=== PATIENT | male | born 1940 | race African-American/Black ===

== ENCOUNTER 2017-06-26 11:45 | Inpatient (IN) | payer OTHER, MEDICARE ==
[2017-06-26] MEDS ORDERED: METHYLPREDNISOLONE 125 MG INJ ONE (12:25)
[2017-06-26 12:26] LABS: Absolute Lymphocytes (CBC) 0.6 K/uL (0.7-4.9); Absolute Monocytes 0.9 K/uL (0.1-1.3); Absolute Neutrophil 4.7 K/uL (1.8-8.0); Basophils % 0.8 % (0-1.3); Eosinophils % 3.1 % (0-4.4); Hematocrit 28.7 % (39.6-49.0); Lymphocytes % 9.2 % (15.3-44.8); MCH 30.6 pg (27.0-35.0); MCV 98.7 fL (80-100); MPV 10.7 fL (7.6-11.3); Monocytes % 13.7 % (3.3-12.3); RBC Red Blood Cell Count 2.91 M/uL (4.33-5.43)
[2017-06-26] MEDS ORDERED: LEVALBUTEROL 1.25 MG/3 ML NEB ONE ×2 (12:26→16:28)
[2017-06-26 12:31] LABS: Protime INR 1.18
[2017-06-26 12:37] LABS: Potassium 3.7 mEq/L (3.6-5.0)
--- NOTE | 2017-06-26 12:39 | EKG ---
Test Date: 2017-06-26 Test Time: 11:48:37 Coal Miner: BARBARA MEASUREMENT RESULTS: Intervals: Rate: 111 OR: QRSD: 144 QT: 412 QTc: 560 Kersey: P: 2 OR: QRS: -89 T: 64 INTERPRETIVE STATEMENTS: Atrial-sensed ventricular-paced rhythm tracking sinus tachycardia Biventricular pacemaker detected Abnormal ECG Compared to ECG 06/17/2017 06:36:18 Sinus tachycardia has replaced sinus rhythm Electronically Signed On 06-26-17 12:39:20 CDT by Thomas Middleton
[2017-06-26 12:45] LABS: Albumin 3.5 g/dL (3.2-5.5); Bilirubin Direct 0.1 mg/dL (0-0.2); Bilirubin Total 0.7 mg/dL (0.3-1.2); Magnesium 1.9 mg/dL (1.8-2.5); Protein, Total 7.1 g/dL (6.0-8.3)
--- NOTE | 2017-06-26 12:47 | RAD REPORT ---
EXAM DESCRIPTION: RAD - Chest Single View - 06/26/2017 12:38 pm CLINICAL HISTORY: Difficulty breathing COMPARISON: 06/17/2017 FINDINGS: Portable technique limits examination quality. Mild interstitial pulmonary edema suspected. Linear opacity in the right mid lung noted. The heart is moderately enlarged in size. Multilead pacer/defibrillator device is present. Tracheostomy tube is i dentified. No displaced fractures. IMPRESSION: Mild CHF/ volume overload pattern. Linear opacity in the right mid lung may represent at electasis or early developing pneumonia.
--- NOTE | 2017-06-26 14:49 | ER ---
Nurse's Notes [facility] Name: Sergio Perez Age: 77 yrs Sex: Male : 1940 Arrival Date: 06/26/2017 Time: 11:48 Bed 19 Private MD: Diagnosis: Acute combined systolic (congestive) and diastolic (congestive) heart failure;Chronic kidney disease (CKD);Pneumonia due to other specified bacteria-suspected Presentation: 06/26 11:48 Presenting complaint: EMS states: c/o SOB since last night 11PM, went to dialysis this em morning and completed 4 hour treatment, pulled 3.3 L, EMS vitals: BP 110/63, BGL 179 gave A\T\A treatment. Transition of care: patient was received from another setting of care (ambulatory specialty care practice), [facility]. Onset of symptoms was June 25, 2017. Care prior to arrival: Medication(s) given: Albuterol Neb x 1, Atrovent Neb x 1. 11:48 Method Of Arrival: EMS: [facility] em 11:48 Acuity: KARLENE 3 hj Triage Assessment: 11:54 General: Appears uncomfortable, ill, Behavior is calm, cooperative, Reports SOB. Pain: em Denies pain. Historical: - Allergies: 11:54 Iodine; em 11:54 SHELLFISH; em - Home Meds: 11:54 allopurinol 300 mg Oral tab 1 tab once daily [Active]; amiodarone 100 mg Oral tab once em daily [Active]; Claritin 10 mg Oral tab 1 tab once daily [Active]; DuoNeb Inhl as needed [Active]; ferrous sulfate 325 mg (65 mg iron) Oral tab twice a day [Active]; nitroglycerin 0.4 mg SL subl 1 tab as needed [Active]; omeprazole 20 mg Oral TbEC daily [Active]; Plavix 75 mg Oral tab 1 tab once daily [Active]; Renvela Oral [Active]; Flonase Nasal daily [Active]; Vitamin D3 2,000 unit Oral cap daily [Active]; - PMHx: 11:54 CHF; COPD; Diabetes - NIDDM; Dialysis; ESRD; GERD; Gout; Hypertension; Pacemaker; with em defib; - Immunization history:: Adult Immunizations up to date. - Social history:: Smoking status: Patient/guardian denies using tobacco. Screenin:59 Abuse screen: Denies threats or abuse. Nutritional screening: No deficits noted. em Tuberculosis screening: No symptoms or risk factors identified. Fall Risk None identified. Assessment: 11:59 General: Appears uncomfortable, ill, Behavior is calm, cooperative. Pain: Denies pain. em Neuro: Level of Consciousness is awake, alert, obeys commands, Oriented to person, place, time, situation. Cardiovascular: Denies chest pain, nausea, vomiting, Heart tones S1 S2 present Capillary refill < 3 seconds Patient's skin is warm and dry. Respiratory: Airway is patent via trache Respiratory effort is even, unlabored, Breath sounds with wheezes bilaterally. Onset: The symptoms/episode began/occurred 11pm, the patient has moderate shortness of breath. GI: Abdomen is round Abd is soft and non tender X 4 quads. : No signs and/or symptoms were reported regarding the genitourinary system. EENT: No signs and/or symptoms were reported regarding the EENT system. Derm: Skin is intact, Skin is normal. Musculoskeletal: Range of motion: intact in all extremities. 12:00 Reassessment: i agree with the assessment of ALEXIS Marie;. hj 13:22 Reassessment: Patient appears in no apparent distress at this time. Patient and/or em family updated on plan of care and expected duration. Pain level reassessed. Patient is alert, oriented x 3, equal unlabored respirations, skin warm/dry/pink. Patient states symptoms have not improved. 14:20 Reassessment: Patient appears in no apparent distress at this time. Patient and/or em family updated on plan of care and expected duration. Pain level reassessed. Patient is alert, oriented x 3, equal unlabored respirations, skin warm/dry/pink. Patient states feeling better. Vital Signs: 11:57 BP 119 / 98; Pulse 107; Resp 26; Temp 98.9(O); Pulse Ox 99% on 2 lpm NC; Weight 139.25 em kg; Height 5 ft. 11 in. (180.34 cm); Pain 0/10; 12:45 BP 115 / 85; Pulse 108; Resp 26; Pulse Ox 99% on 2 lpm NC; em 13:32 BP 122 / 91; Pulse 114; Resp 24; Pulse Ox 97% on 2 lpm NC; em 14:01 BP 135 / 77; Pulse 105; Resp 26; Pulse Ox 100% on 2 lpm NC; em 15:00 BP 145 / 84; Pulse 104; Resp 24; Pulse Ox 99% on 2 lpm NC; Pain 0/10; em 16:15 BP 131 / 67; Pulse 103; Resp 18; Pulse Ox 100% on 2 lpm NC; Pain 0/10; em 11:57 Body Mass Index 42.82 (139.25 kg, 180.34 cm) em ED Course: 11:48 Patient arrived in ED. em 11:48 Frank Cole LVN is Primary Nurse. em 11:54 Colleen Salvador MD is Attending Physician. ma2 11:57 Arm band placed on. em 11:59 Patient has correct armband on for positive identification. Placed in gown. Bed in low em position. Side rails up X2. automotive brake adjuster on. Pulse ox on. NIBP on. 12:01 Tom Dyson PA is PHCP. jr8 12:02 Maintain EMS IV. Dressing intact. Good blood return noted. Site clean \T\ dry. Gauge \T\ em site: 20 G right hand. 12:04 EKG done, by client technologies specialist. reviewed by Tom ABREU. at1 14:08 Garcia Salazar MD is Hospitalizing Provider. jr8 14:31 Triage completed. hj 15:36 No provider procedures requiring assistance completed. em 17:23 Patient admitted, IV remains in place. em Administered Medications: 12:05 Drug: SOLU-Medrol 125 mg Route: IVP; Site: right forearm; hj 12:32 Follow up: Response: No adverse reaction hj 12:44 Follow up: Response: No adverse reaction em 12:10 Drug: Xopenex (3) 1.25 mg Route: Inhalation; em 12:44 Follow up: Response: No adverse reaction em 15:05 Drug: LevaQUIN 500 mg Volume: 100 ml; Route: IVPB; Infused Over: 60 mins; Site: right hj wrist; 16:15 Follow up: IV Status: Completed infusion; IV Intake: 100ml em 16:20 Drug: Xopenex (3) 1.25 mg Route: Inhalation; em 17:12 Follow up: Response: No adverse reaction; Wheezing diminished em Intake: 16:15 IV: 100ml; Total: 100ml. em Outcome: 14:08 Decision to Hospitalize by Provider. jr8 17:22 Admitted to Tele accompanied by tech, via stretcher, room 223, with oxygen, Report em called to Karen Marrero RN 17:22 Condition: good 17:22 Instructed on the need for admit, Demonstrated understanding of instructions. 18:05 Patient left the ED. em Signatures: Frank Cole, SPRAY RIG OPERATOR SPRAY RIG OPERATOR em Tom Dyson, BRADY PA jr8 Tamara salguero, windows security analyst EKG Tat1 Tristin Perdomo, RN RN Colleen Salvador MD MD ma2 Corrections: (The following items were deleted from the chart) 13:34 12:45 BP 115 / 85; Pulse 108bpm; Resp 26bpm; Pulse Ox 99% RA; em em
--- NOTE | 2017-06-26 14:49 | EDPHYS ---
Physician Documentation [facility] Name: Sergio Perez Age: 77 yrs Sex: Male : 1940 Arrival Date: 06/26/2017 Time: 11:48 Bed 19 Private MD: ED Physician Colleen Salvador HPI: 06/26 12:44 This 77 yrs old Black Male presents to ER via EMS with complaints of shortness of jr8 breath . 12:44 The patient has shortness of breath at rest. Onset: The symptoms/episode began/occurred jr8 acutely, yesterday. Duration: The symptoms are continuous, and are unchanged since they started. The patient's shortness of breath is aggravated by coughing, is alleviated by nothing. Associated signs and symptoms: The patient has no apparent associated signs or symptoms. Severity of symptoms: At their worst the symptoms were moderate in the emergency department the symptoms are unchanged. It is unknown whether or not the patient has had similar symptoms in the past. The patient has not recently seen a physician. Patient stated that he has a degree of shortness of breath in the past but that since last night has been much worse. Trach present . Historical: - Allergies: 11:54 Iodine; em 11:54 SHELLFISH; em - Home Meds: 11:54 allopurinol 300 mg Oral tab 1 tab once daily [Active]; amiodarone 100 mg Oral tab once em daily [Active]; Claritin 10 mg Oral tab 1 tab once daily [Active]; DuoNeb Inhl as needed [Active]; ferrous sulfate 325 mg (65 mg iron) Oral tab twice a day [Active]; nitroglycerin 0.4 mg SL subl 1 tab as needed [Active]; omeprazole 20 mg Oral TbEC daily [Active]; Plavix 75 mg Oral tab 1 tab once daily [Active]; Renvela Oral [Active]; Flonase Nasal daily [Active]; Vitamin D3 2,000 unit Oral cap daily [Active]; - PMHx: 11:54 CHF; COPD; Diabetes - NIDDM; Dialysis; ESRD; GERD; Gout; Hypertension; Pacemaker; with em defib; - Immunization history:: Adult Immunizations up to date. - Social history:: Smoking status: Patient/guardian denies using tobacco. ROS: 12:44 Eyes: Negative for injury, pain, redness, and discharge, ENT: Negative for injury, jr8 pain, and discharge, Neck: Negative for injury, pain, and swelling, Cardiovascular: Negative for chest pain, palpitations, and edema, Abdomen/GI: Negative for abdominal pain, nausea, vomiting, diarrhea, and constipation, Back: Negative for injury and pain, MS/Extremity: Negative for injury and deformity, Skin: Negative for injury, rash, and discoloration, Neuro: Negative for headache, weakness, numbness, tingling, and seizure. 12:44 Respiratory: Positive for cough, shortness of breath, wheezing. Exam: 12:44 Head/Face: Normocephalic, atraumatic. Eyes: Pupils equal round and reactive to light, jr8 extra-ocular motions intact. Lids and lashes normal. Conjunctiva and sclera are non-icteric and not injected. Cornea within normal limits. Periorbital areas with no swelling, redness, or edema. ENT: Nares patent. No nasal discharge, no septal abnormalities noted. Tympanic membranes are normal and external auditory canals are clear. Oropharynx with no redness, swelling, or masses, exudates, or evidence of obstruction, uvula midline. Mucous membranes moist. Neck: Trachea midline, no thyromegaly or masses palpated, and no cervical lymphadenopathy. Supple, full range of motion without nuchal rigidity, or vertebral point tenderness. No Meningismus. Abdomen/GI: Soft, non-tender, with normal bowel sounds. No distension or tympany. No guarding or rebound. No evidence of tenderness throughout. Back: No spinal tenderness. No costovertebral tenderness. Full range of motion. Skin: Warm, dry with normal turgor. Normal color with no rashes, no lesions, and no evidence of cellulitis. MS/ Extremity: Pulses equal, no cyanosis. Neurovascular intact. Full, normal range of motion. Neuro: Awake and alert, GCS 15, oriented to person, place, time, and situation. Cranial nerves II-XII grossly intact. Motor strength 5/5 in all extremities. Sensory grossly intact. Cerebellar exam normal. Normal gait. 12:44 Cardiovascular: Rate: tachycardic, Rhythm: regular, Pulses: Pulses are 2+ in right radial artery and left radial artery. Heart sounds: normal, normal S1and S2, no S3 or S4, no murmur, no rub, no gallop, Edema: 2+ edema to level of left midcalf, left ankle, left foot, right midcalf, right ankle and right foot, JVD: is not appreciated. 12:44 Respiratory: mild respiratory distress is noted, Respirations: tachypnea, Breath sounds: wheezing: expiratory that is mild, is heard diffusely. Vital Signs: 11:57 BP 119 / 98; Pulse 107; Resp 26; Temp 98.9(O); Pulse Ox 99% on 2 lpm NC; Weight 139.25 em kg; Height 5 ft. 11 in. (180.34 cm); Pain 0/10; 12:45 BP 115 / 85; Pulse 108; Resp 26; Pulse Ox 99% on 2 lpm NC; em 13:32 BP 122 / 91; Pulse 114; Resp 24; Pulse Ox 97% on 2 lpm NC; em 14:01 BP 135 / 77; Pulse 105; Resp 26; Pulse Ox 100% on 2 lpm NC; em 15:00 BP 145 / 84; Pulse 104; Resp 24; Pulse Ox 99% on 2 lpm NC; Pain 0/10; em 16:15 BP 131 / 67; Pulse 103; Resp 18; Pulse Ox 100% on 2 lpm NC; Pain 0/10; em 11:57 Body Mass Index 42.82 (139.25 kg, 180.34 cm) em MDM: 11:54 Medical screening is not applicable. ma2 14:07 Data reviewed: vital signs, nurses notes, lab test result(s), EKG, radiologic studies, [facility] plain films, and as a result, I will admit patient. Data interpreted: Pulse oximetry: on 3L(s) per nasal canula, is 97 %. Interpretation: normal. Counseling: I had a detailed discussion with the patient and/or guardian regarding: the historical points, exam findings, and any diagnostic results supporting the discharge/admit diagnosis, lab results, radiology results, the need for further work-up and treatment in the hospital. Physician consultation: A Martin CHOWDHURY was called at 14:07, was contacted at 14:08, regarding admission, to the telemetry unit. consult, patient's condition. 06/26 12:02 Order name: Basic Metabolic Panel [facility] 06/26 12:02 Order name: BNP [facility] 06/26 12:02 Order name: CBC with Diff 06/26 12:02 Order name: LFT's 06/26 12:02 Order name: Magnesium [facility] 06/26 12:02 Order name: PT-INR [facility] 06/26 12:02 Order name: Troponin (emerg Dept Use Only) [facility] 06/26 12:28 Order name: CBC with Automated Diff; Complete Time: 12:39 EDMS 06/26 12:32 Order name: Protime (+INR); Complete Time: 12:39 EDMS 06/26 12:38 Order name: Basic Metabolic Panel; Complete Time: 12:46 EDMS 06/26 12:44 Order name: Troponin (Emerg Dept Use Only); Complete Time: 12:46 EDMS 06/26 12:46 Order name: Liver (Hepatic) Function; Complete Time: 12:46 EDMS 06/26 12:46 Order name: Magnesium; Complete Time: 12:46 EDMS 06/26 12:48 Order name: BNP B-Type Natriuretic Peptide; Complete Time: 13:40 EDMS 06/26 12:02 Order name: XRAY Chest (1 view) [facility] 06/26 12:02 Order name: EKG; Complete Time: 12:03 06/26 12:02 Order name: Cardiac monitoring; Complete Time: 12:05 [facility] 06/26 12:02 Order name: EKG - Nurse/Tech; Complete Time: 12:05 [facility] 06/26 12:02 Order name: IV Saline Lock; Complete Time: 12:05 [facility] 06/26 12:02 Order name: Labs collected and sent; Complete Time: 15:48 [facility] 06/26 12:02 Order name: O2 Per Protocol; Complete Time: 12:05 [facility] 06/26 12:02 Order name: O2 Sat Monitoring; Complete Time: 12:05 [facility] 06/26 12:47 Order name: RAD; Complete Time: 13:40 EDMS 06/26 14:04 Order name: Blood Culture Adult (2) [facility] Administered Medications: 12:05 Drug: SOLU-Medrol 125 mg Route: IVP; Site: right forearm; hj 12:32 Follow up: Response: No adverse reaction hj 12:44 Follow up: Response: No adverse reaction em 12:10 Drug: Xopenex (3) 1.25 mg Route: Inhalation; em 12:44 Follow up: Response: No adverse reaction em 15:05 Drug: LevaQUIN 500 mg Volume: 100 ml; Route: IVPB; Infused Over: 60 mins; Site: right hj wrist; 16:15 Follow up: IV Status: Completed infusion; IV Intake: 100ml em 16:20 Drug: Xopenex (3) 1.25 mg Route: Inhalation; em 17:12 Follow up: Response: No adverse reaction; Wheezing diminished em Disposition: 06/27 07:10 Co-signature as Attending Physician, Colleen Salvador MD. ma2 Disposition: 06/26/17 14:08 Hospitalization ordered by Garcia Salazar for Inpatient Admission. Preliminary diagnosis are Acute combined systolic (congestive) and diastolic (congestive) heart failure, Chronic kidney disease (CKD), Pneumonia due to other specified bacteria - suspected. - Bed requested for Telemetry/MedSurg (Inpatient). - Status is Inpatient Admission. em - Condition is Stable. - Problem is new. - Symptoms have improved. UTI on Admission? No Signatures: Dispatcher [employer] EDMarie Moncada Edgar, SUPERINTENDENT DRILLING SUPERINTENDENT DRILLING em Tom Dyson, PA PA jr8 Tristin Perdomo RN RN hj Alzahri, Mohammad, MD MD ma2 Corrections: (The following items were deleted from the chart) 06/26 15:36 12:02 Urine Dipstick-Ancillary ordered. jr8 em
[2017-06-26] MEDS ORDERED: Levofloxacin500mg IV 500 MG/100 ML BAG IV ONE (15:19)
[2017-06-26] MEDS ORDERED: D50W 25 GM/50 ML SYRINGE IV PRN (17:28)
[2017-06-26] MEDS ORDERED: GLUCAGON 1 MG/VIAL IM PRN (17:28)
[2017-06-26] MEDS ORDERED: ONDANSETRON 4 MG/2 ML VIAL IV PRN (17:28)
[2017-06-26] MEDS ORDERED: ACETAMINOPHEN 500 MG TAB PO PRN (17:28)
[2017-06-26] MEDS: INSULIN -REGULAR HUMAN 50 UNIT/0.5 ML ML SQ SCH ×2 (18:19→20:24)
[2017-06-26] MEDS: FLUTICASONE 50MCG NASAL SPRAY NAS SCH (21:00)
[2017-06-26] MEDS ORDERED: NITROGLYCERIN 0.4 MG/TAB SL SCH (21:00)
[2017-06-26] MEDS: ALBUTEROL 2.5 MG/3 ML NEB SOL NEB PRN (21:30)
[2017-06-26] MEDS: IPRATROPIUM BROM 0.5MG/2.5ML NEB PRN (21:30)
[2017-06-26] MEDS: ASPIRIN EC 81 MG TAB PO SCH (21:55)
[2017-06-26] MEDS: SEVELAMER CARBONATE 800 MG TABLET PO SCH (21:55)
[2017-06-26] MEDS: HEPARIN 5000 UNIT/ML 1 ML VIAL SQ SCH (21:56)
[2017-06-26] MEDS: PANTOPRAZOLE 40MG TABLET PO SCH (21:56)
--- NOTE | 2017-06-27 02:43 | HP ---
Date of Admission: 06/26/2017 Chief Complaint: Shortness of breath. History Of Present Illness: This is a 77-year-old male patient with COPD, hypertension, type 2 diabe donell mellitus, end-stage renal disease, on hemodialysis, who came into emergency room with shortness o f breath. The patient goes for dialysis on Thursday, Thursday, Thursday and says that this week when he went for dialysis on Thursday and Thursday, he did not get a full dialysis and it was cut short becau se of his blood pressure was dropping low. Last night, he had shortness of breath. He thought about coming to the emergency room, but he did not and this morning, he went for his dialysis and soon aft er dialysis was started within short time, he was sent to the emergency room because he kept on compl aining of shortness of breath. Denies any fever, chills. No nausea. No vomiting. He has some palmira r to yellowish colored drainage from his tracheostomy tube. After he was evaluated in the emergency room, he was admitted to the hospital under my service. I saw him in the emergency room. Allergies: TO IODINE. Medications: List reviewed. Review of Systems: Respiratory: As mentioned above. All other systems reviewed and negative. Social History: Negative for smoking or alcohol use. Family History: Significant for asthma, hypertension, and breast cancer. Past Surgical History: Significant for AICD placement in June 2014, tracheostomy many years ago. Past Medical History: Significant for end-stage renal disease, on hemodialysis; COPD; chronic systol ic congestive heart failure with ejection fraction around 20%-25%; anemia of chronic kidney disease; sleep apnea; coronary artery disease; diabetes mellitus, allergic rhinitis; diverticulosis; osteoarth ritis at multiple sites; gastroesophageal reflux disease; prostate cancer; cervical spondylosis with radiculopathy. Physical Examination: Vital Signs: When he came into the emergency room, temperature 98.9, pulse 107, respiratory rate 26, blood pressure 119/98, oxygen saturation 99%. Height 5 feet 11 inches. Weight 307 pounds. General: Awake, alert, oriented, not in distress. HEENT: Head atraumatic, normocephalic. Conjunctivae nonerythematous. Sclerae white. Mouth, no thr ush or edema noted. Ears/Nose, no mass, lesion, discharge noted. Neck: Supple. No JVD, lymph nodes, bruit, thyromegaly noted. Lungs: The patient is in mild respiratory distress when I saw him in emergency room when he was talk ing. Bilateral good equal air entry. Presence of some rales noted in lung [place]. Heart: Normal heart sounds, no murmur or gallop. Abdomen: Soft, bowel sounds normal. No guarding, rigidity, tenderness, mass, hepatosplenomegaly, dis tention, or bruit noted. Extremities: Bilateral grade 1 edema. No calf tenderness. Skin: No rash, ulcer, cellulitis. Lymphatics: No lymph node enlargement in neck, supraclavicular, infraclavicular region. Neuro: No focal neurological deficit. Chest: Unremarkable. External Genitalia: Deferred. Rectal: Deferred. Laboratory Data: White count 6.4, hemoglobin 8.9, platelets 127. INR 1.18. Sodium 138, potassium 3 .7, chloride 102, bicarb 25, BUN 14, creatinine 4.53, glucose 158. Liver function tests unremarkable . Troponin 0.05. Chest x-ray, mild CHF/volume overload pattern. Linear opacity, right mid lung, may represent atelect asis or early developing pneumonia. Electrocardiogram; atrial sensed ventricular paced rhythm tracki ng, sinus tachycardia, biventricular pacemaker detected. Impression: 1.Volume overload. 2.End-stage renal disease, on hemodialysis. 3.Rule out pneumonia. 4.Anemia due to chronic kidney disease. 5.Chronic obstructive pulmonary disease. 6.Chronic systolic congestive heart failure. 7.Coronary artery disease. 8.Diabetes mellitus, type 2. 9.Osteoarthritis, multiple sites. 10.Diverticulosis. 11.Sleep apnea. 12.Gastroesophageal reflux disease. 13.Hypertension. 14.Prostate cancer. 15.Cervical spondylosis. Plan: We will go ahead and admit the patient to hospital for further evaluation and management of th is problem. The patient is appropriate for inpatient and is expected to spend 2 midnights in the [facility] pital. Continue home medications per order. Consult spraying machine operator for dialysis needs and we will giv e DVT prophylaxis per order. Empiric antibiotic will be given for possible pneumonia. We are not elias re whether it is atelectasis or pneumonia, but we will follow up with another chest x-ray and start e mpiric antibiotics. DVT prophylaxis will be given per order. I will see him tomorrow for followup. ODESSA/PATRICK Voice ID: [id number]
--- NOTE | 2017-06-27 03:04 | CON ---
Date of Consultation: 06/26/2017 Chief Complaint: End-stage renal disease on dialysis. History Of Present Illness: The patient has multiple medical problems including history of end-stage renal disease, he has been dialyzed 3 times per week. He has congestive heart failure with diastolic dysfunction. He presented to the hospital because of shortness of breath. He came to Dialysis Unit and received dialysis with ultrafiltration to treat fluid overload although after dialysis, shortness of breath has not resolved completely. He has history of trach and previous multiple admissions for congestive heart failure and pneumonia. The patient is admitted to the hospital for suspected bacterial pneumonia. He is complaining of nonproductive cough and some subjective fever. On arrival to the hospital, blood pressure was 110/63. Review of Systems: Constitutional: Complains of generalized weakness. Eyes: Denies vision changes. Ears, Nose, Mouth, and Throat: Denies sore throat or earache. Respiratory: Has shortness of breath and complaining of PND, orthopnea. Cardiovascular: Denies chest pain or palpitations. Denies syncope. Gastrointestinal: Denies nausea or vomiting. Genitourinary: Denies dysuria, hematuria. Musculoskeletal: Denies gout, has history of arthritis, degenerative disk disease. All other system reviewed and all are negative. Past Medical History: Obesity, hypertension, peptic ulcer disease, renal osteodystrophy, anemia in CKD, end-stage renal disease, diabetes mellitus with renal manifestation resulted in end-stage renal disease, congestive heart failure, diastolic dysfunction, chronic with acute exacerbation requiring multiple admissions to the hospital, hypoxemic respiratory failure. The patient has a trach, pacemaker, and defibrillator. Social History: Denies tobacco or alcohol, illicit drugs. Family History: Hypertension and diabetes. Physical Examination: Vital Signs: Blood pressure 119/98, temperature is 98.9, SpO2 is 97% on 2 L nasal cannula. Heart rate is up to 114. Eyes: Anicteric sclerae, EOMI. Ears, Nose, Mouth, and Throat: Oral mucosa moist. No pallor. Neck: Supple. No JVD. No bruits. Lungs: Crackles bilaterally present. Rhonchi present. Heart: S1 and S2. A 3/6 systolic murmur in left lower sternal border. Abdomen: Obese and obtunded. No rebound no guarding. No flank tenderness. Extremities: Edema in both legs. Chronic dermatitis in both legs, no oozing Skin: Chronic dermatitis in both legs. No oozing. No drainage. Neurologic: Moving extremities. Cranial nerves intact. Psychiatric: Alert and oriented x3. Normal affect. Chest x-ray showed mild interstitial pulmonary edema, volume overload and mild CHF, and early pneumonia with linear opacity in the right mid-lung, which may also represent partial atelectasis. Laboratory Work: Hemoglobin 8.9, WBC 6.4, platelet count 127,000. Chemistries show glucose is 348, troponin 0.05, sodium 138, potassium 3.7, chloride 102, CO2 of 25, BUN 14, creatinine 4.53, calcium 8.9, total bilirubin 0.7, albumin 3.5, total protein 7.1. Impression And Plan: 1. End stage renal disease, fluid overload, congestive heart failure, acute-on -chronic with diastolic dysfunction. The patient will continue low-sodium diet p.o. fluid restriction, dialysis with ultrafiltration will be done daily. Today , the patient had dialysis with ultrafiltration. Continue oxygenation with nasal cannula. Monitor oxygenation, adjust oxygen supply according to level of saturation. 2. Diabetes mellitus. Continue insulin. Adjust Insulin per sliding scale 3. Renal osteodystrophy. Continue renal diet and binders. Monitor phosphorus level and adjust medications according to lab results 4. Pneumonia. Continue antibiotics with renally adjusted dose. Check blood culture to rule out bacteremia. 5. Fluid overload with generalized edema, congestive heart failure with acute exacerbation and associated with hypoxemia, continue po fluid restriction and dialysis with ultrafiltration as needed to control volemia, monitor blood pressure during hemodialysis and adjust ultrafiltration goal, advance Midodrine to prevent intradialytic hypotension. 6. Congestive heart failure with exacerbation, check cardiac work-up to rule out acute myocardial infarction, monitor troponin level, check blood culture to screen for endocarditis. ALEXI/PATRICK Voice ID: [id number] Report ID: [id number] ABEL
[2017-06-27] MEDS: ALBUTEROL 2.5 MG/3 ML NEB SOL NEB PRN ×4 (03:25→20:02)
[2017-06-27] MEDS: IPRATROPIUM BROM 0.5MG/2.5ML NEB PRN ×4 (03:25→20:02)
[2017-06-27 04:43] LABS: Absolute Lymphocytes (CBC) 0.5 K/uL (0.7-4.9); Absolute Monocytes 0.4 K/uL (0.1-1.3); Absolute Neutrophil 6.5 K/uL (1.8-8.0); Basophils % 0.3 % (0-1.3); Hematocrit 30.2 % (39.6-49.0); Lymphocytes % 6.8 % (15.3-44.8); MCH 30.5 pg (27.0-35.0); MCV 97.7 fL (80-100); MPV 10.6 fL (7.6-11.3); Monocytes % 5.5 % (3.3-12.3); RBC Red Blood Cell Count 3.09 M/uL (4.33-5.43)
[2017-06-27 05:06] LABS: Blood Morphology Comment NOT SEEN (NOT SEEN); Platelet Estimate ADEQ; Urine White Blood Cell Casts OK
[2017-06-27 05:10] LABS: Potassium 4.9 mEq/L (3.6-5.0)
[2017-06-27] MEDS: FLUTICASONE 50MCG NASAL SPRAY NAS SCH ×3 (08:15→21:53)
[2017-06-27] MEDS: VITAMIN D 1000 UNIT TAB PO SCH (08:28)
[2017-06-27] MEDS: ALLOPURINOL 100 MG TAB PO SCH (08:28)
[2017-06-27] MEDS: PANTOPRAZOLE 40MG TABLET PO SCH ×2 (08:28→21:54)
[2017-06-27] MEDS: LORATADINE 10 MG TAB PO SCH (08:28)
[2017-06-27] MEDS: ASPIRIN EC 81 MG TAB PO SCH ×2 (08:28→21:54)
[2017-06-27] MEDS: AMIODARONE HCL 200 MG TAB PO SCH (08:28)
[2017-06-27] MEDS: HEPARIN 5000 UNIT/ML 1 ML VIAL SQ SCH ×2 (08:28→21:54)
[2017-06-27] MEDS: CLOPIDOGREL 75 MG TABLET PO SCH (08:28)
[2017-06-27] MEDS: SEVELAMER CARBONATE 800 MG TABLET PO SCH ×3 (08:28→21:53)
[2017-06-27] MEDS: CEFTRIAXONE/SWI 1gm 1 GM/10 ML SYR IV SCH (08:29)
[2017-06-27] MEDS: INSULIN -REGULAR HUMAN 50 UNIT/0.5 ML ML SQ SCH ×4 (08:30→21:00)
[2017-06-27] MEDS ORDERED: CEFTRIAXONE 1 GM/NS 50 ML 1 GM/50 ML BAG IV SCH (09:00)
--- NOTE | 2017-06-27 12:43 | PN ---
Date of Progress Note: 06/27/2017 Subjective: The patient was seen this morning for followup. No new complaints or problems reported by him except cough and shortness of breath. Objective: Vital Signs: Reviewed. HEENT: Examination unremarkable. Lungs: Bilateral scattered rales noted. Not in any respiratory distress. Heart: Sounds normal. Abdomen: Soft, bowel sounds normal. No guarding, rigidity, tenderness, or distention. Extremities: Bilateral leg edema, unchanged from yesterday. Laboratory Data: White count 7.4, hemoglobin 9.4 platelets 155. Sodium 135, potassium 4.9, chloride 96, bicarb 24. BUN 32, creatinine 6.67, glucose 243 BNP 490. Impression: 1.Volume overload. 2.End stage renal disease, on hemodialysis. 3.Anemia due to chronic kidney disease. 4.Chronic obstructive pulmonary disease. 5.Chronic systolic congestive heart failure. Plan: The patient was admitted yesterday, and I was hoping that he would get dialysis yesterday but hospital receptionist did not dialyze him yesterday and this morning, hospital receptionist will send him for dialysis. i did explain hospital receptionist about Thursday and Thursday of this week, the patient did not have a comp lete dialysis because of drop in his blood pressure and that is probably the reason why he resulted i n this fluid overload problem. So, hospital receptionist will look into that and they will start him on midod rine. She will dialyze him on a daily basis until he is ready for discharge, which probably will hap pen sometime next week on Thursday or Thursday, depending on patient's condition. We will continue home medications per order. I will see him tomorrow for followup. ODESSA/MODL Voice ID: [id number] Report ID: [id number]
[2017-06-27] MEDS ORDERED: MIDODRINE HCL 5 MG TABLET PO PRN (18:22)
[2017-06-27] MEDS: GUAIFENESIN/CODEINE 5ML UCUP PO PRN (23:15)
--- NOTE | 2017-06-27 23:47 | PN ---
Date of Progress Note: 06/27/2017 Chief Complaint: Severe dyspnea, hypoxemia, acute on chronic respiratory failure with history of diastolic dysfunction. Subjective: The patient presented to the hospital after dialysis. He was short of breath. The patient has history of intradialytic hypotension. The patient is to have dialysis today with ultrafiltration to control volemia and provide management for decompensated congestive diastolic heart failure. The patient is on p.o. fluid restriction. The patient will have midodrine for blood pressure support during dialysis. Review of Systems: The patient is complaining of nonproductive cough. Denies fever, chills. He is complaining of legs edema. Objective: Lungs: Few rhonchi. Crackles bilaterally present. Heart: S1, S2. Abdomen: Soft, obese, nontender. No rebound. No guarding. Extremities: Edema present in both legs. Laboratory Data: Hemoglobin 9.4, WBC 7.4, platelet count 105,000. Sodium 135, potassium 4.9, chloride 96, CO2 24, BUN 32, creatinine 6.67, glucose 243. BNP 490. Chest x-ray showed CHF, volume overload pattern, linear opacity in the right mid lung, may represent atelectasis or early developing pneumonia. Impression And Plan: 1. Congestive heart failure, shortness of breath, possible pneumonia. Continue antibiotics. Continue p.o. fluid restriction and low-sodium diet. The patient has intradialytic hypotension. The patient may require midodrine for blood pressure support. 2. Hyperuricemia, gout. Continue allopurinol. Currently, the patient is asymptomatic. 3. Diastolic congestive heart failure and history of arrhythmia. Continue amiodarone. Recommend to check TSH level. 4. Diabetes mellitus with renal manifestation. Continue insulin. 5. Hypotension. Midodrine will be used with dialysis to facilitate ultrafiltration and to control volemia. 6. Renal osteodystrophy. Continue renal diet and adjust Renvela as needed. Monitor phosphorus level. I spent total 36 min including 26 min to coordinate care plan. ALEXI/PATRICK Voice ID: [id number] Report ID: [id number] ABEL
[2017-06-28] MEDS: IPRATROPIUM BROM 0.5MG/2.5ML NEB PRN ×2 (04:14→14:00)
[2017-06-28] MEDS: ALBUTEROL 2.5 MG/3 ML NEB SOL NEB PRN ×2 (04:14→14:00)
[2017-06-28] MEDS: GUAIFENESIN/CODEINE 5ML UCUP PO PRN ×4 (04:21→23:22)
[2017-06-28] MEDS: INSULIN -REGULAR HUMAN 50 UNIT/0.5 ML ML SQ SCH ×4 (07:30→21:00)
[2017-06-28] MEDS: ASPIRIN EC 81 MG TAB PO SCH ×2 (08:32→21:22)
[2017-06-28] MEDS: AMIODARONE HCL 200 MG TAB PO SCH (08:32)
[2017-06-28] MEDS: VITAMIN D 1000 UNIT TAB PO SCH (08:32)
[2017-06-28] MEDS: SEVELAMER CARBONATE 800 MG TABLET PO SCH ×3 (08:32→21:21)
[2017-06-28] MEDS: CEFTRIAXONE/SWI 1gm 1 GM/10 ML SYR IV SCH (08:33)
[2017-06-28] MEDS: PANTOPRAZOLE 40MG TABLET PO SCH ×2 (08:33→21:22)
[2017-06-28] MEDS: HEPARIN 5000 UNIT/ML 1 ML VIAL SQ SCH ×2 (08:33→21:22)
[2017-06-28] MEDS: ALLOPURINOL 100 MG TAB PO SCH (08:33)
[2017-06-28] MEDS: LORATADINE 10 MG TAB PO SCH (08:33)
[2017-06-28] MEDS: CLOPIDOGREL 75 MG TABLET PO SCH (08:33)
[2017-06-28] MEDS: FLUTICASONE 50MCG NASAL SPRAY NAS SCH ×2 (08:40→21:24)
[2017-06-28 09:18] LABS: Potassium 4.7 mEq/L (3.6-5.0)
[2017-06-28 09:20] LABS: Magnesium 2.1 mg/dL (1.8-2.5); Phosphorus 3.9 mg/dL (2.5-4.3)
--- NOTE | 2017-06-28 11:19 | RAD REPORT ---
EXAM DESCRIPTION: RAD - Chest Single View - 06/28/2017 10:17 am CLINICAL HISTORY: Chest pain, CHF COMPARISON: 06/26/2017, 06/17/2017 FINDINGS: Portable technique limits examination quality. Mild linear atelectasis is suspected in the right mid lung. The lungs otherwise grossly clear. The he art is mildly to moderately large in size with multilead pacer/defibrillator device. No displaced fra ctures.Tracheostomy tube is in place.
--- NOTE | 2017-06-28 11:56 | PN ---
Date of Progress Note: 06/28/2017 Subjective: Patient was seen this morning for followup. He was sleeping, arousable, not in any dist ress, had a dialysis yesterday and says that his shortness of breath is somewhat better since his dwight lysis. Last night, he requested some cough medication which was started. Objective: Vital Signs: Reviewed. HEENT: Unremarkable. Lungs: Bilateral improved air entry with some scattered wheezing and rales is diminished compared to before, not using accessory muscles of respiration. Heart: Sounds normal. Abdomen: Soft, bowel sounds normal. No guarding, rigidity, tenderness, or distention. Extremities: Bilateral leg edema unchanged. Assessment: 1.Volume overload. 2.End-stage renal disease, on hemodialysis. 3.Chronic systolic congestive heart failure. 4.Hypertension. 5.Anemia due to chronic kidney disease. 6.Rule out pneumonia. Plan: We will go ahead and continue current antibiotic, continue dialysis support per machine maintenance repairer yas jensen. We will see him tomorrow for followup. Fingerstick blood sugar readings reviewed. We will repe at chest x-ray probably tomorrow. ODESSA/MODL Voice ID: [id number] Report ID: [id number]
[2017-06-28] MEDS: MIDODRINE HCL 5 MG TABLET PO PRN (17:20)
--- NOTE | 2017-06-28 17:36 | EKG ---
Test Date: 2017-06-28 Test Time: 11:49:38 Bilingual Office Assistant: DANTE MEASUREMENT RESULTS: Intervals: Rate: 98 TN: 136 QRSD: 156 QT: 448 QTc: 571 [place]: P: 31 TN: 136 QRS: -90 T: 68 INTERPRETIVE STATEMENTS: Atrial-sensed ventricular-paced rhythm Compared to ECG 06/26/2017 11:48:37 Sinus tachycardia no longer present Electronically Signed On 06-28-17 17:36:10 CDT by Thomas Middleton
[2017-06-28 19:38] LABS: CKMB Creatine Kinase MB 5.7 ng/ml (0.3-4.0)
--- NOTE | 2017-06-28 23:51 | PN ---
Date of Progress Note: 06/28/2017 Chief Complaint: End-stage renal disease on dialysis, COPD exacerbation, congestive heart failure chronic and acute with diastolic dysfunction. History Of Present Illness: The patient was scheduled to have dialysis today with ultrafiltration. The patient received dialysis yesterday and fluid removal was somewhat limited because of intradialytic hypotension. Today, patient is scheduled to have midodrine trial dialysis. During dialysis patient developed sudden chest pain and received nitroglycerin. Cardiology consultation will be consulted for further workup. The patient has multiple medical problems including history of obesity, trach, chronic lymphedema. When presented to the hospital he was found to have pneumonia and is started on antibiotics. Review of Systems: The patient currently denies PND, orthopnea, has dyspnea with activity. Denies chest pain. Denies nausea, vomiting. Physical Examination: Lungs: Clear to auscultation bilaterally. Heart: S1 and S2. Abdomen: Soft, benign. Extremities: Edema present in both legs. Lab Work: Hemoglobin 9.4, WBC 7.4, platelets count is 155,000. Chemistry showed sodium 133, potassium 4.7, chloride 99, CO2 29, BUN is 37, creatinine 6.64, glucose 130, phosphorus 3.9, calcium 9.3, magnesium 2.1. CK level 150, troponin level 0.07. Impression And Plan: 1. End-stage renal disease. Dialysis will be scheduled for tomorrow with ultrafiltration. 2. Chest pain. The patient will follow up with cardiology. Troponin is 0.07 and monitor cardiac workup. 3. Intradialytic hypotension. Continue midodrine prior to dialysis to facilitate ultrafiltration. 4. Diastolic congestive heart failure, hypertensive heart disease. Continue p.o. fluid restriction, low sodium diet and ultrafiltration as needed. 5. Dialysis tomorrow with ultrafiltration , monitor blood pressure during dialysis, adjust ultrafiltration goal to prevent intradialytic hypotension. 6. Anemia and chronic kidney disease. Hemoglobin level is satisfactory. Monitor hemoglobin level. 7. Renal osteodystrophy. Continue renal diet and binders. I spent total 36 min including 26 min to coordinate care plan. ALEXI/PATRICK Voice ID: [id number] Report ID: [id number] ABEL
[2017-06-29] MEDS: ALBUTEROL 2.5 MG/3 ML NEB SOL NEB PRN ×2 (00:38→15:12)
[2017-06-29] MEDS: IPRATROPIUM BROM 0.5MG/2.5ML NEB PRN ×2 (00:38→15:12)
[2017-06-29] MEDS: GUAIFENESIN/CODEINE 5ML UCUP PO PRN ×3 (05:47→19:42)
[2017-06-29] MEDS: INSULIN -REGULAR HUMAN 50 UNIT/0.5 ML ML SQ SCH ×4 (07:30→21:00)
[2017-06-29] MEDS: LORATADINE 10 MG TAB PO SCH (08:12)
[2017-06-29] MEDS: AMIODARONE HCL 200 MG TAB PO SCH (08:12)
[2017-06-29] MEDS: ALLOPURINOL 100 MG TAB PO SCH (08:12)
[2017-06-29] MEDS: PANTOPRAZOLE 40MG TABLET PO SCH ×2 (08:12→21:32)
[2017-06-29] MEDS: CLOPIDOGREL 75 MG TABLET PO SCH (08:13)
[2017-06-29] MEDS: FLUTICASONE 50MCG NASAL SPRAY NAS SCH ×2 (08:13→21:32)
[2017-06-29] MEDS: ASPIRIN EC 81 MG TAB PO SCH ×2 (08:13→21:32)
[2017-06-29] MEDS: SEVELAMER CARBONATE 800 MG TABLET PO SCH ×3 (08:13→21:32)
[2017-06-29] MEDS: VITAMIN D 1000 UNIT TAB PO SCH (08:13)
[2017-06-29] MEDS: CEFTRIAXONE/SWI 1gm 1 GM/10 ML SYR IV SCH (08:14)
[2017-06-29] MEDS: HEPARIN 5000 UNIT/ML 1 ML VIAL SQ SCH ×2 (08:14→21:32)
[2017-06-29] MEDS: MIDODRINE HCL 5 MG TABLET PO PRN (08:15)
[2017-06-29 08:32] LABS: Potassium 4.6 mEq/L (3.6-5.0)
[2017-06-29] MEDS: MANNITOL 25% 12.5 GM/50 ML VIAL IV PRN (09:41)
--- NOTE | 2017-06-29 11:28 | CON ---
Chief Complaint: Chest pain. History Of Present Illness: Mr. Perez is 77. He is a chronically ill patient. He has end-stage h eart disease. Ejection fraction is very low. A 4-chamber dilation. He has a defibrillator. As we were evaluating him the first time, we discovered this several years ago. We knew he had normal [place] nary arteries. We did a cardiac cath. Since then, he has had nuclear stress test that also indicate s no CAD but severe heart disease with a nonischemic cardiomyopathy. Lately, he denies to me having chest pain. He came to the hospital, volume overloaded. He has had extra dialysis and seems to be f eeling well. He tends to get hypotensive sometimes. He has had troponin levels drawn that are 0.07, 0.05, and 0.04. His creatinine is 6.64. When he first came in, his creatinine was 4.53. Now the c reatinine is 7.72. Physical Examination: General: He is alert, oriented, pleasant, 5 feet 1 inches, 304 pounds. Lungs: Clear. Heart: Exam does not reveal a significant murmur. No friction rub. Abdomen: Soft. Extremities: Significant for 2 to 3+ edema. Diagnostic Data: An electrocardiogram reveals atrial sensed ventricular paced rhythm, uninterpretabl e for infarction injury or ischemia. Chest x-ray reveals mild linear atelectasis. He has a tracheos juancho tube in place. Impression: The patient's chest pain is probably noncoronary. I do not think we should engage in a stress test or a cardiac cath. I think treating him symptomatically nitroglycerin if it works would be wonderful, but I do not think we want to launch into an investigation for worsening ischemic heart disease. It has been done recently. Mr. Perez has not had this in the past. He is unlikely to h ave developed it now with his present situation. I think he got volume overloaded and has nonspecific mo st likely chest wall pain. SH/MODL Voice ID: [id number] Report ID: [id number]
--- NOTE | 2017-06-29 17:28 | PN ---
Date of Progress Note: 06/29/2017 Subjective: The patient was seen this morning for followup. He was lying in bed. Denied any compla ints. Yesterday, he had chest pain 2 different times, and each time he received nitroglycerin sublin gual x2 doses, so total 4 doses of nitroglycerin were use yesterday. He has not had any recurrence o f chest pain after that. Second time when he had chest pain when he was in dialysis and had dialysis for approximately 1 hour, after that his dialysis was discontinued per cleaning specialist as he says. Ovwalter knight, his breathing is better since he has received 2 sessions of dialysis during this hospitalizatio n. Objective: Vital Signs: Reviewed. HEENT: Unremarkable. Lungs: Clear to auscultation. Heart: Sounds normal. Abdomen: Soft, bowel sounds normal. No guarding, rigidity, tenderness, or distention. Extremities: Bilateral leg edema present. Laboratory Data: Troponin yesterday was 0.07, total CPK 150, MB 5.7. Today's chemistry was pending when I saw him this morning. Impression: 1.End-stage renal disease. 2.Congestive heart failure, chronic, systolic. 3.Chronic obstructive pulmonary disease. 4.Chest pain. 5.Diabetes mellitus. 6.Hypertension. 7.We will go ahead and consult Cardiology and follow up with machine lacer for further recommendation . Meanwhile, continue current medical management. Continue to follow up with cleaning specialist for dialy sis needs, and I will see him tomorrow for followup. 8.The patient's chest x-ray from yesterday showed evidence of atelectasis. No definite evidence of pneumonia, and he is on ceftriaxone, and we will continue that right now. ODESSA/MODL Voice ID: [id number] Report ID: [id number]
--- NOTE | 2017-06-29 22:42 | PN ---
Date of Progress Note: 06/29/2017 Chief Complaint: End-stage renal disease, on dialysis; congestive heart failure with diastolic dysfunction, acute on chronic. Subjective: The patient has been undergoing daily dialysis yesterday. He developed chest pain and discomfort, received nitroglycerin. Dialysis was terminated early. The patient today underwent dialysis with ultrafiltration and tolerated procedure very well. Cardiac workup is pending. Review of Systems: Denies fever, chills. Objective: Lungs: Few crackles at bases. Heart: S1, S2. Abdomen: Soft, benign, nontender. Extremities: Slight edema in both ankles. Laboratory Data: Blood work; hemoglobin 9.4, WBC 7.4, platelet count 155,000. Chemistries showed sodium 133, potassium 4.7, chloride 99, CO2 29, BUN 37, creatinine 6.64, glucose 130, phosphorus 3.9. Impression And Plan: 1. End-stage renal disease. Continue dialysis as needed. The patient although had dialysis 3 times per week. He may need extra dialysis session with ultrafiltration to control volemia and provide management for congestive heart failure. 2. Chest pain. The patient is undergoing workup to rule out acute coronary syndrome. 3. Intradialytic hypotension. The patient will continue midodrine for blood pressure support during dialysis and to facilitate ultrafiltration. 4. Diastolic congestive heart failure, hypertensive heart disease. Continue p.o. fluid restriction and low-sodium diet. Continue dialysis with ultrafiltration to control volemia. 5. Anemia of chronic kidney disease. Hemoglobin level satisfactory. Monitor hemoglobin level. I spent total 36 min to coordinate care plan. PETER Voice ID: [id number] Report ID: [id number] ABEL
[2017-06-30] MEDS: IPRATROPIUM BROM 0.5MG/2.5ML NEB PRN ×3 (03:35→20:30)
[2017-06-30] MEDS: ALBUTEROL 2.5 MG/3 ML NEB SOL NEB PRN ×3 (03:35→20:30)
[2017-06-30] MEDS: GUAIFENESIN/CODEINE 5ML UCUP PO PRN ×3 (03:46→21:07)
[2017-06-30] MEDS: INSULIN -REGULAR HUMAN 50 UNIT/0.5 ML ML SQ SCH ×4 (08:48→21:00)
[2017-06-30] MEDS: CEFTRIAXONE/SWI 1gm 1 GM/10 ML SYR IV SCH (08:48)
[2017-06-30] MEDS: VITAMIN D 1000 UNIT TAB PO SCH (08:48)
[2017-06-30] MEDS: PANTOPRAZOLE 40MG TABLET PO SCH ×2 (08:48→21:07)
[2017-06-30] MEDS: LORATADINE 10 MG TAB PO SCH (08:48)
[2017-06-30] MEDS: CLOPIDOGREL 75 MG TABLET PO SCH (08:48)
[2017-06-30] MEDS: ASPIRIN EC 81 MG TAB PO SCH ×2 (08:48→21:07)
[2017-06-30] MEDS: SEVELAMER CARBONATE 800 MG TABLET PO SCH ×3 (08:48→21:07)
[2017-06-30] MEDS: ALLOPURINOL 100 MG TAB PO SCH (08:48)
[2017-06-30] MEDS: FLUTICASONE 50MCG NASAL SPRAY NAS SCH ×2 (08:49→21:07)
[2017-06-30] MEDS: HEPARIN 5000 UNIT/ML 1 ML VIAL SQ SCH ×2 (08:49→21:08)
[2017-06-30] MEDS: AMIODARONE HCL 200 MG TAB PO SCH (09:02)
--- NOTE | 2017-06-30 18:41 | PN ---
Date of Progress Note: 06/30/2017 Mr. Perez was seen, has been followed by Dr. Middleton for end-stage renal disease, end-stage cardiomy opathy, AICD, history of normal coronaries. He came in with chest wall pain and congestive heart fina lure treatment, getting hemodialysis, is improving, but still short of breath. He is getting his hem odialysis later on today. No further cardiac recommendation. Continue present regimen. We will sig n off his case and be available for treatment. He can go home whenever it is okay with Dr. Salazar. HARPAL/PATRICK Voice ID: [id number] Report ID: [id number]
[2017-06-30 19:55] VITALS: O2SAT 100
--- NOTE | 2017-06-30 21:23 | PN ---
Date of Progress Note: 06/30/2017 Subjective: The patient was seen this morning for followup. No new complaints or problems reported by the patient. His breathing is much better, had dialysis yesterday. Brayan any new complaints. Objective: Vital Signs: Reviewed. HEENT: Unremarkable. Lungs: Clear to auscultation. No rhonchi. No rales. Heart: Heart sounds are normal. Abdomen: Soft, bowel sounds normal. No guarding, rigidity, tenderness or distention. Extremities: No leg edema. Impression: 1.End-stage renal disease. 2.Congestive heart failure, chronic, systolic. 3.Chronic obstructive pulmonary disease. 4.Hypertension. Plan: Continue current medications. Continue to follow with dials supervisor for dialysis and the patie nt probably will have dialysis session today and may be tomorrow. After tomorrow's dialysis, if okay with dials supervisor, we will plan to discharge him to go home. The patient was able to tolerate that session of dialysis yesterday without any problem. Cardiology consultation is appreciated and no fur ther intervention or recommendation requested by the asphalt heater operator. ODESSA/MODL Voice ID: [id number] Report ID: [id number]
[2017-06-30] MEDS ORDERED: EPOETIN ALFA 10,000 UNIT/ML VIAL IV SCH (22:30)
--- NOTE | 2017-07-01 00:37 | PN ---
Date of Progress Note: 06/30/2017 Subjective: The patient's shortness of breath has been subsided. No nausea. No vomiting. The bloo d pressure has been stable. Physical Examination: Vital Signs: Blood pressure of 112/62, pulse of 79, afebrile. Chest: Basal crackles. Has tracheostomy. Heart: S1, S2. Systolic murmur. Abdomen: Soft and nontender. EXTREMITIES: Plus edema. Laboratory Data: WBC 7.4, H and H 9.4/30.2, platelet 165. Sodium 133, potassium 4.6, bicarb 28, BUN 46, creatinine 7.7 calcium 8.8. Chest x-ray, congestion with effusion in the major fissure. Medications: Current medications the patient is on include: 1.Aspirin. 2.Ceftriaxone. 3.Loratadine. 4.Midodrine 10 mg before dialysis. 5.Plavix. 6.Amiodarone. 7.Nitroglycerin. 8.Renvela. 9.Zofran. Assessment And Plan: 1.End-stage renal disease. Still the patient is on the wet side. I am going to continue to challen ge the patient on the dialysis hopefully tomorrow. We will dialyze the patient on sodium module and I again challenge the patient and we will follow up. Hopefully after the dialysis, the patient will be able to be discharged. 2.Hypertension, currently hypotension. We will continue p.r.n. midodrine, hold all blood pressure m edications. 3.Congestive heart failure. As above, we will challenge the patient. 4.Anemia. Resume the Epogen. 5.Chronic obstructive pulmonary disease exacerbation. Will follow up with Primary and Pulmonary. ROLANDO/MODL Voice ID: [id number] Report ID: [id number]
[2017-07-01 04:49] LABS: HBsAG Nonreactive (Nonreactive)
[2017-07-01 05:15] VITALS: BMI 42.4
[2017-07-01] MEDS: GUAIFENESIN/CODEINE 5ML UCUP PO PRN ×2 (06:19→15:22)
[2017-07-01] MEDS: ALBUTEROL 2.5 MG/3 ML NEB SOL NEB PRN (06:32)
[2017-07-01] MEDS: IPRATROPIUM BROM 0.5MG/2.5ML NEB PRN (06:32)
[2017-07-01] MEDS: ALLOPURINOL 100 MG TAB PO SCH (06:45)
[2017-07-01] MEDS: INSULIN -REGULAR HUMAN 50 UNIT/0.5 ML ML SQ SCH ×2 (07:30→11:30)
[2017-07-01] MEDS: SEVELAMER CARBONATE 800 MG TABLET PO SCH ×2 (08:28→13:16)
[2017-07-01] MEDS: CLOPIDOGREL 75 MG TABLET PO SCH (08:28)
[2017-07-01] MEDS: ASPIRIN EC 81 MG TAB PO SCH (08:29)
[2017-07-01] MEDS: VITAMIN D 1000 UNIT TAB PO SCH (08:29)
[2017-07-01] MEDS: LORATADINE 10 MG TAB PO SCH (08:29)
[2017-07-01] MEDS: AMIODARONE HCL 200 MG TAB PO SCH (08:29)
[2017-07-01] MEDS: HEPARIN 5000 UNIT/ML 1 ML VIAL SQ SCH (08:29)
[2017-07-01] MEDS: PANTOPRAZOLE 40MG TABLET PO SCH (08:29)
[2017-07-01] MEDS: CEFTRIAXONE/SWI 1gm 1 GM/10 ML SYR IV SCH (08:31)
[2017-07-01] MEDS: FLUTICASONE 50MCG NASAL SPRAY NAS SCH (08:31)
[2017-07-01] MEDS: MIDODRINE HCL 5 MG TABLET PO PRN (10:49)
[2017-07-01] MEDS: MANNITOL 25% 12.5 GM/50 ML VIAL IV PRN (12:17)
[2017-07-01 14:02] VITALS: BP 131/66; TEMP 97.5
--- NOTE | 2017-07-01 20:15 | PN ---
Date of Progress Note: 07/01/2017 Subjective: The patient doing better, still some shortness of breath. The patient seen on dialysis. Physical Examination: Vital Signs: Blood pressure 105/70, pulse of 88. Chest: Crackles bilateral base. Heart: S1, S2. Regular. Abdomen: Soft. Nontender. Extremities: Plus edema. Laboratory Data: H and H 9.4/30.2, sodium 133, potassium 4.6, bicarb 28, BUN 46, creatinine of 7, ca lcium 8.8. Medications: Current medications the patient on include: 1.Allopurinol. 2.Amiodarone. 3.Plavix. 4.Epogen. 5.Heparin. 6.Ipratropium. 7.Loratadine. 8.Zofran. 9.Renvela. Assessment And Plan: 1.End-stage renal disease, over volume. We will challenge. We will utilize the blood pressure for ultrafiltration and use sodium module and low temperature, and we will follow up. We will target for 3 L. 2.Hypertension. Currently hypotension. We will use p.r.n. midodrine. 3.Chronic obstructive pulmonary disease exacerbation. We will follow up with the primary. 4.Congestive heart failure. We will establish better volume control with ultrafiltration today. ROLANDO/PATRICK Voice ID: [id number] Report ID: [id number]
--- NOTE | 2017-07-01 21:18 | DS ---
Date of Discharge: 07/01/2017 Disposition: Discharged to go home. Physical Examination: HEENT: Unremarkable. Lungs: Clear to auscultation. Heart: Sounds normal. Abdomen: Soft. Bowel sounds normal. No guarding, rigidity, tenderness, or distention. Extremities: No leg edema. Laboratory Data: Last white count, from 06/27/2017, 7.4, hemoglobin 9.4, platelets 155. Last chemis try from 06/29/2017, sodium 133, potassium 4.6, chloride 94, bicarb 28, BUN 46, creatinine 7.72. Tro ponin 0.05 and 0.04 on 2 different cardiac enzyme set. Liver function tests normal. Discharge Medications And Instructions: 1.Continue all prior home medications. 2.Follow up at my office per scheduled appointment and follow up with Dr. Carrasquillo this month or next mo [facility] regarding chest pain problem. 3.The patient to take midodrine as suggested by reading aide. Hospital Course: A 77-year-old male patient, who was admitted to the hospital with shortness of xiomara th complaints. Please see dictated H and P for more information. The patient came into emergency ro om on 06/26/2017 with the shortness of breath complaint and after he was evaluated, he was admitted t o the hospital. He normally goes for dialysis on Thursday, Thursday, Thursday and when he came in on with these complaints, we found out now that he was actually at dialysis center getting dialysis and he already had shortness of breath when he went there and he could not tolerate dialysis and wit hin short time after dialysis was started, he was sent to the emergency room. His previous 2 dialysi s sessions, which was Thursday and Thursday dialysis session, the patient reports that his dialysis wa s not a complete dialysis, because each time his blood pressure had dropped down, so they had to stop dialysis before they could complete it and so he got shorter sessions of dialysis twice and third ti me he ended up in the emergency room. He came into ER, was evaluated, admitted to the hospital with fluid overload situation. His reading aide was consulted and dialysis arrangements made by nephrolog ist and the patient received dialysis during this hospitalization and his shortness of breath problem improved significantly to the extent that now he feels like he is back to his normal baseline. He d id have chest pain over the weekend when he had this dialysis one time, it was in the morning, second time same day while he was getting dialysis he had chest pain and he was given nitroglycerin tablet. Cardiology consultation was obtained from Dr. Middleton and he did not suggest any further interventio n and advised to continue to use p.r.n. use of nitroglycerin for him. [employer] Technician has started him o n ProAmatine and I have advised him that he should continue to use it as prescribed by his nephrologi st on dialysis days. The patient was discharged to go home today in stable condition with above-ment ioned medication and instructions. When the patient first came into emergency room, chest x-ray show ed evidence of some atelectasis, but also raised possibility of pneumonia. He does not have any typi ever signs and symptoms of pneumonia but empiric antibiotic, ceftriaxone was given to him and repeat c hest x-ray did not show any pneumonia but did show some changes of atelectasis. Final Diagnoses: 1.Volume overload. 2.End-stage renal disease, on hemodialysis. 3.Chronic obstructive pulmonary disease. 4.Chronic systolic congestive heart failure. 5.Anemia due to chronic kidney disease. 6.Coronary artery disease. 7.Diabetes mellitus type 2. 8.Osteoarthritis, multiple sites. 9.Diverticulosis. 10.Sleep apnea. 11.Gastroesophageal reflux disease. 12.Hypertension. 13.Prostate cancer. 14.Cervical spondylosis. ODESSA/MODL Voice ID: [id number] Report ID: [id number]
== END 2017-07-01 15:45 | disposition home or self-care (01) | DRG 291 ==
LOC: ER 11:45 → SUPCPDRO 11:45 → ERHOLD 15:58 → 2ND 17:22
PROVIDERS: ADMIT Internal Medicine; ATTEND Internal Medicine
PROC: 5A1D70Z Performance of Urinary Filtration, Intermittent, Less than 6 Hours Per Day (ICD-10-PCS; principal; 2017-06-27)
PROC: 5A1D70Z Performance of Urinary Filtration, Intermittent, Less than 6 Hours Per Day (ICD-10-PCS; 2017-06-28)
PROC: 5A1D70Z Performance of Urinary Filtration, Intermittent, Less than 6 Hours Per Day (ICD-10-PCS; 2017-06-29)
PROC: 5A1D70Z Performance of Urinary Filtration, Intermittent, Less than 6 Hours Per Day (ICD-10-PCS; 2017-07-01)
DX: I13.2 Hypertensive heart and chronic kidney disease with heart failure and with stage 5 chronic kidney disease, or end stage renal disease (principal); N18.6 End stage renal disease; I50.22 Chronic systolic (congestive) heart failure; J44.1 Chronic obstructive pulmonary disease with (acute) exacerbation; E11.22 Type 2 diabetes mellitus with diabetic chronic kidney disease; D63.1 Anemia in chronic kidney disease; M47.892 Other spondylosis, cervical region; N25.0 Renal osteodystrophy; E66.9 Obesity, unspecified; I25.10 Atherosclerotic heart disease of native coronary artery without angina pectoris; K57.90 Diverticulosis of intestine, part unspecified, without perforation or abscess without bleeding; K21.0 Gastro-esophageal reflux disease with esophagitis; M15.9 Polyosteoarthritis, unspecified; G47.30 Sleep apnea, unspecified
CPT/HCPCS: 36415; 71045; 80048; 80076; 82550; 82553; 82962; 83735; 83880; 84100; 84484; 85025; 85610; 86704; 86706; 86803; 87040; 87340; 90935; 93005; 94640; 96365; 96375; 99285; J0696; J1644; J2150; J2930; Q4081

== ENCOUNTER 2017-12-06 13:59 | Inpatient (IN) | payer OTHER, MEDICARE ==
[2017-12-06] MEDS ORDERED: ONDANSETRON 4 MG/2 ML VIAL ONE (15:30)
--- NOTE | 2017-12-06 16:07 | RAD REPORT ---
EXAM DESCRIPTION: CT - Abdomen Pelvis Wo Contrast - 12/06/2017 3:51 pm CLINICAL HISTORY: Abdominal pain. ABD PAIN COMPARISON: 12/26/2016 TECHNIQUE: CT imaging of the abdomen and pelvis was performed without contrast. Solid organ, bowel a nd vascular assessment is limited due to lack of IV and oral contrast. All CT scans are performed using dose optimization technique as appropriate and may include automated exposure control or mA/KV adjustment according to patient size. FINDINGS: The lower lung ellsworth are clear.Pacer wires are noted. Small to moderate hiatal hernia is seen. No evidence of aggressive liver mass or biliary dilatation. The spleen, pancreas, adrenal glands and kidneys are within normal limits.Several bilateral renal cysts are noted without stone or hydronephro sis. No bowel obstruction, free air, free fluid or abscess. Short segment of the sigmoid colon in the left lower quadrant demonstrates wall thickening and pericolonic fat stranding. Multiple diverticular pre sent in the region. The findings suggest mild acute diverticulitis. No peridiverticular abscess seen. The appendix is not identified as a discrete structure, however, no secondary findings of appendicit is are identified. Moderate lumbar degenerative changes. IMPRESSION: Mild acute short-segment diverticulitis involving the sigmoid colon. No peridiverticular abscess. A limited non-contrast examination was performed as detailed.
[2017-12-06] MEDS ORDERED: METRONIDAZOLE 500mg IVPB 500 MG/100 ML BAG IV ONE (16:18)
[2017-12-06] MEDS ORDERED: CIPROFLOXACIN 400mg IV 400 MG/200 ML BAG IV ONE (16:18)
[2017-12-06 16:32] LABS: Absolute Lymphocytes (CBC) 1.2 K/uL (0.7-4.9); Absolute Monocytes 0.9 K/uL (0.1-1.3); Absolute Neutrophil 4.9 K/uL (1.8-8.0); Basophils % 0.8 % (0-1.3); Hematocrit 34.5 % (39.6-49.0); Lymphocytes % 16.4 % (15.3-44.8); MCH 31.4 pg (27.0-35.0); MCV 98.3 fL (80-100); MPV 10.1 fL (7.6-11.3); RBC Red Blood Cell Count 3.51 M/uL (4.33-5.43)
[2017-12-06 17:02] LABS: Albumin 3.6 g/dL (3.4-5.0); Bilirubin Direct 0.2 mg/dL (0-0.2); Bilirubin Total 0.5 mg/dL (0.2-1.0); Protein, Total 8.2 g/dL (6.4-8.2)
[2017-12-06 17:14] LABS: Potassium 5.9 mmol/L (3.5-5.1)
--- NOTE | 2017-12-06 17:41 | ER ---
Nurse's Notes [facility] Name: Sergio Perez Age: 77 yrs Sex: Male : 1940 Arrival Date: 12/06/2017 Time: 14:00 Bed 13 Private MD: Anmol Salazar Diagnosis: Diverticulitis of intestine, part unspecified, without perforation or abscess without bleeding;Hyperkalemia Presentation: 12/06 14:47 Presenting complaint: Patient states: abdominal pain started yesterday. Vomiting dm5 started this morning x 3. dry heaving. diarrhea x 4 since last night. Transition of care: patient was not received from another setting of care. Onset of symptoms was December 05, 2017. Risk Assessment: Do you want to hurt yourself or someone else? Patient reports no desire to harm self or others. Initial Sepsis Screen: Does the patient meet any 2 criteria? No. Patient's initial sepsis screen is negative. Does the patient have a suspected source of infection? Yes: Acute abdominal pain. Care prior to arrival: None. 14:47 Method Of Arrival: Ambulatory dm5 14:47 Acuity: KARLENE 3 dm5 Triage Assessment: 14:49 General: Appears in no apparent distress. Behavior is calm, cooperative. Pain: dm5 Complains of pain in suprapubic area, right lower quadrant and left lower quadrant Pain currently is 9 out of 10 on a pain scale. GI: Reports diarrhea, nausea, vomiting. Derm: Skin is pink, warm \T\ dry. Historical: - Allergies: 14:49 Iodine; dm5 14:49 SHELLFISH; dm5 18:13 Cipro; hb - Home Meds: 18:13 allopurinol 300 mg Oral tab 1 tab once daily [Active]; amiodarone 100 mg Oral tab once hb daily [Active]; Claritin 10 mg Oral tab 1 tab once daily [Active]; DuoNeb Inhl as needed [Active]; ferrous sulfate 325 mg (65 mg iron) Oral tab twice a day [Active]; Flonase Nasal daily [Active]; nitroglycerin 0.4 mg SL subl 1 tab as needed [Active]; omeprazole 20 mg Oral TbEC daily [Active]; Plavix 75 mg Oral tab 1 tab once daily [Active]; Renvela Oral [Active]; Vitamin D3 2,000 unit Oral cap daily [Active]; - PMHx: 18:13 COPD; Diabetes - NIDDM; Dialysis; M-W-F; ESRD; GERD; Gout; Hypertension; Pacemaker; hb with defib; CHF; - Immunization history:: Adult Immunizations up to date. - Social history:: Smoking status: Patient/guardian denies using tobacco. - Ebola Screening: : No symptoms or risks identified at this time. Screenin:00 Abuse screen: Denies threats or abuse. Denies injuries from another. Nutritional hb screening: No deficits noted. Tuberculosis screening: No symptoms or risk factors identified. Fall Risk None identified. Assessment: 15:30 General: Appears in no apparent distress. Behavior is calm, cooperative. Pain: Denies hb pain. Neuro: Level of Consciousness is awake, alert, obeys commands, Oriented to person, place, time, situation. Cardiovascular: Heart tones S1 S2 present Capillary refill < 3 seconds Patient's skin is warm and dry. Respiratory: Airway is patent via trache Trachea midline Respiratory effort is even, unlabored, Respiratory pattern is regular, symmetrical, Breath sounds are clear bilaterally. GI: Abdomen is non-distended, Bowel sounds present X 4 quads. Abd is soft and non tender X 4 quads. Reports lower abdominal pain, upper abdominal pain, nausea. : No signs and/or symptoms were reported regarding the genitourinary system. EENT: No signs and/or symptoms were reported regarding the EENT system. Derm: No signs and/or symptoms reported regarding the dermatologic system. Musculoskeletal: No signs and/or symptoms reported regarding the musculoskeletal system. 15:35 Reassessment: Pt reports M-W-F HD, last HD was Thursday. hb 16:30 Reassessment: Patient appears in no apparent distress at this time. No changes from hb previously documented assessment. Patient and/or family updated on plan of care and expected duration. Pain level reassessed. Patient is alert, oriented x 3, equal unlabored respirations, skin warm/dry/pink. Admission ordered, awaiting room assignment at this time. 16:45 Reassessment: Pt c/o profound right hand and right forearm itching during Cipro hb infusion. Cipro discontinued, PIV flushed with 10ml NS, itching subsided after approx 1 minute. Pt denies SOB/difficulty breathing or other s/s allergy. CLINICAL EDUCATOR Catherine notified. 17:07 Reassessment: Received a lab alert for potassium 5.9 and Creatinine 9.80. 100 % verbal rb1 read back. SHAI Nieves was notified of the lab alert. 17:58 Reassessment: Patient appears in no apparent distress at this time. No changes from hb previously documented assessment. Patient and/or family updated on plan of care and expected duration. Pain level reassessed. Patient is alert, oriented x 3, equal unlabored respirations, skin warm/dry/pink. 18:36 Reassessment: Patient appears in no apparent distress at this time. No changes from hb previously documented assessment. Patient and/or family updated on plan of care and expected duration. Pain level reassessed. Patient is alert, oriented x 3, equal unlabored respirations, skin warm/dry/pink. Admission ordered, awaiting room assignment at this time. 19:05 Reassessment: Report received from SHAI Nieves. bs1 19:05 General: Appears in no apparent distress. comfortable, Behavior is calm, cooperative, bs1 appropriate for age. Pain: Denies pain. Neuro: Level of Consciousness is awake, alert, obeys commands, Oriented to person, place, time, situation, Appropriate for age. Cardiovascular: Heart tones S1 S2 present Capillary refill < 3 seconds Patient's skin is warm and dry. Respiratory: Airway is patent Trachea midline Respiratory effort is even, unlabored, Respiratory pattern is regular, symmetrical, Breath sounds are clear bilaterally. GI: Abdomen is non-distended, Bowel sounds present X 4 quads. Abd is soft and non tender X 4 quads. Reports lower abdominal pain, upper abdominal pain, nausea. : No signs and/or symptoms were reported regarding the genitourinary system. EENT: No signs and/or symptoms were reported regarding the EENT system. Derm: No signs and/or symptoms reported regarding the dermatologic system. Musculoskeletal: Circulation, motion, and sensation intact. Capillary refill < 3 seconds, Range of motion: intact in all extremities. 20:27 Reassessment: Patient appears in no apparent distress at this time. Patient and/or bs1 family updated on plan of care and expected duration. Pain level reassessed. Patient is alert, oriented x 3, equal unlabored respirations, skin warm/dry/pink. Patient being admitted to 4th floor, rm 405, report called to SHAI Escalante. Vital Signs: 14:49 BP 116 / 63; Pulse 87; Resp 18; Temp 98.7; Pulse Ox 97% on R/A; Weight 138.35 kg; dm5 Height 5 ft. 11 in. (180.34 cm); Pain 9/10; 15:30 BP 106 / 62; Pulse 80; Resp 17; Pulse Ox 100% on R/A; hb 16:30 BP 99 / 53; Pulse 79; Resp 15; Pulse Ox 98% on R/A; hb 18:00 BP 119 / 67; Pulse 88; Resp 18; Pulse Ox 100% on Nebulizer Mask; hb 19:00 BP 96 / 52; Pulse 76; Resp 17; Pulse Ox 99% on R/A; bs1 20:00 BP 111 / 61; Pulse 76; Resp 17; Temp 97.9(O); Pulse Ox 99% on R/A; Pain 0/10; bs1 14:49 Body Mass Index 42.54 (138.35 kg, 180.34 cm) dm5 ED Course: 14:00 Patient arrived in ED. sb2 14:00 Anmol Salazar MD is Private Physician. sb2 14:49 Triage completed. dm5 14:49 Arm band placed on right wrist. Patient placed in waiting room. dm5 15:00 Patient has correct armband on for positive identification. Placed in gown. Bed in low hb position. Call light in reach. Side rails up X 1. 15:12 [facility] kb 15:12 Mickey Bro MD is Attending Physician. kb 15:51 CT Abd/Pelvis - Without Cont In Process Unspecified. EDMS 16:18 Missed attempt(s): 22 gauge in right hand. Bleeding controlled, band aid applied, dh3 catheter tip intact. 16:22 Initial lab(s) drawn, by hi, sent to lab. Inserted saline lock: 20 gauge in right hand, dh3 using aseptic technique. Blood collected. 16:59 Marika Lo, SHAI is Primary Nurse. dm5 17:41 Anmol Salazar MD is Hospitalizing Provider. kb 19:38 Selene Beltran, SHAI is Primary Nurse. bs1 20:23 No provider procedures requiring assistance completed. Patient admitted, IV remains in bs1 place. intact. Administered Medications: Discontinued: Cipro 400 mg 200 ml IVPB once over 60 mins 15:55 Drug: Zofran 4 mg Route: IVP; Site: right hand; hb 16:40 Follow up: Response: No adverse reaction hb 16:20 Drug: Cipro 400 mg Volume: 200 ml; Route: IVPB; Infused Over: 60 mins; Site: right hand;hb 16:40 Follow up: Response: Adverse reaction, Physician notified; Pt reported profound itching hb in right hand and right forearm, infusion diiscontinued, PIV flushed with 10ml NS, itching subsided after approx 1 minute. Denies SOB/difficulty breathing or other s/s allergy. CLINICAL EDUCATOR Catherine notified. Cipro added to pt allergy list in [employer] 16:22 Drug: Flagyl 500 mg Volume: 100 ml; Route: IVPB; Rate: 200 ml/hr; Infused Over: 30 hb mins; Site: right hand; 17:30 Follow up: Response: No adverse reaction; IV Status: Completed infusion hb 17:45 Drug: Kayexalate 45 grams Route: PO; hb 18:14 Follow up: Response: No adverse reaction hb 17:56 Drug: Albuterol 2.5 mg Route: Inhalation; hb 17:56 Drug: D50W 50 ml Route: IVP; Site: right hand; hb 18:36 Follow up: Response: No adverse reaction hb 17:58 Drug: Insulin Regular Human 10 units {Co-Signature: rb1 (Priti Guevara RN).} Route: hb IVP; Site: right hand; 18:37 Follow up: Response: No adverse reaction hb 18:09 Drug: Albuterol 2.5 mg Route: Inhalation; hb 18:20 Drug: Albuterol 2.5 mg Route: Inhalation; hb 18:33 Drug: Rocephin - (cefTRIAXone) 2 grams Route: IVPB; Infused Over: 30 mins; Site: right hb hand; 19:39 Follow up: IV Status: Completed infusion bs1 Intake: Outcome: 17:41 Decision to Hospitalize by Provider. kb 20:23 Admitted to Tele accompanied by tech, via wheelchair, room 405, with chart, Report bs1 called to SHAI Escalante 20:23 Condition: stable 20:58 Patient left the ED. bs1 Signatures: Dispatcher [employer] EDMS Catherine Bradley, [employer] SECURITY SHIFT MANAGER-Marika Oglesby RN RN dm5 Priti Guevara RN RN rb1 Lizbeth Morgan RN RN Nia Byers 3 Selene Beltran RN RN bs1 Destiny Matson 2 Priti Guevara RN rb1 Corrections: (The following items were deleted from the chart) 18:00 17:40 Reassessment: Pt c/o profound right hand and right forearm itching during Cipro hb infusion. Cipro discontinued and CLINICAL EDUCATOR Catherine notified. hb 18:16 16:45 Reassessment: Pt c/o profound right hand and right forearm itching during Cipro hb infusion. Cipro discontinued and CLINICAL EDUCATOR Catherine notified. hb
--- NOTE | 2017-12-06 17:42 | EDPHYS ---
Physician Documentation [facility] Name: Sergio Perez Age: 77 yrs Sex: Male : 1940 Arrival Date: 12/06/2017 Time: 14:00 Bed 13 Private MD: Anmol Salazar ED Physician Mickey Bro HPI: 12/06 15:41 This 77 yrs old Black Male presents to ER via Ambulatory with complaints of Abdominal kb Pain, Nausea/Vomiting/Diarrhea. 15:41 The patient presents with abdominal pain in the lower abdomen. Onset: The kb symptoms/episode began/occurred yesterday. The symptoms do not radiate. Associated signs and symptoms: Pertinent positives: nausea, vomiting, and diarrhea, Pertinent negatives: anorexia, blood in stools, chest pain, constipation, dysuria, fever, headache, hematuria, palpitations, shortness of breath, testicular pain, vomiting blood. The symptoms are described as constant. Modifying factors: The symptoms are alleviated by nothing, the symptoms are aggravated by pressure. Severity of pain: At its worst the pain was moderate in the emergency department the pain is unchanged. The patient has not experienced similar symptoms in the past. The patient has not recently seen a physician. Historical: - Allergies: 14:49 Iodine; dm5 14:49 SHELLFISH; dm5 18:13 Cipro; hb - Home Meds: 18:13 allopurinol 300 mg Oral tab 1 tab once daily [Active]; amiodarone 100 mg Oral tab once hb daily [Active]; Claritin 10 mg Oral tab 1 tab once daily [Active]; DuoNeb Inhl as needed [Active]; ferrous sulfate 325 mg (65 mg iron) Oral tab twice a day [Active]; Flonase Nasal daily [Active]; nitroglycerin 0.4 mg SL subl 1 tab as needed [Active]; omeprazole 20 mg Oral TbEC daily [Active]; Plavix 75 mg Oral tab 1 tab once daily [Active]; Renvela Oral [Active]; Vitamin D3 2,000 unit Oral cap daily [Active]; - PMHx: 18:13 COPD; Diabetes - NIDDM; Dialysis; M-W-F; ESRD; GERD; Gout; Hypertension; Pacemaker; hb with defib; CHF; - Immunization history:: Adult Immunizations up to date. - Social history:: Smoking status: Patient/guardian denies using tobacco. - Ebola Screening: : No symptoms or risks identified at this time. ROS: 15:41 Constitutional: Negative for fever, chills, and weight loss, Cardiovascular: Negative kb for chest pain, palpitations, and edema, Respiratory: Negative for shortness of breath, cough, wheezing, and pleuritic chest pain, Back: Negative for injury and pain, : Negative for injury, bleeding, discharge, and swelling, MS/Extremity: Negative for injury and deformity, Skin: Negative for injury, rash, and discoloration, Neuro: Negative for headache, weakness, numbness, tingling, and seizure. 15:41 Abdomen/GI: Positive for abdominal pain, nausea, vomiting, and diarrhea, Negative for constipation, abdominal cramps, abdominal distension, anorexia. Exam: 15:40 Constitutional: This is a well developed, well nourished patient who is awake, alert, kb and in no acute distress. Head/Face: Normocephalic, atraumatic. Chest/axilla: Normal chest wall appearance and motion. Nontender with no deformity. No lesions are appreciated. Cardiovascular: Regular rate and rhythm with a normal S1 and S2. No gallops, murmurs, or rubs. Normal PMI, no JVD. No pulse deficits. Respiratory: Lungs have equal breath sounds bilaterally, clear to auscultation and percussion. No rales, rhonchi or wheezes noted. No increased work of breathing, no retractions or nasal flaring. Skin: Warm, dry with normal turgor. Normal color with no rashes, no lesions, and no evidence of cellulitis. MS/ Extremity: Pulses equal, no cyanosis. Neurovascular intact. Full, normal range of motion. Neuro: Awake and alert, GCS 15, oriented to person, place, time, and situation. Cranial nerves II-XII grossly intact. Motor strength 5/5 in all extremities. Sensory grossly intact. Cerebellar exam normal. Normal gait. 15:40 Neck: tracheostomy present. 15:40 Abdomen/GI: Inspection: abdomen appears normal, Bowel sounds: normal, in all quadrants, Palpation: soft, in all quadrants, mild abdominal tenderness, in all quadrants, moderate abdominal tenderness. Vital Signs: 14:49 BP 116 / 63; Pulse 87; Resp 18; Temp 98.7; Pulse Ox 97% on R/A; Weight 138.35 kg; dm5 Height 5 ft. 11 in. (180.34 cm); Pain 9/10; 15:30 BP 106 / 62; Pulse 80; Resp 17; Pulse Ox 100% on R/A; hb 16:30 BP 99 / 53; Pulse 79; Resp 15; Pulse Ox 98% on R/A; hb 18:00 BP 119 / 67; Pulse 88; Resp 18; Pulse Ox 100% on Nebulizer Mask; hb 19:00 BP 96 / 52; Pulse 76; Resp 17; Pulse Ox 99% on R/A; bs1 20:00 BP 111 / 61; Pulse 76; Resp 17; Temp 97.9(O); Pulse Ox 99% on R/A; Pain 0/10; bs1 14:49 Body Mass Index 42.54 (138.35 kg, 180.34 cm) dm5 MDM: 15:12 Patient medically screened. kb 15:40 Data reviewed: vital signs, nurses notes. Data interpreted: Pulse oximetry: on room air kb is 97 %. Interpretation: normal. 17:35 Counseling: I had a detailed discussion with the patient and/or guardian regarding: the kb historical points, exam findings, and any diagnostic results supporting the discharge/admit diagnosis, lab results, radiology results, the need for further work-up and treatment in the hospital. Physician consultation: Soy Thomson MD was called at 17:35, left voice message. Awaiting callback. 18:37 Physician consultation: Soy Thomson MD was contacted at 18:25, regarding admission, kb to the telemetry unit. patient's condition. 19:02 ED course: Cipro stopped due to itching. Order changed to Rocephin.. kb 12/06 15:17 Order name: Amylase, Serum; Complete Time: 17:15 kb 12/06 15:17 Order name: Basic Metabolic Panel; Complete Time: 17:15 kb 12/06 15:17 Order name: CBC with Diff; Complete Time: 16:33 kb 12/06 15:17 Order name: Hepatic Function; Complete Time: 17:15 kb 12/06 15:17 Order name: Lipase; Complete Time: 17:15 kb 12/06 15:17 Order name: CT Abd/Pelvis - Without Cont; Complete Time: 16:08 kb 12/06 15:17 Order name: IV Saline Lock; Complete Time: 16:28 kb 12/06 15:17 Order name: Labs collected and sent; Complete Time: 16:28 kb 12/06 19:15 Order name: EKG; Complete Time: 19:16 kb 12/06 19:15 Order name: EKG - Nurse/Tech; Complete Time: 20:10 kb Administered Medications: Discontinued: Cipro 400 mg 200 ml IVPB once over 60 mins 15:55 Drug: Zofran 4 mg Route: IVP; Site: right hand; hb 16:40 Follow up: Response: No adverse reaction hb 16:20 Drug: Cipro 400 mg Volume: 200 ml; Route: IVPB; Infused Over: 60 mins; Site: right hand;hb 16:40 Follow up: Response: Adverse reaction, Physician notified; Pt reported profound itching hb in right hand and right forearm, infusion diiscontinued, PIV flushed with 10ml NS, itching subsided after approx 1 minute. Denies SOB/difficulty breathing or other s/s allergy. SEAT TRIMMER Catherine notified. Cipro added to pt allergy list in [employer] 16:22 Drug: Flagyl 500 mg Volume: 100 ml; Route: IVPB; Rate: 200 ml/hr; Infused Over: 30 hb mins; Site: right hand; 17:30 Follow up: Response: No adverse reaction; IV Status: Completed infusion hb 17:45 Drug: Kayexalate 45 grams Route: PO; hb 18:14 Follow up: Response: No adverse reaction hb 17:56 Drug: Albuterol 2.5 mg Route: Inhalation; hb 17:56 Drug: D50W 50 ml Route: IVP; Site: right hand; hb 18:36 Follow up: Response: No adverse reaction hb 17:58 Drug: Insulin Regular Human 10 units {Co-Signature: rb1 (Priti Guevara RN).} Route: hb IVP; Site: right hand; 18:37 Follow up: Response: No adverse reaction hb 18:09 Drug: Albuterol 2.5 mg Route: Inhalation; hb 18:20 Drug: Albuterol 2.5 mg Route: Inhalation; hb 18:33 Drug: Rocephin - (cefTRIAXone) 2 grams Route: IVPB; Infused Over: 30 mins; Site: right hb hand; 19:39 Follow up: IV Status: Completed infusion bs1 Disposition: 12/07 06:53 Co-signature as Attending Physician, Mickey Bro MD I agree with the assessment and tono plan of care. Disposition: 12/06/17 17:41 Hospitalization ordered by Anmol Salazar for Inpatient Admission. Preliminary diagnosis are Diverticulitis of intestine, part unspecified, without perforation or abscess without bleeding, Hyperkalemia. - Bed requested for Telemetry/MedSurg (Inpatient). - Status is Inpatient Admission. bs1 - Condition is Stable. - Problem is new. - Symptoms are unchanged. UTI on Admission? No Signatures: Dispatcher [employer] EDMS Catherine Bradley, GRAIN LOADER-C GRAIN LOADER-Yesenia Ordoñez, RN RN Marika Stewart, RN RN dm5 Mickey Bro MD MD cha Baxter, Heather, RN RN Selene Plasencia, RN RN bs1 Priit Guevara RN rb1 Corrections: (The following items were deleted from the chart) 12/06 19:02 19:02 ED course: Cipro stopped due to itching. Rocephin given instead. kb kb 19:42 17:41 Hospitalization Ordered by Anmol Salazar MD for Inpatient Admission. Preliminary kl diagnosis is Diverticulitis of intestine, part unspecified, without perforation or abscess without bleeding; Hyperkalemia. Bed requested for Telemetry/MedSurg (Inpatient). Status is Inpatient Admission. Condition is Stable. Problem is new. Symptoms are unchanged. UTI on Admission? No. kb 20:58 19:42 12/06/2017 17:41 Hospitalization Ordered by Anmol Salazar MD for Inpatient bs1 Admission. Preliminary diagnosis is Diverticulitis of intestine, part unspecified, without perforation or abscess without bleeding; Hyperkalemia. Bed requested for Telemetry/MedSurg (Inpatient). Status is Inpatient Admission. Condition is Stable. Problem is new. Symptoms are unchanged. UTI on Admission? No. bunny
[2017-12-06] MEDS ORDERED: D50W 25 GM/50 ML SYRINGE IV ONE (17:45)
[2017-12-06] MEDS ORDERED: INSULIN -REGULAR HUMAN 50 UNIT/0.5 ML ML ONE (17:45)
[2017-12-06] MEDS ORDERED: SOD POLYSTYREN SUL 15 GM/60 ML UCUP ONE (17:45)
[2017-12-06] MEDS ORDERED: ALBUTEROL 2.5 MG/3 ML NEB SOL ONE (17:45)
[2017-12-06] MEDS ORDERED: CEFTRIAXONE/SWI 1gm 2 GM/20 ML SYR ONE (18:32)
[2017-12-06] MEDS ORDERED: ONDANSETRON 4 MG/2 ML VIAL IV PRN (21:13)
[2017-12-06] MEDS ORDERED: ACETAMINOPHEN 500 MG TAB PO PRN (21:13)
[2017-12-06] MEDS ORDERED: SOD POLYSTYREN SUL 15 GM/60 ML UCUP PO ONE (22:52)
[2017-12-07] MEDS: METRONIDAZOLE 500mg IVPB 500 MG/100 ML BAG IV SCH ×3 (00:45→17:18)
[2017-12-07] MEDS ORDERED: MANNITOL 25% 12.5 GM/50 ML VIAL IV PRN (02:20)
[2017-12-07] MEDS ORDERED: NA CHLORIDE 0.9% 1,000 ML IV PRN (02:20)
[2017-12-07] MEDS ORDERED: ALBUMIN HUMAN 25% 50 ML IV SCH (03:00)
[2017-12-07 07:58] LABS: Absolute Lymphocytes (CBC) 0.9 K/uL (0.7-4.9); Absolute Monocytes 0.7 K/uL (0.1-1.3); Absolute Neutrophil 2.9 K/uL (1.8-8.0); Basophils % 0.9 % (0-1.3); Eosinophils % 4.7 % (0-4.4); Hematocrit 32.1 % (39.6-49.0); Lymphocytes % 19.8 % (15.3-44.8); MCH 31.9 pg (27.0-35.0); MCV 99.4 fL (80-100); MPV 10.4 fL (7.6-11.3); Monocytes % 14.1 % (3.3-12.3); RBC Red Blood Cell Count 3.22 M/uL (4.33-5.43)
[2017-12-07] MEDS: MAG HYDROX PO SCH ×3 (08:00→17:00)
[2017-12-07] MEDS ORDERED: NITROGLYCERIN 0.4 MG/TAB SL SCH (08:00)
[2017-12-07] MEDS: FAMOTIDINE PO SCH ×3 (08:00→17:00)
[2017-12-07] MEDS: CA CARB PO SCH ×3 (08:00→17:00)
[2017-12-07] MEDS: ALBUTEROL 2.5 MG/3 ML NEB SOL IH SCH (08:29)
[2017-12-07] MEDS ORDERED: NITROGLYCERIN 0.4 MG/TAB SL PRN (08:55)
[2017-12-07] MEDS: IPRATROPIUM IH SCH ×4 (09:00→21:00)
[2017-12-07] MEDS ORDERED: CEFTRIAXONE 1 GM/NS 50 ML 1 GM/50 ML BAG IV SCH (09:00)
[2017-12-07] MEDS: VITAMIN A PO SCH (09:00)
--- NOTE | 2017-12-07 09:41 | EKG ---
Test Date: 2017-12-06 Test Time: 20:02:53 Public Aid Eligibility Assistant: JAKUB MEASUREMENT RESULTS: Intervals: Rate: 75 TX: 174 QRSD: 154 QT: 522 QTc: 582 [place]: P: 15 TX: 174 QRS: -79 T: 14 INTERPRETIVE STATEMENTS: Atrial-sensed ventricular-paced rhythm Abnormal ECG Compared to ECG 06/28/2017 11:49:38 No significant changes Electronically Signed On 12-07-17 09:41:09 CDT by Thomas Middleton
[2017-12-07] MEDS: SEVELAMER CARBONATE 800 MG TABLET PO SCH ×3 (10:03→17:14)
[2017-12-07] MEDS: ALLOPURINOL 100 MG TAB PO SCH (10:04)
[2017-12-07] MEDS: VITAMIN D 1000 UNIT TAB PO SCH (10:04)
[2017-12-07] MEDS: ASCORBIC ACID 500 MG TABLET PO SCH (10:04)
[2017-12-07] MEDS: CLOPIDOGREL 75 MG TABLET PO SCH (10:04)
[2017-12-07] MEDS: AMIODARONE HCL 200 MG TAB PO SCH (10:05)
[2017-12-07] MEDS: ZINC SULFATE 220 MG CAP PO SCH (10:05)
[2017-12-07] MEDS: GABAPENTIN 100 MG CAP PO SCH ×3 (10:05→21:00)
[2017-12-07] MEDS: ASPIRIN EC 81 MG TAB PO SCH (10:05)
[2017-12-07] MEDS: HEPARIN 5000 UNIT/ML 1 ML VIAL SQ SCH ×2 (10:06→21:00)
[2017-12-07] MEDS: LORATADINE 10 MG TAB PO SCH (10:06)
[2017-12-07] MEDS: CEFTRIAXONE/SWI 1gm 1 GM/10 ML SYR IV SCH (10:07)
[2017-12-07] MEDS: PANTOPRAZOLE 40MG TABLET PO SCH (17:14)
[2017-12-08] MEDS: METRONIDAZOLE 500mg IVPB 500 MG/100 ML BAG IV SCH ×3 (00:45→16:21)
--- NOTE | 2017-12-08 02:44 | CON ---
Date of Consultation: 12/07/2017 Chief Complaint: End-stage renal disease, on dialysis. History Of Present Illness: The patient presented to the hospital, was found to have severe hyperkalemia and stat dialysis was done to control hyperkalemia. Potassium was 6.2. The patient received 1 dose of Kayexalate, although Kayexalate was not reordered because the patient has colitis and was found to have diverticulitis. The patient is undergoing workup to rule out C diff colitis. The patient presented to the hospital because of generalized weakness , low-grade fever, abdominal pain, nausea, vomiting, and decreased p.o. intake. CT scan of the abdomen and pelvis without contrast showed mild acute short segment diverticulitis involving sigmoid colon, and the patient is started on broad-spectrum antibiotics for diverticulitis. Review of Systems: Denies syncope. Has low-grade fever. Eyes: Denies new vision changes. Ears, Nose, Mouth, and Throat: Denies sore throat, earache. Respiratory: Denies PND, orthopnea. Has shortness of breath, chronic dyspnea on exertion. GI: He is complaining of abdominal pain, left lower quadrant. Denies melena, hematemesis. : Denies dysuria, hematuria. Musculoskeletal: Has generalized weakness, legs edema, progressively worse over last 24 hours. All other systems reviewed and all are negative. Past Medical History: Obesity, hypertension, COPD, obstructive sleep apnea, anemia in CKD, renal osteodystrophy, congestive heart failure with diastolic dysfunction and systolic dysfunction, history of chronic respiratory failure. The patient has trach, AICD placement, tracheostomy. Diabetes mellitus, allergic rhinitis, coronary artery disease, diverticulosis, osteoarthritis of multiple sites, GERD, cervical spondylosis and radiculopathy, cardiomyopathy, congestive heart failure, ejection fraction 20% to 25%. Family History: No kidney disease in the family. Social History: Denies tobacco, alcohol, or illicit drugs. Family History: Significant for hypertension. Significant for asthma and breast cancer. Physical Examination: General: The patient is awake, alert, in mild respiratory distress. Eyes: Anicteric sclerae. EOMI. Ears, Nose, Mouth, and Throat: Oral mucosa moist. No pallor. Neck: Supple. No JVD. No bruits. Lungs: Few crackles at bases. Heart: S1, S2. Abdomen: Soft, benign. Extremities: Edema present in both legs. Neurological: Moving extremities. Cranial nerves intact. Psychiatric: Alert, oriented x3. Normal affect. Lab Work: Hemoglobin is 10.3, WBC 4.7, platelet count is 149,000. Chemistry: On arrival to the hospital, the patient was found to have hyperkalemia, potassium was 6.2. Sodium 135, potassium 5.9, chloride 97, CO2 30, BUN 47, creatinine 9.8, glucose 98, calcium 9.2. Impression And Plan: 1. Hyperkalemia. The patient received stat dialysis with 1 potassium dialysate to control hyperkalemia. 2. Fluid overload, congestive heart failure. The patient received mild ultrafiltration and ultrafiltration goal was not increased due to the fact that the patient presented with diverticulitis and has history of hypotension. The patient will have daily dialysis to obtain negative fluid balance and control fluid overload. He had dialysis last night with mild ultrafiltration to control hyperkalemia and fluid overload. 3. Anemia in chronic kidney disease. Monitor hemoglobin level closely. Adjust JAIRO. 4. Renal osteodystrophy. Continue renal diet and binders. 5. Diverticulitis. Continue antibiotics. Pending cultures for Clostridium difficile. ALEXI/MODSheridan Voice ID: [id number] Report ID: [id number] ABEL
--- NOTE | 2017-12-08 05:24 | HP ---
Date of Admission: 12/07/2017 Chief Complaint: Abdominal pain. History Of Present Illness: This is a 77-year-old male patient admitted to the hospital with complai nts of abdominal pain. Please see dictated H and P for more information. The patient came into [facility] room with this intermittent left lower quadrant abdominal pain that started 2 days ago. Denies any nausea, vomiting, fever, chills. No constipation. No diarrhea. No bleeding per rectum. After he was evaluated in the ER, he was diagnosed as having acute diverticulitis. His potassium was very high and he was given insulin, Kayexalate and D50 and nebulizer treatment to try to correct the pota ssium and had emergent dialysis last night. This morning, repeat potassium level was normal. He is feeling somewhat better with abdominal pain this morning. Allergies: TO IODINE. Medications: List reviewed. Review of Systems: GI: As mentioned above. All other systems reviewed and negative. Social History: Negative for smoking, alcohol use. Family History: Significant for asthma, hypertension, breast cancer. Past Surgical History: AICD placement in June 2014, tracheostomy many years ago. Past Medical History: Significant for end-stage renal disease, on hemodialysis, COPD, chronic systol ic congestive heart failure with ejection fraction around 20%-25%, anemia due to chronic kidney disea se, sleep apnea, coronary artery disease, diabetes mellitus, allergic rhinitis, diverticulosis, osteo arthritis at multiple sites, gastroesophageal reflux disease, prostate cancer, cervical spondylosis w ith radiculopathy. Physical Examination: Vital Signs: Last temperature this morning before I saw him was 96.6, pulse 88, respiratory rate 18, blood pressure 143/70, oxygen saturation 99%. Height 5 feet 11 inches, weight 305 pounds. General: Awake, alert, oriented, not in distress. HEENT: Head atraumatic, normocephalic. Conjunctivae nonerythematous. Sclerae white. Mouth, no thr ush or edema noted. Ears/Nose, no mass, lesion, discharge noted. Neck: Presence of tracheostomy tube. Otherwise, neck examination is unremarkable. Lungs: Bilateral good equal air entry. Clear to auscultation. No rhonchi. No rales. Heart: Normal heart sounds, no murmur or gallop. Abdomen: Presence of left lower quadrant tenderness. No guarding, no rigidity. No rebound tenderne ss. No hepatosplenomegaly. No bruit. No distention. Bowel sounds normoactive. Extremities: Leg edema. Lymphatics: No lymph node enlargement in neck, supraclavicular, infraclavicular region. Neuro: No focal neurological deficit. Chest: Unremarkable. External Genitalia: Deferred. Rectal: Deferred. Laboratory Data: White count 7.4, hemoglobin 11, platelets 157. Initial sodium 135, potassium 5.9, chloride 97, bicarb 30, BUN 47, creatinine 9.80, glucose 98. Liver function tests unremarkable. Arina lase 80, lipase 253. Repeat creatinine this morning after dialysis was 6.90. Repeat potassium after dialysis was 4.0. CAT scan of abdomen and pelvis without contrast shows mild acute short segment di verticulitis involving sigmoid colon. No abscess. Impression: 1.Acute diverticulitis without abscess, without perforation. 2.Hyperkalemia. 3.End-stage renal disease, on hemodialysis. 4.Anemia due to chronic kidney disease. 5.Coronary artery disease. 6.Congestive heart failure, chronic, systolic. 7.Gastroesophageal reflux disease. 8.Cervical spondylosis with radiculopathy. 9.Prostate cancer. 10.Osteoarthritis, multiple sites. 11.Sleep apnea. Plan: Admit the patient to hospital for further evaluation and management of this problem. The lui ent is appropriate for inpatient and is expected to spend 2 midnights in hospital. We will go ahead and continue his home medications per order. Empiric antibiotics per order. We will leave him on cl ear liquid diet today. Ambulation was encouraged. We will follow with sheet metal pattern cutter for dialysis dilia madden. I will see him tomorrow morning for followup. Depending on his condition, we will decide if we can advance his diet tomorrow or not. Details on plan of treatment discussed with the patient. ODESSA/MODL Voice ID: [id number]
[2017-12-08] MEDS: MAG HYDROX PO SCH ×3 (08:00→17:00)
[2017-12-08] MEDS: FAMOTIDINE PO SCH ×3 (08:00→17:00)
[2017-12-08] MEDS: CA CARB PO SCH ×3 (08:00→17:00)
[2017-12-08] MEDS: ALBUTEROL 2.5 MG/3 ML NEB SOL IH SCH (08:17)
[2017-12-08] MEDS: LORATADINE 10 MG TAB PO SCH (08:43)
[2017-12-08] MEDS: ASCORBIC ACID 500 MG TABLET PO SCH (08:43)
[2017-12-08] MEDS: CLOPIDOGREL 75 MG TABLET PO SCH (08:43)
[2017-12-08] MEDS: ZINC SULFATE 220 MG CAP PO SCH (08:43)
[2017-12-08] MEDS: AMIODARONE HCL 200 MG TAB PO SCH (08:43)
[2017-12-08] MEDS: ASPIRIN EC 81 MG TAB PO SCH (08:44)
[2017-12-08] MEDS: VITAMIN D 1000 UNIT TAB PO SCH (08:44)
[2017-12-08] MEDS: SEVELAMER CARBONATE 800 MG TABLET PO SCH ×3 (08:44→16:48)
[2017-12-08] MEDS: PANTOPRAZOLE 40MG TABLET PO SCH ×2 (08:44→16:21)
[2017-12-08] MEDS: ALLOPURINOL 100 MG TAB PO SCH (08:45)
[2017-12-08] MEDS: HEPARIN 5000 UNIT/ML 1 ML VIAL SQ SCH ×2 (08:45→20:35)
[2017-12-08] MEDS: GABAPENTIN 100 MG CAP PO SCH ×3 (08:45→20:35)
[2017-12-08] MEDS: CEFTRIAXONE/SWI 1gm 1 GM/10 ML SYR IV SCH (08:53)
[2017-12-08] MEDS: IPRATROPIUM IH SCH ×4 (09:00→20:38)
[2017-12-08] MEDS: VITAMIN A PO SCH (09:00)
[2017-12-08 12:01] VITALS: O2SAT 98
--- NOTE | 2017-12-08 14:08 | RAD REPORT ---
EXAM DESCRIPTION: RAD - Chest Single View - 12/08/2017 1:56 pm CLINICAL HISTORY: COPD Chest pain. COMPARISON: Chest Single View dated 06/28/2017; Chest Single View dated 06/26/2017; Chest Single View dated 06/17/2017; Chest Single View dated 06/16/2017 FINDINGS: Portable technique limits examination quality. The lungs are grossly clear. The heart is moderately enlarged in size. Tracheostomy tube is in place with tip above the jamia. Right-sided pacer/defibrillator device is noted. No displaced fractures. IMPRESSION: No acute intrathoracic process suspected.
[2017-12-08] MEDS: ALBUTEROL 2.5 MG/3 ML NEB SOL NEB PRN (22:01)
[2017-12-08 23:55] VITALS: TEMP 97.5
--- NOTE | 2017-12-09 00:42 | PN ---
Date of Progress Note: 12/08/2017 Subjective: The patient was seen this morning for followup, lying in bed, not in any distress. Abdo mahogany pain is better today compared to yesterday. No nausea, no vomiting. Tolerating clear liquid d iet very well. Objective: Vital Signs: Reviewed. HEENT: Unremarkable. Lungs: Clear to auscultation. No rhonchi or rales. Heart: Sounds normal. Abdomen: Soft. Bowel sounds normal. No guarding, rigidity, distention. Presence of mild tendernes s in left lower quadrant, better today than yesterday. No rebound tenderness. Extremity: No leg edema. Impression: 1.Acute diverticulitis. 2.End-stage renal disease, on hemodialysis. 3.Anemia due to chronic kidney disease. 4.Hypertension. 5.Chronic systolic congestive heart failure. Plan: Continue to follow up with news video editor for dialysis needs. Continue current IV antibiotics. We will advance diet today to renal diet, and I will see him tomorrow for followup. Possible discha rge to go home tomorrow depending on his condition. ODESSA/MODL Voice ID: [id number] Report ID: [id number]
[2017-12-09] MEDS: METRONIDAZOLE 500mg IVPB 500 MG/100 ML BAG IV SCH ×2 (01:00→09:00)
[2017-12-09 02:33] LABS: HBsAG Nonreactive (Nonreactive)
--- NOTE | 2017-12-09 03:52 | PN ---
Date of Progress Note: 12/08/2017 Subjective: The patient was admitted with diverticulitis. Physical Examination: Vital Signs: Blood pressure 92/53, pulse of 73. Chest: Fine crackles bilateral. Heart: S1, S2. Regular. Abdomen: Soft, nontender. Extremities: Plus edema. Laboratory Data: WBC 4.7, H and H 10.3/32.1, platelets 149. Sodium 136, potassium of 4, bicarb 33, BUN 25, creatinine 6.9, calcium 8.6. Medications: Current medications the patient on its include: 1.Ceftriaxone. 2.Metronidazole. 3.Loratadine. 4.Plavix. 5.Amiodarone. 6.Nitroglycerin. 7.Renvela. 8.Pantoprazole. 9.Zofran. Assessment And Plan: 1.End-stage renal disease. We will continue dialysis. We will arrange for dialysis tomorrow. The patient had dialysis yesterday and day before. We will continue to monitor. We will try to challeng e the patient. 2.Hypertension. Currently off blood pressure medication. We will utilize the blood pressure for mo re ultrafiltration. 3.Secondary hyperparathyroidism. Continue Renvela. 4.Diverticulitis. Continue current antibiotic. GERI Voice ID: [id number] Report ID: [id number]
[2017-12-09 06:08] VITALS: BMI 41.4
[2017-12-09] MEDS: ALBUTEROL 2.5 MG/3 ML NEB SOL NEB PRN (06:15)
[2017-12-09] MEDS: MAG HYDROX PO SCH (08:00)
[2017-12-09] MEDS: FAMOTIDINE PO SCH (08:00)
[2017-12-09] MEDS: ALBUTEROL 2.5 MG/3 ML NEB SOL IH SCH (08:00)
[2017-12-09] MEDS: CA CARB PO SCH (08:00)
[2017-12-09] MEDS: VITAMIN A PO SCH (09:00)
[2017-12-09] MEDS: IPRATROPIUM IH SCH (09:00)
[2017-12-09] MEDS: HEPARIN 5000 UNIT/ML 1 ML VIAL SQ SCH (09:00)
[2017-12-09 09:18] VITALS: BP 109/70
[2017-12-09] MEDS: SEVELAMER CARBONATE 800 MG TABLET PO SCH (09:23)
[2017-12-09] MEDS: AMIODARONE HCL 200 MG TAB PO SCH (09:23)
[2017-12-09] MEDS: ALLOPURINOL 100 MG TAB PO SCH (09:23)
[2017-12-09] MEDS: VITAMIN D 1000 UNIT TAB PO SCH (09:24)
[2017-12-09] MEDS: ASPIRIN EC 81 MG TAB PO SCH (09:24)
[2017-12-09] MEDS: ZINC SULFATE 220 MG CAP PO SCH (09:24)
[2017-12-09] MEDS: ASCORBIC ACID 500 MG TABLET PO SCH (09:24)
[2017-12-09] MEDS: GABAPENTIN 100 MG CAP PO SCH (09:24)
[2017-12-09] MEDS: PANTOPRAZOLE 40MG TABLET PO SCH (09:24)
[2017-12-09] MEDS: LORATADINE 10 MG TAB PO SCH (09:24)
[2017-12-09] MEDS: CLOPIDOGREL 75 MG TABLET PO SCH (09:24)
[2017-12-09] MEDS: CEFTRIAXONE/SWI 1gm 1 GM/10 ML SYR IV SCH (09:25)
--- NOTE | 2017-12-10 04:14 | DS ---
Date of Discharge: 12/09/2017 Disposition: Discharged to go home. Physical Examination: HEENT: Unremarkable. Lungs: Clear to auscultation. Heart: Sounds normal. Abdomen: Soft. Bowel sounds normal. No guarding, rigidity, tenderness, distention. Extremities: No leg edema. Laboratory Data: White count on 12/06/2017 was 7.4, hemoglobin 11, platelets 157. On 12/07/2017, wh ite count 4.7, hemoglobin 10.3, platelets 149. On 12/07/2017, sodium 136, potassium 4, chloride 96, bicarb 33, BUN 25, creatinine 6.90, glucose 113, TSH 2.31, and hemoglobin A1c 5.1. Upon admission, h is potassium was 5.9, creatinine 9.80, BUN 47. Final Diagnoses: 1.Acute diverticulitis without abscess, without perforation. 2.Hyperkalemia. 3.End-stage renal disease, on hemodialysis. 4.Anemia due to chronic kidney disease. 5.Coronary artery disease. 6.Congestive heart failure, chronic, systolic. 7.Gastroesophageal reflux disease. 8.Cervical spondylosis with radiculopathy. 9.Prostate cancer. 10.Osteoarthritis, multiple sites. 11.Sleep apnea. Discharge Medications And Instructions: 1.Continue all prior home medications. 2.Take Augmentin 500 mg 1 tablet by mouth daily with food for 10 days, and follow up at my office in 2 weeks. 3.The patient was instructed to take his Augmentin with food and on dialysis days. He was advised t o take it after dialysis and not before dialysis. Hospital Course: A 77-year-old male patient admitted to the hospital with abdominal pain. Please se e dictated H and P for more information. After the patient was evaluated in the ER, he was admitted to the hospital with acute diverticulitis. No complication due to this diverticulitis noted on the C AT scan. The patient was started on empiric IV antibiotic which is ceftriaxone and metronidazole. N ephrology consultation was obtained from his space operations officer for dialysis needs. His last dialysis sess ion was early this morning. His potassium came down to normal. He had urgent dialysis on the day of admission with hyperkalemia problem. His home medications were continued. His other medical proble ms remained stable and abdominal pain actually got resolved. Initially, he was on clear liquid diet. Subsequently, we advanced it to renal diet. He is tolerating diet very well. ODESSA/MODL Voice ID: [id number] Report ID: [id number]
== END 2017-12-09 10:08 | disposition home or self-care (01) | DRG 391 ==
LOC: ER 13:59 → ERHOLD 18:58 → 4TH 20:21
PROVIDERS: ADMIT Internal Medicine; ATTEND Internal Medicine
PROC: 5A1D70Z Performance of Urinary Filtration, Intermittent, Less than 6 Hours Per Day (ICD-10-PCS; principal; 2017-12-06)
DX: K57.92 Diverticulitis of intestine, part unspecified, without perforation or abscess without bleeding (principal); N18.6 End stage renal disease; I13.2 Hypertensive heart and chronic kidney disease with heart failure and with stage 5 chronic kidney disease, or end stage renal disease; I50.22 Chronic systolic (congestive) heart failure; N25.81 Secondary hyperparathyroidism of renal origin; Z68.41 Body mass index [BMI] 40.0-44.9, adult; E87.5 Hyperkalemia; Z99.2 Dependence on renal dialysis; D63.1 Anemia in chronic kidney disease; I25.10 Atherosclerotic heart disease of native coronary artery without angina pectoris; K21.9 Gastro-esophageal reflux disease without esophagitis; M47.22 Other spondylosis with radiculopathy, cervical region; Z85.46 Personal history of malignant neoplasm of prostate; M15.9 Polyosteoarthritis, unspecified; G47.30 Sleep apnea, unspecified; Z79.02 Long term (current) use of antithrombotics/antiplatelets; Z95.810 Presence of automatic (implantable) cardiac defibrillator; N25.0 Renal osteodystrophy; Z88.1 Allergy status to other antibiotic agents; Z91.041 Radiographic dye allergy status; Z91.013 Allergy to seafood; E66.9 Obesity, unspecified; Z93.0 Tracheostomy status; Z99.81 Dependence on supplemental oxygen
CPT/HCPCS: 36415; 71045; 74176; 80048; 80076; 82150; 82962; 83036; 83690; 84443; 85025; 86317; 86704; 86706; 87340; 87493; 90935; 93005; 94640; 96365; 96367; 96375; 99285; J0696; J0744; J1644; J2405

== ENCOUNTER 2018-01-23 22:08 | Emergency (ER) | payer OTHER, MEDICARE ==
--- NOTE | 2018-01-24 00:39 | ER ---
Nurse's Notes [facility] Name: Sergio Perez Age: 78 yrs Sex: Male : 1940 Arrival Date: 01/23/2018 Time: 22:09 Bed 15 Private MD: Anmol Salazar Diagnosis: Pain in left ankle and joints of left foot;Edema, unspecified-Left pedal edema Presentation: 01/23 22:10 Presenting complaint: Patient states: left leg and ankle pain and swelling since last cc3 night. Transition of care: patient was not received from another setting of care. Onset of symptoms was January 22, 2018. Risk Assessment: Do you want to hurt yourself or someone else? Patient reports no desire to harm self or others. Initial Sepsis Screen: Does the patient meet any 2 criteria? No. Patient's initial sepsis screen is negative. Does the patient have a suspected source of infection? No. Patient's initial sepsis screen is negative. Care prior to arrival: None. 22:10 Method Of Arrival: Wheelchair cc3 22:10 Acuity: KARLENE 3 cc3 Triage Assessment: 22:10 General: Appears in no apparent distress. comfortable, Behavior is calm, cooperative, cc3 appropriate for age. Pain: Complains of pain in left leg and ankle Pain currently is 8 out of 10 on a pain scale. Quality of pain is described as aching, Pain began 1 day ago. EENT: No signs and/or symptoms were reported regarding the EENT system. Neuro: Level of Consciousness is awake, alert, obeys commands, Oriented to person, place, time, situation, Appropriate for age. Cardiovascular: Denies chest pain. Cardiovascular: Patient's skin is warm and dry. Respiratory: Airway is patent via trache with tracheostomy tube Respiratory effort is even, unlabored, Respiratory pattern is regular, symmetrical. GI: Abdomen is round obese. : No signs and/or symptoms were reported regarding the genitourinary system. Derm: swelling on bilateral lower limbs but more on the left leg and ankle. Musculoskeletal: Range of motion: intact in all extremities, Swelling present in left leg and ankle. Historical: - Allergies: 22:10 Cipro; cc3 22:10 Iodine; cc3 22:10 SHELLFISH; cc3 - Home Meds: 22:10 Nitroglycerin 0.4 mg Oral as needed [Active]; aspirin 81 mg oral TbEC 1 tab twice daily cc3 [Active]; Ferrous Sulfate 65 mg Oral 1x daily [Active]; Tums Oral 2 tabs per meal [Active]; fluticasone 50 mcg/actuation nasal spsn 1 spray 2 times per day [Active]; vitamin d1 tablet 2000 IU daily [Active]; zinc sulfate 220 (50) mg Oral cap daily [Active]; vitamin A 8,000 unit Oral cap 1 cap once daily [Active]; allopurinol 200 mg Oral 2 tabs daily [Active]; omeprazole 20 mg Oral TbEC twice a day [Active]; clopidogrel 75 mg oral tab 1 tab once daily [Active]; amiodarone 200 mg oral tab 0.5 tab daily [Active]; ipratropium bromide 0.02 % inhalation soln 2.5 mL 4 times per day [Active]; albuterol sulfate 2.5 mg /3 mL (0.083 %) Inhl nebu 1 vial daily [Active]; indura 800 mg 2 tabs before each meal TID [Active]; gabapentin oral oral 1 tab 3 times per day [Active]; - PMHx: 22:10 CHF; COPD; Diabetes - NIDDM; Dialysis; M-W-F; ESRD; Gout; GERD; Hypertension; cc3 Pacemaker; with defib; - Immunization history:: Adult Immunizations up to date. - Social history:: Smoking status: Patient/guardian denies using tobacco, never smoked. - Ebola Screening: : No symptoms or risks identified at this time. Screenin:10 Abuse screen: Denies threats or abuse. Denies injuries from another. Nutritional cc3 screening: No deficits noted. Tuberculosis screening: No symptoms or risk factors identified. Fall Risk Ambulatory Aid- None/Bed Rest/Nurse Assist (0 pts). Gait- Normal/Bed Rest/Wheelchair (0 pts) Mental Status- Oriented to own ability (0 pts). Assessment: 22:15 General: see triage assessment. cc3 23:20 Reassessment: Patient appears in no apparent distress at this time. Patient and/or cc3 family updated on plan of care and expected duration. Pain level reassessed. Patient is alert, oriented x 3, equal unlabored respirations, skin warm/dry/pink. 01/24 00:20 Reassessment: Patient appears in no apparent distress at this time. Patient and/or cc3 family updated on plan of care and expected duration. Pain level reassessed. Patient is alert, oriented x 3, equal unlabored respirations, skin warm/dry/pink. 01:00 Reassessment: Patient appears in no apparent distress at this time. Patient and/or cc3 family updated on plan of care and expected duration. Pain level reassessed. Patient is alert, oriented x 3, equal unlabored respirations, skin warm/dry/pink. Patient was ordered for discharge home already by RARE/ENDANGERED SPECIES SPECIALIST Moisés but to keep in the ER room 15 while waiting for his ride home at 0600H in the morning as per charge nurse Maria Luz. 02:30 Reassessment: Patient appears in no apparent distress at this time. Patient and/or cc3 family updated on plan of care and expected duration. Pain level reassessed. Patient is alert, oriented x 3, equal unlabored respirations, skin warm/dry/pink. 03:36 Reassessment: Patient appears in no apparent distress at this time. patient comfortably cc3 sleeping, kept undisturbed. 04:45 Reassessment: Patient appears in no apparent distress at this time. Patient and/or cc3 family updated on plan of care and expected duration. Pain level reassessed. Patient is alert, oriented x 3, equal unlabored respirations, skin warm/dry/pink. 05:30 Reassessment: Patient appears in no apparent distress at this time. Patient and/or cc3 family updated on plan of care and expected duration. Pain level reassessed. Patient is alert, oriented x 3, equal unlabored respirations, skin warm/dry/pink. 06:16 Reassessment: Patient appears in no apparent distress at this time. Patient and/or cc3 family updated on plan of care and expected duration. Pain level reassessed. Patient is alert, oriented x 3, equal unlabored respirations, skin warm/dry/pink. Called the patient's granddaughter named Alicja on her mobile number [phone] and she said she's on her way to the hospital to fetch his grandfather. 06:20 Reassessment: Patient's granddaughter came and the patient left ER vitally stable by cc3 wheelchair with her granddaughter; discharge instructions provided. Vital Signs: 01/23 22:10 BP 121 / 79; Pulse 87; Resp 20; Temp 99(O); Pulse Ox 96% on R/A; Weight 137.44 kg; cc3 Height 5 ft. 11 in. (180.34 cm); Pain 8/10; 23:30 BP 118 / 65; Pulse 83; Resp 18 S; Pulse Ox 100% on R/A; cc3 01/24 00:00 BP 142 / 79; Pulse 84; Resp 18 S; Pulse Ox 100% on R/A; cc3 01:00 BP 142 / 76; Pulse 84; Resp 20 S; Pulse Ox 100% on R/A; cc3 02:15 BP 112 / 70; Pulse 74; Resp 18 S; Pulse Ox 97% on R/A; cc3 03:30 BP 108 / 88; Pulse 74; Resp 18 S; Pulse Ox 97% on R/A; cc3 04:41 BP 131 / 76; Pulse 98; Resp 20 S; Pulse Ox 98% on R/A; cc3 05:30 BP 134 / 77; Pulse 97; Resp 19 S; Pulse Ox 100% on R/A; cc3 06:10 BP 129 / 87; Pulse 99; Resp 20 S; Pulse Ox 97% on R/A; cc3 01/23 22:10 Body Mass Index 42.26 (137.44 kg, 180.34 cm) cc3 ED Course: 01/23 22:09 Patient arrived in ED. am2 22:09 Anmol Salazar MD is Private Physician. am2 22:10 Arm band placed on left wrist. cc3 22:10 Patient has correct armband on for positive identification. Bed in low position. Call cc3 light in reach. Side rails up X 1. surveillance system monitor on. Pulse ox on. NIBP on. 22:15 Shauna Ramirez is Primary Nurse. cc3 22:18 Moisés Le NP is PHCP. pm1 22:18 Mark Almaguer MD is Attending Physician. pm1 22:26 Triage completed. cc3 23:13 Ultrasound completed. Patient tolerated well. sg3 23:14 Extremity Venous Uni Ltd US In Process Unspecified. EDMS 23:16 Notified RARE/ENDANGERED SPECIES SPECIALIST/[place] shore. sg3 23:35 X-ray completed. Portable x-ray completed in exam room. Patient tolerated procedure mh1 well. 23:46 Ankle Left 3 View XRAY In Process Unspecified. EDMS 01/24 06:20 No provider procedures requiring assistance completed. Patient did not have IV access cc3 during this emergency room visit. Administered Medications: 00:50 Drug: Tylenol #3 (300 mg-30 mg) 1 tablet Route: PO; cc3 01:30 Follow up: Response: No adverse reaction cc3 Outcome: 00:38 Discharge ordered by MD. pm1 06:20 Discharged to home via wheelchair, with family. cc3 06:20 Condition: stable 06:20 Discharge instructions given to patient, family, Instructed on discharge instructions, follow up and referral plans. medication usage, Demonstrated understanding of instructions, follow-up care, medications, Prescriptions given X 1. 06:27 Patient left the ED. cc3 Signatures: Dispatcher [employer] EDMS Almaz Clark 1 Moisés Le, RARE/ENDANGERED SPECIES SPECIALIST RARE/ENDANGERED SPECIES SPECIALIST pm1 Tamara Arcos am2 Karen Moise sg3 Shauna Ramirez cc3 Corrections: (The following items were deleted from the chart) 03:42 03:30 BP 108 / 88; Pulse 74bpm; Resp 18bpm; Pulse Ox 97% RA; cc3 cc3 03:44 01:00 Reassessment: Patient appears in no apparent distress at this time. Patient cc3 and/or family updated on plan of care and expected duration. Pain level reassessed. Patient is alert, oriented x 3, equal unlabored respirations, skin warm/dry/pink. Patient discharged home already but to keep in the ER while waiting for his ride home at 0600H in the morning as per charge nurse Maria Luz. cc3
--- NOTE | 2018-01-24 00:39 | EDPHYS ---
Physician Documentation [facility] Name: Sergio Perez Age: 78 yrs Sex: Male : 1940 Arrival Date: 01/23/2018 Time: 22:09 Bed 15 Private MD: Anmol Salazar ED Physician Mark Almaguer HPI: 01/23 23:00 This 78 yrs old Black Male presents to ER via Wheelchair with complaints of Ankle pm1 Swelling. 23:00 The patient presents with pain, swelling. The complaints affect the left ankle. Onset: pm1 The symptoms/episode began/occurred last night. Context: The problem was sustained at home, resulted from an unknown cause, The patient can fully bear weight on the affected extremity. the patient is able to ambulate. Associated signs and symptoms: Pertinent positives: swelling, Pertinent negatives: calf tenderness, numbness, tingling. Modifying factors: The symptoms are alleviated by nothing, the symptoms are aggravated by movement. Severity of symptoms: in the emergency department the symptoms are unchanged. The patient has not experienced similar symptoms in the past. The patient has not recently seen a physician. No chest pain or shortness of breath. Pain to left ankle comes and goes. Swelling present to left ankle area. No swelling present to right leg. Historical: - Allergies: 22:10 Cipro; cc3 22:10 Iodine; cc3 22:10 SHELLFISH; cc3 - Home Meds: 22:10 Nitroglycerin 0.4 mg Oral as needed [Active]; aspirin 81 mg oral TbEC 1 tab twice daily cc3 [Active]; Ferrous Sulfate 65 mg Oral 1x daily [Active]; Tums Oral 2 tabs per meal [Active]; fluticasone 50 mcg/actuation nasal spsn 1 spray 2 times per day [Active]; vitamin d1 tablet 2000 IU daily [Active]; zinc sulfate 220 (50) mg Oral cap daily [Active]; vitamin A 8,000 unit Oral cap 1 cap once daily [Active]; allopurinol 200 mg Oral 2 tabs daily [Active]; omeprazole 20 mg Oral TbEC twice a day [Active]; clopidogrel 75 mg oral tab 1 tab once daily [Active]; amiodarone 200 mg oral tab 0.5 tab daily [Active]; ipratropium bromide 0.02 % inhalation soln 2.5 mL 4 times per day [Active]; albuterol sulfate 2.5 mg /3 mL (0.083 %) Inhl nebu 1 vial daily [Active]; indura 800 mg 2 tabs before each meal TID [Active]; gabapentin oral oral 1 tab 3 times per day [Active]; - PMHx: 22:10 CHF; COPD; Diabetes - NIDDM; Dialysis; M-W-F; ESRD; Gout; GERD; Hypertension; cc3 Pacemaker; with defib; - Immunization history:: Adult Immunizations up to date. - Social history:: Smoking status: Patient/guardian denies using tobacco, never smoked. - Ebola Screening: : No symptoms or risks identified at this time. ROS: 23:00 Constitutional: Negative for fever, chills, and weight loss, Eyes: Negative for injury, pm1 pain, redness, and discharge, ENT: Negative for injury, pain, and discharge, Neck: Negative for injury, pain, and swelling, Cardiovascular: Negative for chest pain, palpitations, and edema, Respiratory: Negative for shortness of breath, cough, wheezing, and pleuritic chest pain, Abdomen/GI: Negative for abdominal pain, nausea, vomiting, diarrhea, and constipation, Back: Negative for injury and pain, : Negative for injury, bleeding, discharge, and swelling. 23:00 Skin: Negative for injury, rash, and discoloration, Neuro: Negative for headache, weakness, numbness, tingling, and seizure. 23:00 MS/extremity: Positive for pain, swelling, of the left ankle, Negative for decreased range of motion, deformity. Exam: 23:00 Constitutional: This is a well developed, well nourished patient who is awake, alert, pm1 and in no acute distress. Head/Face: Normocephalic, atraumatic. Eyes: Pupils equal round and reactive to light, extra-ocular motions intact. Lids and lashes normal. Conjunctiva and sclera are non-icteric and not injected. Cornea within normal limits. Periorbital areas with no swelling, redness, or edema. ENT: Nares patent. No nasal discharge, no septal abnormalities noted. Tympanic membranes are normal and external auditory canals are clear. Oropharynx with no redness, swelling, or masses, exudates, or evidence of obstruction, uvula midline. Mucous membranes moist. Neck: Trachea midline, no thyromegaly or masses palpated, and no cervical lymphadenopathy. Supple, full range of motion without nuchal rigidity, or vertebral point tenderness. No Meningismus. Chest/axilla: Normal chest wall appearance and motion. Nontender with no deformity. No lesions are appreciated. Cardiovascular: Regular rate and rhythm with a normal S1 and S2. No gallops, murmurs, or rubs. Normal PMI, no JVD. No pulse deficits. Respiratory: Lungs have equal breath sounds bilaterally, clear to auscultation and percussion. No rales, rhonchi or wheezes noted. No increased work of breathing, no retractions or nasal flaring. Abdomen/GI: Soft, non-tender, with normal bowel sounds. No distension or tympany. No guarding or rebound. No evidence of tenderness throughout. Back: No spinal tenderness. No costovertebral tenderness. Full range of motion. Skin: Warm, dry with normal turgor. Normal color with no rashes, no lesions, and no evidence of cellulitis. 23:00 Musculoskeletal/extremity: Extremities: grossly normal except: noted in the left ankle: swelling, tenderness, ROM: full active range of motion, in the left leg, Sensation intact. Vital Signs: 22:10 BP 121 / 79; Pulse 87; Resp 20; Temp 99(O); Pulse Ox 96% on R/A; Weight 137.44 kg; cc3 Height 5 ft. 11 in. (180.34 cm); Pain 8/10; 23:30 BP 118 / 65; Pulse 83; Resp 18 S; Pulse Ox 100% on R/A; cc3 01/24 00:00 BP 142 / 79; Pulse 84; Resp 18 S; Pulse Ox 100% on R/A; cc3 01:00 BP 142 / 76; Pulse 84; Resp 20 S; Pulse Ox 100% on R/A; cc3 02:15 BP 112 / 70; Pulse 74; Resp 18 S; Pulse Ox 97% on R/A; cc3 03:30 BP 108 / 88; Pulse 74; Resp 18 S; Pulse Ox 97% on R/A; cc3 04:41 BP 131 / 76; Pulse 98; Resp 20 S; Pulse Ox 98% on R/A; cc3 05:30 BP 134 / 77; Pulse 97; Resp 19 S; Pulse Ox 100% on R/A; cc3 06:10 BP 129 / 87; Pulse 99; Resp 20 S; Pulse Ox 97% on R/A; cc3 01/23 22:10 Body Mass Index 42.26 (137.44 kg, 180.34 cm) cc3 MDM: 01/23 22:18 Patient medically screened. pm1 01/24 00:00 Differential diagnosis: fracture, sprain, edema, diabetic neuropathy. pm1 00:37 Data reviewed: vital signs. Data interpreted: Pulse oximetry: on room air is 96 %. pm1 Interpretation: normal. Counseling: I had a detailed discussion with the patient and/or guardian regarding: the historical points, exam findings, and any diagnostic results supporting the discharge/admit diagnosis, radiology results, the need for outpatient follow up, to return to the emergency department if symptoms worsen or persist or if there are any questions or concerns that arise at home. 01/23 22:47 Order name: Extremity Venous Uni Ltd pm1 01/23 22:47 Order name: Ankle Left 3 View XRAY pm1 Administered Medications: 00:50 Drug: Tylenol #3 (300 mg-30 mg) 1 tablet Route: PO; cc3 01:30 Follow up: Response: No adverse reaction cc3 Disposition: 01/24/18 00:38 Discharged to Home. Impression: Pain in left ankle and joints of left foot, Edema, unspecified - Left pedal edema. - Condition is Stable. - Discharge Instructions: Edema, Ankle Pain. - Prescriptions for Tylenol- Codeine #3 300-30 mg Oral Tablet - take 1 tablet by ORAL route every 12 hours As needed; 12 tablet. - Medication Reconciliation Form, Thank You Letter, Antibiotic Education, Prescription Opioid Use form. - Follow up: Emergency Department; When: As needed; Reason: Worsening of condition. Follow up: Private Physician; When: 2 - 3 days; Reason: Recheck today's complaints, Continuance of care, Re-evaluation by your physician. - Problem is new. - Symptoms have improved. Addendum: 01/25/2018 18:54 Co-signature as Attending Physician, Mark Almaguer MD. g s Signatures: Dispatcher [employer] EDMS Moisés Le, CARDROOM HAND CARDROOM HAND pm1 Mark Almaguer MD MD gs Cordel, Charlene cc3 Corrections: (The following items were deleted from the chart) 01/24 06:27 00:38 01/24/2018 00:38 Discharged to Home. Impression: Pain in left ankle and joints of cc3 left foot; Edema, unspecified - Left pedal edema. Condition is Stable. Forms are Medication Reconciliation Form, Thank You Letter, Antibiotic Education, Prescription Opioid Use. Follow up: Emergency Department; When: As needed; Reason: Worsening of condition. Follow up: Private Physician; When: 2 - 3 days; Reason: Recheck today's complaints, Continuance of care, Re-evaluation by your physician. Problem is new. Symptoms have improved. pm1
[2018-01-24] MEDS ORDERED: CODEINE 30MG/APAP 300MG TAB ONE (00:54)
[2018-01-24 06:46] VITALS: TEMP 99
[2018-01-24 06:54] VITALS: BP 129/87; O2SAT 97
--- NOTE | 2018-01-24 10:56 | RAD REPORT ---
EXAM DESCRIPTION: RAD - Ankle Left 3 View - 01/23/2018 11:46 pm CLINICAL HISTORY: PAIN COMPARISON: No comparisons FINDINGS: Diffuse osteopenia with soft tissue swelling present. No acute fracture or dislocation. Sm all calcaneal spurs. Prominent vascular calcifications.
--- NOTE | 2018-01-24 10:57 | RAD REPORT ---
EXAM DESCRIPTION: US - Extremity Venous Uni Ltd - 01/23/2018 11:14 pm CLINICAL HISTORY: PAIN Leg swelling and edema. COMPARISON: Upper Lower Extrem Art Multi dated 07/29/2016 FINDINGS: Left lower extremity venous system was interrogated with Doppler technique. Normal flow, c ompressibility and augmentation was noted. There is no DVT present. IMPRESSION: No evidence of left lower extremity deep venous thrombosis.
== END 2018-01-24 06:27 | disposition home or self-care (01) ==
LOC: ER 22:08
DX: R60.9 Edema, unspecified (principal); E11.22 Type 2 diabetes mellitus with diabetic chronic kidney disease; I12.0 Hypertensive chronic kidney disease with stage 5 chronic kidney disease or end stage renal disease; N18.6 End stage renal disease; I50.9 Heart failure, unspecified; J44.9 Chronic obstructive pulmonary disease, unspecified; Z79.82 Long term (current) use of aspirin; Z95.0 Presence of cardiac pacemaker; Z99.2 Dependence on renal dialysis; Z88.1 Allergy status to other antibiotic agents; Z91.013 Allergy to seafood; Z91.048 Other nonmedicinal substance allergy status
CPT/HCPCS: 93971; 99284

== ENCOUNTER 2018-04-12 20:39 | Inpatient (IN) | payer OTHER, MEDICARE ==
--- NOTE | 2018-04-12 21:36 | RAD REPORT ---
EXAM DESCRIPTION: RAD - Chest Single View - 04/12/2018 9:09 pm CLINICAL HISTORY: Shortness of breath COMPARISON: December 08 TECHNIQUE: AP portable chest image was obtained 6 hours . FINDINGS: Lung volumes are low. No pulmonary edema or focal lung parenchymal process seen. Lung cecilia ings are not clearly different from comparison. Right-side pacemaker/defibrillator remains in place. Trach tube is in place. Trachea is midline. Hear t and vasculature are normal. No measurable pleural effusion and no pneumothorax. No acute bony abnor mality seen. No acute aortic findings suspected. IMPRESSION: No acute cardiopulmonary process. Chest is not significantly different from December 08 imaging.
[2018-04-12 21:43] LABS: Absolute Monocytes 0.9 K/uL (0.1-1.3); Absolute Neutrophil 8.1 K/uL (1.8-8.0); Basophils % 0.7 % (0-1.3); Eosinophils % 2.4 % (0-4.4); MPV 9.6 fL (7.6-11.3); Monocytes % 8.8 % (3.3-12.3); RBC Red Blood Cell Count 3.69 M/uL (4.33-5.43)
[2018-04-12 21:46] LABS: Protime INR 1.17
[2018-04-12 22:51] LABS: Albumin 3.8 g/dL (3.4-5.0); Bilirubin Direct 0.2 mg/dL (0-0.2); Bilirubin Total 0.5 mg/dL (0.2-1.0); Magnesium 2.2 mg/dL (1.8-2.4); Potassium 4.7 mmol/L (3.5-5.1); Protein, Total 8.7 g/dL (6.4-8.2); Troponin (Emerg Dept Use Only) 0.04 ng/mL (0.0-0.045)
--- NOTE | 2018-04-13 00:03 | ER ---
Nurse's Notes [facility] Name: Sergio Perez Age: 78 yrs Sex: Male : 1940 Arrival Date: 04/12/2018 Time: 20:43 Bed 6 Private MD: Diagnosis: Dyspnea;Acute bronchitis Presentation: 04/12 20:50 Presenting complaint: Patient states: Reports runny nose and excess phlegm coming out ea of trache. Pt reports he has been feeling sick since Thursday. Transition of care: patient was not received from another setting of care. Onset of symptoms was April 12, 2018. Risk Assessment: Do you want to hurt yourself or someone else? Patient reports no desire to harm self or others. Initial Sepsis Screen: Does the patient meet any 2 criteria? RR > 20 per min. HR > 90 bpm. Yes Does the patient have a suspected source of infection? Yes: Productive cough/pneumonia. Care prior to arrival: None. 20:50 Method Of Arrival: Wheelchair ea 20:50 Acuity: KARLENE 2 ea Triage Assessment: 20:54 General: Appears uncomfortable, Behavior is appropriate for age, restless. Pain: Denies ea pain. Neuro: Level of Consciousness is awake, alert, obeys commands, Oriented to person, place, time, situation. Respiratory: Reports shortness of breath at rest cough that is productive, Airway is patent Respiratory effort is even, labored, Respiratory pattern is tachypnea Pt has a tracheostomy Onset: The symptoms/episode began/occurred Reports he has been feeling ill since Thursday but became really short of breath today, the patient has moderate shortness of breath. Derm: Skin is pink, warm \T\ dry. Historical: - Allergies: 21:13 Cipro; ak1 21:13 Iodine; ak1 21:13 SHELLFISH; ak1 - Home Meds: 21:13 albuterol sulfate 2.5 mg /3 mL (0.083 %) Inhl nebu 1 vial daily [Active]; allopurinol ak1 200 mg Oral 2 tabs daily [Active]; amiodarone 200 mg Oral tab 0.5 tab daily [Active]; aspirin 81 mg Oral TbEC 1 tab twice daily [Active]; clopidogrel 75 mg Oral tab 1 tab once daily [Active]; Ferrous Sulfate 65 mg Oral 1x daily [Active]; fluticasone 50 mcg/actuation nasal spsn 1 spray 2 times per day [Active]; gabapentin Oral 1 tab 3 times per day [Active]; indura 800 mg 2 tabs before each meal TID [Active]; ipratropium bromide 0.02 % inhalation soln 2.5 mL 4 times per day [Active]; nitroglycerin 0.4 mg Oral as needed [Active]; omeprazole 20 mg Oral TbEC twice a day [Active]; Tums Oral 2 tabs per meal [Active]; vitamin A 8,000 unit Oral cap 1 cap once daily [Active]; vitamin d1 tablet 2000 IU daily [Active]; zinc sulfate 220 (50) mg Oral cap daily [Active]; - PMHx: 21:13 CHF; COPD; Diabetes - NIDDM; Dialysis; M-W-F; ESRD; Pacemaker; with defib; ak1 Hypertension; Gout; GERD; - Immunization history:: Adult Immunizations up to date. - Social history:: Smoking status: Patient/guardian denies using tobacco. - Ebola Screening: : No symptoms or risks identified at this time. Screenin:53 Abuse screen: Denies threats or abuse. Nutritional screening: No deficits noted. ea Tuberculosis screening: No symptoms or risk factors identified. Fall Risk None identified. Assessment: 20:54 Reassessment: see triage assessment. ea 21:14 Cardiovascular: Rhythm is ak1 21:15 Reassessment: Patient appears in no apparent distress at this time. No changes from ak1 previously documented assessment. see triage assessment. 22:04 Reassessment: Patient and/or family updated on plan of care and expected duration. Pain ea level reassessed. Patient is alert, oriented x 3, equal unlabored respirations, skin warm/dry/pink. Patient states symptoms have improved. 23:08 Reassessment: Patient appears in no apparent distress at this time. No changes from ak1 previously documented assessment. Patient and/or family updated on plan of care and expected duration. Pain level reassessed. Patient is alert, oriented x 3, equal unlabored respirations, skin warm/dry/pink. Patient states feeling better. Patient states symptoms have improved. 04/13 00:02 Reassessment: Patient appears in no apparent distress at this time. No changes from ak1 previously documented assessment. Patient and/or family updated on plan of care and expected duration. Pain level reassessed. Patient is alert, oriented x 3, equal unlabored respirations, skin warm/dry/pink. Patient states feeling better. Patient states symptoms have improved. 00:35 Respiratory: Airway is patent Breath sounds are clear. ak1 Vital Signs: 04/12 20:53 BP 97 / 59; Pulse 101; Resp 22; Temp 98; Pulse Ox 99% on R/A; Weight 136.98 kg; Height ea 5 ft. 11 in. (180.34 cm); 21:45 BP 95 / 63; Pulse 97; Resp 20; Pulse Ox 97% ; ea 22:25 BP 107 / 55; Pulse 90; Resp 20; Pulse Ox 97% on R/A; Pain 0/10; ak1 23:08 BP 106 / 59; Pulse 91; Resp 20; Temp 98.3; Pulse Ox 97% on R/A; Pain 0/10; ak1 04/13 00:02 BP 105 / 65; Pulse 95; Resp 20; Pulse Ox 98% on R/A; ak1 01:32 BP 101 / 71; Pulse 91; Resp 22; Temp 98.2; Pulse Ox 97% on R/A; fc 04/12 20:53 Body Mass Index 42.12 (136.98 kg, 180.34 cm) ea ED Course: 04/12 20:43 Patient arrived in ED. bb 20:43 Bri Keane, SHAI is Primary Nurse. bb 20:46 Mark Almaguer MD is Attending Physician. gs 20:52 Triage completed. ea 20:52 Patient has correct armband on for positive identification. Bed in low position. Call ea light in reach. Side rails up X2. 20:52 Arm band placed on right wrist. Patient placed in an exam room, on a stretcher, on ea pulse oximetry. 21:10 XRAY Chest (1 view) In Process Unspecified. EDMS 21:15 Missed attempt(s): 22 gauge in right hand. Bleeding controlled, band aid applied, ak1 catheter tip intact. 21:20 Initial lab(s) drawn, by me, sent to lab. First set of blood cultures drawn by me. fc Inserted saline lock: 22 gauge in right forearm, using aseptic technique. Blood collected. 04/13 00:02 Colleen Capellan MD is Hospitalizing Provider. gs 00:34 No provider procedures requiring assistance completed. Patient admitted, IV remains in ak1 place. Administered Medications: No medications were administered Outcome: 00:02 Decision to Hospitalize by Provider. 00:34 Condition: good ak1 00:34 Instructed on the need for admit. 01:33 Admitted to Tele accompanied by tech, room 216, with chart, Report called to Jessica rutherford 01:58 Patient left the ED. ea Signatures: Dispatcher [employer] EDMS Maria Luz Benjamin RN RN Bri Keane RN RN bb Krenek, Amber, RN RN [facility] Josselin Rosa RN RN ea Starr, Gregory, MD MD
--- NOTE | 2018-04-13 00:04 | EDPHYS ---
Physician Documentation [facility] Name: Sergio Perez Age: 78 yrs Sex: Male : 1940 Arrival Date: 04/12/2018 Time: 20:43 Bed 6 Private MD: ED Physician Mark Almaguer HPI: 04/12 22:51 This 78 yrs old Black Male presents to ER via Wheelchair with complaints of Shortness gs Of Breath. 22:51 The patient has shortness of breath at rest, during heavy activity. Onset: The gs symptoms/episode began/occurred today. Duration: The symptoms are continuous. The patient's shortness of breath is aggravated by coughing. Associated signs and symptoms: Pertinent negatives: fever. Severity of symptoms: At their worst the symptoms were moderate in the emergency department the symptoms are unchanged. The patient has experienced similar episodes in the past, multiple times, chronically. The patient has not recently seen a physician. Historical: - Allergies: 21:13 Cipro; ak1 21:13 Iodine; ak1 21:13 SHELLFISH; ak1 - Home Meds: 21:13 albuterol sulfate 2.5 mg /3 mL (0.083 %) Inhl nebu 1 vial daily [Active]; allopurinol ak1 200 mg Oral 2 tabs daily [Active]; amiodarone 200 mg Oral tab 0.5 tab daily [Active]; aspirin 81 mg Oral TbEC 1 tab twice daily [Active]; clopidogrel 75 mg Oral tab 1 tab once daily [Active]; Ferrous Sulfate 65 mg Oral 1x daily [Active]; fluticasone 50 mcg/actuation nasal spsn 1 spray 2 times per day [Active]; gabapentin Oral 1 tab 3 times per day [Active]; indura 800 mg 2 tabs before each meal TID [Active]; ipratropium bromide 0.02 % inhalation soln 2.5 mL 4 times per day [Active]; nitroglycerin 0.4 mg Oral as needed [Active]; omeprazole 20 mg Oral TbEC twice a day [Active]; Tums Oral 2 tabs per meal [Active]; vitamin A 8,000 unit Oral cap 1 cap once daily [Active]; vitamin d1 tablet 2000 IU daily [Active]; zinc sulfate 220 (50) mg Oral cap daily [Active]; - PMHx: 21:13 CHF; COPD; Diabetes - NIDDM; Dialysis; M-W-F; ESRD; Pacemaker; with defib; ak1 Hypertension; Gout; GERD; - Immunization history:: Adult Immunizations up to date. - Social history:: Smoking status: Patient/guardian denies using tobacco. - Ebola Screening: : No symptoms or risks identified at this time. ROS: 22:51 Constitutional: Positive for malaise, Negative for fever. gs 22:51 All other systems are negative. Exam: 23:56 Head/Face: Normocephalic, atraumatic. Eyes: Pupils equal round and reactive to light, gs extra-ocular motions intact. Lids and lashes normal. Conjunctiva and sclera are non-icteric and not injected. Cornea within normal limits. Periorbital areas with no swelling, redness, or edema. ENT: Nares patent. No nasal discharge, no septal abnormalities noted. Tympanic membranes are normal and external auditory canals are clear. Oropharynx with no redness, swelling, or masses, exudates, or evidence of obstruction, uvula midline. Mucous membranes moist. Neck: Trachea midline, no thyromegaly or masses palpated, and no cervical lymphadenopathy. Supple, full range of motion without nuchal rigidity, or vertebral point tenderness. No Meningismus. Chest/axilla: Normal chest wall appearance and motion. Nontender with no deformity. No lesions are appreciated. Cardiovascular: Regular rate and rhythm with a normal S1 and S2. No gallops, murmurs, or rubs. Normal PMI, no JVD. No pulse deficits. Abdomen/GI: Soft, non-tender, with normal bowel sounds. No distension or tympany. No guarding or rebound. No evidence of tenderness throughout. Back: No spinal tenderness. No costovertebral tenderness. Full range of motion. Skin: Warm, dry with normal turgor. Normal color with no rashes, no lesions, and no evidence of cellulitis. MS/ Extremity: Pulses equal, no cyanosis. Neurovascular intact. Full, normal range of motion. Neuro: Awake and alert, GCS 15, oriented to person, place, time, and situation. Cranial nerves II-XII grossly intact. Motor strength 5/5 in all extremities. Sensory grossly intact. Cerebellar exam normal. Normal gait. 23:56 Constitutional: The patient appears alert, awake. 23:56 Respiratory: the patient does not display signs of respiratory distress, Respirations: tachypnea, that is mild, Breath sounds: rhonchi, that are moderate, are heard diffusely. 04/13 01:39 ECG was reviewed by the Attending Physician. Vital Signs: 04/12 20:53 BP 97 / 59; Pulse 101; Resp 22; Temp 98; Pulse Ox 99% on R/A; Weight 136.98 kg; Height ea 5 ft. 11 in. (180.34 cm); 21:45 BP 95 / 63; Pulse 97; Resp 20; Pulse Ox 97% ; ea 22:25 BP 107 / 55; Pulse 90; Resp 20; Pulse Ox 97% on R/A; Pain 0/10; ak1 23:08 BP 106 / 59; Pulse 91; Resp 20; Temp 98.3; Pulse Ox 97% on R/A; Pain 0/10; ak1 04/13 00:02 BP 105 / 65; Pulse 95; Resp 20; Pulse Ox 98% on R/A; ak1 01:32 BP 101 / 71; Pulse 91; Resp 22; Temp 98.2; Pulse Ox 97% on R/A; fc 04/12 20:53 Body Mass Index 42.12 (136.98 kg, 180.34 cm) ea MDM: 04/12 21:15 Patient medically screened. 23:56 Differential diagnosis: CHF exacerbation, Chronic Obstructive Pulmonary Disease gs Myocardial Infarction pneumonia. Data reviewed: vital signs, nurses notes. Counseling: I had a detailed discussion with the patient and/or guardian regarding: the historical points, exam findings, and any diagnostic results supporting the discharge/admit diagnosis. Response to treatment: the patient's symptoms have markedly improved after treatment, and as a result, I will admit patient. 04/13 00:02 ED course: pt in minimal distress, requesting observation . 04/12 20:46 Order name: Basic Metabolic Panel; Complete Time: 23:29 04/12 20:46 Order name: CBC with Diff; Complete Time: 22:03 04/12 20:46 Order name: LFT's; Complete Time: 23:29 04/12 20:46 Order name: Magnesium; Complete Time: 23:29 04/12 20:46 Order name: NT PRO-BNP; Complete Time: 23:29 04/12 20:46 Order name: PT-INR; Complete Time: 22:03 04/12 20:46 Order name: Troponin (emerg Dept Use Only); Complete Time: 23:29 04/12 21:18 Order name: Lactate; Complete Time: 23:29 04/12 21:18 Order name: Blood Culture* 04/12 21:18 Order name: Procalcitonin; Complete Time: 23:29 04/13 00:02 Order name: CBC with Automated Diff EDMS 04/13 00:02 Order name: CBC with Automated Diff EDMS 04/13 00:02 Order name: Comprehensive Metabolic Panel EDMS 04/13 00:02 Order name: Comprehensive Metabolic Panel EDMS 04/12 20:46 Order name: XRAY Chest (1 view); Complete Time: 21:41 04/12 20:46 Order name: EKG; Complete Time: 20:47 04/12 20:46 Order name: Cardiac monitoring; Complete Time: 20:58 04/12 20:46 Order name: EKG - Nurse/Tech; Complete Time: 20:58 04/12 20:46 Order name: IV Saline Lock; Complete Time: 21:36 04/12 20:46 Order name: Labs collected and sent; Complete Time: 21:36 04/12 20:46 Order name: O2 Per Protocol; Complete Time: 20:58 04/12 20:46 Order name: O2 Sat Monitoring; Complete Time: 20:58 04/13 00:02 Order name: Renal EDMS 04/13 00:02 Order name: Magnesium EDMS 04/13 00:02 Order name: Magnesium EDMS 04/13 00:02 Order name: Phosphorus EDMS 04/13 00:02 Order name: Phosphorus EDMS EC:39 Rate is 97 beats/min. Rhythm is regular. IA interval is normal. QRS interval is gs prolonged. T waves are Inverted. T waves are Flattened. Clinical impression: paced. Interpreted by me. Administered Medications: No medications were administered Disposition: 04/13/18 00:02 Hospitalization ordered by Colleen Capellan for Observation. Preliminary diagnosis are Dyspnea, Acute bronchitis. - Bed requested for Telemetry/MedSurg (observation). - Status is Observation. ea - Condition is Stable. - Problem is an acute exacerbation. - Symptoms have improved. UTI on Admission? No Signatures: Dispatcher [employer] EDMS Almaz Mcclendon RN Joy Baird RN RN Josselin Rivera RN Mark Coto ea, MD MD gs Corrections: (The following items were deleted from the chart) 01:25 00:02 Hospitalization Ordered by Colleen Capellan MD for Observation. Preliminary mw diagnosis is Dyspnea; Acute bronchitis. Bed requested for Telemetry/MedSurg (observation). Status is Observation. Condition is Stable. Problem is an acute exacerbation. Symptoms have improved. UTI on Admission? No. gs 01:58 01:25 04/13/2018 00:02 Hospitalization Ordered by Colleen Capellan MD for Observation. pam Preliminary diagnosis is Dyspnea; Acute bronchitis. Bed requested for Telemetry/MedSurg (observation). Status is Observation. Condition is Stable. Problem is an acute exacerbation. Symptoms have improved. UTI on Admission? No. mw
[2018-04-13] MEDS: IPRATROPIUM BROM 0.5MG/2.5ML NEB SCH ×5 (01:35→19:38)
[2018-04-13] MEDS: ALBUTEROL 2.5 MG/3 ML NEB SOL NEB SCH ×4 (01:35→19:38)
[2018-04-13] MEDS ORDERED: ALBUTEROL 2.5 MG/3 ML NEB SOL ONE (01:41)
[2018-04-13] MEDS ORDERED: IPRATROPIUM BROM 0.5MG/2.5ML ONE (01:42)
[2018-04-13 05:57] LABS: Absolute Lymphocytes (CBC) 1.2 K/uL (0.7-4.9); Absolute Monocytes 0.8 K/uL (0.1-1.3); Absolute Neutrophil 6.9 K/uL (1.8-8.0); Basophils % 0.9 % (0-1.3); Eosinophils % 2.7 % (0-4.4); Hematocrit 34.2 % (39.6-49.0); Lymphocytes % 13.3 % (15.3-44.8); MPV 10.1 fL (7.6-11.3); Monocytes % 8.8 % (3.3-12.3); RBC Red Blood Cell Count 3.53 M/uL (4.33-5.43)
[2018-04-13 06:00] LABS: Albumin 3.5 g/dL (3.4-5.0); Bilirubin Total 0.5 mg/dL (0.2-1.0); Magnesium 2.2 mg/dL (1.8-2.4); Phosphorus 3.9 mg/dL (2.5-4.9); Potassium 4.5 mmol/L (3.5-5.1); Protein, Total 7.9 g/dL (6.4-8.2)
--- NOTE | 2018-04-13 08:46 | EKG ---
Test Date: 2018-04-12 Test Time: 20:54:29 Nursing Surgical Services Director: TAMICA MEASUREMENT RESULTS: Intervals: Rate: 97 DE: 166 QRSD: 148 QT: 430 QTc: 546 Camargo: P: 17 DE: 166 QRS: -67 T: 85 INTERPRETIVE STATEMENTS: Atrial-sensed ventricular-paced rhythm Abnormal ECG Compared to ECG 12/06/2017 20:02:53 No significant changes Electronically Signed On 04-13-18 08:46:03 SEISMOMETER OPERATOR by Thomas Middleton
[2018-04-13] MEDS: HEPARIN 5000 UNIT/ML 1 ML VIAL SQ SCH ×2 (08:48→20:48)
[2018-04-13] MEDS: ONDANSETRON 4 MG/2 ML VIAL IV PRN ×2 (10:14→23:26)
--- NOTE | 2018-04-13 16:04 | P.HP ---
Certification for Inpatient Patient admitted to: Observation With expected LOS: <2 Midnights Patient will require the following post-hospital care: None Practitioner: I am a practitioner with admitting privileges, knowledge of patient current condition, hospital course, and medical plan of care. Services: Services provided to patient in accordance with Admission requirements found in Title 42 Section 412.3 of the Code of Federal Regulations Patient History Date of Service: 04/13/18 Reason for admission: Upper respiratory infection/pneumonia History of Present Illness: Patient is a 78-year-old gentleman who came into the hospital with increased congestion and persistent coughing through his trach site. The patient had a trach placed in 2002. Since that time, patient has had talks with his physicians about the trach being removed; however, they thought it may be too dangerous. Patient has kept the trach and has had recurrent infections. Patient did have Pseudomonas in 2015. He says he keeps his trach claimed at least once a day. Over the last couple of days, he has had increased congestion and yellowish discolored sputum. He denies a greenish tinge. He decided to come into the hospital for further evaluation. Allergies iodine [Iodine] Allergy (Intermediate, Verified 04/13/18 02:39) Itching SHELLFISH Allergy (Uncoded 06/02/15 15:35) Unknown Home Medications: Albuterol Neb [Proventil 0.083% Neb Soln] 1 amp NEB DAILY 04/13/18 Allopurinol [Zyloprim*] 2 tab PO DAILY 04/13/18 Amiodarone HCl [Cordarone*] 0.5 tab PO DAILY 04/13/18 Aspirin Chewable [Aspirin Chewable*] 2 tab PO DAILY 04/13/18 Cholecalciferol (Vitamin D3) [Vitamin D3] 1 cap PO DAILY 04/13/18 Clopidogrel Bisulfate [Plavix*] 75 mg PO DAILY 04/13/18 Famotidine/Ca Carb/Mag Hydrox [Tums Dual Action Tablet Chew] 2 tab PO TIDWM 05/01 Ferrous Sulfate [Ferrous Sulfate*] 1 tab PO DAILY 04/13/18 Fluticasone Propionate [Flonase Allergy Relief] 1 spray NS BID 04/13/18 Gabapentin [Neurontin*] 100 mg PO TID 04/13/18 Ipratropium Neb [Atrovent*] 1 amp NEB Q6HR 04/13/18 Nitroglycerin [Nitrostat] 0.4 mg SL PRN 04/13/18 Omeprazole 1 tab PO BID 04/13/18 Sevelamer Carbonate [Renvela*] 2 tab PO TID 04/13/18 Vitamin A 8,000 unit PO DAILY 04/13/18 Zinc 1 tab PO DAILY 04/13/18 - Past Medical/Surgical History Has patient received pneumonia vaccine in the past: Yes Diabetic: Yes -: NIDDM - not on any meds -: HTN -: ESRD -: gout -: GERD -: arthritis -: Diverticulitis -: dialysis: MWF -: anemia -: sleep apnea -: gout -: oa -: trach 06/2002 -: HD graft - L upper arm -: pacemaker - Family History Brother Medical History: Hypertension Mother Medical History: Heart disease, Hypertension Sister Medical History: Cancer Notes: breast cancer - Social History Smoking Status: Former smoker Alcohol use: No CD- Drugs: No Caffeine use: Yes Place of Residence: Home Review of Systems 10-point ROS is otherwise unremarkable Physical Examination - Vital Signs Temperature: 97.3 F Blood Pressure: 100/60 Pulse: 77 Respirations: 20 Pulse Ox (%): 91 - Physical Exam General: Alert, In no apparent distress, Oriented x3 HEENT: Atraumatic, PERRLA, Mucous membr. moist/pink, EOMI, Sclerae nonicteric Neck: Supple, 2+ carotid pulse no bruit, No LAD, Other (trach), Without JVD or thyroid abnormality Respiratory: Clear to auscultation bilaterally, Normal air movement Cardiovascular: Regular rate/rhythm, Normal S1 S2, No murmurs Gastrointestinal: Normal bowel sounds, Soft and benign, Non-distended, No tenderness Musculoskeletal: No clubbing, No swelling, No tenderness Integumentary: No rashes Neurological: Normal gait, Normal speech, Normal strength at 5/5 x4 extr, Normal tone, Sensation intact, Cranial nerves 3-12 intact, Normal affect Lymphatics: No axilla or inguinal lymphadenopathy - Studies Laboratory Data (last 24 hrs) 04/12/18 21:20: PT 13.8 H, INR 1.17 04/12/18 21:20: WBC 10.4, Hgb 11.5 L, Hct 36.0 L, Plt Count 157 12/31/18 21:20: Sodium 134 L, Potassium 4.7, BUN 22 H, Creatinine 6.82 H*, Glucose 111 H, Magnesium 2.2, Total Bilirubin 0.5, AST 12 L, ALT 12, Alkaline Phosphatase 125 H Microbiology Data (last 24 hrs): 04/12/18 21:20 Blood - Blood Anaerobic Blood Culture - Final Assessment & Plan - Problems (Diagnosis) (1) Acute exacerbation of chronic obstructive airways disease Onset Date: 07/02/15 Current Visit: No Status: Acute (2) CAD (coronary artery disease) Onset Date: 02/13/15 Current Visit: No Status: Acute (3) Diabetes mellitus Onset Date: 02/13/15 Current Visit: No Status: Acute (4) ESRD (end stage renal disease) Onset Date: 08/14/14 Current Visit: No Status: Acute (5) Prostate cancer Onset Date: 06/29/17 Current Visit: No Status: Acute (6) Congestive heart failure Onset Date: 07/02/15 Current Visit: No Status: Suspected - Plan Plan: 1. Continue with IV antibiotics 2. Awaiting sputum and blood culture; 3. Repeat chest x-ray in AM 4. Will order CT scan of the chest if pneumonia is not improving 5. Continue with nebs as needed 6. O2 per protocol 7. Continue with gentle hydration 8. Repeat labs including CBC and renal function in a.m. 9. GI and DVT prophylaxis Discharge Plan: Home Plan to discharge in: Greater than 2 days - Advance Directives Does patient have a Living Will: No Does patient have a Durable POA for Healthcare: No - Code Status/Comfort Care Code Status Assessed: Yes Code Status: Full Code Critical Care: No Time Spent Managing PTS Care (In Minutes): 50
[2018-04-13] MEDS: CA CARB PO SCH (17:00)
[2018-04-13] MEDS: MAG HYDROX PO SCH (17:00)
[2018-04-13] MEDS: FAMOTIDINE PO SCH (17:00)
[2018-04-13] MEDS: HOME MED 1 EA UNK (Fluticasone Propionate [Flonase Allergy Relief] 1 SPRAY) NS SCH (20:49)
[2018-04-13] MEDS ORDERED: GABAPENTIN 100 MG CAP PO SCH (21:00)
[2018-04-13] MEDS ORDERED: HOME MED 1 EA UNK (Omeprazole [Omeprazole] 1 TAB) PO SCH (21:00)
[2018-04-13] MEDS ORDERED: SEVELAMER CARBONATE 800 MG TABLET PO SCH (21:00)
[2018-04-13] MEDS: guaiFENesin 100 MG/5 ML UCUP PO PRN (21:50)
[2018-04-13] MEDS: GABAPENTIN 100 MG CAP PO SCH (22:26)
[2018-04-14] MEDS: IPRATROPIUM BROM 0.5MG/2.5ML NEB SCH ×7 (01:35→19:36)
[2018-04-14] MEDS: ALBUTEROL 2.5 MG/3 ML NEB SOL NEB SCH ×5 (02:00→19:36)
[2018-04-14] MEDS: guaiFENesin 100 MG/5 ML UCUP PO PRN ×4 (04:41→23:30)
[2018-04-14] MEDS: PANTOPRAZOLE 40MG TABLET PO SCH (06:21)
[2018-04-14] MEDS: FAMOTIDINE PO SCH ×3 (08:00→17:00)
[2018-04-14] MEDS: MAG HYDROX PO SCH ×3 (08:00→17:00)
[2018-04-14] MEDS: CA CARB PO SCH ×3 (08:00→17:00)
[2018-04-14] MEDS: SEVELAMER CARBONATE 800 MG TABLET PO SCH ×3 (08:52→17:44)
[2018-04-14] MEDS: ASPIRIN 81 MG CHEWABLE TABLET PO SCH (08:53)
[2018-04-14] MEDS: AMIODARONE HCL 200 MG TAB PO SCH (08:53)
[2018-04-14] MEDS: VITAMIN D 1000 UNIT TAB PO SCH (08:53)
[2018-04-14] MEDS: FERROUS SULFATE 325 MG TAB PO SCH (08:53)
[2018-04-14] MEDS: GABAPENTIN 100 MG CAP PO SCH ×3 (08:53→20:50)
[2018-04-14] MEDS: ALLOPURINOL 100 MG TAB PO SCH (08:54)
[2018-04-14] MEDS: HEPARIN 5000 UNIT/ML 1 ML VIAL SQ SCH ×2 (08:54→20:50)
[2018-04-14] MEDS: CLOPIDOGREL 75 MG TABLET PO SCH (09:00)
[2018-04-14] MEDS ORDERED: ALBUTEROL 2.5 MG/3 ML NEB SOL NEB SCH (09:00)
[2018-04-14] MEDS: CEFTRIAXONE/SWI 1gm 1 GM/10 ML SYR IV SCH ×2 (09:00→20:50)
[2018-04-14] MEDS: HOME MED 1 EA UNK (Fluticasone Propionate [Flonase Allergy Relief] 1 SPRAY) NS SCH ×2 (09:00→20:57)
[2018-04-14] MEDS: VITAMIN A 8000 UNIT PO SCH (09:00)
[2018-04-14] MEDS: ZINC SULFATE 220 MG CAP PO SCH (09:00)
[2018-04-14] MEDS: METHYLPREDNISOLONE 125 MG INJ IV SCH ×3 (12:28→23:30)
[2018-04-14] MEDS ORDERED: MIDODRINE HCL 5 MG TABLET PO PRN (13:35)
[2018-04-14] MEDS ORDERED: NA CHLORIDE 0.9% 1,000 ML IV PRN (14:22)
[2018-04-14] MEDS: ALBUMIN HUMAN 25% 50 ML IV SCH ×2 (14:44→15:37)
--- NOTE | 2018-04-14 20:01 | P.CNS ---
Date of Consult: 04/14/18 Reason for Consult: ESRD to resume HD Chief Complaint: Upper respiratory infection/pneumonia History of Present Illness: A 78-year-old man with PMHx of ESRD on HD MWF from [facility], DM, HTN, Afib, CHF S/P rt AICD and CODP pt also on trachesosotmy but doesnt require Oxygen Pt presented perssitent cough of 4-7 days duration cough is productive with yellowish secretions no fever, chills, diarrhe or vomiting Bp is boderline at base Allergies iodine [Iodine] Allergy (Intermediate, Verified 04/13/18 02:39) Itching SHELLFISH Allergy (Uncoded 06/02/15 15:35) Unknown Home Medications: Albuterol Neb [Proventil 0.083% Neb Soln] 1 amp NEB DAILY 04/13/18 Allopurinol [Zyloprim*] 2 tab PO DAILY 04/13/18 Amiodarone HCl [Cordarone*] 0.5 tab PO DAILY 04/13/18 Aspirin Chewable [Aspirin Chewable*] 2 tab PO DAILY 04/13/18 Cholecalciferol (Vitamin D3) [Vitamin D3] 1 cap PO DAILY 04/13/18 Clopidogrel Bisulfate [Plavix*] 75 mg PO DAILY 04/13/18 Famotidine/Ca Carb/Mag Hydrox [Tums Dual Action Tablet Chew] 2 tab PO TIDWM 05/01 Ferrous Sulfate [Ferrous Sulfate*] 1 tab PO DAILY 04/13/18 Fluticasone Propionate [Flonase Allergy Relief] 1 spray NS BID 04/13/18 Gabapentin [Neurontin*] 100 mg PO TID 04/13/18 Ipratropium Neb [Atrovent*] 1 amp NEB Q6HR 04/13/18 Nitroglycerin [Nitrostat] 0.4 mg SL PRN 04/13/18 Omeprazole 1 tab PO BID 04/13/18 Sevelamer Carbonate [Renvela*] 2 tab PO TID 04/13/18 Vitamin A 8,000 unit PO DAILY 04/13/18 Zinc 1 tab PO DAILY 04/13/18 - Past Medical/Surgical History Diabetic: Yes -: NIDDM - not on any meds -: HTN -: ESRD -: gout -: GERD -: arthritis -: Diverticulitis -: dialysis: MWF -: anemia -: sleep apnea -: gout -: oa -: trach 06/2002 -: HD graft - L upper arm -: pacemaker - Family History Brother Medical History: Hypertension Mother Medical History: Heart disease, Hypertension Sister Medical History: Cancer Notes: breast cancer - Social History Smoking Status: Never smoker Alcohol use: No CD- Drugs: No Caffeine use: Yes Place of Residence: Home Physical Examination Temp Pulse Resp BP Pulse Ox 97.3 F 84 17 103/55 L 100 04/14/18 16:00 04/14/18 16:00 04/14/18 16:00 04/14/18 16:00 04/14/18 16:00 General: Oriented x3 HEENT: Atraumatic Neck: Supple, Without JVD or thyroid abnormality Respiratory: Crackles/rales, Other Cardiovascular: No edema, Regular rate/rhythm, Normal S1 S2 Gastrointestinal: Normal bowel sounds - Problems (1) Acute exacerbation of chronic obstructive airways disease Onset Date: 07/02/15 Current Visit: No Status: Acute (2) Anemia Onset Date: 05/29/14 Current Visit: No Status: Chronic (3) Cardiomegaly Onset Date: 06/04/15 Current Visit: No Status: Chronic (4) Diabetes mellitus Onset Date: 11/20/16 Current Visit: No Status: Chronic (5) ESRD (end stage renal disease) Onset Date: 08/14/14 Current Visit: No Status: Chronic Conclusions/Impression: A 78-year-old man with PMHx of ESRD on HD MWF from [facility], DM, HTN, Afib, CHF S/P rt AICD and CODP pt also on trachesosotmy but doesnt require Oxygen Pt presented perssitent cough of 4-7 days duration cough is productive with yellowish secretions no fever, chills, diarrhe or vomiting Bp is boderline at base ESRD on HD MWF will cont MWF renal diet renal dose meds midodrine on HD days Anemia will hold JAIRO as HB >11 MBD will check Phos Cont renvela Acute bronchitis/COPD exacerbation Abx and steroids
--- NOTE | 2018-04-15 00:46 | PN ---
Date of Progress Note: 04/14/2018 Subjective: Patient was seen this morning for followup. He was sitting in the bed. Denied any new complaints. I have reviewed current hospital record and the patient came into emergency room on 04/2018 with cough, chest congestion, shortness of breath, wheezing, and after he was evaluated in ER he was admitted to the hospital. He was started on nebulizer treatment. This morning when I saw him , he was not feeling any better and he was coughing up some colored mucus. Denies any vomiting or di arrhea. Objective: Vital signs: Reviewed. HEENT: Unremarkable. Lungs: Bilateral scattered wheezing noted. Not in any respiratory distress at rest. Heart: Sounds normal. Abdomen: Soft. Bowel sounds normal. No guarding, rigidity, tenderness, distention. Extremity: No leg edema. Laboratory Data: Chest x-ray done in the emergency room does not show any acute infiltrate. White c ount yesterday 9.3, hemoglobin 11, platelets 154. Yesterday; sodium 136, potassium 4.5, chloride 99, bicarb 28, BUN 27, creatinine 7.53, glucose 157. Impression: 1.Acute exacerbation of chronic obstructive pulmonary disease. 2.Acute bronchitis. 3.End-stage renal disease, on hemodialysis. 4.Hypertension. 5.Anemia due to chronic kidney disease. Plan: We will go ahead and continue current medications including his home medications. The patient is on heparin for DVT prophylaxis; we will continue that. I have added IV Solu-Medrol and IV antibi otics per order which will be ceftriaxone. We will continue nebulizer treatment. Consult nephrologi st for dialysis. The patient's dialysis is due to be done today. We will see him tomorrow for zeferino dangelo. The patient is appropriate for inpatient and is expected to spend 2 midnights in hospital. I will see mehul ahn tomorrow for followup. ODESSA/MODL Voice ID: [id number] Report ID: [id number]
[2018-04-15] MEDS: ALBUTEROL 2.5 MG/3 ML NEB SOL NEB SCH ×4 (02:05→20:00)
[2018-04-15] MEDS: IPRATROPIUM BROM 0.5MG/2.5ML NEB SCH ×4 (02:05→20:00)
[2018-04-15] MEDS: ACETAMINOPHEN 500 MG TAB PO PRN ×3 (03:55→22:11)
[2018-04-15] MEDS: PANTOPRAZOLE 40MG TABLET PO SCH (06:00)
[2018-04-15] MEDS: METHYLPREDNISOLONE 125 MG INJ IV SCH ×4 (06:00→23:53)
[2018-04-15] MEDS: guaiFENesin 100 MG/5 ML UCUP PO PRN ×3 (06:20→23:50)
[2018-04-15] MEDS: FAMOTIDINE PO SCH ×3 (08:00→17:00)
[2018-04-15] MEDS: MAG HYDROX PO SCH ×3 (08:00→17:00)
[2018-04-15] MEDS: CA CARB PO SCH ×3 (08:00→17:00)
[2018-04-15] MEDS: VITAMIN A 8000 UNIT PO SCH (09:00)
[2018-04-15] MEDS: HOME MED 1 EA UNK (Fluticasone Propionate [Flonase Allergy Relief] 1 SPRAY) NS SCH ×2 (09:00→21:00)
[2018-04-15] MEDS: GABAPENTIN 100 MG CAP PO SCH ×3 (09:05→22:12)
[2018-04-15] MEDS: AMIODARONE HCL 200 MG TAB PO SCH (09:05)
[2018-04-15] MEDS: FERROUS SULFATE 325 MG TAB PO SCH (09:05)
[2018-04-15] MEDS: VITAMIN D 1000 UNIT TAB PO SCH (09:06)
[2018-04-15] MEDS: ZINC SULFATE 220 MG CAP PO SCH (09:06)
[2018-04-15] MEDS: SEVELAMER CARBONATE 800 MG TABLET PO SCH ×3 (09:06→17:56)
[2018-04-15] MEDS: ALLOPURINOL 100 MG TAB PO SCH (09:06)
[2018-04-15] MEDS: HEPARIN 5000 UNIT/ML 1 ML VIAL SQ SCH ×2 (09:07→22:12)
[2018-04-15] MEDS: ASPIRIN 81 MG CHEWABLE TABLET PO SCH (09:07)
[2018-04-15] MEDS: CLOPIDOGREL 75 MG TABLET PO SCH (09:07)
[2018-04-15] MEDS: CEFTRIAXONE/SWI 1gm 1 GM/10 ML SYR IV SCH ×2 (09:07→22:14)
--- NOTE | 2018-04-15 11:42 | P.PN ---
Subjective Date of Service: 04/15/18 Chief Complaint: Upper respiratory infection/pneumonia Subjective: Improving pt with esrd on HD MWF , admitted for productive cough Acute bronchitis/COPD exacerbation hand cramps today will do HD tomorrow with less UF Physical Examination - Vital Signs Temperature: 97.4 F Blood Pressure: 112/59 Pulse: 78 Respirations: 15 Pulse Ox (%): 100 - Physical Exam General: Oriented x3, Mild distress HEENT: Atraumatic Neck: Without JVD or thyroid abnormality Respiratory: Clear to auscultation bilaterally Cardiovascular: No edema, Regular rate/rhythm, Normal S1 S2 Gastrointestinal: Soft and benign - Studies Microbiology Data (last 24 hrs): 04/13/18 10:31 Sputum Gram Stain - Final 04/13/18 10:31 Sputum Culture & Sensitivity - Final Assessment And Plan - Current Problems (Diagnosis) (1) Acute exacerbation of chronic obstructive airways disease Onset Date: 07/02/15 Current Visit: No Status: Acute (2) Anemia Onset Date: 05/29/14 Current Visit: No Status: Chronic (3) Cardiomegaly Onset Date: 06/04/15 Current Visit: No Status: Chronic (4) Diabetes mellitus Onset Date: 11/20/16 Current Visit: No Status: Chronic (5) ESRD (end stage renal disease) Onset Date: 08/14/14 Current Visit: No Status: Chronic - Plan A 78-year-old man with PMHx of ESRD on HD MWF from [facility], DM, HTN, Afib, CHF S/P rt AICD and CODP pt also on trachesosotmy but doesnt require Oxygen Pt presented perssitent cough of 4-7 days duration cough is productive with yellowish secretions no fever, chills, diarrhe or vomiting Bp is boderline at base ESRD on HD MWF will cont MWF renal diet renal dose meds midodrine on HD days Anemia will hold JAIRO as HB >11 MBD Phs ok Cont renvela Acute bronchitis/COPD exacerbation Abx and steroids
[2018-04-16] MEDS: NITROGLYCERIN 0.4 MG/TAB SL SCH ×3 (02:07→11:22)
--- NOTE | 2018-04-16 02:09 | PN ---
Date of Progress Note: 04/15/2018 Subjective: The patient was seen this morning for followup. He was sitting at bedside. Overall, fe els better compared to yesterday. Had dialysis yesterday. Objective: Vital Signs: Reviewed. HEENT: Examination unremarkable. Lungs: Bilateral good equal air entry. Some scattered wheezing noted, much better than yesterday. Not in any respiratory distress. Heart: Sounds normal. Abdomen: Soft. Bowel sounds normal. No guarding, rigidity, tenderness, or distention. Extremities: No leg edema. Impression: 1.Acute exacerbation of chronic obstructive pulmonary disease. 2.Acute bronchitis. 3.End-stage renal disease, on hemodialysis. 4.Hypertension. 5.Anemia due to chronic kidney disease. Plan: We will go ahead and continue current IV steroid, IV antibiotics, and other current medical ma nagement. Continue to follow with food processor. The patient probably will be stable for discharge b y tomorrow and I will see him tomorrow for followup. Plan of treatment discussed with him. ODESSA/MODL Voice ID: [id number] Report ID: [id number]
[2018-04-16] MEDS: ALBUTEROL 2.5 MG/3 ML NEB SOL NEB SCH ×4 (02:21→20:00)
[2018-04-16] MEDS: IPRATROPIUM BROM 0.5MG/2.5ML NEB SCH ×4 (02:21→20:00)
[2018-04-16] MEDS: PANTOPRAZOLE 40MG TABLET PO SCH (05:24)
[2018-04-16] MEDS: METHYLPREDNISOLONE 125 MG INJ IV SCH ×3 (05:24→17:23)
--- NOTE | 2018-04-16 07:46 | EKG ---
Test Date: 2018-04-16 Test Time: 02:52:37 Land Le[employer] Information Clerk: EVA MEASUREMENT RESULTS: Intervals: Rate: 79 ND: 168 QRSD: 164 QT: 478 QTc: 548 [place]: P: 33 ND: 168 QRS: -64 T: 47 INTERPRETIVE STATEMENTS: Electronic ventricular pacemaker Compared to ECG 04/12/2018 20:54:29 Atrial-sensed ventricular-paced complex(es) or rhythm no longer present Electronically Signed On 04-16-18 07:45:41 PIG HANDLER by Bhupendra Samson
[2018-04-16] MEDS: SEVELAMER CARBONATE 800 MG TABLET PO SCH ×3 (08:00→17:23)
[2018-04-16] MEDS: MAG HYDROX PO SCH ×3 (08:00→16:48)
[2018-04-16] MEDS: FAMOTIDINE PO SCH ×3 (08:00→16:48)
[2018-04-16] MEDS: CA CARB PO SCH ×3 (08:00→16:48)
[2018-04-16] MEDS: VITAMIN A 8000 UNIT PO SCH (09:00)
[2018-04-16] MEDS: HEPARIN 5000 UNIT/ML 1 ML VIAL SQ SCH ×2 (09:00→20:33)
[2018-04-16] MEDS: HOME MED 1 EA UNK (Fluticasone Propionate [Flonase Allergy Relief] 1 SPRAY) NS SCH ×2 (09:00→21:00)
[2018-04-16] MEDS: ALBUMIN HUMAN 25% 50 ML IV SCH (10:06)
[2018-04-16] MEDS: VITAMIN D 1000 UNIT TAB PO SCH (13:07)
[2018-04-16] MEDS: ASPIRIN 81 MG CHEWABLE TABLET PO SCH (13:07)
[2018-04-16] MEDS: FERROUS SULFATE 325 MG TAB PO SCH (13:08)
[2018-04-16] MEDS: ALLOPURINOL 100 MG TAB PO SCH (13:08)
[2018-04-16] MEDS: CLOPIDOGREL 75 MG TABLET PO SCH (13:08)
[2018-04-16] MEDS: AMIODARONE HCL 200 MG TAB PO SCH (13:09)
[2018-04-16] MEDS: GABAPENTIN 100 MG CAP PO SCH ×3 (13:09→20:33)
[2018-04-16] MEDS: ZINC SULFATE 220 MG CAP PO SCH (13:09)
[2018-04-16] MEDS: CEFTRIAXONE/SWI 1gm 1 GM/10 ML SYR IV SCH ×2 (13:09→20:34)
--- NOTE | 2018-04-16 14:04 | P.PN ---
Subjective Date of Service: 04/16/18 Chief Complaint: Upper respiratory infection/pneumonia Subjective: Improving pt with esrd on HD MWF , admitted for productive cough Acute bronchitis/COPD exacerbation hand cramps today will do HD today with no complications cleared for discharge from nephrology point of view Physical Examination - Vital Signs Temperature: 97.6 F Blood Pressure: 115/78 Pulse: 80 Respirations: 18 Pulse Ox (%): 97 - Physical Exam General: In no apparent distress, Oriented x3 Neck: Supple, Without JVD or thyroid abnormality Respiratory: Clear to auscultation bilaterally Cardiovascular: No edema, Regular rate/rhythm, Normal S1 S2, No rubs, No murmurs Gastrointestinal: Normal bowel sounds, Soft and benign - Studies Microbiology Data (last 24 hrs): 04/13/18 10:31 Sputum Gram Stain - Final 04/13/18 10:31 Sputum Culture & Sensitivity - Final Assessment And Plan - Current Problems (Diagnosis) (1) Acute exacerbation of chronic obstructive airways disease Onset Date: 07/02/15 Current Visit: No Status: Acute (2) Anemia Onset Date: 05/29/14 Current Visit: No Status: Chronic (3) Cardiomegaly Onset Date: 06/04/15 Current Visit: No Status: Chronic (4) Diabetes mellitus Onset Date: 11/20/16 Current Visit: No Status: Chronic (5) ESRD (end stage renal disease) Onset Date: 08/14/14 Current Visit: No Status: Chronic - Plan A 78-year-old man with PMHx of ESRD on HD MWF from [facility] [place], DM, HTN, Afib, CHF S/P rt AICD and CODP pt also on trachesosotmy but doesnt require Oxygen Pt presented perssitent cough of 4-7 days duration cough is productive with yellowish secretions no fever, chills, diarrhe or vomiting Bp is boderline at base ESRD on HD MWF will cont MWF renal diet renal dose meds midodrine on HD days Anemia will hold JAIRO as HB >11 MBD Phs ok Cont renvela Acute bronchitis/COPD exacerbation Abx and steroids
[2018-04-16] MEDS: guaiFENesin 100 MG/5 ML UCUP PO PRN ×2 (14:40→20:34)
--- NOTE | 2018-04-16 15:38 | PN ---
Date of Progress Note: 04/16/2018 Subjective: The patient was seen this morning for followup. No new complaints or problems reported by him. When I saw him this morning, he was getting his dialysis. During nighttime, the patient had chest pain and it was in the center of the chest, got relieved with use of nitroglycerin tablet x1 d ose. The patient says that at home he has some chest pain from time to time and he uses nitroglyceri n spray on a p.r.n. basis. This pain that happened last night was not as bad as what he had at home in the past. Few months ago when he was in the hospital, we did talk about followup with the cardiol ogist and he sees mixing machine feeder Dr. Carrasquillo in [place] on a regular basis, and he informed me that he has appointment actually to see him sometime within next 1-2 weeks. When I saw him this morning, he was asymptomatic. Objective: HEENT: Unremarkable. Lungs: Clear to auscultation. Heart: Sounds normal. Abdomen: Soft. Bowel sounds normal. No guarding, rigidity, tenderness, or distention. Extremity: No leg edema. Impression: 1.Acute exacerbation of chronic obstructive pulmonary disease. 2.Acute bronchitis. 3.End-stage renal disease, on hemodialysis. 4.Anemia due to chronic kidney disease. 5.Chest pain. 6.Hypertension. Plan: We will continue current medications including steroid, oxygen nebulizer treatment, antibiotic s. Continue p.r.n. use of nitroglycerin, and the patient was encouraged to keep his appointment to see his mixing machine feeder Dr. Carrasquillo for this month. Possible discharge to go home tomorrow depending on his condition. ODESSA/MODL Voice ID: [id number] Report ID: [id number]
[2018-04-17] MEDS: METHYLPREDNISOLONE 125 MG INJ IV SCH ×4 (00:25→17:25)
[2018-04-17] MEDS: ALBUTEROL 2.5 MG/3 ML NEB SOL NEB SCH ×4 (02:25→20:00)
[2018-04-17] MEDS: IPRATROPIUM BROM 0.5MG/2.5ML NEB SCH ×4 (02:25→20:00)
[2018-04-17] MEDS: guaiFENesin 100 MG/5 ML UCUP PO PRN ×3 (04:07→21:00)
[2018-04-17] MEDS: PANTOPRAZOLE 40MG TABLET PO SCH (06:34)
[2018-04-17 06:53] VITALS: BMI 35.4
[2018-04-17] MEDS: MAG HYDROX PO SCH ×3 (08:00→17:00)
[2018-04-17] MEDS: FAMOTIDINE PO SCH ×3 (08:00→17:00)
[2018-04-17] MEDS: CA CARB PO SCH ×3 (08:00→17:00)
[2018-04-17] MEDS: VITAMIN A 8000 UNIT PO SCH (09:00)
[2018-04-17] MEDS: HOME MED 1 EA UNK (Fluticasone Propionate [Flonase Allergy Relief] 1 SPRAY) NS SCH ×2 (09:00→21:00)
[2018-04-17] MEDS: SEVELAMER CARBONATE 800 MG TABLET PO SCH ×3 (09:27→17:24)
[2018-04-17] MEDS: AMIODARONE HCL 200 MG TAB PO SCH (09:27)
[2018-04-17] MEDS: VITAMIN D 1000 UNIT TAB PO SCH (09:28)
[2018-04-17] MEDS: ZINC SULFATE 220 MG CAP PO SCH (09:28)
[2018-04-17] MEDS: ALLOPURINOL 100 MG TAB PO SCH (09:28)
[2018-04-17] MEDS: CLOPIDOGREL 75 MG TABLET PO SCH (09:28)
[2018-04-17] MEDS: GABAPENTIN 100 MG CAP PO SCH ×3 (09:28→20:59)
[2018-04-17] MEDS: FERROUS SULFATE 325 MG TAB PO SCH (09:28)
[2018-04-17] MEDS: ASPIRIN 81 MG CHEWABLE TABLET PO SCH (09:29)
[2018-04-17] MEDS: HEPARIN 5000 UNIT/ML 1 ML VIAL SQ SCH ×2 (09:30→21:00)
[2018-04-17] MEDS: CEFTRIAXONE/SWI 1gm 1 GM/10 ML SYR IV SCH ×2 (09:31→21:08)
--- NOTE | 2018-04-17 14:03 | P.PN ---
Subjective Date of Service: 04/17/18 Chief Complaint: Upper respiratory infection/pneumonia Subjective: Improving pt with esrd on HD MWF , admitted for productive cough Acute bronchitis/COPD exacerbation Bp was borderline earlier morning, now normal Cont HD mwf cleared for discharge from nephrology point of view Physical Examination - Vital Signs Temperature: 97.2 F Blood Pressure: 113/56 Pulse: 72 Respirations: 18 Pulse Ox (%): 97 - Physical Exam General: In no apparent distress, Oriented x3 HEENT: Atraumatic Neck: Supple, Without JVD or thyroid abnormality Respiratory: Clear to auscultation bilaterally Cardiovascular: Normal pulses, Regular rate/rhythm, No rubs, No murmurs Gastrointestinal: Soft and benign Assessment And Plan - Current Problems (Diagnosis) (1) Acute exacerbation of chronic obstructive airways disease Onset Date: 07/02/15 Current Visit: No Status: Acute (2) Anemia Onset Date: 05/29/14 Current Visit: No Status: Chronic (3) Cardiomegaly Onset Date: 06/04/15 Current Visit: No Status: Chronic (4) Diabetes mellitus Onset Date: 11/20/16 Current Visit: No Status: Chronic (5) ESRD (end stage renal disease) Onset Date: 08/14/14 Current Visit: No Status: Chronic - Plan A 78-year-old man with PMHx of ESRD on HD MWF from [facility], DM, HTN, Afib, CHF S/P rt AICD and CODP pt also on trachesosotmy but doesnt require Oxygen Pt presented persistent cough of 4-7 days duration cough is productive with yellowish secretions no fever, chills, diarrhea or vomiting Bp is borderline at base ESRD on HD MWF will cont MWF renal diet renal dose meds midodrine on HD days Anemia will hold JAIRO as HB >11 MBD Phs ok Cont renvela Acute bronchitis/COPD exacerbation Abx and steroids
--- NOTE | 2018-04-17 15:10 | PN ---
Date of Progress Note: 04/17/2018 Subjective: The patient was seen this morning for followup. He was lying in bed, sleeping, arousabl e, not in any distress. No new complaints or problems reported. No more chest pain reported, but he has some wheezing. Objective: Vital Signs: Reviewed. HEENT: Unremarkable. Lungs: Bilateral good equal air entry. Presence of scattered wheezing in all the lung [place]. Not using accessory muscles of respiration. Heart: Sounds normal. Abdomen: Soft. Bowel sounds normal. No guarding, rigidity, tenderness, or distention. Extremities: No leg edema. Impression: 1.Acute exacerbation of chronic obstructive pulmonary disease. 2.Acute bronchitis. 3.End-stage renal disease, on hemodialysis. 4.Hypertension. 5.Anemia due to chronic kidney disease. Plan: We will go ahead and continue current IV steroid and current IV antibiotics. We will get a est x-ray done today and add inhaler Dulera and I will see him tomorrow for followup. The patient's lung sounds worse today compared to yesterday, so it will not be safe for him to go home today and th is was discussed with him. We will see him again tomorrow for followup visit. ODESSA/MODL Voice ID: [id number] Report ID: [id number]
--- NOTE | 2018-04-17 15:21 | RAD REPORT ---
EXAM DESCRIPTION: Zhanna Lino And Marilee (2 Views)04/17/2018 3:06 pm CLINICAL HISTORY: Shortness of breath COMPARISON: April 12, 2018 FINDINGS: The lungs appear clear of acute infiltrate. The heart is mildly to moderately enlarged. P acemaker leads are in place. Tracheostomy tube noted IMPRESSION: No acute abnormalities displayed
[2018-04-17] MEDS: DULERA 200/5 (MOMETASONE/FORMOTEROL) INHALER IH SCH ×2 (15:29→20:58)
[2018-04-17 21:25] LABS: HBsAG Nonreactive (Nonreactive)
[2018-04-18] MEDS: IPRATROPIUM BROM 0.5MG/2.5ML NEB SCH ×3 (02:00→13:10)
[2018-04-18] MEDS: ALBUTEROL 2.5 MG/3 ML NEB SOL NEB SCH ×3 (02:00→13:10)
[2018-04-18] MEDS: METHYLPREDNISOLONE 125 MG INJ IV SCH ×3 (05:58→13:55)
[2018-04-18] MEDS: PANTOPRAZOLE 40MG TABLET PO SCH (05:59)
[2018-04-18] MEDS: CA CARB PO SCH ×2 (08:00→12:00)
[2018-04-18] MEDS: MAG HYDROX PO SCH ×2 (08:00→12:00)
[2018-04-18] MEDS: FAMOTIDINE PO SCH ×2 (08:00→12:00)
[2018-04-18] MEDS: HOME MED 1 EA UNK (Fluticasone Propionate [Flonase Allergy Relief] 1 SPRAY) NS SCH (08:07)
[2018-04-18] MEDS: VITAMIN A 8000 UNIT PO SCH (08:08)
[2018-04-18 10:15] VITALS: BP 139/78; TEMP 97.5
[2018-04-18] MEDS: SEVELAMER CARBONATE 800 MG TABLET PO SCH ×2 (10:22→13:55)
[2018-04-18] MEDS: guaiFENesin 100 MG/5 ML UCUP PO PRN (10:22)
[2018-04-18] MEDS: DULERA 200/5 (MOMETASONE/FORMOTEROL) INHALER IH SCH (10:22)
[2018-04-18] MEDS: ALLOPURINOL 100 MG TAB PO SCH (10:23)
[2018-04-18] MEDS: GABAPENTIN 100 MG CAP PO SCH ×2 (10:23→13:55)
[2018-04-18] MEDS: FERROUS SULFATE 325 MG TAB PO SCH (10:23)
[2018-04-18] MEDS: ASPIRIN 81 MG CHEWABLE TABLET PO SCH (10:23)
[2018-04-18] MEDS: ZINC SULFATE 220 MG CAP PO SCH (10:24)
[2018-04-18] MEDS: VITAMIN D 1000 UNIT TAB PO SCH (10:24)
[2018-04-18] MEDS: AMIODARONE HCL 200 MG TAB PO SCH (10:24)
[2018-04-18] MEDS: HEPARIN 5000 UNIT/ML 1 ML VIAL SQ SCH (10:24)
[2018-04-18] MEDS: CLOPIDOGREL 75 MG TABLET PO SCH (10:24)
[2018-04-18] MEDS: CEFTRIAXONE/SWI 1gm 1 GM/10 ML SYR IV SCH (10:24)
--- NOTE | 2018-04-18 13:01 | P.PN ---
Subjective Date of Service: 04/18/18 Chief Complaint: Upper respiratory infection/pneumonia Subjective: Improving pt with esrd on HD MWF , admitted for productive cough Acute bronchitis/COPD exacerbation No new complaints, improving cleared for discharge from nephrology point of view Physical Examination - Vital Signs Temperature: 97.5 F Blood Pressure: 139/78 Pulse: 78 Respirations: 19 Pulse Ox (%): 97 - Physical Exam General: In no apparent distress, Oriented x3, Obese HEENT: Atraumatic Neck: Supple, Without JVD or thyroid abnormality Respiratory: Clear to auscultation bilaterally, Normal air movement Cardiovascular: No edema, Regular rate/rhythm, Normal S1 S2, No rubs, No murmurs Gastrointestinal: Normal bowel sounds - Studies Microbiology Data (last 24 hrs): 04/13/18 05:00 Blood - Blood Aerobic Blood Culture - Final No growth in 5 days. 04/13/18 05:00 Blood - Blood Anaerobic Blood Culture - Final 04/12/18 21:20 Blood - Blood Aerobic Blood Culture - Final No growth in 5 days. 04/12/18 21:20 Blood - Blood Anaerobic Blood Culture - Final Assessment And Plan - Current Problems (Diagnosis) (1) Acute exacerbation of chronic obstructive airways disease Onset Date: 07/02/15 Current Visit: No Status: Acute (2) Anemia Onset Date: 05/29/14 Current Visit: No Status: Chronic (3) Cardiomegaly Onset Date: 06/04/15 Current Visit: No Status: Chronic (4) Diabetes mellitus Onset Date: 11/20/16 Current Visit: No Status: Chronic (5) ESRD (end stage renal disease) Onset Date: 08/14/14 Current Visit: No Status: Chronic - Plan A 78-year-old man with PMHx of ESRD on HD MWF from [facility], DM, HTN, Afib, CHF S/P rt AICD and CODP pt also on trachesosotmy but doesnt require Oxygen Pt presented persistent cough of 4-7 days duration cough is productive with yellowish secretions no fever, chills, diarrhea or vomiting Bp is borderline at base ESRD on HD MWF will cont MWF renal diet renal dose meds midodrine on HD days Anemia will hold JAIRO as HB >11 MBD Phs ok Cont renvela Acute bronchitis/COPD exacerbation Abx and steroids
[2018-04-18 13:41] VITALS: O2SAT 97
--- NOTE | 2018-04-19 03:50 | DS ---
Date of Discharge: 04/18/2018 Disposition: Discharged to go home. Physical Examination: HEENT: Unremarkable. Lungs: Clear to auscultation. Heart: Sounds normal. Abdomen: Soft. Bowel sounds normal. No guarding, rigidity, tenderness, distention. Extremities: No leg edema. Discharge Medications And Instructions: 1.Continue prior home medications. 2.Take Dulera inhaler 2 puffs by mouth 2 times a day and to rinse mouth with water after each use. 3.Take cefuroxime 250 mg p.o. daily for 5 days. 4.Prednisone, the patient to take 10 mg; take 2 tablets by mouth daily for 4 days, then 1 tablet by mouth daily for 4 days, then half tablet by mouth daily for 4 days then stop. 5.Follow up with casing sewer, Dr. Carrasquillo as per your scheduled appointment this month. 6.Follow up at my office in 2 weeks. Laboratory Data: Upon admission, white count was 10.4, hemoglobin 11.5, platelets 157. Sodium 134, potassium 4.7, chloride 99, bicarb 25, BUN 22, creatinine 6.82, glucose 111. Liver function tests un remarkable. Procalcitonin less than 0.05 when he came in. Hospital Course: A 78-year-old pleasant male patient, came into emergency room with complaints of co ugh, congestion, shortness of breath. Please see dictated H and P for more information. After the p atient came to emergency room, was admitted to the hospital. He was admitted and treated for acute e xacerbation of COPD and acute bronchitis problem. IV ceftriaxone was given, IV steroid was given. T he patient's auto servicer was consulted for dialysis support. He had 1 episode of chest pain while i n the hospital, relieved with nitroglycerin sublingual tablet. The patient has chest pain from time to time at home, uses nitroglycerin sublingual spray at home. He actually has appointment to see his casing sewer this month, which is Dr. Carrasquillo and he was encouraged to keep that appointment. The lui ent's overall condition improved. Yesterday we added Dulera inhaler and overall he feels much better today. He is back to his normal self. No cough, congestion, wheezing. No shortness of breath. Th e patient was discharged to go home today in stable condition with above-mentioned medications and in structions. Final Diagnoses: 1.Acute exacerbation of chronic obstructive pulmonary disease. 2.Acute bronchitis. 3.End-stage renal disease, on hemodialysis. 4.Anemia due to chronic kidney disease. 5.Coronary artery disease. 6.Congestive heart failure, chronic, systolic. 7.Gastroesophageal reflux disease. 8.Prostate cancer. 9.Osteoarthritis, multiple sites. 10.Sleep apnea. ODESSA/MODL Voice ID: [id number] Report ID: [id number]
== END 2018-04-18 14:25 | disposition home or self-care (01) | DRG 190 ==
LOC: ER 20:39 → INTOOBSV 04-13 00:16 → OBSVTOIN 04-13 00:16 → ERHOLD 04-13 00:16 → 2ND 04-13 01:40 → OBSVTOIN 04-14 10:35
PROVIDERS: ADMIT Hospitalist; ATTEND Internal Medicine
PROC: 5A1D70Z Performance of Urinary Filtration, Intermittent, Less than 6 Hours Per Day (ICD-10-PCS; principal; 2018-04-14)
PROC: 5A1D70Z Performance of Urinary Filtration, Intermittent, Less than 6 Hours Per Day (ICD-10-PCS; 2018-04-16)
DX: J44.1 Chronic obstructive pulmonary disease with (acute) exacerbation (principal); N18.6 End stage renal disease; I13.2 Hypertensive heart and chronic kidney disease with heart failure and with stage 5 chronic kidney disease, or end stage renal disease; I50.22 Chronic systolic (congestive) heart failure; J20.9 Acute bronchitis, unspecified; J44.0 Chronic obstructive pulmonary disease with (acute) lower respiratory infection; Z99.2 Dependence on renal dialysis; D63.1 Anemia in chronic kidney disease; I25.10 Atherosclerotic heart disease of native coronary artery without angina pectoris; K21.9 Gastro-esophageal reflux disease without esophagitis; M19.90 Unspecified osteoarthritis, unspecified site; G47.30 Sleep apnea, unspecified; Z88.1 Allergy status to other antibiotic agents; Z88.5 Allergy status to narcotic agent; Z91.013 Allergy to seafood; Z95.810 Presence of automatic (implantable) cardiac defibrillator; E11.22 Type 2 diabetes mellitus with diabetic chronic kidney disease; Z93.0 Tracheostomy status; Z87.891 Personal history of nicotine dependence; C61 Malignant neoplasm of prostate; I48.91 Unspecified atrial fibrillation; N25.0 Renal osteodystrophy; I51.7 Cardiomegaly
CPT/HCPCS: 36415; 71045; 71046; 80048; 80053; 80076; 83605; 83735; 83880; 84100; 84145; 84484; 85025; 85610; 86317; 86706; 87040; 87070; 87205; 87340; 90935; 93005; 94640; 99285; J0696; J1644; J2405; J2930; J7606; P9047

== ENCOUNTER 2018-05-28 22:47 | Inpatient (IN) | payer OTHER, MEDICARE ==
[2018-05-28 23:05] LABS: Arterial Blood Carboxyhemoglob 1.5 % (0-1.5); Blood Gas Oxyhemoglobin 96.1 % (94-97); Blood O2 Saturation 98.7 % (92-98.5)
[2018-05-28] MEDS ORDERED: VANCOMYCIN 0 GM/0 ML BAG ONE (23:10)
[2018-05-28] MEDS ORDERED: CEFEPIME 0 GM/0 ML BAG IV ONE (23:10)
[2018-05-28 23:44] LABS: Absolute Lymphocytes (CBC) 1.1 K/uL (0.7-4.9); Absolute Monocytes 0.8 K/uL (0.1-1.3); Absolute Neutrophil 4.2 K/uL (1.8-8.0); Basophils % 1.1 % (0-1.3); Eosinophils % 2.4 % (0-4.4); Hematocrit 29.2 % (39.6-49.0); Lymphocytes % 17.4 % (15.3-44.8); MPV 10.1 fL (7.6-11.3); Monocytes % 12.3 % (3.3-12.3); RBC Red Blood Cell Count 2.97 M/uL (4.33-5.43)
[2018-05-28 23:51] LABS: Protime INR 1.14
[2018-05-29 00:14] LABS: Albumin 3.5 g/dL (3.4-5.0); Bilirubin Direct 0.1 mg/dL (0-0.2); Bilirubin Total 0.4 mg/dL (0.2-1.0); CKMB Creatine Kinase MB 1.3 ng/mL (0.3-3.6); Magnesium 2.2 mg/dL (1.8-2.4); Potassium 4.3 mmol/L (3.5-5.1); Protein, Total 7.7 g/dL (6.4-8.2); Troponin (Emerg Dept Use Only) 0.04 ng/mL (0.0-0.045)
--- NOTE | 2018-05-29 00:35 | EDPHYS ---
Physician Documentation [facility] Name: Sergio Perez Age: 78 yrs Sex: Male : 1940 Arrival Date: 05/28/2018 Time: 22:49 Bed 17 Private MD: ED Physician Colleen Salvador HPI: 05/28 22:56 This 78 yrs old Black Male presents to ER via EMS with complaints of cough and sob. ma2 22:56 Onset: The symptoms/episode began/occurred gradually, 1 day(s) ago. Severity of ma2 symptoms: At their worst the symptoms were moderate, in the emergency department the symptoms are unchanged. Associated signs and symptoms: Pertinent positives: Pertinent negatives: chest pain. It is unknown whether or not the patient has had similar symptoms in the past. Historical: - Allergies: 22:55 SHELLFISH; ak1 22:55 Iodine; ak1 22:55 Cipro; ak1 22:55 Demerol; ak1 - Home Meds: 22:55 albuterol sulfate 2.5 mg /3 mL (0.083 %) Inhl nebu 1 vial daily [Active]; allopurinol ak1 200 mg Oral 2 tabs daily [Active]; amiodarone 200 mg Oral tab 0.5 tab daily [Active]; aspirin 81 mg Oral TbEC 1 tab twice daily [Active]; clopidogrel 75 mg Oral tab 1 tab once daily [Active]; Ferrous Sulfate 65 mg Oral 1x daily [Active]; fluticasone 50 mcg/actuation nasal spsn 1 spray 2 times per day [Active]; gabapentin Oral 1 tab 3 times per day [Active]; indura 800 mg 2 tabs before each meal TID [Active]; ipratropium bromide 0.02 % inhalation soln 2.5 mL 4 times per day [Active]; nitroglycerin 0.4 mg Oral as needed [Active]; omeprazole 20 mg Oral TbEC twice a day [Active]; Tums Oral 2 tabs per meal [Active]; vitamin A 8,000 unit Oral cap 1 cap once daily [Active]; vitamin d1 tablet 2000 IU daily [Active]; zinc sulfate 220 (50) mg Oral cap daily [Active]; - PMHx: 22:55 CHF; COPD; Diabetes - NIDDM; Dialysis; M-W-F; ESRD; GERD; Gout; Pacemaker; with defib; ak1 Hypertension; - Immunization history:: Adult Immunizations unknown. - Social history:: Smoking status: Patient/guardian denies using tobacco, Patient/guardian denies using alcohol, street drugs, The patient lives with family. - Ebola Screening: : No symptoms or risks identified at this time. - Family history:: not pertinent. ROS: 22:56 Constitutional: Negative for fever, chills, and weight loss. ma2 22:56 Respiratory: Positive for shortness of breath, Negative for orthopnea. 22:56 Abdomen/GI: Positive for abdominal pain, Negative for nausea, vomiting, and diarrhea, diarrhea, rectal pain, flatulence. 22:56 Abdomen/GI: Negative for 22:56 All other systems are negative. Exam: 22:56 Constitutional: This is a well developed, well nourished patient who is awake, alert, ma2 and in no acute distress. 22:56 ENT: Nares patent. No nasal discharge, no septal abnormalities noted. Tympanic membranes are normal and external auditory canals are clear. Oropharynx with no redness, swelling, or masses, exudates, or evidence of obstruction, uvula midline. Mucous membranes moist. Chest/axilla: Normal chest wall appearance and motion. Nontender with no deformity. No lesions are appreciated. Cardiovascular: Regular rate and rhythm with a normal S1 and S2. No gallops, murmurs, or rubs. Normal PMI, no JVD. No pulse deficits. Abdomen/GI: Soft, non-tender, with normal bowel sounds. No distension or tympany. No guarding or rebound. No evidence of tenderness throughout. Back: No spinal tenderness. No costovertebral tenderness. Full range of motion. Skin: Warm, dry with normal turgor. Normal color with no rashes, no lesions, and no evidence of cellulitis. MS/ Extremity: Pulses equal, no cyanosis. Neurovascular intact. Full, normal range of motion. Neuro: Awake and alert, GCS 15, oriented to person, place, time, and situation. Cranial nerves II-XII grossly intact. Motor strength 5/5 in all extremities. Sensory grossly intact. Cerebellar exam normal. Normal gait. 22:56 Respiratory: moderate respiratory distress is noted, Respirations: labored breathing, Breath sounds: rales, that are moderate, are heard in the right middle lobe and left lower lobe. Vital Signs: 22:50 BP 110 / 61; Pulse 97; Resp 18; Temp 99.1(O); Pulse Ox 100% on R/A; Weight 138.35 kg ak1 (R); Height 5 ft. 11 in. (180.34 cm) (R); Pain 0/10; 05/29 00:39 BP 99 / 66; Pulse 91; Resp 18; Temp 99.1; Pulse Ox 100% on 4 lpm NC; ak1 01:08 BP 113 / 60; Pulse 90; Resp 20; Pulse Ox 100% on 4 lpm NC; ak1 05/28 22:50 Body Mass Index 42.54 (138.35 kg, 180.34 cm) ak MDM: 05/28 22:54 Patient medically screened. [facility] 22:56 Differential Diagnosis: Bronchitis Upper Respiratory Infection Pharyngitis Pneumonia. [facility] 05/29 00:27 Data reviewed: vital signs, nurses notes. Counseling: I had a detailed discussion with [facility] the patient and/or guardian regarding: the need for further work-up and treatment in the hospital. Response to treatment: the patient's symptoms have markedly improved after treatment. 00:27 ED course: patient has pneumonia on CXR on my read with infiltrate on right lower lung [facility] field, pulse is still in 90, on 2L O2 via nasal cannula which is his usual home O2 requirement.. his is still tachypniec, not wheezy that improved with trach suctioning.. he is higher risk given age and pulse and recent hx of pneumonia 6 weeks ago, he does not have an IV nurse attempted with ultrasound, and he declined when i requested to try as well.. given his pulse improvement and stable condition will give po antibiotics now and order an inpatient picc/medline to be placed tomorrow, i paged dr. jean and left a voice message with patient information, no call back yet . 05/28 22:56 Order name: ABG; Complete Time: 23:36 [facility] 05/28 22:56 Order name: Blood Culture Adult (2) [facility] 05/28 22:56 Order name: BMP; Complete Time: 00:21 [facility] 05/28 22:56 Order name: CBC with Diff; Complete Time: 23:54 [facility] 05/28 22:56 Order name: Ckmb; Complete Time: 00:21 05/28 22:56 Order name: CPK; Complete Time: 00:21 05/28 22:56 Order name: Hepatic Function; Complete Time: 00:21 05/28 22:56 Order name: Lipase; Complete Time: 00:21 05/28 22:56 Order name: Magnesium; Complete Time: 00:21 05/28 22:56 Order name: NT PRO-BNP; Complete Time: 00:21 05/28 22:56 Order name: PT-INR; Complete Time: 00:21 05/28 22:56 Order name: Ptt, Activated; Complete Time: 00:21 05/28 22:56 Order name: Troponin (emerg Dept Use Only); Complete Time: 00:21 05/28 22:56 Order name: XRAY CXR (1 view) [facility] 05/28 22:56 Order name: EKG; Complete Time: 22:57 [facility] 05/29 00:43 Order name: Consistent Carb (ADA) [address] EDMS 05/29 00:43 Order name: Basic Metabolic Panel EDMS 05/29 00:43 Order name: Basic Metabolic Panel EDMS 05/29 00:43 Order name: CBC with Automated Diff EDMS 05/29 00:43 Order name: CBC with Automated Diff EDMS 05/29 00:43 Order name: NT PRO-BNP EDMS 05/29 00:43 Order name: NT PRO-BNP EDMS 05/29 00:43 Order name: Troponin I EDMS 05/29 00:43 Order name: Troponin I EDMS 05/29 00:43 Order name: Troponin I EDMS 05/28 22:56 Order name: Cardiac monitoring; Complete Time: 23:15 05/28 22:56 Order name: EKG - Nurse/Tech; Complete Time: 23:15 [facility] 05/28 22:56 Order name: Labs collected and sent; Complete Time: 00:43 tx2 05/28 22:56 Order name: O2 Per Protocol; Complete Time: 23:15 05/28 22:56 Order name: O2 Sat Monitoring; Complete Time: 23:15 ma Administered Medications: 00:35 Drug: Doxycycline 100 mg Route: PO; ea 01:11 Follow up: Response: No adverse reaction ak1 00:36 Not Given (Physician Discretion): vancoMYCIN 1 grams IVPB once over 2 hrs ea 00:36 Not Given (Physician Discretion): Cefepime 1 grams IVPB at 200 ml/hr once over 30 mins; ea (mix in NS 100 mL) 00:36 Drug: AZITHromycin 500 mg Route: PO; ea 01:11 Follow up: Response: No adverse reaction ak1 Disposition: 05/29/18 00:33 Hospitalization ordered by Anmol Salazar for Inpatient Admission. Preliminary diagnosis is Pneumonia due to other specified infectious organisms. - Bed requested for Telemetry/MedSurg (Inpatient). - Status is Inpatient Admission. ak1 - Condition is Stable. - Problem is new. - Symptoms are unchanged. UTI on Admission? No Signatures: Dispatcher [employer] [facility] Almaz Mcclendon RN RN Joy Beltran RN RN [facility] Josselin Rosa RN RN Colleen Isaac MD MD ma2 Corrections: (The following items were deleted from the chart) 00:43 05/28 22:56 IV Saline Lock ordered. [place] [id number] 05/29 00:49 05/28 22:57 BLOOD CULTURE*+BA.LAB.BRZ ordered. [facility] 05/29 01:28 00:33 Hospitalization Ordered by Anmol Salazar MD for Inpatient Admission. Preliminary diagnosis is Pneumonia due to other specified infectious organisms. Bed requested for Telemetry/MedSurg (Inpatient). Status is Inpatient Admission. Condition is Stable. Problem is new. Symptoms are unchanged. UTI on Admission? No. ma2 01:59 01:28 05/29/2018 00:33 Hospitalization Ordered by Anmol Salazar MD for Inpatient ak1 Admission. Preliminary diagnosis is Pneumonia due to other specified infectious organisms. Bed requested for Telemetry/MedSurg (Inpatient). Status is Inpatient Admission. Condition is Stable. Problem is new. Symptoms are unchanged. UTI on Admission? No. mw
--- NOTE | 2018-05-29 00:35 | ER ---
Nurse's Notes [facility] Name: Sergio Perez Age: 78 yrs Sex: Male : 1940 Arrival Date: 05/28/2018 Time: 22:49 Bed 17 Private MD: Diagnosis: Pneumonia due to other specified infectious organisms Presentation: 05/28 22:51 Presenting complaint: Patient states: SOB since 1900. pt denies pain. pt stated he felt ak1 fine today at dialysis. Transition of care: patient was not received from another setting of care. Onset of symptoms was May 28, 2018. Risk Assessment: Do you want to hurt yourself or someone else? Patient reports no desire to harm self or others. Initial Sepsis Screen: Does the patient meet any 2 criteria? No. Patient's initial sepsis screen is negative. Does the patient have a suspected source of infection? No. Patient's initial sepsis screen is negative. Care prior to arrival: pt had an albuterol treatment at home [facility] [facility]. 22:51 Method Of Arrival: EMS: [facility] ak 22:51 Acuity: KARLENE 3 ak1 Triage Assessment: 22:55 General: Appears in no apparent distress. Behavior is calm, cooperative. Pain: Denies ak1 pain. EENT: No signs and/or symptoms were reported regarding the EENT system. Neuro: No deficits noted. Cardiovascular: No deficits noted. Respiratory: Reports shortness of breath since 0 cough that is dry. GI: No signs and/or symptoms were reported involving the gastrointestinal system. : No signs and/or symptoms were reported regarding the genitourinary system. Derm: No signs and/or symptoms reported regarding the dermatologic system. Musculoskeletal: No signs and/or symptoms reported regarding the musculoskeletal system. Historical: - Allergies: 22:55 SHELLFISH; ak1 22:55 Iodine; ak1 22:55 Cipro; ak1 22:55 Demerol; ak1 - Home Meds: 22:55 albuterol sulfate 2.5 mg /3 mL (0.083 %) Inhl nebu 1 vial daily [Active]; allopurinol ak1 200 mg Oral 2 tabs daily [Active]; amiodarone 200 mg Oral tab 0.5 tab daily [Active]; aspirin 81 mg Oral TbEC 1 tab twice daily [Active]; clopidogrel 75 mg Oral tab 1 tab once daily [Active]; Ferrous Sulfate 65 mg Oral 1x daily [Active]; fluticasone 50 mcg/actuation nasal spsn 1 spray 2 times per day [Active]; gabapentin Oral 1 tab 3 times per day [Active]; indura 800 mg 2 tabs before each meal TID [Active]; ipratropium bromide 0.02 % inhalation soln 2.5 mL 4 times per day [Active]; nitroglycerin 0.4 mg Oral as needed [Active]; omeprazole 20 mg Oral TbEC twice a day [Active]; Tums Oral 2 tabs per meal [Active]; vitamin A 8,000 unit Oral cap 1 cap once daily [Active]; vitamin d1 tablet 2000 IU daily [Active]; zinc sulfate 220 (50) mg Oral cap daily [Active]; - PMHx: 22:55 CHF; COPD; Diabetes - NIDDM; Dialysis; M-W-F; ESRD; GERD; Gout; Pacemaker; with defib; ak1 Hypertension; - Immunization history:: Adult Immunizations unknown. - Social history:: Smoking status: Patient/guardian denies using tobacco, Patient/guardian denies using alcohol, street drugs, The patient lives with family. - Ebola Screening: : No symptoms or risks identified at this time. - Family history:: not pertinent. Screenin:59 Abuse screen: Denies threats or abuse. Denies injuries from another. Nutritional ak1 screening: No deficits noted. Tuberculosis screening: No symptoms or risk factors identified. Fall Risk None identified. Assessment: 23:00 Reassessment: RT at bedside to suction pt trach, nothing is coming up in suctioning. ak1 05/29 00:14 Reassessment: Patient appears in no apparent distress at this time. no IV access at ak this time, blood obtained and sent to lab. ERP notified and at bedside with US to attempt IV access. 01:10 Reassessment: Patient appears in no apparent distress at this time. Patient and/or ak1 family updated on plan of care and expected duration. Pain level reassessed. Patient is alert, oriented x 3, equal unlabored respirations, skin warm/dry/pink. no IV access obtained, ERP ordered PICC line placement in the morning. pt with PO medications ordered. Patient states symptoms have improved. 01:40 Reassessment: Report called to receiving nurse on fourth floor. ea Vital Signs: 05/28 22:50 BP 110 / 61; Pulse 97; Resp 18; Temp 99.1(O); Pulse Ox 100% on R/A; Weight 138.35 kg ak1 (R); Height 5 ft. 11 in. (180.34 cm) (R); Pain 0/10; 05/29 00:39 BP 99 / 66; Pulse 91; Resp 18; Temp 99.1; Pulse Ox 100% on 4 lpm NC; ak1 01:08 BP 113 / 60; Pulse 90; Resp 20; Pulse Ox 100% on 4 lpm NC; ak1 05/28 22:50 Body Mass Index 42.54 (138.35 kg, 180.34 cm) ak1 ED Course: 05/28 22:49 Patient arrived in ED. ds1 22:[address], RN is Primary Nurse. ak1 22:53 Triage completed. ak1 22:54 Colleen Salvador MD is Attending Physician. ma2 22:55 Arm band placed on Patient placed in an exam room, on a stretcher, on target developer, ak1 on pulse oximetry, Patient notified of wait time. 22:59 Patient has correct armband on for positive identification. Placed in gown. Bed in low ak1 position. Call light in reach. Side rails up X2. 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 Pulse ox on. NIBP on. 23:13 XRAY CXR (1 view) In Process Unspecified. EDMS 23:40 Missed attempt(s): 22 gauge in right hand. Bleeding controlled, band aid applied, ea catheter tip intact. 23:56 Missed attempt(s): 20 gauge in right hand. Bleeding controlled, band aid applied, bb catheter tip intact. Missed attempt(s): 22 gauge in right wrist. Bleeding controlled, band aid applied, catheter tip intact. 05/29 00:16 Notified ED physician of a critical lab result(s). Creatinine of 5.71 Dr Luis arnold notified. 00:16 No provider procedures requiring assistance completed. ak1 00:33 Anmol Salazar MD is Hospitalizing Provider. ma2 00:36 Missed attempt(s): 24 gauge in right hand. Bleeding controlled, band aid applied, ea catheter tip intact. 01:11 Patient did not have IV access during this emergency room visit. ak1 Administered Medications: 00:35 Drug: Doxycycline 100 mg Route: PO; ea 01:11 Follow up: Response: No adverse reaction ak1 00:36 Not Given (Physician Discretion): vancoMYCIN 1 grams IVPB once over 2 hrs ea 00:36 Not Given (Physician Discretion): Cefepime 1 grams IVPB at 200 ml/hr once over 30 mins; ea (mix in NS 100 mL) 00:36 Drug: AZITHromycin 500 mg Route: PO; ea 01:11 Follow up: Response: No adverse reaction ak1 Outcome: 00:33 Decision to Hospitalize by Provider. ma2 01:10 Condition: stable ak1 01:10 Instructed on the need for admit. 01:39 Admitted to Med/surg accompanied by nurse, via wheelchair, room 412, with oxygen, with ak1 chart. 01:59 Patient left the ED. ak1 Signatures: Dispatcher [employer] [facility] Zaida Pulliam Brenda, RN RN bb Krenek, Amber, RN RN ak1 Josselin Rosa RN RN ea Alzahri, Mohammad, MD MD ma2
[2018-05-29] MEDS ORDERED: ACETAMINOPHEN 500 MG TAB PO PRN (00:38)
[2018-05-29] MEDS ORDERED: ONDANSETRON 4 MG/2 ML VIAL IV PRN (00:38)
[2018-05-29] MEDS ORDERED: DOXYCYCLINE 100 MG CAP PO ONE (00:41)
[2018-05-29] MEDS ORDERED: AZITHROMYCIN 250 MG TAB ONE (00:41)
[2018-05-29] MEDS: ALBUTEROL 2.5 MG/3 ML NEB SOL NEB PRN ×3 (03:48→19:58)
[2018-05-29] MEDS: IPRATROPIUM BROM 0.5MG/2.5ML NEB PRN ×3 (03:48→19:58)
[2018-05-29] MEDS ORDERED: CEFTRIAXONE 1 GM/NS 50 ML 1 GM/50 ML BAG IV SCH (09:00)
[2018-05-29] MEDS ORDERED: CEFTRIAXONE/SWI 1gm 1 GM/10 ML SYR IV SCH (09:00)
[2018-05-29] MEDS ORDERED: AZITHROMYCIN 250 MG TAB PO SCH (09:00)
[2018-05-29] MEDS ORDERED: NITROGLYCERIN 0.4 MG/TAB SL SCH (11:00)
--- NOTE | 2018-05-29 11:31 | EKG ---
Test Date: 2018-05-28 Test Time: 23:07:05 Auto Mechanic: LILLI MEASUREMENT RESULTS: Intervals: Rate: 88 MA: 176 QRSD: 152 QT: 454 QTc: 549 [place]: P: 18 MA: 176 QRS: -48 T: 99 INTERPRETIVE STATEMENTS: Electronic ventricular pacemaker Compared to ECG 04/16/2018 02:52:37 No significant changes Electronically Signed On 05-29-18 10:23:29 [employer] by Bhupendra Samson
--- NOTE | 2018-05-29 11:55 | RAD REPORT ---
EXAM DESCRIPTION: RAD - Chest Single View - 05/28/2018 11:11 pm CLINICAL HISTORY: COUGH Chest pain. COMPARISON: Chest Pa And Lat (2 Views) dated 04/17/2018; Chest Single View dated 04/12/2018; Chest Sin gle View dated 12/08/2017; Chest Single View dated 06/28/2017 FINDINGS: Portable technique limits examination quality. The lungs are grossly clear. The heart is mildly enlarged in size with a multi lead pacer/defibrillat or device. No displaced fractures.Tracheostomy tube is in place. IMPRESSION: No acute intrathoracic process suspected.
[2018-05-29] MEDS: DULERA 200/5 (MOMETASONE/FORMOTEROL) INHALER IH SCH ×2 (12:12→21:15)
[2018-05-29] MEDS: TIOTROPIUM 5 SPRAYS/INHALER IH SCH (12:12)
[2018-05-29] MEDS: SEVELAMER CARBONATE 800 MG TABLET PO SCH ×2 (12:13→17:36)
[2018-05-29] MEDS ORDERED: GLUCAGON 1 MG/VIAL IM PRN (13:33)
[2018-05-29] MEDS ORDERED: D50W 25 GM/50 ML SYRINGE IV PRN (13:33)
[2018-05-29] MEDS: GABAPENTIN 100 MG CAP PO SCH ×2 (13:39→21:15)
--- NOTE | 2018-05-29 14:46 | RAD REPORT ---
EXAM DESCRIPTION: US - Extrem Venous W Compress Alvarez - 05/29/2018 2:36 pm CLINICAL HISTORY: leg edema, rule out DVT Bilateral leg edema and swelling. COMPARISON: Extremity Venous Uni Ltd dated 01/23/2018 TECHNIQUE: Real-time sonographic interrogation of the left and right lower extremity deep venous sys tems was performed. FINDINGS: Normal compressibility, flow augmentation, phasic flow and spontaneous flow is identified in both the left and right lower extremity deep venous systems. IMPRESSION: No sonographic evidence of left or right lower extremity deep venous thrombosis.
--- NOTE | 2018-05-29 15:53 | P.CNS ---
Date of Consult: 05/29/18 Reason for Consult: ESRD to resume HD Chief Complaint: cough and SOB History of Present Illness: A 78-year-old man with PMHx of ESRD on HD MWF from [facility], DM, HTN, Afib, CHF S/P rt AICD and CODP pt also on trachesosotmy but doesnt require Oxygen Pt presented perssitent cough and SOB no fever, chills, diarrhea or vomiting [facility]p is [place]oderline [place] base Allergies iodine [Iodine] Allergy (Intermediate, Verified 04/13/18 02:39) Itching SHELLFISH Allergy (Uncoded 06/02/15 15:35) Unknown Home Medications: Albuterol Neb [Proventil 0.083% Neb Soln] 1 amp NEB DAILY 04/13/18 Allopurinol [Zyloprim*] 2 tab PO DAILY 04/13/18 Amiodarone HCl [Cordarone*] 0.5 tab PO DAILY 04/13/18 Aspirin Chewable [Aspirin Chewable*] 2 tab PO DAILY 04/13/18 Cholecalciferol (Vitamin D3) [Vitamin D3] 1 cap PO DAILY 04/13/18 Clopidogrel Bisulfate [Plavix*] 75 mg PO DAILY 04/13/18 Famotidine/Ca Carb/Mag Hydrox [Tums Dual Action Tablet Chew] 2 tab PO TIDWM 05/01 Fluticasone Propionate [Flonase Allergy Relief] 1 spray NS BID 04/13/18 Gabapentin [Neurontin*] 100 mg PO TID 04/13/18 Ipratropium Neb [Atrovent*] 1 amp NEB QID 04/13/18 Nitroglycerin [Nitrostat] 0.4 mg SL PRN 04/13/18 Omeprazole 1 tab PO BID 04/13/18 Sevelamer Carbonate [Renvela*] 2 tab PO AC 04/13/18 Vitamin A 8,000 unit PO DAILY 04/13/18 Zinc 1 tab PO DAILY 04/13/18 Ferrous Sulfate 325 mg PO DAILY 05/29/18 - Past Medical/Surgical History Diabetic: Yes -: NIDDM - not on any meds -: HTN -: ESRD -: gout -: GERD -: arthritis -: Diverticulitis -: dialysis: MWF -: anemia -: sleep apnea -: gout -: oa -: trach 06/2002 -: HD graft - L upper arm -: pacemaker - Family History Brother Medical History: Hypertension Mother Medical History: Heart disease, Hypertension Sister Medical History: Cancer Notes: breast cancer - Social History Smoking Status: Never smoker Alcohol use: No CD- Drugs: No Caffeine use: Yes Place of Residence: Home Physical Examination Temp Pulse Resp BP Pulse Ox 97.1 F 87 20 103/58 L 100 05/29/18 12:00 05/29/18 12:00 05/29/18 12:00 05/29/18 12:00 05/29/18 12:00 General: Oriented x3 HEENT: Atraumatic Neck: Supple, Without JVD or thyroid abnormality Respiratory: Clear to auscultation bilaterally, Normal air movement Cardiovascular: No edema, Regular rate/rhythm, Normal S1 S2 Laboratory Data (last 24 hrs) 05/28/18 23:30: PT 13.4 H, INR 1.14, APTT 25.1 05/28/18 23:30: WBC 6.3, Hgb 9.2 L, Hct 29.2 L, Plt Count 176 05/28/18 23:30: Sodium 140, Potassium 4.3, BUN 13, Creatinine 5.71 H*, Glucose 127 H, Magnesium 2.2, Total Bilirubin 0.4, AST 13 L, ALT 13, Alkaline Phosphatase 75, Lipase 205 - Problems (1) Acute exacerbation of chronic obstructive airways disease Onset Date: 07/02/15 Current Visit: No Status: Acute (2) Anemia in chronic kidney disease (CKD) Onset Date: 01/22/15 Current Visit: No Status: Chronic (3) End stage renal failure on dialysis Current Visit: No Status: Chronic Conclusions/Impression: A 78-year-old man with PMHx of ESRD on HD MWF from [facility], DM, HTN, Afib, CHF S/P rt AICD and CODP pt also on trachesosotmy but doesnt require Oxygen Pt presented persistent cough and SOB no fever, chills, diarrhea or vomiting [facility] was admitted last month for similar symptoms ESRD on HD MWF will cont MWF renal diet renal dose meds midodrine on HD days Anemia will start on JAIRO anemia W/u MBD Cont renvela Acute bronchitis/COPD exacerbation Abx and steroids CXR no infiltrate
--- NOTE | 2018-05-29 15:55 | HP ---
Date of Admission: 05/29/2018 Chief Complaint: Cough, congestion, shortness of breath. History Of Present Illness: This is a 78-year-old male patient, who has multiple chronic medical pro blems, came into emergency room with complaints of cough, congestion, shortness of breath that starte d yesterday. The patient went for his dialysis, had his dialysis session and then later on he came i [facility] emergency room with this complaints. Denies coughing up any mucus. No fever. No chills. The p atient says that he uses nebulizer treatment at home, albuterol and Atrovent. His Atrovent treatment he uses 4 times a day, but albuterol treatment he says he uses only once a day as his insurance will not approve but only once a day albuterol treatment and he gets this prescription through Dr. Florencia gutierrez and I have advised him to communicate with his office to see how they can help him. He gets this prescription through [facility]. Allergies: TO IODINE. Medications: List reviewed. Review of Systems: Respiratory: As mentioned above. Cardiovascular: Complaining of leg edema, more so on left leg than the right leg. All other systems reviewed and negative. Social History: Negative for smoking, alcohol use. Family History: Significant for asthma, hypertension, breast cancer. Past Surgical History: AICD placement June 2014, tracheostomy many years ago. Past Medical History: Significant for end-stage renal disease on hemodialysis, COPD, chronic systoli c congestive heart failure with ejection fraction around 20%-25%, anemia due to chronic kidney diseas e, sleep apnea, coronary artery disease, diabetes mellitus, allergic rhinitis, diverticulosis, osteoa rthritis at multiple sites, gastroesophageal reflux disease, prostate cancer, cervical spondylosis wi th radiculopathy. Past medical history also significant for diverticulitis. Physical Examination: Vital Signs: Last temperature 97, pulse 79, respiratory rate 20, blood pressure 105/62, oxygen satur ation 99%, height 5 feet 11 inches, weight 297 pounds. General: Awake, alert, oriented, not in distress. HEENT: Head atraumatic, normocephalic. Conjunctivae nonerythematous. Sclerae white. Mouth, no thr ush or edema noted. Ears/Nose, no mass, lesion, discharge noted. Neck: Presence of tracheostomy tube. Lungs: Bilateral scattered wheezing noted in all the lung [place]. Not using accessory muscles of re spiration at rest, but when he communicates he gets into mild respiratory distress. Heart: Normal heart sounds, no murmur or gallop. Abdomen: Soft, bowel sounds normal. No guarding, rigidity, tenderness, mass, hepatosplenomegaly, dis tention, or bruit noted. Extremities: Bilateral leg edema. Right leg has grade 1 edema. Left leg has grade 2 edema. Skin: No rash, ulcer, cellulitis. Lymphatics: No lymph node enlargement in neck, supraclavicular, infraclavicular region. Neuro: No focal neurological deficit. Chest: Unremarkable. External Genitalia: Deferred. Rectal: Deferred. Laboratory Data: White count 6.3, hemoglobin 9.2, platelets 176. Blood gas; pH 7.46, pCO2 39.8, pO2 113, oxygen saturation 98% on 28 FiO2. Sodium 140, potassium 4.3, chloride 104, bicarb 29, BUN 13, creatinine 5.71, glucose 127. Liver function tests unremarkable. Troponin 0.04 on the first set and second set 0.06. ProBNP 38,301. Lipase 205. Chest x-ray, increased lung marking raising possibili ty of pneumonia, but radiologist has not reported that as a pneumonia. Impression: 1.Acute exacerbation of chronic obstructive pulmonary disease. 2.Rule out pneumonia. 3.Leg edema, rule out deep venous thrombosis. 4.End-stage renal disease, on hemodialysis. 5.Anemia due to chronic kidney disease. 6.Coronary artery disease. 7.Diabetes mellitus. 8.Hypertension. 9.Chronic systolic congestive heart failure. 10.Allergic rhinitis. 11.Diverticulosis. 12.Gastroesophageal reflux disease. 13.Prostate cancer. Plan: Admit the patient to hospital for further evaluation and management of this problem. The lui ent is appropriate for inpatient and is expected to spend 2 midnights in hospital. We will go ahead and continue home medications per order. Give nebulizer treatment oxygen, steroid, antibiotics per o rder. DVT prophylaxis will be given using heparin per order. Consult java spring developer. Give IV steroid s and I will see him tomorrow for followup. Let start him on Dulera and Spiriva inhaler per order. ODESSA/MODL Voice ID: [id number]
[2018-05-29] MEDS: INSULIN -REGULAR HUMAN 50 UNIT/0.5 ML ML SQ SCH ×2 (16:30→21:00)
[2018-05-29] MEDS: CEFTRIAXONE/SWI 1gm 1 GM/10 ML SYR IV SCH (17:37)
[2018-05-29] MEDS: METHYLPREDNISOLONE 40 MG INJ IV SCH ×2 (17:37→23:20)
[2018-05-29] MEDS ORDERED: HOME MED 1 EA UNK (Omeprazole [Omeprazole] 1 TAB) PO SCH (21:00)
[2018-05-29] MEDS: FLUTICASONE 50MCG NASAL SPRAY NAS SCH ×2 (21:00→21:20)
[2018-05-29] MEDS: HEPARIN 5000 UNIT/ML 1 ML VIAL SQ SCH (21:16)
[2018-05-29] MEDS: PANTOPRAZOLE 40MG TABLET PO SCH (21:16)
[2018-05-29] MEDS: AZITHROMYCIN 250 MG TAB PO SCH (23:20)
[2018-05-30] MEDS: ALBUTEROL 2.5 MG/3 ML NEB SOL NEB PRN ×2 (04:20→20:50)
[2018-05-30] MEDS: IPRATROPIUM BROM 0.5MG/2.5ML NEB PRN ×2 (04:20→20:50)
[2018-05-30] MEDS: METHYLPREDNISOLONE 40 MG INJ IV SCH ×4 (05:25→23:10)
[2018-05-30] MEDS: CEFTRIAXONE/SWI 1gm 1 GM/10 ML SYR IV SCH ×2 (05:25→16:57)
[2018-05-30 06:07] LABS: Absolute Lymphocytes (CBC) 0.5 K/uL (0.7-4.9); Absolute Monocytes 0.1 K/uL (0.1-1.3); Absolute Neutrophil 4.9 K/uL (1.8-8.0); Basophils % 0.2 % (0-1.3); Hematocrit 28.5 % (39.6-49.0); Lymphocytes % 9.4 % (15.3-44.8); MPV 10.6 fL (7.6-11.3); Monocytes % 1.3 % (3.3-12.3); RBC Red Blood Cell Count 2.91 M/uL (4.33-5.43)
[2018-05-30 06:39] LABS: Ferritin 819.4 ng/mL (26-388); Folic Acid, (Folate) 4.8 ng/mL (3.1-17.5)
[2018-05-30 06:59] LABS: Potassium 5.1 mmol/L (3.5-5.1)
[2018-05-30] MEDS: DULERA 200/5 (MOMETASONE/FORMOTEROL) INHALER IH SCH ×2 (08:34→20:32)
[2018-05-30] MEDS: TIOTROPIUM 5 SPRAYS/INHALER IH SCH (08:34)
[2018-05-30] MEDS: ALLOPURINOL 100 MG TAB PO SCH (08:35)
[2018-05-30] MEDS: SEVELAMER CARBONATE 800 MG TABLET PO SCH ×3 (08:35→16:58)
[2018-05-30] MEDS: FLUTICASONE 50MCG NASAL SPRAY NAS SCH ×2 (08:35→20:32)
[2018-05-30] MEDS: FERROUS SULFATE 325 MG TAB PO SCH (08:36)
[2018-05-30] MEDS: CLOPIDOGREL 75 MG TABLET PO SCH (08:36)
[2018-05-30] MEDS: GABAPENTIN 100 MG CAP PO SCH ×3 (08:36→20:32)
[2018-05-30] MEDS: ASPIRIN 81 MG CHEWABLE TABLET PO SCH (08:37)
[2018-05-30] MEDS: VITAMIN D 1000 UNIT TAB PO SCH (08:37)
[2018-05-30] MEDS: PANTOPRAZOLE 40MG TABLET PO SCH ×2 (08:37→20:32)
[2018-05-30] MEDS: AMIODARONE HCL 200 MG TAB PO SCH (08:38)
[2018-05-30] MEDS: HEPARIN 5000 UNIT/ML 1 ML VIAL SQ SCH ×2 (08:39→20:33)
[2018-05-30] MEDS: INSULIN -REGULAR HUMAN 50 UNIT/0.5 ML ML SQ SCH ×4 (08:39→20:32)
[2018-05-30 09:10] LABS: Blood Morphology Comment NOT SEEN (NOT SEEN); Platelet Estimate ADEQ
--- NOTE | 2018-05-30 12:56 | PN ---
Date of Progress Note: 05/30/2018 Subjective: The patient was seen this morning for followup. No new complaints or problems reported by patient. He is feeling a little better today compared to yesterday, but looks lot better compared to yesterday. Objective: Vital Signs: Reviewed. HEENT: Unremarkable. Lungs: Bilateral good and equal air entry with scattered wheezing, but overall better today than yes terday. Not using accessory muscles of respiration. Heart: Heart sounds normal. Abdomen: Soft. Bowel sounds normal. No guarding, rigidity, tenderness, or distention. Extremities: Leg edema remains unchanged from yesterday. Laboratory Data: White count 5.5, hemoglobin 9, platelets 117. Sodium 137, potassium 5.1, chloride 102, bicarb 27, BUN 27, creatinine 8.17, glucose 195. Venous Doppler of both lower extremities negat go for DVT. Impression: 1.Acute exacerbation of chronic obstructive pulmonary disease. 2.End-stage renal disease, on hemodialysis. 3.Anemia due to chronic kidney disease. 4.Chronic systolic congestive heart failure. 5.Hypertension. Plan: We will continue current medications, oxygen nebulizer treatment, steroid, antibiotic. Nephro logy consult for hemodialysis, which will be done tomorrow, and depending on the patient's condition, we will decide if he is stable for discharge tomorrow or not. ODESSA/MODL Voice ID: [id number] Report ID: [id number]
--- NOTE | 2018-05-30 14:58 | P.PN ---
Subjective Date of Service: 05/30/18 Chief Complaint: cough and SOB Subjective: Improving ESRD admitted for cough and SOB improving on inhalers , steroids and Abx HD tomorrow , mididinr before HD can be discharged from nephrology point of view Physical Examination - Vital Signs Temperature: 97.2 F Blood Pressure: 159/70 Pulse: 79 Respirations: 18 Pulse Ox (%): 100 - Physical Exam General: In no apparent distress, Oriented x3 Neck: Supple, Without JVD or thyroid abnormality Respiratory: Clear to auscultation bilaterally, Normal air movement Cardiovascular: No edema, Regular rate/rhythm, Normal S1 S2, No gallops, No rubs , No murmurs Gastrointestinal: Normal bowel sounds Integumentary: No rashes Assessment And Plan - Current Problems (Diagnosis) (1) Acute exacerbation of chronic obstructive airways disease Onset Date: 07/02/15 Current Visit: No Status: Acute (2) Anemia in chronic kidney disease (CKD) Onset Date: 01/22/15 Current Visit: No Status: Chronic (3) End stage renal failure on dialysis Current Visit: No Status: Chronic - Plan ESRD on HD MWF will cont MWF renal diet renal dose meds midodrine on HD days Anemia will start on JAIRO anemia W/u MBD Cont renvela Acute bronchitis/COPD exacerbation Abx and steroids CXR no infiltrate
[2018-05-30] MEDS: SOD FERRIC GLUC COMPLX/SUCROSE 125 MG in NA CHLORIDE 0.9% 100 ML IV SCH (16:58)
[2018-05-30] MEDS: AZITHROMYCIN 250 MG TAB PO SCH (23:10)
[2018-05-31] MEDS: CEFTRIAXONE/SWI 1gm 1 GM/10 ML SYR IV SCH ×2 (05:16→17:12)
[2018-05-31] MEDS: METHYLPREDNISOLONE 40 MG INJ IV SCH ×4 (05:16→23:13)
[2018-05-31 05:43] VITALS: BMI 42.0
[2018-05-31] MEDS: INSULIN -REGULAR HUMAN 50 UNIT/0.5 ML ML SQ SCH ×4 (07:30→20:48)
[2018-05-31] MEDS: ALLOPURINOL 100 MG TAB PO SCH (08:21)
[2018-05-31] MEDS: AMIODARONE HCL 200 MG TAB PO SCH (08:21)
[2018-05-31] MEDS: PANTOPRAZOLE 40MG TABLET PO SCH ×2 (08:22→20:55)
[2018-05-31] MEDS: VITAMIN D 1000 UNIT TAB PO SCH (08:22)
[2018-05-31] MEDS: SEVELAMER CARBONATE 800 MG TABLET PO SCH ×3 (08:22→16:33)
[2018-05-31] MEDS: GABAPENTIN 100 MG CAP PO SCH ×4 (08:22→20:55)
[2018-05-31] MEDS: ASPIRIN 81 MG CHEWABLE TABLET PO SCH (08:22)
[2018-05-31] MEDS: FERROUS SULFATE 325 MG TAB PO SCH (08:22)
[2018-05-31] MEDS: CLOPIDOGREL 75 MG TABLET PO SCH (08:22)
[2018-05-31] MEDS: FLUTICASONE 50MCG NASAL SPRAY NAS SCH ×2 (08:38→20:56)
[2018-05-31] MEDS: TIOTROPIUM 5 SPRAYS/INHALER IH SCH (08:38)
[2018-05-31] MEDS: DULERA 200/5 (MOMETASONE/FORMOTEROL) INHALER IH SCH ×2 (08:39→20:56)
[2018-05-31] MEDS: HEPARIN 5000 UNIT/ML 1 ML VIAL SQ SCH ×2 (08:40→20:59)
[2018-05-31] MEDS: ALBUMIN HUMAN 25% 50 ML IV SCH (10:37)
[2018-05-31] MEDS: EPOETIN ALFA 4000 UNIT/1 ML VIAL SQ SCH (12:46)
[2018-05-31] MEDS ORDERED: MIDODRINE HCL 5 MG TABLET PO PRN (15:46)
[2018-05-31] MEDS: SOD FERRIC GLUC COMPLX/SUCROSE 125 MG in NA CHLORIDE 0.9% 100 ML IV SCH (17:07)
[2018-05-31] MEDS: ALBUTEROL 2.5 MG/3 ML NEB SOL NEB PRN (18:16)
[2018-05-31] MEDS: IPRATROPIUM BROM 0.5MG/2.5ML NEB PRN (18:16)
[2018-05-31] MEDS: AZITHROMYCIN 250 MG TAB PO SCH (23:13)
--- NOTE | 2018-06-01 00:50 | PN ---
Date of Progress Note: 05/31/2018 Subjective: The patient was seen this morning for followup. He was sleeping, easily arousable, not in distress. Overall, his breathing is better than yesterday. No new complaints or problems reporte d. Objective: Vital Signs: Reviewed. HEENT: Unremarkable. Lungs: Bilateral good and equal air entry. Presence of some scattered wheezing noted, not in any re spiratory distress. Overall much better than before. Heart: Sounds normal. Abdomen: Soft. Bowel sounds normal. No guarding, rigidity, tenderness, or distention. Extremities: Bilateral leg edema unchanged. Laboratory Data: Reviewed. Impression: 1.Acute exacerbation of chronic obstructive pulmonary disease. 2.End-stage renal disease, on hemodialysis. 3.Anemia due to chronic kidney disease. 4.Coronary artery disease. 5.Chronic systolic congestive heart failure. Plan: We will continue current medications, steroid, oxygen nebulizer treatment. The patient will h ave dialysis today and possible discharge to go home tomorrow. Details were discussed with the patiwalter espinosa. ODESSA/MODL Voice ID: [id number] Report ID: [id number]
--- NOTE | 2018-06-01 04:18 | PN ---
Date of Progress Note: 05/31/2018 Chief Complaint: Respiratory failure, hypoxemia, congestive heart failure with systolic and diastoli c dysfunction and chronic heart disease with hypertensive heart disease. The patient has history of COPD, status post tracheostomy. The patient has multiple medical problems. He has previous multiple admissions for shortness of xiomara th and pneumonia and COPD exacerbation. Review of Systems: Denies PND. Denies wheezing. Denies chest pain, syncope. Physical Examination: Lungs: Crackles bilaterally present. Heart: S1, S2. Abdomen: Soft, benign. Extremities: Edema present in both legs. Impression/plan: 1.End-stage renal disease and fluid overload. The patient is undergoing dialysis today with ultrafi ltration. Monitor blood pressure closely during dialysis and adjust ultrafiltration goal accordingly . 2.The patient has history of intradialytic hypotension. Continue midodrine for blood pressure suppo rt. 3.Renal osteodystrophy. Continue Renvela. Monitor phosphorus level. 4.Anemia and chronic kidney disease. The patient will continue JAIRO. Monitor hemoglobin level. EB/MODL Voice ID: [id number] Report ID: [id number]
[2018-06-01] MEDS: METHYLPREDNISOLONE 40 MG INJ IV SCH ×3 (06:33→17:57)
[2018-06-01] MEDS: CEFTRIAXONE/SWI 1gm 1 GM/10 ML SYR IV SCH ×2 (06:33→17:57)
[2018-06-01] MEDS: INSULIN -REGULAR HUMAN 50 UNIT/0.5 ML ML SQ SCH ×4 (08:53→22:36)
[2018-06-01] MEDS: AMIODARONE HCL 200 MG TAB PO SCH (08:54)
[2018-06-01] MEDS: GABAPENTIN 100 MG CAP PO SCH ×3 (08:54→22:34)
[2018-06-01] MEDS: HEPARIN 5000 UNIT/ML 1 ML VIAL SQ SCH ×2 (08:54→22:35)
[2018-06-01] MEDS: VITAMIN D 1000 UNIT TAB PO SCH (08:55)
[2018-06-01] MEDS: ASPIRIN 81 MG CHEWABLE TABLET PO SCH (08:55)
[2018-06-01] MEDS: PANTOPRAZOLE 40MG TABLET PO SCH ×2 (08:55→22:34)
[2018-06-01] MEDS: FERROUS SULFATE 325 MG TAB PO SCH (08:56)
[2018-06-01] MEDS: ALLOPURINOL 100 MG TAB PO SCH (08:56)
[2018-06-01] MEDS: SEVELAMER CARBONATE 800 MG TABLET PO SCH ×3 (08:56→16:04)
[2018-06-01] MEDS: CLOPIDOGREL 75 MG TABLET PO SCH (08:56)
[2018-06-01] MEDS: DULERA 200/5 (MOMETASONE/FORMOTEROL) INHALER IH SCH ×2 (08:57→22:35)
[2018-06-01] MEDS: TIOTROPIUM 5 SPRAYS/INHALER IH SCH (08:58)
[2018-06-01] MEDS: FLUTICASONE 50MCG NASAL SPRAY NAS SCH ×2 (09:00→22:36)
[2018-06-01 12:12] LABS: Potassium 4.9 mmol/L (3.5-5.1)
[2018-06-01] MEDS: SOD FERRIC GLUC COMPLX/SUCROSE 125 MG in NA CHLORIDE 0.9% 100 ML IV SCH (16:04)
[2018-06-01] MEDS: ALBUTEROL 2.5 MG/3 ML NEB SOL NEB PRN (16:17)
[2018-06-01] MEDS: IPRATROPIUM BROM 0.5MG/2.5ML NEB PRN (16:17)
[2018-06-01] MEDS: AZITHROMYCIN 250 MG TAB PO SCH (22:34)
--- NOTE | 2018-06-01 22:43 | PN ---
Date of Progress Note: 06/01/2018 Chief Complaint: End-stage renal disease, on dialysis. History Of Present Illness: The patient has congestive heart failure with diastolic dysfunction and intradialytic hypotension. Today, he was scheduled to have dialysis with ultrafiltration. The patie nt will have midodrine to prevent intradialytic hypotension. Review of Systems: Denies fever, chills, or syncope. Has dyspnea on exertion, dyspnea at rest. Denies hemoptysis. Physical Examination: Lungs: Crackles bilaterally at bases. Heart: S1, S2. Abdomen: Soft, benign. Extremities: Edema present in both legs. Impression And Plan: 1.End-stage renal disease, fluid overload. Dialysis will be done today with ultrafiltration. Monit or blood pressure closely during dialysis and adjust ultrafiltration goal accordingly. 2.The patient has history of intradialytic hypotension. Monitor blood pressure and continue midodri ne. 3.Renal osteodystrophy. Continue Renvela. Monitor phosphorus level. 4.Anemia and chronic kidney disease. Continue JAIRO. Monitor hemoglobin level. ALEXI/PATRICK Voice ID: [id number] Report ID: [id number]
--- NOTE | 2018-06-01 23:33 | PN ---
Date of Progress Note: 06/01/2018 Subjective: The patient was seen this morning for followup. No new complaints, problems reported by him. Lying in bed. Not in distress. Feeling much better. Objective: Vital Signs: Reviewed. HEENT: Examination unremarkable. Lungs: Clear to auscultation. No rhonchi or rales. Heart: Sounds normal. Abdomen: Soft. Bowel sounds normal. No guarding, rigidity, tenderness, or distention. Extremities: Bilateral leg edema. In fact his leg edema looks worse today than yesterday. Impression: 1.Acute exacerbation of chronic obstructive pulmonary disease. 2.End-stage renal disease, on hemodialysis. 3.Chronic systolic congestive heart failure. Plan: The patient reported that yesterday his dialysis session was not complete because of a drop in the blood pressure during dialysis, so today cutting room supervisor is planning to do another session of dialy sis. My plan was originally to discharge him to go home after his dialysis session but the nurse inf ormed me that the patient will not go for dialysis until very late today so he will not be able to go home as it will be nighttime by the time he gets done with his dialysis. So, we will see him tomorr ow and probably plan for discharge tomorrow depending on his condition. ODESSA/MODL Voice ID: [id number] Report ID: [id number]
[2018-06-02] MEDS: METHYLPREDNISOLONE 40 MG INJ IV SCH ×2 (00:38→05:44)
[2018-06-02] MEDS: CEFTRIAXONE/SWI 1gm 1 GM/10 ML SYR IV SCH (05:44)
[2018-06-02] MEDS: INSULIN -REGULAR HUMAN 50 UNIT/0.5 ML ML SQ SCH ×2 (07:30→11:25)
[2018-06-02] MEDS: SEVELAMER CARBONATE 800 MG TABLET PO SCH ×2 (08:00→12:00)
[2018-06-02] MEDS: CLOPIDOGREL 75 MG TABLET PO SCH (09:00)
[2018-06-02] MEDS: ASPIRIN 81 MG CHEWABLE TABLET PO SCH (09:00)
[2018-06-02] MEDS: GABAPENTIN 100 MG CAP PO SCH ×2 (09:00→13:56)
[2018-06-02] MEDS ORDERED: predniSONE 20 MG TAB PO SCH (09:00)
[2018-06-02] MEDS: ALLOPURINOL 100 MG TAB PO SCH (09:00)
[2018-06-02] MEDS: VITAMIN D 1000 UNIT TAB PO SCH (09:00)
[2018-06-02] MEDS: DULERA 200/5 (MOMETASONE/FORMOTEROL) INHALER IH SCH (09:00)
[2018-06-02] MEDS: PANTOPRAZOLE 40MG TABLET PO SCH (09:00)
[2018-06-02] MEDS: TIOTROPIUM 5 SPRAYS/INHALER IH SCH (09:00)
[2018-06-02] MEDS: AMIODARONE HCL 200 MG TAB PO SCH (09:00)
[2018-06-02] MEDS: FERROUS SULFATE 325 MG TAB PO SCH (09:00)
[2018-06-02] MEDS: FLUTICASONE 50MCG NASAL SPRAY NAS SCH (09:00)
[2018-06-02] MEDS: HEPARIN 5000 UNIT/ML 1 ML VIAL SQ SCH (09:00)
[2018-06-02] MEDS: EPOETIN ALFA 4000 UNIT/1 ML VIAL SQ SCH (09:10)
[2018-06-02 09:48] VITALS: BP 122/56; TEMP 97
[2018-06-02] MEDS: ALBUMIN HUMAN 25% 50 ML IV SCH (10:28)
[2018-06-02] MEDS: IPRATROPIUM BROM 0.5MG/2.5ML NEB PRN (10:53)
[2018-06-02] MEDS: ALBUTEROL 2.5 MG/3 ML NEB SOL NEB PRN (10:53)
[2018-06-02 11:25] VITALS: O2SAT 100
--- NOTE | 2018-06-02 15:25 | P.PN ---
Subjective Date of Service: 06/02/18 Chief Complaint: cough and SOB Subjective: Improving ESRD admitted for cough and SOB improving on inhalers , steroids and Abx HD TODAY , midiOdRINE before HD can be discharged from nephrology point of view Physical Examination - Vital Signs Temperature: 97.0 F Blood Pressure: 122/56 Pulse: 67 Respirations: 18 Pulse Ox (%): 100 - Physical Exam General: Oriented x3 HEENT: Atraumatic Neck: Supple, JVD not distended, Without JVD or thyroid abnormality Respiratory: Clear to auscultation bilaterally, Normal air movement Cardiovascular: No edema, Normal pulses, Regular rate/rhythm, Normal S1 S2, No rubs, No murmurs Gastrointestinal: Normal bowel sounds, Soft and benign Assessment And Plan - Current Problems (Diagnosis) (1) Acute exacerbation of chronic obstructive airways disease Onset Date: 07/02/15 Current Visit: No Status: Acute (2) Anemia in chronic kidney disease (CKD) Onset Date: 01/22/15 Current Visit: No Status: Chronic (3) End stage renal failure on dialysis Current Visit: No Status: Chronic - Plan ESRD on HD MWF HD today renal diet renal dose meds midodrine on HD days cleared for discharge from nephrology point of view Anemia will start on JAIRO anemia W/u MBD Cont renvela Acute bronchitis/COPD exacerbation Abx and steroids CXR no infiltrate
--- NOTE | 2018-06-04 06:29 | DS ---
Date of Discharge: 06/02/2018 Disposition: Patient was discharged to go home. Physical Examination: HEENT: Unremarkable. Lungs: Clear to auscultation. Heart: Sounds normal. Abdomen: Soft, bowel sounds normal. No guarding, rigidity, tenderness, or distention. Extremities: Bilateral leg edema unchanged. Discharge Medications And Instructions: 1. Continue all prior home medications. 2. Trelegy 1 puff daily. Patient came to office to pick up and delivery driver samples upon discharge. 3. Prednisone 10 mg, patient to take 2 tablets daily for 4 days, then 1 tablet daily for 4 days, then 1/2 tablet daily for 4 days, then stop. 4. Cefuroxime 250 mg twice a day for 5 days. Hospital Course: A 78-year-old male patient admitted to the hospital with cough , congestion, shortness of breath. Please see dictated H and P for more information. After patient was evaluated in the emergency room, he was admitted to the hospital with a concern about possibility of pneumonia, but radiologist did not think the patient had pneumonia. He was given oxygen nebulizer treatment, IV antibiotic, IV steroid. Nephrology consultation was obtained for dialysis needs and patient received dialysis per metal base blocker's help. Overall, his condition improved. His cough, congestion, shortness of breath have improved significantly. The patient was discharged to go home in stable condition with above-mentioned medication and instruction. I have sent his prescription for inhaler to his mail order pharmacy and I will see him at office as per instruction. Final Diagnoses: 1. Acute exacerbation of chronic obstructive pulmonary disease. 2. Acute bronchitis. 3. End-stage renal disease, on hemodialysis. 4. Leg edema. 5. Anemia due to chronic kidney disease. 6. Coronary artery disease. 7. Diabetes mellitus. 8. Hypertension. 9. Chronic systolic congestive heart failure. 10. Diverticulosis. 11. Gastroesophageal reflux disease. 12. Allergic rhinitis. ODESSA/MODL Voice ID: [id number] Report ID: [id number]
[2018-06-06 04:40] LABS: HBsAG Nonreactive (Nonreactive)
== END 2018-06-02 15:36 | disposition home or self-care (01) | DRG 190 ==
LOC: ER 22:47 → ERHOLD 05-29 00:51 → 4TH 05-29 01:50
PROVIDERS: ADMIT Internal Medicine; ATTEND Internal Medicine
PROC: 5A1D70Z Performance of Urinary Filtration, Intermittent, Less than 6 Hours Per Day (ICD-10-PCS; principal; 2018-05-31)
PROC: 5A1D70Z Performance of Urinary Filtration, Intermittent, Less than 6 Hours Per Day (ICD-10-PCS; 2018-06-01)
PROC: 5A1D70Z Performance of Urinary Filtration, Intermittent, Less than 6 Hours Per Day (ICD-10-PCS; 2018-06-02)
DX: J44.1 Chronic obstructive pulmonary disease with (acute) exacerbation (principal); N18.6 End stage renal disease; I13.2 Hypertensive heart and chronic kidney disease with heart failure and with stage 5 chronic kidney disease, or end stage renal disease; I50.22 Chronic systolic (congestive) heart failure; J20.9 Acute bronchitis, unspecified; J44.0 Chronic obstructive pulmonary disease with (acute) lower respiratory infection; R60.0 Localized edema; D63.1 Anemia in chronic kidney disease; I25.10 Atherosclerotic heart disease of native coronary artery without angina pectoris; K57.90 Diverticulosis of intestine, part unspecified, without perforation or abscess without bleeding; E11.22 Type 2 diabetes mellitus with diabetic chronic kidney disease; Z99.2 Dependence on renal dialysis; K21.9 Gastro-esophageal reflux disease without esophagitis; J30.9 Allergic rhinitis, unspecified; Z95.810 Presence of automatic (implantable) cardiac defibrillator; Z88.8 Allergy status to other drugs, medicaments and biological substances; Z88.5 Allergy status to narcotic agent; Z91.013 Allergy to seafood; N25.0 Renal osteodystrophy; Z85.46 Personal history of malignant neoplasm of prostate; I95.3 Hypotension of hemodialysis
CPT/HCPCS: 36415; 71045; 80048; 80076; 82550; 82553; 82607; 82728; 82746; 82805; 82962; 83540; 83690; 83735; 83880; 84466; 84484; 85025; 85610; 85730; 86317; 86706; 87040; 87340; 90935; 93005; 93970; 94760; 99285; G0257; J0692; J0696; J1644; J2405; J2916; J2920; J3370; J7512; J7606; P9047; Q4081

== ENCOUNTER 2018-06-18 20:33 | Emergency (ER) | payer OTHER, MEDICARE ==
--- OUTSIDE RECORDS SUMMARY | 2018-06-18 20:36 | XMS REPORT | Clinical Summary ---
:1940 Author Organization [facility] Address [address] [place] [address] Care Team Providers Name Role Phone Anmol Salazar MD Primary Care Provider Allergies Active Allergy Reactions Severity Noted Date Comments Iodine Itching 07/30/2017 Shrimp Itching 07/30/2017 Medications Medication Sig Dispensed Refills Start Date End Date Status ALLOPURINOL ORAL Take 200 mg 0 Active by mouth daily. ASCORBIC ACID, Take 1 tablet 0 Active VITAMIN C, ORAL by mouth daily. cholecalciferol, Take 2,000 0 Active vitamin D3, (VITAMIN Units by D3) 2,000 unit mouth daily. capsule capsule fluticasone 1 spray by 0 Active (FLONASE) 50 Each Nare mcg/actuation nasal route daily. spray clopidogrel (PLAVIX) Take 1 tablet 90 tablet 3 03/25/2017 Active 75 mg tablet (75 mg total) by mouth daily. ipratropium 2 sprays into 0 Active (ATROVENT) 0.03 % each nostril nasal spray every 12 (twelve) hours. loratadine Take 10 mg by 0 Active (CLARITIN) 10 mg mouth daily. tablet nitroglycerin Place 0.4 mg 0 Active (NITROSTAT) 0.4 MG under the SL tablet tongue every 5 (five) minutes as needed for chest pain. gabapentin Take 100 mg 0 Active (NEURONTIN) 100 mg by mouth 3 capsule (three) times a day. midodrine Take 2.5 mg 0 Active (PROAMATINE) 2.5 MG by mouth 3 tablet (three) times a week. amIODarone Take 100 mg 0 Active (PACERONE) 200 MG by mouth tablet daily. omeprazole Take 20 mg by 0 Active (PriLOSEC) 20 MG mouth 2 (two) capsule times a day. sevelamer (RENVELA) Take 1,600 mg 0 Active 800 mg tablet by mouth 3 (three) times a day with meals. aspirin (ECOTRIN) 81 Take 162 mg 0 Active MG enteric coated by mouth tablet daily. predniSONE 0 04/18/2018 Active (DELTASONE) 10 mg tablet OMEPRAZOLE ORAL Take 1 0 07/30/2017 Discontinued capsule by mouth 2 (two) times a day. aspirin (ECOTRIN) 81 Take 81 mg by 0 07/30/2017 Discontinued MG enteric coated mouth daily. tablet ferrous sulfate, as Take 65 mg by 0 07/21/2017 Discontinued mg of FE, mouth daily. (DERRELL-IN-SUSAN) 15 mg iron (75 mg)/mL drops CALCIUM CARBONATE Take 2 0 07/21/2017 Discontinued (TUMS ORAL) tablets by mouth 3 (three) times a day. albuterol sulfate, daily. 0 07/30/2017 Discontinued bulk, powder ibuprofen Take 200 mg 0 07/21/2017 Discontinued (ADVIL,MOTRIN) 200 by mouth 4 MG tablet (four) times a day. gabapentin TK 1 C PO TID 6 06/05/2017 07/30/2017 Discontinued (NEURONTIN) 100 mg capsule amIODarone Take 200 mg 0 07/30/2017 Discontinued (PACERONE) 200 MG by mouth tablet daily. FAMOTIDINE ORAL Take by mouth 0 07/30/2017 Discontinued daily. SEVELAMER HCL ORAL Take by 0 07/30/2017 Discontinued mouth. zinc acetate 50 mg Take by 0 07/30/2017 Discontinued (zinc) capsule mouth. Active Problems Problem Noted Date Unstable angina 07/22/2017 Overview: Added automatically from request for surgery [id number] Coronary artery disease involving otoe-missouria coronary artery of oto[place]ou[place] heart 07/22 without angina pectoris Overview: Added automatically from request for surgery [id number] Chest pain 07/22/2017 Overview: Added automatically from request for surgery [id number] Angina pectoris 07/21/2017 Coronary artery disease of [place] artery of o[place] heart with stable 2017 angina pectoris Automatic implantable cardioverter-defibrillator in situ 03/10/2017 PAD (peripheral artery disease) 08/05/2016 Cardiomyopathy 08/05/2016 Systolic congestive heart failure 08/05/2016 Encounters Date Type Specialty Care Team Description 04/27/2018 Office Visit Cardiology Ascencion Quintero Chest pain, unspecified type (Primary Dx); MD Susan Cardiomyopathy, unspecified type (HCC) 09/08/2017 Office Visit Cardiology Ascencion Quintero Cardiomyopathy, unspecified type (Primary Dx); MD Susan Coronary artery disease involving otoe-missouria coronary artery of otoe-[place]ou[place] heart without angina pectoris 07/30/2017 Surgery Procedural Ascencion Quintero Cv selective Cardiology MD Susan coronary angiography [96873 (CPT)] 07/30/2017 Hospital Encounter Procedural Ascencion Quintero PAD (peripheral artery disease); Cardiology MD Susan Coronary artery disease involving otoe-missou[place] coronary artery of o[place]ou[place] heart without angina pectoris; Chest pain, unspecified type; Unstable angina 07/22/2017 Orders Only Cardiology Justin Ojeda MA PAD (peripheral artery disease) (Primary Dx); Coronary artery disease involving otoe-missou[place] coronary artery of o[place]ou[place] heart without angina pectoris; Chest pain, unspecified type; Unstable angina 07/21/2017 Office Visit Cardiology Ascencion Quintero Angina pectoris (Primary Dx ); MD Susan Systolic congestive heart failure, unspecified congestive heart failure chronicity; PAD (peripheral artery disease); Coronary artery disease of otoe-missou[place] artery of o[place]ou[place] heart with stable angina pectoris after 06/17/2017 Family History Relation Name Status Comments Father Mother Social History Tobacco Use Types Packs/Day Years Used Date Former Smoker Smokeless Tobacco: Never Used Tobacco Cessation: Counseling Given: No Alcohol Use Drinks/Week oz/Week Comments No Sex Assigned at Date Recorded Not on file Job Start Date Occupation Industry Not on file Not on file Not on file Travel History Travel Start Travel End No recent travel history available. Last Filed Vital Signs Vital Sign Reading Time Taken Blood Pressure 108/53 04/27/2018 11:28 AM STILL PUMP OPERATOR Pulse 94 04/27/2018 11:28 AM STILL PUMP OPERATOR Temperature 36.4 C (97.6 F) 07/30/2017 11:00 AM CDT Respiratory Rate 20 07/30/2017 4:15 PM CDT Oxygen Saturation 98% 07/30/2017 3:45 PM CDT Inhaled Oxygen Concentration - - Weight 138 kg (305 lb) 04/27/2018 11:28 AM STILL PUMP OPERATOR Height 180.3 cm (5' 11") 04/27/2018 11:28 AM STILL PUMP OPERATOR Body Mass Index 42.54 04/27/2018 11:28 AM STILL PUMP OPERATOR Plan of Treatment Date Type Specialty Care Team Description 10/26/2018 Office Visit Cardiology Ascencion Quintero MD [address] [address] Health Maintenance Due Date Last Done Comments SHINGLES VACCINES (#1) 1989 65+ PNEUMOCOCCAL VACCINE (1 of 2 - PCV13) 01/17/2004 PNEUMOCOCCAL POLYSACCHARIDE VACCINE AGE 65 AND OVER 01/17/2004 INFLUENZA VACCINE 11/11/2017 Implants Implanted Type Area [employer] Device Shelf Model / Identifier Expiration Serial / Date Lot Device Vasclr Clsr Vasoactive Intstnl Peptd 8fr Angio-Seal - [id number] Cardiovascular N/A: 06/10/2017 [id number] / Implanted: 08/07/2016 (Quantity not on file) Implants N/A / [id number] Stent Bili Protege Everflex Slf-Xpndbl 120cm [id number] - [id number] Coronary Stents N/A: [employer] 05/03/2017 [id number] 100 120 / Implanted: 08/07/2016 (Quantity not on file) N/A / [id number] Procedures Procedure Name Priority Date/Time Associated Comments Diagnosis ECHOCARDIOGRAM 2D Routine 05/03/2018 5:01 Cardiomyopathy, Results for this COMPLETE W MMODE PM STILL PUMP OPERATOR unspecified type procedure are in SPECTRAL COLOR DOPPLER (HCC) the results (25129) Chest pain, section. unspecified type ECG 12-LEAD Routine 04/27/2018 11:33 Cardiomyopathy, Results for this AM STILL PUMP OPERATOR unspecified type procedure are in (HCC) the results section. CV SELECTIVE CORONARY Routine 07/30/2017 2:17 Unstable angina Results for this ANGIOGRAPHY PM CDT PAD (peripheral procedure are in artery disease) the results Coronary artery section. disease involving otoe-missouria coronary artery of otoe-missou[place] heart without angina pectoris Chest pain, unspecified type PROTHROMBIN TIME WITH STAT 07/30/2017 11:50 Results for this INR AM CDT procedure are in the results section. CK-MB STAT 07/30/2017 11:39 Results for this AM CDT procedure are in the results section. ZZESTIMATED GFR STAT 07/30/2017 11:39 Results for this AM CDT procedure are in the results section. BASIC METABOLIC PANEL STAT 07/30/2017 11:39 Results for this AM CDT procedure are in the results section. COPY RECEIVED FROM: Routine 07/27/2017 11:55 Results for this AM CDT procedure are in the results section. PARTIAL THROMBOPLASTIN Routine 07/27/2017 11:55 Results for this TIME (PTT) AM CDT procedure are in the results section. COPY(IES) SENT TO: Routine 07/27/2017 11:55 Results for this AM CDT procedure are in the results section. CBC WITH PLATELET AND Routine 07/27/2017 11:55 PAD (peripheral Results for this DIFFERENTIAL AM CDT artery disease) procedure are in the results section. PROTHROMBIN TIME WITH Routine 07/27/2017 11:55 PAD (peripheral Results for this INR AM CDT artery disease) procedure are in the results section. COMPREHENSIVE METABOLIC Routine 07/27/2017 11:55 PAD (peripheral Results for this PANEL AM CDT artery disease) procedure are in the results section. ECHOCARDIOGRAM 2D Routine 07/21/2017 11:22 Results for this COMPLETE W MMODE AM CDT procedure are in SPECTRAL COLOR DOPPLER the results (93966) section. ECG 12-LEAD Routine 07/21/2017 9:06 Systolic congestive Results for this AM CDT heart failure, procedure are in unspecified the results congestive heart section. failure chronicity after 06/17/2017 Results Echocardiogram complete w contrast and 3D if needed (05/03/2018 5:01 PM STILL PUMP OPERATOR) Narrative Performed At [facility] Echocardiography Report Pat.Name:DILLON AGRIBAY Pat.ID:[id number] .Date: 05/03/2018 Refer.MD:ASCENCION QUINTERO MD Exam Time: 3:40:00 PMStudy Type:Routine Echo Height:71inWeight: 305lb BSA: 2.53 m2 DOBAge:1940,78Y Sex: MALEBP:108/53 HR:70 bpm Sonogrphr: EZRA Costello FASE Pat. Stat.:OutpatientRoom:[place] Study Status:Final Echo Event ID:[id number] Order ID:[id number] Reason for Study:Cardiomyopathy with no status change -routine (<1yr) History / Clinical:Congestive Heart Failure, Coronary Artery Disease Procedures:2D Echo, Colorflow Doppler Race:B SUMMARY: LV size is moderately enlarged. Global hypokinesis. Estimated EF is 30-34%. RV systolic function is normal. LV filling pressure is elevated, mean PCWP is 15-20mmHg. Estimated PA systolic pressure is 45 mmHg, assuming a mean RAP of 5 mmHg. FINDINGS: LV: LV size is moderately enlarged. LV EF is moderately to severelydepressed. Global hypokinesis. Estimated EF is 30-34%. RV: RV size is normal. RV systolic function is normal. LA: LA volume is mildly enlarged. RA: RA size is normal. AO: Aortic root diameter is normal. NIDIA: No pericardial effusion. AV: Moderate thickening and calcification of AV leaflets. A traceof aortic regurgitation. MV: Focal thickening of mitral leaflets. Mild mitral annular calcification. PV: No structural PV abnormalities noted. TV: No structural TV abnormalities noted. A trace of tricuspid regurgitation Moise: LV relaxation is impaired. LV filling pressure is elevated, meanPCWP is 15-20mmHg. Other:Estimated PA systolic pressure is 45 mmHg, assuming a mean RAPof 5 mmHg. MEASUREMENTS: 2D Parasternal Long [place] LVOT 2.2 cmLA Ds4.9 cm LVIDd6 cmIndex2.4 cm/m Ao An1.9 cm LVIDs5.1 cmAo Rtd 3.4 cm Index1.4 cm/m LV%fs 13.9 % LV Gsri235.8 g(122-174) IVSd 1.3 cmLVM Dbkfl841.4 g/m2 LVPWd1.3 cmRWT0.5 LA Sng Plane LA Area 26.3 cm2(8.8-23.4) LA Vol93.3 ml Index36.9 ml/m LA LngAx 6.4 cm DOPPLER LVOT For Flow LVOT Area3.8 cm2 LVOT SV 80.5 ml LVOTpkVel 97.1 cm/sHR74.2 bpm LVOTpkPG 3.8 mmHgLVOT CO6 l/min LVOTmnPG 2.2 mmHgLVOT CI2.4 l/m/m2 LVOT TVI21.2 cm Signed 05/04/2018 02:44 PM Ayo Polk M.D. Procedure Note Interface, Radiology Results In - 05/04/2018 2:44 PM STILL PUMP OPERATOR [facility] Echocardiography Report Pat.Name: DILLON GARIBAY Pat.ID: [id number] .Date: 05/03/2018 Refer.MD: ASCENCION QUINTERO MD Exam Time: 3:40:00 PM Study Type:Routine Echo Height: 71in Weight: 305lb BSA: 2.53 m2 Age: 1001/16/1940,78Y Sex: MALE BP: 108/53 HR: 70 bpm Sonogrphr: EZRA Costello FASE Pat. Stat.:Outpatient Room: [place] Study Status:Final Echo Event ID:[id number] Order ID: [id number] Reason for Study:Cardiomyopathy with no status change -routine (<1yr) History / Clinical:Congestive Heart Failure, Coronary Artery Disease Procedures:2D Echo, Colorflow Doppler Race: B SUMMARY: LV size is moderately enlarged. Global hypokinesis. Estimated EF is 30-34%. RV systolic function is normal. LV filling pressure is elevated, mean PCWP is 15-20mmHg. Estimated PA systolic pressure is 45 mmHg, assuming a mean RAP of 5 mmHg. FINDINGS: LV: LV size is moderately enlarged. LV EF is moderately to severely depressed. Global hypokinesis. Estimated EF is 30-34%. RV: RV size is normal. RV systolic function is normal. LA: LA volume is mildly enlarged. RA: RA size is normal. AO: Aortic root diameter is normal. NIDIA: No pericardial effusion. AV: Moderate thickening and calcification of AV leaflets. A trace of aortic regurgitation. MV: Focal thickening of mitral leaflets. Mild mitral annular calcification. PV: No structural PV abnormalities noted. TV: No structural TV abnormalities noted. A trace of tricuspid regurgitation Moise: LV relaxation is impaired. LV filling pressure is elevated, mean PCWP is 15-20mmHg. Other: Estimated PA systolic pressure is 45 mmHg, assuming a mean RAP of 5 mmHg. MEASUREMENTS: 2D Parasternal Long [place] LVOT 2.2 cm LA Ds 4.9 cm LVIDd 6 cm Index 2.4 cm/m Ao An 1.9 cm LVIDs 5.1 cm Ao Rtd 3.4 cm Index 1.4 cm/m LV%fs 13.9 % LV Mass 357.8 g (122-174) IVSd 1.3 cm LVM Index 141.4 g/m2 LVPWd 1.3 cm RWT 0.5 LA Sng Plane LA Area 26.3 cm2 (8.8-23.4) LA Vol 93.3 ml Index 36.9 ml/m LA LngAx 6.4 cm DOPPLER LVOT For Flow LVOT Area 3.8 cm2 LVOT SV 80.5 ml LVOTpkVel 97.1 cm/s HR 74.2 bpm LVOTpkPG 3.8 mmHg LVOT CO 6 l/min LVOTmnPG 2.2 mmHg LVOT CI 2.4 l/m/m2 LVOT TVI 21.2 cm Signed 05/04/2018 02:44 PM Ayo Polk M.D. Performing Organization Address [facility] Phone Number [facility] [address] [place] [address] ECG 12 lead (04/27/2018 11:33 AM STILL PUMP OPERATOR)Only the most recent of2 resultswithin the time period is included. Ventricular rate 87 [facility] MUSE Atrial rate 87 [facility] MUSE OR interval 164 [facility] MUSE QRSD interval 154 [facility] MUSE QT interval 444 [facility] MUSE QTC interval 534 [facility] MUSE P axis 1 60 [facility] MUSE QRS axis 1 -16 [facility] MUSE T wave axis -73 [facility] MUSE EKG impression Atrial-sensed ventricular-paced [facility] MUSE rhythm-Abnormal ECG-In automated comparison with ECG of 21-JUL-2017 09:06,-Electronic ventricular pacemaker has replaced Sinus rhythm- Narrative Performed At Performing Organization Address [facility] Phone Number [facility] MUSE [address] [place] [address] Cv mobile home laborer procedure (07/30/2017 2:17 PM CDT) Narrative Performed At 1. Non obstructive CAD [facility] 2. 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 Prothrombin time 14.5 12.0 - 15.0 sec [facility] DEPARTMENT OF PATHOLOGY AND GENOMIC MEDICINE INR 1.1 [facility] DEPARTMENT OF Comment: PATHOLOGY AND GENOMIC The International Normalized Ratio (INR) is a therapeutic MEDICINE monitoring tool for patients who are stable on oral anticoagulant therapy. An INR of 2.0-3.0 is suggested for deep vein thrombosis/pulmonary embolism. Specimen Blood Performing Organization Address [facility] Phone Number [facility] DEPARTMENT OF PATHOLOGY AND [address] [place] [phone] [employer] MEDICINE Estimated GFR (07/30/2017 11:39 AM CDT) GFR Non Af Amer 8 (A) mL/min/1.73 m2 [facility] DEPARTMENT OF PATHOLOGY AND GENOMIC MEDICINE GFR Af Amer 10 (A) mL/min/1.73 m2 [facility] DEPARTMENT OF Comment: PATHOLOGY AND GENOMIC Chronic kidney disease: <60 mL/min/1.73m2 MEDICINE Kidney failure: <15 mL/min/1.73m2 The estimated GFR is calculated from the IDMS-traceable Modification of Diet in Renal Disease Equation. The accuracy of the calculation is poor when the creatinine is normal. Calculated values >90 mL/min/1.73m2 are not reported. This equation has not been validated in children (<18 years), women, the elderly (>70 years), or ethnic groups other than Caucasians and Americans. Specimen Plasma specimen Performing Organization Address [facility] Phone Number [facility] DEPARTMENT OF PATHOLOGY AND [address] [place] [address] [employer] CK-MB (07/30/2017 11:39 AM CDT) CK-MB 1.3 1.0 - 10.4 ng/mL [facility] DEPARTMENT OF PATHOLOGY Comment: AND Adstrix As of Aug 11 2017, this test will no longer be available in [facility]. Specimen Plasma specimen Narrative Performed At [facility] to perform testing, specimen is [facility] DEPARTMENT OF PATHOLOGY AND GENOMIC HEMOLYZED.Rec[employer]lect MEDICINE requested for K (tests).KENDALL MIRELES/MIKA (name/location) notified by PR1 (tech ID) at07/30/201712:35(date/time). Credit issued. Performing Organization Address City/State/Zipcode Phone Number [facility] DEPARTMENT OF PATHOLOGY AND [address] [place], [place] [phone] Adstrix Basic metabolic panel (07/30/2017 11:39 AM CDT) Sodium 136 135 - 148 mEq/L [facility] DEPARTMENT OF PATHOLOGY AND GENOMIC MEDICINE Potassium SEE COMMENT 3.5 - 5.0 mEq/L [facility] DEPARTMENT OF PATHOLOGY Comment: AND Adstrix Footnote--------- HEMOLYZED Chloride 94 (L) 98 - 112 mEq/L [facility] DEPARTMENT OF PATHOLOGY AND GENOMIC MEDICINE CO2 28 24 - 31 mEq/L [facility] DEPARTMENT OF PATHOLOGY AND GENOMIC MEDICINE Anion gap 14 7 - 15 mEq/L [facility] DEPARTMENT OF PATHOLOGY Comment: AND [facility] Starting from July , anion gap calculation no longer incorporates potassium. Please note the change. BUN 20 8 - 23 mg/dL [facility] DEPARTMENT OF PATHOLOGY AND GENOMIC MEDICINE Creatinine 6.4 (H) 0.7 - 1.2 mg/dL [facility] DEPARTMENT OF PATHOLOGY AND GENOMIC MEDICINE Glucose 108 (H) 65 - 99 mg/dL [facility] DEPARTMENT OF PATHOLOGY AND GENOMIC MEDICINE Calcium 9.4 8.8 - 10.2 mg/dL [facility] DEPARTMENT OF PATHOLOGY AND GENOMIC MEDICINE Specimen Plasma specimen Performing Organization Address City/[facility] Phone Number [facility] DEPARTMENT OF PATHOLOGY AND [address] [place] [address] [facility] COPY RECEIVED FROM: (07/27/2017 11:55 AM CDT) Copy received from: [facility] Comment: [address] [facility] [address] [place] [address] Narrative Performed At FASTING:NO [facility] FASTING: NO Performing Organization Address City/[facility] Phone Number [facility] COPY(IES) SENT TO: (07/27/2017 11:55 AM CDT) Copies/mL [facility] Comment: [address]NA [address] [facility] [address] [place] [address] Narrative Performed At FASTING:NO [facility] FASTING: NO Performing Organization Address [facility] Phone Number [facility] Partial thromboplastin time, activated (07/27/2017 11:55 AM CDT) PTT 33 22 - 34 sec [facility] [place] [facility] Comment: This test has not been validated for monitoring unfractionated heparin therapy. For testing that is validated for this type of therapy, please refer to the Heparin Anti-Xa assay (test code 68020). For additional information, please refer to http://education.Startup Threads/faq/MOA369 (This link is being provided for informational/educational purposes only.) Narrative Performed At FASTING:NO [facility] FASTING: NO Resulting Agency Comment Performing Organization Information: Site ID: [id number] Name: [facility] Address: [address] [place] [phone] Director: Lea Hanna Performing Organization Address City/[facility]/Zipcode Phone Number [employer] [address] [address] CBC with platelet and differential (07/27/2017 11:55 AM CDT) WBC 5.4 3.8 - 10.8 Thousand/uL [facility] [place] RBC 3.07 (L) 4.20 - 5.80 Million/uL [facility] [facility] HGB 9.6 (L) 13.2 - 17.1 g/dL [facility] [place] [facility] HCT 29.6 (L) 38.5 - 50.0 % [facility] [place] [facility] MCV 96.4 80.0 - 100.0 fL [facility] [place] [facility] MCH 31.3 27.0 - 33.0 pg [facility] [place] MCHC 32.4 32.0 - 36.0 g/dL [facility] [place] [facility] RDW 15.9 (H) 11.0 - 15.0 % [facility] [place] Platelet count 161 140 - 400 Thousand/uL [facility] [place] [facility] MPV 11.8 7.5 - 12.5 fL [facility] [place] Neutrophils, absolute 3,218 1,500 - 7,800 cells/uL [facility] [place] Lymphocytes, absolute 1,161 850 - 3,900 cells/uL [facility] [place] Monocytes, absolute 562 200 - 950 cells/uL [facility] [place] Eosinophils, absolute 400 15 - 500 cells/uL [facility] [place] Basophils, absolute 59 0 - 200 cells/uL [facility] [place] Neutrophils 59.6 % [facility] [place] Lymphocytes 21.5 % [facility] [place] Monocytes 10.4 % [facility] [place] Eosinophils 7.4 % [facility] [place] Basophils + RC 1.1 % [facility] [place] Specimen Blood Narrative Performed At FASTING:NO [facility] FASTING: NO Resulting Agency Comment Performing Organization Information: Site ID: [id number] Name: [facility] Address: [address] [place] [address] Director: Lea Hanna Performing Organization Address City/State/Zipcode Phone Number [employer] [address] [address] Comprehensive metabolic panel (07/27/2017 11:55 AM CDT) Glucose 168 (H) 65 - 139 mg/dL [facility] Comment: [place] Non-fasting reference interval BUN, whole blood 11 7 - 25 mg/dL [facility] Creatinine 4.59 (H) 0.70 - 1.18 [facility] Comment: mg/dL [place] For patients >49 years of age, the reference limit for Creatinine is approximately 13% higher for people identified as -Luxembourger. EGFR Non-Afr. Luxembourger 11 (L) > OR=60 [facility] mL/min/1.73m2 [place] EGFR 13 (L) > OR=60 [facility] mL/min/1.73m2 [place] BUN/creatinine ratio 2 (L) 6 - 22 (calc) [facility] [place] Sodium 138 135 - 146 mmol/L [facility] [place] Potassium 3.9 3.5 - 5.3 mmol/L [facility] [place] Chloride 99 98 - 110 mmol/L [facility] [place] [facility] CO2 29 20 - 31 mmol/L [facility] [place] Calcium 9.2 8.6 - 10.3 mg/dL [facility] [place] Protein 7.3 6.1 - 8.1 g/dL [facility] [place] Albumin, S 4.1 3.6 - 5.1 g/dL [facility] Globulin, total 3.2 1.9 - 3.7 g/dL [facility] (calc) [place] Albumin/globulin ratio 1.3 1.0 - 2.5 (calc) [facility] Total bilirubin 0.4 0.2 - 1.2 mg/dL [facility] Alkaline phosphatase 135 (H) 40 - 115 U/L [facility] [place] AST 11 10 - 35 U/L [facility] ALT 7 (L) 9 - 46 U/L [facility] [place] Specimen Blood Narrative Performed At FASTING:NO [facility] FASTING: NO Resulting Agency Comment Performing Organization Information: Site ID: [id number] Name: [facility] Address: [address] [place] [phone] Director: Lea Hanna Performing Organization Address City/State/Zipcode Phone Number [place] [phone] Echocardiogram complete w contrast and 3D if needed (07/21/2017 11:22 AM CDT) Narrative Performed At [facility] Echocardiography Report Pat.Name:DILLON GARIBAY Pat.ID:[id number] St.Date: 07/21/2017 Refer.MD:ASCENCION QUINTERO MD Exam Time: 11:56:00 AM Study Type:Routine Echo Height:71inWeight: 307lb BSA: 2.53 m2 DOBAge:1940,77Y Sex: MALEBP:117/58 HR:84 bpmSonogrphr: La Kumar RDCS, RVT Pat. Stat.:OutpatientRoom:[place] Study Status:Final Echo Event ID:[id number] Order ID:[id number] Reason for Study:Systolic congestive heart failure, coronary artery disease History / Clinical:Congestive Heart Failure, Coronary Artery Disease Procedures:2D Echo, Colorflow Doppler Race:B FINDINGS: LV: LV size is mildly enlarged. There is moderate eccentric LV hypertrophy.LV EF is moderately to severely depressed. Overallwall motion is hypokinetic. Estimated EF is 30-34%. RV: RV size is normal. A pacemaker wire is seen in the RV. RV systolicfunction is moderately depressed. LA: LA volume is mildly enlarged. RA: RA volume is normal. AO: Aortic root diameter is normal. NIDIA: No pericardial effusion. AV: Moderate thickening and calcification of AV leaflets. Moderateto severe aortic valve stenosis. MV: Dilated annulus with poor coaptation. Mild to moderate mitralregurgitation. Etiology of MR is secondary to LV dysfunctionand remodeling. PV: No structural PV abnormalities noted. TV: No structural TV abnormalities noted. A trace of tricuspid regurgitation Moise: LV relaxation is impaired. LV filling pressure is elevated. Other:Suboptimal/insufficient TR jet. Estimated PA systolic pressureis at least 35-40 mmHg, assuming a mean RAP of 10 mmHg. MEASUREMENTS: 2D Parasternal Long [place] LVOT 2.1 cmLA Ds5 cm LVIDd6 cmIndex2.4 cm/m Ao An2.2 cm LVIDs5.1 cmAo Rtd 2.6 cm Index1 cm/m LV%fs 16 % LV Utzm209.6 g(122-174) IVSd 1.4 cmRWT0.5 LVPWd1.5 cm LA Sng Plane LA Area 22.5 cm2(8.8-23.4) LA Vol74 ml Index29.3 ml/m LA LngAx 5.7 cm DOPPLER AV For Flow/Valve Assess AV pkVel 280 cm/s (100-170) AV ET330 msec AV mnVel 194.9 cm/Mariah AC/ET 0.4 AV pkPG 31.4 mmHgAV TVI64.3 cm AV Mean G 18.3 mmHgAVpkAcRt 65099.2 cm/s2 AV AC140 msec (83-118) AV Area-Cont. Eq. LVOT Area3.5 cm2 AV TVI64.3 cm LVOT TVI17.3 cmAV Area0.9 cm2(3-5) AV SV 59.8 ml Signed 07/21/2017 3:58:00 PM Gloria Lira M.D. Procedure Note Interface, Radiology Results In - 08/11/2017 11:05 AM CDT [facility] Echocardiography Report Pat.Name: DILLON GARIBAY Pat.ID: [id number] .Date: 07/21/2017 Refer.MD: ASCENCION QUINTERO MD Exam Time: 11:56:00 AM Study Type:Routine Echo Height: 71in Weight: 307lb BSA: 2.53 m2 Age: 1001/16/1940,77Y Sex: MALE BP: 117/58 HR: 84 bpm Sonogrphr: La Kumar RDCS, RVT Pat. Stat.:Outpatient Room: [place] Study Status:Final Echo Event ID:[id number] Order ID: [id number] Reason for Study:Systolic congestive heart failure, coronary artery disease History / Clinical:Congestive Heart Failure, Coronary Artery Disease Procedures:2D Echo, Colorflow Doppler Race: B FINDINGS: LV: LV size is mildly enlarged. There is moderate eccentric LV hypertrophy. LV EF is moderately to severely depressed. Overall wall motion is hypokinetic. Estimated EF is 30-34%. RV: RV size is normal. A pacemaker wire is seen in the RV. RV systolic function is moderately depressed. LA: LA volume is mildly enlarged. RA: RA volume is normal. AO: Aortic root diameter is normal. NIDIA: No pericardial effusion. AV: Moderate thickening and calcification of AV leaflets. Moderate to severe aortic valve stenosis. MV: Dilated annulus with poor coaptation. Mild to moderate mitral regurgitation. Etiology of MR is secondary to LV dysfunction and remodeling. PV: No structural PV abnormalities noted. TV: No structural TV abnormalities noted. A trace of tricuspid regurgitation Moise: LV relaxation is impaired. LV filling pressure is elevated. Other: Suboptimal/insufficient TR jet. Estimated PA systolic pressure is at least 35-40 mmHg, assuming a mean RAP of 10 mmHg. MEASUREMENTS: 2D Parasternal Long [place] LVOT 2.1 cm LA Ds 5 cm LVIDd 6 cm Index 2.4 cm/m Ao An 2.2 cm LVIDs 5.1 cm Ao Rtd 2.6 cm Index 1 cm/m LV%fs 16 % LV Mass 409.6 g (122-174) IVSd 1.4 cm RWT 0.5 LVPWd 1.5 cm LA Sng Plane LA Area 22.5 cm2 (8.8-23.4) LA Vol 74 ml Index 29.3 ml/m LA LngAx 5.7 cm DOPPLER AV For Flow/Valve Assess AV pkVel 280 cm/s (100-170) AV ET 330 msec AV mnVel 194.9 cm/s AV AC/ET 0.4 AV pkPG 31.4 mmHg AV TVI 64.3 cm AV Mean G 18.3 mmHg AVpkAcRt 23349.2 cm/s2 AV AC 140 msec (83-118) AV Area-Cont. Eq. LVOT Area 3.5 cm2 AV TVI 64.3 cm LVOT TVI 17.3 cm AV Area 0.9 cm2 (3-5) AV SV 59.8 ml Signed 07/21/2017 3:58:00 PM Gloria Lira M.D. Performing Organization Address City/State/Zipcode Phone Number [facility] [id number] [place] [address] after 06/17/2017 Insurance Payer Benefit Plan / Group Subscriber ID Type Phone Address MEDICARE MEDICARE PART A AND B xxxxxxxxxx Medicare [place], [place] AARP AARP SUPPLEMENT xxxxxxxxxxx Commercial (Home) [phone] [place], [place] (Work) [id number] Advance Directives Patient has advance care planning documents on file. For more information, please contact:[id number] [place] [address]
--- OUTSIDE RECORDS SUMMARY | 2018-06-18 20:37 | XMS REPORT ---
:1940 [facility] Address [address] [place] [address] Dr. Vargas [address] [place] [id number] Care Team Providers Name Role Phone Unavailable Unavailable Unavailable Problems This patient has no known problems. Allergies, Adverse Reactions, Alerts This patient has no known allergies or adverse reactions. Medications This patient has no known medications.
[2018-06-18] MEDS ORDERED: ALBUTEROL 2.5 MG/3 ML NEB SOL ONE (22:13)
[2018-06-18] MEDS ORDERED: IPRATROPIUM BROM 0.5MG/2.5ML ONE (22:13)
[2018-06-18 23:12] LABS: Absolute Lymphocytes (CBC) 1.3 K/uL (0.7-4.9); Absolute Monocytes 0.6 K/uL (0.1-1.3); Absolute Neutrophil 4.8 K/uL (1.8-8.0); Basophils % 1.2 % (0-1.3); Eosinophils % 2.2 % (0-4.4); Hematocrit 27.9 % (39.6-49.0); Lymphocytes % 18.8 % (15.3-44.8); MPV 10.5 fL (7.6-11.3); Monocytes % 9.1 % (3.3-12.3); RBC Red Blood Cell Count 2.81 M/uL (4.33-5.43)
[2018-06-18 23:13] LABS: Protime INR 1.19
[2018-06-18 23:38] LABS: Albumin 3.5 g/dL (3.4-5.0); Bilirubin Direct 0.2 mg/dL (0-0.2); Bilirubin Total 0.5 mg/dL (0.2-1.0); Magnesium 2.1 mg/dL (1.8-2.4); Potassium 3.8 mmol/L (3.5-5.1); Protein, Total 7.7 g/dL (6.4-8.2); Troponin (Emerg Dept Use Only) 0.05 ng/mL (0.0-0.045)
[2018-06-19 00:08] LABS: Arterial Blood Carboxyhemoglob 1.6 % (0-1.5); Blood Gas Oxyhemoglobin 94.6 % (94-97); Blood O2 Saturation 96.9 % (92-98.5)
--- NOTE | 2018-06-19 01:20 | ER ---
Nurse's Notes [facility] Name: Sergio Perez Age: 78 yrs Sex: Male : 1940 Arrival Date: 06/18/2018 Time: 20:37 Bed 2 Private MD: Diagnosis: Chronic obstructive pulmonary disease with (acute) exacerbation;Tracheostomy status Presentation: 06/18 20:30 Presenting complaint: EMS states: Shortness of breath since 1600 today. Patient was 86% aj1 on room air upon EMS arrival. Patient was placed on non-rebreather to tracheostomy stoma, O2 sat 100% on nonrebreather. Patient reports that he was discharged from this facility for the same complaint on Thursday. Breath sounds with wheezes. 20:30 Transition of care: patient was not received from another setting of care. Onset of aj1 symptoms was June 18, 2018 at 16:00. Risk Assessment: Do you want to hurt yourself or someone else? Patient reports no desire to harm self or others. Initial Sepsis Screen: Does the patient meet any 2 criteria? RR > 20 per min. HR > 90 bpm. Yes Does the patient have a suspected source of infection? No. Patient's initial sepsis screen is negative. Care prior to arrival: None. 20:30 Method Of Arrival: EMS: [facility] aj1 20:30 Acuity: KARLENE 3 aj1 Triage Assessment: 20:30 General: Appears in no apparent distress. uncomfortable, Behavior is calm, cooperative, aj1 appropriate for age. Pain: Denies pain. Respiratory: Reports shortness of breath Onset: The symptoms/episode began/occurred 5 hours ago, the patient has moderate shortness of breath. Historical: - Allergies: 21:01 Cipro; aj1 21:01 Demerol; aj1 21:01 Iodine; aj1 21:01 SHELLFISH; aj1 - Home Meds: 21:01 albuterol sulfate 2.5 mg /3 mL (0.083 %) Inhl nebu 1 vial daily [Active]; allopurinol aj1 200 mg Oral 2 tabs daily [Active]; amiodarone 200 mg Oral tab 0.5 tab daily [Active]; aspirin 81 mg Oral TbEC 1 tab twice daily [Active]; clopidogrel 75 mg Oral tab 1 tab once daily [Active]; Ferrous Sulfate 65 mg Oral 1x daily [Active]; fluticasone 50 mcg/actuation nasal spsn 1 spray 2 times per day [Active]; gabapentin Oral 1 tab 3 times per day [Active]; indura 800 mg 2 tabs before each meal TID [Active]; ipratropium bromide 0.02 % inhalation soln 2.5 mL 4 times per day [Active]; nitroglycerin 0.4 mg Oral as needed [Active]; omeprazole 20 mg Oral TbEC twice a day [Active]; Tums Oral 2 tabs per meal [Active]; vitamin A 8,000 unit Oral cap 1 cap once daily [Active]; vitamin d1 tablet 2000 IU daily [Active]; zinc sulfate 220 (50) mg Oral cap daily [Active]; - PMHx: 21:01 CHF; COPD; Diabetes - NIDDM; Dialysis; M-W-F; ESRD; GERD; Hypertension; Gout; aj1 Pacemaker; with defib; - Immunization history:: Flu vaccine is up to date. - Ebola Screening: : Patient denies travel to an Ebola-affected area in the 21 days before illness onset. - Social history:: Smoking status: unknown. Screenin:30 Abuse screen: Denies threats or abuse. Denies injuries from another. Nutritional aj1 screening: No deficits noted. Tuberculosis screening: No symptoms or risk factors identified. 22:59 Fall Risk IV access (20 points). Ambulatory Aid- None/Bed Rest/Nurse Assist (0 pts). jd3 Gait- Normal/Bed Rest/Wheelchair (0 pts) Mental Status- Oriented to own ability (0 pts). Total Dodson Fall Scale indicates No Risk (0-24 pts). Assessment: 20:30 General: Appears in no apparent distress. comfortable, Behavior is calm, cooperative, aj1 appropriate for age. Pain: Denies pain. Neuro: Level of Consciousness is awake, alert, obeys commands, Oriented to. 20:30 Neuro: Oriented to person, place, time, situation, Moves all extremities. Full aj1 function. Cardiovascular: Patient's skin is warm and dry. Rhythm is paced. Respiratory: Reports shortness of breath Airway is patent Respiratory effort is even, Respiratory pattern is regular, symmetrical, Breath sounds with wheezes bilaterally. GI: No signs and/or symptoms were reported involving the gastrointestinal system. : No signs and/or symptoms were reported regarding the genitourinary system. EENT: No signs and/or symptoms were reported regarding the EENT system. Derm: No signs and/or symptoms reported regarding the dermatologic system. Skin is pink, warm \T\ dry. normal. Musculoskeletal: No signs and/or symptoms reported regarding the musculoskeletal system. Circulation, motion, and sensation intact. 20:53 Reassessment: Patient is refusing Bi-PAP. Patient removed from Bi-PAP, states that he aj1 is feeling fine without the Bi-PAP on. Respiratory paged to get a trach mask for O2 administration. Patient is 97% on room air at this time. Respiratory rate is 17 breaths per minutes, heart rate 82. 21:38 Reassessment: Patient appears in no apparent distress at this time. No changes from aj1 previously documented assessment. Patient and/or family updated on plan of care and expected duration. Pain level reassessed. Patient is alert, oriented x 3, equal unlabored respirations, skin warm/dry/pink. 22:57 Reassessment: Patient appears in no apparent distress at this time. No changes from jd3 previously documented assessment. Patient and/or family updated on plan of care and expected duration. Pain level reassessed. Patient is alert, oriented x 3, equal unlabored respirations, skin warm/dry/pink. Patient states feeling better. 06/19 00:09 Reassessment: Patient appears in no apparent distress at this time. Patient and/or jd3 family updated on plan of care and expected duration. Pain level reassessed. Patient is alert, oriented x 3, equal unlabored respirations, skin warm/dry/pink. 01:34 Reassessment: Patient appears in no apparent distress at this time. No changes from jd3 previously documented assessment. Patient and/or family updated on plan of care and expected duration. Pain level reassessed. Patient is alert, oriented x 3, equal unlabored respirations, skin warm/dry/pink. Vital Signs: 06/18 20:30 BP 123 / 84; Pulse 82; Resp 22; Temp 98.9(TE); Pulse Ox 96% on BiPAP; Weight 138.35 kg aj1 (R); Height 5 ft. 11 in. (180.34 cm) (R); Pain 0/10; 21:07 BP 114 / 72; Pulse 86; Resp 15; Pulse Ox 97% on R/A; aj1 21:38 BP 114 / 72; Pulse 83; Resp 17; Pulse Ox 96% on R/A; aj1 22:12 BP 116 / 82; Pulse 85; Resp 16; Pulse Ox 100% on Nebulizer Mask; jd3 22:57 BP 116 / 82; Pulse 83; Resp 15 S; Pulse Ox 100% on R/A; jd3 06/19 00:09 BP 103 / 60; Pulse 82; Resp 15 S; Pulse Ox 97% on R/A; jd3 01:34 BP 102 / 65; Pulse 80; Resp 18 S; Pulse Ox 95% on R/A; jd3 06/18 20:30 Body Mass Index 42.54 (138.35 kg, 180.34 cm) aj1 ED Course: 06/18 20:30 No provider procedures requiring assistance completed. aj1 20:30 Arm band placed on. aj1 20:30 Patient has correct armband on for positive identification. compliance monitor on. Pulse aj1 ox on. NIBP on. 20:37 Patient arrived in ED. dm5 20:40 EKG done, by weatherization field technician. reviewed by Mark Almaguer MD. oe 20:52 Sabine Norman, SHAI is Primary Nurse. aj1 20:56 Triage completed. aj1 21:38 Mark Almaguer MD is Attending Physician. gs 22:18 XRAY Chest (1 view) In Process Unspecified. EDMS 22:35 Inserted saline lock: 20 gauge in right antecubital area, using aseptic technique. jd3 Blood collected. placed by Fazal GIBBONS. 22:50 Suctioned via trachea - moderate amount thick white sputum. jd3 06/19 02:21 IV discontinued, intact, bleeding controlled, No redness/swelling at site. Pressure jd3 dressing applied. Administered Medications: 06/18 22:08 Drug: Albuterol 2.5 mg Route: Inhalation; jd3 06/19 02:22 Follow up: Response: No adverse reaction jd3 06/18 22:08 Drug: AtroVENT Aerosol 0.5 mg Route: Inhalation; jd3 06/19 02:22 Follow up: Response: No adverse reaction jd3 Outcome: 01:18 Discharge ordered by . gs 02:20 Discharged to home via wheelchair. jd3 02:20 Condition: stable 02:20 Discharge instructions given to patient, Instructed on discharge instructions, follow up and referral plans. Demonstrated understanding of instructions, follow-up care. 02:23 Patient left the ED. jd3 Signatures: Dispatcher [employer] EDSabine Rollins RN RN aj1 Marika Lo, RN RN dm5 Bong Johnston Gregory, MD MD gs Davies, Jonathon, RN RN jd3 Corrections: (The following items were deleted from the chart) 06/18 20:03 21:01 General: Appears in no apparent distress. uncomfortable, Behavior is calm, aj1 cooperative, appropriate for age, aj1 : 21:01 Pain: Denies pain. aj1 aj 21:01 Respiratory: Reports shortness of breath Onset: The symptoms/episode aj1 began/occurred 5 hours ago, the patient has moderate shortness of breath aj : 21:04 General: Appears in no apparent distress. comfortable, Behavior is calm, aj1 cooperative, appropriate for age, aj1 : 21:04 Pain: Denies pain. aj aj1 : 21:04 Neuro: Level of Consciousness is awake, alert, obeys commands, Oriented to aj aj
--- NOTE | 2018-06-19 01:20 | EDPHYS ---
Physician Documentation [facility] Name: Sergio Perez Age: 78 yrs Sex: Male : 1940 Arrival Date: 06/18/2018 Time: 20:37 Bed 2 Private MD: ED Physician Mark Almaguer HPI: 06/19 04:19 This 78 yrs old Black Male presents to ER via EMS with complaints of SOB. gs 04:19 Onset: The symptoms/episode began/occurred gradually. Duration: The symptoms are gs intermittent, with no pattern. The patient's shortness of breath is aggravated by coughing. Associated signs and symptoms: Pertinent negatives: chest pain, fever. Severity of symptoms: At their worst the symptoms were moderate in the emergency department the symptoms are unchanged. The patient has experienced similar episodes in the past, chronically. The patient has been recently seen at the [facility] Emergency Department, last week. Historical: - Allergies: 06/18 21:01 Cipro; aj1 21:01 Demerol; aj1 21:01 Iodine; aj1 21:01 SHELLFISH; aj1 - Home Meds: 21:01 albuterol sulfate 2.5 mg /3 mL (0.083 %) Inhl nebu 1 vial daily [Active]; allopurinol aj1 200 mg Oral 2 tabs daily [Active]; amiodarone 200 mg Oral tab 0.5 tab daily [Active]; aspirin 81 mg Oral TbEC 1 tab twice daily [Active]; clopidogrel 75 mg Oral tab 1 tab once daily [Active]; Ferrous Sulfate 65 mg Oral 1x daily [Active]; fluticasone 50 mcg/actuation nasal spsn 1 spray 2 times per day [Active]; gabapentin Oral 1 tab 3 times per day [Active]; indura 800 mg 2 tabs before each meal TID [Active]; ipratropium bromide 0.02 % inhalation soln 2.5 mL 4 times per day [Active]; nitroglycerin 0.4 mg Oral as needed [Active]; omeprazole 20 mg Oral TbEC twice a day [Active]; Tums Oral 2 tabs per meal [Active]; vitamin A 8,000 unit Oral cap 1 cap once daily [Active]; vitamin d1 tablet 2000 IU daily [Active]; zinc sulfate 220 (50) mg Oral cap daily [Active]; - PMHx: 21:01 CHF; COPD; Diabetes - NIDDM; Dialysis; M-W-F; ESRD; GERD; Hypertension; Gout; aj1 Pacemaker; with defib; - Immunization history:: Flu vaccine is up to date. - Ebola Screening: : Patient denies travel to an Ebola-affected area in the 21 days before illness onset. - Social history:: Smoking status: unknown. ROS: 06/19 04:19 All other systems are negative. gs Exam: 04:19 Head/Face: Normocephalic, atraumatic. Eyes: Pupils equal round and reactive to light, gs extra-ocular motions intact. Lids and lashes normal. Conjunctiva and sclera are non-icteric and not injected. Cornea within normal limits. Periorbital areas with no swelling, redness, or edema. ENT: Nares patent. No nasal discharge, no septal abnormalities noted. Tympanic membranes are normal and external auditory canals are clear. Oropharynx with no redness, swelling, or masses, exudates, or evidence of obstruction, uvula midline. Mucous membranes moist. Neck: Trachea midline, no thyromegaly or masses palpated, and no cervical lymphadenopathy. Supple, full range of motion without nuchal rigidity, or vertebral point tenderness. No Meningismus. Chest/axilla: Normal chest wall appearance and motion. Nontender with no deformity. No lesions are appreciated. Cardiovascular: Regular rate and rhythm with a normal S1 and S2. No gallops, murmurs, or rubs. Normal PMI, no JVD. No pulse deficits. Respiratory: Lungs have equal breath sounds bilaterally, clear to auscultation and percussion. No rales, rhonchi or wheezes noted. No increased work of breathing, no retractions or nasal flaring. Abdomen/GI: Soft, non-tender, with normal bowel sounds. No distension or tympany. No guarding or rebound. No evidence of tenderness throughout. Back: No spinal tenderness. No costovertebral tenderness. Full range of motion. Skin: Warm, dry with normal turgor. Normal color with no rashes, no lesions, and no evidence of cellulitis. MS/ Extremity: Pulses equal, no cyanosis. Neurovascular intact. Full, normal range of motion. Neuro: Awake and alert, GCS 15, oriented to person, place, time, and situation. Cranial nerves II-XII grossly intact. Motor strength 5/5 in all extremities. Sensory grossly intact. Cerebellar exam normal. Normal gait. 04:19 Constitutional: The patient appears alert, awake. 04:19 Cardiovascular: Edema: 2+ edema to level of left ankle and right ankle. 04:19 Respiratory: trach needs suctioning. 04:19 ECG was reviewed by the Attending Physician. Vital Signs: 06/18 20:30 BP 123 / 84; Pulse 82; Resp 22; Temp 98.9(TE); Pulse Ox 96% on BiPAP; Weight 138.35 kg aj1 (R); Height 5 ft. 11 in. (180.34 cm) (R); Pain 0/10; 21:07 BP 114 / 72; Pulse 86; Resp 15; Pulse Ox 97% on R/A; aj1 21:38 BP 114 / 72; Pulse 83; Resp 17; Pulse Ox 96% on R/A; aj1 22:12 BP 116 / 82; Pulse 85; Resp 16; Pulse Ox 100% on Nebulizer Mask; jd3 22:57 BP 116 / 82; Pulse 83; Resp 15 S; Pulse Ox 100% on R/A; jd3 06/19 00:09 BP 103 / 60; Pulse 82; Resp 15 S; Pulse Ox 97% on R/A; jd3 01:34 BP 102 / 65; Pulse 80; Resp 18 S; Pulse Ox 95% on R/A; jd3 06/18 20:30 Body Mass Index 42.54 (138.35 kg, 180.34 cm) [facility] MDM: 06/18 21:50 Patient medically screened. 06/19 04:19 Differential diagnosis: CHF exacerbation, Chronic Obstructive Pulmonary Disease gs pneumonia, tracheostomy obstruction. Data reviewed: vital signs, nurses notes, old medical records, lab test result(s), EKG, radiologic studies. Counseling: I had a detailed discussion with the patient and/or guardian regarding: the historical points, exam findings, and any diagnostic results supporting the discharge/admit diagnosis, the need for outpatient follow up. Response to treatment: the patient's symptoms have markedly improved after treatment, the patient's condition has returned to base line, and as a result, I will discharge patient. 06/18 21:51 Order name: Basic Metabolic Panel; Complete Time: 00:51 06/18 21:51 Order name: CBC with Diff; Complete Time: 23:35 gs 06/18 21:51 Order name: LFT's; Complete Time: 00:51 gs 06/18 21:51 Order name: Magnesium; Complete Time: 00:51 gs 06/18 21:51 Order name: NT PRO-BNP; Complete Time: 00:51 gs 06/18 21:51 Order name: PT-INR; Complete Time: 23:35 gs 06/18 21:51 Order name: Troponin (emerg Dept Use Only); Complete Time: 00:51 gs 06/18 21:51 Order name: XRAY Chest (1 view) gs 06/18 21:51 Order name: EKG; Complete Time: 21:52 gs 06/18 21:51 Order name: Cardiac monitoring; Complete Time: 22:00 gs 06/18 21:51 Order name: EKG - Nurse/Tech; Complete Time: 22:00 gs 06/18 23:36 Order name: ABG; Complete Time: 00:51 gs 06/18 21:51 Order name: IV Saline Lock; Complete Time: 22:55 gs 06/18 21:51 Order name: Labs collected and sent; Complete Time: 22:55 gs 06/18 21:51 Order name: O2 Per Protocol; Complete Time: 22:14 gs 06/18 21:51 Order name: O2 Sat Monitoring; Complete Time: 22:14 gs 06/18 21:51 Order name: Suction; Complete Time: 22:55 gs EC:19 Rate is 93 beats/min. Rhythm is regular. MS interval is normal. QRS interval is gs prolonged. QT interval is prolonged. T waves are Normal. No ST changes noted. Clinical impression: Abnormal EKG without significant change. Interpreted by me. Administered Medications: 06/18 22:08 Drug: Albuterol 2.5 mg Route: Inhalation; jd3 06/19 02:22 Follow up: Response: No adverse reaction jd3 06/18 22:08 Drug: AtroVENT Aerosol 0.5 mg Route: Inhalation; jd3 06/19 02:22 Follow up: Response: No adverse reaction jd3 Disposition: 06/19/18 01:18 Discharged to Home. Impression: Chronic obstructive pulmonary disease with (acute) exacerbation, Tracheostomy status. - Condition is Stable. - Discharge Instructions: Chronic Obstructive Pulmonary Disease, How to Suction a Tracheostomy. - Medication Reconciliation Form, Thank You Letter, Antibiotic Education, Prescription Opioid Use form. - SBAR form (06/19/18 07:27). em - Follow up: Private Physician; When: 2 - 3 days; Reason: Re-evaluation by your physician. - Problem is an acute exacerbation. - Symptoms have improved. Signatures: Dispatcher [employer] Sabine Galicia RN RN aj1 Mark Almaguer MD MD gs Davies, Jonathon, RN RN Frank Mattson LVN em Corrections: (The following items were deleted from the chart) :19 01:18 06/19/2018 01:18 Discharged to Home. Impression: Chronic obstructive pulmonary gs disease with (acute) exacerbation. Condition is Stable. Forms are Medication Reconciliation Form, Thank You Letter, Antibiotic Education, Prescription Opioid Use. Follow up: Private Physician; When: 2 - 3 days; Reason: Re-evaluation by your physician. Problem is an acute exacerbation. Symptoms have improved. 02:23 01:19 06/19/2018 01:18 Discharged to Home. Impression: Chronic obstructive pulmonary jd3 disease with (acute) exacerbation; Tracheostomy status. Condition is Stable. Discharge Instructions: Chronic Obstructive Pulmonary Disease, How to Suction a Tracheostomy. Forms are Medication Reconciliation Form, Thank You Letter, Antibiotic Education, Prescription Opioid Use. Follow up: Private Physician; When: 2 - 3 days; Reason: Re-evaluation by your physician. Problem is an acute exacerbation. Symptoms have improved. gs
[2018-06-19 02:52] VITALS: BP 102/65; O2SAT 95
--- NOTE | 2018-06-19 07:15 | EKG ---
Test Date: 2018-06-18 Test Time: 20:34:38 Dental Hygiene Administrative Assistant: DARI MEASUREMENT RESULTS: Intervals: Rate: 93 GA: 170 QRSD: 150 QT: 420 QTc: 522 [place]: P: 39 GA: 170 QRS: -47 T: 113 INTERPRETIVE STATEMENTS: Atrial-sensed ventricular-paced rhythm tracking sinus rhythm Compared to ECG 05/28/2018 23:07:05 No significant changes Electronically Signed On 06-19-18 07:14:19 STRETCHING MACHINE OPERATOR by Thomas Middleton
--- NOTE | 2018-06-19 09:27 | RAD REPORT ---
EXAM DESCRIPTION: RAD - Chest Single View - 06/18/2018 10:20 pm CLINICAL HISTORY: Cough, shortness of breath COMPARISON: May 28 TECHNIQUE: AP portable chest image was obtained 2218 hours . FINDINGS: No peripheral mass or consolidation. Heart size is prominent with mild vascular engorgemen t. Right-sided defibrillator is in place. Trach tube in place as well. No measurable pleural effusion and no pneumothorax. No acute bony abnormality seen. No acute aortic findings suspected. IMPRESSION: Heart, vasculature and lung markings are all mildly prominent. Pattern is not substantially different from prior imaging. A mild failure or volume overload could be masked.
== END 2018-06-19 02:23 | disposition home or self-care (01) ==
LOC: ER 20:33
DX: J44.1 Chronic obstructive pulmonary disease with (acute) exacerbation (principal); Z93.0 Tracheostomy status; I12.0 Hypertensive chronic kidney disease with stage 5 chronic kidney disease or end stage renal disease; E11.22 Type 2 diabetes mellitus with diabetic chronic kidney disease; N18.6 End stage renal disease; Z79.82 Long term (current) use of aspirin; I50.9 Heart failure, unspecified; Z88.5 Allergy status to narcotic agent; Z88.8 Allergy status to other drugs, medicaments and biological substances; Z95.0 Presence of cardiac pacemaker; Z99.2 Dependence on renal dialysis; Z91.013 Allergy to seafood; Z91.048 Other nonmedicinal substance allergy status
CPT/HCPCS: 36415; 71045; 80048; 80076; 82805; 83735; 83880; 84484; 85025; 85610; 93005; 94660; 99285

== ENCOUNTER 2018-06-19 04:33 | Inpatient (IN) | payer OTHER, MEDICARE ==
--- OUTSIDE RECORDS SUMMARY | 2018-06-19 04:36 | XMS REPORT ---
:1940 [facility] Address [address] [place] [address] Dr. Vargas [address] [place] [id number] Care Team Providers Name Role Phone Unavailable Unavailable Unavailable Problems This patient has no known problems. Allergies, Adverse Reactions, Alerts This patient has no known allergies or adverse reactions. Medications This patient has no known medications.
--- OUTSIDE RECORDS SUMMARY | 2018-06-19 04:36 | XMS REPORT | Clinical Summary ---
:1940 Author Organization [facility] Address [address] [place] [address] Care Team Providers Name Role Phone Anmol [...] Overview: Added automatically from request for surgery [id number] Coronary artery disease involving [place] coronary artery of [place] heart 07/22 without angina pectoris Overview: Added automatically from request for surgery [id number] Chest pain 07/22/2017 Overview: Added automatically from request for surgery [id number] Angina pectoris 07/21/2017 Coronary artery disease of [place] artery of [place] heart with stable 2017 angina pectoris Automatic [...] Dx); MD Susan Coronary artery disease involving [place] coronary artery of [place] heart without angina pectoris 07/30/2017 Surgery Procedural Ascencion Quintero Cv selective Cardiology MD Susan coronary angiography [14584 (CPT)] 07/30/2017 Hospital Encounter Procedural Ascencion Quintero PAD (peripheral artery disease); Cardiology MD Susan Coronary artery disease involving [place] coronary artery of [place] heart without angina pectoris; Chest pain, unspecified type; Unstable angina 07/22/2017 Orders Only Cardiology Justin Ojeda MA PAD (peripheral artery disease) (Primary Dx); Coronary artery disease involving [place] coronary artery of [place] heart without angina pectoris; Chest pain, unspecified type; Unstable angina 07/21/2017 Office Visit Cardiology Ascencion Quintero Angina pectoris (Primary Dx ); MD Susan Systolic congestive heart failure, unspecified congestive heart failure chronicity; PAD (peripheral artery disease); Coronary artery disease of [place] artery of [place] heart with stable angina pectoris after 06/18/2017 Family History Relation Name Status Comments Father [...] Taken Blood Pressure 108/53 04/27/2018 11:28 AM MOLECULAR PATHOLOGIST Pulse 94 04/27/2018 11:28 AM MOLECULAR PATHOLOGIST Temperature 36.4 C (97.6 F) 07/30/2017 11:00 AM CDT Respiratory Rate 20 07/30/2017 4:15 PM CDT Oxygen Saturation 98% 07/30/2017 3:45 PM CDT Inhaled Oxygen Concentration - - Weight 138 kg (305 lb) 04/27/2018 11:28 AM MOLECULAR PATHOLOGIST Height 180.3 cm (5' 11") 04/27/2018 11:28 AM MOLECULAR PATHOLOGIST Body Mass Index 42.54 04/27/2018 11:28 AM MOLECULAR PATHOLOGIST Plan of Treatment Date Type Specialty Care Team Description 10/26/2018 Office Visit Cardiology Ascencion Quintero MD [id number] [address] Health Maintenance Due Date Last Done Comments SHINGLES VACCINES (#1) 1989 65+ PNEUMOCOCCAL VACCINE (1 of 2 - PCV13) 01/17/2004 PNEUMOCOCCAL POLYSACCHARIDE VACCINE AGE 65 AND OVER 01/17/2004 INFLUENZA VACCINE 11/11/2017 Implants Implanted Type Area [employer] Device Shelf Model / Identifier Expiration Serial / Date Lot Device Vasclr Clsr Vasoactive Intstnl Peptd 8fr Angio-Seal - [id number] Cardiovascular N/A: 06/10/2017 [id number] / Implanted: 08/07/2016 (Quantity not on file) Implants N/A / [id number] Stent Bili Protege Everflex Slf-Xpndbl 120cm [id number] - [id number] Coronary Stents N/A: [employer] 05/03/2017 [id number] 120 / Implanted: 08/07/2016 (Quantity not on file) N/A / [id number] Procedures Procedure Name Priority Date/Time Associated Comments Diagnosis ECHOCARDIOGRAM 2D Routine 05/03/2018 5:01 Cardiomyopathy, Results for this COMPLETE W MMODE PM MOLECULAR PATHOLOGIST unspecified type procedure are in SPECTRAL COLOR DOPPLER (HCC) the results (34563) Chest pain, section. unspecified type ECG 12-LEAD Routine 04/27/2018 11:33 Cardiomyopathy, Results for this AM MOLECULAR PATHOLOGIST unspecified type procedure are in (HCC) the results section. CV SELECTIVE CORONARY Routine 07/30/2017 2:17 Unstable angina Results for this ANGIOGRAPHY PM CDT PAD (peripheral procedure are in artery disease) the results Coronary artery section. disease involving [place] coronary artery of [place] heart without angina pectoris Chest pain, unspecified [...] are in SPECTRAL COLOR DOPPLER the results (90960) section. ECG 12-LEAD Routine 07/21/2017 9:06 Systolic congestive Results for this AM CDT heart failure, procedure are in unspecified the results congestive heart section. failure chronicity after 06/18/2017 Results Echocardiogram complete w contrast and 3D if needed (05/03/2018 5:01 PM MOLECULAR PATHOLOGIST) Narrative Performed At [facility] Echocardiography Report Pat.Name:DILLON GARIBAY Pat.ID:[id number] .Date: 05/03/2018 Refer.MD:ASCENCION QUINTERO MD Exam Time: 3:40:00 PMStudy Type:Routine Echo Height:71inWeight: 305lb BSA: 2.53 m2 DOBAge:1940,78Y Sex: MALEBP:108/53 HR:70 bpm Sonogrphr: EZRA Costello FASE Pat. Stat.:OutpatientRoom:[place] Study Status:Final Echo Event ID:[id number] Order ID:[id number] Reason for Study:Cardiomyopathy with no status change [...] RAPof 5 mmHg. MEASUREMENTS: 2D Parasternal Long Browder LVOT 2.2 cmLA Ds4.9 cm LVIDd6 cmIndex2.4 cm/m Ao An1.9 cm LVIDs5.1 cmAo Rtd 3.4 cm Index1.4 cm/m LV%fs 13.9 % LV Grub761.8 g(122-174) IVSd 1.3 cmLVM Vrkso198.4 g/m2 LVPWd1.3 cmRWT0.5 LA Sng Plane LA [...] Radiology Results In - 05/04/2018 2:44 PM MOLECULAR PATHOLOGIST [facility] Echocardiography Report Pat.Name: DILLON GARIBAY Pat.ID: [id number] .Date: 05/03/2018 Refer.MD: ASCENCION QUINTERO MD Exam Time: 3:40:00 PM Study Type:Routine Echo Height: 71in Weight: 305lb BSA: 2.53 m2 Age: 1001/16/1940,78Y Sex: MALE BP: 108/53 HR: 70 bpm Sonogrphr: EZRA Costello FASE Pat. Stat.:Outpatient Room: [place] Study Status:Final Echo Event ID:[id number] Order ID: [id number] Reason for Study:Cardiomyopathy with no status change [...] of 5 mmHg. MEASUREMENTS: 2D Parasternal Long Browder LVOT 2.2 cm LA Ds 4.9 cm [...] PM Ayo Polk M.D. Performing Organization Address [facility] [place] Phone Number [facility] [address] [place] [address] ECG 12 lead (04/27/2018 11:33 AM MOLECULAR PATHOLOGIST)Only the most recent of2 resultswithin the time period is included. Ventricular rate 87 [facility] MUSE Atrial rate 87 [facility] MUSE IA interval 164 [facility] MUSE QRSD interval 154 [facility] MUSE QT interval 444 [facility] QTC interval 534 [facility] MUSE P axis 1 60 [facility] MUSE QRS axis 1 -16 [facility] MUSE T wave axis -73 [facility] MUSE EKG impression Atrial-sensed ventricular-paced [facility] MUSE rhythm-Abnormal ECG-In automated comparison with ECG of 21-JUL-2017 09:06,-Electronic ventricular pacemaker has replaced Sinus rhythm-Electronically Signed By Cristy CHOWDHURY, [facility] ([id number]) on 04/27/2018 11:31:11 PM Narrative Performed At Performing Organization Address 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 Non obstructive CAD [facility] 2. 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 [place] Phone Number [facility] [address] [place] [address] Prothrombin time with INR (07/30/2017 11:50 AM CDT)Only the most recent of2 resultswithin the time period is included. Prothrombin time 14.5 12.0 - 15.0 sec [facility] DEPARTMENT OF PATHOLOGY AND GENOMIC MEDICINE INR 1.1 [facility] DEPARTMENT OF Comment: PATHOLOGY AND GENOMIC The International Normalized Ratio (INR) is a therapeutic MEDICINE monitoring tool for patients who are stable on oral anticoagulant therapy. An INR of 2.0-3.0 is suggested for deep vein thrombosis/pulmonary embolism. Specimen Blood Performing Organization Address [facility] Phone Number [facility] DEPARTMENT OF PATHOLOGY AND [address] [place] [address] [employer] MEDICINE Estimated GFR (07/30/2017 11:39 AM CDT) GFR Non Af Amer 8 (A) mL/min/1.73 m2 [facility] DEPARTMENT OF PATHOLOGY AND GENOMIC MEDICINE GFR Af Amer 10 (A) mL/min/1.73 m2 [facility] DEPARTMENT OF Comment: PATHOLOGY AND GENOMIC Chronic [...] Americans. Specimen Plasma specimen Performing Organization Address [facility] Phone Number [facility] DEPARTMENT OF PATHOLOGY AND [address] [place] [address] [employer] CK-MB (07/30/2017 11:39 AM CDT) CK-MB 1.3 1.0 - 10.4 ng/mL [facility] DEPARTMENT OF PATHOLOGY Comment: AND [employer] As of Aug 11 2017, this test will no longer be available in [facility]. Specimen Plasma specimen Narrative Performed At [facility] to perform testing, specimen is [facility] DEPARTMENT OF PATHOLOGY AND GENOMIC HEMOLYZED.[employer] MEDICINE requested for K (tests).KENDALL MIRELES/MIKA (name/location) notified by PR1 (tech ID) at07/30/201712:35(date/time). Credit issued. Performing Organization Address City/State/Zipcode Phone Number [facility] DEPARTMENT OF PATHOLOGY AND [address] [place], [place] [phone] [employer] Basic metabolic panel (07/30/2017 11:39 AM CDT) Sodium 136 135 - 148 mEq/L [facility] DEPARTMENT OF PATHOLOGY AND GENOMIC MEDICINE Potassium SEE COMMENT 3.5 - 5.0 mEq/L [facility] DEPARTMENT OF PATHOLOGY Comment: AND [employer] Footnote--------- HEMOLYZED Chloride 94 (L) 98 - 112 mEq/L [facility] DEPARTMENT OF PATHOLOGY AND GENOMIC MEDICINE CO2 28 24 - 31 mEq/L [facility] DEPARTMENT OF PATHOLOGY AND GENOMIC MEDICINE Anion gap 14 7 - 15 mEq/L [facility] DEPARTMENT OF PATHOLOGY Comment: AND [facility] Starting from July , anion gap calculation no longer incorporates potassium. Please note the change. BUN 20 8 - 23 mg/dL [facility] DEPARTMENT OF PATHOLOGY AND GENOMIC MEDICINE Creatinine 6.4 (H) 0.7 - 1.2 mg/dL [facility] DEPARTMENT OF PATHOLOGY AND GENOMIC MEDICINE Glucose 108 (H) 65 - 99 mg/dL [facility] DEPARTMENT OF PATHOLOGY AND GENOMIC MEDICINE Calcium 9.4 8.8 - 10.2 mg/dL [facility] DEPARTMENT OF PATHOLOGY AND GENOMIC MEDICINE Specimen Plasma specimen Performing Organization Address City/[facility] Phone Number [facility] DEPARTMENT OF PATHOLOGY AND [address] [place] [address] [facility] COPY RECEIVED FROM: (07/27/2017 11:55 AM CDT) Copy received from: [facility] Comment: [address] [facility] [address] [place] [address] Narrative Performed At FASTING:NO [facility] FASTING: NO Performing Organization Address City/[facility] Phone Number [facility] COPY(IES) SENT TO: (07/27/2017 11:55 AM CDT) Copies/mL [facility] Comment: DONNA [address] [facility] [address] [place] [address] Narrative Performed At FASTING:NO [facility] FASTING: NO Performing Organization Address [facility] Phone Number [facility] Partial thromboplastin time, activated (07/27/2017 11:55 AM CDT) PTT 33 22 - 34 sec [employer] [place] Comment: This test has not been validated for monitoring unfractionated heparin therapy. For testing that is validated for this type of therapy, please refer to the Heparin Anti-Xa assay (test code 41304). For additional information, please refer to http://education.Unique Property/faq/SZV568 (This link is being provided for informational/educational purposes only.) Narrative Performed At FASTING:NO [facility] FASTING: NO Resulting Agency Comment Performing Organization Information: Site ID: [id number] Name: [facility] Address: [address] [place] [phone] Director: Lea Hanna Performing Organization Address City/[facility]/Zipcode Phone Number [facility] [address] [address] CBC with platelet and differential (07/27/2017 11:55 AM CDT) WBC 5.4 3.8 - 10.8 Thousand/uL [employer] [place] RBC 3.07 (L) 4.20 - 5.80 Million/uL [employer] [place] HGB 9.6 (L) 13.2 - 17.1 g/dL [employer] [place] HCT 29.6 (L) 38.5 - 50.0 % [employer] [place] MCV 96.4 80.0 - 100.0 fL [employer] [place] MCH 31.3 27.0 - 33.0 pg [employer] [place] MCHC 32.4 32.0 - 36.0 g/dL [employer] [place] RDW 15.9 (H) 11.0 - 15.0 % [employer] [place] Platelet count 161 140 - 400 Thousand/uL [facility] [employer] [place] MPV 11.8 7.5 - 12.5 fL [employer] [place] Neutrophils, absolute 3,218 1,500 - 7,800 cells/uL [employer] [place] Lymphocytes, absolute 1,161 850 - 3,900 cells/uL [employer] [place] Monocytes, absolute 562 200 - 950 cells/uL [employer] [place] Eosinophils, absolute 400 15 - 500 cells/uL [employer] [place] Basophils, absolute 59 0 - 200 cells/uL [employer] [place] Neutrophils 59.6 % [employer] [place] Lymphocytes 21.5 % [employer] [place] Monocytes 10.4 % [employer] [place] Eosinophils 7.4 % [employer] [place] Basophils + RC 1.1 % [employer] [place] Specimen Blood Narrative Performed At FASTING:NO [facility] FASTING: NO Resulting Agency Comment Performing Organization Information: Site ID: [id number] Name: [facility] Address: [address] [place] [address] Director: Lea Hanna Performing Organization Address City/State/Zipcode Phone Number [facility] [address] [address] Comprehensive metabolic panel (07/27/2017 11:55 AM CDT) Glucose 168 (H) 65 - 139 mg/dL [employer] [facility] Comment: [place] Non-fasting reference interval BUN, whole blood 11 7 - 25 mg/dL [employer] [facility] Creatinine 4.59 (H) 0.70 - 1.18 [employer] Comment: mg/dL [place] For patients >49 years of age, the reference limit for Creatinine is approximately 13% higher for people identified as -Hungarian. EGFR Non-Afr. Hungarian 11 (L) > OR=60 [employer] [facility] mL/min/1.73m2 [place] EGFR 13 (L) > OR=60 [facility] mL/min/1.73m2 [place] BUN/creatinine ratio 2 (L) 6 - 22 (calc) [employer] [place] Sodium 138 135 - 146 mmol/L [employer] [place] Potassium 3.9 3.5 - 5.3 mmol/L [employer] [place] Chloride 99 98 - 110 mmol/L [employer] [place] CO2 29 20 - 31 mmol/L [employer] [place] Calcium 9.2 8.6 - 10.3 mg/dL [facility] [employer] [place] Protein 7.3 6.1 - 8.1 g/dL [employer] [place] Albumin, S 4.1 3.6 - 5.1 g/dL [facility] Globulin, total 3.2 1.9 - 3.7 g/dL [employer] [facility] (calc) [place] Albumin/globulin ratio 1.3 1.0 - 2.5 (calc) [employer] [facility] Total bilirubin 0.4 0.2 - 1.2 mg/dL [facility] Alkaline phosphatase 135 (H) 40 - 115 U/L [facility] [employer] [place] AST 11 10 - 35 U/L [facility] ALT 7 (L) 9 - 46 U/L [employer] [place] Specimen Blood Narrative Performed At FASTING:NO [facility] FASTING: NO Resulting Agency Comment Performing Organization Information: Site ID: [id number] Name: [facility] Address: [address] [place] [phone] Director: Lea Hanna Performing Organization Address City/State/Zipcode Phone Number [place] [phone] Echocardiogram complete w contrast and 3D if needed (07/21/2017 11:22 AM CDT) Narrative Performed At [facility] Echocardiography Report Pat.Name:DILLON GARIBAY Pat.ID:[id number] St.Date: 07/21/2017 Refer.MD:ASCENCION QUINTERO MD Exam Time: 11:56:00 AM Study Type:Routine Echo Height:71inWeight: 307lb BSA: 2.53 m2 DOBAge:1940,77Y Sex: MALEBP:117/58 HR:84 bpmSonogrphr: La Kumar RDCS, RVT Pat. Stat.:OutpatientRoom:[place] Study Status:Final Echo Event ID:[id number] Order ID:[id number] Reason for Study:Systolic congestive heart failure, coronary [...] of 10 mmHg. MEASUREMENTS: 2D Parasternal Long Browder LVOT 2.1 cmLA Ds5 cm LVIDd6 cmIndex2.4 cm/m Ao An2.2 cm LVIDs5.1 cmAo Rtd 2.6 cm Index1 cm/m LV%fs 16 % LV Enfm404.6 g(122-174) IVSd 1.4 cmRWT0.5 LVPWd1.5 cm LA Sng Plane LA Area 22.5 cm2(8.8-23.4) LA Vol74 ml Index29.3 ml/m LA LngAx 5.7 cm DOPPLER AV For Flow/Valve Assess AV pkVel 280 cm/s (100-170) AV ET330 msec AV mnVel 194.9 cm/Mariah AC/ET 0.4 AV pkPG 31.4 mmHgAV TVI64.3 cm AV Mean G 18.3 mmHgAVpkAcRt 37777.2 cm/s2 AV AC140 msec (83-118) AV Area-Cont. Eq. LVOT Area3.5 cm2 AV TVI64.3 cm LVOT TVI17.3 cmAV Area0.9 cm2(3-5) AV SV 59.8 ml Signed 07/21/2017 3:58:00 PM Gloria Lira M.D. Procedure Note Interface, Radiology Results In - 08/11/2017 11:05 AM CDT [facility] Echocardiography Report Pat.Name: DILLON GARIBAY Pat.ID: [id number] .Date: 07/21/2017 Refer.MD: ASCENCION QUINTERO MD Exam Time: 11:56:00 AM Study Type:Routine Echo Height: 71in Weight: 307lb BSA: 2.53 m2 Age: 1001/16/1940,77Y Sex: MALE BP: 117/58 HR: 84 bpm Sonogrphr: La Kumar RDCS, RVT Pat. Stat.:Outpatient Room: [place] Study Status:Final Echo Event ID:[id number] Order ID: [id number] Reason for Study:Systolic congestive heart failure, coronary [...] of 10 mmHg. MEASUREMENTS: 2D Parasternal Long Browder LVOT 2.1 cm LA Ds 5 cm [...] cm AV Mean G 18.3 mmHg AVpkAcRt 12492.2 cm/s2 AV AC 140 msec (83-118) AV Area-Cont. Eq. LVOT Area 3.5 cm2 AV TVI 64.3 cm LVOT TVI 17.3 cm AV Area 0.9 cm2 (3-5) AV SV 59.8 ml Signed 07/21/2017 3:58:00 PM Gloria Lira M.D. Performing Organization Address City/State/Zipcode Phone Number [facility] [address] [place] [address] after 06/18/2017 Insurance Payer Benefit Plan / Group Subscriber ID Type Phone Address MEDICARE MEDICARE PART A AND B xxxxxxxxxx Medicare [place], [place] AARP AARP SUPPLEMENT xxxxxxxxxxx Commercial (Home) [phone] [place], [place] (Work) [address] Advance Directives Patient has advance care planning documents on file. For more information, please contact:[id number] [place] [address]
[2018-06-19] MEDS ORDERED: ALBUTEROL 2.5 MG/3 ML NEB SOL ONE (04:56)
[2018-06-19] MEDS ORDERED: IPRATROPIUM BROM 0.5MG/2.5ML ONE (04:56)
[2018-06-19] MEDS ORDERED: predniSONE 20 MG TAB ONE (05:16)
--- NOTE | 2018-06-19 05:59 | ER ---
Nurse's Notes [facility] Name: Sergio Perez Age: 78 yrs Sex: Male : 1940 Arrival Date: 06/19/2018 Time: 04:34 Bed 20 Private MD: Garcia Salazar C Diagnosis: Heart failure;Other chronic obstructive pulmonary disease Presentation: 06/19 04:46 Presenting complaint: Patient states: seen in ER earlier tonight and discharged. pt ak1 sitting in lobby c/o SOB. Transition of care: patient was not received from another setting of care. Onset of symptoms is unknown. Risk Assessment: Do you want to hurt yourself or someone else? Patient reports no desire to harm self or others. Initial Sepsis Screen: Does the patient meet any 2 criteria? No. Patient's initial sepsis screen is negative. Does the patient have a suspected source of infection? No. Patient's initial sepsis screen is negative. Care prior to arrival: None. 04:46 Method Of Arrival: Wheelchair ak1 04:46 Acuity: KARLENE 4 ak1 Triage Assessment: 04:51 General: Appears in no apparent distress. Behavior is calm, cooperative. Pain: Denies ak1 pain. EENT: No signs and/or symptoms were reported regarding the EENT system. Neuro: No deficits noted. Cardiovascular: No deficits noted. Respiratory: Reports shortness of breath at rest since discharge from ER Airway is patent Onset: The symptoms/episode began/occurred today, the patient has mild shortness of breath. GI: No signs and/or symptoms were reported involving the gastrointestinal system. : No signs and/or symptoms were reported regarding the genitourinary system. Derm: No signs and/or symptoms reported regarding the dermatologic system. Musculoskeletal: No signs and/or symptoms reported regarding the musculoskeletal system. Historical: - Allergies: 04:51 Cipro; ak1 04:51 Iodine; ak1 04:51 Demerol; ak1 04:51 SHELLFISH; ak1 - Home Meds: 04:51 albuterol sulfate 2.5 mg /3 mL (0.083 %) Inhl nebu 1 vial daily [Active]; allopurinol ak1 200 mg Oral 2 tabs daily [Active]; amiodarone 200 mg Oral tab 0.5 tab daily [Active]; aspirin 81 mg Oral TbEC 1 tab twice daily [Active]; clopidogrel 75 mg Oral tab 1 tab once daily [Active]; Ferrous Sulfate 65 mg Oral 1x daily [Active]; fluticasone 50 mcg/actuation nasal spsn 1 spray 2 times per day [Active]; gabapentin Oral 1 tab 3 times per day [Active]; indura 800 mg 2 tabs before each meal TID [Active]; ipratropium bromide 0.02 % inhalation soln 2.5 mL 4 times per day [Active]; nitroglycerin 0.4 mg Oral as needed [Active]; omeprazole 20 mg Oral TbEC twice a day [Active]; Tums Oral 2 tabs per meal [Active]; vitamin A 8,000 unit Oral cap 1 cap once daily [Active]; vitamin d1 tablet 2000 IU daily [Active]; zinc sulfate 220 (50) mg Oral cap daily [Active]; - PMHx: 04:51 CHF; COPD; Diabetes - NIDDM; Dialysis; M-W-F; ESRD; GERD; Gout; Pacemaker; with defib; ak1 Hypertension; - PSHx: 07:41 Cholecystectomy; Appendectomy; tracheostomy; em - Immunization history:: Adult Immunizations unknown. - Social history:: Smoking status: Patient/guardian denies using tobacco. - Ebola Screening: : No symptoms or risks identified at this time. Screenin:58 Abuse screen: Denies threats or abuse. Denies injuries from another. Nutritional ak1 screening: No deficits noted. Tuberculosis screening: No symptoms or risk factors identified. Fall Risk None identified. Assessment: 04:58 General: Appears in no apparent distress. Behavior is pt eating chips during triage. ak1 05:00 Respiratory: Respiratory effort is unlabored. ak1 05:15 Reassessment: Patient appears in no apparent distress at this time. No changes from ak1 previously documented assessment. Patient and/or family updated on plan of care and expected duration. Pain level reassessed. Patient is alert, oriented x 3, equal unlabored respirations, skin warm/dry/pink. 06:00 Cardiovascular: Rhythm is sinus rhythm. ak1 06:00 Respiratory: Airway is patent Breath sounds are clear. ak1 06:25 Reassessment: Patient appears in no apparent distress at this time. No changes from ak1 previously documented assessment. Patient and/or family updated on plan of care and expected duration. Pain level reassessed. Patient is alert, oriented x 3, equal unlabored respirations, skin warm/dry/pink. pt requested to be admitted. 07:18 Reassessment: Patient appears in no apparent distress at this time. Patient and/or em family updated on plan of care and expected duration. Pain level reassessed. Patient is alert, oriented x 3, equal unlabored respirations, skin warm/dry/pink. Patient denies pain at this time. Vital Signs: 04:51 BP 120 / 69; Pulse 81; Resp 22; Temp 98.4; Pulse Ox 100% on R/A; Weight 138.35 kg (R); ak1 Height 5 ft. 11 in. (180.34 cm) (R); Pain 0/10; 05:38 BP 110 / 53; Pulse 80; Resp 20; Pulse Ox 100% on R/A; ak1 06:23 BP 109 / 67; Pulse 80; Resp 20; Temp 98.4(O); Pulse Ox 97% on R/A; ak1 07:15 BP 108 / 55; Pulse 85; Resp 18 S; Temp 98.4(O); Pulse Ox 99% on R/A; Pain 0/10; em 04:51 Body Mass Index 42.54 (138.35 kg, 180.34 cm) ak1 ED Course: 04:34 Patient arrived in ED. es 04:34 Garcia Salazar MD is Private Physician. es 04:[address], RN is Primary Nurse. ak1 04:47 Triage completed. ak1 04:51 Arm band placed on Patient placed in an exam room, on a stretcher, on pulse oximetry, ak1 Patient notified of wait time. 04:52 Mark Almaguer MD is Attending Physician. gs 04:59 Patient has correct armband on for positive identification. Bed in low position. Call ak1 light in reach. Side rails up X 1. Pulse ox on. NIBP on. 05:57 Garcia Salazar MD is Hospitalizing Provider. gs 06:24 Patient did not have IV access during this emergency room visit. ak1 06:24 No provider procedures requiring assistance completed. ak1 Administered Medications: 04:59 Drug: AtroVENT Aerosol 0.5 mg Route: Inhalation; ak1 04:59 Drug: Albuterol 2.5 mg Route: Inhalation; ak1 05:10 Drug: predniSONE 40 mg Route: PO; ak1 05:25 Follow up: Response: No adverse reaction ak1 Outcome: 05:15 Condition: stable ak1 05:58 Decision to Hospitalize by Provider. 06:25 Instructed on the need for admit. ak1 07:49 Admitted to Tele accompanied by tech, via wheelchair, room 414, with chart, Report em called to SHAI Santa 07:59 Patient left the ED. em Signatures: Hortensia Templeton Edgar, OPTIC FIBRE DRAWER OPTIC FIBRE DRAWER Joy Dominguez RN RN ak1 Mark Almaguer MD MD
--- NOTE | 2018-06-19 05:59 | EDPHYS ---
Physician Documentation [facility] Name: Sergio Perez Age: 78 yrs Sex: Male : 1940 Arrival Date: 06/19/2018 Time: 04:34 Bed 20 Private MD: Garcia Salzaar C ED Physician Mark Almaguer HPI: 06/19 05:53 This 78 yrs old Black Male presents to ER via Wheelchair with complaints of Breathing gs Difficulty. 05:53 Onset: The symptoms/episode began/occurred yesterday. Duration: The symptoms are gs intermittent. The patient's shortness of breath is aggravated by exertion. Associated signs and symptoms: Pertinent negatives: chest pain. Severity of symptoms: At their worst the symptoms were moderate in the emergency department the symptoms are unchanged. The patient has experienced similar episodes in the past, chronically. Historical: - Allergies: 04:51 Cipro; ak1 04:51 Iodine; ak1 04:51 Demerol; ak1 04:51 SHELLFISH; ak1 - Home Meds: 04:51 albuterol sulfate 2.5 mg /3 mL (0.083 %) Inhl nebu 1 vial daily [Active]; allopurinol ak1 200 mg Oral 2 tabs daily [Active]; amiodarone 200 mg Oral tab 0.5 tab daily [Active]; aspirin 81 mg Oral TbEC 1 tab twice daily [Active]; clopidogrel 75 mg Oral tab 1 tab once daily [Active]; Ferrous Sulfate 65 mg Oral 1x daily [Active]; fluticasone 50 mcg/actuation nasal spsn 1 spray 2 times per day [Active]; gabapentin Oral 1 tab 3 times per day [Active]; indura 800 mg 2 tabs before each meal TID [Active]; ipratropium bromide 0.02 % inhalation soln 2.5 mL 4 times per day [Active]; nitroglycerin 0.4 mg Oral as needed [Active]; omeprazole 20 mg Oral TbEC twice a day [Active]; Tums Oral 2 tabs per meal [Active]; vitamin A 8,000 unit Oral cap 1 cap once daily [Active]; vitamin d1 tablet 2000 IU daily [Active]; zinc sulfate 220 (50) mg Oral cap daily [Active]; - PMHx: 04:51 CHF; COPD; Diabetes - NIDDM; Dialysis; M-W-F; ESRD; GERD; Gout; Pacemaker; with defib; ak1 Hypertension; - PSHx: 07:41 Cholecystectomy; Appendectomy; tracheostomy; em - Immunization history:: Adult Immunizations unknown. - Social history:: Smoking status: Patient/guardian denies using tobacco. - Ebola Screening: : No symptoms or risks identified at this time. ROS: 05:53 All other systems are negative. gs Exam: 05:53 Abdomen/GI: Soft, non-tender, with normal bowel sounds. No distension or tympany. No gs guarding or rebound. No evidence of tenderness throughout. Back: No spinal tenderness. No costovertebral tenderness. Full range of motion. Skin: Warm, dry with normal turgor. Normal color with no rashes, no lesions, and no evidence of cellulitis. MS/ Extremity: Pulses equal, no cyanosis. Neurovascular intact. Full, normal range of motion. Neuro: Awake and alert, GCS 15, oriented to person, place, time, and situation. Cranial nerves II-XII grossly intact. Motor strength 5/5 in all extremities. Sensory grossly intact. Cerebellar exam normal. Normal gait. 05:53 Constitutional: The patient appears alert, awake. 05:53 Neck: Trachea: trach present. 05:53 Cardiovascular: Rate: normal. 05:53 Respiratory: Breath sounds: rhonchi, that are mild, are scattered. Vital Signs: 04:51 BP 120 / 69; Pulse 81; Resp 22; Temp 98.4; Pulse Ox 100% on R/A; Weight 138.35 kg (R); ak1 Height 5 ft. 11 in. (180.34 cm) (R); Pain 0/10; 05:38 BP 110 / 53; Pulse 80; Resp 20; Pulse Ox 100% on R/A; ak1 06:23 BP 109 / 67; Pulse 80; Resp 20; Temp 98.4(O); Pulse Ox 97% on R/A; ak1 07:15 BP 108 / 55; Pulse 85; Resp 18 S; Temp 98.4(O); Pulse Ox 99% on R/A; Pain 0/10; em 04:51 Body Mass Index 42.54 (138.35 kg, 180.34 cm) ak1 MDM: 04:52 Patient medically screened. gs 05:53 Differential diagnosis: Bronchitis CHF exacerbation, Chronic Obstructive Pulmonary gs Disease pulmonary edema. Data reviewed: vital signs, nurses notes. Response to treatment: the patient's symptoms have markedly improved after treatment, and as a result, I will admit patient. 06/19 06:10 Order name: Troponin I EDNM 06/19 06:10 Order name: Troponin I EDMS 06/19 06:10 Order name: Troponin I EDNM 06/19 06:10 Order name: Heart Healthy EDNM Administered Medications: 04:59 Drug: AtroVENT Aerosol 0.5 mg Route: Inhalation; ak1 04:59 Drug: Albuterol 2.5 mg Route: Inhalation; ak1 05:10 Drug: predniSONE 40 mg Route: PO; ak1 05:25 Follow up: Response: No adverse reaction ak1 Disposition: 06/19/18 05:58 Hospitalization ordered by Garcia Salazar for Observation. Preliminary diagnosis are Heart failure, Other chronic obstructive pulmonary disease. - Bed requested for Telemetry/MedSurg (observation). - Status is Observation. em - Condition is Stable. - Problem is new. - Symptoms have improved. UTI on Admission? No Signatures: Dispatcher [employer] Yesenia Torres RN RN Frank David, DOUGHNUT MACHINE OPERATOR HELPER DOUGHNUT MACHINE OPERATOR HELPER Joy Dominguez RN RN ak1 Mark Almaguer MD MD gs Corrections: (The following items were deleted from the chart) 06:33 05:58 Hospitalization Ordered by A Martin CHOWDHURY for Observation. Preliminary diagnosis is kl Heart failure; Other chronic obstructive pulmonary disease. Bed requested for Telemetry/MedSurg (observation). Status is Observation. Condition is Stable. Problem is new. Symptoms have improved. UTI on Admission? No. gs 07:59 06:33 06/19/2018 05:58 Hospitalization Ordered by A Martin CHOWDHURY for Observation. em Preliminary diagnosis is Heart failure; Other chronic obstructive pulmonary disease. Bed requested for Telemetry/MedSurg (observation). Status is Observation. Condition is Stable. Problem is new. Symptoms have improved. UTI on Admission? No. kl
[2018-06-19] MEDS ORDERED: ACETAMINOPHEN 500 MG TAB PO PRN (06:06)
[2018-06-19] MEDS ORDERED: METHYLPREDNISOLONE 40 MG INJ IV SCH (09:00)
[2018-06-19] MEDS: ASPIRIN EC 81 MG TAB PO SCH (10:05)
[2018-06-19] MEDS: IPRATROPIUM BROM 0.5MG/2.5ML NEB PRN ×2 (10:56→17:02)
[2018-06-19] MEDS: ALBUTEROL 2.5 MG/3 ML NEB SOL NEB PRN ×2 (10:56→17:02)
[2018-06-19] MEDS ORDERED: D50W 25 GM/50 ML SYRINGE IV PRN (11:37)
[2018-06-19] MEDS ORDERED: GLUCAGON 1 MG/VIAL IM PRN (11:37)
[2018-06-19] MEDS: METHYLPREDNISOLONE 40 MG INJ IV SCH ×3 (12:00→23:08)
[2018-06-19] MEDS: INSULIN -REGULAR HUMAN 50 UNIT/0.5 ML ML SQ SCH ×3 (12:07→21:00)
[2018-06-19] MEDS ORDERED: NA CHLORIDE 0.9% 1,000 ML IV PRN (15:02)
[2018-06-19] MEDS ORDERED: MIDODRINE HCL 5 MG TABLET PO PRN (15:38)
[2018-06-19] MEDS ORDERED: ALBUMIN HUMAN 25% 50 ML IV SCH (16:00)
[2018-06-19] MEDS: EPOETIN ALFA 10,000 UNIT/ML VIAL IV SCH (16:17)
[2018-06-19] MEDS: HEPARIN 5000 UNIT/ML 1 ML VIAL SQ SCH (21:00)
--- NOTE | 2018-06-20 01:09 | HP ---
Date of Admission: 06/19/2018 Chief Complaint: Shortness of breath and dizziness. History Of Present Illness: This is a 78-year-old male patient who has multiple comorbidities, has h ad multiple prior hospital admissions with COPD exacerbation, was doing fine in his normal usual stat e of health, taking all his medications regularly as he reports, and came into emergency room with sh ortness of breath that started as of Thursday, which is yesterday. The patient is having cough, conges tion, and denies any expectoration. Has wheezing with this. Has some nausea, but no vomiting. No d iarrhea, and he is having dizziness feeling along with the shortness of breath. No headaches. He ca me into emergency room yesterday with these complaints after he was evaluated in the ER. ER barbaar sorenson decided to discharge him to go home. The patient did not feel good at all and he did not feel comf ortable going home, so even after he got discharge from emergency room, he was in the emergency room waiting area in the [facility] and as his condition got worse, he was seen again in the emergency room sec ond time and was admitted to the hospital. When I saw him this morning, he was not feeling good at a ll, sitting at bedside. Allergies: TO IODINE. Medications: List reviewed. Review of Systems: Respiratory: As mentioned above. All other systems reviewed and negative. Social History: Negative for smoking, alcohol use. Family History: Significant for asthma, hypertension, breast cancer. Past Surgical History: AICD placement in June 2014, tracheostomy many years ago. Past Medical History: Significant for end-stage renal disease on hemodialysis, COPD, chronic systoli c congestive heart failure with ejection fraction around 20% to 25%, anemia due to chronic kidney dis ease, sleep apnea, coronary artery disease, diabetes mellitus, allergic rhinitis, diverticulosis, ost eoarthritis at multiple sites, gastroesophageal reflux disease, prostate cancer, cervical spondylosis with radiculopathy, and diverticulosis. Physical Examination: Vital Signs: Temperature 98, pulse 81, respiratory rate 18, blood pressure 104/69, height 5 feet 11 inches, weight 298 pounds. General: The patient appears weaker than normal, although sleepy and tired. HEENT: Head atraumatic, normocephalic. Conjunctivae nonerythematous. Sclerae white. Mouth, no thr ush or edema noted. Ears/Nose, no mass, lesion, discharge noted. Neck: Supple. No JVD, lymph nodes, bruit, thyromegaly noted. Lungs: Bilateral shallow air entry with wheezing in both lung [place]. Not using accessory muscles o f respiration. Heart: Normal heart sounds, no murmur or gallop. Abdomen: Soft, bowel sounds normal. No guarding, rigidity, tenderness, mass, hepatosplenomegaly, di stention, or bruit noted. Extremities: Bilateral leg edema unchanged from before. Skin: No rash, ulcer, cellulitis. Lymphatics: No lymph node enlargement in neck, supraclavicular, infraclavicular region. Neuro: No focal neurological deficit. Chest: Unremarkable. External Genitalia: Deferred. Rectal: Deferred. Laboratory Data: White count 7, hemoglobin 8.8, platelets 121. Blood gas; pH 7.49, pCO2 37, pO2 83. 8, saturation 96% on 21% FiO2. Sodium 140, potassium 3.8, chloride 101, bicarb 30, BUN 18, creatinin e 5.13, glucose 121. Liver function tests unremarkable. ProBNP 52,996. Chest x-ray, increased lung markings compared to normal but unchanged from before. Impression: 1.Acute exacerbation of chronic obstructive pulmonary disease. 2.End-stage renal disease, on hemodialysis. 3.Anemia due to chronic kidney disease. 4.Chronic systolic congestive heart failure. 5.Coronary artery disease. 6.Diabetes mellitus. 7.Allergic rhinitis. 8.Diverticulosis. 9.Osteoarthritis, multiple sites. 10.Gastroesophageal reflux disease. 11.Prostate cancer. Plan: We will admit the patient to hospital for further evaluation and management of this problem. The patient is appropriate for inpatient and is expected to spend 2 midnights in hospital. Home medi cations will be continued. DVT prophylaxis will be given using heparin. We will go ahead and give I V steroid oxygen nebulizer treatment. Consult driver service technician for dialysis, and I will see him tomorrow for followup. Details and plan of treatment discussed with the patient. ODESSA/PATRICK Voice ID: [id number]
[2018-06-20] MEDS: METHYLPREDNISOLONE 40 MG INJ IV SCH ×4 (05:26→23:41)
[2018-06-20] MEDS: AMIODARONE HCL 200 MG TAB PO SCH (08:50)
[2018-06-20] MEDS: ASPIRIN EC 81 MG TAB PO SCH (08:50)
[2018-06-20] MEDS: ALLOPURINOL 100 MG TAB PO SCH (08:50)
[2018-06-20] MEDS: INSULIN -REGULAR HUMAN 50 UNIT/0.5 ML ML SQ SCH ×4 (08:51→20:44)
[2018-06-20] MEDS: HEPARIN 5000 UNIT/ML 1 ML VIAL SQ SCH ×2 (08:51→20:44)
[2018-06-20] MEDS ORDERED: HOME MED 1 EA UNK (Omeprazole [Omeprazole] 20 MG) PO SCH (11:00)
[2018-06-20] MEDS: GABAPENTIN 100 MG CAP PO SCH ×3 (11:01→20:43)
[2018-06-20] MEDS: PANTOPRAZOLE 40MG TABLET PO SCH ×2 (11:01→18:53)
[2018-06-20] MEDS: CLOPIDOGREL 75 MG TABLET PO SCH (11:01)
[2018-06-20] MEDS: SEVELAMER CARBONATE 800 MG TABLET PO SCH ×2 (11:02→18:52)
[2018-06-20] MEDS: ALBUTEROL 2.5 MG/3 ML NEB SOL NEB PRN (11:13)
[2018-06-20] MEDS: IPRATROPIUM BROM 0.5MG/2.5ML NEB PRN (11:13)
--- NOTE | 2018-06-20 14:06 | RAD REPORT ---
EXAM DESCRIPTION: RAD - Chest Single View - 06/20/2018 1:53 pm CLINICAL HISTORY: COPD Chest pain. COMPARISON: Chest Single View dated 06/18/2018; Chest Single View dated 05/28/2018; Chest Pa And Lat (2 Views) dated 04/17/2018; Chest Single View dated 04/12/2018 FINDINGS: Portable technique limits examination quality. The lungs are grossly clear. Heart is moderately enlarged in size. Multilead pacer/defibrillator monica ce present. Tracheostomy tube is in place. IMPRESSION: No acute intrathoracic process suspected.
--- NOTE | 2018-06-20 16:03 | PN ---
Date of Progress Note: 06/20/2018 Subjective: The patient was seen this morning for followup. No new complaints or problems reported by him. He is sitting at bedside, feeling better today than yesterday. Not back to his normal basel ine yet, but definitely feels better than yesterday. He did have dialysis yesterday and he will have another dialysis tomorrow as he reports. No new complaints or problems reported. Objective: Vital Signs: Reviewed. HEENT: Unremarkable. Lungs: Bilateral good equal air entry. No rales. Minimum scattered wheezing present, but better to day than yesterday. Not in respiratory distress. Heart: Sounds normal. Abdomen: Soft. Bowel sounds normal. No guarding, rigidity, tenderness, distention. Extremities: Leg edema unchanged. Impression: 1.Acute exacerbation of chronic obstructive pulmonary disease. 2.Gastroesophageal reflux disease. 3.End-stage renal disease, on hemodialysis. 4.Anemia due to chronic kidney disease. 5.Chronic systolic congestive heart failure. Plan: The patient was complaining of some heartburn, indigestion this morning and his omeprazole was ordered along with other usual home medications will be continued. We will continue IV steroid, neb ulizer treatment, and I have asked him to see if he can talk to his recreation program specialist to get dialysis done early tomorrow morning and hopefully if his condition is stable, we might be able to discharge him tomorrow after dialysis. ODESSA/MODL Voice ID: [id number] Report ID: [id number]
[2018-06-20] MEDS: EPOETIN ALFA 10,000 UNIT/ML VIAL IV SCH (16:09)
[2018-06-20] MEDS ORDERED: PANTOPRAZOLE 40MG TABLET PO SCH (16:30)
--- NOTE | 2018-06-20 17:14 | CON ---
Date of Consultation: 06/20/2018 Additional Consulting Physician: Anmol Salazar MD Reason For Consultation: Elevated BUN and creatinine, over volume, respiratory distress. History Of Present Illness: This is a pleasant 78-year-old gentleman, well known to me from the dial ysis with significant past medical history of COPD, status post trach, oxygen dependent; end-stage re nal disease, on hemodialysis Thursday, Thursday, Thursday at [facility]; coronary artery disease, complicated with congestive heart failure; diabetes, complicated with neuropathy and nephro jed, the patient recently admitted to [facility] with over volume. At that time, we were di alyzing him daily, tolerated, then the patient went to the unit, again being dialyzed aggressively in the unit, last dialysis was Thursday, we managed to remove 2.7 L. The patient came complaining of matilde rtness of breath, chest tightness, for that reason, admitted, suspect COPD exacerbation/CHF exacerbat ion, for that reason, we have been consulted. We took the patient for urgent dialysis. We did seque ntial yesterday and we managed to remove 3 L. According to the patient, the patient did not feel any difference before or after dialysis. The patient's blood pressure was marginal on the 100, for that reason, we used sodium module. Past Medical History: Include: 1.End-stage renal disease, on hemodialysis Thursday, Thursday, Thursday. 2.COPD, status post trach. 3.Hypertension, currently low blood pressure. 4.Coronary artery disease, complicated with congestive heart failure. 5.Diabetes, complicated with neuropathy and nephropathy. Allergies: NO KNOWN DRUG ALLERGIES. Past Surgical History: Includes tracheostomy and AV fistula. Review of Systems: Head and Neck: No red eye. No ear pain. GI: No nausea. No vomiting. : No polyuria. No dysuria. No hematuria. Genetics Teacher: Not applicable. Respiratory: Has shortness of breath. Has a trach. Has cough. Cardiovascular: Has chest tightness. Endocrine: No polydipsia. Skin: No rash. Neuro: Has neuropathy. Home Medications: Include: 1.Zinc sulfate. 2.Vitamin E. 3.Renvela 2 tablets with each meal. 4.Nitroglycerin as needed. 5.Omeprazole. 6.Gabapentin. 7.Plavix. 8.Cholecalciferol. 9.Tums. 10.Aspirin. 11.Amiodarone. 12.Allopurinol. Current Medications: In the hospital include amiodarone, aspirin, Epogen, gabapentin, midodrine, archer toprazole, and Renvela. Physical Examination: Vital Signs: When I saw the patient, the patient lying in bed comfortable, on the trach. Chest: Wheezing bilateral. Heart: S1, S2. Systolic murmur. Abdomen: Soft, nontender. Extremities: +3 edema. Laboratory Data: Lab data for the patient; WBC 2.5, H and H 9/28.5, platelet 172. Latest lab data d one in the ER. I do not have lab of today. H and H 8.8/27.9. Sodium 140, potassium 3.8, bicarb 30, BUN 18, creatinine 5.1, calcium 9.1, magnesium 2.1. Assessment And Plan: 1.End-stage renal disease, over volume with significant peripheral edema, status post dialysis yeste rday. I am going to go ahead and do another session of sequential dialysis today, then we will do an other 1 tomorrow, try to establish better volume status for the patient and we will follow up. 2.Hypertension, currently low blood pressure. We will keep utilizing midodrine to support the blood pressure for ultrafiltration. 3.Anemia of chronic kidney disease. Continue Epogen. 4.Secondary hyperparathyroidism. Continue binder. 5.Chronic obstructive pulmonary disease exacerbation as by primary. 6.Diabetes, as by primary. ROLANDO/PATRICK Voice ID: [id number] Report ID: [id number]
[2018-06-21] MEDS: ALBUTEROL 2.5 MG/3 ML NEB SOL NEB PRN ×2 (01:00→14:01)
[2018-06-21] MEDS: IPRATROPIUM BROM 0.5MG/2.5ML NEB PRN ×2 (01:00→14:01)
[2018-06-21 04:39] VITALS: BMI 40.2
[2018-06-21] MEDS: METHYLPREDNISOLONE 40 MG INJ IV SCH ×2 (06:06→12:07)
[2018-06-21] MEDS: GABAPENTIN 100 MG CAP PO SCH ×2 (08:06→14:00)
[2018-06-21] MEDS: SEVELAMER CARBONATE 800 MG TABLET PO SCH ×2 (08:06→12:06)
[2018-06-21] MEDS: ALLOPURINOL 100 MG TAB PO SCH (08:06)
[2018-06-21] MEDS: PANTOPRAZOLE 40MG TABLET PO SCH (08:06)
[2018-06-21] MEDS: AMIODARONE HCL 200 MG TAB PO SCH (08:06)
[2018-06-21] MEDS: ASPIRIN EC 81 MG TAB PO SCH (08:07)
[2018-06-21] MEDS: CLOPIDOGREL 75 MG TABLET PO SCH (08:07)
[2018-06-21] MEDS: INSULIN -REGULAR HUMAN 50 UNIT/0.5 ML ML SQ SCH ×2 (08:07→11:30)
[2018-06-21] MEDS: HEPARIN 5000 UNIT/ML 1 ML VIAL SQ SCH (08:08)
[2018-06-21 08:58] VITALS: BP 103/59; TEMP 97.4
[2018-06-21 15:05] VITALS: O2SAT 100
--- NOTE | 2018-06-22 02:20 | PN ---
Date of Progress Note: 06/21/2018 Chief Complaint: Congestive heart failure with systolic and diastolic dysfunction, COPD exacerbation , and fluid overload. History Of Present Illness: The patient presented to the hospital because of shortness of breath and generalized weakness. He has history of intradialytic hypotension. Midodrine was used for blood pr essure support to facilitate ultrafiltration. Review of Systems: The patient is feeling better. Physical Examination: Lungs: Crackles bilaterally at bases. Heart: S1, S2. Abdomen: Soft, benign. Extremities: Edema 1+ in both legs. Laboratory Data: Blood work; magnesium 2.1, sodium 142, potassium 3.8, bicarbonate 30, BUN 18, and c reatinine 5.1. Impression And Plan: 1.End-stage renal disease. The patient has fluid overload. 2.Anasarca. The patient is undergoing dialysis to control volemia. Monitor electrolytes. Adjust d ialysis parameters to control azotemia and to prevent hyperkalemia. The patient will continue renal diet and p.o. fluid restriction. 3.Intradialytic hypotension. Continue midodrine. 4.Anemia of chronic kidney disease. Continue JAIRO. Hemoglobin level is acceptable. 5.Secondary hyperparathyroidism. Continue binders and low-phosphorus diet. 6.COPD exacerbation, per primary team. EB/MODL Voice ID: [id number] Report ID: [id number]
--- NOTE | 2018-06-23 06:42 | DS ---
Date of Discharge: 06/21/2018 Disposition: Discharged to go home. Physical Examination: HEENT: Unremarkable. Lungs: Clear to auscultation. Heart: Sounds normal. Abdomen: Soft. Bowel sounds normal. No guarding, rigidity, tenderness, or distention. Extremities: Leg edema present, unchanged. Hospital Course: This is a 78-year-old pleasant male patient admitted to the hospital with complaint s of shortness of breath and feeling dizzy. Please see dictated H and P for more information. After the patient was evaluated in the ER, he was admitted to the hospital and was treated for acute exace rbation of COPD problem. His chest x-ray showed increased lung markings, unchanged from before. Whi te count was normal at 7, hemoglobin 8.8, platelets 121. Blood gas had shown pH 7.49, pCO2 37, PO2 8 3.8, saturation 96% on 21% FiO2. Electrolytes were sodium 140, potassium 3.8 chloride 101, bicarb 30 , BUN 18, creatinine 5.13, glucose 121. Liver function tests unremarkable. After he was admitted to the hospital, he was treated for COPD exacerbation with oxygen nebulizer treatment, IV steroids, and Nephrology consultation was requested for dialysis support and the patient received dialysis per nep hrologist. His shortness of breath problem improved and he was back to his baseline by the time he w as discharged. During his recent hospital admission, we started him on Trelegy. This was just start ed about 2 weeks ago or so when he got it from the mail order pharmacy. So, at this point, it is too early for us to go ahead and make any other changes in his medication. I did inform him that if he continues to have this kind of recurrent problem with COPD exacerbation, we will have to consider put ting him on chronic steroid therapy. The patient was discharged to go home in stable condition. Final Diagnoses: 1.Acute exacerbation of chronic obstructive pulmonary disease. 2.End-stage renal disease, on hemodialysis. 3.Anemia due to chronic kidney disease. 4.Chronic systolic congestive heart failure. 5.Coronary artery disease. 6.Diabetes mellitus. 7.Allergic rhinitis. 8.Diverticulosis. 9.Osteoarthritis, multiple sites. 10.Gastroesophageal reflux disease. 11.Prostate cancer. Discharge Medications And Instructions: 1.Continue all prior home medications. 2.Take prednisone 10 mg, the patient to take 2 tablets daily for 4 days, then 1 tablet daily for 4 d ays, then half tablet daily for 4 days, then stop. 3.Follow up at my office per scheduled appointment. ODESSA/PATRICK Voice ID: [id number] Report ID: [id number]
== END 2018-06-21 15:00 | disposition home or self-care (01) | DRG 190 ==
LOC: ER 04:33 → ERHOLD 06:04 → INTOOBSV 06:04 → OBSVTOIN 06:04 → 4TH 07:49 → OBSVTOIN 11:30
PROVIDERS: ADMIT Internal Medicine; ATTEND Internal Medicine
PROC: 5A1D70Z Performance of Urinary Filtration, Intermittent, Less than 6 Hours Per Day (ICD-10-PCS; principal; 2018-06-19)
PROC: 5A1D70Z Performance of Urinary Filtration, Intermittent, Less than 6 Hours Per Day (ICD-10-PCS; 2018-06-20)
PROC: 5A1D70Z Performance of Urinary Filtration, Intermittent, Less than 6 Hours Per Day (ICD-10-PCS; 2018-06-21)
DX: J44.1 Chronic obstructive pulmonary disease with (acute) exacerbation (principal); N18.6 End stage renal disease; I13.2 Hypertensive heart and chronic kidney disease with heart failure and with stage 5 chronic kidney disease, or end stage renal disease; I50.22 Chronic systolic (congestive) heart failure; N25.81 Secondary hyperparathyroidism of renal origin; Z88.1 Allergy status to other antibiotic agents; Z88.5 Allergy status to narcotic agent; Z91.013 Allergy to seafood; Z95.810 Presence of automatic (implantable) cardiac defibrillator; D63.1 Anemia in chronic kidney disease; I25.10 Atherosclerotic heart disease of native coronary artery without angina pectoris; J30.9 Allergic rhinitis, unspecified; K57.90 Diverticulosis of intestine, part unspecified, without perforation or abscess without bleeding; M19.90 Unspecified osteoarthritis, unspecified site; K21.9 Gastro-esophageal reflux disease without esophagitis; Z85.46 Personal history of malignant neoplasm of prostate; E11.22 Type 2 diabetes mellitus with diabetic chronic kidney disease; Z99.2 Dependence on renal dialysis; Z79.84 Long term (current) use of oral hypoglycemic drugs; Z99.81 Dependence on supplemental oxygen; E11.21 Type 2 diabetes mellitus with diabetic nephropathy; Z79.02 Long term (current) use of antithrombotics/antiplatelets; Z79.82 Long term (current) use of aspirin; I95.3 Hypotension of hemodialysis
CPT/HCPCS: 36415; 71045; 80048; 80076; 82805; 82962; 83735; 83880; 84484; 85025; 85610; 90935; 93005; 94640; 94660; 94760; 99285; G0378; J1644; J2920; J7512; Q4081

== ENCOUNTER 2018-07-06 21:30 | Inpatient (IN) | payer OTHER, MEDICARE ==
--- OUTSIDE RECORDS SUMMARY | 2018-07-06 21:33 | XMS REPORT ---
:1940 [facility] Address [address] [place] [address] Dr. Vargas [address] [place] [address] Care Team Providers Name Role Phone Unavailable Unavailable Unavailable Problems This patient has no known problems. Allergies, Adverse Reactions, Alerts This patient has no known allergies or adverse reactions. Medications This patient has no known medications.
--- OUTSIDE RECORDS SUMMARY | 2018-07-06 21:33 | XMS REPORT | Clinical Summary ---
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 stable 2017 angina pectoris Automatic [...] Dx); MD Susan Coronary artery disease involving hoonah coronary artery of hoonah heart without angina pectoris 07/30/2017 Surgery Procedural Ascencion Quintero Cv selective Cardiology MD Susan coronary angiography [82612 (CPT)] 07/30/2017 Hospital Encounter Procedural Ascencion Quintero PAD (peripheral artery disease); Cardiology MD Susan Coronary artery disease involving hoonah coronary artery of hoonah heart without angina pectoris; Chest pain, unspecified type; Unstable angina 07/22/2017 Orders Only Cardiology Justin Ojeda MA PAD (peripheral artery disease) (Primary Dx); Coronary artery disease involving hoonah coronary artery of hoonah heart without angina pectoris; Chest pain, unspecified type; Unstable angina 07/21/2017 Office Visit Cardiology Ascencion Quintero Angina pectoris (Primary Dx ); MD Susan Systolic congestive heart failure, unspecified congestive heart failure chronicity; PAD (peripheral artery disease); Coronary artery disease of hoonah artery of hoonah heart with stable angina pectoris after 07/05/2017 Family History Relation Name Status Comments Father [...] Taken Blood Pressure 108/53 04/27/2018 11:28 AM FUEL STORAGE TECHNICIAN Pulse 94 04/27/2018 11:28 AM FUEL STORAGE TECHNICIAN Temperature 36.4 C (97.6 F) 07/30/2017 11:00 AM CDT Respiratory Rate 20 07/30/2017 4:15 PM CDT Oxygen Saturation 98% 07/30/2017 3:45 PM CDT Inhaled Oxygen Concentration - - Weight 138 kg (305 lb) 04/27/2018 11:28 AM FUEL STORAGE TECHNICIAN Height 180.3 cm (5' 11") 04/27/2018 11:28 AM FUEL STORAGE TECHNICIAN Body Mass Index 42.54 04/27/2018 11:28 AM FUEL STORAGE TECHNICIAN Plan of Treatment Date Type Specialty Care Team Description 10/26/2018 Office Visit Cardiology Ascencion Quintero MD [address] [address] Health Maintenance Due Date Last Done Comments SHINGLES VACCINES (#1) 1989 65+ PNEUMOCOCCAL VACCINE (1 of 2 - PCV13) 01/17/2004 PNEUMOCOCCAL POLYSACCHARIDE VACCINE AGE 65 AND OVER 01/17/2004 INFLUENZA VACCINE 11/11/2017 Implants Implanted Type Area Associate Professor Of Communication Device Shelf Model / Identifier Expiration Serial / Date Lot Device Vasclr Clsr Vasoactive Intstnl Peptd 8fr Angio-Seal - [id number] Cardiovascular N/A: 06/10/2017 [id number] / Implanted: 08/07/2016 (Quantity not on file) Implants N/A / [id number] Stent Bili Protege Everflex Slf-Xpndbl 120cm [id number] - [id number] Coronary Stents N/A: [employer] 05/03/2017 [id number] 120 / Implanted: 08/07/2016 (Quantity not on file) N/A / [id number] Procedures Procedure Name Priority Date/Time Associated Comments Diagnosis ECHOCARDIOGRAM 2D Routine 05/03/2018 5:01 Cardiomyopathy, Results for this COMPLETE W MMODE PM FUEL STORAGE TECHNICIAN unspecified type procedure are in SPECTRAL COLOR DOPPLER (HCC) the results (10946) Chest pain, section. unspecified type ECG 12-LEAD Routine 04/27/2018 11:33 Cardiomyopathy, Results for this AM FUEL STORAGE TECHNICIAN unspecified type procedure are in (HCC) the results section. CV SELECTIVE CORONARY Routine 07/30/2017 2:17 Unstable angina Results for this ANGIOGRAPHY PM CDT PAD (peripheral procedure are in artery disease) the results Coronary artery section. disease involving hoonah coronary artery of hoonah heart without angina pectoris Chest pain, unspecified [...] are in SPECTRAL COLOR DOPPLER the results (58930) section. ECG 12-LEAD Routine 07/21/2017 9:06 Systolic congestive Results for this AM CDT heart failure, procedure are in unspecified the results congestive heart section. failure chronicity after 07/05/2017 Results Echocardiogram complete w contrast and 3D if needed (05/03/2018 5:01 PM FUEL STORAGE TECHNICIAN) Narrative Performed At [facility] Echocardiography Report Pat.Name:DILLON GARIBAY Pat.ID:[id number] .Date: 05/03/2018 Refer.MD:ASCENCION QUINTERO MD Exam Time: 3:40:00 PMStudy Type:Routine Echo Height:71inWeight: 305lb BSA: 2.53 m2 DOBAge:1940,78Y Sex: MALEBP:108/53 HR:70 bpm Sonogrphr: EZRA Costello FASE Pat. Stat.:OutpatientRoom:[facility] Study Status:Final Echo Event ID:[id number] Order ID:[id number] Reason for Study:Cardiomyopathy with no status change [...] RAPof 5 mmHg. MEASUREMENTS: 2D Parasternal Long Fieldon LVOT 2.2 cmLA Ds4.9 cm LVIDd6 cmIndex2.4 cm/m Ao An1.9 cm LVIDs5.1 cmAo Rtd 3.4 cm Index1.4 cm/m LV%fs 13.9 % LV Ucul869.8 g(122-174) IVSd 1.3 cmLVM Jgvje591.4 g/m2 LVPWd1.3 cmRWT0.5 LA Sng Plane LA [...] Radiology Results In - 05/04/2018 2:44 PM FUEL STORAGE TECHNICIAN [facility] Echocardiography Report Pat.Name: DILLON GARIBAY Pat.ID: [id number] .Date: 05/03/2018 Refer.MD: ASCENCION QUINTERO MD Exam Time: 3:40:00 PM Study Type:Routine Echo Height: 71in Weight: 305lb BSA: 2.53 m2 Age: 1001/16/1940,78Y Sex: MALE BP: 108/53 HR: 70 bpm Sonogrphr: EZRA Costello FASE Pat. Stat.:Outpatient Room: [facility] Study Status:Final Echo Event ID:[id number] Order ID: [id number] Reason for Study:Cardiomyopathy with no status change [...] of 5 mmHg. MEASUREMENTS: 2D Parasternal Long Fieldon LVOT 2.2 cm LA Ds 4.9 cm [...] PM Ayo Polk M.D. Performing Organization Address [facility] Phone Number [facility] [address] [place] [address] ECG 12 lead (04/27/2018 11:33 AM FUEL STORAGE TECHNICIAN)Only the most recent of2 resultswithin the time period is included. Ventricular rate 87 [facility] MUSE Atrial rate 87 [facility] MUSE GA interval 164 [facility] MUSE QRSD interval 154 [facility] MUSE QT interval 444 [facility]USE QTC interval 534 [facility] MUSE P axis 1 60 [facility] MUSE QRS axis 1 -16 [facility] MUSE T wave axis -73 [facility] MUSE EKG impression Atrial-sensed ventricular-paced [facility] MUSE rhythm-Abnormal ECG-In automated comparison with ECG of 21-JUL-2017 09:06,-Electronic ventricular pacemaker has replaced Sinus rhythm- Narrative Performed At Performing Organization Address [facility] Phone Number [facility] MUSE [address] [place] [address] Cv crime lab technician procedure (07/30/2017 2:17 PM CDT) Narrative Performed At 1. Non obstructive CAD [facility] 2. 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 Prothrombin time 14.5 12.0 - 15.0 sec [facility] DEPARTMENT OF PATHOLOGY AND GENOMIC MEDICINE INR 1.1 [facility] DEPARTMENT OF Comment: PATHOLOGY AND GENOMIC The International Normalized Ratio (INR) is a therapeutic MEDICINE monitoring tool for patients who are stable on oral anticoagulant therapy. An INR of 2.0-3.0 is suggested for deep vein thrombosis/pulmonary embolism. Specimen Blood Performing Organization Address [facility] Phone Number [facility] DEPARTMENT OF PATHOLOGY AND [address] [place] [address] [employer] MEDICINE Estimated GFR (07/30/2017 11:39 AM CDT) GFR Non Af Amer 8 (A) mL/min/1.73 m2 [facility] DEPARTMENT OF PATHOLOGY AND GENOMIC MEDICINE GFR Af Amer 10 (A) mL/min/1.73 m2 [facility] DEPARTMENT OF Comment: PATHOLOGY AND GENOMIC Chronic [...] Americans. Specimen Plasma specimen Performing Organization Address [facility] Phone Number [facility] DEPARTMENT OF PATHOLOGY AND [address] [place] [address] [employer] CK-MB (07/30/2017 11:39 AM CDT) CK-MB 1.3 1.0 - 10.4 ng/mL [facility] DEPARTMENT OF PATHOLOGY Comment: AND [employer] As of Aug 11 2017, this test will no longer be available in [facility]. Specimen Plasma specimen Narrative Performed At [facility] to perform testing, specimen is [facility] DEPARTMENT OF PATHOLOGY AND GENOMIC HEMOLYZED.Recollect MEDICINE requested for K (tests).KENDALL MIRELES/MIKA (name/location) notified by PR1 (tech ID) at07/30/201712:35(date/time). Credit issued. Performing Organization Address City/State/Zipcode Phone Number [facility] DEPARTMENT OF PATHOLOGY AND [address] [place], [place] [id number] [employer] Basic metabolic panel (07/30/2017 11:39 AM CDT) Sodium 136 135 - 148 mEq/L [facility] DEPARTMENT OF PATHOLOGY AND GENOMIC MEDICINE Potassium SEE COMMENT 3.5 - 5.0 mEq/L [facility] DEPARTMENT OF PATHOLOGY Comment: AND [employer] Footnote--------- HEMOLYZED Chloride 94 (L) 98 - 112 mEq/L [facility] DEPARTMENT OF PATHOLOGY AND GENOMIC MEDICINE CO2 28 24 - 31 mEq/L [facility] DEPARTMENT OF PATHOLOGY AND GENOMIC MEDICINE Anion gap 14 7 - 15 mEq/L [facility] DEPARTMENT OF PATHOLOGY Comment: AND [facility] Starting from July , anion gap calculation no longer incorporates potassium. Please note the change. BUN 20 8 - 23 mg/dL [facility] DEPARTMENT OF PATHOLOGY AND GENOMIC MEDICINE Creatinine 6.4 (H) 0.7 - 1.2 mg/dL [facility] DEPARTMENT OF PATHOLOGY AND GENOMIC MEDICINE Glucose 108 (H) 65 - 99 mg/dL [facility] DEPARTMENT OF PATHOLOGY AND GENOMIC MEDICINE Calcium 9.4 8.8 - 10.2 mg/dL [facility] DEPARTMENT OF PATHOLOGY AND GENOMIC MEDICINE Specimen Plasma specimen Performing Organization Address City/[facility] Phone Number [facility] DEPARTMENT OF PATHOLOGY AND [address] [place] [address] [facility] COPY RECEIVED FROM: (07/27/2017 11:55 AM CDT) Copy received from: [facility] Comment: [address]NA [address] [facility] [address] [place] [address] Narrative Performed At FASTING:NO [facility] FASTING: NO Performing Organization Address City/[facility] Phone Number [facility] COPY(IES) SENT TO: (07/27/2017 11:55 AM CDT) Copies/mL [facility] Comment: DONNA KRUGER [address] [facility] [address] [place] [address] Narrative Performed At FASTING:NO [facility] FASTING: NO Performing Organization Address [facility] Phone Number [facility] Partial thromboplastin time, activated (07/27/2017 11:55 AM CDT) PTT 33 22 - 34 sec [employer] [place] Comment: This test has not been validated for monitoring unfractionated heparin therapy. For testing that is validated for this type of therapy, please refer to the Heparin Anti-Xa assay (test code 31326). For additional information, please refer to http://education.My eShoe/faq/OCR588 (This link is being provided for informational/educational purposes only.) Narrative Performed At FASTING:NO [facility] FASTING: NO Resulting Agency Comment Performing Organization Information: Site ID: [id number] Name: [facility] Address: [address] [place] [phone] Director: Lea Hanna Performing Organization Address City/[facility]/Zipcode Phone Number [employer] [address] [address] CBC with platelet and differential (07/27/2017 11:55 AM CDT) WBC 5.4 3.8 - 10.8 Thousand/uL [employer] [place] RBC 3.07 (L) 4.20 - 5.80 Million/uL [employer] [place] HGB 9.6 (L) 13.2 - 17.1 g/dL [employer] [place] HCT 29.6 (L) 38.5 - 50.0 % [employer] [place] MCV 96.4 80.0 - 100.0 fL [employer] [place] MCH 31.3 27.0 - 33.0 pg [employer] [place] MCHC 32.4 32.0 - 36.0 g/dL [employer] [place] RDW 15.9 (H) 11.0 - 15.0 % [employer] [place] Platelet count 161 140 - 400 Thousand/uL [facility] [employer] [place] MPV 11.8 7.5 - 12.5 fL [employer] [place] Neutrophils, absolute 3,218 1,500 - 7,800 cells/uL [employer] [place] Lymphocytes, absolute 1,161 850 - 3,900 cells/uL [employer] [place] Monocytes, absolute 562 200 - 950 cells/uL [employer] [place] Eosinophils, absolute 400 15 - 500 cells/uL [employer] [place] Basophils, absolute 59 0 - 200 cells/uL [employer] [place] Neutrophils 59.6 % [employer] [place] Lymphocytes 21.5 % [employer] [place] Monocytes 10.4 % [employer] [place] Eosinophils 7.4 % [employer] [place] Basophils + RC 1.1 % [employer] [place] Specimen Blood Narrative Performed At FASTING:NO [facility] FASTING: NO Resulting Agency Comment Performing Organization Information: Site ID: [id number] Name: [facility] Address: [address] [place] [address] Director: Lea Hanna Performing Organization Address City/State/Zipcode Phone Number [employer] [address] [address] Comprehensive metabolic panel (07/27/2017 11:55 AM CDT) Glucose 168 (H) 65 - 139 mg/dL [facility] Comment: [place] Non-fasting reference interval BUN, whole blood 11 7 - 25 mg/dL [employer] [facility] Creatinine 4.59 (H) 0.70 - 1.18 [employer] Comment: mg/dL [place] For patients >49 years of age, the reference limit for Creatinine is approximately 13% higher for people identified as -Cuban. EGFR Non-Afr. Cuban 11 (L) > OR=60 [facility] mL/min/1.73m2 [place] EGFR 13 (L) > OR=60 [facility] mL/min/1.73m2 [place] BUN/creatinine ratio 2 (L) 6 - 22 (calc) [employer] [place] Sodium 138 135 - 146 mmol/L [employer] [place] Potassium 3.9 3.5 - 5.3 mmol/L [employer] [place] Chloride 99 98 - 110 mmol/L [employer] [place] CO2 29 20 - 31 mmol/L [employer] [place] Calcium 9.2 8.6 - 10.3 mg/dL [facility] [employer] [place] Protein 7.3 6.1 - 8.1 g/dL [employer] [place] Albumin, S 4.1 3.6 - 5.1 g/dL [facility] Globulin, total 3.2 1.9 - 3.7 g/dL [employer] [facility] (calc) [place] Albumin/globulin ratio 1.3 1.0 - 2.5 (calc) [employer] [facility] Total bilirubin 0.4 0.2 - 1.2 mg/dL [facility] Alkaline phosphatase 135 (H) 40 - 115 U/L [facility] [employer] [place] AST 11 10 - 35 U/L [facility] ALT 7 (L) 9 - 46 U/L [employer] [place] Specimen Blood Narrative Performed At FASTING:NO [facility] FASTING: NO Resulting Agency Comment Performing Organization Information: Site ID: [id number] Name: [facility] Address: [address] [place] [phone] Director: Lea Hanna Performing Organization Address City/State/Zipcode Phone Number [place] [phone] Echocardiogram complete w contrast and 3D if needed (07/21/2017 11:22 AM CDT) Narrative Performed At [facility] Echocardiography Report Pat.Name:DILLON GARIBAY Pat.ID:[id number] St.Date: 07/21/2017 Refer.MD:ASCENCION QUINTERO MD Exam Time: 11:56:00 AM Study Type:Routine Echo Height:71inWeight: 307lb BSA: 2.53 m2 DOBAge:1940,77Y Sex: MALEBP:117/58 HR:84 bpmSonogrphr: La Kumar RDCS, RVT Pat. Stat.:OutpatientRoom:[facility] Study Status:Final Echo Event ID:[id number] Order ID:[id number] Reason for Study:Systolic congestive heart failure, coronary [...] of 10 mmHg. MEASUREMENTS: 2D Parasternal Long Fieldon LVOT 2.1 cmLA Ds5 cm LVIDd6 cmIndex2.4 cm/m Ao An2.2 cm LVIDs5.1 cmAo Rtd 2.6 cm Index1 cm/m LV%fs 16 % LV Yqsn537.6 g(122-174) IVSd 1.4 cmRWT0.5 LVPWd1.5 cm LA Sng Plane LA Area 22.5 cm2(8.8-23.4) LA Vol74 ml Index29.3 ml/m LA LngAx 5.7 cm DOPPLER AV For Flow/Valve Assess AV pkVel 280 cm/s (100-170) AV ET330 msec AV mnVel 194.9 cm/Mariah AC/ET 0.4 AV pkPG 31.4 mmHgAV TVI64.3 cm AV Mean G 18.3 mmHgAVpkAcRt 48487.2 cm/s2 AV AC140 msec (83-118) AV Area-Cont. Eq. LVOT Area3.5 cm2 AV TVI64.3 cm LVOT TVI17.3 cmAV Area0.9 cm2(3-5) AV SV 59.8 ml Signed 07/21/2017 3:58:00 PM Gloria Lira M.D. Procedure Note Interface, Radiology Results In - 08/11/2017 11:05 AM CDT [facility] Echocardiography Report Pat.Name: DILLON GARIBAY Pat.ID: [id number] .Date: 07/21/2017 Refer.MD: ASCENCION QUINTERO MD Exam Time: 11:56:00 AM Study Type:Routine Echo Height: 71in Weight: 307lb BSA: 2.53 m2 Age: 1001/16/1940,77Y Sex: MALE BP: 117/58 HR: 84 bpm Sonogrphr: La Kumar RDCS, RVT Pat. Stat.:Outpatient Room: [facility] Study Status:Final Echo Event ID:[id number] Order ID: [id number] Reason for Study:Systolic congestive heart failure, coronary [...] of 10 mmHg. MEASUREMENTS: 2D Parasternal Long Fieldon LVOT 2.1 cm LA Ds 5 cm [...] cm AV Mean G 18.3 mmHg AVpkAcRt 91400.2 cm/s2 AV AC 140 msec (83-118) AV Area-Cont. Eq. LVOT Area 3.5 cm2 AV TVI 64.3 cm LVOT TVI 17.3 cm AV Area 0.9 cm2 (3-5) AV SV 59.8 ml Signed 07/21/2017 3:58:00 PM Gloria Lira M.D. Performing Organization Address City/State/Zipcode Phone Number [facility] [address] [place] [address] after 07/05/2017 Insurance Payer Benefit Plan / Group Subscriber ID Type Phone Address MEDICARE MEDICARE PART A AND B xxxxxxxxxx Medicare [place], [place] AARP AARP SUPPLEMENT xxxxxxxxxxx Commercial (Home) [phone] [place], [place] (Work) [address] Advance Directives Patient has advance care planning documents on file. For more information, please contact:[address] [place] [address]
[2018-07-06] MEDS ORDERED: ALBUTEROL 2.5 MG/3 ML NEB SOL ONE (22:35)
[2018-07-06] MEDS ORDERED: IPRATROPIUM BROM 0.5MG/2.5ML ONE (22:35)
[2018-07-06 23:08] LABS: Arterial Blood Carboxyhemoglob 1.7 % (0-1.5); Blood Gas Oxyhemoglobin 94.5 % (94-97); Blood O2 Saturation 96.9 % (92-98.5)
[2018-07-06 23:09] LABS: Absolute Lymphocytes (CBC) 1.4 K/uL (0.7-4.9); Absolute Monocytes 0.9 K/uL (0.1-1.3); Absolute Neutrophil 5.4 K/uL (1.8-8.0); Basophils % 1.2 % (0-1.3); Eosinophils % 1.2 % (0-4.4); Hematocrit 28.9 % (39.6-49.0); Lymphocytes % 17.6 % (15.3-44.8); MPV 10.4 fL (7.6-11.3); Monocytes % 11.1 % (3.3-12.3); RBC Red Blood Cell Count 2.94 M/uL (4.33-5.43)
[2018-07-06 23:10] LABS: Protime INR 1.11
[2018-07-07 00:22] LABS: Albumin 3.6 g/dL (3.4-5.0); Bilirubin Direct 0.1 mg/dL (0-0.2); Bilirubin Total 0.4 mg/dL (0.2-1.0); Magnesium 2.2 mg/dL (1.8-2.4); Potassium 5.4 mmol/L (3.5-5.1); Protein, Total 7.4 g/dL (6.4-8.2); Troponin (Emerg Dept Use Only) 0.07 ng/mL (0.0-0.045)
--- NOTE | 2018-07-07 01:33 | EDPHYS ---
Physician Documentation [facility] Name: Sergio Perez Age: 78 yrs Sex: Male : 1940 Arrival Date: 07/06/2018 Time: 21:31 Bed 19 Private MD: ED Physician Awais Lanza HPI: 07/06 22:10 This 78 yrs old Black Male presents to ER via EMS with complaints of Breathing pkl Difficulty. 22:10 The patient has shortness of breath at rest. Onset: The symptoms/episode began/occurred pkl yesterday. The patient has experienced similar episodes in the past, several times. Historical: - Allergies: 21:50 Cipro; ed1 21:50 Demerol; ed1 21:50 Iodine; ed1 21:50 SHELLFISH; ed1 - Home Meds: 21:50 albuterol sulfate 2.5 mg /3 mL (0.083 %) Inhl nebu 1 vial daily [Active]; allopurinol ed1 200 mg Oral 2 tabs daily [Active]; amiodarone 200 mg Oral tab 0.5 tab daily [Active]; aspirin 81 mg Oral TbEC 1 tab twice daily [Active]; clopidogrel 75 mg Oral tab 1 tab once daily [Active]; Ferrous Sulfate 65 mg Oral 1x daily [Active]; fluticasone 50 mcg/actuation nasal spsn 1 spray 2 times per day [Active]; gabapentin Oral 1 tab 3 times per day [Active]; indura 800 mg 2 tabs before each meal TID [Active]; ipratropium bromide 0.02 % inhalation soln 2.5 mL 4 times per day [Active]; nitroglycerin 0.4 mg Oral as needed [Active]; omeprazole 20 mg Oral TbEC twice a day [Active]; Tums Oral 2 tabs per meal [Active]; vitamin A 8,000 unit Oral cap 1 cap once daily [Active]; vitamin d1 tablet 2000 IU daily [Active]; zinc sulfate 220 (50) mg Oral cap daily [Active]; - PMHx: 21:50 CHF; COPD; Diabetes - NIDDM; Dialysis; M-W-F; ESRD; GERD; Gout; Hypertension; ed1 Pacemaker; with defib; - PSHx: 21:50 Cholecystectomy; tracheostomy; Appendectomy; ed1 - Immunization history:: Adult Immunizations up to date. - Social history:: Smoking status: Patient/guardian denies using tobacco. - Ebola Screening: : Patient negative for fever greater than or equal to 101.5 degrees Fahrenheit, and additional compatible Ebola Virus Disease symptoms Patient denies exposure to infectious person Patient denies travel to an Ebola-affected area in the 21 days before illness onset No symptoms or risks identified at this time. ROS: 22:19 Eyes: Negative for injury, pain, redness, and discharge, ENT: Negative for injury, pkl pain, and discharge, Neck: Negative for injury, pain, and swelling, Cardiovascular: Negative for chest pain, palpitations, and edema. 22:19 Respiratory: Positive for shortness of breath, at rest. wheezing. 22:19 Abdomen/GI: Negative for abdominal pain, nausea, vomiting, and diarrhea. 22:19 Back: Negative for acute changes. 22:19 : Negative for urinary symptoms. 22:19 MS/extremity: Negative for acute changes. 22:19 Skin: Negative for rash. 22:19 Neuro: Negative for altered mental status. Exam: 22:19 Head/Face: Normocephalic, atraumatic. Eyes: Pupils equal round and reactive to light, pkl extra-ocular motions intact. Lids and lashes normal. Conjunctiva and sclera are non-icteric and not injected. Cornea within normal limits. Periorbital areas with no swelling, redness, or edema. ENT: Nares patent. No nasal discharge, no septal abnormalities noted. Tympanic membranes are normal and external auditory canals are clear. Oropharynx with no redness, swelling, or masses, exudates, or evidence of obstruction, uvula midline. Mucous membranes moist. Neck: Trachea midline, no thyromegaly or masses palpated, and no cervical lymphadenopathy. Supple, full range of motion without nuchal rigidity, or vertebral point tenderness. No Meningismus. Chest/axilla: Normal chest wall appearance and motion. Nontender with no deformity. No lesions are appreciated. Cardiovascular: Regular rate and rhythm with a normal S1 and S2. No gallops, murmurs, or rubs. Normal PMI, no JVD. No pulse deficits. 22:19 Respiratory: the patient does not display signs of respiratory distress, Respirations: labored breathing, that is mild, Breath sounds: bronchial sounds, that are mild, are scattered. 22:19 Abdomen/GI: Bowel sounds: normal, Palpation: abdomen is soft and non-tender, in all quadrants. 22:19 Back: Exam negative for acute changes. 22:19 : Exam negative for acute changes. 22:19 Musculoskeletal/extremity: Exam is negative for acute changes. 22:19 Skin: Exam negative for rash. 22:19 Neuro: Orientation: is normal, Mentation: is normal, Cranial nerves: grossly normal, Motor: is normal. Vital Signs: 21:50 BP 103 / 63; Pulse 96; Resp 19; Temp 98.6(O); Pulse Ox 99% on 15% Non-rebreather mask; ed1 Pain 0/10; 22:37 BP 103 / 53; Pulse 105; Resp 20; Pulse Ox 100% on Nebulizer Mask; Pain 0/10; ed1 23:35 BP 108 / 65; Pulse 89; Resp 18; Pulse Ox 100% on 60% Venturi mask; Pain 0/10; ed1 23:50 Pulse Ox 100% on 40% Venturi mask; ed1 07/07 00:38 BP 99 / 55; Pulse 88; Resp 18; Pulse Ox 99% on 40% Venturi mask; Pain 0/10; ed1 02:22 BP 101 / 67; Pulse 82; Resp 20; Temp 98.3; Pulse Ox 99% on 40% Venturi mask; Pain 0/10; ed1 MDM: 07/06 21:36 Patient medically screened. pkl 07/07 01:30 Data reviewed: vital signs, nurses notes, lab test result(s), EKG, radiologic studies, pkl plain films. 07/06 22:09 Order name: Basic Metabolic Panel; Complete Time: : pkl 07/06 22:09 Order name: CBC with Diff; Complete Time: 00:07 pkl 07/06 22:09 Order name: LFT's; Complete Time: : pkl 07/06 22:09 Order name: Magnesium; Complete Time: : pkl 07/06 22:09 Order name: NT PRO-BNP; Complete Time: : pkl 07/06 22:09 Order name: PT-INR; Complete Time: 00:07 pkl 07/06 22:09 Order name: Troponin (emerg Dept Use Only); Complete Time: 01:34 pkl 07/06 22:09 Order name: XRAY Chest (1 view) pkl 07/06 22:09 Order name: Blood Culture Adult (2) pkl 07/06 22:09 Order name: ABG; Complete Time: 00:07 pkl 07/06 22:09 Order name: Procalcitonin; Complete Time: 01:34 pkl 07/06 22:09 Order name: Lactate; Complete Time: 00:07 pkl 07/06 22:10 Order name: Hemoglobin A1c pkl 07/06 22:09 Order name: EKG; Complete Time: 22:10 pkl 07/06 22:09 Order name: Cardiac monitoring; Complete Time: 22:20 pkl 07/06 22:09 Order name: EKG - Nurse/Tech; Complete Time: 23:22 pkl 07/06 22:09 Order name: IV Saline Lock; Complete Time: 23:22 pkl 07/06 22:09 Order name: Labs collected and sent; Complete Time: 23:21 pkl 07/06 22:09 Order name: O2 Per Protocol; Complete Time: 22:20 pkl 07/06 22:09 Order name: O2 Sat Monitoring; Complete Time: 22:19 pkl Administered Medications: 07/06 22:33 Drug: Albuterol - atroVENT (3:1) (2.5 mg - 0.5 mg) 3 ml Route: Nebulizer; ed1 23:00 Follow up: Response: No adverse reaction; Marked relief of symptoms ed1 Disposition: 07/07/18 01:32 Hospitalization ordered by Anmol Salazar for Inpatient Admission. Preliminary diagnosis is Acute exacerbation COPD. Respiratory distress. Chronic renal disease Dialysis. - Bed requested for Telemetry/MedSurg (Inpatient). - Status is Inpatient Admission. ed1 - Condition is Fair. - Problem is new. - Symptoms are unchanged. UTI on Admission? No Signatures: Dispatcher [employer] EDMS Awais Lanza MD MD pkMiryam Zhang RN RN ed1 Nicole Way RN RN cg Corrections: (The following items were deleted from the chart) 07/07 01:58 01:32 Hospitalization Ordered by Anmol Salazar MD for Inpatient Admission. Preliminary cg diagnosis is Acute exacerbation COPD. Respiratory distress. Chronic renal disease Dialysis. Bed requested for Telemetry/MedSurg (Inpatient). Status is Inpatient Admission. Condition is Fair. Problem is new. Symptoms are unchanged. UTI on Admission? No. pkl 02:28 01:58 07/07/2018 01:32 Hospitalization Ordered by Anmol Salazar MD for Inpatient ed1 Admission. Preliminary diagnosis is Acute exacerbation COPD. Respiratory distress. Chronic renal disease Dialysis. Bed requested for Telemetry/MedSurg (Inpatient). Status is Inpatient Admission. Condition is Fair. Problem is new. Symptoms are unchanged. UTI on Admission? No. cg
--- NOTE | 2018-07-07 01:33 | ER ---
Nurse's Notes [facility] Name: Sergio Preez Age: 78 yrs Sex: Male : 1940 Arrival Date: 07/06/2018 Time: 21:31 Bed 19 Private MD: Diagnosis: Acute exacerbation COPD. Respiratory distress. Chronic renal disease Dialysis Presentation: 07/06 21:32 Presenting complaint: EMS states: Shortness of breath and difficulty breathing since ed1 yesterday. When we arrived we had him cap his trach and then put him on a non rebreather and his wheezing and difficulty breathing subsided. Transition of care: patient was not received from another setting of care. Onset of symptoms was July 05, 2018. Risk Assessment: Do you want to hurt yourself or someone else? Patient reports no desire to harm self or others. Initial Sepsis Screen: Does the patient meet any 2 criteria? No. Patient's initial sepsis screen is negative. Does the patient have a suspected source of infection? No. Patient's initial sepsis screen is negative. Care prior to arrival: Glucose check: 121. 21:32 Method Of Arrival: EMS: [facility] ed1 21:32 Acuity: KARLENE 2 ed1 Triage Assessment: 21:50 General: Appears distressed, Behavior is calm, cooperative. Pain: Denies pain. ed1 Respiratory: Reports shortness of breath at rest Onset: The symptoms/episode began/occurred yesterday, the patient has moderate shortness of breath. Historical: - Allergies: 21:50 Cipro; ed1 21:50 Demerol; ed1 21:50 Iodine; ed1 21:50 SHELLFISH; ed1 - Home Meds: 21:50 albuterol sulfate 2.5 mg /3 mL (0.083 %) Inhl nebu 1 vial daily [Active]; allopurinol ed1 200 mg Oral 2 tabs daily [Active]; amiodarone 200 mg Oral tab 0.5 tab daily [Active]; aspirin 81 mg Oral TbEC 1 tab twice daily [Active]; clopidogrel 75 mg Oral tab 1 tab once daily [Active]; Ferrous Sulfate 65 mg Oral 1x daily [Active]; fluticasone 50 mcg/actuation nasal spsn 1 spray 2 times per day [Active]; gabapentin Oral 1 tab 3 times per day [Active]; indura 800 mg 2 tabs before each meal TID [Active]; ipratropium bromide 0.02 % inhalation soln 2.5 mL 4 times per day [Active]; nitroglycerin 0.4 mg Oral as needed [Active]; omeprazole 20 mg Oral TbEC twice a day [Active]; Tums Oral 2 tabs per meal [Active]; vitamin A 8,000 unit Oral cap 1 cap once daily [Active]; vitamin d1 tablet 2000 IU daily [Active]; zinc sulfate 220 (50) mg Oral cap daily [Active]; - PMHx: 21:50 CHF; COPD; Diabetes - NIDDM; Dialysis; M-W-F; ESRD; GERD; Gout; Hypertension; ed1 Pacemaker; with defib; - PSHx: 21:50 Cholecystectomy; tracheostomy; Appendectomy; ed1 - Immunization history:: Adult Immunizations up to date. - Social history:: Smoking status: Patient/guardian denies using tobacco. - Ebola Screening: : Patient negative for fever greater than or equal to 101.5 degrees Fahrenheit, and additional compatible Ebola Virus Disease symptoms Patient denies exposure to infectious person Patient denies travel to an Ebola-affected area in the 21 days before illness onset No symptoms or risks identified at this time. Screenin:52 Abuse screen: Denies threats or abuse. Denies injuries from another. Nutritional ed1 screening: No deficits noted. Tuberculosis screening: No symptoms or risk factors identified. Fall Risk None identified. Assessment: 21:52 General: Appears distressed, Behavior is calm, cooperative. Pain: Denies pain. Neuro: ed1 Level of Consciousness is awake, alert, obeys commands, Oriented to person, place, time, situation. Cardiovascular: Rhythm is with capture Dialysis shunt: in the left arm, with palpable thrill, with auscultated bruit, with no erythema, with no edema, no bleeding noted. Respiratory: Reports shortness of breath at rest Airway via trache Respiratory effort is even, labored, Respiratory pattern is regular, symmetrical, Breath sounds are coarse bilaterally. Onset: The symptoms/episode began/occurred yesterday, the patient has moderate shortness of breath. GI: No signs and/or symptoms were reported involving the gastrointestinal system. : No signs and/or symptoms were reported regarding the genitourinary system. EENT: No signs and/or symptoms were reported regarding the EENT system. Derm: Skin is intact, is healthy with good turgor, Skin is dry, Skin is normal, Skin temperature is warm. Musculoskeletal: Circulation, motion, and sensation intact. Range of motion: intact in all extremities. 23:35 Reassessment: Patient appears in no apparent distress at this time. Patient and/or ed1 family updated on plan of care and expected duration. Pain level reassessed. Patient is alert, oriented x 3, equal unlabored respirations, skin warm/dry/pink. Patient states feeling better. Patient states symptoms have improved. 23:50 Reassessment: Respiratory at bedside. ed1 07/07 00:38 Reassessment: Patient appears in no apparent distress at this time. Patient and/or ed1 family updated on plan of care and expected duration. Pain level reassessed. Patient is alert, oriented x 3, equal unlabored respirations, skin warm/dry/pink. Patient denies pain at this time. Patient states feeling better. Patient states symptoms have improved. 02:22 Reassessment: Patient appears in no apparent distress at this time. Patient and/or ed1 family updated on plan of care and expected duration. Pain level reassessed. Patient is alert, oriented x 3, equal unlabored respirations, skin warm/dry/pink. Patient denies pain at this time. Patient states feeling better. Patient states symptoms have improved. Vital Signs: 07/06 21:50 BP 103 / 63; Pulse 96; Resp 19; Temp 98.6(O); Pulse Ox 99% on 15% Non-rebreather mask; ed1 Pain 0/10; 22:37 BP 103 / 53; Pulse 105; Resp 20; Pulse Ox 100% on Nebulizer Mask; Pain 0/10; ed1 23:35 BP 108 / 65; Pulse 89; Resp 18; Pulse Ox 100% on 60% Venturi mask; Pain 0/10; ed1 23:50 Pulse Ox 100% on 40% Venturi mask; ed1 07/07 00:38 BP 99 / 55; Pulse 88; Resp 18; Pulse Ox 99% on 40% Venturi mask; Pain 0/10; ed1 02:22 BP 101 / 67; Pulse 82; Resp 20; Temp 98.3; Pulse Ox 99% on 40% Venturi mask; Pain 0/10; ed1 ED Course: 07/06 21:31 Patient arrived in ED. ed1 21:33 Triage completed. ed1 21:36 Awais Lanza MD is Attending Physician. pkl 21:50 Arm band placed on left wrist. ed1 21:52 Patient has correct armband on for positive identification. Placed in gown. Bed in low ed1 position. Call light in reach. property assessment monitor on. Pulse ox on. NIBP on. 22:19 Miryam Rodriguez, RN is Primary Nurse. ed1 22:36 Missed attempt(s): 22 gauge in right antecubital area. Bleeding controlled, band aid ed1 applied, catheter tip intact. 22:40 XRAY Chest (1 view) In Process Unspecified. EDMS 22:45 Inserted saline lock: 20 gauge in right forearm, using aseptic technique. Blood aa1 collected. 07/07 00:24 Notified ED physician of a critical lab result(s). Creatine 8.45. jd3 01:31 Anmol Salazar MD is Hospitalizing Provider. pkl 02:22 No provider procedures requiring assistance completed. Patient admitted, IV remains in ed1 place. intact, No redness/swelling at site. Administered Medications: 07/06 22:33 Drug: Albuterol - atroVENT (3:1) (2.5 mg - 0.5 mg) 3 ml Route: Nebulizer; ed1 23:00 Follow up: Response: No adverse reaction; Marked relief of symptoms ed1 Outcome: 07/07 01:32 Decision to Hospitalize by Provider. pkl 02:22 Admitted to Tele accompanied by nurse, room 410, with oxygen, with chart, Report called ed1 to SHAI Tovar 02:22 Condition: stable 02:22 Discharge instructions given to patient, Instructed on the need for admit, Demonstrated understanding of instructions. 02:28 Patient left the ED. ed1 Signatures: Dispatcher [employer] EDMS Jaclyn Grant RN RN aa1 Awais Lanza MD MD pkMiryam Zhang RN RN ed1 Alfred Torres RN RN jd3
[2018-07-07] MEDS ORDERED: ALBUTEROL 2.5 MG/3 ML NEB SOL NEB PRN (02:12)
[2018-07-07] MEDS ORDERED: IPRATROPIUM BROM 0.5MG/2.5ML NEB PRN (02:12)
[2018-07-07] MEDS ORDERED: HYDROCODONE/APAP 7.5/325 MG TAB PO ONE (05:26)
[2018-07-07] MEDS ORDERED: HYDROCODONE/APAP 7.5/325 MG TAB ONE (06:00)
[2018-07-07] MEDS ORDERED: NITROGLYCERIN 0.4 MG/TAB SL PRN (06:55)
--- NOTE | 2018-07-07 06:58 | EKG ---
Test Date: 2018-07-06 Test Time: 23:25:27 Engravings Polisher: LEONRAD MEASUREMENT RESULTS: Intervals: Rate: 86 CT: 168 QRSD: 148 QT: 456 QTc: 545 [place]: P: 19 CT: 168 QRS: -71 T: 36 INTERPRETIVE STATEMENTS: Atrial-sensed ventricular-paced rhythm Abnormal ECG Compared to ECG 06/18/2018 20:34:38 no significant change from previous ECG Electronically Signed On 07-07-18 06:57:55 CDT by Thomas Middleton
[2018-07-07] MEDS: IPRATROPIUM BROM 0.5MG/2.5ML NEB SCH ×3 (08:00→20:01)
[2018-07-07] MEDS: ALBUTEROL 2.5 MG/3 ML NEB SOL NEB SCH ×3 (08:00→20:01)
--- NOTE | 2018-07-07 08:08 | RAD REPORT ---
EXAM DESCRIPTION: RAD - Chest Single View - 07/06/2018 10:41 pm CLINICAL HISTORY: Shortness of breath, difficulty breathing, CHF COPD history COMPARISON: June 20, 2018 portable TECHNIQUE: AP portable chest image was obtained 2238 hours . FINDINGS: Mild diffuse prominence of the interstitial markings noted not substantially different fro m the comparison. No peripheral mass or consolidation. Cardiomegaly is present. Vasculature is mildly prominent. No measurable pleural effusion and no pneumothorax. No acute bony abnormality seen. No ac [place] aortic finding. Trach tube remains in place. Right-sided defibrillator remains in place. No new t ube or line. IMPRESSION: Cardiomegaly and mild vascular engorgement similar to comparison. No peripheral mass or consolidation. Chest is not significantly different from comparison. Patient could have a mild chronic failure.
[2018-07-07] MEDS: CLOPIDOGREL 75 MG TABLET PO SCH (08:29)
[2018-07-07] MEDS: CEFTRIAXONE/SWI 1gm 1 GM/10 ML SYR IV SCH (08:29)
[2018-07-07] MEDS: FERROUS SULFATE 325 MG TAB PO SCH (08:30)
[2018-07-07] MEDS: ALLOPURINOL 100 MG TAB PO SCH (08:30)
[2018-07-07] MEDS: SEVELAMER CARBONATE 800 MG TABLET PO SCH ×3 (08:31→17:24)
[2018-07-07] MEDS: ASPIRIN EC 81 MG TAB PO SCH (08:31)
[2018-07-07] MEDS: HEPARIN 5000 UNIT/ML 1 ML VIAL SQ SCH ×2 (08:31→20:48)
[2018-07-07] MEDS: GABAPENTIN 100 MG CAP PO SCH ×3 (08:31→20:48)
[2018-07-07] MEDS: AMIODARONE HCL 200 MG TAB PO SCH (08:35)
--- NOTE | 2018-07-07 08:56 | P.CNS ---
Date of Consult: 07/07/18 Chief Complaint: Shortness of breath History of Present Illness: Patient is 78 years of age well known to me with a history of sleep apnea he has a trach presumed obstructive airways disease and started having more shortness of breath on Thursday he was just recently discharged from the hospital patient was prescribed Breo on the fall last month is not sure if is helping a means patient has had some problems obtaining is nebulize long-acting bronchodilators the slight cough no fever chills or chest pain lower extremity edema is on dialysis Allergies iodine [Iodine] Allergy (Intermediate, Verified 04/13/18 02:39) Itching ciprofloxacin [From Cipro] Allergy (Verified 07/07/18 03:03) unknown meperidine [From Demerol] Allergy (Verified 07/07/18 03:03) unknown SHELLFISH Allergy (Uncoded 06/02/15 15:35) Unknown Home Medications: Albuterol Sulfate 1 inh IH DAILY 07/07/18 Allopurinol [Zyloprim*] 200 mg PO DAILY 07/07/18 Amiodarone HCl 100 mg PO DAILY 07/07/18 Aspirin [Aspirin EC 81 MG] 162 mg PO DAILY 07/07/18 Calcium Carbonate [Tums Regular*] 2 tab PO DAILY 07/07/18 Cholecalciferol (Vitamin D3) [Vitamin D 5,000 IU Cap*] 2,000 units PO DAILY Clopidogrel Bisulfate [Clopidogrel] 75 mg PO DAILY 07/07/18 Ferrous Sulfate [Ferrous Sulfate*] 65 mg PO DAILY 07/07/18 Fluticasone Propionate [24 Hour Allergy Relief] 1 spray IH BID 07/07/18 Gabapentin [Neurontin*] 100 mg PO TID 07/07/18 Ipratropium [Atrovent 0.03% (21MCG)/Blair Nasal*] 1 inh IH QID 07/07/18 Nitroglycerin [Nitrostat*] 0.4 mg PO DAILY PRN 07/07/18 Omeprazole 20 mg PO BID 07/07/18 Sevelamer Carbonate [Renvela*] 1,600 mg PO TIDWM 07/07/18 Vitamin A 8,000 unit PO DAILY 07/07/18 Zinc Sulfate [Zinc Sulfate*] 50 mg PO DAILY 07/07/18 - Past Medical/Surgical History Diabetic: Yes -: NIDDM - not on any meds -: HTN -: ESRD -: gout -: GERD -: arthritis -: Diverticulitis -: dialysis: MWF -: anemia -: sleep apnea -: gout -: oa -: trach 06/2002 -: HD graft - L upper arm -: pacemaker - Family History Brother Medical History: Hypertension Mother Medical History: Heart disease, Hypertension Sister Medical History: Cancer Notes: breast cancer - Social History Smoking Status: Unknown if ever smoked Alcohol use: No CD- Drugs: No Caffeine use: Yes Place of Residence: Home Review of Systems General: Weakness Respiratory: Cough, Shortness of Breath Cardiovascular: Edema Physical Examination Temp Pulse Resp BP Pulse Ox 97.6 F 83 16 108/55 L 100 07/07/18 04:00 07/07/18 04:00 07/07/18 04:00 07/07/18 04:00 07/07/18 04:00 General: Alert, Oriented x3 HEENT: Atraumatic Neck: Supple Respiratory: Expiratory wheezes Cardiovascular: Regular rate/rhythm, Normal S1 S2, Edema (3+ edema) Gastrointestinal: Normal bowel sounds, Soft and benign Laboratory Data (last 24 hrs) 07/06/18 22:55: PT 13.1 H, INR 1.11 07/06/18 22:55: WBC 7.8, Hgb 9.1 L, Hct 28.9 L, Plt Count 139 L 07/06/18 22:55: Sodium 139, Potassium 5.4 H, BUN 35 H, Creatinine 8.43 H*, Glucose 107 H, Magnesium 2.2, Total Bilirubin 0.4, AST 12 L, ALT 15, Alkaline Phosphatase 85 - Problems (1) Shortness of breath Current Visit: Yes Status: Acute Plan: Patient is 78 years of age with a history of presumed obstructive airways disease admitted with worsening dyspnea chest x-rays clear pro calcitonin level is mildly elevated white count normal patient is on dialysis he did much better on nebulized long-acting bronchodilators at home instead of the inhaler reduce prednisone to 20 mg twice a day add nebulize Brovana. Blood gases are satisfactory he is not hypercapnic and a mild respiratory alkalosis will order the nebulized bronchodilator long-acting through his pharmacy
[2018-07-07] MEDS ORDERED: [UNRECOGNIZED DRUG - REMARK] IH SCH (09:00)
[2018-07-07] MEDS ORDERED: CEFTRIAXONE 1 GM/NS 50 ML 1 GM/50 ML BAG IV SCH (09:00)
[2018-07-07] MEDS ORDERED: METHYLPREDNISOLONE 125 MG INJ IV SCH (09:00)
[2018-07-07] MEDS: predniSONE 20 MG TAB PO SCH ×2 (11:17→20:49)
[2018-07-07] MEDS: MIDODRINE HCL 5 MG TABLET PO PRN (13:03)
[2018-07-07] MEDS ORDERED: NA CHLORIDE 0.9% 1,000 ML IV PRN (13:23)
[2018-07-07] MEDS: ARFORMOTEROL TARTRATE 15 MCG/2 ML VIAL.NEB NEB SCH ×2 (13:25→20:01)
[2018-07-07] MEDS: FLUTICASONE 50MCG NASAL SPRAY NAS SCH (21:00)
--- NOTE | 2018-07-08 00:03 | PN ---
Date of Progress Note: 07/07/2018 Chief Complaint: End-stage renal disease, congestive heart failure with diastolic and systolic dysfu nction, COPD exacerbation. Subjective: The patient presented to the hospital because of generalized weakness. He has history o f borderline hypotension and Intradialytic hypotension. He is taking midodrine for blood pressure elias pport. The patient was found to have hyperkalemia. Potassium was 5.4 and dialysis with urgent. Pro cedure was ordered for today with 2 potassium dialysate. The patient is admitted to the hospital for elevated troponin, which was 0.07 and elevated BNP was 58,451. Review of Systems: Constitutional: Complains of generalized weakness. Denies syncope. Eyes: Denies vision changes. Ear, Nose, Mouth, and Throat: Denies sore throat, earache. Respiratory: Denies hemoptysis. Has shortness of breath with light activities and at rest. Cardiovascular: Denies palpitation, syncope. GI: Denies nausea, vomiting. : Denies dysuria, hematuria. Musculoskeletal: Denies muscle aches or joint swelling, has although leg edema which is chronic. Past Medical History: Gout; hypertension; anemia; CKD; renal osteodystrophy; end-stage renal disease , on dialysis via the AV graft 3 times per week; arthritis; diverticulitis; sleep apnea, status post trach, June 2002. Family History: Hypertension, heart disease, cancer in his sister. Social History: Denies tobacco, alcohol, or illicit drugs. Physical Examination: General: Not in acute distress. Eyes: Anicteric sclerae. EOMI. Ears, Nose, Mouth, and Throat: Oral mucosa moist. No pallor. The patient has tracheostomy trachios juancho at the neck base. Lungs: Clear to auscultation bilaterally. Heart: S1, S2. Abdomen: Obese, soft. There is no rebound, no guarding, no CVA tenderness. Extremities: Edema present in both legs. Skin: Warm and dry. No skin rashes. Neurological: Cranial nerves intact. No tremor. Vital Signs: Blood pressure is 108/55. Heart rate is 83. Temperature 97.6, respiratory rate 16, an d pulse oximeter 100%. Laboratory Data: WBC 7.8, hemoglobin 9.1, hematocrit 28, platelets 139,000. Sodium 139, potassium 5 .4, BUN 35, creatinine 8.43, glucose 107, magnesium 2.2. Impression And Plan: 1.End-stage renal disease, on dialysis. The patient will have dialysis today to obtain metabolic cl earance and ultrafiltration. The patient will continue midodrine and 10 mg dose was ordered. 2.Congestive heart failure, diastolic-systolic dysfunction. Continue low-sodium diet and p.o. fluid restriction. Dialysis will be done with ultrafiltration to treat fluid overload. 3.Hypertension, controlled. 4.Intradialytic hypotension. The patient will have midodrine to prevent intradialytic hypotension. EB/MODL Voice ID: [id number] Report ID: [id number]
[2018-07-08] MEDS: ALBUTEROL 2.5 MG/3 ML NEB SOL NEB SCH ×4 (01:30→20:00)
[2018-07-08] MEDS: IPRATROPIUM BROM 0.5MG/2.5ML NEB SCH ×4 (01:31→20:00)
--- NOTE | 2018-07-08 04:04 | HP ---
Date of Admission: 07/07/2018 Chief Complaint: Shortness of breath. History Of Present Illness: A 78-year-old male patient, who was doing fine in his normal usual state of health until last 2 days. He started to have shortness of breath and wheezing. He denies any fever or chills. Denies any expectoration. His symptoms continued to get worse over last 2 days, so he came into the ER. After he was evaluated, he was admitted to the hospital with acute exacerbation of COPD problem. The patient has had multiple hospital admissions recently for similar problems. Medications: List reviewed. Review of Systems: Respiratory: As mentioned above. All other systems reviewed and negative. Allergies: TO IODINE, CIPRO, AND DEMEROL. Social History: Negative for smoking and alcohol use. Family History: Significant for asthma, hypertension, and breast cancer. Past Surgical History: AICD placement in June 2014. Tracheostomy many years ago. Past Medical History: Significant for end-stage renal disease, on hemodialysis ; COPD; chronic systolic congestive heart failure with low ejection fraction around 20% to 25%; anemia due to chronic kidney disease; sleep apnea; coronary artery disease; diabetes mellitus; allergic rhinitis; osteoarthritis at multiple sites; diverticulosis; cervical spondylosis with radiculopathy; prostate cancer; and gastroesophageal reflux disease. Physical Examination: Vital Signs: Last temperature 98.6, pulse 88, respiratory rate 18, blood pressure 99/55, oxygen saturation 99%. Height 5 feet 11 inches, weight 298 pounds. General: Awake, alert, oriented, not in distress. HEENT: Head atraumatic, normocephalic. Conjunctivae nonerythematous. Sclerae white. Mouth, no thrush or edema noted. Ears/Nose, no mass, lesion, discharge noted. Neck: Presence of tracheostomy tube. Lungs: Bilateral scattered wheezing. Not using accessory muscles of respiration. Heart: Normal heart sounds, no murmur or gallop. Abdomen: Soft, bowel sounds normal. No guarding, rigidity, tenderness, mass, hepatosplenomegaly, distention, or bruit noted. Extremities: Bilateral grade 2 pedal edema. Skin: No rash, ulcer, cellulitis. Lymphatics: No lymph node enlargement in neck, supraclavicular, infraclavicular region. Neuro: No focal neurological deficit. Chest: Unremarkable. External Genitalia: Deferred. Rectal: Deferred. Laboratory Data: White count 7.8, hemoglobin 9.1, platelets 139. Blood gas; pH 7.51, pCO2 of 30.5, PO2 of 80, saturation 96.9% on room air. Sodium 139, potassium 5.4, chloride 102, bicarb 26, BUN 35, creatinine 8.43, glucose 107. Liver function tests unremarkable. Procalcitonin 0.72, pro BNP 58,451. Chest x -ray: No acute cardiopulmonary changes. There are no infiltrate. Impression: 1. Acute exacerbation of chronic obstructive pulmonary disease. 2. End-stage renal disease, on dialysis. 3. Chronic systolic congestive heart failure. 4. Anemia due to chronic kidney disease. 5. Coronary artery disease. 6. Hypertension. 7. Diabetes mellitus. 8. Diverticulosis. 9. Osteoarthritis, multiple sites. 10. Allergic rhinitis. 11. Prostate cancer. 12. Gastroesophageal reflux disease. Plan: Admit the patient to hospital for further evaluation and management of this problem. The patient is appropriate for inpatient and is expected to spend 2 midnights in the hospital. We will go ahead and consult Dr. Easley for the patient's recurrent COPD exacerbation problem. He was started on Trelegy within last 1 month and he is taking that regularly as prescribed. Home medications will be continued per order. Consult Nephrology for dialysis needs. DVT prophylaxis will be given using heparin. We will go ahead and give nebulizer treatment with oxygen and IV steroid per order. ODESSA/PATRICK Voice ID: [id number] ABEL
[2018-07-08] MEDS: PANTOPRAZOLE 40MG TABLET PO SCH (06:51)
[2018-07-08] MEDS: ARFORMOTEROL TARTRATE 15 MCG/2 ML VIAL.NEB NEB SCH ×2 (07:35→20:00)
[2018-07-08] MEDS: FLUTICASONE 50MCG NASAL SPRAY NAS SCH ×2 (09:00→20:56)
[2018-07-08] MEDS: CEFTRIAXONE/SWI 1gm 1 GM/10 ML SYR IV SCH (09:13)
[2018-07-08] MEDS: FERROUS SULFATE 325 MG TAB PO SCH (09:14)
[2018-07-08] MEDS: GABAPENTIN 100 MG CAP PO SCH ×3 (09:14→20:41)
[2018-07-08] MEDS: AMIODARONE HCL 200 MG TAB PO SCH (09:14)
[2018-07-08] MEDS: CLOPIDOGREL 75 MG TABLET PO SCH (09:14)
[2018-07-08] MEDS: SEVELAMER CARBONATE 800 MG TABLET PO SCH ×3 (09:15→16:09)
[2018-07-08] MEDS: predniSONE 20 MG TAB PO SCH ×2 (09:15→20:41)
[2018-07-08] MEDS: ASPIRIN EC 81 MG TAB PO SCH (09:15)
[2018-07-08] MEDS: ALLOPURINOL 100 MG TAB PO SCH (09:18)
[2018-07-08] MEDS: HEPARIN 5000 UNIT/ML 1 ML VIAL SQ SCH ×2 (09:18→20:41)
--- NOTE | 2018-07-09 01:10 | PN ---
Date of Progress Note: 07/08/2018 History Of Present Illness: The patient was admitted for shortness of breath, found to have hyperkalemia, was dialyzed. The patient has slightly elevated BNP of 58,000. The patient was admitted 2 to 3 times recently for similar symptoms, was treated for acute bronchitis. Physical Examination: Vital Signs: Temperature 97.1, pulse rate 71, and blood pressure 97/54. General: Awake, alert, oriented x3, in no acute distress. Neck: Tracheostomy. Heart: Regular rate and rhythm. Normal S1, S2. Chest: Mild bilateral rales. Abdomen: Soft and nontender. Extremities: Trace edema. Laboratory Data: White count 7.8, hemoglobin 9.1, platelets 140. Medications: Reviewed. Assessment And Plan: 1. End-stage renal disease. Continue hemodialysis Thursday, Thursday and Thursday medications. 2. Anemia. Continue on Epogen. 3. Hyperkalemia. Continue on dialysis. 4. Metabolic bone disease. Continue Renvela. 5. Acute bronchitis. Antibiotics and inhalers 7. Intradialytic hypotension , continue on midodrine. SONIA/PATRICK Voice ID: [id number] Report ID: [id number] ABEL
--- NOTE | 2018-07-09 01:19 | PN ---
Date of Progress Note: 07/08/2018 Subjective: The patient was seen this morning for followup. No new complaints or problems reported by the patient. He feels better today than yesterday, not back to his baseline yet. Objective: Vital signs: Reviewed. HEENT: Unremarkable. Lungs: Bilateral good equal air entry. Not in respiratory distress. Some scattered wheezing presen t, but better than yesterday. Heart sounds: Normal. Abdomen: Soft. Bowel sounds normal. No guarding, rigidity, tenderness, or distention. Extremities: Bilateral leg edema, better today than yesterday. Impression: 1.Acute exacerbation of chronic obstructive pulmonary disease. 2.End-stage renal disease, on hemodialysis. 3.Chronic systolic congestive heart failure. 4.Coronary artery disease. Plan: We will continue current medications, steroids, oxygen, and nebulizer treatment. Followup russell Easley and shelver. ODESSA/MODL Voice ID: [id number] Report ID: [id number]
[2018-07-09] MEDS: ALBUTEROL 2.5 MG/3 ML NEB SOL NEB SCH ×5 (02:00→20:00)
[2018-07-09] MEDS: IPRATROPIUM BROM 0.5MG/2.5ML NEB SCH ×5 (02:00→20:00)
[2018-07-09] MEDS: PANTOPRAZOLE 40MG TABLET PO SCH (05:42)
[2018-07-09] MEDS: ARFORMOTEROL TARTRATE 15 MCG/2 ML VIAL.NEB NEB SCH ×3 (06:29→20:00)
[2018-07-09] MEDS: MIDODRINE HCL 5 MG TABLET PO PRN (07:43)
[2018-07-09] MEDS: EPOETIN ALFA 10,000 UNIT/ML VIAL IV SCH (07:43)
[2018-07-09] MEDS: ALBUMIN HUMAN 25% 50 ML IV SCH (07:44)
[2018-07-09] MEDS: SEVELAMER CARBONATE 800 MG TABLET PO SCH ×3 (08:56→16:25)
[2018-07-09] MEDS: HEPARIN 5000 UNIT/ML 1 ML VIAL SQ SCH ×2 (09:00→20:28)
[2018-07-09] MEDS: CLOPIDOGREL 75 MG TABLET PO SCH (11:22)
[2018-07-09] MEDS: FERROUS SULFATE 325 MG TAB PO SCH (11:24)
[2018-07-09] MEDS: GABAPENTIN 100 MG CAP PO SCH ×3 (11:24→20:28)
[2018-07-09] MEDS: predniSONE 20 MG TAB PO SCH ×2 (11:25→20:28)
[2018-07-09] MEDS: AMIODARONE HCL 200 MG TAB PO SCH (11:25)
[2018-07-09] MEDS: ALLOPURINOL 100 MG TAB PO SCH (11:25)
[2018-07-09] MEDS: ASPIRIN EC 81 MG TAB PO SCH (11:26)
[2018-07-09] MEDS: CEFTRIAXONE/SWI 1gm 1 GM/10 ML SYR IV SCH (11:34)
--- NOTE | 2018-07-09 12:25 | P.PN ---
Subjective Date of Service: 07/09/18 Chief Complaint: Shortness of breath Subjective: Improving (Patient is doing better on nebulizers status post dialysis) Review of Systems General: Weakness Respiratory: Shortness of Breath Cardiovascular: Edema Physical Examination - Vital Signs Temperature: 97.8 F Blood Pressure: 113/57 Pulse: 87 Respirations: 18 Pulse Ox (%): 100 - Physical Exam General: Alert, Oriented x3, Mild distress Respiratory: Expiratory wheezes Cardiovascular: Edema Gastrointestinal: Normal bowel sounds, Soft and benign Assessment & Plan - Problems (Diagnosis) (1) Shortness of breath Current Visit: Yes Status: Acute Plan: Patient admitted with worsening dyspnea and fax the prescription for performance to his pharmacy patient has normal oxygenation with a mild respiratory alkalosis on room air cultures are all negative he can be discharged home nurse to verify the status of his nebulized bronchodilator from the pharmacy and to contact me follow with me in 2 weeks Dc Breo continue with low-dose prednisone 10 mg twice a day for about 7-10 days
[2018-07-09] MEDS: FLUTICASONE 50MCG NASAL SPRAY NAS SCH ×2 (12:50→20:28)
--- NOTE | 2018-07-09 18:14 | PN ---
Date of Progress Note: 07/09/2018 Subjective: The patient was seen this morning for followup. No new complaints or problems reported by the patient. 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 Objective: Vital Signs: Reviewed. HEENT: Unremarkable. Lungs: Bilateral good equal entry. Some scattered wheezing present. Heart: Sounds normal. Abdomen: Soft. Bowel sounds normal. No guarding, rigidity, tenderness, distention. Extremities: Leg edema present, unchanged. Impression: 1.Acute exacerbation of chronic obstructive pulmonary disease. 2.Congestive heart failure, chronic, systolic. 3.End-stage renal disease, on hemodialysis. 4.Anemia due to chronic kidney disease. Plan: We will go ahead and continue current medications. Continue current nebulizer treatment, ster oid and depending on his condition, we will decide whether we can discharge him today or tomorrow. Marta Easley is making arrangements for him to get long-acting nebulizer treatment at home. ODESSA/MODL Voice ID: [id number] Report ID: [id number]
--- NOTE | 2018-07-09 18:38 | PN ---
Date of Progress Note: 07/09/2018 Subjective: The patient with end-stage renal disease, on dialysis, Thursday, Thursday, and Thursday fro jimy Zee, was sent for shortness of breath. The patient was admitted due to trach and in the last few months for acute bronchitis and COPD exacerbation. The patient feels much better right now. Cordell n for hemodialysis today. The patient is cleared for discharge from Nephrology point of view after d ialysis. Objective: Vital Signs: Temperature 97.8, pulse rate 87, respiratory rate 18, blood pressure 113/57 . General: Awake, alert, oriented x3, in no acute distress. Obese. Neck: Tracheostomy. Heart: Regular rate and rhythm. Normal S1, S2. Chest: Clear to auscultation bilaterally. No rales or wheezes Abdomen: Soft and nontender. Extremities: Trace edema. Laboratory Data: Not available labs for today. Medications: Include albuterol, allopurinol, amiodarone, aspirin, Rocephin, Plavix, Epogen, gabapent in, midodrine, nitroglycerin, pantoprazole, prednisone, and Renvela. Assessment And Plan: 1.End-stage renal disease. Continue hemodialysis Thursday, Thursday, and Thursday. Renal diet and azul ally dosed medications. 2.Acute bronchitis. The patient responded significantly. Continue steroids, inhalers, antibiotic a s per Pulmonary. 3.Pulmonary. Anemia. Continue on Epogen. 4.Metabolic bone disease. Continue Renvela. 5.Intradialytic hypotension. On midodrine. SONIA/GRICELDAL Voice ID: [id number] Report ID: [id number]
[2018-07-10] MEDS: ALBUTEROL 2.5 MG/3 ML NEB SOL NEB SCH ×4 (02:00→20:00)
[2018-07-10] MEDS: IPRATROPIUM BROM 0.5MG/2.5ML NEB SCH ×4 (02:00→20:00)
[2018-07-10] MEDS: PANTOPRAZOLE 40MG TABLET PO SCH (06:21)
[2018-07-10] MEDS: ARFORMOTEROL TARTRATE 15 MCG/2 ML VIAL.NEB NEB SCH ×2 (07:32→20:00)
[2018-07-10] MEDS: SEVELAMER CARBONATE 800 MG TABLET PO SCH ×3 (10:03→16:52)
[2018-07-10] MEDS: HEPARIN 5000 UNIT/ML 1 ML VIAL SQ SCH ×2 (10:04→23:28)
[2018-07-10] MEDS: FERROUS SULFATE 325 MG TAB PO SCH (10:05)
[2018-07-10] MEDS: AMIODARONE HCL 200 MG TAB PO SCH (10:05)
[2018-07-10] MEDS: ASPIRIN EC 81 MG TAB PO SCH (10:05)
[2018-07-10] MEDS: predniSONE 20 MG TAB PO SCH ×2 (10:06→23:28)
[2018-07-10] MEDS: GABAPENTIN 100 MG CAP PO SCH ×3 (10:06→23:28)
[2018-07-10] MEDS: CLOPIDOGREL 75 MG TABLET PO SCH (10:06)
[2018-07-10] MEDS: CEFTRIAXONE/SWI 1gm 1 GM/10 ML SYR IV SCH (10:07)
[2018-07-10] MEDS: ALLOPURINOL 100 MG TAB PO SCH (10:07)
[2018-07-10] MEDS: FLUTICASONE 50MCG NASAL SPRAY NAS SCH ×2 (10:08→21:00)
--- NOTE | 2018-07-10 17:27 | DS ---
Date of Discharge: 07/10/2018 Disposition: Discharged to go home. Physical Examination: HEENT: Unremarkable. Lungs: Clear to auscultation. Heart: Sounds normal. Abdomen: Soft. Bowel sounds normal. No guarding, rigidity, tenderness, or distention. Extremities: Bilateral leg edema, better than before. Hospital Course: A 78-year-old male patient who came into emergency with complaints of shortness of breath. Please see dictated H and P for more information. After the patient was evaluated in the ER , he was admitted to the hospital with acute exacerbation of COPD problem. He was started on oxygen nebulizer treatment, steroids. There was no evidence of any infection. Dr. Easley was consulted f or pulmonary. Less than a month ago, the patient was started on new inhaler, Trelegy, but that reall y has not helped him to avoid this recurrent hospitalization lately that he is having with COPD exace rbation, so we did request consultation from Dr. Easley, who has suggested for the patient to use l mikey acting bronchodilator therapy using medication like Brovana, and he did try to get this arranged while he was in the hospital, but because of the cost, the patient will not be able to get that medic ation, so I did talk to Dr. Easley today, and he has informed me that the patient should follow up with him at his office next week and he will do necessary paperwork to get such medication for the pa tient where it will not probably cost him that much. The patient was made aware of that. The patien t has felt much better. Shortness of breath has resolved. Wheezing has resolved. Discharge Diagnoses: 1.Acute exacerbation of chronic obstructive pulmonary disease. 2.End-stage renal disease, on hemodialysis. 3.Chronic systolic congestive heart failure. 4.Anemia due to chronic kidney disease. 5.Coronary artery disease. 6.Hypertension. 7.Diabetes mellitus. 8.Diverticulosis. 9.Osteoarthritis, multiple sites. 10.Allergic rhinitis. 11.Prostate cancer. 12.Gastroesophageal reflux disease. Laboratory Data: Labs done during this hospital admission. Upon admission, sodium 139, potassium 5. 4, chloride 102, bicarb 26, BUN 35, creatinine 8.43. White count 7.8, hemoglobin 9.1, platelets 130. Discharge Medications And Instructions: 1.Continue all prior home medications. 2.Take prednisone 10 mg 1 tab 2 times a day, take it with food. 3.Follow up at my office in [address] Easley next week. He will assist you with se t up of long acting bronchodilator therapy, probably Brovana. 4.When I see him at office, we will start giving him appropriate instruction how to reduce dose of p rednisone and prednisone prescription will be sent to his pharmacy from my office. ODESSA/MODL Voice ID: [id number] Report ID: [id number]
[2018-07-10] MEDS: EPOETIN ALFA 10,000 UNIT/ML VIAL IV SCH (20:44)
[2018-07-10] MEDS: ALBUMIN HUMAN 25% 50 ML IV SCH (20:44)
[2018-07-11] MEDS: IPRATROPIUM BROM 0.5MG/2.5ML NEB SCH ×2 (02:00→07:40)
[2018-07-11] MEDS: ALBUTEROL 2.5 MG/3 ML NEB SOL NEB SCH ×2 (02:00→07:40)
--- NOTE | 2018-07-11 04:22 | PN ---
Date of Progress Note: 07/10/2018 Chief Complaint: Acute on chronic congestive heart failure with systolic and diastolic dysfunction, hypoxemic respiratory failure, and fluid overload. History Of Present Illness: The patient underwent dialysis yesterday. Procedure was well tolerated. Ultrafiltration was done, although the patient has persistent shortness of breath and is to have ur gent dialysis to control volemia today. Review of Systems: Complaining of nonproductive cough, shortness of breath. Denies chest pain, palpitation, syncope. Physical Examination: Lungs: Crackles bilaterally at bases. Heart: S1, S2. Abdomen: Soft, benign. Extremities: Edema present. Laboratory Data: Hemoglobin 9.1, WBC 7.8, platelet count is 139,000. Sodium 139, potassium 5.4, chl oride 102, CO2 26, BUN 35, creatinine 8.43, magnesium 2.2, calcium 8.6. BNP is 58,451. Impression And Plan: Congestive heart failure, fluid overload, chronic obstructive pulmonary disease exacerbation. The patient is on antibiotics and nebulizer. Continue p.o. fluid restriction. Dialy sis will be done today to obtain metabolic clearance. Control potassium level and treat volume overl oad. The patient has intradialytic hypotension. Midodrine will be provided for treatment of intradi alytic hypotension. Advance ultrafiltration to adequately control volume overload and provide management for congestive heart failure. EB/MODL Voice ID: [id number] Report ID: [id number]
[2018-07-11] MEDS: PANTOPRAZOLE 40MG TABLET PO SCH (05:18)
[2018-07-11 05:48] VITALS: BMI 41.6
[2018-07-11] MEDS: ARFORMOTEROL TARTRATE 15 MCG/2 ML VIAL.NEB NEB SCH (07:40)
[2018-07-11] MEDS: CLOPIDOGREL 75 MG TABLET PO SCH (08:18)
[2018-07-11] MEDS: SEVELAMER CARBONATE 800 MG TABLET PO SCH ×2 (08:18→12:02)
[2018-07-11] MEDS: GABAPENTIN 100 MG CAP PO SCH ×2 (08:18→12:03)
[2018-07-11] MEDS: AMIODARONE HCL 200 MG TAB PO SCH (08:18)
[2018-07-11] MEDS: FERROUS SULFATE 325 MG TAB PO SCH (08:18)
[2018-07-11] MEDS: HEPARIN 5000 UNIT/ML 1 ML VIAL SQ SCH (08:19)
[2018-07-11] MEDS: ASPIRIN EC 81 MG TAB PO SCH (08:19)
[2018-07-11] MEDS: predniSONE 20 MG TAB PO SCH (08:19)
[2018-07-11] MEDS: CEFTRIAXONE/SWI 1gm 1 GM/10 ML SYR IV SCH (08:20)
[2018-07-11] MEDS: ALLOPURINOL 100 MG TAB PO SCH (08:24)
[2018-07-11] MEDS: FLUTICASONE 50MCG NASAL SPRAY NAS SCH (08:25)
[2018-07-11 08:34] VITALS: O2SAT 100
[2018-07-11 13:12] VITALS: BP 106/56; TEMP 97.7
--- NOTE | 2018-07-11 16:04 | PN ---
Date of Progress Note: 07/10/2018 Subjective: The patient was seen this morning for followup. He was feeling much better. No new com plaints or problems reported. Shortness of breath is much better. Objective: Vital Signs: Reviewed. HEENT: Unremarkable. Lungs: Clear to auscultation. Heart: Sounds normal. Abdomen: Soft. Bowel sounds normal. No guarding, rigidity, tenderness, or distention. Extremities: Leg edema unchanged. Impression: 1.Acute exacerbation of chronic obstructive pulmonary disease. 2.End-stage renal disease, on hemodialysis. 3.Chronic systolic congestive heart failure. 4.Coronary artery disease. 5.Anemia due to chronic kidney disease. Plan: My plan today was to discharge him to go home. Discharge order was written, but nurse contact ed and informed me that line technician wanted the patient to have dialysis done today and the patient w as agreeable with that. So, the patient will not be able to go home until after the dialysis gets do ne and he will go for dialysis very late today as there are some other patients, who are going to req uire more emergent dialysis, so Mr. Perez will not have dialysis until very late in the day today, so unfortunately his discharge will be canceled from today and I will see him tomorrow and we will po ssibly discharge him to go home tomorrow. ODESSA/MODL Voice ID: [id number] Report ID: [id number]
--- NOTE | 2018-07-12 04:20 | DS ---
Date of Discharge: 07/11/2018 The patient was seen this morning for followup. He was lying in bed, feeling much better. Denies an y shortness of breath. ODESSA/MODSheridan Voice ID: [id number] Report ID: [id number]
[2018-07-13 20:27] LABS: HBsAG Nonreactive (Nonreactive)
== END 2018-07-11 13:18 | disposition home or self-care (01) | DRG 190 ==
LOC: ER 21:30 → 4TH 07-07 01:40
PROVIDERS: ADMIT Internal Medicine; ATTEND Internal Medicine
PROC: 5A1D70Z Performance of Urinary Filtration, Intermittent, Less than 6 Hours Per Day (ICD-10-PCS; principal; 2018-07-07)
PROC: 5A1D70Z Performance of Urinary Filtration, Intermittent, Less than 6 Hours Per Day (ICD-10-PCS; 2018-07-09)
PROC: 5A1D70Z Performance of Urinary Filtration, Intermittent, Less than 6 Hours Per Day (ICD-10-PCS; 2018-07-10)
DX: J44.1 Chronic obstructive pulmonary disease with (acute) exacerbation (principal); N18.6 End stage renal disease; I50.43 Acute on chronic combined systolic (congestive) and diastolic (congestive) heart failure; J96.01 Acute respiratory failure with hypoxia; I13.2 Hypertensive heart and chronic kidney disease with heart failure and with stage 5 chronic kidney disease, or end stage renal disease; E87.3 Alkalosis; E11.22 Type 2 diabetes mellitus with diabetic chronic kidney disease; Z99.2 Dependence on renal dialysis; D63.1 Anemia in chronic kidney disease; I25.10 Atherosclerotic heart disease of native coronary artery without angina pectoris; K57.90 Diverticulosis of intestine, part unspecified, without perforation or abscess without bleeding; M19.90 Unspecified osteoarthritis, unspecified site; J30.9 Allergic rhinitis, unspecified; Z85.46 Personal history of malignant neoplasm of prostate; K21.9 Gastro-esophageal reflux disease without esophagitis; Z88.1 Allergy status to other antibiotic agents; Z88.5 Allergy status to narcotic agent; Z91.013 Allergy to seafood; G47.30 Sleep apnea, unspecified; E87.5 Hyperkalemia; N25.0 Renal osteodystrophy; I95.3 Hypotension of hemodialysis; Z95.810 Presence of automatic (implantable) cardiac defibrillator; J20.9 Acute bronchitis, unspecified; J44.0 Chronic obstructive pulmonary disease with (acute) lower respiratory infection; E87.70 Fluid overload, unspecified
CPT/HCPCS: 36415; 71045; 80048; 80076; 82805; 82962; 83605; 83735; 83880; 84145; 84484; 85025; 85610; 86704; 86706; 86803; 87040; 87340; 90935; 93005; 94640; 99285; J0696; J1644; J2930; J7512; J7605; P9047; Q4081

== ENCOUNTER 2018-07-12 11:33 | Emergency (ER) | payer OTHER, MEDICARE ==
--- OUTSIDE RECORDS SUMMARY | 2018-07-12 11:36 | XMS REPORT ---
:1940 [facility] Address [address] [place] [address] Dr. Vargas [address] [place] [id number] Care Team Providers Name Role Phone Unavailable Unavailable Unavailable Problems This patient has no known problems. Allergies, Adverse Reactions, Alerts This patient has no known allergies or adverse reactions. Medications This patient has no known medications.
--- OUTSIDE RECORDS SUMMARY | 2018-07-12 11:36 | XMS REPORT | Clinical Summary ---
:1940 Author Organization [facility] Address [address] [place] [address] Care Team Providers Name Role Phone Anmol [...] Overview: Added automatically from request for surgery [id number] Coronary artery disease involving [place] coronary artery of [place] heart 07/22 without angina pectoris Overview: Added automatically from request for surgery [id number] Chest pain 07/22/2017 Overview: Added automatically from request for surgery [id number] Angina pectoris 07/21/2017 Coronary artery disease of [place] artery of [place] heart with stable 2017 angina pectoris Automatic [...] Dx); MD Susan Coronary artery disease involving [place] coronary artery of [place] heart without angina pectoris 07/30/2017 Surgery Procedural Ascencion Quintero Cv selective Cardiology MD Susan coronary angiography [[id number] (CPT)] 07/30/2017 Hospital Encounter Procedural Ascencion Quintero PAD (peripheral artery disease); Cardiology MD Susan Coronary artery disease involving [place] coronary artery of [place] heart without angina pectoris; Chest pain, unspecified type; Unstable angina 07/22/2017 Orders Only Cardiology Justin Ojeda MA PAD (peripheral artery disease) (Primary Dx); Coronary artery disease involving [place] coronary artery of [place] heart without angina pectoris; Chest pain, unspecified type; Unstable angina 07/21/2017 Office Visit Cardiology Ascencion Quintero Angina pectoris (Primary Dx ); MD Susan Systolic congestive heart failure, unspecified congestive heart failure chronicity; PAD (peripheral artery disease); Coronary artery disease of [place] artery of [place] heart with stable angina pectoris after 07/11/2017 Family History Relation Name Status Comments Father [...] Taken Blood Pressure 108/53 04/27/2018 11:28 AM GENERAL MAINTENANCE ENGINEER Pulse 94 04/27/2018 11:28 AM GENERAL MAINTENANCE ENGINEER Temperature 36.4 C (97.6 F) 07/30/2017 11:00 AM CDT Respiratory Rate 20 07/30/2017 4:15 PM CDT Oxygen Saturation 98% 07/30/2017 3:45 PM CDT Inhaled Oxygen Concentration - - Weight 138 kg (305 lb) 04/27/2018 11:28 AM GENERAL MAINTENANCE ENGINEER Height 180.3 cm (5' 11") 04/27/2018 11:28 AM GENERAL MAINTENANCE ENGINEER Body Mass Index 42.54 04/27/2018 11:28 AM GENERAL MAINTENANCE ENGINEER Plan of Treatment Date Type Specialty Care Team Description 10/26/2018 Office Visit Cardiology Ascencion Quintero MD [address] [address] Health Maintenance Due Date Last Done Comments SHINGLES VACCINES (#1) 1989 65+ PNEUMOCOCCAL VACCINE (1 of 2 - PCV13) 01/17/2004 PNEUMOCOCCAL POLYSACCHARIDE VACCINE AGE 65 AND OVER 01/17/2004 INFLUENZA VACCINE 11/11/2017 Implants Implanted Type Area Bottle Dealer Device Shelf Model / Identifier Expiration Serial / Date Lot Device Vasclr Clsr Vasoactive Intstnl Peptd 8fr Angio-Seal - [id number] Cardiovascular N/A: 06/10/2017 [id number] / Implanted: 08/07/2016 (Quantity not on file) Implants N/A / [id number] Stent Bili Protege Everflex Slf-Xpndbl 120cm [id number] - [id number] Coronary Stents N/A: [employer] 05/03/2017 [id number] 100 120 / Implanted: 08/07/2016 (Quantity not on file) N/A / [id number] Procedures Procedure Name Priority Date/Time Associated Comments Diagnosis ECHOCARDIOGRAM 2D Routine 05/03/2018 5:01 Cardiomyopathy, Results for this COMPLETE W MMODE PM GENERAL MAINTENANCE ENGINEER unspecified type procedure are in SPECTRAL COLOR DOPPLER (HCC) the results (44969) Chest pain, section. unspecified type ECG 12-LEAD Routine 04/27/2018 11:33 Cardiomyopathy, Results for this AM GENERAL MAINTENANCE ENGINEER unspecified type procedure are in (HCC) the results section. CV SELECTIVE CORONARY Routine 07/30/2017 2:17 Unstable angina Results for this ANGIOGRAPHY PM CDT PAD (peripheral procedure are in artery disease) the results Coronary artery section. disease involving [place] coronary artery of [place] heart without angina pectoris Chest pain, unspecified [...] are in SPECTRAL COLOR DOPPLER the results (66103) section. ECG 12-LEAD Routine 07/21/2017 9:06 Systolic congestive Results for this AM CDT heart failure, procedure are in unspecified the results congestive heart section. failure chronicity after 07/11/2017 Results Echocardiogram complete w contrast and 3D if needed (05/03/2018 5:01 PM GENERAL MAINTENANCE ENGINEER) Narrative Performed At [facility] Echocardiography Report Pat.Name:DILLON GARIBAY Pat.ID:[id number] .Date: 05/03/2018 Refer.MD:ASCENCION QUINTERO MD Exam Time: 3:40:00 PMStudy Type:Routine Echo Height:71inWeight: 305lb BSA: 2.53 m2 DOBAge:1940,78Y Sex: MALEBP:108/53 HR:70 bpm Sonogrphr: EZRA Costello FASE Pat. Stat.:OutpatientRoom:[facility] Study Status:Final Echo Event ID:[id number] Order ID:[id number] Reason for Study:Cardiomyopathy with no status change [...] RAPof 5 mmHg. MEASUREMENTS: 2D Parasternal [place] LVOT 2.2 cmLA Ds4.9 cm LVIDd6 cmIndex2.4 cm/m Ao An1.9 cm LVIDs5.1 cmAo Rtd 3.4 cm Index1.4 cm/m LV%fs 13.9 % LV Igqt664.8 g(122-174) IVSd 1.3 cmLVM Zppoi333.4 g/m2 LVPWd1.3 cmRWT0.5 LA Sng Plane LA [...] Radiology Results In - 05/04/2018 2:44 PM GENERAL MAINTENANCE ENGINEER [facility] Echocardiography Report Pat.Name: DILLON GARIBAY Pat.ID: [id number] .Date: 05/03/2018 Refer.MD: ASCENCION QUINTERO MD Exam Time: 3:40:00 PM Study Type:Routine Echo Height: 71in Weight: 305lb BSA: 2.53 m2 Age: 1001/16/1940,78Y Sex: MALE BP: 108/53 HR: 70 bpm Sonogrphr: EZRA Costello FASE Pat. Stat.:Outpatient Room: [facility] Study Status:Final Echo Event ID:[id number] Order ID: [id number] Reason for Study:Cardiomyopathy with no status change [...] of 5 mmHg. MEASUREMENTS: 2D Parasternal [place] LVOT 2.2 cm LA Ds 4.9 cm [...] PM Ayo Polk M.D. Performing Organization Address [facility] Phone Number [facility] [address] [place] [address] ECG 12 lead (04/27/2018 11:33 AM GENERAL MAINTENANCE ENGINEER)Only the most recent of2 resultswithin the time period is included. Ventricular rate 87 [facility] MUSE Atrial rate 87 [facility] MUSE VA interval 164 [facility] MUSE QRSD interval 154 [facility] MUSE QT interval 444 [facility] MUSE QTC interval 534 [facility] MUSE P axis 1 60 [facility] MUSE QRS axis 1 -16 [facility] MUSE T wave axis -73 [facility] MUSE EKG impression Atrial-sensed ventricular-paced [facility] MUSE rhythm-Abnormal ECG-In automated comparison with ECG of 21-JUL-2017 09:06,-Electronic ventricular pacemaker has replaced Sinus rhythm- Narrative Performed At Performing Organization Address [facility] Phone Number [facility] MUSE [address] [place] [address] Cv clinical lab technologist procedure (07/30/2017 2:17 PM CDT) Narrative Performed At 1. Non obstructive CAD [facility] 2. 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 Prothrombin time 14.5 12.0 - 15.0 sec [facility] DEPARTMENT OF PATHOLOGY AND GENOMIC MEDICINE INR 1.1 [facility] DEPARTMENT OF Comment: PATHOLOGY AND GENOMIC The International Normalized Ratio (INR) is a therapeutic MEDICINE monitoring tool for patients who are stable on oral anticoagulant therapy. An INR of 2.0-3.0 is suggested for deep vein thrombosis/pulmonary embolism. Specimen Blood Performing Organization Address [facility] Phone Number [facility] DEPARTMENT OF PATHOLOGY AND [address] [place] [id number] [employer] MEDICINE Estimated GFR (07/30/2017 11:39 AM CDT) GFR Non Af Amer 8 (A) mL/min/1.73 m2 [facility] DEPARTMENT OF PATHOLOGY AND GENOMIC MEDICINE GFR Af Amer 10 (A) mL/min/1.73 m2 [facility] DEPARTMENT OF Comment: PATHOLOGY AND GENOMIC Chronic [...] Americans. Specimen Plasma specimen Performing Organization Address [facility] Phone Number [facility] DEPARTMENT OF PATHOLOGY AND [address] [place] [address] [employer] CK-MB (07/30/2017 11:39 AM CDT) CK-MB 1.3 1.0 - 10.4 ng/mL [facility] DEPARTMENT OF PATHOLOGY Comment: AND [employer] As of Aug 11 2017, this test will no longer be available in [facility]. Specimen Plasma specimen Narrative Performed At [facility] to perform testing, specimen is [facility] DEPARTMENT OF PATHOLOGY AND GENOMIC HEMOLYZED.Recollect MEDICINE requested for K (tests).KENDALL MIRELES/MIKA (name/location) notified by PR1 (tech ID) at07/30/201712:35(date/time). Credit issued. Performing Organization Address City/State/Zipcode Phone Number [facility] DEPARTMENT OF PATHOLOGY AND [address] [place], [place] [id number] [employer] Basic metabolic panel (07/30/2017 11:39 AM CDT) Sodium 136 135 - 148 mEq/L [facility] DEPARTMENT OF PATHOLOGY AND GENOMIC MEDICINE Potassium SEE COMMENT 3.5 - 5.0 mEq/L [facility] DEPARTMENT OF PATHOLOGY Comment: AND [employer] Footnote--------- HEMOLYZED Chloride 94 (L) 98 - 112 mEq/L [facility] DEPARTMENT OF PATHOLOGY AND GENOMIC MEDICINE CO2 28 24 - 31 mEq/L [facility] DEPARTMENT OF PATHOLOGY AND GENOMIC MEDICINE Anion gap 14 7 - 15 mEq/L [facility] DEPARTMENT OF PATHOLOGY Comment: AND [facility] Starting from July , anion gap calculation no longer incorporates potassium. Please note the change. BUN 20 8 - 23 mg/dL [facility] DEPARTMENT OF PATHOLOGY AND GENOMIC MEDICINE Creatinine 6.4 (H) 0.7 - 1.2 mg/dL [facility] DEPARTMENT OF PATHOLOGY AND GENOMIC MEDICINE Glucose 108 (H) 65 - 99 mg/dL [facility] DEPARTMENT OF PATHOLOGY AND GENOMIC MEDICINE Calcium 9.4 8.8 - 10.2 mg/dL [facility] DEPARTMENT OF PATHOLOGY AND GENOMIC MEDICINE Specimen Plasma specimen Performing Organization Address City/[facility] Phone Number [facility] DEPARTMENT OF PATHOLOGY AND [address] [place] [address] [facility] COPY RECEIVED FROM: (07/27/2017 11:55 AM CDT) Copy received from: [facility] Comment: [address] [facility] [address] [place] [address] Narrative Performed At FASTING:NO [facility] FASTING: NO Performing Organization Address City/[facility] Phone Number [facility] COPY(IES) SENT TO: (07/27/2017 11:55 AM CDT) Copies/mL [facility] Comment: DONNA [address] [facility] [address] [place] [address] Narrative Performed At FASTING:NO [facility] FASTING: NO Performing Organization Address [facility] Phone Number [facility] Partial thromboplastin time, activated (07/27/2017 11:55 AM CDT) PTT 33 22 - 34 sec [facility] [place] Comment: This test has not been validated for monitoring unfractionated heparin therapy. For testing that is validated for this type of therapy, please refer to the Heparin Anti-Xa assay (test code 50897). For additional information, please refer to http://education.Mercury Puzzle/faq/TGI902 (This link is being provided for informational/educational purposes only.) Narrative Performed At FASTING:NO [facility] FASTING: NO Resulting Agency Comment Performing Organization Information: Site ID: [id number] Name: [facility] Address: [address] [place] [id number] Director: Lea Hanna Performing Organization Address City/[facility]/Zipcode Phone Number [employer] [address] [address] CBC with platelet and differential (07/27/2017 11:55 AM CDT) WBC 5.4 3.8 - 10.8 Thousand/uL [facility] [place] RBC 3.07 (L) 4.20 - 5.80 Million/uL [facility] [place] HGB 9.6 (L) 13.2 - 17.1 g/dL [facility] [place] HCT 29.6 (L) 38.5 - 50.0 % [facility] [place] MCV 96.4 80.0 - 100.0 fL [facility] [place] MCH 31.3 27.0 - 33.0 pg [facility] [place] MCHC 32.4 32.0 - 36.0 g/dL [facility] [place] RDW 15.9 (H) 11.0 - 15.0 % [facility] [place] Platelet count 161 140 - 400 Thousand/uL [facility] [place] MPV 11.8 7.5 - 12.5 fL [facility] [place] Neutrophils, absolute 3,218 1,500 - 7,800 cells/uL [facility] [place] Lymphocytes, absolute 1,161 850 - 3,900 cells/uL [facility] [place] Monocytes, absolute 562 200 - 950 cells/uL [facility] [place] Eosinophils, absolute 400 15 - 500 cells/uL [facility] [place] Basophils, absolute 59 0 - 200 cells/uL [facility] [place] Neutrophils 59.6 % [facility] [place] Lymphocytes 21.5 % [facility] [place] Monocytes 10.4 % [facility] [place] Eosinophils 7.4 % [facility] [place] Basophils + RC 1.1 % [facility] [place] Specimen Blood Narrative Performed At FASTING:NO [facility] FASTING: NO Resulting Agency Comment Performing Organization Information: Site ID: [id number] Name: [facility] Address: [address] [place] [address] Director: Lea Hanna Performing Organization Address City/State/Zipcode Phone Number [employer] [address] [address] Comprehensive metabolic panel (07/27/2017 11:55 AM CDT) Glucose 168 (H) 65 - 139 mg/dL [facility] Comment: [place] Non-fasting reference interval BUN, whole blood 11 7 - 25 mg/dL [facility] Creatinine 4.59 (H) 0.70 - 1.18 [facility] Comment: mg/dL [place] For patients >49 years of age, the reference limit for Creatinine is approximately 13% higher for people identified as -Guamanian. EGFR Non-Afr. [place]ian 11 (L) > OR=60 [facility] mL/min/1.73m2 [place] EGFR 13 (L) > OR=60 [facility] mL/min/1.73m2 [place] BUN/creatinine ratio 2 (L) 6 - 22 (calc) [facility] [place] Sodium 138 135 - 146 mmol/L [facility] [place] Potassium 3.9 3.5 - 5.3 mmol/L [facility] [place] Chloride 99 98 - 110 mmol/L [facility] [place] CO2 29 20 - 31 mmol/L [facility] [place] Calcium 9.2 8.6 - 10.3 mg/dL [facility] [place] Protein 7.3 6.1 - 8.1 g/dL [facility] [place] Albumin, S 4.1 3.6 - 5.1 g/dL [facility] Globulin, total 3.2 1.9 - 3.7 g/dL [facility] (calc) [place] Albumin/globulin ratio 1.3 1.0 - 2.5 (calc) [facility] Total bilirubin 0.4 0.2 - 1.2 mg/dL [facility] Alkaline phosphatase 135 (H) 40 - 115 U/L [facility] [place] AST 11 10 - 35 U/L [facility] ALT 7 (L) 9 - 46 U/L [facility] [place] Specimen Blood Narrative Performed At FASTING:NO [facility] FASTING: NO Resulting Agency Comment Performing Organization Information: Site ID: [id number] Name: [facility] Address: [address] [place] [address] Director: Lea Hanna Performing Organization Address City/State/Zipcode Phone Number [place] [phone] Echocardiogram complete w contrast and 3D if needed (07/21/2017 11:22 AM CDT) Narrative Performed At [facility] Echocardiography Report Pat.Name:DILLON GARIBAY Pat.ID:[id number] St.Date: 07/21/2017 Refer.MD:ASCENCION QUINTERO MD Exam Time: 11:56:00 AM Study Type:Routine Echo Height:71inWeight: 307lb BSA: 2.53 m2 DOBAge:1940,77Y Sex: MALEBP:117/58 HR:84 bpmSonogrphr: La Kumar RDCS, RVT Pat. Stat.:OutpatientRoom:[facility] Study Status:Final Echo Event ID:[id number] Order ID:[id number] Reason for Study:Systolic congestive heart failure, coronary [...] of 10 mmHg. MEASUREMENTS: 2D Parasternal [place] LVOT 2.1 cmLA Ds5 cm LVIDd6 cmIndex2.4 cm/m Ao An2.2 cm LVIDs5.1 cmAo Rtd 2.6 cm Index1 cm/m LV%fs 16 % LV Evvz238.6 g(122-174) IVSd 1.4 cmRWT0.5 LVPWd1.5 cm LA Sng Plane LA Area 22.5 cm2(8.8-23.4) LA Vol74 ml Index29.3 ml/m LA LngAx 5.7 cm DOPPLER AV For Flow/Valve Assess AV pkVel 280 cm/s (100-170) AV ET330 msec AV mnVel 194.9 cm/Mariah AC/ET 0.4 AV pkPG 31.4 mmHgAV TVI64.3 cm AV Mean G 18.3 mmHgAVpkAcRt 06054.2 cm/s2 AV AC140 msec (83-118) AV Area-Cont. Eq. LVOT Area3.5 cm2 AV TVI64.3 cm LVOT TVI17.3 cmAV Area0.9 cm2(3-5) AV SV 59.8 ml Signed 07/21/2017 3:58:00 PM Gloria Lira M.D. Procedure Note Interface, Radiology Results In - 08/11/2017 11:05 AM CDT [facility] Echocardiography Report Pat.Name: DILLON GARIBAY Pat.ID: [id number] .Date: 07/21/2017 Refer.MD: ASCENCION QUINTERO MD Exam Time: 11:56:00 AM Study Type:Routine Echo Height: 71in Weight: 307lb BSA: 2.53 m2 Age: 1001/16/1940,77Y Sex: MALE BP: 117/58 HR: 84 bpm Sonogrphr: La Kumar RDCS, RVT Pat. Stat.:Outpatient Room: [facility] Study Status:Final Echo Event ID:[id number] Order ID: [id number] Reason for Study:Systolic congestive heart failure, coronary [...] of 10 mmHg. MEASUREMENTS: 2D Parasternal [place] LVOT 2.1 cm LA Ds 5 cm [...] cm AV Mean G 18.3 mmHg AVpkAcRt 04924.2 cm/s2 AV AC 140 msec (83-118) AV Area-Cont. Eq. LVOT Area 3.5 cm2 AV TVI 64.3 cm LVOT TVI 17.3 cm AV Area 0.9 cm2 (3-5) AV SV 59.8 ml Signed 07/21/2017 3:58:00 PM Gloria Lira M.D. Performing Organization Address City/State/Zipcode Phone Number [facility] [address] [place] [address] after 07/11/2017 Insurance Payer Benefit Plan / Group Subscriber ID Type Phone Address MEDICARE MEDICARE PART A AND B xxxxxxxxxx Medicare [place], [place] AARP AARP SUPPLEMENT xxxxxxxxxxx Commercial (Home) [phone] [place], [place] (Work) [address] Advance Directives Patient has advance care planning documents on file. For more information, please contact:Greer Wittbfecs[address] [place] [address]
--- NOTE | 2018-07-12 12:51 | ER ---
Nurse's Notes [facility] Name: Sergio Perez Age: 78 yrs Sex: Male : 1940 Arrival Date: 07/12/2018 Time: 11:34 Bed 18 Private MD: Anmol Salazar Diagnosis: Complications following infusion, transfusion and therapeutic injection Presentation: 07/12 11:51 Presenting complaint: Patient states: right arm/shoulder pain started yesterday. Pt was sv discharged from here yesterday and was given a Heparin injection on the right arm. Hematoma is palpable on the right arm. Transition of care: patient was not received from another setting of care. Onset of symptoms was July 11, 2018. Care prior to arrival: None. 11:51 Method Of Arrival: Wheelchair sv 11:51 Acuity: KARLENE 4 sv 12:45 Risk Assessment: Do you want to hurt yourself or someone else? Patient reports no ph desire to harm self or others. Initial Sepsis Screen: Does the patient meet any 2 criteria? No. Patient's initial sepsis screen is negative. Does the patient have a suspected source of infection? No. Patient's initial sepsis screen is negative. Triage Assessment: 11:51 General: Appears in no apparent distress. uncomfortable, well developed, Behavior is sv calm, cooperative, appropriate for age. Pain: Complains of pain in right tricep Pain currently is 9 out of 10 on a pain scale. Neuro: Level of Consciousness is awake, alert, obeys commands, Oriented to person, place, time, situation, Moves all extremities. Full function. Respiratory: Respiratory effort is even, unlabored, Respiratory pattern is regular, symmetrical. Musculoskeletal:. Musculoskeletal: Range of motion: intact in all extremities, Swelling present in right bicep and right tricep. Historical: - Allergies: 11:53 Cipro; sv 11:53 Demerol; sv 11:53 Iodine; sv 11:53 SHELLFISH; sv - PMHx: 11:53 CHF; COPD; Diabetes - NIDDM; Dialysis; M-W-F; ESRD; GERD; Gout; Hypertension; sv Pacemaker; with defib; - PSHx: 11:53 Cholecystectomy; Appendectomy; tracheostomy; sv - Immunization history:: Adult Immunizations unknown. - Social history:: The patient lives at home, Smoking status: Patient/guardian denies using tobacco. - Ebola Screening: : No symptoms or risks identified at this time. Screenin:45 Abuse screen: Denies threats or abuse. Denies injuries from another. Nutritional ph screening: No deficits noted. Tuberculosis screening: No symptoms or risk factors identified. Fall Risk None identified. Assessment: 12:45 General: Appears in no apparent distress. comfortable, well groomed, Behavior is calm, ph cooperative, appropriate for age. Pain: Complains of pain in right arm. Neuro: Level of Consciousness is awake, alert, obeys commands, Oriented to person, place, time, situation. Cardiovascular: Capillary refill < 3 seconds in bilateral fingers Patient's skin is warm and dry. Respiratory: Airway is patent Respiratory effort is even, unlabored, Denies shortness of breath. Derm: Skin is healthy with good turgor, Skin is pink, warm \T\ dry. Musculoskeletal: Circulation, motion, and sensation intact. Swelling absent. Vital Signs: 11:51 BP 119 / 53; Pulse 77; Resp 20; Temp 98; Pulse Ox 97% ; Weight 135.17 kg; Height 5 ft. sv 11 in. (180.34 cm); Pain 9/10; 11:51 Body Mass Index 41.56 (135.17 kg, 180.34 cm) sv ED Course: 11:34 Patient arrived in ED. mr 11:35 Anmol Salazar MD is Private Physician. mr 11:52 Triage completed. sv 11:53 Arm band placed on. sv 12:38 Alba Espinosa RN is Primary Nurse. ph 12:38 Mark Almaguer MD is Attending Physician. gs 12:45 Patient has correct armband on for positive identification. Bed in low position. Call ph light in reach. 13:25 No provider procedures requiring assistance completed. Patient did not have IV access ph during this emergency room visit. Administered Medications: No medications were administered Outcome: 12:50 Discharge ordered by . gs 13:26 Patient left the ED. ph 13:26 Discharged to home ambulatory. ph 13:26 Condition: good 13:26 Discharge instructions given to patient, Instructed on discharge instructions, follow up and referral plans. Demonstrated understanding of instructions, follow-up care. Signatures: Margo Greene RN RN Ame Veloz mr Alba Espinosa RN RN Mark Almaguer MD MD gs Corrections: (The following items were deleted from the chart) 11:53 11:51 Pulse 77bpm; Resp 20bpm; Pulse Ox 97%; sv sv
--- NOTE | 2018-07-12 12:51 | EDPHYS ---
Physician Documentation [facility] Name: Sergio Perez Age: 78 yrs Sex: Male : 1940 Arrival Date: 07/12/2018 Time: 11:34 Bed 18 Private MD: Anmol Salazar ED Physician Mark Almaguer HPI: 07/12 12:44 This 78 yrs old Black Male presents to ER via Wheelchair with complaints of Shoulder gs Pain. 12:44 The patient or guardian complains of pain, swelling. right tricep. Onset: The gs symptoms/episode began/occurred INJECTION SITE FOR LOVENOX WAS JUST IN HOSPITAL. Modifying factors: The symptoms are aggravated by movement, rotation of arm. Associated signs and symptoms: Pertinent negatives: tingling, FEVER, REDNESS. Severity of symptoms: At their worst the symptoms were moderate, in the emergency department the symptoms are unchanged. Historical: - Allergies: 11:53 Cipro; sv 11:53 Demerol; sv 11:53 Iodine; sv 11:53 SHELLFISH; sv - PMHx: 11:53 CHF; COPD; Diabetes - NIDDM; Dialysis; M-W-F; ESRD; GERD; Gout; Hypertension; sv Pacemaker; with defib; - PSHx: 11:53 Cholecystectomy; Appendectomy; tracheostomy; sv - Immunization history:: Adult Immunizations unknown. - Social history:: The patient lives at home, Smoking status: Patient/guardian denies using tobacco. - Ebola Screening: : No symptoms or risks identified at this time. ROS: 12:44 All other systems are negative. gs Exam: 12:44 Constitutional: The patient appears alert, awake. gs 12:44 Musculoskeletal/extremity: Extremities: noted in the right tricep: tenderness, MILD TENDERNESS OVER INJECTION SITE, MINIMAL INDURATION, NO CELLULITIS, Pulses: are normal with no appreciated deficits, Sensation intact. Vital Signs: 11:51 BP 119 / 53; Pulse 77; Resp 20; Temp 98; Pulse Ox 97% ; Weight 135.17 kg; Height 5 ft. sv 11 in. (180.34 cm); Pain 9/10; 11:51 Body Mass Index 41.56 (135.17 kg, 180.34 cm) sv MDM: 12:44 Patient medically screened. gs 12:44 Data reviewed: vital signs, nurses notes. gs Administered Medications: No medications were administered Disposition: 07/12/18 12:50 Discharged to Home. Impression: Complications following infusion, transfusion and therapeutic injection. - Condition is Stable. - Discharge Instructions: Post-Injection Inflammatory Reaction. - Medication Reconciliation Form, Thank You Letter, Antibiotic Education, Prescription Opioid Use form. - Follow up: Private Physician; When: 2 - 3 days; Reason: Re-evaluation by your physician. Signatures: Margo Greene RN RN Alba Espinosa RN RN Mark Almaguer MD MD Corrections: (The following items were deleted from the chart) 13:26 12:50 07/12/2018 12:50 Discharged to Home. Impression: Complications following ph infusion, transfusion and therapeutic injection. Condition is Stable. Forms are Medication Reconciliation Form, Thank You Letter, Antibiotic Education, Prescription Opioid Use. Follow up: Private Physician; When: 2 - 3 days; Reason: Re-evaluation by your physician.
[2018-07-12 15:12] VITALS: BP 119/53; TEMP 98; O2SAT 97
== END 2018-07-12 13:26 | disposition home or self-care (01) ==
LOC: ER 11:33
DX: T80.89XA Other complications following infusion, transfusion and therapeutic injection, initial encounter (principal); M79.621 Pain in right upper arm; E11.22 Type 2 diabetes mellitus with diabetic chronic kidney disease; I13.2 Hypertensive heart and chronic kidney disease with heart failure and with stage 5 chronic kidney disease, or end stage renal disease; N18.6 End stage renal disease; I50.9 Heart failure, unspecified; Z99.2 Dependence on renal dialysis; Z88.8 Allergy status to other drugs, medicaments and biological substances; Z88.1 Allergy status to other antibiotic agents; Z88.5 Allergy status to narcotic agent; Z91.013 Allergy to seafood
CPT/HCPCS: 99281

== ENCOUNTER 2018-09-12 09:43 | Inpatient (IN) | payer OTHER, MEDICARE ==
--- OUTSIDE RECORDS SUMMARY | 2018-09-12 09:45 | XMS REPORT | Clinical Summary ---
:1940 Author Organization [facility] Address [address] [place] [address] Care Team Providers Name Role Phone Anmol [...] Each Nare mcg/actuation nasal route daily. spray ipratropium 2 sprays into 0 Active (ATROVENT) [...] 0 04/18/2018 Active (DELTASONE) 10 mg tablet clopidogrel (PLAVIX) Take 1 tablet 90 tablet 3 09/09/2018 Active 75 mg tablet (75 mg total) by mouth daily. clopidogrel (PLAVIX) Take 1 tablet 90 tablet 3 03/25/2017 09/09/2018 Discontinued 75 mg tablet (75 mg total) by mouth daily. Active Problems Problem Noted Date Unstable angina 07/22/2017 Overview: Added automatically from request for surgery [id number] Coronary artery disease involving [place] coronary artery of [place] heart 07/22 without angina pectoris Overview: Added automatically from request for surgery [id number] Chest pain 07/22/2017 Overview: Added automatically from request for surgery [id number] Angina pectoris 07/21/2017 Coronary artery disease of [place] artery of [place] heart with stable 2017 angina pectoris Automatic implantable cardioverter-defibrillator in situ 03/10/2017 PAD (peripheral artery disease) 08/05/2016 Cardiomyopathy 08/05/2016 Systolic congestive heart failure 08/05/2016 Encounters Date Type Specialty Care Team Description 09/09/2018 Orders Only Cardiology Justin Ojeda MA 04/27/2018 Office Visit Cardiology Ad Quintero MD Chest pain, unspecified type (Primary Dx); Cardiomyopathy, unspecified type (HCC) after 09/11/2017 Family History Relation Name Status Comments Father [...] Taken Blood Pressure 108/53 04/27/2018 11:28 AM OPTOM[facility]ST Pulse 94 04/27/2018 11:28 AM [facility]OM[facility] Temperature - - Respiratory Rate - - Oxygen Saturation - - Inhaled Oxygen Concentration - - Weight 138 kg (305 lb) 04/27/2018 11:28 AM [facility] Height 180.3 cm (5' 11") 04/27/2018 11:28 AM OPTOMETRI[facility] Body Mass Index 42.54 04/27/2018 11:28 AM [facility]OMET[facility]ST Plan of Treatment Date Type Specialty Care Team Description 10/26/2018 Office Visit Cardiology Ad Quintero MD [address] [address] Health Maintenance Due Date Last Done Comments SHINGLES VACCINES (#1) 1989 65+ PNEUMOCOCCAL VACCINE (1 of 2 - PCV13) 01/17/2004 PNEUMOCOCCAL POLYSACCHARIDE VACCINE AGE 65 AND OVER 01/17/2004 INFLUENZA VACCINE 11/11/2018 Implants Implanted Type Area Typesetting Supervisor Device Shelf Model / Identifier Expiration Serial / Date Lot Device Vasclr Clsr Vasoactive Intstnl Peptd 8fr Angio-Seal - [id number] Cardiovascular N/A: 06/10/2017 [id number] / Implanted: 08/07/2016 (Quantity not on file) Implants N/A / [id number] Stent Bili Protege Everflex Slf-Xpndbl 120cm 1m683ct - [id number] Coronary Stents N/A: [employer] 05/03/2017 [id number] 100 120 / Implanted: 08/07/2016 (Quantity not on file) N/A / [id number] Procedures Procedure Name Priority Date/Time Associated Comments Diagnosis ECHOCARDIOGRAM 2D Routine 05/03/2018 5:01 Cardiomyopathy, Results for this COMPLETE W MMODE PM OPTOMETRIST unspecified type procedure are in SPECTRAL COLOR DOPPLER (HCC) the results ([id number]) Chest pain, section. unspecified type ECG 12-LEAD Routine 04/27/2018 11:33 Cardiomyopathy, Results for this AM OPTOMETRIST unspecified type procedure are in (HCC) the results section. after 09/11/2017 Results Echocardiogram complete w contrast and 3D if needed (05/03/2018 5:01 PM OPTOMETRIST) Specimen Narrative Performed At [facility] Echocardiography Report Pat.Name:DILLON GARIBAY Pat.ID:[id number] St.Date: 05/03/2018 Refer.MD:AD QUINTERO MD Exam Time: 3:40:00 PMStudy Type:Routine Echo Height:71inWeight: 305lb BSA: 2.53 m2 DOBAge:1940,78Y Sex: MALEBP:108/53 HR:70 bpm Sonogrphr: EZRA Costello FASE Pat. Stat.:OutpatientRoom:[facility] Study Status:Final Echo Event ID:[id number] Order ID:[id number] Reason for Study:Cardiomyopathy with no status change [...] RAPof 5 mmHg. MEASUREMENTS: 2D Parasternal Long Vance LVOT 2.2 cmLA Ds4.9 cm LVIDd6 cmIndex2.4 cm/m Ao An1.9 cm LVIDs5.1 cmAo Rtd 3.4 cm Index1.4 cm/m LV%fs 13.9 % LV Ifrb359.8 g(122-174) IVSd 1.3 cmLVM Kokwf152.4 g/m2 LVPWd1.3 cmRWT0.5 LA Sng Plane LA [...] Radiology Results In - 05/04/2018 2:44 PM [facility] Echocardiography Report Pat.Name: DILLON GARIBAY Pat.ID: [id number] St.Date: 05/03/2018 Refer.MD: AD QUINTERO MD Exam Time: 3:40:00 PM Study Type:Routine Echo Height: 71in Weight: 305lb BSA: 2.53 m2 Age: 1001/16/1940,78Y Sex: MALE BP: 108/53 HR: 70 bpm Sonogrphr: EZRA Costello FASE Pat. Stat.:Outpatient Room: [facility] Study Status:Final Echo Event ID:[id number] Order ID: [id number] Reason for Study:Cardiomyopathy with no status change [...] of 5 mmHg. MEASUREMENTS: 2D Parasternal Long Vance LVOT 2.2 cm LA Ds 4.9 cm [...] PM Ayo Polk M.D. Performing Organization Address City[facility] [address] [place] [address] ECG 12 lead (04/27/2018 11:33 AM OPTOMET[facility]ST) Ventricular rate 87 [facility] Atrial rate 87 [facility] RI interval 164 [facility] QRSD interval 154 [facility] QT interval 444 [facility] QTC interval 534 HM [facility]USE P axis 1 60 [facility] QRS axis 1 -16 [facility] T wave axis -73 [facility] EKG impression Atrial-sensed HM MUSE ventricular-paced rhythm-Abnormal ECG-In automated comparison with ECG of 21-JUL-2017 09:06,-Electronic ventricular pacemaker has replaced Sinus rhythm- Specimen Narrative Performed At Performing Organization Address [facility] Phone Number [facility] MUSE [address] [place] [address] after 09/11/2017 Insurance Payer Benefit Plan / Subscriber ID Effective Dates Phone Address Type Group MEDICARE MEDICARE PART A xxxxxxxxxx 2004-[place], [place] Medicare AND B t AARP AARP SUPPLEMENT xxxxxxxxxxx 2008-Present Commercial (Work) [id number] Advance Directives Patient has advance care planning documents on file. For more information, please contact:Percy Chance[address] [place] [address]
--- OUTSIDE RECORDS SUMMARY | 2018-09-12 09:45 | XMS REPORT ---
:1940 [facility] Address [address] [place] [address] Dr. Vargas [address] [place] [id number] Care Team Providers Name Role Phone Unavailable Unavailable Unavailable Problems This patient has no known problems. Allergies, Adverse Reactions, Alerts This patient has no known allergies or adverse reactions. Medications This patient has no known medications.
[2018-09-12 10:52] LABS: Absolute Lymphocytes (CBC) 1.2 K/uL (0.7-4.9); Absolute Monocytes 0.7 K/uL (0.1-1.3); Absolute Neutrophil 6.3 K/uL (1.8-8.0); Eosinophils % 1.4 % (0-4.4); Hematocrit 29.9 % (39.6-49.0); MPV 9.6 fL (7.6-11.3); Monocytes % 8.6 % (3.3-12.3); RBC Red Blood Cell Count 3.04 M/uL (4.33-5.43)
[2018-09-12 10:54] LABS: Protime INR 1.11
[2018-09-12 11:22] LABS: Albumin 3.4 g/dL (3.4-5.0); Bilirubin Direct 0.1 mg/dL (0-0.2); Bilirubin Total 0.5 mg/dL (0.2-1.0); Magnesium 2.4 mg/dL (1.8-2.4); Potassium 4.1 mmol/L (3.5-5.1); Protein, Total 6.7 g/dL (6.4-8.2); Troponin (Emerg Dept Use Only) 0.08 ng/mL (0.0-0.045)
[2018-09-12] MEDS ORDERED: METHYLPREDNISOLONE 125 MG INJ ONE (12:09)
[2018-09-12] MEDS ORDERED: LEVALBUTEROL 1.25 MG/3 ML NEB ONE ×2 (12:10→12:17)
[2018-09-12] MEDS ORDERED: IPRATROPIUM BROM 0.5MG/2.5ML ONE ×2 (12:10→12:17)
--- NOTE | 2018-09-12 12:20 | RAD REPORT ---
EXAM DESCRIPTION: Zhanna Single View09/12/2018 10:14 am CLINICAL HISTORY: Shortness of breath COMPARISON: June 2018 FINDINGS: Minimal interstitial pulmonary edema is suspected. The heart is moderately enlarged. Pacemaker leads are in place. Tracheostomy tube noted
--- NOTE | 2018-09-12 12:32 | ER ---
Nurse's Notes [facility] Name: Sergio Perez Age: 78 yrs Sex: Male : 1940 Arrival Date: 09/12/2018 Time: 09:45 Bed 7 Private MD: Diagnosis: Dyspnea;Chronic obstructive pulmonary disease, unspecified;Obesity, unspecified;Unspecified kidney failure-chronic;Type 2 diabetes mellitus;End stage renal disease;Anemia, unspecified;Cardiomegaly;Unspecified combined systolic (congestive) and diastolic (congestive) heart failure Presentation: 09/12 09:45 Presenting complaint: EMS states: Worsening SOB since this morning, hx of COPD and CHF. la1 Transition of care: patient was not received from another setting of care. Onset of symptoms was September 12, 2018. Risk Assessment: Do you want to hurt yourself or someone else? Patient reports no desire to harm self or others. Initial Sepsis Screen: Does the patient meet any 2 criteria? No. Patient's initial sepsis screen is negative. Does the patient have a suspected source of infection? No. Patient's initial sepsis screen is negative. Care prior to arrival: Medication(s) given: Albuterol Neb Atrovent Neb. 09:45 Method Of Arrival: EMS: [facility] la1 09:45 Acuity: KARLENE 3 la1 Historical: - Allergies: 09:48 Cipro; la1 09:48 Demerol; la1 09:48 Iodine; la1 09:48 SHELLFISH; la1 - PMHx: 09:48 CHF; COPD; Diabetes - NIDDM; Dialysis; M-W-F; ESRD; GERD; Gout; Hypertension; la1 Pacemaker; with defib; - Immunization history:: Adult Immunizations up to date. - Social history:: Smoking status: Patient/guardian denies using tobacco. - Ebola Screening: : No symptoms or risks identified at this time. - Family history:: not pertinent. Screenin:25 Abuse screen: Denies threats or abuse. Denies injuries from another. Nutritional sv screening: No deficits noted. Tuberculosis screening: No symptoms or risk factors identified. Fall Risk None identified. Assessment: 10:15 General: Appears in no apparent distress. uncomfortable, well developed, Behavior is sv calm, cooperative, appropriate for age. Pain: Denies pain. Neuro: Level of Consciousness is awake, alert, obeys commands, Oriented to person, place, time, situation, Moves all extremities. Full function. Cardiovascular: Heart tones S1 S2 present Patient's skin is warm and dry. Pulses are 3+ in right radial artery and left radial artery Rhythm is paced. Respiratory: Airway is patent Respiratory effort is even, unlabored, Respiratory pattern is symmetrical, tachypnea Breath sounds are clear bilaterally. Derm: Skin is pink, warm \T\ dry. 11:00 Reassessment: Patient appears in no apparent distress at this time. No changes from sv previously documented assessment. Patient and/or family updated on plan of care and expected duration. Pain level reassessed. Patient is alert, oriented x 3, equal unlabored respirations, skin warm/dry/pink. 12:10 Reassessment: Patient appears in no apparent distress at this time. No changes from sv previously documented assessment. Patient and/or family updated on plan of care and expected duration. Pain level reassessed. Patient is alert, oriented x 3, equal unlabored respirations, skin warm/dry/pink. 13:15 Reassessment: Attempted to call report, nurse to call back. sv Vital Signs: 09:46 BP 103 / 66; Pulse 92; Resp 24; Temp 98.4; Pulse Ox 93% ; Weight 134.72 kg; Height 5 la1 ft. 11 in. (180.34 cm); 11:14 BP 105 / 66; Pulse 79; Resp 22; Pulse Ox 99% on 2 lpm NC; sv 12:10 BP 106 / 62; Pulse 81; Resp 24; Pulse Ox 95% on R/A; sv 13:06 BP 109 / 66; Pulse 75; Resp 19; Temp 98.5; Pulse Ox 97% ; sv 09:46 Body Mass Index 41.42 (134.72 kg, 180.34 cm) la1 ED Course: 09:45 Patient arrived in ED. la1 09:46 Triage completed. la1 09:47 Arm band placed on right wrist. la1 09:50 Patient has correct armband on for positive identification. Placed in gown. Bed in low sv position. Call light in reach. Side rails up X 1. traffic monitor specialist on. Pulse ox on. NIBP on. Door closed. Head of bed elevated. 10:06 Ramona, Margo, RN is Primary Nurse. sv 10:07 Mickey Bro MD is Attending Physician. tono 10:14 XRAY Chest (1 view) In Process Unspecified. EDMS 10:20 Initial lab(s) drawn, by me, sent to lab. Inserted saline lock: 20 gauge in right sv forearm, using aseptic technique. Blood collected. Flushed right forearm with 5 ml normal saline. 12:28 Anmol Salazar MD is Hospitalizing Provider. tono 13:55 No provider procedures requiring assistance completed. Patient admitted, IV remains in sv place. intact. Administered Medications: 12:11 Drug: SOLU-Medrol 125 mg Route: IVP; Site: right forearm; la1 13:05 Follow up: Response: No adverse reaction sv 12:11 Drug: Xopenex 3.75 mg Route: Inhalation; la1 12:11 Drug: AtroVENT Aerosol 0.5 mg Route: Inhalation; la1 Outcome: 12:32 Decision to Hospitalize by Provider. tono 13:45 Admitted to Tele accompanied by tech, via wheelchair, room 404, with oxygen, with sv chart, Report called to Kecia GIBBONS 13:45 Condition: stable 13:45 Instructed on the need for admit. 13:55 Patient left the ED. sv Signatures: Dispatcher [employer] EDMS Margo Greene, RN Mickey Almanzar MD MD cha Attema, Lee RN RN la1
--- NOTE | 2018-09-12 12:32 | EDPHYS ---
Physician Documentation [facility] Name: Sergio Perez Age: 78 yrs Sex: Male : 1940 Arrival Date: 09/12/2018 Time: 09:45 Bed 7 Private MD: ED Physician Mickey Bro HPI: 09/12 10:24 This 78 yrs old Black Male presents to ER via EMS with complaints of Shortness Of tono Breath. 10:24 The patient has shortness of breath at rest. Onset: The symptoms/episode began/occurred tono just prior to arrival. Duration: The symptoms. The patient's shortness of breath has no apparent modifying factors. Associated signs and symptoms: The patient has no apparent associated signs or symptoms. Severity of symptoms: At their worst the symptoms were. The patient has not experienced similar symptoms in the past. Historical: - Allergies: 09:48 Cipro; la1 09:48 Demerol; la1 09:48 Iodine; la1 09:48 SHELLFISH; la1 - PMHx: 09:48 CHF; COPD; Diabetes - NIDDM; Dialysis; M-W-F; ESRD; GERD; Gout; Hypertension; la1 Pacemaker; with defib; - Immunization history:: Adult Immunizations up to date. - Social history:: Smoking status: Patient/guardian denies using tobacco. - Ebola Screening: : No symptoms or risks identified at this time. - Family history:: not pertinent. ROS: 10:24 Constitutional: Negative for fever, chills, and weight loss, Eyes: Negative for injury, tono pain, redness, and discharge, ENT: Negative for injury, pain, and discharge, Neck: Negative for injury, pain, and swelling, Cardiovascular: Negative for chest pain, palpitations, and edema, Abdomen/GI: Negative for abdominal pain, nausea, vomiting, diarrhea, and constipation, Back: Negative for injury and pain, : Negative for injury, bleeding, discharge, and swelling, MS/Extremity: Negative for injury and deformity, Skin: Negative for injury, rash, and discoloration, Neuro: Negative for headache, weakness, numbness, tingling, and seizure, Psych: Negative for depression, anxiety, suicide ideation, homicidal ideation, and hallucinations, Allergy/Immunology: Negative for hives, rash, and allergies, Endocrine: Negative for neck swelling, polydipsia, polyuria, polyphagia, and marked weight changes, Hematologic/Lymphatic: Negative for swollen nodes, abnormal bleeding, and unusual bruising. 10:24 Respiratory: Positive for cough, shortness of breath, at rest. Exam: 10:24 Constitutional: This is a well developed, well nourished patient who is awake, alert, tono and in no acute distress. Head/Face: Normocephalic, atraumatic. Eyes: Pupils equal round and reactive to light, extra-ocular motions intact. Lids and lashes normal. Conjunctiva and sclera are non-icteric and not injected. Cornea within normal limits. Periorbital areas with no swelling, redness, or edema. ENT: Nares patent. No nasal discharge, no septal abnormalities noted. Tympanic membranes are normal and external auditory canals are clear. Oropharynx with no redness, swelling, or masses, exudates, or evidence of obstruction, uvula midline. Mucous membranes moist. Neck: Trachea midline, no thyromegaly or masses palpated, and no cervical lymphadenopathy. Supple, full range of motion without nuchal rigidity, or vertebral point tenderness. No Meningismus. Chest/axilla: Normal chest wall appearance and motion. Nontender with no deformity. No lesions are appreciated. Cardiovascular: Regular rate and rhythm with a normal S1 and S2. No gallops, murmurs, or rubs. Normal PMI, no JVD. No pulse deficits. Abdomen/GI: Soft, non-tender, with normal bowel sounds. No distension or tympany. No guarding or rebound. No evidence of tenderness throughout. Back: No spinal tenderness. No costovertebral tenderness. Full range of motion. Skin: Warm, dry with normal turgor. Normal color with no rashes, no lesions, and no evidence of cellulitis. Neuro: Awake and alert, GCS 15, oriented to person, place, time, and situation. Cranial nerves II-XII grossly intact. Motor strength 5/5 in all extremities. Sensory grossly intact. Cerebellar exam normal. Normal gait. Psych: Awake, alert, with orientation to person, place and time. Behavior, mood, and affect are within normal limits. 10:24 Respiratory: the patient does not display signs of respiratory distress, Respirations: normal, Breath sounds: are clear throughout, Respiratory rate: 24 10:24 Musculoskeletal/extremity: ROM: full active range of motion, full passive range of motion, Circulation is intact in all extremities. Sensation intact. Compartment Syndrome exam of affected extremity: is normal. DVT Exam: no pain, no tenderness, negative Homans' sign noted on exam, no appreciated bluish discoloration, no erythema, no increased warmth, swelling. 10:26 Neck: status trach. [facility] Vital Signs: 09:46 BP 103 / 66; Pulse 92; Resp 24; Temp 98.4; Pulse Ox 93% ; Weight 134.72 kg; Height 5 la1 ft. 11 in. (180.34 cm); 11:14 BP 105 / 66; Pulse 79; Resp 22; Pulse Ox 99% on 2 lpm NC; sv 12:10 BP 106 / 62; Pulse 81; Resp 24; Pulse Ox 95% on R/A; sv 13:06 BP 109 / 66; Pulse 75; Resp 19; Temp 98.5; Pulse Ox 97% ; sv 09:46 Body Mass Index 41.42 (134.72 kg, 180.34 cm) la1 MDM: 10:07 Patient medically screened. [facility] 10:26 Data reviewed: vital signs, nurses notes, lab test result(s), EKG, radiologic studies, [facility] plain films. 09/12 09:52 Order name: Basic Metabolic Panel; Complete Time: 11:49 sv 09/12 09:52 Order name: CBC with Diff; Complete Time: 11:49 sv 09/12 09:52 Order name: LFT's; Complete Time: 11:49 sv 09/12 09:52 Order name: Magnesium; Complete Time: 11:49 sv 09/12 09:52 Order name: NT PRO-BNP; Complete Time: 11:49 sv / 09:52 Order name: PT-INR; Complete Time: 11:49 sv / 09:52 Order name: Troponin (emerg Dept Use Only); Complete Time: 11:49 sv 09/12 12:54 Order name: Basic Metabolic Panel EDMS 09/12 12:54 Order name: Basic Metabolic Panel EDMS 09/12 12:54 Order name: CBC with Automated Diff EDMS 09/12 12:54 Order name: CBC with Automated Diff EDMS 09/12 12:54 Order name: NT PRO-BNP EDMS 09/12 12:54 Order name: NT PRO-BNP EDMS 09/12 12:54 Order name: Troponin I EDMS 09/12 09:52 Order name: XRAY Chest (1 view); Complete Time: 12:27 sv 09/12 09:52 Order name: EKG; Complete Time: 09:53 sv 09/12 09:52 Order name: Cardiac monitoring; Complete Time: 09:54 sv 09/12 09:52 Order name: EKG - Nurse/Tech; Complete Time: 10:23 sv 09/12 12:40 Order name: CONS Physician Consult EDMS 09/12 12:40 Order name: CONS Physician Consult EDMS 09/12 12:54 Order name: Consistent Carb (ADA) [address] EDMS 09/12 12:54 Order name: EKG Electrocardiogram EDMS 09/12 12:54 Order name: EKG Electrocardiogram EDMS 09/12 12:54 Order name: Troponin I EDMS 09/12 12:54 Order name: Troponin I EDMS 09/12 12:55 Order name: Chest Single View EDMS 09/12 12:55 Order name: Chest Single View EDMS 09/12 09:52 Order name: IV Saline Lock; Complete Time: 09:54 sv 09/12 09:52 Order name: Labs collected and sent; Complete Time: 10:25 sv 09/12 09:52 Order name: O2 Per Protocol; Complete Time: 09:55 sv 09/12 09:52 Order name: O2 Sat Monitoring; Complete Time: 09:55 sv 09/12 10:35 Order name: Labs - recollect needed; Complete Time: 11:15 bd Administered Medications: 12:11 Drug: SOLU-Medrol 125 mg Route: IVP; Site: right forearm; la1 13:05 Follow up: Response: No adverse reaction sv 12:11 Drug: Xopenex 3.75 mg Route: Inhalation; la1 12:11 Drug: AtroVENT Aerosol 0.5 mg Route: Inhalation; la1 Disposition: 09/12/18 12:32 Hospitalization ordered by Anmol Salazar for Inpatient Admission. Preliminary diagnosis are Dyspnea, Chronic obstructive pulmonary disease, unspecified, Obesity, unspecified, Unspecified kidney failure - chronic, Type 2 diabetes mellitus, End stage renal disease, Anemia, unspecified, Cardiomegaly, Unspecified combined systolic (congestive) and diastolic (congestive) heart failure. - Bed requested for Telemetry/MedSurg (Inpatient). - Status is Inpatient Admission. sv - Condition is Fair. - Problem is new. - Symptoms have improved. UTI on Admission? No Signatures: Dispatcher [employer] EDMS Marie Hammonds Stephanie, RN RN sv Anderson, Corey, MD MD cha Attema, Lee RN RN la1 Corrections: (The following items were deleted from the chart) 13:02 12:32 Hospitalization Ordered by Anmol Salazar MD for Inpatient Admission. Preliminary bd diagnosis is Dyspnea; Chronic obstructive pulmonary disease, unspecified; Obesity, unspecified; Unspecified kidney failure - chronic; Type 2 diabetes mellitus; End stage renal disease; Anemia, unspecified; Cardiomegaly; Unspecified combined systolic (congestive) and diastolic (congestive) heart failure. Bed requested for Telemetry/MedSurg (Inpatient). Status is Inpatient Admission. Condition is Fair. Problem is new. Symptoms have improved. UTI on Admission? No. tono 13:55 13:02 09/12/2018 12:32 Hospitalization Ordered by Anmol Salazar MD for Inpatient sv Admission. Preliminary diagnosis is Dyspnea; Chronic obstructive pulmonary disease, unspecified; Obesity, unspecified; Unspecified kidney failure - chronic; Type 2 diabetes mellitus; End stage renal disease; Anemia, unspecified; Cardiomegaly; Unspecified combined systolic (congestive) and diastolic (congestive) heart failure. Bed requested for Telemetry/MedSurg (Inpatient). Status is Inpatient Admission. Condition is Fair. Problem is new. Symptoms have improved. UTI on Admission? No. bd
[2018-09-12] MEDS ORDERED: ONDANSETRON 4 MG/2 ML VIAL IV PRN (12:51)
[2018-09-12] MEDS ORDERED: ACETAMINOPHEN 325 MG TABLET PO PRN (12:51)
[2018-09-12] MEDS ORDERED: NA CHLORIDE 0.9% 1,000 ML IV PRN (15:14)
[2018-09-12] MEDS ORDERED: MANNITOL 25% 12.5 GM/50 ML VIAL IV PRN (15:14)
[2018-09-12] MEDS ORDERED: ALBUMIN HUMAN 25% 50 ML IV SCH (16:00)
[2018-09-12] MEDS: EPOETIN ALFA 10,000 UNIT/ML VIAL IV SCH (16:50)
[2018-09-12] MEDS: FUROSEMIDE 20 MG/ 2ML VIAL IV SCH (17:00)
--- NOTE | 2018-09-12 18:53 | CON ---
Date of Consultation: 09/12/2018 History Of Present Illness: The patient is a 78-year-old gentleman, well known to me from the dialys is with significant past medical history of end-stage renal disease on hemodialysis Thursday, Thursday , Thursday at [facility]; hypertension; hyperlipidemia; COPD; status post trach; mejia ry artery disease complicated with congestive heart failure. The patient was in his regular state of health until this Thursday and then according to him today, he started having all of sudden shortness of breath. For that reason, he reported to the hospital, found to be over volume, and hypoxemic. Fo r that reason, we have been consulted. We call dialysis nurse and plan for dialyze him today. Past Medical History: Include, 1.End-stage renal disease on hemodialysis Thursday, Thursday, Thursday. 2.Secondary hyperparathyroid. 3.Chronic obstructive pulmonary disease. 4.Hypertension. 5.Coronary artery disease complicated with congestive heart failure. 6.Diabetes complicated with neuropathy and nephropathy. Allergies: NO KNOWN DRUG ALLERGIES. Past Surgical History: Include trach and AV fistula. Review of Systems: Head and neck: No red eye. No ear pain. GI: No nausea, no vomiting. : No polyuria, no dysuria, no hematuria. Quality Tester: Not applicable. Respiratory: Has shortness of breath. Cardiovascular: Has chest tightness. Endocrine: No polydipsia. Skin: No rash. Neuro: Has neuropathy Musculoskeletal: Has low back pain. Physical Examination: Vital Signs: When I saw the patient, blood pressure 110/56, pulse of 88. Chest: Crackles bilateral. Heart: S1, S2. Systolic murmur. Abdomen: Soft, nontender. Extremities: Plus edema. Compression dressing on the left leg. Neurologic: Alert, oriented x3. No focal. The patient had a trach with a trach collar. Medications: Home medications include zinc sulfate, vitamin A, Renvela, nitroglycerin, breathing albert atment, amiodarone, allopurinol. Current medication in the hospital: The patient received breathing treatment. Laboratory Data: WBC 8.4, H and H 9.3/29.1, platelet 136. Sodium 139, potassium 4.1, bicarb 25, BUN 53, creatinine 9.7, calcium 8.6. Assessment And Plan: 1.End-stage renal disease, over volume. I am going to go ahead and arrange for dialysis today. 2.Anemia of chronic kidney disease. We will resume JAIRO. 3.Congestive heart failure with CHF exacerbation. We will dialyze the patient and we will challenge . 4.Gout. Continue allopurinol. 5.Secondary hyperparathyroid. Resume Renvela. Thank you, Dr. Bro, for allowing us to participate in the care of your patient. GERI Voice ID: [id number] Report ID: [id number]
[2018-09-12] MEDS: ALBUTEROL 2.5 MG/3 ML NEB SOL NEB PRN (20:00)
[2018-09-12] MEDS: IPRATROPIUM BROM 0.5MG/2.5ML NEB PRN (20:00)
[2018-09-12] MEDS: SEVELAMER CARBONATE 800 MG TABLET PO SCH (20:14)
[2018-09-12] MEDS: GABAPENTIN 100 MG CAP PO SCH (20:15)
[2018-09-12] MEDS: FAMOTIDINE 20 MG/2 ML VIAL IV SCH (20:15)
[2018-09-12] MEDS: HEPARIN 5000 UNIT/ML 1 ML VIAL SQ SCH (20:15)
[2018-09-12] MEDS: METHYLPREDNISOLONE 40 MG INJ IV SCH (20:15)
[2018-09-12] MEDS ORDERED: [UNRECOGNIZED DRUG - REMARK] IH SCH (21:00)
[2018-09-12] MEDS ORDERED: HOME MED 1 EA UNK (Omeprazole [Omeprazole] 20 MG) PO SCH (21:00)
[2018-09-12] MEDS ORDERED: AMIODARONE HCL 200 MG TAB PO SCH (21:00)
[2018-09-13] MEDS: METHYLPREDNISOLONE 40 MG INJ IV SCH ×3 (01:18→16:16)
[2018-09-13] MEDS: ALBUTEROL 2.5 MG/3 ML NEB SOL NEB PRN ×3 (01:35→16:05)
[2018-09-13] MEDS: IPRATROPIUM BROM 0.5MG/2.5ML NEB PRN ×3 (01:35→16:05)
--- NOTE | 2018-09-13 02:24 | HP ---
Date of Admission: 09/12/2018 Chief Complaint: Shortness of breath. History Of Present Illness: This is a 78-year-old pleasant male patient with multiple comorbidities including end-stage renal disease and COPD, has required some frequent hospital admissions with COPD exacerbation, came into emergency room with complaints of shortness of breath that started this morni ng when he woke up. He is coughing up some mucus, but not sure of color. Denies any fever, chills, nausea, vomiting. No hemoptysis. He came into emergency room with this complaints. After he was ev aluated, he was admitted to the hospital. I saw him in the emergency room. Allergies: SHELLFISH, CIPRO, IODIDE, AND MEPERIDINE. Medications: List reviewed. Review of Systems: Respiratory: As mentioned above. All other systems reviewed and negative. Social History: Negative for smoking and alcohol use. Family History: Significant for asthma, hypertension, breast cancer. Past Surgical History: AICD placement in June 2014, tracheostomy many years ago. Past Medical History: Significant for end-stage renal disease, on hemodialysis; COPD; chronic systol ic congestive heart failure with ejection fraction around 20% to 25%; anemia due to chronic kidney di sease; sleep apnea; coronary artery disease; diabetes mellitus; allergic rhinitis; osteoarthritis at multiple sites; diverticulosis; cervical spondylosis with radiculopathy; prostate cancer; gastroesoph ageal reflux disease. Physical Examination: Vital Signs: Height 5 feet 10 inches, weight 100.20 kg. Temperature 97 degrees Fahrenheit, pulse 70 , respiratory rate 18, blood pressure 120/70. General: The patient appears weaker than normal. Awake, alert, oriented, answering questions approp riately. HEENT: Head atraumatic, normocephalic. Conjunctivae nonerythematous. Sclerae white. Mouth, no thr ush or edema noted. Ears/Nose, no mass, lesion, discharge noted. Neck: Supple. No JVD, lymph nodes, bruit, thyromegaly noted. Lungs: Bilateral good equal air entry. Presence of scattered wheezing noted. Not using accessory m uscles of respiration. Heart: Normal heart sounds, no murmur or gallop. Abdomen: Soft, bowel sounds normal. No guarding, rigidity, tenderness, mass, hepatosplenomegaly, dis tention, or bruit noted. Extremities: Bilateral trace leg edema. No calf tenderness. Skin: No rash, ulcer, cellulitis. Lymphatics: No lymph node enlargement in neck, supraclavicular, infraclavicular region. Neuro: No focal neurological deficit. Chest: Unremarkable. External Genitalia: Deferred. Rectal: Deferred. Laboratory Data: Chest x-ray, increased lung markings, no consolidation. White count 8.4, hemoglobi n 9.3, platelets 136. Sodium 139, potassium 4.1, chloride 101, bicarb 25, BUN 54, creatinine 9.17, g lucose 110. Liver function tests unremarkable. ProBNP 69,014. Impression: 1.Acute exacerbation of chronic obstructive pulmonary disease. 2.Chronic systolic congestive heart failure. 3.End-stage renal disease, on hemodialysis. 4.Anemia due to chronic kidney disease. 5.Coronary artery disease. 6.Sleep apnea. 7.Diabetes mellitus, type 2. 8.Allergic rhinitis. 9.Osteoarthritis, multiple sites. 10.Gastroesophageal reflux disease. 11.Diverticulosis. 12.Cervical spondylosis with radiculopathy. 13.Prostate cancer. Plan: Admit the patient to hospital for further evaluation and management of this problem. The lui ent is appropriate for inpatient and is expected to spend 2 midnights in hospital. We will go ahead and give him an oxygen nebulizer treatment and IV steroids. Home medications will be continued. We will consult job development specialist for dialysis support and his dialysis is due tomorrow. DVT prophylaxis isis l be given using heparin and details and plan of treatment discussed with the patient. ODESSA/MODL Voice ID: [id number]
[2018-09-13 05:37] LABS: Absolute Lymphocytes (CBC) 0.2 K/uL (0.7-4.9); Absolute Monocytes 0.1 K/uL (0.1-1.3); Basophils % 0.2 % (0-1.3); Eosinophils % 0.1 % (0-4.4); Hematocrit 33.3 % (39.6-49.0); Lymphocytes % 2.5 % (15.3-44.8); MPV 10.8 fL (7.6-11.3); Monocytes % 1.3 % (3.3-12.3); RBC Red Blood Cell Count 3.41 M/uL (4.33-5.43)
[2018-09-13 05:52] VITALS: BMI 39.7
[2018-09-13 05:56] LABS: Potassium 5.3 mmol/L (3.5-5.1)
[2018-09-13] MEDS: NITROGLYCERIN 0.4 MG/TAB SL PRN ×2 (06:02→06:10)
--- NOTE | 2018-09-13 06:30 | EKG ---
Test Date: 2018-09-12 Test Time: 10:21:49 Torch Operator: SAMSON MEASUREMENT RESULTS: Intervals: Rate: 82 MA: 168 QRSD: 154 QT: 456 QTc: 532 [place]: P: 29 MA: 168 QRS: -51 T: 244 INTERPRETIVE STATEMENTS: Atrial-sensed ventricular-paced rhythm tracking sinus rhythm Compared to ECG 07/06/2018 23:25:27 no significant change from previous ECG Electronically Signed On 09-13-18 06:30:30 CDT by Thomas Middleton
[2018-09-13] MEDS ORDERED: D50W 25 GM/50 ML SYRINGE IV PRN (07:08)
[2018-09-13] MEDS ORDERED: GLUCAGON 1 MG/VIAL IM PRN (07:08)
--- NOTE | 2018-09-13 07:57 | EKG ---
Test Date: 2018-09-13 Test Time: 06:18:55 Quality Assurance Analyst: T MEASUREMENT RESULTS: Intervals: Rate: 72 AR: 170 QRSD: 152 QT: 462 QTc: 505 [place]: P: 33 AR: 170 QRS: -68 T: 224 INTERPRETIVE STATEMENTS: Atrial-sensed ventricular-paced rhythm occasional PVC s Compared to ECG 09/12/2018 10:21:49 PVC s are now present Electronically Signed On 09-13-18 07:56:39 CDT by Thomas Middleton
[2018-09-13] MEDS: INSULIN -REGULAR HUMAN 50 UNIT/0.5 ML ML SQ SCH ×4 (08:33→21:00)
[2018-09-13] MEDS: AMIODARONE HCL 200 MG TAB PO SCH (08:34)
[2018-09-13] MEDS: CLOPIDOGREL 75 MG TABLET PO SCH (08:34)
[2018-09-13] MEDS: ALLOPURINOL 100 MG TAB PO SCH (08:34)
[2018-09-13] MEDS: ASPIRIN 81 MG CHEWABLE TABLET PO SCH (08:34)
[2018-09-13] MEDS: GABAPENTIN 100 MG CAP PO SCH ×3 (08:34→21:33)
[2018-09-13] MEDS: FUROSEMIDE 20 MG/ 2ML VIAL IV SCH ×2 (08:35→16:16)
[2018-09-13] MEDS: SEVELAMER CARBONATE 800 MG TABLET PO SCH ×3 (08:35→16:16)
[2018-09-13] MEDS: HEPARIN 5000 UNIT/ML 1 ML VIAL SQ SCH ×2 (08:35→21:33)
[2018-09-13] MEDS: PANTOPRAZOLE 40MG TABLET PO SCH ×2 (08:35→16:16)
[2018-09-13] MEDS: FAMOTIDINE 20 MG/2 ML VIAL IV SCH ×2 (08:40→21:33)
--- NOTE | 2018-09-13 08:57 | RAD REPORT ---
EXAM DESCRIPTION: RAD - Chest Single View - 09/13/2018 6:31 am CLINICAL HISTORY: Chest Pain Chest pain. COMPARISON: Chest Single View dated 09/12/2018; Chest Single View dated 07/06/2018; Chest Single View d ated 06/20/2018; Chest Single View dated 06/18/2018 FINDINGS: Portable technique limits examination quality. The lungs are grossly clear. The heart is moderately enlarged. Right-sided multi lead pacer/defibrill ator device present.Tracheostomy tube tip is above jamia.
[2018-09-13] MEDS ORDERED: HOME MED 1 EA UNK (Amiodarone Hcl [Amiodarone Hcl] 100 MG) PO SCH (09:00)
[2018-09-13] MEDS: AMOX/K CLAV 500 MG TAB PO SCH (09:12)
[2018-09-13] MEDS: EPOETIN ALFA 10,000 UNIT/ML VIAL IV SCH (09:56)
[2018-09-14] MEDS: METHYLPREDNISOLONE 40 MG INJ IV SCH ×2 (00:25→08:32)
--- NOTE | 2018-09-14 01:10 | PN ---
Date of Progress Note: 09/13/2018 Subjective: The patient was seen this morning for followup. No new complaints or problems reported by him. He was sleeping, arousable, not in distress. Shortness of breath is better overnight as he reported this morning. Objective: Vital Signs: Reviewed. HEENT: Unremarkable. Lungs: Bilateral good equal air entry. Presence of scattered wheezing. Overall better today than y esterday. Not using accessory muscles of respiration. Heart sounds: Normal. Abdomen: Soft. Bowel sounds normal. No guarding, rigidity, tenderness, or distention. Extremities: Trace leg edema. Laboratory Data: White count 9.3, hemoglobin 10.4, platelets 140. Sodium 134, potassium 5.3, chlori de 98, bicarb 20, BUN 72, creatinine 10.4, glucose 218. ProBNP 81585. Impression: 1.Acute exacerbation of chronic obstructive pulmonary disease. 2.Chronic systolic congestive heart failure. 3.Hyperkalemia. 4.End-stage renal disease, on hemodialysis. 5.Type 2 diabetes mellitus. Plan: We will continue current IV steroid. Will start the patient on fingerstick blood sugar with s liding scale insulin for diabetes control. At home, he does not take any medications for diabetes, b ut because of the IV steroid, his sugar has gone up and so we will try to control it with insulin janes braswell in hospital. The patient will have dialysis today with Nephrology. I will see him tomorrow for keeley islas, depending on his condition tomorrow we will decide if we can discharge him tomorrow or not. ODESSA/MODL Voice ID: [id number] Report ID: [id number]
--- NOTE | 2018-09-14 03:58 | PN ---
Date of Progress Note: 09/13/2018 Chief Complaint: Congestive heart failure with diastolic and systolic dysfunction, and COPD exacerba tion, fluid overload. History Of Present Illness: The patient is undergoing dialysis today to obtain metabolic clearance. The patient has multiple medical problems including history of obstructive pulmonary disease and he was started on inhalers. Ultrafiltration was done to control CHF exacerbation. Review of Systems: Denies fever, chills. Denies nausea, vomiting. Shortness of breath is improving gradually. Physical Examination: Lungs: Few crackles at bases. Heart: S1 and S2. Abdomen: Soft. Benign. Extremities: Edema present in both legs. Laboratory Data: Blood work: Sodium 139, potassium 4.1, bicarbonate 25, BUN 53, creatinine 9.7, ever cium 8.6. Impression And Plan: 1.End-stage renal disease, volume overload. Continue low-sodium diet, p.o. fluid restriction. Ultr afiltration was done with dialysis. 2.Anemia of chronic kidney disease. Hemoglobin level is 9.3. Continue JAIRO. 3.Congestive heart failure with exacerbation, dialysis may be done daily for volume control. 4.Gout. Continue allopurinol. 5.Secondary hyperparathyroidism. Continue Renvela for phosphatemia control. EB/MODL Voice ID: [id number] Report ID: [id number]
[2018-09-14] MEDS: INSULIN -REGULAR HUMAN 50 UNIT/0.5 ML ML SQ SCH (08:29)
[2018-09-14] MEDS: AMOX/K CLAV 500 MG TAB PO SCH (08:30)
[2018-09-14] MEDS: PANTOPRAZOLE 40MG TABLET PO SCH (08:30)
[2018-09-14] MEDS: ALLOPURINOL 100 MG TAB PO SCH (08:30)
[2018-09-14] MEDS: GABAPENTIN 100 MG CAP PO SCH (08:30)
[2018-09-14] MEDS: AMIODARONE HCL 200 MG TAB PO SCH (08:30)
[2018-09-14] MEDS: SEVELAMER CARBONATE 800 MG TABLET PO SCH (08:31)
[2018-09-14] MEDS: CLOPIDOGREL 75 MG TABLET PO SCH (08:31)
[2018-09-14] MEDS: ASPIRIN 81 MG CHEWABLE TABLET PO SCH (08:31)
[2018-09-14] MEDS: FUROSEMIDE 20 MG/ 2ML VIAL IV SCH (08:31)
[2018-09-14] MEDS: HEPARIN 5000 UNIT/ML 1 ML VIAL SQ SCH (08:33)
[2018-09-14] MEDS: FAMOTIDINE 20 MG/2 ML VIAL IV SCH (08:33)
[2018-09-14 08:39] VITALS: BP 103/69; TEMP 96.7
[2018-09-14] MEDS: ALBUTEROL 2.5 MG/3 ML NEB SOL NEB PRN (10:11)
[2018-09-14] MEDS: IPRATROPIUM BROM 0.5MG/2.5ML NEB PRN (10:11)
[2018-09-14 10:34] VITALS: O2SAT 100
--- NOTE | 2018-09-15 03:13 | DS ---
Date of Discharge: 09/14/2018 Disposition: Discharged to go home. Physical Examination: HEENT: Unremarkable. Lungs: Clear to auscultation. Heart: Sounds normal. Abdomen: Soft, bowel sounds normal. No guarding, rigidity, tenderness, distention. Extremities: Trace leg edema. Laboratory Data: Labs done during this hospitalization upon admission, white count 8.4, hemoglobin 9 .3, platelets 136. Yesterday, white count 9.3, hemoglobin 10.4, platelets 148. Yesterday, sodium 13 4, potassium 5.3, chloride 98, bicarb 20, BUN 72, creatinine 10.40, glucose 218. Discharge Medications And Instructions: 1.Continue prior home medication. 2.Prednisone 10 mg, the patient to take 2 tablets daily for 4 days, then 1 tablet daily for 4 days, then 1/2 tablet daily for 4 days, then stop. 3.Follow up at my office in 2 weeks. Hospital Course: A 78-year-old male patient admitted to the hospital with shortness of breath. Deandra hernandez see dictated H and P for more information. After the patient was evaluated in the ER, he was admi tted to the hospital with acute exacerbation of COPD problem. Nephrology consultation was obtained f rom his oracle adf consultant for dialysis support, which was provided during this hospitalization. Home medi cations were continued. He was started on IV steroid and his condition overall improved over this ho spitalization. He feels like his breathing is back to his usual self and today he was discharged to go home in stable condition with above-mentioned medication and instruction. Chest x-ray did not matilde w any evidence of pneumonia. Final Diagnoses: 1.Acute exacerbation of COPD. 2.Congestive heart failure, chronic, systolic. 3.End-stage renal disease, on hemodialysis. 4.Anemia due to chronic kidney disease. 5.Coronary artery disease. 6.Diabetes mellitus, type 2, uncontrolled, secondary to steroid. 7.Sleep apnea. 8.Allergic rhinitis. 9.Osteoarthritis, multiple sites. 10.Gastroesophageal reflux disease. 11.Diverticulosis. 12.Cervical spondylosis with radiculopathy. 13.Prostate cancer. ODESSA/MODL Voice ID: [id number] Report ID: [id number]
[2018-09-15 18:19] LABS: HBsAG Nonreactive (Nonreactive)
== END 2018-09-14 10:33 | disposition home or self-care (01) | DRG 190 ==
LOC: ER 09:43 → ERHOLD 12:36 → 4TH 13:41
PROVIDERS: ADMIT Internal Medicine; ATTEND Internal Medicine
PROC: 5A1D70Z Performance of Urinary Filtration, Intermittent, Less than 6 Hours Per Day (ICD-10-PCS; principal; 2018-09-12)
DX: J44.1 Chronic obstructive pulmonary disease with (acute) exacerbation (principal); N18.6 End stage renal disease; I50.23 Acute on chronic systolic (congestive) heart failure; I13.2 Hypertensive heart and chronic kidney disease with heart failure and with stage 5 chronic kidney disease, or end stage renal disease; E11.22 Type 2 diabetes mellitus with diabetic chronic kidney disease; Z99.2 Dependence on renal dialysis; D63.1 Anemia in chronic kidney disease; I25.10 Atherosclerotic heart disease of native coronary artery without angina pectoris; G47.30 Sleep apnea, unspecified; K57.90 Diverticulosis of intestine, part unspecified, without perforation or abscess without bleeding; C61 Malignant neoplasm of prostate; E11.21 Type 2 diabetes mellitus with diabetic nephropathy; E11.40 Type 2 diabetes mellitus with diabetic neuropathy, unspecified; E87.5 Hyperkalemia; K21.9 Gastro-esophageal reflux disease without esophagitis; M47.22 Other spondylosis with radiculopathy, cervical region; M10.9 Gout, unspecified; M15.9 Polyosteoarthritis, unspecified; J30.9 Allergic rhinitis, unspecified; Z95.810 Presence of automatic (implantable) cardiac defibrillator; Z88.1 Allergy status to other antibiotic agents; Z91.013 Allergy to seafood
CPT/HCPCS: 15271; 29581; 36415; 71045; 80048; 80076; 82962; 83735; 83880; 84484; 85025; 85610; 86317; 86704; 86706; 87340; 90935; 93005; 94640; 96374; 99285; J1644; J1940; J2150; J2920; J2930; Q4081; Q4121

== ENCOUNTER 2018-10-21 03:29 | Observation (INO) | payer OTHER, MEDICARE ==
--- OUTSIDE RECORDS SUMMARY | 2018-10-21 03:31 | XMS REPORT ---
:1940 [facility] Address [address] [place] [address] Dr. Vargas [address] [place] [id number] Care Team Providers Name Role Phone Unavailable Unavailable Unavailable Problems This patient has no known problems. Allergies, Adverse Reactions, Alerts This patient has no known allergies or adverse reactions. Medications This patient has no known medications.
--- OUTSIDE RECORDS SUMMARY | 2018-10-21 03:31 | XMS REPORT | Clinical Summary ---
:1940 Author Organization [facility] Address [address] [place] [address] Care Team Providers Name Role Phone Anmol [...] Overview: Added automatically from request for surgery [id number] Coronary artery disease involving choctaw coronary artery of choctaw heart 07/22 without angina pectoris Overview: Added automatically from request for surgery [id number] Chest pain 07/22/2017 Overview: Added automatically from request for surgery [id number] Angina pectoris 07/21/2017 Coronary artery disease of choctaw artery of choctaw heart with stable 2017 angina pectoris Automatic implantable cardioverter-defibrillator in situ 03/10/2017 PAD (peripheral artery disease) 08/05/2016 Cardiomyopathy 08/05/2016 Systolic congestive heart failure 08/05/2016 Encounters Date Type Specialty Care Team Description 09/09/2018 Orders Only Cardiology Justin Ojeda MA 04/27/2018 Office Visit Cardiology Ad Quintero MD Chest pain, unspecified type (Primary Dx); Cardiomyopathy, unspecified type (HCC) after 10/20/2017 Family History Relation Name Status Comments Father [...] Taken Blood Pressure 108/53 04/27/2018 11:28 AM NUTRITION TECHNICIAN Pulse 94 04/27/2018 11:28 AM NUTRITION TECHNICIAN Temperature - - Respiratory Rate - - Oxygen Saturation - - Inhaled Oxygen Concentration - - Weight 138 kg (305 lb) 04/27/2018 11:28 AM NUTRITION TECHNICIAN Height 180.3 cm (5' 11") 04/27/2018 11:28 AM NUTRITION TECHNICIAN Body Mass Index 42.54 04/27/2018 11:28 AM NUTRITION TECHNICIAN Plan of Treatment Date Type Specialty Care Team Description 10/26/2018 Office Visit Cardiology Ad Quintero MD [address] [address] Health Maintenance Due Date Last Done Comments SHINGLES VACCINES (#1) 1989 65+ PNEUMOCOCCAL VACCINE (1 of 2 - PCV13) 01/17/2004 INFLUENZA VACCINE 11/11/2018 Implants Implanted Type Area Recruitment Specialist Device Shelf Model / Identifier Expiration Serial / Date Lot Device Vasclr Clsr Vasoactive Intstnl Peptd 8fr Angio-Seal - [id number] Cardiovascular N/A: 06/10/2017 [id number] / Implanted: 08/07/2016 (Quantity not on file) Implants N/A / [id number] Stent Bili Protege Everflex Slf-Xpndbl 120cm [id number] - [id number] Coronary Stents N/A: [employer] 05/03/2017 [id number] 100 120 / Implanted: 08/07/2016 (Quantity not on file) N/A / [id number] Procedures Procedure Name Priority Date/Time Associated Comments Diagnosis ECHOCARDIOGRAM 2D Routine 05/03/2018 5:01 Cardiomyopathy, Results for this COMPLETE W MMODE PM NUTRITION TECHNICIAN unspecified type procedure are in SPECTRAL COLOR DOPPLER (HCC) the results (22902) Chest pain, section. unspecified type ECG 12-LEAD Routine 04/27/2018 11:33 Cardiomyopathy, Results for this AM NUTRITION TECHNICIAN unspecified type procedure are in (HCC) the results section. after 10/20/2017 Results Echocardiogram complete w contrast and 3D if needed (05/03/2018 5:01 PM NUTRITION TECHNICIAN) Specimen Narrative Performed At [facility] Echocardiography Report Pat.Name:LANI DILLON [place] Pat.ID:[id number] St.Date: 05/03/2018 Refer.MD:AD QUINTERO MD Exam Time: 3:40:00 PMStudy Type:Routine Echo Height:71inWeight: 305lb BSA: 2.53 m2 DOBAge:1940,78Y Sex: MALEBP:108/53 HR:70 bpm Sonogrphr: EZRA Costello FASE Pat. Stat.:OutpatientRoom:[place] Study Status:Final Echo Event ID:[id number] Order ID:[id number] Reason for Study:Cardiomyopathy with no status change [...] RAPof 5 mmHg. MEASUREMENTS: 2D Parasternal Long Adair LVOT 2.2 cmLA Ds4.9 cm LVIDd6 cmIndex2.4 cm/m Ao An1.9 cm LVIDs5.1 cmAo Rtd 3.4 cm Index1.4 cm/m LV%fs 13.9 % LV Uicz136.8 g(122-174) IVSd 1.3 cmLVM Fharv776.4 g/m2 LVPWd1.3 cmRWT0.5 LA Sng Plane LA [...] Radiology Results In - 05/04/2018 2:44 PM NUTRITION TECHNICIAN [facility] Echocardiography Report Pat.Name: DILLON GARIBAY Pat.ID: [id number] St.Date: 05/03/2018 Refer.MD: AD QUINTERO MD Exam Time: 3:40:00 PM Study Type:Routine Echo Height: 71in Weight: 305lb BSA: 2.53 m2 Age: 1001/16/1940,78Y Sex: MALE BP: 108/53 HR: 70 bpm Sonogrphr: EZRA Costello FASE Pat. Stat.:Outpatient Room: [place] Study Status:Final Echo Event ID:[id number] Order ID: [id number] Reason for Study:Cardiomyopathy with no status change [...] of 5 mmHg. MEASUREMENTS: 2D Parasternal Long Adair LVOT 2.2 cm LA Ds 4.9 cm [...] PM Ayo Polk M.D. Performing Organization Address [facility] Phone Number [facility] [address] [place] [address] ECG 12 lead (04/27/2018 11:33 AM NUTRITION TECHNICIAN) Ventricular rate 87 [facility] Atrial rate 87 [facility] TN interval 164 [facility] QRSD interval 154 [facility] QT interval 444 [facility] QTC interval 534 [facility] P axis 1 60 [facility] QRS axis 1 -16 [facility] T wave axis -73 [facility] EKG impression Atrial-sensed [facility] MUSE ventricular-paced rhythm-Abnormal ECG-In automated comparison with ECG of 21-JUL-2017 09:06,-Electronic ventricular pacemaker has replaced Sinus rhythm- Specimen Narrative Performed At Performing Organization Address [facility] Phone Number [facility] [address] [place] [address] after 10/20/2017 Insurance Payer Benefit Plan / Subscriber ID Effective Dates Phone Address Type Group MEDICARE MEDICARE PART A xxxxxxxxxx 2004-[place], [place] Medicare AND B t AARP AARP SUPPLEMENT xxxxxxxxxxx 2008-Present Commercial (Work) [id number] Advance Directives Patient has advance care planning documents on file. For more information, please contact:Percy Chance[address] [place] [address]
[2018-10-21] MEDS ORDERED: METHYLPREDNISOLONE 125 MG INJ ONE (04:07)
[2018-10-21] MEDS ORDERED: LEVALBUTEROL 1.25 MG/3 ML NEB ONE (04:07)
[2018-10-21] MEDS ORDERED: ALBUTEROL 2.5 MG/3 ML NEB SOL ONE (04:07)
[2018-10-21] MEDS ORDERED: IPRATROPIUM BROM 0.5MG/2.5ML ONE (04:07)
[2018-10-21 04:34] LABS: Absolute Lymphocytes (CBC) 1.1 K/uL (0.7-4.9); Basophils % 1.5 % (0-1.3); Eosinophils % 2.6 % (0-4.4); Hematocrit 34.9 % (39.6-49.0); Lymphocytes % 12.4 % (15.3-44.8); MPV 10.6 fL (7.6-11.3); Monocytes % 10.4 % (3.3-12.3); RBC Red Blood Cell Count 3.57 M/uL (4.33-5.43)
[2018-10-21 04:36] LABS: Protime INR 1.07
[2018-10-21 05:05] LABS: Albumin 3.7 g/dL (3.4-5.0); Bilirubin Direct 0.1 mg/dL (0-0.2); Bilirubin Total 0.4 mg/dL (0.2-1.0); CKMB Creatine Kinase MB 1.9 ng/mL (0.3-3.6); Magnesium 2.3 mg/dL (1.8-2.4); Potassium 3.7 mmol/L (3.5-5.1); Protein, Total 7.6 g/dL (6.4-8.2); Troponin (Emerg Dept Use Only) 0.08 ng/mL (0.0-0.045)
--- NOTE | 2018-10-21 05:26 | ER ---
Nurse's Notes [facility] Name: Sergio Perez Age: 78 yrs Sex: Male : 1940 Arrival Date: 10/21/2018 Time: 03:35 Bed 5 Private MD: Diagnosis: Chronic obstructive pulmonary disease with (acute) exacerbation Presentation: 10/21 03:32 Presenting complaint: EMS states: Pt complaining of increase SOB that started yesterday ea and worsened throughout the night. EMS gave Albuterol and Atrovent treatment. Transition of care: patient was not received from another setting of care. Onset of symptoms was October 21, 2018. Risk Assessment: Do you want to hurt yourself or someone else? Patient reports no desire to harm self or others. Initial Sepsis Screen: Does the patient meet any 2 criteria? RR > 20 per min. HR > 90 bpm. Yes Does the patient have a suspected source of infection? No. Patient's initial sepsis screen is negative. Care prior to arrival: Medication(s) given: Albuterol Neb x 1, Atrovent Neb x 1. 03:32 Method Of Arrival: EMS: [facility] ea 03:32 Acuity: KARLENE 2 ea Triage Assessment: 03:32 General: Appears uncomfortable. General: Behavior is cooperative, appropriate for age. ea Pain: Denies pain. Neuro: Level of Consciousness is awake, alert, obeys commands, Oriented to person, place, time, situation. Respiratory: Reports shortness of breath at rest Onset: The symptoms/episode began/occurred yesterday. Historical: - Allergies: 03:52 Cipro; ea 03:52 Iodine; ea 03:52 SHELLFISH; ea 03:52 Demerol; ea - Home Meds: 03:52 albuterol sulfate 2.5 mg /3 mL (0.083 %) Inhl nebu 1 vial daily [Active]; allopurinol ea 200 mg Oral 2 tabs daily [Active]; amiodarone 200 mg Oral tab 0.5 tab daily [Active]; aspirin 81 mg Oral TbEC 1 tab twice daily [Active]; clopidogrel 75 mg Oral tab 1 tab once daily [Active]; Ferrous Sulfate 65 mg Oral 1x daily [Active]; fluticasone 50 mcg/actuation nasal spsn 1 spray 2 times per day [Active]; zinc sulfate 220 (50) mg Oral cap daily [Active]; vitamin d1 tablet 2000 IU daily [Active]; Tums Oral 2 tabs per meal [Active]; vitamin A 8,000 unit Oral cap 1 cap once daily [Active]; omeprazole 20 mg Oral TbEC twice a day [Active]; nitroglycerin 0.4 mg Oral as needed [Active]; ipratropium bromide 0.02 % inhalation soln 2.5 mL 4 times per day [Active]; indura 800 mg 2 tabs before each meal TID [Active]; gabapentin Oral 1 tab 3 times per day [Active]; - PMHx: 03:52 Pacemaker; with defib; Hypertension; Gout; GERD; ESRD; Dialysis; M-W-F; Diabetes - ea NIDDM; CHF; COPD; - Immunization history:: Adult Immunizations unknown. - Social history:: Smoking status: Patient/guardian denies using tobacco, Patient/guardian denies using alcohol, street drugs, The patient lives with family. - Ebola Screening: : No symptoms or risks identified at this time. - Family history:: not pertinent. - Hospitalizations: : No recent hospitalization is reported. Screenin:35 Abuse screen: Denies threats or abuse. Nutritional screening: No deficits noted. bb Tuberculosis screening: No symptoms or risk factors identified. Fall Risk Secondary diagnosis (15 points) impaired mobility, IV access (20 points). Ambulatory Aid- None/Bed Rest/Nurse Assist (0 pts). Mental Status- Overestimates/Forgets Limitations (15 pts.). Total Dodson Fall Scale indicates High Risk Score (45 or more points). Fall prevention measures have been instituted. As available patient and family educated on Fall Prevention Program and Strategies. Assessment: 03:35 General: Appears distressed, uncomfortable, obese, Behavior is calm, cooperative, bb Reports difficulty breathing since yesterday but it got worse tonight. Pain: Denies pain. Neuro: Level of Consciousness is awake, alert, obeys commands, Oriented to person, place, time, situation. Cardiovascular: Heart tones S1 S2 present Capillary refill < 3 seconds Patient's skin is warm and dry. Pulses are palpable in right radial artery and left radial artery Edema is 1+ to right ankle is 3+ to left ankle Rhythm is sinus tachycardia. Respiratory: Airway via trache Respiratory effort is labored, Respiratory pattern is tachypnea Breath sounds with rhonchi bilaterally. the patient has mild shortness of breath. GI: No signs and/or symptoms were reported involving the gastrointestinal system. Abdomen is obese. Derm: Skin is dry, Skin is normal, Skin temperature is warm. Musculoskeletal: Circulation, motion, and sensation intact. 04:23 Reassessment: Patient and/or family updated on plan of care and expected duration. Pain bb level reassessed. pt receiving neb tx appears more comfortable resp less labored, awaiting diagnostic results. 05:36 Reassessment: Patient and/or family updated on plan of care and expected duration. Pain bb level reassessed. pt is A\T\O x 4, resp less labored, bilateral breath sounds with rhonchi, pt states he needs suctioning, RT notified and at bedside. 06:40 Reassessment: Pt is A\T\O x 4, resp unlabored, IV site intact, no erythema or edema bb noted, pt transported with belongings via wheelchair to room 428 bedside report given to Garret GIBBONS. Vital Signs: 03:32 BP 112 / 65; Pulse 101; Resp 38; Temp 99.4; Pulse Ox 96% on R/A; Weight 129.9 kg; ea Height 5 ft. 11 in. (180.34 cm); Pain 0/10; 04:24 BP 96 / 54; Pulse 84; Resp 20 S; Pulse Ox 99% on 7% Nebulizer Mask; bb 05:38 BP 92 / 48; Pulse 81; Resp 18; Pulse Ox 100% on trache mask; bb 05:57 BP 100 / 56; Pulse 81; Resp 17; Pulse Ox 100% on Nebulizer Mask; bb 03:32 Body Mass Index 39.94 (129.90 kg, 180.34 cm) ea ED Course: 03:35 Patient arrived in ED. bb 03:35 Patient has correct armband on for positive identification. Placed in gown. Call light bb in reach. steel loader on. Pulse ox on. NIBP on. 03:35 Arm band placed on right wrist. Patient placed in an exam room, on a stretcher, on ea oxygen, on unified communications engineer, on pulse oximetry. 03:36 Colleen Salvador MD is Attending Physician. ma2 03:45 Triage completed. ea 03:52 XRAY CXR (1 view) In Process Unspecified. EDMS 03:53 X-ray completed. Portable x-ray completed in exam room. Patient tolerated procedure mh1 well. 03:55 Missed attempt(s): 20 gauge in right forearm. Bleeding controlled, band aid applied, bb catheter tip intact. 04:00 Initial lab(s) drawn, by ED staff, sent to lab. First set of blood cultures drawn by ED bb staff. Inserted saline lock: 22 gauge in right hand, using aseptic technique. ,using aseptic technique. by Maria Luz Benjamin RN Blood collected. 04:15 Second set of blood cultures drawn by ED staff. bb 04:46 Josselin Rosa, SHAI is Primary Nurse. ea 05:05 Notified ED physician of a critical lab result(s). Creatinine of 6.42 Dr Smith bb notified. 05:26 Anmol Salazar MD is Hospitalizing Provider. ma2 05:39 No provider procedures requiring assistance completed. Patient admitted, IV remains in bb place. Administered Medications: 04:00 Drug: Xopenex 1.25 mg Route: Inhalation; bb 04:00 Drug: AtroVENT Aerosol 0.5 mg Route: Inhalation; bb 04:20 Drug: SOLU-Medrol 125 mg Route: IVP; Site: right hand; bb 05:49 Follow up: Response: No adverse reaction bb 05:41 Drug: Rocephin 1 grams Route: IV; Rate: calculated rate; Site: right hand; ea 05:46 Follow up: IV Status: Completed infusion; IV Intake: 10ml bb 05:42 Drug: Doxycycline 100 mg Route: PO; ea 05:50 Follow up: Response: No adverse reaction bb 05:50 Drug: Albuterol 1.25 mg Route: Inhalation; bb 05:50 Drug: AtroVENT Aerosol 0.5 mg Route: Inhalation; bb Intake: 05:46 IV: 10ml; Total: 10ml. bb Outcome: 05:26 Decision to Hospitalize by Provider. ma2 05:39 Instructed on the need for admit. bb 05:58 Condition: stable bb 06:42 Admitted to Tele accompanied by nurse, via wheelchair, room 428, with oxygen, with bb chart, Other bedside report given to Garret GIBBONS 06:43 Patient left the ED. bb Signatures: Dispatcher [employer] EDFL Almaz Clark 1 Bri Keane, RN RN bb Josselin Rosa RN RN ea Madeleine, MD TRENTON Macias ma2
--- NOTE | 2018-10-21 05:26 | EDPHYS ---
Physician Documentation [facility] Name: Sergio Perez Age: 78 yrs Sex: Male : 1940 Arrival Date: 10/21/2018 Time: 03:35 Bed 5 Private MD: ED Physician Colleen Salvador HPI: 10/21 05:24 This 78 yrs old Black Male presents to ER via EMS with complaints of Breathing ma2 Difficulty. 05:24 The patient has shortness of breath at rest. Onset: The symptoms/episode began/occurred ma2 gradually, 1 day(s) ago. Duration: The symptoms are chronic. Associated signs and symptoms: Pertinent positives: non-productive cough, Pertinent negatives: productive cough, dizziness, fever. Severity of symptoms: At their worst the symptoms were moderate in the emergency department the symptoms are unchanged. The patient has experienced similar episodes in the past. Historical: - Allergies: 03:52 Cipro; ea 03:52 Iodine; ea 03:52 SHELLFISH; ea 03:52 Demerol; ea - Home Meds: 03:52 albuterol sulfate 2.5 mg /3 mL (0.083 %) Inhl nebu 1 vial daily [Active]; allopurinol ea 200 mg Oral 2 tabs daily [Active]; amiodarone 200 mg Oral tab 0.5 tab daily [Active]; aspirin 81 mg Oral TbEC 1 tab twice daily [Active]; clopidogrel 75 mg Oral tab 1 tab once daily [Active]; Ferrous Sulfate 65 mg Oral 1x daily [Active]; fluticasone 50 mcg/actuation nasal spsn 1 spray 2 times per day [Active]; zinc sulfate 220 (50) mg Oral cap daily [Active]; vitamin d1 tablet 2000 IU daily [Active]; Tums Oral 2 tabs per meal [Active]; vitamin A 8,000 unit Oral cap 1 cap once daily [Active]; omeprazole 20 mg Oral TbEC twice a day [Active]; nitroglycerin 0.4 mg Oral as needed [Active]; ipratropium bromide 0.02 % inhalation soln 2.5 mL 4 times per day [Active]; indura 800 mg 2 tabs before each meal TID [Active]; gabapentin Oral 1 tab 3 times per day [Active]; - PMHx: 03:52 Pacemaker; with defib; Hypertension; Gout; GERD; ESRD; Dialysis; M-W-F; Diabetes - ea NIDDM; CHF; COPD; - Immunization history:: Adult Immunizations unknown. - Social history:: Smoking status: Patient/guardian denies using tobacco, Patient/guardian denies using alcohol, street drugs, The patient lives with family. - Ebola Screening: : No symptoms or risks identified at this time. - Family history:: not pertinent. - Hospitalizations: : No recent hospitalization is reported. ROS: 05:24 Constitutional: Negative for fever, chills, and weight loss. ma2 05:24 All other systems are negative. Exam: 05:24 Constitutional: This is a well developed, well nourished patient who is awake, alert, ma2 and in no acute distress. Chest/axilla: Normal chest wall appearance and motion. Nontender with no deformity. No lesions are appreciated. Cardiovascular: Regular rate and rhythm with a normal S1 and S2. No gallops, murmurs, or rubs. Normal PMI, no JVD. No pulse deficits. 05:24 MS/ Extremity: Pulses equal, no cyanosis. Neurovascular intact. Full, normal range of motion. Neuro: Awake and alert, GCS 15, oriented to person, place, time, and situation. Cranial nerves II-XII grossly intact. Motor strength 5/5 in all extremities. Sensory grossly intact. Cerebellar exam normal. Normal gait. 05:24 Respiratory: moderate respiratory distress is noted, Respirations: labored breathing, Breath sounds: rales, bronchial sounds, Respiratory rate: 2 Vital Signs: 03:32 BP 112 / 65; Pulse 101; Resp 38; Temp 99.4; Pulse Ox 96% on R/A; Weight 129.9 kg; ea Height 5 ft. 11 in. (180.34 cm); Pain 0/10; 04:24 BP 96 / 54; Pulse 84; Resp 20 S; Pulse Ox 99% on 7% Nebulizer Mask; bb 05:38 BP 92 / 48; Pulse 81; Resp 18; Pulse Ox 100% on trache mask; bb 05:57 BP 100 / 56; Pulse 81; Resp 17; Pulse Ox 100% on Nebulizer Mask; bb 03:32 Body Mass Index 39.94 (129.90 kg, 180.34 cm) ea MDM: 04:05 Patient medically screened. ma2 05:24 Differential diagnosis: Anemia Anxiety Reaction asthma, reactive airway disease. Data ar2 reviewed: vital signs, nurses notes, lab test result(s), radiologic studies. Counseling: I had a detailed discussion with the patient and/or guardian regarding: the historical points, exam findings, and any diagnostic results supporting the discharge/admit diagnosis, the presence of at least one elevated blood pressure reading (>120/80) during this emergency department visit, the need for further work-up and treatment in the hospital. 10/21 03:37 Order name: Blood Culture Adult (2[facility] 10/21 03:37 Order name: BMP; Complete Time: 05:20 [facility] 10/21 03:37 Order name: CBC with Diff; Complete Time: 05:20 ar10/21 03:37 Order name: Ckmb; Complete Time: 05:20 10/21 03:37 Order name: CPK; Complete Time: 05:20 10/21 03:37 Order name: D-Dimer; Complete Time: 05:20 ar10/21 03:37 Order name: Hepatic Function; Complete Time: 05:20 10/21 03:37 Order name: Lipase; Complete Time: 05:20 10/21 03:37 Order name: Magnesium; Complete Time: 05:20 10/21 03:37 Order name: NT PRO-BNP; Complete Time: 05:20 10/21 03:37 Order name: PT-INR; Complete Time: 05:20 10/21 03:37 Order name: Ptt, Activated; Complete Time: 05:20 ar10/21 03:37 Order name: Troponin (emerg Dept Use Only); Complete Time: 05:20 ar10/21 05:33 Order name: Basic Metabolic Panel [facility] 10/21 03:37 Order name: XRAY CXR (1 view) 2 10/21 03:37 Order name: EKG; Complete Time: 03:38 ma2 10/21 05:33 Order name: Basic Metabolic Panel EDMS 10/21 05:33 Order name: CBC with Automated Diff EDMS 10/21 05:33 Order name: CBC with Automated Diff EDMS 10/21 05:33 Order name: NT PRO-BNP EDMS 10/21 05:33 Order name: NT PRO-BNP EDMS 10/21 05:33 Order name: Troponin I [facility] 10/21 05:33 Order name: Troponin I [facility] 10/21 05:34 Order name: Troponin I [facility] 10/21 03:37 Order name: Cardiac monitoring; Complete Time: 04:20 [facility] 10/21 03:37 Order name: EKG - Nurse/Tech; Complete Time: 04:20 [facility] 10/21 03:37 Order name: IV Saline Lock; Complete Time: 04:19 [facility] 10/21 03:37 Order name: Labs collected and sent; Complete Time: 04:19 ar10/21 03:37 Order name: O2 Per Protocol; Complete Time: 04:19 [facility] 10/21 03:37 Order name: O2 Sat Monitoring; Complete Time: 04: [facility] 10/21 05:33 Order name: Heart Healthy EDND Administered Medications: 04:00 Drug: Xopenex 1.25 mg Route: Inhalation; bb 04:00 Drug: AtroVENT Aerosol 0.5 mg Route: Inhalation; bb 04:20 Drug: SOLU-Medrol 125 mg Route: IVP; Site: right hand; bb 05:49 Follow up: Response: No adverse reaction bb 05:41 Drug: Rocephin 1 grams Route: IV; Rate: calculated rate; Site: right hand; ea 05:46 Follow up: IV Status: Completed infusion; IV Intake: 10ml bb 05:42 Drug: Doxycycline 100 mg Route: PO; ea 05:50 Follow up: Response: No adverse reaction bb 05:50 Drug: Albuterol 1.25 mg Route: Inhalation; bb 05:50 Drug: AtroVENT Aerosol 0.5 mg Route: Inhalation; bb Disposition: 10/21/18 05:26 Hospitalization ordered by Anmol Salazar for Observation. Preliminary diagnosis is Chronic obstructive pulmonary disease with (acute) exacerbation. - Bed requested for Telemetry/MedSurg (observation). - Status is Observation. bb - Condition is Stable. - Problem is new. - Symptoms are unchanged. UTI on Admission? No Signatures: Dispatcher [employer] EDMS Bri Keane RN RN bb Garcia, Cindy, RN RN cg Antunez, Elena, RN RN ea Alzahri, Mohammad, MD MD ma2 Corrections: (The following items were deleted from the chart) 05:39 05:26 Hospitalization Ordered by Anmol Salazar MD for Observation. Preliminary diagnosis cg is Chronic obstructive pulmonary disease with (acute) exacerbation. Bed requested for Telemetry/MedSurg (observation). Status is Observation. Condition is Stable. Problem is new. Symptoms are unchanged. UTI on Admission? No. ma2 06:43 05:39 10/21/2018 05:26 Hospitalization Ordered by Anmol Salazar MD for Observation. bb Preliminary diagnosis is Chronic obstructive pulmonary disease with (acute) exacerbation. Bed requested for Telemetry/MedSurg (observation). Status is Observation. Condition is Stable. Problem is new. Symptoms are unchanged. UTI on Admission? No. cg
[2018-10-21] MEDS ORDERED: IPRATROPIUM BROM 0.5MG/2.5ML NEB PRN (05:30)
[2018-10-21] MEDS ORDERED: MORPHINE 4 MG/ML SYR IV PRN (05:30)
[2018-10-21] MEDS ORDERED: ONDANSETRON 4 MG/2 ML VIAL IV PRN (05:30)
[2018-10-21] MEDS ORDERED: CEFTRIAXONE/SWI 1gm 1 GM/10 ML SYR ONE (05:48)
[2018-10-21] MEDS ORDERED: DOXYCYCLINE 100 MG CAP PO ONE (05:48)
[2018-10-21 06:51] VITALS: BMI 39.9
--- NOTE | 2018-10-21 08:22 | RAD REPORT ---
EXAM DESCRIPTION: RAD - Chest Single View - 10/21/2018 3:55 am CLINICAL HISTORY: COPD, difficulty breathing COMPARISON: September 13 TECHNIQUE: AP portable chest image was obtained 0352 hours . FINDINGS: Pacemaker/defibrillator is in place on the right. Trach tube is in place. No peripheral ma ss or consolidation. No significant failure or volume overload. Lung markings are mildly prominent bu t not clearly different from comparison. Cardiomegaly is present similar to comparison. No acute vascular engorgement. No measurable pleural effusion and no pneumothorax. No acute bony abnormality seen. No acute aortic findings suspected. IMPRESSION: No acute cardiopulmonary process. Chest findings are not significantly different from September 13 examination.
[2018-10-21] MEDS ORDERED: METHYLPREDNISOLONE 40 MG INJ IV SCH (09:00)
[2018-10-21] MEDS ORDERED: CEFTRIAXONE/SWI 1gm 1 GM/10 ML SYR IV SCH ×2 (09:00→21:00)
[2018-10-21] MEDS ORDERED: NITROGLYCERIN 0.4 MG/TAB SL PRN (10:50)
[2018-10-21] MEDS ORDERED: D50W 25 GM/50 ML SYRINGE IV PRN (11:53)
[2018-10-21] MEDS ORDERED: GLUCAGON 1 MG/VIAL IM PRN (11:53)
[2018-10-21] MEDS: SEVELAMER CARBONATE 800 MG TABLET PO SCH ×2 (12:06→17:46)
[2018-10-21] MEDS: INSULIN -REGULAR HUMAN 50 UNIT/0.5 ML ML SQ SCH ×3 (12:07→20:44)
[2018-10-21] MEDS: ARFORMOTEROL TARTRATE 15 MCG/2 ML VIAL.NEB NEB SCH ×2 (12:43→19:45)
--- NOTE | 2018-10-21 12:44 | P.CNS ---
Date of Consult: 10/21/18 Chief Complaint: Shortness of breath History of Present Illness: Patient is 78 years of age well known to me with a history of presume COPD recurrent hospitalizations admitted with worsening dyspnea since last complaining of a dry cough no fever chills or chest pain with chronic lower extremity edema as compliant with his nebulizers denies excessive consumption loss of salt of fluid intake does undergo dialysis on an as scheduled basis Allergies iodine [Iodine] Allergy (Intermediate, Verified 04/13/18 02:39) Itching ciprofloxacin [From Cipro] Allergy (Verified 07/07/18 03:03) unknown meperidine [From Demerol] Allergy (Verified 07/07/18 03:03) unknown SHELLFISH Allergy (Uncoded 06/02/15 15:35) Unknown Home Medications: Albuterol Sulfate [Albuterol Sulfate 0.083% Neb Soln] 2.5 mg NEB QID 10/21/18 Allopurinol [Zyloprim*] 200 mg PO DAILY 10/21/18 Amiodarone HCl 100 mg PO DAILY 10/21/18 Aspirin [Samantha Chewable Aspirin] 81 mg PO DAILY 10/21/18 Calcium Carbonate [Tums Regular*] 1,000 mg PO BM 10/21/18 Cholecalciferol (Vitamin D3) [Vitamin D3] 2,000 unit PO DAILY 10/21/18 Clopidogrel Bisulfate [Plavix*] 75 mg PO DAILY 10/21/18 Ferrous Sulfate [Ferrous Sulfate*] 65 mg PO DAILY 10/21/18 Fluticasone Propionate [24 Hour Allergy] 1 spr IH BID 10/21/18 Gabapentin [Neurontin*] 100 mg PO TID 10/21/18 Ipratropium [Atrovent 0.03% (21MCG)/Staley Nasal*] 1 inh IH QID 10/21/18 Nitroglycerin [Nitrostat*] 0.4 mg SL DAILYPRN PRN 10/21/18 Omeprazole 20 mg PO BID 10/21/18 Sevelamer Carbonate [Renvela*] 2 tab PO BM 10/21/18 Vitamin A 8,000 unit PO DAILY 10/21/18 Zinc 50 mg PO DAILY 10/21/18 predniSONE [Deltasone*] 10 mg PO DAILY 10/21/18 - Past Medical/Surgical History Diabetic: Yes -: Diabetes Mellitus -: COPD -: Hypertension -: PROSTATE CA -: ESRD -: DIALYSIS -: Diverticulitis -: dialysis: MWF -: anemia -: sleep apnea -: gout -: oa -: trach 06/2002 -: HD graft - L upper arm -: pacemaker - Family History Brother Medical History: Hypertension Mother Medical History: Heart disease, Hypertension Sister Medical History: Cancer Notes: breast cancer - Social History Smoking Status: Unknown if ever smoked Alcohol use: No CD- Drugs: No Caffeine use: No Place of Residence: Home Review of Systems General: Weakness Respiratory: Cough, Shortness of Breath Physical Examination Temp Pulse Resp BP Pulse Ox 98.1 F 84 16 106/56 L 97 10/21/18 08:00 10/21/18 08:00 10/21/18 08:00 10/21/18 08:00 10/21/18 08:00 General: Alert, Oriented x3, Mild distress Respiratory: Expiratory wheezes Cardiovascular: Regular rate/rhythm, Normal S1 S2, Edema Gastrointestinal: Normal bowel sounds, Soft and benign Laboratory Data (last 24 hrs) 10/21/18 04:00: PT 12.6 H, INR 1.07, APTT 32.0 10/21/18 04:00: WBC 8.5, Hgb 11.0 L, Hct 34.9 L, Plt Count 139 L 10/21/18 04:00: Sodium 139, Potassium 3.7, BUN 23 H, Creatinine 6.52 H*, Glucose 119 H, Magnesium 2.3, Total Bilirubin 0.4, AST 13 L, ALT 15, Alkaline Phosphatase 75, Lipase 246 - Problems (1) COPD exacerbation Current Visit: Yes Status: Acute Plan: Patient is 78 years of age recurrent hospitalizations for presume COPD unable to do pulmonary function due to a tracheostomy he became worse over the preceding 2 or 3 days worsening shortness of breath is compliant with his nebulizers at home no evidence of sepsis he does take prednisone 10 mg on a daily basis vital signs are stable labs reviewed no evidence of sepsis Dc antibiotics change to p.o. prednisone possible discharge tomorrow. I have advised him to take an extra dose of prednisone 10 mg whenever he has worsening shortness of breath takes 10 mg on a daily basis patient is compliant with his long-acting nebulizer which is Perforomist is chest x-rays clear labs consistent with chronic renal failure white count normal cultures pending
[2018-10-21] MEDS ORDERED: MIDODRINE HCL 5 MG TABLET PO PRN (13:11)
[2018-10-21] MEDS: ALBUTEROL 2.5 MG/3 ML NEB SOL NEB PRN ×2 (13:23→19:45)
[2018-10-21] MEDS: GABAPENTIN 100 MG CAP PO SCH ×2 (14:00→20:42)
--- NOTE | 2018-10-21 14:48 | EKG ---
Test Date: 2018-10-21 Test Time: 04:11:56 Stain Applicator: LILLI MEASUREMENT RESULTS: Intervals: Rate: 85 IA: 164 QRSD: 154 QT: 460 QTc: 547 [place]: P: 39 IA: 164 QRS: -48 T: 107 INTERPRETIVE STATEMENTS: Sinus rhythm with occasional premature ventricular complexes Left axis deviation Left bundle branch block Abnormal ECG Compared to ECG 09/13/2018 06:18:55 Left-axis deviation now present Left bundle-branch block now present Ventricular-paced complex(es) or rhythm no longer present Atrial-sensed ventricular-paced complex(es) or rhythm no longer present Electronically Signed On 10-21-18 14:47:24 CDT by Bhupendra Samson
[2018-10-21] MEDS: IPRATROPIUM BROM 0.5MG/2.5ML NEB PRN (19:45)
[2018-10-21] MEDS: PANTOPRAZOLE 40MG TABLET PO SCH (20:41)
[2018-10-21] MEDS: predniSONE 20 MG TAB PO SCH (20:42)
[2018-10-21] MEDS ORDERED: [UNRECOGNIZED DRUG - REMARK] IH SCH (21:00)
--- NOTE | 2018-10-22 00:13 | HP ---
Date of Admission: 10/21/2018 Primary Care Physician: Dr. Salazar. Consultants: Dr. Easley with Pulmonology. Chief Complaint: Shortness of breath. Code Status: Full. History Of Present Illness: The patient is a 78-year-old male with past medical history of end-stage renal disease, on hemodialysis, COPD, status post trach, on supplemental oxygen, who has had multipl e admissions to the hospital for similar issues. Last admitted on September 12, 2018, comes in with compla ints of shortness of breath. The patient states the symptoms started suddenly, not associated with a ny chest pain. Does report some cough, some mucus. No fever, chills, nausea, vomiting, diaphoresis. No ill contacts. The patient's symptoms are constant, moderate, progressively worsening. His work up in the ER showed elevated troponin level 0.08, 0.06. WBC count was normal. His chest x-ray showe d no acute cardiopulmonary process. No significant difference from comparison in September. He was then admitted to the hospital for further evaluation and treatment. Past Medical History: End-stage renal disease, on hemodialysis; COPD; chronic systolic congestive he art failure with EF around 20% to 25%; anemia of chronic disease; sleep apnea; coronary artery diseas e; diabetes mellitus type 2; allergic rhinitis; osteoarthritis; diverticulosis; cervical spondylosis with radiculopathy; prostate cancer; and GERD. Past Surgical History: AICD placement in June 2014, tracheostomy several years ago. Allergies: TO SHELLFISH, CIPRO, IODINE, AND MEPERIDINE. Medications: List reviewed. Social History: The patient denies any tobacco use or alcohol use. Family History: Significant for asthma, hypertension, and breast cancer. Review of Systems: An 11-point system reviewed. Negative except as per HPI. Physical Examination: Vital Signs: Temperature 99.4, heart rate 101, blood pressure 112/65, respirations 38, O2 96% on 7 L via trach collar. General: Awake, alert, oriented x3. Morbidly obese male, elderly, in some mild respiratory distress . HEENT: Normocephalic, atraumatic PERRLA. EOMI. Moist mucous membranes. Oropharynx is clear. Conj unctivae anicteric. Neck: Supple. Trach collar in place. CV: S1, S2. Sinus tachycardia. Peripheral pulses weak bilaterally. Respiratory: Diminished breath sounds, some wheezing heard. The patient is slightly tachypneic. No use of accessory muscles. Gastrointestinal: Abdomen is soft, nontender, nondistended. Positive bowel sounds. No guarding or rigidity. Extremities: No clubbing or cyanosis. Trace pedal edema. No calf tenderness. Neuro: Cranial nerves 2 through 12 intact grossly. No focal neurological deficit. Skin: No rashes. Normal skin turgor. Laboratory Data: WBC 8.5, H and H 11 and 34.9, platelets 139, neutrophils 73%. D-dimer 861. INR 1. 07. Sodium 139, potassium 3.7, chloride 102, CO2 28, BUN 23, creatinine 6.52, glucose 119, calcium 9 , magnesium 2.3. Troponin 0.08, repeat level is 0.06. BNP 58,114. Albumin is 3.7. Chest x-ray matilde ws no acute cardiopulmonary process, findings not significantly different from September 13 examination. Assessment And Plan: 1.Acute chronic obstructive pulmonary disease exacerbation. We will continue with breathing treatme nts and IV steroids. Consult Pulmonology. Continue supplemental oxygen. 2.Chronic systolic congestive heart failure. Continue with monitoring I's and O's, fluid restrictio n. Resume home medications. 3.End-stage renal disease, on hemodialysis. Consult Nephrology and continue dialysis. 4.Anemia of chronic disease. We will continue to monitor hemoglobin and hematocrit. 5.Elevated troponin level, likely due to hypoxia related to chronic obstructive pulmonary disease an d congestive heart failure. 6.Coronary artery disease, [place] artery and [place] heart, without angina, stable. 7.Diabetes mellitus type 2, not well controlled, with hyperglycemia and chronic kidney disease. We will continue with sliding scale insulin and monitor Accu-Cheks. 8.Obstructive sleep apnea. 9.Allergic rhinitis. 10.Generalized osteoarthritis, multiple sites, stable. 11.Gastroesophageal reflux disease without esophagitis, we will continue proton pump inhibitor. 12.Cervical spondylosis with radiculopathy, stable. 13.History of prostate cancer. 14.Deep venous thrombosis prophylaxis, addressed, Lovenox renally dosed. Plan: Admit to Med-Surg, place as observation. KARLIE Voice ID: [id number]
[2018-10-22 05:35] LABS: Absolute Lymphocytes (CBC) 0.5 K/uL (0.7-4.9); Basophils % 0.3 % (0-1.3); Hematocrit 32.7 % (39.6-49.0); Lymphocytes % 3.1 % (15.3-44.8); MPV 10.5 fL (7.6-11.3); Monocytes % 4.3 % (3.3-12.3); RBC Red Blood Cell Count 3.36 M/uL (4.33-5.43)
[2018-10-22 06:10] LABS: Potassium 4.6 mmol/L (3.5-5.1)
[2018-10-22 06:52] LABS: Anisocytosis 1+; Blood Morphology Comment NOTED (NOT SEEN); Platelet Estimate ADEQ
[2018-10-22] MEDS: INSULIN -REGULAR HUMAN 50 UNIT/0.5 ML ML SQ SCH ×3 (07:30→16:30)
[2018-10-22] MEDS: ARFORMOTEROL TARTRATE 15 MCG/2 ML VIAL.NEB NEB SCH (07:39)
[2018-10-22 08:10] VITALS: BP 106/61; TEMP 97.4
--- NOTE | 2018-10-22 08:20 | CON ---
Date of Consultation: 10/21/2018 Reason For Consultation: Elevated BUN and creatinine, over volume. History Of Present Illness: This is a pleasant 78-year-old gentleman, well-known to me from the dial ysis dialysis Thursday, Thursday, Thursday at [facility], hypertension, ___ complicated with congestive heart failure, diabetes complicated with neuropathy and nephropathy on dialysis. Patient came to the hospital. Had dialysis yesterday, did not improve in his shortness of breath after dialysis. For that reason came to the hospital today, found to have over volume for that reason, we have been consulted. We recommend for the patient for urgent dialysis. Past Medical History: 1.End-stage renal disease, on hemodialysis, Thursday, Thursday, Thursday. 2.Secondary hyperparathyroidism. 3.COPD. 4.Hypertension. 5.Coronary artery disease. 6.Diabetes. Allergies: NO KNOWN DRUG ALLERGY. Past Surgical History: Includes AV fistula creation. Family History: Positive for end-stage renal disease, hypertension, diabetes. Review of Systems: Head and Neck: No red eye. No ear pain. GI: No nausea. No vomiting. : No polyuria. No dysuria. No hematuria. Needlemaker: Not applicable. Respiratory: Has shortness of breath, has cough. Cardiovascular: Has shortness of breath, has chest pain. Endocrine: No polydipsia. Skin: No rash. Neuro: Has neuropathy. Musculoskeletal: No joint pain. Physical Examination: Vital Signs: When I saw the patient blood pressure was 104/62, pulse of 88. Chest: Wheezing bilateral. Crackles on the left side. Heart: S1, S2. Systolic murmur. Abdomen: Soft. Nontender. Extremities: Plus edema. Home Medications: Include prednisone, zinc sulfate, Renvela, omeprazole, nitroglycerin, breathing tr eatment, Plavix, calcium carbonate, amiodarone, and allopurinol. Current Medications In The Hospital: Include , amiodarone, gabapentin, Solu-Medrol, Zofran and Renvela. Laboratory Data: Lab data for the patient: WBC 8.5, H and H 11/34.9. Sodium of 139, potassium of 3 .7, bicarb 28, BUN of 23, creatinine 6.5, calcium of 9. Assessment And Plan: 1.End-stage renal disease with over volume. I will go ahead and order urgent dialysis for him. We w ill dialyze him today and tomorrow. 2.Hypertension, currently low blood pressure. We will utilize the for more ultrafiltrati on. 3.Chronic obstructive pulmonary disease exacerbation as by primary. 4.Congestive heart failure with congestive heart failure exacerbation. We will try to establish bet ter volume control. GERI Voice ID: [id number] Report ID: [id number]
[2018-10-22 08:43] VITALS: O2SAT 100
[2018-10-22] MEDS ORDERED: AMIODARONE HCL 200 MG TAB PO SCH (09:00)
[2018-10-22] MEDS ORDERED: ALLOPURINOL 100 MG TAB PO SCH (09:00)
[2018-10-22] MEDS ORDERED: FERROUS SULFATE 325 MG TAB PO SCH (09:00)
[2018-10-22] MEDS ORDERED: CLOPIDOGREL 75 MG TABLET PO SCH (09:00)
[2018-10-22] MEDS ORDERED: ASPIRIN 81 MG CHEWABLE TABLET PO SCH (09:00)
[2018-10-22] MEDS: PANTOPRAZOLE 40MG TABLET PO SCH (09:18)
[2018-10-22] MEDS: SEVELAMER CARBONATE 800 MG TABLET PO SCH ×3 (09:18→16:33)
[2018-10-22] MEDS: GABAPENTIN 100 MG CAP PO SCH ×2 (09:18→15:03)
[2018-10-22] MEDS: predniSONE 20 MG TAB PO SCH (09:18)
--- NOTE | 2018-10-22 12:18 | P.PN ---
Subjective Date of Service: 10/22/18 Chief Complaint: Shortness of breath Subjective: Improving Today seen and examined during HD Pt feels better can be discharged after HD today Physical Examination - Vital Signs Temperature: 97.4 F Blood Pressure: 106/61 Pulse: 74 Respirations: 15 Pulse Ox (%): 100 - Physical Exam General: In no apparent distress, Oriented x3 HEENT: Atraumatic Neck: Supple, Other (Tracheostomy ), Without JVD or thyroid abnormality Respiratory: Normal air movement, Diminished Cardiovascular: Regular rate/rhythm, Normal S1 S2, No gallops, No rubs, No murmurs, Edema Gastrointestinal: Soft and benign Assessment And Plan - Current Problems (Diagnosis) (1) COPD exacerbation Current Visit: Yes Status: Acute (2) ESRD (end stage renal disease) Onset Date: 08/14/14 Current Visit: No Status: Chronic - Plan End-stage renal disease HD today renal dose meds HTN Pt bp on low side required midodrine during HD COPD exacerbation OCnt inhalers and steroids CHF with fluid overload feels better Had extra HD treatment yesterday
[2018-10-22] MEDS: ALBUTEROL 2.5 MG/3 ML NEB SOL NEB PRN (17:45)
[2018-10-22] MEDS: IPRATROPIUM BROM 0.5MG/2.5ML NEB PRN (17:45)
--- NOTE | 2018-10-23 04:28 | DS ---
Date of Discharge: 10/22/2018 Consultants: Dr. Easley with Pulmonology, Dr. Dennison with Nephrology. Discharge Diagnoses: 1.Acute COPD exacerbation. 2.Chronic systolic congestive heart failure. 3.Acute respiratory failure with hypoxia. 4.Status post tracheostomy. 5.End-stage renal disease, on hemodialysis. 6.Anemia of chronic disease. 7.Elevated troponin level. 8.Coronary artery disease, [place] artery, [place] heart, without angina. 9.Diabetes mellitus type 2 with hyperglycemia and chronic kidney disease without long-term use of in sulin. 10.Obstructive sleep apnea. 11.Allergic rhinitis. 12.Generalized osteoarthritis. 13.Gastroesophageal reflux disease without esophagitis. 14.Cervical spondylosis with radiculopathy. 15.History of prostate cancer. 16.Morbid obesity. Hospital Course: The patient is a 78-year-old male, past medical history of end-stage renal disease, on hemodialysis, COPD, status post trach, who is a patient of Dr. Salazar, who is admitted to the [facility] service while Dr. Salazar is out of town. The patient has had multiple admissions for similar is sues and comes in again with shortness of breath, found to have COPD exacerbation. Chest x-ray did n ot show any acute cardiopulmonary process, showed chronic changes. He did have a mildly elevated tro ponin level, 0.08, 0.06. Did not complain of any chest pain. This was thought to be due to his hypo richard and COPD. The patient was started on breathing treatments and IV steroids. He responded well to treatment. His CHF remained stable. He was continued on dialysis by Nephrology. The patient improved. He was able to be weaned off supplemental O2. He does have a trach collar. The patient was then cleared fo r discharge from Pulmonology standpoint and Nephrology standpoint and was sent home after dialysis. Medications: As per medication reconciliation list. Followup: Follow up with primary care physician in 2-3 days. Follow up with Nephrology, Dr. Liz miramontes, in 2 weeks. Follow up with field sales associate, Dr. Easley in 2 weeks. Return to ER for worsening co ndition. Diet: Renal. Activity: No strenuous activity. Physical Examination: General: Awake, alert, oriented x3. Morbidly obese male, elderly. CV: S1, S2. Respiratory: Diminished breath sounds at the bases. No wheezing. Gastrointestinal: Abdomen is soft, nontender, nondistended. Positive bowel sounds. Extremities: No clubbing or cyanosis. The patient has peripheral edema. Neuro: Nonfocal. SA/MODL Voice ID: [id number] Report ID: [id number]
== END 2018-10-22 18:02 | disposition home or self-care (01) ==
LOC: ER 03:29 → ERHOLD 05:32 → 4TH 06:08
PROVIDERS: ADMIT Internal Medicine; ATTEND Internal Medicine
DX: J44.1 Chronic obstructive pulmonary disease with (acute) exacerbation (principal); J96.01 Acute respiratory failure with hypoxia; I13.2 Hypertensive heart and chronic kidney disease with heart failure and with stage 5 chronic kidney disease, or end stage renal disease; I50.22 Chronic systolic (congestive) heart failure; I50.84 End stage heart failure; N18.6 End stage renal disease; E11.22 Type 2 diabetes mellitus with diabetic chronic kidney disease; E11.65 Type 2 diabetes mellitus with hyperglycemia; D63.1 Anemia in chronic kidney disease; G47.33 Obstructive sleep apnea (adult) (pediatric); I25.10 Atherosclerotic heart disease of native coronary artery without angina pectoris; I95.9 Hypotension, unspecified; J30.9 Allergic rhinitis, unspecified; K21.9 Gastro-esophageal reflux disease without esophagitis; N25.81 Secondary hyperparathyroidism of renal origin; M15.0 Primary generalized (osteo)arthritis; M47.22 Other spondylosis with radiculopathy, cervical region; R77.8 Other specified abnormalities of plasma proteins; M10.9 Gout, unspecified; I44.7 Left bundle-branch block, unspecified; I49.3 Ventricular premature depolarization; R94.31 Abnormal electrocardiogram [ECG] [EKG]; E66.01 Morbid (severe) obesity due to excess calories; Z68.39 Body mass index [BMI] 39.0-39.9, adult; Z79.02 Long term (current) use of antithrombotics/antiplatelets; Z79.82 Long term (current) use of aspirin; Z79.52 Long term (current) use of systemic steroids; Z79.899 Other long term (current) drug therapy; Z99.2 Dependence on renal dialysis; Z99.81 Dependence on supplemental oxygen; Z93.0 Tracheostomy status; Z95.810 Presence of automatic (implantable) cardiac defibrillator; Z85.46 Personal history of malignant neoplasm of prostate
CPT/HCPCS: 93005; 87040 ×2; 85025 ×2; 80048 ×2; 36415 ×2; 83735; 82550; 85610; 82962 ×6; 85379; 80076; 85730; 84484 ×3; 82553; 83690; 83880 ×2; 71045; 94640; 94760; 96375; 96374; 99285; J1644; J7605 ×2; J0696; J2930; J2920; G0257 ×2; G0378 ×2; J7512

== ENCOUNTER 2018-11-28 22:53 | Inpatient (IN) | payer OTHER, MEDICARE ==
--- OUTSIDE RECORDS SUMMARY | 2018-11-28 22:56 | XMS REPORT | Clinical Summary ---
:1940 Author Organization [facility] Address [address] [place] [address] Care Team Providers Name Role Phone Anmol Salazar MD Primary Care Provider Allergies Active Allergy Reactions Severity Noted Date Comments Iodine Itching 07/30/2017 Shrimp Itching 07/30/2017 Medications Medication Sig Dispensed Refills Start Date End Date Status ALLOPURINOL ORAL Take 200 mg 0 Active by mouth daily. ASCORBIC ACID, Take 1 0 Active VITAMIN C, ORAL tablet by mouth daily. cholecalciferol, Take 2,000 0 Active vitamin D3, Units by (VITAMIN D3) 2,000 mouth daily. unit capsule capsule fluticasone 1 spray by 0 Active (FLONASE) 50 Each Nare mcg/actuation nasal route daily. spray ipratropium 2 sprays 0 Active (ATROVENT) 0.03 % into each nasal spray nostril every 12 (twelve) hours. loratadine Take 10 mg 0 Active (CLARITIN) 10 mg by mouth tablet daily. nitroglycerin Place 0.4 mg 0 Active (NITROSTAT) [...] mouth tablet daily. omeprazole Take 20 mg 0 Active (PriLOSEC) 20 MG by mouth 2 capsule (two) times a day. sevelamer (RENVELA) Take 1,600 0 Active 800 mg tablet mg by mouth 3 (three) times a day with meals. aspirin (ECOTRIN) Take 162 mg 0 Active 81 MG enteric by mouth coated tablet daily. predniSONE 0 04/18/2018 Active (DELTASONE) 10 mg tablet clopidogrel Take 1 90 tablet 3 09/09/2018 Active (PLAVIX) 75 mg tablet (75 tablet mg total) by mouth daily. clopidogrel Take 1 90 tablet 3 03/25/2017 Discontinued (PLAVIX) 75 mg tablet (75 9 (Reorder) tablet mg total) by mouth daily. Active Problems Problem Noted Date Unstable angina 07/22/2017 Overview: Added automatically from request for surgery [id number] Coronary artery disease involving [place] coronary artery of [place] heart 07/22 without angina pectoris Overview: Added automatically from request for surgery [id number] Chest pain 07/22/2017 Overview: Added automatically from request for surgery [id number] Angina pectoris 07/21/2017 Coronary artery disease of [place] artery [place] heart with stable 2017 angina pectoris Automatic implantable cardioverter-defibrillator in situ 03/10/2017 PAD (peripheral artery disease) 08/05/2016 Cardiomyopathy 08/05/2016 Systolic congestive heart failure 08/05/2016 Encounters Date Type Specialty Care Team Description 09/09/2018 Orders Only Cardiology Justin Ojeda MA 04/27/2018 Office Visit Cardiology Ad Quintero MD Chest pain, unspecified type (Primary Dx); Cardiomyopathy, unspecified type (HCC) after 11/27/2017 Family History Relation Name Status Comments Father [...] Vital Signs Vital Sign Reading Time Taken Comments Blood Pressure 108/53 04/27/2018 11:28 AM FREIGHT CLERK Pulse 94 04/27/2018 11:28 AM FREIGHT CLERK Temperature - - Respiratory Rate - - Oxygen Saturation - - Inhaled Oxygen Concentration - - Weight 138 kg (305 lb) 04/27/2018 11:28 AM FREIGHT CLERK Height 180.3 cm (5' 11") 04/27/2018 11:28 AM FREIGHT CLERK Body Mass Index 42.54 04/27/2018 11:28 AM FREIGHT CLERK Plan of Treatment Date Type Specialty Care Team Description 12/07/2018 Office Visit Cardiology Ad Quintero MD [address] [facility] [address] [place] [id number] Health Maintenance Due Date Last Done Comments SHINGLES VACCINES (#1) 1989 65+ PNEUMOCOCCAL VACCINE (1 of 2 - PCV13) 01/17/2004 INFLUENZA VACCINE 11/11/2018 Implants Implanted Type Area Electrophysiology Technologist Device Shelf Model / Identifier Expiration Serial / Date Lot Device Vasclr Clsr Vasoactive Intstnl Peptd 8fr Angio-Seal - [id number] Cardiovascular N/A: 06/10/2017 [id number] / Implanted: 08/07/2016 at [facility] (Quantity not on file) Implants N/A / [id number] Stent Bili Protege Everflex Slf-Xpndbl 120cm 1p350si - [id number] Coronary Stents N/A: [employer] 05/03/2017 [id number] 100 120 / Implanted: 08/07/2016 at [facility] (Quantity not on file) N/A / [id number] Procedures Procedure Name Priority Date/Time Associated Comments Diagnosis ECHOCARDIOGRAM 2D Routine 05/03/2018 5:01 Cardiomyopathy, Results for this COMPLETE W MMODE PM FREIGHT CLERK unspecified type procedure are in SPECTRAL COLOR DOPPLER (HCC) the results (33508) Chest pain, section. unspecified type ECG 12-LEAD Routine 04/27/2018 11:33 Cardiomyopathy, Results for this AM FREIGHT CLERK unspecified type procedure are in (HCC) the results section. after 11/27/2017 Results Echocardiogram complete w contrast and 3D if needed (05/03/2018 5:01 PM FREIGHT CLERK) Specimen Narrative Performed At [facility] Echocardiography Report Pat.Name:DILLON GARIBAY Pat.ID:[id number] St.Date: 05/03/2018 Refer.MD:AD QUINTERO MD Exam Time: 3:40:00 PMStudy Type:Routine Echo Height:71inWeight: 305lb BSA: 2.53 m2 DOBAge:1940,78Y Sex: MALEBP:108/53 HR:70 bpm Sonogrphr: EZRA Costello FASE Pat. Stat.:OutpatientRoom:[facility] Study Status:Final Echo Event ID:[id number] Order ID:[id number] Reason for Study:Cardiomyopathy with no status change [...] RAPof 5 mmHg. MEASUREMENTS: 2D Parasternal [place] LVOT 2.2 cmLA Ds4.9 cm LVIDd6 cmIndex2.4 cm/m Ao An1.9 cm LVIDs5.1 cmAo Rtd 3.4 cm Index1.4 cm/m LV%fs 13.9 % LV Yxvl329.8 g(122-174) IVSd 1.3 cmLVM Edgbz943.4 g/m2 LVPWd1.3 cmRWT0.5 LA Sng Plane LA [...] Radiology Results In - 05/04/2018 2:44 PM FREIGHT CLERK [facility] Echocardiography Report Pat.Name: DILLON GARIBAY Pat.ID: [id number] .Date: 05/03/2018 Refer.MD: AD QUINTERO MD Exam Time: 3:40:00 PM Study Type:Routine Echo Height: 71in Weight: 305lb BSA: 2.53 m2 Age: 1001/16/1940,78Y Sex: MALE BP: 108/53 HR: 70 bpm Sonogrphr: EZRA Costello FASE Pat. Stat.:Outpatient Room: [facility] Study Status:Final Echo Event ID:[id number] Order ID: [id number] Reason for Study:Cardiomyopathy with no status change [...] of 5 mmHg. MEASUREMENTS: 2D Parasternal [place] LVOT 2.2 cm LA Ds 4.9 cm [...] PM Ayo Polk M.D. Performing Organization Address City/[facility] Phone Number [facility] [address] [place] [address] ECG 12 lead (04/27/2018 11:33 AM FREIGHT CLERK) Ventricular rate 87 [facility] Atrial rate 87 [facility] VA interval 164 [facility] QRSD interval 154 [facility] QT interval 444 [facility] QTC interval 534 [facility] P axis 1 60 [facility] QRS axis 1 -16 [facility] T wave axis -73 [facility] EKG impression Atrial-sensed [facility] ventricular-paced rhythm-Abnormal ECG-In automated comparison with ECG of 21-JUL-2017 09:06,-Electronic ventricular pacemaker has replaced Sinus rhythm- Specimen Narrative Performed At Performing Organization Address City[facility] Phone Number [facility] [address] [place] [address] after 11/27/2017 Insurance Payer Benefit Plan / Subscriber ID Effective Dates Phone Address Type Group MEDICARE MEDICARE PART A xxxxxxxxxx 2004-[place], [place] Medicare AND B t AARP AARP SUPPLEMENT xxxxxxxxxxx 2008-Present Commercial (Work) [id number] Advance Directives Type Date Recorded Patient Size Worker Explanation Advance Directives, Living Will 08/07/2016 7:57 AM and Medical Power of Data Quality Consultant
--- OUTSIDE RECORDS SUMMARY | 2018-11-28 22:56 | XMS REPORT ---
:1940 [facility] Address [address] [place] [address] Dr. Vargas [address] [place] [address] Care Team Providers Name Role Phone Unavailable Unavailable Unavailable Problems This patient has no known problems. Allergies, Adverse Reactions, Alerts This patient has no known allergies or adverse reactions. Medications This patient has no known medications.
--- NOTE | 2018-11-29 00:10 | ER ---
Nurse's Notes [facility] Name: Sergio Perez Age: 78 yrs Sex: Male : 1940 Arrival Date: 11/28/2018 Time: 22:55 Bed 3 Private MD: Diagnosis: Dyspnea, unspecified Presentation: 11/28 22:56 Presenting complaint: EMS states: pt with dry cough and SOB. pt on home oxygen at 3L ak1 via trach collar. pt with dialysis M/W/F, shunt to left upper arm. pt resp distress noted at this time. Transition of care: patient was not received from another setting of care. Onset of symptoms is unknown. Risk Assessment: Do you want to hurt yourself or someone else? Patient reports no desire to harm self or others. Initial Sepsis Screen: Does the patient meet any 2 criteria? No. Patient's initial sepsis screen is negative. Does the patient have a suspected source of infection? No. Patient's initial sepsis screen is negative. Care prior to arrival: None. 22:56 Method Of Arrival: EMS: [facility] ak1 22:56 Acuity: KARLENE 3 ak1 Triage Assessment: 23:02 General: Appears in no apparent distress. comfortable, Behavior is calm, cooperative. ak1 Pain: Denies pain. EENT: trach with trach collar in place on 3L oxygen. . Neuro: Level of Consciousness is awake, alert, obeys commands, Oriented to person, place, time, situation, Regular Senior Care Provider are equal bilaterally Moves all extremities. Gait is pt uses cane . Cardiovascular: No deficits noted. Respiratory: Reports shortness of breath at rest cough that is dry, Airway is patent Trachea midline Respiratory effort is even, unlabored, Onset: The symptoms/episode began/occurred at an unknown time. the patient has mild shortness of breath. GI: No signs and/or symptoms were reported involving the gastrointestinal system. : No signs and/or symptoms were reported regarding the genitourinary system. Derm: No signs and/or symptoms reported regarding the dermatologic system. Musculoskeletal: No signs and/or symptoms reported regarding the musculoskeletal system. Historical: - Allergies: 23:01 SHELLFISH; ak1 23:01 Iodine; ak1 23:01 Demerol; ak1 23:01 Cipro; ak1 - Home Meds: 23:01 nitroglycerin 0.4 mg Oral as needed [Active]; aspirin 81 mg Oral chew 1 tab twice daily ak1 [Active]; Ferrous Sulfate 65 mg Oral 1x daily [Active]; Tums Oral 2 tabs per meal [Active]; vitamin d1 tablet 2000 IU daily [Active]; zinc sulfate 220 (50) mg Oral cap daily [Active]; vitamin A 8,000 unit Oral cap 1 cap once daily [Active]; allopurinol 200 mg Oral 2 tabs daily [Active]; omeprazole 20 mg Oral chew twice a day [Active]; clopidogrel 75 mg Oral tab 1 tab once daily [Active]; amiodarone 200 mg Oral tab 0.5 tab daily [Active]; ipratropium bromide 0.02 % inhalation soln 2.5 mL 4 times per day [Active]; albuterol sulfate 2.5 mg /3 mL (0.083 %) Inhl nebu 1 vial daily [Active]; gabapentin Oral 1 tab 3 times per day [Active]; fluticasone 50 mcg/actuation nasal spsn 1 spray 2 times per day [Active]; indura 800 mg 2 tabs before each meal TID [Active]; - PMHx: 23:01 CHF; COPD; Diabetes - NIDDM; Dialysis; M-W-F; ESRD; GERD; Gout; Hypertension; ak1 Pacemaker; with defib; - Immunization history:: Adult Immunizations unknown. - Social history:: Smoking status: Patient/guardian denies using tobacco. - Ebola Screening: : No symptoms or risks identified at this time. Screenin:01 Abuse screen: Denies threats or abuse. Denies injuries from another. Nutritional ak1 screening: No deficits noted. Tuberculosis screening: No symptoms or risk factors identified. Fall Risk None identified. Ambulatory Aid- Crutches/Cane/Walker (15 pts). Assessment: 23:04 Cardiovascular: Rhythm is sinus rhythm. ak1 23:05 Reassessment: RT at bedside for trach suctioning. after first suctioning attempt, pt ak1 able to speak. 11/29 00:08 Reassessment: Patient appears in no apparent distress at this time. Patient and/or ak1 family updated on plan of care and expected duration. Pain level reassessed. Patient is alert, oriented x 3, equal unlabored respirations, skin warm/dry/pink. Patient states feeling better. Patient states symptoms have improved. 00:09 Respiratory: Airway is patent via trache Trachea midline Respiratory effort is ak1 unlabored, congestion heard in throat and upper chest. 00:34 Reassessment: pt told he would be taken home via EMS with oxygen, pt refusing to go ak1 home stating Dr. Cantrell needs to call Dr. Salazar. pt stated if Dr. Cantrell calls Dr. Salazar, Dr. Salazar will admit the pt. pot room supervisor contacted to to come speak with the pt as per Dr. Cantrell's request, Dr. Cantrell stated pt does not meet admission requirements at this time. No resp distress has been noted or reported by the pt during this ER stay. . 01:02 Reassessment: pot room supervisor advised Dr. Cantrell to call Dr. Salazar. Dr Salazar stated to [facility] admit pt. Vital Signs: 11/28 22:55 BP 130 / 66; Pulse 86; Resp 15; Temp 98.9(TE); Pulse Ox 99% on 3% trach collar; Weight ak1 113.4 kg (R); Height 5 ft. 10 in. (177.80 cm) (R); Pain 0/10; 23:06 BP 118 / 69; Pulse 89; Resp 13; Pulse Ox 97% on 6% trach collar; ak1 11/29 00:08 BP 120 / 73; Pulse 88; Resp 16; Pulse Ox 97% on 3% trach collar; ak1 01:30 BP 137 / 77; Pulse 100; Resp 21; Temp 97.9; Pulse Ox 98% 3% ; rr5 11/28 22:55 Body Mass Index 35.87 (113.40 kg, 177.80 cm) ak1 01:30 trach collar rr5 ED Course: 11/28 22:55 Patient arrived in ED. ak1 22:55 Raghavendra Cantrell MD is Attending Physician. tw4 22:55 Arm band placed on Patient placed in an exam room, on a stretcher, on oxygen, on ak1 monitoring analyst, on pulse oximetry, Patient notified of wait time. 22:58 Triage completed. ak1 23:01 Patient has correct armband on for positive identification. Placed in gown. Bed in low ak1 position. Call light in reach. Side rails up X2. traffic monitor specialist on. Pulse ox on. NIBP on. 23:03 Rosalio Degroot, RN is Primary Nurse. rr5 23:[address], RN is Primary Nurse. ak1 23:35 X-ray completed. Portable x-ray completed in exam room. Patient tolerated procedure kw well. 23:37 Chest Single View XRAY In Process Unspecified. EDMS 11/29 00:09 No provider procedures requiring assistance completed. Patient did not have IV access ak1 during this emergency room visit. 00:38 Anmol Salazar MD is Hospitalizing Provider. tw4 Administered Medications: No medications were administered Outcome: 00:07 Discharge ordered by . tw4 00:40 Decision to Hospitalize by Provider. tw4 01:01 Admitted to Med/surg accompanied by tech, via wheelchair, room 424, with oxygen, with ak1 chart, Report called to Anna 01:01 Condition: stable 01:01 Instructed on the need for admit. 01:42 Patient left the ED. rr5 Signatures: Dispatcher [employer] EDPA Negrita Jin Joy Lane, RN RN ak1 Raghavendra Cantrell MD MD tw Rosalio Degroot, RN RN rr5 Corrections: (The following items were deleted from the chart) 01:38 01:30 BP 137 / 77; Pulse 100bpm; Resp 21bpm; Pulse Ox 98%; Temp 97.9F; rr5 rr5
--- NOTE | 2018-11-29 00:10 | EDPHYS ---
Physician Documentation [facility] Name: Sergio Perez Age: 78 yrs Sex: Male : 1940 Arrival Date: 11/28/2018 Time: 22:55 Bed 3 Private MD: ED Physician Raghavendra Cantrell HPI: 11/29 03:30 This 78 yrs old Black Male presents to ER via EMS with complaints of Non-Productive tw4 Cough, Shortness Of Breath. 03:30 The patient or guardian reports cough, that is intermittent. Onset: The tw4 symptoms/episode began/occurred today. Severity of symptoms: At their worst the symptoms were moderate, in the emergency department the symptoms are unchanged. The patient has not experienced similar symptoms in the past. Pt has a tac and feels as though he has "mucous plug" and is having difficulty breathing. Pt denies CP. Historical: - Allergies: 11/28 23:01 SHELLFISH; ak1 23:01 Iodine; ak1 23:01 Demerol; ak1 23:01 Cipro; ak1 - Home Meds: 23:01 nitroglycerin 0.4 mg Oral as needed [Active]; aspirin 81 mg Oral chew 1 tab twice daily ak1 [Active]; Ferrous Sulfate 65 mg Oral 1x daily [Active]; Tums Oral 2 tabs per meal [Active]; vitamin d1 tablet 2000 IU daily [Active]; zinc sulfate 220 (50) mg Oral cap daily [Active]; vitamin A 8,000 unit Oral cap 1 cap once daily [Active]; allopurinol 200 mg Oral 2 tabs daily [Active]; omeprazole 20 mg Oral chew twice a day [Active]; clopidogrel 75 mg Oral tab 1 tab once daily [Active]; amiodarone 200 mg Oral tab 0.5 tab daily [Active]; ipratropium bromide 0.02 % inhalation soln 2.5 mL 4 times per day [Active]; albuterol sulfate 2.5 mg /3 mL (0.083 %) Inhl nebu 1 vial daily [Active]; gabapentin Oral 1 tab 3 times per day [Active]; fluticasone 50 mcg/actuation nasal spsn 1 spray 2 times per day [Active]; indura 800 mg 2 tabs before each meal TID [Active]; - PMHx: 23:01 CHF; COPD; Diabetes - NIDDM; Dialysis; M-W-F; ESRD; GERD; Gout; Hypertension; ak1 Pacemaker; with defib; - Immunization history:: Adult Immunizations unknown. - Social history:: Smoking status: Patient/guardian denies using tobacco. - Ebola Screening: : No symptoms or risks identified at this time. ROS: 11/29 03:30 Constitutional: Negative for fever, chills, and weight loss, Eyes: Negative for injury, tw4 pain, redness, and discharge, Neck: Negative for injury, pain, and swelling, Cardiovascular: Negative for chest pain, palpitations, and edema, Abdomen/GI: Negative for abdominal pain, nausea, vomiting, diarrhea, and constipation, Back: Negative for injury and pain, Skin: Negative for injury, rash, and discoloration. Neck: Negative for Respiratory: Positive for cough, Negative for dyspnea on exertion, hemoptysis, orthopnea, pleurisy, shortness of breath. Exam: 03:30 Constitutional: This is a well developed, well nourished patient who is awake, alert, tw4 and in no acute distress. Head/Face: Normocephalic, atraumatic. 03:30 Chest/axilla: Normal chest wall appearance and motion. Nontender with no deformity. No lesions are appreciated. Cardiovascular: Regular rate and rhythm with a normal S1 and S2. No gallops, murmurs, or rubs. Normal PMI, no JVD. No pulse deficits. Respiratory: Lungs have equal breath sounds bilaterally, clear to auscultation and percussion. No rales, rhonchi or wheezes noted. No increased work of breathing, no retractions or nasal flaring. Abdomen/GI: Soft, non-tender, with normal bowel sounds. No distension or tympany. No guarding or rebound. No evidence of tenderness throughout. Back: No spinal tenderness. No costovertebral tenderness. Full range of motion. MS/ Extremity: Pulses equal, no cyanosis. Neurovascular intact. Full, normal range of motion. Neuro: Awake and alert, GCS 15, oriented to person, place, time, and situation. Cranial nerves II-XII grossly intact. Motor strength 5/5 in all extremities. Sensory grossly intact. Cerebellar exam normal. Normal gait. 03:30 Neck: Trachea: tracheostomy in place. Vital Signs: 11/28 22:55 BP 130 / 66; Pulse 86; Resp 15; Temp 98.9(TE); Pulse Ox 99% on 3% trach collar; Weight ak1 113.4 kg (R); Height 5 ft. 10 in. (177.80 cm) (R); Pain 0/10; 23:06 BP 118 / 69; Pulse 89; Resp 13; Pulse Ox 97% on 6% trach collar; ak1 11/29 00:08 BP 120 / 73; Pulse 88; Resp 16; Pulse Ox 97% on 3% trach collar; ak1 01:30 BP 137 / 77; Pulse 100; Resp 21; Temp 97.9; Pulse Ox 98% 3% ; rr5 11/28 22:55 Body Mass Index 35.87 (113.40 kg, 177.80 cm) ak1 01:30 trach collar rr5 MDM: 11/28 23:01 Patient medically screened. tw4 11/29 03:30 Differential Diagnosis: Obstructed Airway Bronchitis Influenza Otitis Media Allergic tw4 Rhinitis. Differential Diagnosis: Viral Syndrome Pneumonia Tracheal Injury. Data reviewed: vital signs, nurses notes. Data interpreted: Pulse oximetry: on 3.5L(s) per nasal canula, Interpretation: normal. Test interpretation: by ED physician or midlevel provider: plain radiologic studies. Test interpretation: by ED physician or midlevel provider: plain radiologic studies. Counseling: I had a detailed discussion with the patient and/or guardian regarding: the historical points, exam findings, and any diagnostic results supporting the discharge/admit diagnosis. Physician consultation: Anmol Salazar MD and will see patient in ED. Admission orders: after a detailed discussion of the patient's condition and case, the admit orders are written by me. Special discussion:. ED course: Pt was suctioned by respiratory therapy and stated that he continued to have shortness of breath. 11/29 00:46 Order name: CBC with Diff tw4 11/29 00:46 Order name: CMP tw4 11/29 00:46 Order name: Troponin (emerg Dept Use Only) tw4 11/29 01:17 Order name: Basic Metabolic Panel EDMS 11/29 01:18 Order name: Basic Metabolic Panel EDMS 11/29 01:18 Order name: CBC with Automated Diff EDMS 11/28 22:58 Order name: Chest Single View XRAY tw4 11/28 22:58 Order name: Suction; Complete Time: 23:05 tw4 11/29 01:18 Order name: CBC with Automated Diff EDMS 11/29 01:18 Order name: NT PRO-BNP EDMS 11/29 01:18 Order name: NT PRO-BNP EDMS 11/29 01:18 Order name: Troponin I EDMS 11/29 01:18 Order name: Troponin I EDMS 11/29 01:19 Order name: Troponin I EDMT Administered Medications: No medications were administered Disposition: 11/29/18 00:40 Hospitalization ordered by Anmol Salazar for Observation. Preliminary diagnosis is Dyspnea, unspecified. - Bed requested for Telemetry/MedSurg (observation). - Status is Observation. rr5 - Condition is Stable. - Problem is new. - Symptoms have improved. UTI on Admission? No Signatures: Dispatcher [employer] EDMS Joy aLne RN RN ak1 Raghavendra Cantrell MD MD tw4 Rosalio Degroot RN RN rr5 Corrections: (The following items were deleted from the chart) 00:38 00:07 11/29/2018 00:07 Discharged to Home. Impression: Acute tracheitis with tw4 obstruction; Mucous plug trachea. Condition is Stable. Forms are Medication Reconciliation Form, Thank You Letter, Antibiotic Education, Prescription Opioid Use. Follow up: Private Physician; When: Upon discharge from the Emergency Department; Reason: If symptoms return, Recheck today's complaints, Continuance of care. Problem is new. Symptoms have improved. tw4 00:51 00:40 Hospitalization Ordered by Anmol Salazar MD for Observation. Preliminary diagnosis tw4 is Dyspnea, unspecified. Bed requested for Telemetry/MedSurg (observation). Status is Observation. Condition is Stable. Problem is new. Symptoms have improved. UTI on Admission? No. tw4 01:42 00:51 11/29/2018 00:40 Hospitalization Ordered by Anmol Salazar MD for Observation. rr5 Preliminary diagnosis is Dyspnea, unspecified. Bed requested for Telemetry/MedSurg (observation). Status is Observation. Condition is Stable. Problem is new. Symptoms have improved. UTI on Admission? No. tw4
[2018-11-29] MEDS ORDERED: ACETAMINOPHEN 500 MG TAB PO PRN (00:55)
[2018-11-29] MEDS ORDERED: IPRATROPIUM BROM 0.5MG/2.5ML NEB PRN (00:55)
[2018-11-29] MEDS ORDERED: ALBUTEROL 2.5 MG/3 ML NEB SOL NEB PRN (00:55)
[2018-11-29] MEDS ORDERED: METHYLPREDNISOLONE 40 MG INJ IV SCH (01:00)
[2018-11-29 01:20] LABS: Absolute Lymphocytes (CBC) 1.5 K/uL (0.7-4.9); Basophils % 0.6 % (0-1.3); Hematocrit 32.6 % (39.6-49.0); Lymphocytes % 12.1 % (15.3-44.8); MPV 10.5 fL (7.6-11.3)
[2018-11-29 01:34] LABS: Albumin 3.7 g/dL (3.4-5.0); Bilirubin Total 0.3 mg/dL (0.2-1.0); Potassium 4.7 mmol/L (3.5-5.1); Protein, Total 7.1 g/dL (6.4-8.2); Troponin (Emerg Dept Use Only) 0.19 ng/mL (0.0-0.045)
[2018-11-29] MEDS: METHYLPREDNISOLONE 40 MG INJ IM SCH ×3 (02:16→16:59)
[2018-11-29] MEDS: ALBUTEROL 2.5 MG/3 ML NEB SOL NEB SCH ×4 (07:22→22:45)
[2018-11-29] MEDS: IPRATROPIUM BROM 0.5MG/2.5ML NEB SCH ×4 (07:22→22:45)
--- NOTE | 2018-11-29 08:31 | RAD REPORT ---
EXAM DESCRIPTION: RAD - Chest Single View - 11/28/2018 11:37 pm CLINICAL HISTORY: Shortness of breath, CHF and COPD history COMPARISON: October 21, 2018 TECHNIQUE: AP portable chest image was obtained 2320 hours . FINDINGS: Lung volumes are relatively low but match comparison. Trach tube and defibrillator remain in place. Interstitial pattern is mildly prominent but not clearly different. No peripheral mass or c onsolidation. Cardiomegaly is present matching comparison. No significant failure or volume overload findings. No measurable pleural effusion and no pneumothorax. No acute bony abnormality seen. No acut e aortic findings suspected. IMPRESSION: No focal lung parenchymal process seen. Cardiomegaly matching prior study.
--- NOTE | 2018-11-29 08:37 | HP ---
Date of Admission: 11/29/2018 Chief Complaint: Shortness of breath. History Of Present Illness: This is a 78-year-old very pleasant male patient with end-stage renal di sease, COPD, chronic systolic congestive heart failure, and multiple other comorbidities, came into e mergency room with complaints of cough, congestion, having some chills type of sensation and shortnes s of breath and wheezing. All this trouble started yesterday morning. He came into ER yesterday and after he was evaluated, he was discharged and as he was leaving emergency room, he started to have s hortness of breath again, so he decided to not leave, and he was admitted to the hospital, and I was contacted by ER physician. Patient denies any expectoration of any colored mucus but feels like he h as cough, congestion, and chills type of sensation. He is denying any vomiting, diarrhea. Medications: List reviewed. Review of Systems: Respiratory: As mentioned above. Constitutional: As mentioned above. All other systems reviewed and negative. Allergies: TO SHELLFISH, CIPRO, IODINE, AND MEPERIDINE. Social History: Negative for smoking, alcohol use. Family History: Significant for asthma, hypertension, breast cancer. Past Surgical History: AICD placement in June 2014, tracheostomy placement many years ago. Past Medical History: End-stage renal disease on hemodialysis, COPD, chronic systolic congestive hea rt failure with ejection fraction around 20% to 25%; anemia due to chronic kidney disease; sleep apne a; coronary artery disease, diabetes mellitus; allergic rhinitis; osteoarthritis at multiple sites; d iverticulosis; cervical spondylosis with radiculopathy, prostate cancer, gastroesophageal reflux dise ase. Physical Examination: Vital Signs: When I saw him this morning, temperature 97.6, pulse 74, respiratory rate 16, blood pre ssure 107/62, oxygen saturation 100%, height 5 feet 11 inches. Weight 285 pounds. General: Awake, alert, oriented, not in distress. HEENT: Head atraumatic, normocephalic. Conjunctivae nonerythematous. Sclerae white. Mouth, no thr ush or edema noted. Ears/Nose, no mass, lesion, discharge noted. Neck: Presence of tracheostomy tube. Lungs: Bilateral scattered wheezing noted. Not in respiratory distress. Bilateral shallow air entr y. Heart: Normal heart sounds, no murmur or gallop. Abdomen: Soft, bowel sounds normal. No guarding, rigidity, tenderness, mass, hepatosplenomegaly, dis tention, or bruit noted. Extremities: Bilateral grade 1 pedal edema. Skin: No rash, ulcer, cellulitis. Lymphatics: No lymph node enlargement in neck, supraclavicular, infraclavicular region. Neuro: No focal neurological deficit. Chest: Unremarkable. External Genitalia: Deferred. Rectal: Deferred. Laboratory Data: White count 12.3, hemoglobin 10.1, platelets 135. Sodium 138, potassium 4.7, chlor mckay 101, bicarb 24, BUN 83, creatinine 10.60, glucose 162. Liver function tests unremarkable. Tropo rigoberto 0.19 on the first set, second set 0.42. Chest x-ray was reported as no acute cardiopulmonary tono nges. Official Radiology report is pending. Impression: 1.Acute exacerbation of chronic obstructive pulmonary disease. 2.Chronic systolic congestive heart failure. 3.End-stage renal disease, on hemodialysis. 4.Anemia due to chronic kidney disease. 5.Coronary artery disease. 6.Sleep apnea. 7.Diabetes mellitus, type 2. 8.Allergic rhinitis. 9.Osteoarthritis, multiple sites. 10.Diverticulosis. 11.Gastroesophageal reflux disease. 12.Prostate cancer. 13.Cervical radiculopathy. Plan: We will go ahead and admit the patient to hospital for further evaluation and management of th is problem. The patient is appropriate for inpatient and is expected to spend 2 midnights in the [facility]. We will consult district loss prevention manager for dialysis support. Home medications will be continued per or david. We will give him nebulizer treatment, IV steroids, and DVT prophylaxis. Also, give him empiric antibiotics and details and plan of treatment discussed with him. I will see him tomorrow for zeferino dangelo. ODESSA/MODL Voice ID: [id number]
[2018-11-29] MEDS: GABAPENTIN 100 MG CAP PO SCH ×3 (09:00→22:15)
[2018-11-29] MEDS ORDERED: ASPIRIN EC 81 MG TAB PO SCH (09:00)
[2018-11-29] MEDS ORDERED: FERROUS SULFATE 325 MG TAB PO SCH (09:00)
[2018-11-29] MEDS: VITAMIN D 1000 UNIT TAB PO SCH (09:00)
[2018-11-29] MEDS: ALLOPURINOL 100 MG TAB PO SCH (09:00)
[2018-11-29] MEDS: VITAMIN A 8000 UNIT PO SCH (09:00)
[2018-11-29] MEDS ORDERED: CEFTRIAXONE 1 GM/NS 50 ML 1 GM/50 ML BAG IV SCH (09:00)
[2018-11-29] MEDS ORDERED: HOME MED 1 EA UNK (Zinc [Zinc] 50 MG) PO SCH (09:00)
[2018-11-29] MEDS: [UNRECOGNIZED DRUG - REMARK] IH SCH ×2 (09:00→21:00)
[2018-11-29] MEDS: AMIODARONE HCL 200 MG TAB PO SCH (09:01)
[2018-11-29] MEDS: ASPIRIN 81 MG CHEWABLE TABLET PO SCH (09:01)
[2018-11-29] MEDS: CLOPIDOGREL 75 MG TABLET PO SCH (09:09)
[2018-11-29] MEDS: CEFTRIAXONE/SWI 1gm 1 GM/10 ML SYR IV SCH ×2 (10:48→22:16)
[2018-11-29] MEDS: HEPARIN 5000 UNIT/ML 1 ML VIAL SQ SCH ×2 (10:51→22:16)
[2018-11-29] MEDS: CALCIUM CARBONATE CHEW 500MG TAB PO SCH ×2 (11:57→16:51)
[2018-11-29] MEDS: SEVELAMER CARBONATE 800 MG TABLET PO SCH ×2 (12:02→16:51)
[2018-11-29] MEDS: PANTOPRAZOLE 40MG TABLET PO SCH (16:51)
[2018-11-29] MEDS ORDERED: NA CHLORIDE 0.9% 1,000 ML IV PRN (17:01)
[2018-11-29] MEDS ORDERED: MANNITOL 25% 12.5 GM/50 ML VIAL IV PRN (17:01)
[2018-11-29] MEDS: METHYLPREDNISOLONE 40 MG INJ IV SCH (17:14)
[2018-11-29] MEDS ORDERED: ALBUMIN HUMAN 25% 50 ML IV SCH (18:00)
[2018-11-30] MEDS: METHYLPREDNISOLONE 40 MG INJ IV SCH ×3 (00:01→16:23)
--- NOTE | 2018-11-30 01:53 | CON ---
Date of Consultation: 11/29/2018 Chief Complaint: End-stage renal disease, congestive heart failure with diastolic dysfunction, fluid overload, severe dyspnea. History Of Present Illness: Patient presented to the hospital because of generalized pain in the sheree st area as well as shortness of breath, difficulty with ambulation, severe shortness of breath at res t associated with chest discomfort. He denies fever, chills. He has history of COPD exacerbation an d basically history of trach. Patient has a history of multiple admissions for decompensated congestive heart failure with diastoli c dysfunction due to fluid overload. He has end-stage renal disease. He has been dialyzed 3 times p er week on Thursday, Thursday, and Thursday. He is a 78-year-old man with history of congestive heart f ailure diastolic and systolic dysfunction, multiple comorbidities. He came to emergency room complai luis daniel of chest congestion, chest discomfort. He had episode of chills and developed wheezing and prog ressively worse shortness of breath. Symptoms were getting worse in the morning, then he came to [facility] room. Dialysis is scheduled today with ultrafiltration and procedure will be done as soon as possible to control volemia. Review of Systems: Constitutional: Denies headache, vision changes. Ears, Nose, Mouth, and Throat: Denies sore throat, earache. Respiratory: Complains of shortness of breath, wheezing. Cardiovascular: Complains of chest congestion and chest discomfort. GI: Denies nausea, vomiting. : Denies dysuria, hematuria. Musculoskeletal: Denies muscle aches or joint swelling. Has edema in both legs. All other systems reviewed and all are negative. Past Medical History: End-stage renal disease, anemia in CKD, renal osteodystrophy, coronary artery disease, hypertensive heart and kidney disease, obesity, obstructive sleep apnea, COPD, trach, chroni c respiratory failure, hypoxemic, renal osteodystrophy. Family History: Asthma, hypertension, breast cancer. Social History: Negative for tobacco, alcohol, or illicit drugs. Physical Examination: Vital Signs: Blood pressure is 107/62, heart rate is 74, temperature 97.6, SpO2 saturation 96%. Eyes: Anicteric sclerae. EOMI. Ears, Nose, Mouth, and Throat: Oral mucosa moist. No pallor. Neck: Supple. No bruits. Lungs: Crackles bilaterally, few wheezes. Heart: S1, S2. 2/6 systolic murmur in left lower sternal border. No pericardial friction rub. Abdomen: Obese, soft, nontender. No rebound. No guarding. Extremities: Edema in both legs. Skin: Chronic dermatitis. Neurological: Moving extremities. Cranial nerves intact. Psychiatric: Alert, oriented x3. Normal affect. Laboratory Data: Hemoglobin 10.1, WBC 12.3, platelet count 135,000. Sodium 138, potassium 4.7, chlo ride 101. Bicarbonate 24, BUN 83, creatinine 10.6, glucose 162. Troponin 0.19, 0.42. Chest x-ray s howed interstitial pulmonary edema. Impression And Plan: 1.Acute exacerbation of chronic obstructive pulmonary disease, congestive heart failure with systoli c and diastolic dysfunction, fluid overload, peripheral edema, anasarca. Patient will have stat dial ysis to control volemia. Ultrafiltration will be done to treat congestive heart failure. Continue l ow-sodium diet and p.o. fluid restriction. 2.Intra-dialysis hypotension. Continue to monitor blood pressure. Continue midodrine. 3.Sleep apnea. Continue BiPAP. Patient has chronic respiratory failure with previous tracheostomy. 4.Anemia in chronic kidney disease. Monitor hemoglobin level. Adjust JAIRO. 5.Renal osteodystrophy. Continue renal diet and binders. 6.Chronic obstructive pulmonary disease exacerbation. Patient will continue IV steroids and nebuliz er. 7.Deep venous thrombosis prophylaxis, antibiotic as needed. Monitor O2 saturation. Adjust treatment with oxygen supplementation as needed. ALEXI/PATRICK Voice ID: [id number] Report ID: [id number]
[2018-11-30] MEDS: IPRATROPIUM BROM 0.5MG/2.5ML NEB SCH ×4 (02:00→20:05)
[2018-11-30] MEDS: ALBUTEROL 2.5 MG/3 ML NEB SOL NEB SCH ×4 (02:00→20:05)
[2018-11-30 04:29] LABS: Absolute Lymphocytes (CBC) 0.3 K/uL (0.7-4.9); Basophils % 0.1 % (0-1.3); Hematocrit 35.1 % (39.6-49.0); Lymphocytes % 2.3 % (15.3-44.8); MPV 10.6 fL (7.6-11.3); RBC Red Blood Cell Count 3.55 M/uL (4.33-5.43)
[2018-11-30 05:31] LABS: Blood Morphology Comment NOT SEEN (NOT SEEN); Platelet Estimate DECR
[2018-11-30 08:18] LABS: Potassium 5.2 mmol/L (3.5-5.1)
[2018-11-30] MEDS: PANTOPRAZOLE 40MG TABLET PO SCH ×2 (08:21→16:22)
[2018-11-30] MEDS: CEFTRIAXONE/SWI 1gm 1 GM/10 ML SYR IV SCH ×2 (08:21→21:38)
[2018-11-30] MEDS: ASPIRIN 81 MG CHEWABLE TABLET PO SCH (08:21)
[2018-11-30] MEDS: ALLOPURINOL 100 MG TAB PO SCH (08:21)
[2018-11-30] MEDS: CALCIUM CARBONATE CHEW 500MG TAB PO SCH ×3 (08:21→16:22)
[2018-11-30] MEDS: CLOPIDOGREL 75 MG TABLET PO SCH (08:21)
[2018-11-30] MEDS: SEVELAMER CARBONATE 800 MG TABLET PO SCH ×3 (08:22→16:22)
[2018-11-30] MEDS: AMIODARONE HCL 200 MG TAB PO SCH (08:22)
[2018-11-30] MEDS: GABAPENTIN 100 MG CAP PO SCH ×3 (08:22→21:37)
[2018-11-30] MEDS: VITAMIN A 8000 UNIT PO SCH (08:23)
[2018-11-30] MEDS: FERROUS SULFATE 325 MG TAB PO SCH (08:23)
[2018-11-30] MEDS: [UNRECOGNIZED DRUG - REMARK] IH SCH ×2 (08:23→21:00)
[2018-11-30] MEDS: VITAMIN D 1000 UNIT TAB PO SCH (08:26)
[2018-11-30] MEDS: HEPARIN 5000 UNIT/ML 1 ML VIAL SQ SCH ×2 (08:26→21:38)
[2018-11-30] MEDS: ZINC SULFATE 220 MG CAP PO SCH (08:31)
[2018-11-30] MEDS ORDERED: MIDODRINE HCL 5 MG TABLET PO PRN (10:32)
--- NOTE | 2018-11-30 11:07 | P.PN ---
Subjective Date of Service: 11/30/18 Primary Care Provider: Dr Salazar Chief Complaint: SOB Subjective: Improving Subjective pt With ESRd , Hx of CHF S/p AICD, recurrent COPD pt presented with SOB today feels much better still have le edema will set for dialysis tomorrow on inhalers and IV steroids Physical Examination - Vital Signs Temperature: 97.0 F Blood Pressure: 119/57 Pulse: 71 Respirations: 16 Pulse Ox (%): 99 - Physical Exam General: In no apparent distress, Oriented x3 HEENT: Atraumatic Neck: Supple, Other (Tracheostomy ), Without JVD or thyroid abnormality Respiratory: Diminished Cardiovascular: Regular rate/rhythm, Normal S1 S2, No gallops, No rubs, No murmurs, Edema Gastrointestinal: Normal bowel sounds, Soft and benign Musculoskeletal: Swelling Assessment And Plan - Current Problems (Diagnosis) (1) COPD exacerbation Current Visit: No Status: Acute (2) ESRD on hemodialysis Onset Date: 06/04/15 Current Visit: No Status: Acute - Plan End-stage renal disease on CAROLE MWF from [facility] will Cont HD MWF renal dose meds HTN Pt bp on low side required midodrine during HD COPD exacerbation Cont inhalers and steroids and Abx CHF with fluid overload feels better will cont HD MWF
[2018-11-30] MEDS ORDERED: predniSONE 20 MG TAB PO ONE (21:00)
--- NOTE | 2018-11-30 23:50 | PN ---
Date of Progress Note: 11/30/2018 Subjective: Patient was seen this morning for followup. No new complaints or problems reported. St ill has some cough, congestion, wheezing, but feels better this morning than yesterday. Had dialysis yesterday. Objective: Vital Signs: Reviewed. HEENT: Unremarkable. Lungs: Bilateral good equal air entry. Scattered wheezing noted, better today than yesterday. Heart: Sounds normal. Abdomen: Soft. Bowel sounds normal. No guarding, rigidity, tenderness, or distention. Extremities: Bilateral trace leg edema. Laboratory Data: White count 11.5, hemoglobin 11.1, platelets 130. Impression: 1.Acute exacerbation of chronic obstructive pulmonary disease. 2.End-stage renal disease, on hemodialysis. 3.Chronic systolic congestive heart failure. 4.Hypertension. 5.Anemia due to chronic kidney disease. Plan: We will go ahead and continue current medication including steroid, antibiotic, nebulizer sravanthi tment. Continue to follow with nuclear chemistry technician for dialysis support. I will see him tomorrow for zeferino dangelo. ODESSA/MODL Voice ID: [id number] Report ID: [id number]
[2018-12-01] MEDS: IPRATROPIUM BROM 0.5MG/2.5ML NEB SCH ×4 (02:40→19:55)
[2018-12-01] MEDS: ALBUTEROL 2.5 MG/3 ML NEB SOL NEB SCH ×4 (02:40→20:00)
[2018-12-01] MEDS: CALCIUM CARBONATE CHEW 500MG TAB PO SCH ×3 (07:23→16:49)
[2018-12-01] MEDS: PANTOPRAZOLE 40MG TABLET PO SCH ×2 (07:23→16:49)
[2018-12-01] MEDS: AMIODARONE HCL 200 MG TAB PO SCH (07:24)
[2018-12-01] MEDS: ASPIRIN 81 MG CHEWABLE TABLET PO SCH (07:24)
[2018-12-01] MEDS: FERROUS SULFATE 325 MG TAB PO SCH (07:24)
[2018-12-01] MEDS: CLOPIDOGREL 75 MG TABLET PO SCH (07:24)
[2018-12-01] MEDS: SEVELAMER CARBONATE 800 MG TABLET PO SCH ×3 (07:25→16:49)
[2018-12-01] MEDS: ZINC SULFATE 220 MG CAP PO SCH (07:25)
[2018-12-01] MEDS: HEPARIN 5000 UNIT/ML 1 ML VIAL SQ SCH ×2 (07:25→20:10)
[2018-12-01] MEDS: ALLOPURINOL 100 MG TAB PO SCH (07:25)
[2018-12-01] MEDS: GABAPENTIN 100 MG CAP PO SCH ×3 (07:25→20:10)
[2018-12-01] MEDS: VITAMIN A 8000 UNIT PO SCH (07:26)
[2018-12-01] MEDS: [UNRECOGNIZED DRUG - REMARK] IH SCH ×2 (07:26→20:10)
[2018-12-01] MEDS: VITAMIN D 1000 UNIT TAB PO SCH (07:26)
[2018-12-01] MEDS: CEFTRIAXONE/SWI 1gm 1 GM/10 ML SYR IV SCH ×2 (07:27→20:15)
--- NOTE | 2018-12-01 07:45 | EKG ---
Test Date: 2018-11-30 Test Time: 23:54:15 Assistant Mechanic: RT-O MEASUREMENT RESULTS: Intervals: Rate: 84 ME: 162 QRSD: 152 QT: 452 QTc: 534 [place]: P: 18 ME: 162 QRS: -75 T: 262 INTERPRETIVE STATEMENTS: Atrial-sensed ventricular-paced rhythm Compared to ECG 10/21/2018 04:11:56 Sinus rhythm no longer present Ventricular premature complex(es) no longer present Electronically Signed On 12-01-18 07:44:39 CDT by Thomas Middleton
[2018-12-01] MEDS: NITROGLYCERIN 0.4 MG/TAB SL PRN ×3 (11:10→11:20)
--- NOTE | 2018-12-01 15:24 | PN ---
Subjective: Patient admitted with over volume and COPD exacerbation. Patient seen on dialysis. Objective: Vital Signs: Blood pressure of 125/60, puls 66 afibriale . Chest: Crackles on the base. Heart: S1, S2, regular. Abdomen: Soft, nontender. Extremities: +1 edema. Laboratory Data: H and H 11.1/35.1, platelets 130. Sodium 134, potassium 5.2 , bicarb 22, BUN 74, creatinine 9.6, calcium 8.7. BNP 67,000. Assessment And Plan: 1. End-stage renal disease, over volume. We will dialyze the patient today and challenge. 2. Chronic obstructive pulmonary disease exacerbation. Continue current treatment. 3. Hyperkalemia. Patient is going to be dialyzed on low-potassium bath. 4. Over volume, will be challenged. GERI Voice ID: [id number] Report ID: [id number]
[2018-12-01] MEDS: GUAIFENESIN/DM 5 ML UCUP PO PRN (22:17)
--- NOTE | 2018-12-02 00:23 | PN ---
Date of Progress Note: 12/01/2018 Subjective: Patient was seen this morning for followup. His breathing was better. He had chest katie n last night and relieved with 1 nitroglycerin sublingual tablet. So when I saw him this morning, he was pain free. Patient has history of chest pain from time to time, but has not had chest pain in a long time as he reported, but he always carries his nitroglycerin with him and on outpatient basis, he sees janitorial supervisor Dr. Carrasquillo on a regular basis. Our plan was today to discharge him to go home aft er hemodialysis, but during his hemodialysis, he had another episode of chest pain and had to use nit roglycerin 2-3 more times, so we have decided to cancel his discharge today. Objective: Vital Signs: Reviewed. HEENT: Unremarkable. Lungs: Clear to auscultation. No rhonchi. No rales. Heart: Sounds normal. Abdomen: Soft. Bowel sounds normal. No guarding, rigidity, tenderness, or distention. Extremities: No leg edema. Laboratory Data: Yesterday, white count 11.5, hemoglobin 11.1, platelets 130. Yesterday, sodium 134 , potassium 5.2, chloride 98, bicarb 22, BUN 74, creatinine 9.68. Impression: 1.Acute exacerbation of chronic obstructive pulmonary disease, improved. 2.Angina. 3.End-stage renal disease, on hemodialysis. 4.Anemia due to chronic kidney disease. 5.Hypertension. Plan: We will go ahead and cancel discharge. We will get an echocardiogram with Doppler and a stres s test done tomorrow morning and then we will decide about discharge depending on those results. I will see him in the morning fo r followup. ODESSA/MODL Voice ID: [id number] Report ID: [id number]
[2018-12-02] MEDS: IPRATROPIUM BROM 0.5MG/2.5ML NEB SCH ×4 (02:20→20:00)
[2018-12-02] MEDS: ALBUTEROL 2.5 MG/3 ML NEB SOL NEB SCH ×4 (02:20→20:00)
[2018-12-02] MEDS: GUAIFENESIN/DM 5 ML UCUP PO PRN ×3 (04:10→23:13)
[2018-12-02 06:43] VITALS: BMI 40.7
[2018-12-02] MEDS: SEVELAMER CARBONATE 800 MG TABLET PO SCH ×3 (08:00→17:24)
[2018-12-02] MEDS: VITAMIN D 1000 UNIT TAB PO SCH (09:00)
[2018-12-02] MEDS: CEFTRIAXONE/SWI 1gm 1 GM/10 ML SYR IV SCH ×2 (09:00→21:34)
[2018-12-02] MEDS: VITAMIN A 8000 UNIT PO SCH (09:00)
[2018-12-02] MEDS: [UNRECOGNIZED DRUG - REMARK] IH SCH ×2 (09:00→21:00)
[2018-12-02] MEDS ORDERED: REGADENOSON 0.4 MG/5 ML SYR IV ONE (09:10)
[2018-12-02] MEDS: CALCIUM CARBONATE CHEW 500MG TAB PO SCH ×3 (10:06→17:24)
[2018-12-02] MEDS: PANTOPRAZOLE 40MG TABLET PO SCH ×2 (10:07→17:26)
[2018-12-02] MEDS: ALLOPURINOL 100 MG TAB PO SCH (10:07)
[2018-12-02] MEDS: FERROUS SULFATE 325 MG TAB PO SCH (10:07)
[2018-12-02] MEDS: CLOPIDOGREL 75 MG TABLET PO SCH (10:07)
[2018-12-02] MEDS: GABAPENTIN 100 MG CAP PO SCH ×3 (10:07→21:34)
[2018-12-02] MEDS: ASPIRIN 81 MG CHEWABLE TABLET PO SCH (10:07)
[2018-12-02] MEDS: ZINC SULFATE 220 MG CAP PO SCH (10:08)
[2018-12-02] MEDS: AMIODARONE HCL 200 MG TAB PO SCH (10:08)
[2018-12-02] MEDS: HEPARIN 5000 UNIT/ML 1 ML VIAL SQ SCH ×2 (10:09→22:00)
--- NOTE | 2018-12-02 11:49 | RAD REPORT ---
EXAM DESCRIPTION: NM - Rest Stress Cardiac Imaging - 12/02/2018 11:32 am CLINICAL HISTORY: CP Chest pain. COMPARISON: REST STRESS CARDIAC dated 02/10/2014 TECHNIQUE: The patient was administered approximately 10mCi of Tc 99m Sestamibi prior to resting SPE CT imaging of the heart. The patient was then administered approximately 30 mCi of Tc 99m Sestamibi f ollowing exercise or pharmacologic stress. Multiplanar SPECT images were reviewed. FINDINGS: No stress induced ischemic defect is seen to suggest stress induced ischemia. Large thick perfusion defect involving the inferior left myocardium most compatible with scar tissues from prior infarct. The end diastolic volume is 387 ml, the end systolic volume is 303 ml, and the ejection fraction is 2 2 %. IMPRESSION: No stress induced ischemia. LV cavity enlargement with reduced ejection fraction of 22%. Large defect involving the inferior LV myocardium which is fixed on rest and stress, most compatible with scar tissue.
--- NOTE | 2018-12-02 15:02 | PN ---
Date of Progress Note: 12/02/2018 History Of Present Illness: Patient was admitted with COPD exacerbation, CHF exacerbation. Patient yesterday on dialysis, developed chest pain. For that reason, we stopped the dialysis 25-minute shor ter. Today, patient is chest pain free, undergo stress test. Nuclear medicine came negative. Physical Examination: Vital Signs: Blood pressure 125/62, pulse of 65. Chest: Clear to auscultation. Heart: S1, S2. Systolic murmur. Abdomen: Soft, nontender. Extremities: Plus edema. Laboratory Data: WBC 11.5, H and H 11.1/35.1. Sodium 134, potassium 5.2, bicarb 22, BUN 74, creatin ine 9.6, calcium 8.7. Medications: Current medications the patient on, its include: 1.Ceftriaxone. 2.Aspirin. 3.Breathing treatment. 4.Midodrine. 5.Plavix. 6.Calcium carbonate. 7.Nitroglycerin. Assessment And Plan: 1.End-stage renal disease, over volume. We dialyzed the patient yesterday. Patient is going to be scheduled for dialysis tomorrow. 2.Hypertension, controlled, optimal. We will keep utilizing midodrine for intradialysis hypotension . 3.Chronic obstructive pulmonary disease, as by primary. 4.Chest pain. Stress test was negative. We will follow up with the primary. 5.Hyperkalemia. Patient is going to be dialyzed on low-potassium bath tomorrow. I do not see the n eed for treatment right now. Patient cleared from the renal standpoint for discharge planning. GERI Voice ID: [id number] Report ID: [id number]
--- NOTE | 2018-12-02 15:32 | ECHO ---
HEIGHT: 5 ft 11 in WEIGHT: 292 lb 1.6 oz DATE OF STUDY: 12/02/[address]: Anmol Salazar MD 2-DIMENSIONAL: YES M.MODE: YES DOPPLER: YES COLOR FLOW: YES TDS: PORTABLE: DEFINITY: BUBBLE STUDY: DIAGNOSIS: ANGINA CARDIAC HISTORY: CATHERIZATION: NO SURGERY: NO PROSTHETIC VALVE: NO PACEMAKER: NO MEASUREMENTS (cm) DIASTOLIC (NORMALS) SYSTOLIC (NORMALS) IVSd 1.4 (0.6-1.2) LA Diam 4.7 (1.9-4.0) LVEF 44% LVIDd 5.9 (3.5-5.7) LVIDs 4.6 (2.0-3.5) %FS 22% LVPWd 1.5 (0.6-1.2) Ao Diam 3.1 (2.0-3.7) 2 DIMENSIONAL ASSESSMENT: RIGHT ATRIUM: NORMAL LEFT ATRIUM: DILATED RIGHT VENTRICLE: NORMAL LEFT VENTRICLE: LEFT VENTRICULAR HYPERTROPHY TRICUSPID VALVE: NORMAL MITRAL VALVE: MITRAL ANNULAR CALCIFICATION PULMONIC VALVE: NORMAL AORTIC VALVE: SCLEROSIS PERICARDIAL EFFUSION: NONE AORTIC ROOT: NORMAL LEFT VENTRICULAR WALL MOTION: NORMAL EF. DECREASED LEFT VENTRICULAR COMPLIANCE. DOPPLER/COLOR FLOW: MODERATE AORTIC STENOSIS. AORTIC VALVE AREA 1.2 CENTIMETERS SQUARED. MILD TRICUSPID REGURGITATION. NORMAL RIGHT VENTRICULAR SYSTOLIC PRESSURE. COMMENTS: MODERATE AORTIC STENOSIS. AORTIC VALVE AREA 1.2 CENTIMETERS SQUARED. MITRAL ANNULAR CALCIFICATION. MILD TRICUSPID REGURGITATION. LEFT VENTRICULAR HYPERTROPHY. DECREASED LEFT VENTRICULAR COMPLIANCE. TECHNOLOGIST: FRANCO JOVEL
--- NOTE | 2018-12-02 15:36 | TREADPHA ---
DX: CHEST PAIN Date of Study: 12/02/18 Ht: 5 11 Wt: 292 lb 1.6 oz Consulting Physician: SOPHIA MEDICATIONS: TYLENOL, ASPIRIN, CORDARONE, ALBUMIN, ROCEPHIN, PLAVIX, FEOSOL, NEURONTIN, HEPARIN, NITROSTAT, MANNITOL, RENVELA, PROTONIX, PRODMATINE HISTORY: 78 YEAR OLD WITH CHEST PAIN, HISTORY OF ATRIAL FIBRILLATION AND CORONARY ARTERY DISEASE. PHYSICIAL EXAMINATION: RESTING B.P.: 113/51 RESTING H.R.: 61 RESTING EKG: PACED RHYTHM PROTOCOL: LEXISCAN EXERCISE TIME: 3:30 B.P. AT PEAK STRESS: 119/54 IMPRESSION: LEXISCAN STRESS TEST PERFORMED. CARDIOLITE INJECTED PER PROTOCOL. OCCASIONAL TO FREQUENT PREMATURE VENTRICULAR COMPLEXES. NO SUPRA VENTRICULAR TACHYCARDIA, NO VENTRICULAR TACHYCARDIA, DENIES CHEST PAIN, PATIENT TOLERATED WELL. SEE NUCLEAR MEDICINE REPORT.
--- NOTE | 2018-12-03 00:46 | PN ---
Date of Progress Note: 12/02/2018 Subjective: Patient was seen this morning for followup. No new complaints or problems reported by h im. No chest pain overnight. Objective: Vital Signs: Reviewed. General: The patient was complaining of more shortness of breath this morning compared to yesterday morning. HEENT: Examination unremarkable. Lungs: Bilateral good equal air entry. Presence of scattered wheezing noted. Heart: Sounds normal. Abdomen: Soft, bowel sounds normal. No guarding, rigidity, tenderness, or distention. Extremities: No leg edema. Impression: 1.Angina. 2.Coronary artery disease. 3.End-stage renal disease, on hemodialysis. 4.Acute exacerbation of chronic obstructive pulmonary disease. 5.Anemia due to chronic kidney disease. Plan: We will go ahead and get an echocardiogram and a stress test done today. Continue oxygen nebu lizer treatment and steroid. I will see him tomorrow for followup. ODESSA/MODL Voice ID: [id number] Report ID: [id number]
[2018-12-03] MEDS: ALBUTEROL 2.5 MG/3 ML NEB SOL NEB SCH ×4 (01:35→19:31)
[2018-12-03] MEDS: IPRATROPIUM BROM 0.5MG/2.5ML NEB SCH ×4 (01:35→19:31)
[2018-12-03 03:36] LABS: HBsAG Nonreactive (Nonreactive)
[2018-12-03] MEDS: GUAIFENESIN/DM 5 ML UCUP PO PRN ×2 (07:05→14:03)
[2018-12-03] MEDS: CALCIUM CARBONATE CHEW 500MG TAB PO SCH ×3 (08:15→17:23)
[2018-12-03] MEDS: ASPIRIN 81 MG CHEWABLE TABLET PO SCH (08:16)
[2018-12-03] MEDS: FERROUS SULFATE 325 MG TAB PO SCH (08:16)
[2018-12-03] MEDS: VITAMIN D 1000 UNIT TAB PO SCH (08:16)
[2018-12-03] MEDS: PANTOPRAZOLE 40MG TABLET PO SCH ×2 (08:16→17:23)
[2018-12-03] MEDS: ZINC SULFATE 220 MG CAP PO SCH (08:16)
[2018-12-03] MEDS: CLOPIDOGREL 75 MG TABLET PO SCH (08:16)
[2018-12-03] MEDS: SEVELAMER CARBONATE 800 MG TABLET PO SCH ×3 (08:16→17:23)
[2018-12-03] MEDS: GABAPENTIN 100 MG CAP PO SCH ×3 (08:16→21:20)
[2018-12-03] MEDS: ALLOPURINOL 100 MG TAB PO SCH (08:16)
[2018-12-03] MEDS: HEPARIN 5000 UNIT/ML 1 ML VIAL SQ SCH ×2 (08:17→21:19)
[2018-12-03] MEDS: AMIODARONE HCL 200 MG TAB PO SCH (08:17)
[2018-12-03] MEDS: [UNRECOGNIZED DRUG - REMARK] IH SCH ×2 (08:32→21:00)
[2018-12-03] MEDS: METHYLPREDNISOLONE 40 MG INJ IV SCH ×2 (08:35→17:24)
[2018-12-03] MEDS: VITAMIN A 8000 UNIT PO SCH (09:00)
[2018-12-03] MEDS: CEFTRIAXONE/SWI 1gm 1 GM/10 ML SYR IV SCH ×2 (09:37→21:21)
--- NOTE | 2018-12-03 11:30 | P.PN ---
Subjective Date of Service: 12/03/18 Primary Care Provider: Dr Salazar Chief Complaint: SOB Subjective: No new changes Subjective pt With ESRd , Hx of CHF S/p AICD, recurrent COPD pt presented with SOB , devloped chest pain , stress test negative today no new complaints mild wheezes will set for dialysis today on inhalers and steroids Physical Examination - Vital Signs Temperature: 97.2 F Blood Pressure: 132/69 Pulse: 78 Respirations: 20 Pulse Ox (%): 100 - Physical Exam General: In no apparent distress, Oriented x3 HEENT: Atraumatic Neck: Supple, Without JVD or thyroid abnormality Respiratory: Normal air movement, Inspiratory wheezes Cardiovascular: Normal pulses, Regular rate/rhythm, No gallops, No rubs, No murmurs, Edema (edema +1, lower 3rd of leg ) Gastrointestinal: Normal bowel sounds, Soft and benign Assessment And Plan - Current Problems (Diagnosis) (1) COPD exacerbation Current Visit: No Status: Acute (2) ESRD on hemodialysis Onset Date: 06/04/15 Current Visit: No Status: Acute - Plan End-stage renal disease on CAROLE MWF from [facility] will Cont HD MWF renal dose meds HTN controlled required midodrine during HD COPD exacerbation Cont inhalers and steroids and Abx CHF with fluid overload edema improved will cont HD MWF
--- NOTE | 2018-12-03 22:05 | PN ---
Date of Progress Note: 12/03/2018 Subjective: Patient was seen this morning for followup. No new complaints, problems reported by the patient. He was sleeping, easily arousable, not in distress. Denies any chest pain overnight. Objective: Vital signs: Reviewed. HEENT: Unremarkable. Lungs: Bilateral scattered wheezing noted more today than yesterday. Heart: Sounds normal. Abdomen: Soft. Bowel sounds normal. No guarding, rigidity, tenderness, or distention. Extremities: No leg edema. Impression: 1.Acute exacerbation of chronic obstructive pulmonary disease. 2.End-stage renal disease, on hemodialysis. 3.Angina. 4.Coronary artery disease. 5.Anemia due to chronic kidney disease. Plan: Patient's echocardiogram done yesterday shows ejection fraction around 44%. Stress test was n egative for stress-induced ischemia. Patient will have dialysis today and we will plan to discharge him tomorrow once his pulmonary status improves. We will continue oxygen nebulizer treatment and IV antibiotics. Solu-Medrol will be given per order. ODESSA/MODL Voice ID: [id number] Report ID: [id number]
[2018-12-04] MEDS: METHYLPREDNISOLONE 40 MG INJ IV SCH ×2 (00:22→09:52)
[2018-12-04] MEDS: IPRATROPIUM BROM 0.5MG/2.5ML NEB SCH ×3 (01:50→15:13)
[2018-12-04] MEDS: ALBUTEROL 2.5 MG/3 ML NEB SOL NEB SCH ×3 (01:50→15:13)
[2018-12-04] MEDS: VITAMIN A 8000 UNIT PO SCH (09:00)
[2018-12-04] MEDS: [UNRECOGNIZED DRUG - REMARK] IH SCH (09:00)
[2018-12-04] MEDS: CEFTRIAXONE/SWI 1gm 1 GM/10 ML SYR IV SCH (09:49)
[2018-12-04] MEDS: GUAIFENESIN/DM 5 ML UCUP PO PRN (09:49)
[2018-12-04] MEDS: ALLOPURINOL 100 MG TAB PO SCH (09:50)
[2018-12-04] MEDS: AMIODARONE HCL 200 MG TAB PO SCH (09:50)
[2018-12-04] MEDS: CLOPIDOGREL 75 MG TABLET PO SCH (09:50)
[2018-12-04] MEDS: CALCIUM CARBONATE CHEW 500MG TAB PO SCH ×2 (09:50→11:57)
[2018-12-04] MEDS: VITAMIN D 1000 UNIT TAB PO SCH (09:50)
[2018-12-04] MEDS: ZINC SULFATE 220 MG CAP PO SCH (09:51)
[2018-12-04] MEDS: PANTOPRAZOLE 40MG TABLET PO SCH (09:51)
[2018-12-04] MEDS: FERROUS SULFATE 325 MG TAB PO SCH (09:51)
[2018-12-04] MEDS: SEVELAMER CARBONATE 800 MG TABLET PO SCH ×2 (09:51→11:57)
[2018-12-04] MEDS: ASPIRIN 81 MG CHEWABLE TABLET PO SCH (09:52)
[2018-12-04] MEDS: GABAPENTIN 100 MG CAP PO SCH ×2 (09:52→13:38)
[2018-12-04] MEDS: HEPARIN 5000 UNIT/ML 1 ML VIAL SQ SCH (09:52)
[2018-12-04 13:32] VITALS: BP 124/69; TEMP 97
--- NOTE | 2018-12-04 15:17 | P.PN ---
Subjective Date of Service: 12/04/18 Primary Care Provider: Dr Salazar Chief Complaint: SOB Subjective: Improving Subjective pt With ESRd , Hx of CHF S/p AICD, recurrent COPD pt presented with SOB , devloped chest pain , stress test negative today no new complaints Chest CTAB , pt is cleared for discharge from nephrology point of view Physical Examination - Vital Signs Temperature: 97 F Blood Pressure: 124/69 Pulse: 79 Respirations: 20 Pulse Ox (%): 99 - Physical Exam General: In no apparent distress, Oriented x3 HEENT: Atraumatic Neck: Supple, Other (tracheostomy ) Respiratory: Clear to auscultation bilaterally Cardiovascular: Regular rate/rhythm, Normal S1 S2 (b/l +1 edema in lower 1/3 of legs ), Edema Assessment And Plan - Current Problems (Diagnosis) (1) COPD exacerbation Current Visit: No Status: Acute (2) ESRD on hemodialysis Onset Date: 06/04/15 Current Visit: No Status: Acute - Plan End-stage renal disease on CAROLE MWF from [facility] will Cont HD MWF renal dose meds HTN controlled required midodrine during HD COPD exacerbation Cont inhalers and steroids and Abx CHF with fluid overload edema improved will cont HD MWF
--- NOTE | 2018-12-04 15:48 | DS ---
Date of Discharge: 12/04/2018 Disposition: Discharged to go home. Physical Examination: HEENT: Unremarkable. Lungs: Clear to auscultation. Heart: Sounds normal. Abdomen: Soft. Bowel sounds normal. No guarding, rigidity, tenderness, distention. Extremities: No leg edema. Discharge Medications And Instructions: 1.Continue all prior home medications except change prednisone, take 2 tablets daily for 1 week, the n 1 tablet daily to continue. 2.Cefuroxime . Hospital Course: A 78-year-old male patient who was admitted to the hospital with shortness of breat h problem. Please see dictated H and P for more information. After the patient was admitted to the hospital, he was treated for acute exacerbation of COPD with oxygen nebulizer treatment and IV steroi ds. His condition improved. Nephrology consultation was requested from primary care coordinator for dialysis elias pport, which was provided. We did end up losing IV access and he was given oral steroids and his whe ezing and shortness of breath had improved with IV steroids, got little worse and we had to put him b ack on IV steroid again once the IV access was re-established. He had episode of chest pain which wa s relieved with nitroglycerin and then subsequent day during dialysis he had another episode of chest pain, required 2-3 doses of nitroglycerin sublingual tablets. He has chest pain from time to time a t home but has not had it in last few months as reported. He has appointment to see his office professionals Dr. Carrasquillo, end of this month for his reports. Echocardiogram and stress test were ordered. Echocard iogram showed ejection fraction around 44% or so, moderate aortic stenosis. Stress test was negative for stress-induced ischemia. After the stress test was done, he has not had any further episode of chest pain. This morning when I saw him he was feeling fine, had no complaints today and his lungs a re clear to auscultation. He has some cough, but not coughing up any mucus. Overall, patient's cond ition has improved significantly. He is being discharged in stable condition. Laboratory Data: Labs done during this hospitalization: Initial sodium 138, potassium 4.7, chloride 101, bicarb 24, BUN 83, creatinine 10.60, glucose 162. Initial troponin 0.19, second troponin 0.42. Last troponin 0.41. His repeat chemistry on 11/30/2018, sodium 134, potassium 5.2, BUN 74, creatin ine 9.6, and initial white count was 12.3, hemoglobin 10.1 platelets 135. Repeat white count was 11. 5, hemoglobin 11.1, platelets 130. Final Diagnoses: 1.Acute exacerbation of chronic obstructive pulmonary disease. 2.Chronic systolic congestive heart failure. 3.End-stage renal disease, on hemodialysis. 4.Anemia, due to chronic kidney disease. 5.Coronary artery disease with angina. 6.Hyperkalemia. 7.Hyponatremia. 8.Sleep apnea. 9.Diabetes mellitus, type 2. 10.Allergic rhinitis. 11.Osteoarthritis, multiple sites. 12.Diverticulosis. 13.Gastroesophageal reflux disease. 14.Prostate cancer. 15.Cervical radiculopathy. ODESSA/MODL Voice ID: [id number] Report ID: [id number]
[2018-12-04 16:42] VITALS: O2SAT 99
== END 2018-12-04 16:02 | disposition home or self-care (01) | DRG 190 ==
LOC: ER 22:53 → ERHOLD 11-29 01:03 → 4TH 11-29 01:33 → OBSVTOIN 11-30 07:51 → INTOOBSV 11-30 07:51 → OBSVTOIN 11-30 11:29 → 2ND 12-03 17:48
PROVIDERS: ADMIT Internal Medicine; ATTEND Internal Medicine
PROC: 5A1D70Z Performance of Urinary Filtration, Intermittent, Less than 6 Hours Per Day (ICD-10-PCS; principal; 2018-11-30)
PROC: 5A1D70Z Performance of Urinary Filtration, Intermittent, Less than 6 Hours Per Day (ICD-10-PCS; 2018-11-30)
PROC: 5A1D70Z Performance of Urinary Filtration, Intermittent, Less than 6 Hours Per Day (ICD-10-PCS; 2018-11-30)
DX: J44.1 Chronic obstructive pulmonary disease with (acute) exacerbation (principal); N18.6 End stage renal disease; I13.2 Hypertensive heart and chronic kidney disease with heart failure and with stage 5 chronic kidney disease, or end stage renal disease; I50.22 Chronic systolic (congestive) heart failure; E87.1 Hypo-osmolality and hyponatremia; I35.0 Nonrheumatic aortic (valve) stenosis; E11.22 Type 2 diabetes mellitus with diabetic chronic kidney disease; Z99.2 Dependence on renal dialysis; I25.119 Atherosclerotic heart disease of native coronary artery with unspecified angina pectoris; D63.1 Anemia in chronic kidney disease; E87.5 Hyperkalemia; G47.30 Sleep apnea, unspecified; J30.9 Allergic rhinitis, unspecified; M19.90 Unspecified osteoarthritis, unspecified site; K57.90 Diverticulosis of intestine, part unspecified, without perforation or abscess without bleeding; K21.9 Gastro-esophageal reflux disease without esophagitis; Z85.46 Personal history of malignant neoplasm of prostate; M54.12 Radiculopathy, cervical region; Z95.810 Presence of automatic (implantable) cardiac defibrillator; Z93.0 Tracheostomy status; Z91.013 Allergy to seafood
CPT/HCPCS: 36415; 71045; 78452; 80048; 80053; 82962; 83880; 84484; 85025; 86317; 86704; 86706; 87340; 90935; 93005; 93017; 93306; 94640; 94760; 99285; A9500; G0378; J0696; J1644; J2785; J2920; J7512

== ENCOUNTER 2018-12-05 21:32 | Inpatient (IN) | payer OTHER, MEDICARE ==
--- OUTSIDE RECORDS SUMMARY | 2018-12-05 21:36 | XMS REPORT | Clinical Summary ---
:[address] [facility] Address [address] [place] [address] Care Team Providers Name Role Phone Anmol [...] Overview: Added automatically from request for surgery [id number] Coronary artery disease involving cahuilla coronary artery of cahuilla heart 07/22 without angina pectoris Overview: Added automatically from request for surgery [id number] Chest pain 07/22/2017 Overview: Added automatically from request for surgery [id number] Angina pectoris 07/21/2017 Coronary artery disease of cahuilla artery of cahuilla heart with stable 2017 angina pectoris Automatic implantable cardioverter-defibrillator in situ 03/10/2017 PAD (peripheral artery disease) 08/05/2016 Cardiomyopathy 08/05/2016 Systolic congestive heart failure 08/05/2016 Encounters Date Type Specialty Care Team Description 09/09/2018 Orders Only Cardiology Justin Ojeda MA 04/27/2018 Office Visit Cardiology Ad Quintero MD Chest pain, unspecified type (Primary Dx); Cardiomyopathy, unspecified type (HCC) after 12/04/2017 Family History Relation Name Status Comments Father [...] Comments Blood Pressure 108/53 04/27/2018 11:28 AM WATERWORKS SUPERVISOR Pulse 94 04/27/2018 11:28 AM WATERWORKS SUPERVISOR Temperature - - Respiratory Rate - - Oxygen Saturation - - Inhaled Oxygen Concentration - - Weight 138 kg (305 lb) 04/27/2018 11:28 AM WATERWORKS SUPERVISOR Height 180.3 cm (5' 11") 04/27/2018 11:28 AM WATERWORKS SUPERVISOR Body Mass Index 42.54 04/27/2018 11:28 AM WATERWORKS SUPERVISOR Plan of Treatment Date Type Specialty Care Team Description 12/07/2018 Office Visit Cardiology Ad Quintero MD [address] [facility] [address] [place] [id number] Health Maintenance Due Date Last Done Comments SHINGLES VACCINES (#1) 1989 65+ PNEUMOCOCCAL VACCINE (1 of 2 - PCV13) 01/17/2004 INFLUENZA VACCINE 11/11/2018 Implants Implanted Type Area Clinical Associate Device Shelf Model / Identifier Expiration Serial / Date Lot Device Vasclr Clsr Vasoactive Intstnl Peptd 8fr Angio-Seal - [id number] Cardiovascular N/A: 06/10/2017 [id number] / Implanted: 08/07/2016 at [facility] (Quantity not on file) Implants N/A / [id number] Stent Bili Protege Everflex Slf-Xpndbl 120cm [id number] - [id number] Coronary Stents N/A: [employer] 05/03/2017 [id number] 120 / Implanted: 08/07/2016 at [facility] (Quantity not on file) N/A / [id number] Procedures Procedure Name Priority Date/Time Associated Comments Diagnosis ECHOCARDIOGRAM 2D Routine 05/03/2018 5:01 Cardiomyopathy, Results for this COMPLETE W MMODE PM WATERWORKS SUPERVISOR unspecified type procedure are in SPECTRAL COLOR DOPPLER (HCC) the results (54536) Chest pain, section. unspecified type ECG 12-LEAD Routine 04/27/2018 11:33 Cardiomyopathy, Results for this AM WATERWORKS SUPERVISOR unspecified type procedure are in (HCC) the results section. after 12/04/2017 Results Echocardiogram complete w contrast and 3D if needed (05/03/2018 5:01 PM WATERWORKS SUPERVISOR) Specimen Narrative Performed At [facility] Echocardiography Report Pat.Name:DILLON GARIBAY Pat.ID:[id number] St.Date: 05/03/2018 Refer.MD:AD QUINTERO MD Exam Time: 3:40:00 PMStudy Type:Routine Echo Height:71inWeight: 305lb BSA: 2.53 m2 DOBAge:1940,78Y Sex: MALEBP:108/53 HR:70 bpm Sonogrphr: EZRA Costello FASE Pat. Stat.:OutpatientRoom:[place] Study Status:Final Echo Event ID:[id number] Order ID:[id number] Reason for Study:Cardiomyopathy with no status change [...] RAPof 5 mmHg. MEASUREMENTS: 2D Parasternal Long [place] LVOT 2.2 cmLA Ds4.9 cm LVIDd6 cmIndex2.4 cm/m Ao An1.9 cm LVIDs5.1 cmAo Rtd 3.4 cm Index1.4 cm/m LV%fs 13.9 % LV Cxxu622.8 g(122-174) IVSd 1.3 cmLVM Zatxc895.4 g/m2 LVPWd1.3 cmRWT0.5 LA Sng Plane LA [...] Radiology Results In - 05/04/2018 2:44 PM WATERWORKS SUPERVISOR [facility] Echocardiography Report Pat.Name: DILLON GARIBAY Pat.ID: [id number] .Date: 05/03/2018 Refer.MD: AD QUINTERO MD Exam Time: 3:40:00 PM Study Type:Routine Echo Height: 71in Weight: 305lb BSA: 2.53 m2 Age: 1001/16/1940,78Y Sex: MALE BP: 108/53 HR: 70 bpm Sonogrphr: EZRA Costello FASE Pat. Stat.:Outpatient Room: [place] Study Status:Final Echo Event ID:[id number] Order ID: [id number] Reason for Study:Cardiomyopathy with no status change [...] of 5 mmHg. MEASUREMENTS: 2D Parasternal Long [place] LVOT 2.2 cm LA Ds 4.9 cm [...] PM Ayo Polk M.D. Performing Organization Address [facility] Phone Number [facility] [address] [place] [address] ECG 12 lead (04/27/2018 11:33 AM WATERWORKS SUPERVISOR) Ventricular rate 87 [facility] MUSE Atrial rate 87 [facility] MUSE WI interval 164 HM MUSE QRSD interval 154 [facility] QT interval 444 [facility] M[facility] QTC interval 534 [facility] MUSE P axis 1 60 [facility] MUSE QRS axis 1 -16 HM MUSE T wave axis -73 [facility] MUSE EKG impression Atrial-sensed [facility] MUSE ventricular-paced rhythm-Abnormal ECG-In automated comparison with ECG of 21-JUL-2017 09:06,-Electronic ventricular pacemaker has replaced Sinus rhythm- Specimen Narrative Performed At Performing Organization Address City/[facility] Phone Number [facility] MUSE [address] [place] [address] after 12/04/2017 Insurance Payer Benefit Plan / Subscriber ID Effective Dates Phone Address Type Group MEDICARE MEDICARE PART A xxxxxxxxxx 2004-[place], [place] Medicare AND B t AARP AARP SUPPLEMENT xxxxxxxxxxx 2008-Present Commercial Advance Directives For more information, please contact: [phone] Type Date Recorded Patient Financial Reporting Director Explanation Advance Directives, Living Will 08/07/2016 7:57 AM and Medical Power of Physical Damage Appraiser
--- OUTSIDE RECORDS SUMMARY | 2018-12-05 21:36 | XMS REPORT ---
:1940 [facility] [address] [place] [address] Dr. Vargas [address] [place] [id number] Care Team Providers Name Role Phone Unavailable Unavailable Unavailable Problems This patient has no known problems. Allergies, Adverse Reactions, Alerts This patient has no known allergies or adverse reactions. Medications This patient has no known medications.
[2018-12-05 23:51] LABS: Blood Gas Oxyhemoglobin 97.3 % (94-97); Blood O2 Saturation 99.2 % (92-98.5)
[2018-12-05] MEDS ORDERED: IPRATROPIUM BROM 0.5MG/2.5ML ONE (23:52)
[2018-12-05] MEDS ORDERED: METHYLPREDNISOLONE 125 MG INJ ONE (23:52)
[2018-12-05] MEDS ORDERED: ALBUTEROL 2.5 MG/3 ML NEB SOL ONE (23:52)
[2018-12-06 00:12] LABS: Absolute Lymphocytes (CBC) 1.1 K/uL (0.7-4.9); Basophils % 0.4 % (0-1.3); Lymphocytes % 10.5 % (15.3-44.8); MPV 10.8 fL (7.6-11.3); RBC Red Blood Cell Count 3.21 M/uL (4.33-5.43)
[2018-12-06 00:13] LABS: Protime INR 0.93
[2018-12-06 00:51] LABS: Albumin 3.7 g/dL (3.4-5.0); Bilirubin Direct 0.1 mg/dL (0-0.2); Bilirubin Total 0.4 mg/dL (0.2-1.0); Magnesium 2.7 mg/dL (1.8-2.4); Protein, Total 6.7 g/dL (6.4-8.2); Troponin (Emerg Dept Use Only) 0.29 ng/mL (0.0-0.045)
[2018-12-06 00:54] LABS: Potassium 6.3 mmol/L (3.5-5.1)
[2018-12-06] MEDS ORDERED: SODIUM BICARB 50 MEQ/50ML VIAL ONE (01:19)
[2018-12-06] MEDS ORDERED: D50W 25 GM/50 ML SYRINGE IV ONE (01:20)
[2018-12-06] MEDS ORDERED: Caclcium Chloride 10% INJ SYR IV ONE (01:20)
[2018-12-06] MEDS ORDERED: INSULIN -REGULAR HUMAN 50 UNIT/0.5 ML ML ONE (01:22)
[2018-12-06 02:41] LABS: Troponin I 0.27 ng/mL (0.0-0.045)
[2018-12-06 02:42] LABS: Potassium 6.1 mmol/L (3.5-5.1)
[2018-12-06] MEDS ORDERED: ALBUTEROL 2.5 MG/3 ML NEB SOL ONE (06:03)
[2018-12-06] MEDS ORDERED: IPRATROPIUM BROM 0.5MG/2.5ML ONE (06:03)
--- NOTE | 2018-12-06 06:37 | ER ---
Nurse's Notes [facility] Name: Sergio Perez Age: 78 yrs Sex: Male : 1940 Arrival Date: 12/05/2018 Time: 21:35 Bed 18 Private MD: Diagnosis: Acute dyspnea. COPD exacerbation. Hyperkalemia. Chronic renal disease Presentation: 12/05 21:36 Presenting complaint: EMS states: Pt was discharged from the hospital yesterday for tr5 difficulty breathing. Pt is still experiencing difficulty breathing along with increased sputum production. Transition of care: patient was not received from another setting of care. Onset of symptoms was December 05, 2018. Risk Assessment: Do you want to hurt yourself or someone else? Patient reports no desire to harm self or others. Initial Sepsis Screen: Does the patient meet any 2 criteria? RR > 20 per min. No. Patient's initial sepsis screen is negative. Does the patient have a suspected source of infection? No. Patient's initial sepsis screen is negative. Care prior to arrival: Glucose check: 174. 21:36 Method Of Arrival: EMS: [facility] tr5 21:36 Acuity: KARLENE 3 tr5 Historical: - Allergies: 21:45 Cipro; tr5 21:45 Demerol; tr5 21:45 Iodine; tr5 21:45 SHELLFISH; tr5 - Home Meds: 21:45 albuterol sulfate 2.5 mg /3 mL (0.083 %) Inhl nebu 1 vial daily [Active]; allopurinol tr5 200 mg Oral 2 tabs daily [Active]; amiodarone 200 mg Oral tab 0.5 tab daily [Active]; aspirin 81 mg Oral chew 1 tab twice daily [Active]; clopidogrel 75 mg Oral tab 1 tab once daily [Active]; Ferrous Sulfate 65 mg Oral 1x daily [Active]; fluticasone 50 mcg/actuation nasal spsn 1 spray 2 times per day [Active]; gabapentin Oral 1 tab 3 times per day [Active]; indura 800 mg 2 tabs before each meal TID [Active]; ipratropium bromide 0.02 % inhalation soln 2.5 mL 4 times per day [Active]; nitroglycerin 0.4 mg Oral as needed [Active]; omeprazole 20 mg Oral chew twice a day [Active]; Tums Oral 2 tabs per meal [Active]; vitamin A 8,000 unit Oral cap 1 cap once daily [Active]; vitamin d1 tablet 2000 IU daily [Active]; zinc sulfate 220 (50) mg Oral cap daily [Active]; - PMHx: 21:45 CHF; COPD; Diabetes - NIDDM; Dialysis; M-W-F; ESRD; GERD; Gout; Hypertension; tr5 Pacemaker; with defib; - Immunization history:: Adult Immunizations up to date. - Social history:: Smoking status: unknown. - Ebola Screening: : No symptoms or risks identified at this time. Screenin:47 Abuse screen: Denies threats or abuse. Nutritional screening: No deficits noted. tr5 Tuberculosis screening: No symptoms or risk factors identified. Fall Risk None identified. Assessment: 21:47 General: Appears uncomfortable, obese, Behavior is cooperative. Pain: Denies pain. tr5 Neuro: Level of Consciousness is awake, alert, Oriented to person, place, Seat Maker are equal bilaterally Moves all extremities. Cardiovascular: Heart tones present Capillary refill < 3 seconds Pulses are all present. Edema is absent. Rhythm is regular. Respiratory: Airway via trache Respiratory effort is even, labored, Breath sounds with crackles bilaterally. GI: No signs and/or symptoms were reported involving the gastrointestinal system. : No signs and/or symptoms were reported regarding the genitourinary system. EENT: No signs and/or symptoms were reported regarding the EENT system. Derm: Skin is intact. Musculoskeletal: Capillary refill < 3 seconds. 23:00 Reassessment: Patient appears in no apparent distress at this time. Patient and/or tr5 family updated on plan of care and expected duration. Pain level reassessed. Patient is alert, oriented x 3, equal unlabored respirations, skin warm/dry/pink. Awaiting initial assessment from provider. MD aware. 12/06 00:09 Reassessment: Patient appears in no apparent distress at this time. Pt appears to be tr5 sleeping in bed. 00:57 Reassessment: Alert Value of Potassium 6.[address] Lanza notified. 01:49 Reassessment: Patient appears in no apparent distress at this time. No changes from previously documented assessment. Patient and/or family updated on plan of care and expected duration. Pain level reassessed. Patient is alert, oriented x 3, equal unlabored respirations, skin warm/dry/pink. Patient denies pain at this time. 02:40 Reassessment: Patient appears in no apparent distress at this time. No changes from previously documented assessment. Patient and/or family updated on plan of care and expected duration. Pain level reassessed. Patient is alert, oriented x 3, equal unlabored respirations, skin warm/dry/pink. Oxygen was lowered to 3LPM via trach mask, Pt O2 sats \T\ 98% Patient denies pain at this time. Patient states feeling better. 03:37 Reassessment: Patient appears in no apparent distress at this time. No changes from previously documented assessment. Patient and/or family updated on plan of care and expected duration. Pain level reassessed. Patient is alert, oriented x 3, equal unlabored respirations, skin warm/dry/pink. Patient denies pain at this time. Patient states feeling better. 04:48 Reassessment: Patient appears in no apparent distress at this time. No changes from previously documented assessment. Patient and/or family updated on plan of care and expected duration. Pain level reassessed. Patient is alert, oriented x 3, equal unlabored respirations, skin warm/dry/pink. Pt sleeping well no signs of distress noted Patient denies pain at this time. Patient states feeling better. 05:52 Reassessment: Patient appears in no apparent distress at this time. No changes from previously documented assessment. Patient and/or family updated on plan of care and expected duration. Pain level reassessed. Patient is alert, oriented x 3, equal unlabored respirations, skin warm/dry/pink. Tracheal suctioning done PRN Patient denies pain at this time. Patient states feeling better. 07:00 Reassessment: Dr. Salazar at bedside. jl7 07:04 Reassessment: Patient appears in no apparent distress at this time. No changes from previously documented assessment. Patient and/or family updated on plan of care and expected duration. Pain level reassessed. Patient is alert, oriented x 3, equal unlabored respirations, skin warm/dry/pink. Patient denies pain at this time. Patient states feeling better. Vital Signs: 12/05 21:46 BP 118 / 55; Pulse 88; Resp 16; Temp 98.2(TE); Pulse Ox 100% on 10% Nebulizer Mask; tr5 23:00 BP 119 / 73; Pulse 77; Resp 15; Pulse Ox 100% on 10% Nebulizer Mask; tr5 12/06 00:09 BP 131 / 68; Pulse 87; Resp 17; Pulse Ox 100% on Nebulizer Mask; tr5 01:49 BP 102 / 59; Pulse 77; Resp 18; Pulse Ox 100% on 10% Nebulizer Mask; 03:38 BP 104 / 51; Pulse 81; Resp 18; Pulse Ox 98% on 3% Nebulizer Mask; 04:49 BP 115 / 77; Pulse 78; Resp 18; Pulse Ox 98% 3 lpm ; 05:52 BP 143 / 94; Pulse 77; Resp 17; Pulse Ox 100% 3 lpm ; 07:05 BP 149 / 87; Pulse 78; Resp 18; Pulse Ox 98% 3 lpm ; 01:49 nebulizer mask ED Course: 12/05 11:30 Missed attempt(s): 22 gauge in right forearm. tr5 21:35 Patient arrived in ED. tr5 21:40 Triage completed. tr5 21:46 Arm band placed on. tr5 22:14 Norman Eugene is Primary Nurse. 22:53 Luis Tan, SHAI is Primary Nurse. tr5 23:13 Awais Lanza MD is Attending Physician. pkl 12/06 00:00 Inserted saline lock: 24 gauge in right forearm, using aseptic technique. Blood jp3 collected. 00:00 Initial lab(s) drawn, by me, sent to lab. jp3 00:05 Bed in low position. Call light in reach. Side rails up X 1. Side rails up X2. Verbal jp3 reassurance given. space and missile defense operations on. Pulse ox on. NIBP on. 00:43 XRAY Chest (1 view) In Process Unspecified. EDMS 06:34 Anmol Salazar MD is Hospitalizing Provider. pkl 07:35 Diet tray given. jl7 07:44 No provider procedures requiring assistance completed. Patient admitted, IV remains in jl7 place. intact, No redness/swelling at site. Administered Medications: 00:03 Drug: SOLU-Medrol 125 mg Route: IVP; Site: right antecubital; tr5 01:34 Follow up: Response: No adverse reaction tr5 00:03 Drug: Albuterol - atroVENT (3:1) (2.5 mg - 0.5 mg) 3 ml Route: Nebulizer; tr5 01:34 Follow up: Response: No adverse reaction tr5 01:31 Drug: D50W 50 ml Route: IVP; Site: right antecubital; tr5 05:08 Follow up: Response: No adverse reaction 01:32 Drug: Sodium Bicarbonate 1 amp Route: IVP; Site: right antecubital; tr5 05:08 Follow up: Response: No adverse reaction 01:32 Drug: Calcium Chloride 1 grams Route: IVP; Site: right antecubital; tr5 05:08 Follow up: Response: No adverse reaction 01:33 Drug: Insulin Regular Human 10 units {Co-Signature: (Norman Eugene).} Route: IVP; tr5 Site: right antecubital; 05:08 Follow up: Response: No adverse reaction 06:16 Drug: Albuterol - atroVENT (3:1) (2.5 mg - 0.5 mg) 3 ml Route: Nebulizer; Outcome: 06:36 Decision to Hospitalize by Provider. pkl 07:44 Admitted to Tele accompanied by tech, via wheelchair, room 216, with oxygen, with jlRhina chart, Report called to SHAI Bedolla 07:44 Condition: stable 07:44 Discharge instructions given to patient, Instructed on the need for admit, Demonstrated understanding of instructions. 07:54 Patient left the ED. jl7 Signatures: Dispatcher [employer] EDAwais Pugh MD MD pkl Leal, Jahala, RN RN jl7 [facility] Giuseppe Mehta jp3 Luis Tan RN RN tr5 Norman Eugene Corrections: (The following items were deleted from the chart) 12/05 23:18 21:46 BP 118 / 55; Pulse 88bpm; Resp 16bpm; Pulse Ox 100% RA; tr5 [facility] 12/06 01:37 12/05 21:46 BP 118 / 55; Pulse 88bpm; Resp 16bpm; Pulse Ox 100% RA; Temp 98.2F tr5 Temporal; [facility] 12/06 01:37 12/05 23:00 BP 119 / 73; Pulse 77bpm; Resp 15bpm; Pulse Ox 100% RA; tr5 [facility] 12/06 01:37 00:09 BP 131 / 68; Pulse 87bpm; Resp 17bpm; Pulse Ox 100%; [place] [id number] 01:56 01:49 BP 102 / 59; Pulse 77bpm; Resp 18bpm; Pulse Ox 100% 5 lpm; [facility] 02:02 01:49 BP 102 / 59; Pulse 77bpm; Resp 18bpm; Pulse Ox 100% 02 5%; [facility]
--- NOTE | 2018-12-06 06:38 | EDPHYS ---
Physician Documentation [facility] Name: Sergio Perez Age: 78 yrs Sex: Male : 1940 Arrival Date: 12/05/2018 Time: 21:35 Bed 18 Private MD: ED Physician Awais Lanza HPI: 12/05 23:33 This 78 yrs old Black Male presents to ER via EMS with complaints of Breathing pkl Difficulty. 23:33 The patient has shortness of breath at rest. Onset: The symptoms/episode began/occurred pkl today. The patient has experienced similar episodes in the past, multiple times. The patient has been recently been admitted at [facility], was discharged yesterday, for similar complaints. Historical: - Allergies: 21:45 Cipro; tr5 21:45 Demerol; tr5 21:45 Iodine; tr5 21:45 SHELLFISH; tr5 - Home Meds: 21:45 albuterol sulfate 2.5 mg /3 mL (0.083 %) Inhl nebu 1 vial daily [Active]; allopurinol tr5 200 mg Oral 2 tabs daily [Active]; amiodarone 200 mg Oral tab 0.5 tab daily [Active]; aspirin 81 mg Oral chew 1 tab twice daily [Active]; clopidogrel 75 mg Oral tab 1 tab once daily [Active]; Ferrous Sulfate 65 mg Oral 1x daily [Active]; fluticasone 50 mcg/actuation nasal spsn 1 spray 2 times per day [Active]; gabapentin Oral 1 tab 3 times per day [Active]; indura 800 mg 2 tabs before each meal TID [Active]; ipratropium bromide 0.02 % inhalation soln 2.5 mL 4 times per day [Active]; nitroglycerin 0.4 mg Oral as needed [Active]; omeprazole 20 mg Oral chew twice a day [Active]; Tums Oral 2 tabs per meal [Active]; vitamin A 8,000 unit Oral cap 1 cap once daily [Active]; vitamin d1 tablet 2000 IU daily [Active]; zinc sulfate 220 (50) mg Oral cap daily [Active]; - PMHx: 21:45 CHF; COPD; Diabetes - NIDDM; Dialysis; M-W-F; ESRD; GERD; Gout; Hypertension; tr5 Pacemaker; with defib; - Immunization history:: Adult Immunizations up to date. - Social history:: Smoking status: unknown. - Ebola Screening: : No symptoms or risks identified at this time. ROS: 23:33 Eyes: Negative for injury, pain, redness, and discharge, ENT: Negative for injury, pkl pain, and discharge, Neck: Negative for injury, pain, and swelling, Cardiovascular: Negative for chest pain, palpitations, and edema. 23:33 Respiratory: Positive for cough, shortness of breath, wheezing. 23:33 Abdomen/GI: Negative for abdominal pain, nausea, vomiting, and diarrhea. 23:33 Back: Negative for acute changes. 23:33 : Negative for urinary symptoms. 23:33 MS/extremity: Negative for acute changes. 23:33 Skin: Negative for rash. 23:33 Neuro: Negative for altered mental status, loss of consciousness. Exam: 23:33 Head/Face: Normocephalic, atraumatic. Eyes: Pupils equal round and reactive to light, pkl extra-ocular motions intact. Lids and lashes normal. Conjunctiva and sclera are non-icteric and not injected. Cornea within normal limits. Periorbital areas with no swelling, redness, or edema. ENT: Nares patent. No nasal discharge, no septal abnormalities noted. Tympanic membranes are normal and external auditory canals are clear. Oropharynx with no redness, swelling, or masses, exudates, or evidence of obstruction, uvula midline. Mucous membranes moist. Neck: Trachea midline, no thyromegaly or masses palpated, and no cervical lymphadenopathy. Supple, full range of motion without nuchal rigidity, or vertebral point tenderness. No Meningismus. Chest/axilla: Normal chest wall appearance and motion. Nontender with no deformity. No lesions are appreciated. Cardiovascular: Regular rate and rhythm with a normal S1 and S2. No gallops, murmurs, or rubs. Normal PMI, no JVD. No pulse deficits. 23:33 Respiratory: mild respiratory distress is noted, Respirations: labored breathing, that is mild, Breath sounds: bronchial sounds, that are moderate, rhonchi, that are moderate, are scattered. 23:33 Abdomen/GI: Bowel sounds: normal. 23:33 Back: Exam negative for acute changes. 23:33 : Exam negative for acute changes. 23:33 Musculoskeletal/extremity: Exam is negative for acute changes. 23:33 Skin: Exam negative for rash. 23:33 Neuro: Orientation: is normal, Mentation: is normal, Cranial nerves: grossly normal, Motor: is normal. Vital Signs: 21:46 BP 118 / 55; Pulse 88; Resp 16; Temp 98.2(TE); Pulse Ox 100% on 10% Nebulizer Mask; tr5 23:00 BP 119 / 73; Pulse 77; Resp 15; Pulse Ox 100% on 10% Nebulizer Mask; tr5 12/06 00:09 BP 131 / 68; Pulse 87; Resp 17; Pulse Ox 100% on Nebulizer Mask; tr5 01:49 BP 102 / 59; Pulse 77; Resp 18; Pulse Ox 100% on 10% Nebulizer Mask; wh 03:38 BP 104 / 51; Pulse 81; Resp 18; Pulse Ox 98% on 3% Nebulizer Mask; wh 04:49 BP 115 / 77; Pulse 78; Resp 18; Pulse Ox 98% 3 lpm ; wh 05:52 BP 143 / 94; Pulse 77; Resp 17; Pulse Ox 100% 3 lpm ; wh 07:05 BP 149 / 87; Pulse 78; Resp 18; Pulse Ox 98% 3 lpm ; wh 01:49 nebulizer mask wh MDM: 12/05 23:13 Patient medically screened. pkl 12/06 06:33 Data reviewed: vital signs, nurses notes, lab test result(s), EKG, radiologic studies, pkl plain films. 12/05 23:32 Order name: Basic Metabolic Panel; Complete Time: 01:08 pkl 12/05 23:32 Order name: CBC with Diff pkl 12/05 23:32 Order name: LFT's; Complete Time: 01:08 pkl 12/05 23:32 Order name: Magnesium; Complete Time: 01:08 pkl 12/05 23:32 Order name: NT PRO-BNP; Complete Time: 01:08 pkl 12/05 23:32 Order name: PT-INR pkl 12/05 23:32 Order name: Troponin (emerg Dept Use Only); Complete Time: 01:08 pkl 12/05 23:32 Order name: ABG; Complete Time: 00:21 pkl 12/06 01:30 Order name: Chem 7; Complete Time: 02:50 tr5 12/06 01:30 Order name: Troponin I; Complete Time: 02:50 tr5 12/06 06:48 Order name: Basic Metabolic Panel EDMS 12/06 06:48 Order name: Basic Metabolic Panel EDMS 12/06 06:48 Order name: CBC with Automated Diff EDMS 12/06 06:48 Order name: CBC with Automated Diff EDMS 12/05 23:32 Order name: XRAY Chest (1 view) pkl 12/05 23:32 Order name: EKG; Complete Time: 23:34 pkl 12/05 23:32 Order name: Cardiac monitoring; Complete Time: 23:43 pkl 12/06 06:48 Order name: Renal EDMS 12/06 06:48 Order name: NT PRO-BNP EDMS 12/06 06:49 Order name: NT PRO-BNP EDMS 12/06 06:49 Order name: Troponin I EDMS 12/06 06:49 Order name: Troponin I EDMS 12/06 06:49 Order name: Troponin I EDMS 12/05 23:32 Order name: EKG - Nurse/Tech; Complete Time: 00:22 pkl 12/05 23:32 Order name: IV Saline Lock; Complete Time: 00:04 pkl 12/05 23:32 Order name: Labs collected and sent; Complete Time: 00:04 pkl 12/05 23:32 Order name: O2 Per Protocol; Complete Time: 23:43 pkl 12/05 23:32 Order name: O2 Sat Monitoring; Complete Time: 23:43 pkl Administered Medications: 00:03 Drug: SOLU-Medrol 125 mg Route: IVP; Site: right antecubital; tr5 01:34 Follow up: Response: No adverse reaction tr5 00:03 Drug: Albuterol - atroVENT (3:1) (2.5 mg - 0.5 mg) 3 ml Route: Nebulizer; tr5 01:34 Follow up: Response: No adverse reaction tr5 01:31 Drug: D50W 50 ml Route: IVP; Site: right antecubital; tr5 05:08 Follow up: Response: No adverse reaction 01:32 Drug: Sodium Bicarbonate 1 amp Route: IVP; Site: right antecubital; tr5 05:08 Follow up: Response: No adverse reaction 01:32 Drug: Calcium Chloride 1 grams Route: IVP; Site: right antecubital; tr5 05:08 Follow up: Response: No adverse reaction 01:33 Drug: Insulin Regular Human 10 units {Co-Signature: ([facility]).} Route: IVP; tr5 Site: right antecubital; 05:08 Follow up: Response: No adverse reaction 06:16 Drug: Albuterol - atroVENT (3:1) (2.5 mg - 0.5 mg) 3 ml Route: Nebulizer; Disposition: 06:33 Critical Care:. pkl Disposition: 12/06/18 06:36 Hospitalization ordered by Anmol Salazar for Inpatient Admission. Preliminary diagnosis is Acute dyspnea. COPD exacerbation. Hyperkalemia. Chronic renal disease. - Bed requested for Telemetry/MedSurg (Inpatient). - Status is Inpatient Admission. jl7 - Condition is Stable. - Problem is new. - Symptoms are unchanged. UTI on Admission? No Signatures: Dispatcher [employer] EDMS Marie Hammonds Pin, MD MD [facility] Ewelina Waite RN RN [address] Luis Tan RN RN [address] Corrections: (The following items were deleted from the chart) 07:17 06:36 Hospitalization Ordered by Anmol Salazar MD for Inpatient Admission. Preliminary bd diagnosis is Acute dyspnea. COPD exacerbation. Hyperkalemia. Chronic renal disease. Bed requested for Telemetry/MedSurg (Inpatient). Status is Inpatient Admission. Condition is Stable. Problem is new. Symptoms are unchanged. UTI on Admission? No. pkl 07:54 07:17 12/06/2018 06:36 Hospitalization Ordered by Anmol Salazar MD for Inpatient jl7 Admission. Preliminary diagnosis is Acute dyspnea. COPD exacerbation. Hyperkalemia. Chronic renal disease. Bed requested for Telemetry/MedSurg (Inpatient). Status is Inpatient Admission. Condition is Stable. Problem is new. Symptoms are unchanged. UTI on Admission? No. bd
[2018-12-06] MEDS ORDERED: ALBUTEROL 2.5 MG/3 ML NEB SOL NEB PRN (06:41)
[2018-12-06] MEDS ORDERED: IPRATROPIUM BROM 0.5MG/2.5ML NEB PRN (06:41)
--- NOTE | 2018-12-06 07:46 | EKG ---
Test Date: 2018-12-06 Test Time: 00:16:43 Embroidery Designer: TR MEASUREMENT RESULTS: Intervals: Rate: 94 SC: 160 QRSD: 156 QT: 432 QTc: 540 [place]: P: 88 SC: 160 QRS: 245 T: 112 INTERPRETIVE STATEMENTS: Atrial-sensed ventricular-paced rhythm tracking sinus rhythm Abnormal ECG Compared to ECG 11/30/2018 23:54:15 no significant change from previous ECG Electronically Signed On 12-06-18 07:45:39 CDT by Thomas Middleton
--- NOTE | 2018-12-06 08:22 | RAD REPORT ---
EXAM DESCRIPTION: RAD - Chest Single View - 12/06/2018 12:09 am CLINICAL HISTORY: COPD;Dyspnea Chest pain. COMPARISON: Chest Single View dated 11/28/2018; Chest Single View dated 10/21/2018; Chest Single View dated 09/13/2018; Chest Single View dated 09/12/2018 FINDINGS: Portable technique limits examination quality. Mild interstitial pulmonary edema. The heart is prominent in size with multilead pacer/defibrillator device present. Tracheostomy tube is in place. IMPRESSION: Mild CHF.
[2018-12-06] MEDS: ASPIRIN EC 81 MG TAB PO SCH (09:00)
[2018-12-06] MEDS: IPRATROPIUM BROM 0.5MG/2.5ML NEB SCH ×3 (10:18→20:00)
[2018-12-06] MEDS: ALBUTEROL 2.5 MG/3 ML NEB SOL NEB SCH ×3 (10:18→20:00)
[2018-12-06] MEDS: METHYLPREDNISOLONE 40 MG INJ IV SCH ×3 (10:37→17:18)
[2018-12-06] MEDS: HEPARIN 5000 UNIT/ML 1 ML VIAL SQ SCH ×2 (10:43→21:47)
[2018-12-06] MEDS ORDERED: ALPRAZOLAM 0.5 MG TABLET PO ONE (10:50)
[2018-12-06] MEDS: CEFTRIAXONE/SWI 1gm 1 GM/10 ML SYR IV SCH (10:53)
[2018-12-06] MEDS ORDERED: FUROSEMIDE 40 MG/4 ML VIAL IV ONE (10:55)
[2018-12-06] MEDS ORDERED: RSI MEDICATION KIT IV ONE (10:58)
[2018-12-06] MEDS: NITROGLYCERIN 1 GM PKT TD SCH ×2 (11:27→17:18)
[2018-12-06] MEDS: LORazepam 2 MG/ML VIAL IV PRN (11:54)
[2018-12-06] MEDS: PROPOFOL 1,000 MG/100 ML VIAL IV PRN ×3 (12:00→21:30)
[2018-12-06] MEDS ORDERED: FENTANYL CITR 100 MCG/2 ML IV PRN (12:04)
--- NOTE | 2018-12-06 12:04 | P.CNS ---
Date of Consult: 12/06/18 Reason for Consult: Respiratory failure Chief Complaint: Respiratory failure History of Present Illness: Patient is 78 years of age well known to me with recurrent hospital admissions for presume COPD exacerbation volume overload he is on dialysis currently was discharged yesterday can back in again today with respiratory distress he is currently on a ventilator his trach had to be changed patient was hyperkalemia case currently on dialysis Allergies iodine [Iodine] Allergy (Intermediate, Verified 04/13/18 02:39) Itching ciprofloxacin [From Cipro] Allergy (Verified 07/07/18 03:03) unknown meperidine [From Demerol] Allergy (Verified 07/07/18 03:03) unknown SHELLFISH Allergy (Uncoded 06/02/15 15:35) Unknown Home Medications: Albuterol Sulfate [Albuterol Sulfate 0.083% Neb Soln] 2.5 mg NEB DAILY 10/21/18 Allopurinol [Zyloprim*] 200 mg PO DAILY 10/21/18 Amiodarone HCl 100 mg PO DAILY 10/21/18 Aspirin [Samantha Chewable Aspirin] 81 mg PO DAILY 10/21/18 Calcium Carbonate [Tums Regular*] 1,000 mg PO AC 10/21/18 Clopidogrel Bisulfate [Plavix*] 75 mg PO DAILY 10/21/18 Ferrous Sulfate [Ferrous Sulfate*] 65 mg PO DAILY 10/21/18 Fluticasone Propionate [24 Hour Allergy] 1 spr IH BID 10/21/18 Gabapentin [Neurontin*] 100 mg PO TID 10/21/18 Nitroglycerin [Nitrostat*] 0.4 mg SL DAILYPRN PRN 10/21/18 Omeprazole 20 mg PO BID 10/21/18 Sevelamer Carbonate [Renvela*] 2 tab PO TID 10/21/18 Vitamin A 8,000 unit PO DAILY 10/21/18 Zinc 50 mg PO DAILY 10/21/18 Cholecalciferol (Vitamin D3) [Vitamin D 1000 Iu Tab*] 2,000 unit PO DAILY Ipratropium Neb [Atrovent*] 0.5 mg IH QID 11/29/18 predniSONE [Prednisone*] 20 mg PO DAILY 11/29/18 Cefuroxime [Ceftin*] 250 mg PO DAILY #7 tab 12/04/18 - Past Medical/Surgical History Diabetic: Yes -: Diabetes Mellitus -: COPD -: Hypertension -: PROSTATE CA -: ESRD -: DIALYSIS -: Diverticulitis -: dialysis: MWF -: anemia -: sleep apnea -: gout -: oa -: trach 06/2002 -: HD graft - L upper arm -: pacemaker - Family History Brother Medical History: Hypertension Mother Medical History: Heart disease, Hypertension Sister Medical History: Cancer Notes: breast cancer - Social History Smoking Status: Unknown if ever smoked Alcohol use: No CD- Drugs: No Caffeine use: Yes Review of Systems is unable to be obtained Physical Examination Temp Pulse Resp BP Pulse Ox 97.4 F 98 H 24 H 141/83 H 99 12/06/18 08:00 12/06/18 11:27 12/06/18 08:00 12/06/18 11:27 12/06/18 08:00 General: Unresponsive Respiratory: Clear to auscultation bilaterally, Diminished Cardiovascular: Regular rate/rhythm, Normal S1 S2, Edema (3+ edema) Gastrointestinal: Normal bowel sounds, Soft and benign, Non-distended Laboratory Data (last 24 hrs) 12/06/18 02:09: Sodium 144, Potassium 6.1 H*, BUN 117 H, Creatinine 11.50 H*, Glucose 169 H, Troponin I 0.27 H 12/06/18 00:00: PT 11.0, INR 0.93 12/06/18 00:00: WBC 10.4, Hgb 9.9 L, Hct 32.0 L, Plt Count 100 L D 12/06/18 00:00: Sodium 137, Potassium 6.3 H*, BUN 119 H D, Creatinine 12.10 H* D , Glucose 183 H, Magnesium 2.7 H, Total Bilirubin 0.4, AST 19, ALT 20, Alkaline Phosphatase 111 - Problems (1) Respiratory failure Current Visit: Yes Status: Acute Plan: Patient is 78 years of age admitted with respiratory distress he was just discharged is chest x-rays clear shows cardiomegaly has presume COPD patient has a trach patient has moderate aortic stenosis left ventricular hypertrophy patient is in renal failure hyperkalemia patient is on bronchodilators steroids I suspect his aortic stenosis may be the problem Consul cardiology labs showed mild respiratory acidosis mild hypercapnia Qualifiers: Chronicity: acute on chronic
[2018-12-06] MEDS: ALBUMIN HUMAN 25% 50 ML IV SCH ×2 (12:15→12:50)
--- NOTE | 2018-12-06 17:20 | CON ---
Age: 78-year-old man. Chief Complaint: Dyspnea, volume overload. History Of Present Illness: Mr. Perez is a gentleman whom we have a really difficult time controll ing fluids on. He is an end-stage renal disease patient, on hemodialysis. He goes to dialysis treat ments, but often they were unable to remove as much fluid as we think he needs and usually come back a day or 2 later, having gained several pounds, dyspneic, pulmonary edema. He has left ventricular d ysfunction. His ejection fraction now is in the 44%. He has moderate aortic stenosis, not severe. He would not qualify for an aortic valve replacement and even if it were to be done, it would probabl y make very little difference in his overall condition. He has a defibrillator and he has end-stage renal disease. No significant hepatic disease, probably has some amount of coronary heart disease. All of his troponins are exactly the same 0.29 over the last several hours. I think the patient's vo lume overload is really a matter of uremia, renal failure, heart failure. It appears really no inter vention that could be done to make this better with his heart. I do not think putting a stent in or putting a heart valve in would help Mr. Perez at all. BERENICE/PATRICK Voice ID: [id number] Report ID: [id number]
[2018-12-07] MEDS: METHYLPREDNISOLONE 40 MG INJ IV SCH ×3 (00:17→17:19)
[2018-12-07] MEDS: PROPOFOL 1,000 MG/100 ML VIAL IV PRN ×3 (00:39→09:03)
[2018-12-07] MEDS: ALBUTEROL 2.5 MG/3 ML NEB SOL NEB SCH ×4 (02:00→20:00)
[2018-12-07] MEDS: IPRATROPIUM BROM 0.5MG/2.5ML NEB SCH ×4 (02:00→20:00)
--- NOTE | 2018-12-07 03:51 | CON ---
Date of Consultation: 12/06/2018 Chief Complaint: End-stage renal disease, hyperkalemia, fluid overload, and respiratory failure. History Of Present Illness: Patient is a 78-year-old man with history of end- stage renal disease, on dialysis; history of COPD; and trach placement before. He has multiple admissions to the hospital for fluid overload and congestive heart failure exacerbation. He has history of systolic and diastolic dysfunction. He developed respiratory failure and is on vent. Today remains in ICU. He was found to have hyperkalemia and dialysis was started with emergent procedure to control potassium level and to obtain negative fluid balance. Patient has history of antibiotic hypotension. He is undergoing dialysis with ultrafiltration. Ultrafiltration is titrated due to borderline hypotension. Review of Systems: Patient is somewhat lethargic. He is on vent with trach and he cannot provide review of systems. Past Medical History: Diabetes mellitus; obesity; COPD; obstructive sleep apnea ; hypertension; prostate cancer; end-stage renal disease, on dialysis; diverticulitis; anemia due to chronic kidney disease; sleep apnea; gout; osteoarthritis; trach placement in 2002; status post pacemaker placement; dialysis access procedures. Family History: Brother, hypertension. Mother, heart disease and hypertension. Sister, cancer. Social History: Denies tobacco, alcohol, or illicit drugs. Physical Examination: General: Patient is lethargic, arousable. Eyes: Anicteric sclerae. EOMI. Ears, Nose, Mouth, and Throat: Oral mucosa moist. No pallor. Neck: Trach in place. Neck supple Lungs: Diminished breath sounds at bases. Coarse breath sounds bilaterally. Heart: S1, S2. No pericardial friction rub. Abdomen: Soft, obese, benign, nontender. No rebound, no guarding. Extremities: Edema in both legs. No oozing, Chronic dermatitis. Neurological: Moving extremities. Cranial nerves intact. Psychiatric: Patient is lethargic, cannot be evaluated, although arousable and follows few commands. Laboratory Data: Sodium 137, potassium 6.3, BUN 119, creatinine 12.1, glucose 183, magnesium 2.7, total bilirubin 0.4, AP 111. Impression And Plan: End-stage renal disease, fluid overload, congestive heart failure with diastolic dysfunction. Dialysis will be done daily to obtain negative fluid balance and control electrolytes. Patient developed hyperkalemia. He was treated with dialysis accordingly and plan is to monitor potassium level. Continue low-potassium intake. Currently, patient is intubated. He has trach and remains in ICU for respiratory failure and borderline hypotension. Patient may need a pressor for blood pressure support. Monitor blood pressure after dialysis. Patient can have IV albumin for blood pressure support. Patient will have evaluation with Cardiology. Patient has been seen by Pulmonary Service for respiratory failure with mild acidosis with hypercapnia. EB/MODL Voice ID: [id number] Report ID: [id number]
--- NOTE | 2018-12-07 04:21 | HP ---
Date of Admission: 12/06/2018 Chief Complaint: Cough, congestion, shortness of breath. History Of Present Illness: This is a 78-year-old male patient who has multiple comorbidities includ ing COPD and has required multiple hospital admissions pertaining to COPD exacerbation. His last [facility] admission was last week and he was discharged in stable condition on Thursday with instruction to take his prednisone as prescribed and oral antibiotic for 1 week. The patient reported that on , he felt fine, had no complaints, and as of yesterday evening, he started to have cough, congest ion, shortness of breath again, and he came into the ER late last night. After he was evaluated in [facility] ER, he was treated for COPD exacerbation and high potassium. I was contacted this morning for adm ission, and patient was admitted to the hospital. I saw him in the emergency room this morning. He was sitting in the chair, not in any distress while at rest. After the admission orders were written and soon after patient came to the floor, a few hours later, his respiratory status was worse compar ed to earlier this morning. He was having respiratory distress and nebulizer treatment, IV steroid, Lasix, and 1 inch of nitroglycerin paste was ordered. Subsequently, patient was transferred to ICU a nd was placed on ventilator through tracheostomy tube. Dr. Kwame Easley from Pulmonary has evalua deshawn after his arrival to ICU. When he arrived to ICU, nurse noted and reported that he did not have adequate amount of air exchange, and once he was on ventilator, he was very anxious, fighting ventila tor, and Dr. Easley sedated him using propofol. I did go back to the hospital this evening to [facility] on him. He was lying in bed in ICU on ventilator. Medications: List reviewed. Review of Systems: Respiratory: As mentioned above. All other systems reviewed and negative. Allergies: TO SHELLFISH, CIPRO, IODINE, AND DEMEROL. Social History: Negative for smoking and alcohol use. Family History: Significant for asthma, hypertension, breast cancer. Past Surgical History: AICD placement in June 2014, tracheostomy placement many years ago. Past Medical History: End-stage renal disease, on hemodialysis; COPD; chronic systolic congestive he art failure with low ejection fraction; anemia due to chronic kidney disease; sleep apnea; coronary a rtery disease; diabetes mellitus; allergic rhinitis; osteoarthritis at multiple sites; diverticulosis ; cervical spondylosis with radiculopathy; prostate cancer; gastroesophageal reflux disease. The patient had a stress test and echocardiogram done during last hospital admission which was last . Echocardiogram had shown ejection fraction around 40% with moderate aortic stenosis, and the st ress test was negative for any stress-induced ischemia. Physical Examination: Vital Signs: When he came into the emergency room this morning, blood pressure 118/55, pulse 88, res piratory rate 16, temperature 98.2, oxygen saturation 100% on facemask oxygen. HEENT: Head atraumatic, normocephalic. Conjunctivae nonerythematous. Sclerae white. Mouth, no thr ush or edema noted. Ears/Nose, no mass, lesion, discharge noted. Neck: Patient has presence of tracheostomy tube; no discharge, no bleeding. Lungs: Bilateral scattered wheezing in all the lung [place]. Not using accessory muscles of respirat ion. Heart: Normal heart sounds, no murmur or gallop. Abdomen: Soft, bowel sounds normal. No guarding, rigidity, tenderness, mass, hepatosplenomegaly, di stention, or bruit noted. Extremities: Trace leg edema. Skin: No rash, ulcer, cellulitis. Lymphatics: No lymph node enlargement in neck, supraclavicular, infraclavicular region. Neuro: No focal neurological deficit. Chest: Unremarkable. External Genitalia: Deferred. Rectal: Deferred. Laboratory Data: White count 10.4, hemoglobin 9.9, platelets 100. Blood gas; pH 7.32, pCO2 45.8, pO 2 178, oxygen saturation 99.2 on 50% FiO2. Initial sodium 137, potassium 6.3, chloride 98, bicarb 24 , BUN 119, creatinine 12.10, glucose 183. Liver function tests unremarkable. Troponin 0.[address] set, 2nd set 0.27. ProBNP 74033. Repeat sodium 144, potassium 6.1, chloride 101, bicarb 32, BUN 117, creatinine 11.5, serum glucose 169. Chest x-ray results reviewed. Impression: 1.Acute respiratory failure, with hypoxia. 2.Acute exacerbation of chronic obstructive pulmonary disease. 3.Chronic systolic congestive heart failure. 4.Aortic valve stenosis. 5.Hyperkalemia. 6.End-stage renal disease. 7.Anemia due to chronic kidney disease. 8.Coronary artery disease. 9.Sleep apnea. 10.Diabetes mellitus. 11.Allergic rhinitis. 12.Osteoarthritis, multiple sites. 13.Diverticulosis. 14.Cervical spondylosis with radiculopathy. 15.Prostate cancer. 16.Gastroesophageal reflux disease. Plan: Admit patient to hospital for further evaluation and management of this problem. The patient is appropriate for inpatient and is expected to spend 2 midnights in hospital. We will go ahead and give nebulizer treatment, initially it was ordered every 6 hours, but after the patient went into res piratory distress and respiratory failure, it was changed to every 4 hours. Continue IV steroid. I did give him 1 extra dose of 40 mg IV Solu-Medrol after he arrived to ICU. We will continue to traceeo w with Dr. Easley. Ceftriaxone was ordered and to be given 1 g daily, and heparin for DVT prophyla xis was ordered. Nephrology consultation was obtained for dialysis support. I will see him tomorrow for followup. ODESSA/MODL Voice ID: [id number]
[2018-12-07 05:01] LABS: Absolute Lymphocytes (CBC) 0.4 K/uL (0.7-4.9); Basophils % 0.1 % (0-1.3); Lymphocytes % 4.6 % (15.3-44.8); MPV 11.5 fL (7.6-11.3); RBC Red Blood Cell Count 2.88 M/uL (4.33-5.43)
[2018-12-07 05:05] LABS: Arterial Blood Carboxyhemoglob 1.7 % (0-1.5)
[2018-12-07 05:42] LABS: Blood Morphology Comment NOT SEEN (NOT SEEN); Platelet Estimate DECR
[2018-12-07] MEDS: NITROGLYCERIN 1 GM PKT TD SCH ×2 (06:07)
[2018-12-07 06:10] LABS: Potassium 6.3 mmol/L (3.5-5.1)
--- NOTE | 2018-12-07 07:17 | RAD REPORT ---
EXAM DESCRIPTION: RAD - Chest Single View - 12/07/2018 6:18 am CLINICAL HISTORY: Respiratory failure COMPARISON: December 06 TECHNIQUE: AP portable chest image was obtained 0613 hours . FINDINGS: Lung volumes are low and there is motion degradation present. Trach tube remains in place. Defibrillator overlies the right-side of the chest. No mass or consolidations seen. Lung base atelec tasis is present. Overall heart, vasculature and lung markings are accentuated by the shallow inspira tion. No progressive lung parenchymal process suspected. Heart size remains enlarged. No measurable p leural effusion and no pneumothorax. No acute bony abnormality seen. No acute aortic findings suspect ed. IMPRESSION: Exam is limited by shallow inspiration and motion. Cardiac silhouette is improved from prior imaging. No progressive lung parenchymal process suspected. Left base remains limited in assessment.
[2018-12-07] MEDS: LORazepam 2 MG/ML VIAL IV PRN ×2 (08:46→08:48)
[2018-12-07] MEDS: ASPIRIN EC 81 MG TAB PO SCH (09:00)
[2018-12-07] MEDS: CEFTRIAXONE/SWI 1gm 1 GM/10 ML SYR IV SCH (09:00)
[2018-12-07] MEDS: HEPARIN 5000 UNIT/ML 1 ML VIAL SQ SCH ×2 (09:01→21:44)
[2018-12-07] MEDS ORDERED: NA CHLORIDE 0.9% 1,000 ML IV PRN (09:10)
--- NOTE | 2018-12-07 11:28 | RAD REPORT ---
EXAM DESCRIPTION: RAD - Abdomen 1 View (KUB) - 12/07/2018 11:19 am CLINICAL HISTORY: Dobhoff placement Pain COMPARISON: No comparisons FINDINGS: The tip of the top off tube is in the duodenum C-loop region.
--- NOTE | 2018-12-07 12:14 | P.PN ---
Subjective Date of Service: 12/07/18 Chief Complaint: Respiratory failure Patient's condition is stable he still agitated requiring sedation tachypneic Review of Systems is unable to be obtained Physical Examination - Vital Signs Temperature: 97 F Blood Pressure: 109/59 Pulse: 71 Respirations: 15 Pulse Ox (%): 99 - Physical Exam General: Unresponsive (On propofol drip) HEENT: Normocephalic Respiratory: Clear to auscultation bilaterally, Diminished Cardiovascular: Edema (4+ edema) Assessment & Plan - Problems (Diagnosis) (1) Respiratory failure Current Visit: Yes Status: Acute Plan: Patient admitted with respiratory failure is chest x-rays clear shows cardiomegaly in renal failure undergoing dialysis 3+ gram-negative rods in the sputum of change him over to cefepime patient is high risk for Pseudomonas infection vital signs are stable continue with bronchodilators steroids trial of weaning him off from the ventilator seen by Cardiology not a candidate for aortic wall replacement continue with dialysis Qualifiers: Chronicity: acute on chronic
[2018-12-07] MEDS ORDERED: CEFEPIME/SWI 1gm 10 ML IV SCH (13:00)
--- NOTE | 2018-12-07 13:17 | PN ---
Date of Progress Note: 12/07/2018 Mr. Perez is 78. He is a patient of Dr. Salazar, came in with pulmonary edema. He has an ejection fr action of 44%. End stage renal disease, moderate aortic stenosis, coronary artery disease, has a def ibrillator. Medical therapy is continuing. He is in sinus rhythm. Dialysis is to be performed toda y. No changes in medical therapy at this point. NB/MODL Voice ID: [id number] Report ID: [id number]
--- NOTE | 2018-12-07 17:36 | PN ---
Date of Progress Note: 12/07/2018 Subjective: Patient was admitted with respiratory distress, developed rapid response yesterday. We had to move to ICU. Patient is status post dialysis yesterday, managed to remove 2400. Today, we managed to remove another 2 L, tolerated well. Objective: Vital Signs: Blood pressure 109/60, pulse of 88. General: Patient is still on vent. Chest: Faint crackles on the base. Heart: S1, S2. Regular. Abdomen: Soft, nontender. Extremities: Plus edema. Laboratory Data: WBC 9.3, H and H 8.8/28, platelet 76. Sodium 136, potassium 6.3, bicarb 24, BUN 92, creatinine 9.8, calcium 8.9. BNP 64,000. ABG; pH 7.38 , CO2 39, O2 78. Chest x-ray for the patient showing cardiomegaly with mild over volume. Assessment And Plan: 1. End-stage renal disease, over volume with hyperkalemia, status post daily dialysis. In the last 2 days, we managed to remove 4 L. We will dialyze the patient tomorrow again and we will follow up. 2. Hypertension, currently hypotension. We will utilize the blood pressure for more ultrafiltration. Keep using midodrine. We will use sodium module for the dialysis. 3. Hyperkalemia in spite of recurrent daily dialysis. We need to rule out other causes. I am going to go ahead and repeat CK, TSH, and do fecal occult and we will follow up. The patient being dialyzed on low-potassium bath today. We will follow up potassium. Tomorrow, we will repeat fecal occult and CK. 4. Respiratory failure secondary to over volume, chronic obstructive pulmonary disease exacerbation. Follow up with Pulmonary. 5. Chronic obstructive pulmonary disease exacerbation, as by Pulmonary. ROLANDO/PATRICK Voice ID: [id number] Report ID: [id number] ABEL
[2018-12-07] MEDS ORDERED: CEFEPIME 1 GM/VIAL IV SCH (21:00)
--- NOTE | 2018-12-08 00:42 | PN ---
Date of Progress Note: 12/07/2018 Subjective: Patient was seen this morning for followup. No new complaints or problems reported by [facility] staff. He was on ventilator, on propofol drip. Soon after I saw him this morning, patient st arted to get hemodialysis. Objective: Vital Signs: Reviewed. HEENT: Unremarkable. Lungs: Bilateral good equal air entry. No wheezing. No rales. Heart: Sounds normal. Abdomen: Soft. Bowel sounds normal. No guarding, rigidity, tenderness, or distention. Extremities: No leg edema. Laboratory Data: White count 9.3, hemoglobin 8.8, platelets 76. Yesterday platelet was 100. Sodium 136, potassium 6.3, chloride 97, bicarb 24, BUN 92, creatinine 9.87, glucose 253. Impression: 1.Acute respiratory failure. 2.Acute exacerbation of chronic obstructive pulmonary disease. 3.Anemia due to chronic kidney disease. 4.Aortic stenosis. 5.Thrombocytopenia. Plan: We will continue oxygen nebulizer treatment, steroid, IV antibiotics. Continue to follow up w arianna Easley and shop service technician. Nurse was advised this morning to contact the shop service technician with emanuel welch result, so that the shop service technician can make appropriate dialysis decision. I will see him carina orr for followup. ODESSA/MODL Voice ID: [id number] Report ID: [id number]
[2018-12-08] MEDS: METHYLPREDNISOLONE 40 MG INJ IV SCH (00:59)
[2018-12-08] MEDS: ALBUTEROL 2.5 MG/3 ML NEB SOL NEB SCH ×4 (02:00→20:00)
[2018-12-08] MEDS: IPRATROPIUM BROM 0.5MG/2.5ML NEB SCH ×4 (02:00→20:00)
[2018-12-08 05:00] LABS: Absolute Lymphocytes (CBC) 0.2 K/uL (0.7-4.9); Basophils % 0.1 % (0-1.3); Hematocrit 28.3 % (39.6-49.0); Lymphocytes % 1.6 % (15.3-44.8); MPV 11.5 fL (7.6-11.3); RBC Red Blood Cell Count 2.94 M/uL (4.33-5.43)
[2018-12-08 05:16] LABS: Albumin 3.4 g/dL (3.4-5.0); Phosphorus 6.7 mg/dL (2.5-4.9); Potassium 5.4 mmol/L (3.5-5.1); Thyroid Stimulating Hormone 0.512 uIU/mL (0.360-3.740)
[2018-12-08] MEDS: MIDODRINE HCL 5 MG TABLET PO PRN (07:00)
[2018-12-08] MEDS ORDERED: NA CHLORIDE 0.9% 1,000 ML ONE (07:58)
--- NOTE | 2018-12-08 08:36 | P.PN ---
Subjective Date of Service: 12/08/18 Chief Complaint: Respiratory failure Patient is doing well he was extubated is alert responsive cooperative Review of Systems Respiratory: Cough, Shortness of Breath Physical Examination - Vital Signs Temperature: 98.8 F Blood Pressure: 107/50 Pulse: 87 Respirations: 23 Pulse Ox (%): 94 - Physical Exam General: Alert, Oriented x3, Mild distress Respiratory: Expiratory wheezes Cardiovascular: Edema Assessment & Plan - Problems (Diagnosis) (1) Respiratory failure Current Visit: Yes Status: Acute Plan: Patient has improved significantly change to p.o. prednisone Pseudomonas isolated Dc cefepime patient is resistant change to IV levofloxacin patient is in renal failure undergoing dialysis continue with bronchodilators advance diet transfer to the floor I have also added dial arrest patient's trach was changed Qualifiers: Chronicity: acute on chronic
[2018-12-08] MEDS ORDERED: Levofloxacin500mg IV 100 ML IV SCH (09:00)
[2018-12-08] MEDS: HEPARIN 5000 UNIT/ML 1 ML VIAL SQ SCH ×2 (12:19→22:01)
[2018-12-08] MEDS: ASPIRIN EC 81 MG TAB PO SCH (12:19)
[2018-12-08] MEDS: predniSONE 20 MG TAB PO SCH ×2 (12:20→22:01)
[2018-12-08] MEDS: SEVELAMER CARBONATE 800 MG TABLET PO SCH ×2 (12:20→16:06)
[2018-12-08] MEDS: ROFLUMILAST 500 MCG TABLET PO SCH (12:20)
[2018-12-08] MEDS: Meropenem 500 MG in NA CHLORIDE 0.9% 100 ML IV SCH (12:23)
--- NOTE | 2018-12-08 12:29 | RAD REPORT ---
EXAM DESCRIPTION: CT - Abdomen Pelvis Wo Contrast - 12/08/2018 12:11 pm CLINICAL HISTORY: Abdominal pain COMPARISON: November 2017 TECHNIQUE: Computed axial tomography of the abdomen and pelvis was obtained. IV and oral contrast we re not requested. All CT scans are performed using dose optimization technique as appropriate and may include automated exposure control or mA/KV adjustment according to patient size. FINDINGS: The evaluation of solid organs, vessels and bowel is limited secondary to the lack of con trast administration. Minimal pleural effusions The liver, spleen, pancreas, and adrenals appear grossly normal. Bilateral renal cysts unchanged There is no evidence of diverticulitis. Tiny umbilical hernia Small hiatal hernia IMPRESSION: Minimal pleural effusions No acute abdominal abnormality seen
--- NOTE | 2018-12-08 14:17 | PN ---
Subjective: Patient seen on dialysis. The patient was admitted with overload, COPD exacerbation. The patient is receiving dialysis on a daily basis, today is third session. The patient persistently has hyperkalemia, today we are goaling to 3.6. Yesterday, we managed to remove 2 L. Physical Examination: Vital Signs: Blood pressure 132/50, pulse of 87. The patient on trach collar, being off vent. Chest: Crackles bilateral. Heart: S1, S2. Systolic murmur. Abdomen: Soft, nontender. Extremities: No ulcer. Has venous stasis plus edema. Laboratory Data: WBC 11.8, H and H 9/28.3, platelets of 77. Sodium 137, potassium 5.4, bicarb 26, BUN 69, creatinine 7.7, calcium 8.8, phosphorus 6.7. Current Medications: The patient on include. 1. Midodrine. 2. Albuterol. 3. Breathing treatment. 4. Prednisone 20 b.i.d. 5. Fentanyl. Assessment And Plan: 1. End-stage renal disease, over-volume with hyperkalemia. The patient is going to receive dialysis today, then we are going to switch him back to 3 times a week Thursday, Thursday, and Thursday. We will follow up. 2. Hypertension, currently hypotension. Keep using midodrine for supportive blood pressure. 3. Hypotension during the dialysis, using midodrine, sodium module and low temperature. 4. Over-volume. We will challenge the patient again to establish normal volume. We will follow up chest x-ray tomorrow. 5. Hyperkalemia, persistent in spite of dialyzing him on low potassium bath in a daily basis. The patient had angiogram with angioplasty for his AV fistula 1 month back as an outpatient. Our differential diagnosis is either GI loss as GI bleed, even though I doubt it as his H and H have been stable. TSH came within normal limit. His CK within normal limit also, so we left with recirculation secondary to full function AV fistula/we need to rule out any GI. Plan: 1. I am going to go ahead with CT abdomen and pelvis and we will follow up. We will repeat chemistry tomorrow. 2. The patient is going to be dialyzed again on low-potassium bath. 3. Respiratory failure secondary to COPD exacerbation and CHF exacerbation. The patient receives daily dialysis. We will follow up with Pulmonary. Patient is okay from the renal standpoint to be transferred out of the unit. GERI Voice ID: [id number] Report ID: [id number] MTDD
--- NOTE | 2018-12-09 01:49 | PN ---
Date of Progress Note: 12/08/2018 Subjective: Patient was seen this morning for followup. No new complaints/ problems reported by the patient. Lying in bed in ICU. He is on oxygen per tracheostomy. No more ventilator use as of yesterday afternoon. He was getting dialysis this morning. Objective: HEENT: Unremarkable. Lungs: Bilateral good equal air entry. No wheezing. No rales. Heart: Sounds normal. Abdomen: Soft. Bowel sounds normal. No guarding, rigidity, tenderness, or distention. Extremities: No leg edema. Laboratory Data: Labs reviewed. Impression: 1. Acute respiratory failure. 2. Acute exacerbation of chronic obstructive pulmonary disease. 3. End-stage renal disease, on hemodialysis. Plan: We will continue current medications. The patient is stable for transfer out of ICU to regular room and see copy of transfer order for details. Continue oxygen nebulizer treatment, steroids, antibiotics. Continue to follow with personal injury legal assistant and estimator and drafter. I will see him tomorrow for followup. ODESSA/MODL Voice ID: [id number] Report ID: [id number] ABEL
[2018-12-09] MEDS: ALBUTEROL 2.5 MG/3 ML NEB SOL NEB SCH ×4 (02:00→20:00)
[2018-12-09] MEDS: IPRATROPIUM BROM 0.5MG/2.5ML NEB SCH ×4 (02:00→20:00)
[2018-12-09 06:06] LABS: Albumin 3.4 g/dL (3.4-5.0); Phosphorus 4.9 mg/dL (2.5-4.9); Potassium 5.3 mmol/L (3.5-5.1)
[2018-12-09] MEDS: ROFLUMILAST 500 MCG TABLET PO SCH (08:41)
[2018-12-09] MEDS: SEVELAMER CARBONATE 800 MG TABLET PO SCH ×3 (08:41→17:07)
[2018-12-09] MEDS: Meropenem 500 MG in NA CHLORIDE 0.9% 100 ML IV SCH (08:42)
[2018-12-09] MEDS: HEPARIN 5000 UNIT/ML 1 ML VIAL SQ SCH ×2 (08:42→21:17)
[2018-12-09] MEDS: ASPIRIN EC 81 MG TAB PO SCH (08:42)
[2018-12-09] MEDS: predniSONE 20 MG TAB PO SCH (08:42)
--- NOTE | 2018-12-09 10:16 | PN ---
Date of Progress Note: 12/08/2018 Subjective: Mr. Perez has been followed by us for multiple medical problems including acute systol ic congestive heart failure with an ejection fraction of 44%. He has moderate aortic stenosis, left ventricular hypertrophy, end-stage renal disease, COPD, and AICD. He is now on oxygen via his trache ostomy; ventilator is not being used. Hemodialysis is going on today. The patient is not really a c andidate for cardiac interventions or procedures. We will continue the present regimen. We will sig n off this case. We will be available for questions if the need arises. HARPAL/PATRICK Voice ID: [id number] Report ID: [id number]
--- NOTE | 2018-12-09 12:05 | P.PN ---
Subjective Date of Service: 12/09/18 Chief Complaint: Respiratory failure Patient is doing much better still has some cough congestion of the monocytes elated in the sputum Review of Systems General: Weakness Respiratory: Cough, Shortness of Breath Physical Examination - Vital Signs Temperature: 97.5 F Blood Pressure: 119/57 Pulse: 90 Respirations: 18 Pulse Ox (%): 98 - Physical Exam General: Alert, Oriented x3 HEENT: Atraumatic Neck: Supple Respiratory: Expiratory wheezes Cardiovascular: Normal pulses Assessment & Plan - Problems (Diagnosis) (1) Respiratory failure Current Visit: Yes Status: Acute Plan: Patient admitted with respiratory failure he is doing much better continue with IV meropenem Pseudomonas isolated probably causing his exacerbation he is at risk for resistant infections probably best treated with IV meropenem for at least 10 days vital signs all stable Qualifiers: Chronicity: acute on chronic
[2018-12-09] MEDS: CALCIUM CARBONATE CHEW 500MG TAB PO SCH ×2 (16:07→21:21)
--- NOTE | 2018-12-09 20:07 | PN ---
Date of Progress Note: 12/09/2018 Subjective: The patient was admitted with respiratory failure, over volume, hyperkalemia. Patient b eing dialyzed on daily basis. Last dialysis was Thursday yesterday. Patient's shortness of breath has been subsided, intubated, extubated, currently on trach collar. Physical Examination: Vital Signs: Blood pressure 119/57, pulse of 90, afebrile. Chest: Clear to auscultation. Heart: S1, S2. Regular. Systolic murmur. Abdomen: Soft, nontender. Extremities: Plus edema. Laboratory Data: H and H of 01/08.3. Sodium 137, potassium 5.3, bicarb 24, BUN 67, creatinine 6.8, c alcium 8.4, phosphorus 4.9. Current Medications: The patient on its include albumin, midodrine, breathing treatment, meropenem, Renvela, prednisone, and fentanyl. Assessment And Plan: 1.End-stage renal disease, hyperkalemia with over volume, being dialyzed on a daily basis, currently normal volume. We will arrange for dialysis tomorrow. Patient is going to be dialyzed on low-potas sium bath given the persistent hyperkalemia. 2.Hyperkalemia. All workup been negative. Fecal occult is still pending. CT has been done yesterd ay came negative. Other possibility of recirculation still valid supported with no significant heard e in the BUN from yesterday, I mean post dialysis. So patient is going to need angiogram and angiopl asty for his AV fistula as outpatient. 3.Anemia of chronic kidney disease. Continue Epogen. 4.Hypertension, currently hypotension. Continue midodrine. 5.Pneumonia, respiratory failure, chronic obstructive pulmonary disease exacerbation, as by Pulmonar y and Primary. ROLANDO/PATRICK Voice ID: [id number] Report ID: [id number]
[2018-12-09] MEDS: predniSONE 10 MG TAB PO SCH (21:17)
[2018-12-10] MEDS: ALBUTEROL 2.5 MG/3 ML NEB SOL NEB SCH ×4 (02:00→20:10)
[2018-12-10] MEDS: IPRATROPIUM BROM 0.5MG/2.5ML NEB SCH ×4 (02:00→20:10)
[2018-12-10 06:45] LABS: Albumin 3.8 g/dL (3.4-5.0); Phosphorus 4.7 mg/dL (2.5-4.9); Potassium 4.6 mmol/L (3.5-5.1)
[2018-12-10] MEDS: ROFLUMILAST 500 MCG TABLET PO SCH (08:00)
[2018-12-10] MEDS: SEVELAMER CARBONATE 800 MG TABLET PO SCH ×3 (08:00→16:32)
[2018-12-10] MEDS: CALCIUM CARBONATE CHEW 500MG TAB PO SCH ×3 (08:01→15:55)
[2018-12-10] MEDS: ASPIRIN EC 81 MG TAB PO SCH (08:01)
[2018-12-10] MEDS: HEPARIN 5000 UNIT/ML 1 ML VIAL SQ SCH ×2 (08:01→20:18)
[2018-12-10] MEDS: predniSONE 10 MG TAB PO SCH ×2 (08:01→20:19)
[2018-12-10] MEDS: MIDODRINE HCL 5 MG TABLET PO PRN (10:16)
--- NOTE | 2018-12-10 12:27 | P.PN ---
Subjective Date of Service: 12/10/18 Chief Complaint: Respiratory failure Pt with ESRD , copd , admitted for SOB , required Vent support Today seen and examined during HD still coughing on PO prednisone cont inhaelrs Physical Examination - Vital Signs Temperature: 97.0 F Blood Pressure: 104/59 Pulse: 83 Respirations: 20 Pulse Ox (%): 100 - Physical Exam General: Oriented x3, Mild distress HEENT: Atraumatic Neck: Supple, Without JVD or thyroid abnormality Respiratory: Diminished, Inspiratory wheezes Cardiovascular: Regular rate/rhythm, Normal S1 S2, No gallops, No rubs, No murmurs, Edema (edema improving ) Gastrointestinal: Normal bowel sounds Assessment And Plan - Current Problems (Diagnosis) (1) COPD exacerbation Current Visit: No Status: Acute (2) ESRD on hemodialysis Onset Date: 06/04/15 Current Visit: No Status: Acute (3) Hypervolemia Onset Date: 05/29/14 Current Visit: No Status: Acute - Plan End-stage renal disease, edema improved Cont HD MWF renal dose meds Cont midodrine Hyperkalmeia K today <5.0 low K diet will need AAVF evaluation as an OP Anemia of chronic kidney disease. Continue Epogen. MBD cont binders COPD exacerbation resp Cultures grew pseudomonas aeruginosa on merrem
[2018-12-10] MEDS ORDERED: ACETYLCYST 20% 800 MG/4 ML VIAL PO ONE (12:30)
[2018-12-10] MEDS: Meropenem 500 MG in NA CHLORIDE 0.9% 100 ML IV SCH (14:52)
[2018-12-10] MEDS: PANTOPRAZOLE 40MG TABLET PO SCH (15:55)
--- NOTE | 2018-12-10 16:43 | PN ---
Date of Progress Note: 12/09/2018 Subjective: Patient was seen this morning for followup. No new complaints or problems reported by p atient. Sitting at bedside, not in any distress. Objective: Vital Signs: Reviewed. HEENT: Unremarkable. Lungs: Bilateral good equal entry. Presence of some scattered wheezing. Not in any respiratory dis tress. Heart: Sounds normal. Abdomen: Soft. Bowel sounds normal. No guarding, rigidity, tenderness, or distention. Extremities: No leg edema. Laboratory Data: Sodium 137, potassium 5.3, chloride 101, bicarb 24, BUN 67, creatinine 6.80, glucos e 225. Impression: 1.Acute respiratory failure. 2.Acute exacerbation of chronic obstructive pulmonary disease. 3.Acute bronchitis, organism Pseudomonas. 4.End-stage renal disease, on hemodialysis. 5.Anemia due to chronic kidney disease. Plan: We will go ahead and continue current IV antibiotic, which is meropenem. Dialysis support to be provided by sheepskin pickler. We will continue to follow with gas turbine powerplant mechanic. Nebulizer treatment, ox ygen will be continued. I will see him tomorrow for followup. ODESSA/MODL Voice ID: [id number] Report ID: [id number]
--- NOTE | 2018-12-10 16:50 | PN ---
Date of Progress Note: 12/10/2018 Subjective: Patient was seen this morning for followup. He was sitting at bedside. Overall feels b juan. Yesterday, off and on, he had some trouble with shortness of breath, but overall he is improv ing in the last 2 to 3 days. Objective: Vital signs: Reviewed. HEENT: Unremarkable. Lungs: Clear to auscultation. Heart: Sounds normal. Abdomen: Soft. Bowel sounds normal. No guarding, rigidity, tenderness, or distention. Extremities: No leg edema. Impression: 1.Acute respiratory failure, improved. 2.Acute bronchitis, organism Pseudomonas. 3.Acute exacerbation of chronic obstructive pulmonary disease, improved. 4.End-stage renal disease, on hemodialysis. Plan: We will continue current medication and IV antibiotic, which is meropenem. Continue nebulizer treatment and oxygen. Dialysis support to be provided by towel distributor and we will continue his curr ent treatment over this holiday weekend. Patient is listed as allergic to Cipro, which when I asked him further question, he does not know actually any details about that and he does not know how that got listed. I will have to review office record to see what is going on with that also. ODESSA/MODL Voice ID: [id number] Report ID: [id number]
[2018-12-11] MEDS: ALBUTEROL 2.5 MG/3 ML NEB SOL NEB SCH ×4 (02:05→19:55)
[2018-12-11] MEDS: IPRATROPIUM BROM 0.5MG/2.5ML NEB SCH ×4 (02:05→19:55)
[2018-12-11 05:52] LABS: Albumin 3.2 g/dL (3.4-5.0); Potassium 4.3 mmol/L (3.5-5.1)
[2018-12-11] MEDS: PANTOPRAZOLE 40MG TABLET PO SCH (08:47)
[2018-12-11] MEDS: predniSONE 10 MG TAB PO SCH ×2 (08:47→21:15)
[2018-12-11] MEDS: ROFLUMILAST 500 MCG TABLET PO SCH (08:47)
[2018-12-11] MEDS: ASPIRIN EC 81 MG TAB PO SCH (08:47)
[2018-12-11] MEDS: SEVELAMER CARBONATE 800 MG TABLET PO SCH ×3 (08:47→15:42)
[2018-12-11] MEDS: CALCIUM CARBONATE CHEW 500MG TAB PO SCH ×3 (08:47→15:42)
[2018-12-11] MEDS: Meropenem 500 MG in NA CHLORIDE 0.9% 100 ML IV SCH (08:49)
[2018-12-11] MEDS: HEPARIN 5000 UNIT/ML 1 ML VIAL SQ SCH ×2 (08:49→21:15)
--- NOTE | 2018-12-11 09:47 | P.PN ---
Subjective Date of Service: 12/11/18 Chief Complaint: COPD exacerbation Pseudomonas infection Patient is doing better cooperating with physical therapy still has some cough congestion Review of Systems General: Weakness Respiratory: Cough, Shortness of Breath Physical Examination - Vital Signs Temperature: 97.1 F Blood Pressure: 101/54 Pulse: 78 Respirations: 12 Pulse Ox (%): 100 - Physical Exam General: Alert, In no apparent distress, Oriented x3 Respiratory: Expiratory wheezes Cardiovascular: No edema, Regular rate/rhythm Assessment & Plan - Problems (Diagnosis) (1) Respiratory failure Current Visit: Yes Status: Acute Plan: Patient admitted with COPD respiratory failure doing much better continue with meropenem least 7 days of IV therapy white count normal mildly anemic is undergoing dialysis Qualifiers: Chronicity: acute on chronic
--- NOTE | 2018-12-11 13:51 | PN ---
Date of Progress Note: 12/11/2018 Subjective: Patient was seen this morning for followup. He was sitting at bedside, feeling better t magen than yesterday. No new complaints or problems reported. Objective: Vital Signs: Reviewed. HEENT: Unremarkable. Lungs: Clear to auscultation. Heart: Sounds normal. Abdomen: Soft. Bowel sounds normal. No guarding, rigidity, tenderness, or distention. Extremities: No leg edema. Impression: 1.Acute exacerbation of chronic obstructive pulmonary disease. 2.Acute respiratory failure. 3.Acute bronchitis. 4.End-stage renal disease, on hemodialysis. Plan: We will go ahead and continue current medication. Continue current antibiotic, which is merop enem for Pseudomonas infection and continue dialysis support per yarn hauler. I will see him tomorr ow for followup. Plan is to do 10 days of IV meropenem and the patient will be in hospital for that duration. ODESSA/MODL Voice ID: [id number] Report ID: [id number]
--- NOTE | 2018-12-11 23:57 | PN ---
Date of Progress Note: 12/11/2018 Chief Complaint: End-stage renal disease, on dialysis. History Of Present Illness: Patient has multiple medical problems including history of end-stage azul al disease, diastolic dysfunction, congestive heart failure, and COPD. He required vent support for COPD exacerbation with hypoxemic respiratory failure. Currently, he is off vent. He received dialys is yesterday and ultrafiltration was obtained. Leg edema has improved. Patient has history of chron ic lymphedema. Review of Systems: Denies PND or orthopnea. Physical Examination: Lungs: No wheezing, no rhonchi. Heart: S1, S2. Abdomen: Soft, benign. Extremities: Edema in both ankles. Impression And Plan: 1.Chronic obstructive pulmonary disease exacerbation. Continue prednisone and inhalers. 2.End-stage renal disease. Continue p.o. fluid restriction, low-sodium diet. Monitor fluid balance . Dialysis was done yesterday. 3.Hypervolemia, improving with adequate ultrafiltration. 4.Anemia in chronic kidney disease. Hemoglobin level in acceptable ranges. Monitor hemoglobin leve l. Adjust JAIRO. 5.Renal osteodystrophy. Continue renal diet and binders. EB/MODL Voice ID: [id number] Report ID: [id number]
[2018-12-12] MEDS: ALBUTEROL 2.5 MG/3 ML NEB SOL NEB SCH ×5 (01:15→20:10)
[2018-12-12] MEDS: IPRATROPIUM BROM 0.5MG/2.5ML NEB SCH ×5 (01:15→20:10)
[2018-12-12 06:14] LABS: Albumin 3.3 g/dL (3.4-5.0); Phosphorus 4.3 mg/dL (2.5-4.9); Potassium 4.5 mmol/L (3.5-5.1)
--- NOTE | 2018-12-12 08:12 | EKG ---
Test Date: 2018-12-10 Test Time: 09:00:14 Law Enforcement Director: BARBARA MEASUREMENT RESULTS: Intervals: Rate: 90 ME: 170 QRSD: 150 QT: 422 QTc: 516 Bryce: P: 18 ME: 170 QRS: -63 T: 96 INTERPRETIVE STATEMENTS: Electronic ventricular pacemaker Compared to ECG 12/06/2018 00:16:43 Atrial-sensed ventricular-paced complex(es) or rhythm no longer present Sinus rhythm no longer present Electronically Signed On 12-12-18 08:07:42 CDT by Bhupendra Samson
[2018-12-12] MEDS: Meropenem 500 MG in NA CHLORIDE 0.9% 100 ML IV SCH (08:22)
[2018-12-12] MEDS: ASPIRIN EC 81 MG TAB PO SCH (08:23)
[2018-12-12] MEDS: PANTOPRAZOLE 40MG TABLET PO SCH (08:23)
[2018-12-12] MEDS: ROFLUMILAST 500 MCG TABLET PO SCH (08:23)
[2018-12-12] MEDS: CALCIUM CARBONATE CHEW 500MG TAB PO SCH ×3 (08:23→16:16)
[2018-12-12] MEDS: SEVELAMER CARBONATE 800 MG TABLET PO SCH ×3 (08:23→16:16)
[2018-12-12] MEDS: predniSONE 10 MG TAB PO SCH ×2 (08:23→21:41)
[2018-12-12] MEDS: HEPARIN 5000 UNIT/ML 1 ML VIAL SQ SCH ×2 (08:24→21:41)
--- NOTE | 2018-12-12 15:04 | PN ---
Date of Progress Note: 12/12/2018 Subjective: Patient was seen this morning for followup. No new complaints or problems reported by emanuel pantoja. He was sitting at bedside. Has some cough and chest congestion, not coughing up any mucus. Denies any vomiting or diarrhea. Had 2 normal bowel movements as he reported yesterday. No abdomin al pain, nausea, or vomiting. Physical Examination: HEENT: Unremarkable. Lungs: Bilateral good equal entry. Presence of some rhonchi in lower lung region. No rales. No wh eezing. Heart: Sounds normal. Abdomen: Soft. Bowel sounds normal. No guarding, rigidity, tenderness, distention. Extremities: No leg edema. Impression: 1.Acute respiratory failure. 2.Acute exacerbation of chronic obstructive pulmonary disease. 3.Acute bronchitis. 4.End-stage renal disease, on hemodialysis. 5.Anemia due to chronic kidney disease. Plan: We will continue current medication. Continue current antibiotics, which is meropenem. Dialy sis support per act tutor and we will see him tomorrow for followup. We will continue oxygen and nebulizer treatment as well as steroid medication per order. ODESSA/MODL Voice ID: [id number] Report ID: [id number]
[2018-12-13] MEDS: ALBUTEROL 2.5 MG/3 ML NEB SOL NEB SCH ×3 (01:15→19:30)
[2018-12-13] MEDS: IPRATROPIUM BROM 0.5MG/2.5ML NEB SCH ×3 (01:15→19:30)
[2018-12-13] MEDS: SEVELAMER CARBONATE 800 MG TABLET PO SCH ×4 (08:13→16:15)
[2018-12-13] MEDS: PANTOPRAZOLE 40MG TABLET PO SCH (08:13)
[2018-12-13] MEDS: ASPIRIN EC 81 MG TAB PO SCH (08:13)
[2018-12-13] MEDS: predniSONE 10 MG TAB PO SCH ×2 (08:13→21:40)
[2018-12-13] MEDS: ROFLUMILAST 500 MCG TABLET PO SCH (08:13)
[2018-12-13] MEDS: CALCIUM CARBONATE CHEW 500MG TAB PO SCH ×4 (08:13→16:16)
[2018-12-13] MEDS: HEPARIN 5000 UNIT/ML 1 ML VIAL SQ SCH ×2 (08:14→21:40)
[2018-12-13] MEDS: Meropenem 500 MG in NA CHLORIDE 0.9% 100 ML IV SCH (09:03)
[2018-12-13] MEDS: MIDODRINE HCL 5 MG TABLET PO PRN (11:55)
--- NOTE | 2018-12-13 15:32 | PN ---
Date of Progress Note: 12/13/2018 Subjective: Patient was seen this morning for followup. No new complaints or problems reported by p atient. He was sitting at bedside. No new complaints reported except yesterday evening he had littl e bit of wheezing and shortness of breath, but feels better this morning. . Objective: Vital Signs: Reviewed. HEENT: Examination unremarkable. Lungs: Bilateral good equal air entry. Some scattered wheezing noted in lower lung [place], not in r espiratory distress. Heart: Sounds normal. Abdomen: Soft. Bowel sounds normal. No guarding, rigidity, tenderness, or distention. Extremities: No leg edema. Impression: 1.Acute exacerbation of chronic obstructive pulmonary disease. 2.Acute respiratory failure, resolved. 3.Acute bronchitis. 4.End-stage renal disease, on hemodialysis. 5.Anemia due to chronic kidney disease. Plan: We will continue current medication. Continue current antibiotics, oxygen nebulizer treatment . Continue to follow with data security coordinator for dialysis support and I will see him tomorrow for followup . ODESSA/MODL Voice ID: [id number] Report ID: [id number]
[2018-12-13] MEDS: ACETAMINOPHEN 500 MG TAB PO PRN (16:15)
[2018-12-14 04:25] LABS: Absolute Lymphocytes (CBC) 0.6 K/uL (0.7-4.9); Basophils % 0.1 % (0-1.3); Hematocrit 26.2 % (39.6-49.0); Lymphocytes % 5.1 % (15.3-44.8); MPV 11.9 fL (7.6-11.3)
[2018-12-14 04:49] LABS: Potassium 4.1 mmol/L (3.5-5.1)
[2018-12-14] MEDS: IPRATROPIUM BROM 0.5MG/2.5ML NEB SCH ×4 (06:10→20:00)
[2018-12-14] MEDS: ALBUTEROL 2.5 MG/3 ML NEB SOL NEB SCH ×3 (06:10→13:07)
[2018-12-14] MEDS: SEVELAMER CARBONATE 800 MG TABLET PO SCH ×3 (09:40→17:26)
[2018-12-14] MEDS: PANTOPRAZOLE 40MG TABLET PO SCH (09:41)
[2018-12-14] MEDS: CALCIUM CARBONATE CHEW 500MG TAB PO SCH ×3 (09:41→17:26)
[2018-12-14] MEDS: predniSONE 10 MG TAB PO SCH ×2 (09:42→20:26)
[2018-12-14] MEDS: Meropenem 500 MG in NA CHLORIDE 0.9% 100 ML IV SCH (09:42)
[2018-12-14] MEDS: ROFLUMILAST 500 MCG TABLET PO SCH (09:42)
[2018-12-14] MEDS: ASPIRIN EC 81 MG TAB PO SCH (09:42)
[2018-12-14] MEDS: HEPARIN 5000 UNIT/ML 1 ML VIAL SQ SCH ×2 (09:43→20:27)
[2018-12-14] MEDS: ACETAMINOPHEN 500 MG TAB PO PRN (11:09)
--- NOTE | 2018-12-14 11:17 | PN ---
Date of Progress Note: 12/13/2018 Chief Complaint: End-stage renal disease, on dialysis, history of congestive heart failure, systolic/diastolic dysfunction, fluid overload, lymphedema, and COPD exacerbation. The patient is undergoing dialysis today. Procedure was well tolerated. Leg edema is in acceptable control. Review of Systems: Denies fever or chills. Physical Examination: Lungs: Few crackles at bases. Heart: S1, S2. Abdomen: Soft, benign. Extremities: Edema in both ankles. Impression And Plan: 1. End-stage renal disease. Continue p.o. fluid restriction, low-sodium diet. Monitor electrolytes. 2. Hyperkalemia is controlled. Continue on low-potassium diet. 3. There is no evidence of metabolic acidosis. 4. Hypervolemia improving with dialysis, ultrafiltration and p.o. fluid intake limitation. 5. Anemia in chronic kidney disease. Hemoglobin in acceptable ranges. Adjust JAIRO as needed. 6. Renal osteodystrophy. Continue binders as before. 7. COPD exacerbation. Continue prednisone and inhalers. ALEXI/PATRICK Voice ID: [id number] Report ID: [id number]
[2018-12-14] MEDS: ALPRAZOLAM 0.25 MG TABLET PO SCH ×2 (15:42→20:27)
--- NOTE | 2018-12-14 16:09 | PN ---
Date of Progress Note: 12/14/2018 Subjective: Patient was admitted with pneumonia. Patient had dialysis yesterday. Tolerated the dwight lysis very well, managed to remove the 3 L. Physical Examination: Vital Signs: When I saw the patient, blood pressure 121/59, pulse of 77, afebrile. Chest: Crackles bilateral. Heart: S1, S2. Regular. Abdomen: Soft, nontender. Extremities: Plus edema. Neurologic: Alert and oriented x3. No focal. Patient has a trach. Laboratory Data: H and H are 8.4/26.2. Sodium 137, potassium 4.1, bicarb 30, BUN 65, creatinine 8, calcium 8.9. Current Medications: The patient on include: 1.Renvela. 2.Calcium carbonate. 3.Breathing treatment. 4.Pantoprazole. 5.Prednisone. Assessment And Plan: 1.End-stage renal disease. I am going to do for the patient sequential today and we will do dialysi s tomorrow. We will monitor the patient closely. 2.Hypertension, currently hypotension. Continue use midodrine and sodium module to establish better ultrafiltration. 3.Pneumonia. Continue current antibiotic. Follow up with the primary. 4.Secondary hyperparathyroidism. Continue binder. 5.Anemia of chronic kidney disease. Continue JAIRO. ROLANDO/PATRICK Voice ID: [id number] Report ID: [id number]
--- NOTE | 2018-12-14 23:09 | PN ---
Date of Progress Note: 12/14/2018 Subjective: Patient was seen this morning for followup. He was feeling better this morning when I s aw him. Sitting in chair. Denied any new complaints. Breathing was much better since I saw him yes terday morning and had no trouble overnight. Objective: Vital Signs: Reviewed. HEENT: Unremarkable. Lungs: Clear to auscultation. No wheezing. No rales. Heart: Sounds normal. Abdomen: Soft. Bowel sounds normal. No guarding, rigidity, tenderness, or distention. Extremities: No leg edema. Laboratory Data: White count 11.3, hemoglobin 8.4, platelets 79. Sodium 137, potassium 4.1, chlorid e 99, bicarb 30, BUN 55, creatinine 8.03, glucose 155. Impression: 1.Acute respiratory failure. 2.Acute exacerbation of chronic obstructive pulmonary disease. 3.Acute bronchitis. 4.End-stage renal disease, on hemodialysis. 5.Anemia due to chronic kidney disease. 6.Thrombocytopenia. Plan: Patient was doing fine this morning when I saw him, and we talked about possible discharge to go home sometime this week, once 10 days of IV antibiotic therapy with meropenem gets completed and d uring the course of day today, he had 2-3 episodes of such shortness of breath. One time nurse walton d and informed me that his breathing problem could have been due to albuterol when it was given along with Atrovent, as he experienced some shortness of breath after the treatment. So, with that kind o f information, order was given to do nebulizer treatment using Atrovent by itself without albuterol a nd that did not make any difference. Subsequently, nurse reported that patient was very anxious and see if any anxiety medication could help, so we did try some alprazolam and then he had episode where he was having respiratory distress. At that time, order was given to transfer him to ICU and to put him on ventilator and notified Dr. Easley. After that order was given, nurse called me after a wh ile and informed me that they were still waiting on ICU bed, but meanwhile, patient's condition actua lly improved and he was doing better than before, but I still have advised patient to be transferred to ICU and have ICU nurse call me once patient goes to ICU. ODESSA/MODL Voice ID: [id number] Report ID: [id number]
[2018-12-15] MEDS: ALBUTEROL 2.5 MG/3 ML NEB SOL NEB SCH ×4 (01:15→20:00)
[2018-12-15] MEDS: IPRATROPIUM BROM 0.5MG/2.5ML NEB SCH ×5 (01:15→20:15)
[2018-12-15] MEDS: CALCIUM CARBONATE CHEW 500MG TAB PO SCH ×3 (07:30→17:45)
--- NOTE | 2018-12-15 07:48 | P.PN ---
Subjective Date of Service: 12/15/18 Chief Complaint: Respiratory distress Patient is 78 years of age was transferred from the floor due to respiratory distress he probably had some thick secretions obstructing his inner cannula that was cleaned out he is doing much better shortness of breath has improved Review of Systems General: Weakness Respiratory: Cough, Shortness of Breath Physical Examination - Vital Signs Temperature: 98.3 F Blood Pressure: 134/61 Pulse: 78 Respirations: 19 Pulse Ox (%): 100 - Physical Exam General: Alert, Oriented x3 HEENT: Atraumatic Neck: Supple Respiratory: Clear to auscultation bilaterally Cardiovascular: Edema Assessment & Plan - Problems (Diagnosis) (1) Respiratory failure Current Visit: Yes Status: Acute Plan: P patient is 78 years of age with a history of COPD treated for Pseudomonas infection transfer to the ICU due to respiratory distress Vargas secondary to obstruction of the inner cannula with thick secretions he is doing much better since the trach was cleaned out of order another x-ray patient is on maximum bronchodilator therapy including Mucomyst vital signs in oxygenation stable transfer to the floor no change in treatment Qualifiers: Chronicity: acute on chronic
[2018-12-15] MEDS: ACETYLCYST 20% 4 ML VIAL IH SCH ×2 (08:15→20:00)
[2018-12-15] MEDS: SEVELAMER CARBONATE 800 MG TABLET PO SCH ×3 (09:23→17:45)
[2018-12-15] MEDS: PANTOPRAZOLE 40MG TABLET PO SCH (09:23)
[2018-12-15] MEDS: HEPARIN 5000 UNIT/ML 1 ML VIAL SQ SCH ×2 (09:23→20:11)
[2018-12-15] MEDS: ASPIRIN EC 81 MG TAB PO SCH (09:23)
[2018-12-15] MEDS: ALPRAZOLAM 0.25 MG TABLET PO SCH ×2 (09:23→20:10)
[2018-12-15] MEDS: ROFLUMILAST 500 MCG TABLET PO SCH (09:23)
[2018-12-15] MEDS: predniSONE 10 MG TAB PO SCH ×2 (09:24→20:10)
[2018-12-15] MEDS: Meropenem 500 MG in NA CHLORIDE 0.9% 100 ML IV SCH (10:15)
[2018-12-15] MEDS: CODEINE 30MG/APAP 300MG TAB PO PRN (10:26)
--- NOTE | 2018-12-15 11:33 | RAD REPORT ---
EXAM DESCRIPTION: RAD - Chest Single View - 12/15/2018 11:19 am CLINICAL HISTORY: Fever of unknown origin COMPARISON: December 07 TECHNIQUE: AP portable chest image was obtained 1115 hours . FINDINGS: Lung volumes are relatively low similar to comparison. Interstitial pattern is also promin ent but not substantially different from the comparison. Cardiac silhouette is enlarged similar to co mparison with vascular engorgement. Right-sided defibrillator/ pacemaker in place. Trach tube also in place. No chest film findings suspicious for focal pneumonia. No significant failure or volume overload. Mil d forms could be masked by exam limitations in patient's baseline pattern. Trachea is midline. No measurable pleural effusion and no pneumothorax. No acute bony abnormality se en. No acute aortic findings suspected. IMPRESSION: Heart, vasculature and lung markings are all prominent but not clearly different from th e comparison. This baseline pattern could mask early failure or volume overload. No focal pneumonia identifiable.
[2018-12-15] MEDS: ALBUMIN HUMAN 25% 50 ML IV SCH (12:24)
--- NOTE | 2018-12-15 15:25 | PN ---
Date of Progress Note: 12/15/2018 History Of Present Illness: Patient had respiratory distress yesterday. For that reason, patient wa s transferred to the ICU. Patient currently comfortable. Yesterday, had to undergo suction through the trach. Was not placed on any vent. Patient is scheduled for dialysis today. Blood pressure has been stable. Physical Examination: Vital Signs: Blood pressure 105/78, pulse of 88. Chest: Crackles, more prominent on the right zone. Heart: S1, S2. Systolic murmur. Abdomen: Soft, nontender. Extremities: Trace edema. Neurologic: Alert and oriented x3. No focal. Current Medications: 1.Aspirin. 2.Meropenem 500 daily. 3.Midodrine. 4.Albuterol. 5.Calcium carbonate. 6.Renvela 1600. 7.Pantoprazole. 8.Prednisone. Laboratory Data: WBC 11.3, H and H 8.4/26.2. Sodium of 137, potassium 4.1, bicarb 30, BUN 55, creat inine 8, calcium 8.9. Assessment And Plan: 1.End-stage renal disease possible slightly on the wet side. I am going to go ahead and do dialysis today and we will schedule for extra session of sequential tomorrow and we will get chest x-ray for better evaluation of the fluid status of the patient. 2.Hypertension, currently hypotension. We will utilize blood pressure for more dialysis. We will u se midodrine in between. 3.Anemia of chronic kidney disease. Continue JAIRO. 4.Secondary hyperparathyroidism. Continue binder. 5.Chronic obstructive pulmonary disease exacerbation secondary to pneumonia. Continue meropenem, dose appropriate. We will follow up with Pulmonary and Primary. ROLANDO/PATRICK Voice ID: [id number] Report ID: [id number]
[2018-12-15] MEDS ORDERED: NITROGLYCERIN 0.4 MG/TAB SL ONE (16:16)
[2018-12-15] MEDS: NITROGLYCERIN 0.4 MG/TAB SL PRN (16:26)
--- NOTE | 2018-12-15 22:43 | PN ---
Date of Progress Note: 12/15/2018 Subjective: Patient was seen this morning for followup. He was in ICU. Denied any complaints overn ight, except nurse reported that the patient had some difficulty breathing and some respiratory distr ess during nighttime and after she removed his tracheostomy tube and cleaned it as it was collecting excessive amount of mucus secretion. Once she cleaned it, he got better. This morning when I saw mehul ahn, he had no other specific complaints. Objective: Vital Signs: Reviewed. HEENT: Unremarkable. Lungs: Bilateral good equal air entry. Presence of some wheezing noted, scattered in all the lung f ields. Not using accessory muscles of respiration. Heart: Sounds normal. Abdomen: Soft. Bowel sounds normal. No guarding, rigidity, tenderness, distention. Extremities: No leg edema. Impression: 1.Acute respiratory failure. 2.Acute exacerbation of chronic obstructive pulmonary disease. 3. physician, Dr. Easley. We will continue nebulizer treatment, albuterol and Atrovent, and I have advised to start Mucomyst neb treatment 2 times a day. We will continue steroid and anti biotic per order, and I will see him tomorrow for followup. ODESSA/MODL Voice ID: [id number] Report ID: [id number]
[2018-12-16 05:09] LABS: Absolute Lymphocytes (CBC) 0.5 K/uL (0.7-4.9); Basophils % 0.3 % (0-1.3); Hematocrit 24.3 % (39.6-49.0); Lymphocytes % 5.8 % (15.3-44.8); MPV 12.4 fL (7.6-11.3); RBC Red Blood Cell Count 2.49 M/uL (4.33-5.43)
[2018-12-16 05:35] LABS: Magnesium 2.4 mg/dL (1.8-2.4); Potassium 4.6 mmol/L (3.5-5.1)
[2018-12-16] MEDS: ALBUTEROL 2.5 MG/3 ML NEB SOL NEB SCH ×4 (07:47→20:15)
[2018-12-16] MEDS: ACETYLCYST 20% 4 ML VIAL IH SCH ×3 (07:47→20:15)
[2018-12-16] MEDS: IPRATROPIUM BROM 0.5MG/2.5ML NEB SCH ×2 (07:47→15:56)
[2018-12-16] MEDS: SEVELAMER CARBONATE 800 MG TABLET PO SCH ×3 (08:04→16:53)
[2018-12-16] MEDS: PANTOPRAZOLE 40MG TABLET PO SCH (08:04)
[2018-12-16] MEDS: CALCIUM CARBONATE CHEW 500MG TAB PO SCH ×3 (08:04→16:53)
[2018-12-16] MEDS: ROFLUMILAST 500 MCG TABLET PO SCH (08:04)
[2018-12-16] MEDS: ASPIRIN EC 81 MG TAB PO SCH (08:05)
[2018-12-16] MEDS: ALPRAZOLAM 0.25 MG TABLET PO SCH ×2 (08:05→21:34)
[2018-12-16] MEDS: HEPARIN 5000 UNIT/ML 1 ML VIAL SQ SCH ×2 (08:05→21:34)
[2018-12-16] MEDS: predniSONE 10 MG TAB PO SCH ×2 (08:05→21:34)
--- NOTE | 2018-12-16 08:27 | RAD REPORT ---
EXAM DESCRIPTION: Zhanna Single View12/16/2018 7:56 am CLINICAL HISTORY: Shortness of breath COMPARISON: December 15 FINDINGS: The lungs appear clear of acute infiltrate. The heart is moderately to markedly enlarged. Enlarged. Pacemaker leads are in place. Tracheostomy tube remains in place IMPRESSION: No acute abnormalities displayed
[2018-12-16] MEDS: Meropenem 500 MG in NA CHLORIDE 0.9% 100 ML IV SCH (08:28)
[2018-12-16] MEDS: MIDODRINE HCL 5 MG TABLET PO PRN (11:55)
[2018-12-16] MEDS: CODEINE 30MG/APAP 300MG TAB PO PRN (12:45)
--- NOTE | 2018-12-17 00:53 | PN ---
Date of Progress Note: 12/16/2018 Subjective: Patient was seen this morning for followup. No new complaints or problems reported by emanuel pantoja. Lying in bed in ICU. No new complaints or problems reported. Objective: Vital Signs: Reviewed. HEENT: Unremarkable. Lungs: Clear to auscultation. Heart: Sounds normal. Abdomen: Soft. Bowel sounds normal. No guarding, rigidity, tenderness, distention. Extremities: No leg edema. Laboratory Data: White count 8.3, hemoglobin 8.2, platelets 72. Sodium 141, potassium 4.6, chloride 101, bicarb 30, BUN 41, creatinine 7.29, glucose . Impression: 1.Respiratory failure. 2.Chronic obstructive pulmonary disease, with acute exacerbation, improved. 3.End-stage renal disease, on hemodialysis. 4.Coronary artery disease. 5.Anemia due to chronic kidney disease. 6.Thrombocytopenia. Plan: We will go ahead and continue current medications including oxygen nebulizer treatment with al buterol and Atrovent and Mucomyst as started yesterday. Continue IV antibiotic, meropenem. Patient is medically stable for transfer out of ICU to regular room. We will follow up with tub operator for dialysis support and continue to follow with Pulmonary physician, Dr. Easley. I have instructed n [facility] in ICU to make sure to communicate with the floor nurses that before each nebulizer sravanthi tment, patient's tracheostomy cannula needs to be removed, cleaned and then replaced as he is having some mucus plug and secretion buildup, which might be actually contributing to his respiratory distress problem, and hopefully with frequent cleaning and Mucomyst, we might be a ble to help control this problem. ODESSA/MODL Voice ID: [id number] Report ID: [id number]
[2018-12-17] MEDS: IPRATROPIUM BROM 0.5MG/2.5ML NEB SCH ×4 (01:45→20:40)
[2018-12-17] MEDS: ALBUTEROL 2.5 MG/3 ML NEB SOL NEB SCH ×4 (01:45→20:40)
--- NOTE | 2018-12-17 02:45 | PN ---
Date of Progress Note: 12/16/2018 Subjective: The patient was admitted with COPD exacerbation, pneumonia, CHF exacerbation. The patie nt is scheduled for dialysis today. Physical Examination: Vital Signs: Blood pressure 121/58, pulse of 77. Chest: Crackles on the left base. Heart: S1, S2. Systolic murmur. Abdomen: Soft, nontender. Extremities: +1 edema. Laboratory Data: WBC 8.3, H and H 8.2/24.3, platelets 72. Sodium 141, potassium 4.6, bicarb 30, BUN 41, creatinine 7.2, calcium 8.7, magnesium 2.4. Current Medications: The patient on include: 1.Meropenem. 2.Midodrine. 3.Albuterol. 4.Calcium carbonate. 5.Tylenol. 6.Renvela 1600 with each meal. 7.Pantoprazole. 8.Prednisone. Assessment And Plan: 1.End-stage renal disease, over volume. We will do dialysis today just sequential to establish bett er volume control. 2.Hypertension, controlled, optimal. Continue to utilize midodrine for blood pressure support. 3.Congestive heart failure, over volume. We will challenge the patient today. 4.Anemia of chronic kidney disease. Continue Epogen. 5.Chronic obstructive pulmonary disease exacerbation as by primary. 6.Atrial fibrillation, as by Cardiology. 7.Respiratory failure secondary to chronic obstructive pulmonary disease exacerbation, over volume, improved, intubated, extubated. We will follow up with Pulmonary. GERI Voice ID: [id number] Report ID: [id number]
[2018-12-17] MEDS: PANTOPRAZOLE 40MG TABLET PO SCH (08:21)
[2018-12-17] MEDS: SEVELAMER CARBONATE 800 MG TABLET PO SCH ×3 (08:22→17:42)
[2018-12-17] MEDS: CALCIUM CARBONATE CHEW 500MG TAB PO SCH ×3 (08:22→17:42)
[2018-12-17] MEDS: ACETYLCYST 20% 4 ML VIAL IH SCH ×2 (08:30→20:40)
[2018-12-17] MEDS: ALPRAZOLAM 0.25 MG TABLET PO SCH ×2 (09:50→21:24)
[2018-12-17] MEDS: ROFLUMILAST 500 MCG TABLET PO SCH (09:50)
[2018-12-17] MEDS: ASPIRIN EC 81 MG TAB PO SCH (09:50)
[2018-12-17] MEDS: predniSONE 10 MG TAB PO SCH ×2 (09:50→21:24)
[2018-12-17] MEDS: HEPARIN 5000 UNIT/ML 1 ML VIAL SQ SCH ×2 (09:51→21:24)
[2018-12-17] MEDS: Meropenem 500 MG in NA CHLORIDE 0.9% 100 ML IV SCH (09:53)
[2018-12-17] MEDS: MIDODRINE HCL 5 MG TABLET PO PRN (09:53)
--- NOTE | 2018-12-17 10:54 | P.PN ---
Subjective Date of Service: 12/17/18 Chief Complaint: Cough congestion No new complaints he is doing much better still has some cough Review of Systems General: Weakness Respiratory: Cough, Shortness of Breath Physical Examination - Vital Signs Temperature: 97.6 F Blood Pressure: 112/56 Pulse: 74 Respirations: 18 Pulse Ox (%): 99 - Physical Exam General: Alert, Oriented x3 Respiratory: Expiratory wheezes Cardiovascular: No edema Assessment & Plan - Problems (Diagnosis) (1) COPD exacerbation Current Visit: No Status: Acute Plan: Patient is 78 years of age admitted with COPD exacerbation Pseudomonas was isolated he had a temporary setback came to the ICU later transferred to the floor is back to his baseline vital signs all stable patient is on meropenem continue with bronchodilators possible discharge add Mucomyst at the time of discharge
--- NOTE | 2018-12-17 11:28 | P.PN ---
Subjective Date of Service: 12/17/18 Chief Complaint: Cough congestion Subjective: Improving Pt with ESRD , copd , admitted for SOB , required Vent support Today no new complaints , feels better Had sequintial fluid removal yesterday CXR from yesterday : no pulmonary edema or pleural effusion HD today will resume Epogen Abdominal bruises , consider to reduce/hold heparin Physical Examination - Vital Signs Temperature: 97.6 F Blood Pressure: 112/56 Pulse: 74 Respirations: 18 Pulse Ox (%): 99 - Physical Exam General: In no apparent distress, Oriented x3 Neck: Supple, Other (Tracheostomy ) Respiratory: Diminished Cardiovascular: Regular rate/rhythm, No gallops, No rubs, No murmurs, Edema Gastrointestinal: Soft and benign Assessment And Plan - Current Problems (Diagnosis) (1) COPD exacerbation Current Visit: No Status: Acute (2) ESRD on hemodialysis Onset Date: 06/04/15 Current Visit: No Status: Acute (3) Hypervolemia Onset Date: 05/29/14 Current Visit: No Status: Acute - Plan End-stage renal disease, edema improved Cont HD MWF renal dose meds Cont midodrine Hyperkalmeia on HD Anemia of chronic kidney disease. Continue Epogen. MBD cont binders COPD exacerbation resp Cultures grew pseudomonas aeruginosa on merrem , inhalers and steroids
[2018-12-17] MEDS: NITROGLYCERIN 0.4 MG/TAB SL PRN ×2 (16:19→16:24)
[2018-12-17] MEDS: CODEINE 30MG/APAP 300MG TAB PO PRN (16:53)
--- NOTE | 2018-12-17 21:57 | PN ---
Date of Progress Note: 12/17/2018 Subjective: Patient was seen this morning for followup. He was lying in bed, in distress. Objective: Vital Signs: Reviewed. Overall feels better. HEENT: Unremarkable. Lungs: Clear to auscultation. Cardiovascular: Heart sounds normal. Abdomen: Soft. Bowel sounds normal. No guarding, rigidity, tenderness, distention. Extremities: Trace leg edema. Impression: 1.Acute respiratory failure, improved. 2.Acute exacerbation of chronic obstructive pulmonary disease. 3.Status post tracheostomy. 4.End-stage renal disease, on hemodialysis. 5.Anemia due to chronic kidney disease. 6.Thrombocytopenia. Plan: I will continue current nebulizer treatment. Patient was advised that even at home, he should clean his tracheostomy frequently prior to each nebulizer treatment and he should take nebulizer albert atment 4 times a day. Currently, we are using Mucomyst 2 times a day, we will continue to use that. Continue current antibiotics, dialysis support per wet washer machine, and possible discharge to go home o jack the weekend, depending on the condition. ODESSA/MODL Voice ID: [id number] Report ID: [id number]
[2018-12-17] MEDS: ALLOPURINOL 100 MG TAB PO SCH (22:35)
[2018-12-18] MEDS: IPRATROPIUM BROM 0.5MG/2.5ML NEB SCH ×4 (02:30→20:00)
[2018-12-18] MEDS: ALBUTEROL 2.5 MG/3 ML NEB SOL NEB SCH ×4 (02:30→20:00)
[2018-12-18] MEDS: SEVELAMER CARBONATE 800 MG TABLET PO SCH ×3 (08:04→16:23)
[2018-12-18] MEDS: PANTOPRAZOLE 40MG TABLET PO SCH (08:04)
[2018-12-18] MEDS: CALCIUM CARBONATE CHEW 500MG TAB PO SCH ×3 (08:04→16:23)
[2018-12-18] MEDS: ACETYLCYST 20% 4 ML VIAL IH SCH ×2 (08:30→20:00)
[2018-12-18] MEDS: ALPRAZOLAM 0.25 MG TABLET PO SCH ×2 (09:06→21:38)
[2018-12-18] MEDS: ALLOPURINOL 100 MG TAB PO SCH (09:06)
[2018-12-18] MEDS: ROFLUMILAST 500 MCG TABLET PO SCH (09:06)
[2018-12-18] MEDS: Meropenem 500 MG in NA CHLORIDE 0.9% 100 ML IV SCH (09:07)
[2018-12-18] MEDS: predniSONE 10 MG TAB PO SCH ×2 (09:07→21:38)
--- NOTE | 2018-12-18 09:22 | PN ---
He is not having angina. His fluid balance is slowly getting better. He gets hypotensive whenever t oo much fluid is drawn out, so he remains edematous in the legs. His lungs sound clear. He has righ t shoulder pain. I did not in any way think this is coronary heart disease becoming symptomatic. We will not make any changes in his regimen at this point. BERENICE/PATRICK Voice ID: [id number] Report ID: [id number]
[2018-12-18] MEDS: ASPIRIN EC 81 MG TAB PO SCH (11:27)
[2018-12-18] MEDS: HEPARIN 5000 UNIT/ML 1 ML VIAL SQ SCH ×2 (11:27→21:37)
[2018-12-18] MEDS ORDERED: MAGNESIUM HYDROXIDE 8% 30 ML PO ONE (11:32)
--- NOTE | 2018-12-18 12:53 | P.PN ---
Subjective Date of Service: 12/18/18 Chief Complaint: Cough congestion Pt with ESRD , copd , admitted for SOB , required Vent support Today Pt was complaining of chest pain yesterday at end of HD VS stable no further w/u as per cardiology will do short dialysis treatment today Physical Examination - Vital Signs Temperature: 97.5 F Blood Pressure: 118/57 Pulse: 80 Respirations: 20 Pulse Ox (%): 98 - Physical Exam General: In no apparent distress, Oriented x3 HEENT: Atraumatic Neck: Supple, Without JVD or thyroid abnormality Respiratory: Clear to auscultation bilaterally Cardiovascular: Regular rate/rhythm, Normal S1 S2, No gallops, No rubs, No murmurs, Edema Assessment And Plan - Current Problems (Diagnosis) (1) COPD exacerbation Current Visit: No Status: Acute (2) ESRD on hemodialysis Onset Date: 06/04/15 Current Visit: No Status: Acute (3) Hypervolemia Onset Date: 05/29/14 Current Visit: No Status: Acute - Plan End-stage renal disease, edema improved will do short dialysis treatment today or tomorrow then resume MWF Hyperkalmeia on HD Anemia of chronic kidney disease. Continue Epogen. MBD cont binders COPD exacerbation resp Cultures grew pseudomonas aeruginosa on merrem , inhalers and steroids Chest pain no further W/U as per cardiology
[2018-12-18] MEDS: MIDODRINE HCL 5 MG TABLET PO PRN (16:28)
[2018-12-18] MEDS: EPOETIN ALFA 10,000 UNIT/ML VIAL IV SCH (16:56)
--- NOTE | 2018-12-18 18:15 | PN ---
Date of Progress Note: 12/18/2018 Subjective: Patient was seen this morning for followup. He was sitting at bedside. No new complain ts or problems reported by patient. Denies any shortness of breath overnight. Having some constipat ion problem. Last bowel movement was hard and is requesting some laxative for that. He did have dwight lysis yesterday. During dialysis, he had some chest pain, relieved with nitroglycerin sublingual tab let. Objective: Vital signs: Reviewed. HEENT: Unremarkable. Lungs: Clear to auscultation. No rhonchi. No rales. Heart: Sounds normal. Abdomen: Soft. Bowel sounds normal. No guarding, rigidity, tenderness, distention. Extremities: No leg edema. Impression: 1.Respiratory failure, resolved. 2.Acute exacerbation of chronic obstructive pulmonary disease. 3.End-stage renal disease, on hemodialysis. 4.Coronary artery disease. Plan: Continue current medications. Continue current antibiotic meropenem for Pseudomonas bronchiti s. The plan is to discharge him to go home tomorrow. Details were discussed with the patient. We w ill continue current neb treatment including Mucomyst. Milk of magnesia was ordered for constipation . ODESSA/MODL Voice ID: [id number] Report ID: [id number]
[2018-12-19] MEDS: IPRATROPIUM BROM 0.5MG/2.5ML NEB SCH ×4 (02:00→20:00)
[2018-12-19] MEDS: ALBUTEROL 2.5 MG/3 ML NEB SOL NEB SCH ×4 (02:00→20:00)
[2018-12-19] MEDS: SEVELAMER CARBONATE 800 MG TABLET PO SCH ×3 (07:47→16:28)
[2018-12-19] MEDS: CALCIUM CARBONATE CHEW 500MG TAB PO SCH ×3 (07:48→16:29)
[2018-12-19] MEDS: PANTOPRAZOLE 40MG TABLET PO SCH (07:48)
[2018-12-19] MEDS: HEPARIN 5000 UNIT/ML 1 ML VIAL SQ SCH ×2 (08:16→20:33)
[2018-12-19] MEDS: predniSONE 10 MG TAB PO SCH ×2 (08:16→20:33)
[2018-12-19] MEDS: ALLOPURINOL 100 MG TAB PO SCH (08:16)
[2018-12-19] MEDS: ROFLUMILAST 500 MCG TABLET PO SCH (08:16)
[2018-12-19] MEDS: ALPRAZOLAM 0.25 MG TABLET PO SCH ×2 (08:16→20:33)
[2018-12-19] MEDS: ASPIRIN EC 81 MG TAB PO SCH (08:16)
[2018-12-19] MEDS: Meropenem 500 MG in NA CHLORIDE 0.9% 100 ML IV SCH (08:17)
[2018-12-19] MEDS: ACETYLCYST 20% 4 ML VIAL IH SCH ×2 (08:25→20:00)
--- NOTE | 2018-12-19 12:11 | P.PN ---
Subjective Date of Service: 12/19/18 Chief Complaint: Cough congestion Subjective: Improving Pt with ESRD , copd , admitted for SOB , required Vent support Today tolerated HD yesterday with no complications VS stable plan for HD tomorrow pt is cleared for dicshrge from nephrology point of view after HD tomorrow Physical Examination - Vital Signs Temperature: 97.7 F Blood Pressure: 121/57 Pulse: 85 Respirations: 20 Pulse Ox (%): 95 - Physical Exam General: In no apparent distress, Oriented x3 HEENT: Atraumatic Neck: Supple, Without JVD or thyroid abnormality Respiratory: Clear to auscultation bilaterally Cardiovascular: Regular rate/rhythm, No gallops, No rubs, No murmurs, Edema ( edema improving ) Gastrointestinal: Soft and benign Assessment And Plan - Current Problems (Diagnosis) (1) COPD exacerbation Current Visit: No Status: Acute (2) ESRD on hemodialysis Onset Date: 06/04/15 Current Visit: No Status: Acute (3) Hypervolemia Onset Date: 05/29/14 Current Visit: No Status: Acute - Plan End-stage renal disease, HD tomorrow Hyperkalmeia on HD Anemia of chronic kidney disease. Continue Epogen. MBD cont binders COPD exacerbation resp Cultures grew pseudomonas aeruginosa on merrem , inhalers and steroids Chest pain no further W/U as per cardiology Edema Improving
--- NOTE | 2018-12-19 13:11 | PN ---
Mr. Perez is not having any symptoms of unstable angina. He still has edema. Presently, he is not taking any medicines that would lower his blood pressure. Removing fluid by dialysis is impaired or limited by the fact that he gets hypotensive easily. We could certainly consider giving him a medic ine to boost his blood pressure during dialysis treatments to help getting it lower. I think that is something that could easily be done. BERENICE/PATRICK Voice ID: [id number] Report ID: [id number]
--- NOTE | 2018-12-19 13:17 | PN ---
Date of Progress Note: 12/19/2018 Subjective: Patient was seen this morning for followup. No new complaints, problems reported by su rothman. Lying in bed, not in distress. Objective: Vital Signs: Reviewed. HEENT: Unremarkable. Lungs: Clear to auscultation. Heart: Sounds normal. Abdomen: Soft, bowel sounds normal. No guarding, rigidity, tenderness, or distention. Extremities: Trace leg edema. Impression: 1.Acute bronchitis. 2.Acute exacerbation of chronic obstructive pulmonary disease. 3.Acute respiratory failure. 4.End-stage renal disease, on hemodialysis. 5.Thrombocytopenia. 6.Anemia due to chronic kidney disease. Plan: Patient is stable for discharge and he needs to use acetyl cystine 20% nebulizer treatment twi ce a day and prescription was sent to his pharmacy and per my request the nurse did call and checked at the pharmacy to make sure that if the prescription will be available for patient to use it startin g today or not and we were told that the pharmacist will have to order this medication and it will be available by tomorrow afternoon for patient to sweet pickle maker, so I will not discharge the patient today as I want the patient to have this medication available for his home use upon discharge. The patient w as made aware of that. So plan is tomorrow we will go ahead and have solutions sales executive dialyze him in the morning and by afternoon we can discharge him to go home. ODESSA/PATRICK Voice ID: [id number] Report ID: [id number]
[2018-12-20] MEDS: IPRATROPIUM BROM 0.5MG/2.5ML NEB SCH ×4 (02:30→20:00)
[2018-12-20] MEDS: ALBUTEROL 2.5 MG/3 ML NEB SOL NEB SCH ×4 (02:30→20:00)
[2018-12-20 05:47] VITALS: BMI 37.6
[2018-12-20] MEDS: CALCIUM CARBONATE CHEW 500MG TAB PO SCH ×3 (07:52→16:55)
[2018-12-20] MEDS: SEVELAMER CARBONATE 800 MG TABLET PO SCH ×3 (07:53→16:56)
[2018-12-20] MEDS: PANTOPRAZOLE 40MG TABLET PO SCH (07:53)
--- NOTE | 2018-12-20 08:04 | EKG ---
Test Date: 2018-12-17 Test Time: 18:44:59 Relief Worker: DINORAH MEASUREMENT RESULTS: Intervals: Rate: 87 VT: 168 QRSD: 144 QT: 428 QTc: 515 [place]: P: -13 VT: 168 QRS: -36 T: 198 INTERPRETIVE STATEMENTS: Atrial-sensed ventricular-paced rhythm tracking sinus rhythm with PVC s Compared to ECG 12/10/2018 09:00:14 PVC s are now present Electronically Signed On 12-20-18 08:03:57 CDT by Thomas Middleton
[2018-12-20] MEDS: ACETYLCYST 20% 4 ML VIAL IH SCH ×2 (08:25→20:00)
[2018-12-20] MEDS: HEPARIN 5000 UNIT/ML 1 ML VIAL SQ SCH ×2 (08:41→21:03)
[2018-12-20] MEDS: Meropenem 500 MG in NA CHLORIDE 0.9% 100 ML IV SCH (08:41)
[2018-12-20] MEDS: ALPRAZOLAM 0.25 MG TABLET PO SCH ×2 (08:42→21:03)
[2018-12-20] MEDS: ASPIRIN EC 81 MG TAB PO SCH (08:42)
[2018-12-20] MEDS: ROFLUMILAST 500 MCG TABLET PO SCH (08:42)
[2018-12-20] MEDS: predniSONE 10 MG TAB PO SCH ×2 (08:42→21:03)
[2018-12-20] MEDS: ALLOPURINOL 100 MG TAB PO SCH (08:44)
[2018-12-20] MEDS: CODEINE 30MG/APAP 300MG TAB PO PRN (10:01)
[2018-12-20] MEDS: EPOETIN ALFA 10,000 UNIT/ML VIAL IV SCH (10:53)
[2018-12-20] MEDS ORDERED: MIDODRINE HCL 5 MG TABLET PO PRN (10:54)
[2018-12-20] MEDS: NITROGLYCERIN 0.4 MG/TAB SL PRN (14:45)
--- NOTE | 2018-12-20 16:59 | EKG ---
Test Date: 2018-12-17 Test Time: 18:45:29 Wood Tank Erector: DINORAH MEASUREMENT RESULTS: Intervals: Rate: 88 [place]: 172 QRSD: 140 QT: 428 QTc: 517 [place]: P: 35 OH: 172 QRS: -36 T: 188 INTERPRETIVE STATEMENTS: Electronic ventricular pacemaker Compared to ECG 12/17/2018 18:44:59 Atrial-sensed ventricular-paced complex(es) or rhythm no longer present Sinus rhythm no longer present Ventricular premature complex(es) no longer present Electronically Signed On 12-20-18 16:55:47 CDT by Bhupendra Samson
[2018-12-21] VITALS: O2SAT 98
[2018-12-21] MEDS: IPRATROPIUM BROM 0.5MG/2.5ML NEB SCH (02:00)
[2018-12-21] MEDS: ALBUTEROL 2.5 MG/3 ML NEB SOL NEB SCH (02:00)
--- NOTE | 2018-12-21 02:07 | PN ---
Date of Progress Note: 12/20/2018 Subjective: Patient was seen this morning for followup. He was sitting at bedside. Denied any comp laints. His shortness of breath problem is doing much better as he reported. Objective: Vital Signs: Reviewed. HEENT: Unremarkable. Lungs: Clear to auscultation. No rhonchi. No rales. No wheezing. Heart: Sounds normal. Abdomen: Soft. Bowel sounds normal. No guarding, rigidity, tenderness, distention. Extremities: Trace leg edema. Assessment: 1.Acute respiratory failure. 2.Acute bronchitis. 3.End-stage renal disease, on hemodialysis. 4.Anemia due to chronic kidney disease. 5.Thrombocytopenia. 6.Coronary artery disease. Plan: Patient had a chest pain during dialysis today, which was resolved with 1 nitroglycerin tablet . After the dialysis was completed, as the nurse was removing needle, patient had excessive amount o f bleeding, which stopped after applying local pressure and he was hemodynamically stable, but patien t's health science specialist wants him to stay in the hospital overnight for observation. So our plan is to keep him in the hospital overnight and discharge him tomorrow to go home. ODESSA/MODL Voice ID: [id number] Report ID: [id number]
--- NOTE | 2018-12-21 03:28 | PN ---
Date of Progress Note: 12/20/2018 Chief Complaint: End-stage renal disease, COPD exacerbation. Subjective: Patient has been treated with daily dialysis to control volemia. Patient is scheduled to have dialysis today and is feeling better. Legs edema has improved. Review of Systems: Denies fever, chills. Physical Examination: Lungs: Clear to auscultation bilaterally. Heart: S1, S2. Abdomen: Soft, benign, nontender. Extremities: Slight edema in both legs. Laboratory Work: Hemoglobin 8.2, WBC 8.3, platelet count is 72,000. Chemistries showed sodium 141, potassium 4.6, chloride 101, CO2 of 30. BUN 41, creatinine 7.29. Magnesium is 2.4, calcium 8.7. Impression And Plan: 1. End-stage renal disease. Patient was dialyzed today. Post dialysis, he developed prolonged bleeding from AV graft, and with pressure dressing bleeding stopped, patient is not being discharged, due to prolonged bleeding after dialysis. Monitor hemoglobin level. Recheck CBC in the morning. 2. Patient did not have a significant blood loss and he was hemodynamically stable. 3. Intradialytic hypotension. Adjust ultrafiltration goal accordingly to prevent intradialytic hypotension. 4. Renal osteodystrophy. Continue renal diet and binders. EB/MODL Voice ID: [id number] Report ID: [id number]
[2018-12-21 05:05] VITALS: TEMP 97.3
[2018-12-21] MEDS: CALCIUM CARBONATE CHEW 500MG TAB PO SCH (06:31)
[2018-12-21] MEDS: PANTOPRAZOLE 40MG TABLET PO SCH (06:31)
[2018-12-21 09:28] VITALS: BP 115/56
== END 2018-12-21 09:03 | disposition home or self-care (01) | DRG 208 ==
LOC: ER 21:32 → ERHOLD 12-06 06:48 → 2ND 12-06 07:44 → 3RD-ICU 12-06 10:58 → 4TH 12-08 15:54 → 3RD-ICU 12-14 20:07 → 2ND 12-16 11:30
PROVIDERS: ADMIT Internal Medicine; ATTEND Internal Medicine
PROC: 5A1935Z Respiratory Ventilation, Less than 24 Consecutive Hours (ICD-10-PCS; principal; 2018-12-06)
PROC: 5A1D70Z Performance of Urinary Filtration, Intermittent, Less than 6 Hours Per Day (ICD-10-PCS; 2018-12-06)
PROC: 5A1D70Z Performance of Urinary Filtration, Intermittent, Less than 6 Hours Per Day (ICD-10-PCS; 2018-12-07)
PROC: 5A1D70Z Performance of Urinary Filtration, Intermittent, Less than 6 Hours Per Day (ICD-10-PCS; 2018-12-08)
PROC: 5A1D70Z Performance of Urinary Filtration, Intermittent, Less than 6 Hours Per Day (ICD-10-PCS; 2018-12-10)
PROC: 5A1D70Z Performance of Urinary Filtration, Intermittent, Less than 6 Hours Per Day (ICD-10-PCS; 2018-12-13)
PROC: 5A1D70Z Performance of Urinary Filtration, Intermittent, Less than 6 Hours Per Day (ICD-10-PCS; 2018-12-15)
PROC: 5A1D70Z Performance of Urinary Filtration, Intermittent, Less than 6 Hours Per Day (ICD-10-PCS; 2018-12-16)
PROC: 5A1D70Z Performance of Urinary Filtration, Intermittent, Less than 6 Hours Per Day (ICD-10-PCS; 2018-12-17)
PROC: 5A1D70Z Performance of Urinary Filtration, Intermittent, Less than 6 Hours Per Day (ICD-10-PCS; 2018-12-18)
PROC: 5A1D70Z Performance of Urinary Filtration, Intermittent, Less than 6 Hours Per Day (ICD-10-PCS; 2018-12-21)
DX: J96.21 Acute and chronic respiratory failure with hypoxia (principal); N18.6 End stage renal disease; I50.23 Acute on chronic systolic (congestive) heart failure; J44.1 Chronic obstructive pulmonary disease with (acute) exacerbation; I13.2 Hypertensive heart and chronic kidney disease with heart failure and with stage 5 chronic kidney disease, or end stage renal disease; N25.81 Secondary hyperparathyroidism of renal origin; J44.0 Chronic obstructive pulmonary disease with (acute) lower respiratory infection; J20.8 Acute bronchitis due to other specified organisms; I95.3 Hypotension of hemodialysis; I35.0 Nonrheumatic aortic (valve) stenosis; E87.5 Hyperkalemia; E11.22 Type 2 diabetes mellitus with diabetic chronic kidney disease; D63.1 Anemia in chronic kidney disease; G47.30 Sleep apnea, unspecified; I25.10 Atherosclerotic heart disease of native coronary artery without angina pectoris; J30.9 Allergic rhinitis, unspecified; M15.9 Polyosteoarthritis, unspecified; D69.6 Thrombocytopenia, unspecified; K57.90 Diverticulosis of intestine, part unspecified, without perforation or abscess without bleeding; M47.892 Other spondylosis, cervical region; K21.9 Gastro-esophageal reflux disease without esophagitis; C61 Malignant neoplasm of prostate; E87.70 Fluid overload, unspecified; N25.0 Renal osteodystrophy; Z93.0 Tracheostomy status; Z99.2 Dependence on renal dialysis
CPT/HCPCS: 36415; 71045; 74018; 74176; 80048; 80069; 80076; 82274; 82550; 82805; 82962; 83735; 83880; 84443; 84484; 85025; 85610; 87070; 87077; 87186; 87205; 90935; 93005; 94002; 94640; 94760; 96374; 96375; 99285; J0692; J0696; J1644; J1940; J2250; J2704; J2920; J2930; J3010; J7030; J7512; P9047

== ENCOUNTER 2018-12-21 15:21 | Emergency (ER) | payer OTHER, MEDICARE ==
--- OUTSIDE RECORDS SUMMARY | 2018-12-21 15:23 | XMS REPORT ---
:1940 [facility] Address [address] [place] [address] Dr. Vargas [address] [place] [address] Care Team Providers Name Role Phone Unavailable Unavailable Unavailable Problems This patient has no known problems. Allergies, Adverse Reactions, Alerts This patient has no known allergies or adverse reactions. Medications This patient has no known medications.
--- OUTSIDE RECORDS SUMMARY | 2018-12-21 15:23 | XMS REPORT | Clinical Summary ---
:1940 Author Organization [facility] Address [address] [place] [address] Care Team Providers Name Role Phone Anmol [...] Overview: Added automatically from request for surgery [id number] Coronary artery disease involving [place] coronary artery of [place] heart 07/22 without angina pectoris Overview: Added automatically from request for surgery [id number] Chest pain 07/22/2017 Overview: Added automatically from request for surgery [id number] Angina pectoris 07/21/2017 Coronary artery disease of [place] artery of [place] heart with stable 2017 angina pectoris Automatic implantable cardioverter-defibrillator in situ 03/10/2017 PAD (peripheral artery disease) 08/05/2016 Cardiomyopathy 08/05/2016 Systolic congestive heart failure 08/05/2016 Encounters Date Type Specialty Care Team Description 09/09/2018 Orders Only Cardiology Justin Ojeda MA 04/27/2018 Office Visit Cardiology Ad Quintero MD Chest pain, unspecified type (Primary Dx); Cardiomyopathy, unspecified type (HCC) after 12/20/2017 Family History Relation Name Status Comments Father [...] Comments Blood Pressure 108/53 04/27/2018 11:28 AM GENERAL MANAGER Pulse 94 04/27/2018 11:28 AM GENERAL MANAGER Temperature - - Respiratory Rate - - Oxygen Saturation - - Inhaled Oxygen Concentration - - Weight 138 kg (305 lb) 04/27/2018 11:28 AM GENERAL MANAGER Height 180.3 cm (5' 11") 04/27/2018 11:28 AM GENERAL MANAGER Body Mass Index 42.54 04/27/2018 11:28 AM GENERAL MANAGER Plan of Treatment Health Maintenance Due Date Last Done Comments SHINGLES VACCINES (#1) 1989 65+ PNEUMOCOCCAL VACCINE (1 of 2 - PCV13) 01/17/2004 INFLUENZA VACCINE 11/11/2018 Implants Implanted Type Area Sales Producer Device Shelf Model / Identifier Expiration Serial / Date Lot Device Vasclr Clsr Vasoactive Intstnl Peptd 8fr Angio-Seal - [id number] Cardiovascular N/A: 06/10/2017 [id number] / Implanted: 08/07/2016 at [facility] (Quantity not on file) Implants N/A / [id number] Stent Bili Protege Everflex Slf-Xpndbl 120cm [id number] - [id number] Coronary Stents N/A: [employer] 05/03/2017 [id number] 100 120 / Implanted: 08/07/2016 at [facility] (Quantity not on file) N/A / [id number] Procedures Procedure Name Priority Date/Time Associated Comments Diagnosis ECHOCARDIOGRAM 2D Routine 05/03/2018 5:01 Cardiomyopathy, Results for this COMPLETE W MMODE PM GENERAL MANAGER unspecified type procedure are in SPECTRAL COLOR DOPPLER (HCC) the results ([id number]) Chest pain, section. unspecified type ECG 12-LEAD Routine 04/27/2018 11:33 Cardiomyopathy, Results for this AM GENERAL MANAGER unspecified type procedure are in (HCC) the results section. after 12/20/2017 Results Echocardiogram complete w contrast and 3D if needed (05/03/2018 5:01 PM GENERAL MANAGER) Specimen Narrative Performed At [facility] Echocardiography Report Pat.Name:DILLON GARIBAY Pat.ID:[id number] St.Date: 05/03/2018 Refer.MD:AD QUINTERO MD Exam Time: 3:40:00 PMStudy Type:Routine Echo Height:71inWeight: 305lb BSA: 2.53 m2 DOBAge:1940,78Y Sex: MALEBP:108/53 HR:70 bpm Sonogrphr: EZRA Costello FASE Pat. Stat.:OutpatientRoom:[place] Study Status:Final Echo Event ID:[id number] Order ID:[id number] Reason for Study:Cardiomyopathy with no status change [...] RAPof 5 mmHg. MEASUREMENTS: 2D Parasternal Long [place] LVOT 2.2 cmLA Ds4.9 cm LVIDd6 cmIndex2.4 cm/m Ao An1.9 cm LVIDs5.1 cmAo Rtd 3.4 cm Index1.4 cm/m LV%fs 13.9 % LV Zrmw810.8 g(122-174) IVSd 1.3 cmLVM Rsskr418.4 g/m2 LVPWd1.3 cmRWT0.5 LA Sng Plane LA [...] Results In - 05/04/2018 2:44 PM GENERAL MANAGER [facility] Echocardiography Report Pat.Name: DILLON GARIBAY Pat.ID: [id number] .Date: 05/03/2018 Refer.MD: AD QUINTERO MD Exam Time: 3:40:00 PM Study Type:Routine Echo Height: 71in Weight: 305lb BSA: 2.53 m2 Age: 1001/16/1940,78Y Sex: MALE BP: 108/53 HR: 70 bpm Sonogrphr: EZRA Costello FASE Pat. Stat.:Outpatient Room: [place] Study Status:Final Echo Event ID:[id number] Order ID: [id number] Reason for Study:Cardiomyopathy with no status change [...] of 5 mmHg. MEASUREMENTS: 2D Parasternal Long [place] LVOT 2.2 cm LA Ds 4.9 cm [...] PM Ayo Polk M.D. Performing Organization Address City/State/[facility] Phone Number [facility] [address] [place] [address] ECG 12 lead (04/27/2018 11:33 AM GENERAL MANAGER) Ventricular rate 87 [facility] Atrial rate 87 [facility] ID interval 164 [facility] MUSE QRSD interval 154 [facility] QT interval 444 [facility] QTC interval 534 [facility] MUSE P axis 1 60 [facility] MUSE QRS axis 1 -16 [facility] MUSE T wave axis -73 [facility]USE EKG impression Atrial-sensed [facility] MUSE ventricular-paced rhythm-Abnormal ECG-In automated comparison with ECG of 21-JUL-2017 09:06,-Electronic ventricular pacemaker has replaced Sinus rhythm- Specimen Narrative Performed At Performing Organization Address [facility] Phone Number [facility] MUSE [address] [place] [address] after 12/20/2017 Insurance Payer Benefit Plan / Subscriber ID Effective Dates Phone Address Type Group MEDICARE MEDICARE PART A xxxxxxxxxx 2004-[place], [place] Medicare AND B t AARP AARP SUPPLEMENT xxxxxxxxxxx 2008-Present [place] (Work) [id number] Advance Directives For more information, please contact: [phone] Type Date Recorded Patient Director Telemetry Explanation Advance Directives, Living Will 08/07/2016 7:57 AM and Medical Power of Cattle Brander
--- NOTE | 2018-12-21 16:39 | RAD REPORT ---
EXAM DESCRIPTION: Zhanna Single View12/21/2018 4:21 pm CLINICAL HISTORY: sob COMPARISON: December 16, 2018 FINDINGS: The lungs appear clear of acute infiltrate. The heart is moderately enlarged. Pacemaker leads in place. Tracheostomy tube noted
[2018-12-21] MEDS ORDERED: ALBUTEROL 2.5 MG/3 ML NEB SOL ONE (18:11)
[2018-12-21] MEDS ORDERED: NA CHLORIDE 0.9% 250 ML ONE ×2 (18:12→19:32)
--- NOTE | 2018-12-21 18:30 | EKG ---
Test Date: 2018-12-21 Test Time: 15:42:43 Preforms Laminator: DANNAT MEASUREMENT RESULTS: Intervals: Rate: 119 AR: 112 QRSD: 148 QT: 386 QTc: 542 [place]: P: -29 AR: 112 QRS: -85 T: 78 INTERPRETIVE STATEMENTS: Electronic ventricular pacemaker Compared to ECG 12/17/2018 18:45:29 No significant changes Electronically Signed On 12-21-18 18:29:16 CDT by Bhupendra Samson
--- NOTE | 2018-12-21 20:34 | ER ---
Nurse's Notes [facility] Name: Sergio Perez Age: 78 yrs Sex: Male : 1940 Arrival Date: 12/21/2018 Time: 15:23 Bed 27 Private MD: Diagnosis: Chronic obstructive pulmonary disease, unspecified Presentation: 12/21 15:31 Presenting complaint: EMS states: pt was 3 weeks in ICU and was discharged this ca1 morning. Pt c/o . When we arrive at the scene, pt was giving himself A\T\A breathing treatment. VS were stable. Pt has a tracheostomy tube for 16 years now. Transition of care: patient was not received from another setting of care. Onset of symptoms was December 21, 2018. Risk Assessment: Do you want to hurt yourself or someone else? Patient reports no desire to harm self or others. Initial Sepsis Screen: Does the patient meet any 2 criteria? No. Patient's initial sepsis screen is negative. Does the patient have a suspected source of infection? No. Patient's initial sepsis screen is negative. Care prior to arrival: Glucose check: 239. 15:31 Method Of Arrival: EMS: [facility] ca1 15:31 Acuity: KARLENE 2 iw Historical: - Allergies: 15:55 Cipro; iw 15:55 Demerol; iw 15:55 Iodine; iw 15:55 SHELLFISH; iw - Home Meds: 16:00 albuterol sulfate 2.5 mg /3 mL (0.083 %) Inhl nebu 1 vial daily [Active]; allopurinol iw 200 mg Oral 2 tabs daily [Active]; amiodarone 200 mg Oral tab 0.5 tab daily [Active]; aspirin 81 mg Oral chew 1 tab twice daily [Active]; clopidogrel 75 mg Oral tab 1 tab once daily [Active]; Ferrous Sulfate 65 mg Oral 1x daily [Active]; fluticasone 50 mcg/actuation nasal spsn 1 spray 2 times per day [Active]; gabapentin Oral 1 tab 3 times per day [Active]; indura 800 mg 2 tabs before each meal TID [Active]; ipratropium bromide 0.02 % inhalation soln 2.5 mL 4 times per day [Active]; nitroglycerin 0.4 mg Oral as needed [Active]; omeprazole 20 mg Oral chew twice a day [Active]; Tums Oral 2 tabs per meal [Active]; vitamin A 8,000 unit Oral cap 1 cap once daily [Active]; vitamin d1 tablet 2000 IU daily [Active]; zinc sulfate 220 (50) mg Oral cap daily [Active]; - PMHx: 15:55 CHF; COPD; Diabetes - NIDDM; Dialysis; M-W-F; ESRD; GERD; Gout; Hypertension; iw Pacemaker; with defib; - Immunization history:: Adult Immunizations up to date. - Ebola Screening: : Patient negative for fever greater than or equal to 101.5 degrees Fahrenheit, and additional compatible Ebola Virus Disease symptoms Patient denies exposure to infectious person Patient denies travel to an Ebola-affected area in the 21 days before illness onset No symptoms or risks identified at this time. - Social history:: Smoking status: Patient/guardian denies using tobacco. Screenin:30 Abuse screen: Denies threats or abuse. Denies injuries from another. Nutritional aj1 screening: No deficits noted. Tuberculosis screening: No symptoms or risk factors identified. Fall Risk None identified. Assessment: 15:30 General: Appears in no apparent distress. uncomfortable, Behavior is calm, cooperative, aj1 appropriate for age. Pain: Complains of pain in anterior aspect of right shoulder and posterior aspect of right shoulder Pain currently is 8 out of 10 on a pain scale. Neuro: Level of Consciousness is awake, alert, obeys commands, Oriented to person, place, time, situation. Cardiovascular: Denies chest pain, Patient's skin is warm and dry. Rhythm is ventricular pacer. Respiratory: Reports shortness of breath Airway is patent Respiratory effort is even, unlabored, Respiratory pattern is regular, symmetrical, Breath sounds are clear bilaterally. GI: No signs and/or symptoms were reported involving the gastrointestinal system. : No signs and/or symptoms were reported regarding the genitourinary system. EENT: No signs and/or symptoms were reported regarding the EENT system. Derm: No signs and/or symptoms reported regarding the dermatologic system. Skin is pink, warm \T\ dry. normal. Musculoskeletal: No signs and/or symptoms reported regarding the musculoskeletal system. Circulation, motion, and sensation intact. 16:30 Reassessment: Patient appears in no apparent distress at this time. No changes from aj1 previously documented assessment. Patient and/or family updated on plan of care and expected duration. Pain level reassessed. Patient is alert, oriented x 3, equal unlabored respirations, skin warm/dry/pink. 17:30 Reassessment: Patient and/or family updated on plan of care and expected duration. Pain aj1 level reassessed. General: Appears in no apparent distress. comfortable, Behavior is calm, cooperative, appropriate for age. Neuro: Level of Consciousness is awake, alert, obeys commands, Oriented to person, place, time, situation. Cardiovascular: Patient's skin is warm and dry. Rhythm is ventricular pacer. Respiratory: Airway is patent Respiratory effort is even, unlabored, Respiratory pattern is regular, symmetrical. GI: No signs and/or symptoms were reported involving the gastrointestinal system. Derm: Skin is pink, warm \T\ dry. normal. Musculoskeletal: Circulation, motion, and sensation intact. 18:33 Reassessment: Patient appears in no apparent distress at this time. No changes from aj1 previously documented assessment. Patient and/or family updated on plan of care and expected duration. Pain level reassessed. Patient is alert, oriented x 3, equal unlabored respirations, skin warm/dry/pink. 19:30 Reassessment: Patient appears in no apparent distress at this time. No changes from aj1 previously documented assessment. Patient and/or family updated on plan of care and expected duration. Pain level reassessed. Patient is alert, oriented x 3, equal unlabored respirations, skin warm/dry/pink. 20:30 Reassessment: Patient and/or family updated on plan of care and expected duration. Pain aj1 level reassessed. General: Appears in no apparent distress. comfortable, Behavior is calm, cooperative, appropriate for age. Neuro: Level of Consciousness is awake, alert, obeys commands, Oriented to person, place, time, situation. Cardiovascular: Patient's skin is warm and dry. Respiratory: Airway is patent Respiratory effort is even, unlabored, Respiratory pattern is regular, symmetrical. Derm: Skin is pink, warm \T\ dry. normal. Musculoskeletal: Circulation, motion, and sensation intact. 21:00 Reassessment: Patient states that he can not be sent home until he gets his nightly aj1 Mucomyst, states that he takes it every night. Patient was asked how he usually has it administered when he is at home, patient states that he self-administers it but continues to insist that he can not be discharged until we administer his Mucomyst. 21:20 Reassessment: Patient states that he does not want the nurse to administer the Mucomyst aj1 he wants it administered by RT. Notified Jayant Keane RN charge nurse. 21:22 Reassessment: Jayant Keane RN charge nurse at bedside to talk to patient. Patient agrees aj1 to allow Mucomyst to be adminstered. 21:26 Reassessment: Patient appears in no apparent distress at this time. No changes from aj1 previously documented assessment. Patient and/or family updated on plan of care and expected duration. Pain level reassessed. Patient is alert, oriented x 3, equal unlabored respirations, skin warm/dry/pink. 21:27 Reassessment: Spoke with Luisana Norman on the phone per patient request (phone number [facility] [phone]) who says that he will come pick pulling machine operator the patient. 21:50 Reassessment: Patient has finished Mucomyst breathing treatment. Patient insists that aj1 he needs his trach cannula cleaned. States that he cannot go home until his trach cannula is cleaned. Patient was asked who cleans his trach ath home patient states that he does, but he cannot go home until we clean his trach cannula for him. 22:18 Reassessment: RT at bedside to clean out patient's cannula. aj1 22:35 Reassessment: Patient states that he is ready to go home. aj1 Vital Signs: 15:31 BP 105 / 77; Pulse 120; Resp 20 S; Temp 99.7(O); Pulse Ox 100% 5% ; ca1 16:30 BP 93 / 59; Pulse 104; Resp 20; Pulse Ox 97% ; aj1 17:30 BP 97 / 56; Pulse 95; Resp 18; Pulse Ox 98% ; aj1 18:03 BP 93 / 50; Pulse 91; Resp 17; Pulse Ox 100% ; lt1 18:34 BP 100 / 60; Pulse 91; Resp 20; Pulse Ox 100% on Nebulizer Mask; aj1 19:30 BP 90 / 57; Pulse 85; Resp 18; Pulse Ox 100% ; aj1 21:26 BP 110 / 60; Pulse 90; Resp 16; Pulse Ox 100% on Nebulizer Mask; aj1 21:52 BP 114 / 64; Pulse 94; Resp 16; Pulse Ox 100% on R/A; aj1 22:20 BP 109 / 54; Pulse 91; Resp 18; Pulse Ox 100% ; aj1 ED Course: 15:23 Patient arrived in ED. bd 15:30 Patient has correct armband on for positive identification. aj1 15:30 No provider procedures requiring assistance completed. aj1 15:31 Arm band placed on. ca1 15:34 Triage completed. ca1 15:44 Moisés Le NP is PHCP. pm1 15:44 Erich Mcmillan MD is Attending Physician. pm1 15:45 Inserted saline lock: 20 gauge in right forearm, using aseptic technique. Blood iw collected. 16:10 EKG done, by ED staff, reviewed by Erich Mcmillan MD. 3 16:24 Chest Single View XRAY In Process Unspecified. EDMS 17:26 Sabine Norman, RN is Primary Nurse. aj1 22:34 IV discontinued, intact, bleeding controlled, No redness/swelling at site. Pressure aj1 dressing applied. Administered Medications: 18:16 Drug: Albuterol 2.5 mg Route: Inhalation; aj1 21:29 Follow up: Response: No adverse reaction aj1 19:57 Drug: NS 0.9% 250 ml Route: IV; Rate: bolus; Site: right forearm; ca1 21:29 Follow up: IV Status: Completed infusion; IV Intake: 250ml aj1 21:22 Drug: Mucomyst 20 % (200 mg/mL) 4 ml Route: Inhalation; aj1 22:37 Follow up: Response: No adverse reaction aj1 Intake: 21:29 IV: 250ml; Total: 250ml. aj1 Outcome: 20:33 Discharge ordered by MD. pm1 22:38 Discharged to home via wheelchair, with family. aj1 22:38 Condition: stable 22:38 Discharge instructions given to patient, family, Instructed on discharge instructions, follow up and referral plans. Demonstrated understanding of instructions, follow-up care. 22:38 Patient left the ED. aj1 Signatures: Dispatcher [employer] EDMS Marie Hammonds Sabine Root RN RN aj1 Chasidy Mason RN RN iw Moisés Le NP QUANTITY SURVEYOR pm1 Sneha Van sm3 Aparna Ibrahim RN RN ca1 Mindy Quintana lt1 Corrections: (The following items were deleted from the chart) 15:43 15:31 Acuity: KARLENE 3 ca1 iw 15:54 15:45 Inserted saline lock: 20 gauge in left forearm, using aseptic technique. Blood iw collected. iw 21:27 16:30 BP 93 / 59; Pulse 104bpm; Resp 20bpm; Pulse Ox 97% RA; aj1 aj 21: 17:30 BP 97 / 56; Pulse 95bpm; Resp 18bpm; Pulse Ox 98% RA; aj1 [facility] 21: 19:30 BP 90 / 57; Pulse 85bpm; Resp 18bpm; Pulse Ox 100% RA; 1 [facility] 22:34 22:19 Patient admitted, IV remains in place. aj1 [facility] 22:37 16:00 Inserted saline lock: 20 gauge in left forearm, using aseptic technique. aj1 aj
--- NOTE | 2018-12-21 20:34 | EDPHYS ---
Physician Documentation [facility] Name: Sergio Perez Age: 78 yrs Sex: Male : 1940 Arrival Date: 12/21/2018 Time: 15:23 Bed 27 Private MD: ED Physician Erich Mcmillan HPI: 12/21 16:55 This 78 yrs old Black Male presents to ER via EMS with complaints of Breathing pm1 Difficulty. 16:55 The patient has shortness of breath at rest. Onset: The symptoms/episode began/occurred pm1 just prior to arrival. Duration: The symptoms are chronic, are continuous. The patient's shortness of breath is aggravated by nothing, is alleviated by nebulizer treatment. Associated signs and symptoms: Pertinent negatives: chest pain, non-productive cough, productive cough, fever. Severity of symptoms: in the emergency department the symptoms have improved Pain is currently a 0 / 10. The patient has experienced similar episodes in the past. The patient has been recently been admitted at [facility], hospitalized for 3 weeks for the same complaint and was discharged today around 9-10AM. Historical: - Allergies: 15:55 Cipro; iw 15:55 Demerol; iw 15:55 Iodine; iw 15:55 SHELLFISH; iw - Home Meds: 16:00 albuterol sulfate 2.5 mg /3 mL (0.083 %) Inhl nebu 1 vial daily [Active]; allopurinol iw 200 mg Oral 2 tabs daily [Active]; amiodarone 200 mg Oral tab 0.5 tab daily [Active]; aspirin 81 mg Oral chew 1 tab twice daily [Active]; clopidogrel 75 mg Oral tab 1 tab once daily [Active]; Ferrous Sulfate 65 mg Oral 1x daily [Active]; fluticasone 50 mcg/actuation nasal spsn 1 spray 2 times per day [Active]; gabapentin Oral 1 tab 3 times per day [Active]; indura 800 mg 2 tabs before each meal TID [Active]; ipratropium bromide 0.02 % inhalation soln 2.5 mL 4 times per day [Active]; nitroglycerin 0.4 mg Oral as needed [Active]; omeprazole 20 mg Oral chew twice a day [Active]; Tums Oral 2 tabs per meal [Active]; vitamin A 8,000 unit Oral cap 1 cap once daily [Active]; vitamin d1 tablet 2000 IU daily [Active]; zinc sulfate 220 (50) mg Oral cap daily [Active]; - PMHx: 15:55 CHF; COPD; Diabetes - NIDDM; Dialysis; M-W-F; ESRD; GERD; Gout; Hypertension; iw Pacemaker; with defib; - Immunization history:: Adult Immunizations up to date. - Ebola Screening: : Patient negative for fever greater than or equal to 101.5 degrees Fahrenheit, and additional compatible Ebola Virus Disease symptoms Patient denies exposure to infectious person Patient denies travel to an Ebola-affected area in the 21 days before illness onset No symptoms or risks identified at this time. - Social history:: Smoking status: Patient/guardian denies using tobacco. ROS: 16:55 Constitutional: Negative for fever, chills, and weight loss, Eyes: Negative for injury, pm1 pain, redness, and discharge, ENT: Negative for injury, pain, and discharge, Neck: Negative for injury, pain, and swelling, Cardiovascular: Negative for chest pain, palpitations, and edema. 16:55 Abdomen/GI: Negative for abdominal pain, nausea, vomiting, diarrhea, and constipation, Back: Negative for injury and pain, : Negative for injury, bleeding, discharge, and swelling, MS/Extremity: Negative for injury and deformity, Skin: Negative for injury, rash, and discoloration, Neuro: Negative for headache, weakness, numbness, tingling, and seizure. 16:55 Respiratory: Positive for shortness of breath, Negative for cough, sputum production, wheezing. Exam: 16:55 Constitutional: This is a well developed, well nourished patient who is awake, alert, pm1 and in no acute distress. Head/Face: Normocephalic, atraumatic. Eyes: Pupils equal round and reactive to light, extra-ocular motions intact. Lids and lashes normal. Conjunctiva and sclera are non-icteric and not injected. Cornea within normal limits. Periorbital areas with no swelling, redness, or edema. ENT: Nares patent. No nasal discharge, no septal abnormalities noted. Tympanic membranes are normal and external auditory canals are clear. Oropharynx with no redness, swelling, or masses, exudates, or evidence of obstruction, uvula midline. Mucous membranes moist. Neck: Trachea midline, no thyromegaly or masses palpated, and no cervical lymphadenopathy. Supple, full range of motion without nuchal rigidity, or vertebral point tenderness. No Meningismus. Chest/axilla: Normal chest wall appearance and motion. Nontender with no deformity. No lesions are appreciated. 16:55 Respiratory: Lungs have equal breath sounds bilaterally, clear to auscultation and percussion. No rales, rhonchi or wheezes noted. No increased work of breathing, no retractions or nasal flaring. Abdomen/GI: Soft, non-tender, with normal bowel sounds. No distension or tympany. No guarding or rebound. No evidence of tenderness throughout. Back: No spinal tenderness. No costovertebral tenderness. Full range of motion. Skin: Warm, dry with normal turgor. Normal color with no rashes, no lesions, and no evidence of cellulitis. MS/ Extremity: Pulses equal, no cyanosis. Neurovascular intact. Full, normal range of motion. 16:55 Cardiovascular: Rate: normal, Rhythm: regular. 16:55 Neuro: Orientation: is normal, Motor: is normal, moves all fours. Vital Signs: 15:31 BP 105 / 77; Pulse 120; Resp 20 S; Temp 99.7(O); Pulse Ox 100% 5% ; ca1 16:30 BP 93 / 59; Pulse 104; Resp 20; Pulse Ox 97% ; aj1 17:30 BP 97 / 56; Pulse 95; Resp 18; Pulse Ox 98% ; aj1 18:03 BP 93 / 50; Pulse 91; Resp 17; Pulse Ox 100% ; lt1 18:34 BP 100 / 60; Pulse 91; Resp 20; Pulse Ox 100% on Nebulizer Mask; aj1 19:30 BP 90 / 57; Pulse 85; Resp 18; Pulse Ox 100% ; aj1 21:26 BP 110 / 60; Pulse 90; Resp 16; Pulse Ox 100% on Nebulizer Mask; aj1 21:52 BP 114 / 64; Pulse 94; Resp 16; Pulse Ox 100% on R/A; aj1 22:20 BP 109 / 54; Pulse 91; Resp 18; Pulse Ox 100% ; aj1 MDM: 15:45 Patient medically screened. pm1 20:32 Data reviewed: vital signs. Data interpreted: Pulse oximetry: on room air is 100 %. pm1 Interpretation: normal. Counseling: I had a detailed discussion with the patient and/or guardian regarding: the historical points, exam findings, and any diagnostic results supporting the discharge/admit diagnosis, radiology results, the need for outpatient follow up, to return to the emergency department if symptoms worsen or persist or if there are any questions or concerns that arise at home. 21:20 ED course: Patient requesting Mucomyst prior to discharge. pm1 12/21 15:52 Order name: Chest Single View XRAY; Complete Time: 16:55 pm1 12/21 16:02 Order name: EKG; Complete Time: 16:02 pm1 12/21 16:02 Order name: EKG - Nurse/Tech; Complete Time: 16:04 pm1 Administered Medications: 18:16 Drug: Albuterol 2.5 mg Route: Inhalation; aj1 21:29 Follow up: Response: No adverse reaction aj1 19:57 Drug: NS 0.9% 250 ml Route: IV; Rate: bolus; Site: right forearm; ca1 21:29 Follow up: IV Status: Completed infusion; IV Intake: 250ml aj1 21:22 Drug: Mucomyst 20 % (200 mg/mL) 4 ml Route: Inhalation; aj1 22:37 Follow up: Response: No adverse reaction aj1 Disposition: 12/21/18 20:33 Discharged to Home. Impression: Chronic obstructive pulmonary disease, unspecified. - Condition is Stable. - Discharge Instructions: Chronic Obstructive Pulmonary Disease. - Medication Reconciliation Form, Thank You Letter, Antibiotic Education, Prescription Opioid Use form. - Follow up: Emergency Department; When: As needed; Reason: Worsening of condition. Follow up: Private Physician; When: 2 - 3 days; Reason: Recheck today's complaints, Continuance of care, Re-evaluation by your physician. - Problem is new. - Symptoms have improved. Addendum: 12/24/2018 07:02 Co-signature as Attending Physician, Erich Mcmillan MD. r n Signatures: Dispatcher [employer] EDOK Sabine Norman RN RN aj1 Chasidy Mason RN RN iw Nieto, Roman, MD MD rn Marinas, Patrick, WARE TESTER WARE TESTER pm1 Aparna Ibrahim RN RN ca1 Corrections: (The following items were deleted from the chart) 12/21 18:16 16:02 Suction ordered. pm1 aj1 22:38 20:33 12/21/2018 20:33 Discharged to Home. Impression: Chronic obstructive pulmonary aj1 disease, unspecified. Condition is Stable. Forms are Medication Reconciliation Form, Thank You Letter, Antibiotic Education, Prescription Opioid Use. Follow up: Emergency Department; When: As needed; Reason: Worsening of condition. Follow up: Private Physician; When: 2 - 3 days; Reason: Recheck today's complaints, Continuance of care, Re-evaluation by your physician. Problem is new. Symptoms have improved. pm1
[2018-12-21] MEDS ORDERED: ACETYLCYST 6,000 MG/30 ML VIAL ONE (21:09)
[2018-12-21 23:11] VITALS: TEMP 99.7
[2018-12-21 23:14] VITALS: O2SAT 100
[2018-12-21 23:21] VITALS: BP 109/54
--- NOTE | 2018-12-22 17:56 | DS ---
Date of Discharge: 12/21/2018 Disposition: Discharged to go home. Physical Examination: HEENT: Unremarkable. Lungs: Clear to auscultation. No rhonchi. No rales. No wheezing. Heart: Sounds normal. Abdomen: Soft. Bowel sounds normal. No guarding, rigidity, tenderness, or distention. Extremities: Trace leg edema. Laboratories And Investigations Done During This Hospitalization: Initial white count on 12/06/2018 was 10.4, hemoglobin 9.9 platelets 100. Last white count on 12/16/2018 was 8.3, hemoglobin 8.2, plat elets 72. Last chemistry on 12/16/2018; sodium 141, potassium 4.6, chloride 101, bicarb 30, BUN 41, creatinine 7.29, glucose 138. Hospital Course: A 78-year-old male patient admitted to the hospital. He came into emergency room w ith complaints of cough, congestion, shortness of breath. Please see dictated H and P for more infor mation. After patient was evaluated in the ER, he was admitted to the hospital with acute respirator y failure with hypoxia and acute exacerbation of COPD. Blood gas had shown pH 7.32, pCO2 of 45.8, PO 2 of 178, oxygen saturation 99.2% on 50% FiO2. Patient was admitted to the hospital. He was given o xygen nebulizer treatment, IV steroids, and antibiotics were started. Dr. Easley was consulted fro Pulmonary Service. Patient went into acute respiratory failure with this exacerbation of COPD prob heike and he was transferred to ICU and this actually happened a couple of times during this hospitaliz ation where he required to go to ICU because of acute respiratory failure and stayed on ventilator. He has a tracheostomy tube in place, so it was easy for us to go ahead and put him on ventilator usin g his tracheostomy tube. His condition improved. We actually were able to put him back on his trach eostomy. He did have a lot of secretions through his tracheostomy tube and I was concerned about tho se excessive amount of secretions probably causing mucus plugs type of problem and leading to respira tory failure. So, while he was in ICU, I started him on Mucomyst and that was the last treatment tiffany t we added for him his condition has improved dramatically. The patient continued to rece go initially IV steroid. Subsequently, we changed it to oral prednisone and he was also started on IV antibiotics meropenem for Pseudomonas that was grown out of his culture. Total 10 to 12 days of I V meropenem was given and he will not need anymore further antibiotic. [facility] was considering for dialysis support. Patient's condition has remained stable on medical floor. He has intermittent chest pain from time to time, which is nothing new and it gets relieved with nitroglycerin and that is what happened yesterday as well during dialysis relieved with nitroglycerin. He also h ad some bleeding from the site where a needle was inserted for dialysis. Upon completion of dialysis when the needle was removed, there was some excessive amount of bleeding, which was controlled by roxanna redmond nurse with application of pressure, but the patient's sample puller did not feel comfortable hi m going home yesterday, so the patient was kept in the hospital overnight after dialysis yesterday pe r sample puller's recommendation and today he was fine. no hematoma or any other abnormal finding and he was discharged to go home in stable condition with following discharge medication and instructions. Final Diagnoses: 1.Acute respiratory failure with hypoxia. 2.Acute exacerbation of chronic obstructive pulmonary disease. 3.Acute bronchitis, organism Pseudomonas. 4.Chronic systolic congestive heart failure. 5.Coronary artery disease. 6.Aortic stenosis. 7.Hyperkalemia. 8.End-stage renal disease, on hemodialysis. 9.Thrombocytopenia. 10.Anemia due to chronic kidney disease. 11.Sleep apnea. 12.Diabetes mellitus. 13.Allergic rhinitis. 14.Osteoarthritis, multiple sites. 15.Diverticulosis. 16.Cervical spondylosis with radiculopathy. 17.Prostate cancer. 18.Gastroesophageal reflux disease. Discharge Medications And Instructions: 1.Continue all prior home medications. 2.Take acetylcysteine 20% 4 mL vial per nebulizer treatment 2 times a day. 3.Use albuterol and ipratropium bromide nebulizer treatment 4 times a day. 4.Clean and replace your tracheostomy cannula prior to each nebulizer treatment and patient was inst ructed about that and he feels comfortable following this instruction. 5.Follow up at my office in 2 weeks. ODESSA/MODL Voice ID: [id number] Report ID: [id number]
== END 2018-12-21 22:38 | disposition home or self-care (01) ==
LOC: ER 15:21
DX: J44.9 Chronic obstructive pulmonary disease, unspecified (principal); E11.22 Type 2 diabetes mellitus with diabetic chronic kidney disease; I13.2 Hypertensive heart and chronic kidney disease with heart failure and with stage 5 chronic kidney disease, or end stage renal disease; I50.9 Heart failure, unspecified; N18.6 End stage renal disease; Z99.2 Dependence on renal dialysis; Z79.82 Long term (current) use of aspirin; Z88.1 Allergy status to other antibiotic agents; Z88.5 Allergy status to narcotic agent; Z91.013 Allergy to seafood; Z91.048 Other nonmedicinal substance allergy status; Z95.810 Presence of automatic (implantable) cardiac defibrillator
CPT/HCPCS: 71045; 93005; 96360; 96361; 96365; 96366; 99285

== ENCOUNTER 2019-03-10 11:37 | Inpatient (IN) | payer OTHER, MEDICARE ==
--- OUTSIDE RECORDS SUMMARY | 2019-03-10 11:39 | XMS REPORT ---
:1940 [facility] Address [address] [place] [address] Dr. Vargas [address] [place] [id number] Care Team Providers Name Role Phone Unavailable Unavailable Unavailable Problems This patient has no known problems. Allergies, Adverse Reactions, Alerts This patient has no known allergies or adverse reactions. Medications This patient has no known medications.
[2019-03-10 12:29] LABS: Basophils % 1.3 % (0-1.3); Hematocrit 31.6 % (39.6-49.0); Lymphocytes % 16.1 % (15.3-44.8); MPV 10.2 fL (7.6-11.3)
[2019-03-10 12:33] LABS: Protime INR 1.08
--- NOTE | 2019-03-10 13:15 | RAD REPORT ---
EXAM DESCRIPTION: Zhanna Single View03/10/2019 1:02 pm CLINICAL HISTORY: Shortness of breath COMPARISON: December 2018 FINDINGS: The lungs appear clear of acute infiltrate. The heart is moderately enlarged. Pacemaker l rubio are in place. Tracheostomy tube in place IMPRESSION: No acute abnormalities displayed
[2019-03-10 13:19] LABS: Albumin 3.4 g/dL (3.4-5.0); Bilirubin Direct 0.1 mg/dL (0-0.2); Bilirubin Total 0.3 mg/dL (0.2-1.0); Magnesium 2.2 mg/dL (1.8-2.4); Protein, Total 7.2 g/dL (6.4-8.2); Troponin (Emerg Dept Use Only) 0.04 ng/mL (0.0-0.045)
[2019-03-10] MEDS ORDERED: IPRATROPIUM BROM 0.5MG/2.5ML ONE (13:44)
[2019-03-10] MEDS ORDERED: LEVALBUTEROL 1.25 MG/3 ML NEB ONE (13:44)
--- NOTE | 2019-03-10 13:56 | ER ---
Nurse's Notes [facility] Name: Sergio Perez Age: 79 yrs Sex: Male : 1940 Arrival Date: 03/10/2019 Time: 11:39 Bed 5 Private MD: Anmol Salazar Diagnosis: Dyspnea;End stage renal disease;Cardiomegaly;Unspecified combined systolic (congestive) and diastolic (congestive) heart failure;Tracheostomy status Presentation: 03/10 11:41 Presenting complaint: Patient states: i started feeling short of breath last night, tw2 yesterday i had dialysis, (MWF). Transition of care: patient was not received from another setting of care. Onset of symptoms was March 10, 2019. Risk Assessment: Do you want to hurt yourself or someone else? Patient reports no desire to harm self or others. Initial Sepsis Screen: Does the patient meet any 2 criteria? No. Patient's initial sepsis screen is negative. Does the patient have a suspected source of infection? No. Patient's initial sepsis screen is negative. Care prior to arrival: None. 11:41 Method Of Arrival: Wheelchair tw2 11:45 Acuity: KARLENE 2 tw2 Triage Assessment: 11:42 General: Appears in no apparent distress. Behavior is calm, cooperative, appropriate tw2 for age. Pain: Denies pain. Cardiovascular: Dialysis shunt: in the left arm. Respiratory: Reports shortness of breath at rest Onset: The symptoms/episode began/occurred yesterday, the patient has mild shortness of breath. Historical: - Allergies: 11:44 Cipro; tw2 11:44 Demerol; tw2 11:44 Iodine; tw2 11:44 SHELLFISH; tw2 11:44 meperidine; tw2 11:44 ciprofloxacin; tw2 - Home Meds: 11:44 gabapentin Oral 1 tab 3 times per day [Active]; albuterol sulfate 2.5 mg /3 mL (0.083 tw2 %) Inhl nebu 1 vial daily [Active]; allopurinol 200 mg Oral 2 tabs daily [Active]; amiodarone 200 mg Oral tab 0.5 tab daily [Active]; aspirin 81 mg Oral chew 1 tab twice daily [Active]; clopidogrel 75 mg Oral tab 1 tab once daily [Active]; Ferrous Sulfate 65 mg Oral 1x daily [Active]; indura 800 mg 2 tabs before each meal TID [Active]; omeprazole 20 mg Oral chew twice a day [Active]; Tums Oral 2 tabs per meal [Active]; nitroglycerin 0.4 mg Oral as needed [Active]; ipratropium bromide 0.02 % inhalation soln 2.5 mL 4 times per day [Active]; fluticasone 50 mcg/actuation nasal spsn 1 spray 2 times per day [Active]; zinc sulfate 220 (50) mg Oral cap daily [Active]; vitamin d1 tablet 2000 IU daily [Active]; vitamin A 8,000 unit Oral cap 1 cap once daily [Active]; - PMHx: 11:44 CHF; COPD; Diabetes - NIDDM; Dialysis; M-W-F; GERD; ESRD; Gout; Hypertension; tw2 Pacemaker; with defib; - Immunization history:: Adult Immunizations. - Social history:: Smoking status: . - Ebola Screening: : Patient denies travel to an Ebola-affected area in the 21 days before illness onset. - Family history:: not pertinent. Screenin:55 Abuse screen: Denies threats or abuse. Denies injuries from another. Nutritional ca1 screening: No deficits noted. Tuberculosis screening: No symptoms or risk factors identified. Fall Risk IV access (20 points). Ambulatory Aid- Crutches/Cane/Walker (15 pts). Total Dodson Fall Scale indicates High Risk Score (45 or more points). Fall prevention measures have been instituted. Side Rails Up X 2 Family Present and informed to notify staff if the need to leave the bedside As available patient and family educated on Fall Prevention Program and Strategies. Assessment: 11:55 General: Appears in no apparent distress. uncomfortable, Behavior is calm, cooperative, ca1 appropriate for age. Pain: Denies pain. Neuro: Level of Consciousness is awake, alert, obeys commands, Oriented to person, place, time, situation. Cardiovascular: Heart tones S1 S2 present Capillary refill < 3 seconds Patient's skin is warm and dry. Pulses are all present. Edema is 1+ to left ankle, left foot, left toes, right ankle, right foot and right toes Rhythm is. Cardiovascular: Dialysis shunt: in the left arm, with palpable thrill, with auscultated bruit, with no erythema, with no edema, no bleeding noted. Respiratory: Reports shortness of breath at rest Airway is patent via trache Respiratory effort is even, unlabored, Respiratory pattern is Breath sounds are clear bilaterally. GI: Abdomen is round non-distended, Bowel sounds present X 4 quads. Abd is soft and non tender X 4 quads. : No deficits noted. No signs and/or symptoms were reported regarding the genitourinary system. EENT: No deficits noted. No signs and/or symptoms were reported regarding the EENT system. Derm: Skin is intact, is healthy with good turgor, Skin is pink, warm \T\ dry. Musculoskeletal: Circulation, motion, and sensation intact. Capillary refill < 3 seconds. 12:03 Reassessment: Provider at bedside. ca1 12:45 Reassessment: Patient appears in no apparent distress at this time. Patient and/or ca1 family updated on plan of care and expected duration. Pain level reassessed. Patient is alert, oriented x 3, equal unlabored respirations, skin warm/dry/pink. 12:46 Reassessment: Patient appears in no apparent distress at this time. pt requesting he sg would like to sit in a wheelchair, a recliner has been provided for pt comfort and request, pt reports feeling better with recliner chair. 13:27 Reassessment: Patient appears in no apparent distress at this time. Patient is alert, ca1 oriented x 3, equal unlabored respirations, skin warm/dry/pink. 14:34 Reassessment: Patient appears in no apparent distress at this time. Patient and/or ca1 family updated on plan of care and expected duration. Pain level reassessed. Patient is alert, oriented x 3, equal unlabored respirations, skin warm/dry/pink. Pt eating with family. Patient states feeling better. 15:17 Reassessment: Patient appears in no apparent distress at this time. Patient and/or ca1 family updated on plan of care and expected duration. Pain level reassessed. Vital Signs: 11:45 BP 91 / 46; Pulse 83; Resp 17; Temp 99.7(O); Pulse Ox 97% on R/A; Weight 128.82 kg (R); tw2 Height 5 ft. 11 in. (180.34 cm); Pain 0/10; 12:45 BP 104 / 41; Pulse 78; Resp 15; Pulse Ox 98% on R/A; ca1 13:30 BP 109 / 65; Pulse 93; Resp 15 S; Pulse Ox 97% on R/A; ca1 14:34 BP 113 / 77; Pulse 80; Resp 14 S; Pulse Ox 99% on R/A; ca1 15:30 BP 110 / 67; Pulse 89; Resp 15 S; Pulse Ox 98% on R/A; ca1 11:45 Body Mass Index 39.61 (128.82 kg, 180.34 cm) tw2 ED Course: 11:39 Patient arrived in ED. mr 11:39 Anmol Salazar MD is Private Physician. mr 11:42 Triage completed. tw2 11:42 Arm band placed on. tw2 11:47 Mickey Bro MD is Attending Physician. [facility] 11:51 Aparna Ibrahim RN is Primary Nurse. ca1 11:55 Patient has correct armband on for positive identification. Placed in gown. Bed in low ca1 position. Call light in reach. Side rails up X 1. environmental web crawler on. Pulse ox on. NIBP on. Warm blanket given. 12:00 Missed attempt(s): 22 gauge in right forearm. Bleeding controlled, band aid applied, ca1 catheter tip intact. 12:24 X-ray completed. Portable x-ray completed in exam room. Patient tolerated procedure mh1 well. 12:29 Initial lab(s) drawn, by ct, sent to lab. Inserted saline lock: 22 gauge in right jb1 forearm, using aseptic technique. Blood collected. 12:43 EKG done, by ED staff, reviewed by Mickey Bro MD. sg 13:30 No provider procedures requiring assistance completed. Patient admitted, IV remains in ca1 place. 13:55 Anmol Salazar MD is Hospitalizing Provider. tono Administered Medications: 13:45 Drug: Xopenex 2.5 mg Route: Inhalation; ca1 14:35 Follow up: Response: No adverse reaction; Marked relief of symptoms ca1 13:45 Drug: AtroVENT Aerosol 0.5 mg Route: Inhalation; ca1 Outcome: 13:56 Decision to Hospitalize by Provider. [facility] 15:22 Admitted to Med/surg accompanied by abrahan, via wheelchair, room 213, with chart, Report ca1 called to PATRICIA Watson RN 15:22 Condition: stable 15:22 Instructed on the need for admit. 15:30 Patient left the ED. ca1 Signatures: Mohan Torres1 Cliff Leigh RN RN sg Mickey Bro MD MD cha Rivera, Ame mr Eduardo Almaz 1 Kala Velázquez RN RN tw2 Aparna Ibrahim RN RN ca1 Corrections: (The following items were deleted from the chart) 11:45 11:41 Acuity: KARLENE 3 tw2 tw
--- NOTE | 2019-03-10 13:57 | EDPHYS ---
Physician Documentation [facility] Name: Sergio Perez Age: 79 yrs Sex: Male : 1940 Arrival Date: 03/10/2019 Time: 11:39 Bed 5 Private MD: Anmol Salazar ED Physician Mickey Bro HPI: 03/10 12:09 This 79 yrs old Black Male presents to ER via Wheelchair with complaints of Shortness tono Of Breath. 12:09 The patient has shortness of breath with light activity. Onset: The symptoms/episode tono began/occurred 2 day(s) ago. Duration: The symptoms are continuous, and are steadily getting worse. The patient's shortness of breath is aggravated by exertion, light activity, supine position. Associated signs and symptoms: Pertinent positives: non-productive cough. Severity of symptoms: At their worst the symptoms were in the emergency department the symptoms are unchanged. The patient has experienced similar episodes in the past, a few times, several times. Historical: - Allergies: 11:44 Cipro; tw2 11:44 Demerol; tw2 11:44 Iodine; tw2 11:44 SHELLFISH; tw2 11:44 meperidine; tw2 11:44 ciprofloxacin; tw2 - Home Meds: 11:44 gabapentin Oral 1 tab 3 times per day [Active]; albuterol sulfate 2.5 mg /3 mL (0.083 tw2 %) Inhl nebu 1 vial daily [Active]; allopurinol 200 mg Oral 2 tabs daily [Active]; amiodarone 200 mg Oral tab 0.5 tab daily [Active]; aspirin 81 mg Oral chew 1 tab twice daily [Active]; clopidogrel 75 mg Oral tab 1 tab once daily [Active]; Ferrous Sulfate 65 mg Oral 1x daily [Active]; indura 800 mg 2 tabs before each meal TID [Active]; omeprazole 20 mg Oral chew twice a day [Active]; Tums Oral 2 tabs per meal [Active]; nitroglycerin 0.4 mg Oral as needed [Active]; ipratropium bromide 0.02 % inhalation soln 2.5 mL 4 times per day [Active]; fluticasone 50 mcg/actuation nasal spsn 1 spray 2 times per day [Active]; zinc sulfate 220 (50) mg Oral cap daily [Active]; vitamin d1 tablet 2000 IU daily [Active]; vitamin A 8,000 unit Oral cap 1 cap once daily [Active]; - PMHx: 11:44 CHF; COPD; Diabetes - NIDDM; Dialysis; M-W-F; GERD; ESRD; Gout; Hypertension; tw2 Pacemaker; with defib; - Immunization history:: Adult Immunizations. - Social history:: Smoking status: . - Ebola Screening: : Patient denies travel to an Ebola-affected area in the 21 days before illness onset. - Family history:: not pertinent. ROS: 12:09 Constitutional: Negative for fever, chills, and weight loss, Eyes: Negative for injury, tono pain, redness, and discharge, ENT: Negative for injury, pain, and discharge, Neck: Negative for injury, pain, and swelling, Cardiovascular: Negative for chest pain, palpitations, and edema, Abdomen/GI: Negative for abdominal pain, nausea, vomiting, diarrhea, and constipation, Back: Negative for injury and pain, : Negative for injury, bleeding, discharge, and swelling, MS/Extremity: Negative for injury and deformity, Skin: Negative for injury, rash, and discoloration, Neuro: Negative for headache, weakness, numbness, tingling, and seizure, Psych: Negative for depression, anxiety, suicide ideation, homicidal ideation, and hallucinations, Allergy/Immunology: Negative for hives, rash, and allergies, Endocrine: Negative for neck swelling, polydipsia, polyuria, polyphagia, and marked weight changes, Hematologic/Lymphatic: Negative for swollen nodes, abnormal bleeding, and unusual bruising. 12:09 Respiratory: Positive for cough, shortness of breath. Exam: 12:09 Constitutional: This is a well developed, well nourished patient who is awake, alert, tono and in no acute distress. Head/Face: Normocephalic, atraumatic. Eyes: Pupils equal round and reactive to light, extra-ocular motions intact. Lids and lashes normal. Conjunctiva and sclera are non-icteric and not injected. Cornea within normal limits. Periorbital areas with no swelling, redness, or edema. ENT: Nares patent. No nasal discharge, no septal abnormalities noted. Tympanic membranes are normal and external auditory canals are clear. Oropharynx with no redness, swelling, or masses, exudates, or evidence of obstruction, uvula midline. Mucous membranes moist. Neck: Trachea midline, no thyromegaly or masses palpated, and no cervical lymphadenopathy. Supple, full range of motion without nuchal rigidity, or vertebral point tenderness. No Meningismus. Chest/axilla: Normal chest wall appearance and motion. Nontender with no deformity. No lesions are appreciated. Cardiovascular: Regular rate and rhythm with a normal S1 and S2. No gallops, murmurs, or rubs. Normal PMI, no JVD. No pulse deficits. Respiratory: Lungs have equal breath sounds bilaterally, clear to auscultation and percussion. No rales, rhonchi or wheezes noted. No increased work of breathing, no retractions or nasal flaring. Abdomen/GI: Soft, non-tender, with normal bowel sounds. No distension or tympany. No guarding or rebound. No evidence of tenderness throughout. Back: No spinal tenderness. No costovertebral tenderness. Full range of motion. Male : Normal genitalia with no discharge or lesions. Skin: Warm, dry with normal turgor. Normal color with no rashes, no lesions, and no evidence of cellulitis. Neuro: Awake and alert, GCS 15, oriented to person, place, time, and situation. Cranial nerves II-XII grossly intact. Motor strength 5/5 in all extremities. Sensory grossly intact. Cerebellar exam normal. Normal gait. Psych: Awake, alert, with orientation to person, place and time. Behavior, mood, and affect are within normal limits. 12:09 Musculoskeletal/extremity: DVT Exam: no pain, no tenderness, negative Homans' sign noted on exam, no appreciated bluish discoloration, no erythema, no increased warmth, swelling. Vital Signs: 11:45 BP 91 / 46; Pulse 83; Resp 17; Temp 99.7(O); Pulse Ox 97% on R/A; Weight 128.82 kg (R); tw2 Height 5 ft. 11 in. (180.34 cm); Pain 0/10; 12:45 BP 104 / 41; Pulse 78; Resp 15; Pulse Ox 98% on R/A; ca1 13:30 BP 109 / 65; Pulse 93; Resp 15 S; Pulse Ox 97% on R/A; ca1 14:34 BP 113 / 77; Pulse 80; Resp 14 S; Pulse Ox 99% on R/A; ca1 15:30 BP 110 / 67; Pulse 89; Resp 15 S; Pulse Ox 98% on R/A; ca1 11:45 Body Mass Index 39.61 (128.82 kg, 180.34 cm) tw2 MDM: 11:47 Patient medically screened. [facility] 12:11 Data reviewed: vital signs, nurses notes, lab test result(s), EKG, radiologic studies, tono plain films. 03/10 12:08 Order name: Basic Metabolic Panel [facility] 03/10 12:08 Order name: CBC with Diff [facility] 03/10 12:08 Order name: LFT's [facility] 03/10 12:08 Order name: Magnesium [facility] 03/10 12:08 Order name: NT PRO-BNP [facility] 03/10 12:08 Order name: PT-INR [facility] 03/10 12:08 Order name: Troponin (emerg Dept Use Only) [facility] 03/10 12:08 Order name: Blood Culture Adult (2) [facility] 03/10 12:08 Order name: Lactate [facility] 03/10 12:08 Order name: Procalcitonin [facility] 03/10 12:31 Order name: CBC with Automated Diff; Complete Time: 12:48 EDMS 03/10 12:39 Order name: Protime (+INR); Complete Time: 12:48 EDMS 03/10 12:40 Order name: Lactate; Complete Time: 12:48 EDMS 03/10 12:59 Order name: Procalcitonin; Complete Time: 13:37 EDMS 03/10 12:08 Order name: XRAY Chest (1 view) [facility] 03/10 12:08 Order name: EKG; Complete Time: 12:09 [facility] 03/10 12:08 Order name: Cardiac monitoring; Complete Time: 12:29 [facility] 03/10 12:08 Order name: EKG - Nurse/Tech; Complete Time: 12:42 [facility] 03/10 12:08 Order name: IV Saline Lock; Complete Time: 12:29 [facility] 03/10 12:08 Order name: Labs collected and sent; Complete Time: 12:29 [facility] 03/10 12:08 Order name: O2 Per Protocol; Complete Time: 12:29 [facility] 03/10 12:08 Order name: O2 Sat Monitoring; Complete Time: 12:29 [facility] 03/10 13:18 Order name: RAD; Complete Time: 13:37 EDMS 03/10 13:21 Order name: Basic Metabolic Panel; Complete Time: 13:37 EDMS 03/10 13:21 Order name: Liver (Hepatic) Function; Complete Time: 13:37 EDMS 03/10 13:21 Order name: Troponin (Emerg Dept Use Only); Complete Time: 13:37 EDMS 03/10 13:21 Order name: NT PRO-BNP; Complete Time: 13:37 EDMS 03/10 13:21 Order name: Magnesium; Complete Time: 13:37 EDMS Administered Medications: 13:45 Drug: Xopenex 2.5 mg Route: Inhalation; ca1 14:35 Follow up: Response: No adverse reaction; Marked relief of symptoms ca1 13:45 Drug: AtroVENT Aerosol 0.5 mg Route: Inhalation; ca1 Disposition: 03/10/19 13:56 Hospitalization ordered by Anmol Salazar for Inpatient Admission. Preliminary diagnosis are Dyspnea, End stage renal disease, Cardiomegaly, Unspecified combined systolic (congestive) and diastolic (congestive) heart failure, Tracheostomy status. - Bed requested for Telemetry/MedSurg (Inpatient). - Status is Inpatient Admission. ca1 - Condition is Fair. - Problem is new. - Symptoms have improved. UTI on Admission? No Signatures: Dispatcher [employer] EDOK Mickey Bro MD MD cha Wise, Tara RN RN tw2 Ana Barba Cheryl, RN RN ca1 Corrections: (The following items were deleted from the chart) 14:06 13:56 Hospitalization Ordered by Anmol Salazar MD for Observation. Preliminary diagnosis tono is Dyspnea; End stage renal disease; Cardiomegaly; Unspecified combined systolic (congestive) and diastolic (congestive) heart failure. Bed requested for Telemetry/MedSurg (observation). Status is Observation. Condition is Fair. Problem is new. Symptoms have improved. UTI on Admission? No. tono 15:04 14:06 03/10/2019 13:56 Hospitalization Ordered by Anmol Salazar MD for Inpatient eb Admission. Preliminary diagnosis is Dyspnea; End stage renal disease; Cardiomegaly; Unspecified combined systolic (congestive) and diastolic (congestive) heart failure. Bed requested for Telemetry/MedSurg (Inpatient). Status is Inpatient Admission. Condition is Fair. Problem is new. Symptoms have improved. UTI on Admission? No. tono 15:06 15:04 03/10/2019 13:56 Hospitalization Ordered by Anmol Salazar MD for Inpatient tono Admission. Preliminary diagnosis is Dyspnea; End stage renal disease; Cardiomegaly; Unspecified combined systolic (congestive) and diastolic (congestive) heart failure. Bed requested for Telemetry/MedSurg (Inpatient). Status is Inpatient Admission. Condition is Fair. Problem is new. Symptoms have improved. UTI on Admission? No. eb 15:30 15:06 03/10/2019 13:56 Hospitalization Ordered by Anmol Salazar MD for Inpatient ca1 Admission. Preliminary diagnosis is Dyspnea; End stage renal disease; Cardiomegaly; Unspecified combined systolic (congestive) and diastolic (congestive) heart failure; Tracheostomy status. Bed requested for Telemetry/MedSurg (Inpatient). Status is Inpatient Admission. Condition is Fair. Problem is new. Symptoms have improved. UTI on Admission? No. tono
[2019-03-10] MEDS ORDERED: MORPHINE 4 MG/ML SYR IV PRN (15:26)
[2019-03-10] MEDS ORDERED: ACETAMINOPHEN 325 MG TABLET PO PRN (15:26)
[2019-03-10] MEDS ORDERED: ONDANSETRON 4 MG/2 ML VIAL IV PRN (15:26)
[2019-03-10] MEDS ORDERED: NA CHLORIDE 0.9% 1,000 ML IV PRN (16:10)
[2019-03-10] MEDS: FUROSEMIDE 20 MG/ 2ML VIAL IV SCH (16:21)
[2019-03-10] MEDS ORDERED: ALBUMIN HUMAN 25% 50 ML IV SCH (17:00)
--- NOTE | 2019-03-10 22:55 | EKG ---
Test Date: 2019-03-10 Test Time: 12:36:03 Etcher Apprentice Photoengraving: SWG MEASUREMENT RESULTS: Intervals: Rate: 78 MI: 160 QRSD: 152 QT: 486 QTc: 554 [place]: P: MI: 160 QRS: 245 T: 156 INTERPRETIVE STATEMENTS: Atrial-sensed ventricular-paced rhythm tracking sinus rhythm Abnormal ECG Compared to ECG 12/21/2018 15:42:43 Sinus tachycardia is no longer present Electronically Signed On 03-10-19 22:54:29 GROUNDS CREW SUPERVISOR by Thomas Middleton
[2019-03-11] MEDS: ALBUTEROL 2.5 MG/3 ML NEB SOL NEB PRN (00:50)
[2019-03-11] MEDS: IPRATROPIUM BROM 0.5MG/2.5ML NEB PRN ×2 (00:50→23:06)
[2019-03-11 05:27] LABS: Absolute Lymphocytes (CBC) 1.2 K/uL (0.7-4.9); Basophils % 1.2 % (0-1.3); Hematocrit 33.3 % (39.6-49.0); MPV 9.8 fL (7.6-11.3); RBC Red Blood Cell Count 3.45 M/uL (4.33-5.43)
[2019-03-11 06:06] LABS: Potassium 3.9 mmol/L (3.5-5.1)
--- NOTE | 2019-03-11 08:37 | RAD REPORT ---
EXAM DESCRIPTION: Zhanna Single View03/11/2019 6:32 am CLINICAL HISTORY: Chest pain COMPARISON: March 10 FINDINGS: The upper lobe vessels are prominent indicative of pulmonary venous hypertension The lungs appear clear of acute infiltrate. The heart is moderately enlarged. Pacemaker leads are i n place. Tracheostomy tube is present
[2019-03-11] MEDS ORDERED: NITROGLYCERIN 0.4 MG/TAB SL PRN (08:41)
[2019-03-11] MEDS ORDERED: HOME MED 1 EA UNK (Amiodarone Hcl [Amiodarone Hcl] 100 MG) PO SCH (09:00)
[2019-03-11] MEDS: FUROSEMIDE 20 MG/ 2ML VIAL IV SCH ×2 (09:00→17:00)
[2019-03-11] MEDS: FERROUS SULFATE 325 MG TAB PO SCH (09:00)
[2019-03-11] MEDS: SEVELAMER CARBONATE 800 MG TABLET PO SCH ×4 (09:00→22:07)
[2019-03-11] MEDS ORDERED: HOME MED 1 EA UNK (Omeprazole [Omeprazole] 20 MG) PO SCH (09:00)
--- NOTE | 2019-03-11 09:38 | EKG ---
Test Date: 2019-03-11 Test Time: 01:55:36 Program Production Specialist: RT MEASUREMENT RESULTS: Intervals: Rate: 81 MN: 178 QRSD: 156 QT: 482 QTc: 559 [place]: P: -29 MN: 178 QRS: -54 T: 144 INTERPRETIVE STATEMENTS: Atrial-sensed ventricular-paced rhythm tracking sinus rhythm Compared to ECG 03/10/2019 12:36:03 no significant change from previous ECG Electronically Signed On 03-11-19 09:38:18 SHAFT SINKER by Thomas Middleton
[2019-03-11] MEDS: ASPIRIN 81 MG CHEWABLE TABLET PO SCH (10:30)
[2019-03-11] MEDS: GABAPENTIN 100 MG CAP PO SCH ×3 (10:31→22:07)
[2019-03-11] MEDS: [UNRECOGNIZED DRUG - REMARK] IH SCH ×2 (10:32→21:00)
[2019-03-11] MEDS: CLOPIDOGREL 75 MG TABLET PO SCH (10:32)
[2019-03-11] MEDS: predniSONE 10 MG TAB PO SCH (10:32)
[2019-03-11] MEDS: HEPARIN 5000 UNIT/ML 1 ML VIAL SQ SCH ×2 (10:32→22:07)
[2019-03-11] MEDS: allopurinoL 100 MG TAB PO SCH (10:32)
[2019-03-11] MEDS: CALCIUM CARBONATE CHEW 500MG TAB PO SCH ×2 (10:45→16:30)
--- NOTE | 2019-03-11 15:06 | HP ---
Date of Admission: 03/11/2019 Chief Complaint: Shortness of breath and cough. History Of Present Illness: This is an 79-year-old male patient who has end- stage renal disease and multiple other comorbidities, goes for hemodialysis on Thursday, Thursday, Thursday and he went for dialysis past week on Thursday, which is day before yesterday. Patient says that his weight had not changed before and after dialysis and he is still about 4 pounds over his dry weight, but reason why he is not getting more fluid out during dialysis session is because he is having lot of muscle cramping, so that is why they had to make some adjustment on his dialysis. In any case, as of yesterday morning, he started to have a dry cough and shortness of breath and this problem continued to get worse as the day progressed and he came into the emergency room. After he was evaluated, he was admitted to the hospital. He has chest pain from time to time, which is chronic and stable and it has not changed any. In fact, he had chest pain last night after he was admitted to the hospital. Yesterday at home, he had some nausea and vomiting. Denies any constipation or diarrhea. After he was evaluated, he was admitted in the hospital and he had his dialysis last night and he feels somewhat better after the dialysis. He will have an another dialysis today. Medications List: Reviewed. Review of Systems: Respiratory: As mentioned above. Cardiovascular: As mentioned above. All other systems reviewed and negative. Allergies: TO SHELLFISH, CIPRO, IODINE, AND DEMEROL. Social History: Negative for smoking, alcohol use. Family History: Significant for asthma, hypertension, breast cancer. Past Surgical History: AICD placement in June 2014, tracheostomy placement many years ago. Past Medical History: End-stage renal disease, on hemodialysis; COPD; chronic systolic congestive heart failure with low ejection fraction; anemia due to chronic kidney disease; sleep apnea; coronary artery disease; diabetes mellitus ; allergic rhinitis; osteoarthritis at multiple sites; diverticulosis; cervical spondylosis with radiculopathy; prostate cancer; gastroesophageal reflux disease ; aortic stenosis. His last stress test and echocardiogram done. Echocardiogram showed ejection fraction around 40% with moderate aortic stenosis and stress test was negative for stress-induced ischemia. Physical Examination: Vital Signs: Temperature 97.6, pulse 82, respiratory rate 18, blood pressure 124/58, oxygen saturation 99%. Height 5 feet 11 inches, weight 275 pounds. General: Awake, alert, oriented, not in distress. HEENT: Head atraumatic, normocephalic. Conjunctivae nonerythematous. Sclerae white. Mouth, no thrush or edema noted. Ears/Nose, no mass, lesion, discharge noted. Neck: Presence of tracheostomy tube. Lungs: Presence of scattered rhonchi. No crackles. No wheezing. Patient not using any accessory muscles of respiration. Heart: Normal heart sounds, no murmur or gallop. Abdomen: Soft, bowel sounds normal. No guarding, rigidity, tenderness, mass, hepatosplenomegaly, distention, or bruit noted. Extremities: Bilateral leg edema. Skin: No rash, ulcer, cellulitis. Lymphatics: No lymph node enlargement in neck, supraclavicular, infraclavicular region. Neuro: No focal neurological deficit. Chest: Unremarkable. External Genitalia: Deferred. Rectal: Deferred. Laboratory Data: Yesterday white count 6.4, hemoglobin 10.1, platelets 129. Today white count 7.2, hemoglobin 10.7, platelets 140. Yesterday sodium 138, potassium 4, chloride 101, bicarb 28, BUN 22, creatinine 6.12, glucose 140. Liver function tests unremarkable. Troponin 0.04. Procalcitonin 1.04. ProBNP 48,052. This morning sodium 139, potassium 3.9, chloride 101, bicarb 31, BUN 18 , creatinine 5, glucose 118. Chest x-ray, no acute abnormality detected. Heart moderately enlarged. EKG, atrial signs, ventricular paced rhythm. Impression: 1. Volume overload. 2. End-stage renal disease, on hemodialysis. 3. Chronic obstructive pulmonary disease. 4. Chronic systolic congestive heart failure. 5. Coronary artery disease. 6. Hypertension. 7. Type 2 diabetes mellitus. 8. Anemia due to chronic kidney disease. 9. Osteoarthritis, multiple sites. 10. Obstructive sleep apnea. 11. Diverticulosis. 12. Gastroesophageal reflux disease. Plan: Admit patient to hospital for further evaluation and management of this problem. The patient is appropriate for inpatient and is expected to spend 2 midnights in hospital. Yeast Maker was consulted yesterday and patient had his first dialysis session last night for this admission and he will have a second session today. I will re-evaluate him tomorrow. Hopefully, we might be able to discharge him to go home tomorrow depending on his condition. His shortness of breath and cough has improved after dialysis yesterday, but his not back to his normal self yet. Home medications will be continued per order and I will see him tomorrow for followup. ODESSA/PATRICK Voice ID: [id number] MTDD
--- NOTE | 2019-03-11 18:48 | CON ---
Date of Consultation: 03/11/2019 Reason For Consultation: Elevated BUN and creatinine, over-volume. History Of Present Illness: This is a pleasant 79-year-old gentleman with significant past medical h istory of end-stage renal disease, on hemodialysis Thursday, Thursday, Thursday at [facility], hypertension, hyperlipidemia, coronary artery disease complicated with congestive heart failur e, COPD, status post trach, patient was in his regular state of health. Apparently had shortness of breath on the holiday for that reason, reported to the hospital. In the hospital, found to have in t he ER, over-volume. For that reason, we have been consulted. We took the patient for urgent dialysi s. We managed to remove 2.5 L yesterday. Patient's shortness of breath was slightly better, but sti ll short winded. Patient denied any fever, any chills. Has chronic cough. Allergies: ALLERGY TO IODINE, CIPROFLOXACIN, MEPERIDINE. Past Surgical History: Include: 1.AV fistula creation. 2.Tracheostomy. Family History: Positive for hypertension and diabetes. Past Medical History: Include: 1.COPD. 2.Hypertension. 3.Hyperlipidemia. 4.End-stage renal disease, on hemodialysis Thursday, Thursday, Thursday. Review of Systems: Head and Neck: No red eye. No ear pain. GI: No nausea. No vomiting. : No polyuria. No dysuria. No hematuria. BIAS BINDING CUTTER: Not applicable. Respiratory: Has shortness of breath. Has cough. Cardiovascular: Has leg swelling. Endocrine: No polydipsia. Skin: No rash. Neuro: Has neuropathy. Musculoskeletal: Low back pain. Physical Examination: GENERAL: When I saw the patient, the patient was sitting in the bed with slightly shortness of breat h. Chest: Faint crackles in bilateral base, more prominent on the left side. Heart: S1, S2. Systolic murmur. Has a tracheostomy. Abdomen: Morbidly obese. Extremities: +1 edema. Neurologic: Alert, oriented x3. No focal. Vital Signs: Blood pressure 105/58, pulse of 79, afebrile. Current Medications: The patient is on include: 1.Plavix. 2.Ferrous sulfate. 3.Heparin. 4.Calcium carbonate with each meal. 5.Lasix 60 b.i.d. 6.Renvela. 7.Zofran. 8.Pantoprazole. 9.Allopurinol. 10.Breathing treatment. 11.Amiodarone. Laboratory Data: Sodium 139, potassium 3.9, bicarb 31, BUN 18, creatinine 5, calcium 9.4. H and H 1 0.7/33.3, WBC 7.2. Assessment And Plan: 1.End-stage renal disease, over-volume. We dialyzed the patient yesterday. We will do another sess ion of dialysis today. We will plan to challenge the patient. The patient is going to be dialyzed o n low temperature sodium module and low blood flow to establish better ultrafiltration and we will fo llow up. 2.Hypertension, currently hypotension. Keep holding all blood pressure medication except Lasix. 3.Secondary hyperparathyroid. Continue Renvela and calcium carbonate. 4.Anemia of chronic kidney disease, stable. We will follow up protocol. 5.Chronic obstructive pulmonary disease as by primary. 6.Coronary artery disease with congestive heart failure, as above. We will challenge the patient to day. Patient is going to be cleared from the renal standpoint for discharge planning after dialysis if okay with the primary. ROLANDO/PATRICK Voice ID: [id number] Report ID: [id number]
[2019-03-11] MEDS: ACETYLCYST 20% 4 ML VIAL IH SCH (20:00)
[2019-03-12 04:58] VITALS: BMI 37.7
[2019-03-12] MEDS ORDERED: PANTOPRAZOLE 40MG TABLET PO SCH (06:30)
[2019-03-12] MEDS: ACETYLCYST 20% 4 ML VIAL IH SCH (08:05)
[2019-03-12] MEDS: IPRATROPIUM BROM 0.5MG/2.5ML NEB PRN (08:05)
[2019-03-12] MEDS: ALBUTEROL 2.5 MG/3 ML NEB SOL NEB PRN (08:05)
[2019-03-12] MEDS: CALCIUM CARBONATE CHEW 500MG TAB PO SCH ×2 (08:48→12:31)
[2019-03-12] MEDS: FUROSEMIDE 20 MG/ 2ML VIAL IV SCH (08:49)
[2019-03-12] MEDS: HEPARIN 5000 UNIT/ML 1 ML VIAL SQ SCH (08:49)
[2019-03-12] MEDS: ASPIRIN 81 MG CHEWABLE TABLET PO SCH (08:50)
[2019-03-12] MEDS: CLOPIDOGREL 75 MG TABLET PO SCH (08:50)
[2019-03-12] MEDS: GABAPENTIN 100 MG CAP PO SCH (08:50)
[2019-03-12] MEDS: allopurinoL 100 MG TAB PO SCH (08:51)
[2019-03-12] MEDS: predniSONE 10 MG TAB PO SCH (08:51)
[2019-03-12] MEDS: FERROUS SULFATE 325 MG TAB PO SCH (08:51)
[2019-03-12] MEDS: SEVELAMER CARBONATE 800 MG TABLET PO SCH ×2 (08:51→12:30)
[2019-03-12] MEDS: [UNRECOGNIZED DRUG - REMARK] IH SCH (08:52)
[2019-03-12] MEDS ORDERED: AMIODARONE HCL 200 MG TAB PO SCH (09:00)
[2019-03-12 09:14] VITALS: O2SAT 100
--- NOTE | 2019-03-12 13:40 | PN ---
Date of Progress Note: 03/12/2019 Subjective: Patient was admitted with overall volume shortness of breath. Patient was dialyzed back -to-back in 2 days. Patient feeling better. No nausea. No vomiting. Physical Examination: Vital Signs: The patient's blood pressure 91/52, pulse of 78, afebrile. We managed to remove yester day 3.6 L. Chest: Clear to auscultation. Heart: S1, S2. Systolic murmur. Neck: Tracheostomy. Abdomen: Soft, nontender. Extremities: Trace edema. Laboratory Data: H and H 10.7/33.3. Sodium 139, potassium 3.9, bicarb 31, BUN 18, creatinine 5, ever cium 9.4. BNP of 40,775. Current Medications: Include albuterol, Plavix, calcium carbonate, amiodarone, nitroglycerin, Renvel a, Lasix 60 b.i.d., Zofran, prednisone. Assessment And Plan: 1.End-stage renal disease, over volume, status post daily dialysis [id number], responds very well. We will continue current treatment for the patient for dialysis Thursday, Thursday, Thursday. 2.Hypertension, currently hypotension. Keep holding all blood pressure medications except Lasix. 3.Anemia of chronic kidney disease. Continue erythropoiesis-stimulating agent. 4.Secondary hyperparathyroid. Continue binder. 5.Chronic obstructive pulmonary disease exacerbation. Continue with the Primary. 6.Patient cleared from the renal standpoint for discharge planning to follow up at the dialysis [facility]. GERI Voice ID: [id number] Report ID: [id number]
[2019-03-12 16:03] VITALS: BP 88/52; TEMP 97.7
[2019-03-12] MEDS ORDERED: FLUTICASONE 50MCG NASAL SPRAY NAS SCH ×2 (21:00)
--- NOTE | 2019-03-12 23:45 | DS ---
Date of Discharge: 03/12/2019 Disposition: Discharged to go home. Physical Examination: HEENT: Unremarkable. Lungs: Clear to auscultation. Heart: Heart sounds normal. Abdomen: Soft, bowel sounds normal. No guarding, rigidity, tenderness, or distention. Extremities: No leg edema. Laboratory Data: Labs done during this hospitalization, initial white count 6.4, hemoglobin 10.1, pl atelets 129. Yesterday, white count 7.2, hemoglobin 10.7, platelets 140. Initial sodium 138, potass ium 4, chloride 101, bicarb 28, BUN 22, creatinine 6.12, glucose 140. Repeat sodium yesterday 139, p otassium 3.9, chloride 101, bicarb 31, BUN 18, creatinine 5.0, glucose 118, troponin 0.04. Hospital Course: An 79-year-old male patient with multiple comorbidities including end-stage renal d cinthia, on hemodialysis, came into the emergency room with complaints of shortness of breath and coug h. Please see dictated H and P for more information. Patient has been having some leg cramping, mus andreina cramping during dialysis, so lately he is not achieving his ideal dry weight and he is about 4 to 5 pounds heavier than his target dry weight as he reports. His last dialysis was on Thursday and . He had complaints of shortness of breath, cough, and he came into emergency room. No fever . No expectoration. After he came into the emergency room, he was noted to have fluid overload prob heike and was admitted to the hospital. Food Service Assistant was consulted. Patient had dialysis nig and yesterday and overall he has felt better. His shortness of breath and cough problem has impro nguyen very well and he feels like he is back to his baseline again. No complaints or problems reported today and we will plan to discharge him to go home today if okay with plant electrical engineer. Final Diagnoses: 1.Volume overload. 2.End-stage renal disease, on hemodialysis. 3.Chronic obstructive pulmonary disease. 4.Chronic systolic congestive heart failure. 5.Coronary artery disease. 6.Hypertension. 7.Type 2 diabetes mellitus. 8.Anemia due to chronic kidney disease. 9.Osteoarthritis, multiple sites. 10.Obstructive sleep apnea. 11.Diverticulosis. 12.Gastroesophageal reflux disease. Discharge Medications And Instructions: 1.Continue all prior home medications. 2.Follow up at my office per scheduled appointment. 3.Patient to go for dialysis per his schedule. ODESSA/PATRICK Voice ID: [id number] Report ID: [id number]
[2019-03-14 02:52] LABS: HBsAG Nonreactive (Nonreactive)
== END 2019-03-12 13:12 | disposition home or self-care (01) | DRG 640 ==
LOC: ER 11:37 → ERHOLD 14:00 → 2ND 15:23
PROVIDERS: ADMIT Internal Medicine; ATTEND Internal Medicine
PROC: 5A1D70Z Performance of Urinary Filtration, Intermittent, Less than 6 Hours Per Day (ICD-10-PCS; principal; 2019-03-11)
DX: E86.9 Volume depletion, unspecified (principal); N18.6 End stage renal disease; I13.2 Hypertensive heart and chronic kidney disease with heart failure and with stage 5 chronic kidney disease, or end stage renal disease; I50.22 Chronic systolic (congestive) heart failure; J44.1 Chronic obstructive pulmonary disease with (acute) exacerbation; N25.81 Secondary hyperparathyroidism of renal origin; E11.22 Type 2 diabetes mellitus with diabetic chronic kidney disease; I25.10 Atherosclerotic heart disease of native coronary artery without angina pectoris; D63.1 Anemia in chronic kidney disease; M47.22 Other spondylosis with radiculopathy, cervical region; I35.0 Nonrheumatic aortic (valve) stenosis; K21.9 Gastro-esophageal reflux disease without esophagitis; K57.90 Diverticulosis of intestine, part unspecified, without perforation or abscess without bleeding; G47.33 Obstructive sleep apnea (adult) (pediatric); Z85.46 Personal history of malignant neoplasm of prostate; Z99.2 Dependence on renal dialysis
CPT/HCPCS: 36415; 71045; 80048; 80076; 82947; 83605; 83735; 83880; 84145; 84484; 85025; 85610; 86317; 86704; 86706; 87040; 87340; 90935; 93005; 94640; 99285; J1644; J1940; J7512; P9047

== ENCOUNTER 2019-03-25 14:24 | Inpatient (IN) | payer OTHER, MEDICARE ==
--- OUTSIDE RECORDS SUMMARY | 2019-03-25 14:27 | XMS REPORT ---
:1940 [facility] Address [address] [place] [address] Dr. Vargas [address] [place] [id number] Care Team Providers Name Role Phone Unavailable Unavailable Unavailable Problems This patient has no known problems. Allergies, Adverse Reactions, Alerts This patient has no known allergies or adverse reactions. Medications This patient has no known medications.
[2019-03-25] MEDS ORDERED: MORPHINE 4 MG/ML SYR ONE (15:25)
[2019-03-25] MEDS ORDERED: NA CHLORIDE 0.9% 500 ML ONE (15:38)
[2019-03-25 16:02] LABS: Absolute Lymphocytes (CBC) 1.3 K/uL (0.7-4.9); Basophils % 0.5 % (0-1.3); Hematocrit 35.2 % (39.6-49.0); Lymphocytes % 7.2 % (15.3-44.8); MPV 10.2 fL (7.6-11.3); RBC Red Blood Cell Count 3.68 M/uL (4.33-5.43)
[2019-03-25 16:12] LABS: Protime INR 1.12
--- NOTE | 2019-03-25 16:12 | RAD REPORT ---
EXAM DESCRIPTION: RAD - Chest Single View - 03/25/2019 3:43 pm CLINICAL HISTORY: Wound infection, preoperative chest exam COMPARISON: March 11 TECHNIQUE: AP portable chest image was obtained 1524 hours . FINDINGS: No focal lung parenchymal process. Interstitial pattern matches comparison. No trach tube or defibrillator abnormality evident. Heart size is prominent but stable. No significant failure or v olume overload. No measurable pleural effusion and no pneumothorax. No acute bony abnormality seen. N o acute aortic findings suspected. IMPRESSION: No acute cardiopulmonary process. No suspicious change from comparison.
--- NOTE | 2019-03-25 16:17 | ER ---
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 Pt was told he has an infection on Thursday and was given PO Bactrim. Transition of care: patient was not received from another setting of care. Onset of symptoms was March 20, 2019. Risk Assessment: Do you want to hurt yourself or someone else? Patient reports no desire to harm self or others. Initial Sepsis Screen: Does the patient meet any 2 criteria? RR > 20 per min. HR > 90 bpm. Does the patient have a suspected source of infection? Yes: Skin breakdown/wound. Care prior to arrival: None. 14:37 Acuity: KARLENE 3 ss 14:37 Method Of Arrival: Ambulatory ss Historical: - Allergies: 14:39 Cipro; ss 14:39 Ciprofloxacin; ss 14:39 Demerol; ss 14:39 Iodine; ss 14:39 Meperidine; ss 14:39 SHELLFISH; ss - PMHx: 14:39 CHF; COPD; Diabetes - NIDDM; Dialysis; M-W-F; GERD; ESRD; Gout; Hypertension; ss Pacemaker; with defib; - Immunization history:: Adult Immunizations unknown. - Social history:: Smoking status: Patient/guardian denies using tobacco. - Ebola Screening: : Patient denies exposure to infectious person Patient denies travel to an Ebola-affected area in the 21 days before illness onset. Screenin:40 Abuse screen: Denies threats or abuse. Denies injuries from another. Nutritional ca1 screening: No deficits noted. Tuberculosis screening: No symptoms or risk factors identified. Fall Risk IV access (20 points). Assessment: 14:40 General: Appears in no apparent distress. comfortable, Behavior is calm, cooperative, ca1 appropriate for age. Pain: Complains of pain in plantar aspect of right fifth toe Pain radiates to right foot Pain currently is 8 out of 10 on a pain scale. Pain began a few days. Neuro: Level of Consciousness is awake, alert, obeys commands, Oriented to person, place, time, situation. Cardiovascular: Heart tones S1 S2 present Capillary refill < 3 seconds Patient's skin is warm and dry. Rhythm is Respiratory: Airway is patent Respiratory effort is even, unlabored, Respiratory pattern is regular, symmetrical, Breath sounds are clear bilaterally. Respiratory: Airway via trache. GI: Abdomen is round non-distended, Bowel sounds present X 4 quads. Abd is soft and non tender X 4 quads. : No deficits noted. No signs and/or symptoms were reported regarding the genitourinary system. EENT: No deficits noted. No signs and/or symptoms were reported regarding the EENT system. Derm: Skin is healthy with good turgor, Skin is dry, Skin is pink, warm \\T\\ dry. Wound noted right foot Wound is purulent discharge noted. Warm and tender to touch. Musculoskeletal: Circulation, motion, and sensation intact. Capillary refill. 15:57 Reassessment: Patient appears in no apparent distress at this time. No changes from ca1 previously documented assessment. Patient is alert, oriented x 3, equal unlabored respirations, skin warm/dry/pink. 16:31 Reassessment: Pt states, "Can you give me a breathing treatment? I missed my 1pm tx ca1 today. I do albuterol and Atrovent every 4 hours". Notified provider. Provider says okay. 17:36 Reassessment: Patient appears in no apparent distress at this time. Patient is alert, ca1 oriented x 3, equal unlabored respirations, skin warm/dry/pink. Vital Signs: 14:36 BP 102 / 84; Pulse 101; Resp 21; Pulse Ox 98% on R/A; Weight 113.4 kg; Pain 10/10; ss 15:00 BP 98 / 52; Pulse 91; Resp 20 S; Pulse Ox 99% on R/A; ca1 15:47 BP 106 / 60; Pulse 94; Resp 20 S; Pulse Ox 99% on R/A; ca1 15:59 BP 110 / 69; Pulse 93; Resp 14 S; Pulse Ox 100% on R/A; ca1 16:39 BP 100 / 57; Pulse 78; Resp 21 S; Temp 98.3(O); Pulse Ox 99% on Nebulizer Mask; ca1 17:36 BP 110 / 58; Pulse 78; Resp 18 S; Pulse Ox 98% on R/A; ca1 ED Course: 14:26 Patient arrived in ED. as 14:26 Garcia Salazar MD is Private Physician. as 14:28 Aparna Ibrahim, SHAI is Primary Nurse. ca1 14:36 Arm band placed on right wrist. ss 14:38 Triage completed. ss 14:40 Patient has correct armband on for positive identification. Bed in low position. Call ca1 light in reach. Side rails up X 1. library monitor on. Pulse ox on. NIBP on. Warm blanket given. 14:55 Gracie Stratton FNP-C is PHCP. snw 14:55 Mickey Bro MD is Attending Physician. snw 15:25 Inserted saline lock: 22 gauge in right forearm, using aseptic technique. ca1 15:44 Chest Single View XRAY In Process Unspecified. EDMS 15:44 Foot Right 3 View XRAY In Process Unspecified. EDMS 15:55 Initial lab(s) drawn, by laborer golf course, sent to lab. First set of blood cultures drawn by [facility] lab staff. 16:14 Garcia Salazar MD is Hospitalizing Provider. snw 18:03 No provider procedures requiring assistance completed. Patient admitted, IV remains in ca1 place. Administered Medications: 15:45 Drug: NS 0.9% 500 ml Route: IV; Rate: bolus; Site: right forearm; ca1 18:02 Follow up: Response: No adverse reaction; IV Status: Completed infusion; IV Intake: ca1 500ml 16:04 Drug: morphine 4 mg {Note: RASS - 0.} Route: IVP; Site: right forearm; ca1 16:24 Follow up: Response: No adverse reaction; Pain is decreased; RASS: Alert and Calm (0) ca1 16:24 Drug: Zosyn 3.375 grams Route: IVPB; Infused Over: 60 mins; Site: right forearm; ca1 18:03 Follow up: Response: No adverse reaction; IV Status: Completed infusion ca1 16:36 Drug: Albuterol 2.5 mg Route: Inhalation; ca1 16:36 Drug: AtroVENT Aerosol 0.5 mg Route: Inhalation; ca1 17:53 Drug: vancoMYCIN 1.5 grams Route: IVPB; Rate: calculated rate; Site: right antecubital; ss 18:02 Follow up: Response: No adverse reaction; IV Status: Infusion continued upon admission ca1 Intake: 18:02 IV: 500ml; Total: 500ml. ca1 Outcome: 16:15 Decision to Hospitalize by Provider. snw 18:04 Admitted to Tele accompanied by tech, via wheelchair, room 411, with chart, Report ca1 called to SHAI Jones 18:04 Condition: stable 18:04 Instructed on the need for admit. 18:05 Patient left the ED. ca1 Signatures: Dispatcher [employer] EDGracie Sellers, HOLA-C BLEACH BOILER PACKER-Heydi [facility], RN RN ss Aparna Ibrahim RN RN ca1 Corrections: (The following items were deleted from the chart) 15:51 14:40 Cardiovascular: Heart tones S1 S2 present Capillary refill < 3 seconds Patient's ca1 skin is warm and dry. Rhythm is regular ca1 15:55 14:40 Derm: Skin is healthy with good turgor, Skin is dry, Skin is pink, warm \\T\\ dry. ca1ca1 15:56 15:40 Inserted saline lock: 22 gauge in right forearm, using aseptic technique. ca1 ca1
--- NOTE | 2019-03-25 16:17 | EDPHYS ---
Physician Documentation [facility] Name: Sergio Perez Age: 79 yrs Sex: Male : 1940 Arrival Date: 03/25/2019 Time: 14:26 Bed 14 Private MD: Garcia Salazar C ED Physician Mickey Bro HPI: 03/25 15:14 This 79 yrs old Black Male presents to ER via Ambulatory with complaints of toe pain. snw 15:14 Onset: The symptoms/episode began/occurred suddenly, and became persistent. Associated snw signs and symptoms: Pertinent positives: tenederness, mild erythema. The patient has not experienced similar symptoms in the past. It is unknown whether or not the patient has recently seen a physician. Historical: - Allergies: 14:39 Cipro; ss 14:39 Ciprofloxacin; ss 14:39 Demerol; ss 14:39 Iodine; ss 14:39 Meperidine; ss 14:39 SHELLFISH; ss - PMHx: 14:39 CHF; COPD; Diabetes - NIDDM; Dialysis; M-W-F; GERD; ESRD; Gout; Hypertension; ss Pacemaker; with defib; - Immunization history:: Adult Immunizations unknown. - Social history:: Smoking status: Patient/guardian denies using tobacco. - Ebola Screening: : Patient denies exposure to infectious person Patient denies travel to an Ebola-affected area in the 21 days before illness onset. ROS: 15:13 Constitutional: Negative for fever, chills, and weight loss, Eyes: Negative for injury, snw pain, redness, and discharge, ENT: Negative for injury, pain, and discharge, Neck: Negative for injury, pain, and swelling, Cardiovascular: Negative for chest pain, palpitations, and edema, Respiratory: Negative for shortness of breath, cough, wheezing, and pleuritic chest pain, Abdomen/GI: Negative for abdominal pain, nausea, vomiting, diarrhea, and constipation, Back: Negative for injury and pain, : Negative for injury, bleeding, discharge, and swelling, Skin: Negative for injury, rash, and discoloration, Neuro: Negative for headache, weakness, numbness, tingling, and seizure. 15:13 MS/extremity: Positive for pain, of the lateral plantar right foot. Exam: 15:11 Constitutional: This is a well developed, well nourished patient who is awake, alert, snw and in no acute distress. Head/Face: Normocephalic, atraumatic. Eyes: Pupils equal round and reactive to light, extra-ocular motions intact. Lids and lashes normal. Conjunctiva and sclera are non-icteric and not injected. Cornea within normal limits. Periorbital areas with no swelling, redness, or edema. 15:11 Neck: Trachea midline, no thyromegaly or masses palpated, and no cervical lymphadenopathy. Supple, full range of motion without nuchal rigidity, or vertebral point tenderness. No Meningismus. Chest/axilla: Normal chest wall appearance and motion. Nontender with no deformity. No lesions are appreciated. 15:11 Respiratory: Lungs have equal breath sounds bilaterally, clear to auscultation and percussion. No rales, rhonchi or wheezes noted. No increased work of breathing, no retractions or nasal flaring. Abdomen/GI: Soft, non-tender, with normal bowel sounds. No distension or tympany. No guarding or rebound. No evidence of tenderness throughout. Back: No spinal tenderness. No costovertebral tenderness. Full range of motion. Skin: Warm, dry with normal turgor. Normal color with no rashes, no lesions, and no evidence of cellulitis. Neuro: Awake and alert, GCS 15, oriented to person, place, time, and situation. Cranial nerves II-XII grossly intact. Motor strength 5/5 in all extremities. Sensory grossly intact. Cerebellar exam normal. Normal gait. Psych: Awake, alert, with orientation to person, place and time. Behavior, mood, and affect are within normal limits. 15:11 ENT: trach 16 yrs. 15:11 Cardiovascular: Rate: normal, Rhythm: irregular, Heart sounds: normal, Edema: pedal edema, that is mild. 15:11 Musculoskeletal/extremity: Extremities: grossly normal except: noted in the arch of right foot: pain, swelling, tenderness, ROM: no acute changes, Circulation is intact in all extremities. Sensation intact. Vital Signs: 14:36 BP 102 / 84; Pulse 101; Resp 21; Pulse Ox 98% on R/A; Weight 113.4 kg; Pain 10/10; ss 15:00 BP 98 / 52; Pulse 91; Resp 20 S; Pulse Ox 99% on R/A; ca1 15:47 BP 106 / 60; Pulse 94; Resp 20 S; Pulse Ox 99% on R/A; ca1 15:59 BP 110 / 69; Pulse 93; Resp 14 S; Pulse Ox 100% on R/A; ca1 16:39 BP 100 / 57; Pulse 78; Resp 21 S; Temp 98.3(O); Pulse Ox 99% on Nebulizer Mask; ca1 17:36 BP 110 / 58; Pulse 78; Resp 18 S; Pulse Ox 98% on R/A; ca1 MDM: 14:55 Patient medically screened. snw 16:15 Data reviewed: vital signs, nurses notes. Data interpreted: Pulse oximetry: on room air snw is 100 %. Interpretation: normal. Counseling: I had a detailed discussion with the patient and/or guardian regarding: the historical points, exam findings, and any diagnostic results supporting the discharge/admit diagnosis, lab results, radiology results, the need for further work-up and treatment in the hospital. Physician consultation: Mickey Bro MD was called at 16:17. 16:50 Physician consultation: Garcia Salazar MD was called at 16:50, was contacted at 16:50, snw regarding admission, to the telemetry unit. inpatient, would like consultation with Dr. Dr. Guajardo and Nephrology, would like further tests performed, MRI, Right foot. 03/25 14:56 Order name: Blood Culture Adult (2) snw 03/25 14:56 Order name: C-Reactive Protein; Complete Time: 16:33 snw 03/25 14:56 Order name: T\T\S snw 03/25 14:56 Order name: Basic Metabolic Panel; Complete Time: 16:33 snw 03/25 14:56 Order name: CBC with Diff; Complete Time: 16:12 snw 03/25 14:56 Order name: Ckmb; Complete Time: 16:33 snw 03/25 14:56 Order name: CPK; Complete Time: 16:33 snw 03/25 14:56 Order name: Lactate; Complete Time: 16:33 snw 03/25 14:56 Order name: LFT's; Complete Time: 16:33 snw 03/25 14:56 Order name: Lipase; Complete Time: 16:33 snw 03/25 14:56 Order name: Procalcitonin; Complete Time: 16:45 snw 03/25 14:56 Order name: Protime (+inr) snw 03/25 14:56 Order name: Ptt, Activated snw 03/25 14:56 Order name: Troponin (emerg Dept Use Only); Complete Time: 16:33 snw 03/25 14:56 Order name: Chest Single View XRAY; Complete Time: 16:33 snw 03/25 14:56 Order name: Accucheck; Complete Time: 15:51 snw 03/25 14:56 Order name: Cardiac monitoring; Complete Time: 15:30 snw 03/25 14:56 Order name: EKG - Nurse/Tech; Complete Time: 16:06 snw 03/25 14:56 Order name: IV Saline Lock - Large Bore; Complete Time: 15:30 snw 03/25 14:56 Order name: Labs collected and sent; Complete Time: 15:30 snw 03/25 14:56 Order name: O2 Per Protocol; Complete Time: 15:30 snw 03/25 14:56 Order name: Foot Right 3 View XRAY; Complete Time: 16:49 snw 03/25 15:59 Order name: Glucose, Ancillary Testing; Complete Time: 16:04 EDMS 03/25 16:57 Order name: Foot Right Wo Cont EDMS 03/25 14:56 Order name: O2 Sat Monitoring; Complete Time: 15:30 snw 03/25 16:38 Order name: Recheck VS: with temp; Complete Time: 16:39 snw Administered Medications: 15:45 Drug: NS 0.9% 500 ml Route: IV; Rate: bolus; Site: right forearm; ca1 18:02 Follow up: Response: No adverse reaction; IV Status: Completed infusion; IV Intake: ca1 500ml 16:04 Drug: morphine 4 mg {Note: RASS - 0.} Route: IVP; Site: right forearm; ca1 16:24 Follow up: Response: No adverse reaction; Pain is decreased; RASS: Alert and Calm (0) ca1 16:24 Drug: Zosyn 3.375 grams Route: IVPB; Infused Over: 60 mins; Site: right forearm; ca1 18:03 Follow up: Response: No adverse reaction; IV Status: Completed infusion ca1 16:36 Drug: Albuterol 2.5 mg Route: Inhalation; ca1 16:36 Drug: AtroVENT Aerosol 0.5 mg Route: Inhalation; ca1 17:53 Drug: vancoMYCIN 1.5 grams Route: IVPB; Rate: calculated rate; Site: right antecubital; ss 18:02 Follow up: Response: No adverse reaction; IV Status: Infusion continued upon admission ca1 Disposition: 03/25/19 16:15 Hospitalization ordered by Garcia Salazar for Inpatient Admission. Preliminary diagnosis are Diabetes mellitus due to underlying condition with foot ulcer - infected, Hypotension of hemodialysis. - Bed requested for Telemetry/MedSurg (Inpatient). - Status is Inpatient Admission. ca1 - Condition is Stable. - Problem is an acute exacerbation. - Symptoms have worsened. UTI on Admission? No Addendum: 03/28/2019 10:12 Co-signature as Attending Physician, Mickey Bro MD I agree with the assessment and c corona plan of care. Signatures: Dispatcher [employer] EDMickey Downs MD MD cha Therrien, Shelly, COMMUNITY MIDWIFE-C COMMUNITY MIDWIFE-Csnw Medina Cuenca RN RN Abdiel Fong RN RN ja1 Aparna Ibrahim RN RN ca1 Corrections: (The following items were deleted from the chart) 03/25 17:07 16:15 Hospitalization Ordered by A Martin CHOWDHURY for Inpatient Admission. Preliminary ja1 diagnosis is Diabetes mellitus due to underlying condition with foot ulcer - infected; Hypotension of hemodialysis. Bed requested for Telemetry/MedSurg (Inpatient). Status is Inpatient Admission. Condition is Stable. Problem is an acute exacerbation. Symptoms have worsened. UTI on Admission? No. snw 18:05 17:07 03/25/2019 16:15 Hospitalization Ordered by A Martin CHOWDHURY for Inpatient Admission. ca1 Preliminary diagnosis is Diabetes mellitus due to underlying condition with foot ulcer - infected; Hypotension of hemodialysis. Bed requested for Telemetry/MedSurg (Inpatient). Status is Inpatient Admission. Condition is Stable. Problem is an acute exacerbation. Symptoms have worsened. UTI on Admission? No. ja1
[2019-03-25] MEDS ORDERED: PIPER/TAZO/NS 3.375gm 3.375 GM/100 ML BAG ONE (16:20)
[2019-03-25 16:25] LABS: Albumin 3.5 g/dL (3.4-5.0); Bilirubin Direct 0.2 mg/dL (0-0.2); Bilirubin Total 0.5 mg/dL (0.2-1.0); CKMB Creatine Kinase MB 2.1 ng/mL (0.3-3.6); Potassium 3.8 mmol/L (3.5-5.1); Protein, Total 7.9 g/dL (6.4-8.2); Troponin (Emerg Dept Use Only) 0.07 ng/mL (0.0-0.045)
[2019-03-25] MEDS ORDERED: ALBUTEROL 2.5 MG/3 ML NEB SOL ONE (16:28)
[2019-03-25] MEDS ORDERED: IPRATROPIUM BROM 0.5MG/2.5ML ONE (16:29)
--- NOTE | 2019-03-25 16:37 | RAD REPORT ---
EXAM DESCRIPTION: RAD - Foot Right 3 View - 03/25/2019 3:43 pm CLINICAL HISTORY: Soft tissue wound, right fifth toe pain and swelling COMPARISON: None. FINDINGS: The bones are osteopenic. No acute fractures seen. No dislocation or periosteal reaction. No bone destructive changes seen on plain film. Soft tissue swelling is present around the fifth toe and fifth MTP joint. Air densities are present in the soft tissues lateral to the fifth MTP joint. Th is is potentially air on the skin surface of the wound rather than subcutaneous air. No foreign body is present. No plantar spur or Achilles spur. Arterial tree calcifications are present. IMPRESSION: Osteopenic changes are present but no bone destructive process seen. Soft tissue wound and soft tissue swelling in the fifth toe and fifth MTP joint region. Osteomyelitis can exist prior to radiographic bone destruction.
[2019-03-25] MEDS ORDERED: VANCOMYCIN 1.5 GM in NA CHLORIDE 0.9% 500 ML IVPB ONE (17:00)
[2019-03-25 18:31] VITALS: BMI 35.9
[2019-03-25] MEDS ORDERED: GLUCAGON 1 MG/VIAL IM PRN (18:43)
[2019-03-25] MEDS ORDERED: D50W 25 GM/50 ML SYRINGE/VIAL IV PRN (18:43)
[2019-03-25] MEDS: INSULIN -REGULAR HUMAN 50 UNIT/0.5 ML ML SQ SCH ×2 (18:43→20:05)
[2019-03-25] MEDS ORDERED: ACETAMINOPHEN 500 MG TAB PO PRN (18:43)
[2019-03-25] MEDS: MORPHINE 4 MG/ML SYR IV PRN (20:06)
[2019-03-25] MEDS: ALBUTEROL 2.5 MG/3 ML NEB SOL NEB SCH ×2 (20:50→22:43)
[2019-03-25] MEDS: IPRATROPIUM BROM 0.5MG/2.5ML NEB SCH ×2 (20:50→22:43)
[2019-03-25] MEDS ORDERED: PIPER/TAZO/NS 3.375gm 3.375 GM/100 ML BAG IVPB SCH (21:00)
[2019-03-25] MEDS ORDERED: VANCOMYCIN 1 GM in NA CHLORIDE 0.9% 250 ML IVPB SCH (21:00)
[2019-03-25] MEDS ORDERED: VANCOMYCIN 2 GM in NA CHLORIDE 0.9% 500 ML IVPB ONE (22:00)
[2019-03-26] MEDS: MORPHINE 4 MG/ML SYR IV PRN ×3 (03:01→17:16)
[2019-03-26] MEDS: IPRATROPIUM BROM 0.5MG/2.5ML NEB SCH ×6 (03:30→22:43)
[2019-03-26] MEDS: ALBUTEROL 2.5 MG/3 ML NEB SOL NEB SCH ×6 (03:30→22:43)
[2019-03-26 06:41] LABS: Basophils % 0.4 % (0-1.3); Lymphocytes % 8.7 % (15.3-44.8); MPV 10.6 fL (7.6-11.3)
[2019-03-26 06:55] LABS: Potassium 4.4 mmol/L (3.5-5.1)
[2019-03-26] MEDS: INSULIN -REGULAR HUMAN 50 UNIT/0.5 ML ML SQ SCH ×5 (07:30→22:03)
[2019-03-26] MEDS ORDERED: NITROGLYCERIN 0.4 MG/TAB SL PRN (08:51)
[2019-03-26] MEDS: FERROUS SULFATE 325 MG TAB PO SCH (09:00)
[2019-03-26] MEDS: HOME MED 1 EA UNK (Amiodarone Hcl [Amiodarone Hcl] 100 MG) PO SCH (09:00)
[2019-03-26] MEDS ORDERED: PIPER/TAZO/NS 2.25gm 2.25 GM/100 ML BAG IV SCH (09:00)
[2019-03-26] MEDS ORDERED: GABAPENTIN 100 MG CAP PO SCH (09:00)
[2019-03-26] MEDS ORDERED: HOME MED 1 EA UNK (Omeprazole [Omeprazole] 20 MG) PO SCH (09:00)
[2019-03-26] MEDS: HOME MED 1 EA UNK (Zinc [Zinc] 50 MG) PO SCH (09:00)
[2019-03-26] MEDS: VITAMIN A 8000 UNIT PO SCH (09:00)
[2019-03-26] MEDS: [UNRECOGNIZED DRUG - REMARK] IH SCH ×2 (09:00→19:37)
[2019-03-26] MEDS: CALCIUM CARBONATE CHEW 500MG TAB PO SCH (10:00)
[2019-03-26] MEDS: VITAMIN D 1000 UNIT TAB PO SCH (10:00)
[2019-03-26] MEDS: SEVELAMER CARBONATE 800 MG TABLET PO SCH ×4 (10:00→21:51)
[2019-03-26] MEDS: CLOPIDOGREL 75 MG TABLET PO SCH (10:01)
[2019-03-26] MEDS: predniSONE 10 MG TAB PO SCH (10:01)
[2019-03-26] MEDS: allopurinoL 100 MG TAB PO SCH (10:01)
[2019-03-26] MEDS: ASPIRIN 81 MG CHEWABLE TABLET PO SCH (10:01)
[2019-03-26] MEDS: GABAPENTIN 100 MG CAP PO SCH ×2 (13:34→21:51)
[2019-03-26] MEDS: CODEINE 30MG/APAP 300MG TAB PO SCH ×2 (13:34→21:51)
[2019-03-26] MEDS: PIPER/TAZO/NS 2.25gm 2.25 GM/50 ML BAG IV SCH (16:59)
[2019-03-26] MEDS ORDERED: NA CHLORIDE 0.9% 1,000 ML IV PRN (17:36)
--- NOTE | 2019-03-26 18:49 | EKG ---
Test Date: 2019-03-25 Test Time: 16:02:15 Spring Intern: ALEXANDER MEASUREMENT RESULTS: Intervals: Rate: 86 SC: 174 QRSD: 148 QT: 458 QTc: 548 [place]: P: 6 SC: 174 QRS: -66 T: 81 INTERPRETIVE STATEMENTS: Sinus rhythm with premature atrial complexes and premature ventricular complexes or fusion complexes Left axis deviation Nonspecific intraventricular block Abnormal ECG Compared to ECG 03/11/2019 01:55:36 Atrial premature complex(es) now present Fusion complex(es) now present Ventricular premature complex(es) now present Left-axis deviation now present Ventricular-paced complex(es) or rhythm no longer present Atrial-sensed ventricular-paced complex(es) or rhythm no longer present Electronically Signed On 03-26-19 18:47:16 OPERATOR VACUUM by Bhupendra Samson
[2019-03-26] MEDS: ACETYLCYST 20% 4 ML VIAL IH SCH (20:00)
[2019-03-26] MEDS ORDERED: ACETYLCYST 6,000 MG/30 ML VIAL ONE (20:18)
[2019-03-26] MEDS: HEPARIN 5000 UNIT/ML 1 ML VIAL SQ SCH (21:51)
--- NOTE | 2019-03-27 00:25 | HP ---
Date of Admission: 03/26/2019 Chief Complaint: Right foot pain. History Of Present Illness: This is an 79-year-old male patient, who started to have a small area of open wound on the right foot on the plantar aspect proximal to fifth toe and this small open wound has not changed lately. It drains some times, some discharge, but he came into emergency room with increasing pain into his foot. He is taking antibiotics Bactrim as prescribed by his ux visual designer for this. Denies any fever, chills, but his pain is getting worse along with some swelling of the right dorsal foot, so he came into ER. After he was evaluated, he was admitted to the hospital. When I saw him this morning, he was complaining of pain, which is constant, but from time to time it gets worse. Review of Systems: Musculoskeletal: As mentioned above. Dermatology: As mentioned above. All other systems reviewed and negative. Medications: List reviewed. Allergies: TO SHELLFISH, CIPRO, IODINE, DEMEROL. Social History: Negative for smoking, alcohol use. Family History: Significant for asthma, hypertension, breast cancer. Past Surgical History: AICD placement in June 2014, tracheostomy placement many years ago. Past Medical History: End-stage renal disease, on hemodialysis; COPD; chronic systolic congestive heart failure with low ejection fraction; anemia due to chronic kidney disease; obstructive sleep apnea; coronary artery disease; diabetes mellitus; allergic rhinitis; osteoarthritis at multiple sites; diverticulosis; cervical spondylosis with radiculopathy; gastroesophageal reflux disease; aortic stenosis. Physical Examination: Vital Signs: Temperature 97.3, pulse 73, respiratory rate 20, blood pressure 103/54, oxygen saturation 100%, height 5 feet 10 inches, weight 277 pounds. General: Awake, alert, oriented, not in distress. HEENT: Head atraumatic, normocephalic. Conjunctivae nonerythematous. Sclerae white. Mouth, no thrush or edema noted. Ears/Nose, no mass, lesion, discharge noted. Neck: Supple. No JVD, lymph nodes, bruit, thyromegaly noted. Lungs: Bilateral good equal air entry. Clear to auscultation. No rhonchi. No rales. Heart: Normal heart sounds, no murmur or gallop. Abdomen: Soft, bowel sounds normal. No guarding, rigidity, tenderness, mass, hepatosplenomegaly, distention, or bruit noted. Extremities: Trace leg edema. Right foot examination shows redness of skin of the right dorsum foot with pink discoloration. Warm and tender to touch. Right foot on the plantar aspect has superficial open wound about 3-4 mm in size with some surrounding hard skin. Skin: No rash, ulcer, cellulitis. Lymphatics: No lymph node enlargement in neck, supraclavicular, infraclavicular region. Neuro: No focal neurological deficit. Chest: Unremarkable. External Genitalia: Deferred. Rectal: Deferred. Laboratory Data: Yesterday, white count 17.9, hemoglobin 11.2, platelets 133. Today, white count 11.1, hemoglobin 9.7, platelets 110. Sodium today 138, potassium 4.4, chloride 101, bicarb 30, BUN 36, creatinine 5.69, glucose 136. Procalcitonin yesterday 2.5. Chest x-ray no acute cardiopulmonary changes. Foot x-rays, some soft tissue edema, but no acute bony changes noted. Impression: 1. Right foot cellulitis. 2. Rule out osteomyelitis, right foot. 3. End-stage renal disease, on hemodialysis. 4. Anemia due to chronic kidney disease. 5. Chronic obstructive pulmonary disease. 6. Chronic systolic congestive heart failure. 7. Coronary artery disease. 8. Hypertension. 9. Type 2 diabetes mellitus. 10. Osteoarthritis, multiple sites. 11. Obstructive sleep apnea. 12. Diverticulosis. 13. Gastroesophageal reflux disease. Plan: Admit patient to hospital for further evaluation and management of this problem. The patient is appropriate for inpatient and is expected to spend 2 midnights in hospital. Home medications will be continued per order. Start the patient on IV antibiotics per order. Consult General Surgeon, Dr. Guajardo , for further evaluation. Because patient has AICD in place, we will not be able to get MRI done, so we will try to get a bone scan done on him for further evaluation to rule out any underlying osteomyelitis, which would be a major concern at this point. Meanwhile, current empiric antibiotics will be continued. I will start him on pain medication Tylenol with Codeine 3 times a day and this will be scheduled pain medication and then we will go ahead and use p.r.n. IV pain medication. He takes gabapentin 100 mg 3 times a day. We will increase dose to 200 mg 3 times a day. I will see him tomorrow for followup. Consult ux visual designer for dialysis support. ODESSA/PATRICK Voice ID: [id number] MTDD
[2019-03-27] MEDS: PIPER/TAZO/NS 2.25gm 2.25 GM/50 ML BAG IV SCH ×3 (01:37→17:02)
--- NOTE | 2019-03-27 02:14 | CON ---
Date of Consultation: 03/26/2019 Reason For Consultation: Elevated BUN and creatinine, fluid over volume, end-stage renal disease. History Of Present Illness: This is a pleasant 79-year-old gentleman, well known to me from dialysis with significant past medical history of 1.End-stage renal disease, on hemodialysis, Thursday, Thursday, Thursday at [facility]. 2.Hypertension. 3.Hyperlipidemia. 4.COPD status post tracheostomy and trach collar. 5.Congestive heart failure. 6.Coronary artery disease complicated with congestive heart failure. Patient came to the hospital because of foot infection. I saw him on the dialysis, placed him on Ariane trim. His foot pain got worse, could not ambulate. For that reason, reported to the hospital, on ar rival workup including x-ray was negative for osteomyelitis. Patient still on trach collar, slightly shortness of breath. Lab showed elevation in BUN and creatinine. For that reason, we have been consulted. Past Medical History: Include, 1.Coronary artery disease. 2.COPD, on trach collar. 3.End-stage renal disease, on hemodialysis, Thursday, Thursday, Thursday. 4.Hyperlipidemia. 5.Coronary artery disease complicated with congestive heart failure. Family History: Positive for diabetes and hypertension. Past Surgical History: AV fistula, tracheostomy. Allergies: TO CIPRO, MIDODRINE AND IODINE. Review of Systems: Head and Neck: No red eye. No ear pain. GI: No nausea, no vomiting. : No polyuria, no dysuria, no hematuria. Clinical Partner: Not applicable. Respiratory: Has chronic shortness breath. Cardiovascular: Has leg edema. Endocrine: No polydipsia. Skin: No rash. Neuro: Has neuropathy. Musculoskeletal: Has pain in the foot. Physical Examination: Vital Signs: When I saw the patient, blood pressure 98/60, pulse of 88. Chest: Crackles bilateral base. Heart: S1, S2. Systolic murmur. Abdomen: Morbidly, obese. Extremities: + edema. Neurological: Alert, oriented x3. Laboratory Data: Chest x-ray showing cardiomegaly with congestion. Foot x-ray did show swelling and no osteomyelitis. Medications: Home medications include prednisone, allopurinol, Renvela, gabapentin, Plavix, aspirin and amiodarone. Current medications in the hospital include Tylenol, allopurinol, cholecalciferol, f errous sulfate, gabapentin, nitroglycerin, ipratropium, Zosyn, Renvela, and vancomycin. Laboratory Data: WBC 11.1, H and H 9.7/31, platelets of 110. Sodium 138, potassium 4.4, bicarb 30, BUN 36, creatinine 5.6, calcium 8.6. Assessment And Plan: 1.End-stage renal disease with over volume. I am going to go ahead and arrange for dialysis today a nd we will monitor the patient. 2.Hypertension, controlled optimal utilize blood pressure for ultrafiltration. 3.Diabetes as by primary. 4.Chronic obstructive pulmonary disease, stable. We will continue current treatment. Follow up wit h the primary. 5.Diabetic foot, x-ray negative. We will follow up with Surgery. Continue current antibiotic. ROLANDO/PATRICK Voice ID: [id number] Report ID: [id number]
[2019-03-27] MEDS: IPRATROPIUM BROM 0.5MG/2.5ML NEB SCH ×6 (02:43→19:45)
[2019-03-27] MEDS: ALBUTEROL 2.5 MG/3 ML NEB SOL NEB SCH ×6 (02:43→19:45)
[2019-03-27] MEDS: PANTOPRAZOLE 40MG TABLET PO SCH (05:39)
[2019-03-27] MEDS: INSULIN -REGULAR HUMAN 50 UNIT/0.5 ML ML SQ SCH ×4 (07:30→21:00)
[2019-03-27] MEDS: ACETYLCYST 20% 4 ML VIAL IH SCH ×2 (08:30→19:45)
[2019-03-27] MEDS: VITAMIN D 1000 UNIT TAB PO SCH (08:46)
[2019-03-27] MEDS: SEVELAMER CARBONATE 800 MG TABLET PO SCH ×2 (08:47→17:03)
[2019-03-27] MEDS: CLOPIDOGREL 75 MG TABLET PO SCH (08:47)
[2019-03-27] MEDS: CALCIUM CARBONATE CHEW 500MG TAB PO SCH (08:47)
[2019-03-27] MEDS: GABAPENTIN 100 MG CAP PO SCH ×3 (08:48→21:38)
[2019-03-27] MEDS: allopurinoL 100 MG TAB PO SCH (08:51)
[2019-03-27] MEDS: CODEINE 30MG/APAP 300MG TAB PO SCH ×3 (08:51→21:38)
[2019-03-27] MEDS: predniSONE 10 MG TAB PO SCH (08:52)
[2019-03-27] MEDS: HEPARIN 5000 UNIT/ML 1 ML VIAL SQ SCH ×2 (08:52→21:38)
[2019-03-27] MEDS: [UNRECOGNIZED DRUG - REMARK] IH SCH ×2 (08:53→21:00)
[2019-03-27] MEDS: FERROUS SULFATE 325 MG TAB PO SCH (08:53)
[2019-03-27] MEDS: HOME MED 1 EA UNK (Amiodarone Hcl [Amiodarone Hcl] 100 MG) PO SCH (08:53)
[2019-03-27] MEDS: HOME MED 1 EA UNK (Zinc [Zinc] 50 MG) PO SCH (08:54)
[2019-03-27] MEDS: ASPIRIN 81 MG CHEWABLE TABLET PO SCH (08:55)
[2019-03-27] MEDS: VITAMIN A 8000 UNIT PO SCH (09:00)
--- NOTE | 2019-03-27 11:26 | PN ---
Date of Progress Note: 03/27/2019 Subjective: Patient was seen this morning for followup. No new complaints or problems reported by emanuel pantoja. He was sitting at bedside. His pain in the right foot is better today than yesterday. Objective: Vital Signs: Reviewed. HEENT: Unremarkable. Lungs: Bilateral good air entry. No rhonchi. No rales. Heart: Sounds normal. Abdomen: Soft. Bowel sounds normal. No guarding, rigidity, tenderness, distention. Extremities: No leg edema. Impression: 1.Cellulitis, right foot. 2.Rule out osteomyelitis, right foot. 3.End-stage renal disease, on hemodialysis. 4.Chronic obstructive pulmonary disease. Plan: We will continue current oxygen nebulizer treatment, IV antibiotics. Details were discussed w arianna Guajardo, and he was made aware of that patient is at high risk from any kind of anesthesia a nd procedure that requires anesthesia because of his multiple comorbidities. We will see what the claudia ne scan shows tomorrow and then Dr. Guajardo make a decision regarding debridement. ODESSA/MODL Voice ID: [id number] Report ID: [id number]
--- NOTE | 2019-03-27 16:05 | PN ---
Date of Progress Note: 03/27/2019 Subjective: Patient was admitted with diabetic foot. Patient seen by Surgery. Plan for bone scan t omorrow. Physical Examination: Vital Signs: When I saw the patient, blood pressure of 102/55. Patient had dialysis yesterday. We managed to remove 2300. Chest: Tracheostomy. Crackles bilateral base. Heart: S1, S2. Systolic murmur. Abdomen: Soft, nontender. Extremities: +1 edema. Neuro: Alert, oriented x3. Laboratory Data: WBC 11.9, H and H 9.7/31, platelets of 110. Sodium 138, potassium 4.4, bicarb 30, BUN 36, creatinine 5.6, calcium 8.6. Current Medications: The patient on include aspirin, Zosyn, vancomycin, Plavix, calcium carbonate, g abapentin, Renvela 1600 with each meal, pantoprazole, amiodarone, breathing treatment, zinc sulfate. Assessment And Plan: 1.End-stage renal disease, over volume. I am going to start the patient on dialysis. Patient is go ing to be dialyzed tomorrow and we will follow up. 2.Hypertension, controlled optimal. Continue current treatment. 3.Anemia of chronic kidney disease. We will resume Epogen. 4.Secondary hyperparathyroid. Continue Renvela. 5.Foot infection. Follow up with Surgery and Primary. Plan for bone scan tomorrow. GERI Voice ID: [id number] Report ID: [id number]
[2019-03-27] MEDS: MORPHINE 4 MG/ML SYR IV PRN (18:18)
[2019-03-27] MEDS ORDERED: VANCOMYCIN 1 GM in NA CHLORIDE 0.9% 250 ML IVPB SCH (22:00)
[2019-03-28] MEDS: IPRATROPIUM BROM 0.5MG/2.5ML NEB SCH ×6 (00:46→20:30)
[2019-03-28] MEDS: ALBUTEROL 2.5 MG/3 ML NEB SOL NEB SCH ×6 (00:46→20:30)
[2019-03-28] MEDS: PIPER/TAZO/NS 2.25gm 2.25 GM/50 ML BAG IV SCH ×3 (02:56→17:00)
[2019-03-28] MEDS: PANTOPRAZOLE 40MG TABLET PO SCH (06:07)
[2019-03-28] MEDS: VITAMIN A 8000 UNIT PO SCH (07:28)
[2019-03-28] MEDS: FERROUS SULFATE 325 MG TAB PO SCH (07:28)
[2019-03-28] MEDS: [UNRECOGNIZED DRUG - REMARK] IH SCH ×2 (07:28→21:00)
[2019-03-28] MEDS: HOME MED 1 EA UNK (Zinc [Zinc] 50 MG) PO SCH (07:29)
[2019-03-28] MEDS: INSULIN -REGULAR HUMAN 50 UNIT/0.5 ML ML SQ SCH ×4 (07:30→21:00)
[2019-03-28] MEDS: allopurinoL 100 MG TAB PO SCH (07:55)
[2019-03-28] MEDS: VITAMIN D 1000 UNIT TAB PO SCH (07:55)
[2019-03-28] MEDS: SEVELAMER CARBONATE 800 MG TABLET PO SCH ×3 (07:56→18:11)
[2019-03-28] MEDS: GABAPENTIN 100 MG CAP PO SCH ×3 (07:56→22:14)
[2019-03-28] MEDS: ASPIRIN 81 MG CHEWABLE TABLET PO SCH (07:56)
[2019-03-28] MEDS: CLOPIDOGREL 75 MG TABLET PO SCH (07:57)
[2019-03-28] MEDS: CALCIUM CARBONATE CHEW 500MG TAB PO SCH (07:57)
[2019-03-28] MEDS: HOME MED 1 EA UNK (Amiodarone Hcl [Amiodarone Hcl] 100 MG) PO SCH (07:57)
[2019-03-28] MEDS: CODEINE 30MG/APAP 300MG TAB PO SCH ×3 (07:57→22:14)
[2019-03-28] MEDS: predniSONE 10 MG TAB PO SCH (07:57)
[2019-03-28] MEDS: HEPARIN 5000 UNIT/ML 1 ML VIAL SQ SCH ×2 (07:58→22:16)
[2019-03-28] MEDS: ACETYLCYST 20% 4 ML VIAL IH SCH ×2 (08:25→20:30)
[2019-03-28 08:32] LABS: Absolute Lymphocytes (CBC) 0.7 K/uL (0.7-4.9); Hematocrit 30.6 % (39.6-49.0); Lymphocytes % 4.8 % (15.3-44.8); MPV 10.4 fL (7.6-11.3); RBC Red Blood Cell Count 3.19 M/uL (4.33-5.43)
[2019-03-28] MEDS ORDERED: VANCOMYCIN 1 GM in NA CHLORIDE 0.9% 250 ML IVPB ONE (09:00)
[2019-03-28 09:20] LABS: Blood Morphology Comment NOT SEEN (NOT SEEN); Urine White Blood Cell Casts OK
[2019-03-28 09:21] LABS: Platelet Estimate DECR
--- NOTE | 2019-03-28 11:51 | RAD REPORT ---
EXAM DESCRIPTION: NM - Bone Imaging Three Phase - 03/28/2019 11:45 am CLINICAL HISTORY: rule out Osteomyelitis of right foot Pain and swelling right COMPARISON: Foot Right 3 View dated 03/25/2019 TECHNIQUE: The patient was administered approximately 22 mCi Tc 99m MDP. Flow, pool and delayed imag ing of both feet and ankle were performed. FINDINGS: Increased flow and pool is seen to the right foot and ankle. Focally prominent and delayed activity is seen along the lateral aspect of the foot correlating to th e fifth toe. This combination of findings is most compatible with osteomyelitis IMPRESSION: Right fifth toe osteomyelitis.
[2019-03-28] MEDS ORDERED: MIDODRINE HCL 5 MG TABLET PO ONE (13:18)
[2019-03-28] MEDS: EPOETIN ALFA 10,000 UNIT/ML VIAL IV SCH (13:39)
[2019-03-28] MEDS: ALBUMIN HUMAN 25% 50 ML IV SCH (15:15)
--- NOTE | 2019-03-28 23:59 | PN ---
Date of Progress Note: 03/28/2019 Subjective: Sergio was seen this morning for followup. Overall, he is feeling better than yesterday. Pain in the right foot is better. Objective: Vital Signs: Reviewed. HEENT: Unremarkable. Lungs: Clear on auscultation. Cardiac: Heart sounds normal. Abdomen: Soft. Bowel sounds normal. No guarding, rigidity, tenderness, or distention. Extremities: No leg edema. Laboratory Data: Patient's bone scan today done reveals presence of osteomyelitis in the right foot fifth toe. Impression: 1.Osteomyelitis, right foot fifth toe. 2.End-stage renal disease, on hemodialysis. 3.Hypertension. 4.Hyperlipidemia. Plan: We will continue current medication. We will follow with Dr. Guajardo for further management of this wound, his osteomyelitis of the right foot. ODESSA/MODL Voice ID: [id number] Report ID: [id number]
[2019-03-29] MEDS: PIPER/TAZO/NS 2.25gm 2.25 GM/50 ML BAG IV SCH ×3 (00:30→16:00)
--- NOTE | 2019-03-29 01:06 | PN ---
Date of Progress Note: 03/28/2019 Chief Complaint: End-stage renal disease, on dialysis; history of congestive heart failure with diastolic dysfunction. History Of Present Illness: Patient was admitted because of diabetic foot infection. He underwent a bone scan. Review of Systems: Denies fever, chills. Physical Examination: Lungs: Crackles bilaterally at bases. Abdomen: Soft, benign. Heart: S1, S2. 2/6 systolic murmur. Extremities: 1 to 2+ edema. Neurologic: No tremor. Alert and oriented x3. Laboratory Data: Sodium 138, potassium 4.4, BUN 36, creatinine 5.6. Impression And Plan: 1. End-stage renal disease. Dialysis will be done today for metabolic clearance and ultrafiltration. Continue low-sodium diet and p.o. fluid restriction. Monitor fluid balance. 2. Hypertension: Blood pressure is optimal control. 3. Intradialytic hypotension. Continue midodrine for blood pressure support. 4. Anemia in chronic kidney disease. Continue JAIRO. 5. Secondary hyperparathyroidism. Continue Renvela. Monitor calcium and phosphorus level. 6. Diabetic foot infection. Continue wound care and antibiotics. I spent total 36 min including 25 min to coordinate care plan EB/MODL Voice ID: [id number] Report ID: [id number] ABEL
[2019-03-29] MEDS: ALBUTEROL 2.5 MG/3 ML NEB SOL NEB SCH ×7 (04:00→23:10)
[2019-03-29] MEDS: IPRATROPIUM BROM 0.5MG/2.5ML NEB SCH ×7 (04:00→23:10)
[2019-03-29] MEDS: PANTOPRAZOLE 40MG TABLET PO SCH (05:35)
[2019-03-29 06:35] LABS: Absolute Lymphocytes (CBC) 0.7 K/uL (0.7-4.9); Basophils % 0.6 % (0-1.3); Hematocrit 29.7 % (39.6-49.0); Lymphocytes % 6.5 % (15.3-44.8); MPV 10.2 fL (7.6-11.3); RBC Red Blood Cell Count 3.08 M/uL (4.33-5.43)
[2019-03-29 07:03] LABS: Potassium 4.9 mmol/L (3.5-5.1)
[2019-03-29] MEDS: INSULIN -REGULAR HUMAN 50 UNIT/0.5 ML ML SQ SCH ×4 (07:30→21:00)
[2019-03-29] MEDS: ACETYLCYST 20% 4 ML VIAL IH SCH ×2 (08:15→20:30)
[2019-03-29] MEDS: GABAPENTIN 100 MG CAP PO SCH ×3 (08:25→20:59)
[2019-03-29] MEDS: SEVELAMER CARBONATE 800 MG TABLET PO SCH ×3 (08:25→16:12)
[2019-03-29] MEDS: allopurinoL 100 MG TAB PO SCH (08:25)
[2019-03-29] MEDS: VITAMIN D 1000 UNIT TAB PO SCH (08:26)
[2019-03-29] MEDS: CLOPIDOGREL 75 MG TABLET PO SCH (08:26)
[2019-03-29] MEDS: predniSONE 10 MG TAB PO SCH (08:26)
[2019-03-29] MEDS: CODEINE 30MG/APAP 300MG TAB PO SCH ×3 (08:26→20:58)
[2019-03-29] MEDS: CALCIUM CARBONATE CHEW 500MG TAB PO SCH (08:27)
[2019-03-29] MEDS: HEPARIN 5000 UNIT/ML 1 ML VIAL SQ SCH ×2 (08:27→20:59)
[2019-03-29] MEDS: VITAMIN A 8000 UNIT PO SCH (08:28)
[2019-03-29] MEDS: [UNRECOGNIZED DRUG - REMARK] IH SCH ×2 (08:28→21:00)
[2019-03-29] MEDS: HOME MED 1 EA UNK (Amiodarone Hcl [Amiodarone Hcl] 100 MG) PO SCH (08:36)
[2019-03-29] MEDS: ZINC SULFATE 220 MG CAP PO SCH (08:36)
[2019-03-29] MEDS: ASPIRIN 81 MG CHEWABLE TABLET PO SCH (08:36)
[2019-03-29] MEDS: FERROUS SULFATE 325 MG TAB PO SCH (08:36)
[2019-03-29] MEDS: AMIODARONE HCL 200 MG TAB PO SCH (10:04)
[2019-03-29] MEDS: VANCOMYCIN 1 GM in NA CHLORIDE 0.9% 250 ML IVPB SCH (11:55)
--- NOTE | 2019-03-29 12:41 | P.PN ---
Subjective Date of Service: 03/29/19 Subjective: No new changes Today stable VS HD tomorrow pending surgery recommendations Bone scan possibly OM, plan fo 6wks of Abx Physical Examination - Vital Signs Temperature: 97.6 F Blood Pressure: 107/55 Pulse: 76 Respirations: 20 Pulse Ox (%): 100 Assessment And Plan - Plan End-stage renal disease, will cont HD MWF renal dose meds Anemia of chronic disease Cont Epogen MBD Cont binders HTN BP borderline Cont midodrine on HD days Foot OM surgery on board cont Abx monitor Vanco level COPD cont inhalers
--- NOTE | 2019-03-30 00:04 | PN ---
Date of Progress Note: 03/29/2019 Subjective: The patient was seen this morning for followup. No new complaints or problems reported by patient. Overall, his right foot pain is better. Objective: Vital Signs: Reviewed. HEENT: Unremarkable. Lungs: Clear to auscultation. Heart: Heart sounds normal. Abdomen: Soft, bowel sounds normal. No guarding, rigidity, tenderness, or distention. Extremities: No leg edema. Laboratory Data: White count 11, hemoglobin 9.4, platelets 144. Sodium 136, potassium 4.9, chloride 101, bicarb 25, BUN 43, creatinine 6.34, glucose 92. Impression: 1.Osteomyelitis, right foot. 2.End-stage renal disease, on hemodialysis. 3.Anemia due to chronic kidney disease. 4.Hypertension. 5.Coronary artery disease. 6.Chronic obstructive pulmonary disease. Plan: We will continue current antibiotics at present time. I have requested social service to find out from dialysis center adding choice of antibiotics that we might be able to give him at dialysis clinic because that would be the best way to provide his IV antibiotic therapy for 6 weeks after his dialysis. So, hopefully we will have information about it tomorrow depending on the choice that we h ave on IV antibiotics, we will make decision. Patient will need 6 weeks of IV antibiotic therapy. ODESSA/MODL Voice ID: [id number] Report ID: [id number]
[2019-03-30] MEDS: PIPER/TAZO/NS 2.25gm 2.25 GM/50 ML BAG IV SCH ×3 (00:13→16:02)
[2019-03-30] MEDS: ALBUTEROL 2.5 MG/3 ML NEB SOL NEB SCH ×5 (03:40→19:50)
[2019-03-30] MEDS: IPRATROPIUM BROM 0.5MG/2.5ML NEB SCH ×5 (03:40→19:50)
[2019-03-30] MEDS: PANTOPRAZOLE 40MG TABLET PO SCH (06:05)
[2019-03-30] MEDS: INSULIN -REGULAR HUMAN 50 UNIT/0.5 ML ML SQ SCH ×4 (07:30→20:30)
[2019-03-30] MEDS: ACETYLCYST 20% 4 ML VIAL IH SCH ×2 (07:35→19:50)
[2019-03-30] MEDS: SEVELAMER CARBONATE 800 MG TABLET PO SCH ×3 (08:00→16:00)
[2019-03-30] MEDS: VITAMIN D 1000 UNIT TAB PO SCH (08:32)
[2019-03-30] MEDS: HEPARIN 5000 UNIT/ML 1 ML VIAL SQ SCH ×2 (08:32→20:29)
[2019-03-30] MEDS: allopurinoL 100 MG TAB PO SCH (08:32)
[2019-03-30] MEDS: MIDODRINE HCL 5 MG TABLET PO PRN (08:32)
[2019-03-30] MEDS: GABAPENTIN 100 MG CAP PO SCH ×4 (08:33→20:28)
[2019-03-30] MEDS: CALCIUM CARBONATE CHEW 500MG TAB PO SCH (08:33)
[2019-03-30] MEDS: ZINC SULFATE 220 MG CAP PO SCH (08:33)
[2019-03-30] MEDS: ASPIRIN 81 MG CHEWABLE TABLET PO SCH (08:33)
[2019-03-30] MEDS: CLOPIDOGREL 75 MG TABLET PO SCH (08:33)
[2019-03-30] MEDS: FERROUS SULFATE 325 MG TAB PO SCH (08:33)
[2019-03-30] MEDS: CODEINE 30MG/APAP 300MG TAB PO SCH ×4 (08:33→20:28)
[2019-03-30] MEDS: predniSONE 10 MG TAB PO SCH (08:34)
[2019-03-30] MEDS: AMIODARONE HCL 200 MG TAB PO SCH (08:34)
[2019-03-30] MEDS: [UNRECOGNIZED DRUG - REMARK] IH SCH ×2 (08:34→20:29)
[2019-03-30] MEDS: VITAMIN A 8000 UNIT PO SCH (08:39)
[2019-03-30] MEDS: ALBUMIN HUMAN 25% 50 ML IV SCH (11:40)
[2019-03-30] MEDS: EPOETIN ALFA 10,000 UNIT/ML VIAL IV SCH (11:41)
--- NOTE | 2019-03-30 23:11 | PN ---
Date of Progress Note: 03/30/2019 Subjective: The patient was seen this morning for followup. No new complaints or problems reported. His pain in the right foot is better than before. No swelling of the dorsum foot. No tenderness o f dorsum foot. Lateral aspect of the right foot proximal to the base of the fifth toe has about 2-3 cm swelling with collection of fluid inside and this is new compared to how it was when I first saw h is foot. Objective: Vital Signs: Reviewed. HEENT: Unremarkable. Lungs: Clear to auscultation. Heart: Heart sounds normal. Abdomen: Soft, bowel sounds normal. No guarding, rigidity, tenderness, or distention. Extremities: No leg edema. Impression: 1.Osteomyelitis, right foot. 2.End-stage renal disease, on hemodialysis. 3.Anemia due to chronic kidney disease. 4.Coronary artery disease. Plan: We will continue current antibiotics at present time as per my discussion with social service today. Choice of antibiotics that is available through Dialysis Clinic is vancomycin, gentamicin, an d Ancef. I have requested social service to make arrangements for IV vancomycin to be given after ea ch hemodialysis at current dose which is 1 g after each dialysis for 6 weeks. I would like to use ot her antibiotic like Cipro or Levaquin if possible, but his current hospital record states that he is allergic to Cipro and the patient is not aware of how now this label came in place because as per his knowledge, he is only allergic to iodine and his office record also states that he is allergic to io dine, but the patient reported that at [facility] somehow somebody recorded that he was all ergic to Cipro, but he is not aware of having any reaction to it and I have requested nurse on the fl oor to talk to [facility] to see where this information is coming from and so far I have no t heard any more information or details from [facility], but once we know more, then I will decide if w e can use Cipro or not for him. ODESSA/MODL Voice ID: [id number] Report ID: [id number]
[2019-03-31] MEDS: PIPER/TAZO/NS 2.25gm 2.25 GM/50 ML BAG IV SCH ×3 (00:54→16:00)
--- NOTE | 2019-03-31 03:59 | PN ---
Date of Progress Note: 03/30/2019 Subjective: The patient was admitted with diabetic foot. The patient had undergone bone scan, which showed osteomyelitis. Patient is afebrile. Patient seen on dialysis. Physical Examination: Vital Signs: Blood pressure 102/50, pulse of 75, had occasional low blood pressure down to the 80 on dialysis. Chest: Clear to auscultation. Heart: S1, S2. Regular. Abdomen: Soft, morbidly obese. Extremities: Plus edema. Laboratory Data: WBC 11, H and H 9.4/29, platelets of 144. Sodium 136, potassium 4.9, bicarb 25, BU N 43, creatinine 6.3, calcium 8.9. Current Medications: The patient on include: 1.Vancomycin. 2.Zosyn. 3.Breathing treatment. 4.Midodrine. 5.Epogen. 6.Plavix. 7.Calcium carbonate. 8.Amiodarone. 9.Gabapentin. 10.Renvela. 11.Pantoprazole. Assessment And Plan: 1.End-stage renal disease, currently started to be on the normal volume side. We are going to [facility] Thursday, Thursday, Thursday. 2.Hypertension with hypotension during the dialysis. We will continue to use midodrine. 3.Congestive heart failure. We managed to establish better volume control. We will go back to dial ysis 3 times a week. 4.Anemia of chronic kidney disease. Continue JAIRO. 5.Osteomyelitis. Patient on vancomycin and Zosyn. On the dialysis, we will be able to give vancomyc in and cefepime or gentamicin. We will discuss with Dr. Salazar. We will follow up. ROLANDO/PATRICK Voice ID: [id number] Report ID: [id number]
[2019-03-31] MEDS: ALBUTEROL 2.5 MG/3 ML NEB SOL NEB SCH ×7 (04:00→23:40)
[2019-03-31] MEDS: IPRATROPIUM BROM 0.5MG/2.5ML NEB SCH ×7 (04:00→23:40)
[2019-03-31] MEDS: PANTOPRAZOLE 40MG TABLET PO SCH (06:03)
[2019-03-31] MEDS: INSULIN -REGULAR HUMAN 50 UNIT/0.5 ML ML SQ SCH ×5 (07:30→21:56)
[2019-03-31] MEDS: ACETYLCYST 20% 4 ML VIAL IH SCH ×2 (07:50→19:30)
[2019-03-31] MEDS: SEVELAMER CARBONATE 800 MG TABLET PO SCH ×3 (08:00→16:28)
[2019-03-31] MEDS: VITAMIN D 1000 UNIT TAB PO SCH (08:22)
[2019-03-31] MEDS: ZINC SULFATE 220 MG CAP PO SCH (08:22)
[2019-03-31] MEDS: FERROUS SULFATE 325 MG TAB PO SCH (08:23)
[2019-03-31] MEDS: allopurinoL 100 MG TAB PO SCH (08:23)
[2019-03-31] MEDS: CLOPIDOGREL 75 MG TABLET PO SCH (08:23)
[2019-03-31] MEDS: CALCIUM CARBONATE CHEW 500MG TAB PO SCH (08:23)
[2019-03-31] MEDS: ASPIRIN 81 MG CHEWABLE TABLET PO SCH (08:23)
[2019-03-31] MEDS: predniSONE 10 MG TAB PO SCH (08:24)
[2019-03-31] MEDS: GABAPENTIN 100 MG CAP PO SCH ×3 (08:24→21:59)
[2019-03-31] MEDS: CODEINE 30MG/APAP 300MG TAB PO SCH ×3 (08:24→21:55)
[2019-03-31] MEDS: HEPARIN 5000 UNIT/ML 1 ML VIAL SQ SCH ×2 (08:25→21:54)
[2019-03-31] MEDS: [UNRECOGNIZED DRUG - REMARK] IH SCH ×2 (08:25→21:00)
[2019-03-31] MEDS: VITAMIN A 8000 UNIT PO SCH (08:26)
[2019-03-31] MEDS: CIPROFLOXACIN HCL 250 MG TAB PO SCH (10:00)
--- NOTE | 2019-04-01 01:03 | PN ---
Date of Progress Note: 03/31/2019 Subjective: Patient was seen this morning for followup. No new complaints or problems reported by emanuel pantoja. Pain in his right foot is better. Objective: Vital Signs: Reviewed. HEENT: Unremarkable. Lungs: Clear to auscultation. Heart: Heart sounds normal. Abdomen: Soft, bowel sounds normal. No guarding, rigidity, tenderness, or distention. Extremities: No leg edema. Impression: 1.Osteomyelitis, right foot. 2.End-stage renal disease, on hemodialysis. 3.Coronary artery disease. 4.Paroxysmal atrial fibrillation. Plan: Patient is tolerating current IV antibiotic very well. Social Service is making arrangements for patient to get IV vancomycin after dialysis for 6 weeks. The patient's chart states that he is a llergic to Cipro. He is not aware of being allergic to Cipro and office record states that he is onl y allergic to iodine. So what I have done is, I have reviewed his multiple emergency room visits for this year and last year and determined that on December 06, 2017, when he was in the emergency room, kulwinder watson received IV Cipro. During infusion time, he actually developed some rash and itching around the in fusion site, but no other reaction and at that time allergy to Cipro was entered. I believe that thi s is reaction to IV Cipro and I would not consider that as a true allergic reaction and he should be able to tolerate oral Cipro without any side effect and obviously while in the hospital we would like to try it. Patient is on amiodarone for his prior history of paroxysmal atrial fibrillation and he has done well, has remained in sinus rhythm, and I did reach out to his folder hand, Dr. Carrasquillo, and d iscussed details with him and we talked about possibility of discontinuing amiodarone to avoid any in teraction between Cipro and amiodarone and Dr. Carrasquillo has given me his okay to discontinue that medicat ion and we have done that as of this morning. We will start him on Cipro 250 mg p.o. daily and upon discharge we will plan to discharge him on 250 mg twice a day for 6 weeks. Possible discharge to go home tomorrow after his dialysis. ODESSA/MODL Voice ID: [id number] Report ID: [id number]
[2019-04-01] MEDS: PIPER/TAZO/NS 2.25gm 2.25 GM/50 ML BAG IV SCH ×3 (01:28→17:00)
--- NOTE | 2019-04-01 03:27 | PN ---
Date of Progress Note: 03/31/2019 History: The patient was admitted with diabetic foot, found to have over volume. The patient is samir eduled for dialysis tomorrow. Patient yesterday on dialysis remove any fluid. Physical Examination: Vital Signs: When I saw the patient blood pressure of 106/54, pulse of 81. Chest: Decreased air entry bilateral base. Neck: Has a tracheostomy. Heart: S1, S2 systolic murmur. Abdomen: Soft, nontender. Extremities: Left AV fistula plus edema. Laboratory Data: WBC 11, H and H 9.4/29.7, platelet 144. Sodium 136, potassium 4.9, bicarb 25, BUN 43, creatinine 6.3, calcium 8.9. Current Medications: The patient is on include: 1.Breathing treatment. 2.Vancomycin. 3.Zosyn. 4.Ciprofloxacin. 5.Epogen. 6.Ferrous sulfate. 7.Calcium carbonate. 8.Renvela. 9.Pantoprazole. Assessment And Plan: 1.End-stage renal disease. We will continue to dialyze the patient Thursday, Thursday, Thursday. 2.Secondary hyperparathyroid, stable. Continue Renvela. 3.Anemia of chronic kidney disease. Continue Epogen. 4.Foot infection with osteomyelitis. Plan for debridement tomorrow. We will follow up with the [facility] and Surgery. 5.Chronic obstructive pulmonary disease, stable. Continue current treatment. 6.Congestive heart failure, we will keep challenging the patient. GERI Voice ID: [id number] Report ID: [id number]
[2019-04-01] MEDS: ALBUTEROL 2.5 MG/3 ML NEB SOL NEB SCH ×4 (03:50→16:10)
[2019-04-01] MEDS: IPRATROPIUM BROM 0.5MG/2.5ML NEB SCH ×4 (03:50→16:10)
[2019-04-01] MEDS: MIDODRINE HCL 5 MG TABLET PO PRN (06:46)
[2019-04-01] MEDS: PANTOPRAZOLE 40MG TABLET PO SCH (06:46)
[2019-04-01] MEDS: INSULIN -REGULAR HUMAN 50 UNIT/0.5 ML ML SQ SCH ×3 (07:30→16:30)
[2019-04-01] MEDS: SEVELAMER CARBONATE 800 MG TABLET PO SCH ×3 (08:00→17:00)
[2019-04-01] MEDS: ACETYLCYST 20% 4 ML VIAL IH SCH ×2 (08:00→12:25)
[2019-04-01] MEDS: GABAPENTIN 100 MG CAP PO SCH ×2 (08:09→13:55)
[2019-04-01] MEDS: FERROUS SULFATE 325 MG TAB PO SCH (08:09)
[2019-04-01] MEDS: [UNRECOGNIZED DRUG - REMARK] IH SCH (08:09)
[2019-04-01] MEDS: CIPROFLOXACIN HCL 250 MG TAB PO SCH (08:09)
[2019-04-01] MEDS: predniSONE 10 MG TAB PO SCH (08:09)
[2019-04-01] MEDS: ASPIRIN 81 MG CHEWABLE TABLET PO SCH (08:09)
[2019-04-01] MEDS: ZINC SULFATE 220 MG CAP PO SCH (08:10)
[2019-04-01] MEDS: CALCIUM CARBONATE CHEW 500MG TAB PO SCH (08:10)
[2019-04-01] MEDS: CLOPIDOGREL 75 MG TABLET PO SCH (08:10)
[2019-04-01] MEDS: CODEINE 30MG/APAP 300MG TAB PO SCH ×2 (08:10→14:00)
[2019-04-01] MEDS: VITAMIN D 1000 UNIT TAB PO SCH (08:10)
[2019-04-01] MEDS: VITAMIN A 8000 UNIT PO SCH (08:10)
[2019-04-01] MEDS: EPOETIN ALFA 10,000 UNIT/ML VIAL IV SCH (08:47)
[2019-04-01] MEDS: allopurinoL 100 MG TAB PO SCH (09:00)
[2019-04-01] MEDS: VANCOMYCIN 1 GM in NA CHLORIDE 0.9% 250 ML IVPB SCH (10:14)
[2019-04-01] MEDS ORDERED: propofoL 200 MG/20 ML VIAL IV ONE (12:03)
[2019-04-01] MEDS ORDERED: FENTANYL CITR 100 MCG/2 ML ONE (12:04)
[2019-04-01] MEDS ORDERED: LIDOCAINE 1% MPF 5 ML VIAL ONE (12:04)
[2019-04-01] MEDS ORDERED: NA CHLORIDE 0.9% 500 ML ONE (12:22)
[2019-04-01 12:59] VITALS: O2SAT 100
[2019-04-01 13:29] LABS: Potassium 4.1 mmol/L (3.5-5.1)
--- NOTE | 2019-04-01 14:17 | P.BOP ---
Preoperative diagnosis: right foot necrotic ulcer with celluitis Postoperative diagnosis: same Primary procedure: Debridement of right foot necrotic ulcer with abscess drainege 5 x 4 cm Estimated blood loss: <10cc Specimen: necrotic tissue Findings: necrotic tissue connection from plantar to dorsal foot Anesthesia: Local Drain(s): Other Transferred to: Recovery Room Condition: Good
[2019-04-01 16:19] VITALS: BP 110/62; TEMP 97.1
--- NOTE | 2019-04-02 01:49 | OP ---
Date of Procedure: 04/01/2019 Surgeon: Tristin Guajardo MD Preoperative Diagnosis: Right foot necrotic ulcer with cellulitis. Postoperative Diagnosis: Right foot necrotic ulcer with cellulitis. Procedure: Debridement of right foot necrotic ulcer with abscess drainage, 5 x 4 cm. Anesthesia: Local plus sedation. Specimens: Necrotic tissue and culture. Indications: This is a case of an 79-year-old patient with multiple medical problems, also come with a cellulitis and infected ulcer on the plantar surface of the foot. Initially, he was given antibio tics. It was improving. Suddenly developed the blister on the dorsal part. I was consulted for memo tobar. Patient had a necrotic tissue over the area and it just looked like it was connected to the previous ulcer. So, we booked him for examination under anesthesia and debridement of the necrotic tissue, root foot. Fully explained benefits, alternatives, and risks including, but not limited to i nfection, bleeding, damage to adjacent structures, anesthesia complication, nonhealing wound, RI, and even . He also understands this may not relieve any symptoms. He might need more than one saud gical intervention. He understood and the family signed a consent. Description Of Procedure: Patient was brought to the operating room, placed in supine position. Ane sthesia was done without complication. Time-out was called. Right foot was prepped and draped in st erile fashion. An incision was made on the dorsum, have a large blister in that area and all the tis john in the 5th metatarsal region and proximal phalanx shows devitalized tissue, nonviable and connect ed to the dorsal part of the foot. So, this ulcer closed in the plantar surface, but bacteria migrat ed all the way through to a tunnel to the dorsal aspect of it. All the area was debrided. It goes a ll the way down to muscle near the bone. Specimen was sent for evaluation. Cultures were done and a colin was packed with wet-to-dry dressing after hemostasis and irrigation and local anesthetic. Patien t tolerated the procedure well. Patient was sent to recovery in stable condition. DONNA/PATRICK Voice ID: [id number] Report ID: [id number]
--- NOTE | 2019-04-02 02:13 | DS ---
Date of Discharge: 04/01/2019 Disposition: The patient will be discharged to go home. Physical Examination: HEENT: Unremarkable. Lungs: Clear to auscultation. Heart: Heart sounds normal, Abdomen: Soft, bowel sounds normal. No guarding, rigidity, tenderness, or distention. Extremities: No leg edema. Laboratory Data: Labs done during this hospitalization, upon admission white count 17.9, hemoglobin 11.2, platelets 133. Last white count on 03/29/2019, was 11, hemoglobin 9.4, platelets 144. Ash Collector ry from 03/29, sodium 136, potassium 4.9, chloride 101, bicarb 25, BUN 43, creatinine 6.34, glucose 9 2. Hospital Course: An 79-year-old pleasant male patient, admitted to the hospital with right foot pain . Please see dictated H and P for more information. Patient came into the hospital 1 week ago with this right foot open wound on the plantar aspect, some discharge and pain on the plantar and dorsum a spect of this foot. The patient was evaluated in the emergency room, he was admitted to the hospital with cellulitis of right foot and concerns about possible osteomyelitis. The foot x-ray did not rev eal any osteomyelitis changes. Since the patient has AICD in place, we were not able to do MRI, but we did obtain bone scan on Thursday of this week and bone scan showed advancing osteomyelitis involving right foot fifth toe. IV antibiotics were started when the patient came into the hospital, which wa s vancomycin and Zosyn. Dr. Guajardo was consulted from General Surgery and Dr. Guajardo took the pa tient to surgery today for debridement procedure as he had developed area of fluid collection on the dorsum lateral aspect of the distal part of the right foot. After the debridement procedure, Dr. Vernell patel called me and from surgery point of view, he reported that the patient is stable for discharge. Medically, patient is stable for discharge, so charge nurse was contacted and was requested to make arrangements for home health care services for daily wound care dressing changes as per instruction from Dr. Guajardo and the patient to [facility]. Patient will n eed IV antibiotics for 6 weeks. We will continue vancomycin for 6 weeks and he will get 1 g after ea dialysis and social service has made that arrangements. As a second antibiotic, we have decided t o go with Cipro 250 mg twice a day and there is a potential interaction between Cipro and amiodarone that he was taking and I did contact his meal attendant, Dr. Carrasquillo and Dr. Carrasquillo has informed me that it is okay to stop amiodarone, which was discontinued yesterday and I did inform the patient about that. If the patient ends up having any atrial fibrillation for which he was taking amiodarone then we wi ll have to address that problem at that particular time and he was made aware of that problem. Discharge Diagnoses: 1.Right foot osteomyelitis. 2.End-stage renal disease, on hemodialysis. 3.Anemia due to chronic kidney disease. 4.Chronic obstructive pulmonary disease. 5.Congestive heart failure, chronic, systolic. 6.Coronary artery disease. 7.Hypertension. 8.Type 2 diabetes mellitus. 9.Osteoarthritis, multiple sites. 10.Obstructive sleep apnea. 11.Diverticulosis. 12.Gastroesophageal reflux disease. Discharge Medications And Instructions: 1.Continue all prior home medications except stop amiodarone. 2.Follow up with Dr. [facility] next week on Thursday or following week. 3.Follow up at my office during first or second week of April 2019. 4.Patient to take vancomycin 1 g after each dialysis for 6 weeks and take Cipro 250 mg 2 tablets a d ay for 6 weeks, done for 40 days. 5.Given prescription for Tylenol with Codeine by Dr. Guajardo. Home health nurse to change wound ca re dressing daily as per instruction from Dr. Guajardo. ODESSA/MODL Voice ID: [id number] Report ID: [id number]
--- NOTE | 2019-05-09 20:56 | CON ---
Date of Consultation: 03/26/2019 Diagnosis: Right foot cellulitis and abscess. History Of Present Illness: This is the case of an 79-year-old patient who comes to us with right fo ot cellulitis and with a small ulcer on the plantar area. The patient was admitted for multiple medi ever problems including cellulitis, to treat cellulitis with antibiotics. Surgical consult was obtain ed. He denies any trauma. Review of Systems: Ten points otherwise of unremarkable. Allergies: SULFA, CIPRO, IODINE AND DEMEROL. Social History: He does not smoke. He does not drink alcohol. Surgical History: Includes tracheostomy. Past Medical History: Renal disease on hemodialysis, COPD, congestive heart failure, sleep apnea, di abetes. Physical Examination: General: Patient is awake and alert. Eyes: Pupils equal and reactive, anicteric. Chest: Clear. Abdomen: Soft and depressible. Extremities: Over the right foot area on the lateral aspect of the foot at the plantar a diabetic ul cer present. We cannot express any pus in that area. No fluctuance. There are some areas of cellul itis around that region. Dorsalis pedis pulses bilaterally are diminished. No cyanosis. Laboratory Data: Right foot x-ray shows osteopenic changes, soft tissue swelling, cannot rule out os teomyelitis. Assessment And Plan: This is an 79-year-old patient with right diabetic ulcer, cellulitis around the area, also osteomyelitis. Workup has been done for this. I explained to the patient the options of debridement. Family feels he is getting better, and he is going to hold that in the next few hours or few days. If he does not get better, he will allow me, what we explained to him, debridement of t hat area. He understands also the benefits, alternatives and risks of debridement, which include, bu t not limited to infection, bleeding, damage to adjacent structures, nonhealing wound, NM, and even d eath. He also understands the importance of off loading of diabetes control and diet. HM/MODL Voice ID: [id number] Report ID: [id number]
== END 2019-04-01 17:45 | disposition home or self-care (01) | DRG 623 ==
LOC: ER 14:24 → ERHOLD 16:21 → 4TH 18:02
PROVIDERS: ADMIT Internal Medicine; ATTEND Internal Medicine
PROC: 5A1D70Z Performance of Urinary Filtration, Intermittent, Less than 6 Hours Per Day (ICD-10-PCS; 2019-03-26)
PROC: 5A1D70Z Performance of Urinary Filtration, Intermittent, Less than 6 Hours Per Day (ICD-10-PCS; 2019-03-28)
PROC: 5A1D70Z Performance of Urinary Filtration, Intermittent, Less than 6 Hours Per Day (ICD-10-PCS; 2019-03-30)
PROC: 0JBQ0ZZ Excision of Right Foot Subcutaneous Tissue and Fascia, Open Approach (ICD-10-PCS; principal; 2019-04-01 12:30)
DX: E11.69 Type 2 diabetes mellitus with other specified complication (principal); L03.115 Cellulitis of right lower limb; I13.2 Hypertensive heart and chronic kidney disease with heart failure and with stage 5 chronic kidney disease, or end stage renal disease; I50.22 Chronic systolic (congestive) heart failure; M86.8X7 Other osteomyelitis, ankle and foot; N18.6 End stage renal disease; N25.81 Secondary hyperparathyroidism of renal origin; E11.22 Type 2 diabetes mellitus with diabetic chronic kidney disease; D63.1 Anemia in chronic kidney disease; J44.9 Chronic obstructive pulmonary disease, unspecified; I25.10 Atherosclerotic heart disease of native coronary artery without angina pectoris; M15.9 Polyosteoarthritis, unspecified; G47.33 Obstructive sleep apnea (adult) (pediatric); K57.90 Diverticulosis of intestine, part unspecified, without perforation or abscess without bleeding; K21.9 Gastro-esophageal reflux disease without esophagitis; E78.5 Hyperlipidemia, unspecified; I95.3 Hypotension of hemodialysis; I48.0 Paroxysmal atrial fibrillation; Z99.2 Dependence on renal dialysis
CPT/HCPCS: 36415; 71045; 78315; 80048; 80076; 80202; 82550; 82553; 82947; 83605; 83690; 84145; 84484; 85025; 85610; 85730; 86140; 86850; 86900; 86901; 87040; 87070; 87075; 87077; 87186; 87205; 88304; 90935; 93005; 94640; 94760; 96361; 96365; 96366; 96375; 99285; A9503; J1644; J2250; J2543; J2704; J3010; J7030; J7040; J7512; P9047

== ENCOUNTER 2019-04-27 13:50 | Observation (INO) | payer OTHER, MEDICARE ==
--- OUTSIDE RECORDS SUMMARY | 2019-04-27 13:53 | XMS REPORT ---
:1940 Author [facility] Address [address] [place] [address] Dr. Vargas [address] [place] [id number] Care Team Providers Name Role Phone Unavailable Unavailable Unavailable Problems This patient has no known problems. Allergies, Adverse Reactions, Alerts This patient has no known allergies or adverse reactions. Medications This patient has no known medications.
--- OUTSIDE RECORDS SUMMARY | 2019-04-27 13:54 | XMS REPORT ---
:1940 Author Organization [employer] Care Team Providers Name Role Phone Chris Contreras Provider Role Unavailable Allergies, Adverse Reactions, Alerts Substance Reaction Event Type Iodine Info Not Available Drug Allergy Problems Problem Type Condition Code Onset Dates Condition Status Assessment Biceps tendinitis of right shoulder M75.21 Active Assessment Rotator cuff arthropathy of right M12.811 Active shoulder Assessment Pain, joint, shoulder, right M25.511 Active Medications Medication Code Code Instructions Start End Status Dosage System Date Date Aspirin [facility] [address]-72 Active not defined Nitroglycerin [facility] [address]-60 Active not defined Allopurinol [facility] 37039501072 Active not defined Vitamin A NDC 0 Active not defined Albuterol Sulfate [facility] [address]-31 Active not defined Renvela [facility] [address]-29 Active not defined Midodrine HCl [facility] 33421150060 10 MG Oral Active not defined Fluticasone [facility] [address]-28 Active not Propionate defined Ferrous Sulfate [facility] [address]178 Active not defined Omeprazole [facility] 47465312867 Active not defined Gabapentin [facility] [address]-77 Active not defined clopidogrel NDC 0 Active not defined Ipratropium [facility] [address]-77 Active not [place] defined Prednisone [place] 0 Active not defined Results No Known Results Summary Purpose [employer] Submission
--- NOTE | 2019-04-27 14:38 | RAD REPORT ---
EXAM DESCRIPTION: RAD - Chest Single View - 04/27/2019 2:28 pm CLINICAL HISTORY: COUGH Chest pain. COMPARISON: Chest Single View dated 03/25/2019; Chest Single View dated 03/11/2019; Chest Single Vie w dated 03/10/2019; Chest Single View dated 12/21/2018 FINDINGS: Portable technique limits examination quality. The lungs are grossly clear. The heart is enlarged with multilead pacer/defibrillator device present. Tracheostomy tube has tip above the jamia.
[2019-04-27 14:55] LABS: Absolute Lymphocytes (CBC) 0.9 K/uL (0.7-4.9); Basophils % 1.5 % (0-1.3); Hematocrit 34.2 % (39.6-49.0); Lymphocytes % 11.8 % (15.3-44.8); MPV 10.8 fL (7.6-11.3); RBC Red Blood Cell Count 3.68 M/uL (4.33-5.43)
[2019-04-27 15:04] LABS: Protime INR 1.19
[2019-04-27 17:23] LABS: Albumin 3.4 g/dL (3.4-5.0); Bilirubin Direct 0.1 mg/dL (0-0.2); Bilirubin Total 0.5 mg/dL (0.2-1.0); Magnesium 2.1 mg/dL (1.8-2.4); Potassium 3.4 mmol/L (3.5-5.1); Protein, Total 8.2 g/dL (6.4-8.2); Troponin (Emerg Dept Use Only) 0.06 ng/mL (0.0-0.045)
--- NOTE | 2019-04-27 17:58 | EDPHYS ---
Physician Documentation [facility] Name: Sergio Perez Age: 79 yrs Sex: Male : 1940 Arrival Date: 04/27/2019 Time: 13:52 Bed 26 Private MD: ROMA Physician Mickey Bro HPI: 04/27 14:15 This 79 yrs old Black Male presents to ER via Wheelchair with complaints of Dizziness, tono Nausea. 14:15 The patient presents with dizziness, feeling faint, generalized weakness, tono lightheadedness. Onset: The symptoms/episode began/occurred just prior to arrival, this morning. Context: occurred in car home after dialysis. Modifying factors: The symptoms are alleviated by nothing, the symptoms are aggravated by nothing. Associated signs and symptoms: The patient has no apparent associated signs or symptoms. Severity of symptoms: At their worst the symptoms were mild moderate in the emergency department the symptoms have improved moderately. Patient's baseline: Neuro: alert and fully oriented. The patient has experienced similar episodes in the past, a few times. Historical: - Allergies: 15:16 Cipro; ph 15:16 Ciprofloxacin; ph 15:16 Demerol; ph 15:16 Iodine; ph 15:16 Meperidine; ph 15:16 SHELLFISH; ph - Home Meds: 15:16 albuterol sulfate 2.5 mg /3 mL (0.083 %) Inhl nebu 1 vial daily [Active]; allopurinol ph 200 mg Oral 2 tabs daily [Active]; amiodarone 200 mg Oral tab 0.5 tab daily [Active]; aspirin 81 mg Oral chew 1 tab twice daily [Active]; clopidogrel 75 mg Oral tab 1 tab once daily [Active]; Ferrous Sulfate 65 mg Oral 1x daily [Active]; fluticasone 50 mcg/actuation nasal spsn 1 spray 2 times per day [Active]; gabapentin Oral 1 tab 3 times per day [Active]; indura 800 mg 2 tabs before each meal TID [Active]; ipratropium bromide 0.02 % inhalation soln 2.5 mL 4 times per day [Active]; nitroglycerin 0.4 mg Oral as needed [Active]; omeprazole 20 mg Oral chew twice a day [Active]; Tums Oral 2 tabs per meal [Active]; vitamin A 8,000 unit Oral cap 1 cap once daily [Active]; vitamin d1 tablet 2000 IU daily [Active]; zinc sulfate 220 (50) mg Oral cap daily [Active]; - PMHx: 15:16 CHF; COPD; Diabetes - NIDDM; Dialysis; M-W-F; ESRD; GERD; Gout; Hypertension; ph Pacemaker; with defib; - Immunization history:: Adult Immunizations unknown. - Family history:: not pertinent. - Social history:: Smoking status: Patient/guardian denies using tobacco. - Ebola Screening: : No symptoms or risks identified at this time. ROS: 14:15 Constitutional: Negative for fever, chills, and weight loss, Eyes: Negative for injury, tono pain, redness, and discharge, ENT: Negative for injury, pain, and discharge, Neck: Negative for injury, pain, and swelling, Cardiovascular: Negative for chest pain, palpitations, and edema, Respiratory: Negative for shortness of breath, cough, wheezing, and pleuritic chest pain, Abdomen/GI: Negative for abdominal pain, nausea, vomiting, diarrhea, and constipation, Back: Negative for injury and pain, : Negative for injury, bleeding, discharge, and swelling, MS/Extremity: Negative for injury and deformity, Skin: Negative for injury, rash, and discoloration, Neuro: Negative for headache, weakness, numbness, tingling, and seizure, Psych: Negative for depression, anxiety, suicide ideation, homicidal ideation, and hallucinations, Allergy/Immunology: Negative for hives, rash, and allergies, Hematologic/Lymphatic: Negative for swollen nodes, abnormal bleeding, and unusual bruising. 14:15 Endocrine: Positive for shaky. Exam: 14:15 Constitutional: This is a well developed, well nourished patient who is awake, alert, tono and in no acute distress. Head/Face: Normocephalic, atraumatic. Eyes: Pupils equal round and reactive to light, extra-ocular motions intact. Lids and lashes normal. Conjunctiva and sclera are non-icteric and not injected. Cornea within normal limits. Periorbital areas with no swelling, redness, or edema. ENT: Nares patent. No nasal discharge, no septal abnormalities noted. Tympanic membranes are normal and external auditory canals are clear. Oropharynx with no redness, swelling, or masses, exudates, or evidence of obstruction, uvula midline. Mucous membranes moist. Neck: Trachea midline, no thyromegaly or masses palpated, and no cervical lymphadenopathy. Supple, full range of motion without nuchal rigidity, or vertebral point tenderness. No Meningismus. Chest/axilla: Normal chest wall appearance and motion. Nontender with no deformity. No lesions are appreciated. Cardiovascular: Regular rate and rhythm with a normal S1 and S2. No gallops, murmurs, or rubs. Normal PMI, no JVD. No pulse deficits. Respiratory: Lungs have equal breath sounds bilaterally, clear to auscultation and percussion. No rales, rhonchi or wheezes noted. No increased work of breathing, no retractions or nasal flaring. Abdomen/GI: Soft, non-tender, with normal bowel sounds. No distension or tympany. No guarding or rebound. No evidence of tenderness throughout. Back: No spinal tenderness. No costovertebral tenderness. Full range of motion. Male : Normal genitalia with no discharge or lesions. Skin: Warm, dry with normal turgor. Normal color with no rashes, no lesions, and no evidence of cellulitis. MS/ Extremity: Pulses equal, no cyanosis. Neurovascular intact. Full, normal range of motion. Neuro: Awake and alert, GCS 15, oriented to person, place, time, and situation. Cranial nerves II-XII grossly intact. Motor strength 5/5 in all extremities. Sensory grossly intact. Cerebellar exam normal. Normal gait. Psych: Awake, alert, with orientation to person, place and time. Behavior, mood, and affect are within normal limits. Vital Signs: 13:55 BP 102 / 48; Pulse 89; Resp 28; Temp 97.8; Pulse Ox 100% ; sv 14:50 BP 91 / 66; Pulse 85; Resp 18; Pulse Ox 98% on R/A; ph 16:00 BP 93 / 60; Pulse 87; Resp 20; Pulse Ox 100% on R/A; ph 16:50 BP 87 / 68; Pulse 80; Resp 24; Pulse Ox 100% on R/A; ph 17:51 BP 99 / 66; Pulse 77; Resp 18; Pulse Ox 100% on 2 lpm NC; ph 18:36 BP 97 / 62; Pulse 81; Resp 16; Pulse Ox 99% on R/A; ph 20:30 BP 79 / 62; Pulse 82; Resp 16; Temp 98.2(TE); Pulse Ox 100% on 2% Simple Mask; Pain vc 0/10; 21:21 BP 90 / 56 (man/); vc 21:40 BP 102 / 55 RA Sitting (auto/reg); vc 20:30 Patient has a trach. vc MDM: 14:10 Patient medically screened. [facility] 14:17 Data reviewed: vital signs, nurses notes, lab test result(s), EKG, radiologic studies, tono plain films. 04/27 14:14 Order name: Basic Metabolic Panel; Complete Time: 17:38 [facility] 04/27 14:14 Order name: CBC with Diff; Complete Time: 15:59 [facility] 04/27 14:14 Order name: LFT's; Complete Time: 17:38 [facility] 04/27 14:14 Order name: Magnesium; Complete Time: 17:38 [facility] 04/27 14:14 Order name: NT PRO-BNP; Complete Time: 17:38 [facility] 04/27 14:14 Order name: PT-INR; Complete Time: 15:59 [facility] 04/27 14:14 Order name: Troponin (emerg Dept Use Only); Complete Time: 17:38 [facility] 04/27 14:14 Order name: Lipase; Complete Time: 17:38 [facility] 04/27 18:36 Order name: Glucose, Ancillary Testing; Complete Time: 18:47 EDMS 04/27 20:20 Order name: Glucose, Ancillary Testing; Complete Time: 08:10 EDMS 04/27 21:22 Order name: Glucose, Ancillary Testing; Complete Time: 08:10 EDMS 04/27 22:32 Order name: Glucose, Ancillary Testing; Complete Time: 08:10 EDMS 04/27 23:43 Order name: Glucose, Ancillary Testing; Complete Time: 08:10 EDMS 04/27 23:53 Order name: Troponin I; Complete Time: 08:10 EDMS 04/27 14:14 Order name: XRAY Chest (1 view); Complete Time: 15:59 [facility] 04/27 14:14 Order name: EKG; Complete Time: 14:15 [facility] 04/27 17:40 Order name: Diet Regular; Complete Time: 17:41 [facility] 04/28 01:47 Order name: Glucose, Ancillary Testing; Complete Time: 08:10 EDMS 04/28 04:28 Order name: Glucose, Ancillary Testing; Complete Time: 08:10 EDAR 04/28 05:16 Order name: CBC with Automated Diff; Complete Time: 08:10 EDAR 04/28 05:20 Order name: Troponin I; Complete Time: 08:10 EDMS 04/28 05:26 Order name: Basic Metabolic Panel; Complete Time: 08:10 [facility] 04/28 07:05 Order name: Glucose, Ancillary Testing; Complete Time: 08:10 EDMS 04/28 08:26 Order name: RAD EDAR 04/28 08:45 Order name: Glucose, Ancillary Testing [facility] 04/27 14:14 Order name: Cardiac monitoring; Complete Time: 16:03 [facility] 04/27 14:14 Order name: EKG - Nurse/Tech; Complete Time: 16:03 [facility] 04/27 14:14 Order name: IV Saline Lock; Complete Time: 16:03 [facility] 04/27 14:14 Order name: Labs collected and sent; Complete Time: 16:03 [facility] 04/27 14:14 Order name: O2 Per Protocol; Complete Time: 16:03 [facility] 04/27 14:14 Order name: O2 Sat Monitoring; Complete Time: 16:03 [facility] 04/27 14:14 Order name: Blood Pressure Recheck; Complete Time: 16:03 [facility] 04/27 15:03 Order name: Labs - recollect needed; Complete Time: 17:35 bd Administered Medications: 17:30 Drug: NS 0.9% 1000 ml Route: IV; Rate: 75 ml/hr; Site: right forearm; ph 18:35 Follow up: Response: No adverse reaction; IV Status: Infusion continued upon admission ph 18:20 Drug: Xopenex 1.25 mg Route: Inhalation; vc 18:20 Drug: AtroVENT Aerosol 0.5 mg Route: Inhalation; vc 18:33 Drug: D50W 25 ml Route: IVP; Site: right forearm; ph 19:54 Follow up: Response: No adverse reaction; Blood sugar is elevated vc 21:41 Not Given (Patient Refused): Zofran 4 mg IVP once; over 2 minutes vc Disposition: 04/27/19 17:57 Hospitalization ordered by Anmol Salazar for Observation. Preliminary diagnosis are Hypoglycemia, unspecified, Weakness, End stage renal disease, Type 2 diabetes mellitus, Tracheostomy status, Hypokalemia. - Bed requested for Telemetry/MedSurg (Inpatient). - Status is Observation. ss - Condition is Fair. - Problem is new. - Symptoms have improved. UTI on Admission? No Signatures: Dispatcher [employer] EDMS Marie Hammonds Corey, MD MD cha Smirch, Shelby, RN RN ss Tom Dyson PA PA [id number] Kelsey Zamudio RN RN tl1 Alba Espinosa RN RN Ana Maria Fritz RN RN vc Corrections: (The following items were deleted from the chart) 16:03 14:14 Urine Dipstick-Ancillary ordered. tono ph 18:48 17:57 Hospitalization Ordered by Anmol Salazar MD for Observation. Preliminary diagnosis tono is Hypoglycemia, unspecified; Weakness; End stage renal disease; Type 2 diabetes mellitus; Tracheostomy status. Bed requested for Telemetry/MedSurg (observation). Status is Observation. Condition is Fair. Problem is new. Symptoms have improved. UTI on Admission? No. tono 19:52 18:48 04/27/2019 17:57 Hospitalization Ordered by Anmol Salazar MD for Observation. tl1 Preliminary diagnosis is Hypoglycemia, unspecified; Weakness; End stage renal disease; Type 2 diabetes mellitus; Tracheostomy status; Hypokalemia. Bed requested for Telemetry/MedSurg (observation). Status is Observation. Condition is Fair. Problem is new. Symptoms have improved. UTI on Admission? No. tono 21:24 19:52 04/27/2019 17:57 Hospitalization Ordered by Anmol Salazar MD for Observation. tl1 Preliminary diagnosis is Hypoglycemia, unspecified; Weakness; End stage renal disease; Type 2 diabetes mellitus; Tracheostomy status; Hypokalemia. Bed requested for Telemetry/MedSurg (observation). Status is Observation. Condition is Fair. Problem is new. Symptoms have improved. UTI on Admission? No. tl1 21:43 21:24 04/27/2019 17:57 Hospitalization Ordered by Anmol Salazar MD for Observation. vc Preliminary diagnosis is Hypoglycemia, unspecified; Weakness; End stage renal disease; Type 2 diabetes mellitus; Tracheostomy status; Hypokalemia. Bed requested for [facility] ER HOLD. Status is Observation. Condition is Fair. Problem is new. Symptoms have improved. UTI on Admission? No. tl1 04/28 07:27 04/27 21:43 04/27/2019 17:57 Hospitalization Ordered by Anmol Salazar MD for Observation. tl1 Preliminary diagnosis is Hypoglycemia, unspecified; Weakness; End stage renal disease; Type 2 diabetes mellitus; Tracheostomy status; Hypokalemia. Bed requested for [facility] ER HOLD. Status is Observation. Condition is Fair. Problem is new. Symptoms have improved. UTI on Admission? No. vc 04/28 10:10 07:27 04/27/2019 17:57 Hospitalization Ordered by Anmol Salazar MD for Observation. ss Preliminary diagnosis is Hypoglycemia, unspecified; Weakness; End stage renal disease; Type 2 diabetes mellitus; Tracheostomy status; Hypokalemia. Bed requested for Telemetry/MedSurg (Inpatient). Status is Observation. Condition is Fair. Problem is new. Symptoms have improved. UTI on Admission? No. tl1
--- NOTE | 2019-04-27 17:58 | ER ---
Nurse's Notes [facility] Name: Sergio Perez Age: 79 yrs Sex: Male : 1940 Arrival Date: 04/27/2019 Time: 13:52 Bed 26 Private MD: Diagnosis: Hypoglycemia, unspecified;Weakness;End stage renal disease;Type 2 diabetes mellitus;Tracheostomy status;Hypokalemia Presentation: 04/27 13:54 Presenting complaint: Patient states: dizziness, nausea, right fingers intermittent sv numbness and starts having blurry vision and lightheaded x 1 day. States his BS has been fluctuating the last few days. Transition of care: patient was not received from another setting of care. Onset of symptoms was April 26, 2019. 13:54 Method Of Arrival: Wheelchair sv 13:54 Acuity: KARLENE 2 sv 15:18 Risk Assessment: Do you want to hurt yourself or someone else? Patient reports no ph desire to harm self or others. Initial Sepsis Screen: Does the patient meet any 2 criteria? RR > 20 per min. Does the patient have a suspected source of infection? No. Patient's initial sepsis screen is negative. Care prior to arrival: None. Historical: - Allergies: 15:16 Cipro; ph 15:16 Ciprofloxacin; ph 15:16 Demerol; ph 15:16 Iodine; ph 15:16 Meperidine; ph 15:16 SHELLFISH; ph - Home Meds: 15:16 albuterol sulfate 2.5 mg /3 mL (0.083 %) Inhl nebu 1 vial daily [Active]; allopurinol ph 200 mg Oral 2 tabs daily [Active]; amiodarone 200 mg Oral tab 0.5 tab daily [Active]; aspirin 81 mg Oral chew 1 tab twice daily [Active]; clopidogrel 75 mg Oral tab 1 tab once daily [Active]; Ferrous Sulfate 65 mg Oral 1x daily [Active]; fluticasone 50 mcg/actuation nasal spsn 1 spray 2 times per day [Active]; gabapentin Oral 1 tab 3 times per day [Active]; indura 800 mg 2 tabs before each meal TID [Active]; ipratropium bromide 0.02 % inhalation soln 2.5 mL 4 times per day [Active]; nitroglycerin 0.4 mg Oral as needed [Active]; omeprazole 20 mg Oral chew twice a day [Active]; Tums Oral 2 tabs per meal [Active]; vitamin A 8,000 unit Oral cap 1 cap once daily [Active]; vitamin d1 tablet 2000 IU daily [Active]; zinc sulfate 220 (50) mg Oral cap daily [Active]; - PMHx: 15:16 CHF; COPD; Diabetes - NIDDM; Dialysis; M-W-F; ESRD; GERD; Gout; Hypertension; ph Pacemaker; with defib; - Immunization history:: Adult Immunizations unknown. - Family history:: not pertinent. - Social history:: Smoking status: Patient/guardian denies using tobacco. - Ebola Screening: : No symptoms or risks identified at this time. Screenin:17 Abuse screen: Denies threats or abuse. Denies injuries from another. Nutritional ph screening: No deficits noted. Tuberculosis screening: No symptoms or risk factors identified. Fall Risk None identified. Assessment: 14:47 General: Appears in no apparent distress. comfortable, obese, well groomed, Behavior is ph calm, cooperative, agitated, Reports fatigue for Denies fever. Pain: Denies pain. Neuro: Level of Consciousness is awake, alert, obeys commands, Oriented to person, place, time, situation, Reports dizziness. Cardiovascular: Reports fatigue, lightheadedness, nausea, Denies chest pain, Capillary refill < 3 seconds in bilateral fingers Patient's skin is warm and dry. Respiratory: Airway via trache Respiratory effort is even, unlabored, Respiratory pattern is tachypnea. GI: Abdomen is obese. GI: Reports nausea, Patient currently denies abdominal pain, diarrhea, vomiting. Derm: Skin is intact, Skin is pink, warm \\T\\ dry. Musculoskeletal: Circulation, motion, and sensation intact. Range of motion: intact in all extremities. 16:50 Reassessment: Patient appears in no apparent distress at this time. Patient and/or ph family updated on plan of care and expected duration. Pain level reassessed. Pt found in wheelchair at bedside, states, " I was uncomfortable in the bed." Pt c/o SOB at this time, respirations tachypneic, SpO2 100% RA, requesting to be place on oxygen for comfort, paged RT to place pt on o2 via trach. 17:50 Reassessment: Patient appears in no apparent distress at this time. Patient and/or ph family updated on plan of care and expected duration. Pain level reassessed. Patient is alert, oriented x 3, equal unlabored respirations, skin warm/dry/pink. Pt remains sitting in wheelchair, reports that SOB has improved, apple juice x 2 given to pt for low BGL, pt tolerating well, family at bedside. 19:05 Reassessment: Patient and/or family updated on plan of care and expected duration. Pain vc level reassessed. Patient requests a tray for dinner. No other complaints at this time. 19:57 Reassessment: Provider at bedside. vc 20:14 Reassessment: Patients FSBS 52, patient is asymptomatic. 1/2 amp of D50 administered, vc see meditech for order, will continue to monitor. 21:20 Reassessment: Patient wheeled to bathroom. No complaints at this time. vc Vital Signs: 13:55 BP 102 / 48; Pulse 89; Resp 28; Temp 97.8; Pulse Ox 100% ; sv 14:50 BP 91 / 66; Pulse 85; Resp 18; Pulse Ox 98% on R/A; ph 16:00 BP 93 / 60; Pulse 87; Resp 20; Pulse Ox 100% on R/A; ph 16:50 BP 87 / 68; Pulse 80; Resp 24; Pulse Ox 100% on R/A; ph 17:51 BP 99 / 66; Pulse 77; Resp 18; Pulse Ox 100% on 2 lpm NC; ph 18:36 BP 97 / 62; Pulse 81; Resp 16; Pulse Ox 99% on R/A; ph 20:30 BP 79 / 62; Pulse 82; Resp 16; Temp 98.2(TE); Pulse Ox 100% on 2% Simple Mask; Pain vc 0/10; 21:21 BP 90 / 56 (man/); vc 21:40 BP 102 / 55 RA Sitting (auto/reg); vc 20:30 Patient has a trach. vc ED Course: 13:52 Patient arrived in ED. as 13:55 Triage completed. sv 13:56 Arm band placed on. sv 14:09 Mickey Bro MD is Attending Physician. tono 14:18 Alba Espinosa RN is Primary Nurse. ph 14:25 XRAY Chest (1 view) In Process Unspecified. EDMS 14:45 Inserted saline lock: 22 gauge in right forearm, using aseptic technique. Missed ph attempt(s): 22 gauge in right Bleeding controlled, band aid applied, catheter tip intact. 14:51 EKG done, by renal technician. reviewed by Mickey Bro MD. at1 15:18 Patient has correct armband on for positive identification. Placed in gown. Bed in low ph position. Call light in reach. Side rails up X2. elevator mechanic on. Pulse ox on. NIBP on. Door closed. Noise minimized. Warm blanket given. 17:53 Anmol Salazar MD is Hospitalizing Provider. tono 17:54 No provider procedures requiring assistance completed. ph 21:43 Patient admitted, IV remains in place. vc 21:46 Primary Nurse role handed off by Alba Espinosa RN vc 04/28 08:33 EKG done, by renal technician. at1 Administered Medications: 04/27 17:30 Drug: NS 0.9% 1000 ml Route: IV; Rate: 75 ml/hr; Site: right forearm; ph 18:35 Follow up: Response: No adverse reaction; IV Status: Infusion continued upon admission ph 18:20 Drug: Xopenex 1.25 mg Route: Inhalation; vc 18:20 Drug: AtroVENT Aerosol 0.5 mg Route: Inhalation; vc 18:33 Drug: D50W 25 ml Route: IVP; Site: right forearm; ph 19:54 Follow up: Response: No adverse reaction; Blood sugar is elevated vc 21:41 Not Given (Patient Refused): Zofran 4 mg IVP once; over 2 minutes vc Outcome: 17:57 Decision to Hospitalize by Provider. tono 21:42 Admitted to ER Hold. Please see [facility] for further documentation. vc 21:42 Condition: good 21:42 Instructed on the need for admit. 21:43 Patient left the ED. vc 04/28 10:10 Patient left the ED. Signatures: Dispatcher [employer] EDMS Margo Greene, Mickey Almanzar RN, MD MD cha Martinez, Amelia as Smirch, Shelby, RN RN Tamara Ortiz, bi data modeler EKG Tat1 Alba Espinosa RN RN ph CalcoteAna Maria RN RN vc Corrections: (The following items were deleted from the chart) 04/27 13:56 13:55 BP 102 / 48; Pulse 89bpm; Resp 20bpm; Pulse Ox 100%; Temp 97.8F; sv sv 14:29 14:28 General: Appears in no apparent distress. comfortable, ph ph 21:31 20:14 Reassessment: Patients FSBS 52, patient is asymptomatic. 1/2 amp of D50 vc administered, will continue to monitor. vc
[2019-04-27] MEDS ORDERED: NA CHLORIDE 0.9% 500 ML ONE (18:14)
[2019-04-27] MEDS ORDERED: IPRATROPIUM BROM 0.5MG/2.5ML ONE (18:24)
[2019-04-27] MEDS ORDERED: LEVALBUTEROL 1.25 MG/3 ML NEB ONE (18:24)
[2019-04-27] MEDS ORDERED: D50W 25 GM/50 ML SYRINGE/VIAL IV ONE ×2 (18:25→22:25)
[2019-04-27] MEDS ORDERED: ONDANSETRON 4 MG/2 ML VIAL IV PRN (20:14)
[2019-04-27] MEDS ORDERED: MORPHINE 4 MG/ML SYR IV PRN (20:14)
[2019-04-27] MEDS ORDERED: D50W 25 GM/50 ML SYRINGE/VIAL IV PRN (20:14)
[2019-04-27] MEDS ORDERED: ACETAMINOPHEN 500 MG TAB PO PRN (20:14)
[2019-04-27] MEDS ORDERED: GLUCAGON 1 MG/VIAL IM PRN (20:14)
[2019-04-27] MEDS ORDERED: INSULIN -REGULAR HUMAN 50 UNIT/0.5 ML ML SQ SCH (21:00)
[2019-04-27 23:49] VITALS: BMI 30.2
[2019-04-28] MEDS ORDERED: D50W 25 GM/50 ML SYRINGE/VIAL IV ONE (01:40)
--- NOTE | 2019-04-28 03:15 | HP ---
Date of Admission: 04/27/2019 Chief Complaint: Low blood sugar. History Of Present Illness: This is an 79-year-old male patient who has end-stage renal disease and multiple other comorbidities including type 2 diabetes mellitus for which he was taking oral hypoglyc emic medication, but his diabetes medication was discontinued at least 1 or 2 years ago as he did not need to continue that and his diabetes has been under excellent control without any need for medicat ion. For reason that is absolutely not clear to me today, patient came into emergency room with hypo glycemia problem and he reported that [facility] and he had symptoms of as if he is going to faint, feeling dizzy, very weak and his blood sugar was checked and it was low and he was given something to eat and drink and he felt better and went home. This mo rning, he had breakfast, went for dialysis, and as dialysis was getting finished, he started to have symptoms of low blood sugar, had some blurred vision. No chest pain. No shortness of breath. No vo miting, diarrhea. His blood sugar was low again and he was given something to eat, drink and he came into emergency room after he was evaluated, he was admitted to the hospital. When I saw him in [facility] room, he was feeling fine. No complaints reported at that time. Upon further questioning, I d etected in last few days patient started to take his diabetes medication without talking to any physi cians and he thought that it would help him and he is not even clear about his reasoning why did he s tart it as I was asking him more and more questions today. Allergies: TO IODINE, DEMEROL, AND SHELLFISH. Medications: List reviewed. Review of Systems: Constitutional: As mentioned above. STONE PRODUCT FABRICATOR: As mentioned above. All other systems reviewed and negative. Social History: Negative for smoking or alcohol use. Family History: Significant for asthma, hypertension, breast cancer. Past Surgical History: AICD placement in June 2014, tracheostomy placement many years ago. Past Medical History: End-stage renal disease, on hemodialysis; COPD; chronic systolic congestive he art failure with low ejection fraction; anemia due to chronic kidney disease; type 2 diabetes mellitu s; obstructive sleep apnea; coronary artery disease; allergic rhinitis; osteoarthritis at multiple si donell; diverticulosis; cervical spondylosis with radiculopathy; gastroesophageal reflux disease; aortic stenosis; and right foot osteomyelitis. Physical Examination: Vital Signs: When he first came into emergency room, blood pressure 102/48, pulse 89, respiratory ra te 28, temperature 97.8, oxygen saturation 100%. General: Awake, alert, oriented, not in distress. HEENT: Head atraumatic, normocephalic. Conjunctivae nonerythematous. Sclerae white. Mouth, no thr ush or edema noted. Ears/Nose, no mass, lesion, discharge noted. Neck: Supple. No JVD, lymph nodes, bruit, thyromegaly noted. Lungs: Bilateral good equal air entry. Clear to auscultation. No rhonchi. No rales. Heart: Normal heart sounds, no murmur or gallop. Abdomen: Soft, bowel sounds normal. No guarding, rigidity, tenderness, mass, hepatosplenomegaly, dis tention, or bruit noted. Extremities: Trace leg edema. Skin: No rash, ulcer, cellulitis. Lymphatics: No lymph node enlargement in neck, supraclavicular, infraclavicular region. Neuro: No focal neurological deficit. Chest: Unremarkable. External Genitalia: Deferred. Rectal: Deferred. Laboratory Data: White count 7.4, hemoglobin 10.6, platelets 153. Sodium 137, potassium 3.4, chlori de 101, bicarb 30, BUN 12, creatinine 3.56, glucose 57. Liver function tests unremarkable. Troponin 0.06. Lipase 81. Chest x-ray, lungs clear. Heart size, enlarged. Impression: 1.Hypoglycemia. 2.End-stage renal disease, on hemodialysis. 3.Chronic obstructive pulmonary disease. 4.Coronary artery disease. 5.Chronic systolic congestive heart failure. 6.Anemia due to chronic kidney disease. 7.Obstructive sleep apnea. 8.Osteomyelitis, right foot. 9.Allergic rhinitis. 10.Osteoarthritis, multiple sites. 11.Diverticulosis. 12.Cervical spondylosis with radiculopathy. 13.Gastroesophageal reflux disease. 14.Aortic stenosis. Plan: Admit patient to hospital for further evaluation and management of this problem. Patient is a ppropriate for inpatient and is expected to spend 2 midnight in hospital. Unfortunately, patient mad e a wrong decision in judgement regarding taking his oral hypoglycemic medication when he does not ne ed it and I suspect that is underlying reason for this hospital admission. Considering his end-stage renal disease, there is a good possibility that his oral hypoglycemic medication will have relativel y longer half-life than normal patients and we will have to monitor his fingerstick blood sugar very closely. I have ordered blood sugar monitoring every hour if glucose less than 80 then give half amp of D50 IV with glucose less than 70, then 1 amp of D50 IV to be given. His home medications will be continued. I will see him tomorrow morning for followup and the patient was advised that he should discontinue his diabetes medication and also was advised he should not make any changes as any of his medication without talking to physician. His sister was with him at bedside who will bring his home medications tonight for me to review tomorrow morning as I would like to verify all of his medicatio ns. ODESSA/MODL Voice ID: [id number]
[2019-04-28 05:09] LABS: Absolute Lymphocytes (CBC) 1.2 K/uL (0.7-4.9); Basophils % 1.5 % (0-1.3); Hematocrit 32.2 % (39.6-49.0); Lymphocytes % 17.5 % (15.3-44.8); MPV 10.4 fL (7.6-11.3); RBC Red Blood Cell Count 3.44 M/uL (4.33-5.43)
[2019-04-28 05:25] LABS: Potassium 3.6 mmol/L (3.5-5.1)
--- NOTE | 2019-04-28 08:25 | RAD REPORT ---
EXAM DESCRIPTION: RAD - Chest Single View - 04/28/2019 6:10 am CLINICAL HISTORY: Chest Pain Chest pain. COMPARISON: Chest Single View dated 04/27/2019; Chest Single View dated 03/25/2019; Chest Single View dated 03/11/2019; Chest Single View dated 03/10/2019 FINDINGS: Portable technique limits examination quality. Mild interstitial pulmonary edema. The heart is moderately enlarged in size with a multi lead pacer/d efibrillator device. Tip of the ET tube is above the jamia appear IMPRESSION: Mild CHF.
[2019-04-28] MEDS: ASPIRIN EC 81 MG TAB PO SCH (10:44)
[2019-04-28] MEDS: HEPARIN 5000 UNIT/ML 1 ML VIAL SQ SCH ×2 (10:44→20:34)
--- NOTE | 2019-04-28 10:59 | EKG ---
Test Date: 2019-04-28 Test Time: 08:27:27 Verifier Operator: BARBARA MEASUREMENT RESULTS: Intervals: Rate: 78 MN: 170 QRSD: 154 QT: 486 QTc: 554 [place]: P: 28 MN: 170 QRS: -78 T: 90 INTERPRETIVE STATEMENTS: Electronic ventricular pacemaker Compared to ECG 04/27/2019 14:46:56 No significant changes Electronically Signed On 04-28-19 10:58:11 ACUTE CARE REGISTERED NURSE by Bhupendra Samson
--- NOTE | 2019-04-28 11:01 | EKG ---
Test Date: 2019-04-27 Test Time: 14:46:56 Manager Digital: BARBARA MEASUREMENT RESULTS: Intervals: Rate: 82 FL: 192 QRSD: 156 QT: 472 QTc: 551 [place]: P: 5 FL: 192 QRS: -34 T: 135 INTERPRETIVE STATEMENTS: Electronic ventricular pacemaker Compared to ECG 03/25/2019 16:02:15 Sinus rhythm no longer present Atrial premature complex(es) no longer present Fusion complex(es) no longer present Ventricular premature complex(es) no longer present Left-axis deviation no longer present Electronically Signed On 04-28-19 10:58:29 GLASS SANDER BELT by Bhupendra Samson
--- NOTE | 2019-04-28 23:54 | CON ---
Date of Consultation: 04/28/2019 Reason For Consultation: Elevated BUN and creatinine, fluid management, end-stage renal disease. History Of Present Illness: This is a pleasant 79-year-old gentleman, well known to me from the dial ysis with significant past medical history of end-stage renal disease, on hemodialysis, Thursday, , Thursday at [facility], hypertension, hyperlipidemia, COPD status post tracheosto my, congestive heart failure secondary to coronary artery disease. The patient was in his regular [facility] visiting on the [facility] with altered mental, found to have that the patient has be en taking his oral diabetic medication. Patient was admitted for observation overnight. Lab showed elevated BUN and creatinine with electrolyte imbalance. For that reason, we have been consulted. Holland arciniega has a chronic shortness of breath. Past Medical History: Include, 1.Colon artery disease complicated with congestive heart failure. 2.COPD, status post tracheostomy. 3.End-stage renal disease, on hemodialysis on Thursday, Thursday, Thursday at [facility]. 4.Hyperlipidemia. Family History: Positive for hypertension and diabetes. Past Surgical History: Include, 1.Tracheostomy. 2.AV fistula creation. Allergies: TO CIPRO, MIDODRINE, AND IODINE. Review of Systems: Head and Neck: No red eye. No ear pain. GI: No nausea, no vomiting. : No polyuria, no dysuria, no hematuria. LACE PINNER: Not applicable. Respiratory: Has chronic shortness of breath. Cardiovascular: No chest pain. Endocrine: No polydipsia. Skin: No rash. Neuro: Generalized weakness, fatigue with altered. Musculoskeletal: Generalized fatigue. Home Medications: Include, 1.Zinc sulfate. 2.Allopurinol. 3.Nitroglycerin. 4.Gabapentin. 5.Breathing treatment. 6.Ergocalciferol. 7.Amiodarone. Current medications include Chacha, morphine, and Zofran. Physical Examination: General: When I saw the patient, the patient was sitting on bed. Vital Signs: Blood pressure of 95/51, pulse of 76, afebrile. Chest: Clear to auscultation. Heart: S1, S2. Systolic murmur. Abdomen: Soft. Nontender. Extremities: Trace edema. Neurologic: Alert and oriented x3. Nonfocal. Laboratory Data: H and H 10 and 32.2. Sodium 137, potassium 3.6, bicarb 28, BUN 15, creatinine 4.5, calcium 9.1. Assessment And Plan: 1.End-stage renal disease with electrolyte imbalance, normal volume. I am going to go ahead and arr randa for the dialysis tomorrow. 2.Hypotension. The patient will be dialyzed on sodium module and low temperature. 3.Congestive heart failure. We will try to establish better volume control tomorrow. 4.Anemia of chronic kidney disease. No need for JAIRO for the time being. 5.Chronic obstructive pulmonary disease exacerbation by primary. 6.Hypoglycemia by Dr. Salazar. ROLANDO/PATRICK Voice ID: [id number] Report ID: [id number]
[2019-04-29] MEDS: ALBUTEROL 2.5 MG/3 ML NEB SOL NEB PRN ×2 (01:08→12:15)
--- NOTE | 2019-04-29 01:28 | PN ---
Date of Progress Note: 04/28/2019 Subjective: Patient was seen this morning for followup. When I saw him this morning, he was still i n emergency room as he did not have any bed available for his admission. Denied any complaints overn ight. Objective: Vital Signs: Reviewed. HEENT: Unremarkable. Lungs: Clear to auscultation. Heart: Sounds normal. Abdomen: Soft. Bowel sounds normal. No guarding, rigidity, tenderness, distention. Extremities: Trace leg edema. Laboratory Data: White count 6.8, hemoglobin 10, platelets 128. Sodium 137, potassium 3.6, chloride 102, bicarb 28, BUN 15, creatinine 4.55, glucose 89. Fingerstick blood sugar done during nighttime revealed his glucose level was 64 at 1:34 a.m. Impression: 1.Hypoglycemia. 2.End-stage renal disease, on hemodialysis. 3.Chronic systolic congestive heart failure. 4.Chronic obstructive pulmonary disease. Plan: We will continue current medication. No need for any diabetes medication at this time. We wi ll consult supervisor [employer] for dialysis support and monitor fingerstick blood sugar hourly. Patient did require IV D50 insulin during nighttime because of his hypoglycemia problem. Fingerstick blood suga r every hour was ordered for nighttime with instruction to give 0.5 amp of D50 for glucose less than 80 and 1 amp of D50 for glucose less than 70. The patient has taken his oral hypoglycemic medication , which is sulfonylurea group of medications, and in view of his end-stage renal disease, I am afraid that half life of this medication will be longer than expected. Considering that close monitoring o f patient for hypoglycemia problem and intervention is critical and we will continue his frequent blood sugars checked and if necessary, give IV D50. We will see him tomorrow. ODESSA/MODL Voice ID: [id number] Report ID: [id number]
[2019-04-29 05:55] LABS: Albumin 2.9 g/dL (3.4-5.0); Phosphorus 3.4 mg/dL (2.5-4.9); Potassium 3.8 mmol/L (3.5-5.1)
[2019-04-29] MEDS: ASPIRIN EC 81 MG TAB PO SCH (08:54)
[2019-04-29] MEDS: HEPARIN 5000 UNIT/ML 1 ML VIAL SQ SCH (08:55)
[2019-04-29] MEDS: MIDODRINE HCL 5 MG TABLET PO ONE ×2 (11:34→15:19)
[2019-04-29 12:36] VITALS: O2SAT 100
--- NOTE | 2019-04-29 12:39 | P.PN ---
Subjective Date of Service: 04/29/19 Chief Complaint: AMS Subjective: Improving Pt with ESRD , admitted for AMS , found to have hypoglycemia today seen and examined during HD no new complaints Symptoms resolved can be discharged after dialysis from nephrology point of view Past Medical History: Include, 1. Colon artery disease complicated with congestive heart failure. 2. COPD, status post tracheostomy. 3. End-stage renal disease, on hemodialysis on Thursday, Thursday, Thursday at [place]. 4. Hyperlipidemia. Family History: Positive for hypertension and diabetes. Past Surgical History: Include, 1. Tracheostomy. 2. AV fistula creation. Physical Examination - Vital Signs Temperature: 97.3 F Blood Pressure: 97/54 Pulse: 82 Respirations: 16 Pulse Ox (%): 98 - Physical Exam General: In no apparent distress, Oriented x3, Obese HEENT: Atraumatic, Normocephalic Neck: Supple, JVD not distended, Without JVD or thyroid abnormality Respiratory: Diminished Cardiovascular: Regular rate/rhythm, Normal S1 S2, No rubs, No murmurs, Edema ( trace edema ) Gastrointestinal: Normal bowel sounds, Soft and benign Musculoskeletal: Swelling, Other (Rt foot dressing ) Integumentary: No rashes Assessment And Plan - Plan End-stage renal disease, will cont HD MWF renal dose meds AMS due to hypoglycemia resolved Anemia of chronic disease no need for Epogen at this time MBD Cont binders HTN BP borderline Cont midodrine on HD days COPD cont inhalers
[2019-04-29] MEDS ORDERED: NA CHLORIDE 0.9% 250 ML ONE (16:44)
[2019-04-29 17:12] VITALS: BP 81/52; TEMP 96.9
[2019-04-29] MEDS ORDERED: JUVEN PACKET PO SCH (21:00)
--- NOTE | 2019-04-29 23:17 | DS ---
Date of Discharge: 04/29/2019 History: Patient was seen this morning for followup. He was sitting in chair, denied any complaints . Physical Examination: Vital Signs: Reviewed. HEENT: Unremarkable. Lungs: Clear to auscultation. No rhonchi or rales. Heart: Heart sounds normal. Abdomen: Soft, bowel sounds normal. No guarding, rigidity, tenderness, or distention. Extremities: No leg edema. Laboratory Data: Labs done during this hospitalization. Upon admission, white count 7.4, hemoglobin 10.6, platelets 153. Glucose upon arrival was 57, BUN 12, creatinine 3.56. Potassium 3.4. Hospital Course: An 79-year-old male patient admitted to the hospital with low blood sugar problem. Please see dictated H and P for more information. Patient came into emergency room with low blood s ugar and was treated in the ER and he was admitted to the hospital. Upon further questioning, I foun d out that the patient actually started taking his diabetes medication, which is glipizide 5 mg daily days on his own without asking any physician. This is actually an old prescription and t his particular medication he was taking, but it was discontinued at least 1 or 2 years ago as he no l onger needed it. I am not quite clear on why all of a sudden the patient started taking this medicat ion on his own without asking anybody, but in any case this medication resulted in hypoglycemia probl em requiring him to be in the hospital this time. He required IV D50 administration. We initially c hecked his blood sugar every hour and then subsequently once his blood sugar stabilized, we changed i t to every 4 hours. He does not have any more hypoglycemia problem now. He was counseled in detail not to take his diabetes medication, in fact the prescription he has is old prescription and he showe d me this particular bottle and with his permission I took the medication bottle away from him and ga ve it to the charge nurse to discard this medication available at home. The patient will have dialysis today and after that we will discharge him to go home. He saw Dr. Guajardo couple of d ays ago for his followup . Final Diagnoses: 1.Hypoglycemia. 2.End-stage renal disease, on hemodialysis. 3.Chronic obstructive pulmonary disease. 4.Coronary artery disease. 5.Chronic systolic congestive heart failure. 6.Anemia due to chronic kidney disease. 7.Hypokalemia. 8.Obstructive sleep apnea. 9.Osteomyelitis, right foot. 10.Allergic rhinitis. 11.Osteoarthritis, multiple sites. 12.Diverticulosis. 13.Cervical spondylosis with radiculopathy. 14.Gastroesophageal reflux disease. 15.Aortic stenosis. ODESSA/MODL Voice ID: [id number] Report ID: [id number]
[2019-05-03 04:53] LABS: HBsAG Nonreactive (Nonreactive)
== END 2019-04-29 19:00 | disposition home health service (06) ==
LOC: ER 13:50 → INTOOBSV 17:59 → OBSVTOIN 17:59 → ERHOLD 17:59 → 2ND 04-28 09:40
PROVIDERS: ADMIT Internal Medicine; ATTEND Internal Medicine
DX: E11.649 Type 2 diabetes mellitus with hypoglycemia without coma (principal); I13.2 Hypertensive heart and chronic kidney disease with heart failure and with stage 5 chronic kidney disease, or end stage renal disease; E11.22 Type 2 diabetes mellitus with diabetic chronic kidney disease; N18.6 End stage renal disease; I50.22 Chronic systolic (congestive) heart failure; I25.10 Atherosclerotic heart disease of native coronary artery without angina pectoris; J44.9 Chronic obstructive pulmonary disease, unspecified; E78.5 Hyperlipidemia, unspecified; R01.1 Cardiac murmur, unspecified; E66.9 Obesity, unspecified; Z68.36 Body mass index [BMI] 36.0-36.9, adult; Z99.2 Dependence on renal dialysis; Z95.810 Presence of automatic (implantable) cardiac defibrillator; Z91.013 Allergy to seafood; D63.1 Anemia in chronic kidney disease; E87.6 Hypokalemia; G47.33 Obstructive sleep apnea (adult) (pediatric); E11.69 Type 2 diabetes mellitus with other specified complication; M86.8X7 Other osteomyelitis, ankle and foot; J30.9 Allergic rhinitis, unspecified; M19.90 Unspecified osteoarthritis, unspecified site; K57.90 Diverticulosis of intestine, part unspecified, without perforation or abscess without bleeding; K21.9 Gastro-esophageal reflux disease without esophagitis; I35.0 Nonrheumatic aortic (valve) stenosis
CPT/HCPCS: 96361; 93005 ×2; 85025 ×2; 80048 ×2; 36415 ×2; 83735; 85610; 82947 ×19; 80076; 80069; 84484 ×3; 83690; 86317; 83880; 87340; 71045 ×2; 90935 ×2; 94640; 96374; 99285; J1644 ×4; J7030; J7040; G0378 ×4

== ENCOUNTER 2019-05-17 23:28 | Inpatient (IN) | payer OTHER, MEDICARE ==
--- OUTSIDE RECORDS SUMMARY | 2019-05-17 23:31 | XMS REPORT ---
[...] End Status Dosage System Date Date Aspirin [facility] [address]-01 Active not defined Nitroglycerin [facility] [address]-54 Active not defined Allopurinol [facility] [id number] Active not defined Vitamin A NDC 0 Active not defined Albuterol Sulfate [facility] [address]-46 Active not defined Renvela [facility] [address]-05 Active not defined Midodrine HCl [facility] [id number] 10 MG Oral Active not defined Fluticasone [facility] [address]-60 Active not Propionate defined Ferrous Sulfate [facility] 96130-48527 Active not defined Omeprazole [facility] 06416323833 Active not defined Gabapentin [facility] [address]-40 Active not defined clopidogrel NDC 0 Active not defined Ipratropium [facility] [address]-15 Active not [place] defined Prednisone ND 0 Active not defined Results No Known Results Summary Purpose eClinicalWorks Submission
--- OUTSIDE RECORDS SUMMARY | 2019-05-17 23:31 | XMS REPORT ---
:1940 [facility] Address [address] [place] [address] Dr. Vargas [address] [place] [id number] Care Team Providers Name Role Phone Unavailable Unavailable Unavailable Problems This patient has no known problems. Allergies, Adverse Reactions, Alerts This patient has no known allergies or adverse reactions. Medications This patient has no known medications.
[2019-05-17] MEDS ORDERED: IPRATROPIUM BROM 0.5MG/2.5ML ONE (23:41)
[2019-05-17] MEDS ORDERED: METHYLPREDNISOLONE 125 MG INJ ONE (23:41)
[2019-05-17] MEDS ORDERED: LEVALBUTEROL 1.25 MG/3 ML NEB ONE (23:41)
--- NOTE | 2019-05-18 00:47 | ER ---
Nurse's Notes [facility] Name: Sergio Perez Age: 79 yrs Sex: Male : 1940 Arrival Date: 05/17/2019 Time: 23:30 Bed 5 Private MD: Diagnosis: Dyspnea;Cardiomegaly;Type 2 diabetes mellitus;End stage renal disease-on HD;Chronic obstructive pulmonary disease with (acute) exacerbation;Tracheostomy status Presentation: 05/17 23:30 Presenting complaint: EMS states: SOB since this morning, getting worse. wet productive ch cough. 94% RA but RR over 40, gasping with rales. Transition of care: patient was not received from another setting of care. Onset of symptoms was May 17, 2019 at 09:00. Risk Assessment: Do you want to hurt yourself or someone else? Patient reports no desire to harm self or others. Initial Sepsis Screen: Does the patient meet any 2 criteria? No. Patient's initial sepsis screen is negative. Does the patient have a suspected source of infection? No. Patient's initial sepsis screen is negative. Care prior to arrival: None. 23:30 Method Of Arrival: EMS: [facility] 23:30 Acuity: KARLENE 3 ch Triage Assessment: 23:32 General: Appears distressed, Behavior is cooperative. Pain: Complains of pain in chest. ch Respiratory: Reports shortness of breath at rest Onset: The symptoms/episode began/occurred this morning, the patient has moderate shortness of breath. Historical: - Allergies: 23:32 Demerol; ch 23:32 Iodine; ch 23:32 Meperidine; ch 23:32 SHELLFISH; ch - Home Meds: 05/18 01:23 albuterol sulfate 2.5 mg /3 mL (0.083 %) Inhl nebu 1 vial daily [Active]; allopurinol lp1 200 mg Oral 2 tabs daily [Active]; amiodarone 200 mg Oral tab 0.5 tab daily [Active]; aspirin 81 mg Oral chew 1 tab twice daily [Active]; clopidogrel 75 mg Oral tab 1 tab once daily [Active]; Ferrous Sulfate 65 mg Oral 1x daily [Active]; fluticasone 50 mcg/actuation nasal spsn 1 spray 2 times per day [Active]; gabapentin Oral 1 tab 3 times per day [Active]; indura 800 mg 2 tabs before each meal TID [Active]; ipratropium bromide 0.02 % inhalation soln 2.5 mL 4 times per day [Active]; nitroglycerin 0.4 mg Oral as needed [Active]; omeprazole 20 mg Oral chew twice a day [Active]; Tums Oral 2 tabs per meal [Active]; vitamin A 8,000 unit Oral cap 1 cap once daily [Active]; vitamin d1 tablet 2000 IU daily [Active]; zinc sulfate 220 (50) mg Oral cap daily [Active]; - PMHx: 05/17 23:32 CHF; COPD; Diabetes - NIDDM; Dialysis; M-W-F; ESRD; GERD; Gout; Hypertension; ch Pacemaker; with defib; - PSHx: 23:32 L arm fistula; defib and pacemaker; cardiac cath; ch - Immunization history:: Adult Immunizations up to date. - Coronavirus screen:: The patient has NOT traveled to [place], [place], or [place] in the past 14 days. The patient has NOT had contact with known/suspected case of Coronavirus?. - Social history:: Smoking status: Patient/guardian denies using tobacco. - Family history:: not pertinent. - Ebola Screening: : Patient negative for fever greater than or equal to 101.5 degrees Fahrenheit, and additional compatible Ebola Virus Disease symptoms Patient denies exposure to infectious person Patient denies travel to an Ebola-affected area in the 21 days before illness onset No symptoms or risks identified at this time. Screenin:43 Abuse screen: Denies threats or abuse. Denies injuries from another. Nutritional lp1 screening: No deficits noted. Tuberculosis screening: No symptoms or risk factors identified. Fall Risk Total Dodson Fall Scale indicates High Risk Score (45 or more points). Fall prevention measures have been instituted. Side Rails Up X 2 As available patient and family educated on Fall Prevention Program and Strategies. Assessment: 23:41 General: Appears uncomfortable, Behavior is appropriate for age. Pain: Denies pain. lp1 Neuro: Level of Consciousness is awake, alert, obeys commands, Oriented to person, place, situation. Cardiovascular: Patient's skin is warm and dry. Rhythm is atrial pacer Dialysis shunt: in the left bicep, with palpable thrill. Respiratory: Reports shortness of breath at rest Airway is patent Trachea midline Respiratory effort is labored, Respiratory pattern is regular, trach tube in place Breath sounds are diminished in left posterior lower lobe and right posterior lower lobe. GI: Abdomen is non-distended. : No signs and/or symptoms were reported regarding the genitourinary system. EENT: No signs and/or symptoms were reported regarding the EENT system. Derm: Skin is intact, Skin is dry, Skin is normal. Musculoskeletal: No deficits noted. 05/18 00:30 Reassessment: Patient appears in no apparent distress at this time. Patient states lp1 symptoms have improved. Respiratory: Respiratory effort is even, unlabored. 00:45 Reassessment: Unable to collect labs; Phlebotomy called. lp1 01:15 Reassessment: Patient appears in no apparent distress at this time. Neuro: Level of lp1 Consciousness is awake, alert, obeys commands. Respiratory: Respiratory effort is even, Respiratory pattern is regular, symmetrical. 02:15 Reassessment: Patient appears in no apparent distress at this time. Patient resting, lp1 eyes closed, respirations unlabored. Vital Signs: 05/17 23:40 BP 135 / 109; Pulse 96; Resp 28; Pulse Ox 96% on R/A; Weight 117.93 kg (R); Height 5 lp1 ft. 11 in. (180.34 cm); 05/18 00:45 BP 100 / 60; Pulse 89; Resp 20; Temp 97.5(TE); Pulse Ox 94% on R/A; lp1 01:15 BP 102 / 61; Pulse 95; Resp 21; Pulse Ox 93% on R/A; lp1 02:00 BP 123 / 70; Pulse 96; Resp 20; Pulse Ox 97% on R/A; lp1 02:30 BP 128 / 77; Pulse 90; Resp 20; Pulse Ox 95% on R/A; lp1 03:00 BP 119 / 67; Pulse 89; Resp 20; Pulse Ox 95% on R/A; lp1 05/17 23:40 Body Mass Index 36.26 (117.93 kg, 180.34 cm) lp1 ED Course: 05/17 23:30 Patient arrived in ED. ch 23:30 Mickey Bro MD is Attending Physician. tono 23:31 Triage completed. ch 23:32 Arm band placed on left wrist. Patient placed in an exam room, on a stretcher, on oxygen, on school lunch monitor, on pulse oximetry. 23:34 Asha Cuevas RN is Primary Nurse. lp1 23:40 Patient has correct armband on for positive identification. Placed in gown. Bed in low lp1 position. Side rails up X2. school lunch monitor on. Pulse ox on. NIBP on. 23:50 Missed attempt(s): 18 gauge in right forearm. 20 gauge in right forearm. Bleeding ds4 controlled, band aid applied, catheter tip intact. 05/18 00:30 Inserted saline lock: 22 gauge in right forearm, using aseptic technique. lp1 00:40 Anmol Salazar MD is Hospitalizing Provider. [facility] 01:00 Missed attempt(s): 22 gauge in right wrist. 01:08 Inserted 18 gauge 10 cm midline to right upper arm brachial vein on first attempt. Line fc with good blood return and flushes well. 01:21 No provider procedures requiring assistance completed. Patient admitted, IV remains in lp1 place. 22g IV to R FA DC'd. 02:36 Notified ED physician of a critical lab result(s). creat of 6.71. fc Administered Medications: 05/17 23:40 Drug: Xopenex 3.75 mg Route: Inhalation; lp1 23:40 Drug: AtroVENT Aerosol 0.5 mg Route: Inhalation; lp1 02 00:35 Drug: SOLU-Medrol 125 mg Route: IVP; Site: right forearm; lp1 01:18 Follow up: Response: No adverse reaction lp1 01:18 Drug: Zosyn 3.375 grams Route: IVPB; Infused Over: 60 mins; Site: right upper arm; lp1 02:29 Follow up: IV Status: Completed infusion; IV Intake: 100ml lp1 Intake: 02:29 IV: 100ml; Total: 100ml. lp1 Outcome: 00:44 Decision to Hospitalize by Provider. tono 01:23 Condition: stable lp1 01:23 Instructed on the need for admit. 01:52 Admitted to Med/surg via stretcher, room 230, with chart, Report called to SHAI Islas lp1 03:27 Patient left the ED. lp1 Signatures: Ngozi Allred RN RN ch Anderson, Corey, MD MD cha Chretien, Felicia, RN RN Asha Cuevas RN RN lp1 Luigi Hernandez ds4 Corrections: (The following items were deleted from the chart) 05/17 23:45 23:40 BP 135 / 109; Pulse 96bpm; Resp 28bpm; Pulse Ox 96% RA; lp1 lp1 05/18 01:23 00:45 BP 100 / 60; Pulse 89bpm; Resp 20bpm; Pulse Ox 94% RA; lp1 lp1
--- NOTE | 2019-05-18 00:47 | EDPHYS ---
Physician Documentation [facility] Name: Sergio Perez Age: 79 yrs Sex: Male : 1940 Arrival Date: 05/17/2019 Time: 23:30 Bed 5 Private MD: ED Physician Mickey Bro HPI: 05/17 23:32 This 79 yrs old Black Male presents to ER via EMS with complaints of Shortness Of tono Breath. 23:32 The patient has shortness of breath at rest, with light activity. Onset: The tono symptoms/episode began/occurred 2 day(s) ago. Duration: The symptoms are continuous, and are steadily getting worse. The patient's shortness of breath is aggravated by. Associated signs and symptoms: Pertinent positives: non-productive cough. Severity of symptoms: At their worst the symptoms were moderate in the emergency department the symptoms are unchanged. The patient has experienced similar episodes in the past, multiple times. Historical: - Allergies: 23:32 Demerol; ch 23:32 Iodine; ch 23:32 Meperidine; ch 23:32 SHELLFISH; ch - Home Meds: 05/18 01:23 albuterol sulfate 2.5 mg /3 mL (0.083 %) Inhl nebu 1 vial daily [Active]; allopurinol lp1 200 mg Oral 2 tabs daily [Active]; amiodarone 200 mg Oral tab 0.5 tab daily [Active]; aspirin 81 mg Oral chew 1 tab twice daily [Active]; clopidogrel 75 mg Oral tab 1 tab once daily [Active]; Ferrous Sulfate 65 mg Oral 1x daily [Active]; fluticasone 50 mcg/actuation nasal spsn 1 spray 2 times per day [Active]; gabapentin Oral 1 tab 3 times per day [Active]; indura 800 mg 2 tabs before each meal TID [Active]; ipratropium bromide 0.02 % inhalation soln 2.5 mL 4 times per day [Active]; nitroglycerin 0.4 mg Oral as needed [Active]; omeprazole 20 mg Oral chew twice a day [Active]; Tums Oral 2 tabs per meal [Active]; vitamin A 8,000 unit Oral cap 1 cap once daily [Active]; vitamin d1 tablet 2000 IU daily [Active]; zinc sulfate 220 (50) mg Oral cap daily [Active]; - PMHx: 05/17 23:32 CHF; COPD; Diabetes - NIDDM; Dialysis; M-W-F; ESRD; GERD; Gout; Hypertension; ch Pacemaker; with defib; - PSHx: 23:32 L arm fistula; defib and pacemaker; cardiac cath; ch - Immunization history:: Adult Immunizations up to date. - Coronavirus screen:: The patient has NOT traveled to [place], [place], or [place] in the past 14 days. The patient has NOT had contact with known/suspected case of Coronavirus?. - Social history:: Smoking status: Patient/guardian denies using tobacco. - Family history:: not pertinent. - Ebola Screening: : Patient negative for fever greater than or equal to 101.5 degrees Fahrenheit, and additional compatible Ebola Virus Disease symptoms Patient denies exposure to infectious person Patient denies travel to an Ebola-affected area in the 21 days before illness onset No symptoms or risks identified at this time. ROS: 23:32 Constitutional: Negative for fever, chills, and weight loss, Eyes: Negative for injury, tono pain, redness, and discharge, ENT: Negative for injury, pain, and discharge, Neck: Negative for injury, pain, and swelling, Cardiovascular: Negative for chest pain, palpitations, and edema, Abdomen/GI: Negative for abdominal pain, nausea, vomiting, diarrhea, and constipation, Back: Negative for injury and pain, : Negative for injury, bleeding, discharge, and swelling, MS/Extremity: Negative for injury and deformity, Skin: Negative for injury, rash, and discoloration, Neuro: Negative for headache, weakness, numbness, tingling, and seizure, Psych: Negative for depression, anxiety, suicide ideation, homicidal ideation, and hallucinations, Allergy/Immunology: Negative for hives, rash, and allergies, Endocrine: Negative for neck swelling, polydipsia, polyuria, polyphagia, and marked weight changes, Hematologic/Lymphatic: Negative for swollen nodes, abnormal bleeding, and unusual bruising. 23:32 Respiratory: Positive for cough, shortness of breath, at rest. Exam: 23:32 Constitutional: This is a well developed, well nourished patient who is awake, alert, tono and in no acute distress. Head/Face: Normocephalic, atraumatic. Eyes: Pupils equal round and reactive to light, extra-ocular motions intact. Lids and lashes normal. Conjunctiva and sclera are non-icteric and not injected. Cornea within normal limits. Periorbital areas with no swelling, redness, or edema. ENT: Nares patent. No nasal discharge, no septal abnormalities noted. Tympanic membranes are normal and external auditory canals are clear. Oropharynx with no redness, swelling, or masses, exudates, or evidence of obstruction, uvula midline. Mucous membranes moist. Neck: Trachea midline, no thyromegaly or masses palpated, and no cervical lymphadenopathy. Supple, full range of motion without nuchal rigidity, or vertebral point tenderness. No Meningismus. Chest/axilla: Normal chest wall appearance and motion. Nontender with no deformity. No lesions are appreciated. Cardiovascular: Regular rate and rhythm with a normal S1 and S2. No gallops, murmurs, or rubs. Normal PMI, no JVD. No pulse deficits. Abdomen/GI: Soft, non-tender, with normal bowel sounds. No distension or tympany. No guarding or rebound. No evidence of tenderness throughout. Back: No spinal tenderness. No costovertebral tenderness. Full range of motion. Male : Normal genitalia with no discharge or lesions. Skin: Warm, dry with normal turgor. Normal color with no rashes, no lesions, and no evidence of cellulitis. MS/ Extremity: Pulses equal, no cyanosis. Neurovascular intact. Full, normal range of motion. Neuro: Awake and alert, GCS 15, oriented to person, place, time, and situation. Cranial nerves II-XII grossly intact. Motor strength 5/5 in all extremities. Sensory grossly intact. Cerebellar exam normal. Normal gait. Psych: Awake, alert, with orientation to person, place and time. Behavior, mood, and affect are within normal limits. 23:32 Respiratory: mild respiratory distress is noted, Respirations: labored breathing, that is mild, Breath sounds: decreased breath sounds, rhonchi, wheezing: expiratory Vital Signs: 23:40 BP 135 / 109; Pulse 96; Resp 28; Pulse Ox 96% on R/A; Weight 117.93 kg (R); Height 5 lp1 ft. 11 in. (180.34 cm); 05/18 00:45 BP 100 / 60; Pulse 89; Resp 20; Temp 97.5(TE); Pulse Ox 94% on R/A; lp1 01:15 BP 102 / 61; Pulse 95; Resp 21; Pulse Ox 93% on R/A; lp1 02:00 BP 123 / 70; Pulse 96; Resp 20; Pulse Ox 97% on R/A; lp1 02:30 BP 128 / 77; Pulse 90; Resp 20; Pulse Ox 95% on R/A; lp1 03:00 BP 119 / 67; Pulse 89; Resp 20; Pulse Ox 95% on R/A; lp1 02/04 23:40 Body Mass Index 36.26 (117.93 kg, 180.34 cm) lp1 MDM: 02 23:30 Patient medically screened. [facility] 23:35 Data reviewed: vital signs, nurses notes, lab test result(s), EKG, radiologic studies, tono plain films. 05/17 23:32 Order name: Basic Metabolic Panel [facility] 05/17 23:32 Order name: CBC with Diff [facility] 05/17 23:32 Order name: LFT's [facility] 05/17 23:32 Order name: Magnesium [facility] 05/17 23:32 Order name: NT PRO-BNP [facility] 05/17 23:32 Order name: PT-INR [facility] 05/17 23:32 Order name: Troponin (emerg Dept Use Only) [facility] 05/17 23:32 Order name: Blood Culture Adult (2) [facility] 05/18 00:45 Order name: Flu [facility] 05/18 03:25 Order name: Basic Metabolic Panel [facility] 05/18 03:25 Order name: Liver (Hepatic) Function [facility] 05/18 03:25 Order name: Troponin (Emerg Dept Use Only) [facility] 05/18 03:25 Order name: NT PRO-BNP [facility] 05/18 03:25 Order name: Magnesium [facility] 05/17 23:32 Order name: XRAY Chest (1 view) [facility] 05/17 23:32 Order name: EKG; Complete Time: 23:33 [facility] 05/17 23:32 Order name: Cardiac monitoring; Complete Time: 00:05 [facility] 05/17 23:32 Order name: EKG - Nurse/Tech; Complete Time: 00:46 [facility] 05/17 23:32 Order name: IV Saline Lock; Complete Time: 00:46 [facility] 05/17 23:32 Order name: Labs collected and sent; Complete Time: 00:46 [facility] 05/17 23:32 Order name: O2 Per Protocol; Complete Time: 00:05 tono 05/17 23:32 Order name: O2 Sat Monitoring; Complete Time: 00:05 [facility] Administered Medications: 23:40 Drug: Xopenex 3.75 mg Route: Inhalation; lp1 23:40 Drug: AtroVENT Aerosol 0.5 mg Route: Inhalation; lp1 05/18 00:35 Drug: SOLU-Medrol 125 mg Route: IVP; Site: right forearm; lp1 01:18 Follow up: Response: No adverse reaction lp1 01:18 Drug: Zosyn 3.375 grams Route: IVPB; Infused Over: 60 mins; Site: right upper arm; lp1 02:29 Follow up: IV Status: Completed infusion; IV Intake: 100ml lp1 Disposition: 05/18/19 00:44 Hospitalization ordered by Anmol Salazar for Inpatient Admission. Preliminary diagnosis are Dyspnea, Cardiomegaly, Type 2 diabetes mellitus, End stage renal disease - on HD, Chronic obstructive pulmonary disease with (acute) exacerbation, Tracheostomy status. - Bed requested for Telemetry/MedSurg (Inpatient). - Status is Inpatient Admission. lp1 - Condition is Fair. - Problem is new. - Symptoms have improved. Signatures: Dispatcher [employer] EDMS Ngozi Allred RN RN Mickey Bro MD MD cha Chretien, Felicia, RN SHAI Asha Cuevas RN RN lp1 Corrections: (The following items were deleted from the chart) 00:48 00:44 Hospitalization Ordered by Anmol Salazar MD for Inpatient Admission. Preliminary fc diagnosis is Dyspnea; Cardiomegaly; Type 2 diabetes mellitus; End stage renal disease - on HD; Chronic obstructive pulmonary disease with (acute) exacerbation; Tracheostomy status. Bed requested for Telemetry/MedSurg (Inpatient). Status is Inpatient Admission. Condition is Fair. Problem is new. Symptoms have improved. [facility] 00:54 00:48 05/18/2019 00:44 Hospitalization Ordered by Anmol Salazar MD for Inpatient fc Admission. Preliminary diagnosis is Dyspnea; Cardiomegaly; Type 2 diabetes mellitus; End stage renal disease - on HD; Chronic obstructive pulmonary disease with (acute) exacerbation; Tracheostomy status. Bed requested for Telemetry/MedSurg (Inpatient). Status is Inpatient Admission. Condition is Fair. Problem is new. Symptoms have improved. fc 03:27 00:54 05/18/2019 00:44 Hospitalization Ordered by Anmol Salazar MD for Inpatient lp1 Admission. Preliminary diagnosis is Dyspnea; Cardiomegaly; Type 2 diabetes mellitus; End stage renal disease - on HD; Chronic obstructive pulmonary disease with (acute) exacerbation; Tracheostomy status. Bed requested for Telemetry/MedSurg (Inpatient). Status is Inpatient Admission. Condition is Fair. Problem is new. Symptoms have improved.
[2019-05-18] MEDS ORDERED: PIPER/TAZO/NS 3.375gm 3.375 GM/100 ML BAG ONE (01:01)
[2019-05-18 03:20] LABS: Albumin 3.3 g/dL (3.4-5.0); Bilirubin Direct 0.1 mg/dL (0-0.2); Bilirubin Total 0.4 mg/dL (0.2-1.0); Magnesium 2.1 mg/dL (1.8-2.4); Potassium 4.4 mmol/L (3.5-5.1); Protein, Total 7.1 g/dL (6.4-8.2); Troponin (Emerg Dept Use Only) 0.06 ng/mL (0.0-0.045)
[2019-05-18 03:22] LABS: Absolute Lymphocytes (CBC) 1.7 K/uL (0.7-4.9); Basophils % 0.9 % (0-1.3); Hematocrit 30.8 % (39.6-49.0); MPV 10.4 fL (7.6-11.3); Protime INR 1.08; RBC Red Blood Cell Count 3.29 M/uL (4.33-5.43)
[2019-05-18] MEDS: METHYLPREDNISOLONE 40 MG INJ IV SCH ×3 (03:45→17:13)
[2019-05-18] MEDS ORDERED: ONDANSETRON 4 MG/2 ML VIAL IV PRN (03:45)
[2019-05-18] MEDS ORDERED: ACETAMINOPHEN 325 MG TABLET PO PRN (03:45)
[2019-05-18] MEDS ORDERED: MORPHINE 4 MG/ML SYR IV PRN (03:45)
[2019-05-18 04:10] VITALS: BMI 37.4
--- NOTE | 2019-05-18 08:34 | RAD REPORT ---
EXAM DESCRIPTION: Zhanna Single View05/18/2019 12:13 am CLINICAL HISTORY: Cough COMPARISON: 2018 FINDINGS: Mild bilateral pulmonary opacities The heart is moderately enlarged Tracheostomy tube in place. Pacemaker leads are in place. IMPRESSION: Mild CHF
[2019-05-18] MEDS ORDERED: ASPIRIN EC 81 MG TAB PO SCH (09:00)
--- NOTE | 2019-05-18 09:10 | EKG ---
Test Date: 2019-05-18 Test Time: 00:44:40 Cement Worker: SANA MEASUREMENT RESULTS: Intervals: Rate: 94 MT: 160 QRSD: 150 QT: 444 QTc: 555 [place]: P: 30 MT: 160 QRS: -71 T: 76 INTERPRETIVE STATEMENTS: Electronic ventricular pacemaker Compared to ECG 04/28/2019 08:27:27 No significant changes Electronically Signed On 05-18-19 09:09:42 STORAGE RECEIPT POSTER by Thomas Middleton
[2019-05-18] MEDS: PIPER/TAZO/NS 2.25gm 2.25 GM/50 ML BAG IVPB SCH ×3 (09:12→21:49)
[2019-05-18] MEDS: IPRATROPIUM BROM 0.5MG/2.5ML NEB PRN (09:30)
[2019-05-18] MEDS: ALBUTEROL 2.5 MG/3 ML NEB SOL NEB PRN ×2 (09:30→13:00)
[2019-05-18] MEDS ORDERED: NITROGLYCERIN 0.4 MG/TAB SL PRN (09:56)
[2019-05-18] MEDS: ARFORMOTEROL TARTRATE 15 MCG/2 ML VIAL.NEB NEB SCH ×2 (11:43→21:00)
[2019-05-18] MEDS ORDERED: GLUCAGON 1 MG/VIAL IM PRN (11:56)
[2019-05-18] MEDS ORDERED: D50W 25 GM/50 ML SYRINGE/VIAL IV PRN (11:56)
[2019-05-18] MEDS: INSULIN -REGULAR HUMAN 50 UNIT/0.5 ML ML SQ SCH ×4 (12:08→21:00)
[2019-05-18] MEDS: IPRATROPIUM BROM 0.5MG/2.5ML IH SCH ×3 (13:00→21:00)
[2019-05-18] MEDS: GABAPENTIN 100 MG CAP PO SCH ×2 (15:31→21:51)
[2019-05-18] MEDS ORDERED: MIDODRINE HCL 5 MG TABLET PO PRN (16:17)
[2019-05-18] MEDS ORDERED: EPOETIN 4,000 UNIT/ML VIAL IV SCH (16:45)
[2019-05-18] MEDS: [UNRECOGNIZED DRUG - REMARK] IH SCH (21:00)
--- NOTE | 2019-05-18 21:41 | CON ---
Date of Consultation: 05/18/2019 Reason For Consultation: Elevated BUN and creatinine, over volume, hypertension. History Of Present Illness: This is a pleasant 79-year-old gentleman, well known to me from dialysis with significant past medical history of coronary artery disease complicated with congestive heart f ailure, COPD, end-stage renal disease, on hemodialysis, Thursday, Thursday, Thursday at [facility], hyperlipidemia, chronic shortness of breath, status post tracheostomy. Patient came to [facility] as yesterday in the midnight started having chest tightness with shortness of breath. Up on evaluation in the ER, found to be over volume. For that reason, patient was admitted. Patient to day is feeling still short of breath. No nausea, no vomiting. Patient had dialysis on Thursday and eventful. Past Medical History: 1.Coronary artery disease complicated with congestive heart failure. 2.COPD with chronic shortness of breath status post tracheostomy. 3.End-stage renal disease, on hemodialysis Thursday, Thursday, Thursday at [facility]. 4.Hyperlipidemia. Family History: Positive for hypertension and diabetes. Past Surgical History: Positive for tracheostomy, AV fistula placement. Allergies: CIPRO, MIDODRINE, IODINE. Review of Systems: Head and Neck: Has a tracheostomy. Has neck pain. GI: No nausea, no vomiting. : No polyuria, no dysuria, no hematuria. Steward/Stewardess Wine: Not applicable. Respiratory: Has chronic shortness of breath. Cardiovascular: Has orthopnea. Endocrine: No polydipsia. Skin: No rash. Neuro: Has neuropathy. Musculoskeletal: Generalized fatigue. Home Medications: Include zinc sulfate, allopurinol, nitroglycerin, gabapentin, breathing treatment, ergocalciferol, and amiodarone. Physical Examination: General: When I saw the patient, patient was lying in bed with his tracheostomy on trach collar. Vital Signs: Blood pressure 115/58, pulse of 84. Chest: Crackles bilateral base. Heart: S1-S2 regular. Abdomen: Soft, nontender. Extremities: Plus edema. Neurologic: Alert and oriented x3. No focal. Laboratory Data: H and H 9.6/30.8. Sodium 139, potassium 4.4, bicarb 29, BUN 30, creatinine 6.7, ca lcium of 9. BNP 3800. Imaging Studies: Chest x-ray: Cardiomegaly with congestion. Assessment And Plan: 1.End-stage renal disease, over volume. We will dialyze the patient today and we will do sequential tomorrow. 2.Hypertension, currently low blood pressure. We will use midodrine to support the blood pressure o n dialysis and we will use sodium module. 3.Over volume. We will use sodium module to establish better blood pressure to be able to ultrafilt rate. 4.Chronic obstructive pulmonary disease. Continue follow up with primary. Continue breathing treat ment. 5.Congestive heart failure with exacerbation as above. GERI Voice ID: [id number] Report ID: [id number]
[2019-05-18] MEDS: PANTOPRAZOLE 40MG TABLET PO SCH (21:51)
[2019-05-18] MEDS: NA CHLORIDE 0.9% 250 ML ONE (22:56)
[2019-05-19] MEDS: PIPER/TAZO/NS 2.25gm 2.25 GM/50 ML BAG IVPB SCH (01:00)
[2019-05-19] MEDS: CALCIUM CARBONATE CHEW 500MG TAB PO SCH ×2 (01:22→08:21)
[2019-05-19] MEDS: METHYLPREDNISOLONE 40 MG INJ IV SCH ×2 (01:23→08:19)
[2019-05-19] MEDS: IPRATROPIUM BROM 0.5MG/2.5ML NEB PRN (05:03)
[2019-05-19] MEDS: ALBUTEROL 2.5 MG/3 ML NEB SOL NEB PRN ×2 (05:03→15:40)
--- NOTE | 2019-05-19 05:16 | HP ---
Date of Admission: 05/18/2019 Chief Complaint: Shortness of breath. History Of Present Illness: This is an 79-year-old pleasant male patient who came into emergency malcom with complaints of shortness of breath that started yesterday. He denies any fever, chills, nausea , vomiting, not coughing up any mucus. After he was evaluated in the emergency room, he was admitted to the hospital with acute exacerbation of COPD problem. When I saw him this morning, he was feelin g a little bit better compared to last night. Allergies: TO IODINE, SHELLFISH, AND DEMEROL. Medications: List reviewed. Review of Systems: Respiratory: As mentioned above. All other systems reviewed and negative. Social History: Negative for smoking, alcohol use. Family History: Significant for asthma, hypertension, breast cancer. Past Surgical History: AICD placement in June 2014, tracheostomy placement many years ago. Past Medical History: End-stage renal disease, on hemodialysis; COPD; chronic systolic congestive he art failure with reduced ejection fraction; anemia due to chronic kidney disease; type 2 diabetes whi ch is diet control; obstructive sleep apnea; coronary artery disease; allergic rhinitis; osteoarthrit is at multiple sites; diverticulosis; cervical spondylosis with radiculopathy; gastroesophageal reflu x disease; aortic stenosis; and right foot osteomyelitis. Physical Examination: Vital Signs: Temperature 97.3, pulse 84, respiratory rate 19, blood pressure 134/70, oxygen saturati on 100%. Height 5 feet 11 inches, weight 268 pounds. General: Awake, alert, oriented, not in distress. HEENT: Head atraumatic, normocephalic. Conjunctivae nonerythematous. Sclerae white. Mouth, no thr ush or edema noted. Ears/Nose, no mass, lesion, discharge noted. Neck: Supple. No JVD, lymph nodes, bruit, thyromegaly noted. Presence of tracheostomy. Lungs: Bilateral scattered wheezing noted. Heart: Normal heart sounds, no murmur or gallop. Abdomen: Soft, bowel sounds normal. No guarding, rigidity, tenderness, mass, hepatosplenomegaly, dis tention, or bruit noted. Extremities: Trace leg edema, unchanged from before. Skin: No rash, ulcer, cellulitis. Lymphatics: No lymph node enlargement in neck, supraclavicular, infraclavicular region. Neuro: No focal neurological deficit. Chest: Unremarkable. External Genitalia: Deferred. Rectal: Deferred. Laboratory Data: White count 7.5, hemoglobin 9.6, platelets 122. Sodium 139, potassium 4.4, chlorid e 101, bicarb 29, BUN 30, creatinine 6.71, glucose 157. Liver function tests unremarkable. Troponin 0.79. Chest x-ray, changes of CHF pattern. Impression: 1.Acute exacerbation of chronic obstructive pulmonary disease. 2.End-stage renal disease, on hemodialysis. 3.Anemia due to chronic kidney disease. 4.Thrombocytopenia. 5.Chronic systolic congestive heart failure. 6.Coronary artery disease. 7.Osteoarthritis, multiple sites. 8.Type 2 diabetes mellitus. 9.Gastroesophageal reflux disease. 10.Diverticulosis. Plan: We will admit the patient to hospital for further evaluation and management of this problem. The patient is appropriate for inpatient and is expected to spend 2 midnights in hospital. Home medi cations will be continued per order. We will consult light bulb tester for dialysis support. Nebulizer t reatment, oxygen, IV steroid, and IV antibiotics will be given per order. Details were discussed wit h the patient regarding plan of treatment and I will see him tomorrow for followup. ODESSA/MODL Voice ID: [id number]
[2019-05-19 05:18] LABS: Absolute Lymphocytes (CBC) 0.2 K/uL (0.7-4.9); Basophils % 0.2 % (0-1.3); Hematocrit 30.2 % (39.6-49.0); Lymphocytes % 1.1 % (15.3-44.8); RBC Red Blood Cell Count 3.23 M/uL (4.33-5.43)
[2019-05-19] MEDS: NA CHLORIDE 0.9% 250 ML ONE (05:49)
[2019-05-19 05:54] LABS: Potassium 4.8 mmol/L (3.5-5.1)
[2019-05-19] MEDS ORDERED: PIPER/TAZO/NS 2.25gm 2.25 GM/50 ML BAG IVPB SCH (06:00)
[2019-05-19 06:12] LABS: Platelet Estimate DECR
[2019-05-19 06:13] LABS: Blood Morphology Comment NOT SEEN (NOT SEEN)
[2019-05-19] MEDS: INSULIN -REGULAR HUMAN 50 UNIT/0.5 ML ML SQ SCH ×4 (07:30→21:00)
--- NOTE | 2019-05-19 07:51 | RAD REPORT ---
EXAM DESCRIPTION: Zhanna Single View05/19/2019 5:41 am CLINICAL HISTORY: Chest pain COMPARISON: May 17, 2019 FINDINGS: The lungs appear clear of acute infiltrate. The heart is moderately enlarged. Pacemaker l rubio are in place. Tracheostomy tube noted IMPRESSION: Resolution of the pulmonary edema
[2019-05-19] MEDS: FERROUS SULFATE 325 MG TAB PO SCH (08:19)
[2019-05-19] MEDS: AMIODARONE HCL 200 MG TAB PO SCH (08:19)
[2019-05-19] MEDS: ZINC SULFATE 220 MG CAP PO SCH (08:19)
[2019-05-19] MEDS: VITAMIN D 1000 UNIT TAB PO SCH (08:20)
[2019-05-19] MEDS: allopurinoL 100 MG TAB PO SCH (08:21)
[2019-05-19] MEDS: CLOPIDOGREL 75 MG TABLET PO SCH (08:22)
[2019-05-19] MEDS: PANTOPRAZOLE 40MG TABLET PO SCH ×2 (08:22→21:16)
[2019-05-19] MEDS: GABAPENTIN 100 MG CAP PO SCH ×3 (08:22→21:16)
[2019-05-19] MEDS: ASPIRIN 81 MG CHEWABLE TABLET PO SCH (08:22)
[2019-05-19] MEDS: [UNRECOGNIZED DRUG - REMARK] IH SCH ×2 (08:23→21:00)
[2019-05-19] MEDS: COLLAGENASE 30 GM OINTMENT TOP SCH (08:24)
[2019-05-19] MEDS: VITAMIN A 8000 UNIT PO SCH (08:25)
[2019-05-19] MEDS: ARFORMOTEROL TARTRATE 15 MCG/2 ML VIAL.NEB NEB SCH ×2 (08:35→20:45)
[2019-05-19] MEDS: IPRATROPIUM BROM 0.5MG/2.5ML IH SCH ×4 (08:35→20:45)
--- NOTE | 2019-05-19 09:02 | P.CNS ---
Date of Consult: 05/19/19 Reason for Consult: Respiratory distress Chief Complaint: Shortness of breath History of Present Illness: Patient is 79 years of age recurrent hospital admissions for COPD diastolic dysfunction renal failure developed acute respiratory distress is compliant with his medication and dialysis and appeared in the hospital wheezing denies any fever chills cough sputum hemoptysis not coughing up any productive phlegm no evidence of active sepsis Allergies iodine [Iodine] Allergy (Intermediate, Verified 05/18/19 04:13) Itching ciprofloxacin Allergy (Verified 05/18/19 04:13) Hives/Rash meperidine [From Demerol] Allergy (Verified 05/18/19 04:13) unknown SHELLFISH Allergy (Uncoded 05/18/19 04:13) Itching Home Medications: Albuterol Sulfate [Albuterol Sulfate 0.083% Neb Soln] 2.5 mg NEB DAILY 10/21/18 Aspirin [Samantha Chewable Aspirin] 81 mg PO DAILY 10/21/18 Calcium Carbonate [Tums Regular*] 1,000 mg PO DAILY 10/21/18 Clopidogrel Bisulfate [Plavix*] 75 mg PO DAILY 10/21/18 Ferrous Sulfate [Ferrous Sulfate*] 65 mg PO DAILY 10/21/18 Fluticasone Propionate [24 Hour Allergy] 1 spr IH BID 10/21/18 Gabapentin [Neurontin*] 100 mg PO TID 10/21/18 Nitroglycerin [Nitrostat*] 0.4 mg SL DAILYPRN PRN 10/21/18 Omeprazole 20 mg PO BID 10/21/18 Vitamin A 8,000 unit PO DAILY 10/21/18 Zinc 50 mg PO DAILY 10/21/18 allopurinoL [Zyloprim*] 200 mg PO DAILY 10/21/18 Cholecalciferol (Vitamin D3) [Vitamin D 1000 Iu Tab*] 2,000 unit PO DAILY Ipratropium Neb [Atrovent*] 0.5 mg IH QID 11/29/18 Collagenase [Santyl Ointment*] 30 appl TOP DAILY #1 tube 04/01/19 Amiodarone HCl 100 mg PO DAILY 04/28/19 - Past Medical/Surgical History Diabetic: Yes -: Diabetes Mellitus -: COPD -: Hypertension -: PROSTATE CA -: ESRD -: DIALYSIS -: Diverticulitis -: dialysis: MWF -: anemia -: sleep apnea -: gout -: oa -: trach 06/2002 -: HD graft - L upper arm -: pacemaker - Family History Brother Medical History: Hypertension Mother Medical History: Heart disease, Hypertension Sister Medical History: Cancer Notes: breast cancer - Social History Smoking Status: Unknown if ever smoked Alcohol use: No CD- Drugs: No Caffeine use: Yes Place of Residence: Home Review of Systems General: Weakness Respiratory: Cough, Shortness of Breath Cardiovascular: Edema (Bilateral edema) Physical Examination Temp Pulse Resp BP Pulse Ox 97.8 F 87 21 H 122/73 98 05/19/19 08:00 05/19/19 08:00 05/19/19 08:00 05/19/19 08:00 05/19/19 08:00 General: Alert, Oriented x3, Mild distress Respiratory: Expiratory wheezes Cardiovascular: Regular rate/rhythm, Edema Gastrointestinal: Normal bowel sounds, Soft and benign - Problems (1) Respiratory distress Current Visit: Yes Status: Acute Plan: Patient is 79 years of age admitted with respiratory distress recurrent hospital admissions possible volume overload no evidence of sepsis Dc Zosyn change to p.o. prednisone awaiting dialysis continue with nebulizer vital signs in oxygenation satisfactory patient is on long-acting bronchodilators sputum cultures ordered
[2019-05-19] MEDS: predniSONE 20 MG TAB PO SCH ×2 (10:19→21:16)
--- NOTE | 2019-05-19 12:04 | EKG ---
Test Date: 2019-05-19 Test Time: 11:40:17 Non Food Receiving Clerk: BARBARA MEASUREMENT RESULTS: Intervals: Rate: 103 CO: 130 QRSD: 152 QT: 446 QTc: 584 [place]: P: 67 CO: 130 QRS: -85 T: 83 INTERPRETIVE STATEMENTS: Atrial-sensed ventricular-paced rhythm tracking sinus tachycardia Compared to ECG 05/18/2019 00:44:40 Sinus tachycardia is now present Electronically Signed On 05-19-19 12:04:03 TINWARE LITHOGRAPH PRESS OPERATOR by Thomas Middleton
--- NOTE | 2019-05-19 16:18 | PN ---
Date of Progress Note: 05/19/2019 Subjective: Patient was admitted with over volume, shortness of breath. Patient is still complainin g of some shortness of breath. Yesterday, we had dialysis. We managed to remove 3.1 L. Patient is scheduled for dialysis today. Objective: Vital Signs: Blood pressure 122/73, pulse of 87. CHEST: Crackles bilateral. Heart: S1, S2. Systolic murmur. Abdomen: Soft, nontender. Extremities: Trace edema. Dressing on the right foot. Laboratory Data: WBC 15.5, H and H 9.3/30.2. Sodium 134, potassium 4.8, bicarb 26, BUN 28, creatini ne 4.8, calcium 9.2. BNP 57,000. Current Medications: The patient is on include: 1.Midodrine. 2.Breathing treatment. 3.Plavix. 4.Epogen. 5.PhosLo. 6.Gabapentin. 7.Prednisone. 8.Allopurinol. Assessment And Plan: 1.End-stage renal disease, over volume. I am going to do sequential today. Patient will need anoth er session of dialysis tomorrow. We will arrange for it. We will continue to challenge the patient. Patient is going to be dialyzed on sodium module tomorrow. Today, we are doing just sequential. T ry to establish better volume control. 2.Respiratory failure secondary to combination of chronic obstructive pulmonary disease and congesti ve heart failure. Follow up with the primary. We will try to establish better volume control tomorr ow. 3.Anemia of chronic kidney disease. Continue JAIRO. 4.Secondary hyperparathyroid. Continue binder. I do not think, if patient still have shortness of breath after dialysis, patient may need another day in the hospital to establish better volume control. Case discussed with the patient . ROLANDO/PATRICK Voice ID: [id number] Report ID: [id number]
--- NOTE | 2019-05-19 23:18 | PN ---
Date of Progress Note: 05/19/2019 Subjective: Patient was seen this morning for followup. No new complaints or problems reported by emanuel pantoja. His shortness of breath was better this morning. Objective: Vital Signs: Reviewed. HEENT: Unremarkable. Lungs: Clear to auscultation. No wheezing. No crackles. Heart: Normal. Abdomen: Soft. Bowel sounds normal. No guarding, rigidity, tenderness, or distention. Extremities: No leg edema. Laboratory Data: White count 15.5, which is due to IV steroid use. Hemoglobin 9.3, platelets 123. Sodium 134, potassium 4.8, chloride 98, bicarb 26, BUN 28, creatinine 4.83, glucose 195. Impression: 1.Acute exacerbation of chronic obstructive pulmonary disease. 2.End-stage renal disease, on hemodialysis. 3.Angina. 4.Coronary artery disease. Plan: Our plan was to discharge him to go home today after dialysis. During dialysis patient develo ped chest pain. EKG was done. Cardiac enzymes done, which was negative and subsequently patient was pain-free, so we have decided to cancel his discharge order for today. We will keep him in the hosp ital on telemetry overnight. I will see him tomorrow for followup and depending on his condition we will decide about possible discharge tomorrow. ODESSA/MODL Voice ID: [id number] Report ID: [id number]
[2019-05-20] MEDS: INSULIN -REGULAR HUMAN 50 UNIT/0.5 ML ML SQ SCH ×4 (07:30→20:13)
[2019-05-20] MEDS: ARFORMOTEROL TARTRATE 15 MCG/2 ML VIAL.NEB NEB SCH ×2 (07:35→20:10)
[2019-05-20] MEDS: IPRATROPIUM BROM 0.5MG/2.5ML IH SCH ×4 (07:35→20:10)
[2019-05-20] MEDS: [UNRECOGNIZED DRUG - REMARK] IH SCH ×2 (09:00→19:59)
[2019-05-20] MEDS: VITAMIN A 8000 UNIT PO SCH (09:00)
[2019-05-20] MEDS: AMIODARONE HCL 200 MG TAB PO SCH (09:28)
[2019-05-20] MEDS: ZINC SULFATE 220 MG CAP PO SCH (09:28)
[2019-05-20] MEDS: PANTOPRAZOLE 40MG TABLET PO SCH ×2 (09:28→19:59)
[2019-05-20] MEDS: CALCIUM CARBONATE CHEW 500MG TAB PO SCH (09:28)
[2019-05-20] MEDS: allopurinoL 100 MG TAB PO SCH (09:28)
[2019-05-20] MEDS: VITAMIN D 1000 UNIT TAB PO SCH (09:28)
[2019-05-20] MEDS: FERROUS SULFATE 325 MG TAB PO SCH (09:28)
[2019-05-20] MEDS: predniSONE 20 MG TAB PO SCH ×2 (09:29→19:59)
[2019-05-20] MEDS: ASPIRIN 81 MG CHEWABLE TABLET PO SCH (09:29)
[2019-05-20] MEDS: GABAPENTIN 100 MG CAP PO SCH ×3 (09:29→19:59)
[2019-05-20] MEDS: CLOPIDOGREL 75 MG TABLET PO SCH (09:29)
[2019-05-20] MEDS: COLLAGENASE 30 GM OINTMENT TOP SCH (09:30)
--- NOTE | 2019-05-20 13:41 | P.PN ---
Subjective Date of Service: 05/20/19 Chief Complaint: Shortness of breath Subjective: Improving Subjective pt with ESRD , admitted for chest pain and SOB today pain resolved stable VS dialysis today can be discharged today after HD from nephrology point of view Physical exam general: AAOX3, NAD , obese Neck; Supple, No elevated JVD , Tacheostomy hear: RRR, normal S1,2 no murmur or rub Chest: decreased air entry B/l , no rales or wheezes Abdomen: Soft , Nt Extremities trace edema A/P End-stage renal disease, will cont HD MWF renal dose meds chest pain resolved Toponin negative Anemia of chronic disease Cont Epogen MBD Cont binders HTN BP borderline Cont midodrine on HD days COPD cont inhalers Physical Examination - Vital Signs Temperature: 97.3 F Blood Pressure: 131/63 Pulse: 84 Respirations: 18 Pulse Ox (%): 99
[2019-05-20 21:01] VITALS: BP 114/54; TEMP 97.6
[2019-05-20 21:06] VITALS: O2SAT 97
--- NOTE | 2019-05-21 08:32 | DS ---
Date of Discharge: 05/20/2019 Disposition: The patient will be discharged to go home after dialysis today. Physical Examination: Vital Signs: Reviewed. HEENT: Unremarkable. Lungs: Clear to auscultation. Heart: Sounds normal. Abdomen: Soft. Bowel sounds normal. No guarding, rigidity, tenderness, or distention. Extremities: No leg edema. Laboratory Data: Yesterday's sodium 134, potassium 4.8, chloride 98, bicarb 26, BUN 28, creatinine 4 .83, glucose 195. Yesterday's white count 15.5, hemoglobin 9.3, platelets 123, and this elevated whi te count was as a result of IV steroid treatment. Discharge Medications And Instructions: 1.Continue all prior home medication except change prednisone 10 mg; the patient will take 3 tablets by mouth daily for 4 days, then 2 tablets by mouth daily for 4 days, then 1 tablet by mouth daily to continue. 2.Follow up at my office per scheduled appointment. Discharge Diagnoses: 1.Acute exacerbation of chronic obstructive pulmonary disease. 2.End-stage renal disease, on hemodialysis. 3.Congestive heart failure, chronic, systolic. 4.Anemia due to chronic kidney disease. 5.Thrombocytopenia. 6.Coronary artery disease with angina. 7.Osteoarthritis, multiple sites. 8.Type 2 diabetes mellitus. 9.Diverticulosis. 10.Gastroesophageal reflux disease. Hospital Course: An 79-year-old male patient admitted to the hospital after he presented to emergenc y room with shortness of breath problem. Please see dictated H and P for more information. After he was admitted to the hospital, Nephrology and Pulmonary consultations were obtained. The patient imp roved with oxygen nebulizer treatment, IV steroid, and he received dialysis support yesterday and day before yesterday. Our plan was to discharge him to go home yesterday after dialysis and during his dialysis, he was noted to have an episode of chest pain. EKG did not show any acute changes. Cardia c enzymes were negative and chest pain resolved on its own without any use of nitroglycerin tablet. Patient has chest pain off and on at home. It has not changed in terms of any severity or character or duration, and pain has remained stable over a long period of time and he gets that on occasion and there is nothing different about his pain that happened yesterday compared to before. So, with that episode, we did not discharge him yesterday. Overall, his condition has remained stable. He normal ly goes for dialysis on Thursday, Thursday, and Thursday; and amalgamator has scheduled dialysis to be done today and after that, we will plan to discharge him to go home. ODESSA/MODL Voice ID: [id number] Report ID: [id number]
== END 2019-05-20 20:50 | disposition home or self-care (01) | DRG 190 ==
LOC: ER 23:28 → INTOOBSV 05-18 03:16 → 2ND 05-18 03:16 → OBSVTOIN 05-18 03:16
PROVIDERS: ADMIT Internal Medicine; ATTEND Internal Medicine
PROC: 5A1D70Z Performance of Urinary Filtration, Intermittent, Less than 6 Hours Per Day (ICD-10-PCS; principal; 2019-05-18)
PROC: 5A1D70Z Performance of Urinary Filtration, Intermittent, Less than 6 Hours Per Day (ICD-10-PCS; 2019-05-18)
PROC: 5A1D70Z Performance of Urinary Filtration, Intermittent, Less than 6 Hours Per Day (ICD-10-PCS; 2019-05-18)
DX: J44.1 Chronic obstructive pulmonary disease with (acute) exacerbation (principal); N18.6 End stage renal disease; I13.2 Hypertensive heart and chronic kidney disease with heart failure and with stage 5 chronic kidney disease, or end stage renal disease; I50.22 Chronic systolic (congestive) heart failure; D63.1 Anemia in chronic kidney disease; D69.6 Thrombocytopenia, unspecified; I25.119 Atherosclerotic heart disease of native coronary artery with unspecified angina pectoris; M19.90 Unspecified osteoarthritis, unspecified site; E11.22 Type 2 diabetes mellitus with diabetic chronic kidney disease; Z99.2 Dependence on renal dialysis; K57.90 Diverticulosis of intestine, part unspecified, without perforation or abscess without bleeding; K21.9 Gastro-esophageal reflux disease without esophagitis; R06.03 Acute respiratory distress; Z91.013 Allergy to seafood; Z95.810 Presence of automatic (implantable) cardiac defibrillator; Z93.0 Tracheostomy status
CPT/HCPCS: 36415; 71045; 72170; 80048; 80076; 82947; 83735; 83880; 84145; 84484; 85025; 85610; 87040; 87804; 90935; 93005; 94640; 94760; 96365; 96375; 99213; 99284; 99285; J1644; J2543; J2920; J2930; J3590; J7030; J7512; J7605

== ENCOUNTER 2019-05-23 05:04 | Inpatient (IN) | payer OTHER, MEDICARE ==
--- OUTSIDE RECORDS SUMMARY | 2019-05-23 05:05 | XMS REPORT ---
:1940 [facility] Address [address] [place] [address] Dr. Vargas [address] [place] [id number] Care Team Providers Name Role Phone Unavailable Unavailable Unavailable Problems This patient has no known problems. Allergies, Adverse Reactions, Alerts This patient has no known allergies or adverse reactions. Medications This patient has no known medications.
--- OUTSIDE RECORDS SUMMARY | 2019-05-23 05:06 | XMS REPORT ---
[...] End Status Dosage System Date Date Aspirin [facility] [address]-05 Active not defined Nitroglycerin [facility] [address]-90 Active not defined Allopurinol [facility] 48621870541 Active not defined Vitamin A NDC 0 Active not defined Albuterol Sulfate [facility] [address]-90 Active not defined Renvela [facility] [address]-73 Active not defined Midodrine HCl [facility] [id number] 10 MG Oral Active not defined Fluticasone [facility] [address]-04 Active not Propionate defined Ferrous Sulfate [facility] 88689-63683 Active not defined Omeprazole [facility] [id number] Active not defined Gabapentin [facility] [address]-20 Active not defined clopidogrel NDC 0 Active not defined Ipratropium [facility] [address]-27 Active not [place] defined Prednisone [place] 0 Active not defined Results No Known Results Summary Purpose eClinicalWorks Submission
[2019-05-23] MEDS ORDERED: ALBUTEROL 2.5 MG/3 ML NEB SOL ONE (05:15)
[2019-05-23] MEDS ORDERED: IPRATROPIUM BROM 0.5MG/2.5ML ONE ×2 (05:16→06:23)
[2019-05-23] MEDS ORDERED: METHYLPREDNISOLONE 125 MG INJ ONE ×2 (05:36→09:08)
--- NOTE | 2019-05-23 06:14 | EKG ---
Test Date: 2019-05-23 Test Time: 05:27:40 Emg Technician: SONIA MEASUREMENT RESULTS: Intervals: Rate: 100 UT: 148 QRSD: 150 QT: 436 QTc: 562 [place]: P: 50 UT: 148 QRS: -59 T: 99 INTERPRETIVE STATEMENTS: Atrial-sensed ventricular-paced rhythm Abnormal ECG Compared to ECG 05/19/2019 11:40:17 Sinus tachycardia no longer present Electronically Signed On 05-23-19 06:13:43 SISAL PICKER by Thomas Middleton
[2019-05-23 08:02] LABS: Protime INR 1.04
[2019-05-23 08:04] LABS: Absolute Lymphocytes (CBC) 0.4 K/uL (0.7-4.9); Basophils % 0.2 % (0-1.3); Hematocrit 30.5 % (39.6-49.0); Lymphocytes % 2.1 % (15.3-44.8); MPV 10.7 fL (7.6-11.3); RBC Red Blood Cell Count 3.28 M/uL (4.33-5.43)
[2019-05-23 08:21] LABS: Albumin 3.3 g/dL (3.4-5.0); Bilirubin Direct 0.1 mg/dL (0-0.2); Bilirubin Total 0.4 mg/dL (0.2-1.0); CKMB Creatine Kinase MB 2.5 ng/mL (0.3-3.6); Magnesium 2.2 mg/dL (1.8-2.4); Potassium 5.4 mmol/L (3.5-5.1); Protein, Total 6.8 g/dL (6.4-8.2); Troponin (Emerg Dept Use Only) 0.1 ng/mL (0.0-0.045)
--- NOTE | 2019-05-23 08:23 | RAD REPORT ---
EXAM DESCRIPTION: Zhanna Single View05/23/2019 6:20 am CLINICAL HISTORY: Chest pain COMPARISON: May 19, 2019 FINDINGS: The lungs appear clear of acute infiltrate. The heart is moderately enlarged. Pacemaker l rubio are in place. Upper lobe vessels are prominent indicative of pulmonary venous hypertension Tracheostomy tube in place
--- NOTE | 2019-05-23 09:07 | ER ---
Nurse's Notes [facility] Name: Sergio Perez Age: 79 yrs Sex: Male : 1940 Arrival Date: 05/23/2019 Time: 05:10 Bed 2 Private MD: Diagnosis: Dyspnea;End stage renal disease;Cardiomegaly;Unspecified combined systolic (congestive) and diastolic (congestive) heart failure;Chronic obstructive pulmonary disease with (acute) exacerbation;Hyperkalemia;Type 2 diabetes mellitus Presentation: 05/23 05:11 Presenting complaint: EMS states: they were toned out for report of pt having bb difficulty breathing all day pt reported that he had administered multiple breathing txs to himself but is still having trouble. Pt's last tx was at 0230 at home pt had dialysis last on Thursday. Transition of care: patient was not received from another setting of care. Onset of symptoms was May 22, 2019. Risk Assessment: Do you want to hurt yourself or someone else? Patient reports no desire to harm self or others. Initial Sepsis Screen: Does the patient meet any 2 criteria? No. Patient's initial sepsis screen is negative. Does the patient have a suspected source of infection? No. Patient's initial sepsis screen is negative. Care prior to arrival: None. 05:11 Method Of Arrival: EMS: [facility] bb 05:11 Acuity: KARLENE 3 bb Triage Assessment: 06:17 Respiratory: Onset: The symptoms/episode began/occurred today, the patient has mild jd3 shortness of breath. Historical: - Allergies: 05:15 Demerol; bb 05:15 Iodine; bb 05:15 Meperidine; bb 05:15 SHELLFISH; bb - Home Meds: 05:15 albuterol sulfate 2.5 mg /3 mL (0.083 %) Inhl nebu 1 vial daily [Active]; allopurinol bb 200 mg Oral 2 tabs daily [Active]; amiodarone 200 mg Oral tab 0.5 tab daily [Active]; aspirin 81 mg Oral chew 1 tab twice daily [Active]; clopidogrel 75 mg Oral tab 1 tab once daily [Active]; Ferrous Sulfate 65 mg Oral 1x daily [Active]; fluticasone 50 mcg/actuation nasal spsn 1 spray 2 times per day [Active]; gabapentin Oral 1 tab 3 times per day [Active]; indura 800 mg 2 tabs before each meal TID [Active]; ipratropium bromide 0.02 % inhalation soln 2.5 mL 4 times per day [Active]; nitroglycerin 0.4 mg Oral as needed [Active]; omeprazole 20 mg Oral chew twice a day [Active]; Tums Oral 2 tabs per meal [Active]; vitamin A 8,000 unit Oral cap 1 cap once daily [Active]; vitamin d1 tablet 2000 IU daily [Active]; zinc sulfate 220 (50) mg Oral cap daily [Active]; - PMHx: 05:15 CHF; COPD; Diabetes - NIDDM; Dialysis; M-W-F; ESRD; GERD; Gout; Hypertension; bb Pacemaker; with defib; - PSHx: 05:15 L arm fistula; defib and pacemaker; cardiac cath; bb - Immunization history:: Adult Immunizations up to date. - Coronavirus screen:: The patient has NOT traveled to [place], [place], or [place] in the past 14 days. Proceed with normal triage process as indicated. - Social history:: Smoking status: unknown. - Ebola Screening: : No symptoms or risks identified at this time. Screenin:17 Abuse screen: Denies injuries from another. Nutritional screening: No deficits noted. jd3 Tuberculosis screening: No symptoms or risk factors identified. Fall Risk Ambulatory Aid- None/Bed Rest/Nurse Assist (0 pts). Gait- Normal/Bed Rest/Wheelchair (0 pts) Mental Status- Oriented to own ability (0 pts). Total Dodson Fall Scale indicates No Risk (0-24 pts). Assessment: 05:21 General: Appears in no apparent distress. uncomfortable, Behavior is calm, cooperative, jd3 appropriate for age. Pain: Denies pain. Neuro: Level of Consciousness is awake, alert, obeys commands, Oriented to person, place, time, situation. Cardiovascular: Denies chest pain, Heart tones S1 S2 present Capillary refill Patient's skin is warm and dry. Rhythm is regular. Respiratory: Reports shortness of breath at rest Airway is patent via trache Respiratory effort is even, labored, Respiratory pattern is regular, symmetrical, Breath sounds with wheezes bilaterally. GI: No signs and/or symptoms were reported involving the gastrointestinal system. : No signs and/or symptoms were reported regarding the genitourinary system. EENT: No signs and/or symptoms were reported regarding the EENT system. Derm: Skin is intact, Skin is dry, Skin is normal, Skin temperature is warm. Musculoskeletal: Circulation, motion, and sensation intact. Range of motion: intact in all extremities. 06:35 Reassessment: Patient appears in no apparent distress at this time. No changes from jd3 previously documented assessment. Patient and/or family updated on plan of care and expected duration. Pain level reassessed. phlebotomy at bedside attempting to get a blood draw. phlebotomy unsuccessful after 2 attempts. charge nurse and provider notified. no new orders at this time. 07:10 Reassessment: Patient appears in no apparent distress at this time. Patient and/or em family updated on plan of care and expected duration. Pain level reassessed. Patient is alert, oriented x 3, equal unlabored respirations, skin warm/dry/pink. Patient denies pain at this time. 08:00 Reassessment: Patient appears in no apparent distress at this time. No changes from jl7 previously documented assessment. Patient and/or family updated on plan of care and expected duration. Pain level reassessed. Patient is alert, oriented x 3, equal unlabored respirations, skin warm/dry/pink. 09:00 Reassessment: Pt laying in bed with eyes closed, respirations even and unlabored, no jl7 signs of distress noted at this time. 10:00 Reassessment: Patient appears in no apparent distress at this time. No changes from jl7 previously documented assessment. Patient and/or family updated on plan of care and expected duration. Pain level reassessed. Patient is alert, oriented x 3, equal unlabored respirations, skin warm/dry/pink. 10:45 Reassessment: FSBS 244. jl7 Vital Signs: 05:15 BP 118 / 75; Pulse 113; Resp 20 S; Temp 98.6(O); Pulse Ox 99% on 2.5 lpm NC; Weight bb 120.2 kg (R); Height 5 ft. 11 in. (180.34 cm) (R); Pain 0/10; 06:07 BP 110 / 58; Pulse 102; Resp 18; Pulse Ox 95% ; aa1 08:05 BP 123 / 72; Pulse 102; Resp 19; Pulse Ox 99% on 2 lpm NC; Pain 0/10; em 09:00 BP 122 / 74; Pulse 94; Resp 20 S; Pulse Ox 99% on R/A; jl7 09:30 BP 118 / 65; Pulse 84; Resp 22 S; Pulse Ox 98% on R/A; jl7 10:00 BP 125 / 75; Pulse 89; Resp 19 S; Pulse Ox 98% on R/A; jl7 05:15 Body Mass Index 36.96 (120.20 kg, 180.34 cm) ED Course: 05:10 Patient arrived in ED. ds1 05:11 Raghavendra Cantrell MD is Attending Physician. tw4 05:13 Triage completed. bb 05:15 Arm band placed on Patient placed in an exam room, on a stretcher, on oxygen, on bb surveillance system monitor, on pulse oximetry. 05:21 Alfred Torres, SHAI is Primary Nurse. jd3 06:00 Missed attempt(s): 18 gauge in right upper arm. Bleeding controlled, band aid applied, bb catheter tip intact. 06:04 Missed attempt(s): 22 gauge in right hand. Bleeding controlled, band aid applied, aa1 catheter tip intact. 06:15 Missed attempt(s): 22 gauge in right forearm. Bleeding controlled, band aid applied, jd3 catheter tip intact. 06:17 Patient has correct armband on for positive identification. Placed in gown. Bed in low jd3 position. Call light in reach. Side rails up X 1. 06:20 Missed attempt(s): 22 gauge in right forearm. attempt by [employer]. Bleeding jd3 controlled, band aid applied, catheter tip intact. 07:00 monitoring coordinator on. Pulse ox on. NIBP on. jl7 07:00 Warm blanket given. jl7 07:10 Attending Physician role handed off by Raghavendra Cantrell MD tono 07:10 Mickey Bro MD is Attending Physician. tono 07:30 Initial lab(s) drawn, by nd, sent to lab. Inserted saline lock: 22 gauge in right upper em arm, using aseptic technique. Blood collected. 09:03 Anmol Salazar MD is Hospitalizing Provider. tono 10:54 No provider procedures requiring assistance completed. Patient admitted, IV remains in jl7 place. intact, No redness/swelling at site. Administered Medications: 05:23 Drug: AtroVENT Aerosol 0.5 mg Route: Inhalation; jd3 06:05 Not Given (Other Intervention Used): SOLU-Medrol 125 mg IVP once jd3 06:20 Drug: AtroVENT Aerosol 0.5 mg Route: Inhalation; jd3 06:41 Drug: SOLU-Medrol 125 mg Route: IM; Site: right gluteus; jd3 09:18 Drug: Xopenex 1.25 mg Route: Inhalation; em 09:20 Drug: SOLU-Medrol 62.5 mg Route: IVP; Site: right upper arm; em 10:47 Follow up: Response: No adverse reaction jl7 09:22 Drug: Insulin Regular Human 7 units {Co-Signature: sg (Cliff Leigh RN).} Route: IVP; em Site: right upper arm; 10:51 Follow up: Response: Blood sugar is lowered jl7 09:24 Drug: Zosyn 3.375 grams Route: IVPB; Infused Over: 60 mins; Site: right upper arm; em 10:30 Follow up: Response: No adverse reaction; IV Status: Completed infusion jl7 10:47 Drug: Kayexalate 30 grams Route: PO; jl7 10:48 Follow up: Response: No adverse reaction jl7 Outcome: 09:05 Decision to Hospitalize by Provider. tono 10:54 Admitted to Tele accompanied by tech, via wheelchair, room 431, with oxygen, with 7 chart, Report called to SHAI Fan 10:54 Condition: stable 10:54 Discharge instructions given to patient, Instructed on the need for admit, Demonstrated understanding of instructions. 10:54 Patient left the ED. jl7 Signatures: Jaclyn Grant RN RN aa1 Mickey Bro MD MD cha Munoz, Edgar RN SHAI Zaida Pulliam ds1 Bri Keane RN RN bb Leal, Jahala, RN RN jl7 Alfred Torres RN RN jd3 Wadley, Terrence, MD MD tw4 Cliff Leigh RN sg
[2019-05-23] MEDS ORDERED: PIPER/TAZO/NS 3.375gm 3.375 GM/100 ML BAG ONE (09:08)
[2019-05-23] MEDS ORDERED: LEVALBUTEROL 1.25 MG/3 ML NEB ONE (09:08)
[2019-05-23] MEDS ORDERED: SOD POLYSTYREN SUL 15 GM/60 ML UCUP ONE (09:08)
--- NOTE | 2019-05-23 09:08 | EDPHYS ---
Physician Documentation [facility] Name: Sergio Perez Age: 79 yrs Sex: Male : 1940 Arrival Date: 05/23/2019 Time: 05:10 Bed 2 Private MD: ROMA Physician Mickey Bro HPI: 05/23 06:27 This 79 yrs old Black Male presents to ER via EMS with complaints of Breathing tw4 Difficulty. 06:27 The patient has shortness of breath at rest. Onset: The symptoms/episode began/occurred tw4 today. Duration: The symptoms are continuous, and are steadily getting worse. The patient's shortness of breath is aggravated by exertion, is alleviated by nothing. Associated signs and symptoms: Pertinent positives: non-productive cough. Severity of symptoms: At their worst the symptoms were moderate in the emergency department the symptoms are unchanged. The patient has experienced similar episodes in the past, chronically. The patient has been recently seen by a physician: The patient has been recently been admitted at [facility], was discharged last week. Historical: - Allergies: 05:15 Demerol; bb 05:15 Iodine; bb 05:15 Meperidine; bb 05:15 SHELLFISH; bb - Home Meds: 05:15 albuterol sulfate 2.5 mg /3 mL (0.083 %) Inhl nebu 1 vial daily [Active]; allopurinol bb 200 mg Oral 2 tabs daily [Active]; amiodarone 200 mg Oral tab 0.5 tab daily [Active]; aspirin 81 mg Oral chew 1 tab twice daily [Active]; clopidogrel 75 mg Oral tab 1 tab once daily [Active]; Ferrous Sulfate 65 mg Oral 1x daily [Active]; fluticasone 50 mcg/actuation nasal spsn 1 spray 2 times per day [Active]; gabapentin Oral 1 tab 3 times per day [Active]; indura 800 mg 2 tabs before each meal TID [Active]; ipratropium bromide 0.02 % inhalation soln 2.5 mL 4 times per day [Active]; nitroglycerin 0.4 mg Oral as needed [Active]; omeprazole 20 mg Oral chew twice a day [Active]; Tums Oral 2 tabs per meal [Active]; vitamin A 8,000 unit Oral cap 1 cap once daily [Active]; vitamin d1 tablet 2000 IU daily [Active]; zinc sulfate 220 (50) mg Oral cap daily [Active]; - PMHx: 05:15 CHF; COPD; Diabetes - NIDDM; Dialysis; M-W-F; ESRD; GERD; Gout; Hypertension; bb Pacemaker; with defib; - PSHx: 05:15 L arm fistula; defib and pacemaker; cardiac cath; bb - Immunization history:: Adult Immunizations up to date. - Coronavirus screen:: The patient has NOT traveled to [place], [place], or [place] in the past 14 days. Proceed with normal triage process as indicated. - Social history:: Smoking status: unknown. - Ebola Screening: : No symptoms or risks identified at this time. ROS: 06:27 Constitutional: Negative for fever, chills, and weight loss, Eyes: Negative for injury, tw4 pain, redness, and discharge, ENT: Negative for injury, pain, and discharge, Cardiovascular: Negative for chest pain, palpitations, and edema, Abdomen/GI: Negative for abdominal pain, nausea, vomiting, diarrhea, and constipation, Back: Negative for injury and pain, MS/Extremity: Negative for injury and deformity, Skin: Negative for injury, rash, and discoloration. 06:27 Respiratory: Positive for cough, hemoptysis, shortness of breath, on exertion. Negative for hemoptysis, orthopnea, sputum production. Exam: 06:27 Constitutional: This is a well developed, well nourished patient who is awake, alert, tw4 and in no acute distress. Head/Face: Normocephalic, atraumatic. Chest/axilla: Normal chest wall appearance and motion. Nontender with no deformity. No lesions are appreciated. Cardiovascular: Regular rate and rhythm with a normal S1 and S2. No gallops, murmurs, or rubs. Normal PMI, no JVD. No pulse deficits. Abdomen/GI: Soft, non-tender, with normal bowel sounds. No distension or tympany. No guarding or rebound. No evidence of tenderness throughout. 06:27 Neck: Trachea: TRACHEOSTOMY IN PLACE. 06:27 Respiratory: moderate respiratory distress is noted, Respirations: labored breathing, Breath sounds: wheezing: expiratory that is moderate, is scattered. Vital Signs: 05:15 BP 118 / 75; Pulse 113; Resp 20 S; Temp 98.6(O); Pulse Ox 99% on 2.5 lpm NC; Weight bb 120.2 kg (R); Height 5 ft. 11 in. (180.34 cm) (R); Pain 0/10; 06:07 BP 110 / 58; Pulse 102; Resp 18; Pulse Ox 95% ; aa1 08:05 BP 123 / 72; Pulse 102; Resp 19; Pulse Ox 99% on 2 lpm NC; Pain 0/10; em 09:00 BP 122 / 74; Pulse 94; Resp 20 S; Pulse Ox 99% on R/A; jl7 09:30 BP 118 / 65; Pulse 84; Resp 22 S; Pulse Ox 98% on R/A; jl7 10:00 BP 125 / 75; Pulse 89; Resp 19 S; Pulse Ox 98% on R/A; jl7 05:15 Body Mass Index 36.96 (120.20 kg, 180.34 cm) bb MDM: 05:11 Patient medically screened. tw4 08:54 Data reviewed: vital signs, nurses notes, lab test result(s), EKG, radiologic studies, tono plain films. 05/23 05:17 Order name: Blood Culture Adult (2) 05/23 05:17 Order name: BMP 05/23 05:17 Order name: CBC with Diff 05/23 05:17 Order name: Ckmb 05/23 05:17 Order name: CPK 05/23 05:17 Order name: Hepatic Function 05/23 05:17 Order name: Lipase 05/23 05:17 Order name: Magnesium 05/23 05:17 Order name: NT PRO-BNP 05/23 05:17 Order name: PT-INR 05/23 05:17 Order name: Ptt, Activated 05/23 05:17 Order name: Troponin (emerg Dept Use Only) 05/23 08:04 Order name: Protime (+INR); Complete Time: 08:52 EDMS 05/23 08:04 Order name: PTT, Activated Partial Thromb; Complete Time: 08:52 EDMS 05/23 05:17 Order name: XRAY CXR (1 view) 05/23 08:05 Order name: CBC with Automated Diff EDMS 05/23 08:24 Order name: RAD; Complete Time: 08:52 EDMS 05/23 08:32 Order name: Basic Metabolic Panel; Complete Time: 08:52 EDMS 05/23 08:32 Order name: Liver (Hepatic) Function; Complete Time: 08:52 EDMS 05/23 08:32 Order name: Creatine Phosphokinase; Complete Time: 08:52 EDMS 05/23 08:32 Order name: CKMB Creatine Kinase MB; Complete Time: 08:52 EDMS 05/23 08:32 Order name: Troponin (Emerg Dept Use Only); Complete Time: 08:52 EDMS 05/23 08:32 Order name: NT PRO-BNP; Complete Time: 08:52 EDMS 05/23 08:32 Order name: Magnesium; Complete Time: 08:52 EDMS 05/23 08:32 Order name: Lipase; Complete Time: 08:52 EDMS 05/23 09:25 Order name: CBC Smear Scan EDMS 05/23 05:17 Order name: EKG; Complete Time: 05:29 tw4 05/23 05:17 Order name: Cardiac monitoring; Complete Time: 05:25 tw4 05/23 05:17 Order name: EKG - Nurse/Tech; Complete Time: 05:25 tw4 05/23 05:17 Order name: O2 Per Protocol; Complete Time: 05:22 tw4 05/23 05:17 Order name: O2 Sat Monitoring; Complete Time: 05:22 tw4 EC:41 Rate is 100 beats/min. Rhythm is regular. QRS [place] is Normal. PA interval is normal. tw4 QRS interval is normal. QT interval is normal. No Q waves. T waves are Peaked in leads aVF, V3, V4, V5, V6. Clinical impression: NSR w/ Non-specific ST/T Changes. Interpreted by me. Reviewed by me. Administered Medications: 05:23 Drug: AtroVENT Aerosol 0.5 mg Route: Inhalation; jd3 06:05 Not Given (Other Intervention Used): SOLU-Medrol 125 mg IVP once jd3 06:20 Drug: AtroVENT Aerosol 0.5 mg Route: Inhalation; jd3 06:41 Drug: SOLU-Medrol 125 mg Route: IM; Site: right gluteus; jd3 09:18 Drug: Xopenex 1.25 mg Route: Inhalation; em 09:20 Drug: SOLU-Medrol 62.5 mg Route: IVP; Site: right upper arm; em 10:47 Follow up: Response: No adverse reaction 7 09:22 Drug: Insulin Regular Human 7 units {Co-Signature: sg (Cliff Leigh RN).} Route: IVP; em Site: right upper arm; 10:51 Follow up: Response: Blood sugar is lowered 7 09:24 Drug: Zosyn 3.375 grams Route: IVPB; Infused Over: 60 mins; Site: right upper arm; em 10:30 Follow up: Response: No adverse reaction; IV Status: Completed infusion jl7 10:47 Drug: Kayexalate 30 grams Route: PO; jl7 10:48 Follow up: Response: No adverse reaction jl7 Disposition: 05/23/19 09:05 Hospitalization ordered by Anmol Salazar for Inpatient Admission. Preliminary diagnosis are Dyspnea, End stage renal disease, Cardiomegaly, Unspecified combined systolic (congestive) and diastolic (congestive) heart failure, Chronic obstructive pulmonary disease with (acute) exacerbation, Hyperkalemia, Type 2 diabetes mellitus. - Bed requested for Telemetry/MedSurg (Inpatient). - Status is Inpatient Admission. jl7 - Condition is Fair. - Problem is new. - Symptoms have improved. Signatures: Dispatcher [employer] EDMS Marie Hammonds Corey, MD MD cha Munoz, Edgar, RN SHAI em Bri Keane RN RN bb Leal, Jahala, RN RN jl7 Alfred Torres RN RN jd3 Wadley, Terrence, MD MD tw4 Cliff rome Corrections: (The following items were deleted from the chart) 10:15 09:05 Hospitalization Ordered by Anmol Salazar MD for Inpatient Admission. Preliminary bd diagnosis is Dyspnea; End stage renal disease; Cardiomegaly; Unspecified combined systolic (congestive) and diastolic (congestive) heart failure; Chronic obstructive pulmonary disease with (acute) exacerbation; Hyperkalemia; Type 2 diabetes mellitus. Bed requested for Telemetry/MedSurg (Inpatient). Status is Inpatient Admission. Condition is Fair. Problem is new. Symptoms have improved. [facility] 10:54 10:15 05/23/2019 09:05 Hospitalization Ordered by Anmol Salazar MD for Inpatient jl7 Admission. Preliminary diagnosis is Dyspnea; End stage renal disease; Cardiomegaly; Unspecified combined systolic (congestive) and diastolic (congestive) heart failure; Chronic obstructive pulmonary disease with (acute) exacerbation; Hyperkalemia; Type 2 diabetes mellitus. Bed requested for Telemetry/MedSurg (Inpatient). Status is Inpatient Admission. Condition is Fair. Problem is new. Symptoms have improved. bd
[2019-05-23] MEDS ORDERED: INSULIN -REGULAR HUMAN 50 UNIT/0.5 ML ML ONE (09:17)
[2019-05-23 09:23] LABS: Urine White Blood Cell Casts OK
[2019-05-23 09:24] LABS: Blood Morphology Comment NOTED (NOT SEEN); Platelet Estimate DECR
[2019-05-23 09:25] LABS: Anisocytosis 1+
[2019-05-23] MEDS ORDERED: ALBUTEROL 2.5 MG/3 ML NEB SOL NEB PRN (09:41)
[2019-05-23] MEDS ORDERED: ACETAMINOPHEN 325 MG TABLET PO PRN (09:41)
[2019-05-23] MEDS ORDERED: IPRATROPIUM BROM 0.5MG/2.5ML NEB PRN (09:41)
[2019-05-23] MEDS ORDERED: MIDODRINE HCL 5 MG TABLET PO ONE (12:00)
[2019-05-23] MEDS: METHYLPREDNISOLONE 40 MG INJ IV SCH (16:18)
[2019-05-23] MEDS: FUROSEMIDE 20 MG/ 2ML VIAL IV SCH (16:19)
[2019-05-23] MEDS ORDERED: D50W 25 GM/50 ML SYRINGE/VIAL IV PRN (16:55)
[2019-05-23] MEDS ORDERED: GLUCAGON 1 MG/VIAL IM PRN (16:55)
[2019-05-23] MEDS: PIPER/TAZO/NS 2.25gm 2.25 GM/50 ML BAG IVPB SCH (17:00)
[2019-05-23] MEDS: INSULIN -REGULAR HUMAN 50 UNIT/0.5 ML ML SQ SCH ×2 (17:10→21:56)
[2019-05-23] MEDS: ACETYLCYST 20% 4 ML VIAL IH SCH (21:40)
[2019-05-23] MEDS: IPRATROPIUM BROM 0.5MG/2.5ML NEB SCH (22:00)
[2019-05-23] MEDS: ALBUTEROL 2.5 MG/3 ML NEB SOL NEB SCH (22:00)
[2019-05-24] MEDS: METHYLPREDNISOLONE 40 MG INJ IV SCH (00:18)
[2019-05-24] MEDS: PIPER/TAZO/NS 2.25gm 2.25 GM/50 ML BAG IVPB SCH ×3 (00:18→18:02)
[2019-05-24] MEDS: IPRATROPIUM BROM 0.5MG/2.5ML NEB SCH ×7 (01:50→23:05)
[2019-05-24] MEDS: ALBUTEROL 2.5 MG/3 ML NEB SOL NEB SCH ×7 (01:50→23:05)
--- NOTE | 2019-05-24 02:53 | CON ---
Date of Consultation: 05/23/2019 Chief Complaint: End-stage renal disease, on dialysis. History Of Present Illness: Patient has history of multiple medical problems including congestive he art failure with diastolic dysfunction, diabetes mellitus. He came to the hospital because of progre ssively worse shortness of breath. Patient has a trach. He has systolic and diastolic congestive he art failure and obstructive pulmonary disease with acute exacerbation. Patient was found to have hyp erkalemia, dialysis with urgent procedure was scheduled to treat hyperkalemia, provide metabolic palmira pascual and advanced ultrafiltration to obtain negative fluid balance. Review of Systems: Constitutional: Denies fever, chills. Eyes: Denies vision changes. Ears, Nose, Mouth and Throat: Denies sore throat or earache. Respiratory: Has shortness of breath and wheezing. GI: Denies nausea, vomiting. : Denies dysuria, hematuria. Musculoskeletal: Denies muscle aches or joint swelling. All other systems reviewed and all are negative. Past Medical History: Hypertension, intradialytic hypotension, anemia, CKD, renal osteodystrophy, ob esity, obstructive sleep apnea, status post trach, congestive heart failure with systolic diastolic d ysfunction, COPD, diabetic kidney, peripheral neuropathy, gout, hypertension. Past Surgical History: Left arm and fistula, defibrillation, pacemaker, cardiac catheterization. Social History: Denies tobacco, alcohol, illicit drugs. Family History: No kidney disease in the family. Physical Examination: General: Patient is in [id number] respiratory distress. Eyes: Anicteric sclerae, EOMI. Ears, Nose, Mouth and Throat: Oral mucosa moist. No pallor. Neck: Supple. No bruits. Lungs: Coarse breath sounds bilateral. Heart: S1, S2. No pericardial friction rub. Abdomen: Soft, obese, nontender. No rebound. No guarding. Extremities: Edema present in both legs. Neurological: Moving extremities. Cranial nerves intact. Psychiatric: Alert, oriented x3. Normal affect. Laboratory Data: Hemoglobin 9.5, WBC 17,300, platelet count 109,000. Sodium 135, potassium 3.4, chl oride 99, CO2 23, BUN 90, creatinine was 9.09, glucose 316, magnesium 2.2, calcium 8.7. Troponin is 0.11. Impression/plan: End-stage renal disease, fluid overload, congestive heart failure with systolic dwight stolic dysfunction, acute on chronic exacerbation secondary to fluid overload. Patient is scheduled to have urgent dialysis to control fluid overload. Obtain negative fluid balance. Patient will cont inue p.o. fluid restriction. Patient may require dialysis tomorrow. Hyperkalemia. Dialysis was done with 2 potassium dialysate. Monitor lab work and recheck electrolyt es in the morning. Antibiotic hypotension. Patient will continue midodrine for blood pressure support. Anemia and chronic kidney disease. Monitor hemoglobin level. Adjust treatment with JAIRO as needed. Hyperleukocytosis. Patient will need to be screened for sepsis with blood cultures. Congestive heart failure. Patient was screened for acute coronary syndrome. Troponin level remains slightly elevated and plateauing. EB/MODL Voice ID: [id number] Report ID: [id number]
[2019-05-24 05:31] LABS: Absolute Lymphocytes (CBC) 0.2 K/uL (0.7-4.9); Basophils % 0.1 % (0-1.3); Hematocrit 30.9 % (39.6-49.0); Lymphocytes % 1.1 % (15.3-44.8); MPV 11.8 fL (7.6-11.3); RBC Red Blood Cell Count 3.37 M/uL (4.33-5.43)
[2019-05-24 06:02] LABS: Potassium 4.2 mmol/L (3.5-5.1)
--- NOTE | 2019-05-24 06:58 | RAD REPORT ---
EXAM DESCRIPTION: RAD - Chest Single View - 05/24/2019 6:50 am CLINICAL HISTORY: Chest Pain Chest pain. COMPARISON: Chest Single View dated 05/23/2019; Chest Single View dated 05/19/2019; Chest Single View d ated 05/17/2019; Chest Single View dated 04/28/2019 FINDINGS: Portable technique limits examination quality. Tracheostomy tube tip is above the jamia and unchanged in position. Mild interstitial pulmonary mateo a seen. The heart is significantly enlarged with multilead pacer/defibrillator device present. No dis placed fractures. IMPRESSION: Mild CHF versus volume overload pattern. No significant change since comparative study.
[2019-05-24] MEDS: ACETYLCYST 20% 4 ML VIAL IH SCH ×2 (08:05→19:30)
--- NOTE | 2019-05-24 08:29 | P.CNS ---
Date of Consult: 05/24/19 Reason for Consult: Respiratory distress Chief Complaint: Respiratory distress History of Present Illness: Patient is 79 years of age frequent and recurrent admissions due to respiratory distress came in he was dialyzed and is doing better his usual denies any cough sputum hemoptysis fever chills Allergies iodine [Iodine] Allergy (Intermediate, Verified 05/18/19 04:13) Itching SHELLFISH Allergy (Uncoded 05/18/19 04:13) Itching Home Medications: Albuterol Sulfate [Albuterol Sulfate 0.083% Neb Soln] 2.5 mg NEB DAILY 10/21/18 Aspirin [Samantha Chewable Aspirin] 81 mg PO DAILY 10/21/18 Calcium Carbonate [Tums Regular*] 1,000 mg PO DAILY 10/21/18 Clopidogrel Bisulfate [Plavix*] 75 mg PO DAILY 10/21/18 Ferrous Sulfate [Ferrous Sulfate*] 65 mg PO DAILY 10/21/18 Fluticasone Propionate [24 Hour Allergy] 1 spr IH BID 10/21/18 Gabapentin [Neurontin*] 100 mg PO TID 10/21/18 Nitroglycerin [Nitrostat*] 0.4 mg SL DAILYPRN PRN 10/21/18 Omeprazole 20 mg PO BID 10/21/18 Vitamin A 8,000 unit PO DAILY 10/21/18 Zinc 50 mg PO DAILY 10/21/18 allopurinoL [Zyloprim*] 200 mg PO DAILY 10/21/18 Cholecalciferol (Vitamin D3) [Vitamin D 1000 Iu Tab*] 2,000 unit PO DAILY Ipratropium Neb [Atrovent*] 0.5 mg IH QID 11/29/18 Collagenase [Santyl Ointment*] 30 appl TOP DAILY #1 tube 04/01/19 - Past Medical/Surgical History Diabetic: Yes -: Diabetes Mellitus -: COPD -: Hypertension -: PROSTATE CA -: ESRD -: DIALYSIS -: Diverticulitis -: dialysis: MWF -: anemia -: sleep apnea -: gout -: oa -: trach 06/2002 -: HD graft - L upper arm -: pacemaker - Family History Brother Medical History: Hypertension Mother Medical History: Heart disease, Hypertension Sister Medical History: Cancer Notes: breast cancer - Social History Smoking Status: Unknown if ever smoked Alcohol use: Yes CD- Drugs: Yes Caffeine use: Yes Place of Residence: Home Review of Systems General: Weakness Respiratory: Cough, Shortness of Breath Cardiovascular: Edema Physical Examination Temp Pulse Resp BP Pulse Ox 97.7 F 97 H 28 H 132/57 L 97 05/24/19 04:00 05/24/19 07:00 05/24/19 07:00 05/24/19 07:00 05/24/19 07:00 General: Alert, Moderate distress Respiratory: Expiratory wheezes Cardiovascular: Regular rate/rhythm, Normal S1 S2, Edema Laboratory Data (last 24 hrs) 05/23/19 07:30: WBC 17.3 H, Hgb 9.5 L, Hct 30.5 L, Plt Count 109 L 05/23/19 07:30: Sodium 135 L, Potassium 5.4 H, BUN 90 H D, Creatinine 9.09 H* D , Glucose 316 H, Magnesium 2.2, Total Bilirubin 0.4, AST 10 L, ALT 15, Alkaline Phosphatase 107, Lipase 819 H - Problems (1) Respiratory distress Current Visit: Yes Status: Acute Plan: Patient is 79 years of age admitted with recurrent respiratory distress recurrent hospitalizations possible volume overload white count elevated blood gases are normal as not retaining CO2 BNP is significantly elevated 76,000 patient's has moderate aortic stenosis with left ventricular dysfunction seen by Cardiology there is no evidence of an infection he is on bronchodilator therapy as quite possible that his aortic stenosis is was precipitating these recurrent admissions will discuss with cardiology chest x-ray shows cardiomegaly and is clear may have an element of anxiety of started him on low- dose abuse pr
[2019-05-24] MEDS ORDERED: METOPROLOL TARTRATE 5 MG/5 ML INJ IV ONE (08:38)
[2019-05-24] MEDS ORDERED: METOPROLOL TARTRATE 5 MG/5 ML INJ IV STA (08:45)
[2019-05-24] MEDS: INSULIN -REGULAR HUMAN 50 UNIT/0.5 ML ML SQ SCH ×4 (09:11→21:13)
[2019-05-24] MEDS: FUROSEMIDE 20 MG/ 2ML VIAL IV SCH (09:12)
[2019-05-24] MEDS: predniSONE 20 MG TAB PO SCH ×2 (09:12→21:12)
[2019-05-24] MEDS: BUSPIRONE HCL 5 MG TABLET PO SCH ×2 (09:32→21:12)
[2019-05-24] MEDS ORDERED: HEPARIN 5000 UNIT/ML 1 ML VIAL SQ ONE (09:43)
--- NOTE | 2019-05-24 11:29 | CON ---
History Of Present Illness: Mr. Perez is in our hospital with dyspnea. He comes to our hospital s everal times a year. He has never seen me in the office. He has a defibrillator. He has aortic fahad nosis. He has an ejection fraction in the 40% range. His aortic stenosis was mild to moderate when last checked. He is in our hospital every few months with volume overload. Sometimes dialysis is un able to remove as much fluid as they would like that seems to be the case again today. He has a lot of peripheral edema, dyspnea, and his chest x-ray now shows pulmonary edema. He has a tracheostomy. We do not have any data from heart catheterization available to us. He is allergic to iodine. The last time he had a stress test was in November 2018. There was no ischemia, then his ejection fraction on that test was 22%, but his ejection fraction on the echocardiogram the same time was 44%. The am ount of stenosis was moderate. Estimated valve area 1.2. On physical exam, 5 feet 11 inches, 267 po unds. Alert, in moderate respiratory distress. He has runs of tachycardia, where it looks like he h as atrial fibrillation with some triggered ventricular complexes. Most of the time, he is in sinus r hythm. There is atrial sensing and ventricular pacing. These may be runs of ventricular tachycardia , but the pacemaker has not done anything that looks like paced termination, but his defibrillator ne eds to be interrogated. Outpatient Medications: Vitamin A, omeprazole, nitroglycerin, gabapentin, fluticasone, iron sulfate, Plavix, calcium carbonate, aspirin, allopurinol, albuterol, zinc, cholecalciferol, Atrovent, and Catherine tyl ointment (collagenase). Physical Examination: General: He is in mild respiratory distress. Heart: He has a systolic murmur consistent with aortic stenosis. Vital Signs: His heart rate is rather rapid right now. His present blood pressure is 132/57, heart rate 97. Plan: I think the patient would benefit from some beta-blockers. He is on metoprolol 25 b.i.d., but we will give another dose of IV metoprolol and then increase the dose of metoprolol. After the defi brillator interrogation, we will decide if perhaps he should be switched to amiodarone. Thank you very much for your kind referral of Mr. Perez. I will follow him with you. KENYA Voice ID: [id number] Report ID: [id number]
[2019-05-24 11:57] LABS: Arterial Blood Carboxyhemoglob 1.6 % (0-1.5); Blood Gas Oxyhemoglobin 94.8 % (94-97); Blood O2 Saturation 97.2 % (92-98.5)
--- NOTE | 2019-05-24 11:59 | ECHO ---
HEIGHT: 5 ft 11 in WEIGHT: 267 lb 4.8 oz DATE OF STUDY: 05/24/[address]: Thomas Middleton MD 2-DIMENSIONAL: YES M.MODE: YES DOPPLER: YES COLOR FLOW: YES TDS: NO PORTABLE: NO DEFINITY: NO BUBBLE STUDY: NO DIAGNOSIS: CONGESTIVE HEART FAILURE CARDIAC HISTORY: CATHERIZATION: NO SURGERY: NO PROSTHETIC VALVE: NO PACEMAKER: YES MEASUREMENTS (cm) DIASTOLIC (NORMALS) SYSTOLIC (NORMALS) IVSd 1.2 (0.6-1.2) LA Diam 4.4 (1.9-4.0) LVEF 35-39% LVIDd 6.5 (3.5-5.7) LVIDs 5.7 (2.0-3.5) %FS 12% LVPWd 1.3 (0.6-1.2) Ao Diam 3.0 (2.0-3.7) 2 DIMENSIONAL ASSESSMENT: RIGHT ATRIUM: DILATED LEFT ATRIUM: DILATED RIGHT VENTRICLE: PACEMAKER LEFT VENTRICLE: LEFT VENTRICULAR HYPERTROPHY TRICUSPID VALVE: NORMAL MITRAL VALVE: MITRAL ANNULAR CALCIFICATION PULMONIC VALVE: NORMAL AORTIC VALVE: STENOSIS PERICARDIAL EFFUSION: NONE AORTIC ROOT: NORMAL LEFT VENTRICULAR WALL MOTION: GLOBAL HYPOKINESIS. DOPPLER/COLOR FLOW: MODERATE TO SEVERE AORTIC STENOSIS. PEAK/ MEAN GRADIENT 36/20. ESTIMATED AORTIC VALVE AREA 1.2 CENTIMETERS SQUARED. MILD AORTIC, MITRAL AND TRICUSPID REGURGITATION. NORMAL RIGHT VENTRICULAR SYSTOLIC PRESSURE. COMMENTS: DEPRESSED LEFT VENTRICULAR EJECTION FRACTION. LEFT VENTRICULAR HYPERTROPHY. DILATED LEFT AND RIGHT ATRIUM. MODERATE TO SEVERE AORTIC STENOSIS. MILD AORTIC, MITRAL AND TRICUSPID REGURGITATION. TECHNOLOGIST: Yaakov JOVEL
[2019-05-24] MEDS ORDERED: METOPROLOL TAR 25 MG TAB PO ONE (12:57)
[2019-05-24] MEDS ORDERED: EPOETIN ALFA 10,000 UNIT/ML VIAL IV SCH (13:15)
[2019-05-24] MEDS ORDERED: MIDODRINE HCL 5 MG TABLET PO SCH (14:00)
[2019-05-24] MEDS ORDERED: SODIUM CHLORIDE 0.9% 10ML INJ IV PRN (16:13)
[2019-05-24] MEDS ORDERED: PANTOPRAZOLE 40 MG INJ IVP ONE (17:00)
--- NOTE | 2019-05-24 17:29 | PN ---
Date of Progress Note: 05/24/2019 Subjective: Patient had shortness of breath episode with sinus tachycardia. Patient given metoprolo l. Physical Examination: Vital Signs: Blood pressure 131/67, pulse of 94. General: Patient had dialysis yesterday, managed to remove 1800. Chest: Clear to auscultation. Heart: S1 and S2. Tachycardic. Abdomen: Soft, nontender. Extremities: Dressing on the right foot trace edema. Neurologic: Alert. No focal. Laboratory Data: WBC 16.9, H and H 9.6/30.9, platelets 102. Sodium 137, potassium 4.2, bicarb 25, B UN 63, creatinine 6.7, calcium 8.7. Current Medications: The patient on include: 1.Metoprolol 25 b.i.d. 2.Buspirone. 3.Lasix 60 b.i.d. 4.Breathing treatment. 5.Prednisone. 6.Morphine. Assessment And Plan: 1.End-stage renal disease, looked to me normal volume with the present of aortic stenosis, active sh ortness of breath. We are going to try to place the patient on more dry side. I am going to do anot her session of dialysis. We will do sequential with low blood flow to avoid any cardiac stress and w e will follow up. 2.Hypertension. We will utilize the blood pressure for more ultrafiltration. 3.Anemia of chronic kidney disease. Resume JAIRO. 4.Chronic obstructive pulmonary disease as by Pulmonary. 5.Aortic stenosis as by Cardiology. 6.Over volume. We will try to establish better volume control. We will dialyze the patient today a nd tomorrow. ROLANDO/PATRICK Voice ID: [id number] Report ID: [id number]
[2019-05-24] MEDS ORDERED: METOPROLOL TAR 25 MG TAB PO SCH (18:00)
[2019-05-24] MEDS: MORPHINE 2 MG/ML SYR IV PRN (18:01)
--- NOTE | 2019-05-24 18:45 | EKG ---
Test Date: 2019-05-24 Test Time: 09:10:47 [employer] Supervisor: BARBARA MEASUREMENT RESULTS: Intervals: Rate: 99 AR: 154 QRSD: 152 QT: 432 QTc: 554 Slayden: P: 59 AR: 154 QRS: -57 T: 83 INTERPRETIVE STATEMENTS: Atrial-sensed ventricular-paced rhythm tracking sinus rhythm Compared to ECG 05/23/2019 05:27:40 no significant change from previous ECG Electronically Signed On 05-24-19 18:44:51 MICROARRAY SPECIALIST by Thomas Middleton
[2019-05-24] MEDS ORDERED: MAGNESIUM HYDROXIDE 8% 30 ML PO ONE (19:00)
[2019-05-24] MEDS: METOPROLOL TAR 50 MG TAB PO SCH (21:12)
[2019-05-24] MEDS: HEPARIN 5000 UNIT/ML 1 ML VIAL SQ SCH (21:12)
[2019-05-24] MEDS: ALPRAZOLAM 0.25 MG TABLET PO PRN (21:39)
[2019-05-25] MEDS: PIPER/TAZO/NS 2.25gm 2.25 GM/50 ML BAG IVPB SCH ×3 (00:25→17:16)
--- NOTE | 2019-05-25 02:50 | HP ---
Date of Admission: 05/24/2019 Chief Complaint: Shortness of breath. History Of Present Illness: Mr. Perez is a very pleasant 79-year-old male patient who has end-stage renal disease, chronic systolic congestive heart failure, coronary artery disease and COPD and multiple other comorbidities, requires frequent hospitalization and was in the hospital with similar problem of shortness of breath. Today, spray unit feeder to the hospital with complaints of shortness of breath. After he was evaluated in the ER, he was admitted to the hospital. He denies any chest pain. Denies any expectoration. After he was admitted to the hospital, he was continued on nebulizer treatment, steroid. Nephrology consultation was requested and yesterday late evening, he was having more shortness of breath feeling very anxious and he was transferred to ICU for close observation and treatment. When I saw him this morning, he was in some respiratory distress getting nebulizer treatment when I saw him. Allergies: TO IODINE, SHELLFISH, DEMEROL. Medications: List reviewed. Review of Systems: Respiratory: As mentioned above. All other systems reviewed and negative. Social History: Negative for smoking and alcohol use. Family History: Significant for asthma, hypertension, breast cancer. Past Surgical History: AICD placement in June 2014, tracheostomy placement many years ago. 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 Physical Examination: VITAL SIGNS: This morning, temperature 97.7, pulse 89, respiratory rate 22, blood pressure 128/57, oxygen saturation 98%. Height 5 feet 11 inches, weight 267 pounds. General: Awake, alert, oriented, not in distress. HEENT: Head atraumatic, normocephalic. Conjunctivae nonerythematous. Sclerae white. Mouth, no thrush or edema noted. Ears/Nose, no mass, lesion, discharge noted. Neck: Shows presence of tracheostomy. Lungs: Patient in mild respiratory distress and bilateral scattered wheezing in all the lung [place]. Heart: Normal heart sounds, no murmur or gallop. Abdomen: Soft, bowel sounds normal. No guarding, rigidity, tenderness, mass, hepatosplenomegaly, distention, or bruit noted. Extremities: No leg edema. No calf tenderness. Skin: No rash, ulcer, cellulitis. Lymphatics: No lymph node enlargement in neck, supraclavicular, infraclavicular region. Neuro: No focal neurological deficit. Chest: Unremarkable. External Genitalia: Deferred. Rectal: Deferred. Laboratory Data: Yesterday, white count 17.3, hemoglobin 9.5, platelets 109. This morning, white count 16.9, hemoglobin 9.6, platelets 102. Sodium 137, potassium 4.2, chloride 100, bicarb 25, BUN 63, creatinine 6.72, glucose 222. Chest x-ray shows CHF pattern volume overload pattern. Impression: 1. Acute respiratory failure. 2. Acute exacerbation of chronic obstructive pulmonary disease. 3. Congestive heart failure, chronic, systolic, with acute exacerbation. 4. End-stage renal disease, on hemodialysis. 5. Anemia due to chronic kidney disease. 6. Coronary artery disease. 7. Type 2 diabetes mellitus. 8. Hypertension. 9. Osteoarthritis, multiple sites. 10. Gastroesophageal reflux disease. 11. Obstructive sleep apnea. Plan: We will admit the patient to hospital for further evaluation and management of this problem. Patient is appropriate for inpatient and is expected to spend 2 midnights in hospital. Patient will be kept in ICU today. Consult Dr. Easley. Details were discussed with him this morning and we will also consult service operator. Echocardiogram done today showing ejection fraction 30%-35%. Patient had tachycardia problem and responded well to IV and oral metoprolol. This morning that happened after I saw him. DVT prophylaxis will be given using heparin 5000 units subcu every 12 hours. Hog Operator will assist with dialysis and we will see him tomorrow for followup. Continue nebulizer treatment, IV steroid, antibiotics and Mucomyst nebulizer treatment. ODESSA/MODL Voice ID: [id number] ABEL
[2019-05-25] MEDS: IPRATROPIUM BROM 0.5MG/2.5ML NEB SCH ×5 (03:20→20:10)
[2019-05-25] MEDS: ALBUTEROL 2.5 MG/3 ML NEB SOL NEB SCH ×6 (03:20→23:35)
[2019-05-25] MEDS: ONDANSETRON 4 MG/2 ML VIAL IV PRN ×2 (04:10→21:00)
[2019-05-25 05:04] LABS: Absolute Lymphocytes (CBC) 0.3 K/uL (0.7-4.9); Basophils % 0.4 % (0-1.3); Hematocrit 33.5 % (39.6-49.0); Lymphocytes % 1.7 % (15.3-44.8); MPV 11.5 fL (7.6-11.3); RBC Red Blood Cell Count 3.63 M/uL (4.33-5.43)
[2019-05-25 05:37] LABS: Potassium 4.7 mmol/L (3.5-5.1)
[2019-05-25] MEDS: INSULIN -REGULAR HUMAN 50 UNIT/0.5 ML ML SQ SCH ×4 (07:30→21:00)
[2019-05-25] MEDS: ACETYLCYST 20% 4 ML VIAL IH SCH ×2 (07:45→20:10)
[2019-05-25] MEDS: PANTOPRAZOLE 40MG TABLET PO SCH ×2 (08:08→17:15)
[2019-05-25] MEDS: HEPARIN 5000 UNIT/ML 1 ML VIAL SQ SCH (08:08)
[2019-05-25] MEDS: METOPROLOL TAR 50 MG TAB PO SCH ×2 (08:08→20:28)
[2019-05-25] MEDS: BUSPIRONE HCL 5 MG TABLET PO SCH ×2 (08:08→20:27)
[2019-05-25] MEDS: ALPRAZOLAM 0.25 MG TABLET PO PRN (08:09)
[2019-05-25] MEDS: predniSONE 20 MG TAB PO SCH ×2 (08:09→20:27)
[2019-05-25] MEDS: CALCIUM CARBONATE CHEW 500MG TAB PO SCH (08:09)
--- NOTE | 2019-05-25 10:36 | RAD REPORT ---
EXAM DESCRIPTION: RAD - Chest Single View - 05/25/2019 10:06 am CLINICAL HISTORY: COPD Chest pain. COMPARISON: Chest Single View dated 05/24/2019; Chest Single View dated 05/23/2019; Chest Single View dated 05/19/2019; Chest Single View dated 05/17/2019 FINDINGS: Portable technique limits examination quality. Mild interstitial pulmonary edema. The heart is moderately enlarged in size. Tracheostomy tube tip is unchanged in position.Multi lead pacer/defibrillator device is present. IMPRESSION: Stable chest since 05/24/2019.
[2019-05-25] MEDS: ARFORMOTEROL TARTRATE 15 MCG/2 ML VIAL.NEB NEB SCH ×2 (12:05→20:10)
--- NOTE | 2019-05-25 12:11 | P.PN ---
Subjective Date of Service: 05/25/19 Chief Complaint: Respiratory distress No changes still has episodes of significant respiratory distress this is a change from his baseline. Patient is requiring BiPAP also was given Xanax for sedation undergoing dialysis Review of Systems General: Weakness Respiratory: Shortness of Breath Physical Examination - Vital Signs Temperature: 97.1 F Blood Pressure: 135/70 Pulse: 86 Respirations: 21 Pulse Ox (%): 94 - Physical Exam General: Alert, Moderate distress Neck: Supple Respiratory: Clear to auscultation bilaterally Cardiovascular: Normal S1 S2, Edema Assessment & Plan - Problems (Diagnosis) (1) Respiratory distress Current Visit: Yes Status: Acute Plan: Patient admitted with respiratory distress undergoing dialysis would maximize bronchodilator therapy CT pulmonary angiogram he is at risk for thromboembolism Repeat echocardiogram DEPRESSED LEFT VENTRICULAR EJECTION FRACTION. LEFT VENTRICULAR HYPERTROPHY. DILATED LEFT AND RIGHT ATRIUM. MODERATE TO SEVERE AORTIC STENOSIS. MILD AORTIC, MITRAL AND TRICUSPID REGURGITATION. Empiric treatment with Eliquis may not be able to do a CT scan patient's vital signs are stable. White count still minimally elevated patient is on Zosyn oxygenation satisfactory he is not hypercapnic
--- NOTE | 2019-05-25 12:27 | PN ---
Date of Progress Note: 05/25/2019 Subjective: Patient was admitted with shortness of breath. Patient had been dialyzed daily. Yester day, we managed to remove another 2 L a day before 1800. Patient still have shortness of breath. Ta chycardia has been subsided. Physical Examination: Vital Signs: When I saw the patient, blood pressure 124/56, pulse of 93. Chest: Faint rales on the base. Heart: S1, S2. Regular systolic murmur. Abdomen: Soft, nontender. Extremities: Trace edema. Laboratory Data: WBC 14.8, H and H 10.4/33.5, platelets of 95. Sodium 139, potassium 4.7, bicarb 26 , BUN 66, creatinine 6.7, calcium 8.8. Current Medications: The patient on include: 1.Epogen. 2.Midodrine. 3.Zosyn. 4.Calcium carbonate daily 1000. 5.Metoprolol 50 b.i.d. 6.Xanax. 7.Pantoprazole. 8.Prednisone 20 b.i.d. Diagnostic Studies: Chest x-ray done today showing cardiomegaly, congestion better. Assessment And Plan: 1.End-stage renal disease with the presence of shortness of breath, aortic stenosis. We try to esta blish better volume control on the patient. We will try to make the patient on the dry side cautious ly given the aortic stenosis. I am going to do another session of dialysis today. We will try to do a sustained low-efficiency dialysis, so we going to do longer treatment with low blood flow to be ab le to achieve the dry weight that we need. We are going to use sodium module and midodrine to suppor t the blood pressure during the dialysis. Mostly patient will need another session of dialysis [place]. 2.Hypertension, controlled, optimal. We will utilize the blood pressure to establish better volume control. Continue beta-nicki and midodrine for the time being. 3.Anemia of chronic kidney disease. Continue Retacrit. 4.Aortic stenosis. Discussed the case with Dr. Middleton. Plan for cardiac cath when respiratory stat us better. 5.Obstructive sleep apnea as by Pulmonary. 6.Anxiety. 7.Continue Xanax. 8.Sinus tachycardia. Continue metoprolol. 9.Secondary hyperparathyroidism. Continue calcium carbonate. We will follow up phos 4 level. Case discussed with the patient who verbalized understanding. Discussed with the staff and Cardiolog y agreed on the plan. GERI Voice ID: [id number] Report ID: [id number]
[2019-05-25] MEDS: APIXABAN 5 MG TABLET PO SCH ×2 (12:32→20:28)
--- NOTE | 2019-05-25 13:11 | PN ---
Mr. Perez is doing somewhat better today. I think he still needs to lose some more fluid, most lik watson. Still very edematous. His heart rate is lower. He could probably tolerate a higher dose of be ta-nicki. Dr. Easley has already increased it. At some point, Mr. Perez is going to have to c ome to credit and collections analyst with how bad his aortic valve is. I think when his respiratory status is good, we shoul d do a left and right heart cath and see if he needs a transcutaneous AVR or stents in his heart or b ypass surgery. It is likely he needs something done. BERENICE/PATRICK Voice ID: [id number] Report ID: [id number]
[2019-05-25] MEDS: COLLAGENASE 30 GM OINTMENT TOP SCH (18:00)
[2019-05-26] MEDS: PIPER/TAZO/NS 2.25gm 2.25 GM/50 ML BAG IVPB SCH (00:39)
--- NOTE | 2019-05-26 01:03 | PN ---
Date of Progress Note: 05/25/2019 Subjective: Patient was seen this morning for followup and he was lying in bed, not in distress in I CU. He felt a little bit better compared to yesterday, but no significant change. Objective: Vital signs: Reviewed. HEENT: Unremarkable. Lungs: Bilateral clear. No wheezing. No rales. Heart: Sounds normal. Abdomen: No guarding, rigidity, tenderness, or distention. Extremities: No leg edema. Right foot lateral distal aspect has open wound with yellowish colored t issue at the base. No discharge. No bleeding. Surrounding skin is normal. Impression: 1.Acute exacerbation of chronic obstructive pulmonary disease. 2.Congestive heart failure, chronic, systolic, with acute exacerbation. 3.End-stage renal disease, on hemodialysis. 4.Anemia due to chronic kidney disease. 5.Coronary artery disease. 6.Aortic stenosis. Plan: Patient's condition has not improved significantly. His lung findings are better. He is gett ing dialysis. Adequate amount of volume is being removed at the time of dialysis as we understand. I did talk to Dr. Easley a couple of times today. Our concern is that patient is not getting ernesto r despite of treatment that we are providing and Dr. Easley has recommended for patient to go to [facility] at [facility] where his windows consultant, Dr. Carrasquillo, is to evaluate his aortic wall stenosis . As of this evening per my discussion with Dr. Easley, Dr. Carrasquillo has accepted the patient. We ill transfer patient to [facility] once he gets accepted by the hospital. Today's labs: White count 14.8, hemoglobin 10.4, platelets 95. Sodium 139, potassium 4.7, chloride 100, bicarb 26, BUN 66, creatinine 6.70, glucose 128. ODESSA/MODL Voice ID: [id number] Report ID: [id number]
[2019-05-26] MEDS: IPRATROPIUM BROM 0.5MG/2.5ML NEB SCH ×4 (01:39→19:30)
[2019-05-26] MEDS: ALPRAZOLAM 0.25 MG TABLET PO PRN (02:00)
[2019-05-26] MEDS: ALBUTEROL 2.5 MG/3 ML NEB SOL NEB SCH ×5 (04:10→19:30)
[2019-05-26] MEDS: INSULIN -REGULAR HUMAN 50 UNIT/0.5 ML ML SQ SCH ×4 (07:30→22:00)
[2019-05-26] MEDS: ARFORMOTEROL TARTRATE 15 MCG/2 ML VIAL.NEB NEB SCH ×2 (07:54→19:30)
[2019-05-26] MEDS: ACETYLCYST 20% 4 ML VIAL IH SCH ×2 (07:54→19:30)
[2019-05-26] MEDS ORDERED: MIDODRINE HCL 5 MG TABLET PO ONE (08:14)
[2019-05-26] MEDS ORDERED: NOREPINEPHRINE 4 MG in D5W 250 ML IV PRN (08:19)
--- NOTE | 2019-05-26 08:23 | P.PN ---
Subjective Date of Service: 05/26/19 Chief Complaint: Respiratory distress No change patient is still experiencing significant respiratory distress off the BiPAP Review of Systems General: Weakness Respiratory: Cough, Shortness of Breath Cardiovascular: Edema Physical Examination - Vital Signs Temperature: 97.4 F Blood Pressure: 91/55 Pulse: 63 Respirations: 19 Pulse Ox (%): 99 - Physical Exam General: Alert Respiratory: Expiratory wheezes Cardiovascular: Regular rate/rhythm, Edema Assessment & Plan - Problems (Diagnosis) (1) Respiratory distress Current Visit: Yes Status: Acute Plan: Patient admitted with respiratory distress sputum cultures now positive for Serratia Bactrim would be contraindicated change to cefepime discuss with Dr. Salazar and Dr. Carrasquillo . Will consider transfer to [facility] once beds are available not sure what else to do for him discuss with program manager slp is not volume overload although he has recurrent frequent hospital admissions white count is still elevated patient's oxygenation is satisfactory blood pressure is little low hold metoprolol reason resume midodrine Levophed p.r.n. stable for transport prognosis is very poor patient not stable for a CT angio continue with empiric anticoagulation with Eliquis
[2019-05-26] MEDS: PANTOPRAZOLE 40MG TABLET PO SCH ×2 (08:36→17:05)
[2019-05-26] MEDS: CEFEPIME/SWI 1gm 10 ML IV SCH (08:38)
[2019-05-26] MEDS: CALCIUM CARBONATE CHEW 500MG TAB PO SCH (08:42)
[2019-05-26] MEDS: predniSONE 20 MG TAB PO SCH ×2 (08:42→21:56)
[2019-05-26] MEDS ORDERED: APIXABAN 5 MG TABLET PO SCH (09:00)
[2019-05-26] MEDS ORDERED: METOPROLOL TAR 25 MG TAB PO SCH (09:00)
[2019-05-26] MEDS: COLLAGENASE 30 GM OINTMENT TOP SCH (09:00)
[2019-05-26] MEDS: BUSPIRONE HCL 5 MG TABLET PO SCH ×2 (09:00→21:56)
[2019-05-26] MEDS: NEPRO SHAKE 237 ML CAN PO SCH ×3 (09:00→21:00)
[2019-05-26] MEDS ORDERED: CEFEPIME 1 GM/VIAL IV SCH (09:00)
[2019-05-26] MEDS ORDERED: NS 0.9% VIAL 20 ML ONE (09:51)
--- NOTE | 2019-05-26 13:01 | PN ---
Mr. Perez is hypotensive. As soon as we give him enough beta blockers to keep his heart rate under control, he gets hypotensive. I think he has more critical aortic stenosis that our echocardiogram suggested. I would recommend right and left heart catheterization and possible AVR. He probably nee ds some fluid hydration and withholding any further beta blockers. He may need some pressors as well . BERENICE/PATRICK Voice ID: [id number] Report ID: [id number]
--- NOTE | 2019-05-26 14:25 | CON ---
Date of Consultation: 05/25/2019 Reason For Service: Open ulcer on the foot. History Of Present Illness: This is a case of an 79-year-old patient, well known by our service at [facility] since patient has a necrotic diabetic ulcer that was debrided several months ago in the OR. After that, treatment has been challenging and the reason for that is because we had a word from the home health agencies that placement of the wound VAC or even dressing changes have be en a challenge since the patient is very active and is not at home, missing many visits. Patient was advised many times to be compliant with it and importance of taking care of this, off-loading, but i t has been a mess. Now, I see the patient is in ICU with some medical problems and a surgical consul t was obtained for evaluation of the right foot. Past Medical History: See my previous consult. Past Surgical History: See my previous consult. Allergies: SEE MY PREVIOUS CONSULT. Family History: See my previous consult. Review of Systems: Ten-points otherwise unremarkable except obviously for respiratory findings that he has at this [facility]. Physical Examination: General: The patient is awake and alert. No distress. HEENT: Pupils anicteric. Abdomen: Soft and depressible. No guarding or rebound. Extremities: Over the right foot, patient has a lateral ulcer present include the fifth toe and the metatarsal region. very weak, but once again he has not been compliant with the treatment . Dorsalis pedis pulses chronically are very diminished. No cyanosis. Laboratory Data: Blood work review with also WBC count of 14.8 and hemoglobin of 10. Creatinine is 6.7. Assessment: This is an 79-year-old patient, we consulted for wound care. We try to see him every we ek since he show up every now and then. Also home health agency has been trying to get the treatment done properly but it has not been that smooth. Now that he is here, we will once again crisis intervention counselor him about the importance of compliance with wound care. We have been trying to use the wound VAC on him. So we are going to continue with that treatment. We also encouraged him to do a complete periphera l vascular disease evaluation by his vascular surgeon in [place], but he has not made it there yet. In the meantime, until the wound VAC comes we can do the wet to dry. HM/MODL Voice ID: [id number] Report ID: [id number]
--- NOTE | 2019-05-26 14:31 | PN ---
Date of Progress Note: 05/26/2019 Subjective: Patient was admitted with over volume shortness of breath, questionable of aortic stenos is, CHF exacerbation. Yesterday, we try to dialyze him because of the infiltration. We could not continue dialysis. Patie nt today had a drop and his blood pressure down to the 90. Patient was placed on Lopressor, increase to 50. Physical Examination: Vital Signs: Blood pressure 91/55, pulse of 63, afebrile. Patient on BiPAP. Chest: Crackles on the base. Heart: S1, S2. Systolic murmur. Abdomen: Soft, nontender. Extremities: Trace edema. Laboratory Data: Chemistry is still pending. WBC 14.8, hemoglobin and hematocrit 10.4/33.5. Current Medications: The patient on include midodrine, Levophed, Eliquis, Epogen, calcium carbonate, metoprolol, prednisone. Assessment And Plan: 1.End-stage renal disease, slightly on the over volume side. I can attempt another dialysis today. We will try to dialyze the patient on SLED form and we will monitor the patient. Unfortunately, su rothman may need a giving being on pressor. Patient will need to be on CVVH and there is initiation of transfer process for [facility] for his cardiology. 2.Hypertension, currently hypotension. We will hold blood pressure medication. Continue Levophed a nd midodrine. 3.Respiratory failure, questionable of pulmonary embolism. Patient was started on Eliquis after octavio cing a central line. We will consider switch him to heparin drip given the possibility of needing elias rgery. 4.Aortic stenosis, congestive heart failure as by Cardiology. We will try to optimize fluid status. 5.Anemia of chronic kidney disease. Continue JAIRO. 6.Secondary hyperparathyroidism. Continue calcium carbonate. ROLANDO/PATRICK Voice ID: [id number] Report ID: [id number]
[2019-05-26] MEDS: NOREPINEPHRINE 4 MG in D5W 250 ML IV PRN ×2 (14:45→23:45)
[2019-05-26 15:33] LABS: Albumin 2.4 g/dL (3.4-5.0); BUN Blood Urea Nitrogen 96 mg/dL (7-18); Bicarbonate 21 mmol/L (21-32); Glucose Level 220 mg/dL (74-106); Potassium 5.6 mmol/L (3.5-5.1); Sodium Level 135 mmol/L (136-145)
[2019-05-26 15:39] LABS: Phosphorus > 9.0 mg/dL (2.5-4.9)
[2019-05-26] MEDS ORDERED: ALBUTEROL 2.5 MG/3 ML NEB SOL NEB ONE (16:08)
[2019-05-26] MEDS ORDERED: D50W 25 GM/50 ML SYRINGE/VIAL IV PRN (16:09)
[2019-05-26] MEDS ORDERED: GLUCAGON 1 MG/VIAL IM PRN (16:09)
[2019-05-26] MEDS ORDERED: INSULIN -REGULAR HUMAN 50 UNIT/0.5 ML ML IV ONE (16:30)
[2019-05-26] MEDS ORDERED: D50W 25 GM/50 ML SYRINGE/VIAL IV ONE (17:00)
[2019-05-26] MEDS ORDERED: NOREPINEPHRINE 8 MG in Dextrose 5%-Water 500 ML IV PRN (17:38)
[2019-05-26] MEDS: ONDANSETRON 4 MG/2 ML VIAL IV PRN (18:45)
[2019-05-26] MEDS ORDERED: LIDOCAINE 1% 20 ML MDV ONE (19:39)
[2019-05-26] MEDS: METOPROLOL TAR 25 MG TAB PO SCH (21:00)
[2019-05-26] MEDS: Enoxaparin 120 MG/0.8 ML SYR SQ SCH (21:58)
--- NOTE | 2019-05-26 22:46 | PN ---
Date of Progress Note: 05/26/2019 Subjective: Patient was seen this morning for followup. He was lying in bed, on BiPAP, appears weak er than normal. His systolic blood pressure was around 95 to 96 when I saw him. Objective: Vital Signs: Reviewed. HEENT: Unremarkable. Lungs: Bilateral clear to auscultation. No wheezing, no rales. Heart: Sounds normal. Abdomen: Soft. Bowel sounds normal. No guarding, rigidity, tenderness, or distention. Extremities: No leg edema. Impression: 1.Congestive heart failure, chronic, systolic, with acute exacerbation. 2.Acute exacerbation of chronic obstructive pulmonary disease. 3.End-stage renal disease, on hemodialysis. 4.Aortic stenosis. 5.Anemia due to chronic kidney disease. 6.Diabetes mellitus. 7.Hypertension. Plan: We will continue current medications. Continue current oxygen nebulizer treatment, steroids, antibiotics. Continue to follow with Dr. Easley from Pulmonary Service and patient was started on Levophed for low blood pressure problem and Dr. Guajardo was requested to place a central line. We a re awaiting for acceptance at [facility]. Once he gets accepted, plan is to transfer him via ground ambulance. I did call patient's sister this morning at [phone] and details were discussed with her. ODESSA/MODL Voice ID: [id number] Report ID: [id number]
--- NOTE | 2019-05-27 00:07 | PN ---
Date of Progress Note: 05/26/2019 Reason For Consult: Central line placement. History Of Present Illness: This is the case of an 79-year-old patient, known by us due to a foot ul cer. In ICU, multiple medical problems. One of them is to rule out PE. He is not stable enough to even go for CAT scan. He has a pacemaker in the right chest area. He has a tracheostomy with a shor t neck. Physical Examination: Chest: Bilateral breath sounds. Abdomen: Soft and depressible. Extremities: Once again, good capillary refill. Wound on the right foot. Blood work reviewed. Plan: He has a peripheral line right now. He is currently on hemodialysis. They just gave him aidan ral thousand units of heparin as a bolus just a few minutes ago. high risk for the neck, high risk for the chest, so even though we can try a femoral emergency, if that is what th ey need. I just discussed the case with the primary doctor. He just ordered also Lovenox 120 and ey are waiting for him to be taken to the CT scan whenever he is more stable to rule out PE too. If we will have to do this line, right now he is on heparin, so I have to wait, but if we stopped the he neno, then I will be able to do that. I would like to do an ultrasound of the right groin area, whi ch is the safest point at this moment to make sure there is no clot in that area being pushed into th e chest. Complicated case, we understand that, at the same time we do not want him to exsanguinate, so we are going to try and time this when he is not on heparin. In the meantime, he has a peripheral line. The benefits, alternatives, and risks of central line were discussed with the patient, which include, but are not limited to infection, bleeding, damage to adjacent structures, hemothorax, pneum othorax, hematomas, myocardial infarction, pulmonary embolism, and even . It will be ideal to g o into the right chest area, he has a pacemaker in that area. On the left side, he has AV fistula, A V graft for hemodialysis. On the neck, he is covered with a tracheostomy. So location for it is jack y challenging. We only have the right femoral left to be safer and even with heparin, we still have to rule out to make sure there was no clots there, since there are some comments that patient did try to rule out PE on him. DONNA/MODL Voice ID: [id number] Report ID: [id number]
[2019-05-27] MEDS: ALBUTEROL 2.5 MG/3 ML NEB SOL NEB SCH ×3 (00:10→08:30)
[2019-05-27] MEDS: ALPRAZOLAM 0.25 MG TABLET PO PRN ×2 (01:09→14:18)
[2019-05-27] MEDS: IPRATROPIUM BROM 0.5MG/2.5ML NEB SCH ×4 (03:05→20:20)
[2019-05-27] MEDS: COLLAGENASE 30 GM OINTMENT TOP SCH (05:00)
[2019-05-27 05:50] LABS: Albumin 2.3 g/dL (3.4-5.0); Phosphorus 7.7 mg/dL (2.5-4.9); Potassium 4.6 mmol/L (3.5-5.1)
[2019-05-27 06:21] VITALS: BMI 35.9
--- NOTE | 2019-05-27 07:01 | RAD REPORT ---
EXAM DESCRIPTION: US - Extrem Venous W Compress Alvarez - 05/26/2019 11:18 pm CLINICAL HISTORY: Bilateral leg pain and swelling COMPARISON: None. TECHNIQUE: Real-time sonographic evaluation of the bilateral lower extremity common femoral, superfi cial femoral, popliteal and posterior tibial veins was performed. FINDINGS: Normal compressibility, flow augmentation, phasic flow and spontaneous flow are identified in the left and right lower extremity common femoral, superficial femoral, popliteal and posterior t ibial veins. No intraluminal filling defects seen. Preliminary findings provided at the time of the study. IMPRESSION: No DVT in either lower extremity.
[2019-05-27] MEDS: INSULIN -REGULAR HUMAN 50 UNIT/0.5 ML ML SQ SCH ×4 (07:30→22:08)
[2019-05-27] MEDS: ACETYLCYST 20% 4 ML VIAL IH SCH (08:30)
[2019-05-27] MEDS: ARFORMOTEROL TARTRATE 15 MCG/2 ML VIAL.NEB NEB SCH ×2 (08:30→20:20)
[2019-05-27] MEDS: METOPROLOL TAR 25 MG TAB PO SCH ×2 (09:00→21:00)
[2019-05-27 09:23] LABS: Absolute Lymphocytes (CBC) 0.2 K/uL (0.7-4.9); Basophils % 0.4 % (0-1.3); Hematocrit 32.8 % (39.6-49.0); Lymphocytes % 2.8 % (15.3-44.8); MPV 12.1 fL (7.6-11.3); RBC Red Blood Cell Count 3.59 M/uL (4.33-5.43)
--- NOTE | 2019-05-27 09:38 | P.PN ---
Subjective Date of Service: 05/27/19 Chief Complaint: Respiratory distress Patient is now on trach collars tolerating it is off vasopressors is still tachypneic waiting transfer unable to obtain an IV central line access patient' s white count is now normal Review of Systems General: Weakness Respiratory: Shortness of Breath Physical Examination - Vital Signs Temperature: 98.0 F Blood Pressure: 119/53 Pulse: 78 Respirations: 25 Pulse Ox (%): 95 - Physical Exam General: Alert, Moderate distress Respiratory: Expiratory wheezes Cardiovascular: Edema Gastrointestinal: Normal bowel sounds Assessment & Plan - Problems (Diagnosis) (1) Respiratory distress Current Visit: Yes Status: Acute Plan: Patient admitted with respiratory failure his white count is now normal Serratia senescence isolated sensitive to cefepime is also anti coagulated unable to do CT angio allergic to iodine unable to obtain any peripheral access in the right groin patient has a pacemaker on the right side he also undergoes dialysis blood pressure is satisfactory awaiting transfer to [facility] evaluation for his severe aortic stenosis contributing to recurrent admissions to the hospital continue with bronchodilators patient is empirically anti coagulated venous Dopplers negative for DVT will hold off on the Mucomyst for now could be precipitating bronchospasm
[2019-05-27] MEDS ORDERED: ALBUTEROL 2.5 MG/3 ML NEB SOL NEB PRN ×2 (09:40→17:00)
--- NOTE | 2019-05-27 10:06 | RAD REPORT ---
EXAM DESCRIPTION: RAD - Chest Single View - 05/27/2019 9:55 am CLINICAL HISTORY: Respiratory distress COMPARISON: Chest Single View dated 05/25/2019; Chest Single View dated 05/24/2019 TECHNIQUE: AP portable chest image was obtained 05/27/2019 9:55 am . FINDINGS: Underinflated. No peripheral mass or consolidation. Cardiomegaly has significantly improve d from the prior studies. Vasculature has decreased in prominence. Interstitial markings are prominen t but improved. No measurable pleural effusion and no pneumothorax. No acute bony abnormality seen. N o acute aortic finding. Trach tube is in place. Right-sided pacemaker/defibrillator remains in place. No new tube or line seen. IMPRESSION: Minimal remnant failure/ volume overload findings. Examination is improved from prior imaging with no progressive process seen.
[2019-05-27] MEDS: predniSONE 20 MG TAB PO SCH ×2 (10:34→22:05)
[2019-05-27] MEDS: PANTOPRAZOLE 40MG TABLET PO SCH ×2 (10:34→18:23)
[2019-05-27] MEDS: CALCIUM CARBONATE CHEW 500MG TAB PO SCH (10:34)
[2019-05-27] MEDS: CEFEPIME/SWI 1gm 10 ML IV SCH (10:35)
[2019-05-27] MEDS: BUSPIRONE HCL 5 MG TABLET PO SCH ×2 (10:38→22:05)
[2019-05-27] MEDS: NEPRO SHAKE 237 ML CAN PO SCH ×3 (10:39→21:00)
--- NOTE | 2019-05-27 12:08 | P.PN ---
Subjective Date of Service: 05/27/19 Chief Complaint: Respiratory distress Subjective: No new changes Subjective pt with ESRD , admitted for chest pain and SOB today tolerated HD last night with 2liter UF CXR with improvement pending transfer to medical center , HD tomorrow will change midodrine to bid complaining of Rt thigh pain after trial of central line placement , no visible hematoma , cont to monitor and consider pelvic and LE CT if developing hematoma Physical exam general: AAOX3, in pain , obese Neck; Supple, No elevated JVD , Tacheostomy hear: RRR, normal S1,2 no murmur or rub Chest: decreased air entry B/l , no rales or wheezes Abdomen: Soft , Nt Extremities trace edema A/P End-stage renal disease via lt AVF next HD tomorrow renal dose meds CHF with pulmonary edema improving UF as tolerated Anemia of chronic disease Cont Epogen MBD Phos >9.0 Cont binders HTN BP borderline will oncrease midodrine Aortic stenosis plan to transfer for AVR COPD cont inhalers Physical Examination - Vital Signs Temperature: 98.0 F Blood Pressure: 120/72 Pulse: 82 Respirations: 19 Pulse Ox (%): 95
[2019-05-27] MEDS: MORPHINE 2 MG/ML SYR IV PRN ×2 (12:25→16:20)
[2019-05-27 16:59] VITALS: TEMP 98.2
--- NOTE | 2019-05-27 19:08 | PN ---
Date of Progress Note: 05/27/2019 Diagnosis: Right foot nonhealing wound and also need for central line. The right foot wound is unchanged. We recommended wound VAC. For the central line, we explained to him the benefits and alternative of central line placement, which include, but not limited to infecti on, bleeding, damage to adjacent structures as complication, pneumothorax, hemothorax, hematomas, PE, DVT, OK, or even . He also understands this may not relieve the symptoms. He might need more than one surgical intervention. The neck, he has very short neck with straps from his tracheostomy w ith making the central line the high risk for a contamination. On the left side, subclavian should n ot be used since he have AV fistula and AV graft before in the left arm and the renal doctors once ag ain want to preserve that area, so we will go to the right subclavian region, patient has a pacemaker , once again making it difficult with the rest of the sludge in that pacemaker. So, we go to the [facility] groin we did a venous ultrasound. Patient is very obese. Still the area was prepped and draped i n a sterile fashion. Marcaine 1% placed in that area. An 18-gauge needle placed in the right femora l vein, but after 2 to 3 attempts, we cannot treat the guidewire through. I am not sure the understa nding of that one, but we aborted that procedure to avoid any other problems. Pressure applied over the area and covered with sterile dressings. Plan: Patient is off Levophed right now. He still have a peripheral line. They are going to try to find another peripheral line and see if they can deal with that one. There was a chance to go to th e left femoral, obviously the patient does not want a procedure at this moment with any other puncture, but if I get into trouble that I guess the next place we can go. HM/MODL Voice ID: [id number] Report ID: [id number]
[2019-05-27] MEDS ORDERED: LIDOCAINE 1% MPF 5 ML VIAL ONE (19:50)
[2019-05-27] MEDS ORDERED: MIDODRINE HCL 5 MG TABLET PO SCH (21:00)
[2019-05-27] MEDS: Enoxaparin 120 MG/0.8 ML SYR SQ SCH (22:06)
[2019-05-27 22:52] VITALS: O2SAT 95
[2019-05-28] MEDS: IPRATROPIUM BROM 0.5MG/2.5ML NEB SCH (02:15)
[2019-05-28 07:09] VITALS: BP 108/32
[2019-05-28] MEDS: INSULIN -REGULAR HUMAN 50 UNIT/0.5 ML ML SQ SCH (07:30)
[2019-05-28] MEDS: ALPRAZOLAM 0.25 MG TABLET PO PRN (07:47)
[2019-05-28] MEDS: PANTOPRAZOLE 40MG TABLET PO SCH (07:48)
--- NOTE | 2019-05-29 23:22 | DS ---
Date of Discharge: 05/28/2019 Disposition: Discharged to go to [facility] via ground transportation. Hospital Course: This is an 79-year-old male patient, who was admitted to the hospital when he came into emergency room with shortness of breath. Patient has multiple chronic comorbidities including e nd-stage renal disease on hemodialysis, COPD, chronic systolic congestive heart failure, coronary art katie disease, and aortic stenosis. He has had multiple hospital admissions mostly due to COPD exacerb ation and volume overload type of problem with congestive heart failure and end-stage renal disease. At this time, he was admitted to the hospital after he came into emergency room with shortness of br eath. Guest Room Attendant was consulted for his dialysis support and Dr. Easley was consulted from [facility]. Patient was initially admitted to the floor, but transferred to ICU because of his shortness of breath problem. In ICU, he was kept throughout this hospitalization, has a tracheostomy tube, and B iPAP was hooked up for his respiratory failure problem. His shortness of breath was different than h is usual as his lungs were clear during this hospitalization and there was no audible wheezing on exa m. Empiric antibiotics, steroids were given to him. Nebulizer treatment was given to him. Pulmonar y consultation from Dr. Easley and cardiology consultation from Dr. Middleton was obtained. Echocardi ogram showed ejection fraction around 30% to 35%. Dr. Easley wanted to consider possibility of memo luation for aortic stenosis, could be causing all this problem for this particular admission, and I a greed and he did communicate with the patient's sanitation superintendent, Dr. Carrasquillo, at [facility] and the patient was accepted once bed was available. We transferred him via ground ambulance. At some poin t, he did require vasopressor medication because his blood pressure was on lower side. Venous Dopple r of leg was negative for DVT. On May 27 and May 28, Dr. Easley per my request provi ded coverage for this patient in my absence. Final Diagnoses: 1.Acute respiratory failure with hypoxia. 2.Acute exacerbation of chronic obstructive pulmonary disease. 3.Congestive heart failure, chronic, systolic, with acute exacerbation. 4.End-stage renal disease, on hemodialysis. 5.Anemia due to chronic kidney disease. 6.Coronary artery disease. 7.Type 2 diabetes mellitus. 8.Hypertension. 9.Osteoarthritis, multiple sites. 10.Gastroesophageal reflux disease. 11.Obstructive sleep apnea. Laboratory Data: Labs done during this hospitalization: Upon admission, white count 17.3, hemoglobi n 9.5, platelets 109; and on 05/27/2019, white count 7.7, hemoglobin 10.4, platelets 81. Last chemis try, sodium 137, potassium 4.6, chloride 100, bicarb 25, BUN 62, creatinine 5.66, glucose 188 and thi s is from 05/27/2019. ODESSA/MODL Voice ID: [id number] Report ID: [id number]
== END 2019-05-28 07:57 | disposition short-term general hospital (02) | DRG 189 ==
LOC: ER 05:04 → ERHOLD 09:36 → 4TH 10:46 → 3RD-ICU 22:00
PROVIDERS: ADMIT Internal Medicine; ATTEND Internal Medicine
PROC: 5A1D70Z Performance of Urinary Filtration, Intermittent, Less than 6 Hours Per Day (ICD-10-PCS; 2019-05-23)
PROC: 5A09357 Assistance with Respiratory Ventilation, Less than 24 Consecutive Hours, Continuous Positive Airway Pressure (ICD-10-PCS; principal; 2019-05-24)
PROC: 5A1D70Z Performance of Urinary Filtration, Intermittent, Less than 6 Hours Per Day (ICD-10-PCS; 2019-05-24)
PROC: 5A1D70Z Performance of Urinary Filtration, Intermittent, Less than 6 Hours Per Day (ICD-10-PCS; 2019-05-25)
PROC: 5A1D70Z Performance of Urinary Filtration, Intermittent, Less than 6 Hours Per Day (ICD-10-PCS; 2019-05-26)
DX: J96.01 Acute respiratory failure with hypoxia (principal); I50.23 Acute on chronic systolic (congestive) heart failure; N18.6 End stage renal disease; J44.1 Chronic obstructive pulmonary disease with (acute) exacerbation; I13.2 Hypertensive heart and chronic kidney disease with heart failure and with stage 5 chronic kidney disease, or end stage renal disease; E11.22 Type 2 diabetes mellitus with diabetic chronic kidney disease; D63.1 Anemia in chronic kidney disease; G47.33 Obstructive sleep apnea (adult) (pediatric); J30.9 Allergic rhinitis, unspecified; I25.10 Atherosclerotic heart disease of native coronary artery without angina pectoris; M15.9 Polyosteoarthritis, unspecified; K57.90 Diverticulosis of intestine, part unspecified, without perforation or abscess without bleeding; K21.9 Gastro-esophageal reflux disease without esophagitis; I35.0 Nonrheumatic aortic (valve) stenosis; F41.9 Anxiety disorder, unspecified; R00.0 Tachycardia, unspecified; E11.621 Type 2 diabetes mellitus with foot ulcer; Z93.0 Tracheostomy status; Z95.0 Presence of cardiac pacemaker
CPT/HCPCS: 36415; 71045; 80048; 80069; 80076; 82550; 82553; 82805; 82947; 83690; 83735; 83880; 84484; 85025; 85610; 85730; 87040; 87070; 87077; 87186; 87205; 90935; 93005; 93306; 93970; 94640; 94660; 96365; 96372; 96375; 99285; C9113; J0692; J1644; J1650; J1940; J2270; J2405; J2543; J2920; J2930; J3590; J7060; J7512; J7605; Q5105

== ENCOUNTER 2019-10-09 01:02 | Emergency (ER) | payer OTHER, MEDICARE ==
--- OUTSIDE RECORDS SUMMARY | 2019-10-09 01:09 | XMS REPORT | Clinical Summary ---
:1940 Author Organization [facility] Address [address] [place] [address] Care Team Providers Name Role Phone Aaron Salazar MD Primary Care Provider Allergies Active Allergy Reactions Severity Noted Date Comments Ciprofloxacin Itching 07/07/2018 Iodine Itching 07/30/2017 Meperidine Other (See Comments) 07/07/2018 Shrimp Itching 07/30/2017 Medications Medication Sig Dispensed Refills Start End Date Status Date fluticasone 1 spray by Each 0 Ac tive (FLONASE) 50 Nare route mcg/actuation daily. nasal spray gabapentin Take 100 mg by 0 Acti ve (NEURONTIN) 100 mg mouth 3 (three) capsule times a day. amIODarone Take 100 mg by 0 Acti ve (PACERONE) 200 MG mouth daily. tablet sevelamer Take 1,600 mg by 0 Act go (RENVELA) 800 mg mouth 3 (three) tablet times a day with meals. aspirin (ECOTRIN) Take 162 mg by 0 Active 81 MG enteric mouth daily. coated tablet ALLOPURINOL ORAL Take 200 mg by 0 06/09/19 Discontinued mouth daily. 20 (Stop T aking at Discharge) ASCORBIC ACID, Take 1 tablet by 0 06/09/19 Discontinued VITAMIN C, ORAL mouth daily. 20 ( Stop Taking at Discharge) cholecalciferol, Take 2,000 Units 0 Discontinued vitamin D3, by mouth daily. 20 (S top Taking at (VITAMIN D3) 2,000 D ischarge) unit capsule capsule ipratropium 2 sprays into 0 06/09/19 Disc ontinued (ATROVENT) 0.03 % each nostril 20 (Stop Taking at nasal spray every 12 Discharg e) (twelve) hours. loratadine Take 10 mg by 0 06/09/19 Disco ntinued (CLARITIN) 10 mg mouth daily. 20 (Stop Taking at tablet Discharge) nitroglycerin Place 0.4 mg 0 06/09/19 Dis continued (NITROSTAT) 0.4 MG under the tongue 20 (Stop Taking at SL tablet every 5 (five) Disch arge) minutes as needed for chest pain. midodrine Take 20 mg by 0 06/09/19 Discon tinued (PROAMATINE) 10 MG mouth 3 (three) 20 (Stop Taking at tablet times a week. Discha rge) omeprazole Take 20 mg by 0 06/09/19 Disco ntinued (PriLOSEC) 20 MG mouth 2 (two) 20 (Stop Taking at capsule times a day. Dischar ge) predniSONE daily. 0 06/09/19 Discontin ued (DELTASONE) 10 mg 9 20 (S top Taking at tablet Discharge) clopidogrel Take 1 tablet 90 tablet 3 06/09/19 Disc ontinued (PLAVIX) 75 mg (75 mg total) by 9 20 (Stop Taking at tablet mouth daily. Dischar ge) fluticasone Inhale. 0 06/09/19 Disconti nued furoate 100 20 (Stop Ta nicole at mcg/actuation Discha rge) blister with device traMADol (ULTRAM) Take 50 mg by 0 06/09/19 Discontinued 50 mg tablet mouth. 9 20 (Stop T aking at Discharge) polyethylene Take 17 g by 30 packet 0 07/10/19 Expi red glycol (MIRALAX) mouth daily for 0 20 17 gram packet 30 days. oseltamivir Take 1 capsule 12 capsule 0 06/16/19 Ex pired (TAMIFLU) 30 MG (30 mg total) by 0 20 capsule mouth 3 (three) times a week for 3 days. ondansetron ODT Take 1 tablet (4 0 07/08/ 0 (ZOFRAN-ODT) 4 MG mg total) by 0 20 disintegrating mouth every 8 tablet (eight) hours as needed for nausea or vomiting for up to 30 days. lisinopriL Take 1 tablet (5 30 tablet 0 07/10/19 Ex pired (PRINIVIL) 5 mg mg total) by 0 20 tablet mouth daily for 30 days. levalbuterol Take 3 mL (1.25 540 mL 0 07/09/19 E xpired (XOPENEX) 1.25 mg total) by 0 20 mg/3 mL nebulizer nebulization solutionIndication every 4 (four) s: Influenza A hours for 30 (H1N1) days. ipratropium Take 2.5 mL (0.5 0 07/09/19 E xpired (ATROVENT) 0.02 % mg total) by 0 20 nebulizer nebulization solutionIndication every 4 (four) s: Influenza A hours for 30 (H1N1) days. insulin NPH Inject 6 Units 10 mL 12 07/10/19 Exp ired (HumuLIN-N) 100 under the skin 0 20 unit/mL injection daily for 30 days. insulin lispro Inject 0-12 10 mL 12 07/09/19 Exp ired (HumaLOG) 100 Units under the 0 20 unit/mL injection skin every 4 (four) hours for 30 days. heparin sod,pork Infuse 1,100 0 07/09/19 in 0.45% NaCl Units/hr into a 0 20 (HEParin, porcine, venous catheter in 0.45% NaCl) Titrated for 30 25,000 unit/500 mL days. infusion epoetin zaid-epbx Infuse 13,000 0 07/10/19 10,000 unit/mL Units into a 0 20 solution 10,000 venous catheter Units, epoetin 3 (three) times zaid-epbx 3,000 a week for 30 unit/mL solution days. 3,000 Units injection docusate sodium Take 1 capsule 60 capsule 0 07/09/19 (COLACE) 100 MG (100 mg total) 0 20 capsule by mouth 2 (two) times a day for 30 days. dextrose 50% Infuse 50 mL (25 0 07/09/19 syringe g total) into a 0 20 venous catheter every 20 (twenty) minutes as needed (If blood glucose is 40 mg/dL or LESS) for up to 30 days. dextrose 50% Infuse 25 mL 0 07/09/19 Expi red syringe (12.5 g total) 0 20 into a venous catheter every 20 (twenty) minutes as needed (If blood glucose is between 41-69 mg/dL) for up to 30 days. budesonide Take 2 mL (0.5 120 mL 0 07/09/19 Expi red (PULMICORT) 0.5 mg total) by 0 20 mg/2 mL nebulizer nebulization solutionIndication every 12 s: Influenza A (twelve) hours (H1N1) for 30 days. acetaminophen Insert 1 0 07/09/19 d (TYLENOL) 650 MG suppository (650 0 20 suppository mg total) into the rectum every 6 (six) hours as needed for fever (GREATER than 100.4) for up to 30 days. predniSONE Take 1 tablet 30 tablet 0 07/10/19 Expir ed (DELTASONE) 10 mg (10 mg total) by 0 20 tablet mouth daily for 30 days. pantoprazole Take 1 tablet 60 tablet 0 07/09/19 Exp ired (PROTONIX) 40 MG (40 mg total) by 0 20 EC tablet mouth 2 (two) times a day for 30 days. midodrine Take 2 tablets 24 tablet 0 07/11/19 Expir ed (PROAMATINE) 10 MG (20 mg total) by 0 20 tablet mouth 3 (three) times a week for 30 days. fexofenadine Take 1 tablet 30 tablet 0 07/10/19 Exp ired (DRAKE) 60 MG (60 mg total) by 0 20 tablet mouth daily for 30 days. 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 07/22/2017 without angina pectoris Overview: Added automatically from request for saud carrizalesy [id number] Chest pain 07/22/2017 Overview: Added automatically from request for saud carrizalesy [id number] Angina pectoris 07/21/2017 Coronary artery disease of nikolski artery of [place]ikolski hea rt with stable 07/21/2017 angina pectoris 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 03/10/2017 PAD (peripheral artery disease) 08/05/2016 Cardiomyopathy 08/05/2016 Systolic congestive heart failure 08/05/2016 Encounters Date Type Specialty Care Team Description 06/01/2019 Hospital Procedural [facility] SM[facility], Congestive h eart Encounter Cardiology PhD failure, unspec ified HF chronicity, unspecified hea rt failure type (H CC) 06/01/2019 Hospital Procedural [facility], Congestive h eart Encounter Cardiology PhD failure, unspec ified HF chronicity, unspecified hea rt failure type (H CC) 05/28/2019 - [facility] Critical [facility] Influenza A (H 1N1) 06/09/2019 Encounter Medicine MD Susan (Primary Dx) Trey Norman MD 05/26/2019 Intake Access 03/08/2019 Office Visit Cardiology [facility] Dilated cardiom yopathy (HCC) (Primary Dx); MD Susan Coronary artery disease involving nikolski coronary artery of nikolski heart without angina pectoris after 10/08/2018 Family History Relation Name Status Comments Father Mother Social History Tobacco Use Types Packs/Day Years Used Date Former Smoker Cigarettes, Cigars 2 25 Quit: Smokeless Tobacco: Never Used Tobacco Cessation: Counseling Given: No Alcohol Use Drinks/Week oz/Week Comments No Sex Assigned at Date Recorded Not on file Job Start Date Occupation Industry Not on file Not on file Not on file Travel History Travel Start Travel End No recent travel history available. Last Filed Vital Signs Vital Sign Reading Time Taken Comments Blood Pressure 131/59 06/09/2019 6:00 PM [employer] Pulse 86 06/09/2019 7:30 PM [employer] Temperature 36.7 C (98 F) 06/09/2019 5:00 PM [employer] Respiratory Rate 22 06/09/2019 7:30 PM [employer] Oxygen Saturation 100% 06/09/2019 7:16 PM [employer] Inhaled Oxygen Concentration - - Weight 124 kg (274 lb 7.6 oz) 06/09/2019 6:00 AM [employer] Height 180.3 cm (5' 11") 05/28/2019 9:15 AM [employer] Body Mass Index 38.28 05/28/2019 9:15 AM [employer] Plan of Treatment Health Maintenance Due Date Last Done Comments DIABETIC RETINAL EYE EXAM 1940 DIABETIC FOOT EXAM 01/12/1950 URINE MICROALBUMIN 01/12/1949 SHINGLES VACCINES (#1) 01/12/1989 65+ PNEUMOCOCCAL VACCINE (1 of 2 - PCV13) 01/13/2004 INFLUENZA VACCINE 11/12/2019 Implants Implanted Type Area [employer] Device Shelf Model / Identifier Expiration Serial / Date Lot Device Vasclr Clsr Vasoactive Intstnl Peptd 8fr Angio- Seal - [id number] Cardiovascular N/A: 06/10/2017 [id number] / Implanted: 08/07/2016 at [facility] (Quantity not on file) Implants N/A / [id number] Stent Bili Protege Everflex Slf-Xpndbl 120cm [id number] - [id number] Coronary Stents N/A: [employer] 05/03/2017 [id number] 12 0 / Implanted: 08/07/2016 at [facility] (Quantity not on file) N/A / [id number] Procedures Procedure Name Priority Date/Time Associated Comments Diagnosis POC GLUCOSE Routine 06/09/2019 4:35 Results for this PM [employer] procedure are i n the results section. POC GLUCOSE Routine 06/09/2019 12:23 Results for this PM [employer] procedure are i n the results section. POC GLUCOSE Routine 06/09/2019 11:19 Results for this AM [employer] procedure are i n the results section. POC GLUCOSE Routine 06/09/2019 8:08 Results for this AM [employer] procedure are i n the results section. POC GLUCOSE Routine 06/09/2019 5:00 Results for this AM [employer] procedure are i n the results section. HC COMPLETE BLD COUNT Routine 06/09/2019 4:45 Re sults for this W/AUTO DIFF AM [employer] procedure are i n the results section. PARTIAL THROMBOPLASTIN Routine 06/09/2019 4:45 R esults for this TIME (PTT) AM [employer] procedure are i n the results section. POC GLUCOSE Routine 06/09/2019 2:07 Results for this AM [employer] procedure are i n the results section. POC GLUCOSE Routine 06/08/2019 8:30 Results for this PM [employer] procedure are i n the results section. POC GLUCOSE Routine 06/08/2019 5:13 Results for this PM [employer] procedure are i n the results section. HEMODIALYSIS Routine 06/08/2019 3:06 PM [employer] XR CHEST 1 VW PORTABLE Routine 06/08/2019 12:32 R esults for this PM [employer] procedure are i n the results section. POC GLUCOSE Routine 06/08/2019 12:07 Results for this PM [employer] procedure are i n the results section. POC GLUCOSE Routine 06/08/2019 7:38 Results for this AM [employer] procedure are i n the results section. ESTIMATED GFR Routine 06/08/2019 5:50 Results fo r this AM [employer] procedure are i n the results section. PHOSPHORUS LEVEL Routine 06/08/2019 5:50 Results for this AM [employer] procedure are i n the results section. MAGNESIUM LEVEL Routine 06/08/2019 5:50 Results for this AM [employer] procedure are i n the results section. BASIC METABOLIC PANEL Routine 06/08/2019 5:50 Re sults for this AM [employer] procedure are i n the results section. HC COMPLETE BLD COUNT Routine 06/08/2019 5:50 Re sults for this W/AUTO DIFF AM [employer] procedure are i n the results section. PARTIAL THROMBOPLASTIN Routine 06/08/2019 5:50 R esults for this TIME (PTT) AM [employer] procedure are i n the results section. POC GLUCOSE Routine 06/08/2019 4:26 Results for this AM [employer] procedure are i n the results section. POC GLUCOSE Routine 06/08/2019 12:18 Results for this AM [employer] procedure are i n the results section. POC GLUCOSE Routine 06/07/2019 8:16 Results for this PM [employer] procedure are i n the results section. POC GLUCOSE Routine 06/07/2019 4:22 Results for this PM [employer] procedure are i n the results section. POC GLUCOSE Routine 06/07/2019 3:50 Results for this PM [employer] procedure are i n the results section. POC GLUCOSE Routine 06/07/2019 11:39 Results for this AM [employer] procedure are i n the results section. ARTERIAL BLOOD GAS Routine 06/07/2019 11:34 Resul ts for this AM [employer] procedure are i n the results section. HEMODIALYSIS Routine 06/07/2019 10:44 AM [employer] POC GLUCOSE Routine 06/07/2019 7:42 Results for this AM [employer] procedure are i n the results section. US DUPLEX VENOUS LOWER Routine 06/07/2019 6:20 R esults for this EXTREMITY BILATERAL AM [employer] procedur e are in the results section. POC GLUCOSE Routine 06/07/2019 4:27 Results for this AM [employer] procedure are i n the results section. CBC HEMOGRAM Routine 06/07/2019 3:50 Results for this AM [employer] procedure are i n the results section. PARTIAL THROMBOPLASTIN Routine 06/07/2019 3:50 R esults for this TIME (PTT) AM [employer] procedure are i n the results section. POC GLUCOSE Routine 06/07/2019 12:19 Results for this AM [employer] procedure are i n the results section. POC GLUCOSE Routine 06/06/2019 8:19 Results for this PM [employer] procedure are i n the results section. POC GLUCOSE Routine 06/06/2019 6:13 Results for this PM [employer] procedure are i n the results section. OCCULT BLOOD, STOOL Routine 06/06/2019 5:50 Resu lts for this PM [employer] procedure are i n the results section. POC GLUCOSE Routine 06/06/2019 2:46 Results for this PM [employer] procedure are i n the results section. POC GLUCOSE Routine 06/06/2019 12:21 Results for this PM [employer] procedure are i n the results section. POC GLUCOSE Routine 06/06/2019 8:00 Results for this AM [employer] procedure are i n the results section. POC GLUCOSE Routine 06/06/2019 4:29 Results for this AM [employer] procedure are i n the results section. ESTIMATED GFR Routine 06/06/2019 3:35 Results fo r this AM [employer] procedure are i n the results section. PARTIAL THROMBOPLASTIN Routine 06/06/2019 3:35 R esults for this TIME (PTT) AM [employer] procedure are i n the results section. COMPREHENSIVE METABOLIC Routine 06/06/2019 3:35 Results for this PANEL AM [employer] procedure are i n the results section. PHOSPHORUS LEVEL Routine 06/06/2019 3:35 Results for this AM [employer] procedure are i n the results section. MAGNESIUM LEVEL Routine 06/06/2019 3:35 Results for this AM [employer] procedure are i n the results section. HC COMPLETE BLD COUNT Routine 06/06/2019 3:35 Re sults for this W/AUTO DIFF AM [employer] procedure are i n the results section. POC GLUCOSE Routine 06/06/2019 12:25 Results for this AM [employer] procedure are i n the results section. ARTERIAL BLOOD GAS STAT 06/05/2019 9:42 Resul ts for this PM [employer] procedure are i n the results section. POC GLUCOSE Routine 06/05/2019 8:16 Results for this PM [employer] procedure are i n the results section. POC GLUCOSE Routine 06/05/2019 5:20 Results for this PM [employer] procedure are i n the results section. POC GLUCOSE Routine 06/05/2019 4:15 Results for this PM [employer] procedure are i n the results section. POC GLUCOSE Routine 06/05/2019 12:10 Results for this PM [employer] procedure are i n the results section. XR CHEST 1 VW PORTABLE Routine 06/05/2019 8:59 R esults for this AM [employer] procedure are i n the results section. POC GLUCOSE Routine 06/05/2019 8:18 Results for this AM [employer] procedure are i n the results section. ESTIMATED GFR Routine 06/05/2019 4:20 Results fo r this AM [employer] procedure are i n the results section. PARTIAL THROMBOPLASTIN Routine 06/05/2019 4:20 R esults for this TIME (PTT) AM [employer] procedure are i n the results section. COMPREHENSIVE METABOLIC Routine 06/05/2019 4:20 Results for this PANEL AM [employer] procedure are i n the results section. PHOSPHORUS LEVEL Routine 06/05/2019 4:20 Results for this AM [employer] procedure are i n the results section. MAGNESIUM LEVEL Routine 06/05/2019 4:20 Results for this AM [employer] procedure are i n the results section. HC COMPLETE BLD COUNT Routine 06/05/2019 4:20 Re sults for this W/AUTO DIFF AM [employer] procedure are i n the results section. POC GLUCOSE Routine 06/05/2019 4:18 Results for this AM [employer] procedure are i n the results section. POC GLUCOSE Routine 06/05/2019 12:57 Results for this AM [employer] procedure are i n the results section. TRANSFUSE RED BLOOD Routine 06/04/2019 10:32 CELLS PM [employer] TRANSFUSE RED BLOOD Routine 06/04/2019 9:21 CELLS PM [employer] POC GLUCOSE Routine 06/04/2019 8:57 Results for this PM [employer] procedure are i n the results section. POC GLUCOSE Routine 06/04/2019 4:48 Results for this PM [employer] procedure are i n the results section. PARTIAL THROMBOPLASTIN Timed 06/04/2019 3:15 R esults for this TIME (PTT) PM [employer] procedure are i n the results section. POC GLUCOSE Routine 06/04/2019 12:13 Results for this PM [employer] procedure are i n the results section. XR CHEST 1 VW PORTABLE Routine 06/04/2019 10:45 R esults for this AM [employer] procedure are i n the results section. CBC HEMOGRAM Routine 06/04/2019 8:44 Results for this AM [employer] procedure are i n the results section. POC GLUCOSE Routine 06/04/2019 7:39 Results for this AM [employer] procedure are i n the results section. HEMODIALYSIS Routine 06/04/2019 7:32 AM [employer] SMEAR REVIEW Routine 06/04/2019 5:50 Results for this AM [employer] procedure are i n the results section. ESTIMATED GFR Routine 06/04/2019 5:50 Results fo r this AM [employer] procedure are i n the results section. PARTIAL THROMBOPLASTIN Routine 06/04/2019 5:50 R esults for this TIME (PTT) AM [employer] procedure are i n the results section. COMPREHENSIVE METABOLIC Routine 06/04/2019 5:50 Results for this PANEL AM [employer] procedure are i n the results section. PHOSPHORUS LEVEL Routine 06/04/2019 5:50 Results for this AM [employer] procedure are i n the results section. MAGNESIUM LEVEL Routine 06/04/2019 5:50 Results for this AM [employer] procedure are i n the results section. HC COMPLETE BLD COUNT Routine 06/04/2019 5:50 Re sults for this W/AUTO DIFF AM [employer] procedure are i n the results section. POC GLUCOSE Routine 06/04/2019 4:19 Results for this AM [employer] procedure are i n the results section. POC GLUCOSE Routine 06/04/2019 12:27 Results for this AM [employer] procedure are i n the results section. ANTI XA, UNFRACTIONATED Routine 06/03/2019 11:20 Results for this PM [employer] procedure are i n the results section. CBC HEMOGRAM Routine 06/03/2019 11:20 Results for this PM [employer] procedure are i n the results section. PARTIAL THROMBOPLASTIN Routine 06/03/2019 11:20 R esults for this TIME (PTT) PM [employer] procedure are i n the results section. PROTHROMBIN TIME WITH Routine 06/03/2019 11:20 Re sults for this INR PM [employer] procedure are i n the results section. POC GLUCOSE Routine 06/03/2019 8:05 Results for this PM [employer] procedure are i n the results section. CT ANGIOGRAM PE CHEST STAT 06/03/2019 7:51 Re sults for this PM [employer] procedure are i n the results section. POC GLUCOSE Routine 06/03/2019 4:44 Results for this PM [employer] procedure are i n the results section. ECG 12-LEAD STAT 06/03/2019 2:44 Results for this PM [employer] procedure are i n the results section. D-DIMER Routine 06/03/2019 2:43 Results for this PM [employer] procedure are i n the results section. XR CHEST 1 VW PORTABLE STAT 06/03/2019 2:38 R esults for this PM [employer] procedure are i n the results section. RESPIRATORY PATHOGEN Routine 06/03/2019 2:36 Res ults for this PANEL PM [employer] procedure are i n the results section. ARTERIAL BLOOD GAS STAT 06/03/2019 1:48 Resul ts for this PM [employer] procedure are i n the results section. POC GLUCOSE Routine 06/03/2019 12:18 Results for this PM [employer] procedure are i n the results section. XR CHEST 1 VW PORTABLE Timed 06/03/2019 10:58 R esults for this AM [employer] procedure are i n the results section. POC GLUCOSE Routine 06/03/2019 8:05 Results for this AM [employer] procedure are i n the results section. POC GLUCOSE Routine 06/03/2019 6:16 Results for this AM [employer] procedure are i n the results section. ESTIMATED GFR Routine 06/03/2019 3:30 Results fo r this AM [employer] procedure are i n the results section. BASIC METABOLIC PANEL Routine 06/03/2019 3:30 Re sults for this AM [employer] procedure are i n the results section. HC COMPLETE BLD COUNT Routine 06/03/2019 3:30 Re sults for this W/AUTO DIFF AM [employer] procedure are i n the results section. POC GLUCOSE Routine 06/03/2019 3:03 Results for this AM [employer] procedure are i n the results section. POC GLUCOSE Routine 06/02/2019 10:08 Results for this PM [employer] procedure are i n the results section. POC GLUCOSE Routine 06/02/2019 8:23 Results for this PM [employer] procedure are i n the results section. POC GLUCOSE Routine 06/02/2019 4:39 Results for this PM [employer] procedure are i n the results section. ARTERIAL BLOOD GAS STAT 06/02/2019 3:25 Resul ts for this PM [employer] procedure are i n the results section. XR CHEST 1 VW PORTABLE STAT 06/02/2019 3:20 R esults for this PM [employer] procedure are i n the results section. TRANSFUSE RED BLOOD Routine 06/02/2019 3:17 CELLS PM [employer] POC GLUCOSE Routine 06/02/2019 1:34 Results for this PM [employer] procedure are i n the results section. PREPARE RBC Routine 06/02/2019 8:34 Results for this AM [employer] procedure are i n the results section. PREPARE RBC Routine 06/02/2019 8:34 Results for this AM [employer] procedure are i n the results section. TYPE AND SCREEN Routine 06/02/2019 8:34 Results for this AM [employer] procedure are i n the results section. CBC HEMOGRAM Routine 06/02/2019 5:20 Results for this AM [employer] procedure are i n the results section. POC GLUCOSE Routine 06/01/2019 10:56 Results for this PM [employer] procedure are i n the results section. POC GLUCOSE Routine 06/01/2019 9:44 Results for this PM [employer] procedure are i n the results section. HEMODIALYSIS Routine 06/01/2019 5:08 PM [employer] POC GLUCOSE Routine 06/01/2019 5:04 Results for this PM [employer] procedure are i n the results section. CV PYP SCAN FOR CARDIAC Routine 06/01/2019 3:12 Results for this AMYLOIDOSIS PM [employer] procedure are i n the results section. POC GLUCOSE Routine 06/01/2019 12:04 Results for this PM [employer] procedure are i n the results section. ECG 12-LEAD STAT 06/01/2019 11:32 Results for this AM [employer] procedure are i n the results section. XR CHEST 1 VW PORTABLE STAT 06/01/2019 11:20 R esults for this AM [employer] procedure are i n the results section. POC GLUCOSE Routine 06/01/2019 7:50 Results for this AM [employer] procedure are i n the results section. ESTIMATED GFR Routine 06/01/2019 5:20 Results fo r this AM [employer] procedure are i n the results section. BASIC METABOLIC PANEL Routine 06/01/2019 5:20 Re sults for this AM [employer] procedure are i n the results section. KAPPA LAMBDA FREE LIGHT Routine 06/01/2019 5:20 Results for this CHAIN WITH RATIO AM [employer] procedure a re in the results section. POC GLUCOSE Routine 05/31/2019 9:16 Results for this PM [employer] procedure are i n the results section. ECG 12-LEAD STAT 05/31/2019 5:44 Results for this PM [employer] procedure are i n the results section. ESTIMATED GFR STAT 05/31/2019 5:33 Results fo r this PM [employer] procedure are i n the results section. MAGNESIUM LEVEL STAT 05/31/2019 5:33 Results for this PM [employer] procedure are i n the results section. BASIC METABOLIC PANEL STAT 05/31/2019 5:33 Re sults for this PM [employer] procedure are i n the results section. POC GLUCOSE Routine 05/31/2019 4:58 Results for this PM [employer] procedure are i n the results section. CT CARDIAC CALCIUM Routine 05/31/2019 3:35 Resul ts for this SCORE PM [employer] procedure are i n the results section. POC GLUCOSE Routine 05/31/2019 12:29 Results for this PM [employer] procedure are i n the results section. HEMODIALYSIS Routine 05/31/2019 9:45 AM [employer] POC GLUCOSE Routine 05/31/2019 7:59 Results for this AM [employer] procedure are i n the results section. CBC HEMOGRAM Routine 05/31/2019 4:10 Results for this AM [employer] procedure are i n the results section. T3, FREE Routine 05/31/2019 4:10 Results for this AM [employer] procedure are i n the results section. ESTIMATED GFR Routine 05/31/2019 12:00 Results fo r this AM [employer] procedure are i n the results section. PHOSPHORUS LEVEL Routine 05/31/2019 12:00 Results for this AM [employer] procedure are i n the results section. IONIZED CALCIUM Routine 05/31/2019 12:00 Results for this AM [employer] procedure are i n the results section. MAGNESIUM LEVEL Routine 05/31/2019 12:00 Results for this AM [employer] procedure are i n the results section. BASIC METABOLIC PANEL Routine 05/31/2019 12:00 Re sults for this AM [employer] procedure are i n the results section. POC GLUCOSE Routine 05/30/2019 8:56 Results for this PM [employer] procedure are i n the results section. TTE COMPLETE, WO Routine 05/30/2019 7:00 Results for this CONTRAST, W DOPPLER PM [employer] procedur e are in ([id number]) the results section. POC GLUCOSE Routine 05/30/2019 5:24 Results for this PM [employer] procedure are i n the results section. US DUPLEX ARTERIAL STAT 05/30/2019 5:00 Resul ts for this UPPER EXTREMITY PM [employer] procedure ar e in BILATERAL the results section. US ANKLE BRACHIAL INDEX Routine 05/30/2019 3:30 Results for this PM [employer] procedure are i n the results section. US DUPLEX ARTERIAL Routine 05/30/2019 3:30 Resul ts for this LOWER EXTREMITY PM [employer] procedure ar e in BILATERAL the results section. POC GLUCOSE Routine 05/30/2019 11:29 Results for this AM [employer] procedure are i n the results section. ARTERIAL BLOOD GAS Routine 05/30/2019 11:24 Resul ts for this AM [employer] procedure are i n the results section. LDH Routine 05/30/2019 11:05 Results for this AM [employer] procedure are i n the results section. POC GLUCOSE Routine 05/30/2019 7:30 Results for this AM [employer] procedure are i n the results section. XR CHEST 1 VW PORTABLE Routine 05/30/2019 4:10 R esults for this AM [employer] procedure are i n the results section. POC GLUCOSE Routine 05/30/2019 3:58 Results for this AM [employer] procedure are i n the results section. ESTIMATED GFR Routine 05/30/2019 12:50 Results fo r this AM [employer] procedure are i n the results section. PHOSPHORUS LEVEL Routine 05/30/2019 12:50 Results for this AM [employer] procedure are i n the results section. MAGNESIUM LEVEL Routine 05/30/2019 12:50 Results for this AM [employer] procedure are i n the results section. IONIZED CALCIUM Routine 05/30/2019 12:50 Results for this AM [employer] procedure are i n the results section. BASIC METABOLIC PANEL Routine 05/30/2019 12:50 Re sults for this AM [employer] procedure are i n the results section. T4, FREE Routine 05/30/2019 12:50 Results for this AM [employer] procedure are i n the results section. THYROID STIMULATING Routine 05/30/2019 12:50 Resu lts for this HORMONE AM [employer] procedure are i n the results section. URIC ACID LEVEL Routine 05/30/2019 12:50 Results for this AM [employer] procedure are i n the results section. MANUAL DIFFERENTIAL Routine 05/30/2019 12:20 Resu lts for this AM [employer] procedure are i n the results section. CBC WITH PLATELET AND Routine 05/30/2019 12:20 Re sults for this DIFFERENTIAL AM [employer] procedure are i n the results section. POC GLUCOSE Routine 05/29/2019 11:45 Results for this PM [employer] procedure are i n the results section. POC GLUCOSE Routine 05/29/2019 7:47 Results for this PM [employer] procedure are i n the results section. POC GLUCOSE Routine 05/29/2019 4:16 Results for this PM [employer] procedure are i n the results section. POC GLUCOSE Routine 05/29/2019 11:23 Results for this AM [employer] procedure are i n the results section. HEPARIN PF4 ANTIBODY Routine 05/29/2019 9:41 Res ults for this (IGG) AM [employer] procedure are i n the results section. POC GLUCOSE Routine 05/29/2019 7:36 Results for this AM [employer] procedure are i n the results section. XR CHEST 1 VW PORTABLE Routine 05/29/2019 4:02 R esults for this AM [employer] procedure are i n the results section. POC GLUCOSE Routine 05/29/2019 4:00 Results for this AM [employer] procedure are i n the results section. ECG 12-LEAD Routine 05/29/2019 3:42 Results for this AM [employer] procedure are i n the results section. HC COMPLETE BLD COUNT Routine 05/29/2019 1:00 Re sults for this W/AUTO DIFF AM [employer] procedure are i n the results section. ESTIMATED GFR Routine 05/29/2019 12:33 Results fo r this AM [employer] procedure are i n the results section. PHOSPHORUS LEVEL Routine 05/29/2019 12:33 Results for this AM [employer] procedure are i n the results section. MAGNESIUM LEVEL Routine 05/29/2019 12:33 Results for this AM [employer] procedure are i n the results section. IONIZED CALCIUM Routine 05/29/2019 12:33 Results for this AM [employer] procedure are i n the results section. BASIC METABOLIC PANEL Routine 05/29/2019 12:33 Re sults for this AM [employer] procedure are i n the results section. HC COMPLETE BLD COUNT Routine 05/29/2019 12:00 Re sults for this W/AUTO DIFF AM [employer] procedure are i n the results section. POC GLUCOSE Routine 05/28/2019 11:52 Results for this PM [employer] procedure are i n the results section. POC GLUCOSE Routine 05/28/2019 8:25 Results for this PM [employer] procedure are i n the results section. POC GLUCOSE Routine 05/28/2019 4:33 Results for this PM [employer] procedure are i n the results section. HEPATITIS B SURFACE Routine 05/28/2019 1:50 Resu lts for this ANTIGEN PM [employer] procedure are i n the results section. POC GLUCOSE Routine 05/28/2019 11:30 Results for this AM [employer] procedure are i n the results section. HEMODIALYSIS Routine 05/28/2019 11:17 AM [employer] HC COMPLETE BLD COUNT Routine 05/28/2019 10:05 Re sults for this W/AUTO DIFF AM [employer] procedure are i n the results section. XR CHEST 1 VW PORTABLE Routine 05/28/2019 10:02 R esults for this AM [employer] procedure are i n the results section. CONSULT CARDIAC REHAB Routine 05/28/2019 9:42 PHASE 1 AM [employer] ECG 12-LEAD STAT 05/28/2019 9:42 Results for this AM [employer] procedure are i n the results section. HEMOGLOBIN A1C Routine 05/28/2019 9:41 Results f or this AM [employer] procedure are i n the results section. ESTIMATED GFR Routine 05/28/2019 9:41 Results fo r this AM [employer] procedure are i n the results section. TYPE AND SCREEN Routine 05/28/2019 9:41 Results for this AM [employer] procedure are i n the results section. PARTIAL THROMBOPLASTIN Routine 05/28/2019 9:41 R esults for this TIME (PTT) AM [employer] procedure are i n the results section. PROTHROMBIN TIME WITH Routine 05/28/2019 9:41 Re sults for this INR AM [employer] procedure are i n the results section. IONIZED CALCIUM Routine 05/28/2019 9:41 Results for this AM [employer] procedure are i n the results section. PHOSPHORUS LEVEL Routine 05/28/2019 9:41 Results for this AM [employer] procedure are i n the results section. MAGNESIUM LEVEL Routine 05/28/2019 9:41 Results for this AM [employer] procedure are i n the results section. BASIC METABOLIC PANEL Routine 05/28/2019 9:41 Re sults for this AM [employer] procedure are i n the results section. POC GLUCOSE Routine 05/28/2019 9:39 Results for this AM [employer] procedure are i n the results section. after 10/08/2018 Results POC glucose (06/09/2019 4:35 PM [employer])Only the most recent of74 resultswithin the time period is included. Pathologist Sig nature POC glucose 238 (H) 65 - 99 mg/dL [facility] Comment: HOSPITAL Noodle Catalyst Maker Name: Veena Ortiz Device ID: [id number] Chartable: [facility] Notified RN Specimen Performing Organization Address City/State/Zipcode Phone Number [facility] DEPARTMENT OF PATHOLOGY AND [address] [place], [place] [address] GENOMIC MEDICINE [address] [address] Partial thromboplastin time, activated (06/09/2019 4:45 AM [employer])Only the most recent of9 resultswithin the time period is included. PTT 52.8 (H) 23.0 - 36.0 [facility] Comment: sec HOSPITAL PTT therapeutic range for unfractionated heparin is 61.0-112.0 seconds which corresponds to Anti-Xa 0.3-0.7 U/ml. Specimen Blood Performing Organization Address [facility] Phone Number [facility] DEPARTMENT OF PATHOLOGY AND [address] [place], [place] [address] GENOMIC MEDICINE [facility] [address] [place] [address] CBC with platelet and differential (06/09/2019 4:45 AM [employer])Only the most recent of10 resultswithin the time period is included. WBC 11.21 (H) 4.50 - 11.00 [facility] k/uL HOSPITAL RBC 3.04 (L) 4.40 - 6.00 [facility] m/[facility] HGB 8.5 (L) 14.0 - 18.0 [facility] g/dL [facility] HCT 29.7 (L) 41.0 - 51.0 % [facility] MCV 97.7 82.0 - 100.0 [facility] MCH 28.0 27.0 - 34.0 pg [facility] MCHC 28.6 (L) 31.0 - 37.0 [facility] RDW - SD 63.7 (H) 37.0 - 55.0 fL [facility] MPV 12.5 8.8 - 13.2 fL [facility] Platelet count 127 (L) 150 - 400 k/uL [facility] Nucleated RBC 0.00 /100 WBC [facility] Neutrophils 78.6 (H) 39.0 - 69.0 % [facility] Lymphocytes 8.8 (L) 25.0 - 45.0 % [facility] Monocytes 10.9 (H) 0.0 - 10.0 % [facility] Eosinophils 1.1 0.0 - 5.0 % [facility] Basophils 0.2 0.0 - 1.0 % [facility] Immature granulocytes 0.4Comment: 0.0 - 1.0 % [facility] "Immature HOSPITAL granulocytes" (promyelocytes , myelocytes, metamyelocytes ) Specimen Blood Performing Organization Address City/[facility] Phone Number [facility] DEPARTMENT OF PATHOLOGY AND [address] [place], [place] [address] GENOMIC MEDICINE [facility] [address] [place] [address] XR Chest 1 Vw Portable (06/08/2019 12:32 PM [employer])Only the most recent of10 resultswithin the time period is included. Specimen Narrative Performed At EXAMINATION: XR CHEST 1 VW PORTABLE RADIANT CLINICAL HISTORY: Abnormal exam COMPARISON: Multiple prior chest radiographs, most rec ently dated 06/05/2019. IMPRESSION: Technique: Single portable chest radiogr aph. Lines/tube: Unchanged tracheostomy and r ight-sided AICD. Cardiomediastinum: Unchanged cardiomegal y and aortic calcifications Lungs: Mildly improved retrocardiac opacity. Increased perihilar opacities bilaterally, which may be in part due to sandra tral venous congestion versus worsening infiltrate. Left lower lob e platelike atelectasis. No pleural effusion. No p neumothorax. Bones: Regional osseous structures appea r stable. [id number] Procedure Note [facility], Radiology Results Incoming - 06/08/2019 12:48 PM [employer] EXAMINATION: XR CHEST 1 VW PORTABLE CLINICAL HISTORY: Abnormal exam COMPARISON: Multiple prior chest radiogr aphs, most recently dated 06/05/2019. IMPRESSION: Technique: Single portable chest radiogr aph. Lines/tube: Unchanged tracheostomy and r ight-sided AICD. Cardiomediastinum: Unchanged cardiomegal y and aortic calcifications Lungs: Mildly improved retrocardiac opac ity. Increased perihilar opacities bilaterally, which may be in part due to central venous congestion versus worsening infiltrate. Left lower lobe platelike atelectasis. No pleural effusion. No pneumothorax. Bones: Regional osseous structures appea r stable. [id number] Performing Organization Address City/State/Zipcode Phone Number [facility] [address] [place] [address] Estimated GFR (06/08/2019 5:50 AM [employer])Only the most recent of11 resultswithin the time period is included. Estimated GFR 14 (A) mL/min/1.73 [facility] Comment: m2 HOSPITAL Catergory Units Interpretation G1 >=90 Normal or high G2 60-89 Mildly decreased G3a 45-59 Mildly to moderately decreas ed G3b 30-44 Moderately to severely decre ased G4 15-29 Severely decreased G5 <15 Kidney failure The eGFR was calculated using the Chronic Kidney Disea se Epidemiology Collaboration (CKD-EPI) equation. Interpretation is based on recommendations of the National Kidney Foundation-Kidney Disease Outcomes Jai lity Initiative (NKF-KDOQI) published in 2014. Specimen Plasma specimen Performing Organization Address [facility] Phone Number [facility] DEPARTMENT OF PATHOLOGY AND [address] [place] [phone] Phosphorus level (06/08/2019 5:50 AM [employer])Only the most recent of8 resultswithin the time period is included. Pathologist Sig [facility] Phosphorus 2.5 2.4 - 4.5 mg/dL [facility] L Specimen Plasma specimen Performing Organization Address [facility] Phone Number [facility] DEPARTMENT OF PATHOLOGY AND [address] [place] [address] [address] Magnesium level (06/08/2019 5:50 AM [employer])Only the most recent of9 resultswithin the time period is included. Pathologist Sig [facility] Magnesium 2.3 1.6 - 2.4 mg/dL [facility] Specimen Plasma specimen Performing Organization Address [facility] Phone Number [facility] DEPARTMENT OF PATHOLOGY AND [address] [place] [address] [phone] [address] Basic metabolic panel (06/08/2019 5:50 AM [employer])Only the most recent of8 results within the time period is included. Pathologist Sig nature Sodium 135 135 - 148 mEq/L [facility] Potassium 4.2 3.5 - 5.0 mEq/L [facility] Chloride 97 (L) 98 - 112 mEq/L [facility] CO2 26 24 - 31 mEq/L [facility] Anion gap 12@ANIO 7 - 15 mEq/L [facility] BUN 31 (H) 8 - 23 mg/dL [facility] Creatinine 4.21 (H) 0.70 - 1.20 mg/dL [facility] Glucose 117 (H) 65 - 99 mg/dL [facility] Calcium 9.0 8.8 - 10.2 mg/dL [facility] Specimen Plasma specimen Performing Organization Address City/[facility] Cent[facility]ode Phone Number [facility] DEPARTMENT OF PATHOLOGY AND [address] [place] [address] Arterial blood gas (06/07/2019 11:34 AM [employer])Only the most recent of5 results within the time period is included. [facility] Sig nature pH, arterial 7.38 7.35 - 7.45 [facility] pCO2, arterial 50 (H) 35 - 45 mmHg [facility] pO2, arterial 76 (L) 80 - 90 mmHg [facility] Bicarbonate, 28.8 (H) 21.0 - 28.0 [facility] mmol/L [facility] Base excess, 4 (H) -2 - 2 mEq/L [facility] O2 saturation, 95 95 - 100 % [facility] Specimen Blood Performing Organization Address City/[facility] Cent[facility]ode Phone Number [facility] DEPARTMENT OF PATHOLOGY AND [address] [place] [address] Us duplex venous lower extremity (06/07/2019 6:20 AM [employer]) Specimen Narrative Performed At [facility] V[facility] U l[facility]ound Laboratory Lower Extr emity Venous Report [address] [place] [address] Pat.Name: DILLON PEREZ Pat.ID: [id number] .Date: 06/07/2019 Refer.MD: KIMBERLY KHANNA MD Exam Time: 4:51:00 AM Study Type:L E Venous Age: 1001/16/1940,79Y Sex: MALE Sonogrphr: Jamal Lira, BA, BS, RDMS, RVT Pat. Stat.:Inpatient Room: [address] Tape V ol: ZENAIDA, CPT - 4: [address]359 Echo Rhea nt ID:[id number] Order ID: [id number] Reason for Study:Evaluate for DVT. Patie nt has history of pulmonary embolism, end stage renal disease, diabe donell, hypertension. Procedures: Colorflow, Grayscale/2D, Pul sed wave Doppler Race: B SUMMARY: * Normal Reflux Criteria: < 0.5 second s * Abnormal Reflux Criteria: > or equal to 0.5 seconds DUPLEX SCAN OBSERVATIONS Deep Veins Superficial Veins Right Left Right Left GSV (prox) Normal Normal CFV Normal Normal (above knee) Femoral Normal Normal GSV (dist) Normal Normal Profunda Normal Normal (below knee) Popliteal Normal Normal PT (prox) Normal Normal SSV Normal Nor mal PT (dist) Normal Normal Peroneal Normal Normal Gastrocs Normal Normal Soleal Partial Normal RIGHT: The soleal vein is dilated, par tially compressible, and seen with echogenic material within the lumen . Color flow and Doppler signals are present. There is normal com pressibility with no evidence of echogenic material noted within the l umen of the remaining visualized veins. There is a heterogeneo us nonvascular structure seen in the medial aspect of the upper thigh, medial to the femoral vessels, measuring approximately 12.4x6. 2x,2.34cm LEFT: There is normal compressibil ity with no evidence of echogenic material noted within the lume n of the visualized veins.Colorflow and Doppler signals are normal. PRELIMINARY FINDINGS 1. Acute appearing partial deep venous t hrombosis of the right soleal vein. 2. Heterogeneous nonvascular structure s een in the medial aspect of the upper thigh, medial to the femoral v essels, measuring approximately 12.4x6.2x,2.34cm 3. Technically difficult study due to brenda arciniega's difficulty tolerating compressions. Preliminary findings communicated to SHAI Rogel at 6:35AM on 06/07/2019 PHYSICIAN INTERPRETATION Venous examination of the both lower ext remities demonstrated acute partial deep venous thrombosis of the ri ght soleal vein. Heterogeneous nonvascular structure see n in the medial aspect of the upper thigh, medial to the femoral vesse ls, measuring approximately 12.4x6.2x,2.34cm FINDINGS: Signed 06/07/2019 08:10 AM Marcellus Yung MD, RPVI Procedure Note Interface, Radiology Results In - 2019 8:11 AM [facility] Vascular Ultrasound Laboratory Lower Extremity Veno us Report [id number] [facility], [facility] [address] , [place] [address] Pat.Name: DILLON PEREZ Pat.I D: [id number] .Date: 06/07/2019 Refer .MD: KIMBERLY KHANNA MD Exam Time: 4:51:00 AM Study Type:LE Venous Age: 1001/16/1940,79Y Sex: MALE Sonogrphr: Jamal Lira, BA, BS, RDMS, RVT Pat. Stat.:Inpatient Room: [address] Vol: ZENAIDA, CPT - 4: [address] Echo Event ID:[id number] Order ID: [id number] Reason for Study:Evaluate for DVT. Cata nt has history of pulmonary embolism, end stage renal disease, diabe donell, hypertension. Procedures: Colorflow, Grayscale/2D, Pul sed wave Doppler Race: B SUMMARY: * Normal Reflux Criteria: < 0.5 seconds * Abnormal Reflux Criteria: > or equal to 0.5 seconds DUPLEX SCAN OBSERVATIONS Deep Veins Superficial Veins Right Left Right Left GSV (prox) Normal Normal CFV Normal Normal (above knee) Femoral Normal Normal GSV (dist) Normal Normal Profunda Normal Normal (below knee) Popliteal Normal Normal PT (prox) Normal Normal SSV Normal Norm al PT (dist) Normal Normal Peroneal Normal Normal Gastrocs Normal Normal Soleal Partial Normal RIGHT: The soleal vein is dilated, part ially compressible, and seen with echogenic material within the lumen . Color flow and Doppler signals are present. There is normal com pressibility with no evidence of echogenic material noted within the l umen of the remaining visualized veins. There is a heterogeneo us nonvascular structure seen in the medial aspect of the upper thigh, medial to the femoral vessels, measuring approximately 12.4x6. 2x,2.34cm LEFT: There is normal compressibilit y with no evidence of echogenic material noted within the lume n of the visualized veins.Colorflow and Doppler signals are normal. PRELIMINARY FINDINGS 1. Acute appearing partial deep venous t hrombosis of the right soleal vein. 2. Heterogeneous nonvascular structure s een in the medial aspect of the upper thigh, medial to the femoral v essels, measuring approximately 12.4x6.2x,2.34cm 3. Technically difficult study due to brenda arciniega's difficulty tolerating compressions. Preliminary findings communicated to SHAI Rogel at 6:35AM on 06/07/2019 PHYSICIAN INTERPRETATION Venous examination of the both lower ext remities demonstrated acute partial deep venous thrombosis of the ri ght soleal vein. Heterogeneous nonvascular structure see n in the medial aspect of the upper thigh, medial to the femoral vesse ls, measuring approximately 12.4x6.2x,2.34cm FINDINGS: Signed 06/07/2019 08:10 AM Marcellus Yung MD, RPVI Performing Organization Address City/State/Zipcode Phone Number [facility] [address] [place] [address] CBC hemogram (06/07/2019 3:50 AM [employer])Only the most recent of5 resultswithin the time period is included. [facility] Sig nature WBC 16.21 (H) 4.50 - 11.00 k/uL [facility] RBC 3.35 (L) 4.40 - 6.00 m/uL [facility] HGB 9.6 (L) 14.0 - 18.0 g/dL [facility] HCT 32.4 (L) 41.0 - 51.0 % [facility] MCV 96.7 82.0 - 100.0 fL [facility] MCH 28.7 27.0 - 34.0 pg [facility] MCHC 29.6 (L) 31.0 - 37.0 g/dL [facility] RDW - SD 64.8 (H) 37.0 - 55.0 fL [facility] MPV 12.3 8.8 - 13.2 [facility] Platelet count 132 (L) 150 - 400 k/uL [facility] Nucleated RBC 0.00 /100 WBC [facility] Specimen Blood Performing Organization Address City/[facility]ode Phone Number [facility] DEPARTMENT OF PATHOLOGY AND [address] [place] [address] [phone] [address] Occult blood, stool (06/06/2019 5:50 PM [employer]) [facility] Occult blood, Negative for occult blood. [facility] stool Comment: HOSPITAL Specimen Information Specimen Source: Stool Specimen Site: Nonpreserved Specimen Stool - Nonpreserved Performing Organization Address [facility] Phone Number [facility] DEPARTMENT OF PATHOLOGY AND [address] [place] [phone] [place] [phone] Comprehensive metabolic panel (06/06/2019 3:35 AM [employer]AT BUILDER)Only the most recent of3 resultswithin the time period is included. [facility] Sodium 136 135 - 148 [facility] mEq/L [facility] Potassium 4.7 3.5 - 5.0 [facility] mEq/L [facility] Chloride 96 (L) 98 - 112 mEq/L [facility] CO2 25 24 - 31 mEq/L [facility] Anion gap 15@ANIO 7 - 15 mEq/L [facility] BUN 38 (H) 8 - 23 mg/dL [facility] Creatinine 4.73 (H) 0.70 - 1.20 [facility] mg/dL HOSPITAL Glucose 77 65 - 99 mg/dL [facility] Calcium 8.7 (L) 8.8 - 10.2 [facility] mg/dL [facility] Protein 6.4 6.3 - 8.3 g/dL [facility] Comment: HOSPITAL Szcqjbr5710.6-7.0 g/dL 1 ywvp1206.4-7.6 g/dL 7 months-3lvfg360.1-7.3 g/dL 1-2 dagbt644.6-7.5 g/dL >3 gudon601.0-8.0 g/dL 18-3101401.3-8.3 g/dL Albumin 2.4 (L) 3.5 - 5.0 g/dL [facility] A/G ratio 0.6 (L) 0.7 - 3.8 [facility] Alkaline phosphatase 77 40 - 129 U/L [facility] AST 10 10 - 50 U/L [facility] ALT 15 5 - 50 U/L [facility] Total bilirubin 0.5 0.0 - 1.2 [facility] mg/dL HOSPITAL Specimen Plasma specimen Performing Organization Address City/[facility]/Zipcode Phone Number [facility] DEPARTMENT OF PATHOLOGY AND [address] [place] [address] Transfuse RBC (06/04/2019 10:32 PM [employer])Only the most recent of3 resultswithin the time period is included.Smear review (06/04/2019 5:50 AM [employer] BU[employer]) Pathologist Sig nature Platelet slide review Trell slt decr [facility] Anisocytosis Moderate [facility] Polychromasia Moderate [facility] Ovalocytes Moderate [facility] Specimen Performing Organization Address [facility] Phone Number [facility] DEPARTMENT OF PATHOLOGY AND [address] [place] [address] [phone] [address] Prothrombin time with INR (06/03/2019 11:20 PM [employer])Only the most recent of2 resultswithin the time period is included. Prothrombin time 14.8 (H) 11.5 - 14.5 [facility] INR 1.2 [place] Comment: [facility] International Normalized Ratio (INR) is a therapeu [facility] HOSPITAL monitoring tool for patients who are stable on oral anticoagulant therapy. An INR of 2.0-3.0 is suggested for deep vein thrombosis/pulmonary embolism. Specimen Blood Performing Organization Address City/[facility] Phone Number [facility] DEPARTMENT OF PATHOLOGY AND [address] [place] [phone] [place] [address] Anti Xa, unfractionated (06/03/2019 11:20 PM [employer]) Anti Xa, <0.10 (L)Comment: 0.30 - 0.70 [place] unfractionated Therapeutic Range: U/mL [facility] 0.30 - 0.70 U/mL HOSPITAL Specimen Blood Performing Organization Address City/State/Zipcode Phone Number [facility] DEPARTMENT OF PATHOLOGY AND [address] [place], [place] [address] GENOMIC MEDICINE [facility] [address] [place] [address] CT Angiogram Pe Chest (06/03/2019 7:51 PM [employer] BU[employer]) Specimen Narrative Performed At EXAMINATION: RADIANT CT ANGIOGRAM PE CHEST CLINICAL HISTORY:79 years Male Pulmonary HTN suspected , PE suspected high pretest prob, resp insufficiency if high risk s etting has tolerated coron angios without problem TECHNIQUE: CT angiographic images of the chest were obtained during intravenous administration of iodinated contrast. Comp uterized reformatted images and 3-D MIP images were also obtain ed and archived (CT pulmonary embolus protocol). CT imag ing was performed with iterative reconstruction techniques and /or automated exposure control to reduce radiation dos e. COMPARISON: To previous study from 09/09/2011 FINDINGS: 1.Tracheostomy tube is in good position. Marked narrow ing of the trachea and the mainstem bronchi concerning for excessive christine carola airway collapse. 2.There is eccentric thrombus present within the left interlobar pulmonary artery (series 2 image [id number]) consistent w ith an old thrombus. 3.The heart is enlarged. 4.There is no evidence of hilar or media stinal lymphadenopathy. 5.Marked respiratory motion obscures det ail. 6.Patchy areas of groundglass attenuation and consolid ation are present most marked in the right lower lobe conc erning for atypical infection. 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 2.Marked decrease in diameter of the tra richie and the mainstem bronchi. 3.I've discussed the findings with SHAI Kerr, at 8:00 PM, and she expressed understanding [facility]-[id number] Procedure Note Interface, Radiology Results Incoming - 06/03/2019 8:04 PM [employer] EXAMINATION: CT ANGIOGRAM PE CHEST CLINICAL HISTORY:79 years Male Pulmonary HTN suspected, PE suspected high pretest prob, resp insufficiency if high risk setting has tolerated coron angios without problem TECHNIQUE: CT angiographic images of th e chest were obtained during intravenous administration of iodinated contrast. Computerized reformatted images and 3-D MIP images were also obtained and archived (CT pulmonary embolus protocol). CT imaging was performed with iterative reconstruction techniques and/or automated exposure control to reduce radiation dose. COMPARISON: To previous study from 09/09/2011 FINDINGS: 1.Tracheostomy tube is in good position. Marked narrowing of the trachea and the mainstem bronchi concerning for excessive dynamic airway collapse. 2.There is eccentric thrombus present wi thin the left interlobar pulmonary artery (series 2 image [id number]) consistent with an old thrombus. 3.The heart is enlarged. 4.There is no evidence of hilar or media stinal lymphadenopathy. 5.Marked respiratory motion obscures det ail. 6.Patchy areas of groundglass attenuatio n and consolidation are present most marked in the right lower lobe concerning for atypical infection. 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 2.Marked decrease in diameter of the tra richie and the mainstem bronchi. 3.I've discussed the findings with Aquiles oneal RN, at 8:00 PM, and she expressed understanding [facility]-[id number] Performing Organization Address City/[facility] Phone Number [facility] [address] [place] [address] ECG 12 lead (06/03/2019 2:44 PM [employer])Only the most recent of5 resultswithin the time period is included. Pathologist Sig nature Ventricular rate 115 [facility] Atrial rate 115 [facility] MT interval 114 [facility] QRSD interval 154 [facility] QT interval 460 [facility] QTC interval 636 [facility] P axis 1 68 [facility] QRS axis 1 -73 [facility] T wave axis 89 [facility] EKG impression Atrial-sensed [facility] ventricular-paced rhythm-Biventricular pacemaker detected-Abnormal ECG-In automated comparison with ECG of 01-JUN-2019 11:32,-No significant change was found-- Specimen Narrative Performed At This result has an attachment that is no t available. Performing Organization Address [facility] Phone Number [facility] [address] [place] [address] D-dimer (06/03/2019 2:43 PM [employer] BU[employer]DER) [facility] D-dimer 1.73 (H) 0.00 - 0.40 [facility] Comment: ug/mL FEU HOSPITAL Units are ug/ml Fibrinogen Equivalent Unit. When combined with low clinical probability, D-dimer r esults of less than 0.5 ug/ml FEU have a good negative pred ictive value in excluding PE or DVT. For D-dimer results greater than 0.5 ug/ml FEU furth er testing is indicated if PE or DVT is suspected clini oralia. Elevated D-dimer results have been reported in DVT, PE , and DIC cases and may indicate the presence of a clot. D-dimer results may be elevated due to old age, pregna ncy, inflammatory diseases, trauma, post-operative states, sepsis, and malignancies. Specimen Blood Performing Organization Address City/State/Zipcode Phone Number [facility] DEPARTMENT OF PATHOLOGY AND [address] [place], [place] [address] [address] [address] Respiratory pathogen panel (06/03/2019 2:36 PM [employer] BU[employer]) [facility] Respiratory Positive for Influenza A/H1-2009 virus [facility] pathogen panel [facility] Negative for all other pathogens tested: HOSPITAL Negative for Adenovirus Negative for Coronavirus HKU1 Negative for Coronavirus NL63 Negative for Coronavirus 229E Negative for Coronavirus OC43 Negative for Human Metapneumovirus Negative for Rhinovirus/Enterovirus Negative for Influenza A Negative for Influenza A/H1 Negative for Influenza A/H3 Negative for Influenza B Negative for Parainfluenza Virus 1 Negative for Parainfluenza Virus 2 Negative for Parainfluenza Virus 3 Negative for Parainfluenza Virus 4 Negative for Respiratory Syncytial Virus Negative for Bordetella pertussis Negative for Chlamydophila pneumoniae Negative for Mycoplasma pneumoniae This real-time PCR assay detects the presence of nucle ic acids (RNA or DNA) for the respiratory pathogens liste d. A result of "Not-detected" does not exclude the possib ility of the presence of one or more pathogens at concentrat ions less than the detectable limits of the assay. (A) Comment: Specimen Information Specimen Source: Nares Specimen Site: Right Specimen Nares - Right Performing Organization Address [facility]/Zipcode Phone Number [facility] DEPARTMENT OF PATHOLOGY AND [address] [place] [address] [phone] [address] Prepare RBC, 2 Units (06/02/2019 8:34 AM [employer] BU[employer]DER)Only the most recent of2 results within the time period is included. Product name Apheresis Red Cell [place] AS3 #1 [facility] Unit number [id number] [facility] Product code [id number] [facility] Dispense status Transfused [facility] Blood expiration date [id number] [facility] Blood type code 5100 [facility] Blood type O POSITIVE [facility] Compatibility Compatible [facility] Product name Apheresis Red Cell [place] AS3 #2 [facility] Unit number [id number] [facility] Product code [id number] [facility] Dispense status Transfused [facility] Blood expiration date [facility] Blood type code 5100 [facility] Blood type O POSITIVE [facility] Compatibility Compatible [facility] Specimen Blood Performing Organization Address [facility]ode Phone Number [facility] DEPARTMENT OF PATHOLOGY AND [address] [place], [place] [address] [address] [address] Type and screen (06/02/2019 8:34 AM [employer] BU[employer]DER)Only the most recent of2 resultswithin the time period is included. Pathologist Sig nature ABO grouping O [facility] Rh type POS [facility] Antibody screen (gel) NEG [facility] Specimen Blood Performing Organization Address City/[facility]/Zipcode Phone Number [facility] DEPARTMENT OF PATHOLOGY AND [address] [place] [address] [phone] [address] Cv pyp scan for cardiac amyloidosis (06/01/2019 3:12 PM [employer] BU[employer]) Specimen Narrative Performed At This result has an attachment that is no t available. [facility] Nuclear Cardiology and Card iac CT [address] [facility], [facility] [address], [place] [address] PYP Cardiac Amyloidosis Imagin g Report Pat.Name: DILLON PEREZ at.ID: [id number] .Date: 06/01/2019 Refer.MD: ASCENCION QUINTERO MD Exam Time: 11:24:00 AM Study Type:PYP Cardiac Amyloidosis Imaging Height: 71in Weight: 266lb BSA: 2.38 m2 Age: 1001/16/1940,79Y Sex: MALE Nuclear Tech:Jenni Mendiola [facility], [facility](N) Pat. Stat.:Inpatient Nuclear Event ID:[id number] Order ID: [id number] Reason for Study:R/O TTR amyloid History / Clinical:Arrhythmia, PPM, AICD, Hypertension , Renal insufficiency/failure Procedures: PYP Cardiac Amyloidosis Race: B SUMMARY: Technique: A Tc-99m pyrophosphate study was performed to assess f or presence and type of amyloidosis. The patient was given an intraven ous injection of 21 mCi Tc-99m Pyrophosphate followed by a planar and S PECT image acquisition 1 hour and 3 hour post injection. Planar imaging of the heart was performed in the anterior projection followe d by a cardiac SPECT acquisition. Findings: The overall quality of the study was good. Semi-latanya titative visual assessment of myocardial count intensity was grade 1wh ich is not consistent with cardiac uptake greater than bone. Qu antitative findings heart to contralateral lung ratio is 1.[address] Findings: Coronary calcification is present in the LAD, right an d circumflex coronary arteries The ascending and descending aorta are normal in size. There is no significant pericardial effusion. Li mited lung ellsworth show no significant abnormalities. RA, RV, an d coronary sinus pacing leads are present. Small hiatal hernia. Impression: The overall study results are not suggestive for trans thryetin amyloidosis (ATTR). FINDINGS: Signed 06/01/2019 03:40 PM Mohan Saucedo MD Procedure Note Interface, Radiology Results In - 2019 3:40 PM [facility] Nuclear Cardiology and Cardiac CT [address] [place] [address] PYP Cardiac Amyloidosis Imaging Report Pat.Name: DILLON PEREZ Pat.I D: [id number] .Date: 06/01/2019 Refer .MD: ASCENCION QUINTERO MD Exam Time: 11:24:00 AM Study Type:PYP Cardiac Amyloidosis Imagi ng Height: 71in Weigh t: 266lb BSA: 2.38 m2 Age: 1001/16/1940,79Y Sex: MALE Nuclear Tech:ALLIE Tavares, ARRT(N) Pat. Stat.:Inpatient Nucle ar Event ID:[id number] Order ID: [id number] Reason for Study:R/O TTR amyloid History / Clinical:Arrhythmia, PPM, AICD , Hypertension, Renal insufficiency/failure Procedures: PYP Cardiac Amyloidosis Race: B SUMMARY: Technique: A Tc-99m pyrophosphate study was perform ed to assess for presence and type of amyloidosis. The patient was giv en an intravenous injection of 21 mCi Tc-99m Pyrophosphate followed by a planar and SPECT image acquisition 1 hour and 3 hour post injec tion. Planar imaging of the heart was performed in the anterior proj ection followed by a cardiac SPECT acquisition. Findings: The overall quality of the study was goo d. Semi-quantitative visual assessment of myocardial count intensity was grade 1which is not consistent with cardiac uptake greater t quach bone. Quantitative findings heart to contralateral lung rat io is 1.[address] Findings: Coronary calcification is present in the LAD, right and circumflex coronary arteries The ascending and blanca cending aorta are normal in size. There is no significant pericardia l effusion. Limited lung ellsworth show no significant abnormalities . RA, RV, and coronary sinus pacing leads are present. Small hiatal hernia. Impression: The overall study results are not sugges tive for transthryetin amyloidosis (ATTR). FINDINGS: Signed 06/01/2019 03:40 PM Mohan Saucedo MD Performing Organization Address [facility] Cent[facility]ode Phone Number [facility] [address] [place] [address] [place] lambda free light chain with ratio (06/01/2019 5:20 AM [employer]) Pathologist [facility] nature [place] light chain 289.08 (H) 3.30 - 19.40 [facility] mg/L [facility] Lambda light chain 143.97 (H) 5.70 - 26.30 [facility] mg/L [facility] [place] lambda ratio 2.01 (H) 0.26 - 1.65 [facility] Specimen Plasma specimen Performing Organization Address [facility] Phone Number [facility] DEPARTMENT OF PATHOLOGY AND [address] [place] [phone] GENOM[address] [address] [address] cardiac calcium score (05/31/2019 3:35 PM [employer] BU[employer]DER) Specimen Narrative Performed At [facility] Cardi ology and Cardiac CT [address] [place] [address], [place] [address], [place] [address] CT Calc ium Scoring Report Pat.Name: DILLON PEREZ Pat.ID: [id number] .Date: 05/31/2019 Refer.MD: ASCENCION QUINTERO MD Exam Time: 3:04:00 PM Study Type:C T Calcium Scoring Height: 71in Weight: 266lb BSA: 2.38 m2 Ag e: 1940,79Y Sex: MALE HR: 92 bpm Nuclear Tech:Ayo Aviles, RT(NM)(CT), DRY TRANSFER MAN/Abdiel Billings [facility] Pat. Stat.:Inpatient Nuclear Event ID:[id number] Order ID: [id number] Reason for Study:Eval Aortic Valve Procedures: CT Flash mode Race: Black SUMMARY: Technique: Sequential 3mm CT cuts were obtained thr ough the chest using the Siemens Somatom Force CT scanner with EC G gating. Interactive image viewing and volumetric display and ammy sis were also performed. The CAC score was quantified using the Agats ton scoring method. Non-contrast Cardiac CT results are as f ollows: The aortic valve calcium score is 1320. There is moderate mitral annular calcification. The non-contrast CT shows a normal cardi ac size, no pericardial abnormalities, a mildly enlarged ascendi ng thoracic aorta of 4.1 m, and a upper normal descending thoracic a jeni of 3.0 cm. The left main and right coronary arteries appear to or iginate normally off the left and right sinus of Valsalva. The right coronary artery is dominant. Non-Cardiac Findings: RA, RV and CS pacemaker wires are present. Ground glass patchy opacities in the alex g ellsworth. Conclusion: 1) The aortic valve calcium score is 132 0 2) Mildly enlarged ascending thoracic ao rta of 4.1 m, The descending aorta is at the upper limits of normal at 3.0 cm. FINDINGS: Signed 05/31/2019 07:15 PM Beny Weiss MD Procedure Note Interface, Radiology Results In - 2019 7:15 PM [facility] Nuclear Cardiology and Cardiac CT [address] [place] [address] CT Calcium Scoring Report Pat.Name: DILLON PEREZ Pat.I D: [id number] .Date: 05/31/2019 Refer .MD: ASCENCION QUINTERO MD Exam Time: 3:04:00 PM Study Type:CT Calcium Scoring Height: 71in Weigh t: 266lb BSA: 2.38 m2 Age: 1001/16/1940,79Y Sex: MALE HR: 92 bpm Nuclear Tech:Ayo Aviles RT(NM)(CT), [facility]/Abdiel Billings [facility] Pat. Stat.:Inpatient Nuclear Event ID:[id number] Order ID: [id number] Reason for Study:Eval Aortic Valve Procedures: CT Flash mode Race: Black SUMMARY: Technique: Sequential 3mm CT cuts were obtained thr ough the chest using the Siemens Somatom Force CT scanner with EC G gating. Interactive image viewing and volumetric display and ammy sis were also performed. The CAC score was quantified using the Agats ton scoring method. Non-contrast Cardiac CT results are as f ollows: The aortic valve calcium score is 1320. There is moderate mitral annular calcification. The non-contrast CT shows a normal cardi ac size, no pericardial abnormalities, a mildly enlarged ascendi ng thoracic aorta of 4.1 m, and a upper normal descending thoracic a jeni of 3.0 cm. The left main and right coronary arteries appear to or iginate normally off the left and right sinus of Valsalva. The right coronary artery is dominant. Non-Cardiac Findings: RA, RV and CS pa cemaker wires are present. Ground glass patchy opacities in the alex g ellsworth. Conclusion: 1) The aortic valve calcium score is 132 0 2) Mildly enlarged ascending thoracic ao rta of 4.1 m, The descending aorta is at the upper limits of normal at 3.0 cm. FINDINGS: Signed 05/31/2019 07:15 PM Beny Weiss MD Performing Organization Address City/[facility]/Zipcode Phone Number [facility] [address] [place] [address] T3, free (05/31/2019 4:10 AM [employer]DER) Pathologist Sig nature T3, free 1.1 (L) 2.4 - 4.2 pg/mL [facility] Comment: REFERENCE INTERVAL: Triiodothyronine, Free (Free T3) Access complete set of age- and/or gender-specific ref erence intervals for this test in the [facility] Test Di rectory ([email or web address]). Performed by [facility], [address] [place] [id number] [email or web address], Jared Foster MD, Lab. Director Specimen Serum Performing Organization Address [facility] Centercode Phone Number [facility] [address] [place] [address] [facility] [address] [place] [address] Ionized calcium (05/31/2019 12:00 AM [employer] BU[employer]DER)Only the most recent of4 resultswithin the time period is included. Pathologist Sig nature pH 7.38 [facility] Ionized calcium 1.06 (L) 1.11 - 1.32 [facility] mmol/L HOSPITAL Specimen Plasma specimen Performing Organization Address [facility] Centercode Phone Number [facility] DEPARTMENT OF PATHOLOGY AND [address] [place] [phone] GENOMIC MED[address] [address] Echocardiogram complete w contrast and 3D if needed (05/30/2019 7:00 PM [employer] BU[employer]DER) Specimen Narrative Performed At [facility] Echo cardiography Report [address] [facility], [facility] [address], [place] [address] Pat.Name: DILLON PEREZ Pat.ID: [id number] .Date: 05/30/2019 Refer.MD: ASCENCION QUINTERO MD Exam Time: 6:00:00 PM Study Type:R outine Echo Height: 71in Weight: 305lb BSA: 2.53 m2 Ag e: 1940,79Y Sex: MALE BP: 138/70 HR: 72 bpm Sonogr phr: EZRA Stock Pat. Stat.:Inpatient Room: [address] Study Status:Final Echo Event ID:[id number] Order ID: [id number] Reason for Study:Aortic stenosis evaluat ion. History / Clinical:Congestive Heart Fail ure, Coronary Artery Disease Procedures: 2D Echo, Colorflow Doppler, Portable Race: B SUMMARY: Moderate thickening and calcification of AV leaflets. Moderate to severe aortic valve stenosis . Estimated mean aortic valve gradient 27 mmHg with a valve area of 1.2 cm2 (0.5 cm2/m2). FINDINGS: LV: LV size is severely enlarged. There is mo derate eccentric LV hypertrophy. LV EF is s everely depressed. Global hypokinesis. Septal motion is paradox ical secondary to LBBB or conduction abnormali ty. Estimated EF is 25-29%. RV: RV size is enlarged. A pace maker wire is seen in the RV. RV systolic function is no rmal. RV wall motion is normal. LA: LA volume is mild to modera tely enlarged. RA: RA volume is normal. A pace maker wire is seen. AO: Aortic root diameter is nor mal. NIDIA: No pericardial effusion. AV: Moderate thickening and ever cification of AV leaflets. Mild aortic regurgitation. M oderate to severe aortic valve stenosis. Estimated mean aortic valve gradient 27 mmHg with a valve area of 1.2 cm2 (0.5 cm2/m2). MV: Moderate mitral annular ever cification. Mild mitral regurgitation. PV: Pulmonic valve not well see n. TV: No structural TV abnormalit ies noted. Mild tricuspid regurgitation Moise: Diastolic dysfunction Grade II (Moderate): Impaired relaxation with elevate d LV filling pressures. Other: Estimated PA systolic pressu re is 46 mmHg, assuming a mean RAP of 10 mmHg. MEASUREMENTS: 2D Parasternal Long [place] Ao An 2.5 cm LVPWd 1.2 cm Ao Rtd 3.4 cm Index 1.4 cm/m2 LA Ds 4.1 cm IVSd 1.2 cm RWT 0.36 LVIDd 6.5 cm Index 2.6 cm/m2 LV Mass 353 g (122-1 74) LVIDs 4.9 cm LVM In dex 140 g/m LV%fs 24 % LA Sng Plane LA Area 29 cm (8.8-23.4) LA Vol 98 ml Index 39 ml/m2 LA LngAx 7.5 cm RA Sng Plane RA Vol 85 ml Index 33 ml/m2 RA LngAx 5.9 cm RA Area 25 cm (8.3-1 9.5) LVOT For Flow LVOT 2.1 cm LVOT A colin 3.5 cm DOPPLER AV For Flow/SALLY AV pkVel 344 cm/s (100-170) AV TVI 90 cm AV mnVel 234 cm/s AVpkAcRt 3819 cm/s AV pkPG 47 mmHg AV DeRt 899 cm/s AV Mean G 27 mmHg AV Area 1.2 cm (3-5) AV ET 383 msec AV AC 156 msec (83-118) AV AC/ET 0.41 Aortic Valve AV DI 0.34 LVOT For Flow LVOT TVI 31 cm LVOT CI 2.9 l/m/m LVOT SV 106 ml LVOTpkP G 5.4 mmHg LVOTpkVel 116 cm/s LVOTmnPG 3.1 mmHg LVOT CO 7.4 l/min HR 70 bpm LVOT SVi 42 ml/m Signed 05/31/2019 01:49 PM Jodi Rose M.D. Procedure Note Interface, Radiology Results In - 2019 1:49 PM [employer] Echocardiography Report [id number] [facility], [facility] 9 , [place] [address] Pat.Name: DILLON PEREZ Pat.I D: [id number] .Date: 05/30/2019 Refer .MD: ASCENCION QUINTERO MD Exam Time: 6:00:00 PM Study Type:Routine Echo Height: 71in Weigh t: 305lb BSA: 2.53 m2 Age: 1001/16/1940,79Y Sex: MALE BP: 138/70 HR: 72 bpm Sonog rphr: EZRA Stock Pat. Stat.:Inpatient Room: [address] Study Status:Final Echo Event ID:[id number] Order ID: [id number] Reason for Study:Aortic stenosis evaluat ion. History / Clinical:Congestive Heart Fail ure, Coronary Artery Disease Procedures: 2D Echo, Colorflow Doppler, Portable Race: B SUMMARY: Moderate thickening and calcification of AV leaflets. Moderate to severe aortic valve stenosis . Estimated mean aortic valve gradient 27 mmHg with a valve area of 1.2 cm2 (0.5 cm2/m2). FINDINGS: LV: LV size is severely enlarged. There is moderate eccentric LV hypertrophy. LV EF is severel y depressed. Global hypokinesis. Septal motion is paradoxical secondary to LBBB or conduction abnormality. Es timated EF is 25-29%. RV: RV size is enlarged. A pacemak er wire is seen in the RV. RV systolic function is normal. RV wall motion is normal. LA: LA volume is mild to moderatel y enlarged. RA: RA volume is normal. A pacemak er wire is seen. AO: Aortic root diameter is normal . NIDIA: No pericardial effusion. AV: Moderate thickening and calcif ication of AV leaflets. Mild aortic regurgitation. Moderat e to severe aortic valve stenosis. Estimated mean aort ic valve gradient 27 mmHg with a valve area of 1.2 cm2 (0.5 cm2/m2). MV: Moderate mitral annular calcif ication. Mild mitral regurgitation. PV: Pulmonic valve not well seen. TV: No structural TV abnormalities noted. Mild tricuspid regurgitation Moise: Diastolic dysfunction Grade II (Moderate): Impaired relaxation with elevated LV f illing pressures. Other: Estimated PA systolic pressure is 46 mmHg, assuming a mean RAP of 10 mmHg. MEASUREMENTS: 2D Parasternal Long [place] Ao An 2.5 cm LVPW d 1.2 cm Ao Rtd 3.4 cm Inde x 1.4 cm/m2 LA Ds 4.1 cm IVSd 1.2 cm RWT 0.36 LVIDd 6.5 cm Inde x 2.6 cm/m2 LV Mass 353 g (122-174) LVIDs 4.9 cm LVM Index 140 g/m LV%fs 24 % LA Sng Plane LA Area 29 cm (8.8-23.4) L A Vol 98 ml Index 39 ml/m2 LA LngAx 7.5 cm RA Sng Plane RA Vol 85 ml Inde x 33 ml/m2 RA LngAx 5.9 cm RA Area 25 cm (8.3-19.5) LVOT For Flow LVOT 2.1 cm LVOT Area 3.5 cm DOPPLER AV For Flow/SALLY AV pkVel 344 cm/s (100-170) AV TVI 90 cm AV mnVel 234 cm/s AVpk AcRt 3819 cm/s AV pkPG 47 mmHg AV D eRt 899 cm/s AV Mean G 27 mmHg AV A colin 1.2 cm (3-5) AV ET 383 msec AV A C 156 msec (83-118) AV AC/ET 0.41 Aortic Valve AV DI 0.34 LVOT For Flow LVOT TVI 31 cm LVOT CI 2.9 l/m/m LVOT SV 106 ml LVOT pkPG 5.4 mmHg LVOTpkVel 116 cm/s LVOT mnPG 3.1 mmHg LVOT CO 7.4 l/min HR 70 bpm LVOT SVi 42 ml/m Signed 05/31/2019 01:49 PM Jodi Rose M.D. Performing Organization Address City/State/Zipcode Phone Number [facility] [address] [phone] duplex arterial upper extremity (05/30/2019 5:00 PM [employer]) Specimen Narrative Performed At [facility] Vascular U ltrasound Laboratory Upper Extr emity Arterial Report [id number] [facility], [address], [place] [address] Pat.Name: DILLON PEREZ Pat.ID: [id number] .Date: 05/30/2019 Refer.MD: ASCENCION QUINTERO MD Exam Time: 3:21:00 PM Study Type:U E Arterial Age: 1001/16/1940,79Y Sex: MALE Sonogrphr: Priti Recinos RVT Pat. Stat.:Insaint elizabeth edgewood nt Room: [address] ol: RF, CPT - 4: 69636 Echo Rhea nt ID:[id number] Order ID: [id number] Reason for Study:Bilateral arm pain and swelling. 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 Procedures: Colorflow, Grayscale/2D, Pow er Doppler Imaging Race: B SUMMARY: DUPLEX SCAN OBSERVATIONS: RIGHT: The subclavian artery is visualiz ed with colorflow and triphasic arteiral Doppler signals. Biph asic arterial Doppler signals and colorflow noted in the axillary, bra chial and radial artery. Hyperechoic arterial aviles of the radial and ulnar arteries. There is colorflow with biphasic arterial Doppler signals in the ulnar artery throughout the upper arm and proximal to mid forearm. Absent colorflow and Doppler signals of the distal ulnar artery in the distal forearm. There is a high bifurcation of the radia l and ulnar arteries in the proximal upper arm. LEFT: Disturbed and pulsatile colorflow and Doppler signals noted throughout the subclavian and axillary a rtery. There is hyperechoic arterial aviles of the brachial artery wi th disturbed, pulsatile colorflow and Doppler signals of the bra chial artery. There appears to be a patent AV fistula noted in the dist al brachial artery. The radial and ulnar artery are highly calcified. T here is dampened high resistant monophasic Doppler signals in the proximal radial artery with absent colorflow and Doppler signal s of the mid to distal radial artery. There is colorflow and biphasic arterial Doppler signlas of the ulnar artery. DOPPLER FINDINGS: ARTERY LOCATION PSV (cm/sec) RIGHT Subclavian 133 Axillary Proximal-third 53 Brachial Proximal-third 53 Radial Proximal upper arm 67 Mid upper arm 50 Distal upper arm 34 Proximal forearm 50 Mid forearm 33 Distal forearm 40 Ulnar Proximal upper arm 61 Mid upper arm 41 Distal upper ar 48 Proximal forearm 23 Mid forearm 38 Distal forearm 0 ARTERY LOCATION PSV (cm/sec) LEFT Subclavian 142 Axillar y Proximal-third 109 Brachial Proximal-third 153 Mid-third 161 Distal-third 225 Radial Proximal-third 13 Mid third 0 Distal third 0 Ulnar Proximal-third 39 cm/sec Mid third 24 Distal third 36 PRELIMINARY FINDINGS: 1. 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 2. Occlusion of the left mid to distal r adial artery. 3. patent left AV fistula. 4. High bifurcation of the right radial and ulnar artery. PHYSICIAN INTERPRETATION: Arterial duplex examination of both up per extremities demonstrates occlusion of the right distal ulnar aarti ry. Occlusion of the left mid to distal rad ial artery. Patent left AV fistula. FINDINGS: Signed 05/30/2019 05:50 PM Marcellus Yung MD, VI Procedure Note Interface, Radiology Results In - 2019 5:50 PM [facility] Vascular Ultrasound Laboratory Upper Extremity Aarti rial Report [id number] [address] Pat.Name: LANIDILLON Pat.I D: [id number] .Date: 05/30/2019 Refer .MD: ASCENCION QUINTERO MD Exam Time: 3:21:00 PM Study Type:UE Arterial Age: 1001/16/1940,79Y Sex: MALE Sonogrphr: PAUL Herrera. Stat.:Inpatient Room: RU9042-S Tape Vol: RF, CPT - 4: 46837 Echo Event ID:[id number] Order ID: [id number] Reason for Study:Bilateral arm pain and swelling. 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 Procedures: Colorflow, Grayscale/2D, Pow er Doppler Imaging Race: B SUMMARY: DUPLEX SCAN OBSERVATIONS: RIGHT: The subclavian artery is visualiz ed with colorflow and triphasic arteiral Doppler signals. Biph asic arterial Doppler signals and colorflow noted in the axillary, bra chial and radial artery. Hyperechoic arterial aviles of the radial and ulnar arteries. There is colorflow with biphasic arterial Doppler signals in the ulnar artery throughout the upper arm and proximal to mid forearm. Absent colorflow and Doppler signals of the distal ulnar artery in the distal forearm. There is a high bifurcation of the radia l and ulnar arteries in the proximal upper arm. LEFT: Disturbed and pulsatile colorflow and Doppler signals noted throughout the subclavian and axillary a rtery. There is hyperechoic arterial aviles of the brachial artery wi th disturbed, pulsatile colorflow and Doppler signals of the bra chial artery. There appears to be a patent AV fistula noted in the dist al brachial artery. The radial and ulnar artery are highly calcified. T here is dampened high resistant monophasic Doppler signals in the proximal radial artery with absent colorflow and Doppler signal s of the mid to distal radial artery. There is colorflow and biphasic arterial Doppler signlas of the ulnar artery. DOPPLER FINDINGS: ARTERY LOCATION PSV (cm/sec) RIGHT Subclavian 133 Axillary Proximal-third 53 Brachial Proximal-third 53 Radial Proximal upper arm 67 Mid upper arm 50 Distal upper arm 34 Proximal forearm 50 Mid forear m 33 Distal forearm 40 Ulnar Proximal upper arm 61 Mi d upper arm 41 Distal upper ar 48 Proximal forearm 23 Mid forearm 38 Distal forearm 0 ARTERY LOCATION PSV (cm/sec) LEFT Subclavian 142 Axillary Pr oximal-third 109 Brachial Proximal-third 153 Mid-third 161 Distal-third 225 Radial Proximal-third 13 Mid t hird 0 Distal third 0 Ulnar Proximal-third 39 cm/sec Mid third 24 Distal third 36 PRELIMINARY FINDINGS: 1. 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 2. Occlusion of the left mid to distal r adial artery. 3. patent left AV fistula. 4. High bifurcation of the right radial and ulnar artery. PHYSICIAN INTERPRETATION: Arterial duplex examination of both upp er extremities demonstrates occlusion of the right distal ulnar aarti ry. Occlusion of the left mid to distal rad ial artery. Patent left AV fistula. FINDINGS: Signed 05/30/2019 05:50 PM Marcellus Yung MD, RPVI Performing Organization Address City/State/Zipcode Phone Number [facility] [address] [phone] Us ankle brachial index (05/30/2019 3:30 PM [employer]) Specimen Narrative Performed At [facility] Vascular D iagnostic Laboratory Physiologi c Arterial Leg Report [address] [place] [address] Pat.Name: DILLON PEREZ Pat.ID: [id number] .Date: 05/30/2019 Refer.MD: ASCENCION QUINTERO MD Exam Time: 2:32:00 PM Study Type:P hysiologic Leg Age: 1001/16/1940,79Y Sex: MALE Sonogrphr: Priti Recinos RVT Pat. Stat.:Inpatie nt Room: [address] l: RF, CPT - 4: [address]34 Echo Rhea nt ID:[id number] Order ID: [id number] Reason for Study:Bilateral decreased ped al pulses. 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 Procedures: Ankle/brachial pressures, Di git pressures Race: B SUMMARY: ANKLE/BRACHIAL INDEX: RIGHT LEFT Brachial Artery Uzceldod613 mmHg AV-F istula DP 0 mmHg 0 mmHg PT >255 mmHg 150 mmHg ION DP 0 0 ION PT Non-compressible 1.14 TOE/BRACHIAL INDEX: Great Toe 78 mmHg 117 mmHg TBI 0.59 0.89 PRELIMINARY FINDINGS: 1. Unable to calculate the right ankle/b rachial index of the posterior tibial artery due to non-compressible ar danyell. Unable to obtain the right ankle/brachia l index of the dorsalis pedis due to absent Doppler signal. 2. The left posterior tibial artery ankl e/brachial index falls into the normal category. Unable to obtain th e left ankle/brachial index of the dorsalis pedis due to absent Doppler signal. 3. The right toe/brachial index falls in to the mild category and the left falls into the normal category. PHYSICIAN INTERPRETATION: 1. Unable to calculate the right ankle/b rachial index of the posterior tibial artery due to non-compressible ar danyell. Unable to obtain the right ankle/brachia l index of the dorsalis pedis due to absent Doppler signal. 2. The left posterior tibial artery ankl e/brachial index falls into the normal category. Unable to obtain th e left ankle/brachial index of the dorsalis pedis due to absent Doppler signal. 3. The right toe/brachial index falls in to the mild category and the left falls into the normal category. FINDINGS: Signed 05/30/2019 09:50 PM Marcellus Yung MD, RPVI Procedure Note Interface, Radiology Results In - 2019 9:50 PM [employer] Vascular Diagnostic Laboratory Physiologic Arterial Leg Report [address] [address] , [place] [address] Pat.Name: DILLON PEREZ Pat.I D: [id number] .Date: 05/30/2019 Refer .MD: ASCENCION QUINTERO MD Exam Time: 2:32:00 PM Study Type:Physiologic Leg Age: 1001/16/1940,79Y Sex: MALE Sonogrphr: Priti Recinos RVT Pat. Stat.:Inpatient Room: [address] Tape Vol: RF, CPT - 4: 88598 Echo Event ID:[id number] Order ID: [id number] Reason for Study:Bilateral decreased ped al pulses. 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 Procedures: Ankle/brachial pressures, Di git pressures Race: B SUMMARY: ANKLE/BRACHIAL INDEX: RIGHT LEFT Brachial Artery Sunezrsc900 mmHg AV-Fi stula DP 0 mmHg 0 mmHg PT >255 mmHg 150 mmHg ION DP 0 0 ION PT Non-compressible 1.14 TOE/BRACHIAL INDEX: Great Toe 78 mmHg 117 mmHg TBI 0.59 0.89 PRELIMINARY FINDINGS: 1. Unable to calculate the right ankle/b rachial index of the posterior tibial artery due to non-compressible ar danyell. Unable to obtain the right ankle/brachia l index of the dorsalis pedis due to absent Doppler signal. 2. The left posterior tibial artery ankl e/brachial index falls into the normal category. Unable to obtain th e left ankle/brachial index of the dorsalis pedis due to absent Doppler signal. 3. The right toe/brachial index falls in to the mild category and the left falls into the normal category. PHYSICIAN INTERPRETATION: 1. Unable to calculate the right ankle/b rachial index of the posterior tibial artery due to non-compressible ar danyell. Unable to obtain the right ankle/brachia l index of the dorsalis pedis due to absent Doppler signal. 2. The left posterior tibial artery ankl e/brachial index falls into the normal category. Unable to obtain th e left ankle/brachial index of the dorsalis pedis due to absent Doppler signal. 3. The right toe/brachial index falls in to the mild category and the left falls into the normal category. FINDINGS: Signed 05/30/2019 09:50 PM Marcellus Yung MD, RPVI Performing Organization Address City/State/Zipcode Phone Number [facility] [address] duplex arterial lower extremity (05/30/2019 3:30 PM [employer]) Specimen Narrative Performed At [facility] Vascular D iagnostic Laboratory Physiologi c Arterial Leg Report [address] [place] [address] Pat.Name: DILLON PEREZ Pat.ID: [id number] .Date: 05/30/2019 Refer.MD: ASCENCION QUINTERO MD Exam Time: 2:32:00 PM Study Type:P hysiologic Leg Age: 1001/16/1940,79Y Sex: MALE Sonogrphr: Priti Recinos RVT Pat. Stat.:Inpatie nt Room: [address] Vo l: RF, CPT - 4: 01132 Echo Rhea nt ID:[id number] Order ID: [id number] Reason for Study:Bilateral decreased ped al pulses. 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 Procedures: Ankle/brachial pressures, Di git pressures Race: B SUMMARY: ANKLE/BRACHIAL INDEX: RIGHT LEFT Brachial Artery Zpkbzais736 mmHg AV-F istula DP 0 mmHg 0 mmHg PT >255 mmHg 150 mmHg ION DP 0 0 ION PT Non-compressible 1.14 TOE/BRACHIAL INDEX: Great Toe 78 mmHg 117 mmHg TBI 0.59 0.89 PRELIMINARY FINDINGS: 1. Unable to calculate the right ankle/b rachial index of the posterior tibial artery due to non-compressible ar danyell. Unable to obtain the right ankle/brachia l index of the dorsalis pedis due to absent Doppler signal. 2. The left posterior tibial artery ankl e/brachial index falls into the normal category. Unable to obtain th e left ankle/brachial index of the dorsalis pedis due to absent Doppler signal. 3. The right toe/brachial index falls in to the mild category and the left falls into the normal category. PHYSICIAN INTERPRETATION: 1. Unable to calculate the right ankle/b rachial index of the posterior tibial artery due to non-compressible ar danyell. Unable to obtain the right ankle/brachia l index of the dorsalis pedis due to absent Doppler signal. 2. The left posterior tibial artery ankl e/brachial index falls into the normal category. Unable to obtain th e left ankle/brachial index of the dorsalis pedis due to absent Doppler signal. 3. The right toe/brachial index falls in to the mild category and the left falls into the normal category. FINDINGS: Signed 05/30/2019 9:50:00 PM Marcellus Yung MD, RPVI Procedure Note Interface, Radiology Results In - 2019 9:03 AM [facility] Vascular Diagnostic Laboratory Physiologic Arterial Leg Report [id number] [address] Pat.Name: DILLON PEREZ Rhianna Pat.I D: [id number] .Date: 05/30/2019 Refer .MD: ASCENCION QUINTERO MD Exam Time: 2:32:00 PM Study Type:Physiologic Leg Age: 1001/16/1940,79Y Sex: MALE Sonogrphr: PAUL Herrera. Stat.:Inpatient Room: [address] Tape Vol: RF, CPT - 4: 33905 Echo Event ID:[id number] Order ID: [id number] Reason for Study:Bilateral decreased ped al pulses. 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 Procedures: Ankle/brachial pressures, Di git pressures Race: B SUMMARY: ANKLE/BRACHIAL INDEX: RIGHT LEFT Brachial Artery Gdswofnf026 mmHg AV-Fi stula DP 0 mmHg 0 mmHg PT >255 mmHg 150 mmHg ION DP 0 0 ION PT Non-compressible 1.14 TOE/BRACHIAL INDEX: Great Toe 78 mmHg 117 mmHg TBI 0.59 0.89 PRELIMINARY FINDINGS: 1. Unable to calculate the right ankle/b rachial index of the posterior tibial artery due to non-compressible ar danyell. Unable to obtain the right ankle/brachia l index of the dorsalis pedis due to absent Doppler signal. 2. The left posterior tibial artery ankl e/brachial index falls into the normal category. Unable to obtain th e left ankle/brachial index of the dorsalis pedis due to absent Doppler signal. 3. The right toe/brachial index falls in to the mild category and the left falls into the normal category. PHYSICIAN INTERPRETATION: 1. Unable to calculate the right ankle/b rachial index of the posterior tibial artery due to non-compressible ar danyell. Unable to obtain the right ankle/brachia l index of the dorsalis pedis due to absent Doppler signal. 2. The left posterior tibial artery ankl e/brachial index falls into the normal category. Unable to obtain th e left ankle/brachial index of the dorsalis pedis due to absent Doppler signal. 3. The right toe/brachial index falls in to the mild category and the left falls into the normal category. FINDINGS: Signed 05/30/2019 9:50:00 PM Marcellus Yung MD, RPVI Performing Organization Address [facility] Phone Number [facility] [address] [place] [phone] LDH (05/30/2019 11:05 AM [employer]) Pathologist [facility] LDH 267 (H) 87 - 225 U/L [facility] Specimen Plasma specimen Performing Organization [facility] Phone Number [facility] DEPARTMENT OF PATHOLOGY AND [address] [place] [phone] Uric acid level (05/30/2019 12:50 AM [employer]) Pathologist [facility] Uric acid 4.5 3.4 - 7.0 mg/dL [facility] L Specimen Plasma specimen Performing Organization [facility] DEPARTMENT OF PATHOLOGY AND [address] [place] [address] Thyroid stimulating hormone (05/30/2019 12:50 AM [employer]) Pathologist [facility] TSH 0.63 0.27 - 4.20 uIU/mL [facility] Specimen Plasma specimen Performing Organization [facility] Phone Number [facility] DEPARTMENT OF PATHOLOGY AND [address] [place] [address] [place] [phone] T4, free (05/30/2019 12:50 AM [employer]) Pathologist [facility] T4, free 0.7 (L) 0.9 - 1.7 ng/dL [facility] L Specimen Plasma specimen Performing Organization Address [facility] Phone Number [facility] DEPARTMENT OF PATHOLOGY AND [address] [address] Manual differential (05/30/2019 12:20 AM [employer]) Manual differential PERFORMED [facility] Neutrophils 81.0 (H) 39.0 - 69.0 % [facility] Lymphocytes 10.0 (L) 25.0 - 45.0 % [facility] Monocytes 8.0 0.0 - 10.0 % [facility] Eosinophils 1.0 0.0 - 5.0 % [facility] Basophils 0.0 0.0 - 1.0 % [facility] Metamyelocytes 0 % [facility] Promyelocytes 0 % [facility] Platelet slide review Decreased (A) [facility] Anisocytosis Moderate [facility] Polychromasia Moderate [facility] Tear drop cells Occasional [facility] [place] cells Moderate (A) [facility] Enlarged platelets Moderate (A) [facility] Specimen Performing Organization Address City/[facility] Phone Number [facility] DEPARTMENT OF PATHOLOGY AND [address] [place] [phone] Heparin PF4 antibody (IgG) (05/29/2019 9:41 AM [employer]) Pathologist Sig nature Heparin PF4 Ab OD 0.206 0.000 - 0.399 [facility] Heparin PF4 Ab, IgG Negative Negative [facility] Specimen Blood Performing Organization Address City/[facility] Phone Number [facility] DEPARTMENT OF PATHOLOGY AND [address] [place] [address] Hepatitis B surface antigen (05/28/2019 1:50 PM [employer]) Pathologist Sig nature Hepatitis B surface Non-reactive Non-reactive [facility] Specimen Blood Performing Organization Address City/[facility] Phone Number [facility] DEPARTMENT OF PATHOLOGY AND [address] [place] [address] Hemoglobin A1c (05/28/2019 9:41 AM [employer]) Hemoglobin A1C 6.5 (H) 4.0 - 5.6 % [facility] Comment: HOSPITAL HbA1c cutoffs for diagnosing diabetes: 4.0% - 5.6% = normal 5.7% - 6.4% = increased risk for diabetes (prediabetes )9 >=6.5% = diabetes9 Goals for glycemic control (ADA 2016) < 7.0% Target for non adults with diabetes. More or less stringent targets may be appropriate for individual patients. <7.5% Target for Children and adolescents with type 1 diabetes. 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
--- OUTSIDE RECORDS SUMMARY | 2019-10-09 01:18 | XMS REPORT | Continuity of Care Document ---
:1940 Author Organization [facility] t Address [address] [place] [address] Care Team Providers Name Role Phone Martin CHOWDHURY, Anmol Walker Primary Care Physician JOANN Attending Clinician Unavailable Ingrid CHOWDHURY, R. Attending Clinician Ester CHOWDHURY, M. Attending Clinician Johnathan CHOWDHURY PhD, S. Attending Clinician JOANN Admitting Clinician Unavailable INGRID Admitting Clinician Unavailable Payers Payer Name Policy Policy Number Effective Expiration Source Type Date Date MEDICAREMEDICARE PART xxxxxxxxxxx 2004 Jono garcía A AND 00:00:00 [facility] [id number]/1/2004 [place] 2008 [employer] [place] SUPPLEMENTxxxxxxxxxxx 00:00:00 Met [place] 2008-PresentComme rcial Problems Condition Condition Condition Status Onset Resolution Last Treating Co mments Source Name Details Category Date Date Treatment Clinician Date Influenza Influenza Disease Active Yoel joseph A (H1N1) A (H1N1) 2- Method i 00:00: st 00 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 martinezyas stage stage 2-18 Methodi renal renal 00:00: st disease) disease) 00 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 2-16 [facility] valve valve 00:00: st stenosis stenosis 00 Unstable Unstable Disease Active Overview: Jono garcía angina angina 4-11 Added Methodi 00:00: automatic st 00 ally from request for surgery [id number] Coronary Coronary Disease Active Overview: Jono garcía artery artery 4-11 Added Methodi disease disease 00:00: automatic st involving involving 00 ally from sun'aq sun'aq request coronary coronary for artery of artery of surgery sun'aq sun'aq [id number] heart heart without without angina angina pectoris pectoris Chest pain Chest pain Disease Active Overview : [place] 4-11 Added Methodi 00:00: automatic st 00 ally from request for surgery [id number] 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 4-10 Method i 00:00: st 00 Coronary Coronary Disease Active [place] artery artery 4-10 Methodi disease of disease of 00:00: st sun'aq sun'aq 00 artery of artery of sun'aq sun'aq heart with heart with stable stable angina angina pectoris pectoris Automatic Automatic Disease Active 2016-04 Yoel joseph implantabl implantabl - Me thodi e e 00:00: st cardiovert cardiovert 00 er-defibri er-defibri llator in llator in situ situ PAD PAD Disease Active [place] (periphera (periphera 4-25 Me thodi l artery l artery 00:00: st disease) disease) 00 Cardiomyop Cardiomyop Disease Active [place] athy athy 4-25 Methodi 00:00: st 00 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 Me thodi heart heart 00:00: st failure failure 00 Biceps Biceps Diagnosis Active [facility] tendinitis tendinitis Jennifer kes - of right of right Memori a shoulder shoulder l [facility]pat[facility] Rotator Rotator Diagnosis [facility] cuff cuff [facility]ath Me moria y of right y of right l shoulder shoulder Outpat i ent Clinics Pain, Pain, Diagnosis Active [facility] joint, joint, [facility] - shoulder, shoulder, Sky mary ann right right l Outpati ent Clinics Allergies, Adverse Reactions, Alerts Allergy Allergy Status Severity Reaction(s) Onset Inactive Treating Comm ents Source Name Type Date Date Clinician iodine DA Active U 2020-0 [facility] 5-16 Clear 00:00: Ann 00 [facility] ciproflo DA Active U 2020-0 [facility] xacin 5-16 Clear 00:00: Ann 00 [facility] meperidi DA Active U 2020-0 [facility] ne 5-16 Clear 00:00: Ann 00 [facility] iodine DA Active U 2020-0 [facility] 4-13 Clear 00:00: Ann 00 [facility] ciproflo DA Active U 2020-0 [facility] xacin 4-13 Clear 00:00: Ann 00 [facility] meperidi DA Active U 2020-0 [facility] ne 4-13 Clear 00:00: Ann 00 [facility] Ciproflo Propensi Active Itching [place] xacin ty to 3-27 Methodi adverse 00:00: st reaction 00 s to drug Meperidi Propensi Active Other (See Jono stacy ty to Comments) 3-27 Methodi adverse 00:00: st reaction 00 s to drug Iodine Propensi Active Itching [employer] ty to 4-19 Methodi adverse 00:00: st reaction 00 s to drug Shrimp Propensi Active Itching [employer] ty to 4-19 Methodi adverse 00:00: st reaction 00 s to drug Iodine Adverse Active Info Not [facility] Reaction Available [facility] Social History Social Habit Start Date Stop Date Quantity Comments Source Sex Assigned At [employer] M ethodist Cigarettes smoked 2019-05-29 2019-05-29 Percy Chance current (pack per 00:00:00 00:00:00 day) - Reported Cigarette 2019-05-29 2019-05-29 [place] Method ist pack-years 00:00:00 00:00:00 Alcohol intake 2019-05-29 2019-05-29 Current [facility] thodist 00:00:00 00:00:00 non-drinker of alcohol (finding) History of tobacco 1979-03-08 Current smoker Jono Chance use 00:00:00 Smoking Status Start Date Stop Date Source Former smoker 2019-05-29 00:00:00 2019-05-29 00:00:00 [facility] Chance Medications Ordered Filled Start Stop Current Ordering Indication Dosage Frequency Signature Comments Components Source Medication Medication Date Date Medication? Clinician (SIG) Name Name oseltamivir 2019- 2020- No 30mg Q.[id number] Take 1 [place] (TAMIFLU) 06-12 [id number] capsule Methodi 30 MG 00:00: 23:59 3W ([address] capsule 00 :00 total) by mouth 3 (three) times a week for 3 days. midodrine 2019- 2020- No 20mg Q.[id number] Take 2 [employer] (PROAMATINE 07-10 [id number] tablets Methodi ) 10 MG 00:00: 23:59 3W ([address] tablet 00 :00 total) by mouth 3 (three) times a week for 30 days. polyethylen 2019- No 17g QD Take 17 g [employer] e glycol 06-10 by mouth Method i (MIRALAX) 00:00: 23:[address] 17 gram 00 :00 30 days. packet lisinopriL 2019- No 5mg QD Take 1 [place] (PRINIVIL) 06-10 tablet (5 Met hodi 5 mg tablet 00:00: 23:59 mg total) st 00 :00 by mouth daily for 30 days. insulin NPH 2019-2019- No 6U [facility]D [facility]10 Units Method i 100 unit/mL 00:00: 23:[address] injection 00 :00 skin daily for 30 days. epoetin 2019-2019- No 57688M Q.[id number] Infuse [employer] [place] zaid-epbx 06-10 [id number] 13,000 M ethodi 10,000 00:00: 23:[address] unit/mL 00 :00 a venous solution catheter 3 10,000 (three) Units, times a epoetin week for zaid-epbx 30 days. 3,000 unit/mL solution 3,000 Units injection predniSONE 2019- 2020- No 10mg QD Take 1 [place] (DELTASONE) 06-10 tablet (10 M ethodi 10 mg 00:00: 23:59 mg total) st tablet 00 :00 by mouth daily for 30 days. fexofenadin 2019-0 2020- No 60mg QD Take 1 Yoel ston e (DRAKE) 06-10 03-29 tablet (60 M ethodi 60 MG 00:00: 23:59 mg total) st tablet 00 :00 by mouth daily for 30 days. ALLOPURINOL 2019-0 2020- No 200mg QD Take 200 [place] ORAL 06-09- mg by Methodi 20:45: 00:[address] 47 :00 daily. ASCORBIC 2019- 2020- No 1{tbl} QD Take 1 [place] ACID, 06-09 tablet by Methodi VITAMIN C, 20:45: 00:[address] ORAL 47 :00 daily. cholecalcif 2019- 2020- No 2000U QD Take 2,000 [place] andre, 06-09 Units by Methodi vitamin D3, 20:45: 00:[address] (VITAMIN 47 :00 daily. D3) 2,000 unit capsule capsule ipratropium 2019- 2020- No 2{spray Q12H 2 sprays [place] (ATROVENT) 06-09 } into each Met hodi 0.03 % 20:45: 00:[address] nasal spray 47 :00 every 12 (twelve) hours. loratadine 2019-0 2020- No 10mg QD Take 10 mg [place] (CLARITIN) 06-09 by mouth Meth deepali 10 mg 20:45: 00:[address] tablet 47 :00 nitroglycer 2019- 2020- No .4mg Place 0.4 [place] in 06-09 mg under Methodi (NITROSTAT) 20:45: 00:[address] 0.4 MG SL 47 :00 every 5 tablet (five) minutes as needed for chest pain. midodrine 2019-0 2020- No 20mg Q.[id number] Take 20 mg [place] (PROAMATINE 06-09 [id number] by mouth 3 Methodi ) 10 MG 20:45: 00:00 3W (three) st tablet 47 :00 times a week. omeprazole 2019-0 2020- No 20mg Q.5D Take 20 mg [place] (PriLOSEC) 06-09 by mouth 2 Me thodi 20 MG 20:45: 00:00 (two) st capsule 47 :00 times a day. fluticasone 2019-0 2020- No Inhale. [place] furoate 100 06-09 Methodi mcg/actuati 20:45: 00:00 st on blister 47 :00 with device fluticasone 2020-0 Yes 1{spray QD 1 spray by [employer] (FLONASE) 06-09 } Each Nare Metho di 50 20:45: route st mcg/actuati 43 daily. on nasal spray gabapentin 2020-0 Yes 100mg Q.[id number] Take 100 [place] (NEURONTIN) - [id number] mg by M ethodi 100 mg 20:45: 3D mouth 3 st capsule 43 (three) times a day. amIODarone 2020-0 Yes 100mg QD Take 100 Ho [place] (PACERONE) 2-27 mg by Methodi 200 MG 20:45: mouth st tablet 43 daily. sevelamer 2020-0 Yes 1600mg Q.[id number] Take 1,600 [place] (RENVELA) 2- [id number] mg by Met hodi 800 mg 20:45: 3D mouth 3 st tablet 43 (three) times a day with meals. aspirin 2020-0 Yes 162mg QD Take 162 [place] (ECOTRIN) 2-27 mg by Methodi 81 MG 20:45: mouth st enteric 43 daily. coated tablet ondansetron 2019-0 2020- No 4mg Q8H Take 1 Yoel ston ODT 06-09 tablet (4 Methodi (ZOFRAN-ODT 00:00: 23:59 mg total) st ) 4 MG 00 :00 by mouth disintegrat every 8 ing tablet (eight) hours as needed for nausea or vomiting for up to 30 days. levalbutero 2020-0 2020- No Influenza A 1.25mg Q.[id number] Take 3 mL [employer] [place] l (XOPENEX) 06-09- (H1N1) [id number] (1.25 mg Methodi 1.25 mg/3 00:00: 23:59 7D total) by st mL 00 :00 nebulizati nebulizer on every 4 solution (four) hours for 30 days. ipratropium 2020-0 2020- No Influenza A .5mg Q.[id number] Take 2. 5 [employer] [place] (ATROVENT) 06-09 (H1N1) [id number] mL (0.5 mg Methodi 0.02 % 00:00: 23:59 7D total) by st nebulizer 00 :00 nebulizati solution on every 4 (four) hours for 30 days. insulin 2019-2019- No 0U Q4H Inject [place] lispro 06-09 0-12 Units Method i (HumaLOG) 00:00: 23:[address] 100 unit/mL 00 :00 skin every injection 4 (four) hours for 30 days. heparin 2019-2019- No 1100U/h Infuse [place] sod,pork in 06-09 1,100 Method i 0.45% NaCl 00:00: 23:59 Units/hr st (HEParin, 00 :00 into a porcine, in venous 0.45% NaCl) catheter 25,000 Titrated unit/500 mL for 30 infusion days. docusate 2019-0 2019- No 100mg Q.5D Take 1 [place] sodium 06-09 capsule Methodi (COLACE) 00:00: 23:59 ([address] 100 MG 00 :00 total) by capsule mouth 2 (two) times a day for 30 days. dextrose 2019-0 2020- No 25g Infuse 50 Yoel ston 50% syringe 06-09 mL (25 g Met hodi 00:00: 23:59 total) st 00 :00 into a venous catheter every 20 (twenty) minutes as needed (If blood glucose is 40 mg/dL or LESS) for up to 30 days. dextrose 2019-0 2019- No 12.5g Infuse 25 [place] 50% syringe 06-09 mL (12.5 g M ethodi 00:00: 23:59 total) st 00 :00 into a venous catheter every 20 (twenty) minutes as needed (If blood glucose is between 41-69 mg/dL) for up to 30 days. budesonide 2019- 2020- No Influenza A .5mg Q12H Take 2 mL [place] (PULMICORT) 06-09 (H1N1) (0.5 mg Me thodi 0.5 mg/2 mL 00:00: 23:59 total) by st nebulizer 00 :00 nebulizati solution on every 12 (twelve) hours for 30 days. acetaminoph 2019-0 2020- No 650mg Q6H Insert 1 [place] en 06-09 suppositor Methodi (TYLENOL) 00:00: 23:59 y ([address] 650 MG 00 :00 total) suppository into the rectum every 6 (six) hours as needed for fever (GREATER than 100.4) for up to 30 days. pantoprazol No 40mg Q.5D Take 1 Yoel ston e 06-09 tablet (40 Methodi (PROTONIX) 00:00: 23:59 mg total) s t 40 MG EC 00 :00 by mouth 2 tablet (two) times a day for 30 days. clopidogrel No 75mg QD Take 1 Yoel ston (PLAVIX) 75 09-09 tablet (75 M ethodi mg tablet 00:00: 00:00 mg total) st 00 :00 by mouth daily. traMADol No 50mg Take 50 mg [place] (ULTRAM) 50 06-15 by mouth. Me thodi mg tablet 00:00: 00:00 st 00 :00 predniSONE 2019- No QD daily. [place] (DELTASONE) 04-18 Methodi 10 mg 00:00: 00:00 st tablet 00 :00 Aspirin Aspirin Yes Chris not [facility] Nitroglycer Nitroglycer Yes Chris not [facility] [place] [facility] Allopurinol Allopurinol Yes Chris not [facility] [facility] Vitamin A Vitamin A Yes Chris not [facility] Albuterol Albuterol Yes Chris not [facility] Sulfate Sulfate [place] [facility] Renvela Renvela Yes Chris not [facility] Midodrine Midodrine Yes Chris not [facility] HCl HCl [facility] [facility] Fluticasone Fluticasone Yes Chris not [facility] Propionate Propionate [place] [facility] Ferrous Ferrous Yes Chris not [facility] Sulfate Sulfate [place] [facility] Omeprazole Omeprazole Yes Chris not [facility] Gabapentin Gabapentin Yes Chris not [facility] [facility] clopidogrel clopidogrel Yes Chris not [facility] Ipratropium Ipratropium Yes Chris not [facility] [place] [facility] Prednisone Prednisone Yes Chris not [facility] [facility] Vital Signs Vital Name Observation Time Observation Value Comments Source Heart rate 2019-06-09 19:30:00 86 /min Percy [facility] Respiratory rate 2019-06-09 19:30:00 22 /min Essie boyd [facility] Oxygen saturation in 2019-06-09 19:16:00 100 /min Percy Chance Arterial blood by Pulse oximetry Systolic blood 2019-06-09 18:00:00 131 mm[Hg] Essieto n Gnosticist pressure Diastolic blood 2019-06-09 18:00:00 59 mm[Hg] Chrissie on [facility]ist pressure Body temperature 2019-06-09 17:00:00 36.67 Leslee Essie boyd [facility] Body weight 2019-06-09 06:00:00 124.5 kg Percy Chance BMI 2019-06-09 06:00:00 38.28 kg/m2 [place] [facility] Body height 2019-05-28 09:15:00 180.3 cm Percy Chance Procedures Procedure Date / Time Performing Clinician Source Performed POC GLUCOSE 2019-06-09 16:35:00 Trey Norman Met hodist POC GLUCOSE 2019-06-09 12:23:00 Trey Norman [facility] POC GLUCOSE 2019-06-09 11:19:00 Trey Norman [facility] POC GLUCOSE 2019-06-09 08:08:00 Trey Norman [facility] POC GLUCOSE 2019-06-09 05:00:00 Trey Norman [facility] PARTIAL THROMBOPLASTIN 2019-06-09 04:45:00 Yvette Hernandez on [facility] TIME (PTT) HC COMPLETE BLD COUNT 2019-06-09 04:45:00 Lee Polk [facility]ist W/AUTO DIFF POC GLUCOSE 2019-06-09 02:07:00 Trey Norman [facility] POC GLUCOSE 2019-06-08 20:30:00 Trey Norman [facility] POC GLUCOSE 2019-06-08 17:13:00 Trey Norman [facility] HEMODIALYSIS 2019-06-08 15:06:25 KiloagaDawna ethodist Almita XR CHEST 1 VW PORTABLE 2019-06-08 12:32:38 Norma Welsh [facility] POC GLUCOSE 2019-06-08 12:07:00 Trey Norman [facility]ist POC GLUCOSE 2019-06-08 07:38:00 Trey Norman [facility]ist PARTIAL THROMBOPLASTIN 2019-06-08 05:50:00 Yvette Hernandez on [facility] TIME (PTT) HC COMPLETE BLD COUNT 2019-06-08 05:50:00 Kaylene Watkins [facility] W/AUTO DIFF BASIC METABOLIC PANEL 2019-06-08 05:50:00 Kaylene Watkins [facility] MAGNESIUM LEVEL 2019-06-08 05:50:00 Kaylene Watkins [facility] PHOSPHORUS LEVEL 2019-06-08 05:50:00 Kaylene Watkins on Gnosticist ESTIMATED GFR 2019-06-08 05:50:00 Kaylene Watkins n Gnosticist POC GLUCOSE 2019-06-08 04:26:00 Trey Norman Met [facility]ist POC GLUCOSE 2019-06-08 00:18:00 Trey Norman [facility] POC GLUCOSE 2019-06-07 20:16:00 Trey Norman Met [facility]ist POC GLUCOSE 2019-06-07 16:22:00 Trey Norman Met [facility]ist POC GLUCOSE 2019-06-07 15:50:00 Trey Norman [facility] POC GLUCOSE 2019-06-07 11:39:00 Trey Norman Met [facility]ist ARTERIAL BLOOD GAS 2019-06-07 11:34:00 Micheline Multani [facility] HEMODIALYSIS 2019-06-07 10:44:52 Imani Arita Meth odist Vida POC GLUCOSE 2019-06-07 07:42:00 Trey Norman Met hodist US DUPLEX VENOUS LOWER 2019-06-07 06:20:00 Hernandez, M G Ekaterina [place] [facility] EXTREMITY BILATERAL POC GLUCOSE 2019-06-07 04:27:00 Trey Norman [facility]ist PARTIAL THROMBOPLASTIN 2019-06-07 03:50:00 Yvette Hernandez on [facility]ist TIME (PTT) CBC HEMOGRAM 2019-06-07 03:50:00 Lee Polk ethodist POC GLUCOSE 2019-06-07 00:19:00 Trey Norman [facility] POC GLUCOSE 2019-06-06 20:19:00 Trey oNrman Met hodist POC GLUCOSE 2019-06-06 18:13:00 Trey Norman Met [facility]ist OCCULT BLOOD, STOOL 2019-06-06 17:50:00 Trey Norman Gn[facility]ist POC GLUCOSE 2019-06-06 14:46:00 Trey Norman [facility]ist POC GLUCOSE 2019-06-06 12:21:00 Trey Norman [facility]ist POC GLUCOSE 2019-06-06 08:00:00 Trey Norman [facility]ist POC GLUCOSE 2019-06-06 04:29:00 Trey Norman [facility] HC COMPLETE BLD COUNT 2019-06-06 03:35:00 Tejas Escamilla Gnosticist W/AUTO DIFF Louise MAGNESIUM LEVEL 2019-06-06 03:35:00 Tejas Escamilla ethodist Louise PHOSPHORUS LEVEL 2019-06-06 03:35:00 Tejas Escamilla Gnosticist Louise COMPREHENSIVE METABOLIC 2019-06-06 03:35:00 Tejas Escamilla [facility] PANEL Louise PARTIAL THROMBOPLASTIN 2019-06-06 03:35:00 Yvette Hernandez on Gn[facility]ist TIME (PTT) ESTIMATED GFR 2019-06-06 03:35:00 Yvette Hernandez Meth odist POC GLUCOSE 2019-06-06 00:25:00 Trey Norman Met [facility]ist ARTERIAL BLOOD GAS 2019-06-05 21:42:00 Lee Polk n Gnosticist POC GLUCOSE 2019-06-05 20:16:00 Trey Nomran Met hodist POC GLUCOSE 2019-06-05 17:20:00 Trey Norman Met [facility] POC GLUCOSE 2019-06-05 16:15:00 Trey Norman Met [facility]ist POC GLUCOSE 2019-06-05 12:10:00 Trey Norman [facility]ist XR CHEST 1 VW PORTABLE 2019-06-05 08:59:00 Lee Polk Jono sanchezoliver Gnosticist POC GLUCOSE 2019-06-05 08:18:00 Trey Norman Met [facility]ist HC COMPLETE BLD COUNT 2019-06-05 04:20:00 Tejas Escamilla Gn[facility]ist W/AUTO DIFF Louise MAGNESIUM LEVEL 2019-06-05 04:20:00 Tejas Escamilla ethodist Louise PHOSPHORUS LEVEL 2019-06-05 04:20:00 Tejas Escamilla Gnosticist Louise COMPREHENSIVE METABOLIC 2019-06-05 04:20:00 Tejas Escamilla Gnosticist PANEL Louise PARTIAL THROMBOPLASTIN 2019-06-05 04:20:00 Yvette Hernandez on [facility]ist TIME (PTT) ESTIMATED GFR 2019-06-05 04:20:00 Yvette Hernandez Meth odist POC GLUCOSE 2019-06-05 04:18:00 Trey Norman [facility]ist POC GLUCOSE 2019-06-05 00:57:00 Trey Norman Met [facility]ist TRANSFUSE RED BLOOD CELLS 2019-06-04 22:32:21 Trey Norman Gn[facility]ist TRANSFUSE RED BLOOD CELLS 2019-06-04 21:21:15 Trey Norman Gn[facility]ist POC GLUCOSE 2019-06-04 20:57:00 Trey Norman [facility] POC GLUCOSE 2019-06-04 16:48:00 Trey Norman [facility] PARTIAL THROMBOPLASTIN 2019-06-04 15:15:00 Yvette Hernandez on [facility]osticist TIME (PTT) POC GLUCOSE 2019-06-04 12:13:00 Trey Norman [facility]ist XR CHEST 1 VW PORTABLE 2019-06-04 10:45:44 Tejas Escamilla Gnosticist Louise CBC HEMOGRAM 2019-06-04 08:44:00 Trey Norman [facility] POC GLUCOSE 2019-06-04 07:39:00 Trey Norman [facility] HEMODIALYSIS 2019-06-04 07:32:12 Imani Arita Percy Meth odist Vida HC COMPLETE BLD COUNT 2019-06-04 05:50:00 Andi Tejas joseph Gn[facility]ist W/AUTO DIFF Louise MAGNESIUM LEVEL 2019-06-04 05:50:00 Andi Chandlergarcia Percy Crawford ethodist Louise PHOSPHORUS LEVEL 2019-06-04 05:50:00 Andi Tejas [place] Gnosticist Louise COMPREHENSIVE METABOLIC 2019-06-04 05:50:00 Tejas Escamilla Gn[facility]ist PANEL Louise PARTIAL THROMBOPLASTIN 2019-06-04 05:50:00 Yvette Hernandez on Gnosticist TIME (PTT) ESTIMATED GFR 2019-06-04 05:50:00 Andi Tejas Crawford ethodist Louise SMEAR REVIEW 2019-06-04 05:50:00 Tejas Escamilla ethodist Louise POC GLUCOSE 2019-06-04 04:19:00 Trey Norman [facility] POC GLUCOSE 2019-06-04 00:27:00 Trey Norman [facility] PROTHROMBIN TIME WITH INR 2019-06-03 23:20:00 Yvette Hernandezist PARTIAL THROMBOPLASTIN 2019-06-03 23:20:00 Yvette Hernandez on [facility] TIME (PTT) CBC HEMOGRAM 2019-06-03 23:20:00 Yvette Hernandez Meth odist ANTI XA, UNFRACTIONATED 2019-06-03 23:20:00 Yvette Hernandez Gnosticist POC GLUCOSE 2019-06-03 20:05:00 Trey Norman [facility] CT ANGIOGRAM PE CHEST 2019-06-03 19:51:51 Yvette Hernandez n Gnosticist POC GLUCOSE 2019-06-03 16:44:00 Trey Norman [facility] ECG 12-LEAD 2019-06-03 14:44:00 Tejas Escamilla ethodist Louise D-DIMER 2019-06-03 14:43:00 Yvette Hernandez Meth odist XR CHEST 1 VW PORTABLE 2019-06-03 14:38:39 Tejas Escamilla Gnosticist Louise RESPIRATORY PATHOGEN PANEL 2019-06-03 14:36:00 Pop Escamillapapito Chance Louise ARTERIAL BLOOD GAS 2019-06-03 13:48:00 Andi Tejas sorenson Gnosticist Louise POC GLUCOSE 2019-06-03 12:18:00 Trey Norman [facility] XR CHEST 1 VW PORTABLE 2019-06-03 10:58:27 Bimal Gibbs Gn[facility] POC GLUCOSE 2019-06-03 08:05:00 Trey Norman [facility] POC GLUCOSE 2019-06-03 06:16:00 Trey Norman [facility] HC COMPLETE BLD COUNT 2019-06-03 03:30:00 Trey Norman on Gnosticist W/AUTO DIFF BASIC METABOLIC PANEL 2019-06-03 03:30:00 Kaylene Watkins Gn[facility] ESTIMATED GFR 2019-06-03 03:30:00 Kaylene Watkins Gn[facility]ist POC GLUCOSE 2019-06-03 03:03:00 Trey Norman [facility] POC GLUCOSE 2019-06-02 22:08:00 Trey Norman [facility] POC GLUCOSE 2019-06-02 20:23:00 Trey Norman [facility] POC GLUCOSE 2019-06-02 16:39:00 Trey Norman [facility] ARTERIAL BLOOD GAS 2019-06-02 15:25:00 Radha Diaz on Gnosticist XR CHEST 1 VW PORTABLE 2019-06-02 15:20:00 Radha Diaz Gn[facility] TRANSFUSE RED BLOOD CELLS 2019-06-02 15:17:45 Zoila Welsh Gnosticist POC GLUCOSE 2019-06-02 13:34:00 Trey Norman [facility] TYPE AND SCREEN 2019-06-02 08:34:00 Zoila Welshist PREPARE RBC 2019-06-02 08:34:00 Trey Norman Met [facility]ist CBC HEMOGRAM 2019-06-02 05:20:00 Ad Quintero Meth odist POC GLUCOSE 2019-06-01 22:56:00 Ad Quintero Meth odist POC GLUCOSE 2019-06-01 21:44:00 Ad Quintero Meth odist HEMODIALYSIS 2019-06-01 17:08:11 Zoila Welsh Gn[facility]ist POC GLUCOSE 2019-06-01 17:04:00 Ad Quintero Meth odist CV PYP SCAN FOR CARDIAC 2019-06-01 15:12:30 Ayo Pruett Gnosticist AMYLOIDOSIS POC GLUCOSE 2019-06-01 12:04:00 Ad Quintero Meth odist ECG 12-LEAD 2019-06-01 11:32:51 Vandana Rene Met hodist XR CHEST 1 VW PORTABLE 2019-06-01 11:20:00 Vandana Rene Gnosticist POC GLUCOSE 2019-06-01 07:50:00 Ad Quintero Meth odist KAPPA LAMBDA FREE LIGHT 2019-06-01 05:20:00 Ayo Pruett Gnosticist CHAIN WITH RATIO BASIC METABOLIC PANEL 2019-06-01 05:20:00 Ad Quintero Gnosticist ESTIMATED GFR 2019-06-01 05:20:00 Ad Quintero Meth odist POC GLUCOSE 2019-05-31 21:16:00 Ad Quintero Meth odist ECG 12-LEAD 2019-05-31 17:44:47 Vandana Rene Met hodist BASIC METABOLIC PANEL 2019-05-31 17:33:00 Vandana Rene on Gnosticist MAGNESIUM LEVEL 2019-05-31 17:33:00 Vandana Rene Met [facility]odist ESTIMATED GFR 2019-05-31 17:33:00 Vandana Rene Met hodist POC GLUCOSE 2019-05-31 16:58:[address] Ad Qu[address] Meth odist CT CARDIAC CALCIUM SCORE 2019-05-31 15:35:42 Ayo Pruett Gnosticist POC GLUCOSE 2019-05-31 12:29:00 Ad Quintero Meth odist HEMODIALYSIS 2019-05-31 09:45:19 Zoila Welsh Gn[facility]ist POC GLUCOSE 2019-05-31 07:59:00 Ad Quintero Meth odist T3, FREE 2019-05-31 04:10:00 Jigar Hernandez odgiacomo CBC HEMOGRAM 2019-05-31 04:10:00 Jigar Hernandez BASIC METABOLIC PANEL 2019-05-31 00:00:00 Jigar Hernandez MAGNESIUM LEVEL 2019-05-31 00:00:00 Jigar Hernandez IONIZED CALCIUM 2019-05-31 00:00:00 Jigar Hernandez odist PHOSPHORUS LEVEL 2019-05-31 00:00:00 Jigar Hernandez Met hodist ESTIMATED GFR 2019-05-31 00:00:00 Jigar Hernandez odist POC GLUCOSE 2019-05-30 20:56:00 Ad Quintero TTE COMPLETE, WO CONTRAST, 2019-05-30 19:00:00 Jigar Hernandez W DOPPLER ([id number]) POC GLUCOSE 2019-05-30 17:24:00 Ad Quintero US DUPLEX ARTERIAL UPPER 2019-05-30 17:00:00 Jigar Hernandez EXTREMITY BILATERAL US DUPLEX ARTERIAL LOWER 2019-05-30 15:30:00 Jigar Hernandez EXTREMITY BILATERAL US ANKLE BRACHIAL INDEX 2019-05-30 15:30:00 Jigar Hernandez POC GLUCOSE 2019-05-30 11:29:00 Ad Quintero ARTERIAL BLOOD GAS 2019-05-30 11:24:00 Yvette Hernandez ethodist LDH 2019-05-30 11:05:00 Jigar Hernandez odist POC GLUCOSE 2019-05-30 07:30:00 Ad Quintero XR CHEST 1 VW PORTABLE 2019-05-30 04:10:00 Alba Fine Gnostic[facility] POC GLUCOSE 2019-05-30 03:58:00 Ad Quintero odist URIC ACID LEVEL 2019-05-30 00:50:00 Trey Norman Met [facility] THYROID STIMULATING 2019-05-30 00:50:00 Trey Norman [facility] HORMONE T4, FREE 2019-05-30 00:50:00 Trey Norman [facility] BASIC METABOLIC PANEL 2019-05-30 00:50:00 Alba Fine on [facility] IONIZED CALCIUM 2019-05-30 00:50:00 Alba Fine [facility] MAGNESIUM LEVEL 2019-05-30 00:50:00 Alba Fine Met [facility] PHOSPHORUS LEVEL 2019-05-30 00:50:00 Alba Fine Me thodist ESTIMATED GFR 2019-05-30 00:50:00 Alba Fine Met [facility] CBC WITH PLATELET AND 2019-05-30 00:20:00 Alba [facility] DIFFERENTIAL MANUAL DIFFERENTIAL 2019-05-30 00:20:00 Alba Fine [facility] POC GLUCOSE 2019-05-29 23:45:00 Ad Quintero [facility] POC GLUCOSE 2019-05-29 19:47:00 Ad Quintero [facility] POC GLUCOSE 2019-05-29 16:16:00 Ad Quintero [facility] POC GLUCOSE 2019-05-29 11:23:00 Ad Quintero [facility] HEPARIN PF4 ANTIBODY (IGG) 2019-05-29 09:41:00 Trey Norman [facility] POC GLUCOSE 2019-05-29 07:36:00 Ad Quintero [facility] XR CHEST 1 VW PORTABLE 2019-05-29 04:02:00 Alba Fine [facility] POC GLUCOSE 2019-05-29 04:00:00 Ad Quintero [facility] ECG 12-LEAD 2019-05-29 03:42:45 Jigar Hernandez [facility] HC COMPLETE BLD COUNT 2019-05-29 01:00:00 Al[facility] W/AUTO DIFF BASIC METABOLIC PANEL 2019-05-29 00:33:00 Alba [facility] IONIZED CALCIUM 2019-05-29 00:33:00 Alba [facility] MAGNESIUM LEVEL 2019-05-29 00:33:00 [facility] PHOSPHORUS LEVEL 2019-05-29 00:33:00 Alba Fine [facility] ESTIMATED GFR 2019-05-29 00:33:00 Babatunde Alba Gre[facility] HC COMPLETE BLD COUNT 2019-05-29 00:00:00 Alba [facility] W/AUTO DIFF POC GLUCOSE 2019-05-28 23:52:00 Ad Quintero [facility] POC GLUCOSE 2019-05-28 20:25:00 Ad Quintero [facility] POC GLUCOSE 2019-05-28 16:33:00 Ad Quintero [facility] HEPATITIS B SURFACE 2019-05-28 13:50:00 La Ash [facility] ANTIGEN POC GLUCOSE 2019-05-28 11:30:00 Ad Quintero odist HEMODIALYSIS 2019-05-28 11:17:52 La Ash odist HC COMPLETE BLD COUNT 2019-05-28 10:05:00 Jigar Hernandez [facility] W/AUTO DIFF XR CHEST 1 VW PORTABLE 2019-05-28 10:02:26 Jigar Hernandez [facility] CONSULT CARDIAC REHAB 2019-05-28 09:42:15 Jigar Hernandez [facility] PHASE 1 ECG 12-LEAD 2019-05-28 09:42:01 Jigar Hernandez odist BASIC METABOLIC PANEL 2019-05-28 09:41:00 Jigar Hernandez [facility] MAGNESIUM LEVEL 2019-05-28 09:41:00 Jigar Hernandez odist PHOSPHORUS LEVEL 2019-05-28 09:41:00 Jigar Hernandez hodist IONIZED CALCIUM 2019-05-28 09:41:00 Jigar Hernandez odist PROTHROMBIN TIME WITH INR 2019-05-28 09:41:00 Jigar Hernandez [facility] PARTIAL THROMBOPLASTIN 2019-05-28 09:41:00 Jigar Hernandez [facility] TIME (PTT) TYPE AND SCREEN 2019-05-28 09:41:00 Jigar Hernandez odist ESTIMATED GFR 2019-05-28 09:41:00 Jigar Hernandez odist HEMOGLOBIN A1C 2019-05-28 09:41:00 Jigar Hernandez odist POC GLUCOSE 2019-05-28 09:39:00 Ad Quintero [facility] Plan of Care Planned Activity Planned Date Details Comments Source Future Scheduled 2019-11-12 INFLUENZA VACCINE [place] [facility] 00:00:00 [code = INFLUENZA VACCINE] Future Scheduled 2004-01-13 65+ PNEUMOCOCCAL [place] [facility] 00:00:00 VACCINE (1 of 2 - PCV13) [code = 65+ PNEUMOCOCCAL VACCINE (1 of 2 - PCV13)] Future Scheduled 1989-01-12 SHINGLES VACCINES (#1) [place] [facility] 00:00:00 [code = SHINGLES VACCINES (#1)] Future Scheduled 1949-01-12 DIABETIC FOOT EXAM [place] [facility] 00:00:00 [code = DIABETIC FOOT EXAM] Future Scheduled 1949-01-12 URINE MICROALBUMIN [place] [facility] 00:00:00 [code = URINE MICROALBUMIN] Future Scheduled 1940 DIABETIC RETINAL EYE [facility] [facility] 00:00:00 EXAM [code = DIABETIC RETINAL EYE EXAM] Encounters Start End Encounter Admission Attending Care Care Encounter Source Date/Time Date/Time Type Type Clinicians Facility Department ID 2019-07-18 [facility] [id number] [place] 15:02:00 [facility] 2019-05-28 2019-06-09 Inpatient [facility] [id number] [place] 00:00:00 00:00:00 TREY [address] 2019-06-01 2019-06-01 Outpatient [facility] [id number] [place] 00:00:00 00:00:[address] 2019-06-01 2019-06-01 Outpatient [facility] [id number] [place] 00:00:00 00:00:[address] 2019-03-22 2019-03-22 [facility] [id number] 09:45:00 09:45:00 [facility] ent Clinics Results Test Description Test Time Test Comments Results Result Comments Source GLUBED 2019-08-30 17:19:00 Test Item Value Reference Range Interpretation Comme nts GLUBED (test code = GLUBED) 175 MG/DL 70-110 H Performed by certified 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 [facility] Coronavirus 2019 nCoV [id number] 14:30:00 Test Item Value Reference Range Interpretation Comments Coronavirus 2019 Negative Negative Negative re sults should be nCoV Bedside (test treated a s presumptive and, code = ifinconsistent with COVNONPUIBED) clinical signs and symptoms or necessaryfor patient management, matilde uld be tested with an alternativemole cular assay. Negative result s do not preclude [id number]-[id number] tion and should not be u sed as the sole basis forp atient management deci sions. Negative result s should beconsidered in the context of a patient's recent exposures,histo ry, presence of clinical sig ns and symptoms consis tentwith COVID-19. [id number] 12:08:00 Test Item Value Reference Range Interpretation Comments GLUBED (test code = 204 MG/DL 70-110 H Performe d by certified GLUBED) 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 [facility] [id number] 08:21:00 Test Item Value Reference Range Interpretation Comments GLUBED (test code = 128 MG/DL 70-110 H Performe d by certified GLUBED) 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 [facility] [id number] 20:23:00 Test Item Value Reference Range Interpretation Comments GLUBED (test code = 315 MG/DL 70-110 H Performe d by certified GLUBED) 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 [facility] [id number] 16:00:00 Test Item Value Reference Range Interpretation Comments GLUBED (test code = 189 MG/DL 70-110 H Performe d by certified GLUBED) 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 [facility] ACUTE HEPATITIS [id number] 13:28:00 Test Item Value Reference Range Interpretation Comments AB HEPATITIS A IGM (test NON REACTIVE INDEX NON REACT. code = HAVMAB) AG HEPATITIS B SURFACE NON REACTIVE INDEX NonReactive (test code = HBSAG) AB HEPATITIS B CORE IGM NON REACTIVE INDEX NON REACT. (test code = HBCMAB) AB HEPATITIS C (test code NON REACTIVE INDEX NON REACT. = HCVAB) ACUTE HEPATITIS [id number] 13:24:00 Test Item Value Reference Range Interpretation Comments AB HEPATITIS A IGM (test INDEX NON REACT. code = HAVMAB) AG HEPATITIS B SURFACE NON REACTIVE INDEX NonReactive (test code = HBSAG) AB HEPATITIS B CORE IGM NON REACTIVE INDEX NON REACT. (test code = HBCMAB) AB HEPATITIS C (test code NON REACTIVE INDEX NON REACT. = HCVAB) ACUTE HEPATITIS [id number] 12:57:00 Test Item Value Reference Range Interpretation Comments AB HEPATITIS A IGM (test INDEX NON REACT. code = HAVMAB) AG HEPATITIS B SURFACE NON REACTIVE INDEX NonReactive (test code = HBSAG) AB HEPATITIS B CORE IGM INDEX NON REACT. (test code = HBCMAB) AB HEPATITIS C (test code INDEX NON REACT. = HCVAB) [id number] 12:51:00 Test Item Value Reference Range Interpretation Comments GLUBED (test code = 195 MG/DL 70-110 H Performe d by certified GLUBED) 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 [facility] [id number] 08:40:00 Test Item Value Reference Range Interpretation Comments GLUBED (test code = 101 MG/DL 70-110 N Performe d by certified GLUBED) 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 [facility] [id number] 20:21:00 Test Item Value Reference Range Interpretation Comments GLUBED (test code = 169 MG/DL 70-110 H Performe d by certified GLUBED) 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 [facility] [id number] 17:38:00 Test Item Value Reference Range Interpretation Comments GLUBED (test code = 135 MG/DL 70-110 H Performe d by certified GLUBED) 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 [facility] [id number] 06:12:00 Test Item Value Reference Range Interpretation Comments GLUBED (test code = 136 MG/DL 70-110 H Performe d by certified GLUBED) 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 [facility] [id number] 06:12:00 Test Item Value Reference Range Interpretation Comments GLUBED (test code = 128 MG/DL 70-110 H Performe d by certified GLUBED) 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 [facility] B-TYPE NATRIURETIC [id number] 21:19:00 Test Item Value Reference Range Interpretation Comments B-TYPE NATRIURETIC PEPTIDE (test 583.7 PG/ML 0-100 H code = BNP) CBC W/AUTO [id number] 20:47:00 Test Item Value Reference Range Interpretation Comments WHITE BLOOD CELL (test code = 9.55 x10 3/uL 4.5-11.0 N WBC) RED BLOOD CELL (test code = 3.67 x10 6/uL 4.00-5.60 L RBC) HEMOGLOBIN (test code = HGB) 11.5 g/dL 12.5-16.9 L HEMATOCRIT (test code = HCT) 38.1 % 37.5-50.7 N MEAN CELL VOLUME (test code = 103.8 fL 81.0-99.0 H MCV) MEAN CELL HGB (test code = MCH) 31.3 pg 27.0-33.0 N MEAN CELL HGB CONCETRATION 30.2 g/dL 33.0-37.0 L (test code = MCHC) RED CELL DISTRIBUTION WIDTH CV 19.0 % 11.5-14.5 H (test code = RDW) RED CELL DISTRIBUTION WIDTH SD 73.4 fL 37.0-54.0 H (test code = RDW-SD) PLATELET COUNT (test code = 119 x10 3/uL 150-400 L PLT) MEAN PLATELET VOLUME (test code 11.1 fL 7.0-9.0 H = MPV) NEUTROPHIL % (test code = NT%) 76.7 % 56.0-77.0 N IMMATURE GRANULOCYTE % (test 0.5 % 0.0-2.0 N code = IG%) LYMPHOCYTE % (test code = LY%) 11.3 % 14.0-32.0 L MONOCYTE % (test code = MO%) 10.4 % 4.8-9.0 H EOSINOPHIL % (test code = EO%) 0.7 % 0.3-3.7 N BASOPHIL % (test code = BA%) 0.4 % 0.0-2.0 N NUCLEATED RBC % (test code = 0.0 % 0-0 N NRBC%) NEUTROPHIL # (test code = NT#) 7.32 x10 3/uL 2.0-7.6 N IMMATURE GRANULOCYTE # (test 0.05 x10 3/uL 0.00-0.03 H code = IG#) LYMPHOCYTE # (test code = LY#) 1.08 x10 3/uL 1.0-3.8 N MONOCYTE # (test code = MO#) 0.99 x10 3/uL 0.1-0.8 H EOSINOPHIL # (test code = EO#) 0.07 x10 3/uL 0.0-0.2 N BASOPHIL # (test code = BA#) 0.04 x10 3/uL 0.0-0.2 N NUCLEATED RBC # (test code = 0.00 x10 3/uL 0.0-0.1 N NRBC#) MANUAL DIFF REQUIRED (test code NO = MDASHLYN) - CT NECK W/O [id number] 20:05:00 Name: ANDREA PEREZ [facility] : 1940 Age/S: 79 / M [address] [place] [address] Unit #: [id number] Loc: Cem [id number] Phys: Andrew Velez MD Acct: [id number] Dis Date: Status: REG ER PHONE #: [phone] Exam Date: 08/27/20191943 FAX #: [phone] Reason: neck swelling EXAMS: CPTCODE: [id number] CT NECK W/O CONTRAST 52351 Clinical Indication: Neck swelling; Comparison: None Technique: CT of the neck is performedwith a multidetector CT. Coronal and sagittal reconstructions were obtained. CONTRAST:None, which limits assessment. CT imaging performed at this location utilizes radiation dose optimization techniques which include one or more of the following: -Automated exposure control -Adjustment of the mA and/or kV according to patient size -Use of iterative reconstruction technique CT Radiation Dose DLP 358.8 mGy-cm FINDINGS: SOFT TISSUES: There are no neck masses noted. There are no fluid collections or definite abscesses. LYMPH NODES: There is no submandibular lymphadenopathy. There is no jugular chain or posterior cervical chain lymphadenopathy or masses. The nasopharyngeal adenoids and tonsillar pillar regions appear unremarkable. SALIVARY GLANDS: The submandibular and parotid glands are unremarkable. PARANASAL SINUSES AND AIRWAY: Moderate polypoidal mucosal thickening in the visualized right maxillary sinus. The nasopharyngeal, oropharyngeal, supraglottic and infraglottic airway is unremarkable. SUPRAHYOID NECK: Tracheostomy tube in position. Right IJV central venous line noted. The oropharynx, oral cavity, parapharyngeal space, and retropharyngeal space are normal on this limited noncontrast CT. INFRAHYOID NECK: The valleculae and piriform sinuses are normal. The larynx, hypopharynx, epiglottis and supraglottis are normal on this limited noncontrast CT. ORBITS: The visualized orbits are unremarkable. VASCULAR STRUCTURES: Patchy atherosclerotic calcifications along the bilateral carotid bifurcations. The jugular veins and carotid vessels are unremarkable. OSSEOUS STRUCTURES: Degenerative changes in the cervical spine. There are no fractures or dislocations. There are no lucencies at the bases PAGE 1 Signed Report (CONTINUED) Name: ANDREA PEREZ [facility] : 1940 Age/S: 79 / M [address] [place] [address] Blvd U nit #: [id number] Loc: [place] [address] Phys: Andrew Velez MD Acct: [id number] Dis Date: Status: REG ER PHONE #: [phone] Exam Date: 08/27/20191943 FAX #: [phone] Reason: neck swelling EXAMS: CPT CODE: [id number] CT NECK W/O CONTRAST 18281 <Continued> of the mandibular teeth to suggest abscess. There are no radiopaque foreign bodies noted. THYROID GLANDS: The thyroid lobes are symmetric and there are no lesions. VISUALIZED LUNG APICES: There are no pulmonary masses or consolidation. If there is further concern for neck masses or malignancy, postcontrast neck CT, PET/CT imaging or MRI of the neck should be performed for complete assessment. IMPRESSION: 1. No focal fluid collection, neck lymphadenopathy or mass. 2. Tracheostomy tube in position. 3. Right maxillary sinusitis. SL: APATIL-H at 2004 Reported and signed by: Luna Jimenez M.D. CC: Andrew Velez MD Technologist:RT Marcia(R)(CT) CTDI: DLP: Trnscb Date/Time: 08/27/2019(2004) [email or web address] Orig Print D/T: S: 08/27/2019 (2008) PAGE 2 Signed ReportBASIC METABOLIC [id number] 19:20:00 Test Item Value Reference Range Interpretation Comments SODIUM (test code = NA) 135 mEq/L 134-147 N POTASSIUM (test code = 3.4 mEq/L 3.4-5.0 N K) CHLORIDE (test code = 102 mEq/L 100-108 N CL) CARBON DIOXIDE (test 25 mEq/L 21-33 N code = CO2) ANION GAP (test code = 11 0-20 N GAP) GLUCOSE (test code = 128 mg/dL 70-110 H GLU) BLOOD UREA NITROGEN 22 mg/dL 7-18 H (test code = BUN) GLOMERULAR FILTRATION 9.1 70-80 L Units of measure = RATE (test code = GFR) ml/mi n/1.73 m2 CREATININE (test code = 6.0 mg/dL 0.6-1.3 H CREAT) CALCIUM (test code = 8.7 mg/dL 8.0-10.5 N CA) HEPATIC FUNCTION [id number] 19:20:00 Test Item Value Reference Range Interpretation Comments TOTAL PROTEIN (test code = PROT) 7.6 g/dL 6.4-8.2 N ALBUMIN (test code = ALB) 3.10 g/dL 3.4-5.0 L BILIRUBIN TOTAL (test code = 0.3 MG/DL <1.5 N BILT) BILIRUBIN DIRECT (test code = < 0.10 MG/DL 0.0-0.30 N BILD) BILIRUBIN INDIRECT (test code = 0.20 MG/DL BILIND) SGOT/AST (test code = AST) 12 IUnit/L 15-37 L SGPT/ALT (test code = ALT) 15 IUnit/L 15-65 N ALKALINE PHOSPHATASE TOTAL (test 127 IUnit/L 20-125 H code = ALKP) [id number] 19:20:00 Test Item Value Reference Range Interpretation Comments LIPASE (test code = LIP) 259 IUnit/L 73-393 N [id number] 19:20:00 Test Item Value Reference Range Interpretation Comments TROPONIN-I 0.033 ng/mL 0.000-0.045 N Negative: <= (test code = 0.045 Positive: TROPI) >= 0.046 Correl ation with serial results, other cardiac markers andclin ical findings is necessary to determine the clinicalsignifi cance of this result. Results using different metho dologies should not be c omparedto one another as latanya titative results may ana y by method. BASIC METABOLIC [id number] 19:19:00 Test Item Value Reference Range Interpretation Comments SODIUM (test code = NA) mEq/L 134-147 POTASSIUM (test code = K) mEq/L 3.4-5.0 CHLORIDE (test code = CL) mEq/L 100-108 CARBON DIOXIDE (test code = CO2) mEq/L 21-33 ANION GAP (test code = GAP) 0-20 GLUCOSE (test code = GLU) mg/dL 70-110 BLOOD UREA NITROGEN (test code = BUN) mg/dL 7-18 GLOMERULAR FILTRATION RATE (test code 70-80 = GFR) CREATININE (test code = CREAT) mg/dL 0.6-1.3 CALCIUM (test code = CA) mg/dL 8.0-10.5 HEPATIC FUNCTION [id number] 19:19:00 Test Item Value Reference Range Interpretation Comments TOTAL PROTEIN (test code = PROT) g/dL 6.4-8.2 ALBUMIN (test code = ALB) g/dL 3.4-5.0 BILIRUBIN TOTAL (test code = BILT) MG/DL <1.5 BILIRUBIN DIRECT (test code = BILD) MG/DL 0.0-0.30 SGOT/AST (test code = AST) IUnit/L 15-37 SGPT/ALT (test code = ALT) IUnit/L 15-65 ALKALINE PHOSPHATASE TOTAL (test IUnit/L 20-125 code = ALKP) [id number] 19:19:00 Test Item Value Reference Range Interpretation Comments LIPASE (test code = LIP) IUnit/L 73-393 [id number] 19:19:00 Test Item Value Reference Range Interpretation Comments TROPONIN-I 0.033 ng/mL 0.000-0.045 N Negative: <= (test code = 0.045 Positive: TROPI) >= 0.046 Correl ation with serial results, other cardiac markers andclin ical findings is necessary to determine the clinicalsignifi cance of this result. Results using different metho dologies should not be c omparedto one another as latanya titative results may ana y by method. - XR CHEST 1 [id number] 18:26:00 FAX: Andrew Velez MD [phone] Loco: St: REG Name: ANDREA PEREZ [facility] : 1940 Age/S: 79/M [address] [place] [address] Unit#: [id number] Loc: [address] [place] [address] Phys: Andrew Velez MD Acct: [id number] Dis Date: Status: REG ER PHONE #: [phone] Exam Date: 08/27/20191811 FAX #: [phone] Reason: SOB EXAMS: CPT CODE: [id number] XR CHEST 1 V 44221 Portable single view AP chest INDICATION: Shortness of breath. Comparison: 07/25/2019 chest radiograph. FINDINGS: Multilead right side transvenous pacing device is seen. Right chest dialysis catheter tips project over the lower third superior vena cava shadow. Tracheostomy tip projects over trachea. Cardiac mediastinal silhouette is enlarged and stable with partially calcified aorta. The lungs are clear. No pleural effusion identified. No acute bony finding identified. Vascularstent over the left axilla is once again seen. IMPRESSION: No evidence for acute cardiopulmonary disease. SL: SG-H ElectronicallySigned by Estelita Raza on 08/27/2019 at 182 Reported and signed by: Cliff Raza M.D. CC: Andrew Velez MD Technologist: RT Rivera(R) Trnscrd Date/Time/By: 08/27/2019 (1825) : By: [email or web address] Orig Print D/T: S: 08/27/2019 (1828) PAGE 1 Signed [id number] 12:06:00 Test Item Value Reference Range Interpretation Comments GLUBED (test code = 174 MG/DL 70-110 H Performe d by certified GLUBED) 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 [facility] [id number] 08:04:00 Test Item Value Reference Range Interpretation Comments GLUBED (test code = 177 MG/DL 70-110 H Performe d by certified GLUBED) 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 [facility] [id number] 21:17:00 Test Item Value Reference Range Interpretation Comments GLUBED (test code = 231 MG/DL 70-110 H Performe d by certified GLUBED) 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 [facility] [id number] 17:24:00 Test Item Value Reference Range Interpretation Comments GLUBED (test code = 123 MG/DL 70-110 H Performe d by certified GLUBED) 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 [facility] BASIC METABOLIC [id number] 15:59:00 Test Item Value Reference Range Interpretation Comments SODIUM (test code = NA) 135 mEq/L 134-147 N POTASSIUM (test code = 3.8 mEq/L 3.4-5.0 N K) CHLORIDE (test code = 100 mEq/L 100-108 N CL) CARBON DIOXIDE (test 30 mEq/L 21-33 N code = CO2) ANION GAP (test code = 9 0-20 N GAP) GLUCOSE (test code = 134 mg/dL 70-110 H GLU) BLOOD UREA NITROGEN 20 mg/dL 7-18 H (test code = BUN) GLOMERULAR FILTRATION 16.9 70-80 L Units of measure = RATE (test code = GFR) ml/mi n/1.73 m2 CREATININE (test code = 3.5 mg/dL 0.6-1.3 H CREAT) CALCIUM (test code = 8.1 mg/dL 8.0-10.5 N CA) CBC W/AUTO [id number] 15:41:00 Test Item Value Reference Range Interpretation Comments WHITE BLOOD CELL (test code = 11.01 x10 3/uL 4.5-11.0 H WBC) RED BLOOD CELL (test code = 2.42 x10 6/uL 4.00-5.60 L RBC) HEMOGLOBIN (test code = HGB) 7.3 g/dL 12.5-16.9 L HEMATOCRIT (test code = HCT) 23.5 % 37.5-50.7 L MEAN CELL VOLUME (test code = 97.1 fL 81.0-99.0 N MCV) MEAN CELL HGB (test code = 30.2 pg 27.0-33.0 N MCH) MEAN CELL HGB CONCETRATION 31.1 g/dL 33.0-37.0 L (test code = MCHC) RED CELL DISTRIBUTION WIDTH CV 17.2 % 11.5-14.5 H (test code = RDW) RED CELL DISTRIBUTION WIDTH SD 60.4 fL 37.0-54.0 H (test code = RDW-SD) PLATELET COUNT (test code = 137 x10 3/uL 150-400 L PLT) MEAN PLATELET VOLUME (test 11.6 fL 7.0-9.0 H code = MPV) NEUTROPHIL % (test code = NT%) 79.3 % 56.0-77.0 H IMMATURE GRANULOCYTE % (test 0.5 % 0.0-2.0 N code = IG%) LYMPHOCYTE % (test code = LY%) 9.5 % 14.0-32.0 L MONOCYTE % (test code = MO%) 9.9 % 4.8-9.0 H EOSINOPHIL % (test code = EO%) 0.6 % 0.3-3.7 N BASOPHIL % (test code = BA%) 0.2 % 0.0-2.0 N NUCLEATED RBC % (test code = 0.4 % 0-0 H NRBC%) NEUTROPHIL # (test code = NT#) 8.73 x10 3/uL 2.0-7.6 H IMMATURE GRANULOCYTE # (test 0.05 x10 3/uL 0.00-0.03 H code = IG#) LYMPHOCYTE # (test code = LY#) 1.05 x10 3/uL 1.0-3.8 N MONOCYTE # (test code = MO#) 1.09 x10 3/uL 0.1-0.8 H EOSINOPHIL # (test code = EO#) 0.07 x10 3/uL 0.0-0.2 N BASOPHIL # (test code = BA#) 0.02 x10 3/uL 0.0-0.2 N NUCLEATED RBC # (test code = 0.04 x10 3/uL 0.0-0.1 N NRBC#) MANUAL DIFF REQUIRED (test NO code = MDIFF) [id number] 12:16:00 Test Item Value Reference Range Interpretation Comments GLUBED (test code = 154 MG/DL 70-110 H Performe d by certified GLUBED) 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 [facility] [id number] 11:41:00 Test Item Value Reference Range Interpretation Comments HGBA1C% (test code = HGBA1C%) 5.3 %A1C 4.8-6.0 N COMMENTS: use existing specimenCBC W/AUTO [id number] 10:42:00 Test Item Value Reference Range Interpretation Comments WHITE BLOOD CELL (test code = 11.82 x10 3/uL 4.5-11.0 H WBC) RED BLOOD CELL (test code = 2.28 x10 6/uL 4.00-5.60 L RBC) HEMOGLOBIN (test code = HGB) 6.9 g/dL 12.5-16.9 L HEMATOCRIT (test code = HCT) 22.2 % 37.5-50.7 L MEAN CELL VOLUME (test code = 97.4 fL 81.0-99.0 N MCV) MEAN CELL HGB (test code = 30.3 pg 27.0-33.0 N MCH) MEAN CELL HGB CONCETRATION 31.1 g/dL 33.0-37.0 L (test code = MCHC) RED CELL DISTRIBUTION WIDTH CV 17.1 % 11.5-14.5 H (test code = RDW) RED CELL DISTRIBUTION WIDTH SD 60.4 fL 37.0-54.0 H (test code = RDW-SD) PLATELET COUNT (test code = 121 x10 3/uL 150-400 L PLT) MEAN PLATELET VOLUME (test 11.9 fL 7.0-9.0 H code = MPV) NEUTROPHIL % (test code = NT%) 82.8 % 56.0-77.0 H IMMATURE GRANULOCYTE % (test 0.4 % 0.0-2.0 N code = IG%) LYMPHOCYTE % (test code = LY%) 6.4 % 14.0-32.0 L MONOCYTE % (test code = MO%) 10.0 % 4.8-9.0 H EOSINOPHIL % (test code = EO%) 0.3 % 0.3-3.7 N BASOPHIL % (test code = BA%) 0.1 % 0.0-2.0 N NUCLEATED RBC % (test code = 0.3 % 0-0 H NRBC%) NEUTROPHIL # (test code = NT#) 9.78 x10 3/uL 2.0-7.6 H IMMATURE GRANULOCYTE # (test 0.05 x10 3/uL 0.00-0.03 H code = IG#) LYMPHOCYTE # (test code = LY#) 0.76 x10 3/uL 1.0-3.8 L MONOCYTE # (test code = MO#) 1.18 x10 3/uL 0.1-0.8 H EOSINOPHIL # (test code = EO#) 0.04 x10 3/uL 0.0-0.2 N BASOPHIL # (test code = BA#) 0.01 x10 3/uL 0.0-0.2 N NUCLEATED RBC # (test code = 0.04 x10 3/uL 0.0-0.1 N NRBC#) MANUAL DIFF REQUIRED (test NO code = MDIFF) ACUTE HEPATITIS [id number] 08:09:00 Test Item Value Reference Range Interpretation Comments AB HEPATITIS A IGM (test NON REACTIVE INDEX NON REACT. code = HAVMAB) AG HEPATITIS B SURFACE NON REACTIVE INDEX NonReactive (test code = HBSAG) AB HEPATITIS B CORE IGM NON REACTIVE INDEX NON REACT. (test code = HBCMAB) AB HEPATITIS C (test code NON REACTIVE INDEX NON REACT. = HCVAB) COMMENTS: At start of hemodialysisAB HEPATITIS B [id number] 08:09:00 Test Item Value Reference Range Interpretation Comments AB HEPATITIS B < 3.1 mIU/mL Immunity>9.9 L Status of I mmunity SURFACE (test code = HBSAB) Anti-HBs Level --- I ncons istent with Imm unity 0.0 - 9.9Consis tent with Immunity >9.9Performed A t: HD [facility] [address] [id number] Robi Hinton MD Ph:[phone] COMMENTS: At start of [id number] 07:15:00 Test Item Value Reference Range Interpretation Comments GLUBED (test code = 131 MG/DL 70-110 H Performe d by certified GLUBED) 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 [facility] [id number] 20:07:00 Test Item Value Reference Range Interpretation Comments GLUBED (test code = 199 MG/DL 70-110 H Performe d by certified GLUBED) 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 [facility] [id number] 16:34:00 Test Item Value Reference Range Interpretation Comments GLUBED (test code = 196 MG/DL 70-110 H Performe d by certified GLUBED) 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 [facility] - XR FLUOROSCOPY 0-60 [id number] 16:12:00 FAX: Davie Courtney [phone] Loco: St: ADM FAX: Marie SpencerarMMarta [phone] Name: ANDREA PEREZ [facility] : 1940 Age/S: 79/M [address] [place] [address] Unit #: [id number] Loc: G.5529 [place] [address] Phys: Alexandr Kwon MD Acct: [id number] Dis Date: Status: ADM IN PHONE #: [phone] Exam Date: 07/27/2019 1130 FAX #: [phone] Reason: LT AV GRAFT MALFUNCTION EXAMS: CPT CODE: [id number] XR FLUOROSCOPY 0-60 MIN 53311 Intraprocedural fluoroscopy was provided by the Department of Radiology. Any images obtained were interpreted by the surgeon intraoperatively. FLUOROSCOPY TIME: 1 minute 21 seconds REFERENCE AIR KERMA : 15.0 mGy SL: [id number] at 1612 Reported and signed by: Torrey Yan M.D. 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 code = HAVMAB) AG HEPATITIS B SURFACE NON REACTIVE INDEX NonReactive (test code = HBSAG) AB HEPATITIS B CORE IGM NON REACTIVE INDEX NON REACT. (test code = HBCMAB) AB HEPATITIS C (test code NON REACTIVE INDEX NON REACT. = HCVAB) COMMENTS: At start of hemodialysisAB HEPATITIS B [id number] 14:02:00 Test Item Value Reference Range Interpretation Comments AB HEPATITIS B SURFACE (test code = HBSAB) COMMENTS: At start of hemodialysisACUTE HEPATITIS [id number] 13:40:00 Test Item Value Reference Range Interpretation Comments AB HEPATITIS A IGM (test INDEX NON REACT. code = HAVMAB) AG HEPATITIS B SURFACE NON REACTIVE INDEX NonReactive (test code = HBSAG) AB HEPATITIS B CORE IGM INDEX NON REACT. (test code = HBCMAB) AB HEPATITIS C (test code INDEX NON REACT. = HCVAB) COMMENTS: At start of hemodialysisAB HEPATITIS B [id number] 13:40:00 Test Item Value Reference Range Interpretation Comments AB HEPATITIS B SURFACE (test code = HBSAB) COMMENTS: At start of hemodialysis- DUP LE ART UNI/[id number] 11:49:00 Name: ANDREA PEREZ [facility] : 1940 Age/S: 79 / M [address] [place] [address] Unit #: [id number] Loc: [place], [id number] Phys: Alexandr Kwon MD Acct: [id number] Dis Date: Status: ADM IN PHONE #: [phone] Exam Date: 07/26/2019 1032 FAX #: [phone] Reason: right foot non-healing wound EXAMS: CPTCODE: [id number] [facility] [employer] UNI/LTD 50697 RIGHT LOWER EXTREMITY ARTERIAL DOPPLER 07/26/2019 AT 1013 HOURS. CLINICAL HISTORY: Nonhealing rightfoot wound. COMPARISONS: None relevant. FINDINGS: Duplex sonographic evaluation of the bilateral lower extremity arterial circulation was performed. RIGHT SIDE: Triphasic waveforms are seen in the right common femoral, superficial femoral and popliteal artery. Monophasic waveforms are seen in the right posterior tibialis and dorsalis pedis artery. PEAK SYSTOLIC VELOCITIES: BENEFITS ANALYST: 97 cm/s Femoral artery: 101 cm/s Popliteal: 42 cm/s Posterior tibialis: 29 cm/s Dorsalis pedis artery: 12 cm/s. IMPRESSION: 1. Severe right trifurcation atherosclerosis. 2. Nearly 60% drop in peak systolic velocities between right femoral and popliteal artery with preserved popliteal triphasic waveforms. Suspect flow-limiting stenosis at distal popliteal level. SL: [id number] at 1149 Reported and signed by: Desean Gong M.D. 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 [facility] BASIC METABOLIC [id number] 08:33:00 Test Item Value Reference Range Interpretation Comments SODIUM (test code = NA) 138 mEq/L 134-147 N POTASSIUM (test code = 3.8 mEq/L 3.4-5.0 N K) CHLORIDE (test code = 102 mEq/L 100-108 N CL) CARBON DIOXIDE (test 25 mEq/L 21-33 N code = CO2) ANION GAP (test code = 15 0-20 N GAP) GLUCOSE (test code = 148 mg/dL 70-110 H GLU) BLOOD UREA NITROGEN 47 mg/dL 7-18 H (test code = BUN) GLOMERULAR FILTRATION 7.7 70-80 L Units of measure = RATE (test code = GFR) ml/mi n/1.73 m2 CREATININE (test code = 6.9 mg/dL 0.6-1.3 H CREAT) CALCIUM (test code = 8.3 mg/dL 8.0-10.5 N CA) [id number] 08:33:00 Test Item Value Reference Range Interpretation Comments MAGNESIUM (test code = MAG) 2.50 mg/dL 1.8-2.4 H [id number] 08:10:00 Test Item Value Reference Range Interpretation Comments GLUBED (test code = 172 MG/DL 70-110 H Performe d by certified GLUBED) 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 [facility] CBC W/AUTO [id number] 06:08:00 Test Item Value Reference Range Interpretation Comments WHITE BLOOD CELL (test code = 11.64 x10 3/uL 4.5-11.0 H WBC) RED BLOOD CELL (test code = 2.68 x10 6/uL 4.00-5.60 L RBC) HEMOGLOBIN (test code = HGB) 8.1 g/dL 12.5-16.9 L HEMATOCRIT (test code = HCT) 26.5 % 37.5-50.7 L MEAN CELL VOLUME (test code = 98.9 fL 81.0-99.0 N MCV) MEAN CELL HGB (test code = 30.2 pg 27.0-33.0 N MCH) MEAN CELL HGB CONCETRATION 30.6 g/dL 33.0-37.0 L (test code = MCHC) RED CELL DISTRIBUTION WIDTH CV 17.2 % 11.5-14.5 H (test code = RDW) RED CELL DISTRIBUTION WIDTH SD 61.4 fL 37.0-54.0 H (test code = RDW-SD) PLATELET COUNT (test code = 131 x10 3/uL 150-400 L PLT) MEAN PLATELET VOLUME (test 12.1 fL 7.0-9.0 H code = MPV) NEUTROPHIL % (test code = NT%) 80.1 % 56.0-77.0 H IMMATURE GRANULOCYTE % (test 0.6 % 0.0-2.0 N code = IG%) LYMPHOCYTE % (test code = LY%) 7.9 % 14.0-32.0 L MONOCYTE % (test code = MO%) 10.1 % 4.8-9.0 H EOSINOPHIL % (test code = EO%) 1.0 % 0.3-3.7 N BASOPHIL % (test code = BA%) 0.3 % 0.0-2.0 N NUCLEATED RBC % (test code = 0.2 % 0-0 H NRBC%) NEUTROPHIL # (test code = NT#) 9.32 x10 3/uL 2.0-7.6 H IMMATURE GRANULOCYTE # (test 0.07 x10 3/uL 0.00-0.03 H code = IG#) LYMPHOCYTE # (test code = LY#) 0.92 x10 3/uL 1.0-3.8 L MONOCYTE # (test code = MO#) 1.17 x10 3/uL 0.1-0.8 H EOSINOPHIL # (test code = EO#) 0.12 x10 3/uL 0.0-0.2 N BASOPHIL # (test code = BA#) 0.04 x10 3/uL 0.0-0.2 N NUCLEATED RBC # (test code = 0.02 x10 3/uL 0.0-0.1 N NRBC#) MANUAL DIFF REQUIRED (test NO code = MDIFF) PROTHROMBIN [id number] 05:27:00 Test Item Value Reference Range Interpretation Comments PROTHROMBIN TIME 13.4 SECONDS 9.3-12.9 H PATIENT (test code = PTP) INTERNATIONAL NORMAL 1.2 0.8-1.2 N TARGET RATIO (test code = INR BY IN DICATION INR) Indication INR1. Prophyl axis of venous thrombos is 2.0 - 3. 0 (orthopedic saud morenita), Prophylaxis of venous thrombos is (other than hig h-risk surgery), Zeny tment of Deep Vein Thrombosis/Pulm onary Embolism, Preve ntion of systemic emb olism - Tissue heart va lves, Acute Myocardia l Infarction (to prevent systemic embo lism), Valvular heart disease, Atri al Fibrillation, Bileaflet mecha nical valve in aortic position.2. Mec hanical prosthetic valv es (high risk), 2.5 - 3.5 Presence of Lupus Anticoagu lant or Antiphospholi pid Antibodies, Pre vention of systemic e mbolism - Acute Myocard ial Infarction (t o prevent recurre nt infarct). 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 Status post IJ tunneled dialysis catheter. Comparison: None. FINDINGS: Tracheostomy tip projects over the tracheal region. Multilead right chest transvenous pacing device is seen. A right chest dialysis catheter has been placed with tips projecting over the lower third of the superior vena cava shadow. A left neck vascular catheter is placed with tip projecting over the proximal third of the superior vena cava shadow. The cardiomediastinal silhouette is enlarged. The aortais partially calcified. Mild central pulmonary vascular congestion is present. Bibasilar linear atelectasis present. No pleural effusion identified. No acute bony finding identified. IMPRESSION: 1. Support tubes and lines as described. 2. Centralpulmonary vascular congestion with mild bilateral atelectasis. SL: [id number] at 1811 Reported and signed by: Cliff Raza M.D. CC: Davie Lee MD; Alexandr Kwon MD Technologist: RT Lizet(R) Trnscrd Date/Time/By: 07/25/2019 (1810) : By: [email or web address] Orig Print D/T: S: 07/25/2019 (1814) PAGE 1 Signed Report- XR FLUOROSCOPY 0-60 [id number] 17:51:00 FAX: Davie Courtney [phone] Loco: St: ADM FAX: Jesus Spencer [phone] Name: ANDREA PEREZ [facility] : 1940 Age/S: 79/M [address] [place] [address] Unit #: [id number] Loc: G.5529 [place] [address] Phys: Alexandr Kwon MD Acct: G [id number] Dis Date: Status: ADM IN PHONE #: [phone] Exam Date: 07/25/2019 1645 FAX #: [phone] Reason: MALFUNCTION LT ARM AV GRAFT EXAMS: CPT CODE: [id number] XR FLUOROSCOPY 0-60 MIN 61812 Fluoroscopic guidance was provided by the radiology department for intraoperative procedure. Right neck vascular catheter is placed with tips projecting over the lower third of superior vena cava shadow. Refer to the performing surgeon's note for additional intraoperative findings and impr essions. Fluoroscopy time: 17 seconds Reference Air Kerma: 4.2 mGy SL: SG-H at 1751 Reported and signed by: Estelita Savage CC: Davie Lee MD; Alexandr Kwon MD Technologist: Jaime Rodriguez RT(R) Trnscrd Date/Time/By: 07/25/2019 (1750) : By: [email or web address] Orig Print D/T: S: 07/25/2019 (1753) PAGE 1 Signed ReportCBC W/AUTO [id number] 15:22:00 Test Item Value Reference Range Interpretation Comments WHITE BLOOD CELL (test code = 11.18 x10 3/uL 4.5-11.0 H WBC) RED BLOOD CELL (test code = 2.70 x10 6/uL 4.00-5.60 L RBC) HEMOGLOBIN (test code = HGB) 8.1 g/dL 12.5-16.9 L HEMATOCRIT (test code = HCT) 26.5 % 37.5-50.7 L MEAN CELL VOLUME (test code = 98.1 fL 81.0-99.0 N MCV) MEAN CELL HGB (test code = 30.0 pg 27.0-33.0 N MCH) MEAN CELL HGB CONCETRATION 30.6 g/dL 33.0-37.0 L (test code = MCHC) RED CELL DISTRIBUTION WIDTH CV 17.2 % 11.5-14.5 H (test code = RDW) RED CELL DISTRIBUTION WIDTH SD 61.5 fL 37.0-54.0 H (test code = RDW-SD) PLATELET COUNT (test code = 114 x10 3/uL 150-400 L PLT) MEAN PLATELET VOLUME (test 11.6 fL 7.0-9.0 H code = MPV) NEUTROPHIL % (test code = NT%) 75.1 % 56.0-77.0 N IMMATURE GRANULOCYTE % (test 0.9 % 0.0-2.0 N code = IG%) LYMPHOCYTE % (test code = LY%) 11.4 % 14.0-32.0 L MONOCYTE % (test code = MO%) 11.3 % 4.8-9.0 H EOSINOPHIL % (test code = EO%) 1.0 % 0.3-3.7 N BASOPHIL % (test code = BA%) 0.3 % 0.0-2.0 N NUCLEATED RBC % (test code = 0.0 % 0-0 N NRBC%) NEUTROPHIL # (test code = NT#) 8.41 x10 3/uL 2.0-7.6 H IMMATURE GRANULOCYTE # (test 0.10 x10 3/uL 0.00-0.03 H code = IG#) LYMPHOCYTE # (test code = LY#) 1.27 x10 3/uL 1.0-3.8 N MONOCYTE # (test code = MO#) 1.26 x10 3/uL 0.1-0.8 H EOSINOPHIL # (test code = EO#) 0.11 x10 3/uL 0.0-0.2 N BASOPHIL # (test code = BA#) 0.03 x10 3/uL 0.0-0.2 N NUCLEATED RBC # (test code = 0.00 x10 3/uL 0.0-0.1 N NRBC#) MANUAL DIFF REQUIRED (test NO code = MDIFF) PLT [id number] 15:22:00 Test Item Value Reference Range Interpretation Comments PLATELET ESTIMATE (test code 140-175 THOUSAND ADEQUATE = PLTEST) PLATELET MORPHOLOGY (test LARGE PLATELETS code = PLTMORPH) PROTHROMBIN [id number] 09:45:00 Test Item Value Reference Range Interpretation Comments PROTHROMBIN TIME 14.2 SECONDS 9.3-12.9 H PATIENT (test code = PTP) INTERNATIONAL NORMAL 1.3 0.8-1.2 H TARGET RATIO (test code = INR BY IN DICATION INR) Indication INR1. Prophyl axis of venous thrombos is 2.0 - 3. 0 (orthopedic saud morenita), Prophylaxis of venous thrombos is (other than hig h-risk surgery), Zeny tment of Deep Vein Thrombosis/Pulm onary Embolism, Preve ntion of systemic emb olism - Tissue heart va lves, Acute Myocardia l Infarction (to prevent systemic embo lism), Valvular heart disease, Atri al Fibrillation, Bileaflet mecha nical valve in aortic position.2. Mec hanical prosthetic valv es (high risk), 2.5 - 3.5 Presence of Lupus Anticoagu lant or Antiphospholi pid Antibodies, Pre vention of systemic e mbolism - Acute Myocard ial Infarction (t o prevent recurre nt infarct). THROMBOPLASTIN TIME [id number] 09:45:00 Test Item Value Reference Range Interpretation Comments THROMBOPLASTIN TIME 33.9 Seconds 25.0-39.5 N Ther apeutic PARTIAL (test code = Range: 50.4 - 88.3 PTT) Seconds Effective 07/27/2018 [id number] 09:37:00 Test Item Value Reference Range Interpretation Comments PHOSPHOROUS (test code = PHOS) 4.1 MG/DL 2.5-4.9 N [id number] 09:37:00 Test Item Value Reference Range Interpretation Comments MAGNESIUM (test code = MAG) 2.40 mg/dL 1.8-2.4 N COMPREHENSIVE METABOLIC [id number] 09:11:00 Test Item Value Reference Range Interpretation Comments SODIUM (test code = NA) 137 mEq/L 134-147 N POTASSIUM (test code = 3.8 mEq/L 3.4-5.0 N K) CHLORIDE (test code = 102 mEq/L 100-108 N CL) CARBON DIOXIDE (test 27 mEq/L 21-33 N code = CO2) ANION GAP (test code = 12 0-20 N GAP) GLUCOSE (test code = 145 mg/dL 70-110 H GLU) BLOOD UREA NITROGEN 44 mg/dL 7-18 H (test code = BUN) GLOMERULAR FILTRATION 9.5 70-80 L Units of measure = RATE (test code = GFR) ml/mi n/1.73 m2 CREATININE (test code = 5.8 mg/dL 0.6-1.3 H CREAT) TOTAL PROTEIN (test 6.8 g/dL 6.4-8.2 N code = PROT) ALBUMIN (test code = 3.10 g/dL 3.4-5.0 L ALB) CALCIUM (test code = 8.6 mg/dL 8.0-10.5 N CA) BILIRUBIN TOTAL (test 0.5 MG/DL <1.5 N code = BILT) SGOT/AST (test code = 10 IUnit/L 15-37 L AST) SGPT/ALT (test code = 19 IUnit/L 15-65 N ALT) ALKALINE PHOSPHATASE 101 IUnit/L 20-125 N TOTAL (test code = ALKP) COMPREHENSIVE METABOLIC [id number] 09:06:00 Test Item Value Reference Range Interpretation Comments SODIUM (test code = NA) 137 mEq/L 134-147 N POTASSIUM (test code = K) 3.8 mEq/L 3.4-5.0 N CHLORIDE (test code = CL) 102 mEq/L 100-108 N CARBON DIOXIDE (test code = CO2) 27 mEq/L 21-33 N ANION GAP (test code = GAP) 12 0-20 N GLUCOSE (test code = GLU) 145 mg/dL 70-110 H BLOOD UREA NITROGEN (test code = 44 mg/dL 7-18 H BUN) GLOMERULAR FILTRATION RATE (test 70-80 code = GFR) CREATININE (test code = CREAT) mg/dL 0.6-1.3 TOTAL PROTEIN (test code = PROT) g/dL 6.4-8.2 ALBUMIN (test code = ALB) g/dL 3.4-5.0 CALCIUM (test code = CA) 8.6 mg/dL 8.0-10.5 N BILIRUBIN TOTAL (test code = BILT) MG/DL <1.5 SGOT/AST (test code = AST) IUnit/L 15-37 SGPT/ALT (test code = ALT) IUnit/L 15-65 ALKALINE PHOSPHATASE TOTAL (test IUnit/L 20-125 code = ALKP) CBC W/AUTO [id number] 09:04:00 Test Item Value Reference Range Interpretation Comments WHITE BLOOD CELL (test code = 11.18 x10 3/uL 4.5-11.0 H WBC) RED BLOOD CELL (test code = 2.70 x10 6/uL 4.00-5.60 L RBC) HEMOGLOBIN (test code = HGB) 8.1 g/dL 12.5-16.9 L HEMATOCRIT (test code = HCT) 26.5 % 37.5-50.7 L MEAN CELL VOLUME (test code = 98.1 fL 81.0-99.0 N MCV) MEAN CELL HGB (test code = 30.0 pg 27.0-33.0 N MCH) MEAN CELL HGB CONCETRATION 30.6 g/dL 33.0-37.0 L (test code = MCHC) RED CELL DISTRIBUTION WIDTH CV 17.2 % 11.5-14.5 H (test code = RDW) RED CELL DISTRIBUTION WIDTH SD 61.5 fL 37.0-54.0 H (test code = RDW-SD) PLATELET COUNT (test code = 114 x10 3/uL 150-400 L PLT) MEAN PLATELET VOLUME (test 11.6 fL 7.0-9.0 H code = MPV) NEUTROPHIL % (test code = NT%) 75.1 % 56.0-77.0 N IMMATURE GRANULOCYTE % (test 0.9 % 0.0-2.0 N code = IG%) LYMPHOCYTE % (test code = LY%) 11.4 % 14.0-32.0 L MONOCYTE % (test code = MO%) 11.3 % 4.8-9.0 H EOSINOPHIL % (test code = EO%) 1.0 % 0.3-3.7 N BASOPHIL % (test code = BA%) 0.3 % 0.0-2.0 N NUCLEATED RBC % (test code = 0.0 % 0-0 N NRBC%) NEUTROPHIL # (test code = NT#) 8.41 x10 3/uL 2.0-7.6 H IMMATURE GRANULOCYTE # (test 0.10 x10 3/uL 0.00-0.03 H code = IG#) LYMPHOCYTE # (test code = LY#) 1.27 x10 3/uL 1.0-3.8 N MONOCYTE # (test code = MO#) 1.26 x10 3/uL 0.1-0.8 H EOSINOPHIL # (test code = EO#) 0.11 x10 3/uL 0.0-0.2 N BASOPHIL # (test code = BA#) 0.03 x10 3/uL 0.0-0.2 N NUCLEATED RBC # (test code = 0.00 x10 3/uL 0.0-0.1 N NRBC#) MANUAL DIFF REQUIRED (test NO code = MDIFF) PLT [id number] 09:04:00 Test Item Value Reference Range Interpretation Comments PLATELET ESTIMATE (test code = THOUSAND ADEQUATE PLTEST) CBC W/AUTO [id number] 09:04:00 Test Item Value Reference Range Interpretation Comments WHITE BLOOD CELL (test code = 11.18 x10 3/uL 4.5-11.0 H WBC) RED BLOOD CELL (test code = 2.70 x10 6/uL 4.00-5.60 L RBC) HEMOGLOBIN (test code = HGB) 8.1 g/dL 12.5-16.9 L HEMATOCRIT (test code = HCT) 26.5 % 37.5-50.7 L MEAN CELL VOLUME (test code = 98.1 fL 81.0-99.0 N MCV) MEAN CELL HGB (test code = 30.0 pg 27.0-33.0 N MCH) MEAN CELL HGB CONCETRATION 30.6 g/dL 33.0-37.0 L (test code = MCHC) RED CELL DISTRIBUTION WIDTH CV 17.2 % 11.5-14.5 H (test code = RDW) RED CELL DISTRIBUTION WIDTH SD 61.5 fL 37.0-54.0 H (test code = RDW-SD) PLATELET COUNT (test code = 114 x10 3/uL 150-400 L PLT) MEAN PLATELET VOLUME (test 11.6 fL 7.0-9.0 H code = MPV) NEUTROPHIL % (test code = NT%) 75.1 % 56.0-77.0 N IMMATURE GRANULOCYTE % (test 0.9 % 0.0-2.0 N code = IG%) LYMPHOCYTE % (test code = LY%) 11.4 % 14.0-32.0 L MONOCYTE % (test code = MO%) 11.3 % 4.8-9.0 H EOSINOPHIL % (test code = EO%) 1.0 % 0.3-3.7 N BASOPHIL % (test code = BA%) 0.3 % 0.0-2.0 N NUCLEATED RBC % (test code = 0.0 % 0-0 N NRBC%) NEUTROPHIL # (test code = NT#) 8.41 x10 3/uL 2.0-7.6 H IMMATURE GRANULOCYTE # (test 0.10 x10 3/uL 0.00-0.03 H code = IG#) LYMPHOCYTE # (test code = LY#) 1.27 x10 3/uL 1.0-3.8 N MONOCYTE # (test code = MO#) 1.26 x10 3/uL 0.1-0.8 H EOSINOPHIL # (test code = EO#) 0.11 x10 3/uL 0.0-0.2 N BASOPHIL # (test code = BA#) 0.03 x10 3/uL 0.0-0.2 N NUCLEATED RBC # (test code = 0.00 x10 3/uL 0.0-0.1 N NRBC#) MANUAL DIFF REQUIRED (test NO code = MDIFF) PLT [id number] 09:04:00 Test Item Value Reference Range Interpretation Comments PLATELET ESTIMATE (test code = THOUSAND ADEQUATE PLTEST) POC [id number] 16:36:33 Test Item Value Reference Range Interpretation Comments POC glucose (test code = 238 mg/dL 65-99 H Ope rator Name: [id number]) Veena Sexton ice ID: [id number] able: [facility] Notified roll former Interpretation (test Abnormal code = 16445-4) [facility] MethodistPartial thromboplastin time, [id number] 06:11:45 Test Item Value Reference Range Interpretation Comments PTT (test code = 52.8 23.0- 36.0 sec H PTT thera peutic range 97413-0) for unfractiona deshawn heparin is61.0- 112.0 seconds which corresponds to Anti-Xa0.3-0.7 U/ml. Lab Interpretation Abnormal (test code = 19364-7) [facility] with platelet and [id number] 06:01:31 Test Item Value Reference Range Interpretation Comments WBC (test code = 37125-0) 11.21 4.50- 11.00 k/uL H RBC (test code = 66908-0) 3.04 m/uL 4.4-6 L HGB (test code = 718-7) 8.5 g/dL 14-18 L HCT (test code = 4544-3) 29.7 % 41-51 L MCV (test code = 787-2) 97.7 fL 82-100 MCH (test code = 785-6) 28.0 pg 27-34 MCHC (test code = 786-4) 28.6 g/dL 31-37 L RDW - SD (test code = 63.7 fL 37-55 H 40446-1) MPV (test code = 76998-7) 12.5 fL 8.8-13.2 Platelet count (test code 127 150- 400 k/uL L = 71013-3) Nucleated RBC (test code 0.00 /100 WBC = 81507-8) Neutrophils (test code = 78.6 % 39-69 H 86571-6) Lymphocytes (test code = 8.8 % 25-45 L 14332-6) Monocytes (test code = 10.9 % 0-10 H 35700-4) Eosinophils (test code = 1.1 % 0-5 06191-6) Basophils (test code = 0.2 % 0-1 36518-1) Immature granulocytes 0.4 % 0-1 "Immat ure (test code = 33937-2) granul ocytes" (promyelocytes, myelocytes, metamyelocytes) Lab Interpretation (test Abnormal code = 85393-1) [facility] Chest 1 Vw [id number] 12:45:16Hm Interface, Radiology Results - 06/08/2019 12:48 PM CSTEXAMINATION: XR CHEST 1 VW PORTABLECLINICAL HISTORY: Abnormal examCOMPARISON: Multiple prior chest radiographs, most recently dated 06/05/2019.IMPRESSION:Technique: Single portable chest radiograph.Lines/tube: Unchanged tracheostomy and right-sided AICD.Cardiomediastinum: Unchanged cardiomegaly and aortic calcificationsLungs: Mildly improved retrocardiac opacity. Increased perihilar opacities bilaterally, which may be in part due to central venous congestion versus worsening infiltrate. Left lower lobe platelike atelectasis. No pleural effusion. No pneumothorax.Bones: Regional osseous structures appear stable.[id number] [facility] metabolic [id number] 06:39:31 Test Item Value Reference Range Interpretation Comments Sodium (test code = 2951-2) 135 135- 148 mEq/L Potassium (test code = 2823-3) 4.2 3.5- 5.0 mEq/L Chloride (test code = 2075-0) 97 98- 112 mEq/L L CO2 (test code = 2027-9) 26 24- 31 mEq/L Anion gap (test code = 09984-8) 12@ANIO 7- 15 mEq/L BUN (test code = 3094-0) 31 mg/dL 8-23 H Creatinine (test code = 2160-0) 4.21 mg/dL 0.7-1.2 H Glucose (test code = 2345-7) 117 mg/dL 65-99 H Calcium (test code = 13398-7) 9.0 mg/dL 8.8-10.2 Lab Interpretation (test code = Abnormal 46076-7) [facility]Magnesium [id number] 06:39:31 Test Item Value Reference Range Interpretation Comments Magnesium (test code = 80696-8) 2.3 mg/dL 1.6-2.4 [facility]Phosphorus [id number] 06:39:31 Test Item Value Reference Range Interpretation Comments Phosphorus (test code = 2777-1) 2.5 mg/dL 2.4-4.5 [facility]Estimated [id number] 06:39:31 Test Item Value Reference Range Interpretation Comments Estimated GFR (test 14 mL/min/1.73 m2 Garcia duran Units code = 5488) InterpretationG 1 >=90 Hannah l or highG2 60-89 Mildly decrease dG3a 45-59 Mil dly to moderately decr ludzmA8o 30-44 Moderately to s everely decreasedG4 15-29 Severe ly decreasedG5 <15 Kidney fina lureThe eGFR was calcul ated using the [facility] Kidney Disease Epidemiology Collaboration ( CKD-EPI) equation. Interpretation is based on recommendati ons of the National Ki dney Foundation-Kidn ey Disease Outcome s Quality Initiat go (NKF-KDOQI) pub lished in 2013. Lab Interpretation Abnormal (test code = 40804-0) [facility] MethodistArterial blood [id number] 11:45:20 Test Item Value Reference Range Interpretation Comments pH, arterial (test code = 2744-1) 7.38 7.35-7.45 pCO2, arterial (test code = 50 35- 45 mmHg H 2018-11) pO2, arterial (test code = 76 80- 90 mmHg L 3-7) Bicarbonate, arterial (test code 28.8 mmol/L 21-28 H = 1960-4) Base excess, arterial (test code 4 -2 - 2 mEq-L H = 1925-7) O2 saturation, arterial (test 95 % 95-100 code = 2708-6) Lab Interpretation (test code = Abnormal 03753-1) [facility] duplex venous lower [id number] 08:10:00Interface, Radiology Results In - 06/07/2019 8:11 AM [facility] Vascular Ul[facility]ound Laboratory Lower Extremity Venous [address] [address], [place] [address] Pat.Name: GABBY PEREZ.ID: [id number] .Date: 06/07/2019 Refer.MD: KIMBERLY KHANNA MD Exam Time: 4:51:00 AM Study Type:LE Venous Age: 1001/16/1940,79Y Sex: MALE Sonogrphr: Jamal Lira BA, BS, RDMS, RVTPat. Stat.:Inpatient Room: [address] Tape Vol: ZENAIDA, CPT - 4: 99350 Echo Event ID:[id number] Order ID: [id number] Reason for Study:Evaluate for DVT. Patient has history of pulmonaryembolism, end stage renal disease, diabetes, hypertension. Procedures: Colorflow, Grayscale/2D, Pulsed wave DopplerRace: B SUMMARY: * Normal Reflux Criteria: < 0.5 seconds * Abnormal Reflux Criteria: > or equal to 0.5 secondsDUPLEX SCAN OBSERVATIONS Deep Veins Superficial Veins Right Left Right Left GSV (prox) Normal NormalCFV Normal Normal (above knee)Femoral Normal Normal GSV (dist) Normal NormalProfunda Normal Normal (below knee)Popliteal Normal NormalPT (prox) Normal Normal SSV Normal NormalPT (dist) Normal Normal Peroneal Normal Normal Gastrocs Normal Normal Soleal Partial NormalRIGHT: The solealvein is dilated, partially compressible, and seenwith echogenic material within the lumen. Color flow and Dopplersignals are present. There is normal compressibility with no evidenceof echogenic material noted within the lumen of the remainingvisualized veins. There is a heterogeneous nonvascular structure seenin the medial aspect of the upper thigh, medial to the femoralvessels, measuring approximately 12.4x6.2x,2.34cmLEFT: There is normal compressibility with no evidence ofechogenic material noted within the lumen of the visualizedveins.Colorflow and Doppler signals are normal.PRELIMINARY FINDINGS1. Acute appearing partial deep venous thrombosis of the right solealvein. 2. Heterogeneous nonvascular structure seen in the medial aspect ofthe upper thigh, medial to the femoral vessels, measuringapproximately 12.4x6.2x,2.34cm3. Technically difficult study due to patient's difficulty toleratingcompressions. Preliminary findings communicated to SHAI Rogel at 6:35AM on 06/07/2019PHYSICIAN INTERPRETATION Venous examination of the both lower extremities demonstrated acute partial deep venous thrombosis of the right soleal vein. Heterogeneous nonvascular structure seen in the medial aspect of theupper thigh, medial to the femoral vessels, measuring ildrayntozoun10.4x6.2x,2.34cm FINDINGS: Signed 06/07/2019 08:10 Jb Yung MD, [facility] qebswrvi9053-85-22 04:26:08 Test Item Value Reference Range Interpretation Comments WBC (test code = 95641-7) 16.21 4.50- 11.00 k/uL H RBC (test code = 64639-1) 3.35 m/uL 4.4-6 L HGB (test code = 718-7) 9.6 g/dL 14-18 L HCT (test code = 4544-3) 32.4 % 41-51 L MCV (test code = 787-2) 96.7 fL 82-100 MCH (test code = 785-6) 28.7 pg 27-34 MCHC (test code = 786-4) 29.6 g/dL 31-37 L RDW - SD (test code = 24092-9) 64.8 fL 37-55 H MPV (test code = 43931-7) 12.3 fL 8.8-13.2 Platelet count (test code = 132 150- 400 k/uL L 27559-7) Nucleated RBC (test code = 0.00 /100 WBC 07554-1) Lab Interpretation (test code = Abnormal 94463-6) [place] MethodistOccult blood, [id number] 20:16:15 Test Item Value Reference Range Interpretation Comments Occult blood, Negative for Specimen stool (test occult blood. InformationSpe tanyaen code = Source: StoolSp ecimen 2334-1) Site: Nonpreser nguyen [place] MethodistComprehensive metabolic mvddt4868-21-59 04:23:36 Test Item Value Reference Range Interpretation Comments Sodium (test code = 136 135- 148 mEq/L 2951-2) Potassium (test code = 4.7 3.5- 5.0 mEq/L 2823-3) Chloride (test code = 96 98- 112 mEq/L L 2075-0) CO2 (test code = 2027-9) 25 24- 31 mEq/L Anion gap (test code = 15@ANIO 7- 15 mEq/L 15097-3) BUN (test code = 3094-0) 38 mg/dL 8-23 H Creatinine (test code = 4.73 mg/dL 0.7-1.2 H 2160-0) Glucose (test code = 77 mg/dL 65-99 2345-7) Calcium (test code = 8.7 mg/dL 8.8-10.2 L 42980-6) Protein (test code = 6.4 g/dL 6.3-8.3 [place] 9994.6-7.0 2885-2) g/dL1 hldf2104.4-7.6 g/dL7 months-6nksa186 .1- 7.3 g/dL1-2 dpfif806.6-7.5 g/dL>3 zddza474.0-8.0 g/bM54-2330881. 3-8 .3 g/dL Albumin (test code = 2.4 g/dL 3.5-5 L 1751-7) A/G ratio (test code = 0.6 0.7-3.8 L 1759-0) Alkaline phosphatase 77 U/L 40-129 (test code = 6768-6) AST (test code = 1920-8) 10 U/L 10-50 ALT (test code = 1742-6) 15 U/L 5-50 Total bilirubin (test 0.5 mg/dL 0-1.2 code = 1975-2) Lab Interpretation (test Abnormal code = 42555-1) [facility] ChanceECG 12 yjvm8904-28-46 10:46:09 Test Item Value Reference Range Interpretation Comments Ventricular rate (test 115 code = 253) Atrial rate (test code 115 = 255) SD interval (test code 114 = 266) QRSD interval (test 154 code = 260) QT interval (test code 460 = 264) QTC interval (test code 636 = 265) P axis 1 (test code = 68 267) QRS axis 1 (test code = -73 268) T wave axis (test code 89 = 270) EKG impression (test Atrial-sensed code = 273) ventricular-paced rhythm-Biventricular pacemaker detected-Abnormal ECG-In automated comparison with ECG of 01-JUN-2019 11:32,-No significant change was found-- Percy ChancePrepare RBC, 2 Bunoo1792-06-62 20:18:00 Test Item Value Reference Range Interpretation Comments Product name (test code Apheresis Red Cell AS3 = 25) #2 LR Unit number (test code [id number] = 2869804) Product code (test code E0514Q04 = 3092) Dispense status (test Transfused code = 24) Blood expiration date (test code = 302) Blood type code (test 5100 code = 308) Blood type (test code = O POSITIVE 1314) Compatibility (test Compatible code = 6400) Percy Cruzmear hibihi1733-17-87 09:08:06 Test Item Value Reference Range Interpretation Comments Platelet slide review (test code Trell slt decr = 94783-6) Anisocytosis (test code = 702-1) Moderate Polychromasia (test code = Moderate 26417-7) Ovalocytes (test code = 774-0) Moderate [facility] MethodistAnti Xa, ikuyhrcagnawwt2743-63-42 00:22:06 Test Item Value Reference Range Interpretation Comments Anti Xa, unfractionated <0.10 0.3-0.7 L Ther apeutic Range: (test code = 3274-8) 0.30 - 0.70 U/mL Lab Interpretation (test Abnormal code = 68502-4) [place] MethodistProthrombin time with LOR2622-08-73 00:09:41 Test Item Value Reference Range Interpretation Comments Prothrombin time (test 14.8 11.5- 14.5 sec H code = 5902-2) INR (test code = 1.2 [facility] 94798-5) Normalized Rati o (INR) is a therapeuti c monitoring tool for patients who ar e stable on oral anticoagulant t herapy. An INR of 2.0-3 .0 is suggested for d eep vein thrombosis/pulm onary embolism. Lab Interpretation Abnormal (test code = 11034-6) [place] MethodistRespiratory pathogen geueo5690-52-82 22:13:14 Test Item Value Reference Interpretation Comments Range Respiratory Positive for Influenza A Speci men pathogen panel A/H1-2008 [facility] ecimen (test code = virus Gris e: 2148) ----Negative for all [facility] ecimen Site: other pathogens Right tested:Negative for AdenovirusNegative for Coronavirus LHI2Eovpfqxd for Coronavirus HF07Akboqvyt for Coronavirus 229ENegative for Coronavirus CD42Coeconuw for Human MetapneumovirusNegative for Rhinovirus/EnterovirusNe gative for Influenza ANegative for Influenza A/O3Pdbuibxb for Influenza A/T6Cviabdkq for Influenza BNegative for Parainfluenza Virus 1Negative for Parainfluenza Virus 2Negative for Parainfluenza Virus 3Negative for Parainfluenza Virus 4Negative for Respiratory Syncytial VirusNegative for Bordetella pertussisNegative for Chlamydophila pneumoniaeNegative for Mycoplasma pneumoniaeThis real-time PCR assay detects the presence of nucleic acids (RNA or DNA) for the respiratory pathogens listed. A result of "Not-detected" does not exclude the possibility of the presence of one or more pathogens at concentrations less than the detectable limits of the assay. Lab Abnormal Interpretation (test code = 80227-8) [place] MethodistCT Angiogram Pe Syayb7433-86-31 20:01:02Hm Interface, Radiology Results - 06/03/2019 8:04 PM CSTEXAMINATION:CT ANGIOGRAM PE CHESTCL INICAL HISTORY:79 years Male Pulmonary HTN suspected, PE suspected high pretest prob, resp insufficiency if high risk setting has tolerated coron angios without problemTECHNIQUE: CT angiographic images of the chest were obtained during intravenous administration of iodinated contrast. Computerizedreformatted images and 3-D MIP images were also obtained and archived (CT pulmonary embolus protocol). CT imaging was performed with iterative reconstruction techniques and/or automated exposure control to reduce radiation dose. COMPARISON:To previous study from 09/09/2011FINDINGS:1.Tracheostomy tube is in good position. 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 For D-dimer re sults greater than 0. 5 ug/ml FEU furth er testing is eusebia cated if PE or DVT is suspected clinically.Elev ated D-dimer results have been reported i n DVT, PE, and DI C cases and may indicate the presence of a c lot. D-dimer results may be elevated due to old age, pregna ncy, inflammatory diseases, traum a, post-operative states, sepsis, and malignancies. Lab Interpretation Abnormal (test code = 37493-5) [facility] MethodistType and rywvxj7926-92-66 09:53:00 Test Item Value Reference Range Interpretation Comments ABO grouping (test code = 883-9) O Rh type (test code = 36424-8) POS Antibody screen (gel) (test code = NEG 890-4) [place] Anama lambda free light chain with aoizi7361-30-08 07:19:49 Test Item Value Reference Range Interpretation Comments [place] light chain (test code = 289.08 mg/L 3.3-19.4 H 16465-2) Lambda light chain (test code = 143.97 mg/L 5.7-26.3 H 70631-5) [place] lambda ratio (test code = 2.01 0.26-1.65 H 79647-0) Lab Interpretation (test code = Abnormal 70318-5) [place] [facility] pyp scan for cardiac tanrklfwsss1273-54-25 15:40:00 Interface, Radiology Results In - 06/01/2019 3:40 PM [facility] Nuclear Cardiology and Cardiac CT [address] [place] [address] PYP Cardiac Amyloidosis Imaging ReportPat.Name: GABBY PEREZ Pat.ID: [id number] .Date: 06/01/2019 Refer.MD: AD QUINTERO MD Exam Time: 11:24:00 AM Study Type:PYP Cardiac Amyloidosis ImagingHeight: 71in Weight: 266lb BSA: 2.38 m2 Age: 1001/16/1940,79Y Sex: MALE Nuclear Tech:TRACY TavaresMT, [facility] CENTERJacob(N)Pat. Stat.:Inpatient NuclearEvent ID:[id number] Order ID: [id number] Reason for Study:R/O TTR amyloid History / Clinical:Arrhythmia, PPM, AICD, Hypertension, Renalinsufficiency/failureProcedures: PYP Cardiac AmyloidosisRace: B SUMMARY: Technique: A Tc-99m pyrophosphate study was performed to assess for presence andtype of amyloidosis. The patient was given an intravenous injection of21 mCi Tc-99m Pyrophosphate followed by a planar and SPECT imageacquisition 1 hour and 3 hour post injection. Planar imagingof theheart was performed in the anterior projection followed by a cardiacSPECT acquisition.Findings: The overall quality of the study was good. Semi- quantitative visualassessment of myocardial count intensity was grade 1which is notconsistent with cardiac uptake greater than bone. Quantitativefindings heart to contralateral lung ratio is 1.1 at [address] Findings:Coronary calcification is present in the LAD, right and circumflexcoronary arteries The ascending and descending aorta are normal insize. There is no significant pericardial effusion. Limited lungfields show no significant abnormalities. RA, RV, and coronary sinuspacing leads are present. Small hiatal hernia.Impression:The overall study results are not suggestive for transthryetinamyloidosis (ATTR). -------FINDINGS: Signed 06/01/2019 03:40 PMMohan Saucedo MDFort Meade MethodistT3, ndkf3848-67-85 08:33:03 Test Item Value Reference Range Interpretation Comments T3, free (test code = 1.1 pg/mL 2.4-4.2 L REFERE NCE INTERVAL: 5404-9) Triiodothyronin e, Free (Free T3)A ccess complete set of age- and/or gender-specific reference inter vals for this test i n the [facility] Test Directory ([employer]).P erfor med by [employer],[address] [place] [address] evb .Venafi, Jared Foster MD, La b. Director Lab Interpretation (test Abnormal code = 86489-9) [facility] cardiac calcium zwbwi3491-72-60 19:15:00Interface, Radiology Results In - 05/31/2019 7:15 PM [facility] Nuclear Cardiology and Cardiac CT [address] [address] [place] Calcium Scoring ReportPat.Name: GABBY PEREZ [facility].ID: [id number] .Date: 05/31/2019 Refer.MD: AD QUINTERO MD Exam Time: 3:04:00 PM Study Type:CT Calcium Scoring Height: 71in Weight: 266lbBSA: 2.38 m2 Age: 1001/16/1940,79Y Sex: MALE HR: 92 bpm Nuclear Tech:Ayo Aviles RT([place])(CT), [facility]/Abdiel Billings [facility]t. Stat.:Inpatient Nuclear Event ID:[id number] Order ID: [id number] Reason for Study:Eval Aortic Valve Procedures: CT Flash mode Race: Black SUMMARY: Technique: Sequential 3mm CT cuts were obtained through the chest using [facility] [place] CT scanner with ECG gating. Interactive imageviewing and volumetric display and analysis were also performed. TheCACscore was quantified using the Agatston scoring method.Non-contrast Cardiac CT results are as follows:The aortic valve calcium score is 1320. There is moderate mitralannular calcification.The non-contrast CT shows a normal cardiac size, no pericardialabnormalities, a mildly enlarged ascending thoracicaorta of 4.1 m,and a upper normal descending thoracic aorta of 3.0 cm. The left mainand right coronary arteries appear to originate normally off the leftand right sinus of Valsalva. The right coronaryartery is dominant.Non-Cardiac Findings: RA, RV and CS pacemaker wires are present.Ground glass patchy opacities in the lung ellsworth.Conclusion:1) The aortic valve calcium score is 1320 2) Mildly enlarged ascending thoracic aorta of 4.1 m, The descendingaorta is at the upper limits of normal at 3.0 cm. FINDINGS: -Signed 05/31/2019 07:15 PMJesse Brothers MethodistEchocardiogram complete w contrast and 3D if xlujje8777-22-49 13:49:00Interface, Radiology Results In - 05/31/2019 1:49 PM [facility]IE[facility]IC TE[facility] Echocardiography Report [address] [place] [address] Pat.Name: GABBY PEREZ Pat.ID: [id number].Date: 05/30/2019 Refer.MD: AD QUINTERO MD Exam Time: 6:00:00 PM Study Type:Routine Echo Height: 71in Weight: 305lb BSA: 2.53 m2 Age: 1001/16/1940,79Y Sex: MALE BP: 138/70 HR: 72 bpm Sonogrphr: EZRA Stock Pat. Stat.:Inpatient Room: [address] Study Status:Final Echo Event ID:[id number] Order ID: [id number] Reason for Study:Aortic stenosis evaluation.History / Clinical:Congestive Heart Failure, Coronary Artery DiseaseProcedures: 2D Echo, Colorflow Doppler, PortableRace: B SUMMARY: Moderate thickening and calcification of AV leaflets.Moderate to severe aortic valve stenosis.Estimated mean aortic valve gradient 27 mmHg with a valve area of 1.2cm2 (0.5 cm2/m2). FINDINGS: LV: LV size is severely enlarged. There is moderate eccentric LV hypertrophy. LV EF is severely depressed. Global hypokinesis. Septal motion is paradoxicalsecondary to LBBB or conduction abnormality. Estimated EF is 25-29%.RV: RV size is enlarged. A pacemaker wire is seen in the RV. RV systolic function is normal. RV wall motionis normal.LA: LA volume is mild to moderately enlarged.RA: RA volume is normal. A pacemaker wire is seen.AO: Aortic root diameter is normal.NIDIA: No pericardial effusion.AV:Moderate thickening and calcification of AV leaflets. Mild aortic regurgitation. Moderate to severe aortic valve stenosis. Estimated mean aortic valve gradient 27 mmHg witha valve area of 1.2 cm2 (0.5 cm2/m2).MV: Moderate mitral annular calcification. Mild mitral regurgitation. PV: Pulmonic valve not well seen.TV: No structural TV abnormalities noted. Mild tricuspid regurgitation Moise: Diastolic dysfunction Grade II (Moderate): Impaired relaxation with elevated LV filling pressures.Other: Estimated PA systolic pressure is 46 mmHg, assuming a mean RAP of 10 mmHg. MEASUREME NTS: 2DParasternal Long [place] AoAn 2.5 cm LVPWd 1.2 cm Ao Rtd 3.4 cm Index 1.4 cm/m2 LA Ds 4.1 cm IVSd 1.2 cm RWT 0.36 LVIDd 6.5 cm Index 2.6 cm/m2 LV Mass 353 g (122-174) LVIDs 4.9 cm LVM Index 140 g/m2 LV%fs 24 % LA Sng Plane LA Area 29 cm2 (8.8-23.4) LA Vol 98 ml Index39 ml/m2 LA LngAx 7.5 cm RA Sng Plane RA Vol 85 ml Index 33 ml/m2 RA LngAx 5.9 cm RA Area 25 cm2 (8.3-19.5)LVOT For FlowLVOT 2.1 cm LVOT Area 3.5 cm2 DOPPLERAV For Flow/SALLY AV pkVel 344 cm/s (100-170) AV TVI 90 cm AV mnVel 234 cm/s AVpkAcRt 3819 cm/s2 AV pkPG 47 mmHg AV DeRt 899 cm/s2 AV Mean G 27 mmHg AV Area 1.2 cm2 (3-5) AV ET 383 msec AV AC 156 msec (83-118) AV AC/ET 0.41 Aortic Valve AV DI 0.34 LVOT For Flow LVOT TVI 31 cm LVOT CI 2.9 l/m/m2 LVOT SV 106 ml LVOTpkPG 5.4 mmHg LVOTpkVel 116 cm/s LVOTmnPG 3.1 mmHg LVOT CO 7.4 l/min HR 70 bpm LVOT SVi 42ml/m2 Signed 05/31/2019 01:49 PMJodi Rose M.D.[facility] MethodistIonized rwneyah3562-01-93 07:45:51 Test Item Value Reference Range Interpretation Comments pH (test code = 2753-2) 7.38 Ionized calcium (test code = 1.06 mmol/L 1.11-1.32 L ) Lab Interpretation (test code = Abnormal 60535-9) [place] MethodistHeparin PF4 antibody (IgG)2019-05-31 02:31:58 Test Item Value Reference Range Interpretation Comments Heparin PF4 Ab OD reading (test code 0.206 0.000-0.399 = 1500) Heparin PF4 Ab, IgG (test code = Negative Negative 81329-3) [place] MethodistUs duplex arterial lower dgmmaidmb9675-69-75 21:50:00Interface, Radiology Results In - 05/31/2019 9:03 AM [facility] Vascular Diagnostic Laboratory Physiologic Arterial Leg Report [address]Name: GABBY PEREZ Pat.ID: [id number] .Date: 05/30/2019 Refer.MD: AD QUINTERO MD Exam Time: 2:32:00 PM Study Type:Physiologic Leg Age: 1001/16/1940,79Y Sex: MALE Sonogrphr: Priti Recinos RVT Pat. Stat.:Inpatient Room: WT9-0905-A Tape Vol: RF, CPT - 4: 20874 Echo Event ID:[id number] Order ID: [id number] Reason for Study:Bilateral decreased pedal pulses. History of ESRD onHD via left AVFm CHFm AICD,aortic stenosis, cardiomyopathy, DMhypoxic respiratory failure, chronic trach, PAD.Procedures: Ankle/brachial pressures, Digit pressuresRace: B -----SUMMARY: ANKLE/BRACHIAL INDEX: RIGHT LEFT Brachial Artery Rzthinjc540 mmHg AV-Fistula DP 0 mmHg 0 mmHg PT >255 mmHg 150 mmHg ION DP 0 0 ION PT Non-compressible 1.14 TOE/BRACHIAL INDEX: Great Toe 78 mmHg 117 mmHg TBI 0.59 0.89PRELIMINARY FINDINGS:1. Unable to calculate the right ankle/brachial index of the posteriortibial artery due to non-compressible artery.Unable to obtain the right ankle/brachial index of the dorsalis pedisdue to absent Doppler signal.2. The left posterior tibial artery ankle/brachial index falls intothe normal category. Unable to obtain the left ankle/brachial index ofthe dorsalis pedis due to absentDoppler signal.3. The right toe/brachial index falls into the mild category and theleft falls into the normal category. PHYSICIAN INTERPRETATION:1. Unable to calculate the right ankle/brachial index ofthe posteriortibial artery due to non-compressible artery.Unable to obtain the right ankle/brachial index of the dorsalis pedisdue to absent Doppler signal.2. The left posterior tibial artery ankle/brachial index falls intothe normal category. Unable to obtain the left ankle/brachial index ofthe dorsalis pedis due to absent Doppler signal.3. The right toe/brachial index falls into the mild category and theleft falls into the normal category. FINDINGS: Signed 05/30/2019 9:50:00 Elizabeth Yung MD, VIFort [facility]ade AlejandroEastern [facility] ankle brachial [id number] 21:50:00Interface, Radiology Results In - 05/30/2019 9:50 PM [facility] Vascular Diagnostic Laboratory Physiologic Arterial Leg Report [address] [address] Pat.Name: GABBY PEREZ Pat.ID: [id number] .Date: 05/30/2019 Refer.MD: AD QUINTERO MD Exam Time: 2:32:00 PM Study Type:Physiologic Leg Age: 1001/16/1940,79Y Sex: MALE Sonogrphr: Priti Recinos RVT Pat. Stat.:Inpatient Room: [address] Tape Vol: RF,CPT - 4: 98763 Echo Event ID:[id number] Order ID: [id number] Reason for Study:Bilateral decreased pedal pulses. History of ESRD onHD via left AVFm CHFm AICD,aortic stenosis, cardiomyopathy, DMhypoxic respiratory failure, chronic trach, PAD.Procedures: Ankle/brachial pressures, Digit pressuresRace: B -----SUMMARY: ANKLE/BRACHIAL INDEX: RIGHT LEFT Brachial Artery Wochmvup964 mmHg AV-Fistula DP 0 mmHg 0 mmHg PT >255 mmHg 150 mmHg ION DP 0 0 ION PT Non-compressible 1.14 TOE/BRACHIAL INDEX: Great Toe 78 mmHg 117 mmHg TBI 0.59 0.89PRELIMINARY FINDINGS:1. Unable to calculate the right ankle/brachial index of the posteriortibial artery due to non-compressible artery.Unable to obtain the right ankle/brachial index of the dorsalis pedisdue to absent Doppler signal.2. The left posterior tibial artery ankle/brachial index falls intothe normal category. Unable to obtain the left ankle/brachial index ofthe dorsalis pedis due to absentDoppler signal.3. The right toe/brachial index falls into the mild category and theleft falls into the normal category. PHYSICIAN INTERPRETATION:1. Unable to calculate the right ankle/brachial index ofthe posteriortibial artery due to non-compressible artery.Unable to obtain the right ankle/brachial index of the dorsalis pedisdue to absent Doppler signal.2. The left posterior tibial artery ankle/brachial index falls intothe normal category. Unable to obtain the left ankle/brachial index ofthe dorsalis pedis due to absent Doppler signal.3. The right toe/brachial index falls into the mild category and theleft falls into the normal category. FINDINGS: Signed 05/30/2019 09:50 PMMarcellus Yung MD, RPVIFort Meade MethodistUs duplex arterial upper omhpsxhyl8909-11-71 17:50:00Interface, Radiology Results In - 05/30/2019 5:50 PM [facility] Vascular Ultrasound Laboratory Upper Extremity Arterial Report [address]Name: GABBY PEREZ Pat.ID: [id number] .Date: 05/30/2019 Refer.MD: AD QUINTERO MD Exam Time: 3:21:00 PM Study Type:UE Arterial Age: 1001/16/1940,79Y Sex: MALE Sonogrphr: PAUL Herrera. Stat.:Inpatient Room: [address] Vol: RF, CPT - 4: 308[address]Ujnx Event ID:[id number] Order ID: [id number] Reason for Study:Bilateral armpain and swelling. History of ESRD onHD via left AVFm CHFm AICD, aortic stenosis, cardiomyopathy, DMhypoxic respiratory failure, chronic trach, PAD.Procedures: Colorflow, Grayscale/2D, Power Doppler ImagingRace: B SUMMARY: DUPLEX SCAN OBSERVATIONS:RIGHT: The subclavian artery is visualized with colorflowandtriphasic arteiral Doppler signals. Biphasic arterial Doppler signalsand colorflow noted in the axillary, brachial and radial artery.Hyperechoic arterial aviles of the radial and ulnar arteries. There iscolorflow with biphasic arterial Doppler signals in the ulnar arterythroughout the upper arm and proximal to mid forearm. Absent colorflowand Doppler signals of the distal ulnar artery in the distalforearm.There is a high bifurcation of the radial and ulnar arteries in theproximal upper arm. LEFT:Disturbed and pulsatile colorflow and Doppler signals notedthroughout the subclavian and axillary artery. There is hyperechoicarterial aviles of the brachial artery with disturbed, pulsatilecolorflow and Doppler signals of the brachial artery. There appears geronimo a patent AV fistula noted in the distal brachial artery. The radialand ulnar artery are highly calcified. There is dampened highresistant monophasic Doppler signals in the proximal radial arterywith absent colorflow and Doppler signals of themid to distal radialartery. There is colorflow and biphasic arterial Doppler signlas ofthe ulnar artery. DOPPLER FINDINGS: ARTERY LOCATION PSV (cm/sec)RIGHT Subclavian 133 Axillary Proximal-third 53 Brachial Proximal-third 53 Radial Proximal upper arm 67 Mid upper arm 50 Distal upper arm 34 Proximal forearm 50 Mid forearm 33 Distal forearm 40 Ulnar Proximal upper arm 61 Mid upper arm 41 Distalupper ar 48 Proximal forearm 23 Mid forearm 38 Distal forearm 0 ARTERY LOCATION PSV (cm/sec)LEFT Subclavian 142 Axillary Proximal-third 109 Brachial Proximal-third 153 Mid-third 161 Distal- third 225 Radial Proximal-third 13 Mid third 0 Distal third 0 Ulnar Proximal-third 39 cm/sec Mid third 24 Distalthird 36 PRELIMINARY FINDINGS:1. 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 2. Occlusion of the left mid to distal radial artery. 3. patent left AV fistula.4. High bifu rcation of the right radial and ulnar artery. PHYSICIAN INTERPRETATION:Arterial duplex examination of both upper extremities demonstratesocclusion of the right distal ulnar artery. Occlusion of the left mid to distal radial artery. Patent left AV fistula. FINDINGS:- Signed 05/30/2019:50 Elizabeth Yung MD, [facility] [id number] 12:55:52 Test Item Value Reference Range Interpretation Comments LDH (test code = 95671-0) 267 U/L 87-225 H Lab Interpretation (test code = Abnormal 93986-3) [place] [facility] [id number] 06:07:32 Test Item Value Reference Range Interpretation Comments Manual differential (test code = PERFORMED 85456-3) Neutrophils (test code = 61901-1) 81.0 % 39-69 H Lymphocytes (test code = 71594-1) 10.0 % 25-45 L Monocytes (test code = 62658-0) 8.0 % 0-10 Eosinophils (test code = 27034-2) 1.0 % 0-5 Basophils (test code = 02303-4) 0.0 % 0-1 Metamyelocytes (test code = 740-1) 0 % Promyelocytes (test code = 783-1) 0 % Platelet slide review (test code = Decreased A 82355-3) Anisocytosis (test code = 702-1) Moderate Polychromasia (test code = Moderate 72562-1) Tear drop cells (test code = Occasional 7791-7) [place] cells (test code = 7790-9) Moderate A Enlarged platelets (test code = Moderate A 16297-2) Lab Interpretation (test code = Abnormal 83359-8) [facility], [id number] 01:47:34 Test Item Value Reference Range Interpretation Comments T4, free (test code = 3024-7) 0.7 ng/dL 0.9-1.7 L Lab Interpretation (test code = Abnormal 00830-3) [place] [facility]Thyroid stimulating [id number] 01:47:34 Test Item Value Reference Range Interpretation Comments TSH (test code = 3016-3) 0.63 0.27- 4.20 uIU/mL [place] MethodistUric acid [id number] 01:19:56 Test Item Value Reference Range Interpretation Comments Uric acid (test code = 3084-1) 4.5 mg/dL 3.4-7 [place] MethodistHepatitis B surface [id number] 16:11:47 Test Item Value Reference Range Interpretation Comments Hepatitis B surface Ag (test Non-reactive Non-reactive code = 5195-3) [facility] ChanceHemoglobin [id number] 10:29:18 Test Item Value Reference Range Interpretation Comments Hemoglobin A1C (test 6.5 % 4-5.6 H HbA1c c utoffs for code = 69899-1) diagnosing diabetes:4.0% - 5.6% = normal5.7% - 6.4% = increased risk for diabetes (prediabetes)9> =6.5% = [id number] s for glycemic contro l (ADA 2016)< 7.0% Ta rget for non adults with dwight betes. More or less stringent targe ts may be appropriate for individual lui ents. <7.5% Target for Children and adolescents wit h type 1 diabetes. Lab Interpretation (test Abnormal code = 80807-2) [facility]
[2019-10-09] MEDS ORDERED: MORPHINE 4 MG/ML SYR ONE (01:20)
[2019-10-09] MEDS ORDERED: METHYLPREDNISOLONE 40 MG INJ ONE (01:20)
[2019-10-09] MEDS ORDERED: ONDANSETRON 4 MG/2 ML VIAL ONE (01:21)
[2019-10-09] MEDS ORDERED: FENTANYL CITR 100 MCG/2 ML ONE (01:50)
[2019-10-09 02:17] LABS: Hematocrit 49.1 % (39.6-49.0); MPV 10.1 fL (7.6-11.3); RBC Red Blood Cell Count 4.99 M/uL (4.33-5.43)
[2019-10-09 02:28] LABS: Albumin 3.7 g/dL (3.4-5.0); Bilirubin Total 0.6 mg/dL (0.2-1.0); Potassium 3.7 mmol/L (3.5-5.1); Protein, Total 8.7 g/dL (6.4-8.2)
--- NOTE | 2019-10-09 03:13 | ER ---
Nurse's Notes [facility] Name: Sergio Perez Age: 79 yrs Sex: Male : 1940 Arrival Date: 10/09/2019 Time: 01:04 Bed 2 Private MD: Diagnosis: Pain in right hip Presentation: 10/08 01:04 Chief complaint: EMS states: Reports left hip pain and right side pain that started 2 ea days ago, pt described the pain as burning, constant pain. Coronavirus screen: Proceed with normal triage. Ebola Screen: No symptoms or risks identified at this time. Initial Sepsis Screen: Does the patient meet any 2 criteria? Systolic BP < 90 mmHg. Does the patient have a suspected source of infection? No. Patient's initial sepsis screen is negative. Risk Assessment: Do you want to hurt yourself or someone else? Patient reports no desire to harm self or others. Onset of symptoms was October 08, 2019. 01:04 Method Of Arrival: EMS: [facility] ea 01:04 Acuity: KARLENE 3 ea Triage Assessment: 02:41 General: Behavior is calm. mg2 Historical: - Allergies: 01:08 Demerol; ea 01:08 Iodine; ea 01:08 Meperidine; ea 01:08 SHELLFISH; ea - Home Meds: 02:41 albuterol sulfate 2.5 mg /3 mL (0.083 %) Inhl nebu 1 vial daily [Active]; allopurinol mg2 200 mg Oral 2 tabs daily [Active]; amiodarone 200 mg Oral tab 0.5 tab daily [Active]; aspirin 81 mg Oral chew 1 tab twice daily [Active]; clopidogrel 75 mg Oral tab 1 tab once daily [Active]; Ferrous Sulfate 65 mg Oral 1x daily [Active]; fluticasone 50 mcg/actuation nasal spsn 1 spray 2 times per day [Active]; gabapentin Oral 1 tab 3 times per day [Active]; indura 800 mg 2 tabs before each meal TID [Active]; ipratropium bromide 0.02 % inhalation soln 2.5 mL 4 times per day [Active]; nitroglycerin 0.4 mg Oral as needed [Active]; omeprazole 20 mg Oral chew twice a day [Active]; Tums Oral 2 tabs per meal [Active]; vitamin A 8,000 unit Oral cap 1 cap once daily [Active]; vitamin d1 tablet 2000 IU daily [Active]; zinc sulfate 220 (50) mg Oral cap daily [Active]; - PMHx: 01:08 CHF; COPD; Diabetes - NIDDM; Dialysis; M-W-F; ESRD; Gout; GERD; Pacemaker; with defib; ea Hypertension; Anemia; - Immunization history:: Adult Immunizations up to date. - Social history:: Patient/guardian denies using alcohol, street drugs, The patient lives with family, Smoking status: Patient denies any tobacco usage or history of. - Family history:: not pertinent. Screenin:06 Abuse screen: Denies threats or abuse. Nutritional screening: No deficits noted. ea Tuberculosis screening: No symptoms or risk factors identified. Fall Risk None identified. Assessment: 01:30 General: Appears in no apparent distress. uncomfortable. Pain: Complains of pain in mg2 right leg and hip area Pain does not radiate. Pain currently is 8 out of 10 on a pain scale. Quality of pain is described as aching. Neuro: Level of Consciousness is awake, alert, obeys commands, Oriented to person, place, time, situation. Cardiovascular: Capillary refill < 3 seconds Patient's skin is warm and dry. Respiratory: Airway is patent Respiratory effort is even, unlabored, Respiratory pattern is regular, symmetrical. GI: No signs and/or symptoms were reported involving the gastrointestinal system. : No deficits noted. EENT: No signs and/or symptoms were reported regarding the EENT system. Derm: Skin is intact, is healthy with good turgor, Skin is pink, warm \T\ dry. normal. Musculoskeletal: Circulation, motion, and sensation intact. Capillary refill < 3 seconds. 02:00 Reassessment: Patient and/or family updated on plan of care and expected duration. Pain ea level reassessed. Patient is alert, oriented x 3, equal unlabored respirations, skin warm/dry/pink. 03:21 Reassessment: Patient and/or family updated on plan of care and expected duration. Pain ea level reassessed. Patient is alert, oriented x 3, equal unlabored respirations, skin warm/dry/pink. Discharge instruction given to patient, verbalized the understanding of instruction. Pt left ED via wheelchair accompanied by family. Pt tolerating well. Vital Signs: 01:04 BP 88 / 54; Pulse 99; Resp 18; Temp 99.2; Pulse Ox 97% on R/A; Weight 109.77 kg; Height ea 5 ft. 11 in. (180.34 cm); Pain 10/10; 02:28 BP 92 / 56; Pulse 80; Resp 19; Pulse Ox 97% on 30% Venturi mask; mg2 03:14 BP 97 / 58; Pulse 79; Resp 18; Temp 98.9; Pulse Ox 97% on 30% Venturi mask; mg2 01:04 Body Mass Index 33.75 (109.77 kg, 180.34 cm) ea ED Course: 01:04 Patient arrived in ED. ea 01:04 Josselin Rosa, SHAI is Primary Nurse. ea 01:05 Colleen Salvador MD is Attending Physician. ma2 01:06 Triage completed. ea 01:07 Arm band placed on right wrist. Patient placed in an exam room, on a stretcher, on ea pulse oximetry. 01:07 Patient has correct armband on for positive identification. Bed in low position. Call ea light in reach. 01:27 Radiology exam delayed due to Nursing attempting to start an IV for administration of kw1 pain medication. 01:46 Radiology exam delayed due to Nursing attempting to start an IV for administration of kw1 pain medication. 01:53 Inserted saline lock: 22 gauge in right hand, using aseptic technique. Blood collected. mg2 01:56 No provider procedures requiring assistance completed. mg2 02:29 Notified ED physician of a critical lab result(s). elevated Creatinine results reported sg to . 02:31 CT Pelvis wo Cont In Process Unspecified. EDMS 03:25 IV discontinued, intact, bleeding controlled, No redness/swelling at site. Pressure ea dressing applied. Administered Medications: 01:55 Not Given (Hemodynamic Parameters): morphine 4 mg IVP once; RASS on ADMIN: Combtv4, mg2 Very Agttd3, Agttd2, Rstlss1, AlertClm0, Drwsy-1, Lt Sdtn-2, Mod Sdtn-3, Dp Sdtn-4, UnArsble-5 01:55 Drug: Zofran (Ondansetron) 4 mg Route: IVP; Site: right hand; mg2 03:00 Follow up: Response: No adverse reaction ea 03:37 Follow up: Response: No adverse reaction; Marked relief of symptoms mg2 01:55 Drug: MethylPrednisoLONE 80 mg Route: IVP; Site: right hand; mg2 03:00 Follow up: Response: No adverse reaction ea 03:37 Follow up: Response: No adverse reaction mg2 01:56 Drug: fentaNYL (PF) 75 mcg Route: IVP; Site: right hand; mg2 03:00 Follow up: Response: No adverse reaction ea 03:37 Follow up: Response: No adverse reaction; Marked relief of symptoms; RASS: Alert and mg2 Calm (0) 03:30 Drug: [place] 10 mg-325 mg 1 tabs Route: PO; ea 03:37 Follow up: Response: No adverse reaction; Medication administered at discharge. mg2 03:38 Follow up: Response: Medication administered at discharge. ea Outcome: 03:12 Discharge ordered by . ma2 03:36 Discharged to home via wheelchair, with family. ea 03:36 Condition: stable 03:36 Discharge instructions given to patient, Instructed on discharge instructions, follow up and referral plans. medication usage, Demonstrated understanding of instructions, follow-up care, medications, Prescriptions given X 1. 03:38 Patient left the ED. mg2 Signatures: Dispatcher [employer] EDMS Cliff Leigh RN RN Josselin Rosa RN Yesenia Nielson ea kw1 Colleen Salvador MD MD ma2 [place], Michele, RN RN mg2 Corrections: (The following items were deleted from the chart) 01:47 01:44 Radiology exam delayed due to kw1 kw1
--- NOTE | 2019-10-09 03:13 | EDPHYS ---
Physician Documentation [facility] Name: Sergio Perez Age: 79 yrs Sex: Male : 1940 Arrival Date: 10/09/2019 Time: 01:04 Bed 2 Private MD: ED Physician Colleen Salvador HPI: 10/08 01:43 This 79 yrs old Black Male presents to ER via EMS with complaints of Hip Pain. ma2 01:43 The patient or guardian reports decreased range of motion, pain. The complaints affect ma2 the right leg. The complaints affect the right hip. Associated signs and symptoms: Pertinent negatives: anorexia, diarrhea, dysuria, incontinence, vomiting, weakness. Severity of symptoms: At their worst the symptoms were moderate, in the emergency department the symptoms are unchanged. The patient has not experienced similar symptoms in the past. Historical: - Allergies: 01:08 Demerol; ea 01:08 Iodine; ea 01:08 Meperidine; ea 01:08 SHELLFISH; ea - Home Meds: 02:41 albuterol sulfate 2.5 mg /3 mL (0.083 %) Inhl nebu 1 vial daily [Active]; allopurinol mg2 200 mg Oral 2 tabs daily [Active]; amiodarone 200 mg Oral tab 0.5 tab daily [Active]; aspirin 81 mg Oral chew 1 tab twice daily [Active]; clopidogrel 75 mg Oral tab 1 tab once daily [Active]; Ferrous Sulfate 65 mg Oral 1x daily [Active]; fluticasone 50 mcg/actuation nasal spsn 1 spray 2 times per day [Active]; gabapentin Oral 1 tab 3 times per day [Active]; indura 800 mg 2 tabs before each meal TID [Active]; ipratropium bromide 0.02 % inhalation soln 2.5 mL 4 times per day [Active]; nitroglycerin 0.4 mg Oral as needed [Active]; omeprazole 20 mg Oral chew twice a day [Active]; Tums Oral 2 tabs per meal [Active]; vitamin A 8,000 unit Oral cap 1 cap once daily [Active]; vitamin d1 tablet 2000 IU daily [Active]; zinc sulfate 220 (50) mg Oral cap daily [Active]; - PMHx: 01:08 CHF; COPD; Diabetes - NIDDM; Dialysis; M-W-F; ESRD; Gout; GERD; Pacemaker; with defib; ea Hypertension; Anemia; - Immunization history:: Adult Immunizations up to date. - Social history:: Patient/guardian denies using alcohol, street drugs, The patient lives with family, Smoking status: Patient denies any tobacco usage or history of. - Family history:: not pertinent. ROS: 01:43 Constitutional: Negative for fever, chills, and weight loss. ma2 01:43 All other systems are negative. Exam: 01:43 Constitutional: This is a well developed, well nourished patient who is awake, alert, ma2 and in no acute distress. Neck: Trachea midline, no thyromegaly or masses palpated, and no cervical lymphadenopathy. Supple, full range of motion without nuchal rigidity, or vertebral point tenderness. No Meningismus. Chest/axilla: Normal chest wall appearance and motion. Nontender with no deformity. No lesions are appreciated. Cardiovascular: Regular rate and rhythm with a normal S1 and S2. No gallops, murmurs, or rubs. Normal PMI, no JVD. No pulse deficits. Respiratory: Lungs have equal breath sounds bilaterally, clear to auscultation and percussion. No rales, rhonchi or wheezes noted. No increased work of breathing, no retractions or nasal flaring. Abdomen/GI: Soft, non-tender, with normal bowel sounds. No distension or tympany. No guarding or rebound. No evidence of tenderness throughout. Back: No spinal tenderness. No costovertebral tenderness. Full range of motion. MS/ Extremity: right hip ttp and limited rom, Pulses equal, no cyanosis. Neurovascular intact. Full, normal range of motion. Neuro: Awake and alert, GCS 15, oriented to person, place, time, and situation. Cranial nerves II-XII grossly intact. Motor strength 5/5 in all extremities. Sensory grossly intact. Cerebellar exam normal. Normal gait. Vital Signs: 01:04 BP 88 / 54; Pulse 99; Resp 18; Temp 99.2; Pulse Ox 97% on R/A; Weight 109.77 kg; Height ea 5 ft. 11 in. (180.34 cm); Pain 10/10; 02:28 BP 92 / 56; Pulse 80; Resp 19; Pulse Ox 97% on 30% Venturi mask; mg2 03:14 BP 97 / 58; Pulse 79; Resp 18; Temp 98.9; Pulse Ox 97% on 30% Venturi mask; mg2 01:04 Body Mass Index 33.75 (109.77 kg, 180.34 cm) ea MDM: 01:05 Patient medically screened. [facility] 01:43 Differential diagnosis: hip fracture, intertrochanteric fracture, femoral neck wi2 fracture, femoral shaft fracture, bursitis, arthritis, strain. 03:11 Data reviewed: vital signs, nurses notes. Counseling: I had a detailed discussion with [facility] the patient and/or guardian regarding: the historical points, exam findings, and any diagnostic results supporting the discharge/admit diagnosis, the presence of at least one elevated blood pressure reading (>120/80) during this emergency department visit, the need for outpatient follow up. Response to treatment: the patient's symptoms have markedly improved after treatment. 10/08 01:08 Order name: CBC w/o diff; Complete Time: 03:07 [facility] 10/08 01:08 Order name: CMP; Complete Time: 03:07 [facility] 10/08 01:08 Order name: CT Pelvis wo Cont wi2 Administered Medications: 01:55 Not Given (Hemodynamic Parameters): morphine 4 mg IVP once; RASS on ADMIN: Combtv4, mg2 Very Agttd3, Agttd2, Rstlss1, AlertClm0, Drwsy-1, Lt Sdtn-2, Mod Sdtn-3, Dp Sdtn-4, UnArsble-5 01:55 Drug: Zofran (Ondansetron) 4 mg Route: IVP; Site: right hand; mg2 03:00 Follow up: Response: No adverse reaction ea 03:37 Follow up: Response: No adverse reaction; Marked relief of symptoms mg2 01:55 Drug: MethylPrednisoLONE 80 mg Route: IVP; Site: right hand; mg2 03:00 Follow up: Response: No adverse reaction ea 03:37 Follow up: Response: No adverse reaction mg2 01:56 Drug: fentaNYL (PF) 75 mcg Route: IVP; Site: right hand; mg2 03:00 Follow up: Response: No adverse reaction ea 03:37 Follow up: Response: No adverse reaction; Marked relief of symptoms; RASS: Alert and mg2 Calm (0) 03:30 Drug: [place] 10 mg-325 mg 1 tabs Route: PO; ea 03:37 Follow up: Response: No adverse reaction; Medication administered at discharge. mg2 03:38 Follow up: Response: Medication administered at discharge. ea Disposition: 10/09/19 03:12 Discharged to Home. Impression: Pain in right hip. - Condition is Stable. - Discharge Instructions: Hip Pain. - Prescriptions for Diclofenac Sodium 75 mg Oral Tablet Sustained Release - take 1 tablet by ORAL route 2 times per day; 30 tablet. Medrol (Josh) 4 mg Oral Tablets, Dose Pack - take 1 tablet by ORAL route as directed - follow package instructions; 1 packet. - Medication Reconciliation Form, Thank You Letter, Antibiotic Education, Prescription Opioid Use form. - Follow up: Private Physician; When: Tomorrow; Reason: Continuance of care. Signatures: Dispatcher [employer] Josselin Godwin RN RN ea Alzahri, Mohammad, MD MD ma2 Carlos Walker RN RN mg2 Corrections: (The following items were deleted from the chart) 03:38 03:12 10/09/2019 03:12 Discharged to Home. Impression: Pain in right hip. Condition is mg2 Stable. Prescriptions for Diclofenac Sodium 75 mg Oral Tablet Sustained Release - take 1 tablet by ORAL route 2 times per day; 30 tablet, Medrol (Josh) 4 mg Oral Tablets, Dose Pack - take 1 tablet by ORAL route as directed - follow package instructions; 1 packet. and Forms are Medication Reconciliation Form, Thank You Letter, Antibiotic Education, Prescription Opioid Use. Follow up: Private Physician; When: Tomorrow; Reason: Continuance of care. lalo
[2019-10-09] MEDS ORDERED: HYDROCODONE/APAP 10/325 TAB ONE (03:38)
[2019-10-09 03:47] VITALS: O2SAT 97
[2019-10-09 03:57] VITALS: BP 97/58; TEMP 98.9
--- NOTE | 2019-10-09 10:59 | RAD REPORT ---
EXAM DESCRIPTION: CT - Pelvis Wo Cont - 10/09/2019 3:25 am CLINICAL HISTORY: Right hip pain COMPARISON: None. TECHNIQUE: Axial unenhanced CT imaging of the pelvis. Reformatted coronal and sagittal images review ed. Examination was performed according to our departmental dose-optimization program, which includes aut omated exposure control, adjustment of the mA and/or kV according to patient size and/or use of itera tive reconstruction technique. FINDINGS: BONES AND SOFT TISSUES: No acute fracture within the bony pelvis or proximal femurs. Ther e is no hip effusion or dislocation. Intact sacroiliac joints and symphysis pubis. Moderate degenerat go changes in the lower lumbosacral spine. Mild L4-5 diffuse disc bulge. RETROPERITONEAL VESSELS/NODES: Significant abdominal aorta and iliac artery atherosclerosis. No aneu rysm. Normal caliber inferior vena cava. No adenopathy. BOWEL: Include small bowel loops appear normal. Normal appendix in the right lower quadrant. There i s mild scattered diverticulosis the included segments of the colon and sigmoid. MESENTERY/PERITONEUM: There is no free air. There is no ascites. BLADDER: Unremarkable bladder. GENITAL ORGANS: Prostatic calcifications are present. IMPRESSION: 1. No acute fracture within the pelvis or hips. No hip effusion. 2. Mild diverticulosis without diverticulitis.. 3. Mild L4-5 diffuse disc bulge. Electronically signed by: Yu Machado DO 10/09/2019 2:50 AM CDT Due to temporary technical issues with the PACS/Fluency reporting system, reports are being signed by the in house radiologist without review as a courtesy to ensure prompt reporting. The interpreting r adiologist is fully responsible for the content of the report.
== END 2019-10-09 03:38 | disposition home or self-care (01) ==
LOC: ER 01:02
DX: M25.551 Pain in right hip (principal); I12.0 Hypertensive chronic kidney disease with stage 5 chronic kidney disease or end stage renal disease; E11.22 Type 2 diabetes mellitus with diabetic chronic kidney disease; N18.6 End stage renal disease; Z99.2 Dependence on renal dialysis; Z79.4 Long term (current) use of insulin; Z79.82 Long term (current) use of aspirin; Z88.5 Allergy status to narcotic agent; Z88.8 Allergy status to other drugs, medicaments and biological substances; Z91.013 Allergy to seafood; Z91.048 Other nonmedicinal substance allergy status
CPT/HCPCS: 36415; 85027; 80053; 72192; 96375; 96374; 99284; J3010; J2405; J2920

== ENCOUNTER 2019-10-22 20:12 | Observation (INO) | payer OTHER, MEDICARE ==
--- OUTSIDE RECORDS SUMMARY | 2019-10-22 20:17 | XMS REPORT | Clinical Summary ---
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7 C (98 F) 06/09/2019 5:00 PM [facility] Respiratory Rate 22 06/09/2019 7:30 PM [facility] Oxygen Saturation 100% 06/09/2019 7:16 PM [facility] Inhaled Oxygen Concentration - - Weight 124 kg (274 lb 7.6 oz) 06/09/2019 6:00 AM [facility]IT[facility]ER[facility] Height 180.3 cm (5' 11") 05/28/2019 9:15 AM [facility] Body Mass Index 38.28 05/28/2019 9:15 AM [facility] Plan of Treatment Health Maintenance Due Date Last Done Comments DIABETIC RETINAL EYE EXAM 1940 DIABETIC FOOT EXAM 01/12/1950 URINE MICROALBUMIN 01/12/1949 SHINGLES VACCINES (#1) 01/12/1989 65+ PNEUMOCOCCAL VACCINE (1 of 2 - PCV13) 01/13/2004 INFLUENZA VACCINE 11/12/2019 Implants Implanted Type Area Learning Designer Device Shelf Model / Identifier Expiration Serial / Date Lot Device Vasclr Clsr Vasoactive Intstnl Peptd 8fr Angio- Seal - [id number] Cardiovascular N/A: 06/10/2017 [id number] / Implanted: 08/07/2016 at [facility] (Quantity not on file) Implants N/A / [id number] Stent Bili Protege Everflex Slf-Xpndbl 120cm [id number] - [id number] Coronary Stents N/A: [employer] 05/03/2017 [id number] 12 0 / Implanted: 08/07/2016 at [facility] (Quantity not on file) N/A / [id number] Procedures Procedure Name Priority Date/Time Associated Comments Diagnosis POC GLUCOSE Routine 06/09/2019 4:35 Results for this PM [facility] procedure are i n the results section. POC GLUCOSE Routine 06/09/2019 12:23 Results for this PM [facility] procedure are i n the results section. POC GLUCOSE Routine 06/09/2019 11:19 Results for this AM [facility] procedure are i n the results section. POC GLUCOSE Routine 06/09/2019 8:08 Results for this AM [facility] procedure are i n the results section. POC GLUCOSE Routine 06/09/2019 5:00 Results for this AM [facility] procedure are i n the results section. HC COMPLETE BLD COUNT Routine 06/09/2019 4:45 Re sults for this W/AUTO DIFF AM [facility] procedure are i n the results section. PARTIAL THROMBOPLASTIN Routine 06/09/2019 4:45 R esults for this TIME (PTT) AM [facility] procedure are i n the results section. POC GLUCOSE Routine 06/09/2019 2:07 Results for this AM [facility] procedure are i n the results section. POC GLUCOSE Routine 06/08/2019 8:30 Results for this PM [facility] procedure are i n the results section. POC GLUCOSE Routine 06/08/2019 5:13 Results for this PM [facility] procedure are i n the results section. HEMODIALYSIS Routine 06/08/2019 3:06 PM [facility] XR CHEST 1 VW PORTABLE Routine 06/08/2019 12:32 R esults for this PM [facility] procedure are i n the results section. POC GLUCOSE Routine 06/08/2019 12:07 Results for this PM [facility] procedure are i n the results section. POC GLUCOSE Routine 06/08/2019 7:38 Results for this AM [facility] procedure are i n the results section. ESTIMATED GFR Routine 06/08/2019 5:50 Results fo r this AM [facility] procedure are i n the results section. PHOSPHORUS LEVEL Routine 06/08/2019 5:50 Results for this AM [facility] procedure are i n the results section. MAGNESIUM LEVEL Routine 06/08/2019 5:50 Results for this AM [facility] procedure are i n the results section. BASIC METABOLIC PANEL Routine 06/08/2019 5:50 Re sults for this AM [facility] procedure are i n the results section. HC COMPLETE BLD COUNT Routine 06/08/2019 5:50 Re sults for this W/AUTO DIFF AM [facility] procedure are i n the results section. PARTIAL THROMBOPLASTIN Routine 06/08/2019 5:50 R esults for this TIME (PTT) AM [facility]IL[facility]ER[facility]IST procedure are i n the results section. POC GLUCOSE Routine 06/08/2019 4:26 Results for this AM [facility] procedure are i n the results section. POC GLUCOSE Routine 06/08/2019 12:18 Results for this AM [facility] procedure are i n the results section. POC GLUCOSE Routine 06/07/2019 8:16 Results for this PM [facility] procedure are i n the results section. POC GLUCOSE Routine 06/07/2019 4:22 Results for this PM [facility] procedure are i n the results section. POC GLUCOSE Routine 06/07/2019 3:50 Results for this PM [facility] procedure are i n the results section. POC GLUCOSE Routine 06/07/2019 11:39 Results for this AM [facility] procedure are i n the results section. ARTERIAL BLOOD GAS Routine 06/07/2019 11:34 Resul ts for this AM [facility] procedure are i n the results section. HEMODIALYSIS Routine 06/07/2019 10:44 AM [facility]IST POC GLUCOSE Routine 06/07/2019 7:42 Results for this AM [facility] procedure are i n the results section. US DUPLEX VENOUS LOWER Routine 06/07/2019 6:20 R esults for this EXTREMITY BILATERAL AM [facility]IST procedur e are in the results section. POC GLUCOSE Routine 06/07/2019 4:27 Results for this AM [facility] procedure are i n the results section. CBC HEMOGRAM Routine 06/07/2019 3:50 Results for this AM [facility] procedure are i n the results section. PARTIAL THROMBOPLASTIN Routine 06/07/2019 3:50 R esults for this TIME (PTT) AM [facility] procedure are i n the results section. POC GLUCOSE Routine 06/07/2019 12:19 Results for this AM [facility] procedure are i n the results section. POC GLUCOSE Routine 06/06/2019 8:19 Results for this PM [facility] procedure are i n the results section. POC GLUCOSE Routine 06/06/2019 6:13 Results for this PM [facility] procedure are i n the results section. OCCULT BLOOD, STOOL Routine 06/06/2019 5:50 Resu lts for this PM [facility] procedure are i n the results section. POC GLUCOSE Routine 06/06/2019 2:46 Results for this PM [facility] procedure are i n the results section. POC GLUCOSE Routine 06/06/2019 12:21 Results for this PM [facility] procedure are i n the results section. POC GLUCOSE Routine 06/06/2019 8:00 Results for this AM [facility] procedure are i n the results section. POC GLUCOSE Routine 06/06/2019 4:29 Results for this AM [facility] procedure are i n the results section. ESTIMATED GFR Routine 06/06/2019 3:35 Results fo r this AM [facility] procedure are i n the results section. PARTIAL THROMBOPLASTIN Routine 06/06/2019 3:35 R esults for this TIME (PTT) AM [facility] procedure are i n the results section. COMPREHENSIVE METABOLIC Routine 06/06/2019 3:35 Results for this PANEL AM [facility] procedure are i n the results section. PHOSPHORUS LEVEL Routine 06/06/2019 3:35 Results for this AM [facility] procedure are i n the results section. MAGNESIUM LEVEL Routine 06/06/2019 3:35 Results for this AM [facility] procedure are i n the results section. HC COMPLETE BLD COUNT Routine 06/06/2019 3:35 Re sults for this W/AUTO DIFF AM [facility] procedure are i n the results section. POC GLUCOSE Routine 06/06/2019 12:25 Results for this AM [facility] procedure are i n the results section. ARTERIAL BLOOD GAS STAT 06/05/2019 9:42 Resul ts for this PM [facility] procedure are i n the results section. POC GLUCOSE Routine 06/05/2019 8:16 Results for this PM [facility] procedure are i n the results section. POC GLUCOSE Routine 06/05/2019 5:20 Results for this PM [facility] procedure are i n the results section. POC GLUCOSE Routine 06/05/2019 4:15 Results for this PM [facility] procedure are i n the results section. POC GLUCOSE Routine 06/05/2019 12:10 Results for this PM [facility] procedure are i n the results section. XR CHEST 1 VW PORTABLE Routine 06/05/2019 8:59 R esults for this AM [facility] procedure are i n the results section. POC GLUCOSE Routine 06/05/2019 8:18 Results for this AM [facility] procedure are i n the results section. ESTIMATED GFR Routine 06/05/2019 4:20 Results fo r this AM [facility] procedure are i n the results section. PARTIAL THROMBOPLASTIN Routine 06/05/2019 4:20 R esults for this TIME (PTT) AM [facility] procedure are i n the results section. COMPREHENSIVE METABOLIC Routine 06/05/2019 4:20 Results for this PANEL AM [facility] procedure are i n the results section. PHOSPHORUS LEVEL Routine 06/05/2019 4:20 Results for this AM [facility] procedure are i n the results section. MAGNESIUM LEVEL Routine 06/05/2019 4:20 Results for this AM [facility] procedure are i n the results section. HC COMPLETE BLD COUNT Routine 06/05/2019 4:20 Re sults for this W/AUTO DIFF AM [facility]IT[facility] procedure are i n the results section. POC GLUCOSE Routine 06/05/2019 4:18 Results for this AM [facility] procedure are i n the results section. POC GLUCOSE Routine 06/05/2019 12:57 Results for this AM [facility] procedure are i n the results section. TRANSFUSE RED BLOOD Routine 06/04/2019 10:32 CELLS PM [facility]IST TRANSFUSE RED BLOOD Routine 06/04/2019 9:21 CELLS PM [facility]IST POC GLUCOSE Routine 06/04/2019 8:57 Results for this PM [facility] procedure are i n the results section. POC GLUCOSE Routine 06/04/2019 4:48 Results for this PM [facility] procedure are i n the results section. PARTIAL THROMBOPLASTIN Timed 06/04/2019 3:15 R esults for this TIME (PTT) PM [facility] procedure are i n the results section. POC GLUCOSE Routine 06/04/2019 12:13 Results for this PM [facility] procedure are i n the results section. XR CHEST 1 VW PORTABLE Routine 06/04/2019 10:45 R esults for this AM [facility] procedure are i n the results section. CBC HEMOGRAM Routine 06/04/2019 8:44 Results for this AM [facility] procedure are i n the results section. POC GLUCOSE Routine 06/04/2019 7:39 Results for this AM [facility] procedure are i n the results section. HEMODIALYSIS Routine 06/04/2019 7:32 AM [facility]IST SMEAR REVIEW Routine 06/04/2019 5:50 Results for this AM [facility] procedure are i n the results section. ESTIMATED GFR Routine 06/04/2019 5:50 Results fo r this AM [facility] procedure are i n the results section. PARTIAL THROMBOPLASTIN Routine 06/04/2019 5:50 R esults for this TIME (PTT) AM [facility] procedure are i n the results section. COMPREHENSIVE METABOLIC Routine 06/04/2019 5:50 Results for this PANEL AM [facility] procedure are i n the results section. PHOSPHORUS LEVEL Routine 06/04/2019 5:50 Results for this AM [facility] procedure are i n the results section. MAGNESIUM LEVEL Routine 06/04/2019 5:50 Results for this AM [facility] procedure are i n the results section. HC COMPLETE BLD COUNT Routine 06/04/2019 5:50 Re sults for this W/AUTO DIFF AM [facility] procedure are i n the results section. POC GLUCOSE Routine 06/04/2019 4:19 Results for this AM [facility] procedure are i n the results section. POC GLUCOSE Routine 06/04/2019 12:27 Results for this AM [facility] procedure are i n the results section. ANTI XA, UNFRACTIONATED Routine 06/03/2019 11:20 Results for this PM [facility] procedure are i n the results section. CBC HEMOGRAM Routine 06/03/2019 11:20 Results for this PM [facility] procedure are i n the results section. PARTIAL THROMBOPLASTIN Routine 06/03/2019 11:20 R esults for this TIME (PTT) PM [facility] procedure are i n the results section. PROTHROMBIN TIME WITH Routine 06/03/2019 11:20 Re sults for this INR PM [facility] procedure are i n the results section. POC GLUCOSE Routine 06/03/2019 8:05 Results for this PM [facility] procedure are i n the results section. CT ANGIOGRAM PE CHEST STAT 06/03/2019 7:51 Re sults for this PM [facility] procedure are i n the results section. POC GLUCOSE Routine 06/03/2019 4:44 Results for this PM [facility] procedure are i n the results section. ECG 12-LEAD STAT 06/03/2019 2:44 Results for this PM [facility] procedure are i n the results section. D-DIMER Routine 06/03/2019 2:43 Results for this PM [facility] procedure are i n the results section. XR CHEST 1 VW PORTABLE STAT 06/03/2019 2:38 R esults for this PM [facility] procedure are i n the results section. RESPIRATORY PATHOGEN Routine 06/03/2019 2:36 Res ults for this PANEL PM [facility] procedure are i n the results section. ARTERIAL BLOOD GAS STAT 06/03/2019 1:48 Resul ts for this PM [facility] procedure are i n the results section. POC GLUCOSE Routine 06/03/2019 12:18 Results for this PM [facility] procedure are i n the results section. XR CHEST 1 VW PORTABLE Timed 06/03/2019 10:58 R esults for this AM [facility] procedure are i n the results section. POC GLUCOSE Routine 06/03/2019 8:05 Results for this AM [facility] procedure are i n the results section. POC GLUCOSE Routine 06/03/2019 6:16 Results for this AM [facility] procedure are i n the results section. ESTIMATED GFR Routine 06/03/2019 3:30 Results fo r this AM [facility] procedure are i n the results section. BASIC METABOLIC PANEL Routine 06/03/2019 3:30 Re sults for this AM [facility] procedure are i n the results section. HC COMPLETE BLD COUNT Routine 06/03/2019 3:30 Re sults for this W/AUTO DIFF AM [facility] procedure are i n the results section. POC GLUCOSE Routine 06/03/2019 3:03 Results for this AM [facility] procedure are i n the results section. POC GLUCOSE Routine 06/02/2019 10:08 Results for this PM [facility] procedure are i n the results section. POC GLUCOSE Routine 06/02/2019 8:23 Results for this PM [facility] procedure are i n the results section. POC GLUCOSE Routine 06/02/2019 4:39 Results for this PM [facility] procedure are i n the results section. ARTERIAL BLOOD GAS STAT 06/02/2019 3:25 Resul ts for this PM [facility] procedure are i n the results section. XR CHEST 1 VW PORTABLE STAT 06/02/2019 3:20 R esults for this PM [facility] procedure are i n the results section. TRANSFUSE RED BLOOD Routine 06/02/2019 3:17 CELLS PM [facility] POC GLUCOSE Routine 06/02/2019 1:34 Results for this PM [facility] procedure are i n the results section. PREPARE RBC Routine 06/02/2019 8:34 Results for this AM [facility] procedure are i n the results section. PREPARE RBC Routine 06/02/2019 8:34 Results for this AM [facility] procedure are i n the results section. TYPE AND SCREEN Routine 06/02/2019 8:34 Results for this AM [facility] procedure are i n the results section. CBC HEMOGRAM Routine 06/02/2019 5:20 Results for this AM [facility] procedure are i n the results section. POC GLUCOSE Routine 06/01/2019 10:56 Results for this PM [facility] procedure are i n the results section. POC GLUCOSE Routine 06/01/2019 9:44 Results for this PM [facility] procedure are i n the results section. HEMODIALYSIS Routine 06/01/2019 5:08 PM [facility]IST POC GLUCOSE Routine 06/01/2019 5:04 Results for this PM [facility] procedure are i n the results section. CV PYP SCAN FOR CARDIAC Routine 06/01/2019 3:12 Results for this AMYLOIDOSIS PM [facility] procedure are i n the results section. POC GLUCOSE Routine 06/01/2019 12:04 Results for this PM [facility] procedure are i n the results section. ECG 12-LEAD STAT 06/01/2019 11:32 Results for this AM [facility] procedure are i n the results section. XR CHEST 1 VW PORTABLE STAT 06/01/2019 11:20 R esults for this AM [facility] procedure are i n the results section. POC GLUCOSE Routine 06/01/2019 7:50 Results for this AM [facility] procedure are i n the results section. ESTIMATED GFR Routine 06/01/2019 5:20 Results fo r this AM [facility] procedure are i n the results section. BASIC METABOLIC PANEL Routine 06/01/2019 5:20 Re sults for this AM [facility] procedure are i n the results section. KAPPA LAMBDA FREE LIGHT Routine 06/01/2019 5:20 Results for this CHAIN WITH RATIO AM [facility] procedure a re in the results section. POC GLUCOSE Routine 05/31/2019 9:16 Results for this PM [facility] procedure are i n the results section. ECG 12-LEAD STAT 05/31/2019 5:44 Results for this PM [facility] procedure are i n the results section. ESTIMATED GFR STAT 05/31/2019 5:33 Results fo r this PM [facility] procedure are i n the results section. MAGNESIUM LEVEL STAT 05/31/2019 5:33 Results for this PM [facility] procedure are i n the results section. BASIC METABOLIC PANEL STAT 05/31/2019 5:33 Re sults for this PM [facility] procedure are i n the results section. POC GLUCOSE Routine 05/31/2019 4:58 Results for this PM [facility] procedure are i n the results section. CT CARDIAC CALCIUM Routine 05/31/2019 3:35 Resul ts for this SCORE PM [facility] procedure are i n the results section. POC GLUCOSE Routine 05/31/2019 12:29 Results for this PM [facility] procedure are i n the results section. HEMODIALYSIS Routine 05/31/2019 9:45 AM [facility] POC GLUCOSE Routine 05/31/2019 7:59 Results for this AM [facility] procedure are i n the results section. CBC HEMOGRAM Routine 05/31/2019 4:10 Results for this AM [facility] procedure are i n the results section. T3, FREE Routine 05/31/2019 4:10 Results for this AM [facility] procedure are i n the results section. ESTIMATED GFR Routine 05/31/2019 12:00 Results fo r this AM [facility] procedure are i n the results section. PHOSPHORUS LEVEL Routine 05/31/2019 12:00 Results for this AM [facility] procedure are i n the results section. IONIZED CALCIUM Routine 05/31/2019 12:00 Results for this AM [facility] procedure are i n the results section. MAGNESIUM LEVEL Routine 05/31/2019 12:00 Results for this AM [facility] procedure are i n the results section. BASIC METABOLIC PANEL Routine 05/31/2019 12:00 Re sults for this AM [facility] procedure are i n the results section. POC GLUCOSE Routine 05/30/2019 8:56 Results for this PM [facility] procedure are i n the results section. TTE COMPLETE, WO Routine 05/30/2019 7:00 Results for this CONTRAST, W DOPPLER PM [facility] [place] ([id number]) the results section. POC GLUCOSE Routine 05/30/2019 5:24 Results for this PM [facility] procedure are i n the results section. US DUPLEX ARTERIAL STAT 05/30/2019 5:00 Resul ts for this UPPER EXTREMITY PM [facility] procedure ar e in BILATERAL the results section. US ANKLE BRACHIAL INDEX Routine 05/30/2019 3:30 Results for this PM [facility] procedure are i n the results section. US DUPLEX ARTERIAL Routine 05/30/2019 3:30 Resul ts for this LOWER EXTREMITY PM [facility] procedure ar e in BILATERAL the results section. POC GLUCOSE Routine 05/30/2019 11:29 Results for this AM [facility] procedure are i n the results section. ARTERIAL BLOOD GAS Routine 05/30/2019 11:24 Resul ts for this AM [facility] procedure are i n the results section. LDH Routine 05/30/2019 11:05 Results for this AM [facility] procedure are i n the results section. POC GLUCOSE Routine 05/30/2019 7:30 Results for this AM [facility] procedure are i n the results section. XR CHEST 1 VW PORTABLE Routine 05/30/2019 4:10 R esults for this AM [facility] procedure are i n the results section. POC GLUCOSE Routine 05/30/2019 3:58 Results for this AM [facility] procedure are i n the results section. ESTIMATED GFR Routine 05/30/2019 12:50 Results fo r this AM [facility] procedure are i n the results section. PHOSPHORUS LEVEL Routine 05/30/2019 12:50 Results for this AM [facility] procedure are i n the results section. MAGNESIUM LEVEL Routine 05/30/2019 12:50 Results for this AM [facility] procedure are i n the results section. IONIZED CALCIUM Routine 05/30/2019 12:50 Results for this AM [facility] procedure are i n the results section. BASIC METABOLIC PANEL Routine 05/30/2019 12:50 Re sults for this AM [facility] procedure are i n the results section. T4, FREE Routine 05/30/2019 12:50 Results for this AM [facility] procedure are i n the results section. THYROID STIMULATING Routine 05/30/2019 12:50 Resu lts for this HORMONE AM [facility] procedure are i n the results section. URIC ACID LEVEL Routine 05/30/2019 12:50 Results for this AM [facility] procedure are i n the results section. MANUAL DIFFERENTIAL Routine 05/30/2019 12:20 Resu lts for this AM [facility] procedure are i n the results section. CBC WITH PLATELET AND Routine 05/30/2019 12:20 Re sults for this DIFFERENTIAL AM [facility] procedure are i n the results section. POC GLUCOSE Routine 05/29/2019 11:45 Results for this PM [facility] procedure are i n the results section. POC GLUCOSE Routine 05/29/2019 7:47 Results for this PM [facility] procedure are i n the results section. POC GLUCOSE Routine 05/29/2019 4:16 Results for this PM VISION REHABILITATION THERAPIST procedure are i n the results section. POC GLUCOSE Routine 05/29/2019 11:23 Results for this AM VISION REHABILITATION THERAPIST procedure are i n the results section. HEPARIN PF4 ANTIBODY Routine 05/29/2019 9:41 Res ults for this (IGG) AM VISION REHABILITATION THERAPIST procedure are i n the results section. POC GLUCOSE Routine 05/29/2019 7:36 Results for this AM VISION REHABILITATION THERAPIST procedure are i n the results section. XR CHEST 1 VW PORTABLE Routine 05/29/2019 4:02 R esults for this AM VISION REHABILITATION THERAPIST procedure are i n the results section. POC GLUCOSE Routine 05/29/2019 4:00 Results for this AM VISION REHABILITATION THERAPIST procedure are i n the results section. ECG 12-LEAD Routine 05/29/2019 3:42 Results for this AM VISION REHABILITATION THERAPIST procedure are i n the results section. HC COMPLETE BLD COUNT Routine 05/29/2019 1:00 Re sults for this W/AUTO DIFF AM VISION REHABILITATION THERAPIST procedure are i n the results section. ESTIMATED GFR Routine 05/29/2019 12:33 Results fo r this AM VISION REHABILITATION THERAPIST procedure are i n the results section. PHOSPHORUS LEVEL Routine 05/29/2019 12:33 Results for this AM VISION REHABILITATION THERAPIST procedure are i n the results section. MAGNESIUM LEVEL Routine 05/29/2019 12:33 Results for this AM VISION REHABILITATION THERAPIST procedure are i n the results section. IONIZED CALCIUM Routine 05/29/2019 12:33 Results for this AM VISION REHABILITATION THERAPIST procedure are i n the results section. BASIC METABOLIC PANEL Routine 05/29/2019 12:33 Re sults for this AM VISION REHABILITATION THERAPIST procedure are i n the results section. HC COMPLETE BLD COUNT Routine 05/29/2019 12:00 Re sults for this W/AUTO DIFF AM VISION REHABILITATION THERAPIST procedure are i n the results section. POC GLUCOSE Routine 05/28/2019 11:52 Results for this PM VISION REHABILITATION THERAPIST procedure are i n the results section. POC GLUCOSE Routine 05/28/2019 8:25 Results for this PM VISION REHABILITATION THERAPIST procedure are i n the results section. POC GLUCOSE Routine 05/28/2019 4:33 Results for this PM VISION REHABILITATION THERAPIST procedure are i n the results section. HEPATITIS B SURFACE Routine 05/28/2019 1:50 Resu lts for this ANTIGEN PM VISION REHABILITATION THERAPIST procedure are i n the results section. POC GLUCOSE Routine 05/28/2019 11:30 Results for this AM VISION REHABILITATION THERAPIST procedure are i n the results section. HEMODIALYSIS Routine 05/28/2019 11:17 AM VISION REHABILITATION THERAPIST HC COMPLETE BLD COUNT Routine 05/28/2019 10:05 Re sults for this W/AUTO DIFF AM VISION REHABILITATION THERAPIST procedure are i n the results section. XR CHEST 1 VW PORTABLE Routine 05/28/2019 10:02 R esults for this AM VISION REHABILITATION THERAPIST procedure are i n the results section. CONSULT CARDIAC REHAB Routine 05/28/2019 9:42 PHASE 1 AM VISION REHABILITATION THERAPIST ECG 12-LEAD STAT 05/28/2019 9:42 Results for this AM VISION REHABILITATION THERAPIST procedure are i n the results section. HEMOGLOBIN A1C Routine 05/28/2019 9:41 Results f or this AM VISION REHABILITATION THERAPIST procedure are i n the results section. ESTIMATED GFR Routine 05/28/2019 9:41 Results fo r this AM VISION REHABILITATION THERAPIST procedure are i n the results section. TYPE AND SCREEN Routine 05/28/2019 9:41 Results for this AM VISION REHABILITATION THERAPIST procedure are i n the results section. PARTIAL THROMBOPLASTIN Routine 05/28/2019 9:41 R esults for this TIME (PTT) AM VISION REHABILITATION THERAPIST procedure are i n the results section. PROTHROMBIN TIME WITH Routine 05/28/2019 9:41 Re sults for this INR AM VISION REHABILITATION THERAPIST procedure are i n the results section. IONIZED CALCIUM Routine 05/28/2019 9:41 Results for this AM VISION REHABILITATION THERAPIST procedure are i n the results section. PHOSPHORUS LEVEL Routine 05/28/2019 9:41 Results for this AM VISION REHABILITATION THERAPIST procedure are i n the results section. MAGNESIUM LEVEL Routine 05/28/2019 9:41 Results for this AM VISION REHABILITATION THERAPIST procedure are i n the results section. BASIC METABOLIC PANEL Routine 05/28/2019 9:41 Re sults for this AM VISION REHABILITATION THERAPIST procedure are i n the results section. POC GLUCOSE Routine 05/28/2019 9:39 Results for this AM VISION REHABILITATION THERAPIST procedure are i n the results section. after 10/21/2018 Results POC glucose (06/09/2019 4:35 PM VISION REHABILITATION THERAPIST)Only the most recent of74 resultswithin the time period is included. Pathologist Sig nature POC glucose 238 (H) 65 - 99 mg/dL [facility] Comment: HOSPITAL Drawing Checker Name: Veena Ortiz Device ID: [id number] Chartable: [facility] Notified RN Specimen Performing Organization Address City/State/Zipcode Phone Number [facility] DEPARTMENT OF PATHOLOGY AND [address] [place] [address] GEN[address] [address] Partial thromboplastin time, activated (06/09/2019 4:45 AM VISION REHABILITATION THERAPIST)Only the most recent of9 resultswithin the time period is included. PTT 52.8 (H) 23.0 - 36.0 [facility] Comment: sec HOSPITAL PTT therapeutic range for unfractionated heparin is 61.0-112.0 seconds which corresponds to Anti-Xa 0.3-0.7 U/ml. Specimen Blood Performing Organization Address [facility] Cent[facility]ode Phone Number [facility] DEPARTMENT OF PATHOLOGY AND [address] [place], [place] [address] GENOMIC MEDICINE [facility] [address] [place] [address] CBC with platelet and differential (06/09/2019 4:45 AM VISION REHABILITATION THERAPIST)Only the most recent of10 resultswithin the time period is included. WBC 11.21 (H) 4.50 - 11.00 [facility] k/uL HOSPITAL RBC 3.04 (L) 4.40 - 6.00 [facility] m/[facility] HGB 8.5 (L) 14.0 - 18.0 [facility] g/dL [facility] HCT 29.7 (L) 41.0 - 51.0 % [facility] MCV 97.7 82.0 - 100.0 [facility] MCH 28.0 27.0 - 34.0 pg [facility] MCHC 28.6 (L) 31.0 - 37.0 [facility] RDW - SD 63.7 (H) 37.0 - 55.0 fL [facility] MPV 12.5 8.8 - 13.2 fL [facility] Platelet count 127 (L) 150 - 400 k/uL [facility] Nucleated RBC 0.00 /100 WBC [facility] Neutrophils 78.6 (H) 39.0 - 69.0 % [facility] Lymphocytes 8.8 (L) 25.0 - 45.0 % [facility] Monocytes 10.9 (H) 0.0 - 10.0 % [facility] Eosinophils 1.1 0.0 - 5.0 % [facility] Basophils 0.2 0.0 - 1.0 % [facility] Immature granulocytes 0.4Comment: 0.0 - 1.0 % [facility] "Immature HOSPITAL granulocytes" (promyelocytes , myelocytes, metamyelocytes ) Specimen Blood Performing Organization Address City/[facility] Center[facility]n Phone Number [facility] DEPARTMENT OF PATHOLOGY AND [address] [place], [place] [address] GENOMIC MEDICINE [facility] [address] [place] [address] XR Chest 1 Vw Portable (06/08/2019 12:32 PM VISION REHABILITATION THERAPIST)Only the most recent of10 resultswithin the time [...] Bones: Regional osseous structures appea r stable. [id number] Procedure Note [facility], Radiology Results Incoming - 06/08/2019 12:48 PM VISION REHABILITATION THERAPIST EXAMINATION: XR CHEST 1 VW PORTABLE CLINICAL [...] Bones: Regional osseous structures appea r stable. [facility]ATION[facility]-[id number] Performing Organization Address City/State/Zipcode Phone Number [facility] [address] [place] [address] Estimated GFR (06/08/2019 5:50 AM VISION REHABILITATION THERAPIST)Only the most recent of11 resultswithin the time period is included. Estimated GFR 14 (A) mL/min/1.73 [facility] Comment: m2 HOSPITAL Catergory Units Interpretation G1 [...] 2014. Specimen Plasma specimen Performing Organization Address [facility] Centercomn Phone Number [facility] DEPARTMENT OF PATHOLOGY AND [address] [place] [phone] Phosphorus level (06/08/2019 5:50 AM VISION REHABILITATION THERAPIST)Only the most recent of8 resultswithin the time period is included. Pathologist Sig [facility] Phosphorus 2.5 2.4 - 4.5 mg/dL [facility] L Specimen Plasma specimen Performing Organization Address [facility] Phone Number [facility] DEPARTMENT OF PATHOLOGY AND [address] [place] [address] [address] Magnesium level (06/08/2019 5:50 AM VISION REHABILITATION THERAPIST)Only the most recent of9 resultswithin the time period is included. Pathologist Sig [facility] Magnesium 2.3 1.6 - 2.4 mg/dL [facility] Specimen Plasma specimen Performing Organization Address [facility] Phone Number [facility] DEPARTMENT OF PATHOLOGY AND [address] [place] [address] [phone] [address] Basic metabolic panel (06/08/2019 5:50 AM VISION REHABILITATION THERAPIST)Only the most recent of8 results within the time period is included. Pathologist Sig nature Sodium 135 135 - 148 mEq/L [facility] Potassium 4.2 3.5 - 5.0 mEq/L [facility] Chloride 97 (L) 98 - 112 mEq/L [facility] CO2 26 24 - 31 mEq/L [facility] Anion gap 12@ANIO 7 - 15 mEq/L [facility] BUN 31 (H) 8 - 23 mg/dL [facility] Creatinine 4.21 (H) 0.70 - 1.20 mg/dL [facility] Glucose 117 (H) 65 - 99 mg/dL [facility] Calcium 9.0 8.8 - 10.2 mg/dL [facility] Specimen Plasma specimen Performing Organization Address City/[facility] Centercode Phone Number [facility] DEPARTMENT OF PATHOLOGY AND [address] [place] [address] Arterial blood gas (06/07/2019 11:34 AM VISION REHABILITATION THERAPIST)Only the most recent of5 results within the time period is included. [facility] Sig nature pH, arterial 7.38 7.35 - 7.45 [facility] pCO2, arterial 50 (H) 35 - 45 mmHg [facility] pO2, arterial 76 (L) 80 - 90 mmHg [facility] Bicarbonate, 28.8 (H) 21.0 - 28.0 [facility] mmol/L [facility] Base excess, 4 (H) -2 - 2 mEq/L [facility] O2 saturation, 95 95 - 100 % [facility] Specimen Blood Performing Organization Address City/[facility] Centercode Phone Number [facility] DEPARTMENT OF PATHOLOGY AND [address] [place] [address] Us duplex venous lower extremity (06/07/2019 6:20 AM VISION REHABILITATION THERAPIST) Specimen Narrative Performed At [facility] Vascular U ltrasound Laboratory Lower Extr emity Venous Report [address] [place] [address] Pat.Name: DILLON PEREZ Pat.ID: [id number] .Date: 06/07/2019 Refer.MD: KIMBERLY KHANNA MD Exam Time: 4:51:00 AM Study Type:L E Venous Age: 1001/16/1940,79Y Sex: MALE Sonogrphr: Jamal Lira, BA, BS, RDMS, RVT Pat. Stat.:Inpatient Room: [address] Tape V ol: ZENAIDA, CPT - 4: 733[address] Echo Rhea nt ID:[id number] Order ID: [id number] Reason for Study:Evaluate for DVT. Patie nt [...] Radiology Results In - 2019 8:11 AM [facility] Vascular Ultrasound Laboratory Lower Extremity Veno us Report [address] [facility], [facility] [address] , [place] [address] Pat.Name: DILLON PEREZ Pat.I D: [id number] .Date: 06/07/2019 Refer .MD: KIMBERLY KHANNA MD Exam Time: 4:51:00 AM Study Type:LE Venous Age: 1001/16/1940,79Y Sex: MALE Sonogrphr: Jamal Lira, BA, BS, RDMS, RVT Pat. Stat.:Inpatient Room: [address] Vol: ZENAIDA, CPT - 4: [address]0831 Echo Event ID:[id number] Order ID: [id number] Reason for Study:Evaluate for DVT. Cata nt [...] Performing Organization Address City/State/Zipcode Phone Number [facility] [address] [place] [address] CBC hemogram (06/07/2019 3:50 AM VISION REHABILITATION THERAPIST)Only the most recent of5 resultswithin the time period is included. [facility] Sig nature WBC 16.21 (H) 4.50 - 11.00 k/uL [facility] RBC 3.35 (L) 4.40 - 6.00 m/uL [facility] HGB 9.6 (L) 14.0 - 18.0 g/dL [facility] HCT 32.4 (L) 41.0 - 51.0 % [facility] MCV 96.7 82.0 - 100.0 fL [facility] MCH 28.7 27.0 - 34.0 pg [facility] MCHC 29.6 (L) 31.0 - 37.0 g/dL [facility] RDW - SD 64.8 (H) 37.0 - 55.0 fL [facility] MPV 12.3 8.8 - 13.2 [facility] Platelet count 132 (L) 150 - 400 k/uL [facility] Nucleated RBC 0.00 /100 WBC [facility] Specimen Blood Performing Organization Address City/[facility] Centercode Phone Number [facility] DEPARTMENT OF PATHOLOGY AND [address] [place] [address] [phone] [address] Occult blood, stool (06/06/2019 5:50 PM VISION REHABILITATION THERAPIST) [facility] Occult blood, Negative for occult blood. [facility] stool Comment: HOSPITAL Specimen Information Specimen Source: Stool Specimen Site: Nonpreserved Specimen Stool - Nonpreserved Performing Organization Address [facility] Centercomn Phone Number [facility] DEPARTMENT OF PATHOLOGY AND [address] [place] [address] [place] [address] Comprehensive metabolic panel (06/06/2019 3:35 AM VISION REHABILITATION THERAPIST)Only the most recent of3 resultswithin the time period is included. [facility] Sodium 136 135 - 148 [facility] mEq/L [facility] Potassium 4.7 3.5 - 5.0 [facility] mEq/L [facility] Chloride 96 (L) 98 - 112 mEq/L [facility] CO2 25 24 - 31 mEq/L [facility] Anion gap 15@ANIO 7 - 15 mEq/L [facility] BUN 38 (H) 8 - 23 mg/dL [facility] Creatinine 4.73 (H) 0.70 - 1.20 [facility] mg/dL HOSPITAL Glucose 77 65 - 99 mg/dL [facility] Calcium 8.7 (L) 8.8 - 10.2 [facility] mg/dL [facility] Protein 6.4 6.3 - 8.3 g/dL [facility] Comment: HOSPITAL Uszijyr6840.6-7.0 g/dL 1 kbxz4085.4-7.6 g/dL 7 months-4mvcw519.1-7.3 g/dL 1-2 gjhme993.6-7.5 g/dL >3 .0-8.0 g/dL 18-9006452.3-8.3 g/dL Albumin 2.4 (L) 3.5 - 5.0 g/dL [facility] A/G ratio 0.6 (L) 0.7 - 3.8 [facility] Alkaline phosphatase 77 40 - 129 U/L [facility] AST 10 10 - 50 U/L [facility] ALT 15 5 - 50 U/L [facility] Total bilirubin 0.5 0.0 - 1.2 [facility] mg/dL HOSPITAL Specimen Plasma specimen Performing Organization Address City/[facility]/Zipcode Phone Number [facility] DEPARTMENT OF PATHOLOGY AND [address] [place] [phone] Transfuse RBC (06/04/2019 10:32 PM VISION REHABILITATION THERAPIST)Only the most recent of3 resultswithin the time period is included.Smear review (06/04/2019 5:50 AM VISION REHABILITATION THERAPIST) Pathologist Sig nature Platelet slide review Trell slt decr [facility] Anisocytosis Moderate [facility] Polychromasia Moderate [facility] Ovalocytes Moderate [facility] Specimen Performing Organization Address [facility] Phone Number [facility] DEPARTMENT OF PATHOLOGY AND [address] [place] [address] [phone] [address] Prothrombin time with INR (06/03/2019 11:20 PM VISION REHABILITATION THERAPIST)Only the most recent of2 resultswithin the time period is included. Prothrombin time 14.8 (H) 11.5 - 14.5 [facility] INR 1.2 [facility] Comment: [facility] International Normalized Ratio (INR) is a [facility] HOSPITAL monitoring tool for patients who are stable on oral anticoagulant therapy. An INR of 2.0-3.0 is suggested for deep vein thrombosis/pulmonary embolism. Specimen Blood Performing Organization Address City/[facility] Centercode Phone Number [facility] DEPARTMENT OF PATHOLOGY AND [address] [place] [address] [place] [address] Anti Xa, unfractionated (06/03/2019 11:20 PM VISION REHABILITATION THERAPIST) Anti Xa, <0.10 (L)Comment: 0.30 - 0.70 [facility] unfractionated Therapeutic Range: U/mL ALEVISM 0.30 - 0.70 U/mL HOSPITAL Specimen Blood Performing Organization Address City/State/Zipcode Phone Number [facility] DEPARTMENT OF PATHOLOGY AND [address] [place], [place] [address] GENOMIC MEDICINE [facility] [address] [place] [address] CT Angiogram Pe Chest (06/03/2019 7:51 PM VISION REHABILITATION THERAPIST) Specimen Narrative Performed At EXAMINATION: RADIANT CT [...] at 8:00 PM, and she expressed understanding [facility]-[id number] Procedure Note Interface, Radiology Results Incoming - 06/03/2019 8:04 PM VISION REHABILITATION THERAPIST EXAMINATION: CT ANGIOGRAM PE CHEST CLINICAL HISTORY:79 [...] at 8:00 PM, and she expressed understanding [facility]-[id number] Performing Organization Address City/[facility] Phone Number [facility]ENTER[facility] [address] [place] [address] ECG 12 lead (06/03/2019 2:44 PM VISION REHABILITATION THERAPIST)Only the most recent of5 resultswithin the time period is included. Pathologist Sig nature Ventricular rate 115 [facility]USE Atrial rate 115 [facility] AR interval 114 [facility] QRSD interval 154 [...] is no t available. Performing Organization Address [facility] Centercomn Phone Number [facility] [address] [place] [address] D-dimer (06/03/2019 2:43 PM VISION REHABILITATION THERAPIST) [facility] D-dimer 1.73 (H) 0.00 - 0.40 [facility] Comment: ug/mL [facility] Units are ug/ml [...] Blood Performing Organization Address City/State/Zipcode Phone Number [facility] DEPARTMENT OF PATHOLOGY AND [address] [place] [address] [address] [address] Respiratory pathogen panel (06/03/2019 2:36 PM VISION REHABILITATION THERAPIST) [facility] Respiratory Positive for Influenza A/H1-2009 virus [facility] pathogen panel ALEVISM Negative for all other pathogens tested: HOSPITAL [...] Specimen Nares - Right Performing Organization Address [facility]/Zipcode Phone Number [facility] DEPARTMENT OF PATHOLOGY AND [address] [place] [address] [phone] [address] Prepare RBC, 2 Units (06/02/2019 8:34 AM VISION REHABILITATION THERAPIST)Only the most recent of2 results within the time period is included. Product name [employer] Red Cell [facility] AS3 #1 [facility] Unit number [id number] [facility] Product code [id number] [facility] Dispense status Transfused [facility] Blood expiration date [id number] [facility] Blood type code 5100 [facility] Blood type O POSITIVE [facility] Compatibility Compatible [facility] Product name Apheresis Red Cell OT[facility]AY AS3 #2 [facility] Unit number [id number] [facility] Product code [id number] [facility] Dispense status Transfused [facility] Blood expiration date [facility] Blood type code 5100 [facility] Blood type O POSITIVE [facility] Compatibility Compatible [facility] Specimen Blood Performing Organization Address [facility] Centercode Phone Number [facility] DEPARTMENT OF PATHOLOGY AND [address] [place], [place] [phone] [address] [address] Type and screen (06/02/2019 8:34 AM VISION REHABILITATION THERAPIST)Only the most recent of2 resultswithin the time period is included. Pathologist Sig nature ABO grouping O [facility] Rh type POS [facility] Antibody screen (gel) NEG [facility] Specimen Blood Performing Organization Address City/[facility]/Zipcode Phone Number [facility] DEPARTMENT OF PATHOLOGY AND [address] [place] [address] [phone] [address] Cv pyp scan for cardiac amyloidosis (06/01/2019 3:12 PM VISION REHABILITATION THERAPIST) Specimen Narrative Performed At This result has an attachment that is no t available. [facility] Nuclear Cardiology and Card iac CT [address] [facility], [facility] [address], [place] [address] [phone] PYP Cardiac Amyloidosis Imagin g Report Pat.Name: DILLON PEREZ at.ID: [id number] .Date: 06/01/2019 Refer.MD: ASCENCION QUINTERO MD Exam Time: 11:24:00 AM Study Type:PYP Cardiac Amyloidosis Imaging Height: 71in Weight: 266lb BSA: 2.38 m2 Age: 1001/16/1940,79Y Sex: MALE Nuclear Tech:Jenni Mendiola [facility](N) Pat. Stat.:Inpatient Nuclear Event ID:[id number] Order ID: [id number] Reason for Study:R/O TTR amyloid History / [...] Radiology Results In - 2019 3:40 PM [facility] Nuclear Cardiology and Cardiac CT [address] [place] [address] PYP Cardiac Amyloidosis Imaging Report Pat.Name: DILLON PEREZ Pat.I D: [id number] .Date: 06/01/2019 Refer .MD: ASCENCION QUINTERO MD Exam Time: 11:24:00 AM Study Type:PYP Cardiac Amyloidosis Imagi ng Height: 71in Weigh t: 266lb BSA: 2.38 m2 Age: 1001/16/1940,79Y Sex: MALE Nuclear Tech:ALLIE Tavares, ARRT(N) Pat. Stat.:Inpatient Nucle ar Event ID:[id number] Order ID: [id number] Reason for Study:R/O TTR amyloid History / [...] PM Mohan Saucedo MD Performing Organization Address [facility] Centercode Phone Number [facility] [address] [place] [address] [place] lambda free light chain with ratio (06/01/2019 5:20 AM VISION REHABILITATION THERAPIST) Pathologist [facility] nature [place] light chain 289.08 (H) 3.30 - 19.40 [facility] mg/L [facility] Lambda light chain 143.97 (H) 5.70 - 26.30 [facility] mg/L [facility] [place] lambda ratio 2.01 (H) 0.26 - 1.65 [facility] Specimen Plasma specimen Performing Organization Address [facility] [place] Phone Number [facility] DEPARTMENT OF PATHOLOGY AND [address] [place] [address] [phone] GENOMIC MEDICINE [address] [address] [address] cardiac calcium score (05/31/2019 3:35 PM VISION REHABILITATION THERAPIST) Specimen Narrative Performed At [facility] Cardi ology and Cardiac CT [address] [place] [address], [place], [place] [address] CT Calc ium Scoring Report Pat.Name: DILLON PEREZ Pat.ID: [id number] .Date: 05/31/2019 Refer.MD: ASCENCION QUINTERO MD Exam Time: 3:04:00 PM Study Type:C T Calcium Scoring Height: 71in Weight: 266lb BSA: 2.38 m2 Ag e: 1940,79Y Sex: MALE HR: 92 bpm Nuclear Tech:Ayo Aviles, RT(NM)(CT), RECRUITING ADMINISTRATOR/Abdiel Billings [facility] Pat. Stat.:Inpatient Nuclear Event ID:[id number] Order ID: [id number] Reason for Study:Eval Aortic Valve Procedures: CT [...] Radiology Results In - 2019 7:15 PM [facility] Nuclear Cardiology and Cardiac CT [address] [place] [address] CT Calcium Scoring Report Pat.Name: DILLON PEREZ Pat.I D: [id number] .Date: 05/31/2019 Refer .MD: ASCENCION QUINTERO MD Exam Time: 3:04:00 PM Study Type:CT Calcium Scoring Height: 71in Weigh t: 266lb BSA: 2.38 m2 Age: 1001/16/1940,79Y Sex: MALE HR: 92 bpm Nuclear Tech:Ayo Aviles RT(NM)(CT), [facility]/Abdiel Billings [facility] Pat. Stat.:Inpatient Nuclear Event ID:[id number] Order ID: [id number] Reason for Study:Eval Aortic Valve Procedures: CT [...] PM Beny Weiss MD Performing Organization Address City/[facility]/Zipcode Phone Number [facility] [address] [place] [address] T3, free (05/31/2019 4:10 AM VISION REHABILITATION THERAPIST) Pathologist Sig nature T3, free 1.1 (L) 2.4 - 4.2 pg/mL [facility] Comment: REFERENCE INTERVAL: Triiodothyronine, Free (Free T3) Access complete set of age- and/or gender-specific ref erence intervals for this test in the [facility] ([facility]). Performed by [facility], [address] [place] [id number] [email or web address], Jared Foster MD, Lab. Director Specimen Serum Performing Organization Address [facility] Cent[facility]ode Phone Number [facility] [address] [place] [address] [facility] [address] [place] [address] Ionized calcium (05/31/2019 12:00 AM VISION REHABILITATION THERAPIST)Only the most recent of4 resultswithin the time period is included. Pathologist Sig nature pH 7.38 [facility] Ionized calcium 1.06 (L) 1.11 - 1.32 [facility] mmol/L HOSPITAL Specimen Plasma specimen Performing Organization Address [facility] Centercode Phone Number [facility] DEPARTMENT OF PATHOLOGY AND [address] [place] [address] [phone] GENOMIC MEDICINE [address] [address] Echocardiogram complete w contrast and 3D if needed (05/30/2019 7:00 PM VISION REHABILITATION THERAPIST) Specimen Narrative Performed At [facility] Echo cardiography Report [address] [facility], [facility] 9, [place] [address] Pat.Name: DILLON PEREZ Pat.ID: [id number] .Date: 05/30/2019 Refer.MD: ASCENCION QUINTERO MD Exam Time: 6:00:00 PM Study Type:R outine Echo Height: 71in Weight: 305lb BSA: 2.53 m2 Ag e: 1940,79Y Sex: MALE BP: 138/70 HR: 72 bpm Sonogr phr: EZRA Stock Pat. Stat.:Inpatient Room: [address] Study Status:Final Echo Event ID:[id number] Order ID: [id number] Reason for Study:Aortic stenosis evaluat ion. History [...] of 10 mmHg. MEASUREMENTS: 2D Parasternal Long Trinidad Ao An 2.5 cm LVPWd 1.2 cm [...] Radiology Results In - 2019 1:49 PM VISION REHABILITATION THERAPIST Echocardiography Report [address] [facility], [facility] 9 , [place] [address] Pat.Name: DILLON PEREZ Pat.I D: [id number] .Date: 05/30/2019 Refer .MD: ASCENCION QUINTERO MD Exam Time: 6:00:00 PM Study Type:Routine Echo Height: 71in Weigh t: 305lb BSA: 2.53 m2 Age: 1001/16/1940,79Y Sex: MALE BP: 138/70 HR: 72 bpm Sonog rphr: EZRA Stock Pat. Stat.:Inpatient Room: [address] Study Status:Final Echo Event ID:[id number] Order ID: [id number] Reason for Study:Aortic stenosis evaluat ion. History [...] of 10 mmHg. MEASUREMENTS: 2D Parasternal Long Trinidad Ao An 2.5 cm LVPW d 1.2 [...] M.D. Performing Organization Address City/State/Zipcode Phone Number [facility] [address] [place] [phone] duplex arterial upper extremity (05/30/2019 5:00 PM VISION REHABILITATION THERAPIST) Specimen Narrative Performed At [facility] Vascular U ltrasound Laboratory Upper Extr emity Arterial Report [address] [facility], [address], [place] [address] Pat.Name: DILLON PEREZ Pat.ID: [id number] .Date: 05/30/2019 Refer.MD: ASCENCION QUINTERO MD Exam Time: 3:21:00 PM Study Type:U E Arterial Age: 1001/16/1940,79Y Sex: MALE Sonogrphr: Priti Recinos RVT Pat. Stat.:[facility] nt Room: [address] ol: RF, CPT - 4: [address] Echo Rhea nt ID:[id number] Order ID: [id number] Reason for Study:Bilateral arm pain and swelling. [...] Radiology Results In - 2019 5:50 PM [facility] Vascular Ultrasound Laboratory Upper Extremity Aarti rial Report [address] [address] Pat.Name: LANIDILLON Pat.I D: [id number] .Date: 05/30/2019 Refer .MD: ASCENCION QUINTERO MD Exam Time: 3:21:00 PM Study Type:UE Arterial Age: 1001/16/1940,79Y Sex: MALE Sonogrphr: PAUL Herrera. Stat.:Inpatient Room: KL1121-N Tape Vol: RF, CPT - 4: 37125 Echo Event ID:[id number] Order ID: [id number] Reason for Study:Bilateral arm pain and swelling. [...] RPVI Performing Organization Address City/State/Zipcode Phone Number [facility] [address] [phone] Us ankle brachial index (05/30/2019 3:30 PM VISION REHABILITATION THERAPIST) Specimen Narrative Performed At [facility] Vascular D iagnostic Laboratory Physiologi c Arterial Leg Report [address] [place] [address] Pat.Name: DILLON PEREZ Pat.ID: [id number] .Date: 05/30/2019 Refer.MD: ASCENCION QUINTERO MD Exam Time: 2:32:00 PM Study Type:P hysiologic Leg Age: 1001/16/1940,79Y Sex: MALE Sonogrphr: Priti Recinos RVT Pat. Stat.:Inpatie nt Room: [address] l: RF, CPT - 4: [address] Echo Rhea nt ID:[id number] Order ID: [id number] Reason for Study:Bilateral decreased ped al pulses. 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 Procedures: Ankle/brachial pressures, Di git pressures Race: B SUMMARY: ANKLE/BRACHIAL INDEX: RIGHT LEFT Brachial Artery [id number] mmHg AV-F istula DP 0 mmHg 0 [...] Radiology Results In - 2019 9:50 PM VISION REHABILITATION THERAPIST Vascular Diagnostic Laboratory Physiologic Arterial Leg Report [address] [address] , [place] [address] Pat.Name: DILLON PEREZ Pat.I D: [id number] .Date: 05/30/2019 Refer .MD: ASCENCION QUINTERO MD Exam Time: 2:32:00 PM Study Type:Physiologic Leg Age: 1001/16/1940,79Y Sex: MALE Sonogrphr: Priti Recinos RVT Pat. Stat.:Inpatient Room: [address] Tape Vol: RF, CPT - 4: 160[address] Echo Event ID:[id number] Order ID: [id number] Reason for Study:Bilateral decreased ped al pulses. 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 Procedures: Ankle/brachial pressures, Di git pressures Race: B SUMMARY: ANKLE/BRACHIAL INDEX: RIGHT LEFT Brachial Artery [id number] mmHg AV-Fi stula DP 0 mmHg 0 [...] RPVI Performing Organization Address City/State/Zipcode Phone Number [facility] [address] duplex arterial lower extremity (05/30/2019 3:30 PM VISION REHABILITATION THERAPIST) Specimen Narrative Performed At [facility] Vascular D iagnostic Laboratory Physiologi c Arterial Leg Report [address] [place] [address] Pat.Name: DILLON PEREZ Pat.ID: [id number] .Date: 05/30/2019 Refer.MD: ASCENCION QUINTERO MD Exam Time: 2:32:00 PM Study Type:P hysiologic Leg Age: 1001/16/1940,79Y Sex: MALE Sonogrphr: Priti Recinos RVT Pat. Stat.:Inpatie nt Room: [address] Vo l: RF, CPT - 4: [address] Echo Rhea nt ID:[id number] Order ID: [id number] Reason for Study:Bilateral decreased ped al pulses. 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 Procedures: Ankle/brachial pressures, Di git pressures Race: B SUMMARY: ANKLE/BRACHIAL INDEX: RIGHT LEFT Brachial Artery [id number] mmHg AV-F istula DP 0 mmHg 0 [...] Radiology Results In - 2019 9:03 AM [facility] Vascular Diagnostic Laboratory Physiologic Arterial Leg Report [address] [address] Pat.Name: DILLON PEREZ Rhianna Pat.I D: [id number] .Date: 05/30/2019 Refer .MD: ASCENCION QUINTERO MD Exam Time: 2:32:00 PM Study Type:Physiologic Leg Age: 1001/16/1940,79Y Sex: MALE Sonogrphr: PAUL Herrera. Stat.:Inpatient Room: [address] Tape Vol: RF, CPT - 4: [address] Echo Event ID:[id number] Order ID: [id number] Reason for Study:Bilateral decreased ped al pulses. 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 Procedures: Ankle/brachial pressures, Di git pressures Race: B SUMMARY: ANKLE/BRACHIAL INDEX: RIGHT LEFT Brachial Artery Tlldpmyb676 mmHg AV-Fi stula DP 0 mmHg 0 [...] Marcellus Yung MD, RPVI Performing Organization Address [facility] Phone Number [facility] [address] [place] [phone] LDH (05/30/2019 11:05 AM VISION REHABILITATION THERAPIST) Pathologist [facility] LDH 267 (H) 87 - 225 U/L [facility] Specimen Plasma specimen Performing Organization [facility] Phone Number [facility] DEPARTMENT OF PATHOLOGY AND [address] [place] [phone] Uric acid level (05/30/2019 12:50 AM VISION REHABILITATION THERAPIST) Pathologist [facility] Uric acid 4.5 3.4 - 7.0 mg/dL [facility] L Specimen Plasma specimen Performing Organization [facility] DEPARTMENT OF PATHOLOGY AND [address] [place] [address] Thyroid stimulating hormone (05/30/2019 12:50 AM VISION REHABILITATION THERAPIST) Pathologist Sig [facility] TSH 0.63 0.27 - 4.20 uIU/mL [facility] Specimen Plasma specimen Performing Organization [facility] Phone Number [facility] DEPARTMENT OF PATHOLOGY AND [address] [place] [phone] [place] [address] T4, free (05/30/2019 12:50 AM VISION REHABILITATION THERAPIST) Pathologist Sig [facility] T4, free 0.7 (L) 0.9 - 1.7 ng/dL [facility] L Specimen Plasma specimen Performing Organization Address [facility] Phone Number [facility] DEPARTMENT OF PATHOLOGY AND [address] [address] Manual differential (05/30/2019 12:20 AM VISION REHABILITATION THERAPIST) Manual differential PERFORMED [facility] Neutrophils 81.0 (H) 39.0 - 69.0 % [facility] Lymphocytes 10.0 (L) 25.0 - 45.0 % [facility] Monocytes 8.0 0.0 - 10.0 % [facility] Eosinophils 1.0 0.0 - 5.0 % [facility] Basophils 0.0 0.0 - 1.0 % [facility] Metamyelocytes 0 % [facility] Promyelocytes 0 % [facility] Platelet slide review Decreased (A) [facility] Anisocytosis Moderate [facility] Polychromasia Moderate [facility] Tear drop cells Occasional [facility] [place] cells Moderate (A) [facility] Enlarged platelets Moderate (A) [facility] Specimen Performing Organization Address City/[facility] Cent[facility] Phone Number [facility] DEPARTMENT OF PATHOLOGY AND [address] [place] [address] Heparin PF4 antibody (IgG) (05/29/2019 9:41 AM VISION REHABILITATION THERAPIST) Pathologist Sig nature Heparin PF4 Ab OD 0.206 0.000 - 0.399 [facility] Heparin PF4 Ab, IgG Negative Negative [facility] Specimen Blood Performing Organization Address City/[facility] Cent[facility]ode Phone Number [facility] DEPARTMENT OF PATHOLOGY AND [address] [place] [phone] Hepatitis B surface antigen (05/28/2019 1:50 PM VISION REHABILITATION THERAPIST) Pathologist Sig nature Hepatitis B surface Non-reactive Non-reactive [facility] Specimen Blood Performing Organization Address City/[facility] Cent[facility]ode Phone Number [facility] DEPARTMENT OF PATHOLOGY AND [address] [place] [phone] Hemoglobin A1c (05/28/2019 9:41 AM VISION REHABILITATION THERAPIST) Hemoglobin A1C 6.5 (H) 4.0 - 5.6 % [facility] Comment: HOSPITAL HbA1c cutoffs for diagnosing diabetes: [...] Blood Performing Organization Address City/State/Zipcode Phone Number [facility] DEPARTMENT OF PATHOLOGY AND [address] [place] [address] [phone] GENOMIC MEDICINE [facility] [address] [place] [address] after 10/21/2018 Insurance Payer Benefit Plan / Subscriber ID Effective Dates Phone Addre ss Type Group MEDICARE MEDICARE PART A xxxxxxxxxxx 2004-[place], [place] Medicare AND B t AARP AARP SUPPLEMENT xxxxxxxxxxx 2008-Present Commercial (Work) [id number] Advance Directives For more information, please contact: [phone] Type Date Recorded Patient Material Dispatcher Explanati on Advance Directives, Living Will 08/07/2016 7:57 AM and Medical Power of Press And Blow Machine Tender
--- OUTSIDE RECORDS SUMMARY | 2019-10-22 20:21 | XMS REPORT | Continuity of Care Document ---
:1940 Author Organization [facility] t Address [address] [place] [address] Care Team Providers Name Role Phone Anmol Salazar MD Primary Care Physician JOANN Attending Clinician Unavailable Ingrid CHOWDHURY, R. Attending Clinician Ester CHOWDHURY, M. Attending Clinician Johnathan CHOWDHURY PhD, S. Attending Clinician JOANN Admitting Clinician Unavailable INGRID Admitting Clinician Unavailable Payers Payer Name Policy Policy Number Effective Expiration Source Type Date Date MEDICAREMEDICARE PART xxxxxxxxxxx 2004 Jono Zelaya AND 00:00:00 Judaism Chldxqzegtcz42/1/2004 [place] 2008 [facility] SUPPLEMENTxxxxxxxxxxx 00:00:00 [place] [facility] Problems Condition Condition Condition Status Onset Resolution Last Treating Co mments Source Name Details Category Date Date Treatment Clinician Date Influenza Influenza Disease Active Yoel joseph A (H1N1) A (H1N1) 2-25 Method i 00:00: st 00 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 joseph stage stage 2-18 Methodi renal renal 00:00: st disease) disease) 00 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 2-16 [facility]i valve valve 00:00: st stenosis stenosis 00 Unstable Unstable Disease Active Overview: Jono garcía angina angina 4-11 Added Methodi 00:00: automatic st 00 ally from request for surgery [id number] Coronary Coronary Disease Active Overview: Jono garcía artery artery 4-11 Added Methodi disease disease 00:00: automatic st involving involving 00 ally from [place] request coronary coronary for artery of artery of surgery [place] [id number] heart heart without without angina angina pectoris pectoris Chest pain Chest pain Disease Active Overview : Percy 4-11 Added Methodi 00:00: automatic st 00 ally from request for surgery [id number] 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 4-10 Method i 00:00: st 00 Coronary Coronary Disease Active [place] artery artery 4-10 Methodi disease of disease of 00:00: st [place] 00 artery of artery of [place] heart with heart with stable stable angina [...] 2020-0 [facility] 5-16 Clear 00:00: Ann 00 [facility] ciproflo DA Active U 2020-0 [facility] xacin 5-16 Clear 00:00: Ann 00 [facility] meperidi DA Active U 2020-0 [facility] ne 5-16 Clear 00:00: Ann 00 [facility] iodine DA Active U 2020-0 [facility] 4-13 Clear 00:00: Ann 00 [facility] ciproflo DA Active U 2020-0 [facility] xacin 4-13 Clear 00:00: Ann 00 [facility] meperidi DA Active U 2020-0 [facility] ne 4-13 Clear 00:00: Ann 00 [facility] Ciproflo Propensi Active Itching [place] xacin ty to 3-27 Methodi adverse 00:00: st reaction 00 s to drug Meperidi Propensi Active Other (See Jono stacy ty to Comments) 3-27 Methodi adverse 00:00: st reaction 00 s to drug Iodine Propensi Active Itching Shepherd ty to 4-19 Methodi adverse 00:00: st reaction 00 s to drug Shrimp Propensi Active Itching Shepherd ty to 4-19 Methodi adverse 00:00: st reaction 00 s to drug Iodine Adverse Active Info Not [facility] Reaction Available [facility] Social History Social Habit Start Date Stop Date Quantity Comments Source Sex Assigned At [facility] M ethodist Cigarettes smoked 2019-05-29 2019-05-29 Percy Chance current (pack per 00:00:00 00:00:00 day) - Reported Cigarette 2019-05-29 2019-05-29 Percy Allen ist pack-years 00:00:00 00:00:00 Alcohol intake 2019-05-29 2019-05-29 Current [facility] thodist 00:00:00 00:00:00 non-drinker of alcohol (finding) History of tobacco 1979-03-08 Current smoker Jono Chance use 00:00:00 Smoking Status Start Date Stop Date Source Former smoker 2019-05-29 00:00:00 2019-05-29 00:00:00 Percy Chance Medications Ordered Filled Start Stop Current Ordering Indication Dosage Frequency Signature Comments Components Source Medication Medication Date Date Medication? Clinician (SIG) Name Name oseltamivir 2020- No 30mg Q.[id number] Take 1 Percy (TAMIFLU) 06-12 [id number] capsule Methodi 30 MG 00:00: 23:59 3W ([address] capsule 00 :00 total) by mouth 3 (three) times a week for 3 days. midodrine 2019- 2020- No 20mg Q.[id number] Take 2 [place] (PROAMATINE 07-10 [id number] tablets Methodi ) 10 MG 00:00: 23:59 3W ([address] tablet 00 :00 total) by mouth 3 (three) times a week for 30 days. polyethylen 2019-2019- No 17g QD Take 17 g Shepherd e glycol 06-10 by mouth Method i (MIRALAX) 00:00: 23:[address] 17 gram 00 :00 30 days. packet lisinopriL 2019- No 5mg QD Take 1 [place] (PRINIVIL) 06-10 tablet (5 Met hodi 5 mg tablet 00:00: 23:59 mg total) st 00 :00 by mouth daily for 30 days. insulin NPH 2019- No 6U QD [facility] 06-10 Units Method i 100 unit/mL 00:00: 23:[address] injection 00 :00 skin daily for 30 days. epoetin 2019- No 08691Q Q.[id number] Infuse Shepherd zaid-epbx 06-10 [id number] 13,000 M ethodi 10,000 00:00: 23:59 3W [...] by mouth daily for 30 days. fexofenadin 2019- 2020- No 60mg QD Take 1 Yoel ston e (DRAKE) 06-10-29 tablet (60 M ethodi 60 MG 00:00: 23:59 mg total) st tablet 00 :00 by mouth daily for 30 days. ALLOPURINOL 2019-0 2020- No 200mg QD Take 200 [place] ORAL 06-09 mg by Methodi 20:45: 00:[address] 47 :00 daily. ASCORBIC 2019- 2020- No 1{tbl} QD Take 1 [place] ACID, 06-09 tablet by Methodi VITAMIN C, 20:45: 00:[address] ORAL 47 :00 daily. cholecalcif 2019-2019- No 2000U QD Take 2,000 [place] andre, 06-09 Units by Methodi vitamin D3, 20:45: 00:[address] (VITAMIN 47 :00 daily. D3) 2,000 unit capsule capsule ipratropium 2019- No 2{spray Q12H 2 sprays [facility] (ATROVENT) [...] chest pain. midodrine 2019-0 2020- No 20mg Q.[id number] Take 20 mg [place] (PROAMATINE 06-09 [id number] by mouth 3 Methodi ) 10 MG 20:45: 00:00 3W (three) st tablet 47 :00 times a week. omeprazole 2019-0 2020- No 20mg Q.5D Take 20 mg [place] (PriLOSEC) 06-09 by mouth 2 Me thodi 20 MG 20:45: 00:00 (two) st capsule 47 :00 times a day. fluticasone 2019-0 2020- No Inhale. [place] furoate 100 2-27 02-27 Methodi mcg/actuati 20:45: 00:00 st on blister 47 :00 with device fluticasone 2020-0 Yes 1{spray QD 1 spray by Shepherd (FLONASE) 06-09 } Each Nare Metho di 50 20:45: route st mcg/actuati 43 daily. on nasal spray gabapentin 2020-0 Yes 100mg Q.[id number] Take 100 [facility] (NEURONTIN) 06-09 [id number] mg by M ethodi 100 mg 20:45: 3D mouth 3 st capsule 43 (three) times a day. amIODarone 2020-0 Yes 100mg QD Take 100 Ho usoliver (PACERONE) 2-27 mg by Methodi 200 MG 20:45: mouth st tablet 43 daily. sevelamer 2020-0 Yes 1600mg Q.[id number] Take 1,600 [place] (RENVELA) - [id number] mg by Met hodi 800 mg 20:45: [...] vomiting for up to 30 days. levalbutero 2019-0 2020- No Influenza A 1.25mg Q.[id number] Take 3 mL Shepherd l (XOPENEX) 06-09 (H1N1) [id number] (1.25 mg Methodi 1.25 mg/3 00:00: 23:59 7D total) by st mL 00 :00 nebulizati nebulizer on every 4 solution (four) hours for 30 days. ipratropium 2019-0 2020- No Influenza A .5mg Q.[id number] Take 2. 5 [facility] (ATROVENT) 06-09 (H1N1) [id number] mL (0.5 mg Methodi 0.02 % 00:00: 23:59 7D total) by st nebulizer 00 :00 nebulizati solution on every 4 (four) hours for 30 days. insulin 2019-0 2020- No 0U Q4H Inject [facility] lispro 06-09 0-12 Units Method i (HumaLOG) 00:00: 23:[address] 100 unit/mL 00 :00 skin every injection 4 (four) hours for 30 days. heparin 2019-0 2020- No 1100U/h Infuse [place] sod,pork in 06-09 1,100 Method i 0.45% NaCl 00:00: 23:59 Units/hr st (HEParin, 00 :00 into a porcine, in venous 0.45% NaCl) catheter 25,000 Titrated unit/500 mL for 30 infusion days. docusate 2019-0 2020- No 100mg Q.5D Take 1 [place] sodium 06-09 capsule Methodi (COLACE) 00:00: 23:59 ([address] 100 MG 00 :00 total) by capsule mouth 2 (two) times a day for 30 days. dextrose 2020-0 2020- No 25g Infuse 50 Yoel ston 50% syringe 06-09 mL (25 g Met hodi 00:00: 23:59 total) st 00 :00 into a venous catheter every 20 (twenty) minutes as needed (If blood glucose is 40 mg/dL or LESS) for up to 30 days. dextrose 2019-0 2020- No 12.5g Infuse 25 [place] 50% syringe 06-09 mL (12.5 g M ethodi 00:00: 23:59 total) st 00 :00 into a venous catheter every 20 (twenty) minutes as needed (If blood glucose is between 41-69 mg/dL) for up to 30 days. budesonide 2019-0 2020- No Influenza A .5mg Q12H Take [...] 100.4) for up to 30 days. pantoprazol 2019- No 40mg Q.5D Take 1 Yoel ston e 06-09- tablet (40 Methodi (PROTONIX) 00:00: 23:59 mg total) s t 40 MG EC 00 :00 by mouth 2 tablet (two) times a day for 30 days. clopidogrel 2019- No 75mg QD Take 1 Yoel ston [...] [facility] clopidogrel clopidogrel Yes Chris not [facility] Ipratropium Ipratropium Yes Chirs not [facility] Ozone Ozone [facility] defined [facility] Prednisone Prednisone Yes Chris not [facility] defined [facility] Vital Signs Vital Name Observation Time Observation Value Comments Source Heart rate 2019-06-09 19:30:00 86 /min Percy Chance Respiratory rate 2019-06-09 19:30:00 22 /min [place] [facility] Oxygen saturation in 2019-06-09 19:16:00 100 /min Percy Chance Arterial blood by Pulse oximetry Systolic blood 2019-06-09 18:00:00 131 mm[Hg] Essieto n Judaism pressure Diastolic blood 2019-06-09 18:00:00 59 mm[Hg] Chrissie on Judaism pressure Body temperature 2019-06-09 17:00:00 36.67 Leslee [place] [facility] Body weight 2019-06-09 06:00:00 124.5 kg Percy Chance BMI 2019-06-09 06:00:00 38.28 kg/m2 Percy Chance Body height 2019-05-28 09:15:00 180.3 cm Percy [...] PARTIAL THROMBOPLASTIN 2019-06-09 04:45:00 Yvette Hernandez on Judaism TIME (PTT) HC COMPLETE BLD COUNT 2019-06-09 04:45:00 Lee Polk W/AUTO DIFF POC GLUCOSE 2019-06-09 02:07:00 Trey Norman [facility] POC GLUCOSE 2019-06-08 20:30:00 Trey Norman [facility] POC GLUCOSE 2019-06-08 17:13:00 Trey Norman [facility] HEMODIALYSIS 2019-06-08 15:06:25 KiloagaDawna ethodist Almita XR CHEST 1 VW PORTABLE 2019-06-08 12:32:38 Norma Welsh Judaism POC GLUCOSE 2019-06-08 12:07:00 Trey Norman [facility] POC GLUCOSE 2019-06-08 07:38:00 Trey Norman [facility] PARTIAL THROMBOPLASTIN 2019-06-08 05:50:00 Yvette Hernandez on Judaism TIME (PTT) HC COMPLETE BLD COUNT 2019-06-08 05:50:00 Kaylene Watkins Judaism W/AUTO DIFF BASIC METABOLIC PANEL 2019-06-08 05:50:00 Kaylene Watkins Judaism MAGNESIUM LEVEL 2019-06-08 05:50:00 Kaylene Watkins Judaism PHOSPHORUS LEVEL 2019-06-08 05:50:00 Kaylene Watkins on Judaism ESTIMATED GFR 2019-06-08 05:50:00 Kaylene Watkins n Judaism POC GLUCOSE 2019-06-08 04:26:00 Trey Norman [facility] POC GLUCOSE 2019-06-08 00:18:00 Trey Norman [facility] POC GLUCOSE 2019-06-07 20:16:00 Trey Norman [facility]ist POC GLUCOSE 2019-06-07 16:22:00 Trey Norman [facility] POC GLUCOSE 2019-06-07 15:50:00 Trey Norman [facility] POC GLUCOSE 2019-06-07 11:39:00 Trey Norman [facility] ARTERIAL BLOOD GAS 2019-06-07 11:34:00 Micheline Multani Judaism HEMODIALYSIS 2019-06-07 10:44:52 Imani Arita Meth odist Vida POC GLUCOSE 2019-06-07 07:42:00 Trey Norman [facility] US DUPLEX VENOUS LOWER 2019-06-07 06:20:00 Yvette Hernandez on Judaism EXTREMITY BILATERAL POC GLUCOSE 2019-06-07 04:27:00 Trey Norman [facility] PARTIAL THROMBOPLASTIN 2019-06-07 03:50:00 Yvette Hernandez on Judaism TIME (PTT) CBC HEMOGRAM 2019-06-07 03:50:00 Lee Polk ethodist POC GLUCOSE 2019-06-07 00:19:00 Trey Norman [facility] POC GLUCOSE 2019-06-06 20:19:00 Trey Norman [facility] POC GLUCOSE 2019-06-06 18:13:00 Trey Norman [facility] OCCULT BLOOD, STOOL 2019-06-06 17:50:00 Trey Norman Judaism POC GLUCOSE 2019-06-06 14:46:00 Trey Norman [facility]ist POC GLUCOSE 2019-06-06 12:21:00 Trey Norman [facility] POC GLUCOSE 2019-06-06 08:00:00 Trey Norman [facility] POC GLUCOSE 2019-06-06 04:29:00 Trey Norman [facility] HC COMPLETE BLD COUNT 2019-06-06 03:35:00 Tejas Escamilla Judaism W/AUTO DIFF Louise MAGNESIUM LEVEL 2019-06-06 03:35:00 Tejas Escamilla ethodist Louise PHOSPHORUS LEVEL 2019-06-06 03:35:00 Tejas Escamilla Judaism Louise COMPREHENSIVE METABOLIC 2019-06-06 03:35:00 Tejas Escamilla Judaism PANEL Louise PARTIAL THROMBOPLASTIN 2019-06-06 03:35:00 Yvette Hernandez on Judaism TIME (PTT) ESTIMATED GFR 2019-06-06 03:35:00 Yvette Hernandez Meth odist POC GLUCOSE 2019-06-06 00:25:00 Trey Norman [facility] ARTERIAL BLOOD GAS 2019-06-05 21:42:00 Lee Polk n Judaism POC GLUCOSE 2019-06-05 20:16:00 Trey Norman [facility] POC GLUCOSE 2019-06-05 17:20:00 Trey Norman [facility] POC GLUCOSE 2019-06-05 16:15:00 Trey Norman [facility] POC GLUCOSE 2019-06-05 12:10:00 Trey Norman [facility]ist XR CHEST 1 VW PORTABLE 2019-06-05 08:59:00 Lee Polk Jono garcía Judaism POC GLUCOSE 2019-06-05 08:18:00 Trey Norman [facility] HC COMPLETE BLD COUNT 2019-06-05 04:20:00 Tejas Escamilla Judaism W/AUTO DIFF Louise MAGNESIUM LEVEL 2019-06-05 04:20:00 Tejas Escamilla ethodist Louise PHOSPHORUS LEVEL 2019-06-05 04:20:00 Tejas Escamilla Judaism Louise COMPREHENSIVE METABOLIC 2019-06-05 04:20:00 Tejas Escamilla Judaism PANEL Louise PARTIAL THROMBOPLASTIN 2019-06-05 04:20:00 Yvette Hernandez on Judaism TIME (PTT) ESTIMATED GFR 2019-06-05 04:20:00 Yvette Hernandez Meth odist POC GLUCOSE 2019-06-05 04:18:00 Trey Norman [facility] POC GLUCOSE 2019-06-05 00:57:00 Trey Norman [facility] TRANSFUSE RED BLOOD CELLS 2019-06-04 22:32:21 Trey Norman Judaism TRANSFUSE RED BLOOD CELLS 2019-06-04 21:21:15 Trey Norman Judaism POC GLUCOSE 2019-06-04 20:57:00 Trey Norman [facility] POC GLUCOSE 2019-06-04 16:48:00 Trey Norman [facility] PARTIAL THROMBOPLASTIN 2019-06-04 15:15:00 Yvette Hernandez on Judaism TIME (PTT) POC GLUCOSE 2019-06-04 12:13:00 Trey Norman [facility] XR CHEST 1 VW PORTABLE 2019-06-04 10:45:44 Tejas Escamilla Judaism Louise CBC HEMOGRAM 2019-06-04 08:44:00 Trey Norman [facility] POC GLUCOSE 2019-06-04 07:39:00 Trey Norman [facility] HEMODIALYSIS 2019-06-04 07:32:12 Imani Arita Percy Meth odist Vida HC COMPLETE BLD COUNT 2019-06-04 05:50:00 Tejas Escamillastephanie joseph Judaism W/AUTO DIFF Louise MAGNESIUM LEVEL 2019-06-04 05:50:00 Tejas Escamilla Yvette ethodist Louise PHOSPHORUS LEVEL 2019-06-04 05:50:00 AndiTejas boyd Judaism Louise COMPREHENSIVE METABOLIC 2019-06-04 05:50:00 [facility] PANEL Louise PARTIAL THROMBOPLASTIN 2019-06-04 05:50:00 Yvette Hernandez on Judaism TIME (PTT) ESTIMATED GFR 2019-06-04 05:50:00 AndiTejas ethodist Louise SMEAR REVIEW 2019-06-04 05:50:00 Andi Chandlergarcia Percy Crawford ethodist Louise POC GLUCOSE 2019-06-04 04:19:00 Trey Norman [facility] POC GLUCOSE 2019-06-04 00:27:00 Trey Norman [facility] PROTHROMBIN TIME WITH INR 2019-06-03 23:20:00 Yvette Hernandez Judaism PARTIAL THROMBOPLASTIN 2019-06-03 23:20:00 Yvette Hernandez on Judaism TIME (PTT) CBC HEMOGRAM 2019-06-03 23:20:00 Yvette Hernandez Meth odist ANTI XA, UNFRACTIONATED 2019-06-03 23:20:00 Yvette Hernandez Judaism POC GLUCOSE 2019-06-03 20:05:[address] [facility] [address] ANGIOGRAM PE CHEST 2019-06-03 19:51:51 Yvette Hernandez n Judaism POC GLUCOSE 2019-06-03 16:44:00 Trey Norman [facility] ECG 12-LEAD 2019-06-03 14:44:00 Tejas Escamilla ethodist Louise D-DIMER 2019-06-03 14:43:00 Yvette Hernandez Meth odist XR CHEST 1 VW PORTABLE 2019-06-03 14:38:39 Tejas Escamilla Judaism Louise RESPIRATORY PATHOGEN PANEL 2019-06-03 14:36:00 AndiChandler garcia Chance Louise ARTERIAL BLOOD GAS 2019-06-03 13:48:00 Andi Tejas sorenson Judaism Louise POC GLUCOSE 2019-06-03 12:18:00 Trey Norman [facility] XR CHEST 1 VW PORTABLE 2019-06-03 10:58:27 Bimal Gibbs Judaism POC GLUCOSE 2019-06-03 08:05:00 Trey Norman [facility] POC GLUCOSE 2019-06-03 06:16:00 Trey Norman [facility] HC COMPLETE BLD COUNT 2019-06-03 03:30:00 Trey Norman on Judaism W/AUTO DIFF BASIC METABOLIC PANEL 2019-06-03 03:30:00 Kaylene Watkinsist ESTIMATED GFR 2019-06-03 03:30:00 Kaylene Watkins Judaism POC GLUCOSE 2019-06-03 03:03:00 Trey Norman [facility] POC GLUCOSE 2019-06-02 22:08:00 Trey Norman [facility] POC GLUCOSE 2019-06-02 20:23:00 Trey Norman [facility] POC GLUCOSE 2019-06-02 16:39:00 Trey Norman [facility] ARTERIAL BLOOD GAS 2019-06-02 15:25:00 Radha Diaz on Judaism XR CHEST 1 VW PORTABLE 2019-06-02 15:20:00 Radha Diaz Judaism TRANSFUSE RED BLOOD CELLS 2019-06-02 15:17:45 Zoila Welsh Judaism POC GLUCOSE 2019-06-02 13:34:00 Trey Norman [facility] TYPE AND SCREEN 2019-06-02 08:34:00 Zoila Welshist PREPARE RBC 2019-06-02 08:34:00 Trey Norman [facility] CBC HEMOGRAM 2019-06-02 05:20:00 Ad Quintero Meth odist POC GLUCOSE 2019-06-01 22:56:00 Ad Quintero Meth odist POC GLUCOSE 2019-06-01 21:44:00 Ad Quintero Meth odist HEMODIALYSIS 2019-06-01 17:08:11 Zoila Welsh Judaism POC GLUCOSE 2019-06-01 17:04:00 Ad Quintero Meth odist CV PYP SCAN FOR CARDIAC 2019-06-01 15:12:30 Ayo Pruett Judaism AMYLOIDOSIS POC GLUCOSE 2019-06-01 12:04:00 Ad Quintero Meth odist ECG 12-LEAD 2019-06-01 11:32:51 Vandana Rene Met hodist XR CHEST 1 VW PORTABLE 2019-06-01 11:20:00 Vandana Rene Judaism POC GLUCOSE 2019-06-01 07:50:00 Ad Quintero Meth odist KAPPA LAMBDA FREE LIGHT 2019-06-01 05:20:00 Ayo Pruett Judaism CHAIN WITH RATIO BASIC METABOLIC PANEL 2019-06-01 05:20:00 Ad Quintero Judaism ESTIMATED GFR 2019-06-01 05:20:00 Ad Quintero Meth odist POC GLUCOSE 2019-05-31 21:16:00 Ad Quintero Meth odist ECG 12-LEAD 2019-05-31 17:44:47 Vandana Rene Met [facility]odist BASIC METABOLIC PANEL 2019-05-31 17:33:00 Vandana Rene on Judaism MAGNESIUM LEVEL 2019-05-31 17:33:00 Vandana Rene Met [facility]odist ESTIMATED GFR 2019-05-31 17:33:00 Vandana Rene Met [facility]odist POC GLUCOSE 2019-05-31 16:58:[address] Meth odist CT CARDIAC CALCIUM SCORE 2019-05-31 15:35:42 Ayo Pruett Judaism POC GLUCOSE 2019-05-31 12:29:00 Ad Quintero Meth odist HEMODIALYSIS 2019-05-31 09:45:19 Zoila Welsh Judaism POC GLUCOSE 2019-05-31 07:59:00 Ad Quintero Meth odist T3, FREE 2019-05-31 04:10:00 Jigar Hernandez odgiacomo CBC HEMOGRAM 2019-05-31 04:10:00 Jigar Hernandez odist BASIC METABOLIC PANEL 2019-05-31 00:00:00 Jigar Hernandez n Judaism MAGNESIUM LEVEL 2019-05-31 00:00:00 Jigar Hernandez odist IONIZED CALCIUM 2019-05-31 00:00:00 Jigar Hernandez odist PHOSPHORUS LEVEL 2019-05-31 00:00:00 Jigar Hernandez Met hodist ESTIMATED GFR 2019-05-31 00:00:00 Jigar Hernandez odist POC GLUCOSE 2019-05-30 20:56:00 Ad Quintero TTE COMPLETE, WO CONTRAST, 2019-05-30 19:00:00 Jigar Hernandez W DOPPLER ([id number]) POC GLUCOSE 2019-05-30 17:24:00 Ad Quintero US DUPLEX ARTERIAL UPPER 2019-05-30 17:00:00 Jigar Hernandez EXTREMITY BILATERAL US DUPLEX ARTERIAL LOWER 2019-05-30 15:30:00 Jigar Hernandez EXTREMITY BILATERAL US ANKLE BRACHIAL INDEX 2019-05-30 15:30:00 Jigar Hernandez Judaism POC GLUCOSE 2019-05-30 11:29:00 Ad Quintero odgiacomo ARTERIAL BLOOD GAS 2019-05-30 11:24:00 Yvette Hernandez M ethodist LDH 2019-05-30 11:05:00 Jigar Hernandez odist POC GLUCOSE 2019-05-30 07:30:00 Ad Quintero XR CHEST 1 VW PORTABLE 2019-05-30 04:10:00 Alba Fine Judaism POC GLUCOSE 2019-05-30 03:58:00 Ad Quintero odist URIC ACID LEVEL 2019-05-30 00:50:00 Trey Norman [facility] THYROID STIMULATING 2019-05-30 00:50:00 Trey Norman Judaism HORMONE T4, FREE 2019-05-30 00:50:00 Trey Norman [facility] BASIC METABOLIC PANEL 2019-05-30 00:50:00 Alba Fine on Judaism IONIZED CALCIUM 2019-05-30 00:50:00 Alba Fine [facility]ist MAGNESIUM LEVEL 2019-05-30 00:50:00 Alba Fine [facility]ist PHOSPHORUS LEVEL 2019-05-30 00:50:00 Alba Fine Me thodist ESTIMATED GFR 2019-05-30 00:50:00 Alba Fine Met [facility]odist CBC WITH PLATELET AND 2019-05-30 00:20:00 Alba Fine on Judaism DIFFERENTIAL MANUAL DIFFERENTIAL 2019-05-30 00:20:00 Alba Fine Judaism POC GLUCOSE 2019-05-29 23:45:00 Ad Quintero Meth odist POC GLUCOSE 2019-05-29 19:47:00 Ad Quintero Meth odist POC GLUCOSE 2019-05-29 16:16:00 Ad Quintero Meth odist POC GLUCOSE 2019-05-29 11:23:00 Ad Quintero Meth odist HEPARIN PF4 ANTIBODY (IGG) 2019-05-29 09:41:00 Trey Norman Judaism POC GLUCOSE 2019-05-29 07:36:00 Ad Quintero Meth odist XR CHEST 1 VW PORTABLE 2019-05-29 04:02:00 Alba Fine ton Judaism POC GLUCOSE 2019-05-29 04:00:00 Ad Quintero Meth odist ECG 12-LEAD 2019-05-29 03:42:45 Jigar Hernandez Meth odist HC COMPLETE BLD COUNT 2019-05-29 01:00:00 Alba Fine on Judaism W/AUTO DIFF BASIC METABOLIC PANEL 2019-05-29 00:33:00 Alba Fine on Judaism IONIZED CALCIUM 2019-05-29 00:33:00 Alba Fine Met [facility]odist MAGNESIUM LEVEL 2019-05-29 00:33:00 Alba Fine [facility]ist PHOSPHORUS LEVEL 2019-05-29 00:33:00 Alba Fine Wy thodist ESTIMATED GFR 2019-05-29 00:33:00 Babatunde Alba Gre[facility] Met hodist HC COMPLETE BLD COUNT 2019-05-29 00:00:00 Alba Fine on Judaism W/AUTO DIFF POC GLUCOSE 2019-05-28 23:52:00 Ad Quintero Meth odist POC GLUCOSE 2019-05-28 20:25:00 Ad Quintero Meth odist POC GLUCOSE 2019-05-28 16:33:00 Ad Quintero Meth odist HEPATITIS B SURFACE 2019-05-28 13:50:00 La Ash ANTIGEN POC GLUCOSE 2019-05-28 11:30:00 Ad Quintero odist HEMODIALYSIS 2019-05-28 11:17:52 La Ash odist HC COMPLETE BLD COUNT 2019-05-28 10:05:00 Jigar Hernandez Judaism W/AUTO DIFF XR CHEST 1 VW PORTABLE 2019-05-28 10:02:26 Jigar Hernandez on Judaism CONSULT CARDIAC REHAB 2019-05-28 09:42:15 Jigar Hernandez Judaism PHASE 1 ECG 12-LEAD 2019-05-28 09:42:01 Jigar Hernandez odist BASIC METABOLIC PANEL 2019-05-28 09:41:00 Jigar Hernandez Judaism MAGNESIUM LEVEL 2019-05-28 09:41:00 Jigar Hernandez odist PHOSPHORUS LEVEL 2019-05-28 09:41:00 Jigar Hernandez hodist IONIZED CALCIUM 2019-05-28 09:41:00 Jigar Hernandez odist PROTHROMBIN TIME WITH INR 2019-05-28 09:41:00 Jigar Hernandez Judaism PARTIAL THROMBOPLASTIN 2019-05-28 09:41:00 Jigar Hernandez on Judaism TIME (PTT) TYPE AND SCREEN 2019-05-28 09:41:00 Jigar Hernandez odist ESTIMATED GFR 2019-05-28 09:41:00 Jigar Hernandez odist HEMOGLOBIN A1C 2019-05-28 09:41:00 Jigar Hernandez odist POC GLUCOSE 2019-05-28 09:39:00 Ad Quintero Meth odist Plan of Care Planned Activity Planned Date Details Comments Source Future Scheduled 2019-11-12 INFLUENZA VACCINE [place] [facility] 00:00:00 [code = INFLUENZA VACCINE] Future Scheduled 2004-01-13 65+ PNEUMOCOCCAL [facility] Test 00:00:00 VACCINE (1 of 2 - PCV13) [code = 65+ PNEUMOCOCCAL VACCINE (1 of 2 - PCV13)] Future Scheduled 1989-01-12 SHINGLES VACCINES (#1) [place] [facility] 00:00:00 [code = SHINGLES VACCINES (#1)] Future Scheduled 1949-01-12 DIABETIC FOOT EXAM [place] [facility] 00:00:00 [code = DIABETIC FOOT EXAM] Future Scheduled 1949-01-12 URINE MICROALBUMIN [place] [facility] 00:00:00 [code = URINE MICROALBUMIN] Future Scheduled 1939 DIABETIC RETINAL EYE Yoel ston [facility] Test 00:00:00 EXAM [code = DIABETIC RETINAL EYE EXAM] Encounters Start End Encounter Admission Attending Care Care Encounter Source Date/Time Date/Time Type Type Clinicians Facility Department ID 2019-07-18 Inpatient [facility] [id number] 4 [facility] 15:02:00 [facility] 2019-05-28 2019-06-09 Inpatient [facility] [id number] [facility] 00:00:00 00:00:00 [place] [address] 2019-06-01 2019-06-01 Outpatient [facility] [id number] [facility] 00:00:00 00:00:[address] 2019-06-01 2019-06-01 Outpatient [facility] [id number] [facility] 00:00:00 00:00:[address] 2019-03-22 2019-03-22 [facility] [id number] [facility] [address] 09:45:00 09:45:00 [facility] Results Test Description Test Time Test Comments Results Result Comments Source GLUBED 2019-08-30 17:19:00 Test Item Value Reference Range Interpretation Comme nts GLUBED (test code = GLUBED) 175 MG/DL 70-110 H Performed by certified handle lathe operator at [facility] Coronavirus 2019 nCoV [id number] 14:30:00 Test Item Value Reference Range Interpretation Comments Coronavirus 2019 Negative Negative Negative re sults should be nCoV Bedside (test treated a s presumptive and, code = ifinconsistent with COVNONPUIBED) clinical signs and symptoms or necessaryfor patient management, matilde uld be tested with an alternativemole cular assay. Negative result s do not preclude OISJ-VyY-5dsxnz tion and should not be u sed as the sole basis forp atient management deci sions. Negative result s should beconsidered in the context of a patient's recent exposures,histo ry, presence of clinical sig ns and symptoms consis tentwith COVID-19. [id number] 12:08:00 Test Item Value Reference Range Interpretation Comments GLUBED (test code = 204 MG/DL 70-110 H Performe d by certified GLUBED) handle lathe operator at [facility] [id number] 08:21:00 Test Item Value Reference Range Interpretation Comments GLUBED (test code = 128 MG/DL 70-110 H Performe d by certified GLUBED) handle lathe operator at [facility] [id number] 20:23:00 Test Item Value Reference Range Interpretation Comments GLUBED (test code = 315 MG/DL 70-110 H Performe d by certified GLUBED) handle lathe operator at [facility] [id number] 16:00:00 Test Item Value Reference Range Interpretation Comments GLUBED (test code = 189 MG/DL 70-110 H Performe d by certified GLUBED) handle lathe operator at [facility] ACUTE HEPATITIS [id number] 13:28:00 Test Item Value Reference Range Interpretation Comments AB HEPATITIS A IGM (test NON REACTIVE INDEX NON REACT. code = HAVMAB) AG HEPATITIS B SURFACE NON REACTIVE INDEX NonReactive (test code = HBSAG) AB HEPATITIS B CORE IGM NON REACTIVE INDEX NON REACT. (test code = HBCMAB) AB HEPATITIS C (test code NON REACTIVE INDEX NON REACT. = HCVAB) ACUTE HEPATITIS [id number] 13:24:00 Test Item Value Reference Range Interpretation Comments AB HEPATITIS A IGM (test INDEX NON REACT. code = HAVMAB) AG HEPATITIS B SURFACE NON REACTIVE INDEX NonReactive (test code = HBSAG) AB HEPATITIS B CORE IGM NON REACTIVE INDEX NON REACT. (test code = HBCMAB) AB HEPATITIS C (test code NON REACTIVE INDEX NON REACT. = HCVAB) ACUTE HEPATITIS [id number] 12:57:00 Test Item Value Reference Range Interpretation Comments AB HEPATITIS A IGM (test INDEX NON REACT. code = HAVMAB) AG HEPATITIS B SURFACE NON REACTIVE INDEX NonReactive (test code = HBSAG) AB HEPATITIS B CORE IGM INDEX NON REACT. (test code = HBCMAB) AB HEPATITIS C (test code INDEX NON REACT. = HCVAB) [id number] 12:51:00 Test Item Value Reference Range Interpretation Comments GLUBED (test code = 195 MG/DL 70-110 H Performe d by certified GLUBED) handle lathe operator at [facility] [id number] 08:40:00 Test Item Value Reference Range Interpretation Comments GLUBED (test code = 101 MG/DL 70-110 N Performe d by certified GLUBED) handle lathe operator at [facility] [id number] 20:21:00 Test Item Value Reference Range Interpretation Comments GLUBED (test code = 169 MG/DL 70-110 H Performe d by certified GLUBED) handle lathe operator at [facility] [id number] 17:38:00 Test Item Value Reference Range Interpretation Comments GLUBED (test code = 135 MG/DL 70-110 H Performe d by certified GLUBED) handle lathe operator at [facility] [id number] 06:12:00 Test Item Value Reference Range Interpretation Comments GLUBED (test code = 136 MG/DL 70-110 H Performe d by certified GLUBED) handle lathe operator at [facility] [id number] 06:12:00 Test Item Value Reference Range Interpretation Comments GLUBED (test code = 128 MG/DL 70-110 H Performe d by certified GLUBED) handle lathe operator at [facility] B-TYPE NATRIURETIC [id number] 21:19:00 Test Item Value Reference Range Interpretation Comments B-TYPE NATRIURETIC PEPTIDE (test 583.7 PG/ML 0-100 H code = BNP) CBC W/AUTO [id number] 20:47:00 Test Item Value Reference Range Interpretation [...] MANUAL DIFF REQUIRED (test code NO = AUDREY) - CT NECK W/O [id number] 20:05:00 Name: ANDREA PEREZ [facility] : 1940 Age/S: 79 / M [address] [place] [address] Unit #: [id number] Loc: Cem [id number] Phys: Andrew Velez MD Acct: [id number] Dis Date: Status: REG ER PHONE #: [phone] Exam Date: 08/27/20191943 FAX #: [phone] Reason: neck swelling EXAMS: CPTCODE: [id number] CT NECK W/O CONTRAST 04017 Clinical Indication: Neck swelling; Comparison: None Technique: [...] 1 Signed Report (CONTINUED) Name: ANDREA PEREZ [facility] [place] : 1940 Age/S: 79 / M [address] [place] [address] Blvd U nit #: [id number] Loc: [place] [address] Phys: Andrew Velez MD Acct: [id number] Dis Date: Status: REG ER PHONE #: [phone] Exam Date: 08/27/20191943 FAX #: [phone] Reason: neck swelling EXAMS: CPT CODE: [id number] CT NECK W/O CONTRAST 67607 <Continued> of the mandibular teeth to suggest [...] Technologist:RT Marcia(R)(CT) CTDI: DLP: Trnscb Date/Time: 08/27/2019(2004) [id number] Orig Print D/T: S: 08/27/2019 (2008) PAGE 2 Signed ReportBASIC METABOLIC [id number] 19:20:00 Test Item Value Reference Range Interpretation [...] 8.7 mg/dL 8.0-10.5 N CA) HEPATIC FUNCTION [id number] 19:20:00 Test Item Value Reference Range Interpretation [...] 127 IUnit/L 20-125 H code = ALKP) [id number] 19:20:00 Test Item Value Reference Range Interpretation Comments LIPASE (test code = LIP) 259 IUnit/L 73-393 N [id number] 19:20:00 Test Item Value Reference Range Interpretation [...] may ana y by method. BASIC METABOLIC [id number] 19:19:00 Test Item Value Reference Range Interpretation [...] code = CA) mg/dL 8.0-10.5 HEPATIC FUNCTION [id number] 19:19:00 Test Item Value Reference Range Interpretation Comments TOTAL PROTEIN (test code = PROT) g/dL 6.4-8.2 ALBUMIN (test code = ALB) g/dL 3.4-5.0 BILIRUBIN TOTAL (test code = BILT) MG/DL <1.5 BILIRUBIN DIRECT (test code = BILD) MG/DL 0.0-0.30 SGOT/AST (test code = AST) IUnit/L 15-37 SGPT/ALT (test code = ALT) IUnit/L 15-65 ALKALINE PHOSPHATASE TOTAL (test IUnit/L 20-125 code = ALKP) [id number] 19:19:00 Test Item Value Reference Range Interpretation Comments LIPASE (test code = LIP) IUnit/L 73-393 [id number] 19:19:00 Test Item Value Reference Range Interpretation [...] y by method. - XR CHEST 1 [id number] 18:26:00 FAX: Andrew Velez MD [phone] [place]: St: REG Name: ANDREA PEREZ [facility] [place] : 1940 Age/S: 79/M [address] [place] [address] Bl Unit#: [id number] Loc: Susanne[address] [address] Phys: Andrew Velez MD Acct: [id number] Dis Date: Status: REG ER PHONE #: [phone] Exam Date: 08/27/20191811 FAX #: [phone] Reason: SOB EXAMS: CPT CODE: [id number] XR CHEST 1 V 60878 Portable single view AP chest INDICATION: Shortness [...] D/T: S: 08/27/2019 (1828) PAGE 1 Signed [id number] 12:06:00 Test Item Value Reference Range Interpretation Comments GLUBED (test code = 174 MG/DL 70-110 H Performe d by certified GLUBED) handle lathe operator at [facility] [id number] 08:04:00 Test Item Value Reference Range Interpretation Comments GLUBED (test code = 177 MG/DL 70-110 H Performe d by certified GLUBED) handle lathe operator at [facility] [id number] 21:17:00 Test Item Value Reference Range Interpretation Comments GLUBED (test code = 231 MG/DL 70-110 H Performe d by certified GLUBED) handle lathe operator at [facility] [id number] 17:24:00 Test Item Value Reference Range Interpretation Comments GLUBED (test code = 123 MG/DL 70-110 H Performe d by certified GLUBED) handle lathe operator at [facility] BASIC METABOLIC [id number] 15:59:00 Test Item Value Reference Range Interpretation [...] 8.1 mg/dL 8.0-10.5 N CA) CBC W/AUTO [id number] 15:41:00 Test Item Value Reference Range Interpretation [...] DIFF REQUIRED (test NO code = MDIFF) [id number] 12:16:00 Test Item Value Reference Range Interpretation Comments GLUBED (test code = 154 MG/DL 70-110 H Performe d by certified GLUBED) handle lathe operator at [facility] [id number] 11:41:00 Test Item Value Reference Range Interpretation Comments HGBA1C% (test code = HGBA1C%) 5.3 %A1C 4.8-6.0 N COMMENTS: use existing specimenCBC W/AUTO [id number] 10:42:00 Test Item Value Reference Range Interpretation [...] (test NO code = MDIFF) ACUTE HEPATITIS [id number] 08:09:00 Test Item Value Reference Range Interpretation [...] COMMENTS: At start of hemodialysisAB HEPATITIS B [id number] 08:09:00 Test Item Value Reference Range Interpretation Comments AB HEPATITIS B < 3.1 mIU/mL Immunity>9.9 L Status of I mmunity SURFACE (test code = HBSAB) Anti-HBs Level --- I ncons istent with Imm unity 0.0 - 9.9Consis tent with Immunity >9.9Performed A t: [facility] [id number] Robi Hinton MD Ph:[phone] COMMENTS: At start of [id number] 07:15:00 Test Item Value Reference Range Interpretation Comments GLUBED (test code = 131 MG/DL 70-110 H Performe d by certified GLUBED) handle lathe operator at [facility] [id number] 20:07:00 Test Item Value Reference Range Interpretation Comments GLUBED (test code = 199 MG/DL 70-110 H Performe d by certified GLUBED) handle lathe operator at [facility] [id number] 16:34:00 Test Item Value Reference Range Interpretation Comments GLUBED (test code = 196 MG/DL 70-110 H Performe d by certified GLUBED) handle lathe operator at [facility] - XR FLUOROSCOPY 0-60 [id number] 16:12:00 FAX: Davie Courtney [phone] [place]: St: ADM FAX: Jesus Spencer [phone] Name: ANDREA PEREZ [facility] : 1940 Age/S: 79/M [address] [place] [address] Unit #: [id number] Loc: G.5529 [place] [address] Phys: Alexandr Kwon MD Acct: [id number] Dis Date: Status: ADM IN PHONE #: [phone] Exam Date: 07/27/2019 1130 FAX #: [phone] Reason: LT AV GRAFT MALFUNCTION EXAMS: CPT CODE: [id number] XR FLUOROSCOPY 0-60 MIN 75431 Intraprocedural fluoroscopy was provided by the Department of Radiology. Any images obtained were interpreted by the surgeon intraoperatively. FLUOROSCOPY TIME: 1 minute 21 seconds REFERENCE AIR KERMA : 15.0 mGy SL: [id number] at 1612 Reported and signed by: Torrey Yan M.D. CC: Davie Lee MD; Alexandr Kwon MD Technologist: DARYN Newman) Trnscrd Date/Time/By: 07/27/2019 (0222) : By: Ruth Orig Print D/T: S: 07/27/2019 (2360) PAGE 1 Signed [id number] 07:36:00 Test Item Value Reference Range Interpretation Comments GLUBED (test code = 151 MG/DL 70-110 H Performe d by certified GLUBED) handle lathe operator at [facility] [id number] 20:35:00 Test Item Value Reference Range Interpretation Comments GLUBED (test code = 170 MG/DL 70-110 H Performe d by certified GLUBED) handle lathe operator at [facility] [id number] 16:59:00 Test Item Value Reference Range Interpretation Comments GLUBED (test code = 150 MG/DL 70-110 H Performe d by certified GLUBED) handle lathe operator at [facility] ACUTE HEPATITIS [id number] 14:02:00 Test Item Value Reference Range Interpretation [...] COMMENTS: At start of hemodialysisAB HEPATITIS B [id number] 14:02:00 Test Item Value Reference Range Interpretation Comments AB HEPATITIS B SURFACE (test code = HBSAB) COMMENTS: At start of hemodialysisACUTE HEPATITIS [id number] 13:40:00 Test Item Value Reference Range Interpretation Comments AB HEPATITIS A IGM (test INDEX NON REACT. code = HAVMAB) AG HEPATITIS B SURFACE NON REACTIVE INDEX NonReactive (test code = HBSAG) AB HEPATITIS B CORE IGM INDEX NON REACT. (test code = HBCMAB) AB HEPATITIS C (test code INDEX NON REACT. = HCVAB) COMMENTS: At start of hemodialysisAB HEPATITIS B [id number] 13:40:00 Test Item Value Reference Range Interpretation Comments AB HEPATITIS B SURFACE (test code = HBSAB) COMMENTS: At start of hemodialysis- DUP LE ART UNI/[id number] 11:49:00 Name: ANDREA PEREZ [facility] : 1940 Age/S: 79 / M [address] [place] [address] Unit #: [id number] Loc: Cem [id number] Phys: Alexandr Kwon MD Acct: [id number] Dis Date: Status: ADM IN PHONE #: [phone] Exam Date: 07/26/2019 1032 FAX #: [phone] Reason: right foot non-healing wound EXAMS: CPTCODE: [id number] [facility] Clinical Ink UNI/LTD 56226 RIGHT LOWER EXTREMITY ARTERIAL DOPPLER 07/26/2019 AT 1013 HOURS. CLINICAL HISTORY: Nonhealing rightfoot wound. COMPARISONS: None relevant. FINDINGS: Duplex sonographic evaluation of the bilateral lower extremity arterial circulation was performed. RIGHT SIDE: Triphasic waveforms are seen in the right common femoral, superficial femoral and popliteal artery. Monophasic waveforms are seen in the right posterior tibialis and dorsalis pedis artery. PEAK SYSTOLIC VELOCITIES: MANAGER LSW: 97 cm/s Femoral artery: 101 cm/s Popliteal: 42 cm/s Posterior tibialis: 29 cm/s Dorsalis pedis artery: 12 cm/s. IMPRESSION: 1. Severe right trifurcation atherosclerosis. 2. Nearly 60% drop in peak systolic velocities between right femoral and popliteal artery with preserved popliteal triphasic waveforms. Suspect flow-limiting stenosis at distal popliteal level. SL: [id number] at 1149 Reported and signed by: Desean Gong M.D. CC: Davie Lee MD; Alexandr Kwon MD Technologist: Yessica Johnson RDMS(Garcia)(BR) Trnscb Date/Time: 07/26/2019 (1149) [email or web address] Orig Print D/T: S: 07/26/2019 (8282) Probe: PAGE 1 Signed [id number] 11:20:00 Test Item Value Reference Range Interpretation Comments GLUBED (test code = 161 MG/DL 70-110 H Performe d by certified GLUBED) handle lathe operator at [facility] BASIC METABOLIC [id number] 08:33:00 Test Item Value Reference Range Interpretation [...] code = 8.3 mg/dL 8.0-10.5 N CA) [id number] 08:33:00 Test Item Value Reference Range Interpretation Comments MAGNESIUM (test code = MAG) 2.50 mg/dL 1.8-2.4 H [id number] 08:10:00 Test Item Value Reference Range Interpretation Comments GLUBED (test code = 172 MG/DL 70-110 H Performe d by certified GLUBED) handle lathe operator at [facility] CBC W/AUTO [id number] 06:08:00 Test Item Value Reference Range Interpretation [...] REQUIRED (test NO code = MDIFF) PROTHROMBIN [id number] 05:27:00 Test Item Value Reference Range Interpretation [...] Infarction (t o prevent recurre nt infarct). [id number] 22:48:00 Test Item Value Reference Range Interpretation Comments GLUBED (test code = 125 MG/DL 70-110 H Performe d by certified GLUBED) handle lathe operator at [facility] - XR CHEST 1 [id number] 18:11:00 FAX: Davie Courtney [phone] [place]: St: ADM FAX: Jesus Spencer [phone] Name: ANDREA PEREZ Rhianna [facility] : 1940 Age/S: 79/M [address] [place] [address] Unit #: [id number] Loc: G.5529 [place] [address] Phys: Alexandr Kwon MD Acct: [id number] Dis Date: Status: ADM IN PHONE #: [phone] Exam Date: 07/25/2019 180 FAX #: [phone] Reason: Post Op EXAMS: CPT CODE: [id number] XR CHEST 1 V 67125 Portable single view AP chest INDICATION: Postop. [...] vascular congestion with mild bilateral atelectasis. SL: SG-H at 1811 Reported and signed by: Cliff Raza M.D. CC: Davie Lee MD; Alexandr Kwon MD Technologist: RT Lizet(R) Trnscrd Date/Time/By: 07/25/2019 (1810) : By: [email or web address] Orig Print D/T: S: 07/25/2019 (1814) PAGE 1 Signed Report- XR FLUOROSCOPY 0-60 [id number] 17:51:00 FAX: Davie Courtney [phone] [place]: St: ADM FAX: Jesus Spencer [phone] Name: ANDREA PEREZ [facility] : 1940 Age/S: 79/M [address] [place] [address] Unit #: [id number] Loc: G.5529 [place] [address] Phys: Alexandr Kwon MD Acct: [id number] Dis Date: Status: ADM IN PHONE #: [phone] Exam Date: 07/25/2019 1645 FAX #: [phone] Reason: MALFUNCTION LT ARM AV GRAFT EXAMS: CPT CODE: [id number] XR FLUOROSCOPY 0-60 MIN 31366 Fluoroscopic guidance was provided by the radiology [...] Kwon MD Technologist: RT Trent(R) Trnscrd Date/Time/By: 07/25/2019 (1750) : By: [email or web address] Orig Print D/T: S: 07/25/2019 (758) PAGE 1 Signed ReportCBC W/AUTO [id number] 15:22:00 Test Item Value Reference Range Interpretation [...] REQUIRED (test NO code = MDIFF) PLT [id number] 15:22:00 Test Item Value Reference Range Interpretation Comments PLATELET ESTIMATE (test code 140-175 THOUSAND ADEQUATE = PLTEST) PLATELET MORPHOLOGY (test LARGE PLATELETS code = PLTMORPH) PROTHROMBIN [id number] 09:45:00 Test Item Value Reference Range Interpretation [...] o prevent recurre nt infarct). THROMBOPLASTIN TIME [id number] 09:45:00 Test Item Value Reference Range Interpretation Comments THROMBOPLASTIN TIME 33.9 Seconds 25.0-39.5 N Ther apeutic PARTIAL (test code = Range: 50.4 - 88.3 PTT) Seconds Effective 07/27/2018 [id number] 09:37:00 Test Item Value Reference Range Interpretation Comments PHOSPHOROUS (test code = PHOS) 4.1 MG/DL 2.5-4.9 N [id number] 09:37:00 Test Item Value Reference Range Interpretation Comments MAGNESIUM (test code = MAG) 2.40 mg/dL 1.8-2.4 N COMPREHENSIVE METABOLIC [id number] 09:11:00 Test Item Value Reference Range Interpretation [...] TOTAL (test code = ALKP) COMPREHENSIVE METABOLIC [id number] 09:06:00 Test Item Value Reference Range Interpretation [...] IUnit/L 20-125 code = ALKP) CBC W/AUTO [id number] 09:04:00 Test Item Value Reference Range Interpretation [...] REQUIRED (test NO code = MDIFF) PLT [id number] 09:04:00 Test Item Value Reference Range Interpretation Comments PLATELET ESTIMATE (test code = THOUSAND ADEQUATE PLTEST) CBC W/AUTO [id number] 09:04:00 Test Item Value Reference Range Interpretation [...] REQUIRED (test NO code = MDIFF) PLT [id number] 09:04:00 Test Item Value Reference Range Interpretation Comments PLATELET ESTIMATE (test code = THOUSAND ADEQUATE PLTEST) POC egjqmas3835-88-03 16:36:33 Test Item Value Reference Range Interpretation Comments POC glucose (test code = 238 mg/dL 65-99 H Ope rator Name: [id number]) Veena Sexton ice ID: [id number] able: [facility] Notified hostel parent Interpretation (test Abnormal code = 15885-6) [facility] MethodistPartial thromboplastin time, soojltqug5503-71-77 06:11:45 Test Item Value Reference Range Interpretation Comments PTT (test code = 52.8 23.0- 36.0 sec H PTT thera peutic range 60212-0) for unfractiona deshawn heparin is61.0- 112.0 seconds which corresponds to Anti-Xa0.3-0.7 U/ml. Lab Interpretation Abnormal (test code = 28721-5) [facility] MethodistCBC with platelet and cbhgyyvukqnt6086-53-45 06:01:31 Test Item Value Reference Range Interpretation Comments WBC (test code = 48968-9) 11.21 4.50- 11.00 k/uL H RBC (test code = 62711-1) 3.04 m/uL 4.4-6 L HGB (test code = 718-7) 8.5 g/dL 14-18 L HCT (test code = 4544-3) 29.7 % 41-51 L MCV (test code = 787-2) 97.7 fL 82-100 MCH (test code = 785-6) 28.0 pg 27-34 MCHC (test code = 786-4) 28.6 g/dL 31-37 L RDW - SD (test code = 63.7 fL 37-55 H 61892-6) MPV (test code = 14894-2) 12.5 fL 8.8-13.2 Platelet count (test code 127 150- 400 k/uL L = 19774-5) Nucleated RBC (test code 0.00 /100 WBC = 41982-2) Neutrophils (test code = 78.6 % 39-69 H 40558-7) Lymphocytes (test code = 8.8 % 25-45 L 52127-9) Monocytes (test code = 10.9 % 0-10 H 96009-6) Eosinophils (test code = 1.1 % 0-5 68527-4) Basophils (test code = 0.2 % 0-1 75148-3) Immature granulocytes 0.4 % 0-1 "Immat ure (test code = 81693-5) granul ocytes" (promyelocytes, myelocytes, metamyelocytes) Lab Interpretation (test Abnormal code = 12819-6) Shepherd MethodistXR Chest 1 Vw Qprpqtyt6858-43-53 12:45:16Hm Interface, Radiology Results - 06/08/2019 12:48 [...] effusion. No pneumothorax.Bones: Regional osseous structures appear stable.[id number] Shepherd MethodistBasic metabolic bsiao2759-37-22 06:39:31 Test Item Value Reference Range Interpretation Comments Sodium (test code = 2951-2) 135 135- 148 mEq/L Potassium (test code = 2823-3) 4.2 3.5- 5.0 mEq/L Chloride (test code = 2075-0) 97 98- 112 mEq/L L CO2 (test code = 8-9) 26 24- 31 mEq/L Anion gap (test code = 41740-1) 12@ANIO 7- 15 mEq/L BUN (test code = 3094-0) 31 mg/dL 8-23 H Creatinine (test code = 2160-0) 4.21 mg/dL 0.7-1.2 H Glucose (test code = 2345-7) 117 mg/dL 65-99 H Calcium (test code = 46990-7) 9.0 mg/dL 8.8-10.2 Lab Interpretation (test code = Abnormal 69881-6) [facility] MethodistMagnesium codde5097-60-46 06:39:31 Test Item Value Reference Range Interpretation Comments Magnesium (test code = 61393-0) 2.3 mg/dL 1.6-2.4 [facility] MethodistPhosphorus snxln5851-01-08 06:39:31 Test Item Value Reference Range Interpretation Comments Phosphorus (test code = 2777-1) 2.5 mg/dL 2.4-4.5 [facility] MethodistEstimated [id number] 06:39:31 Test Item Value Reference Range Interpretation Comments Estimated GFR (test 14 mL/min/1.73 m2 Garcia Gallegoscaridad roger Units code = 5488) InterpretationG 1 >=90 Hannah l or highG2 60-89 Mildly decrease dG3a 45-59 Mil dly to moderately decr ygmozI5t 30-44 Moderately to s everely decreasedG4 15-29 Severe ly decreasedG5 <15 Kidney fina lureThe eGFR was calcul ated using the [facility] Kidney Disease Epidemiology Collaboration ( CKD-EPI) equation. Interpretation is based on recommendati ons of the National Ki dney Foundation-Kidn ey Disease Outcome s Quality Initiat go (NKF-KDOQI) pub lished in 2013. Lab Interpretation Abnormal (test code = 31418-3) [facility] MethodistArterial blood zcm3659-54-16 11:45:20 Test Item Value Reference Range Interpretation Comments pH, arterial (test code = 2744-1) 7.38 7.35-7.45 pCO2, arterial (test code = 50 35- 45 mmHg H 2018-11) pO2, arterial (test code = 76 80- 90 mmHg L 2703-7) Bicarbonate, arterial (test code 28.8 mmol/L 21-28 H = 1960-4) Base excess, arterial (test code 4 -2 - 2 mEq-L H = 1925-7) O2 saturation, arterial (test 95 % 95-100 code = 2708-6) Lab Interpretation (test code = Abnormal 32730-2) Per[facility] MethodistUs duplex venous lower joijodwli6661-96-76 08:10:00Interface, Radiology Results In - 06/07/2019 8:11 AM [facility] Vascular Ultrasound Laboratory Lower Extremity Venous [address] [place] [address] Pat.Name: GABBY PEREZ Pat.ID: [id number] .Date: 06/07/2019 Refer.MD: KIMBERLY KHANNA MD Exam Time: 4:51:00 AM Study Type:LE Venous Age: 1001/16/1940,79Y Sex: MALE Sonogrphr: Jamal Lira, BA, BS, RDMS, RVTPat. Stat.:Inpatient Room: [address] Tape Vol: ZENAIDA, CPT - 4: 68248 Echo Event ID:[id number] Order ID: [id number] Reason for Study:Evaluate for DVT. Patient has [...] thigh, medial to the femoral vessels, measuring hbisxkumvxaex37.4x6.2x,2.34cm FINDINGS: Signed 06/07/2019 08:10 Jb Yung [facility] lumosesw1492-35-02 04:26:08 Test Item Value Reference Range Interpretation Comments WBC (test code = 64350-7) 16.21 4.50- 11.00 k/uL H RBC (test code = 53902-2) 3.35 m/uL 4.4-6 L HGB (test code = 718-7) 9.6 g/dL 14-18 L HCT (test code = 4544-3) 32.4 % 41-51 L MCV (test code = 787-2) 96.7 fL 82-100 MCH (test code = 785-6) 28.7 pg 27-34 MCHC (test code = 786-4) 29.6 g/dL 31-37 L RDW - SD (test code = 19266-6) 64.8 fL 37-55 H MPV (test code = 14839-5) 12.3 fL 8.8-13.2 Platelet count (test code = 132 150- 400 k/uL L 80452-8) Nucleated RBC (test code = 0.00 /100 WBC 28898-3) Lab Interpretation (test code = Abnormal 10125-4) Shepherd MethodistOccult blood, hneal6638-11-25 20:16:15 Test Item Value Reference Range Interpretation Comments Occult blood, Negative for Specimen stool (test occult blood. InformationSpe manish code = Source: StoolSp ecimen 2334-1) Site: Nonpreser nguyen Shepherd MethodistComprehensive metabolic cqsji8896-47-34 04:23:36 Test Item Value Reference Range Interpretation Comments Sodium (test code = 136 135- 148 mEq/L 2951-2) Potassium (test code = 4.7 3.5- 5.0 mEq/L 2823-3) Chloride (test code = 96 98- 112 mEq/L L 2075-0) CO2 (test code = 2027-9) 25 24- 31 mEq/L Anion gap (test code = 15@ANIO 7- 15 mEq/L 21775-1) BUN (test code = 3094-0) 38 mg/dL 8-23 H Creatinine (test code = 4.73 mg/dL 0.7-1.2 H 2160-0) Glucose (test code = 77 mg/dL 65-99 2345-7) Calcium (test code = 8.7 mg/dL 8.8-10.2 L 89246-4) Protein (test code = 6.4 g/dL 6.3-8.3 [place] 9994.6-7.0 2885-2) g/dL1 uutm9306.4-7.6 g/dL7 months-9akih275 .1- 7.3 g/dL1-2 chlni191.6-7.5 g/dL>3 ukxxc427.0-8.0 g/sT51-8893468. 3-8 .3 g/dL Albumin (test code = 2.4 g/dL 3.5-5 L 1751-7) A/G ratio (test code = 0.6 0.7-3.8 L 1759-0) Alkaline phosphatase 77 U/L 40-129 (test code = 6768-6) AST (test code = 1920-8) 10 U/L 10-50 ALT (test code = 1742-6) 15 U/L 5-50 Total bilirubin (test 0.5 mg/dL 0-1.2 code = 1975-2) Lab Interpretation (test Abnormal code = 52241-2) Percy AllenistECG 12 klis2150-71-86 10:46:09 Test Item Value Reference Range Interpretation Comments Ventricular rate (test 115 code = 253) Atrial rate (test code 115 = 255) LA interval (test code 114 = 266) QRSD [...] change was found-- Percy ChancePrepare RBC, 2 Lkenw2641-73-58 20:18:00 Test Item Value Reference Range Interpretation Comments Product name (test code Apheresis Red Cell AS3 = 25) #2 LR Unit number (test code [id number] = [id number]) Product code (test code W1076I82 = 3092) Dispense status (test Transfused code = 24) Blood expiration date (test code = 302) Blood type code (test 5100 code = 308) Blood type (test code = O POSITIVE 1314) Compatibility (test Compatible code = 6400) Percy AllenistSmear iohwew8549-38-77 09:08:06 Test Item Value Reference Range Interpretation Comments Platelet slide review (test code Trell slt decr = 14947-5) Anisocytosis (test code = 702-1) Moderate Polychromasia (test code = Moderate 32683-0) Ovalocytes (test code = 774-0) Moderate Percy MethodistAnti Xa, uqmqjkuhzdcjtx3389-33-04 00:22:06 Test Item Value Reference Range Interpretation Comments Anti Xa, unfractionated <0.10 0.3-0.7 L Ther apeutic Range: (test code = 3274-8) 0.30 - 0.70 U/mL Lab Interpretation (test Abnormal code = 78202-0) Greer MethodistProthrombin time with YYI4296-63-05 00:09:41 Test Item Value Reference Range Interpretation Comments Prothrombin time (test 14.8 11.5- 14.5 sec H code = 5902-2) INR (test code = 1.2 [facility] 79363-3) Normalized Rati o (INR) is a therapeuti c monitoring tool for patients who ar e stable on oral anticoagulant t herapy. An INR of 2.0-3 .0 is suggested for d eep vein thrombosis/pulm onary embolism. Lab Interpretation Abnormal (test code = 38677-1) Shepherd MethodistRespiratory pathogen ndxuv1912-84-67 22:13:14 Test Item Value Reference Interpretation Comments Range Respiratory Positive for Influenza A Speci men pathogen panel A/H1-2008 [facility] ecimen (test code = virus Gris rce: 2148) ----Negative for all [facility] ecimen Site: other pathogens Right tested:Negative for AdenovirusNegative for Coronavirus CKX7Cvzcgsxb for Coronavirus XX19Ymqrmrqb for Coronavirus 229ENegative for Coronavirus OB22Xlshbuyb for Human MetapneumovirusNegative for Rhinovirus/EnterovirusNe gative for Influenza ANegative for Influenza A/G1Qbcolaje for Influenza A/C1Sctcyyja for Influenza BNegative for Parainfluenza Virus 1Negative [...] assay. Lab Abnormal Interpretation (test code = 92218-3) Shepherd MethodistCT Angiogram Pe Kfqxs7886-56-76 20:01:02Hm Interface, Radiology Results - 06/03/2019 8:04 [...] Kerr, at 8:00 PM, and she expressed [facility]-[id number] JbjzrcgofU-njlpk2743-41-21 15:17:52 Test Item Value Reference Range Interpretation Comments D-dimer (test code = 1.73 0.00- 0.40 ug/mL H Uni ts are ug/ml 98909-1) FEU Fibrinogen Equivalent Unit .When combined with [...] malignancies. Lab Interpretation Abnormal (test code = 80762-5) Percy MethodistType and vwjvje0409-92-76 09:53:00 Test Item Value Reference Range Interpretation Comments ABO grouping (test code = 883-9) O Rh type (test code = 19976-9) POS Antibody screen (gel) (test code = NEG 890-4) Shepherd Anama lambda free light chain with ytfbh7011-37-25 07:19:49 Test Item Value Reference Range Interpretation Comments [place] light chain (test code = 289.08 mg/L 3.3-19.4 H 95929-4) Lambda light chain (test code = 143.97 mg/L 5.7-26.3 H 97368-4) [place] lambda ratio (test code = 2.01 0.26-1.65 H 52253-0) Lab Interpretation (test code = Abnormal 48353-1) Shepherd MethodistCv pyp scan for cardiac bjewtjmqwle0149-32-23 15:40:00 Interface, Radiology Results In - 06/01/2019 3:40 PM [facility] Nuclear Cardiology and Cardiac CT [address] [place] [address] PYP Cardiac Amyloidosis Imaging ReportPat.Name: GABBY PEREZ Pat.ID: [id number] .Date: 06/01/2019 Refer.MD: AD QUINTERO MD Exam Time: 11:24:00 AM Study Type:PYP Cardiac Amyloidosis ImagingHeight: 71in Weight: 266lb BSA: 2.38 m2 Age: 1001/16/1940,79Y Sex: MALE Nuclear Tech:TRACY TavaresMT, [facility](N)Pat. Stat.:Inpatient NuclearEvent ID:[id number] Order ID: [id number] Reason for Study:R/O TTR amyloid History / [...] (ATTR). -------FINDINGS: Signed 06/01/2019 03:40 PMMohan Saucedo MDShepherd MethodistT3, vydq6264-48-80 08:33:03 Test Item Value Reference Range Interpretation Comments T3, free (test code = 1.1 pg/mL 2.4-4.2 L REFERE NCE INTERVAL: 5404-9) Triiodothyronin e, Free (Free T3)A ccess complete set of age- and/or gender-specific reference inter vals for this test i n the [facility] Test Directory ([employer]).P erfor med by [employer],[address] [place] [address] hiq .[facility], Jared Foster MD, Dorothy gotti Director Lab Interpretation (test Abnormal code = 20286-4) [facility] calcium dwhfs7185-04-89 19:15:00Interface, Radiology Results In - 05/31/2019 7:15 PM [facility] Nuclear Cardiology and Cardiac CT [address] [place] [address] Calcium Scoring ReportPat.Name: GABBY PEREZ [facility].ID: [id number] .Date: 05/31/2019 Refer.MD: AD QUINTERO MD Exam Time: 3:04:00 PM Study Type:CT Calcium Scoring Height: 71in Weight: 266lbBSA: 2.38 m2 Age: 1001/16/1940,79Y Sex: MALE HR: 92 bpm Nuclear Tech:Ayo Aviles RT([place])(CT), [facility]/Abdiel Billings [facility]. Stat.:Inpatient Nuclear Event ID:[id number] Order ID: [id number] Reason for Study:Eval Aortic Valve Procedures: CT Flash mode Race: Black SUMMARY: Technique: Sequential 3mm CT cuts were obtained through the [facility] with ECG gating. Interactive imageviewing [...] MethodistEchocardiogram complete w contrast and 3D if niouui4007-43-10 13:49:00Interface, Radiology Results In - 05/31/2019 1:49 PM [facility] Echocardiography Report [address] [facility], [place] [address] Pat.Name: GABBY PEREZ Pat.ID: [id number].Date: 05/30/2019 Refer.MD: AD QUINTERO MD Exam Time: 6:00:00 PM Study Type:Routine Echo Height: 71in Weight: 305lb BSA: 2.53 m2 Age: 1001/16/1940,79Y Sex: MALE BP: 138/70 HR: 72 bpm Sonogrphr: EZRA Stock Pat. Stat.:Inpatient Room: [address] Study Status:Final Echo Event ID:[id number] Order ID: [id number] Reason for Study:Aortic stenosis evaluation.History / Clinical:Congestive [...] of 10 mmHg. MEASUREME NTS: 2DParasternal Long [place] AoAn 2.5 cm LVPWd 1.2 cm Ao [...] SVi 42ml/m2 Signed 05/31/2019 01:49 PMJodi Rose M.D.Shepherd MethodistIonized asgiylp2900-80-90 07:45:51 Test Item Value Reference Range Interpretation Comments pH (test code = 2753-2) 7.38 Ionized calcium (test code = 1.06 mmol/L 1.11-1.32 L ) Lab Interpretation (test code = Abnormal 03377-1) Shepherd MethodistHeparin PF4 antibody (IgG)2019-05-31 02:31:58 Test Item Value Reference Range Interpretation Comments Heparin PF4 Ab OD reading (test code 0.206 0.000-0.399 = 1500) Heparin PF4 Ab, IgG (test code = Negative Negative 85082-4) Shepherd MethodistUs duplex arterial lower qjqwkwmps3045-55-09 21:50:00Interface, Radiology Results In - 05/31/2019 9:03 AM [facility] Vascular Diagnostic Laboratory Physiologic Arterial Leg Report [address] [place] [address] Pat.Name: GABBY PEREZ Pat.ID: [id number] .Date: 05/30/2019 Refer.MD: AD QUINTERO MD Exam Time: 2:32:00 PM Study Type:Physiologic Leg Age: 1001/16/1940,79Y Sex: MALE Sonogrphr: Priti Recinos RVT Pat. Stat.:Inpatient Room: WT9-0905-A Tape Vol: RF, CPT - 4: 18413 Echo Event ID:[id number] Order ID: [id number] Reason for Study:Bilateral decreased pedal pulses. History of ESRD onHD via left AVFm CHFm AICD,aortic stenosis, cardiomyopathy, DMhypoxic respiratory failure, chronic trach, PAD.Procedures: Ankle/brachial pressures, Digit pressuresRace: B -----SUMMARY: ANKLE/BRACHIAL INDEX: RIGHT LEFT Brachial Artery Ojhfjads983 mmHg AV-Fistula DP 0 mmHg 0 mmHg [...] the normal category. FINDINGS: Signed 05/30/2019 9:50:00 PMMarcellus Yung MD, RPVIShepherd Methodist ankle brachial nvxau5124-25-09 21:50:00Interface, Radiology Results In - 05/30/2019 9:50 PM [facility] Vascular Diagnostic Laboratory Physiologic Arterial Leg Report [id number] [address] Pat.Name: GABBY PEREZ Pat.ID: [id number] .Date: 05/30/2019 Refer.MD: AD QUINTERO MD Exam Time: 2:32:00 PM Study Type:Physiologic Leg Age: 1001/16/1940,79Y Sex: MALE Sonogrphr: Priti Recinos RVT Pat. Stat.:Inpatient Room: [address] Tape Vol: RF,CPT - 4: 04008 Echo Event ID:[id number] Order ID: [id number] Reason for Study:Bilateral decreased pedal pulses. History of ESRD onHD via left AVFm CHFm AICD,aortic stenosis, cardiomyopathy, DMhypoxic respiratory failure, chronic trach, PAD.Procedures: Ankle/brachial pressures, Digit pressuresRace: B -----SUMMARY: ANKLE/BRACHIAL INDEX: RIGHT LEFT Brachial Artery Zbcbutiu282 mmHg AV-Fistula DP 0 mmHg 0 mmHg [...] FINDINGS: Signed 05/30/2019 09:50 PMMarcellus Yung MD, RPVIShepherd MethodistUs duplex arterial upper tbkszqtmo3648-30-92 17:50:00Interface, Radiology Results In - 05/30/2019 5:50 PM [facility] Vascular Ultrasound Laboratory Upper Extremity Arterial Report [address] [address]Bmm.Name: GABBY PEREZ Pat.ID: [id number] .Date: 05/30/2019 Refer.MD: AD QUINTERO MD Exam Time: 3:21:00 PM Study Type:UE Arterial Age: 1001/16/1940,79Y Sex: MALE Sonogrphr: PAUL Herrera. Stat.:Inpatient Room: [address] Vol: RF, CPT - 4: [address]Nrxt Event ID:[id number] Order ID: [id number] Reason for Study:Bilateral armpain and swelling. History [...] artery. Patent left AV fistula. FINDINGS:- Signed 05/30/2019 05:50 Elizabeth Yung MD, RPVIHoucentral hospital AawpyrxebWAJ0530-13-42 12:55:52 Test Item Value Reference Range Interpretation Comments LDH (test code = 78467-5) 267 U/L 87-225 H Lab Interpretation (test code = Abnormal 68086-8) Shepherd MethodistManual qfgmkmcsvgnm7521-92-48 06:07:32 Test Item Value Reference Range Interpretation Comments Manual differential (test code = PERFORMED 85368-1) Neutrophils (test code = 53029-9) 81.0 % 39-69 H Lymphocytes (test code = 50692-4) 10.0 % 25-45 L Monocytes (test code = 94775-0) 8.0 % 0-10 Eosinophils (test code = 21337-0) 1.0 % 0-5 Basophils (test code = 52045-4) 0.0 % 0-1 Metamyelocytes (test code = 740-1) 0 % Promyelocytes (test code = 783-1) 0 % Platelet slide review (test code = Decreased A 94878-5) Anisocytosis (test code = 702-1) Moderate Polychromasia (test code = Moderate 94989-0) Tear drop cells (test code = Occasional 7791-7) [place] cells (test code = 7790-9) Moderate A Enlarged platelets (test code = Moderate A 22196-4) Lab Interpretation (test code = Abnormal 11366-0) Greer MethodistT4, xrmb9328-34-09 01:47:34 Test Item Value Reference Range Interpretation Comments T4, free (test code = 3024-7) 0.7 ng/dL 0.9-1.7 L Lab Interpretation (test code = Abnormal 80565-3) Shepherd MethodistThyroid stimulating xgjulwg8480-49-94 01:47:34 Test Item Value Reference Range Interpretation Comments TSH (test code = 3016-3) 0.63 0.27- 4.20 uIU/mL Shepherd MethodistUric acid pwdzy6484-47-01 01:19:56 Test Item Value Reference Range Interpretation Comments Uric acid (test code = 3084-1) 4.5 mg/dL 3.4-7 Shepherd MethodistHepatitis B surface fnlvgrb2929-35-75 16:11:47 Test Item Value Reference Range Interpretation Comments Hepatitis B surface Ag (test Non-reactive Non-reactive code = 5195-3) Percy ChanceHemoglobin T3o1005-68-88 10:29:18 Test Item Value Reference Range Interpretation Comments Hemoglobin A1C (test 6.5 % 4-5.6 H HbA1c c utoffs for code = 06294-1) diagnosing diabetes:4.0% - 5.6% = normal5.7% - 6.4% = increased risk for diabetes (prediabetes)9> =6.5% = wjigatkx4Zexe s for glycemic contro l (ADA 2016)< 7.0% Ta rget for non adults with dwight betes. More or less stringent targe ts may be appropriate for individual lui ents. <7.5% Target for Children and adolescents wit h type 1 diabetes. Lab Interpretation (test Abnormal code = 48547-7) Percy Chance
[2019-10-22] MEDS ORDERED: NA CHLORIDE 0.9% 500 ML ONE ×2 (20:39→20:41)
--- NOTE | 2019-10-22 21:06 | RAD REPORT ---
EXAM DESCRIPTION: CT - CTHCSPWOC - 10/22/2019 8:42 pm CLINICAL HISTORY: traumatrip and fall, head and neck injury COMPARISON: Soft tissue neck CT April 2018 TECHNIQUE: Axial 5 mm thick images of the head were obtained. Axial 2 mm thick images of the cervic al spine were obtained with sagittal and coronal reconstruction images generated and reviewed. All CT scans are performed using dose optimization technique as appropriate and may include automated exposure control or mA/KV adjustment according to patient size. FINDINGS: No intracranial hemorrhage, mass, edema or acute intracranial finding. No suspicion for ac bernabe infarction. Mild to moderate atrophy changes are present. Chronic ischemic changes mild. Ventricl es are in proportion to volume loss. Small right frontal scalp hematoma present. Underlying bone is i ntact. Mastoid air cells are clear. Chronic sinus or polyposis changes are present in the right maxil sweetie sinus and nasal passage. This is similar to April 2018. No globe or orbit abnormality seen. Ar terial tree calcifications are present. Cervical bodies are normal in height. Anterior subluxation of C3 on C4 has not changed from compariso n. C3-4 C5-6, C6-7 and C7-T1 levels show disc space narrowing. No fracture or acute bony abnormality. Central canal detail is inherently limited. No paraspinal mass or hematoma. Trach tube is in place. IMPRESSION: No hemorrhage, edema or acute intracranial finding. Patient has atrophy and chronic isch emic change. Cervical spine degenerative change present not clearly different comparison. No acute cervical spine finding seen.
[2019-10-22 21:19] LABS: RBC Red Blood Cell Count 4.31 M/uL (4.33-5.43)
[2019-10-22 21:20] LABS: Absolute Lymphocytes (CBC) 0.7 K/uL (0.7-4.9); Basophils % 0.6 % (0-1.3); Hematocrit 41.7 % (39.6-49.0); Lymphocytes % 5.6 % (15.3-44.8); MPV 10.1 fL (7.6-11.3)
[2019-10-22 21:36] LABS: Albumin 3.1 g/dL (3.4-5.0); Bilirubin Direct 0.2 mg/dL (0-0.2); Bilirubin Total 0.5 mg/dL (0.2-1.0); Potassium 3.8 mmol/L (3.5-5.1); Protein, Total 7.8 g/dL (6.4-8.2)
[2019-10-22] MEDS ORDERED: ACETAMINOPHEN 500 MG TAB ONE (21:36)
--- NOTE | 2019-10-22 22:08 | ER ---
Nurse's Notes [facility] Name: Sergio Perez Age: 79 yrs Sex: Male : 1940 Arrival Date: 10/22/2019 Time: 20:22 Bed 8 Private MD: Diagnosis: Other chest pain Presentation: 10/21 20:22 Chief complaint: EMS states: patient tripped while walking to the bathroom, hit his sg face on the wall and fell on the ground but denies LOC. sustained hematoma and small laceration on the forehead. on blood thinner but cant name the medicine. Coronavirus screen: Proceed with normal triage. Patient denies a cough. Patient denies shortness of breath or difficulty breathing. Patient denies measured and/or subjective temperature greater than 100.4F prior to today's visit. Patient denies travel on a cruise ship or to a country the [facility] currently lists as an affected area. Patient denies contact with known and/or suspected case of COVID-19. Ebola Screen: No symptoms or risks identified at this time. Initial Sepsis Screen: Does the patient meet any 2 criteria? No. Patient's initial sepsis screen is negative. Does the patient have a suspected source of infection? No. Patient's initial sepsis screen is negative. Risk Assessment: Do you want to hurt yourself or someone else? Patient reports no desire to harm self or others. Onset of symptoms was October 22, 2019. 20:22 Method Of Arrival: EMS: [facility] 20:22 Acuity: KARLENE 2 sg 21:57 Care prior to arrival: None. Mechanism of Injury: Fall from standing position. Trauma ea event details: Injury occurred in the [facility], Injury occurred: at home. Injury occurred: October 22, 2019. Triage Assessment: 20:33 General: Appears in no apparent distress. comfortable, Behavior is calm, cooperative. sg Pain: Complains of pain in head. EENT: No signs and/or symptoms were reported regarding the EENT system. Neuro: Level of Consciousness is awake, alert, obeys commands, Oriented to person, place, time, situation. Cardiovascular: Capillary refill < 3 seconds Patient's skin is warm and dry. Respiratory: Airway is patent Respiratory effort is even, unlabored, Respiratory pattern is regular, symmetrical. GI: No signs and/or symptoms were reported involving the gastrointestinal system. : No signs and/or symptoms were reported regarding the genitourinary system. Derm: Wound noted forehead Wound is small laceration, no active bleeding. Musculoskeletal: Circulation, motion, and sensation intact. Capillary refill < 3 seconds. Trauma Activation: Alert Physician: ED Physician; Name: ; Notified At: ; Arrived At: Physician: General Surgeon; Name: ; Notified At: ; Arrived At: Physician: Radiology; Name: ; Notified At: ; Arrived At: Physician: Respiratory; Name: ; Notified At: ; Arrived At: Physician: Lab; Name: ; Notified At: ; Arrived At: Historical: - Allergies: 20:28 Demerol; sg 20:28 Iodine; sg 20:28 Meperidine; sg 20:28 SHELLFISH; sg - Home Meds: 20:28 clopidogrel 75 mg Oral tab 1 tab once daily [Active]; sg - PMHx: 20:28 Anemia; CHF; COPD; Diabetes - NIDDM; Dialysis; M-W-F; ESRD; GERD; Gout; Hypertension; sg Pacemaker; with defib; - Immunization history:: Flu vaccine is not up to date. - Social history:: Smoking status: unknown. - Immunization history: Last tetanus immunization: unknown. Screenin:36 Abuse screen: Denies threats or abuse. Denies injuries from another. Nutritional sg screening: No deficits noted. Tuberculosis screening: No symptoms or risk factors identified. Fall risk At risk due to injury, age, prior history of falls. Exposure risk/Travel Screening: None identified. 22:45 Fall Risk Fall in past 12 months (25 points). IV access (20 points). mg2 Primary Survey: 20:35 NO uncontrolled hemorrhage observed. A: The patient is alert. Airway: patent. sg Breathing/Chest: Respiratory pattern: regular, Respiratory effort: spontaneous, unlabored, Breath sounds: clear, Chest inspection: symmetrical rise and fall of the chest. Circulation: Skin color: pink. Disability Alert. Exposure/Environment: All clothing and personal items were removed. Forensic evidence collection is not deemed to be indicated at this time. Items placed in patient belonging bag. There is no evidence of uncontrolled external bleeding. Obvious injury(ies) are noted at this time: small laceration on the forehead A warming method has been applied: A warm blanket has been provided to the patient. 21:57 Reassessment Breathing/Chest Respiratory pattern Regular Respiratory effort Spontaneous ea Disability Alert. Secondary Survey: 20:35 HEENT: Head Other small laceration with hematoma. Gastrointestinal: No deficits noted. sg : No deficits noted. Musculoskeletal: Circulation, motion, and sensation intact. Capillary refill < 3 seconds. Assessment: 20:24 General: trauma alert called. sg 20:30 Pain: Complains of pain in forehead. Neuro: Level of Consciousness is awake, alert, mg2 obeys commands, Oriented to person, place, time, situation. Cardiovascular: Capillary refill < 3 seconds Patient's skin is warm and dry. Respiratory: Airway is patent Respiratory effort is even, unlabored, Respiratory pattern is regular, symmetrical. GI: No signs and/or symptoms were reported involving the gastrointestinal system. : No signs and/or symptoms were reported regarding the genitourinary system. EENT: No signs and/or symptoms were reported regarding the EENT system. Derm: Wound noted forehead. Musculoskeletal: Circulation, motion, and sensation intact. Capillary refill < 3 seconds. 20:36 Reassessment: sent to c t scan. sg 21:40 Reassessment: patient complained of chest tightness. provider informed. sg 23:22 Reassessment: Sister [id number]. ea 10/22 00:21 Reassessment: Patient and/or family updated on plan of care and expected duration. Pain ea level reassessed. Patient is alert, oriented x 3, equal unlabored respirations, skin warm/dry/pink. 00:28 General: Appears in no apparent distress. comfortable, Behavior is calm, cooperative. mg2 Vital Signs: 10/21 20:22 BP 83 / 45; Pulse 91; Resp 18; Temp 98.7; Pulse Ox 98% on R/A; sg 21:54 BP 90 / 44; Pulse 85; Resp 18; Pulse Ox 98% on R/A; sg 22:13 BP 93 / 56; Pulse 83; Resp 18; Pulse Ox 100% on R/A; sg 22:33 BP 100 / 59; Pulse 83; Resp 18; Pulse Ox 100% on R/A; mg2 22:45 BP 98 / 59; Pulse 83; Resp 18; Pulse Ox 100% on R/A; mg2 10/22 00:21 BP 93 / 43; Pulse 87; Resp 20; Pulse Ox 98% ; ea [place] Coma Score: 10/21 21:56 Eye Response: spontaneous(4). Verbal Response: oriented(5). Motor Response: obeys ea commands(6). Total: 15. 22:13 Eye Response: spontaneous(4). Verbal Response: oriented(5). Motor Response: obeys sg commands(6). Total: 15. Trauma Score (Adult): 21:56 Eye Response: spontaneous(1); Verbal Response: oriented(1); Motor Response: obeys ea commands(2); Systolic BP: > 89 mm Hg(4); Respiratory Rate: 10 to 29 per min(4); Corona Score: 15; Trauma Score: 12 22:13 Eye Response: spontaneous(1); Verbal Response: oriented(1); Motor Response: obeys sg commands(2); Systolic BP: > 89 mm Hg(4); Respiratory Rate: 10 to 29 per min(4); [place] Score: 15; Trauma Score: 12 ED Course: 20:22 Patient arrived in ED. sg 20:24 Raghavendra Cantrell MD is Attending Physician. tw4 20:27 Triage completed. sg 20:31 Carlos Walker, SHAI is Primary Nurse. mg2 20:34 Arm band placed on. sg 20:36 Patient has correct armband on for positive identification. sg 20:36 No provider procedures requiring assistance completed. Patient maintains SpO2 sg saturation greater than 95% on room air. 20:43 CT Head C Spine In Process Unspecified. EDMS 21:05 Inserted saline lock: 22 gauge in right hand, using aseptic technique. Blood collected. sg 21:56 Thermoregulation: warm blanket given to patient. ea 22:06 Anmol Salazar MD is Hospitalizing Provider. tw4 23:23 Patient admitted, IV remains in place. ea 10/22 00:29 Dressings: steri-strips applied on the forehead. mg2 Administered Medications: 10/21 21:12 Drug: NS 0.9% 500 ml Route: IV; Rate: bolus; Site: right hand; sg 21:54 Drug: Tylenol 1000 mg Route: PO; sg Intake: 23:23 PO: 0ml; Total: 0ml. ea Outcome: 22:08 Decision to Hospitalize by Provider. tw4 23:23 Instructed on the need for admit, Demonstrated understanding of instructions. ea 23:23 Patient's length of stay was not longer than 2 hours. 10/22 01:21 Admitted to Med/surg accompanied by tech, room 402, with chart, Report called to pam Thompson RN Condition: stable 01:35 Patient left the ED. mg2 Signatures: Dispatcher [employer] EDCliff Fitzgerald RN RN Josselin Caceres RN Raghavendra Grey ea, MD MD tw4 Carlos Walker RN RN mg2
--- NOTE | 2019-10-22 22:08 | EDPHYS ---
Physician Documentation [facility] Name: Sergio Perez Age: 79 yrs Sex: Male : 1940 Arrival Date: 10/22/2019 Time: 20:22 Bed 8 Private MD: ED Physician Raghavendra Cantrell HPI: 10/21 22:38 This 79 yrs old Black Male presents to ER via EMS with complaints of Fall Injury. tw4 22:38 Details of fall: The patient fell from an upright position, while standing. Onset: The tw4 symptoms/episode began/occurred today. Associated injuries: The patient sustained injury to the head. Severity of symptoms: At their worst the symptoms were mild, in the emergency department the symptoms are unchanged. The patient has not experienced similar symptoms in the past. Historical: - Allergies: 20:28 Demerol; sg 20:28 Iodine; sg 20:28 Meperidine; sg 20:28 SHELLFISH; sg - Home Meds: 20:28 clopidogrel 75 mg Oral tab 1 tab once daily [Active]; sg - PMHx: 20:28 Anemia; CHF; COPD; Diabetes - NIDDM; Dialysis; M-W-F; ESRD; GERD; Gout; Hypertension; sg Pacemaker; with defib; - Immunization history:: Flu vaccine is not up to date. - Social history:: Smoking status: unknown. - Immunization history: Last tetanus immunization: unknown. ROS: 22:40 Constitutional: Negative for fever, chills, and weight loss, Eyes: Negative for injury, tw4 pain, redness, and discharge, Cardiovascular: Negative for chest pain, palpitations, and edema, Respiratory: Negative for shortness of breath, cough, wheezing, and pleuritic chest pain, Abdomen/GI: Negative for abdominal pain, nausea, vomiting, diarrhea, and constipation, Back: Negative for injury and pain, MS/Extremity: Negative for injury and deformity, Skin: Negative for injury, rash, and discoloration, Neuro: Negative for headache, weakness, numbness, tingling, and seizure. Exam: 22:40 Constitutional: This is a well developed, well nourished patient who is awake, alert, tw4 and in no acute distress. Chest/axilla: Normal chest wall appearance and motion. Nontender with no deformity. No lesions are appreciated. Cardiovascular: Regular rate and rhythm with a normal S1 and S2. No gallops, murmurs, or rubs. Normal PMI, no JVD. No pulse deficits. Respiratory: Lungs have equal breath sounds bilaterally, clear to auscultation and percussion. No rales, rhonchi or wheezes noted. No increased work of breathing, no retractions or nasal flaring. Abdomen/GI: Soft, non-tender, with normal bowel sounds. No distension or tympany. No guarding or rebound. No evidence of tenderness throughout. Back: No spinal tenderness. No costovertebral tenderness. Full range of motion. MS/ Extremity: Pulses equal, no cyanosis. Neurovascular intact. Full, normal range of motion. Neuro: Awake and alert, GCS 15, oriented to person, place, time, and situation. Cranial nerves II-XII grossly intact. Motor strength 5/5 in all extremities. Sensory grossly intact. Cerebellar exam normal. Normal gait. 22:40 Head/face: Noted is hematoma, that is moderate. Vital Signs: 20:22 BP 83 / 45; Pulse 91; Resp 18; Temp 98.7; Pulse Ox 98% on R/A; sg 21:54 BP 90 / 44; Pulse 85; Resp 18; Pulse Ox 98% on R/A; sg 22:13 BP 93 / 56; Pulse 83; Resp 18; Pulse Ox 100% on R/A; sg 22:33 BP 100 / 59; Pulse 83; Resp 18; Pulse Ox 100% on R/A; mg2 22:45 BP 98 / 59; Pulse 83; Resp 18; Pulse Ox 100% on R/A; mg2 /12 00:21 BP 93 / 43; Pulse 87; Resp 20; Pulse Ox 98% ; ea Adams Coma Score: 10/21 21:56 Eye Response: spontaneous(4). Verbal Response: oriented(5). Motor Response: obeys ea commands(6). Total: 15. 22:13 Eye Response: spontaneous(4). Verbal Response: oriented(5). Motor Response: obeys sg commands(6). Total: 15. Trauma Score (Adult): 21:56 Eye Response: spontaneous(1); Verbal Response: oriented(1); Motor Response: obeys ea commands(2); Systolic BP: > 89 mm Hg(4); Respiratory Rate: 10 to 29 per min(4); Adams Score: 15; Trauma Score: 12 22:13 Eye Response: spontaneous(1); Verbal Response: oriented(1); Motor Response: obeys sg commands(2); Systolic BP: > 89 mm Hg(4); Respiratory Rate: 10 to 29 per min(4); [place] Score: 15; Trauma Score: 12 MDM: 20:24 Patient medically screened. tw4 22:42 Differential diagnosis: abrasion, closed head injury. Data reviewed: vital signs, 4 nurses notes. Data interpreted: Pulse oximetry: Interpretation: normal. Counseling: I had a detailed discussion with the patient and/or guardian regarding: the historical points, exam findings, and any diagnostic results supporting the discharge/admit diagnosis. 10/21 20:28 Order name: Basic Metabolic Panel; Complete Time: 22:01 [facility] 10/21 22:02 Interpretation: Normal except: NA 135; GFR 15; CRE 4.48; GLUC 237. [facility] 10/21 20:28 Order name: CBC with Diff; Complete Time: 22:01 [facility] 10/21 22:02 Interpretation: Normal except: WBC 11.7; RBC 4.31; HGB 12.6; HCT 41.7; MCHC 30.3; LYM% tw4 5.6; OTTONIEL% 84.0; RDW 18.6; PLT 122; LYMA 0.7. 10/21 20:28 Order name: Hepatic Function; Complete Time: 22:01 [facility] 10/21 22:02 Interpretation: Normal except: ALK 140; AST 11; ALB 3.1; GLOB 4.7; A/G 0.7. [facility] 10/21 20:28 Order name: Lipase; Complete Time: 22:01 [facility] 10/21 22:02 Interpretation: Within normal limits: LIP 226. [facility] 10/21 21:40 Order name: Troponin (emerg Dept Use Only); Complete Time: 22:06 10/21 22:06 Interpretation: Within normal limits. [facility] 10/21 23:08 Order name: Basic Metabolic Panel [facility] 10/21 20:28 Order name: CT Head C Spine; Complete Time: 22:01 [facility] 10/21 22:40 Interpretation: No acute disease. [facility] 10/21 23:08 Order name: Basic Metabolic Panel [facility] 10/21 23:08 Order name: CBC with Automated Diff [facility]MS 10/21 23:08 Order name: CBC with Automated Diff EDMS 10/21 23:08 Order name: Troponin I [facility] 10/21 23:08 Order name: Troponin I [facility] 10/21 23:08 Order name: Troponin I [facility] 10/21 20:28 Order name: IV Saline Lock; Complete Time: 21:12 tw4 10/21 20:28 Order name: Labs collected and sent; Complete Time: 21:12 tw4 10/21 23:08 Order name: EKG Electrocardiogram [facility] 10/21 23:08 Order name: EKG Electrocardiogram EDMS 10/21 23:08 Order name: EKG Electrocardiogram [facility] 10/21 23:08 Order name: EKG Electrocardiogram EDWI EC/12 00:47 Rate is 83 beats/min. Rhythm is regular, Normal Sinus Rhythm. Left axis deviation tw4 noted. RI interval is normal. QT interval is normal. No Q waves. No ST changes noted. Clinical impression: Normal ECG. Interpreted by me. Reviewed by me. Administered Medications: 10/21 21:12 Drug: NS 0.9% 500 ml Route: IV; Rate: bolus; Site: right hand; sg 21:54 Drug: Tylenol 1000 mg Route: PO; sg Disposition: 10/22/19 22:08 Hospitalization ordered by nAmol Salazar for Observation. Preliminary diagnosis is Other chest pain. - Bed requested for Telemetry/MedSurg (observation). - Status is Observation. mg2 - Condition is Stable. - Problem is new. - Symptoms have improved. Signatures: Dispatcher [employer] EDWI Cliff Leigh RN RN Nicole Way RN RN Josselin Rosa RN RN ea Wadley, Terrence, MD MD 4 Carlos Walker RN RN mg2 Corrections: (The following items were deleted from the chart) 10/22 00:19 10/21 22:08 Hospitalization Ordered by Anmol Salazar MD for Observation. Preliminary cg diagnosis is Other chest pain. Bed requested for Telemetry/MedSurg (observation). Status is Observation. Condition is Stable. Problem is new. Symptoms have improved. tw4 10/22 01:35 00:19 10/22/2019 22:08 Hospitalization Ordered by Anmol Salazar MD for Observation. mg2 Preliminary diagnosis is Other chest pain. Bed requested for Telemetry/MedSurg (observation). Status is Observation. Condition is Stable. Problem is new. Symptoms have improved. cg
[2019-10-22] MEDS ORDERED: ACETAMINOPHEN 500 MG TAB PO PRN (23:06)
[2019-10-23 04:32] VITALS: BMI 33.7
[2019-10-23 04:54] VITALS: O2SAT 97
[2019-10-23 06:55] LABS: Absolute Lymphocytes (CBC) 1.5 K/uL (0.7-4.9); Basophils % 0.7 % (0-1.3); Hematocrit 39.7 % (39.6-49.0); Lymphocytes % 15.3 % (15.3-44.8); MPV 10.3 fL (7.6-11.3); RBC Red Blood Cell Count 4.08 M/uL (4.33-5.43)
[2019-10-23 07:11] LABS: Potassium 3.7 mmol/L (3.5-5.1)
[2019-10-23] MEDS: INSULIN -REGULAR HUMAN 50 UNIT/0.5 ML ML SQ SCH ×2 (07:30→11:30)
[2019-10-23] MEDS ORDERED: D50W 25 GM/50 ML SYRINGE/VIAL IV PRN (07:44)
[2019-10-23] MEDS ORDERED: GLUCAGON 1 MG/VIAL IM PRN (07:44)
[2019-10-23] MEDS ORDERED: ASPIRIN EC 81 MG TAB PO SCH (09:00)
[2019-10-23] MEDS ORDERED: MIDODRINE HCL 5 MG TABLET PO ONE (11:00)
[2019-10-23 15:07] VITALS: BP 96/58; TEMP 96.9
--- NOTE | 2019-10-23 21:12 | SS ---
Date of Discharge: 10/23/2019 Chief Complaint: Fall and head injury. History Of Present Illness: This is an 79-year-old male patient with multiple medical problems inclu glory end-stage renal disease, on hemodialysis, uses a walker for ambulation inside and outside his ho use and says that his walker does not go inside his bathroom, so he takes his walker until he reaches his bathroom and then has a cane that he uses inside the bathroom. He had his dialysis yesterday, w ent home around 4 p.m. or so and his sister dropped him at his house and later on, sister had gone to her house and the patient went to the bathroom and as he was walking using his cane he says that he tripped over something and fell down. He tried to catch and break his fall, but he did end up fallin g down and hit his center of the forehead against something and was brought in later on to the emerge ncy room. No loss of consciousness. He had a small superficial cut in the center of the forehead an d Steri-Strips were applied in the emergency room. After workup, he was admitted to the hospital. T his morning when I saw him, he denies any specific complaints. He has ongoing chronic cough with jamey e coughing up mucus, which is chronic problem and has not changed lately at all. Denies any fever, c hills, nausea, vomiting. Has some chronic constipation that has not changed either. Allergies: TO IODINE, DEMEROL, AND SHELLFISH. Medications: List reviewed. 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 Cardiovascular: Has problem with low blood pressure from time to time. Musculoskeletal: Chronic wound on the right foot for which he has a wound VAC in place and he is see ing patient financial specialist for that. Musculoskeletal also significant for chronic arthritis pain. Respiratory: Cough and expectoration as mentioned above. All other systems reviewed and negative. Social History: Negative for smoking and alcohol use. Family History: Significant for asthma, hypertension, breast cancer. Past Surgical History: AICD placement in June 2014, tracheostomy placement many years ago. 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 Physical Examination: Vital Signs: Temperature 98.4, pulse 82, respiratory rate 16, blood pressure 90/54, oxygen saturatio n 96%, height 5 feet 11 inches, weight 242 pounds. General: Awake, alert, oriented, not in distress. HEENT: Head examination shows presence of multiple Steri-Strips in the center of the forehead where he had a small superficial cut, but there is no sign of any hematoma, bleeding, discharge. Conjuncti vae nonerythematous. Sclerae white. Mouth, no thrush or edema noted. Ears/Nose, no mass, lesion, d ischarge noted. Neck: Presence of tracheostomy tube. Lungs: Bilateral good equal air entry. Clear to auscultation. No rhonchi. No rales. Heart: Normal heart sounds, no murmur or gallop. Abdomen: Soft, bowel sounds normal. No guarding, rigidity, tenderness, mass, hepatosplenomegaly, dis tention, or bruit noted. Extremities: No leg edema. No calf tenderness. Foot exam, has wound VAC with dressing present and it was not removed as he sees specialist for that. Skin: No rash, ulcer, cellulitis. Lymphatics: No lymph node enlargement in neck, supraclavicular, infraclavicular region. Neuro: No focal neurological deficit. Chest: Unremarkable. External Genitalia: Deferred. Rectal: Deferred. Laboratory Data: Yesterday, white count 11.7, hemoglobin 12.6, platelets 122. This morning, white c ount 9.7, hemoglobin 12.3, platelets 122. Yesterday, sodium 135, potassium 3.8, chloride 99, bicarb 24, BUN 12, creatinine 4.48, glucose 237. Liver function tests unremarkable. Troponin 0.04 on the f irst set. Second and third set troponin 0.06. This morning, sodium 139, potassium 3.7, chloride 102 , bicarb 27, BUN 14, creatinine 4.81, glucose 138. CAT scan of the head and cervical spine, no acute intrathoracic or cervical spine changes. Cervical spine degenerative changes present, not different compared to prior study. Hospital Course: After I evaluated him, midodrine 5 mg p.o. x1 dose was ordered. Nurse was advised to recheck his blood pressure after 1 hour and after that, we will consider discharging later this af ternoon. Discharge Medications And Instructions: See copy of discharge order for more details. Final Diagnoses: 1.Head injury. 2.Hypotension. 3.End-stage renal disease, on hemodialysis. 4.Chronic obstructive pulmonary disease. 5.Chronic systolic congestive heart failure. 6.Anemia due to chronic kidney disease. 7.Type 2 diabetes mellitus. 8.Obstructive sleep apnea. 9.Coronary artery disease. 10.Osteoarthritis, multiple sites. 11.Gastroesophageal reflux disease. 12.Aortic stenosis. ODESSA/MODL Voice ID: [id number] Report ID: [id number]
== END 2019-10-23 14:50 | disposition home or self-care (01) ==
LOC: ER 20:12 → ERHOLD 23:15 → 4TH 10-23 01:22
PROVIDERS: ADMIT Internal Medicine; ATTEND Internal Medicine
DX: S09.90XA Unspecified injury of head, initial encounter (principal); W01.198A Fall on same level from slipping, tripping and stumbling with subsequent striking against other object, initial encounter; I95.9 Hypotension, unspecified; E11.22 Type 2 diabetes mellitus with diabetic chronic kidney disease; I13.2 Hypertensive heart and chronic kidney disease with heart failure and with stage 5 chronic kidney disease, or end stage renal disease; N18.6 End stage renal disease; D63.1 Anemia in chronic kidney disease; I50.22 Chronic systolic (congestive) heart failure; J44.9 Chronic obstructive pulmonary disease, unspecified; I25.10 Atherosclerotic heart disease of native coronary artery without angina pectoris; I35.0 Nonrheumatic aortic (valve) stenosis; M15.9 Polyosteoarthritis, unspecified; K21.9 Gastro-esophageal reflux disease without esophagitis; G47.33 Obstructive sleep apnea (adult) (pediatric); S01.81XA Laceration without foreign body of other part of head, initial encounter; Z11.59 Encounter for screening for other viral diseases; G31.9 Degenerative disease of nervous system, unspecified; M47.22 Other spondylosis with radiculopathy, cervical region; M10.9 Gout, unspecified; Z79.02 Long term (current) use of antithrombotics/antiplatelets; Z99.2 Dependence on renal dialysis; Z95.810 Presence of automatic (implantable) cardiac defibrillator
CPT/HCPCS: 93005; 85025 ×2; 80048 ×2; 36415; 82947 ×2; 80076; 84484 ×3; 83690; 70450; 72125; 99285; U0002; J7040 ×2; G0378 ×2; G0390

== ENCOUNTER 2019-10-30 11:29 | Observation (INO) | payer OTHER, MEDICARE ==
--- OUTSIDE RECORDS SUMMARY | 2019-10-30 11:34 | XMS REPORT | Clinical Summary ---
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 Overview: Added automatically from request for saud carrizalesy [id number] Chest pain 07/22/2017 Overview: Added automatically from request for saud carrizalesy [id number] Angina pectoris 07/21/2017 Coronary artery disease of wales artery of wales hea rt with stable 07/21/2017 angina pectoris [...] Dx); MD Susan Coronary artery disease involving wales coronary artery of wales heart without angina pectoris after 10/29/2018 Family History Relation Name Status Comments Father [...] Comments Blood Pressure 131/59 06/09/2019 6:00 PM COLLECTION TEAM LEAD Pulse 86 06/09/2019 7:30 PM COLLECTION TEAM LEAD Temperature 36.7 C (98 F) 06/09/2019 5:00 PM COLLECTION TEAM LEAD Respiratory Rate 22 06/09/2019 7:30 PM COLLECTION TEAM LEAD Oxygen Saturation 100% 06/09/2019 7:16 PM COLLECTION TEAM LEAD Inhaled Oxygen Concentration - - Weight 124 kg (274 lb 7.6 oz) 06/09/2019 6:00 AM COLLECTION TEAM LEAD Height 180.3 cm (5' 11") 05/28/2019 9:15 AM COLLECTION TEAM LEAD Body Mass Index 38.28 05/28/2019 9:15 AM COLLECTION TEAM LEAD Plan of Treatment Health Maintenance Due Date Last Done Comments DIABETIC RETINAL EYE EXAM 1940 DIABETIC FOOT EXAM 01/12/1950 URINE MICROALBUMIN 01/12/1949 SHINGLES VACCINES (#1) 01/12/1989 65+ PNEUMOCOCCAL VACCINE (1 of 2 - PCV13) 01/13/2004 INFLUENZA VACCINE 11/12/2019 Implants Implanted Type Area Application Security Specialist Device Shelf Model / Identifier Expiration Serial / Date Lot Device Vasclr Clsr Vasoactive Intstnl Peptd 8fr Angio- Seal - [id number] Cardiovascular N/A: 06/10/2017 [id number] / Implanted: 08/07/[address] [facility] (Quantity not on file) Implants N/A / [id number] Stent Bili Protege Everflex Slf-Xpndbl 120cm [id number] - [id number] Coronary Stents N/A: [employer] 05/03/2017 [id number] 12 0 / Implanted: 08/07/[address] [facility] (Quantity not on file) N/A / [id number] Procedures Procedure Name Priority Date/Time Associated Comments Diagnosis POC GLUCOSE Routine 06/09/2019 4:35 Results for this PM COLLECTION TEAM LEAD procedure are i n the results section. POC GLUCOSE Routine 06/09/2019 12:23 Results for this PM [employer]LECTION TEAM LEAD procedure are i n the results section. POC GLUCOSE Routine 06/09/2019 11:19 Results for this AM [employer]LECTION TEAM LEAD procedure are i n the results section. POC GLUCOSE Routine 06/09/2019 8:08 Results for this AM [employer]LECTION TEAM LEAD procedure are i n the results section. POC GLUCOSE Routine 06/09/2019 5:00 Results for this AM COLLECTION TEAM LEAD procedure are i n the results section. HC COMPLETE BLD COUNT Routine 06/09/2019 4:45 Re sults for this W/AUTO DIFF AM COLLECTION TEAM LEAD procedure are i n the results section. PARTIAL THROMBOPLASTIN Routine 06/09/2019 4:45 R esults for this TIME (PTT) AM COLLECTION TEAM LEAD procedure are i n the results section. POC GLUCOSE Routine 06/09/2019 2:07 Results for this AM [employer]LECTION TEAM LEAD procedure are i n the results section. POC GLUCOSE Routine 06/08/2019 8:30 Results for this PM [employer]LECTION TEAM LEAD procedure are i n the results section. POC GLUCOSE Routine 06/08/2019 5:13 Results for this PM [employer]LECTION TEAM LEAD procedure are i n the results section. HEMODIALYSIS Routine 06/08/2019 3:06 PM COLLECTION TEAM LEAD XR CHEST 1 VW PORTABLE Routine 06/08/2019 12:32 R esults for this PM COLLECTION TEAM LEAD procedure are i n the results section. POC GLUCOSE Routine 06/08/2019 12:07 Results for this PM COLLECTION TEAM LEAD procedure are i n the results section. POC GLUCOSE Routine 06/08/2019 7:38 Results for this AM COLLECTION TEAM LEAD procedure are i n the results section. ESTIMATED GFR Routine 06/08/2019 5:50 Results fo r this AM COLLECTION TEAM LEAD procedure are i n the results section. PHOSPHORUS LEVEL Routine 06/08/2019 5:50 Results for this AM COLLECTION TEAM LEAD procedure are i n the results section. MAGNESIUM LEVEL Routine 06/08/2019 5:50 Results for this AM COLLECTION TEAM LEAD procedure are i n the results section. BASIC METABOLIC PANEL Routine 06/08/2019 5:50 Re sults for this AM COLLECTION TEAM LEAD procedure are i n the results section. HC COMPLETE BLD COUNT Routine 06/08/2019 5:50 Re sults for this W/AUTO DIFF AM COLLECTION TEAM LEAD procedure are i n the results section. PARTIAL THROMBOPLASTIN Routine 06/08/2019 5:50 R esults for this TIME (PTT) AM COLLECTION TEAM LEAD procedure are i n the results section. POC GLUCOSE Routine 06/08/2019 4:26 Results for this AM COLLECTION TEAM LEAD procedure are i n the results section. POC GLUCOSE Routine 06/08/2019 12:18 Results for this AM COLLECTION TEAM LEAD procedure are i n the results section. POC GLUCOSE Routine 06/07/2019 8:16 Results for this PM [employer]LECTION TEAM LEAD procedure are i n the results section. POC GLUCOSE Routine 06/07/2019 4:22 Results for this PM COLLECTION TEAM LEAD procedure are i n the results section. POC GLUCOSE Routine 06/07/2019 3:50 Results for this PM COLLECTION TEAM LEAD procedure are i n the results section. POC GLUCOSE Routine 06/07/2019 11:39 Results for this AM COLLECTION TEAM LEAD procedure are i n the results section. ARTERIAL BLOOD GAS Routine 06/07/2019 11:34 Resul ts for this AM COLLECTION TEAM LEAD procedure are i n the results section. HEMODIALYSIS Routine 06/07/2019 10:44 AM COLLECTION TEAM LEAD POC GLUCOSE Routine 06/07/2019 7:42 Results for this AM COLLECTION TEAM LEAD procedure are i n the results section. US DUPLEX VENOUS LOWER Routine 06/07/2019 6:20 R esults for this EXTREMITY BILATERAL AM COLLECTION TEAM LEAD procedur e are in the results section. POC GLUCOSE Routine 06/07/2019 4:27 Results for this AM COLLECTION TEAM LEAD procedure are i n the results section. CBC HEMOGRAM Routine 06/07/2019 3:50 Results for this AM COLLECTION TEAM LEAD procedure are i n the results section. PARTIAL THROMBOPLASTIN Routine 06/07/2019 3:50 R esults for this TIME (PTT) AM COLLECTION TEAM LEAD procedure are i n the results section. POC GLUCOSE Routine 06/07/2019 12:19 Results for this AM COLLECTION TEAM LEAD procedure are i n the results section. POC GLUCOSE Routine 06/06/2019 8:19 Results for this PM [employer]LECTION TEAM LEAD procedure are i n the results section. POC GLUCOSE Routine 06/06/2019 6:13 Results for this PM COLLECTION TEAM LEAD procedure are i n the results section. OCCULT BLOOD, STOOL Routine 06/06/2019 5:50 Resu lts for this PM [employer]LECTION TEAM LEAD procedure are i n the results section. POC GLUCOSE Routine 06/06/2019 2:46 Results for this PM [employer]LECTION TEAM LEAD procedure are i n the results section. POC GLUCOSE Routine 06/06/2019 12:21 Results for this PM COLLECTION TEAM LEAD procedure are i n the results section. POC GLUCOSE Routine 06/06/2019 8:00 Results for this AM COLLECTION TEAM LEAD procedure are i n the results section. POC GLUCOSE Routine 06/06/2019 4:29 Results for this AM COLLECTION TEAM LEAD procedure are i n the results section. ESTIMATED GFR Routine 06/06/2019 3:35 Results fo r this AM COLLECTION TEAM LEAD procedure are i n the results section. PARTIAL THROMBOPLASTIN Routine 06/06/2019 3:35 R esults for this TIME (PTT) AM COLLECTION TEAM LEAD procedure are i n the results section. COMPREHENSIVE METABOLIC Routine 06/06/2019 3:35 Results for this PANEL AM COLLECTION TEAM LEAD procedure are i n the results section. PHOSPHORUS LEVEL Routine 06/06/2019 3:35 Results for this AM COLLECTION TEAM LEAD procedure are i n the results section. MAGNESIUM LEVEL Routine 06/06/2019 3:35 Results for this AM COLLECTION TEAM LEAD procedure are i n the results section. HC COMPLETE BLD COUNT Routine 06/06/2019 3:35 Re sults for this W/AUTO DIFF AM COLLECTION TEAM LEAD procedure are i n the results section. POC GLUCOSE Routine 06/06/2019 12:25 Results for this AM COLLECTION TEAM LEAD procedure are i n the results section. ARTERIAL BLOOD GAS STAT 06/05/2019 9:42 Resul ts for this PM COLLECTION TEAM LEAD procedure are i n the results section. POC GLUCOSE Routine 06/05/2019 8:16 Results for this PM [employer]LECTION TEAM LEAD procedure are i n the results section. POC GLUCOSE Routine 06/05/2019 5:20 Results for this PM COLLECTION TEAM LEAD procedure are i n the results section. POC GLUCOSE Routine 06/05/2019 4:15 Results for this PM COLLECTION TEAM LEAD procedure are i n the results section. POC GLUCOSE Routine 06/05/2019 12:10 Results for this PM [employer]LECTION TEAM LEAD procedure are i n the results section. XR CHEST 1 VW PORTABLE Routine 06/05/2019 8:59 R esults for this AM COLLECTION TEAM LEAD procedure are i n the results section. POC GLUCOSE Routine 06/05/2019 8:18 Results for this AM COLLECTION TEAM LEAD procedure are i n the results section. ESTIMATED GFR Routine 06/05/2019 4:20 Results fo r this AM COLLECTION TEAM LEAD procedure are i n the results section. PARTIAL THROMBOPLASTIN Routine 06/05/2019 4:20 R esults for this TIME (PTT) AM COLLECTION TEAM LEAD procedure are i n the results section. COMPREHENSIVE METABOLIC Routine 06/05/2019 4:20 Results for this PANEL AM COLLECTION TEAM LEAD procedure are i n the results section. PHOSPHORUS LEVEL Routine 06/05/2019 4:20 Results for this AM COLLECTION TEAM LEAD procedure are i n the results section. MAGNESIUM LEVEL Routine 06/05/2019 4:20 Results for this AM COLLECTION TEAM LEAD procedure are i n the results section. HC COMPLETE BLD COUNT Routine 06/05/2019 4:20 Re sults for this W/AUTO DIFF AM COLLECTION TEAM LEAD procedure are i n the results section. POC GLUCOSE Routine 06/05/2019 4:18 Results for this AM COLLECTION TEAM LEAD procedure are i n the results section. POC GLUCOSE Routine 06/05/2019 12:57 Results for this AM COLLECTION TEAM LEAD procedure are i n the results section. TRANSFUSE RED BLOOD Routine 06/04/2019 10:32 CELLS PM COLLECTION TEAM LEAD TRANSFUSE RED BLOOD Routine 06/04/2019 9:21 CELLS PM COLLECTION TEAM LEAD POC GLUCOSE Routine 06/04/2019 8:57 Results for this PM COLLECTION TEAM LEAD procedure are i n the results section. POC GLUCOSE Routine 06/04/2019 4:48 Results for this PM COLLECTION TEAM LEAD procedure are i n the results section. PARTIAL THROMBOPLASTIN Timed 06/04/2019 3:15 R esults for this TIME (PTT) PM COLLECTION TEAM LEAD procedure are i n the results section. POC GLUCOSE Routine 06/04/2019 12:13 Results for this PM COLLECTION TEAM LEAD procedure are i n the results section. XR CHEST 1 VW PORTABLE Routine 06/04/2019 10:45 R esults for this AM COLLECTION TEAM LEAD procedure are i n the results section. CBC HEMOGRAM Routine 06/04/2019 8:44 Results for this AM COLLECTION TEAM LEAD procedure are i n the results section. POC GLUCOSE Routine 06/04/2019 7:39 Results for this AM COLLECTION TEAM LEAD procedure are i n the results section. HEMODIALYSIS Routine 06/04/2019 7:32 AM COLLECTION TEAM LEAD SMEAR REVIEW Routine 06/04/2019 5:50 Results for this AM COLLECTION TEAM LEAD procedure are i n the results section. ESTIMATED GFR Routine 06/04/2019 5:50 Results fo r this AM COLLECTION TEAM LEAD procedure are i n the results section. PARTIAL THROMBOPLASTIN Routine 06/04/2019 5:50 R esults for this TIME (PTT) AM COLLECTION TEAM LEAD procedure are i n the results section. COMPREHENSIVE METABOLIC Routine 06/04/2019 5:50 Results for this PANEL AM COLLECTION TEAM LEAD procedure are i n the results section. PHOSPHORUS LEVEL Routine 06/04/2019 5:50 Results for this AM COLLECTION TEAM LEAD procedure are i n the results section. MAGNESIUM LEVEL Routine 06/04/2019 5:50 Results for this AM COLLECTION TEAM LEAD procedure are i n the results section. HC COMPLETE BLD COUNT Routine 06/04/2019 5:50 Re sults for this W/AUTO DIFF AM COLLECTION TEAM LEAD procedure are i n the results section. POC GLUCOSE Routine 06/04/2019 4:19 Results for this AM COLLECTION TEAM LEAD procedure are i n the results section. POC GLUCOSE Routine 06/04/2019 12:27 Results for this AM COLLECTION TEAM LEAD procedure are i n the results section. ANTI XA, UNFRACTIONATED Routine 06/03/2019 11:20 Results for this PM [employer]LECTION TEAM LEAD procedure are i n the results section. CBC HEMOGRAM Routine 06/03/2019 11:20 Results for this PM COLLECTION TEAM LEAD procedure are i n the results section. PARTIAL THROMBOPLASTIN Routine 06/03/2019 11:20 R esults for this TIME (PTT) PM COLLECTION TEAM LEAD procedure are i n the results section. PROTHROMBIN TIME WITH Routine 06/03/2019 11:20 Re sults for this INR PM COLLECTION TEAM LEAD procedure are i n the results section. POC GLUCOSE Routine 06/03/2019 8:05 Results for this PM COLLECTION TEAM LEAD procedure are i n the results section. CT ANGIOGRAM PE CHEST STAT 06/03/2019 7:51 Re sults for this PM COLLECTION TEAM LEAD procedure are i n the results section. POC GLUCOSE Routine 06/03/2019 4:44 Results for this PM COLLECTION TEAM LEAD procedure are i n the results section. ECG 12-LEAD STAT 06/03/2019 2:44 Results for this PM COLLECTION TEAM LEAD procedure are i n the results section. D-DIMER Routine 06/03/2019 2:43 Results for this PM COLLECTION TEAM LEAD procedure are i n the results section. XR CHEST 1 VW PORTABLE STAT 06/03/2019 2:38 R esults for this PM COLLECTION TEAM LEAD procedure are i n the results section. RESPIRATORY PATHOGEN Routine 06/03/2019 2:36 Res ults for this PANEL PM [employer]LECTION TEAM LEAD procedure are i n the results section. ARTERIAL BLOOD GAS STAT 06/03/2019 1:48 Resul ts for this PM COLLECTION TEAM LEAD procedure are i n the results section. POC GLUCOSE Routine 06/03/2019 12:18 Results for this PM COLLECTION TEAM LEAD procedure are i n the results section. XR CHEST 1 VW PORTABLE Timed 06/03/2019 10:58 R esults for this AM COLLECTION TEAM LEAD procedure are i n the results section. POC GLUCOSE Routine 06/03/2019 8:05 Results for this AM COLLECTION TEAM LEAD procedure are i n the results section. POC GLUCOSE Routine 06/03/2019 6:16 Results for this AM COLLECTION TEAM LEAD procedure are i n the results section. ESTIMATED GFR Routine 06/03/2019 3:30 Results fo r this AM COLLECTION TEAM LEAD procedure are i n the results section. BASIC METABOLIC PANEL Routine 06/03/2019 3:30 Re sults for this AM COLLECTION TEAM LEAD procedure are i n the results section. HC COMPLETE BLD COUNT Routine 06/03/2019 3:30 Re sults for this W/AUTO DIFF AM [employer]LECTION TEAM LEAD procedure are i n the results section. POC GLUCOSE Routine 06/03/2019 3:03 Results for this AM COLLECTION TEAM LEAD procedure are i n the results section. POC GLUCOSE Routine 06/02/2019 10:08 Results for this PM [employer]LECTION TEAM LEAD procedure are i n the results section. POC GLUCOSE Routine 06/02/2019 8:23 Results for this PM COLLECTION TEAM LEAD procedure are i n the results section. POC GLUCOSE Routine 06/02/2019 4:39 Results for this PM COLLECTION TEAM LEAD procedure are i n the results section. ARTERIAL BLOOD GAS STAT 06/02/2019 3:25 Resul ts for this PM COLLECTION TEAM LEAD procedure are i n the results section. XR CHEST 1 VW PORTABLE STAT 06/02/2019 3:20 R esults for this PM COLLECTION TEAM LEAD procedure are i n the results section. TRANSFUSE RED BLOOD Routine 06/02/2019 3:17 CELLS PM COLLECTION TEAM LEAD POC GLUCOSE Routine 06/02/2019 1:34 Results for this PM [employer]LECTION TEAM LEAD procedure are i n the results section. PREPARE RBC Routine 06/02/2019 8:34 Results for this AM COLLECTION TEAM LEAD procedure are i n the results section. PREPARE RBC Routine 06/02/2019 8:34 Results for this AM COLLECTION TEAM LEAD procedure are i n the results section. TYPE AND SCREEN Routine 06/02/2019 8:34 Results for this AM COLLECTION TEAM LEAD procedure are i n the results section. CBC HEMOGRAM Routine 06/02/2019 5:20 Results for this AM COLLECTION TEAM LEAD procedure are i n the results section. POC GLUCOSE Routine 06/01/2019 10:56 Results for this PM [employer]LECTION TEAM LEAD procedure are i n the results section. POC GLUCOSE Routine 06/01/2019 9:44 Results for this PM [employer]LECTION TEAM LEAD procedure are i n the results section. HEMODIALYSIS Routine 06/01/2019 5:08 PM COLLECTION TEAM LEAD POC GLUCOSE Routine 06/01/2019 5:04 Results for this PM COLLECTION TEAM LEAD procedure are i n the results section. CV PYP SCAN FOR CARDIAC Routine 06/01/2019 3:12 Results for this AMYLOIDOSIS PM COLLECTION TEAM LEAD procedure are i n the results section. POC GLUCOSE Routine 06/01/2019 12:04 Results for this PM COLLECTION TEAM LEAD procedure are i n the results section. ECG 12-LEAD STAT 06/01/2019 11:32 Results for this AM COLLECTION TEAM LEAD procedure are i n the results section. XR CHEST 1 VW PORTABLE STAT 06/01/2019 11:20 R esults for this AM COLLECTION TEAM LEAD procedure are i n the results section. POC GLUCOSE Routine 06/01/2019 7:50 Results for this AM COLLECTION TEAM LEAD procedure are i n the results section. ESTIMATED GFR Routine 06/01/2019 5:20 Results fo r this AM COLLECTION TEAM LEAD procedure are i n the results section. BASIC METABOLIC PANEL Routine 06/01/2019 5:20 Re sults for this AM COLLECTION TEAM LEAD procedure are i n the results section. KAPPA LAMBDA FREE LIGHT Routine 06/01/2019 5:20 Results for this CHAIN WITH RATIO AM COLLECTION TEAM LEAD procedure a re in the results section. POC GLUCOSE Routine 05/31/2019 9:16 Results for this PM [employer]LECTION TEAM LEAD procedure are i n the results section. ECG 12-LEAD STAT 05/31/2019 5:44 Results for this PM COLLECTION TEAM LEAD procedure are i n the results section. ESTIMATED GFR STAT 05/31/2019 5:33 Results fo r this PM COLLECTION TEAM LEAD procedure are i n the results section. MAGNESIUM LEVEL STAT 05/31/2019 5:33 Results for this PM COLLECTION TEAM LEAD procedure are i n the results section. BASIC METABOLIC PANEL STAT 05/31/2019 5:33 Re sults for this PM COLLECTION TEAM LEAD procedure are i n the results section. POC GLUCOSE Routine 05/31/2019 4:58 Results for this PM COLLECTION TEAM LEAD procedure are i n the results section. CT CARDIAC CALCIUM Routine 05/31/2019 3:35 Resul ts for this SCORE PM COLLECTION TEAM LEAD procedure are i n the results section. POC GLUCOSE Routine 05/31/2019 12:29 Results for this PM COLLECTION TEAM LEAD procedure are i n the results section. HEMODIALYSIS Routine 05/31/2019 9:45 AM COLLECTION TEAM LEAD POC GLUCOSE Routine 05/31/2019 7:59 Results for this AM COLLECTION TEAM LEAD procedure are i n the results section. CBC HEMOGRAM Routine 05/31/2019 4:10 Results for this AM COLLECTION TEAM LEAD procedure are i n the results section. T3, FREE Routine 05/31/2019 4:10 Results for this AM COLLECTION TEAM LEAD procedure are i n the results section. ESTIMATED GFR Routine 05/31/2019 12:00 Results fo r this AM COLLECTION TEAM LEAD procedure are i n the results section. PHOSPHORUS LEVEL Routine 05/31/2019 12:00 Results for this AM COLLECTION TEAM LEAD procedure are i n the results section. IONIZED CALCIUM Routine 05/31/2019 12:00 Results for this AM COLLECTION TEAM LEAD procedure are i n the results section. MAGNESIUM LEVEL Routine 05/31/2019 12:00 Results for this AM COLLECTION TEAM LEAD procedure are i n the results section. BASIC METABOLIC PANEL Routine 05/31/2019 12:00 Re sults for this AM COLLECTION TEAM LEAD procedure are i n the results section. POC GLUCOSE Routine 05/30/2019 8:56 Results for this PM [employer]LECTION TEAM LEAD procedure are i n the results section. TTE COMPLETE, WO Routine 05/30/2019 7:00 Results for this CONTRAST, W DOPPLER PM COLLECTION TEAM LEAD [place] [id number]) the results section. POC GLUCOSE Routine 05/30/2019 5:24 Results for this PM [employer]LECTION TEAM LEAD procedure are i n the results section. US DUPLEX ARTERIAL STAT 05/30/2019 5:00 Resul ts for this UPPER EXTREMITY PM COLLECTION TEAM LEAD procedure ar e in BILATERAL the results section. US ANKLE BRACHIAL INDEX Routine 05/30/2019 3:30 Results for this PM [employer]LECTION TEAM LEAD procedure are i n the results section. US DUPLEX ARTERIAL Routine 05/30/2019 3:30 Resul ts for this LOWER EXTREMITY PM COLLECTION TEAM LEAD procedure ar e in BILATERAL the results section. POC GLUCOSE Routine 05/30/2019 11:29 Results for this AM COLLECTION TEAM LEAD procedure are i n the results section. ARTERIAL BLOOD GAS Routine 05/30/2019 11:24 Resul ts for this AM COLLECTION TEAM LEAD procedure are i n the results section. LDH Routine 05/30/2019 11:05 Results for this AM COLLECTION TEAM LEAD procedure are i n the results section. POC GLUCOSE Routine 05/30/2019 7:30 Results for this AM COLLECTION TEAM LEAD procedure are i n the results section. XR CHEST 1 VW PORTABLE Routine 05/30/2019 4:10 R esults for this AM COLLECTION TEAM LEAD procedure are i n the results section. POC GLUCOSE Routine 05/30/2019 3:58 Results for this AM COLLECTION TEAM LEAD procedure are i n the results section. ESTIMATED GFR Routine 05/30/2019 12:50 Results fo r this AM COLLECTION TEAM LEAD procedure are i n the results section. PHOSPHORUS LEVEL Routine 05/30/2019 12:50 Results for this AM COLLECTION TEAM LEAD procedure are i n the results section. MAGNESIUM LEVEL Routine 05/30/2019 12:50 Results for this AM COLLECTION TEAM LEAD procedure are i n the results section. IONIZED CALCIUM Routine 05/30/2019 12:50 Results for this AM COLLECTION TEAM LEAD procedure are i n the results section. BASIC METABOLIC PANEL Routine 05/30/2019 12:50 Re sults for this AM [employer]LECTION TEAM LEAD procedure are i n the results section. T4, FREE Routine 05/30/2019 12:50 Results for this AM [employer]LECTION TEAM LEAD procedure are i n the results section. THYROID STIMULATING Routine 05/30/2019 12:50 Resu lts for this HORMONE AM [employer]LECTION TEAM LEAD procedure are i n the results section. URIC ACID LEVEL Routine 05/30/2019 12:50 Results for this AM [employer]LECTION TEAM LEAD procedure are i n the results section. MANUAL DIFFERENTIAL Routine 05/30/2019 12:20 Resu lts for this AM [employer]LECTION TEAM LEAD procedure are i n the results section. CBC WITH PLATELET AND Routine 05/30/2019 12:20 Re sults for this DIFFERENTIAL AM [employer]LECTION TEAM LEAD procedure are i n the results section. POC GLUCOSE Routine 05/29/2019 11:45 Results for this PM [employer]LECTION TEAM LEAD procedure are i n the results section. POC GLUCOSE Routine 05/29/2019 7:47 Results for this PM COLLECTION TEAM LEAD procedure are i n the results section. POC GLUCOSE Routine 05/29/2019 4:16 Results for this PM [employer]LECTION TEAM LEAD procedure are i n the results section. POC GLUCOSE Routine 05/29/2019 11:23 Results for this AM [employer]LECTION TEAM LEAD procedure are i n the results section. HEPARIN PF4 ANTIBODY Routine 05/29/2019 9:41 Res ults for this (IGG) AM [employer]LECTION TEAM LEAD procedure are i n the results section. POC GLUCOSE Routine 05/29/2019 7:36 Results for this AM [employer]LECTION TEAM LEAD procedure are i n the results section. XR CHEST 1 VW PORTABLE Routine 05/29/2019 4:02 R esults for this AM [employer]LECTION TEAM LEAD procedure are i n the results section. POC GLUCOSE Routine 05/29/2019 4:00 Results for this AM [employer]LECTION TEAM LEAD procedure are i n the results section. ECG 12-LEAD Routine 05/29/2019 3:42 Results for this AM [employer]LECTION TEAM LEAD procedure are i n the results section. HC COMPLETE BLD COUNT Routine 05/29/2019 1:00 Re sults for this W/AUTO DIFF AM [employer]LECTION TEAM LEAD procedure are i n the results section. ESTIMATED GFR Routine 05/29/2019 12:33 Results fo r this AM [employer]LECTION TEAM LEAD procedure are i n the results section. PHOSPHORUS LEVEL Routine 05/29/2019 12:33 Results for this AM COLLECTION TEAM LEAD procedure are i n the results section. MAGNESIUM LEVEL Routine 05/29/2019 12:33 Results for this AM COLLECTION TEAM LEAD procedure are i n the results section. IONIZED CALCIUM Routine 05/29/2019 12:33 Results for this AM COLLECTION TEAM LEAD procedure are i n the results section. BASIC METABOLIC PANEL Routine 05/29/2019 12:33 Re sults for this AM COLLECTION TEAM LEAD procedure are i n the results section. HC COMPLETE BLD COUNT Routine 05/29/2019 12:00 Re sults for this W/AUTO DIFF AM COLLECTION TEAM LEAD procedure are i n the results section. POC GLUCOSE Routine 05/28/2019 11:52 Results for this PM COLLECTION TEAM LEAD procedure are i n the results section. POC GLUCOSE Routine 05/28/2019 8:25 Results for this PM COLLECTION TEAM LEAD procedure are i n the results section. POC GLUCOSE Routine 05/28/2019 4:33 Results for this PM COLLECTION TEAM LEAD procedure are i n the results section. HEPATITIS B SURFACE Routine 05/28/2019 1:50 Resu lts for this ANTIGEN PM COLLECTION TEAM LEAD procedure are i n the results section. POC GLUCOSE Routine 05/28/2019 11:30 Results for this AM COLLECTION TEAM LEAD procedure are i n the results section. HEMODIALYSIS Routine 05/28/2019 11:17 AM COLLECTION TEAM LEAD HC COMPLETE BLD COUNT Routine 05/28/2019 10:05 Re sults for this W/AUTO DIFF AM COLLECTION TEAM LEAD procedure are i n the results section. XR CHEST 1 VW PORTABLE Routine 05/28/2019 10:02 R esults for this AM COLLECTION TEAM LEAD procedure are i n the results section. CONSULT CARDIAC REHAB Routine 05/28/2019 9:42 PHASE 1 AM COLLECTION TEAM LEAD ECG 12-LEAD STAT 05/28/2019 9:42 Results for this AM COLLECTION TEAM LEAD procedure are i n the results section. HEMOGLOBIN A1C Routine 05/28/2019 9:41 Results f or this AM COLLECTION TEAM LEAD procedure are i n the results section. ESTIMATED GFR Routine 05/28/2019 9:41 Results fo r this AM COLLECTION TEAM LEAD procedure are i n the results section. TYPE AND SCREEN Routine 05/28/2019 9:41 Results for this AM COLLECTION TEAM LEAD procedure are i n the results section. PARTIAL THROMBOPLASTIN Routine 05/28/2019 9:41 R esults for this TIME (PTT) AM COLLECTION TEAM LEAD procedure are i n the results section. PROTHROMBIN TIME WITH Routine 05/28/2019 9:41 Re sults for this INR AM COLLECTION TEAM LEAD procedure are i n the results section. IONIZED CALCIUM Routine 05/28/2019 9:41 Results for this AM COLLECTION TEAM LEAD procedure are i n the results section. PHOSPHORUS LEVEL Routine 05/28/2019 9:41 Results for this AM COLLECTION TEAM LEAD procedure are i n the results section. MAGNESIUM LEVEL Routine 05/28/2019 9:41 Results for this AM COLLECTION TEAM LEAD procedure are i n the results section. BASIC METABOLIC PANEL Routine 05/28/2019 9:41 Re sults for this AM COLLECTION TEAM LEAD procedure are i n the results section. POC GLUCOSE Routine 05/28/2019 9:39 Results for this AM COLLECTION TEAM LEAD procedure are i n the results section. after 10/29/2018 Results POC glucose (06/09/2019 4:35 PM COLLECTION TEAM LEAD)Only the most recent of74 resultswithin the time period is included. Pathologist Sig nature POC glucose 238 (H) 65 - 99 mg/dL [facility] Comment: HOSPITAL Nutrition Manager Name: Veena Ortiz Device ID: [id number] Chartable: [facility] Notified RN Specimen Performing Organization Address City/State/Zipcode Phone Number [facility] DEPARTMENT OF PATHOLOGY AND [address] [place] [address] [address] [address] Partial thromboplastin time, activated (06/09/2019 4:45 AM COLLECTION TEAM LEAD)Only the most recent of9 resultswithin the time period is included. PTT 52.8 (H) 23.0 - 36.0 [facility] Comment: sec HOSPITAL PTT therapeutic range for unfractionated heparin is 61.0-112.0 seconds which corresponds to Anti-Xa 0.3-0.7 U/ml. Specimen Blood Performing Organization Address [facility] Phone Number [facility] DEPARTMENT OF PATHOLOGY AND [address] [place], [place] [address] GENOMIC MEDICINE [facility] [address] [place] [address] CBC with platelet and differential (06/09/2019 4:45 AM COLLECTION TEAM LEAD)Only the most recent of10 resultswithin the time period is included. WBC 11.21 (H) 4.50 - 11.00 [facility] k/uL HOSPITAL RBC 3.04 (L) 4.40 - 6.00 [facility] m/[facility] HGB 8.5 (L) 14.0 - 18.0 [facility] g/dL [facility] HCT 29.7 (L) 41.0 - 51.0 % [facility] MCV 97.7 82.0 - 100.0 [facility] MCH 28.0 27.0 - 34.0 pg [facility] MCHC 28.6 (L) 31.0 - 37.0 [facility] RDW - SD 63.7 (H) 37.0 - 55.0 fL [facility] MPV 12.5 8.8 - 13.2 fL [facility] Platelet count 127 (L) 150 - 400 k/uL [facility] Nucleated RBC 0.00 /100 WBC [facility] Neutrophils 78.6 (H) 39.0 - 69.0 % [facility] Lymphocytes 8.8 (L) 25.0 - 45.0 % [facility] Monocytes 10.9 (H) 0.0 - 10.0 % [facility] Eosinophils 1.1 0.0 - 5.0 % [facility] Basophils 0.2 0.0 - 1.0 % [facility] Immature granulocytes 0.4Comment: 0.0 - 1.0 % [facility] "Immature HOSPITAL granulocytes" (promyelocytes , myelocytes, metamyelocytes ) Specimen Blood Performing Organization Address City/[facility] Phone Number [facility] DEPARTMENT OF PATHOLOGY AND [address] [place], [place] [address] GENOMIC MEDICINE [facility] [address] [place] [address] XR Chest 1 Vw Portable (06/08/2019 12:32 PM COLLECTION TEAM LEAD)Only the most recent of10 resultswithin the time [...] Bones: Regional osseous structures appea r stable. [id number] Procedure Note [facility], Radiology Results Incoming - 06/08/2019 12:48 PM COLLECTION TEAM LEAD EXAMINATION: XR CHEST 1 VW PORTABLE CLINICAL [...] Bones: Regional osseous structures appea r stable. [id number] Performing Organization Address City/State/Zipcode Phone Number [facility] [address] [place] [address] Estimated GFR (06/08/2019 5:50 AM COLLECTION TEAM LEAD)Only the most recent of11 resultswithin the time period is included. Estimated GFR 14 (A) mL/min/1.73 [facility] Comment: m2 HOSPITAL Catergory Units Interpretation G1 [...] 2014. Specimen Plasma specimen Performing Organization Address [facility] Phone Number [facility] DEPARTMENT OF PATHOLOGY AND [address] [place] [address] Phosphorus level (06/08/2019 5:50 AM COLLECTION TEAM LEAD)Only the most recent of8 resultswithin the time period is included. Pathologist Sig [facility] Phosphorus 2.5 2.4 - 4.5 mg/dL [facility] L Specimen Plasma specimen Performing Organization Address [facility] Phone Number [facility] DEPARTMENT OF PATHOLOGY AND [address] [place] [address] [address] Magnesium level (06/08/2019 5:50 AM COLLECTION TEAM LEAD)Only the most recent of9 resultswithin the time period is included. Pathologist Sig [facility] Magnesium 2.3 1.6 - 2.4 mg/dL [facility] Specimen Plasma specimen Performing Organization Address [facility] Phone Number [facility] DEPARTMENT OF PATHOLOGY AND [address] [place] [address] [phone] [address] Basic metabolic panel (06/08/2019 5:50 AM COLLECTION TEAM LEAD)Only the most recent of8 results within the time period is included. Pathologist Sig nature Sodium 135 135 - 148 mEq/L [facility] Potassium 4.2 3.5 - 5.0 mEq/L [facility] Chloride 97 (L) 98 - 112 mEq/L [facility] CO2 26 24 - 31 mEq/L [facility] Anion gap 12@ANIO 7 - 15 mEq/L [facility] BUN 31 (H) 8 - 23 mg/dL [facility] Creatinine 4.21 (H) 0.70 - 1.20 mg/dL [facility] Glucose 117 (H) 65 - 99 mg/dL [facility] Calcium 9.0 8.8 - 10.2 mg/dL [facility] Specimen Plasma specimen Performing Organization Address City/[facility]ode Phone Number [facility] DEPARTMENT OF PATHOLOGY AND [address] [place] [address] Arterial blood gas (06/07/2019 11:34 AM COLLECTION TEAM LEAD)Only the most recent of5 results within the time period is included. [facility] Sig nature pH, arterial 7.38 7.35 - 7.45 [facility] pCO2, arterial 50 (H) 35 - 45 mmHg [facility] pO2, arterial 76 (L) 80 - 90 mmHg [facility] Bicarbonate, 28.8 (H) 21.0 - 28.0 [facility] mmol/L [facility] Base excess, 4 (H) -2 - 2 mEq/L [facility] O2 saturation, 95 95 - 100 % [facility] Specimen Blood Performing Organization Address City/[facility] Cent[facility]ode Phone Number [facility] DEPARTMENT OF PATHOLOGY AND [address] [place] [address] Us duplex venous lower extremity (06/07/2019 6:20 AM COLLECTION TEAM LEAD) Specimen Narrative Performed At [facility] Vascular U ltrasound Laboratory Lower Extr emity Venous Report [address] [place] [address] Pat.Name: DILLON PEREZ Pat.ID: [id number] .Date: 06/07/2019 Refer.MD: KIMBERLY KHANNA MD Exam Time: 4:51:00 AM Study Type:L E Venous Age: 1001/16/1940,79Y Sex: MALE Sonogrphr: Jamal Lira, BA, BS, RDMS, RVT Pat. Stat.:Inpatient Room: [address] Tape V ol: ZENAIDA, CPT - 4: 79960 Echo Rhea nt ID:[id number] Order ID: [id number] Reason for Study:Evaluate for DVT. Patie nt [...] Radiology Results In - 2019 8:11 AM [facility] Vascular Ultrasound Laboratory Lower Extremity Veno us Report [address] [facility], [facility] [address] , [place] [address] Pat.Name: DILLON PEREZ Pat.I D: [id number] .Date: 06/07/2019 Refer .MD: KIMBERLY KHANNA MD Exam Time: 4:51:00 AM Study Type:LE Venous Age: 1001/16/1940,79Y Sex: MALE Sonogrphr: Jamal Lira, BA, BS, RDMS, RVT Pat. Stat.:Inpatient Room: [address] Vol: ZENAIDA, CPT - 4: 43708 Echo Event ID:[id number] Order ID: [id number] Reason for Study:Evaluate for DVT. Cata nt [...] Performing Organization Address City/State/Zipcode Phone Number [facility] [address] [place] [address] CBC hemogram (06/07/2019 3:50 AM COLLECTION TEAM LEAD)Only the most recent of5 resultswithin the time period is included. [facility] Sig nature WBC 16.21 (H) 4.50 - 11.00 k/uL [facility] RBC 3.35 (L) 4.40 - 6.00 m/uL [facility] HGB 9.6 (L) 14.0 - 18.0 g/dL [facility] HCT 32.4 (L) 41.0 - 51.0 % [facility] MCV 96.7 82.0 - 100.0 fL [facility] MCH 28.7 27.0 - 34.0 pg [facility] MCHC 29.6 (L) 31.0 - 37.0 g/dL [facility] RDW - SD 64.8 (H) 37.0 - 55.0 fL [facility] MPV 12.3 8.8 - 13.2 [facility] Platelet count 132 (L) 150 - 400 k/uL [facility] Nucleated RBC 0.00 /100 WBC [facility] Specimen Blood Performing Organization Address City/[facility]ode Phone Number [facility] DEPARTMENT OF PATHOLOGY AND [address] [place] [address] [address] [address] Occult blood, stool (06/06/2019 5:50 PM COLLECTION TEAM LEAD) [facility] Occult blood, Negative for occult blood. [facility] stool Comment: HOSPITAL Specimen Information Specimen Source: Stool Specimen Site: Nonpreserved Specimen Stool - Nonpreserved Performing Organization Address [facility] Phone Number [facility] DEPARTMENT OF PATHOLOGY AND [address] [place] [address] [place] [address] Comprehensive metabolic panel (06/06/2019 3:35 AM COLLECTION TEAM LEAD)Only the most recent of3 resultswithin the time period is included. [facility] Sodium 136 135 - 148 [facility] mEq/L [facility] Potassium 4.7 3.5 - 5.0 [facility] mEq/L [facility] Chloride 96 (L) 98 - 112 mEq/L [facility] CO2 25 24 - 31 mEq/L [facility] Anion gap 15@ANIO 7 - 15 mEq/L [facility] BUN 38 (H) 8 - 23 mg/dL [facility] Creatinine 4.73 (H) 0.70 - 1.20 [facility] mg/dL [facility]OSPITAL Glucose 77 65 - 99 mg/dL [facility] Calcium 8.7 (L) 8.8 - 10.2 [facility] mg/dL [facility] Protein 6.4 6.3 - 8.3 g/dL [facility] Comment: HOSPITAL Xcxnmbi7900.6-7.0 g/dL 1 ihaz2079.4-7.6 g/dL 7 months-4yzzq527.1-7.3 g/dL 1-2 .6-7.5 g/dL >3 iqngn553.0-8.0 g/dL 18-7806840.3-8.3 g/dL Albumin 2.4 (L) 3.5 - 5.0 g/dL [facility] A/G ratio 0.6 (L) 0.7 - 3.8 [facility] Alkaline phosphatase 77 40 - 129 U/L [facility] AST 10 10 - 50 U/L [facility] ALT 15 5 - 50 U/L [facility] Total bilirubin 0.5 0.0 - 1.2 [facility] mg/dL [facility]OSPITAL Specimen Plasma specimen Performing Organization Address City/[facility]/Zipcode Phone Number [facility] DEPARTMENT OF PATHOLOGY AND [address] [place] [address] Transfuse RBC (06/04/2019 10:32 PM COLLECTION TEAM LEAD)Only the most recent of3 resultswithin the time period is included.Smear review (06/04/2019 5:50 AM COLLECTION TEAM LEAD) Pathologist Sig nature Platelet slide review Trell slt decr [facility] Anisocytosis Moderate [facility] Polychromasia Moderate [facility] Ovalocytes Moderate [facility] Specimen Performing Organization Address [facility] Phone Number [facility] DEPARTMENT OF PATHOLOGY AND [address] [place] [address] [phone] [address] Prothrombin time with INR (06/03/2019 11:20 PM COLLECTION TEAM LEAD)Only the most recent of2 resultswithin the time period is included. Prothrombin time 14.8 (H) 11.5 - 14.5 [facility] INR 1.2 [facility] Comment: [facility] International Normalized Ratio (INR) is a therapeu [facility] monitoring tool for patients who are stable on oral anticoagulant therapy. An INR of 2.0-3.0 is suggested for deep vein thrombosis/pulmonary embolism. Specimen Blood Performing Organization Address City/[facility] Phone Number [facility] DEPARTMENT OF PATHOLOGY AND [address] [place] [address] [place] [address] Anti Xa, unfractionated (06/03/2019 11:20 PM COLLECTION TEAM LEAD) Anti Xa, <0.10 (L)Comment: 0.30 - 0.70 [facility] unfractionated Therapeutic Range: U/mL [facility] 0.30 - 0.70 U/mL HOSPITAL Specimen Blood Performing Organization Address City/State/Zipcode Phone Number [facility] DEPARTMENT OF PATHOLOGY AND [address] [place], [place] [address] GENOMIC MEDICINE [facility] [address] [place] [address] CT Angiogram Pe Chest (06/03/2019 7:51 PM COLLECTION TEAM LEAD) Specimen Narrative Performed At EXAMINATION: RADIANT CT [...] at 8:00 PM, and she expressed understanding [facility]-[id number] Procedure Note Interface, Radiology Results Incoming - 06/03/2019 8:04 PM COLLECTION TEAM LEAD EXAMINATION: CT ANGIOGRAM PE CHEST CLINICAL HISTORY:79 [...] at 8:00 PM, and she expressed understanding [facility]-[id number] Performing Organization Address City/[facility] Phone Number [facility] [address] [place] [address] ECG 12 lead (06/03/2019 2:44 PM COLLECTION TEAM LEAD)Only the most recent of5 resultswithin the time period is included. Pathologist Sig nature Ventricular rate 115 [facility] MUSE Atrial rate 115 [facility] M[facility] ND interval 114 [facility] M[facility] QRSD interval 154 [...] is no t available. Performing Organization Address [facility] Phone Number [employer] [address] [place] [address] D-dimer (06/03/2019 2:43 PM COLLECTION TEAM LEAD) [facility] D-dimer 1.73 (H) 0.00 - 0.40 [facility] Comment: ug/mL [facility] Units are ug/ml [...] Blood Performing Organization Address City/State/Zipcode Phone Number [facility] DEPARTMENT OF PATHOLOGY AND [address] [place], [place] [address] [address] [address] Respiratory pathogen panel (06/03/2019 2:36 PM COLLECTION TEAM LEAD) [facility] Respiratory Positive for Influenza A/H1-2009 virus [facility] pathogen panel [facility]OROASTRIAN Negative for all other pathogens tested: HOSPITAL [...] Specimen Nares - Right Performing Organization Address [facility]/Zipcode Phone Number [facility] DEPARTMENT OF PATHOLOGY AND [address] [place] [address] [phone] [address] Prepare RBC, 2 Units (06/02/2019 8:34 AM COLLECTION TEAM LEAD)Only the most recent of2 results within the time period is included. Product name Apheresis Red Cell SHARON AS3 #1 [facility] Unit number [id number] [facility] Product code [id number] [facility] Dispense status Transfused [facility] Blood expiration date [id number] [facility] Blood type [facility] 5100 [facility] Blood type O POSITIVE [facility] Compatibility Compatible [facility] Product name Apheresis Red Cell SHARON AS3 #2 [facility] Unit number [id number] [facility] Product code [id number] [facility] Dispense status Transfused [facility] Blood expiration date [facility] Blood type code 5100 [facility] Blood type O POSITIVE [facility] Compatibility Compatible [facility] Specimen Blood Performing Organization Address [facility] Phone Number [facility] DEPARTMENT OF PATHOLOGY AND [address] [place], [place] [address] [address] [address] Type and screen (06/02/2019 8:34 AM COLLECTION TEAM LEAD)Only the most recent of2 resultswithin the time period is included. Pathologist Sig nature ABO grouping O [facility] Rh type POS [facility] Antibody screen (gel) NEG [facility] Specimen Blood Performing Organization Address City/[facility]/Zipcode Phone Number [facility] DEPARTMENT OF PATHOLOGY AND [address] [place] [address] [phone] [address] Cv pyp scan for cardiac amyloidosis (06/01/2019 3:12 PM COLLECTION TEAM LEAD) Specimen Narrative Performed At This result has an attachment that is no t available. [facility] Nuclear Cardiology and Card iac CT [address] [facility], [facility] [address], [place] [address] PYP Cardiac Amyloidosis Imagin g Report Pat.Name: DILLON PEREZ at.ID: [id number] .Date: 06/01/2019 Refer.MD: ASCENCION QUINTERO MD Exam Time: 11:24:00 AM Study Type:PYP Cardiac Amyloidosis Imaging Height: 71in Weight: 266lb BSA: 2.38 m2 Age: 1001/16/1940,79Y Sex: MALE Nuclear Tech:Jenni Mendiola [facility], [facility](N) Pat. Stat.:Inpatient Nuclear Event ID:[id number] Order ID: [id number] Reason for Study:R/O TTR amyloid History / [...] Radiology Results In - 2019 3:40 PM [facility] Nuclear Cardiology and Cardiac CT [address] [place] [address] PYP Cardiac Amyloidosis Imaging Report Pat.Name: DILLON PEREZ Pat.I D: [id number] .Date: 06/01/2019 Refer .MD: ASCENCION QUINTERO MD Exam Time: 11:24:00 AM Study Type:PYP Cardiac Amyloidosis Imagi ng Height: 71in Weigh t: 266lb BSA: 2.38 m2 Age: 1001/16/1940,79Y Sex: MALE Nuclear Tech:ALLIE Tavares, ARRT(N) Pat. Stat.:Inpatient Nucle ar Event ID:[id number] Order ID: [id number] Reason for Study:R/O TTR amyloid History / [...] PM Mohan Saucedo MD Performing Organization Address [facility] Cent[facility]ode Phone Number [facility] [address] [place] [address] [place] lambda free light chain with ratio (06/01/2019 5:20 AM COLLECTION TEAM LEAD) Pathologist [facility] [place] nature [place] light chain 289.08 (H) 3.30 - 19.40 [facility] mg/L [facility] Lambda light chain 143.97 (H) 5.70 - 26.30 [facility] mg/L [facility] [place] lambda ratio 2.01 (H) 0.26 - 1.65 [facility] Specimen Plasma specimen Performing Organization Address [facility] Phone Number [facility] DEPARTMENT OF PATHOLOGY AND [address] [place] [phone] GEN[address] [address] [address] cardiac calcium score (05/31/2019 3:35 PM COLLECTION TEAM LEAD) Specimen Narrative Performed At [facility] Cardi ology and Cardiac CT [address] [place] [address], [place] [address], [place] [id number] CT Calc ium Scoring Report Pat.Name: DILLON PEREZ Pat.ID: [id number] .Date: 05/31/2019 Refer.MD: ASCENCION QUINTERO MD Exam Time: 3:04:00 PM Study Type:C T Calcium Scoring Height: 71in Weight: 266lb BSA: 2.38 m2 Ag e: 1940,79Y Sex: MALE HR: 92 bpm Nuclear Tech:Ayo Aviles, RT(NM)(CT), RECREATION PROGRAM SPECIALIST/Abdiel Billings [facility] Pat. Stat.:Inpatient Nuclear Event ID:[id number] Order ID: [id number] Reason for Study:Eval Aortic Valve Procedures: CT [...] Radiology Results In - 2019 7:15 PM [facility] Nuclear Cardiology and Cardiac CT [address] [place] [address] CT Calcium Scoring Report Pat.Name: DILLON PEREZ Pat.I D: [id number] .Date: 05/31/2019 Refer .MD: ASCENCION QUINTERO MD Exam Time: 3:04:00 PM Study Type:CT Calcium Scoring Height: 71in Weigh t: 266lb BSA: 2.38 m2 Age: 1001/16/1940,79Y Sex: MALE HR: 92 bpm Nuclear Tech:Ayo Aviles RT(NM)(CT), [facility]/Abdiel Billings [facility] Pat. Stat.:Inpatient Nuclear Event ID:[id number] Order ID: [id number] Reason for Study:Eval Aortic Valve Procedures: CT [...] PM Beny Weiss MD Performing Organization Address City/[facility]/Zipcode Phone Number [facility] [address] [place] [address] T3, free (05/31/2019 4:10 AM COLLECTION TEAM LEAD) Pathologist Sig nature T3, free 1.1 (L) 2.4 - 4.2 pg/mL [facility] Comment: REFERENCE INTERVAL: Triiodothyronine, Free (Free T3) Access complete set of age- and/or gender-specific ref erence intervals for this test in the [facility] Test Di rectory ([employer]). Performed by [facility], [address] [place] [id number] [email or web address], Jared Foster MD, Lab. Director Specimen Serum Performing Organization Address [facility] Cent[facility]ode Phone Number [facility] [address] [place] [address] [facility] [address] [place] [address] Ionized calcium (05/31/2019 12:00 AM COLLECTION TEAM LEAD)Only the most recent of4 resultswithin the time period is included. Pathologist Sig nature pH 7.38 [facility] Ionized calcium 1.06 (L) 1.11 - 1.32 [facility] mmol/L [facility]OS[facility] Specimen Plasma specimen Performing Organization Address [facility] [facility] Phone Number [facility] DEPARTMENT OF PATHOLOGY AND [address] [place] [address] [phone] GENOMIC MEDICINE [address] [address] Echocardiogram complete w contrast and 3D if needed (05/30/2019 7:00 PM COLLECTION TEAM LEAD) Specimen Narrative Performed At [facility] Echo cardiography Report [id number] [facility], [facility] 9, [place] [address] Pat.Name: DILLON PEREZ Pat.ID: [id number] .Date: 05/30/2019 Refer.MD: ASCENCION QUINTERO MD Exam Time: 6:00:00 PM Study Type:R outine Echo Height: 71in Weight: 305lb BSA: 2.53 m2 Ag e: 1940,79Y Sex: MALE BP: 138/70 HR: 72 bpm Sonogr phr: EZRA Stock Pat. Stat.:Inpatient Room: [address] Study Status:Final Echo Event ID:[id number] Order ID: [id number] Reason for Study:Aortic stenosis evaluat ion. History [...] of 10 mmHg. MEASUREMENTS: 2D Parasternal Long [place] Ao An 2.5 cm LVPWd 1.2 cm [...] Radiology Results In - 2019 1:49 PM COLLECTION TEAM LEAD Echocardiography Report [id number] [facility], [facility] 9 , [place] [address] Pat.Name: DILLON PEREZ Pat.I D: [id number] .Date: 05/30/2019 Refer .MD: ASCENCION QUINTERO MD Exam Time: 6:00:00 PM Study Type:Routine Echo Height: 71in Weigh t: 305lb BSA: 2.53 m2 Age: 1001/16/1940,79Y Sex: MALE BP: 138/70 HR: 72 bpm Sonog rphr: EZRA Stock Pat. Stat.:Inpatient Room: [address] Study Status:Final Echo Event ID:[id number] Order ID: [id number] Reason for Study:Aortic stenosis evaluat ion. History [...] of 10 mmHg. MEASUREMENTS: 2D Parasternal Long [place] Ao An 2.5 cm LVPW d 1.2 [...] M.D. Performing Organization Address City/State/Zipcode Phone Number [facility] [address] [place] [phone] duplex arterial upper extremity (05/30/2019 5:00 PM COLLECTION TEAM LEAD) Specimen Narrative Performed At [facility] Vascular U ltrasound Laboratory Upper Extr emity Arterial Report [address] [facility], [address], [place] [address] Pat.Name: DILLON PEREZ Pat.ID: [id number] .Date: 05/30/2019 Refer.MD: ASCENCION QUINTERO MD Exam Time: 3:21:00 PM Study Type:U E Arterial Age: 1001/16/1940,79Y Sex: MALE Sonogrphr: Priti Recinos RVT Pat. Stat[facility] [address] ol: RF, CPT - 4: [address]002 Echo Rhea nt ID:[id number] Order ID: [id number] Reason for Study:Bilateral arm pain and swelling. [...] Radiology Results In - 2019 5:50 PM [facility] Vascular Ultrasound Laboratory Upper Extremity Aarti rial Report [address] [address] Pat.Name: LANIDILLON Pat.I D: [id number] .Date: 05/30/2019 Refer .MD: ASCENCION QUINTERO MD Exam Time: 3:21:00 PM Study Type:UE Arterial Age: 1001/16/1940,79Y Sex: MALE Sonogrphr: PAUL Herrera. Stat.:Inpatient Room: EM5243-D Tape Vol: RF, CPT - 4: 14128 Echo Event ID:[id number] Order ID: [id number] Reason for Study:Bilateral arm pain and swelling. [...] Performing Organization Address City/State/Zipcode Phone Number [facility] [address] [phone] Us ankle brachial index (05/30/2019 3:30 PM COLLECTION TEAM LEAD) Specimen Narrative Performed At [facility] Vascular D iagnostic Laboratory Physiologi c Arterial Leg Report [address] [place] [address] Pat.Name: DILLON PEREZ Pat.ID: [id number] .Date: 05/30/2019 Refer.MD: ASCENCION QUINTERO MD Exam Time: 2:32:00 PM Study Type:P hysiologic Leg Age: 1001/16/1940,79Y Sex: MALE Sonogrphr: Priti Recinos RVT Pat. Stat.:Inpatie nt Room: [address] l: RF, CPT - 4: 65169 Echo Rhea nt ID:[id number] Order ID: [id number] Reason for Study:Bilateral decreased ped al pulses. 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 Procedures: Ankle/brachial pressures, Di git pressures Race: B SUMMARY: ANKLE/BRACHIAL INDEX: RIGHT LEFT Brachial Artery [id number] mmHg AV-F istula DP 0 mmHg 0 [...] Radiology Results In - 2019 9:50 PM COLLECTION TEAM LEAD Vascular Diagnostic Laboratory Physiologic Arterial Leg Report [address] [address] , [place] [address] Pat.Name: DILLON PEREZ Pat.I D: [id number] .Date: 05/30/2019 Refer .MD: ASCENCION QUINTERO MD Exam Time: 2:32:00 PM Study Type:Physiologic Leg Age: 1001/16/1940,79Y Sex: MALE Sonogrphr: Priti Recinos RVT Pat. Stat.:Inpatient Room: [address] Tape Vol: RF, CPT - 4: 59500 Echo Event ID:[id number] Order ID: [id number] Reason for Study:Bilateral decreased ped al pulses. 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 Procedures: Ankle/brachial pressures, Di git pressures Race: B SUMMARY: ANKLE/BRACHIAL INDEX: RIGHT LEFT Brachial Artery [id number] mmHg AV-Fi stula DP 0 mmHg 0 [...] Performing Organization Address City/State/Zipcode Phone Number [facility] [address] duplex arterial lower extremity (05/30/2019 3:30 PM COLLECTION TEAM LEAD) Specimen Narrative Performed At [facility] Vascular D iagnostic Laboratory Physiologi c Arterial Leg Report [address] [place] [address] Pat.Name: DILLON PEREZ Pat.ID: [id number] .Date: 05/30/2019 Refer.MD: ASCENCION QUINTERO MD Exam Time: 2:32:00 PM Study Type:P hysiologic Leg Age: 1001/16/1940,79Y Sex: MALE Sonogrphr: Priti Recinos RVT Pat. Stat.:Inpatie nt Room: [address] Vo l: RF, CPT - 4: 66320 Echo Rhea nt ID:[id number] Order ID: [id number] Reason for Study:Bilateral decreased ped al pulses. 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 Procedures: Ankle/brachial pressures, Di git pressures Race: B SUMMARY: ANKLE/BRACHIAL INDEX: RIGHT LEFT Brachial Artery Urqvwljr850 mmHg AV-F istula DP 0 mmHg 0 [...] Radiology Results In - 2019 9:03 AM [facility] Vascular Diagnostic Laboratory Physiologic Arterial Leg Report [id number] [address] Pat.Name: DILLON PEREZ Rhianna Pat.I D: [id number] .Date: 05/30/2019 Refer .MD: ASCENCION QUINTERO MD Exam Time: 2:32:00 PM Study Type:Physiologic Leg Age: 1001/16/1940,79Y Sex: MALE Sonogrphr: PAUL Herrera. Stat.:Inpatient Room: [address] Tape Vol: RF, CPT - 4: 08008 Echo Event ID:[id number] Order ID: [id number] Reason for Study:Bilateral decreased ped al pulses. 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 Procedures: Ankle/brachial pressures, Di git pressures Race: B SUMMARY: ANKLE/BRACHIAL INDEX: RIGHT LEFT Brachial Artery Zaxvxqgb063 mmHg AV-Fi stula DP 0 mmHg 0 [...] Marcellus Yung MD, RPVI Performing Organization Address [facility] Phone Number [facility] [address] [place] [phone] LDH (05/30/2019 11:05 AM COLLECTION TEAM LEAD) Pathologist [facility] LDH 267 (H) 87 - 225 U/L [facility] Specimen Plasma specimen Performing Organization [facility] Phone Number [facility] DEPARTMENT OF PATHOLOGY AND [address] [place] [address] Uric acid level (05/30/2019 12:50 AM COLLECTION TEAM LEAD) Pathologist [facility] Uric acid 4.5 3.4 - 7.0 mg/dL [facility] Specimen Plasma specimen Performing Organization [facility] DEPARTMENT OF PATHOLOGY AND [address] [place] [address] Thyroid stimulating hormone (05/30/2019 12:50 AM COLLECTION TEAM LEAD) Pathologist [facility] TSH 0.63 0.27 - 4.20 uIU/mL [facility] Specimen Plasma specimen Performing Organization [facility] Phone Number [facility] DEPARTMENT OF PATHOLOGY AND [address] [place] [phone] [place] [address] T4, free (05/30/2019 12:50 AM COLLECTION TEAM LEAD) Pathologist Sig [facility] T4, free 0.7 (L) 0.9 - 1.7 ng/dL [facility] Specimen Plasma specimen Performing Organization Address [facility] Phone Number [facility] DEPARTMENT OF PATHOLOGY AND [address] [address] Manual differential (05/30/2019 12:20 AM COLLECTION TEAM LEAD) Manual differential [facility] Neutrophils 81.0 (H) 39.0 - 69.0 % [facility] Lymphocytes 10.0 (L) 25.0 - 45.0 % [facility] Monocytes 8.0 0.0 - 10.0 % [facility] Eosinophils 1.0 0.0 - 5.0 % [facility] Basophils 0.0 0.0 - 1.0 % [facility] Metamyelocytes 0 % [facility] Promyelocytes 0 % [facility] Platelet slide review Decreased (A) [facility] Anisocytosis Moderate [facility] Polychromasia Moderate [facility] Tear drop cells Occasional [facility] Clayton cells Moderate (A) [facility] Enlarged platelets Moderate (A) [facility] Specimen Performing Organization Address City/[facility] Phone Number [facility] DEPARTMENT OF PATHOLOGY AND [address] [place] [phone] Heparin PF4 antibody (IgG) (05/29/2019 9:41 AM COLLECTION TEAM LEAD) Pathologist Sig nature Heparin PF4 Ab OD 0.206 0.000 - 0.399 [facility] Heparin PF4 Ab, IgG Negative Negative [facility] Specimen Blood Performing Organization Address City/[facility] Phone Number [facility] DEPARTMENT OF PATHOLOGY AND [address] [place] [address] Hepatitis B surface antigen (05/28/2019 1:50 PM COLLECTION TEAM LEAD) Pathologist Sig nature Hepatitis B surface Non-reactive Non-reactive [facility] Specimen Blood Performing Organization Address City/[facility] Phone Number [facility] DEPARTMENT OF PATHOLOGY AND [address] [place] [phone] Hemoglobin A1c (05/28/2019 9:41 AM COLLECTION TEAM LEAD) Hemoglobin A1C 6.5 (H) 4.0 - 5.6 % [facility] Comment: HOSPITAL HbA1c cutoffs for diagnosing diabetes: [...] Blood Performing Organization Address City/State/Zipcode Phone Number [facility] DEPARTMENT OF PATHOLOGY AND [address] [place] [address] [phone] GENOMIC MEDICINE [facility] [address] [place] [address] after 10/29/2018 Insurance Payer Benefit Plan / Subscriber ID Effective Dates Phone Addre ss Type Group MEDICARE MEDICARE PART A xxxxxxxxxxx 2004-[place], [place] Medicare AND B t AARP AARP SUPPLEMENT xxxxxxxxxxx 2008-Present Commercial (Work) [id number] Advance Directives For more information, please contact: [phone] Type Date Recorded 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
--- OUTSIDE RECORDS SUMMARY | 2019-10-30 11:40 | XMS REPORT | Continuity of Care Document ---
:1940 Author Organization [facility] t Address [address] [place] [address] Care Team Providers Name Role Phone Anmol Salazar MD Primary Care Physician JOANN Attending Clinician Unavailable Ingrid CHOWDHURY, R. Attending Clinician Ester CHOWDHURY, M. Attending Clinician Johnathan CHOWDHURY PhD, S. Attending Clinician JOANN Admitting Clinician Unavailable INGIRD Admitting Clinician Unavailable Payers Payer Name Policy Policy Number Effective Expiration Source Type Date Date MEDICAREMEDICARE PART xxxxxxxxxxx 2004 Jono Zelaya AND 00:00:00 [facility] Ofvjpnypyigl40/1/2004 [place] 2008 [place] SUPPLEMENTxxxxxxxxxxx 00:00:00 [place] [facility] Condition Condition Condition Status Onset [...] st 00 ally from request for surgery [id number] Coronary Coronary Disease Active Overview: Jono garcía artery artery 4-11 Added Methodi disease disease 00:00: automatic st involving involving 00 ally from [place] request coronary coronary for artery of artery of surgery [place] [id number] heart heart without without angina angina pectoris pectoris Chest pain Chest pain Disease Active Overview : Percy 4-11 Added Methodi 00:00: automatic st 00 ally from request for surgery [id number] 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 4-10 Method i 00:00: st 00 Coronary Coronary Disease Active [place] artery artery 4-10 Methodi disease of disease of 00:00: st [place] 00 artery of artery of [place] heart with heart with stable stable angina [...] 2020-0 [facility] 5-16 Clear 00:00: Ann 00 [facility] ciproflo DA Active U 2020-0 [facility] xacin 5-16 Clear 00:00: Ann 00 [facility] meperidi DA Active U 2020-0 [facility] ne 5-16 Clear 00:00: Ann 00 [facility] iodine DA Active U 2020-0 [facility] 4-13 Clear 00:00: Ann 00 [facility] ciproflo DA Active U 2020-0 [facility] xacin 4-13 Clear 00:00: Ann 00 [facility] meperidi DA Active U 2020-0 [facility] ne 4-13 Clear 00:00: Ann 00 [facility] Ciproflo Propensi Active Itching [place] xacin ty to 3-27 Methodi adverse 00:00: st reaction 00 s to drug Meperidi Propensi Active Other (See Jono stacy ty to Comments) 3-27 Methodi adverse 00:00: st reaction 00 s to drug Iodine Propensi Active Itching [place] ty to 4-19 Methodi adverse 00:00: st reaction 00 s to drug Shrimp Propensi Active Itching [place] ty to 4-19 Methodi adverse 00:00: st reaction 00 s to drug Iodine Adverse Active Info Not [facility] Reaction Available [facility] Social History Social Habit Start Date Stop Date Quantity Comments Source Sex Assigned At [place] M ethodist Cigarettes smoked 2019-05-29 2019-05-29 Percy Chance current (pack per 00:00:00 00:00:00 day) - Reported Cigarette 2019-05-29 2019-05-29 Percy Allen ist pack-years 00:00:00 00:00:00 Alcohol intake 2019-05-29 2019-05-29 Current [facility] thodist 00:00:00 00:00:00 non-drinker of alcohol (finding) History of tobacco 1979-03-08 Current smoker Jono Chance use 00:00:00 Smoking Status Start Date Stop Date Source Former smoker 2019-05-29 00:00:00 2019-05-29 00:00:00 Percy Chance Medications Ordered Filled Start Stop Current Ordering Indication Dosage Frequency Signature Comments Components Source Medication Medication Date Date Medication? Clinician (SIG) Name Name oseltamivir 2020- No 30mg Q.[id number] Take 1 [place] (TAMIFLU) 06-12 [id number] capsule Methodi 30 MG 00:00: 23:59 3W ([address] capsule 00 :00 total) by mouth 3 (three) times a week for 3 days. midodrine 2019- 2020- No 20mg Q.[id number] Take 2 [place] (PROAMATINE 07-10 [id number] tablets Methodi ) 10 MG 00:00: 23:59 3W ([address] tablet 00 :00 total) by mouth 3 (three) times a week for 30 days. polyethylen 2019-2019- No 17g QD Take 17 g [place] e glycol 06-10 by mouth Method i (MIRALAX) 00:00: 23:[address] 17 gram 00 :00 30 days. packet lisinopriL 2019- No 5mg QD Take 1 [place] (PRINIVIL) 06-10 tablet (5 Met hodi 5 mg tablet 00:00: 23:59 mg total) st 00 :00 by mouth daily for 30 days. insulin NPH 2019- No 6U QD [facility]Hum[facility] 06-10 Units Method i 100 unit/mL 00:00: 23:[address] injection 00 :00 skin daily for 30 days. epoetin 2019- No 54019G Q.[id number] Infuse [place] zaid-epbx 06-10 [id number] 13,000 M ethodi 10,000 00:00: 23:59 3W [...] chest pain. midodrine 2019-0 2020- No 20mg Q.[id number] Take 20 mg [place] (PROAMATINE 06-09 [id number] by mouth 3 Methodi ) 10 MG [...] 2020-0 Yes 1{spray QD 1 spray by [place] (FLONASE) 06-09 } Each Nare Metho di 50 20:45: route st mcg/actuati 43 daily. on nasal spray gabapentin 2020-0 Yes 100mg Q.[id number] Take 100 [place] (NEURONTIN) 06-09 [id number] mg by M ethodi 100 mg 20:45: 3D mouth 3 st capsule 43 (three) times a day. amIODarone 2020-0 Yes 100mg QD Take 100 Ho usoliver (PACERONE) 2-27 mg by Methodi 200 MG 20:45: mouth st tablet 43 daily. sevelamer 2020-0 Yes 1600mg Q.[id number] Take 1,600 [place] (RENVELA) - [id number] mg by Met hodi 800 mg 20:45: [...] levalbutero 2019-0 2020- No Influenza A 1.25mg Q.[id number] Take 3 mL [place] l (XOPENEX) 06-09 (H1N1) [id number] (1.25 mg Methodi 1.25 mg/3 00:00: 23:59 7D total) by st mL 00 :00 nebulizati nebulizer on every 4 solution (four) hours for 30 days. ipratropium 2019-0 2020- No Influenza A .5mg Q.[id number] Take 2. 5 [place] (ATROVENT) 06-09 (H1N1) [id number] mL (0.5 mg Methodi 0.02 % 00:00: 23:59 7D total) by st nebulizer 00 :00 nebulizati solution on every 4 (four) hours for 30 days. insulin 2019-0 2020- No 0U Q4H Inject [place] lispro 06-09 0-12 Units Method i (HumaLOG) [...] Yes Chris not [facility] Sulfate Sulfate [facility] defined [facility] Omeprazole Omeprazole Yes Chris not [facility] Gabapentin Gabapentin Yes Chris not [facility] clopidogrel clopidogrel Yes Chris not [facility] defined [facility] Ipratropium Ipratropium Yes Chris not [facility] [place] [facility] Prednisone Prednisone Yes Chris not [facility] defined [facility] Vital Signs Vital Name Observation Time Observation Value Comments Source Heart rate 2019-06-09 19:30:00 86 /min [place] Chance Respiratory rate 2019-06-09 19:30:00 22 /min [place] [facility] Oxygen saturation in 2019-06-09 19:16:00 100 /min Percy Chance Arterial blood by Pulse oximetry Systolic blood 2019-06-09 18:00:00 131 mm[Hg] [place] n [facility] pressure Diastolic blood 2019-06-09 18:00:00 59 mm[Hg] Chrissie on [facility] pressure Body temperature 2019-06-09 17:00:00 36.67 Leslee [place] [facility] Body weight 2019-06-09 06:00:00 124.5 kg Percy [...] PARTIAL THROMBOPLASTIN 2019-06-09 04:45:00 Yvette Hernandez on [facility] TIME (PTT) HC COMPLETE BLD COUNT 2019-06-09 04:45:00 Lee Polk W/AUTO DIFF POC GLUCOSE 2019-06-09 02:07:00 Trey Norman [facility] POC GLUCOSE 2019-06-08 20:30:00 Trey Norman [facility] POC GLUCOSE 2019-06-08 17:13:00 Trey Norman [facility] HEMODIALYSIS 2019-06-08 15:06:25 KiloagaDawna ethodist Almita XR CHEST 1 VW PORTABLE 2019-06-08 12:32:38 Norma Welsh [facility] POC GLUCOSE 2019-06-08 12:07:00 Trey Norman [facility] POC GLUCOSE 2019-06-08 07:38:00 Trey Norman [facility] PARTIAL THROMBOPLASTIN 2019-06-08 05:50:00 Yvette Hernandez on [facility] TIME (PTT) HC COMPLETE BLD COUNT 2019-06-08 05:50:00 Kaylene Watkins [facility] W/AUTO DIFF BASIC METABOLIC PANEL 2019-06-08 05:50:00 Kaylene Watkins [facility] MAGNESIUM LEVEL 2019-06-08 05:50:00 Kaylene Watkins [facility] PHOSPHORUS LEVEL 2019-06-08 05:50:00 Kaylene Watkins on [facility] ESTIMATED GFR 2019-06-08 05:50:00 Kaylene Watkins n [facility] POC GLUCOSE 2019-06-08 04:26:00 Trey Norman [facility] POC GLUCOSE 2019-06-08 00:18:00 Trey Norman [facility] POC GLUCOSE 2019-06-07 20:16:00 Trey Norman [facility] POC GLUCOSE 2019-06-07 16:22:00 Trey Norman [facility] POC GLUCOSE 2019-06-07 15:50:00 Trey Norman [facility] POC GLUCOSE 2019-06-07 11:39:00 Trey Norman [facility] ARTERIAL BLOOD GAS 2019-06-07 11:34:00 Micheline Multani [facility] HEMODIALYSIS 2019-06-07 10:44:52 Imani Arita Meth odist Vida POC GLUCOSE 2019-06-07 07:42:00 Trey Norman [facility] US DUPLEX VENOUS LOWER 2019-06-07 06:20:00 Yvette Hernandez on [facility] EXTREMITY BILATERAL POC GLUCOSE 2019-06-07 04:27:00 Trey Norman [facility] PARTIAL THROMBOPLASTIN 2019-06-07 03:50:00 Yvette Hernandez on Anglican TIME (PTT) CBC HEMOGRAM 2019-06-07 03:50:00 Lee Polk ethodist POC GLUCOSE 2019-06-07 00:19:00 Trey Norman [facility] POC GLUCOSE 2019-06-06 20:19:00 Trey Norman [facility] POC GLUCOSE 2019-06-06 18:13:00 Trey Norman [facility] OCCULT BLOOD, STOOL 2019-06-06 17:50:00 Trey Norman [facility] POC GLUCOSE 2019-06-06 14:46:00 Trey Norman [facility] POC GLUCOSE 2019-06-06 12:21:00 Trey Norman [facility] POC GLUCOSE 2019-06-06 08:00:00 Trey Norman [facility] POC GLUCOSE 2019-06-06 04:29:00 Trey Norman [facility] HC COMPLETE BLD COUNT 2019-06-06 03:35:00 Tejas Escamilla [facility] W/AUTO DIFF Louise MAGNESIUM LEVEL 2019-06-06 03:35:00 Tejas Escamilla ethodist Louise PHOSPHORUS LEVEL 2019-06-06 03:35:00 Tejas Escamilla [facility] Louise COMPREHENSIVE METABOLIC 2019-06-06 03:35:00 Tejas Escamilla [facility] PANEL Louise PARTIAL THROMBOPLASTIN 2019-06-06 03:35:00 Yvette Hernandez on [facility] TIME (PTT) ESTIMATED GFR 2019-06-06 03:35:00 Yvette Hernandez Meth odist POC GLUCOSE 2019-06-06 00:25:00 Trey Norman [facility] ARTERIAL BLOOD GAS 2019-06-05 21:42:00 Lee Polk n [facility] POC GLUCOSE 2019-06-05 20:16:00 Trey Norman [facility] POC GLUCOSE 2019-06-05 17:20:00 Trey Norman [facility] POC GLUCOSE 2019-06-05 16:15:00 Trey Norman [facility] POC GLUCOSE 2019-06-05 12:10:00 Trey Norman [facility] XR CHEST 1 VW PORTABLE 2019-06-05 08:59:00 Lee Polk Jono garcía [facility] POC GLUCOSE 2019-06-05 08:18:00 Trey Norman [facility] HC COMPLETE BLD COUNT 2019-06-05 04:20:00 Tejas Escamilla [facility] W/AUTO DIFF Louise MAGNESIUM LEVEL 2019-06-05 04:20:00 Tejas Escamilla ethodist Louise PHOSPHORUS LEVEL 2019-06-05 04:20:00 Tejas Escamilla [facility] Louise COMPREHENSIVE METABOLIC 2019-06-05 04:20:00 Tejas Escamilla [facility] PANEL Louise PARTIAL THROMBOPLASTIN 2019-06-05 04:20:00 Yvette Hernandez on [facility] TIME (PTT) ESTIMATED GFR 2019-06-05 04:20:00 Yvette Hernandez Meth odist POC GLUCOSE 2019-06-05 04:18:00 Trey Norman [facility] POC GLUCOSE 2019-06-05 00:57:00 Trey Norman [facility] TRANSFUSE RED BLOOD CELLS 2019-06-04 22:32:21 Trey Norman [facility] TRANSFUSE RED BLOOD CELLS 2019-06-04 21:21:15 Trey Norman [facility] POC GLUCOSE 2019-06-04 20:57:00 Trey Norman [facility] POC GLUCOSE 2019-06-04 16:48:00 Trey Norman [facility] PARTIAL THROMBOPLASTIN 2019-06-04 15:15:00 Yvette Hernandez on [facility] TIME (PTT) POC GLUCOSE 2019-06-04 12:13:00 Trey Norman [facility] XR CHEST 1 VW PORTABLE 2019-06-04 10:45:44 Tejas Escamilla [facility] Louise CBC HEMOGRAM 2019-06-04 08:44:00 Trey Norman [facility] POC GLUCOSE 2019-06-04 07:39:00 Trey Norman [facility] HEMODIALYSIS 2019-06-04 07:32:12 Imani Arita Percy Meth odist [place] HC COMPLETE BLD COUNT 2019-06-04 05:50:00 Tejas Escamillastephanie joseph [facility] W/AUTO DIFF Louise MAGNESIUM LEVEL 2019-06-04 05:50:00 Tejas Escamilla Yvette ethodist Louise PHOSPHORUS LEVEL 2019-06-04 05:50:00 AndiTejas boyd [facility] Louise COMPREHENSIVE METABOLIC 2019-06-04 05:50:00 [facility] PANEL [place] PARTIAL THROMBOPLASTIN 2019-06-04 05:50:00 Yvette Hernandez on [facility] TIME (PTT) ESTIMATED GFR 2019-06-04 05:50:00 AndiTejas ethodist Louise SMEAR REVIEW 2019-06-04 05:50:00 Andi Chandlergarcia Percy Crawford ethodist Louise POC GLUCOSE 2019-06-04 04:19:00 Trey Norman [facility] POC GLUCOSE 2019-06-04 00:27:00 Trey Norman [facility] PROTHROMBIN TIME WITH INR 2019-06-03 23:20:00 Yvette Hernandez [facility] PARTIAL THROMBOPLASTIN 2019-06-03 23:20:00 Yvette Hernandez on [facility] TIME (PTT) CBC HEMOGRAM 2019-06-03 23:20:00 Yvette Hernandez Meth odist ANTI XA, UNFRACTIONATED 2019-06-03 23:20:00 Yvette Hernandez [facility] POC GLUCOSE 2019-06-03 20:05:[address] [facility] [address] ANGIOGRAM PE CHEST 2019-06-03 19:51:51 Yvette Hernandez n [facility] POC GLUCOSE 2019-06-03 16:44:00 Trey Norman [facility] ECG 12-LEAD 2019-06-03 14:44:00 Tejas Escamilla ethodist Louise D-DIMER 2019-06-03 14:43:00 Yvette Hernandez Meth odist XR CHEST 1 VW PORTABLE 2019-06-03 14:38:39 Tejas Escamilla [facility] Louise RESPIRATORY PATHOGEN PANEL 2019-06-03 14:36:00 AndiChandler garcia Chance Louise ARTERIAL BLOOD GAS 2019-06-03 13:48:00 Andi Tejas sorenson [facility] Louise POC GLUCOSE 2019-06-03 12:18:00 Trey Norman [facility] XR CHEST 1 VW PORTABLE 2019-06-03 10:58:27 Bimal Gibbs [facility] POC GLUCOSE 2019-06-03 08:05:00 Trey Norman [facility] POC GLUCOSE 2019-06-03 06:16:00 Trey Norman [facility] HC COMPLETE BLD COUNT 2019-06-03 03:30:00 Trey Norman on [facility] W/AUTO DIFF BASIC METABOLIC PANEL 2019-06-03 03:30:00 Kaylene Watkinsist ESTIMATED GFR 2019-06-03 03:30:00 Kaylene Watkins [facility] POC GLUCOSE 2019-06-03 03:03:00 Trey Norman [facility] POC GLUCOSE 2019-06-02 22:08:00 Trey Norman [facility] POC GLUCOSE 2019-06-02 20:23:00 Trey Norman [facility] POC GLUCOSE 2019-06-02 16:39:00 Trey Norman [facility] ARTERIAL BLOOD GAS 2019-06-02 15:25:00 Radha Diaz on [facility] XR CHEST 1 VW PORTABLE 2019-06-02 15:20:00 Radha Diaz [facility] TRANSFUSE RED BLOOD CELLS 2019-06-02 15:17:45 Zoila Welsh [facility] POC GLUCOSE 2019-06-02 13:34:00 Trey Norman [facility] TYPE AND SCREEN 2019-06-02 08:34:00 Zoila Welshist PREPARE RBC 2019-06-02 08:34:00 Trey Norman [facility] CBC HEMOGRAM 2019-06-02 05:20:00 Ad Quintero Meth odist POC GLUCOSE 2019-06-01 22:56:00 Ad Quintero Meth odist POC GLUCOSE 2019-06-01 21:44:00 Ad Quintero Meth odist HEMODIALYSIS 2019-06-01 17:08:11 Zoila Welsh [facility] POC GLUCOSE 2019-06-01 17:04:00 Ad Quintero Meth odist CV PYP SCAN FOR CARDIAC 2019-06-01 15:12:30 Ayo Pruett [facility] AMYLOIDOSIS POC GLUCOSE 2019-06-01 12:04:00 Ad Quintero Meth odist ECG 12-LEAD 2019-06-01 11:32:51 Vandana Rene [facility] XR CHEST 1 VW PORTABLE 2019-06-01 11:20:00 Vandana Rene [facility] POC GLUCOSE 2019-06-01 07:50:00 Ad Quintero Meth odist KAPPA LAMBDA FREE LIGHT 2019-06-01 05:20:00 Ayo Pruett [facility] CHAIN WITH RATIO BASIC METABOLIC PANEL 2019-06-01 05:20:00 Ad Quintero [facility] ESTIMATED GFR 2019-06-01 05:20:00 Ad Quintero Meth odist POC GLUCOSE 2019-05-31 21:16:00 Ad Quintero Meth odist ECG 12-LEAD 2019-05-31 17:44:47 Vandana Rene [facility] BASIC METABOLIC PANEL 2019-05-31 17:33:00 Vandana Rene on [facility] MAGNESIUM LEVEL 2019-05-31 17:33:00 Vandana Rene [facility] ESTIMATED GFR 2019-05-31 17:33:00 Vandana Rene [facility] POC GLUCOSE 2019-05-31 16:58:[address] odist CT CARDIAC CALCIUM SCORE 2019-05-31 15:35:42 Ayo Pruett [facility] POC GLUCOSE 2019-05-31 12:29:00 Ad Quintero Meth odist HEMODIALYSIS 2019-05-31 09:45:19 Zoila Welsh [facility] POC GLUCOSE 2019-05-31 07:59:00 Ad Quintero Meth odist T3, FREE 2019-05-31 04:10:00 Jigar Hernandez odgiacomo CBC HEMOGRAM 2019-05-31 04:10:00 Jigar Hernandez odist BASIC METABOLIC PANEL 2019-05-31 00:00:00 Jigar Hernandez n [facility] MAGNESIUM LEVEL 2019-05-31 00:00:00 Jigar Hernandez odist IONIZED CALCIUM 2019-05-31 00:00:00 Jigar Hernandez odist PHOSPHORUS LEVEL 2019-05-31 00:00:00 Jigar Hernandez Met hodist ESTIMATED GFR 2019-05-31 00:00:00 Jigar Hernandez odist POC GLUCOSE 2019-05-30 20:56:00 Ad Quintero TTE COMPLETE, WO CONTRAST, 2019-05-30 19:00:00 Jigar Hernandez W DOPPLER ([id number]) POC GLUCOSE 2019-05-30 17:24:00 Ad Quintero US DUPLEX ARTERIAL UPPER 2019-05-30 17:00:00 Jigar Hernandez EXTREMITY BILATERAL US DUPLEX ARTERIAL LOWER 2019-05-30 15:30:00 Jigar Hernandez EXTREMITY BILATERAL US ANKLE BRACHIAL INDEX 2019-05-30 15:30:00 Jigar Hernandez [facility] POC GLUCOSE 2019-05-30 11:29:00 Ad Quintero odgiacomo ARTERIAL BLOOD GAS 2019-05-30 11:24:00 Yvette Hernandez M ethodist LDH 2019-05-30 11:05:00 Jigar Hernandez odist POC GLUCOSE 2019-05-30 07:30:00 Ad Quintero XR CHEST 1 VW PORTABLE 2019-05-30 04:10:00 Alba Fine [facility] POC GLUCOSE 2019-05-30 03:58:00 Ad Quintero odist URIC ACID LEVEL 2019-05-30 00:50:00 Trey Norman [facility] THYROID STIMULATING 2019-05-30 00:50:00 Trey Norman [facility] HORMONE T4, FREE 2019-05-30 00:50:00 Trey Norman [facility] BASIC METABOLIC PANEL 2019-05-30 00:50:00 Alba Fine on [facility] IONIZED CALCIUM 2019-05-30 00:50:00 Alba Fine [facility] MAGNESIUM LEVEL 2019-05-30 00:50:00 Alba Fine [facility] PHOSPHORUS LEVEL 2019-05-30 00:50:00 Alba Fine Me thodist ESTIMATED GFR 2019-05-30 00:50:00 Alba Fine [facility] CBC WITH PLATELET AND 2019-05-30 00:20:00 Alba Fine on Anglican DIFFERENTIAL MANUAL DIFFERENTIAL 2019-05-30 00:20:00 Alba Fine [facility] POC GLUCOSE 2019-05-29 23:45:00 Ad Quintero Meth odist POC GLUCOSE 2019-05-29 19:47:00 Ad Quintero Meth odist POC GLUCOSE 2019-05-29 16:16:00 Ad Quintero Meth odist POC GLUCOSE 2019-05-29 11:23:00 Ad Quintero Meth odist HEPARIN PF4 ANTIBODY (IGG) 2019-05-29 09:41:00 Trey Norman [facility] POC GLUCOSE 2019-05-29 07:36:00 Ad Quintero Meth odist XR CHEST 1 VW PORTABLE 2019-05-29 04:02:00 Alba Fine ton Anglican POC GLUCOSE 2019-05-29 04:00:00 Ad Quintero Meth odist ECG 12-LEAD 2019-05-29 03:42:45 Jigar Hernandez Meth odist HC COMPLETE BLD COUNT 2019-05-29 01:00:00 Alba Fine on [facility] W/AUTO DIFF BASIC METABOLIC PANEL 2019-05-29 00:33:00 Alba Fine on Anglican IONIZED CALCIUM 2019-05-29 00:33:00 Alba Fine [facility] MAGNESIUM LEVEL 2019-05-29 00:33:00 Alba Fine [facility] PHOSPHORUS LEVEL 2019-05-29 00:33:00 Alba Fine Ne thodist ESTIMATED GFR 2019-05-29 00:33:00 Babatunde Alba [facility] [facility] HC COMPLETE BLD COUNT 2019-05-29 00:00:00 Alba Fine on [facility] W/AUTO DIFF POC GLUCOSE 2019-05-28 23:52:00 Ad Quintero Meth odist POC GLUCOSE 2019-05-28 20:25:00 Ad Quintero Meth odist POC GLUCOSE 2019-05-28 16:33:00 Ad Quintero Meth odist HEPATITIS B SURFACE 2019-05-28 13:50:00 La Ash ANTIGEN POC GLUCOSE 2019-05-28 11:30:00 Ad Quintero odist HEMODIALYSIS 2019-05-28 11:17:52 aL Ash odist HC COMPLETE BLD COUNT 2019-05-28 10:05:00 Jigar Hernandez [facility] W/AUTO DIFF XR CHEST 1 VW PORTABLE 2019-05-28 10:02:26 Jigar Hernandez on Anglican CONSULT CARDIAC REHAB 2019-05-28 09:42:15 Jigar Hernandez [facility] PHASE 1 ECG 12-LEAD 2019-05-28 09:42:01 Jigar Hernandez odist BASIC METABOLIC PANEL 2019-05-28 09:41:00 Jigar Hernandez [facility] MAGNESIUM LEVEL 2019-05-28 09:41:00 Jigar Hernandez odist PHOSPHORUS LEVEL 2019-05-28 09:41:00 Jigar Hernandez hodist IONIZED CALCIUM 2019-05-28 09:41:00 Jigar Hernandez odist PROTHROMBIN TIME WITH INR 2019-05-28 09:41:00 Jigar Hernandez [facility] PARTIAL THROMBOPLASTIN 2019-05-28 09:41:00 Jigar Hernandez on Anglican TIME (PTT) TYPE AND SCREEN 2019-05-28 09:41:00 Jigar Hernandez odist ESTIMATED GFR 2019-05-28 09:41:00 Jigar Hernandez odist HEMOGLOBIN A1C 2019-05-28 09:41:00 Jigar Hernandez odist POC GLUCOSE 2019-05-28 09:39:00 Ad Quintero Meth odist Plan of Care Planned Activity Planned Date Details Comments Source Future Scheduled 2019-11-12 INFLUENZA VACCINE [place] [facility] 00:00:00 [code = INFLUENZA VACCINE] Future Scheduled 2004-01-13 65+ PNEUMOCOCCAL [place] [facility] Test 00:00:00 VACCINE (1 of 2 - PCV13) [code = 65+ PNEUMOCOCCAL VACCINE (1 of 2 - PCV13)] Future Scheduled 1989-01-12 SHINGLES VACCINES (#1) [place] [facility] Test 00:00:00 [code = SHINGLES VACCINES (#1)] Future Scheduled 1949-01-12 DIABETIC FOOT EXAM [place] [facility] Test 00:00:00 [code = DIABETIC FOOT EXAM] Future Scheduled 1949-01-12 URINE MICROALBUMIN [place] [facility] Test 00:00:00 [code = URINE MICROALBUMIN] Future Scheduled 1939 DIABETIC RETINAL EYE [place] [facility] Test 00:00:00 EXAM [code = DIABETIC RETINAL EYE EXAM] Encounters Start End Encounter Admission Attending Care Care Encounter Source Date/Time Date/Time Type Type Clinicians Facility Department ID 2019-07-18 Inpatient [facility] [id number] 4 [place] 15:02:00 [facility] 2019-05-28 2019-06-09 Inpatient [facility] [id number] [place] 00:00:00 00:00:00 TREY [address] 2019-06-01 2019-06-01 Outpatient [facility] [id number] [place] 00:00:00 00:00:[address] 2019-06-01 2019-06-01 Outpatient [facility] [id number] [place] 00:00:00 00:00:[address] 2019-03-22 2019-03-22 [facility] [id number] [address] 09:45:00 09:45:00 [facility] Results Test Description Test Time Test Comments Results Result Comments Source GLUBED 2019-08-30 17:19:00 Test Item Value Reference Range Interpretation Comme nts GLUBED (test code = GLUBED) 175 MG/DL 70-110 H Performed by certified 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 [facility] Coronavirus 2019 nCoV [id number] 14:30:00 Test Item Value Reference Range Interpretation Comments Coronavirus 2019 Negative Negative Negative re sults should be nCoV Bedside (test treated a s presumptive and, code = ifinconsistent with COVNONPUIBED) clinical signs and symptoms or necessaryfor patient management, matilde uld be tested with an alternativemole cular assay. Negative result s do not preclude [id number] tion and should not be u sed as the sole basis forp atient management deci sions. Negative result s should beconsidered in the context of a patient's recent exposures,histo ry, presence of clinical sig ns and symptoms consis tentwith COVID-19. [id number] 12:08:00 Test Item Value Reference Range Interpretation Comments GLUBED (test code = 204 MG/DL 70-110 H Performe d by certified GLUBED) 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 [facility] [id number] 08:21:00 Test Item Value Reference Range Interpretation Comments GLUBED (test code = 128 MG/DL 70-110 H Performe d by certified GLUBED) 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 [facility] [id number] 20:23:00 Test Item Value Reference Range Interpretation Comments GLUBED (test code = 315 MG/DL 70-110 H Performe d by certified GLUBED) 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 [facility] [id number] 16:00:00 Test Item Value Reference Range Interpretation Comments GLUBED (test code = 189 MG/DL 70-110 H Performe d by certified GLUBED) 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 [facility] ACUTE HEPATITIS [id number] 13:28:00 Test Item Value Reference Range Interpretation Comments AB HEPATITIS A IGM (test NON REACTIVE INDEX NON REACT. code = HAVMAB) AG HEPATITIS B SURFACE NON REACTIVE INDEX NonReactive (test code = HBSAG) AB HEPATITIS B CORE IGM NON REACTIVE INDEX NON REACT. (test code = HBCMAB) AB HEPATITIS C (test code NON REACTIVE INDEX NON REACT. = HCVAB) ACUTE HEPATITIS [id number] 13:24:00 Test Item Value Reference Range Interpretation Comments AB HEPATITIS A IGM (test INDEX NON REACT. code = HAVMAB) AG HEPATITIS B SURFACE NON REACTIVE INDEX NonReactive (test code = HBSAG) AB HEPATITIS B CORE IGM NON REACTIVE INDEX NON REACT. (test code = HBCMAB) AB HEPATITIS C (test code NON REACTIVE INDEX NON REACT. = HCVAB) ACUTE HEPATITIS [id number] 12:57:00 Test Item Value Reference Range Interpretation Comments AB HEPATITIS A IGM (test INDEX NON REACT. code = HAVMAB) AG HEPATITIS B SURFACE NON REACTIVE INDEX NonReactive (test code = HBSAG) AB HEPATITIS B CORE IGM INDEX NON REACT. (test code = HBCMAB) AB HEPATITIS C (test code INDEX NON REACT. 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 [facility] [id number] 17:38:00 Test Item Value Reference Range Interpretation Comments GLUBED (test code = 135 MG/DL 70-110 H Performe d by certified GLUBED) 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 [facility] [id number] 06:12:00 Test Item Value Reference Range Interpretation Comments GLUBED (test code = 136 MG/DL 70-110 H Performe d by certified GLUBED) 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 [facility] [id number] 06:12:00 Test Item Value Reference Range Interpretation Comments GLUBED (test code = 128 MG/DL 70-110 H Performe d by certified GLUBED) 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 [facility] B-TYPE NATRIURETIC [id number] 21:19:00 Test Item Value Reference Range Interpretation Comments B-TYPE NATRIURETIC PEPTIDE (test 583.7 PG/ML 0-100 H code = BNP) CBC W/AUTO [id number] 20:47:00 Test Item Value Reference Range Interpretation [...] NO = AUDREY) - CT NECK W/O [id number] 20:05:00 Name: ANDREA PEREZ [facility] : 1940 Age/S: 79 / M [address] [place] [address] Unit #: [id number] Loc: Cem [id number] Phys: Andrew Velez MD Acct: [id number] Dis Date: Status: REG ER PHONE #: [phone] Exam Date: 08/27/20191943 FAX #: [phone] Reason: neck swelling EXAMS: CPTCODE: [id number] CT NECK W/O CONTRAST 06298 Clinical Indication: Neck swelling; Comparison: None Technique: [...] 1 Signed Report (CONTINUED) Name: ANDREA PEREZ [facility] : 1940 Age/S: 79 / M [address] [place] [address] Blvd U nit #: [id number] Loc: [place] [address] Phys: Andrew Velez MD Acct: [id number] Dis Date: Status: REG ER PHONE #: [phone] Exam Date: 08/27/20191943 FAX #: [phone] Reason: neck swelling EXAMS: CPT CODE: [id number] CT NECK W/O CONTRAST 27207 <Continued> of the mandibular teeth to suggest [...] 08/27/2019 (2008) PAGE 2 Signed ReportBASIC METABOLIC [id number] 19:20:00 Test Item Value Reference Range Interpretation [...] 8.7 mg/dL 8.0-10.5 N CA) HEPATIC FUNCTION [id number] 19:20:00 Test Item Value Reference Range Interpretation [...] 127 IUnit/L 20-125 H code = ALKP) [id number] 19:20:00 Test Item Value Reference Range Interpretation Comments LIPASE (test code = LIP) 259 IUnit/L 73-393 N [id number] 19:20:00 Test Item Value Reference Range Interpretation [...] may ana y by method. BASIC METABOLIC [id number] 19:19:00 Test Item Value Reference Range Interpretation [...] code = CA) mg/dL 8.0-10.5 HEPATIC FUNCTION [id number] 19:19:00 Test Item Value Reference Range Interpretation Comments TOTAL PROTEIN (test code = PROT) g/dL 6.4-8.2 ALBUMIN (test code = ALB) g/dL 3.4-5.0 BILIRUBIN TOTAL (test code = BILT) MG/DL <1.5 BILIRUBIN DIRECT (test code = BILD) MG/DL 0.0-0.30 SGOT/AST (test code = AST) IUnit/L 15-37 SGPT/ALT (test code = ALT) IUnit/L 15-65 ALKALINE PHOSPHATASE TOTAL (test IUnit/L 20-125 code = ALKP) [id number] 19:19:00 Test Item Value Reference Range Interpretation Comments LIPASE (test code = LIP) IUnit/L 73-393 [id number] 19:19:00 Test Item Value Reference Range Interpretation [...] y by method. - XR CHEST 1 [id number] 18:26:00 FAX: Andrew Velez MD [phone] [place]: St: REG Name: ANDREA PEREZ [facility] : 1940 Age/S: 79/M [address] [place] [address] Bl Unit#: [id number] Loc: Sus[address] [address] Phys: Andrew Velez MD Acct: [id number] Dis Date: Status: REG ER PHONE #: [phone] Exam Date: 08/27/20191811 FAX #: [phone] Reason: SOB EXAMS: CPT CODE: [id number] XR CHEST 1 V 75828 Portable single view AP chest INDICATION: Shortness [...] D/T: S: 08/27/2019 (1828) PAGE 1 Signed [id number] 12:06:00 Test Item Value Reference Range Interpretation Comments GLUBED (test code = 174 MG/DL 70-110 H Performe d by certified GLUBED) 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 [facility] [id number] 08:04:00 Test Item Value Reference Range Interpretation Comments GLUBED (test code = 177 MG/DL 70-110 H Performe d by certified GLUBED) 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 [facility] [id number] 21:17:00 Test Item Value Reference Range Interpretation Comments GLUBED (test code = 231 MG/DL 70-110 H Performe d by certified GLUBED) 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 [facility] [id number] 17:24:00 Test Item Value Reference Range Interpretation Comments GLUBED (test code = 123 MG/DL 70-110 H Performe d by certified GLUBED) 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 [facility] BASIC METABOLIC [id number] 15:59:00 Test Item Value Reference Range Interpretation [...] 8.1 mg/dL 8.0-10.5 N CA) CBC W/AUTO [id number] 15:41:00 Test Item Value Reference Range Interpretation [...] DIFF REQUIRED (test NO code = MDIFF) [id number] 12:16:00 Test Item Value Reference Range Interpretation Comments GLUBED (test code = 154 MG/DL 70-110 H Performe d by certified GLUBED) 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 [facility] HGBA1C%2019-07-28 11:41:00 Test Item Value Reference Range Interpretation Comments HGBA1C% (test code = HGBA1C%) 5.3 %A1C 4.8-6.0 N COMMENTS: use existing specimenCBC W/AUTO [id number] 10:42:00 Test Item Value Reference Range Interpretation [...] (test NO code = MDIFF) ACUTE HEPATITIS [id number] 08:09:00 Test Item Value Reference Range Interpretation [...] COMMENTS: At start of hemodialysisAB HEPATITIS B [id number] 08:09:00 Test Item Value Reference Range Interpretation Comments AB HEPATITIS B < 3.1 mIU/mL Immunity>9.9 L Status of I mmunity SURFACE (test code = HBSAB) Anti-HBs Level --- I ncons istent with Imm unity 0.0 - 9.9Consis tent with Immunity >9.9Performed A t: [facility] [id number] Robi Hinton MD Ph:[phone] COMMENTS: At start of kiupthmgkwrsUOFULC6103-09-08 07:15:00 Test Item Value Reference Range Interpretation Comments GLUBED (test code = 131 MG/DL 70-110 H Performe d by certified GLUBED) 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 [facility] [id number] 20:07:00 Test Item Value Reference Range Interpretation Comments GLUBED (test code = 199 MG/DL 70-110 H Performe d by certified GLUBED) 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 [facility] [id number] 16:34:00 Test Item Value Reference Range Interpretation Comments GLUBED (test code = 196 MG/DL 70-110 H Performe d by certified GLUBED) 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 [facility] - XR FLUOROSCOPY 0-60 [id number] 16:12:00 FAX: Davie Courtney [phone] [place]: St: ADM FAX: Jesus Spencer [phone] Name: ANDREA PEREZ [facility] : 1940 Age/S: 79/M [address] [place] [address] Unit #: [id number] Loc: G.5529 [place] [address] Phys: Alexandr Kwon MD Acct: [id number] Dis Date: Status: ADM IN PHONE #: [phone] Exam Date: 07/27/2019 1130 FAX #: [phone] Reason: LT AV GRAFT MALFUNCTION EXAMS: CPT CODE: [id number] XR FLUOROSCOPY 0-60 MIN 22118 Intraprocedural fluoroscopy was provided by the Department of Radiology. Any images obtained were interpreted by the surgeon intraoperatively. FLUOROSCOPY TIME: 1 minute 21 seconds REFERENCE AIR KERMA : 15.0 mGy SL: [id number] at 1612 Reported and signed by: Torrey Yan M.D. CC: Davie Lee MD; Alexandr Kwon MD Technologist: DARYN Newman) Trnscrd Date/Time/By: 07/27/2019 (5337) : By: Ruth Orig Print D/T: S: 07/27/2019 (4223) PAGE 1 Signed [id number] 07:36:00 Test Item Value Reference Range Interpretation Comments GLUBED (test code = 151 MG/DL 70-110 H Performe d by certified GLUBED) 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 [facility] [id number] 20:35:00 Test Item Value Reference Range Interpretation Comments GLUBED (test code = 170 MG/DL 70-110 H Performe d by certified GLUBED) 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 [facility] [id number] 16:59:00 Test Item Value Reference Range Interpretation Comments GLUBED (test code = 150 MG/DL 70-110 H Performe d by certified GLUBED) 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 [facility] ACUTE HEPATITIS [id number] 14:02:00 Test Item Value Reference Range Interpretation [...] COMMENTS: At start of hemodialysisAB HEPATITIS B [id number] 14:02:00 Test Item Value Reference Range Interpretation Comments AB HEPATITIS B SURFACE (test code = HBSAB) COMMENTS: At start of hemodialysisACUTE HEPATITIS [id number] 13:40:00 Test Item Value Reference Range Interpretation Comments AB HEPATITIS A IGM (test INDEX NON REACT. code = HAVMAB) AG HEPATITIS B SURFACE NON REACTIVE INDEX NonReactive (test code = HBSAG) AB HEPATITIS B CORE IGM INDEX NON REACT. (test code = HBCMAB) AB HEPATITIS C (test code INDEX NON REACT. = HCVAB) COMMENTS: At start of hemodialysisAB HEPATITIS B [id number] 13:40:00 Test Item Value Reference Range Interpretation Comments AB HEPATITIS B SURFACE (test code = HBSAB) COMMENTS: At start of hemodialysis- DUP LE ART [id number] 11:49:00 Name: ANDREA PEREZ [facility] : 1940 Age/S: 79 / M [address] [place] [address] Unit #: [id number] Loc: Cem [id number] Phys: Alexandr Kwon MD Acct: [id number] Dis Date: Status: ADM IN PHONE #: [phone] Exam Date: 07/26/2019 1032 FAX #: [phone] Reason: right foot non-healing wound EXAMS: CPTCODE: [id number] [facility] [employer] UNI/LTD 55640 RIGHT LOWER EXTREMITY ARTERIAL DOPPLER 07/26/2019 AT 1013 HOURS. CLINICAL HISTORY: Nonhealing rightfoot wound. COMPARISONS: None relevant. FINDINGS: Duplex sonographic evaluation of the bilateral lower extremity arterial circulation was performed. RIGHT SIDE: Triphasic waveforms are seen in the right common femoral, superficial femoral and popliteal artery. Monophasic waveforms are seen in the right posterior tibialis and dorsalis pedis artery. PEAK SYSTOLIC VELOCITIES: MOBILE THERAPIST: 97 cm/s Femoral artery: 101 cm/s Popliteal: 42 cm/s Posterior tibialis: 29 cm/s Dorsalis pedis artery: 12 cm/s. IMPRESSION: 1. Severe right trifurcation atherosclerosis. 2. Nearly 60% drop in peak systolic velocities between right femoral and popliteal artery with preserved popliteal triphasic waveforms. Suspect flow-limiting stenosis at distal popliteal level. SL: [id number] at 1149 Reported and signed by: Desean Gong M.D. CC: Davie Lee MD; Alexandr Kwon MD Technologist: Yessica Johnson RDMS(Garcia)(BR) Trnscb Date/Time: 07/26/2019 (1149) [email or web address] Orig Print D/T: S: 07/26/2019 (2528) Probe: PAGE 1 Signed [id number] 11:20:00 Test Item Value Reference Range Interpretation Comments GLUBED (test code = 161 MG/DL 70-110 H Performe d by certified GLUBED) 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 [facility] BASIC METABOLIC [id number] 08:33:00 Test Item Value Reference Range Interpretation [...] code = 8.3 mg/dL 8.0-10.5 N CA) [id number] 08:33:00 Test Item Value Reference Range Interpretation Comments MAGNESIUM (test code = MAG) 2.50 mg/dL 1.8-2.4 H [id number] 08:10:00 Test Item Value Reference Range Interpretation Comments GLUBED (test code = 172 MG/DL 70-110 H Performe d by certified GLUBED) 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 [facility] CBC W/AUTO [id number] 06:08:00 Test Item Value Reference Range Interpretation [...] REQUIRED (test NO code = MDIFF) PROTHROMBIN [id number] 05:27:00 Test Item Value Reference Range Interpretation [...] Infarction (t o prevent recurre nt infarct). [id number] 22:48:00 Test Item Value Reference Range Interpretation Comments GLUBED (test code = 125 MG/DL 70-110 H Performe d by certified GLUBED) 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 [facility] - XR CHEST 1 [id number] 18:11:00 FAX: Davie Courtney [phone] [place]: St: ADM FAX: Jesus Spencer [phone] Name: ANDREA PEREZ Rhianna [facility] : 1940 Age/S: 79/M [address] [place] [address] Unit #: [id number] Loc: G.5529 [place] [address] Phys: Alexandr Kwon MD Acct: [id number] Dis Date: Status: ADM IN PHONE #: [phone] Exam Date: 07/25/2019 180 FAX #: [phone] Reason: Post Op EXAMS: CPT CODE: [id number] XR CHEST 1 V 79677 Portable single view AP chest INDICATION: Postop. [...] PAGE 1 Signed Report- XR FLUOROSCOPY 0-60 [id number] 17:51:00 FAX: Davie Courtney [phone] [place]: St: ADM FAX: Jesus Spencer [phone] Name: ANDREA PEREZ [facility] : 1940 Age/S: 79/M [address] [place] [address] Unit #: [id number] Loc: G.5529 [place] [address] Phys: Alexandr Kwon MD Acct: [id number] Dis Date: Status: ADM IN PHONE #: [phone] Exam Date: 07/25/2019 1645 FAX #: [phone] Reason: MALFUNCTION LT ARM AV GRAFT EXAMS: CPT CODE: [id number] XR FLUOROSCOPY 0-60 MIN 38489 Fluoroscopic guidance was provided by the radiology [...] By: [email or web address] Orig Print D/T: S: 07/25/2019 (769) PAGE 1 Signed ReportCBC W/AUTO [id number] 15:22:00 Test Item Value Reference Range Interpretation [...] REQUIRED (test NO code = MDIFF) PLT [id number] 15:22:00 Test Item Value Reference Range Interpretation Comments PLATELET ESTIMATE (test code 140-175 THOUSAND ADEQUATE = PLTEST) PLATELET MORPHOLOGY (test LARGE PLATELETS code = PLTMORPH) PROTHROMBIN [id number] 09:45:00 Test Item Value Reference Range Interpretation [...] o prevent recurre nt infarct). THROMBOPLASTIN TIME [id number] 09:45:00 Test Item Value Reference Range Interpretation Comments THROMBOPLASTIN TIME 33.9 Seconds 25.0-39.5 N Ther apeutic PARTIAL (test code = Range: 50.4 - 88.3 PTT) Seconds Effective 07/27/2018 [id number] 09:37:00 Test Item Value Reference Range Interpretation Comments PHOSPHOROUS (test code = PHOS) 4.1 MG/DL 2.5-4.9 N [id number] 09:37:00 Test Item Value Reference Range Interpretation Comments MAGNESIUM (test code = MAG) 2.40 mg/dL 1.8-2.4 N COMPREHENSIVE METABOLIC [id number] 09:11:00 Test Item Value Reference Range Interpretation [...] TOTAL (test code = ALKP) COMPREHENSIVE METABOLIC [id number] 09:06:00 Test Item Value Reference Range Interpretation [...] IUnit/L 20-125 code = ALKP) CBC W/AUTO [id number] 09:04:00 Test Item Value Reference Range Interpretation [...] REQUIRED (test NO code = MDIFF) PLT [id number] 09:04:00 Test Item Value Reference Range Interpretation Comments PLATELET ESTIMATE (test code = THOUSAND ADEQUATE PLTEST) CBC W/AUTO [id number] 09:04:00 Test Item Value Reference Range Interpretation [...] REQUIRED (test NO code = MDIFF) PLT [id number] 09:04:00 Test Item Value Reference Range Interpretation Comments PLATELET ESTIMATE (test code = THOUSAND ADEQUATE PLTEST) POC fqjnxgm6443-13-78 16:36:33 Test Item Value Reference Range Interpretation Comments POC glucose (test code = 238 mg/dL 65-99 H Ope rator Name: [id number]) Veena Sexton ice ID: [id number] able: [facility] Notified administrative officer Interpretation (test Abnormal code = 69566-2) [facility] MethodistPartial thromboplastin time, ocnyngvcz6314-83-10 06:11:45 Test Item Value Reference Range Interpretation Comments PTT (test code = 52.8 23.0- 36.0 sec H PTT thera peutic range 40091-5) for unfractiona deshawn heparin is61.0- 112.0 seconds which corresponds to Anti-Xa0.3-0.7 U/ml. Lab Interpretation Abnormal (test code = 29820-0) [facility] MethodistCBC with platelet and upnaspfzvzzv7436-39-60 06:01:31 Test Item Value Reference Range Interpretation Comments WBC (test code = 79028-0) 11.21 4.50- 11.00 k/uL H RBC (test code = 70804-6) 3.04 m/uL 4.4-6 L HGB (test code = 718-7) 8.5 g/dL 14-18 L HCT (test code = 4544-3) 29.7 % 41-51 L MCV (test code = 787-2) 97.7 fL 82-100 MCH (test code = 785-6) 28.0 pg 27-34 MCHC (test code = 786-4) 28.6 g/dL 31-37 L RDW - SD (test code = 63.7 fL 37-55 H 75658-9) MPV (test code = 92875-9) 12.5 fL 8.8-13.2 Platelet count (test code 127 150- 400 k/uL L = 23967-4) Nucleated RBC (test code 0.00 /100 WBC = 16789-9) Neutrophils (test code = 78.6 % 39-69 H 79925-0) Lymphocytes (test code = 8.8 % 25-45 L 26369-7) Monocytes (test code = 10.9 % 0-10 H 18700-8) Eosinophils (test code = 1.1 % 0-5 49104-9) Basophils (test code = 0.2 % 0-1 93140-3) Immature granulocytes 0.4 % 0-1 "Immat ure (test code = 77201-1) granul ocytes" (promyelocytes, myelocytes, metamyelocytes) Lab Interpretation (test Abnormal code = 59389-5) [facility] Chest 1 Vw Etpgvhxn2634-02-44 12:45:16Hm Interface, Radiology Results - 06/08/2019 12:48 [...] effusion. No pneumothorax.Bones: Regional osseous structures appear stable.[id number] [facility] MethodistBasic metabolic htivw0824-02-50 06:39:31 Test Item Value Reference Range Interpretation Comments Sodium (test code = 2951-2) 135 135- 148 mEq/L Potassium (test code = 2823-3) 4.2 3.5- 5.0 mEq/L Chloride (test code = 2075-0) 97 98- 112 mEq/L L CO2 (test code = 8-9) 26 24- 31 mEq/L Anion gap (test code = 79210-9) 12@ANIO 7- 15 mEq/L BUN (test code = 3094-0) 31 mg/dL 8-23 H Creatinine (test code = 2160-0) 4.21 mg/dL 0.7-1.2 H Glucose (test code = 2345-7) 117 mg/dL 65-99 H Calcium (test code = 52281-1) 9.0 mg/dL 8.8-10.2 Lab Interpretation (test code = Abnormal 12260-0) [facility] MethodistMagnesium erxiy3113-98-61 06:39:31 Test Item Value Reference Range Interpretation Comments Magnesium (test code = 76038-6) 2.3 mg/dL 1.6-2.4 [facility] MethodistPhosphorus pvhtw8168-57-50 06:39:31 Test Item Value Reference Range Interpretation Comments Phosphorus (test code = 2777-1) 2.5 mg/dL 2.4-4.5 [facility] MethodistEstimated [id number] 06:39:31 Test Item Value Reference Range Interpretation Comments Estimated GFR (test 14 mL/min/1.73 m2 Garcia Gallegoscaridad roger Units code = 5488) InterpretationG 1 >=90 Ahnnah l or highG2 60-89 Mildly decrease dG3a 45-59 Mil dly to moderately decr lqkkxM6e 30-44 Moderately to s everely decreasedG4 15-29 Severe ly decreasedG5 <15 Kidney fina lureThe eGFR was calcul ated using the [facility] Kidney Disease Epidemiology Collaboration ( CKD-EPI) equation. Interpretation is based on recommendati ons of the National Ki dney Foundation-Kidn ey Disease Outcome s Quality Initiat go (NKF-KDOQI) pub lished in 2013. Lab Interpretation Abnormal (test code = 00116-4) [facility] MethodistArterial blood eqx2229-46-53 11:45:20 Test Item Value Reference Range Interpretation [...] 2708-6) Lab Interpretation (test code = Abnormal 99122-9) [facility] MethodistUs duplex venous lower wldtnttlw6825-50-63 08:10:00Interface, Radiology Results In - 06/07/2019 8:11 AM [facility] Vascular Ultrasound Laboratory Lower Extremity Venous Vwrtrp[address] [place] [address] Pat.Name: GABBY PEREZ Pat.ID: [id number] .Date: 06/07/2019 Refer.MD: KIMBERLY KHANNA MD Exam Time: 4:51:00 AM Study Type:LE Venous Age: 1001/16/1940,79Y Sex: MALE Sonogrphr: Jamal Lira, BA, BS, RDMS, RVTPat. Stat.:Inpatient Room: [address] Tape Vol: ZENAIDA, CPT - 4: 37183 Echo Event ID:[id number] Order ID: [id number] Reason for Study:Evaluate for DVT. Patient has [...] thigh, medial to the femoral vessels, measuring lohpgophqoorn32.4x6.2x,2.34cm FINDINGS: Signed 06/07/2019 08:10 [facility]b Yung [facility] usxugfpn6303-88-19 04:26:08 Test Item Value Reference Range Interpretation Comments WBC (test code = 46886-1) 16.21 4.50- 11.00 k/uL H RBC (test code = 85654-0) 3.35 m/uL 4.4-6 L HGB (test code = 718-7) 9.6 g/dL 14-18 L HCT (test code = 4544-3) 32.4 % 41-51 L MCV (test code = 787-2) 96.7 fL 82-100 MCH (test code = 785-6) 28.7 pg 27-34 MCHC (test code = 786-4) 29.6 g/dL 31-37 L RDW - SD (test code = 96691-6) 64.8 fL 37-55 H MPV (test code = 33694-6) 12.3 fL 8.8-13.2 Platelet count (test code = 132 150- 400 k/uL L 88082-3) Nucleated RBC (test code = 0.00 /100 WBC 26401-5) Lab Interpretation (test code = Abnormal 77425-1) [facility] MethodistOccult blood, pqqyb8649-72-87 20:16:15 Test Item Value Reference Range Interpretation Comments Occult blood, Negative for Specimen stool (test occult blood. InformationSpe manish code = Source: StoolSp ecimen 2334-1) Site: Nonpreser nguyen [facility] MethodistComprehensive metabolic bupza9216-05-25 04:23:36 Test Item Value Reference Range Interpretation Comments Sodium (test code = 136 135- 148 mEq/L 2951-2) Potassium (test code = 4.7 3.5- 5.0 mEq/L 2823-3) Chloride (test code = 96 98- 112 mEq/L L 2075-0) CO2 (test code = 2027-9) 25 24- 31 mEq/L Anion gap (test code = 15@ANIO 7- 15 mEq/L 30973-2) BUN (test code = 3094-0) 38 mg/dL 8-23 H Creatinine (test code = 4.73 mg/dL 0.7-1.2 H 2160-0) Glucose (test code = 77 mg/dL 65-99 2345-7) Calcium (test code = 8.7 mg/dL 8.8-10.2 L 98860-6) Protein (test code = 6.4 g/dL 6.3-8.3 [place] 9994.6-7.0 2885-2) g/dL1 vxrt9553.4-7.6 g/dL7 months-8ninq978 .1- 7.3 g/dL1-2 ahgiv454.6-7.5 g/dL>3 pukau909.0-8.0 g/wV82-5477327. 3-8 .3 g/dL Albumin (test code = 2.4 g/dL 3.5-5 L 1751-7) A/G ratio (test code = 0.6 0.7-3.8 L 1759-0) Alkaline phosphatase 77 U/L 40-129 (test code = 6768-6) AST (test code = 1920-8) 10 U/L 10-50 ALT (test code = 1742-6) 15 U/L 5-50 Total bilirubin (test 0.5 mg/dL 0-1.2 code = 1975-2) Lab Interpretation (test Abnormal code = 66001-4) [facility] AllenistECG 12 fwrz2848-04-86 10:46:09 Test Item Value Reference Range Interpretation Comments Ventricular rate (test 115 code = 253) Atrial rate (test code 115 = 255) MO interval (test code 114 = 266) QRSD [...] change was found-- [facility] ChancePrepare RBC, 2 Bosob7559-65-46 20:18:00 Test Item Value Reference Range Interpretation Comments Product name (test code Apheresis Red Cell AS3 = 25) #2 LR Unit number (test code [id number] = [id number]) Product code (test code W5715R43 = 3092) Dispense status (test Transfused code = 24) Blood expiration date (test code = 302) Blood type code (test 5100 code = 308) Blood type (test code = O POSITIVE 1314) Compatibility (test Compatible code = 6400) [facility] AllenistSmear gorqlo3693-47-68 09:08:06 Test Item Value Reference Range Interpretation Comments Platelet slide review (test code Trell slt decr = 23221-8) Anisocytosis (test code = 702-1) Moderate Polychromasia (test code = Moderate 78967-0) Ovalocytes (test code = 774-0) Moderate [facility] MethodistAnti Xa, szzbimlqsbylfq8345-77-96 00:22:06 Test Item Value Reference Range Interpretation Comments Anti Xa, unfractionated <0.10 0.3-0.7 L Ther apeutic Range: (test code = 3274-8) 0.30 - 0.70 U/mL Lab Interpretation (test Abnormal code = 54162-5) [facility] MethodistProthrombin time with TQM3100-50-45 00:09:41 Test Item Value Reference Range Interpretation Comments Prothrombin time (test 14.8 11.5- 14.5 sec H code = 5902-2) INR (test code = 1.2 [facility] 59342-5) Normalized Rati o (INR) is a therapeuti c monitoring tool for patients who ar e stable on oral anticoagulant t herapy. An INR of 2.0-3 .0 is suggested for d eep vein thrombosis/pulm onary embolism. Lab Interpretation Abnormal (test code = 11890-1) [facility] MethodistRespiratory pathogen jmgjg6111-74-35 22:13:14 Test Item Value Reference Interpretation Comments Range Respiratory Positive for Influenza A Speci men pathogen panel A/H1-2008 [facility] ecimen (test code = virus Gris rce: 2148) ----Negative for all [facility] ecimen Site: other pathogens Right tested:Negative for AdenovirusNegative for Coronavirus YFX1Ofhrsrzo for Coronavirus KP47Ydupdryk for Coronavirus 229ENegative for Coronavirus TU92Rofllfik for Human MetapneumovirusNegative for Rhinovirus/EnterovirusNe gative for Influenza ANegative for Influenza A/Q6Vqnjgkfy for Influenza A/F4Gmskuowl for Influenza BNegative for Parainfluenza Virus 1Negative [...] assay. Lab Abnormal Interpretation (test code = 39064-8) [facility] MethodistCT Angiogram Pe Wiure1933-61-05 20:01:02Hm Interface, Radiology Results - 06/03/2019 8:04 [...] Kerr, at 8:00 PM, and she expressed understanding[facility]-[id number] KmuxzrpxxA-qjvim5792-30-21 15:17:52 Test Item Value Reference Range Interpretation Comments D-dimer (test code = 1.73 0.00- 0.40 ug/mL H Uni ts are ug/ml 01559-3) FEU Fibrinogen Equivalent Unit .When combined with [...] malignancies. Lab Interpretation Abnormal (test code = 47753-4) [facility] MethodistType and jfdflh7670-02-19 09:53:00 Test Item Value Reference Range Interpretation Comments ABO grouping (test code = 883-9) O Rh type (test code = 15776-7) POS Antibody screen (gel) (test code = NEG 890-4) [facility] lambda free light chain with kfnfw7397-17-84 07:19:49 Test Item Value Reference Range Interpretation Comments [place] light chain (test code = 289.08 mg/L 3.3-19.4 H 95424-1) Lambda light chain (test code = 143.97 mg/L 5.7-26.3 H 67390-1) [place] lambda ratio (test code = 2.01 0.26-1.65 H 22774-5) Lab Interpretation (test code = Abnormal 30164-1) [place] MethodistCv pyp scan for cardiac powsdxszrza0842-35-27 15:40:00 Interface, Radiology Results In - 06/01/2019 3:40 PM [facility] Nuclear Cardiology and Cardiac CT [address] [place] [address] PYP Cardiac Amyloidosis Imaging ReportPat.Name: GABBY PEREZ Pat.ID: [id number] .Date: 06/01/2019 Refer.MD: AD QUINTERO MD Exam Time: 11:24:00 AM Study Type:PYP Cardiac Amyloidosis ImagingHeight: 71in Weight: 266lb BSA: 2.38 m2 Age: 1001/16/1940,79Y Sex: MALE Nuclear Tech:TRACY TavaresMT, [facility](N)Pat. Stat.:Inpatient NuclearEvent ID:[id number] Order ID: [id number] Reason for Study:R/O TTR amyloid History / [...] (ATTR). -------FINDINGS: Signed 06/01/2019 03:40 PMMohan Saucedo MDMacomb MethodistT3, vlkw8821-65-35 08:33:03 Test Item Value Reference Range Interpretation Comments T3, free (test code = 1.1 pg/mL 2.4-4.2 L REFERE NCE INTERVAL: 5404-9) Triiodothyronin e, Free (Free T3)A ccess complete set of age- and/or gender-specific reference inter vals for this test i n the [facility] Test Directory ([employer]).P erfor med by Zidisha,[address] [facility] [place] [address] bbo .[employer]365 (fka [employer]), Jared Foster MD, Dorothy gotti Director Lab Interpretation (test Abnormal code = 75190-0) [facility] obvhq1297-30-74 19:15:00Interface, Radiology Results In - 05/31/2019 7:15 PM [facility] Nuclear Cardiology and Cardiac CT [address] [place] [address] [address] Calcium Scoring ReportPat.Name: GABBY PEREZ [facility].ID: [id number] .Date: 05/31/2019 Refer.MD: AD QUINTERO MD Exam Time: 3:04:00 PM Study Type:CT Calcium Scoring Height: 71in Weight: 266lbBSA: 2.38 m2 Age: 1001/16/1940,79Y Sex: MALE HR: 92 bpm Nuclear Tech:Ayo Aviles RT(DE)(CT), [facility]/Abdiel Billings [facility]. Stat.:Inpatient Nuclear Event ID:[id number] Order ID: [id number] Reason for Study:Eval Aortic Valve Procedures: CT Flash mode Race: Black SUMMARY: Technique: Sequential 3mm CT cuts were obtained through the chest [facility] the[facility] Catapooolt [facility] scanner with ECG gating. Interactive imageviewing [...] MethodistEchocardiogram complete w contrast and 3D if zgskgu2807-00-79 13:49:00Interface, Radiology Results In - 05/31/2019 1:49 PM [facility] Echocardiography Report [address] [facility], [place] [address] Pat.Name: GABBY PEREZ Pat.ID: [id number].Date: 05/30/2019 Refer.MD: AD QUINTERO MD Exam Time: 6:00:00 PM Study Type:Routine Echo Height: 71in Weight: 305lb BSA: 2.53 m2 Age: 1001/16/1940,79Y Sex: MALE BP: 138/70 HR: 72 bpm Sonogrphr: EZRA Stock Pat. Stat.:Inpatient Room: [address] Study Status:Final Echo Event ID:[id number] Order ID: [id number] Reason for Study:Aortic stenosis evaluation.History / Clinical:Congestive [...] of 10 mmHg. MEASUREME NTS: 2DParasternal Long Basehor AoAn 2.5 cm LVPWd 1.2 cm Ao [...] SVi 42ml/m2 Signed 05/31/2019 01:49 PMJodi Rose M.D.[place] MethodistIonized dhqlfta5328-53-90 07:45:51 Test Item Value Reference Range Interpretation Comments pH (test code = 2753-2) 7.38 Ionized calcium (test code = 1.06 mmol/L 1.11-1.32 L ) Lab Interpretation (test code = Abnormal 44296-7) [facility] MethodistHeparin PF4 antibody (IgG)2019-05-31 02:31:58 Test Item Value Reference Range Interpretation Comments Heparin PF4 Ab OD reading (test code 0.206 0.000-0.399 = 1500) Heparin PF4 Ab, IgG (test code = Negative Negative 14543-5) [facility] MethodistUs duplex arterial lower nvsqbqbzu0983-68-44 21:50:00Interface, Radiology Results In - 05/31/2019 9:03 AM [facility] Vascular Diagnostic Laboratory Physiologic Arterial Leg Report [address] [place] [address] Pat.Name: GABBY PEREZ Pat.ID: [id number] .Date: 05/30/2019 Refer.MD: AD QUINTERO MD Exam Time: 2:32:00 PM Study Type:Physiologic Leg Age: 1001/16/1940,79Y Sex: MALE Sonogrphr: Priti Recinos RVT Pat. Stat.:Inpatient Room: WT9-0905-A Tape Vol: RF, CPT - 4: 65917 Echo Event ID:[id number] Order ID: [id number] Reason for Study:Bilateral decreased pedal pulses. History of ESRD onHD via left AVFm CHFm AICD,aortic stenosis, cardiomyopathy, DMhypoxic respiratory failure, chronic trach, PAD.Procedures: Ankle/brachial pressures, Digit pressuresRace: B -----SUMMARY: ANKLE/BRACHIAL INDEX: RIGHT LEFT Brachial Artery Axbtdlor858 mmHg AV-Fistula DP 0 mmHg 0 mmHg [...] FINDINGS: Signed 05/30/2019 9:50:00 PMMarcellus Yung MD, RPVIMacomb Methodist ankle brachial ajvrb6082-87-93 21:50:00Interface, Radiology Results In - 05/30/2019 9:50 PM [facility] Vascular Diagnostic Laboratory Physiologic Arterial Leg Report [address] [address] Pat.Name: GABBY PEREZ Pat.ID: [id number] .Date: 05/30/2019 Refer.MD: AD QUINTERO MD Exam Time: 2:32:00 PM Study Type:Physiologic Leg Age: 1001/16/1940,79Y Sex: MALE Sonogrphr: Priti Recinos RVT Pat. Stat.:Inpatient Room: [address] Tape Vol: RF,CPT - 4: 07153 Echo Event ID:[id number] Order ID: [id number] Reason for Study:Bilateral decreased pedal pulses. History of ESRD onHD via left AVFm CHFm AICD,aortic stenosis, cardiomyopathy, DMhypoxic respiratory failure, chronic trach, PAD.Procedures: Ankle/brachial pressures, Digit pressuresRace: B -----SUMMARY: ANKLE/BRACHIAL INDEX: RIGHT LEFT Brachial Artery Qviqmgdi106 mmHg AV-Fistula DP 0 mmHg 0 mmHg [...] FINDINGS: Signed 05/30/2019 09:50 PMMarcellus Yung MD, RPVIMacomb MethodistUs duplex arterial upper oorppfzuz3019-65-20 17:50:00Interface, Radiology Results In - 05/30/2019 5:50 PM [facility] Vascular Ultrasound Laboratory Upper Extremity Arterial Report [address] [address]Lzc.Name: GABBY PEREZ Pat.ID: [id number] .Date: 05/30/2019 Refer.MD: AD QUINTERO MD Exam Time: 3:21:00 PM Study Type:UE Arterial Age: 1001/16/1940,79Y Sex: MALE Sonogrphr: PAUL Herrera. Stat.:Inpatient Room: [address] Vol: RF, CPT - 4: 318[address]Netj Event ID:[id number] Order ID: [id number] Reason for Study:Bilateral armpain and swelling. History [...] FINDINGS:- Signed 05/30/2019 05:50 Elizabeth Yung MD, RPVIHouencompass braintree rehabilitation [facility] TkeypnvdtATV0252-53-64 12:55:52 Test Item Value Reference Range Interpretation Comments LDH (test code = 60766-9) 267 U/L 87-225 H Lab Interpretation (test code = Abnormal 66937-1) [place] MethodistManual sdwnfrsbthly6257-80-07 06:07:32 Test Item Value Reference Range Interpretation Comments Manual differential (test code = PERFORMED 93296-7) Neutrophils (test code = 53718-9) 81.0 % 39-69 H Lymphocytes (test code = 92508-5) 10.0 % 25-45 L Monocytes (test code = 34934-4) 8.0 % 0-10 Eosinophils (test code = 01980-3) 1.0 % 0-5 Basophils (test code = 02617-2) 0.0 % 0-1 Metamyelocytes (test code = 740-1) 0 % Promyelocytes (test code = 783-1) 0 % Platelet slide review (test code = Decreased A 30828-7) Anisocytosis (test code = 702-1) Moderate Polychromasia (test code = Moderate 00430-9) Tear drop cells (test code = Occasional 7791-7) [place] cells (test code = 7790-9) Moderate A Enlarged platelets (test code = Moderate A 19900-9) Lab Interpretation (test code = Abnormal 55410-0) [place] MethodistT4, ryty2668-41-30 01:47:34 Test Item Value Reference Range Interpretation Comments T4, free (test code = 3024-7) 0.7 ng/dL 0.9-1.7 L Lab Interpretation (test code = Abnormal 27433-1) [place] MethodistThyroid stimulating qhmsqbb8332-59-35 01:47:34 Test Item Value Reference Range Interpretation Comments TSH (test code = 3016-3) 0.63 0.27- 4.20 uIU/mL [place] MethodistUric acid qihgq3885-02-02 01:19:56 Test Item Value Reference Range Interpretation Comments Uric acid (test code = 3084-1) 4.5 mg/dL 3.4-7 [place] MethodistHepatitis B surface itkyduq8516-29-84 16:11:47 Test Item Value Reference Range Interpretation Comments Hepatitis B surface Ag (test Non-reactive Non-reactive code = 5195-3) [facility] ChanceHemoglobin [id number] 10:29:18 Test Item Value Reference Range Interpretation Comments Hemoglobin A1C (test 6.5 % 4-5.6 H HbA1c c utoffs for code = 72558-5) diagnosing diabetes:4.0% - 5.6% = normal5.7% - 6.4% = increased risk for diabetes (prediabetes)9> =6.5% = jdzqpqnt3Otin s for glycemic contro l (ADA 2016)< 7.0% Ta rget for non adults with dwight betes. More or less stringent targe ts may be appropriate for individual lui ents. <7.5% Target for Children and adolescents wit h type 1 diabetes. Lab Interpretation (test Abnormal code = 29040-9) [facility]
[2019-10-30] MEDS ORDERED: FENTANYL CITR 100 MCG/2 ML ONE (12:32)
[2019-10-30] MEDS ORDERED: ONDANSETRON 4 MG/2 ML VIAL ONE (12:33)
--- NOTE | 2019-10-30 12:42 | RAD REPORT ---
EXAM DESCRIPTION: RAD - Chest Single View - 10/30/2019 12:31 pm CLINICAL HISTORY: COUGH Chest pain. COMPARISON: Chest Single View dated 05/27/2019; Chest Single View dated 05/25/2019; Chest Single View dated 05/24/2019; Chest Single View dated 05/23/2019 FINDINGS: Portable technique limits examination quality. Linear opacity is present in the left lung base which may represent atelectasis or mild infiltrate. T he heart is moderately enlarged. Multilead pacer/defibrillator device is present. Tracheostomy tube i s tip above the jamia. Left-sided subclavian stent is present.
--- NOTE | 2019-10-30 12:52 | ER ---
Nurse's Notes [facility] Name: Sergio Perez Age: 79 yrs Sex: Male : 1940 Arrival Date: 10/30/2019 Time: 11:43 Bed 4 Private MD: Diagnosis: Chest pain on breathing;Cardiomegaly;End stage renal disease-on HD , , Thu;Tracheostomy status;Type 2 diabetes mellitus;Atelectasis Presentation: 10/29 11:26 Chief complaint: EMS states: chest pain with coughing episodes that started yesterday. sv Pt reports that its a productive cough. BP 120/80 HR-96 95%RA. Coronavirus screen: Patient reports a cough. Patient denies shortness of breath or difficulty breathing. Patient denies measured and/or subjective temperature greater than 100.4F prior to today's visit. Patient denies travel on a cruise ship or to a country the [facility] currently [facility] as an affected area. Patient denies contact with known and/or suspected case of COVID-19. Proceed with normal triage. Patient instructed to continue to wear a mask when interacting with others. Patient moved to private room, placed in contact and droplet isolation with eye protection until further assessment. Ebola Screen: No symptoms or risks identified at this time. Initial Sepsis Screen: Does the patient meet any 2 criteria? No. Patient's initial sepsis screen is negative. Does the patient have a suspected source of infection? Yes: Productive cough/pneumonia. Risk Assessment: Do you want to hurt yourself or someone else? Patient reports no desire to harm self or others. Onset of symptoms was October 29, 2019. 11:26 Method Of Arrival: EMS: [facility] 11:26 Acuity: KARLENE 3 sv Triage Assessment: 11:26 General: Appears in no apparent distress. comfortable, well developed, Behavior is sv calm, cooperative, appropriate for age. Pain: Complains of pain in anterior aspect of right upper chest and anterior aspect of left upper chest Pain currently is 5 out of 10 on a pain scale. Pain began gradually, Is intermittent, episodic, Aggravated by coughing Noted to be grimacing. Neuro: Level of Consciousness is awake, alert, obeys commands, Oriented to person, place, time, situation, Moves all extremities. Full function. Cardiovascular: Patient's skin is warm and dry. Pulses are palpable in right radial artery and left radial artery Rhythm is atrial pacer with capture. Respiratory: Reports cough that is productive, persistent pain with cough Airway is patent Respiratory effort is even, unlabored, Respiratory pattern is regular, symmetrical. Derm: Skin is intact, Skin is pink, warm \T\ dry. Musculoskeletal: Range of motion: intact in all extremities. Historical: - Allergies: 11:47 Iodine; sv 11:47 SHELLFISH; sv - PMHx: 11:47 Anemia; CHF; COPD; Diabetes - NIDDM; Dialysis; M-W-F; ESRD; GERD; Gout; Hypertension; sv Pacemaker; with defib; - Immunization history:: Adult Immunizations up to date. - Family history:: not pertinent. - Social history:: Smoking status: Patient denies any tobacco usage or history of. Screenin:00 Abuse screen: Denies threats or abuse. Denies injuries from another. Nutritional sv screening: No deficits noted. Tuberculosis screening: No symptoms or risk factors identified. Fall Risk None identified. Assessment: 13:00 Reassessment: Patient appears in no apparent distress at this time. No changes from sv previously documented assessment. Patient and/or family updated on plan of care and expected duration. Pain level reassessed. Patient is alert, oriented x 3, equal unlabored respirations, skin warm/dry/pink. 14:53 Reassessment: Patient appears in no apparent distress at this time. No changes from sv previously documented assessment. Pt appears to be sleeping at this time. 15:42 Reassessment: Patient appears in no apparent distress at this time. No changes from sv previously documented assessment. 17:21 Reassessment: Patient appears in no apparent distress at this time. No changes from sv previously documented assessment. Patient and/or family updated on plan of care and expected duration. Pain level reassessed. Patient is alert, oriented x 3, equal unlabored respirations, skin warm/dry/pink. Vital Signs: 11:26 BP 99 / 54; Pulse 82; Resp 19; Temp 97.2; Pulse Ox 97% ; sv 12:30 BP 101 / 63; Pulse 84; Resp 18; Pulse Ox 96% on R/A; sv 13:30 Pain 1/10; sv 14:03 BP 99 / 70; Pulse 83; Resp 19; Pulse Ox 94% on R/A; sv 14:30 BP 117 / 70; Pulse 82; Resp 20; Pulse Ox 94% on R/A; sv 15:30 BP 124 / 68; Pulse 79; Resp 20; Pulse Ox 96% ; sv 16:30 BP 108 / 62; Pulse 80; Resp 20; Temp 98; Pulse Ox 96% on R/A; sv 17:30 BP 110 / 65; Pulse 79; Resp 18; Pulse Ox 97% ; sv ED Course: 11:26 Arm band placed on. sv 11:43 Patient arrived in ED. sv 11:43 Margo Greene, SHAI is Primary Nurse. sv 11:45 Mickey Bro MD is Attending Physician. tono 11:46 Triage completed. sv 12:00 Patient maintains SpO2 saturation greater than 95% on room air. sv 12:00 Patient has correct armband on for positive identification. Placed in gown. Bed in low sv position. Call light in reach. Side rails up X2. mill operator on. Pulse ox on. NIBP on. Door closed. Head of bed elevated. 12:11 XRAY Chest (1 view) Sent. sv 12:37 XRAY Chest (1 view) In Process Unspecified. EDMS 12:48 Radiology exam delayed due to PT BEING SUCTIONED \T\ THIS TIME. ANTONIO TO CALL WHEN PTS bq READY. 12:50 Garcia Salazar MD is Hospitalizing Provider. tono 13:00 Inserted saline lock: 24 gauge in right upper arm, using aseptic technique. Blood sv collected. Flushed right. 15:42 Awaiting bed assignment. sv 16:17 COVID-19 Sent. sv 16:17 CT Chest Wo Con Sent. sv 16:19 Awaiting bed assignment. sv 16:59 Garcia Salazar MD is Hospitalizing Provider. tono 17:21 No provider procedures requiring assistance completed. Patient admitted, IV remains in sv place. intact. Administered Medications: 13:01 Drug: Zofran (Ondansetron) 4 mg Route: IVP; Site: right upper arm; sv 13:30 Follow up: Response: No adverse reaction sv 13:03 Drug: fentaNYL (PF) 25 mcg {Note: rass1.} Route: IVP; Site: right upper arm; sv 13:30 Follow up: Pain 1/10 Adult; Response: No adverse reaction; Marked relief of symptoms; sv Pain is decreased; RASS: Light sedation (-2) Outcome: 12:51 Decision to Hospitalize by Provider. tono 17:01 Decision to Hospitalize by Provider. tono 17:10 Admitted to Tele accompanied by tech, via wheelchair, room 407, with chart, Report sv called to Jens GIBBONS 17:10 Condition: stable 17:10 Instructed on the need for admit. 17:48 Patient left the ED. sv Signatures: Dispatcher [employer] Margo Alcantar RN RN sv Anderson, Corey, MD MD cha Quilty, Betty bq Corrections: (The following items were deleted from the chart) 13:16 11:47 Allergies: Demerol; sv sv 13:16 11:47 Allergies: Meperidine; sv sv 17:48 16:30 BP 108 / 62; Pulse 80bpm; Resp 20bpm; Pulse Ox 96% RA; sv sv
--- NOTE | 2019-10-30 12:52 | EDPHYS ---
Physician Documentation [facility] Name: Sergio Perez Age: 79 yrs Sex: Male : 1940 Arrival Date: 10/30/2019 Time: 11:43 Bed 4 Private MD: ROMA Physician Mickey Bro HPI: 10/29 12:12 This 79 yrs old Black Male presents to ER via EMS with complaints of Cough, Chest Pain tono - with coughing only. 12:12 The patient or guardian reports cough. tono 12:13 The patient or guardian reports chest pain that is located primarily in the anterior [facility] chest wall. Onset: 2 day(s) ago. The pain does not radiate. Onset: The symptoms/episode began/occurred 2 day(s) ago. Severity of symptoms: At their worst the symptoms were. Modifying factors: The symptoms are alleviated by. Associated signs and symptoms: The patient has no apparent associated signs or symptoms. The chest pain is described as aching. Modifying factors: The symptoms are alleviated by remaining still, the symptoms are aggravated by cough. Historical: - Allergies: 11:47 Iodine; sv 11:47 SHELLFISH; sv - PMHx: 11:47 Anemia; CHF; COPD; Diabetes - NIDDM; Dialysis; M-W-F; ESRD; GERD; Gout; Hypertension; sv Pacemaker; with defib; - Immunization history:: Adult Immunizations up to date. - Family history:: not pertinent. - Social history:: Smoking status: Patient denies any tobacco usage or history of. ROS: 12:13 Constitutional: Negative for fever, chills, and weight loss, Eyes: Negative for injury, tono pain, redness, and discharge, ENT: Negative for injury, pain, and discharge, Neck: Negative for injury, pain, and swelling, Cardiovascular: Negative for chest pain, palpitations, and edema, Abdomen/GI: Negative for abdominal pain, nausea, vomiting, diarrhea, and constipation, Back: Negative for injury and pain, : Negative for injury, bleeding, discharge, and swelling, MS/Extremity: Negative for injury and deformity, Skin: Negative for injury, rash, and discoloration, Neuro: Negative for headache, weakness, numbness, tingling, and seizure, Psych: Negative for depression, anxiety, suicide ideation, homicidal ideation, and hallucinations, Allergy/Immunology: Negative for hives, rash, and allergies, Endocrine: Negative for neck swelling, polydipsia, polyuria, polyphagia, and marked weight changes, Hematologic/Lymphatic: Negative for swollen nodes, abnormal bleeding, and unusual bruising. 12:13 Respiratory: Positive for cough, pleurisy, of the chest. Exam: 12:13 Constitutional: This is a well developed, well nourished patient who is awake, alert, tono and in no acute distress. Head/Face: Normocephalic, atraumatic. Eyes: Pupils equal round and reactive to light, extra-ocular motions intact. Lids and lashes normal. Conjunctiva and sclera are non-icteric and not injected. Cornea within normal limits. Periorbital areas with no swelling, redness, or edema. ENT: Nares patent. No nasal discharge, no septal abnormalities noted. Tympanic membranes are normal and external auditory canals are clear. Oropharynx with no redness, swelling, or masses, exudates, or evidence of obstruction, uvula midline. Mucous membranes moist. Neck: Trachea midline, no thyromegaly or masses palpated, and no cervical lymphadenopathy. Supple, full range of motion without nuchal rigidity, or vertebral point tenderness. No Meningismus. Chest/axilla: Normal chest wall appearance and motion. Nontender with no deformity. No lesions are appreciated. Cardiovascular: Regular rate and rhythm with a normal S1 and S2. No gallops, murmurs, or rubs. Normal PMI, no JVD. No pulse deficits. Respiratory: Lungs have equal breath sounds bilaterally, clear to auscultation and percussion. No rales, rhonchi or wheezes noted. No increased work of breathing, no retractions or nasal flaring. Abdomen/GI: Soft, non-tender, with normal bowel sounds. No distension or tympany. No guarding or rebound. No evidence of tenderness throughout. Back: No spinal tenderness. No costovertebral tenderness. Full range of motion. Male : Normal genitalia with no discharge or lesions. Skin: Warm, dry with normal turgor. Normal color with no rashes, no lesions, and no evidence of cellulitis. MS/ Extremity: Pulses equal, no cyanosis. Neurovascular intact. Full, normal range of motion. Neuro: Awake and alert, GCS 15, oriented to person, place, time, and situation. Cranial nerves II-XII grossly intact. Motor strength 5/5 in all extremities. Sensory grossly intact. Cerebellar exam normal. Normal gait. Psych: Awake, alert, with orientation to person, place and time. Behavior, mood, and affect are within normal limits. Vital Signs: 11:26 BP 99 / 54; Pulse 82; Resp 19; Temp 97.2; Pulse Ox 97% ; sv 12:30 BP 101 / 63; Pulse 84; Resp 18; Pulse Ox 96% on R/A; sv 13:30 Pain 1/10; sv 14:03 BP 99 / 70; Pulse 83; Resp 19; Pulse Ox 94% on R/A; sv 14:30 BP 117 / 70; Pulse 82; Resp 20; Pulse Ox 94% on R/A; sv 15:30 BP 124 / 68; Pulse 79; Resp 20; Pulse Ox 96% ; sv 16:30 BP 108 / 62; Pulse 80; Resp 20; Temp 98; Pulse Ox 96% on R/A; sv 17:30 BP 110 / 65; Pulse 79; Resp 18; Pulse Ox 97% ; sv MDM: 11:45 Patient medically screened. [facility] 12:15 Data reviewed: vital signs, nurses notes, lab test result(s), EKG, radiologic studies, tono CT scan, plain films. 12:36 Differential diagnosis: abnormal EKG, anxiety, coronary artery disease chest wall pain, tono congestive heart failure esophagitis, gastroesophageal reflux disease (GERD), hiatal hernia, pulmonary embolus, stable angina, unstable angina. HEART Score: History: Slightly Suspicious (0), ECG: Non specific repolarization disturbance / LBTB / PM (1), Age: > or = 65 years (2), Risk Factors: > or = 3 Risk factors for atherosclerotic disease (2), [Hypercholesterolemia] [Hypertension] [DM] [+ Family HX] [Obesity] Troponin: < or = 1 x Normal Limit (0). Differential Diagnosis: Bronchitis Upper Respiratory Infection Sinusitis Pneumonia. The patient's deep vein thrombosis risk score was calculated as follows: the patients entire leg is swollen (1.0 Pts) Total Score: 1 to 2 points. This patient was found to be at moderate risk for a deep vein thrombosis by using the Well's assessment criteria. The patient's pulmonary embolism risk score was calculated as follows: patient has experienced immobilization or surgery in the last four weeks (1.5 Pts) Total Score: 0-2 points. This patient was found to be at low risk for a pulmonary embolism by using the Well's assessment criteria. HEBER Risk Score: 1 - patient's age is greater or equal to 65 years, 1 - Three or more CAD risk factors, 1- Known CAD, TOTAL SCORE = 3. Data interpreted: campus monitor: rate is 82 beats/min, rhythm is regular, Pulse oximetry: on room air is 97 %. Test interpretation: by ED physician or midlevel provider: ECG, plain radiologic studies. ED course: DW DR BERGMAN, WANTS TO OBS, TELE, CONT USUAL MEDS, IV PAIN MEDS. 10/29 11:50 Order name: Basic Metabolic Panel; Complete Time: 14:10 [facility] 10/29 11:50 Order name: CBC with Diff; Complete Time: 14:10 [facility] 10/29 11:50 Order name: LFT's; Complete Time: 14:10 [facility] 10/29 11:50 Order name: Magnesium; Complete Time: 14:10 [facility] 10/29 11:50 Order name: NT PRO-BNP; Complete Time: 14:10 [facility] 10/29 11:50 Order name: PT-INR; Complete Time: 14: [facility] 10/29 11:50 Order name: Troponin (emerg Dept Use Only); Complete Time: 14:10 [facility] 10/29 11:50 Order name: XRAY Chest (1 view); Complete Time: 14:10 [facility] 10/29 12:12 Order name: CT Chest Wo Con [facility] 10/29 13:57 Order name: CT; Complete Time: 14:10 [facility] 10/29 15:48 Order name: COVID-19 ss 10/29 17:19 Order name: CORONAVIRUS [facility] 10/29 11:50 Order name: EKG; Complete Time: 11:51 [facility] 10/29 11:50 Order name: Cardiac monitoring; Complete Time: 12:11 [facility] 10/29 11:50 Order name: EKG - Nurse/Tech; Complete Time: 12:11 [facility] 10/29 11:50 Order name: IV Saline Lock; Complete Time: 12:11 [facility] 10/29 11:50 Order name: Labs collected and sent; Complete Time: 12:12 [facility] 10/29 11:50 Order name: O2 Per Protocol; Complete Time: 12:12 [facility] 10/29 11:50 Order name: O2 Sat Monitoring; Complete Time: 12:12 tono 10/29 13:00 Order name: CONS Physician Consult EDMS Administered Medications: 13:01 Drug: Zofran (Ondansetron) 4 mg Route: IVP; Site: right upper arm; sv 13:30 Follow up: Response: No adverse reaction sv 13:03 Drug: fentaNYL (PF) 25 mcg {Note: rass1.} Route: IVP; Site: right upper arm; sv 13:30 Follow up: Pain / Adult; Response: No adverse reaction; Marked relief of symptoms; sv Pain is decreased; RASS: Light sedation (-2) Disposition: 10/30/19 17:01 Hospitalization ordered by Garcia Bergman for Observation. Preliminary diagnosis are Chest pain on breathing, Cardiomegaly, End stage renal disease - on HD M, W, Fri, Tracheostomy status, Type 2 diabetes mellitus, Atelectasis. - Bed requested for Telemetry/MedSurg (observation). - Status is Observation. sv - Condition is Stable. - Problem is new. - Symptoms have improved. Signatures: Dispatcher [employer] EDMS Margo Greene RN RN Erika Ortega RN RN dw Anderson, Corey, MD MD [facility] Corrections: (The following items were deleted from the chart) 13:16 11:47 Allergies: Demerol; sv sv 13:16 11:47 Allergies: Meperidine; sv sv 14:52 12:51 Hospitalization Ordered by A Martin CHOWDHURY for Observation. Preliminary diagnosis is tono Chest pain on breathing; End stage renal disease - ON HD; Tracheostomy status. Bed requested for Telemetry/MedSurg (observation). Status is Observation. Condition is Fair. Problem is new. Symptoms have improved. tono 16:51 14:52 10/30/2019 12:51 Hospitalization Ordered by A Martin CHOWDHURY for Observation. dw Preliminary diagnosis is Chest pain on breathing; End stage renal disease - ON HD; Tracheostomy status; Atelectasis. Bed requested for Telemetry/MedSurg (observation). Status is Observation. Condition is Fair. Problem is new. Symptoms have improved. tono 17:02 17:01 Hospitalization Ordered by A Mratin CHOWDHURY for Observation. Preliminary diagnosis is tono Chest pain on breathing; Cardiomegaly; End stage renal disease - on HD M, W, Fri; Tracheostomy status. Bed requested for Telemetry/MedSurg (observation). Status is Observation. Condition is Stable. Problem is new. Symptoms have improved. tono 17:03 17:02 10/30/2019 17:01 Hospitalization Ordered by A Martin CHOWDHURY for Observation. dw Preliminary diagnosis is Chest pain on breathing; Cardiomegaly; End stage renal disease - on HD M, W, Fri; Tracheostomy status; Type 2 diabetes mellitus; Atelectasis. Bed requested for Telemetry/MedSurg (observation). Status is Observation. Condition is Stable. Problem is new. Symptoms have improved. tono 17:48 17:03 10/30/2019 17:01 Hospitalization Ordered by A Martin CHOWDHURY for Observation. sv Preliminary diagnosis is Chest pain on breathing; Cardiomegaly; End stage renal disease - on HD M, W, Fri; Tracheostomy status; Type 2 diabetes mellitus; Atelectasis. Bed requested for Telemetry/MedSurg (observation). Status is Observation. Condition is Stable. Problem is new. Symptoms have improved. dw
[2019-10-30 13:19] LABS: Absolute Lymphocytes (CBC) 1.2 K/uL (0.7-4.9); Basophils % 0.6 % (0-1.3); Hematocrit 35.2 % (39.6-49.0); Lymphocytes % 11.9 % (15.3-44.8); MPV 9.6 fL (7.6-11.3); RBC Red Blood Cell Count 3.63 M/uL (4.33-5.43)
[2019-10-30 13:22] LABS: Protime INR 1.12
[2019-10-30 13:51] LABS: ALT/SGPT 14 U/L (12-78); AST/SGOT 15 U/L (15-37); Albumin 2.7 g/dL (3.4-5.0); Alkaline Phosphatase 134 U/L (45-117); BUN Blood Urea Nitrogen 21 mg/dL (7-18); Bicarbonate 26 mmol/L (21-32); Bilirubin Direct < 0.1 mg/dL (0-0.2); Bilirubin Total 0.3 mg/dL (0.2-1.0); Glucose Level 231 mg/dL (74-106); Magnesium 2.1 mg/dL (1.8-2.4); NT PRO-BNP 78786 pg/mL (<450); Potassium 4.4 mmol/L (3.5-5.1); Protein, Total 6.7 g/dL (6.4-8.2); Sodium Level 135 mmol/L (136-145); Troponin (Emerg Dept Use Only) 0.04 ng/mL (0.0-0.045)
--- NOTE | 2019-10-30 13:56 | RAD REPORT ---
EXAM DESCRIPTION: CT - Thorax Wo Con CLINICAL HISTORY: Chest pain PAIN COMPARISON: THORAX WO CONTRAST dated 03/20/2014 FINDINGS: Slight linear atelectasis is present in lung bases. No focal infiltrate suspected. No pleu ral thickening or pleural effusion. No pneumothorax. Tracheostomy is present with tip above the bridgette a. Postsurgical changes of a CABG noted. No axillary, mediastinal or hilar adenopathy. No concerning bony finding. No gross upper abdominal finding. All CT scans are performed using dose optimization technique as appropriate and may include automated exposure control or mA/KV adjustment according to patient size. IMPRESSION: No acute intrathoracic abnormality seen.
[2019-10-30] MEDS ORDERED: ACETAMINOPHEN 500 MG TAB PO PRN (17:59)
[2019-10-30] MEDS ORDERED: ONDANSETRON 4 MG/2 ML VIAL IV PRN (17:59)
[2019-10-30] MEDS ORDERED: MORPHINE 4 MG/ML SYR IV PRN (17:59)
[2019-10-30 18:24] VITALS: BMI 33.8
[2019-10-30] MEDS ORDERED: GLUCAGON 1 MG/VIAL IM PRN (18:48)
[2019-10-30] MEDS ORDERED: D50W 25 GM/50 ML SYRINGE/VIAL IV PRN (18:48)
[2019-10-30] MEDS: APIXABAN 2.5 MG TABLET PO SCH (21:27)
[2019-10-30] MEDS: INSULIN -REGULAR HUMAN 50 UNIT/0.5 ML ML SQ SCH (21:57)
--- NOTE | 2019-10-31 03:05 | CON ---
Date of Consultation: 10/30/2019 Additional Consulting Physician: Dr. Bro Reason For Consultation: Elevated BUN and creatinine, fluid management, end-stage renal disease. History Of Present Illness: This is an 79-year-old gentleman, well known to me from dialysis with si gnificant past medical history of end-stage renal disease, on hemodialysis, Thursday, Thursday, Thursday , and Thursday at [facility]; secondary hyperparathyroid; anemia of chronic kidne y disease; COPD, status post tracheostomy; congestive heart failure, advanced; COPD, obstructive slee p apnea, status post tracheostomy; pleural effusion. The patient was in his regular state of health. The patient came complaining of left side chest pain, found to have a clear effusion. The patient was admitted for further care. The patient denied any fever or chills. Chest x-ray showing over volume. For that reason, we have been consulted. When I saw the patient, t he patient on nasal cannula with a trach collar. The patient with no significant change in his respi ratory status. We will arrange for dialysis for the patient tomorrow. Past Medical History: 1.Coronary artery disease complicated with congestive heart failure. 2.Obstructive sleep apnea, COPD, status post tracheostomy. 3.End-stage renal disease, on hemodialysis 4 times a week. 4.Hyperlipidemia. Family History: Positive for hypertension and diabetes. Past Surgical History: Include tracheostomy, AV fistula. Allergies: TO CIPRO AND IODINE. Review of Systems: Head and Neck: No red eye. No ear pain. GI: No nausea. No vomiting. : No polyuria. No dysuria. No hematuria. [employer] Tube Bender: Not applicable. Respiratory: He has shortness of breath. He has cough. Cardiovascular: He has orthopnea. Endocrine: No polydipsia. Skin: No rash. Neurologic: He has neuropathy. Musculoskeletal: Low back pain. Physical Examination: Vital Signs: When I saw the patient, blood pressure of 93/58, pulse of 76. Chest: Faint rales on the bilateral base. Heart: S1, S2. Systolic murmur. Abdomen: Soft, nontender. Extremities: +1 edema. Neurologic: Alert and oriented x3. Nonfocal. Laboratory Data: Chest x-ray showed cardiomegaly with congestion. WBC 9.8, H and H 10.8/35.2, plate lets 162. Sodium 135, potassium 4.4, bicarb 26, BUN 21, creatinine 5.5, calcium 8.3. BNP 78,000. Medications: Home medications include: 1.Breathing treatment. 2.Protonix. 3.Renvela. 4.Midodrine. Assessment And Plan: 1.End-stage renal disease with over volume. We will arrange for the patient for dialysis tomorrow. We will challenge the patient. 2.Hypotension. Resume midodrine before dialysis and we will arrange for the patient to have dialysi s on sodium module. 3.Hyponatremia, going to be corrected on dialysis. 4.Anemia of chronic kidney disease. Resume JAIRO. 5.Coronary artery disease with congestive heart failure. We will try to establish better volume con trol on the dialysis. 6.Pleural effusion and chest pain. We will follow up with the primary. GERI Voice ID: [id number] Report ID: [id number]
[2019-10-31 04:00] LABS: Absolute Lymphocytes (CBC) 0.9 K/uL (0.7-4.9); Basophils % 0.6 % (0-1.3); Hematocrit 37.1 % (39.6-49.0); Lymphocytes % 7.6 % (15.3-44.8); MPV 10.6 fL (7.6-11.3); RBC Red Blood Cell Count 3.83 M/uL (4.33-5.43)
[2019-10-31 04:19] LABS: Albumin 2.7 g/dL (3.4-5.0); Phosphorus 3.7 mg/dL (2.5-4.9); Potassium 4.4 mmol/L (3.5-5.1)
[2019-10-31 05:28] LABS: Blood Morphology Comment NOT SEEN (NOT SEEN); Platelet Estimate ADEQ; Urine White Blood Cell Casts OK
[2019-10-31] MEDS: INSULIN -REGULAR HUMAN 50 UNIT/0.5 ML ML SQ SCH ×3 (07:30→16:30)
[2019-10-31] MEDS: APIXABAN 2.5 MG TABLET PO SCH (09:07)
[2019-10-31] MEDS ORDERED: MORPHINE 2 MG/ML SYR IV PRN (09:42)
[2019-10-31 14:45] VITALS: O2SAT 99
[2019-10-31] MEDS ORDERED: ALBUMIN HUMAN 25% 50 ML IV PRN (16:20)
[2019-10-31 20:05] VITALS: BP 107/54; TEMP 97.3
--- NOTE | 2019-11-01 01:12 | PN ---
Date of Progress Note: 10/31/2019 Chief Complaint: End-stage renal disease, on dialysis. History Of Present Illness: The patient presents to the hospital because of shortness of breath. He was found to have hyponatremia, fluid overload, and pleural effusion. He was complaining of chest p ain. Dialysis was done today to obtain negative fluid balance and control congestive heart failure. The patient is on p.o. fluid restriction for hyponatremia and fluid overload. The patient is dialys is dependent. He has end-stage renal disease. He has been dialyzed 4 times per week on Thursday, , Thursday and Thursday at [facility]. The patient has history of COPD, status po st tracheostomy, congestive heart failure, acute on chronic systolic and diastolic dysfunction. Review of Systems: Denies PND or orthopnea. Denies chest pain. Physical Examination: Lungs: Diminished breath sounds at bases. Heart: S1 and S2. Abdomen: Soft, benign. Extremities: Edema present in both legs. Impression And Plan: 1.Congestive heart failure, systolic and diastolic dysfunction, acute on chronic and congestive hear t failure exacerbated by fluid overload. BNP is elevated up to 78,000. 2.The patient has history of end-stage renal disease. Continue dialysis. The patient will have mid odrine for dialysis to prevent intradialytic hypotension. 3.Anemia due to chronic kidney disease, resume JAIRO. 4.Coronary artery disease and congestive heart failure. The patient will have troponin level to rul e out acute myocardial infarction. 5.Pleural effusion and chest pain, per primary team and Cardiology. 6.Hypotension, chronic intradialytic hypotension. Adjust ultrafiltration goal to prevent low blood pressure. EB/MODL Voice ID: [id number] Report ID: [id number]
--- NOTE | 2019-11-01 05:51 | SS ---
Date of Discharge: 10/31/2019 Chief Complaint: Cough and chest pain. History Of Present Illness: This is an 79-year-old male patient with multiple comorbidities, came into emergency room with few days' history of cough and chest pain in the center of the chest that is only associated with the coughing. He coughs up some thick white to yellow colored mucus, and the patient has been having this problem for last 4-5 days. Denies any fever, chills, nausea, or vomiting. After he came into emergency room, he was evaluated in the ER and admitted to the hospital. This morning when I saw him, he was feeling better, denied any other new complaints. Allergies: TO IODINE AND DEMEROL. Medications: List reviewed. Review of Systems: Respiratory: As mentioned above. All other systems reviewed and negative. Social History: Negative for smoking and alcohol use. Family History: Significant for asthma, hypertension and breast cancer. Past Surgical History: AICD placement in 2014, tracheostomy placement many years ago. Past Medical History: Significant for end-stage renal disease, on hemodialysis; COPD; chronic systolic congestive heart failure with reduced ejection fraction; anemia due to chronic kidney disease; type 2 diabetes mellitus; obstructive sleep apnea; allergic rhinitis; coronary artery disease; osteoarthritis at multiple sites; diverticulosis; cervical spondylosis with radiculopathy; gastroesophageal reflux disease; aortic stenosis; and right foot osteomyelitis. Physical Examination: Vital Signs: Height 5 feet 11 inches, weight 242 pounds, temperature 97.7, pulse 71, respiratory rate 16, blood pressure 94/56, oxygen saturation 100%. General: Awake, alert, oriented, not in distress. HEENT: Head atraumatic, normocephalic. Conjunctivae nonerythematous. Sclerae white. Mouth, no thrush or edema noted. Ears/Nose, no mass, lesion, discharge noted. Neck: Supple. No JVD, lymph nodes, bruit, thyromegaly noted. Lungs: Bilateral good equal air entry. Clear to auscultation. No rhonchi. No rales. Heart: Normal heart sounds, no murmur or gallop. Abdomen: Soft, bowel sounds normal. No guarding, rigidity, tenderness, mass, hepatosplenomegaly, distention, or bruit noted. Extremities: Bilateral grade 1 edema, chronic and unchanged. Skin: No rash, ulcer, cellulitis. Lymphatics: No lymph node enlargement in neck, supraclavicular, infraclavicular region. Neuro: No focal neurological deficit. Chest: Unremarkable. External Genitalia: Deferred. Rectal: Deferred. Laboratory Data: Yesterday; white count 9.8, hemoglobin 10.8, and platelets 162. Today; white count 12.2, hemoglobin 11.3, and platelets 155. Yesterday; sodium 135, potassium 4.4, chloride 100, bicarb 26, BUN 21, creatinine 5.51, and glucose 231. Liver function tests unremarkable. Troponin 0.04 on the first set, second set 0.02, third set 0.03. This morning; sodium 138, potassium 4.4, chloride 101, bicarb 26, BUN 28, creatinine 6.41, and glucose 170. CAT scan of the chest, no acute cardiopulmonary changes. Chest x-ray, no acute intrathoracic changes. Hospital Course: After the patient was evaluated in the ER, he was admitted to the hospital and was ruled out with serial cardiac enzymes. This morning, the patient was doing fine and medically stable for discharge. Chest pain is atypical in nature and we will go ahead and discharge him to go home with instruction to continue all home medications and to take cefuroxime 250 mg every other day for total of 5 doses and on dialysis days, the patient to take it after dialysis. Final Diagnoses: 1. Chest pain, atypical. 2. End-stage renal disease, on hemodialysis. 3. Anemia due to chronic kidney disease. 4. Congestive heart failure, chronic, systolic. 5. Chronic obstructive pulmonary disease. 6. Type 2 diabetes mellitus. 7. Obstructive sleep apnea. 8. Allergic rhinitis. 9. Coronary artery disease. 10. Osteoarthritis, multiple sites. 11. Diverticulosis. 12. Gastroesophageal reflux disease. 13. Aortic stenosis. ODESSA/MODL Voice ID: [id number] Report ID: [id number] ABEL
== END 2019-10-31 20:20 | disposition home or self-care (01) ==
LOC: ER 11:29 → ERHOLD 13:02 → 4TH 15:57 → ERHOLD 15:59 → 4TH 17:12
PROVIDERS: ADMIT Internal Medicine; ATTEND Internal Medicine
DX: R07.89 Other chest pain (principal); I13.2 Hypertensive heart and chronic kidney disease with heart failure and with stage 5 chronic kidney disease, or end stage renal disease; I50.43 Acute on chronic combined systolic (congestive) and diastolic (congestive) heart failure; J90 Pleural effusion, not elsewhere classified; I95.3 Hypotension of hemodialysis; E87.1 Hypo-osmolality and hyponatremia; R05 Cough; Z20.828 Contact with and (suspected) exposure to other viral communicable diseases; E11.22 Type 2 diabetes mellitus with diabetic chronic kidney disease; N18.6 End stage renal disease; D63.1 Anemia in chronic kidney disease; J44.9 Chronic obstructive pulmonary disease, unspecified; G47.33 Obstructive sleep apnea (adult) (pediatric); J30.9 Allergic rhinitis, unspecified; I25.10 Atherosclerotic heart disease of native coronary artery without angina pectoris; M15.9 Polyosteoarthritis, unspecified; K57.90 Diverticulosis of intestine, part unspecified, without perforation or abscess without bleeding; K21.9 Gastro-esophageal reflux disease without esophagitis; I35.0 Nonrheumatic aortic (valve) stenosis; Z99.2 Dependence on renal dialysis; Z95.810 Presence of automatic (implantable) cardiac defibrillator; Z93.0 Tracheostomy status
CPT/HCPCS: 85025 ×2; 80048; 36415; 83735; 85610; 82947 ×5; 80076; 80069; 84484 ×3; 83880; 71250; 71045; 96375; 96374; 99285; U0002; J3010; J1644 ×2; P9047; J2405; G0378 ×3

== ENCOUNTER 2019-11-04 06:47 | Day surgery (SDC) | payer OTHER, MEDICARE ==
--- NOTE | 2019-11-02 14:53 | RAD REPORT ---
EXAM DESCRIPTION: Zhanna Lino And Marilee (2 Views)11/02/2019 2:39 pm CLINICAL HISTORY: Hypertension/preop COMPARISON: 2018 FINDINGS: The lungs appear clear of acute infiltrate. The heart is mildly enlarged. Pacemaker leads are in place. Tracheostomy tube in place IMPRESSION: No acute abnormalities displayed
[2019-11-02 15:17] LABS: Absolute Lymphocytes (CBC) 1.4 K/uL (0.7-4.9); Basophils % 1.7 % (0-1.3); Hematocrit 37.8 % (39.6-49.0); Lymphocytes % 17.1 % (15.3-44.8); MPV 10.1 fL (7.6-11.3)
[2019-11-02 16:04] LABS: Potassium 3.9 mmol/L (3.5-5.1)
--- OUTSIDE RECORDS SUMMARY | 2019-11-04 06:52 | XMS REPORT | Clinical Summary ---
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 Overview: Added automatically from request for saud carrizalesy [id number] Chest pain 07/22/2017 Overview: Added automatically from request for saud carrizalesy [id number] Angina pectoris 07/21/2017 Coronary artery disease of [place] artery of [place] hea rt with stable 07/21/2017 angina pectoris [...] Dx); MD Susan Coronary artery disease involving [place] coronary artery of [place] heart without angina pectoris after 11/03/2018 Family History Relation Name Status Comments Father [...] Comments Blood Pressure 131/59 06/09/2019 6:00 PM SHELL SIEVE OPERATOR Pulse 86 06/09/2019 7:30 PM SHELL SIEVE OPERATOR Temperature 36.7 C (98 F) 06/09/2019 5:00 PM SHELL SIEVE OPERATOR Respiratory Rate 22 06/09/2019 7:30 PM SHELL SIEVE OPERATOR Oxygen Saturation 100% 06/09/2019 7:16 PM SHELL SIEVE OPERATOR Inhaled Oxygen Concentration - - Weight 124 kg (274 lb 7.6 oz) 06/09/2019 6:00 AM SHELL SIEVE OPERATOR Height 180.3 cm (5' 11") 05/28/2019 9:15 AM SHELL SIEVE OPERATOR Body Mass Index 38.28 05/28/2019 9:15 AM SHELL SIEVE OPERATOR Plan of Treatment Health Maintenance Due Date Last Done Comments DIABETIC RETINAL EYE EXAM 1940 DIABETIC FOOT EXAM 01/12/1950 URINE MICROALBUMIN 01/12/1949 SHINGLES VACCINES (#1) 01/12/1989 65+ PNEUMOCOCCAL VACCINE (1 of 2 - PCV13) 01/13/2004 INFLUENZA VACCINE 11/12/2019 Implants Implanted Type Area Supervisor Self Service Store Device Shelf Model / Identifier Expiration Serial / Date Lot Device Vasclr Clsr Vasoactive Intstnl Peptd 8fr Angio- Seal - [id number] Cardiovascular N/A: 06/10/2017 [id number] / Implanted: 08/07/2016 at [facility] (Quantity not on file) Implants N/A / [id number] Stent Bili Protege Everflex Slf-Xpndbl 120cm [id number] - [id number] Coronary Stents N/A: EV3 [employer] 05/03/2017 [id number] 12 0 / Implanted: 08/07/2016 at [facility] (Quantity not on file) N/A / [id number] Procedures Procedure Name Priority Date/Time Associated Comments Diagnosis POC GLUCOSE Routine 06/09/2019 4:35 Results for this PM SHELL SIEVE OPERATOR procedure are i n the results section. POC GLUCOSE Routine 06/09/2019 12:23 Results for this PM SHELL SIEVE OPERATOR procedure are i n the results section. POC GLUCOSE Routine 06/09/2019 11:19 Results for this AM SHELL SIEVE OPERATOR procedure are i n the results section. POC GLUCOSE Routine 06/09/2019 8:08 Results for this AM SHELL SIEVE OPERATOR procedure are i n the results section. POC GLUCOSE Routine 06/09/2019 5:00 Results for this AM SHELL SIEVE OPERATOR procedure are i n the results section. HC COMPLETE BLD COUNT Routine 06/09/2019 4:45 Re sults for this W/AUTO DIFF AM SHELL SIEVE OPERATOR procedure are i n the results section. PARTIAL THROMBOPLASTIN Routine 06/09/2019 4:45 R esults for this TIME (PTT) AM SHELL SIEVE OPERATOR procedure are i n the results section. POC GLUCOSE Routine 06/09/2019 2:07 Results for this AM SHELL SIEVE OPERATOR procedure are i n the results section. POC GLUCOSE Routine 06/08/2019 8:30 Results for this PM SHELL SIEVE OPERATOR procedure are i n the results section. POC GLUCOSE Routine 06/08/2019 5:13 Results for this PM SHELL SIEVE OPERATOR procedure are i n the results section. HEMODIALYSIS Routine 06/08/2019 3:06 PM SHELL SIEVE OPERATOR XR CHEST 1 VW PORTABLE Routine 06/08/2019 12:32 R esults for this PM SHELL SIEVE OPERATOR procedure are i n the results section. POC GLUCOSE Routine 06/08/2019 12:07 Results for this PM SHELL SIEVE OPERATOR procedure are i n the results section. POC GLUCOSE Routine 06/08/2019 7:38 Results for this AM SHELL SIEVE OPERATOR procedure are i n the results section. ESTIMATED GFR Routine 06/08/2019 5:50 Results fo r this AM SHELL SIEVE OPERATOR procedure are i n the results section. PHOSPHORUS LEVEL Routine 06/08/2019 5:50 Results for this AM SHELL SIEVE OPERATOR procedure are i n the results section. MAGNESIUM LEVEL Routine 06/08/2019 5:50 Results for this AM SHELL SIEVE OPERATOR procedure are i n the results section. BASIC METABOLIC PANEL Routine 06/08/2019 5:50 Re sults for this AM SHELL SIEVE OPERATOR procedure are i n the results section. HC COMPLETE BLD COUNT Routine 06/08/2019 5:50 Re sults for this W/AUTO DIFF AM SHELL SIEVE OPERATOR procedure are i n the results section. PARTIAL THROMBOPLASTIN Routine 06/08/2019 5:50 R esults for this TIME (PTT) AM SHELL SIEVE OPERATOR procedure are i n the results section. POC GLUCOSE Routine 06/08/2019 4:26 Results for this AM SHELL SIEVE OPERATOR procedure are i n the results section. POC GLUCOSE Routine 06/08/2019 12:18 Results for this AM SHELL SIEVE OPERATOR procedure are i n the results section. POC GLUCOSE Routine 06/07/2019 8:16 Results for this PM SHELL SIEVE OPERATOR procedure are i n the results section. POC GLUCOSE Routine 06/07/2019 4:22 Results for this PM SHELL SIEVE OPERATOR procedure are i n the results section. POC GLUCOSE Routine 06/07/2019 3:50 Results for this PM SHELL SIEVE OPERATOR procedure are i n the results section. POC GLUCOSE Routine 06/07/2019 11:39 Results for this AM SHELL SIEVE OPERATOR procedure are i n the results section. ARTERIAL BLOOD GAS Routine 06/07/2019 11:34 Resul ts for this AM SHELL SIEVE OPERATOR procedure are i n the results section. HEMODIALYSIS Routine 06/07/2019 10:44 AM SHELL SIEVE OPERATOR POC GLUCOSE Routine 06/07/2019 7:42 Results for this AM SHELL SIEVE OPERATOR procedure are i n the results section. US DUPLEX VENOUS LOWER Routine 06/07/2019 6:20 R esults for this EXTREMITY BILATERAL AM SHELL SIEVE OPERATOR procedur e are in the results section. POC GLUCOSE Routine 06/07/2019 4:27 Results for this AM SHELL SIEVE OPERATOR procedure are i n the results section. CBC HEMOGRAM Routine 06/07/2019 3:50 Results for this AM SHELL SIEVE OPERATOR procedure are i n the results section. PARTIAL THROMBOPLASTIN Routine 06/07/2019 3:50 R esults for this TIME (PTT) AM SHELL SIEVE OPERATOR procedure are i n the results section. POC GLUCOSE Routine 06/07/2019 12:19 Results for this AM SHELL SIEVE OPERATOR procedure are i n the results section. POC GLUCOSE Routine 06/06/2019 8:19 Results for this PM SHELL SIEVE OPERATOR procedure are i n the results section. POC GLUCOSE Routine 06/06/2019 6:13 Results for this PM SHELL SIEVE OPERATOR procedure are i n the results section. OCCULT BLOOD, STOOL Routine 06/06/2019 5:50 Resu lts for this PM SHELL SIEVE OPERATOR procedure are i n the results section. POC GLUCOSE Routine 06/06/2019 2:46 Results for this PM SHELL SIEVE OPERATOR procedure are i n the results section. POC GLUCOSE Routine 06/06/2019 12:21 Results for this PM SHELL SIEVE OPERATOR procedure are i n the results section. POC GLUCOSE Routine 06/06/2019 8:00 Results for this AM SHELL SIEVE OPERATOR procedure are i n the results section. POC GLUCOSE Routine 06/06/2019 4:29 Results for this AM SHELL SIEVE OPERATOR procedure are i n the results section. ESTIMATED GFR Routine 06/06/2019 3:35 Results fo r this AM SHELL SIEVE OPERATOR procedure are i n the results section. PARTIAL THROMBOPLASTIN Routine 06/06/2019 3:35 R esults for this TIME (PTT) AM SHELL SIEVE OPERATOR procedure are i n the results section. COMPREHENSIVE METABOLIC Routine 06/06/2019 3:35 Results for this PANEL AM SHELL SIEVE OPERATOR procedure are i n the results section. PHOSPHORUS LEVEL Routine 06/06/2019 3:35 Results for this AM SHELL SIEVE OPERATOR procedure are i n the results section. MAGNESIUM LEVEL Routine 06/06/2019 3:35 Results for this AM SHELL SIEVE OPERATOR procedure are i n the results section. HC COMPLETE BLD COUNT Routine 06/06/2019 3:35 Re sults for this W/AUTO DIFF AM SHELL SIEVE OPERATOR procedure are i n the results section. POC GLUCOSE Routine 06/06/2019 12:25 Results for this AM SHELL SIEVE OPERATOR procedure are i n the results section. ARTERIAL BLOOD GAS STAT 06/05/2019 9:42 Resul ts for this PM SHELL SIEVE OPERATOR procedure are i n the results section. POC GLUCOSE Routine 06/05/2019 8:16 Results for this PM SHELL SIEVE OPERATOR procedure are i n the results section. POC GLUCOSE Routine 06/05/2019 5:20 Results for this PM SHELL SIEVE OPERATOR procedure are i n the results section. POC GLUCOSE Routine 06/05/2019 4:15 Results for this PM SHELL SIEVE OPERATOR procedure are i n the results section. POC GLUCOSE Routine 06/05/2019 12:10 Results for this PM SHELL SIEVE OPERATOR procedure are i n the results section. XR CHEST 1 VW PORTABLE Routine 06/05/2019 8:59 R esults for this AM SHELL SIEVE OPERATOR procedure are i n the results section. POC GLUCOSE Routine 06/05/2019 8:18 Results for this AM SHELL SIEVE OPERATOR procedure are i n the results section. ESTIMATED GFR Routine 06/05/2019 4:20 Results fo r this AM SHELL SIEVE OPERATOR procedure are i n the results section. PARTIAL THROMBOPLASTIN Routine 06/05/2019 4:20 R esults for this TIME (PTT) AM SHELL SIEVE OPERATOR procedure are i n the results section. COMPREHENSIVE METABOLIC Routine 06/05/2019 4:20 Results for this PANEL AM SHELL SIEVE OPERATOR procedure are i n the results section. PHOSPHORUS LEVEL Routine 06/05/2019 4:20 Results for this AM SHELL SIEVE OPERATOR procedure are i n the results section. MAGNESIUM LEVEL Routine 06/05/2019 4:20 Results for this AM SHELL SIEVE OPERATOR procedure are i n the results section. HC COMPLETE BLD COUNT Routine 06/05/2019 4:20 Re sults for this W/AUTO DIFF AM SHELL SIEVE OPERATOR procedure are i n the results section. POC GLUCOSE Routine 06/05/2019 4:18 Results for this AM SHELL SIEVE OPERATOR procedure are i n the results section. POC GLUCOSE Routine 06/05/2019 12:57 Results for this AM SHELL SIEVE OPERATOR procedure are i n the results section. TRANSFUSE RED BLOOD Routine 06/04/2019 10:32 CELLS PM SHELL SIEVE OPERATOR TRANSFUSE RED BLOOD Routine 06/04/2019 9:21 CELLS PM SHELL SIEVE OPERATOR POC GLUCOSE Routine 06/04/2019 8:57 Results for this PM SHELL SIEVE OPERATOR procedure are i n the results section. POC GLUCOSE Routine 06/04/2019 4:48 Results for this PM SHELL SIEVE OPERATOR procedure are i n the results section. PARTIAL THROMBOPLASTIN Timed 06/04/2019 3:15 R esults for this TIME (PTT) PM SHELL SIEVE OPERATOR procedure are i n the results section. POC GLUCOSE Routine 06/04/2019 12:13 Results for this PM SHELL SIEVE OPERATOR procedure are i n the results section. XR CHEST 1 VW PORTABLE Routine 06/04/2019 10:45 R esults for this AM SHELL SIEVE OPERATOR procedure are i n the results section. CBC HEMOGRAM Routine 06/04/2019 8:44 Results for this AM SHELL SIEVE OPERATOR procedure are i n the results section. POC GLUCOSE Routine 06/04/2019 7:39 Results for this AM SHELL SIEVE OPERATOR procedure are i n the results section. HEMODIALYSIS Routine 06/04/2019 7:32 AM SHELL SIEVE OPERATOR SMEAR REVIEW Routine 06/04/2019 5:50 Results for this AM SHELL SIEVE OPERATOR procedure are i n the results section. ESTIMATED GFR Routine 06/04/2019 5:50 Results fo r this AM SHELL SIEVE OPERATOR procedure are i n the results section. PARTIAL THROMBOPLASTIN Routine 06/04/2019 5:50 R esults for this TIME (PTT) AM SHELL SIEVE OPERATOR procedure are i n the results section. COMPREHENSIVE METABOLIC Routine 06/04/2019 5:50 Results for this PANEL AM SHELL SIEVE OPERATOR procedure are i n the results section. PHOSPHORUS LEVEL Routine 06/04/2019 5:50 Results for this AM SHELL SIEVE OPERATOR procedure are i n the results section. MAGNESIUM LEVEL Routine 06/04/2019 5:50 Results for this AM SHELL SIEVE OPERATOR procedure are i n the results section. HC COMPLETE BLD COUNT Routine 06/04/2019 5:50 Re sults for this W/AUTO DIFF AM SHELL SIEVE OPERATOR procedure are i n the results section. POC GLUCOSE Routine 06/04/2019 4:19 Results for this AM SHELL SIEVE OPERATOR procedure are i n the results section. POC GLUCOSE Routine 06/04/2019 12:27 Results for this AM SHELL SIEVE OPERATOR procedure are i n the results section. ANTI XA, UNFRACTIONATED Routine 06/03/2019 11:20 Results for this PM SHELL SIEVE OPERATOR procedure are i n the results section. CBC HEMOGRAM Routine 06/03/2019 11:20 Results for this PM SHELL SIEVE OPERATOR procedure are i n the results section. PARTIAL THROMBOPLASTIN Routine 06/03/2019 11:20 R esults for this TIME (PTT) PM SHELL SIEVE OPERATOR procedure are i n the results section. PROTHROMBIN TIME WITH Routine 06/03/2019 11:20 Re sults for this INR PM SHELL SIEVE OPERATOR procedure are i n the results section. POC GLUCOSE Routine 06/03/2019 8:05 Results for this PM SHELL SIEVE OPERATOR procedure are i n the results section. CT ANGIOGRAM PE CHEST STAT 06/03/2019 7:51 Re sults for this PM SHELL SIEVE OPERATOR procedure are i n the results section. POC GLUCOSE Routine 06/03/2019 4:44 Results for this PM SHELL SIEVE OPERATOR procedure are i n the results section. ECG 12-LEAD STAT 06/03/2019 2:44 Results for this PM SHELL SIEVE OPERATOR procedure are i n the results section. D-DIMER Routine 06/03/2019 2:43 Results for this PM SHELL SIEVE OPERATOR procedure are i n the results section. XR CHEST 1 VW PORTABLE STAT 06/03/2019 2:38 R esults for this PM SHELL SIEVE OPERATOR procedure are i n the results section. RESPIRATORY PATHOGEN Routine 06/03/2019 2:36 Res ults for this PANEL PM SHELL SIEVE OPERATOR procedure are i n the results section. ARTERIAL BLOOD GAS STAT 06/03/2019 1:48 Resul ts for this PM SHELL SIEVE OPERATOR procedure are i n the results section. POC GLUCOSE Routine 06/03/2019 12:18 Results for this PM SHELL SIEVE OPERATOR procedure are i n the results section. XR CHEST 1 VW PORTABLE Timed 06/03/2019 10:58 R esults for this AM SHELL SIEVE OPERATOR procedure are i n the results section. POC GLUCOSE Routine 06/03/2019 8:05 Results for this AM SHELL SIEVE OPERATOR procedure are i n the results section. POC GLUCOSE Routine 06/03/2019 6:16 Results for this AM SHELL SIEVE OPERATOR procedure are i n the results section. ESTIMATED GFR Routine 06/03/2019 3:30 Results fo r this AM SHELL SIEVE OPERATOR procedure are i n the results section. BASIC METABOLIC PANEL Routine 06/03/2019 3:30 Re sults for this AM SHELL SIEVE OPERATOR procedure are i n the results section. HC COMPLETE BLD COUNT Routine 06/03/2019 3:30 Re sults for this W/AUTO DIFF AM SHELL SIEVE OPERATOR procedure are i n the results section. POC GLUCOSE Routine 06/03/2019 3:03 Results for this AM SHELL SIEVE OPERATOR procedure are i n the results section. POC GLUCOSE Routine 06/02/2019 10:08 Results for this PM SHELL SIEVE OPERATOR procedure are i n the results section. POC GLUCOSE Routine 06/02/2019 8:23 Results for this PM SHELL SIEVE OPERATOR procedure are i n the results section. POC GLUCOSE Routine 06/02/2019 4:39 Results for this PM SHELL SIEVE OPERATOR procedure are i n the results section. ARTERIAL BLOOD GAS STAT 06/02/2019 3:25 Resul ts for this PM SHELL SIEVE OPERATOR procedure are i n the results section. XR CHEST 1 VW PORTABLE STAT 06/02/2019 3:20 R esults for this PM SHELL SIEVE OPERATOR procedure are i n the results section. TRANSFUSE RED BLOOD Routine 06/02/2019 3:17 CELLS PM SHELL SIEVE OPERATOR POC GLUCOSE Routine 06/02/2019 1:34 Results for this PM SHELL SIEVE OPERATOR procedure are i n the results section. PREPARE RBC Routine 06/02/2019 8:34 Results for this AM SHELL SIEVE OPERATOR procedure are i n the results section. PREPARE RBC Routine 06/02/2019 8:34 Results for this AM SHELL SIEVE OPERATOR procedure are i n the results section. TYPE AND SCREEN Routine 06/02/2019 8:34 Results for this AM SHELL SIEVE OPERATOR procedure are i n the results section. CBC HEMOGRAM Routine 06/02/2019 5:20 Results for this AM SHELL SIEVE OPERATOR procedure are i n the results section. POC GLUCOSE Routine 06/01/2019 10:56 Results for this PM SHELL SIEVE OPERATOR procedure are i n the results section. POC GLUCOSE Routine 06/01/2019 9:44 Results for this PM SHELL SIEVE OPERATOR procedure are i n the results section. HEMODIALYSIS Routine 06/01/2019 5:08 PM SHELL SIEVE OPERATOR POC GLUCOSE Routine 06/01/2019 5:04 Results for this PM SHELL SIEVE OPERATOR procedure are i n the results section. CV PYP SCAN FOR CARDIAC Routine 06/01/2019 3:12 Results for this AMYLOIDOSIS PM SHELL SIEVE OPERATOR procedure are i n the results section. POC GLUCOSE Routine 06/01/2019 12:04 Results for this PM SHELL SIEVE OPERATOR procedure are i n the results section. ECG 12-LEAD STAT 06/01/2019 11:32 Results for this AM SHELL SIEVE OPERATOR procedure are i n the results section. XR CHEST 1 VW PORTABLE STAT 06/01/2019 11:20 R esults for this AM SHELL SIEVE OPERATOR procedure are i n the results section. POC GLUCOSE Routine 06/01/2019 7:50 Results for this AM SHELL SIEVE OPERATOR procedure are i n the results section. ESTIMATED GFR Routine 06/01/2019 5:20 Results fo r this AM SHELL SIEVE OPERATOR procedure are i n the results section. BASIC METABOLIC PANEL Routine 06/01/2019 5:20 Re sults for this AM SHELL SIEVE OPERATOR procedure are i n the results section. KAPPA LAMBDA FREE LIGHT Routine 06/01/2019 5:20 Results for this CHAIN WITH RATIO AM SHELL SIEVE OPERATOR procedure a re in the results section. POC GLUCOSE Routine 05/31/2019 9:16 Results for this PM SHELL SIEVE OPERATOR procedure are i n the results section. ECG 12-LEAD STAT 05/31/2019 5:44 Results for this PM SHELL SIEVE OPERATOR procedure are i n the results section. ESTIMATED GFR STAT 05/31/2019 5:33 Results fo r this PM SHELL SIEVE OPERATOR procedure are i n the results section. MAGNESIUM LEVEL STAT 05/31/2019 5:33 Results for this PM SHELL SIEVE OPERATOR procedure are i n the results section. BASIC METABOLIC PANEL STAT 05/31/2019 5:33 Re sults for this PM SHELL SIEVE OPERATOR procedure are i n the results section. POC GLUCOSE Routine 05/31/2019 4:58 Results for this PM SHELL SIEVE OPERATOR procedure are i n the results section. CT CARDIAC CALCIUM Routine 05/31/2019 3:35 Resul ts for this SCORE PM SHELL SIEVE OPERATOR procedure are i n the results section. POC GLUCOSE Routine 05/31/2019 12:29 Results for this PM SHELL SIEVE OPERATOR procedure are i n the results section. HEMODIALYSIS Routine 05/31/2019 9:45 AM SHELL SIEVE OPERATOR POC GLUCOSE Routine 05/31/2019 7:59 Results for this AM SHELL SIEVE OPERATOR procedure are i n the results section. CBC HEMOGRAM Routine 05/31/2019 4:10 Results for this AM SHELL SIEVE OPERATOR procedure are i n the results section. T3, FREE Routine 05/31/2019 4:10 Results for this AM SHELL SIEVE OPERATOR procedure are i n the results section. ESTIMATED GFR Routine 05/31/2019 12:00 Results fo r this AM SHELL SIEVE OPERATOR procedure are i n the results section. PHOSPHORUS LEVEL Routine 05/31/2019 12:00 Results for this AM SHELL SIEVE OPERATOR procedure are i n the results section. IONIZED CALCIUM Routine 05/31/2019 12:00 Results for this AM SHELL SIEVE OPERATOR procedure are i n the results section. MAGNESIUM LEVEL Routine 05/31/2019 12:00 Results for this AM SHELL SIEVE OPERATOR procedure are i n the results section. BASIC METABOLIC PANEL Routine 05/31/2019 12:00 Re sults for this AM SHELL SIEVE OPERATOR procedure are i n the results section. POC GLUCOSE Routine 05/30/2019 8:56 Results for this PM SHELL SIEVE OPERATOR procedure are i n the results section. TTE COMPLETE, WO Routine 05/30/2019 7:00 Results for this CONTRAST, W DOPPLER PM SHELL SIEVE OPERATOR procedur e are in ([id number]) the results section. POC GLUCOSE Routine 05/30/2019 5:24 Results for this PM SHELL SIEVE OPERATOR procedure are i n the results section. US DUPLEX ARTERIAL STAT 05/30/2019 5:00 Resul ts for this UPPER EXTREMITY PM SHELL SIEVE OPERATOR procedure ar e in BILATERAL the results section. US ANKLE BRACHIAL INDEX Routine 05/30/2019 3:30 Results for this PM SHELL SIEVE OPERATOR procedure are i n the results section. US DUPLEX ARTERIAL Routine 05/30/2019 3:30 Resul ts for this LOWER EXTREMITY PM SHELL SIEVE OPERATOR procedure ar e in BILATERAL the results section. POC GLUCOSE Routine 05/30/2019 11:29 Results for this AM SHELL SIEVE OPERATOR procedure are i n the results section. ARTERIAL BLOOD GAS Routine 05/30/2019 11:24 Resul ts for this AM SHELL SIEVE OPERATOR procedure are i n the results section. LDH Routine 05/30/2019 11:05 Results for this AM SHELL SIEVE OPERATOR procedure are i n the results section. POC GLUCOSE Routine 05/30/2019 7:30 Results for this AM SHELL SIEVE OPERATOR procedure are i n the results section. XR CHEST 1 VW PORTABLE Routine 05/30/2019 4:10 R esults for this AM SHELL SIEVE OPERATOR procedure are i n the results section. POC GLUCOSE Routine 05/30/2019 3:58 Results for this AM SHELL SIEVE OPERATOR procedure are i n the results section. ESTIMATED GFR Routine 05/30/2019 12:50 Results fo r this AM SHELL SIEVE OPERATOR procedure are i n the results section. PHOSPHORUS LEVEL Routine 05/30/2019 12:50 Results for this AM SHELL SIEVE OPERATOR procedure are i n the results section. MAGNESIUM LEVEL Routine 05/30/2019 12:50 Results for this AM SHELL SIEVE OPERATOR procedure are i n the results section. IONIZED CALCIUM Routine 05/30/2019 12:50 Results for this AM SHELL SIEVE OPERATOR procedure are i n the results section. BASIC METABOLIC PANEL Routine 05/30/2019 12:50 Re sults for this AM SHELL SIEVE OPERATOR procedure are i n the results section. T4, FREE Routine 05/30/2019 12:50 Results for this AM SHELL SIEVE OPERATOR procedure are i n the results section. THYROID STIMULATING Routine 05/30/2019 12:50 Resu lts for this HORMONE AM SHELL SIEVE OPERATOR procedure are i n the results section. URIC ACID LEVEL Routine 05/30/2019 12:50 Results for this AM SHELL SIEVE OPERATOR procedure are i n the results section. MANUAL DIFFERENTIAL Routine 05/30/2019 12:20 Resu lts for this AM SHELL SIEVE OPERATOR procedure are i n the results section. CBC WITH PLATELET AND Routine 05/30/2019 12:20 Re sults for this DIFFERENTIAL AM SHELL SIEVE OPERATOR procedure are i n the results section. POC GLUCOSE Routine 05/29/2019 11:45 Results for this PM SHELL SIEVE OPERATOR procedure are i n the results section. POC GLUCOSE Routine 05/29/2019 7:47 Results for this PM SHELL SIEVE OPERATOR procedure are i n the results section. POC GLUCOSE Routine 05/29/2019 4:16 Results for this PM SHELL SIEVE OPERATOR procedure are i n the results section. POC GLUCOSE Routine 05/29/2019 11:23 Results for this AM SHELL SIEVE OPERATOR procedure are i n the results section. HEPARIN PF4 ANTIBODY Routine 05/29/2019 9:41 Res ults for this (IGG) AM SHELL SIEVE OPERATOR procedure are i n the results section. POC GLUCOSE Routine 05/29/2019 7:36 Results for this AM SHELL SIEVE OPERATOR procedure are i n the results section. XR CHEST 1 VW PORTABLE Routine 05/29/2019 4:02 R esults for this AM SHELL SIEVE OPERATOR procedure are i n the results section. POC GLUCOSE Routine 05/29/2019 4:00 Results for this AM SHELL SIEVE OPERATOR procedure are i n the results section. ECG 12-LEAD Routine 05/29/2019 3:42 Results for this AM SHELL SIEVE OPERATOR procedure are i n the results section. HC COMPLETE BLD COUNT Routine 05/29/2019 1:00 Re sults for this W/AUTO DIFF AM SHELL SIEVE OPERATOR procedure are i n the results section. ESTIMATED GFR Routine 05/29/2019 12:33 Results fo r this AM SHELL SIEVE OPERATOR procedure are i n the results section. PHOSPHORUS LEVEL Routine 05/29/2019 12:33 Results for this AM SHELL SIEVE OPERATOR procedure are i n the results section. MAGNESIUM LEVEL Routine 05/29/2019 12:33 Results for this AM SHELL SIEVE OPERATOR procedure are i n the results section. IONIZED CALCIUM Routine 05/29/2019 12:33 Results for this AM SHELL SIEVE OPERATOR procedure are i n the results section. BASIC METABOLIC PANEL Routine 05/29/2019 12:33 Re sults for this AM SHELL SIEVE OPERATOR procedure are i n the results section. HC COMPLETE BLD COUNT Routine 05/29/2019 12:00 Re sults for this W/AUTO DIFF AM SHELL SIEVE OPERATOR procedure are i n the results section. POC GLUCOSE Routine 05/28/2019 11:52 Results for this PM SHELL SIEVE OPERATOR procedure are i n the results section. POC GLUCOSE Routine 05/28/2019 8:25 Results for this PM SHELL SIEVE OPERATOR procedure are i n the results section. POC GLUCOSE Routine 05/28/2019 4:33 Results for this PM SHELL SIEVE OPERATOR procedure are i n the results section. HEPATITIS B SURFACE Routine 05/28/2019 1:50 Resu lts for this ANTIGEN PM SHELL SIEVE OPERATOR procedure are i n the results section. POC GLUCOSE Routine 05/28/2019 11:30 Results for this AM SHELL SIEVE OPERATOR procedure are i n the results section. HEMODIALYSIS Routine 05/28/2019 11:17 AM SHELL SIEVE OPERATOR HC COMPLETE BLD COUNT Routine 05/28/2019 10:05 Re sults for this W/AUTO DIFF AM SHELL SIEVE OPERATOR procedure are i n the results section. XR CHEST 1 VW PORTABLE Routine 05/28/2019 10:02 R esults for this AM SHELL SIEVE OPERATOR procedure are i n the results section. CONSULT CARDIAC REHAB Routine 05/28/2019 9:42 PHASE 1 AM SHELL SIEVE OPERATOR ECG 12-LEAD STAT 05/28/2019 9:42 Results for this AM SHELL SIEVE OPERATOR procedure are i n the results section. HEMOGLOBIN A1C Routine 05/28/2019 9:41 Results f or this AM SHELL SIEVE OPERATOR procedure are i n the results section. ESTIMATED GFR Routine 05/28/2019 9:41 Results fo r this AM SHELL SIEVE OPERATOR procedure are i n the results section. TYPE AND SCREEN Routine 05/28/2019 9:41 Results for this AM SHELL SIEVE OPERATOR procedure are i n the results section. PARTIAL THROMBOPLASTIN Routine 05/28/2019 9:41 R esults for this TIME (PTT) AM SHELL SIEVE OPERATOR procedure are i n the results section. PROTHROMBIN TIME WITH Routine 05/28/2019 9:41 Re sults for this INR AM SHELL SIEVE OPERATOR procedure are i n the results section. IONIZED CALCIUM Routine 05/28/2019 9:41 Results for this AM SHELL SIEVE OPERATOR procedure are i n the results section. PHOSPHORUS LEVEL Routine 05/28/2019 9:41 Results for this AM SHELL SIEVE OPERATOR procedure are i n the results section. MAGNESIUM LEVEL Routine 05/28/2019 9:41 Results for this AM SHELL SIEVE OPERATOR procedure are i n the results section. BASIC METABOLIC PANEL Routine 05/28/2019 9:41 Re sults for this AM SHELL SIEVE OPERATOR procedure are i n the results section. POC GLUCOSE Routine 05/28/2019 9:39 Results for this AM SHELL SIEVE OPERATOR procedure are i n the results section. after 11/03/2018 Results POC glucose (06/09/2019 4:35 PM SHELL SIEVE OPERATOR)Only the most recent of74 resultswithin the time period is included. Pathologist Sig nature POC glucose 238 (H) 65 - 99 mg/dL [facility] Comment: HOSPITAL [employer] Specialist Name: Veena Ortiz Device ID: [id number] Chartable: [facility] Notified RN Specimen Performing Organization Address City/State/Zipcode Phone Number [facility] DEPARTMENT OF PATHOLOGY AND [address] [place] [address] GENOMIC MEDICINE [address] [address] Partial thromboplastin time, activated (06/09/2019 4:45 AM SHELL SIEVE OPERATOR)Only the most recent of9 resultswithin the time period is included. PTT 52.8 (H) 23.0 - 36.0 [facility] Comment: sec HOSPITAL PTT therapeutic range for unfractionated heparin is 61.0-112.0 seconds which corresponds to Anti-Xa 0.3-0.7 U/ml. Specimen Blood Performing Organization Address [facility] Phone Number [facility] DEPARTMENT OF PATHOLOGY AND [address] [place], [place] [address] GENOMIC MEDICINE [facility] [address] [place] [address] CBC with platelet and differential (06/09/2019 4:45 AM SHELL SIEVE OPERATOR)Only the most recent of10 resultswithin the time period is included. WBC 11.21 (H) 4.50 - 11.00 [facility] k/uL HOSPITAL RBC 3.04 (L) 4.40 - 6.00 [facility] m/[facility] HGB 8.5 (L) 14.0 - 18.0 [facility] g/dL [facility] HCT 29.7 (L) 41.0 - 51.0 % [facility] MCV 97.7 82.0 - 100.0 [facility] MCH 28.0 27.0 - 34.0 pg [facility] MCHC 28.6 (L) 31.0 - 37.0 [facility] RDW - SD 63.7 (H) 37.0 - 55.0 fL [facility] MPV 12.5 8.8 - 13.2 fL [facility] Platelet count 127 (L) 150 - 400 k/uL [facility] Nucleated RBC 0.00 /100 WBC [facility] Neutrophils 78.6 (H) 39.0 - 69.0 % [facility] Lymphocytes 8.8 (L) 25.0 - 45.0 % [facility] Monocytes 10.9 (H) 0.0 - 10.0 % [facility] Eosinophils 1.1 0.0 - 5.0 % [facility] Basophils 0.2 0.0 - 1.0 % [facility] Immature granulocytes 0.4Comment: 0.0 - 1.0 % [facility] "Immature HOSPITAL granulocytes" (promyelocytes , myelocytes, metamyelocytes ) Specimen Blood Performing Organization Address City/[facility] Phone Number [facility] DEPARTMENT OF PATHOLOGY AND [address] [place], [place] [address] GENOMIC MEDICINE [facility] [address] [place] [address] XR Chest 1 Vw Portable (06/08/2019 12:32 PM SHELL SIEVE OPERATOR)Only the most recent of10 resultswithin the time [...] Bones: Regional osseous structures appea r stable. [id number] Procedure Note [facility], Radiology Results Incoming - 06/08/2019 12:48 PM SHELL SIEVE OPERATOR EXAMINATION: XR CHEST 1 VW PORTABLE CLINICAL [...] Bones: Regional osseous structures appea r stable. [id number] Performing Organization Address City/State/Zipcode Phone Number [facility] [address] [place] [address] Estimated GFR (06/08/2019 5:50 AM SHELL SIEVE OPERATOR)Only the most recent of11 resultswithin the time period is included. Estimated GFR 14 (A) mL/min/1.73 [facility] Comment: m2 HOSPITAL Catergory Units Interpretation [...] 2014. Specimen Plasma specimen Performing Organization Address [facility] Hospital[facility]i Phone Number [facility] DEPARTMENT OF PATHOLOGY AND [address] [place] [address] Phosphorus level (06/08/2019 5:50 AM SHELL SIEVE OPERATOR)Only the most recent of8 resultswithin the time period is included. Pathologist Sig [facility] Phosphorus 2.5 2.4 - 4.5 mg/dL [facility] L Specimen Plasma specimen Performing Organization Address [facility] Phone Number [facility] DEPARTMENT OF PATHOLOGY AND [address] [place] [address] [address] Magnesium level (06/08/2019 5:50 AM SHELL SIEVE OPERATOR)Only the most recent of9 resultswithin the time period is included. Pathologist Sig [facility] Magnesium 2.3 1.6 - 2.4 mg/dL [facility] Specimen Plasma specimen Performing Organization Address [facility] Phone Number [facility] DEPARTMENT OF PATHOLOGY AND [address] [place] [address] [address] [address] Basic metabolic panel (06/08/2019 5:50 AM SHELL SIEVE OPERATOR)Only the most recent of8 results within the time period is included. Pathologist Sig nature Sodium 135 135 - 148 mEq/L [facility] Potassium 4.2 3.5 - 5.0 mEq/L [facility] Chloride 97 (L) 98 - 112 mEq/L [facility] CO2 26 24 - 31 mEq/L [facility] Anion gap 12@ANIO 7 - 15 mEq/L [facility] BUN 31 (H) 8 - 23 mg/dL [facility] Creatinine 4.21 (H) 0.70 - 1.20 mg/dL [facility] Glucose 117 (H) 65 - 99 mg/dL [facility] Calcium 9.0 8.8 - 10.2 mg/dL [facility] Specimen Plasma specimen Performing Organization Address City/[facility] Hospitalcode Phone Number [facility] DEPARTMENT OF PATHOLOGY AND [address] [place] [address] Arterial blood gas (06/07/2019 11:34 AM SHELL SIEVE OPERATOR)Only the most recent of5 results within the time period is included. [facility] Sig nature pH, arterial 7.38 7.35 - 7.45 [facility] pCO2, arterial 50 (H) 35 - 45 mmHg [facility] pO2, arterial 76 (L) 80 - 90 mmHg [facility] Bicarbonate, 28.8 (H) 21.0 - 28.0 [facility] mmol/L [facility] Base excess, 4 (H) -2 - 2 mEq/L [facility] O2 saturation, 95 95 - 100 % [facility] Specimen Blood Performing Organization Address City/[facility] Hospitalcode Phone Number [facility] DEPARTMENT OF PATHOLOGY AND [address] [place] [address] Us duplex venous lower extremity (06/07/2019 6:20 AM SHELL SIEVE OPERATOR) Specimen Narrative Performed At [facility] V[facility] U ltrasound Laboratory Lower Extr emity Venous Report [address] [place] [address] Pat.Name: DILLON PEREZ Pat.ID: [id number] .Date: 06/07/2019 Refer.MD: KIMBERLY KHANNA MD Exam Time: 4:51:00 AM Study Type:L E Venous Age: 1001/16/1940,79Y Sex: MALE Sonogrphr: Jamal Lira, BA, BS, RDMS, RVT Pat. Stat.:Inpatient Room: [address] Tape V ol: ZENAIDA, CPT - 4: 01079 Echo Rhea nt ID:[id number] Order ID: [id number] Reason for Study:Evaluate for DVT. Patie nt [...] Radiology Results In - 2019 8:11 AM [facility] Vascular Ultrasound Laboratory Lower Extremity Veno us Report [address] [facility], [facility] [address] , [place] [address] Pat.Name: DILLON PEREZ Pat.I D: [id number] .Date: 06/07/2019 Refer .MD: KIMBERLY KHANNA MD Exam Time: 4:51:00 AM Study Type:LE Venous Age: 1001/16/1940,79Y Sex: MALE Sonogrphr: Jamal Lira, BA, BS, RDMS, RVT Pat. Stat.:Inpatient Room: [address] Vol: ZENAIDA, CPT - 4: [address] Echo Event ID:[id number] Order ID: [id number] Reason for Study:Evaluate for DVT. Cata nt [...] Performing Organization Address City/State/Zipcode Phone Number [facility] [address] [place] [address] CBC hemogram (06/07/2019 3:50 AM SHELL SIEVE OPERATOR)Only the most recent of5 resultswithin the time period is included. [facility] Sig nature WBC 16.21 (H) 4.50 - 11.00 k/uL [facility] RBC 3.35 (L) 4.40 - 6.00 m/uL [facility] HGB 9.6 (L) 14.0 - 18.0 g/dL [facility] HCT 32.4 (L) 41.0 - 51.0 % [facility] MCV 96.7 82.0 - 100.0 fL [facility] MCH 28.7 27.0 - 34.0 pg [facility] MCHC 29.6 (L) 31.0 - 37.0 g/dL [facility] RDW - SD 64.8 (H) 37.0 - 55.0 fL [facility] MPV 12.3 8.8 - 13.2 [facility] Platelet count 132 (L) 150 - 400 k/uL [facility] Nucleated RBC 0.00 /100 WBC [facility] Specimen Blood Performing Organization Address City/[facility] Hospitalcode Phone Number [facility] DEPARTMENT OF PATHOLOGY AND [address] [place] [address] [address] [address] Occult blood, stool (06/06/2019 5:50 PM SHELL SIEVE OPERATOR) [facility] Occult blood, Negative for occult blood. [facility] stool Comment: HOSPITAL Specimen Information Specimen Source: Stool Specimen Site: Nonpreserved Specimen Stool - Nonpreserved Performing Organization Address [facility] Hospital[facility] Phone Number [facility] DEPARTMENT OF PATHOLOGY AND [address] [place] [address] [place] [address] Comprehensive metabolic panel (06/06/2019 3:35 AM SHELL SIEVE OPERATOR)Only the most recent of3 resultswithin the time period is included. [facility] Sodium 136 135 - 148 [facility] mEq/L [facility] Potassium 4.7 3.5 - 5.0 [facility] mEq/L [facility] Chloride 96 (L) 98 - 112 mEq/L [facility] CO2 25 24 - 31 mEq/L [facility] Anion gap 15@ANIO 7 - 15 mEq/L [facility] BUN 38 (H) 8 - 23 mg/dL [facility] Creatinine 4.73 (H) 0.70 - 1.20 [facility] mg/dL HOSPITAL Glucose 77 65 - 99 mg/dL [facility] Calcium 8.7 (L) 8.8 - 10.2 [facility] mg/dL [facility] Protein 6.4 6.3 - 8.3 g/dL [facility] Comment: HOSPITAL Mmhxtjn6729.6-7.0 g/dL 1 uguw8211.4-7.6 g/dL 7 months-4zbga328.1-7.3 g/dL 1-2 .6-7.5 g/dL >3 jokhg309.0-8.0 g/dL 18-6618283.3-8.3 g/dL Albumin 2.4 (L) 3.5 - 5.0 g/dL [facility] A/G ratio 0.6 (L) 0.7 - 3.8 [facility] Alkaline phosphatase 77 40 - 129 U/L [facility] AST 10 10 - 50 U/L [facility] ALT 15 5 - 50 U/L [facility] Total bilirubin 0.5 0.0 - 1.2 [facility] mg/dL HOSPITAL Specimen Plasma specimen Performing Organization Address City/[facility]/Zipcode Phone Number [facility] DEPARTMENT OF PATHOLOGY AND [address] [place] [address] Transfuse RBC (06/04/2019 10:32 PM SHELL SIEVE OPERATOR)Only the most recent of3 resultswithin the time period is included.Smear review (06/04/2019 5:50 AM SHELL SIEVE OPERATOR) Pathologist Sig nature Platelet slide review Trell slt decr [facility] Anisocytosis Moderate [facility] Polychromasia Moderate [facility] Ovalocytes Moderate [facility] Specimen Performing Organization Address [facility] Phone Number [facility] DEPARTMENT OF PATHOLOGY AND [address] [place] [address] [address] [address] Prothrombin time with INR (06/03/2019 11:20 PM SHELL SIEVE OPERATOR)Only the most recent of2 resultswithin the time period is included. Prothrombin time 14.8 (H) 11.5 - 14.5 [facility] INR 1.2 [facility] Comment: [facility] International Normalized Ratio (INR) is a [facility] HOSPITAL monitoring tool for patients who are stable on oral anticoagulant therapy. An INR of 2.0-3.0 is suggested for deep vein thrombosis/pulmonary embolism. Specimen Blood Performing Organization Address City/[facility] Hospitalcode Phone Number [facility] DEPARTMENT OF PATHOLOGY AND [address] [place] [address] [place] [address] Anti Xa, unfractionated (06/03/2019 11:20 PM SHELL SIEVE OPERATOR) Anti Xa, <0.10 (L)Comment: 0.30 - 0.70 [facility] unfractionated Therapeutic Range: U/mL [facility] 0.30 - 0.70 U/mL HOSPITAL Specimen Blood Performing Organization Address City/State/Zipcode Phone Number [facility] DEPARTMENT OF PATHOLOGY AND [address] [place], [place] [address] GENOMIC MEDICINE [facility] [address] [place] [address] CT Angiogram Pe Chest (06/03/2019 7:51 PM SHELL SIEVE OPERATOR) Specimen Narrative Performed At EXAMINATION: RADIANT CT [...] at 8:00 PM, and she expressed understanding [facility]-[id number] Procedure Note Interface, Radiology Results Incoming - 06/03/2019 8:04 PM SHELL SIEVE OPERATOR EXAMINATION: CT ANGIOGRAM PE CHEST CLINICAL HISTORY:79 [...] at 8:00 PM, and she expressed understanding [facility]-[id number] Performing Organization Address City/[facility] Phone Number [facility]ITALPlaydate [facility] [address] [place] [address] ECG 12 lead (06/03/2019 2:44 PM SHELL SIEVE OPERATOR)Only the most recent of5 resultswithin the time period is included. Pathologist Sig nature Ventricular rate 115 [facility]USE Atrial rate 115 [facility] [place] interval 114 [facility] M[facility] QRSD interval 154 [...] is no t available. Performing Organization Address [facility] Phone Number [employer] [address] [place] [address] D-dimer (06/03/2019 2:43 PM SHELL SIEVE OPERATOR) [facility] D-dimer 1.73 (H) 0.00 - 0.40 [facility] Comment: ug/mL [facility] Units are [...] Blood Performing Organization Address City/State/Zipcode Phone Number [facility] DEPARTMENT OF PATHOLOGY AND [address] [place] [address] [address] GENOM[address] [address] Respiratory pathogen panel (06/03/2019 2:36 PM SHELL SIEVE OPERATOR) [facility] Respiratory Positive for Influenza A/H1-2009 virus [facility] pathogen panel [facility] Negative for all other pathogens tested: HOSPITAL [...] Specimen Nares - Right Performing Organization Address [facility]/Zipcode Phone Number [facility] DEPARTMENT OF PATHOLOGY AND [address] [place] [address] [phone] [address] Prepare RBC, 2 Units (06/02/2019 8:34 AM SHELL SIEVE OPERATOR)Only the most recent of2 results within the time period is included. Product name Apheresis Red Cell [facility] AS3 #1 [facility] Unit number [id number] [facility] Product code [id number] [facility] Dispense status Transfused [facility] Blood expiration date [id number] [facility] Blood type code 5100 [facility] Blood type O POSITIVE [facility] Compatibility Compatible [facility] Product name Apheresis Red Cell [facility] AS3 #2 [facility] Unit number [id number] [facility] Product code [id number] [facility] Dispense status Transfused [facility] Blood expiration date [facility] Blood type code 5100 [facility] Blood type O POSITIVE [facility] Compatibility Compatible [facility] Specimen Blood Performing Organization Address [facility] Hospitalcode Phone Number [facility] DEPARTMENT OF PATHOLOGY AND [address] [place] [address] [address] Type and screen (06/02/2019 8:34 AM SHELL SIEVE OPERATOR)Only the most recent of2 resultswithin the time period is included. Pathologist Sig nature ABO grouping O [facility] Rh type POS [facility] Antibody screen (gel) NEG [facility] Specimen Blood Performing Organization Address City/[facility]/Zipcode Phone Number [facility] DEPARTMENT OF PATHOLOGY AND [address] [place] [address] [address] [address] Cv pyp scan for cardiac amyloidosis (06/01/2019 3:12 PM SHELL SIEVE OPERATOR) Specimen Narrative Performed At This result has an attachment that is no t available. [facility] Nuclear Cardiology and Card iac CT [address] [facility] [address], [place] [address] PYP Cardiac Amyloidosis Imagin g Report Pat.Name: DILLON PEREZ at.ID: [id number] .Date: 06/01/2019 Refer.MD: ASCENCION QUINTERO MD Exam Time: 11:24:00 AM Study Type:PYP Cardiac Amyloidosis Imaging Height: 71in Weight: 266lb BSA: 2.38 m2 Age: 1001/16/1940,79Y Sex: MALE Nuclear Tech:Jenni Mendiola [facility], [facility](N) Pat. Stat.:Inpatient Nuclear Event ID:[id number] Order ID: [id number] Reason for Study:R/O TTR amyloid History / [...] Radiology Results In - 2019 3:40 PM [facility] Nuclear Cardiology and Cardiac CT [address] [place] [address] PYP Cardiac Amyloidosis Imaging Report Pat.Name: DILLON PEREZ Pat.I D: [id number] .Date: 06/01/2019 Refer .MD: ASCENCION QUINTERO MD Exam Time: 11:24:00 AM Study Type:PYP Cardiac Amyloidosis Imagi ng Height: 71in Weigh t: 266lb BSA: 2.38 m2 Age: 1001/16/1940,79Y Sex: MALE Nuclear Tech:ALLIE Tavares, ARRT(N) Pat. Stat.:Inpatient Nucle ar Event ID:[id number] Order ID: [id number] Reason for Study:R/O TTR amyloid History / [...] PM Mohan Saucedo MD Performing Organization Address [facility] Hospitalcode Phone Number [facility] [address] [place] [address] [place] lambda free light chain with ratio (06/01/2019 5:20 AM SHELL SIEVE OPERATOR) Pathologist [facility] nature [place] light chain 289.08 (H) 3.30 - 19.40 [facility] mg/L [facility] Lambda light chain 143.97 (H) 5.70 - 26.30 [facility] mg/L [facility] [place] lambda ratio 2.01 (H) 0.26 - 1.65 [facility] Specimen Plasma specimen Performing Organization Address [facility] Phone Number [facility] DEPARTMENT OF PATHOLOGY AND [address] [place] [phone] GENOMIC MEDICINE [address] [address] [address] cardiac calcium score (05/31/2019 3:35 PM SHELL SIEVE OPERATOR) Specimen Narrative Performed At [facility] Cardi ology and Cardiac CT [address] [place] [address], [place], [place] [address] CT Calc ium Scoring Report Pat.Name: DILLON PEREZ Pat.ID: [id number] .Date: 05/31/2019 Refer.MD: ASCENCION QUINTERO MD Exam Time: 3:04:00 PM Study Type:C T Calcium Scoring Height: 71in Weight: 266lb BSA: 2.38 m2 Ag e: 1940,79Y Sex: MALE HR: 92 bpm Nuclear Tech:Ayo Aviles, RT(NM)(CT), PROCESS ARTIST/Abdiel Billings [facility] Pat. Stat.:Inpatient Nuclear Event ID:[id number] Order ID: [id number] Reason for Study:Eval Aortic Valve Procedures: CT [...] Radiology Results In - 2019 7:15 PM [facility] Nuclear Cardiology and Cardiac CT [address] [place] [address] CT Calcium Scoring Report Pat.Name: DILLON PEREZ Pat.I D: [id number] .Date: 05/31/2019 Refer .MD: ASCENCION QUINTERO MD Exam Time: 3:04:00 PM Study Type:CT Calcium Scoring Height: 71in Weigh t: 266lb BSA: 2.38 m2 Age: 1001/16/1940,79Y Sex: MALE HR: 92 bpm Nuclear Tech:Ayo Aviles RT(NM)(CT), [facility]/Abdiel Billings [facility] Pat. Stat.:Inpatient Nuclear Event ID:[id number] Order ID: [id number] Reason for Study:Eval Aortic Valve Procedures: CT [...] PM Beny Weiss MD Performing Organization Address City/[facility]/Zipcode Phone Number [facility] [address] [place] [address] T3, free (05/31/2019 4:10 AM SHELL SIEVE OPERATOR) Pathologist Sig nature T3, free 1.1 (L) 2.4 - 4.2 pg/mL [facility] Comment: REFERENCE INTERVAL: Triiodothyronine, Free (Free T3) Access complete set of age- and/or gender-specific ref erence intervals for this test in the [employer] [facility] Test Di rectory ([employer]). Performed by [employer], [address] [place] [id number] [email or web address], Jared Foster MD, Lab. Director Specimen Serum Performing Organization Address [facility] Hospitalcode Phone Number [facility] [address] [place] [address] [facility] [address] [place] [address] Ionized calcium (05/31/2019 12:00 AM SHELL SIEVE OPERATOR)Only the most recent of4 resultswithin the time period is included. Pathologist Sig nature pH 7.38 [facility] Ionized calcium 1.06 (L) 1.11 - 1.32 [facility] mmol/L HOSPITAL Specimen Plasma specimen Performing Organization Address [facility] Hospital[facility] Phone Number [facility] DEPARTMENT OF PATHOLOGY AND [address] [place] [address] [phone] GENOMIC MEDICINE [address] [address] Echocardiogram complete w contrast and 3D if needed (05/30/2019 7:00 PM SHELL SIEVE OPERATOR) Specimen Narrative Performed At [facility] Echo cardiography Report [address] [facility], [facility] [address], [place] [address] Pat.Name: DILLON PEREZ Pat.ID: [id number] .Date: 05/30/2019 Refer.MD: ASCENCION QUINTERO MD Exam Time: 6:00:00 PM Study Type:R outine Echo Height: 71in Weight: 305lb BSA: 2.53 m2 Ag e: 1940,79Y Sex: MALE BP: 138/70 HR: 72 bpm Sonogr phr: EZRA Stock Pat. Stat.:Inpatient Room: [address] Study Status:Final Echo Event ID:[id number] Order ID: [id number] Reason for Study:Aortic stenosis evaluat ion. History [...] of 10 mmHg. MEASUREMENTS: 2D Parasternal Long Champion Ao An 2.5 cm LVPWd 1.2 cm [...] Radiology Results In - 2019 1:49 PM SHELL SIEVE OPERATOR Echocardiography Report [address] [facility], [facility] [address] , [place] [address] Pat.Name: DILLON PEREZ Pat.I D: [id number] .Date: 05/30/2019 Refer .MD: ASCENCION QUINTERO MD Exam Time: 6:00:00 PM Study Type:Routine Echo Height: 71in Weigh t: 305lb BSA: 2.53 m2 Age: 1001/16/1940,79Y Sex: MALE BP: 138/70 HR: 72 bpm Sonog rphr: EZRA Stock Pat. Stat.:Inpatient Room: [address] Study Status:Final Echo Event ID:[id number] Order ID: [id number] Reason for Study:Aortic stenosis evaluat ion. History [...] of 10 mmHg. MEASUREMENTS: 2D Parasternal Long Champion Ao An 2.5 cm LVPW d 1.2 [...] M.D. Performing Organization Address City/State/Zipcode Phone Number [facility] [address] [phone] duplex arterial upper extremity (05/30/2019 5:00 PM SHELL SIEVE OPERATOR) Specimen Narrative Performed At [facility] Vascular U ltrasound Laboratory Upper Extr emity Arterial Report [address] [facility], [address], [place] [address] Pat.Name: DILLON PEREZ Pat.ID: [id number] .Date: 05/30/2019 Refer.MD: ASCENCION QUINTERO MD Exam Time: 3:21:00 PM Study Type:U E Arterial Age: 1001/16/1940,79Y Sex: MALE Sonogrphr: Priti Recinos RVT Pat. Stat.:[facility] nt Room: [address] ol: RF, CPT - 4: [address]751 Echo Rhea nt ID:[id number] Order ID: [id number] Reason for Study:Bilateral arm pain and swelling. [...] Radiology Results In - 2019 5:50 PM [facility] Vascular Ultrasound Laboratory Upper Extremity Aarti rial Report [address] [address] Pat.Name: LANIDILLON Pat.I D: [id number] .Date: 05/30/2019 Refer .MD: ASCENCION QUINTERO MD Exam Time: 3:21:00 PM Study Type:UE Arterial Age: 1001/16/1940,79Y Sex: MALE Sonogrphr: PAUL Herrera. Stat.:Inpatient Room: LE2250-P Tape Vol: RF, CPT - 4: 51430 Echo Event ID:[id number] Order ID: [id number] Reason for Study:Bilateral arm pain and swelling. [...] RPVI Performing Organization Address City/State/Zipcode Phone Number [facility] [address] [phone] Us ankle brachial index (05/30/2019 3:30 PM SHELL SIEVE OPERATOR) Specimen Narrative Performed At [facility] Vascular D iagnostic Laboratory Physiologi c Arterial Leg Report [address] [place] [address] Pat.Name: DILLON PEREZ Pat.ID: [id number] .Date: 05/30/2019 Refer.MD: ASCENCION QUINTERO MD Exam Time: 2:32:00 PM Study Type:P hysiologic Leg Age: 1001/16/1940,79Y Sex: MALE Sonogrphr: Priti Recinos RVT Pat. Stat.:Inpatie nt Room: [address] l: RF, CPT - 4: [address]18[address] Echo Rhea nt ID:[id number] Order ID: [id number] Reason for Study:Bilateral decreased ped al pulses. 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 Procedures: Ankle/brachial pressures, Di git pressures Race: B SUMMARY: ANKLE/BRACHIAL INDEX: RIGHT LEFT Brachial Artery Xwhwerck295 mmHg AV-F istula DP 0 mmHg 0 [...] Radiology Results In - 2019 9:50 PM SHELL SIEVE OPERATOR Vascular Diagnostic Laboratory Physiologic Arterial Leg Report [address] [address] , [place] [address] Pat.Name: DILLON PEREZ Pat.I D: [id number] .Date: 05/30/2019 Refer .MD: ASCENCION QUINTERO MD Exam Time: 2:32:00 PM Study Type:Physiologic Leg Age: 1001/16/1940,79Y Sex: MALE Sonogrphr: Priti Recinos RVT Pat. Stat.:Inpatient Room: [address] Tape Vol: RF, CPT - 4: 84675 Echo Event ID:[id number] Order ID: [id number] Reason for Study:Bilateral decreased ped al pulses. 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 Stat.:Inpatie nt Room: [address] Vo l: RF, CPT - 4: [address]478 Echo Rhea nt ID:[id number] Order ID: [id number] Reason for Study:Bilateral decreased ped al pulses. 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 Procedures: Ankle/brachial pressures, Di git pressures Race: B SUMMARY: ANKLE/BRACHIAL INDEX: RIGHT LEFT Brachial Artery Vjqmbzst735 mmHg AV-F istula DP 0 mmHg 0 [...] Radiology Results In - 2019 9:03 AM [facility] Vascular Diagnostic Laboratory Physiologic Arterial Leg Report [address] [address] Pat.Name: DILLON PEREZ Rhianna Pat.I D: [id number] .Date: 05/30/2019 Refer .MD: ASCENCION QUINTERO MD Exam Time: 2:32:00 PM Study Type:Physiologic Leg Age: 1001/16/1940,79Y Sex: MALE Sonogrphr: PAUL Herrera. Stat.:Inpatient Room: [address] Tape Vol: RF, CPT - 4: 06262 Echo Event ID:[id number] Order ID: [id number] Reason for Study:Bilateral decreased ped al pulses. 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 Procedures: Ankle/brachial pressures, Di git pressures Race: B SUMMARY: ANKLE/BRACHIAL INDEX: RIGHT LEFT Brachial Artery Gaoeirkg124 mmHg AV-Fi stula DP 0 mmHg 0 [...] Marcellus Yung MD, RPVI Performing Organization Address [facility] Phone Number [facility] [address] [place] [phone] LDH (05/30/2019 11:05 AM SHELL SIEVE OPERATOR) Pathologist [facility] LDH 267 (H) 87 - 225 U/L [facility] Specimen Plasma specimen Performing Organization [facility] Phone Number [facility] DEPARTMENT OF PATHOLOGY AND [address] [place] [address] Uric acid level (05/30/2019 12:50 AM SHELL SIEVE OPERATOR) Pathologist [facility] Uric acid 4.5 3.4 - 7.0 mg/dL [facility] L Specimen Plasma specimen Performing Organization [facility] DEPARTMENT OF PATHOLOGY AND [address] [place] [address] Thyroid stimulating hormone (05/30/2019 12:50 AM SHELL SIEVE OPERATOR) Pathologist Sig [facility] TSH 0.63 0.27 - 4.20 uIU/mL [facility] Specimen Plasma specimen Performing Organization [facility] Phone Number [facility] DEPARTMENT OF PATHOLOGY AND [address] [place] [phone] [place] [address] T4, free (05/30/2019 12:50 AM SHELL SIEVE OPERATOR) Pathologist Sig [facility] T4, free 0.7 (L) 0.9 - 1.7 ng/dL [facility] L Specimen Plasma specimen Performing Organization Address [facility] Phone Number [facility] DEPARTMENT OF PATHOLOGY AND [address] [address] Manual differential (05/30/2019 12:20 AM SHELL SIEVE OPERATOR) Manual differential PERFORMED [facility] Neutrophils 81.0 (H) 39.0 - 69.0 % [facility] Lymphocytes 10.0 (L) 25.0 - 45.0 % [facility] Monocytes 8.0 0.0 - 10.0 % [facility] Eosinophils 1.0 0.0 - 5.0 % [facility] Basophils 0.0 0.0 - 1.0 % [facility] Metamyelocytes 0 % [facility] Promyelocytes 0 % [facility] Platelet slide review Decreased (A) [facility] Anisocytosis Moderate [facility] Polychromasia Moderate [facility] Tear drop cells Occasional [facility] Dighton cells Moderate (A) [facility] Enlarged platelets Moderate (A) [facility] Specimen Performing Organization Address City/[facility] Phone Number [facility] DEPARTMENT OF PATHOLOGY AND [address] [place] [phone] Heparin PF4 antibody (IgG) (05/29/2019 9:41 AM SHELL SIEVE OPERATOR) Pathologist Sig nature Heparin PF4 Ab OD 0.206 0.000 - 0.399 [facility] Heparin PF4 Ab, IgG Negative Negative [facility] Specimen Blood Performing Organization Address City/[facility] Phone Number [facility] DEPARTMENT OF PATHOLOGY AND [address] [place] [phone] Hepatitis B surface antigen (05/28/2019 1:50 PM SHELL SIEVE OPERATOR) Pathologist Sig nature Hepatitis B surface Non-reactive Non-reactive [facility] Specimen Blood Performing Organization Address City/[facility] Phone Number [facility] DEPARTMENT OF PATHOLOGY AND [address] [place] [address] Hemoglobin A1c (05/28/2019 9:41 AM SHELL SIEVE OPERATOR) Hemoglobin A1C 6.5 (H) 4.0 - 5.6 % [facility] Comment: HOSPITAL HbA1c cutoffs for diagnosing [...] Blood Performing Organization Address City/State/Zipcode Phone Number [facility] DEPARTMENT OF PATHOLOGY AND [address] [place] [address] [phone] GENOMIC MEDICINE [facility] [address] [place] [address] after 11/03/2018 Insurance Payer Benefit Plan / Subscriber ID Effective Dates Phone Addre ss Type Group MEDICARE MEDICARE PART A xxxxxxxxxxx 2004-[place] Medicare AND B t AARP AARP SUPPLEMENT xxxxxxxxxxx 2008-Present Commercial (Work) [id number] Advance Directives For more information, please contact: [phone] Type Date Recorded Patient [employer] Program Associate Explanati on Advance Directives, Living Will 08/07/2016 7:57 AM and Medical Power of Urology Nurse
--- OUTSIDE RECORDS SUMMARY | 2019-11-04 06:55 | XMS REPORT | Continuity of Care Document ---
:1940 Author Organization [facility] t Address [address] [place] [address] Care Team Providers Name Role Phone Martin CHOWDHURY, Anmol Walker Primary Care Physician JOANN Attending Clinician Unavailable Ingrid CHOWDHURY, R. Attending Clinician Ester CHOWDHURY, M. Attending Clinician Johnathan CHOWDHURY PhD, S. Attending Clinician JOANN Admitting Clinician Unavailable INGRID Admitting Clinician Unavailable Payers Payer Name Policy Policy Number Effective Expiration Source Type Date Date MEDICAREMEDICARE PART xxxxxxxxxxx 2004 Jono garcía A AND 00:00:00 [facility]ism [id number]/1/2004 [place]xx 2008 [place] SUPPLEMENTxxxxxxxxxxx 00:00:00 [place] 2008-PresentComme rcial Problems [...] st 00 ally from request for surgery [id number] Coronary Coronary Disease Active Overview: Jono garcía artery artery 4-11 Added Methodi disease disease 00:00: automatic st involving involving 00 ally from [place] request coronary coronary for artery of artery of surgery [place] [id number] heart heart without without angina angina pectoris pectoris Chest pain Chest pain Disease Active Overview : [place] 4-11 Added Methodi 00:00: automatic st 00 ally from request for surgery [id number] 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 4-10 Method i 00:00: st 00 Coronary Coronary Disease Active [place] artery artery 4-10 Methodi disease of disease of 00:00: st [place] 00 artery of artery of [place] heart with heart with stable stable angina [...] 2020-0 [facility] 5-16 Clear 00:00: Ann 00 [facility] ciproflo DA Active U 2020-0 [facility] xacin 5-16 Clear 00:00: Ann 00 [facility] meperidi DA Active U 2020-0 [facility] ne 5-16 Clear 00:00: Ann 00 [facility] iodine DA Active U 2020-0 [facility] 4-13 Clear 00:00: Ann 00 [facility] ciproflo DA Active U 2020-0 [facility] xacin 4-13 Clear 00:00: Ann 00 [facility] meperidi DA Active U 2020-0 [facility] ne 4-13 Clear 00:00: Ann 00 [facility] Ciproflo Propensi Active Itching [place] xacin ty to 3-27 Methodi adverse 00:00: st reaction 00 s to drug Meperidi Propensi Active Other (See Jono stacy ty to Comments) 3-27 Methodi adverse 00:00: st reaction 00 s to drug Iodine Propensi Active Itching [place] ty to 4-19 Methodi adverse 00:00: st reaction 00 s to drug Shrimp Propensi Active Itching [place] ty to 4-19 Methodi adverse 00:00: st reaction 00 s to drug Iodine Adverse Active Info Not [facility] Reaction Available Eduardo - [facility] Clinics Social History Social Habit Start Date Stop Date Quantity Comments Source Sex Assigned At [place] M ethodist Cigarettes smoked 2019-05-29 2019-05-29 Per[facility] Chance current (pack per 00:00:00 00:00:00 day) - Reported Cigarette 2019-05-29 2019-05-29 [place] Method ist pack-years 00:00:00 00:00:00 Alcohol intake 2019-05-29 2019-05-29 Current [facility] thodist 00:00:00 00:00:00 non-drinker of alcohol (finding) History of tobacco 1979-03-08 Current smoker Jono Chance use 00:00:00 Smoking Status Start Date Stop Date Source Former smoker 2019-05-29 00:00:00 2019-05-29 00:00:00 [facility] Chance Medications Ordered Filled Start Stop Current Ordering Indication Dosage Frequency Signature Comments Components Source Medication Medication Date Date Medication? Clinician (SIG) Name Name oseltamivir 2019- 2020- No 30mg Q.[id number] Take 1 [place] (TAMIFLU) 06-12 [id number] capsule Methodi 30 MG 00:00: 23:59 3W ([address] capsule 00 :00 total) by mouth 3 (three) times a week for 3 days. midodrine 2019- 2020- No 20mg Q.[id number] Take 2 [place] (PROAMATINE 07-10 [id number] tablets Methodi ) 10 MG 00:00: 23:59 3W ([address] tablet 00 :00 total) by mouth 3 (three) times a week for 30 days. polyethylen 2019- No 17g QD Take 17 g [place] e glycol 06-10 by mouth Method i (MIRALAX) 00:00: 23:[address] 17 gram 00 :00 30 days. packet lisinopriL 2019- No 5mg QD Take 1 [place] (PRINIVIL) 06-10 tablet (5 Met hodi 5 mg tablet 00:00: 23:59 mg total) st 00 :00 by mouth daily for 30 days. insulin NPH 2019-2019- No 6U QD Inject 6 H [facility] (HumuLIN-N) 06-10 Units Method i 100 unit/mL 00:00: 23:[address] injection 00 :00 skin daily for 30 days. epoetin 2019-2019- No 31115T Q.[id number] Infuse [place] zaid-epbx 06-10 [id number] 13,000 M ethodi 10,000 00:00: 23:59 3W [...] chest pain. midodrine 2019-0 2020- No 20mg Q.[id number] Take 20 mg [place] (PROAMATINE 06-09 [id number] by mouth 3 Methodi ) 10 MG [...] 2020-0 Yes 1{spray QD 1 spray by [place] (FLONASE) 06-09 } Each Nare Metho di 50 20:45: route st mcg/actuati 43 daily. on nasal spray gabapentin 2020-0 Yes 100mg Q.[id number] Take 100 [place] (NEURONTIN) - [id number] mg by M ethodi 100 mg 20:45: 3D mouth 3 st capsule 43 (three) times a day. amIODarone 2020-0 Yes 100mg QD Take 100 Ho ricky (PACERONE) 2-27 mg by Methodi 200 MG 20:45: mouth st tablet 43 daily. sevelamer 2020-0 Yes 1600mg Q.[id number] Take 1,600 [place] (RENVELA) 2- [id number] mg by Met hodi 800 mg 20:45: [...] levalbutero 2020-0 2020- No Influenza A 1.25mg Q.[id number] Take 3 mL [place] l (XOPENEX) 06-09- (H1N1) [id number] (1.25 mg Methodi 1.25 mg/3 00:00: 23:59 7D total) by st mL 00 :00 nebulizati nebulizer on every 4 solution (four) hours for 30 days. ipratropium 2020-0 2020- No Influenza A .5mg Q.[id number] Take 2. 5 [place] (ATROVENT) 06-09 (H1N1) [id number] mL (0.5 mg Methodi 0.02 % 00:00: 23:59 7D total) by st nebulizer 00 :00 nebulizati solution on every 4 (four) hours for 30 days. insulin 2019-2019- No 0U Q4H Inject [place] lispro 06-09 0-12 Units Method i (HumaLOG) [...] [facility]ics clopidogrel clopidogrel Yes Chris not [facility] Ipratropium Ipratropium Yes Chris not [facility] [place] [facility] defined [facility] Prednisone Prednisone Yes Chris not [facility] defined [facility] Vital Signs Vital Name Observation Time Observation Value Comments Source Heart rate 2019-06-09 19:30:00 86 /min Percy [facility]ism Respiratory rate 2019-06-09 19:30:00 22 /min Essie boyd Yazidism Oxygen saturation in 2019-06-09 19:16:00 100 /min [facility] Chance Arterial blood by Pulse oximetry Systolic blood 2019-06-09 18:00:00 131 mm[Hg] Essieto n Yazidism pressure Diastolic blood 2019-06-09 18:00:00 59 mm[Hg] Chrissie on Yazidism pressure Body temperature 2019-06-09 17:00:00 36.67 Leslee Essie boyd Yazidism Body weight 2019-06-09 06:00:00 124.5 kg [facility] Chance BMI 2019-06-09 06:00:00 38.28 kg/m2 [place] Y[facility]ism Body height 2019-05-28 09:15:00 180.3 cm Percy [...] PARTIAL THROMBOPLASTIN 2019-06-09 04:45:00 Yvette Hernandez on Yazidism TIME (PTT) HC COMPLETE BLD COUNT 2019-06-09 04:45:00 Lee Polk Yazidism W/AUTO DIFF POC GLUCOSE 2019-06-09 02:07:00 Trey Norman [facility]ist POC GLUCOSE 2019-06-08 20:30:00 Trey Norman [facility] POC GLUCOSE 2019-06-08 17:13:00 Trey Norman [facility] HEMODIALYSIS 2019-06-08 15:06:25 KiloagaDawna ethodist Almita XR CHEST 1 VW PORTABLE 2019-06-08 12:32:38 Norma Welsh Yazidism POC GLUCOSE 2019-06-08 12:07:00 Trey Norman [facility] POC GLUCOSE 2019-06-08 07:38:00 Trey Norman Met hodist PARTIAL THROMBOPLASTIN 2019-06-08 05:50:00 Yvette Hernadnez on Yazidism TIME (PTT) HC COMPLETE BLD COUNT 2019-06-08 05:50:00 Kaylene Watkins Yazidism W/AUTO DIFF BASIC METABOLIC PANEL 2019-06-08 05:50:00 Kaylene Watkins Yazidism MAGNESIUM LEVEL 2019-06-08 05:50:00 Kaylene Watkins Yazidism PHOSPHORUS LEVEL 2019-06-08 05:50:00 Kaylene Watkins on Yazidism ESTIMATED GFR 2019-06-08 05:50:00 Kaylene Watkins n Yazidism POC GLUCOSE 2019-06-08 04:26:00 Trey Norman [facility]ist POC GLUCOSE 2019-06-08 00:18:00 Trey Norman Met h[facility]ist POC GLUCOSE 2019-06-07 20:16:00 Trey Norman [facility] POC GLUCOSE 2019-06-07 16:22:00 Trey Norman [facility] POC GLUCOSE 2019-06-07 15:50:00 Trey Norman Met h[facility]ist POC GLUCOSE 2019-06-07 11:39:00 Trey Norman [facility] ARTERIAL BLOOD GAS 2019-06-07 11:34:00 Micheline Multani Yazidism HEMODIALYSIS 2019-06-07 10:44:52 Imani Arita Meth odist Vida POC GLUCOSE 2019-06-07 07:42:00 Trey Norman [facility]ist US DUPLEX VENOUS LOWER 2019-06-07 06:20:00 Hernandez, M G Ekaterina [place] [facility]idism EXTREMITY BILATERAL POC GLUCOSE 2019-06-07 04:27:00 Trey Norman Met [facility]ist PARTIAL THROMBOPLASTIN 2019-06-07 03:50:00 Yvette Hernandez on Yazidism TIME (PTT) CBC HEMOGRAM 2019-06-07 03:50:00 Lee Polk ethodist POC GLUCOSE 2019-06-07 00:19:00 Trey Norman [facility] POC GLUCOSE 2019-06-06 20:19:00 Trey Norman [facility] POC GLUCOSE 2019-06-06 18:13:00 Trey Norman [facility] OCCULT BLOOD, STOOL 2019-06-06 17:50:00 Trey Norman Yazidism POC GLUCOSE 2019-06-06 14:46:00 Trey Norman [facility] POC GLUCOSE 2019-06-06 12:21:00 Trey Norman Met [facility] POC GLUCOSE 2019-06-06 08:00:00 Trey Norman [facility] POC GLUCOSE 2019-06-06 04:29:00 Trey Norman [facility] HC COMPLETE BLD COUNT 2019-06-06 03:35:00 Tejas Escamilla Yazidism W/AUTO DIFF Louise MAGNESIUM LEVEL 2019-06-06 03:35:00 Tejas Escamilla ethodist Louise PHOSPHORUS LEVEL 2019-06-06 03:35:00 Tejas Escamilla Yazidism Louise COMPREHENSIVE METABOLIC 2019-06-06 03:35:00 Tejas Escamilla Yazidism PANEL Louise PARTIAL THROMBOPLASTIN 2019-06-06 03:35:00 Yvette Hernandez on Yazidism TIME (PTT) ESTIMATED GFR 2019-06-06 03:35:00 Yvette Hernandez Meth odist POC GLUCOSE 2019-06-06 00:25:00 Trey Norman [facility]ist ARTERIAL BLOOD GAS 2019-06-05 21:42:00 Lee Polk n Yazidism POC GLUCOSE 2019-06-05 20:16:00 Trey Norman Met [facility]ist POC GLUCOSE 2019-06-05 17:20:00 Trey Norman [facility] POC GLUCOSE 2019-06-05 16:15:00 Trey Nroman Met hodist POC GLUCOSE 2019-06-05 12:10:00 Trey Norman Met [facility]ist XR CHEST 1 VW PORTABLE 2019-06-05 08:59:00 Lee Polk Jono sanchezoliver Yazidism POC GLUCOSE 2019-06-05 08:18:00 Trey Norman [facility]ist HC COMPLETE BLD COUNT 2019-06-05 04:20:00 Tejas Escamilla Yazidism W/AUTO DIFF Louise MAGNESIUM LEVEL 2019-06-05 04:20:00 Tejas Escamilla ethodist Louise PHOSPHORUS LEVEL 2019-06-05 04:20:00 Tejas Escamilla Yazidism Louise COMPREHENSIVE METABOLIC 2019-06-05 04:20:00 Tejas Escamilla Yazidism PANEL Louise PARTIAL THROMBOPLASTIN 2019-06-05 04:20:00 Yvette Hernandez on Yazidism TIME (PTT) ESTIMATED GFR 2019-06-05 04:20:00 Yvette Hernandez Meth odist POC GLUCOSE 2019-06-05 04:18:00 Trey Norman [facility]ist POC GLUCOSE 2019-06-05 00:57:00 Trey Norman Met [facility]ist TRANSFUSE RED BLOOD CELLS 2019-06-04 22:32:21 Trey Norman Yazidism TRANSFUSE RED BLOOD CELLS 2019-06-04 21:21:15 Trey Norman Yazidism POC GLUCOSE 2019-06-04 20:57:00 Trey Norman [facility] POC GLUCOSE 2019-06-04 16:48:00 Trey Norman Met h[facility]ist PARTIAL THROMBOPLASTIN 2019-06-04 15:15:00 Yvette Hernandez on Yazidism TIME (PTT) POC GLUCOSE 2019-06-04 12:13:00 Trey Norman Met hodist XR CHEST 1 VW PORTABLE 2019-06-04 10:45:44 Tejas Escamilla Yazidism Louise CBC HEMOGRAM 2019-06-04 08:44:00 Trey Norman Met [facility]ist POC GLUCOSE 2019-06-04 07:39:00 Trey Norman [facility] HEMODIALYSIS 2019-06-04 07:32:12 Imani Arita Percy Meth odist Vida HC COMPLETE BLD COUNT 2019-06-04 05:50:00 Andi Tejas joseph Yazidism W/AUTO DIFF Louise MAGNESIUM LEVEL 2019-06-04 05:50:00 Andi Chandlergarcia Percy Crawford ethodist Louise PHOSPHORUS LEVEL 2019-06-04 05:50:00 Andi Tejas Greer Yazidism Louise COMPREHENSIVE METABOLIC 2019-06-04 05:50:00 Tejas Escamilla Yazidism PANEL Louise PARTIAL THROMBOPLASTIN 2019-06-04 05:50:00 Yvette Hernandez on Yazidism TIME (PTT) ESTIMATED GFR 2019-06-04 05:50:00 Andi Tejas Crawford ethodist Louise SMEAR REVIEW 2019-06-04 05:50:00 Tejas Escamilla ethodist Louise POC GLUCOSE 2019-06-04 04:19:00 Trey Norman [facility] POC GLUCOSE 2019-06-04 00:27:00 Trey Norman Met h[facility]ist PROTHROMBIN TIME WITH INR 2019-06-03 23:20:00 Yvette Hernandezist PARTIAL THROMBOPLASTIN 2019-06-03 23:20:00 Yvette Hernandez on Yazidism TIME (PTT) CBC HEMOGRAM 2019-06-03 23:20:00 Yvette Hernandez Meth odist ANTI XA, UNFRACTIONATED 2019-06-03 23:20:00 Yvette Hernandez Yazidism POC GLUCOSE 2019-06-03 20:05:00 Trey Norman [facility] CT ANGIOGRAM PE CHEST 2019-06-03 19:51:51 Yvette Hernandez n Yazidism POC GLUCOSE 2019-06-03 16:44:00 Trey Norman Met h[facility]ist ECG 12-LEAD 2019-06-03 14:44:00 Tejas Escamilla ethodist Louise D-DIMER 2019-06-03 14:43:00 Yvette Hernandez Meth odist XR CHEST 1 VW PORTABLE 2019-06-03 14:38:39 Tejas Escamilla Yazidism Louise RESPIRATORY PATHOGEN PANEL 2019-06-03 14:36:00 Pop Escamillapapito Chance Louise ARTERIAL BLOOD GAS 2019-06-03 13:48:00 Andi Tejas sorenson Yazidism Louise POC GLUCOSE 2019-06-03 12:18:00 Trey Norman [facility] XR CHEST 1 VW PORTABLE 2019-06-03 10:58:27 Bimal Gibbs Yazidism POC GLUCOSE 2019-06-03 08:05:00 Trey Norman Met [facility]ist POC GLUCOSE 2019-06-03 06:16:00 Trey Norman [facility] HC COMPLETE BLD COUNT 2019-06-03 03:30:00 Trey Norman on Yazidism W/AUTO DIFF BASIC METABOLIC PANEL 2019-06-03 03:30:00 Kaylene Watkins Yazidism ESTIMATED GFR 2019-06-03 03:30:00 Kaylene Watkins Yazidism POC GLUCOSE 2019-06-03 03:03:00 Trey Norman Met h[facility]ist POC GLUCOSE 2019-06-02 22:08:00 Trey Norman Met hodist POC GLUCOSE 2019-06-02 20:23:00 Trey Norman Met hodist POC GLUCOSE 2019-06-02 16:39:00 Trey Norman Met h[facility]ist ARTERIAL BLOOD GAS 2019-06-02 15:25:00 Radha Diaz on Yazidism XR CHEST 1 VW PORTABLE 2019-06-02 15:20:00 Radha Diaz Yazidism TRANSFUSE RED BLOOD CELLS 2019-06-02 15:17:45 Zoila Welsh Yazidism POC GLUCOSE 2019-06-02 13:34:00 Trey Norman [facility] TYPE AND SCREEN 2019-06-02 08:34:00 Zoila Welshist PREPARE RBC 2019-06-02 08:34:00 Trey Norman Met hodist CBC HEMOGRAM 2019-06-02 05:20:00 Ad Quintero Meth odist POC GLUCOSE 2019-06-01 22:56:00 Ad Quintero Meth odist POC GLUCOSE 2019-06-01 21:44:00 Ad Quintero Meth odist HEMODIALYSIS 2019-06-01 17:08:11 Zoila Welsh Yazidism POC GLUCOSE 2019-06-01 17:04:00 Ad Quintero Meth odist CV PYP SCAN FOR CARDIAC 2019-06-01 15:12:30 Ayo Pruett Yazidism AMYLOIDOSIS POC GLUCOSE 2019-06-01 12:04:00 Ad Quintero Meth odist ECG 12-LEAD 2019-06-01 11:32:51 Vandana Rene Met hodist XR CHEST 1 VW PORTABLE 2019-06-01 11:20:00 Vandana Rene Yazidism POC GLUCOSE 2019-06-01 07:50:00 Ad Quintero Meth odist KAPPA LAMBDA FREE LIGHT 2019-06-01 05:20:00 Ayo Pruett Yazidism CHAIN WITH RATIO BASIC METABOLIC PANEL 2019-06-01 05:20:00 Ad Quintero Yazidism ESTIMATED GFR 2019-06-01 05:20:00 Ad Quintero Meth odist POC GLUCOSE 2019-05-31 21:16:00 Ad Quintero Meth odist ECG 12-LEAD 2019-05-31 17:44:47 Vandana Rene Met hodist BASIC METABOLIC PANEL 2019-05-31 17:33:00 Vandana Rene on Yazidism MAGNESIUM LEVEL 2019-05-31 17:33:00 Vandana Rene Met hodist ESTIMATED GFR 2019-05-31 17:33:00 Vandana Rene Met hodist POC GLUCOSE 2019-05-31 16:58:[address] odist CT CARDIAC CALCIUM SCORE 2019-05-31 15:35:42 Ayo Pruett Yazidism POC GLUCOSE 2019-05-31 12:29:00 Ad Quintero Meth odist HEMODIALYSIS 2019-05-31 09:45:19 Zoila Welsh Yazidism POC GLUCOSE 2019-05-31 07:59:00 Ad Quintero Meth [...] CONTRAST, 2019-05-30 19:00:00 Jigar Hernandez W DOPPLER ([id number]) POC GLUCOSE 2019-05-30 17:24:00 Ad Quintero US [...] 1 VW PORTABLE 2019-05-30 04:10:00 Alba Fine Yazidism POC GLUCOSE 2019-05-30 03:58:00 Ad Quintero odist URIC ACID LEVEL 2019-05-30 00:50:00 Trey Norman [facility]ist THYROID STIMULATING 2019-05-30 00:50:00 Trey Norman Yazidism HORMONE T4, FREE 2019-05-30 00:50:00 Trey Norman [facility] BASIC METABOLIC PANEL 2019-05-30 00:50:00 Alba Fine on Yazidism IONIZED CALCIUM 2019-05-30 00:50:00 Alba Fine Met h[facility]ist MAGNESIUM LEVEL 2019-05-30 00:50:00 Alba Fine Met hodist PHOSPHORUS LEVEL 2019-05-30 00:50:00 Alba Fine Me thodist ESTIMATED GFR 2019-05-30 00:50:00 Alba Fine Met hodist CBC WITH PLATELET AND 2019-05-30 00:20:00 Alba Fine on Yazidism DIFFERENTIAL MANUAL DIFFERENTIAL 2019-05-30 00:20:00 Abla Fine Yazidism POC GLUCOSE 2019-05-29 23:45:00 Ad Quintero Meth odist POC GLUCOSE 2019-05-29 19:47:00 Ad Quintero Meth odist POC GLUCOSE 2019-05-29 16:16:00 Ad Quintero Meth odist POC GLUCOSE 2019-05-29 11:23:00 Ad Quintero Meth odist HEPARIN PF4 ANTIBODY (IGG) 2019-05-29 09:41:00 Trey Norman Yazidism POC GLUCOSE 2019-05-29 07:36:00 Ad Quintero Meth odist XR CHEST 1 VW PORTABLE 2019-05-29 04:02:00 Alba Fine Yazidism POC GLUCOSE 2019-05-29 04:00:00 Ad Quintero Meth odist ECG 12-LEAD 2019-05-29 03:42:45 Jigar Hernandez Meth odist HC COMPLETE BLD COUNT 2019-05-29 01:00:00 Alba Fine on Yazidism W/AUTO DIFF BASIC METABOLIC PANEL 2019-05-29 00:33:00 Alba Fine on Yazidism IONIZED CALCIUM 2019-05-29 00:33:00 Alba Fine Met hodist MAGNESIUM LEVEL 2019-05-29 00:33:00 Alba Fine Met hodist PHOSPHORUS LEVEL 2019-05-29 00:33:00 Alba Fine Me thodist ESTIMATED GFR 2019-05-29 00:33:00 Babatunde Alba Greer Met hodist HC COMPLETE BLD COUNT 2019-05-29 00:00:00 Alba Fine on Yazidism W/AUTO DIFF POC GLUCOSE 2019-05-28 23:52:00 Ad Quintero Meth odist POC GLUCOSE 2019-05-28 20:25:00 Ad Quintero Meth odist POC GLUCOSE 2019-05-28 16:33:00 Ad Quintero Meth odist HEPATITIS B SURFACE 2019-05-28 13:50:00 La Ash Yazidism ANTIGEN POC GLUCOSE 2019-05-28 11:30:00 Ad Quintero odist HEMODIALYSIS 2019-05-28 11:17:52 La Ash odist HC COMPLETE BLD COUNT 2019-05-28 10:05:00 Jigar Hernandez Yazidism W/AUTO DIFF XR CHEST 1 VW PORTABLE 2019-05-28 10:02:26 Jigar Hernandez on Yazidism CONSULT CARDIAC REHAB 2019-05-28 09:42:15 Jigar Hernandez Yazidism PHASE 1 ECG 12-LEAD 2019-05-28 09:42:01 Jigar Hernandez odist BASIC METABOLIC PANEL 2019-05-28 09:41:00 Jigar Hernandez Yazidism MAGNESIUM LEVEL 2019-05-28 09:41:00 Jigar Hernandez odist PHOSPHORUS LEVEL 2019-05-28 09:41:00 Jigar Hernandez hodist IONIZED CALCIUM 2019-05-28 09:41:00 Jigar Hernandez odist PROTHROMBIN TIME WITH INR 2019-05-28 09:41:00 Jigar Hernandez Yazidism PARTIAL THROMBOPLASTIN 2019-05-28 09:41:00 Jigar Hernandez on Yazidism TIME (PTT) TYPE AND SCREEN 2019-05-28 09:41:00 Jigar Hernandez odist ESTIMATED GFR 2019-05-28 09:41:00 Jigar Hernandez odist HEMOGLOBIN A1C 2019-05-28 09:41:00 Jigar Hernandez odist POC GLUCOSE 2019-05-28 09:39:00 Ad Quintero Meth odist Plan of Care Planned Activity Planned Date Details Comments Source Future Scheduled 2019-11-12 INFLUENZA VACCINE [place] [facility] 00:00:00 [code = INFLUENZA VACCINE] Future Scheduled 2004-01-13 65+ PNEUMOCOCCAL [facility] Test 00:00:00 VACCINE (1 of 2 - PCV13) [code = 65+ PNEUMOCOCCAL VACCINE (1 of 2 - PCV13)] Future Scheduled 1989-01-12 SHINGLES VACCINES (#1) [place] [facility] 00:00:00 [code = SHINGLES VACCINES (#1)] Future Scheduled 1949-01-12 DIABETIC FOOT EXAM [place] [facility] 00:00:00 [code = DIABETIC FOOT EXAM] Future Scheduled 1949-01-12 URINE MICROALBUMIN [place] [facility] 00:00:00 [code = URINE MICROALBUMIN] Future Scheduled 1939 DIABETIC RETINAL EYE [facility] [facility] [facility] Test 00:00:00 EXAM [code = DIABETIC RETINAL EYE EXAM] Encounters Start End Encounter Admission Attending Care Care Encounter Source Date/Time Date/Time Type Type Clinicians Facility Department ID 2019-07-18 Inpatient C [facility] [id number] 4 [place] 15:02:00 [facility] 2019-05-28 2019-06-09 Inpatient [facility] [id number] [place] 00:00:00 00:00:00 TREY [address] 2019-06-01 2019-06-01 Outpatient [facility]ATHAN [facility] [id number] [place] 00:00:00 00:00:[address] 2019-06-01 2019-06-01 Outpatient JOHNATHAN [facility] [id number] [place] 00:00:00 00:00:[address] 2019-03-22 2019-03-22 [facility] [id number] [facility] [address] 09:45:00 09:45:00 [facility] Results Test Description Test Time Test Comments Results Result Comments Source GLUBED 2019-08-30 17:19:00 Test Item Value Reference Range Interpretation Comme nts GLUBED (test code = GLUBED) 175 MG/DL 70-110 H Performed by certified 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 [facility] Coronavirus 2019 nCoV [id number] 14:30:00 Test Item Value Reference Range Interpretation Comments Coronavirus 2019 Negative Negative Negative re sults should be nCoV Bedside (test treated a s presumptive and, code = ifinconsistent with COVNONPUIBED) clinical signs and symptoms or necessaryfor patient management, matilde uld be tested with an alternativemole cular assay. Negative result s do not preclude PDGQ-TdL-3jnvzv tion and should not be u sed as the sole basis forp atient management deci sions. Negative result s should beconsidered in the context of a patient's recent exposures,histo ry, presence of clinical sig ns and symptoms consis tentwith COVID-19. [id number] 12:08:00 Test Item Value Reference Range Interpretation Comments GLUBED (test code = 204 MG/DL 70-110 H Performe d by certified GLUBED) 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 [facility] [id number] 08:21:00 Test Item Value Reference Range Interpretation Comments GLUBED (test code = 128 MG/DL 70-110 H Performe d by certified GLUBED) 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 [facility] [id number] 20:23:00 Test Item Value Reference Range Interpretation Comments GLUBED (test code = 315 MG/DL 70-110 H Performe d by certified GLUBED) 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 [facility] [id number] 16:00:00 Test Item Value Reference Range Interpretation Comments GLUBED (test code = 189 MG/DL 70-110 H Performe d by certified GLUBED) 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 [facility] ACUTE HEPATITIS [id number] 13:28:00 Test Item Value Reference Range Interpretation Comments AB HEPATITIS A IGM (test NON REACTIVE INDEX NON REACT. code = HAVMAB) AG HEPATITIS B SURFACE NON REACTIVE INDEX NonReactive (test code = HBSAG) AB HEPATITIS B CORE IGM NON REACTIVE INDEX NON REACT. (test code = HBCMAB) AB HEPATITIS C (test code NON REACTIVE INDEX NON REACT. = HCVAB) ACUTE HEPATITIS [id number] 13:24:00 Test Item Value Reference Range Interpretation Comments AB HEPATITIS A IGM (test INDEX NON REACT. code = HAVMAB) AG HEPATITIS B SURFACE NON REACTIVE INDEX NonReactive (test code = HBSAG) AB HEPATITIS B CORE IGM NON REACTIVE INDEX NON REACT. (test code = HBCMAB) AB HEPATITIS C (test code NON REACTIVE INDEX NON REACT. = HCVAB) ACUTE HEPATITIS [id number] 12:57:00 Test Item Value Reference Range Interpretation Comments AB HEPATITIS A IGM (test INDEX NON REACT. code = HAVMAB) AG HEPATITIS B SURFACE NON REACTIVE INDEX NonReactive (test code = HBSAG) AB HEPATITIS B CORE IGM INDEX NON REACT. (test code = HBCMAB) AB HEPATITIS C (test code INDEX NON REACT. 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 [facility] [id number] 17:38:00 Test Item Value Reference Range Interpretation Comments GLUBED (test code = 135 MG/DL 70-110 H Performe d by certified GLUBED) 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 [facility] [id number] 06:12:00 Test Item Value Reference Range Interpretation Comments GLUBED (test code = 136 MG/DL 70-110 H Performe d by certified GLUBED) 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 [facility] [id number] 06:12:00 Test Item Value Reference Range Interpretation Comments GLUBED (test code = 128 MG/DL 70-110 H Performe d by certified GLUBED) 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 [facility] B-TYPE NATRIURETIC [id number] 21:19:00 Test Item Value Reference Range Interpretation Comments B-TYPE NATRIURETIC PEPTIDE (test 583.7 PG/ML 0-100 H code = BNP) CBC W/AUTO [id number] 20:47:00 Test Item Value Reference Range Interpretation [...] NO = MDASHLYN) - CT NECK W/O [id number] 20:05:00 Name: ANDREA PERZE [facility] : 1940 Age/S: 79 / M [address] [place] [address] Unit #: [id number] Loc: C[place] [id number] Phys: Andrew Velez MD Acct: [id number] Dis Date: Status: REG ER PHONE #: [phone] Exam Date: 08/27/20191943 FAX #: [phone] Reason: neck swelling EXAMS: CPTCODE: [id number] CT NECK W/O CONTRAST 64138 Clinical Indication: Neck swelling; Comparison: None Technique: [...] 1 Signed Report (CONTINUED) Name: ANDREA PEREZ [facility] : 1940 Age/S: 79 / M [address] [place] [address] Blvd U nit #: [id number] Loc: [place] [address] Phys: Andrew Velez MD Acct: [id number] Dis Date: Status: REG ER PHONE #: [phone] Exam Date: 08/27/20191943 FAX #: [phone] Reason: neck swelling EXAMS: CPT CODE: [id number] CT NECK W/O CONTRAST 01899 <Continued> of the mandibular teeth to suggest [...] 08/27/2019 (2008) PAGE 2 Signed ReportBASIC METABOLIC [id number] 19:20:00 Test Item Value Reference Range Interpretation [...] 8.7 mg/dL 8.0-10.5 N CA) HEPATIC FUNCTION [id number] 19:20:00 Test Item Value Reference Range Interpretation [...] 127 IUnit/L 20-125 H code = ALKP) [id number] 19:20:00 Test Item Value Reference Range Interpretation Comments LIPASE (test code = LIP) 259 IUnit/L 73-393 N [id number]-[id number] 19:20:00 Test Item Value Reference Range Interpretation [...] may ana y by method. BASIC METABOLIC [id number] 19:19:00 Test Item Value Reference Range Interpretation [...] code = CA) mg/dL 8.0-10.5 HEPATIC FUNCTION [id number] 19:19:00 Test Item Value Reference Range Interpretation Comments TOTAL PROTEIN (test code = PROT) g/dL 6.4-8.2 ALBUMIN (test code = ALB) g/dL 3.4-5.0 BILIRUBIN TOTAL (test code = BILT) MG/DL <1.5 BILIRUBIN DIRECT (test code = BILD) MG/DL 0.0-0.30 SGOT/AST (test code = AST) IUnit/L 15-37 SGPT/ALT (test code = ALT) IUnit/L 15-65 ALKALINE PHOSPHATASE TOTAL (test IUnit/L 20-125 code = ALKP) [id number] 19:19:00 Test Item Value Reference Range Interpretation Comments LIPASE (test code = LIP) IUnit/L 73-393 IZZYIKLJ-[id number] 19:19:00 Test Item Value Reference Range Interpretation [...] y by method. - XR CHEST 1 [id number] 18:26:00 FAX: Andrew Velez MD [phone] [place]: St: REG Name: ANDREA PEREZ [facility] : 1940 Age/S: 79/M [address] [place] [address] Unit#: [id number] Loc: [address] [place] [address] Phys: Andrew Velez MD Acct: [id number] Dis Date: Status: REG ER PHONE #: [phone] Exam Date: 08/27/20191811 FAX #: [phone] Reason: SOB EXAMS: CPT CODE: [id number] XR CHEST 1 V 29497 Portable single view AP chest INDICATION: Shortness [...] D/T: S: 08/27/2019 (1828) PAGE 1 Signed [id number] 12:06:00 Test Item Value Reference Range Interpretation Comments GLUBED (test code = 174 MG/DL 70-110 H Performe d by certified GLUBED) 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 [facility] [id number] 08:04:00 Test Item Value Reference Range Interpretation Comments GLUBED (test code = 177 MG/DL 70-110 H Performe d by certified GLUBED) 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 [facility] [id number] 21:17:00 Test Item Value Reference Range Interpretation Comments GLUBED (test code = 231 MG/DL 70-110 H Performe d by certified GLUBED) 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 [facility] [id number] 17:24:00 Test Item Value Reference Range Interpretation Comments GLUBED (test code = 123 MG/DL 70-110 H Performe d by certified GLUBED) 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 [facility] BASIC METABOLIC [id number] 15:59:00 Test Item Value Reference Range Interpretation [...] 8.1 mg/dL 8.0-10.5 N CA) CBC W/AUTO [id number] 15:41:00 Test Item Value Reference Range Interpretation [...] DIFF REQUIRED (test NO code = MDIFF) [id number] 12:16:00 Test Item Value Reference Range Interpretation Comments GLUBED (test code = 154 MG/DL 70-110 H Performe d by certified GLUBED) 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 [facility] HGBA1C%2019-07-28 11:41:00 Test Item Value Reference Range Interpretation Comments HGBA1C% (test code = HGBA1C%) 5.3 %A1C 4.8-6.0 N COMMENTS: use existing specimenCBC W/AUTO [id number] 10:42:00 Test Item Value Reference Range Interpretation [...] (test NO code = MDIFF) ACUTE HEPATITIS [id number] 08:09:00 Test Item Value Reference Range Interpretation [...] COMMENTS: At start of hemodialysisAB HEPATITIS B [id number] 08:09:00 Test Item Value Reference Range Interpretation Comments AB HEPATITIS B < 3.1 mIU/mL Immunity>9.9 L Status of I mmunity SURFACE (test code = HBSAB) Anti-HBs Level --- I ncons istent with Imm unity 0.0 - 9.9Consis tent with Immunity >9.9Performed A t: HD [facility] [address] [id number] Robi Hinton MD Ph:[phone] COMMENTS: At start of gaqjgwosdbwqZWYPGE5304-61-33 07:15:00 Test Item Value Reference Range Interpretation Comments GLUBED (test code = 131 MG/DL 70-110 H Performe d by certified GLUBED) 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 [facility] [id number] 20:07:00 Test Item Value Reference Range Interpretation Comments GLUBED (test code = 199 MG/DL 70-110 H Performe d by certified GLUBED) 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 [facility] [id number] 16:34:00 Test Item Value Reference Range Interpretation Comments GLUBED (test code = 196 MG/DL 70-110 H Performe d by certified GLUBED) 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 [facility] - XR FLUOROSCOPY 0-60 [id number] 16:12:00 FAX: Davie Courtney [phone] [place]: St: ADM FAX: Marie SpencerarMMarta [phone] Name: ANDREA PEREZ [facility] : 1940 Age/S: 79/M [address] [place] [address] Unit #: [id number] Loc: G.55[address] [place] [address] Phys: Alexandr Kwon MD Acct: [id number] Dis Date: Status: ADM IN PHONE #: [phone] Exam Date: 07/27/2019 1130 FAX #: [phone] Reason: LT AV GRAFT MALFUNCTION EXAMS: CPT CODE: [id number] XR FLUOROSCOPY 0-60 MIN 56525 Intraprocedural fluoroscopy was provided by the Department of Radiology. Any images obtained were interpreted by the surgeon intraoperatively. FLUOROSCOPY TIME: 1 minute 21 seconds REFERENCE AIR KERMA : 15.0 mGy SL: [id number] at 1612 Reported and signed by: Torrey Yan M.D. CC: Davie Lee MD; Alexandr Kwon MD Technologist: RT Trent(R) Trnscrd Date/Time/By: 07/27/2019 (3295) : By: Ruth Orig Print D/T: S: 07/27/2019 (7561) PAGE 1 Signed LlhfggFFJKSR4694-96-50 07:36:00 Test Item Value Reference Range Interpretation Comments GLUBED (test code = 151 MG/DL 70-110 H Performe d by certified GLUBED) 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 [facility] [id number] 20:35:00 Test Item Value Reference Range Interpretation Comments GLUBED (test code = 170 MG/DL 70-110 H Performe d by certified GLUBED) 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 [facility] [id number] 16:59:00 Test Item Value Reference Range Interpretation Comments GLUBED (test code = 150 MG/DL 70-110 H Performe d by certified GLUBED) 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 [facility] ACUTE HEPATITIS [id number] 14:02:00 Test Item Value Reference Range Interpretation [...] COMMENTS: At start of hemodialysisAB HEPATITIS B [id number] 14:02:00 Test Item Value Reference Range Interpretation Comments AB HEPATITIS B SURFACE (test code = HBSAB) COMMENTS: At start of hemodialysisACUTE HEPATITIS [id number] 13:40:00 Test Item Value Reference Range Interpretation Comments AB HEPATITIS A IGM (test INDEX NON REACT. code = HAVMAB) AG HEPATITIS B SURFACE NON REACTIVE INDEX NonReactive (test code = HBSAG) AB HEPATITIS B CORE IGM INDEX NON REACT. (test code = HBCMAB) AB HEPATITIS C (test code INDEX NON REACT. = HCVAB) COMMENTS: At start of hemodialysisAB HEPATITIS B [id number] 13:40:00 Test Item Value Reference Range Interpretation Comments AB HEPATITIS B SURFACE (test code = HBSAB) COMMENTS: At start of hemodialysis- DUP LE ART UNI/[id number] 11:49:00 Name: ANDREA PEREZ [facility] : 1940 Age/S: 79 / M [address] [place] [address] Unit #: [id number] Loc: [place], [place] Phys: Alexandr Kwon MD Acct: [id number] Dis Date: Status: ADM IN PHONE #: [phone] Exam Date: 07/26/2019 1032 FAX #: [phone] Reason: right foot non-healing wound EXAMS: CPTCODE: [id number] [facility] [employer] UNI/LTD 89058 RIGHT LOWER EXTREMITY ARTERIAL DOPPLER 07/26/2019 AT 1013 HOURS. CLINICAL HISTORY: Nonhealing rightfoot wound. COMPARISONS: None relevant. FINDINGS: Duplex sonographic evaluation of the bilateral lower extremity arterial circulation was performed. RIGHT SIDE: Triphasic waveforms are seen in the right common femoral, superficial femoral and popliteal artery. Monophasic waveforms are seen in the right posterior tibialis and dorsalis pedis artery. PEAK SYSTOLIC VELOCITIES: GREEN HIDE INSPECTOR: 97 cm/s Femoral artery: 101 cm/s Popliteal: 42 cm/s Posterior tibialis: 29 cm/s Dorsalis pedis artery: 12 cm/s. IMPRESSION: 1. Severe right trifurcation atherosclerosis. 2. Nearly 60% drop in peak systolic velocities between right femoral and popliteal artery with preserved popliteal triphasic waveforms. Suspect flow-limiting stenosis at distal popliteal level. SL: [id number] at 1149 Reported and signed by: Desean Gong M.D. CC: Davie Lee MD; Alexandr Kwon MD Technologist: Yessica Johnson RDMS(Garcia)() Trnscb Date/Time: 07/26/2019 (1149) tDADAERR2 Orig Print D/T: S: 07/26/2019 (2244) Probe: PAGE 1 Signed [id number] 11:20:00 Test Item Value Reference Range Interpretation Comments GLUBED (test code = 161 MG/DL 70-110 H Performe d by certified GLUBED) 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 [facility] BASIC METABOLIC [id number] 08:33:00 Test Item Value Reference Range Interpretation [...] code = 8.3 mg/dL 8.0-10.5 N CA) [id number] 08:33:00 Test Item Value Reference Range Interpretation Comments MAGNESIUM (test code = MAG) 2.50 mg/dL 1.8-2.4 H [id number] 08:10:00 Test Item Value Reference Range Interpretation Comments GLUBED (test code = 172 MG/DL 70-110 H Performe d by certified GLUBED) 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 [facility] CBC W/AUTO [id number] 06:08:00 Test Item Value Reference Range Interpretation [...] REQUIRED (test NO code = MDIFF) PROTHROMBIN [id number] 05:27:00 Test Item Value Reference Range Interpretation [...] Infarction (t o prevent recurre nt infarct). [id number] 22:48:00 Test Item Value Reference Range Interpretation Comments GLUBED (test code = 125 MG/DL 70-110 H Performe d by certified GLUBED) 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 [facility] - XR CHEST 1 [id number] 18:11:00 FAX: Davie Courtney [phone] [place]: St: ADM FAX: Jesus Spencer [phone] Name: ANDREA PEREZ [facility] : 1940 Age/S: 79/M [address] [place] [address] Unit #: [id number] Loc: G.[address] [place] [address] Phys: Alexandr Kwon MD Acct: G [id number] Dis Date: Status: ADM IN PHONE #: [phone] Exam Date: 07/25/2019 180 FAX #: [phone] Reason: Post Op EXAMS: CPT CODE: [id number] XR CHEST 1 V 81602 Portable single view AP chest INDICATION: Postop. [...] PAGE 1 Signed Report- XR FLUOROSCOPY 0-60 [id number] 17:51:00 FAX: Davie Courtney [phone] [place]: St: ADM FAX: Jesus Spencer [phone] Name: ANDREA PEREZ [facility] : 1940 Age/S: 79/M [address] [place] [address] Unit #: [id number] Loc: G.[address] [place] [address] Phys: Alexandr Kwon MD Acct: [id number] Dis Date: Status: ADM IN PHONE #: [phone] Exam Date: 07/25/2019 1645 FAX #: [phone] Reason: MALFUNCTION LT ARM AV GRAFT EXAMS: CPT CODE: [id number] XR FLUOROSCOPY 0-60 MIN 00625 Fluoroscopic guidance was provided by the radiology [...] 07/25/2019 (1753) PAGE 1 Signed ReportCBC W/AUTO [id number] 15:22:00 Test Item Value Reference Range Interpretation [...] REQUIRED (test NO code = MDIFF) PLT FNULSMLWAW2828-08-49 15:22:00 Test Item Value Reference Range Interpretation Comments PLATELET ESTIMATE (test code 140-175 THOUSAND ADEQUATE = PLTEST) PLATELET MORPHOLOGY (test LARGE PLATELETS code = PLTMORPH) PROTHROMBIN [id number] 09:45:00 Test Item Value Reference Range Interpretation [...] o prevent recurre nt infarct). THROMBOPLASTIN TIME [id number] 09:45:00 Test Item Value Reference Range Interpretation Comments THROMBOPLASTIN TIME 33.9 Seconds 25.0-39.5 N Ther apeutic PARTIAL (test code = Range: 50.4 - 88.3 PTT) Seconds Effective 07/27/2018 [id number] 09:37:00 Test Item Value Reference Range Interpretation Comments PHOSPHOROUS (test code = PHOS) 4.1 MG/DL 2.5-4.9 N [id number] 09:37:00 Test Item Value Reference Range Interpretation Comments MAGNESIUM (test code = MAG) 2.40 mg/dL 1.8-2.4 N COMPREHENSIVE METABOLIC [id number] 09:11:00 Test Item Value Reference Range Interpretation [...] TOTAL (test code = ALKP) COMPREHENSIVE METABOLIC [id number] 09:06:00 Test Item Value Reference Range Interpretation [...] IUnit/L 20-125 code = ALKP) CBC W/AUTO [id number] 09:04:00 Test Item Value Reference Range Interpretation [...] REQUIRED (test NO code = MDIFF) PLT [id number] 09:04:00 Test Item Value Reference Range Interpretation Comments PLATELET ESTIMATE (test code = THOUSAND ADEQUATE PLTEST) CBC W/AUTO [id number] 09:04:00 Test Item Value Reference Range Interpretation [...] REQUIRED (test NO code = MDIFF) PLT CLYLPSSTJH4165-20-03 09:04:00 Test Item Value Reference Range Interpretation Comments PLATELET ESTIMATE (test code = THOUSAND ADEQUATE PLTEST) POC hyskxad2627-32-88 16:36:33 Test Item Value Reference Range Interpretation Comments POC glucose (test code = 238 mg/dL 65-99 H Ope rator Name: 62915-2) Veena Sexton ice ID: [id number] able: [facility] Notified drying room operator Interpretation (test Abnormal code = 22311-5) [facility] MethodistPartial thromboplastin time, yrzhudaex3579-93-47 06:11:45 Test Item Value Reference Range Interpretation Comments PTT (test code = 52.8 23.0- 36.0 sec H PTT thera peutic range 55354-7) for unfractiona deshawn heparin is61.0- 112.0 seconds which corresponds to Anti-Xa0.3-0.7 U/ml. Lab Interpretation Abnormal (test code = 19782-0) [facility] MethodistCBC with platelet and gquywlawslnm5364-50-11 06:01:31 Test Item Value Reference Range Interpretation Comments WBC (test code = 01989-6) 11.21 4.50- 11.00 k/uL H RBC (test code = 70016-0) 3.04 m/uL 4.4-6 L HGB (test code = 718-7) 8.5 g/dL 14-18 L HCT (test code = 4544-3) 29.7 % 41-51 L MCV (test code = 787-2) 97.7 fL 82-100 MCH (test code = 785-6) 28.0 pg 27-34 MCHC (test code = 786-4) 28.6 g/dL 31-37 L RDW - SD (test code = 63.7 fL 37-55 H 91385-9) MPV (test code = 17174-9) 12.5 fL 8.8-13.2 Platelet count (test code 127 150- 400 k/uL L = 54741-1) Nucleated RBC (test code 0.00 /100 WBC = 99464-9) Neutrophils (test code = 78.6 % 39-69 H 76995-1) Lymphocytes (test code = 8.8 % 25-45 L 10650-0) Monocytes (test code = 10.9 % 0-10 H 59749-4) Eosinophils (test code = 1.1 % 0-5 98357-8) Basophils (test code = 0.2 % 0-1 22151-0) Immature granulocytes 0.4 % 0-1 "Immat ure (test code = 02727-5) granul ocytes" (promyelocytes, myelocytes, metamyelocytes) Lab Interpretation (test Abnormal code = 79226-9) [facility] MethodistXR Chest 1 Vw Ywlwhngb4309-50-57 12:45:16Hm Interface, Radiology Results - 06/08/2019 12:48 [...] effusion. No pneumothorax.Bones: Regional osseous structures appear stable.[id number] [facility] MethodistBasic metabolic rmstu5669-78-12 06:39:31 Test Item Value Reference Range Interpretation Comments Sodium (test code = 2951-2) 135 135- 148 mEq/L Potassium (test code = 2823-3) 4.2 3.5- 5.0 mEq/L Chloride (test code = 2075-0) 97 98- 112 mEq/L L CO2 (test code = 2027-9) 26 24- 31 mEq/L Anion gap (test code = 64842-5) 12@ANIO 7- 15 mEq/L BUN (test code = 3094-0) 31 mg/dL 8-23 H Creatinine (test code = 2160-0) 4.21 mg/dL 0.7-1.2 H Glucose (test code = 2345-7) 117 mg/dL 65-99 H Calcium (test code = 71392-7) 9.0 mg/dL 8.8-10.2 Lab Interpretation (test code = Abnormal 74168-9) [facility] MethodistMagnesium ppiif3092-67-67 06:39:31 Test Item Value Reference Range Interpretation Comments Magnesium (test code = 95062-6) 2.3 mg/dL 1.6-2.4 [facility] MethodistPhosphorus tojmp2806-48-52 06:39:31 Test Item Value Reference Range Interpretation Comments Phosphorus (test code = 2777-1) 2.5 mg/dL 2.4-4.5 [facility] MethodistEstimated [id number] 06:39:31 Test Item Value Reference Range Interpretation Comments Estimated GFR (test 14 mL/min/1.73 m2 Garcia duran Units code = 5488) InterpretationG 1 >=90 Hannah l or highG2 60-89 Mildly decrease dG3a 45-59 Mil dly to moderately decr zekghA0e 30-44 Moderately to s everely decreasedG4 15-29 Severe ly decreasedG5 <15 Kidney fina lureThe eGFR was calcul ated using the [facility] Kidney Disease Epidemiology Collaboration ( CKD-EPI) equation. Interpretation is based on recommendati ons of the National Ki dney Foundation-Kidn ey Disease Outcome s Quality Initiat go (NKF-KDOQI) pub lished in 2013. Lab Interpretation Abnormal (test code = 19202-7) [facility] MethodistArterial blood wyg8013-88-06 11:45:20 Test Item Value Reference Range Interpretation [...] 2708-6) Lab Interpretation (test code = Abnormal 52263-0) [facility] MethodistUs duplex venous lower cqmapxwmo7307-70-52 08:10:00Interface, Radiology Results In - 06/07/2019 8:11 AM [facility] Vascular Ultrasound Laboratory Lower Extremity Venous [address] [address], [place] [address] Pat.Name: GABBY PEREZ.ID: [id number] .Date: 06/07/2019 Refer.MD: KIMBERLY KHANNA MD Exam Time: 4:51:00 AM Study Type:LE Venous Age: 1001/16/1940,79Y Sex: MALE Sonogrphr: Jamal Lira BA, BS, RDMS, RVTPat. Stat.:Inpatient Room: [address] Tape Vol: ZENAIDA, CPT - 4: 07850 Echo Event ID:[id number] Order ID: [id number] Reason for Study:Evaluate for DVT. Patient has [...] thigh, medial to the femoral vessels, measuring tlpkuqatyhhck17.4x6.2x,2.34cm FINDINGS: Signed 06/07/2019 08:10 Jb Yung [facility], [facility] mwcwoaui6710-11-83 04:26:08 Test Item Value Reference Range Interpretation Comments WBC (test code = 06397-6) 16.21 4.50- 11.00 k/uL H RBC (test code = 94289-2) 3.35 m/uL 4.4-6 L HGB (test code = 718-7) 9.6 g/dL 14-18 L HCT (test code = 4544-3) 32.4 % 41-51 L MCV (test code = 787-2) 96.7 fL 82-100 MCH (test code = 785-6) 28.7 pg 27-34 MCHC (test code = 786-4) 29.6 g/dL 31-37 L RDW - SD (test code = 42718-8) 64.8 fL 37-55 H MPV (test code = 76067-0) 12.3 fL 8.8-13.2 Platelet count (test code = 132 150- 400 k/uL L 19320-3) Nucleated RBC (test code = 0.00 /100 WBC 26260-2) Lab Interpretation (test code = Abnormal 06988-4) [facility] MethodistOccult blood, xnovh5342-12-57 20:16:15 Test Item Value Reference Range Interpretation Comments Occult blood, Negative for Specimen stool (test occult blood. InformationSpe tanyaen code = Source: StoolSp ecimen 2334-1) Site: Nonpreser nguyen [facility] MethodistComprehensive metabolic rclxt4448-70-39 04:23:36 Test Item Value Reference Range Interpretation Comments Sodium (test code = 136 135- 148 mEq/L 2951-2) Potassium (test code = 4.7 3.5- 5.0 mEq/L 2823-3) Chloride (test code = 96 98- 112 mEq/L L 2075-0) CO2 (test code = 2027-9) 25 24- 31 mEq/L Anion gap (test code = 15@ANIO 7- 15 mEq/L 30572-6) BUN (test code = 3094-0) 38 mg/dL 8-23 H Creatinine (test code = 4.73 mg/dL 0.7-1.2 H 2160-0) Glucose (test code = 77 mg/dL 65-99 2345-7) Calcium (test code = 8.7 mg/dL 8.8-10.2 L 64807-0) Protein (test code = 6.4 g/dL 6.3-8.3 [place] 9994.6-7.0 2885-2) g/dL1 dygl9805.4-7.6 g/dL7 months-6dzpn842 .1- 7.3 g/dL1-2 atjen362.6-7.5 g/dL>3 ucnhg187.0-8.0 g/mP93-0478413. 3-8 .3 g/dL Albumin (test code = 2.4 g/dL 3.5-5 L 1751-7) A/G ratio (test code = 0.6 0.7-3.8 L 1759-0) Alkaline phosphatase 77 U/L 40-129 (test code = 6768-6) AST (test code = 1920-8) 10 U/L 10-50 ALT (test code = 1742-6) 15 U/L 5-50 Total bilirubin (test 0.5 mg/dL 0-1.2 code = 1975-2) Lab Interpretation (test Abnormal code = 29715-7) [facility] ChanceECG 12 daxo1962-29-77 10:46:09 Test Item Value Reference Range Interpretation Comments Ventricular rate (test 115 code = 253) Atrial rate (test code 115 = 255) ID interval (test code 114 = 266) QRSD [...] change was found-- [facility] ChancePrepare RBC, 2 Hilht6238-76-48 20:18:00 Test Item Value Reference Range Interpretation Comments Product name (test code Apheresis Red Cell AS3 = 25) #2 LR Unit number (test code [id number] = [id number]) Product code (test code [id number] = 3092) Dispense status (test Transfused code = 24) Blood expiration date (test code = 302) Blood type code (test 5100 code = 308) Blood type (test code = O POSITIVE 1314) Compatibility (test Compatible code = 6400) [facility] Cruzmear nipqql1233-85-16 09:08:06 Test Item Value Reference Range Interpretation Comments Platelet slide review (test code Trell slt decr = 34642-8) Anisocytosis (test code = 702-1) Moderate Polychromasia (test code = Moderate 01417-6) Ovalocytes (test code = 774-0) Moderate [facility] MethodistAnti Xa, onxifucslhwdga0079-84-06 00:22:06 Test Item Value Reference Range Interpretation Comments Anti Xa, unfractionated <0.10 0.3-0.7 L Ther apeutic Range: (test code = 3274-8) 0.30 - 0.70 U/mL Lab Interpretation (test Abnormal code = 62839-0) [facility] MethodistProthrombin time with WKF8023-67-77 00:09:41 Test Item Value Reference Range Interpretation Comments Prothrombin time (test 14.8 11.5- 14.5 sec H code = 5902-2) INR (test code = 1.2 [facility] 05569-9) Normalized Rati o (INR) is a therapeuti c monitoring tool for patients who ar e stable on oral anticoagulant t herapy. An INR of 2.0-3 .0 is suggested for d eep vein thrombosis/pulm onary embolism. Lab Interpretation Abnormal (test code = 21310-5) [facility] MethodistRespiratory pathogen pvvyt8704-43-65 22:13:14 Test Item Value Reference Interpretation Comments Range Respiratory Positive for Influenza A Speci men pathogen panel A/H1-2008 [facility] ecimen (test code = virus Gris e: 2148) ----Negative for all [facility] ecimen Site: other pathogens Right tested:Negative for AdenovirusNegative for Coronavirus OOO1Nrcfrmas for Coronavirus AQ14Ukfnzntq for Coronavirus 229ENegative for Coronavirus HU33Rhoejzoi for Human MetapneumovirusNegative for Rhinovirus/EnterovirusNe gative for Influenza ANegative for Influenza A/C5Pwsecfcw for Influenza A/I2Bbdzgqni for Influenza BNegative for Parainfluenza Virus 1Negative [...] assay. Lab Abnormal Interpretation (test code = 91242-4) [facility] MethodistCT Angiogram Pe Lujmy8135-83-55 20:01:02Hm Interface, Radiology Results - 06/03/2019 8:04 [...] Kerr, at 8:00 PM, and she expressed [facility]LIM[facility]-0IB29310CBXbmivin WqfulnqtxC-qujlw4936-60-21 15:17:52 Test Item Value Reference Range Interpretation Comments D-dimer (test code = 1.73 0.00- 0.40 ug/mL H Uni ts are ug/ml 79123-7) FEU Fibrinogen Equivalent Unit .When combined with [...] malignancies. Lab Interpretation Abnormal (test code = 51802-9) [facility] MethodistType and ecuwdm0024-68-40 09:53:00 Test Item Value Reference Range Interpretation Comments ABO grouping (test code = 883-9) O Rh type (test code = 19300-0) POS Antibody screen (gel) (test code = NEG 890-4) [facility] Anama lambda free light chain with hcvas2405-65-91 07:19:49 Test Item Value Reference Range Interpretation Comments [place] light chain (test code = 289.08 mg/L 3.3-19.4 H 31717-0) Lambda light chain (test code = 143.97 mg/L 5.7-26.3 H 86207-1) [place] lambda ratio (test code = 2.01 0.26-1.65 H 16593-5) Lab Interpretation (test code = Abnormal 42323-3) [facility] pyp scan for cardiac kdsdwfbudop2874-73-82 15:40:00 Interface, Radiology Results In - 06/01/2019 3:40 PM [facility] Nuclear Cardiology and Cardiac CT [address] [place] [address] PYP Cardiac Amyloidosis Imaging ReportPat.Name: GABBY PEREZ Pat.ID: [id number] .Date: 06/01/2019 Refer.MD: AD QUINTERO MD Exam Time: 11:24:00 AM Study Type:PYP Cardiac Amyloidosis ImagingHeight: 71in Weight: 266lb BSA: 2.38 m2 Age: 1001/16/1940,79Y Sex: MALE Nuclear Tech:TRACY TavaresMT, [facility] CENTERJacob(N)Pat. Stat.:Inpatient NuclearEvent ID:[id number] Order ID: [id number] Reason for Study:R/O TTR amyloid History / [...] (ATTR). -------FINDINGS: Signed 06/01/2019 03:40 PMMohan Saucedo MDBillings MethodistT3, wsue0589-02-83 08:33:03 Test Item Value Reference Range Interpretation Comments T3, free (test code = 1.1 pg/mL 2.4-4.2 L REFERE NCE INTERVAL: 5404-9) Triiodothyronin e, Free (Free T3)A ccess complete set of age- and/or gender-specific reference inter vals for this test i n the [facility] ([employer]P erfor med by [place] [employer],[address] [place] [address] wlj .Dealer [employer], Jared Foster MD, La b. Director Lab Interpretation (test Abnormal code = 82834-2) [facility] cardiac calcium [id number] 19:15:00Interface, Radiology Results In - 05/31/2019 7:15 PM [facility] Nuclear Cardiology and Cardiac CT [address] [address] CT Calcium Scoring ReportPat.Name: GABBY PEREZ [facility].ID: [id number] .Date: 05/31/2019 Refer.MD: AD QUINTERO MD Exam Time: 3:04:00 PM Study Type:CT Calcium Scoring Height: 71in Weight: 266lbBSA: 2.38 m2 Age: 1001/16/1940,79Y Sex: MALE HR: 92 bpm Nuclear Tech:Ayo Aviles RT([place])(CT), [facility]/Abdiel [facility]. Stat.:Inpatient Nuclear Event ID:[id number] Order ID: [id number] Reason for Study:Eval Aortic Valve Procedures: CT Flash mode Race: Black SUMMARY: Technique: Sequential 3mm CT cuts were obtained through the chest using [facility] [employer] CT scanner with ECG gating. Interactive imageviewing [...] MethodistEchocardiogram complete w contrast and 3D if [id number] 13:49:00Interface, Radiology Results In - 05/31/2019 1:49 PM [facility] Echocardiography Report [address] [place] [address] Pat.Name: GABBY PEREZ Pat.ID: [id number].Date: 05/30/2019 Refer.MD: AD QUINTERO MD Exam Time: 6:00:00 PM Study Type:Routine Echo Height: 71in Weight: 305lb BSA: 2.53 m2 Age: 1001/16/1940,79Y Sex: MALE BP: 138/70 HR: 72 bpm Sonogrphr: EZRA Stock Pat. Stat.:Inpatient Room: [address] Study Status:Final Echo Event ID:[id number] Order ID: [id number] Reason for Study:Aortic stenosis evaluation.History / Clinical:Congestive [...] of 10 mmHg. MEASUREME NTS: 2DParasternal Long Howell AoAn 2.5 cm LVPWd 1.2 cm Ao [...] cm LVOT Area 3.5 cm2 DOPPLERAV For Flow/SLALY AV pkVel 344 cm/s (100-170) AV TVI [...] SVi 42ml/m2 Signed 05/31/2019 01:49 PMJodi Rose M.D.[facility] MethodistIonized tckwjha1110-14-21 07:45:51 Test Item Value Reference Range Interpretation Comments pH (test code = 2753-2) 7.38 Ionized calcium (test code = 1.06 mmol/L 1.11-1.32 L ) Lab Interpretation (test code = Abnormal 92808-8) [facility] MethodistHeparin PF4 antibody (IgG)2019-05-31 02:31:58 Test Item Value Reference Range Interpretation Comments Heparin PF4 Ab OD reading (test code 0.206 0.000-0.399 = 1500) Heparin PF4 Ab, IgG (test code = Negative Negative 78620-0) [facility] MethodistUs duplex arterial lower olmflfwbm3278-13-12 21:50:00Interface, Radiology Results In - 05/31/2019 9:03 AM [facility] Vascular Diagnostic Laboratory Physiologic Arterial Leg Report [address]Name: GABBY PEREZ Pat.ID: [id number] .Date: 05/30/2019 Refer.MD: AD QUINTERO MD Exam Time: 2:32:00 PM Study Type:Physiologic Leg Age: 1001/16/1940,79Y Sex: MALE Sonogrphr: Priti Recinos RVT Pat. Stat.:Inpatient Room: WT9-0905-A Tape Vol: RF, CPT - 4: 08886 Echo Event ID:[id number] Order ID: [id number] Reason for Study:Bilateral decreased pedal pulses. History of ESRD onHD via left AVFm CHFm AICD,aortic stenosis, cardiomyopathy, DMhypoxic respiratory failure, chronic trach, PAD.Procedures: Ankle/brachial pressures, Digit pressuresRace: B -----SUMMARY: ANKLE/BRACHIAL INDEX: RIGHT LEFT Brachial Artery Zrtpeutw434 mmHg AV-Fistula DP 0 mmHg 0 mmHg [...] FINDINGS: Signed 05/30/2019 9:50:00 Elizabeth Yung MD, VIBillings [facility] ankle brachial zdrgo2192-89-22 21:50:00Interface, Radiology Results In - 05/30/2019 9:50 PM [facility] Vascular Diagnostic Laboratory Physiologic Arterial Leg Report [address] [address] Pat.Name: GABBY PEREZ Pat.ID: [id number] .Date: 05/30/2019 Refer.MD: AD QUINTERO MD Exam Time: 2:32:00 PM Study Type:Physiologic Leg Age: 1001/16/1940,79Y Sex: MALE Sonogrphr: Priti Recinos RVT Pat. Stat.:Inpatient Room: [address] Tape Vol: RF,CPT - 4: 45026 Echo Event ID:[id number] Order ID: [id number] Reason for Study:Bilateral decreased pedal pulses. History of ESRD onHD via left AVFm CHFm AICD,aortic stenosis, cardiomyopathy, DMhypoxic respiratory failure, chronic trach, PAD.Procedures: Ankle/brachial pressures, Digit pressuresRace: B -----SUMMARY: ANKLE/BRACHIAL INDEX: RIGHT LEFT Brachial Artery Qyvddchv918 mmHg AV-Fistula DP 0 mmHg 0 mmHg [...] FINDINGS: Signed 05/30/2019 09:50 PMMarcellus Yung MD, RPVIBillings MethodistUs duplex arterial upper fiylifmgt9118-72-05 17:50:00Interface, Radiology Results In - 05/30/2019 5:50 PM [facility] Vascular Ultrasound Laboratory Upper Extremity Arterial Report [address]Name: GABBY PEREZ Pat.ID: [id number] .Date: 05/30/2019 Refer.MD: AD QUINTERO MD Exam Time: 3:21:00 PM Study Type:UE Arterial Age: 1001/16/1940,79Y Sex: MALE Sonogrphr: PAUL Herrera. Stat.:Inpatient Room: [address] Vol: RF, CPT - 4: [address]Sspp Event ID:[id number] Order ID: [id number] Reason for Study:Bilateral armpain and swelling. History [...] fistula. FINDINGS:- Signed 05/30/2019:50 Elizabeth Yung MD, RPVIHoulongwood hospital HuptjkmrpEUP9890-61-57 12:55:52 Test Item Value Reference Range Interpretation Comments LDH (test code = 22046-9) 267 U/L 87-225 H Lab Interpretation (test code = Abnormal 40338-8) [facility] MethodistManual fqwyybcatizc5488-60-10 06:07:32 Test Item Value Reference Range Interpretation Comments Manual differential (test code = PERFORMED 80795-2) Neutrophils (test code = 08787-4) 81.0 % 39-69 H Lymphocytes (test code = 47600-0) 10.0 % 25-45 L Monocytes (test code = 52308-6) 8.0 % 0-10 Eosinophils (test code = 68877-4) 1.0 % 0-5 Basophils (test code = 70534-6) 0.0 % 0-1 Metamyelocytes (test code = 740-1) 0 % Promyelocytes (test code = 783-1) 0 % Platelet slide review (test code = Decreased A 66569-2) Anisocytosis (test code = 702-1) Moderate Polychromasia (test code = Moderate 30548-6) Tear drop cells (test code = Occasional 7791-7) Nunez cells (test code = 7790-9) Moderate A Enlarged platelets (test code = Moderate A 32272-7) Lab Interpretation (test code = Abnormal 92452-3) Percy MethodistT4, kpwx7270-40-93 01:47:34 Test Item Value Reference Range Interpretation Comments T4, free (test code = 3024-7) 0.7 ng/dL 0.9-1.7 L Lab Interpretation (test code = Abnormal 72985-6) [facility] MethodistThyroid stimulating sifxkll0032-61-40 01:47:34 Test Item Value Reference Range Interpretation Comments TSH (test code = 3016-3) 0.63 0.27- 4.20 uIU/mL [facility] MethodistUric acid qjcjp5112-04-48 01:19:56 Test Item Value Reference Range Interpretation Comments Uric acid (test code = 3084-1) 4.5 mg/dL 3.4-7 [facility] MethodistHepatitis B surface pbcxatc1800-47-38 16:11:47 Test Item Value Reference Range Interpretation Comments Hepatitis B surface Ag (test Non-reactive Non-reactive code = 5195-3) Percy ChanceHemoglobin L3a2913-42-53 10:29:18 Test Item Value Reference Range Interpretation Comments Hemoglobin A1C (test 6.5 % 4-5.6 H HbA1c c utoffs for code = 93195-9) diagnosing diabetes:4.0% - 5.6% = normal5.7% - 6.4% = increased risk for diabetes (prediabetes)9> =6.5% = qanpaosy2Gldx s for glycemic contro l (ADA 2016)< 7.0% Ta rget for non adults with dwight betes. More or less stringent targe ts may be appropriate for individual lui ents. <7.5% Target for Children and adolescents wit h type 1 diabetes. Lab Interpretation (test Abnormal code = 37178-4) Percy Chance
[2019-11-04] MEDS ORDERED: NA CHLORIDE 0.9% 0 ML ONE (07:02)
[2019-11-04] MEDS ORDERED: NA CHLORIDE 0.9% 1,000 ML ONE (07:04)
[2019-11-04] MEDS ORDERED: LIDOCAINE 1% MPF 5 ML VIAL ONE (07:23)
[2019-11-04] MEDS ORDERED: FENTANYL CITR 100 MCG/2 ML ONE (07:23)
[2019-11-04] MEDS ORDERED: propofoL 200 MG/20 ML VIAL IV ONE (07:23)
[2019-11-04] MEDS ORDERED: BUPIVACAINE 0.5% PF 10 ML VIAL ONE (07:30)
[2019-11-04] MEDS ORDERED: ALBUTEROL 2.5 MG/3 ML NEB SOL ONE (07:35)
[2019-11-04] MEDS ORDERED: NS 0.9% VIAL 10 ML ONE (08:39)
[2019-11-04] MEDS ORDERED: CEFAZOLIN SODIUM 1 GM/VIAL ONE (08:39)
--- NOTE | 2019-11-04 08:51 | P.BOP ---
Preoperative diagnosis: gangrenous destructive osteomyelitis left second toe, PVD, ESRD Postoperative diagnosis: same Primary procedure: Amputation of gangrenous left second toe Estimated blood loss: <5cc Specimen: toe Findings: as above Anesthesia: General Complications: None Transferred to: Recovery Room Condition: Good
--- NOTE | 2019-11-04 09:36 | OP ---
Date of Procedure: 11/04/2019 Surgeon: Tristin Guajardo MD Preoperative Diagnoses: Left second toe gangrene, destructive osteomyelitis, end-stage renal disease , hypertension, cardiac disease, peripheral vascular disease. Postoperative Diagnoses: Left second toe gangrene, destructive osteomyelitis, end-stage renal diseas e, hypertension, cardiac disease, peripheral vascular disease. Procedure: Left second toe amputations. Anesthesia: Sedation plus local. Complications: None. Indication: This is a case of a male who comes to us with destructive osteomyelitis, bone sticking o ut of his wound. With the risk of sepsis, the patient has gangrene over the area, severe multiple me dical problems, but this does need to be removed. The bone is falling apart and breaking in pieces. The benefits, alternatives, and risks of amputation of the left second toe fully explained to the pa tient which include, but not limited to infection, bleeding, damage to adjacent structures as complic ation, nonhealing wound, CA, and even . He also understands that this may not relieve his sympt oms. He might need more than one surgical intervention. He understood, signed a consent. Description Of Procedure: The patient was brought to the operating room, placed in supine position. Anesthesia was done without complication. Left foot was prepped and draped in sterile fashion. A t tobin-out was called. Local anesthesia was applied followed by sharp incision of the skin. We proceed ed to do an amputation of this area at the level of the metatarsophalangeal joint. The bone was fall ing apart, has destructive osteomyelitis. We were able to remove this and then basically excoriate t he cartilage left behind and then the toe was removed. The area was packed with wet-to-dry dressing. The patient tolerated the procedure well. The patient was sent to recovery in stable condition. Disposition: Home with dry dressing daily. [facility]. Medications: Include Cipro 500 p.o. daily and the patient will continue with home health agency. DONNA/PATRICK Voice ID: [id number] Report ID: [id number]
[2019-11-04 10:25] VITALS: BP 126/73; TEMP 97.3; O2SAT 99
== END 2019-11-04 10:20 | disposition home or self-care (01) ==
LOC: OR 06:47
PROVIDERS: ATTEND Surgery
PROC: 0Y6S0Z0 Detachment at Left 2nd Toe, Complete, Open Approach (ICD-10-PCS; principal; 2019-11-04 07:30)
DX: E11.621 Type 2 diabetes mellitus with foot ulcer (principal); L97.526 Non-pressure chronic ulcer of other part of left foot with bone involvement without evidence of necrosis; M86.8X7 Other osteomyelitis, ankle and foot; E11.22 Type 2 diabetes mellitus with diabetic chronic kidney disease; I12.0 Hypertensive chronic kidney disease with stage 5 chronic kidney disease or end stage renal disease; N18.6 End stage renal disease
CPT/HCPCS: 93005; 85025; 80048; 36415; 82947 ×2; 88305; 88311; 71046; 28820; J3010; J7030; J0690; J2704; J7040

== ENCOUNTER 2019-11-28 17:46 | Inpatient (IN) | payer OTHER, MEDICARE ==
--- OUTSIDE RECORDS SUMMARY | 2019-11-28 17:50 | XMS REPORT | Clinical Summary ---
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 angina pectoris Overview: Added automatically from request for saud carrizalesy [id number] Chest pain 07/22/2017 Overview: Added automatically from request for saud carrizalesy [id number] Angina pectoris 07/21/2017 Coronary artery disease of [place] artery of [place] hea rt with stable 07/21/2017 angina pectoris [...] Intake Access 03/08/2019 Office Visit Cardiology [facility] Dilated cardiom yopathy (HCC) (Primary Dx); MD Susan Coronary artery disease involving [place] coronary artery of [place] heart without angina pectoris after 11/27/2018 Family History Relation Name Status Comments Father [...] Comments Blood Pressure 131/59 06/09/2019 6:00 PM GENERAL COUNSEL Pulse 86 06/09/2019 7:30 PM GENERAL COUNSEL Temperature 36.7 C (98 F) 06/09/2019 5:00 PM GENERAL COUNSEL Respiratory Rate 22 06/09/2019 7:30 PM GENERAL COUNSEL Oxygen Saturation 100% 06/09/2019 7:16 PM GENERAL COUNSEL Inhaled Oxygen Concentration - - Weight 124 kg (274 lb 7.6 oz) 06/09/2019 6:00 AM GENERAL COUNSEL Height 180.3 cm (5' 11") 05/28/2019 9:15 AM GENERAL COUNSEL Body Mass Index 38.28 05/28/2019 9:15 AM GENERAL COUNSEL Plan of Treatment Health Maintenance Due Date Last Done Comments DIABETIC RETINAL EYE EXAM 1940 DIABETIC FOOT EXAM 01/12/1950 URINE MICROALBUMIN 01/12/1949 SHINGLES VACCINES (#1) 01/12/1989 65+ PNEUMOCOCCAL VACCINE (1 of 2 - PCV13) 01/13/2004 INFLUENZA VACCINE 12/13/2019 Implants Implanted Type Area Auto Adjudication Specialist Device Shelf Model / Identifier Expiration Serial / Date Lot Device Vasclr Clsr Vasoactive Intstnl Peptd 8fr Angio- Seal - [id number] Cardiovascular N/A: 06/10/2017 [id number] / Implanted: 08/07/2016 at [facility] (Quantity not on file) Implants N/A / [id number] Stent Bili Protege Everflex Slf-Xpndbl 120cm [id number] - [id number] Coronary Stents N/A: EV3 INC 05/03/2017 [id number] 12 0 / Implanted: 08/07/2016 at [facility] (Quantity not on file) N/A / [id number] Procedures Procedure Name Priority Date/Time Associated Comments Diagnosis POC GLUCOSE Routine 06/09/2019 4:35 Results for this PM GENERAL COUNSEL procedure are i n the results section. POC GLUCOSE Routine 06/09/2019 12:23 Results for this PM GENERAL COUNSEL procedure are i n the results section. POC GLUCOSE Routine 06/09/2019 11:19 Results for this AM GENERAL COUNSEL procedure are i n the results section. POC GLUCOSE Routine 06/09/2019 8:08 Results for this AM GENERAL COUNSEL procedure are i n the results section. POC GLUCOSE Routine 06/09/2019 5:00 Results for this AM GENERAL COUNSEL procedure are i n the results section. HC COMPLETE BLD COUNT Routine 06/09/2019 4:45 Re sults for this W/AUTO DIFF AM GENERAL COUNSEL procedure are i n the results section. PARTIAL THROMBOPLASTIN Routine 06/09/2019 4:45 R esults for this TIME (PTT) AM GENERAL COUNSEL procedure are i n the results section. POC GLUCOSE Routine 06/09/2019 2:07 Results for this AM GENERAL COUNSEL procedure are i n the results section. POC GLUCOSE Routine 06/08/2019 8:30 Results for this PM GENERAL COUNSEL procedure are i n the results section. POC GLUCOSE Routine 06/08/2019 5:13 Results for this PM GENERAL COUNSEL procedure are i n the results section. HEMODIALYSIS Routine 06/08/2019 3:06 PM GENERAL COUNSEL XR CHEST 1 VW PORTABLE Routine 06/08/2019 12:32 R esults for this PM GENERAL COUNSEL procedure are i n the results section. POC GLUCOSE Routine 06/08/2019 12:07 Results for this PM GENERAL COUNSEL procedure are i n the results section. POC GLUCOSE Routine 06/08/2019 7:38 Results for this AM GENERAL COUNSEL procedure are i n the results section. ESTIMATED GFR Routine 06/08/2019 5:50 Results fo r this AM GENERAL COUNSEL procedure are i n the results section. PHOSPHORUS LEVEL Routine 06/08/2019 5:50 Results for this AM GENERAL COUNSEL procedure are i n the results section. MAGNESIUM LEVEL Routine 06/08/2019 5:50 Results for this AM GENERAL COUNSEL procedure are i n the results section. BASIC METABOLIC PANEL Routine 06/08/2019 5:50 Re sults for this AM GENERAL COUNSEL procedure are i n the results section. HC COMPLETE BLD COUNT Routine 06/08/2019 5:50 Re sults for this W/AUTO DIFF AM GENERAL COUNSEL procedure are i n the results section. PARTIAL THROMBOPLASTIN Routine 06/08/2019 5:50 R esults for this TIME (PTT) AM GENERAL COUNSEL procedure are i n the results section. POC GLUCOSE Routine 06/08/2019 4:26 Results for this AM GENERAL COUNSEL procedure are i n the results section. POC GLUCOSE Routine 06/08/2019 12:18 Results for this AM GENERAL COUNSEL procedure are i n the results section. POC GLUCOSE Routine 06/07/2019 8:16 Results for this PM GENERAL COUNSEL procedure are i n the results section. POC GLUCOSE Routine 06/07/2019 4:22 Results for this PM GENERAL COUNSEL procedure are i n the results section. POC GLUCOSE Routine 06/07/2019 3:50 Results for this PM GENERAL COUNSEL procedure are i n the results section. POC GLUCOSE Routine 06/07/2019 11:39 Results for this AM GENERAL COUNSEL procedure are i n the results section. ARTERIAL BLOOD GAS Routine 06/07/2019 11:34 Resul ts for this AM GENERAL COUNSEL procedure are i n the results section. HEMODIALYSIS Routine 06/07/2019 10:44 AM GENERAL COUNSEL POC GLUCOSE Routine 06/07/2019 7:42 Results for this AM GENERAL COUNSEL procedure are i n the results section. US DUPLEX VENOUS LOWER Routine 06/07/2019 6:20 R esults for this EXTREMITY BILATERAL AM GENERAL COUNSEL procedur e are in the results section. POC GLUCOSE Routine 06/07/2019 4:27 Results for this AM GENERAL COUNSEL procedure are i n the results section. CBC HEMOGRAM Routine 06/07/2019 3:50 Results for this AM GENERAL COUNSEL procedure are i n the results section. PARTIAL THROMBOPLASTIN Routine 06/07/2019 3:50 R esults for this TIME (PTT) AM GENERAL COUNSEL procedure are i n the results section. POC GLUCOSE Routine 06/07/2019 12:19 Results for this AM GENERAL COUNSEL procedure are i n the results section. POC GLUCOSE Routine 06/06/2019 8:19 Results for this PM GENERAL COUNSEL procedure are i n the results section. POC GLUCOSE Routine 06/06/2019 6:13 Results for this PM GENERAL COUNSEL procedure are i n the results section. OCCULT BLOOD, STOOL Routine 06/06/2019 5:50 Resu lts for this PM GENERAL COUNSEL procedure are i n the results section. POC GLUCOSE Routine 06/06/2019 2:46 Results for this PM GENERAL COUNSEL procedure are i n the results section. POC GLUCOSE Routine 06/06/2019 12:21 Results for this PM GENERAL COUNSEL procedure are i n the results section. POC GLUCOSE Routine 06/06/2019 8:00 Results for this AM GENERAL COUNSEL procedure are i n the results section. POC GLUCOSE Routine 06/06/2019 4:29 Results for this AM GENERAL COUNSEL procedure are i n the results section. ESTIMATED GFR Routine 06/06/2019 3:35 Results fo r this AM GENERAL COUNSEL procedure are i n the results section. PARTIAL THROMBOPLASTIN Routine 06/06/2019 3:35 R esults for this TIME (PTT) AM GENERAL COUNSEL procedure are i n the results section. COMPREHENSIVE METABOLIC Routine 06/06/2019 3:35 Results for this PANEL AM GENERAL COUNSEL procedure are i n the results section. PHOSPHORUS LEVEL Routine 06/06/2019 3:35 Results for this AM GENERAL COUNSEL procedure are i n the results section. MAGNESIUM LEVEL Routine 06/06/2019 3:35 Results for this AM GENERAL COUNSEL procedure are i n the results section. HC COMPLETE BLD COUNT Routine 06/06/2019 3:35 Re sults for this W/AUTO DIFF AM GENERAL COUNSEL procedure are i n the results section. POC GLUCOSE Routine 06/06/2019 12:25 Results for this AM GENERAL COUNSEL procedure are i n the results section. ARTERIAL BLOOD GAS STAT 06/05/2019 9:42 Resul ts for this PM GENERAL COUNSEL procedure are i n the results section. POC GLUCOSE Routine 06/05/2019 8:16 Results for this PM GENERAL COUNSEL procedure are i n the results section. POC GLUCOSE Routine 06/05/2019 5:20 Results for this PM GENERAL COUNSEL procedure are i n the results section. POC GLUCOSE Routine 06/05/2019 4:15 Results for this PM GENERAL COUNSEL procedure are i n the results section. POC GLUCOSE Routine 06/05/2019 12:10 Results for this PM GENERAL COUNSEL procedure are i n the results section. XR CHEST 1 VW PORTABLE Routine 06/05/2019 8:59 R esults for this AM GENERAL COUNSEL procedure are i n the results section. POC GLUCOSE Routine 06/05/2019 8:18 Results for this AM GENERAL COUNSEL procedure are i n the results section. ESTIMATED GFR Routine 06/05/2019 4:20 Results fo r this AM GENERAL COUNSEL procedure are i n the results section. PARTIAL THROMBOPLASTIN Routine 06/05/2019 4:20 R esults for this TIME (PTT) AM GENERAL COUNSEL procedure are i n the results section. COMPREHENSIVE METABOLIC Routine 06/05/2019 4:20 Results for this PANEL AM GENERAL COUNSEL procedure are i n the results section. PHOSPHORUS LEVEL Routine 06/05/2019 4:20 Results for this AM GENERAL COUNSEL procedure are i n the results section. MAGNESIUM LEVEL Routine 06/05/2019 4:20 Results for this AM GENERAL COUNSEL procedure are i n the results section. HC COMPLETE BLD COUNT Routine 06/05/2019 4:20 Re sults for this W/AUTO DIFF AM GENERAL COUNSEL procedure are i n the results section. POC GLUCOSE Routine 06/05/2019 4:18 Results for this AM GENERAL COUNSEL procedure are i n the results section. POC GLUCOSE Routine 06/05/2019 12:57 Results for this AM GENERAL COUNSEL procedure are i n the results section. TRANSFUSE RED BLOOD Routine 06/04/2019 10:32 CELLS PM GENERAL COUNSEL TRANSFUSE RED BLOOD Routine 06/04/2019 9:21 CELLS PM GENERAL COUNSEL POC GLUCOSE Routine 06/04/2019 8:57 Results for this PM GENERAL COUNSEL procedure are i n the results section. POC GLUCOSE Routine 06/04/2019 4:48 Results for this PM GENERAL COUNSEL procedure are i n the results section. PARTIAL THROMBOPLASTIN Timed 06/04/2019 3:15 R esults for this TIME (PTT) PM GENERAL COUNSEL procedure are i n the results section. POC GLUCOSE Routine 06/04/2019 12:13 Results for this PM GENERAL COUNSEL procedure are i n the results section. XR CHEST 1 VW PORTABLE Routine 06/04/2019 10:45 R esults for this AM GENERAL COUNSEL procedure are i n the results section. CBC HEMOGRAM Routine 06/04/2019 8:44 Results for this AM GENERAL COUNSEL procedure are i n the results section. POC GLUCOSE Routine 06/04/2019 7:39 Results for this AM GENERAL COUNSEL procedure are i n the results section. HEMODIALYSIS Routine 06/04/2019 7:32 AM GENERAL COUNSEL SMEAR REVIEW Routine 06/04/2019 5:50 Results for this AM GENERAL COUNSEL procedure are i n the results section. ESTIMATED GFR Routine 06/04/2019 5:50 Results fo r this AM GENERAL COUNSEL procedure are i n the results section. PARTIAL THROMBOPLASTIN Routine 06/04/2019 5:50 R esults for this TIME (PTT) AM GENERAL COUNSEL procedure are i n the results section. COMPREHENSIVE METABOLIC Routine 06/04/2019 5:50 Results for this PANEL AM GENERAL COUNSEL procedure are i n the results section. PHOSPHORUS LEVEL Routine 06/04/2019 5:50 Results for this AM GENERAL COUNSEL procedure are i n the results section. MAGNESIUM LEVEL Routine 06/04/2019 5:50 Results for this AM GENERAL COUNSEL procedure are i n the results section. HC COMPLETE BLD COUNT Routine 06/04/2019 5:50 Re sults for this W/AUTO DIFF AM GENERAL COUNSEL procedure are i n the results section. POC GLUCOSE Routine 06/04/2019 4:19 Results for this AM GENERAL COUNSEL procedure are i n the results section. POC GLUCOSE Routine 06/04/2019 12:27 Results for this AM GENERAL COUNSEL procedure are i n the results section. ANTI XA, UNFRACTIONATED Routine 06/03/2019 11:20 Results for this PM GENERAL COUNSEL procedure are i n the results section. CBC HEMOGRAM Routine 06/03/2019 11:20 Results for this PM GENERAL COUNSEL procedure are i n the results section. PARTIAL THROMBOPLASTIN Routine 06/03/2019 11:20 R esults for this TIME (PTT) PM GENERAL COUNSEL procedure are i n the results section. PROTHROMBIN TIME WITH Routine 06/03/2019 11:20 Re sults for this INR PM GENERAL COUNSEL procedure are i n the results section. POC GLUCOSE Routine 06/03/2019 8:05 Results for this PM GENERAL COUNSEL procedure are i n the results section. CT ANGIOGRAM PE CHEST STAT 06/03/2019 7:51 Re sults for this PM GENERAL COUNSEL procedure are i n the results section. POC GLUCOSE Routine 06/03/2019 4:44 Results for this PM GENERAL COUNSEL procedure are i n the results section. ECG 12-LEAD STAT 06/03/2019 2:44 Results for this PM GENERAL COUNSEL procedure are i n the results section. D-DIMER Routine 06/03/2019 2:43 Results for this PM GENERAL COUNSEL procedure are i n the results section. XR CHEST 1 VW PORTABLE STAT 06/03/2019 2:38 R esults for this PM GENERAL COUNSEL procedure are i n the results section. RESPIRATORY PATHOGEN Routine 06/03/2019 2:36 Res ults for this PANEL PM GENERAL COUNSEL procedure are i n the results section. ARTERIAL BLOOD GAS STAT 06/03/2019 1:48 Resul ts for this PM GENERAL COUNSEL procedure are i n the results section. POC GLUCOSE Routine 06/03/2019 12:18 Results for this PM GENERAL COUNSEL procedure are i n the results section. XR CHEST 1 VW PORTABLE Timed 06/03/2019 10:58 R esults for this AM GENERAL COUNSEL procedure are i n the results section. POC GLUCOSE Routine 06/03/2019 8:05 Results for this AM GENERAL COUNSEL procedure are i n the results section. POC GLUCOSE Routine 06/03/2019 6:16 Results for this AM GENERAL COUNSEL procedure are i n the results section. ESTIMATED GFR Routine 06/03/2019 3:30 Results fo r this AM GENERAL COUNSEL procedure are i n the results section. BASIC METABOLIC PANEL Routine 06/03/2019 3:30 Re sults for this AM GENERAL COUNSEL procedure are i n the results section. HC COMPLETE BLD COUNT Routine 06/03/2019 3:30 Re sults for this W/AUTO DIFF AM GENERAL COUNSEL procedure are i n the results section. POC GLUCOSE Routine 06/03/2019 3:03 Results for this AM GENERAL COUNSEL procedure are i n the results section. POC GLUCOSE Routine 06/02/2019 10:08 Results for this PM GENERAL COUNSEL procedure are i n the results section. POC GLUCOSE Routine 06/02/2019 8:23 Results for this PM GENERAL COUNSEL procedure are i n the results section. POC GLUCOSE Routine 06/02/2019 4:39 Results for this PM GENERAL COUNSEL procedure are i n the results section. ARTERIAL BLOOD GAS STAT 06/02/2019 3:25 Resul ts for this PM GENERAL COUNSEL procedure are i n the results section. XR CHEST 1 VW PORTABLE STAT 06/02/2019 3:20 R esults for this PM GENERAL COUNSEL procedure are i n the results section. TRANSFUSE RED BLOOD Routine 06/02/2019 3:17 CELLS PM GENERAL COUNSEL POC GLUCOSE Routine 06/02/2019 1:34 Results for this PM GENERAL COUNSEL procedure are i n the results section. PREPARE RBC Routine 06/02/2019 8:34 Results for this AM GENERAL COUNSEL procedure are i n the results section. PREPARE RBC Routine 06/02/2019 8:34 Results for this AM GENERAL COUNSEL procedure are i n the results section. TYPE AND SCREEN Routine 06/02/2019 8:34 Results for this AM GENERAL COUNSEL procedure are i n the results section. CBC HEMOGRAM Routine 06/02/2019 5:20 Results for this AM GENERAL COUNSEL procedure are i n the results section. POC GLUCOSE Routine 06/01/2019 10:56 Results for this PM GENERAL COUNSEL procedure are i n the results section. POC GLUCOSE Routine 06/01/2019 9:44 Results for this PM GENERAL COUNSEL procedure are i n the results section. HEMODIALYSIS Routine 06/01/2019 5:08 PM GENERAL COUNSEL POC GLUCOSE Routine 06/01/2019 5:04 Results for this PM GENERAL COUNSEL procedure are i n the results section. CV PYP SCAN FOR CARDIAC Routine 06/01/2019 3:12 Results for this AMYLOIDOSIS PM GENERAL COUNSEL procedure are i n the results section. POC GLUCOSE Routine 06/01/2019 12:04 Results for this PM GENERAL COUNSEL procedure are i n the results section. ECG 12-LEAD STAT 06/01/2019 11:32 Results for this AM GENERAL COUNSEL procedure are i n the results section. XR CHEST 1 VW PORTABLE STAT 06/01/2019 11:20 R esults for this AM GENERAL COUNSEL procedure are i n the results section. POC GLUCOSE Routine 06/01/2019 7:50 Results for this AM GENERAL COUNSEL procedure are i n the results section. ESTIMATED GFR Routine 06/01/2019 5:20 Results fo r this AM GENERAL COUNSEL procedure are i n the results section. BASIC METABOLIC PANEL Routine 06/01/2019 5:20 Re sults for this AM GENERAL COUNSEL procedure are i n the results section. KAPPA LAMBDA FREE LIGHT Routine 06/01/2019 5:20 Results for this CHAIN WITH RATIO AM GENERAL COUNSEL procedure a re in the results section. POC GLUCOSE Routine 05/31/2019 9:16 Results for this PM GENERAL COUNSEL procedure are i n the results section. ECG 12-LEAD STAT 05/31/2019 5:44 Results for this PM GENERAL COUNSEL procedure are i n the results section. ESTIMATED GFR STAT 05/31/2019 5:33 Results fo r this PM GENERAL COUNSEL procedure are i n the results section. MAGNESIUM LEVEL STAT 05/31/2019 5:33 Results for this PM GENERAL COUNSEL procedure are i n the results section. BASIC METABOLIC PANEL STAT 05/31/2019 5:33 Re sults for this PM GENERAL COUNSEL procedure are i n the results section. POC GLUCOSE Routine 05/31/2019 4:58 Results for this PM GENERAL COUNSEL procedure are i n the results section. CT CARDIAC CALCIUM Routine 05/31/2019 3:35 Resul ts for this SCORE PM GENERAL COUNSEL procedure are i n the results section. POC GLUCOSE Routine 05/31/2019 12:29 Results for this PM GENERAL COUNSEL procedure are i n the results section. HEMODIALYSIS Routine 05/31/2019 9:45 AM GENERAL COUNSEL POC GLUCOSE Routine 05/31/2019 7:59 Results for this AM GENERAL COUNSEL procedure are i n the results section. CBC HEMOGRAM Routine 05/31/2019 4:10 Results for this AM GENERAL COUNSEL procedure are i n the results section. T3, FREE Routine 05/31/2019 4:10 Results for this AM GENERAL COUNSEL procedure are i n the results section. ESTIMATED GFR Routine 05/31/2019 12:00 Results fo r this AM GENERAL COUNSEL procedure are i n the results section. PHOSPHORUS LEVEL Routine 05/31/2019 12:00 Results for this AM GENERAL COUNSEL procedure are i n the results section. IONIZED CALCIUM Routine 05/31/2019 12:00 Results for this AM GENERAL COUNSEL procedure are i n the results section. MAGNESIUM LEVEL Routine 05/31/2019 12:00 Results for this AM GENERAL COUNSEL procedure are i n the results section. BASIC METABOLIC PANEL Routine 05/31/2019 12:00 Re sults for this AM GENERAL COUNSEL procedure are i n the results section. POC GLUCOSE Routine 05/30/2019 8:56 Results for this PM GENERAL COUNSEL procedure are i n the results section. TTE COMPLETE, WO Routine 05/30/2019 7:00 Results for this CONTRAST, W DOPPLER PM GENERAL COUNSEL procedur e are in [id number]) the results section. POC GLUCOSE Routine 05/30/2019 5:24 Results for this PM GENERAL COUNSEL procedure are i n the results section. US DUPLEX ARTERIAL STAT 05/30/2019 5:00 Resul ts for this UPPER EXTREMITY PM GENERAL COUNSEL procedure ar e in BILATERAL the results section. US ANKLE BRACHIAL INDEX Routine 05/30/2019 3:30 Results for this PM GENERAL COUNSEL procedure are i n the results section. US DUPLEX ARTERIAL Routine 05/30/2019 3:30 Resul ts for this LOWER EXTREMITY PM GENERAL COUNSEL procedure ar e in BILATERAL the results section. POC GLUCOSE Routine 05/30/2019 11:29 Results for this AM GENERAL COUNSEL procedure are i n the results section. ARTERIAL BLOOD GAS Routine 05/30/2019 11:24 Resul ts for this AM GENERAL COUNSEL procedure are i n the results section. LDH Routine 05/30/2019 11:05 Results for this AM GENERAL COUNSEL procedure are i n the results section. POC GLUCOSE Routine 05/30/2019 7:30 Results for this AM GENERAL COUNSEL procedure are i n the results section. XR CHEST 1 VW PORTABLE Routine 05/30/2019 4:10 R esults for this AM GENERAL COUNSEL procedure are i n the results section. POC GLUCOSE Routine 05/30/2019 3:58 Results for this AM GENERAL COUNSEL procedure are i n the results section. ESTIMATED GFR Routine 05/30/2019 12:50 Results fo r this AM GENERAL COUNSEL procedure are i n the results section. PHOSPHORUS LEVEL Routine 05/30/2019 12:50 Results for this AM GENERAL COUNSEL procedure are i n the results section. MAGNESIUM LEVEL Routine 05/30/2019 12:50 Results for this AM GENERAL COUNSEL procedure are i n the results section. IONIZED CALCIUM Routine 05/30/2019 12:50 Results for this AM GENERAL COUNSEL procedure are i n the results section. BASIC METABOLIC PANEL Routine 05/30/2019 12:50 Re sults for this AM GENERAL COUNSEL procedure are i n the results section. T4, FREE Routine 05/30/2019 12:50 Results for this AM GENERAL COUNSEL procedure are i n the results section. THYROID STIMULATING Routine 05/30/2019 12:50 Resu lts for this HORMONE AM GENERAL COUNSEL procedure are i n the results section. URIC ACID LEVEL Routine 05/30/2019 12:50 Results for this AM GENERAL COUNSEL procedure are i n the results section. MANUAL DIFFERENTIAL Routine 05/30/2019 12:20 Resu lts for this AM GENERAL COUNSEL procedure are i n the results section. CBC WITH PLATELET AND Routine 05/30/2019 12:20 Re sults for this DIFFERENTIAL AM GENERAL COUNSEL procedure are i n the results section. POC GLUCOSE Routine 05/29/2019 11:45 Results for this PM GENERAL COUNSEL procedure are i n the results section. POC GLUCOSE Routine 05/29/2019 7:47 Results for this PM GENERAL COUNSEL procedure are i n the results section. POC GLUCOSE Routine 05/29/2019 4:16 Results for this PM GENERAL COUNSEL procedure are i n the results section. POC GLUCOSE Routine 05/29/2019 11:23 Results for this AM GENERAL COUNSEL procedure are i n the results section. HEPARIN PF4 ANTIBODY Routine 05/29/2019 9:41 Res ults for this (IGG) AM GENERAL COUNSEL procedure are i n the results section. POC GLUCOSE Routine 05/29/2019 7:36 Results for this AM GENERAL COUNSEL procedure are i n the results section. XR CHEST 1 VW PORTABLE Routine 05/29/2019 4:02 R esults for this AM GENERAL COUNSEL procedure are i n the results section. POC GLUCOSE Routine 05/29/2019 4:00 Results for this AM GENERAL COUNSEL procedure are i n the results section. ECG 12-LEAD Routine 05/29/2019 3:42 Results for this AM GENERAL COUNSEL procedure are i n the results section. HC COMPLETE BLD COUNT Routine 05/29/2019 1:00 Re sults for this W/AUTO DIFF AM GENERAL COUNSEL procedure are i n the results section. ESTIMATED GFR Routine 05/29/2019 12:33 Results fo r this AM GENERAL COUNSEL procedure are i n the results section. PHOSPHORUS LEVEL Routine 05/29/2019 12:33 Results for this AM GENERAL COUNSEL procedure are i n the results section. MAGNESIUM LEVEL Routine 05/29/2019 12:33 Results for this AM GENERAL COUNSEL procedure are i n the results section. IONIZED CALCIUM Routine 05/29/2019 12:33 Results for this AM GENERAL COUNSEL procedure are i n the results section. BASIC METABOLIC PANEL Routine 05/29/2019 12:33 Re sults for this AM GENERAL COUNSEL procedure are i n the results section. HC COMPLETE BLD COUNT Routine 05/29/2019 12:00 Re sults for this W/AUTO DIFF AM GENERAL COUNSEL procedure are i n the results section. POC GLUCOSE Routine 05/28/2019 11:52 Results for this PM GENERAL COUNSEL procedure are i n the results section. POC GLUCOSE Routine 05/28/2019 8:25 Results for this PM GENERAL COUNSEL procedure are i n the results section. POC GLUCOSE Routine 05/28/2019 4:33 Results for this PM GENERAL COUNSEL procedure are i n the results section. HEPATITIS B SURFACE Routine 05/28/2019 1:50 Resu lts for this ANTIGEN PM GENERAL COUNSEL procedure are i n the results section. POC GLUCOSE Routine 05/28/2019 11:30 Results for this AM GENERAL COUNSEL procedure are i n the results section. HEMODIALYSIS Routine 05/28/2019 11:17 AM GENERAL COUNSEL HC COMPLETE BLD COUNT Routine 05/28/2019 10:05 Re sults for this W/AUTO DIFF AM GENERAL COUNSEL procedure are i n the results section. XR CHEST 1 VW PORTABLE Routine 05/28/2019 10:02 R esults for this AM GENERAL COUNSEL procedure are i n the results section. CONSULT CARDIAC REHAB Routine 05/28/2019 9:42 PHASE 1 AM GENERAL COUNSEL ECG 12-LEAD STAT 05/28/2019 9:42 Results for this AM GENERAL COUNSEL procedure are i n the results section. HEMOGLOBIN A1C Routine 05/28/2019 9:41 Results f or this AM GENERAL COUNSEL procedure are i n the results section. ESTIMATED GFR Routine 05/28/2019 9:41 Results fo r this AM GENERAL COUNSEL procedure are i n the results section. TYPE AND SCREEN Routine 05/28/2019 9:41 Results for this AM GENERAL COUNSEL procedure are i n the results section. PARTIAL THROMBOPLASTIN Routine 05/28/2019 9:41 R esults for this TIME (PTT) AM GENERAL COUNSEL procedure are i n the results section. PROTHROMBIN TIME WITH Routine 05/28/2019 9:41 Re sults for this INR AM GENERAL COUNSEL procedure are i n the results section. IONIZED CALCIUM Routine 05/28/2019 9:41 Results for this AM GENERAL COUNSEL procedure are i n the results section. PHOSPHORUS LEVEL Routine 05/28/2019 9:41 Results for this AM GENERAL COUNSEL procedure are i n the results section. MAGNESIUM LEVEL Routine 05/28/2019 9:41 Results for this AM GENERAL COUNSEL procedure are i n the results section. BASIC METABOLIC PANEL Routine 05/28/2019 9:41 Re sults for this AM GENERAL COUNSEL procedure are i n the results section. POC GLUCOSE Routine 05/28/2019 9:39 Results for this AM GENERAL COUNSEL procedure are i n the results section. after 11/27/2018 Results POC glucose (06/09/2019 4:35 PM GENERAL COUNSEL)Only the most recent of74 resultswithin the time period is included. Pathologist Sig nature POC glucose 238 (H) 65 - 99 mg/dL [facility] Comment: HOSPITAL Assembly And Packing Supervisor Name: Veena Ortiz Device ID: [id number] Chartable: [facility] Notified RN Specimen Performing Organization Address City/State/Zipcode Phone Number [facility] DEPARTMENT OF PATHOLOGY AND [address] [place], [place] [address] GENOMIC MEDICINE [address] [address] Partial thromboplastin time, activated (06/09/2019 4:45 AM GENERAL COUNSEL)Only the most recent of9 resultswithin the time period is included. PTT 52.8 (H) 23.0 - 36.0 [facility] Comment: sec HOSPITAL PTT therapeutic range for unfractionated heparin is 61.0-112.0 seconds which corresponds to Anti-Xa 0.3-0.7 U/ml. Specimen Blood Performing Organization Address [facility] Phone Number [facility] DEPARTMENT OF PATHOLOGY AND [address] [place], [place] [address] GENOMIC MEDICINE [facility] [address] [place] [address] CBC with platelet and differential (06/09/2019 4:45 AM GENERAL COUNSEL)Only the most recent of10 resultswithin the time period is included. WBC 11.21 (H) 4.50 - 11.00 [facility] k/uL HOSPITAL RBC 3.04 (L) 4.40 - 6.00 [facility] m/[facility] HGB 8.5 (L) 14.0 - 18.0 [facility] g/dL [facility] HCT 29.7 (L) 41.0 - 51.0 % [facility] MCV 97.7 82.0 - 100.0 [facility] MCH 28.0 27.0 - 34.0 pg [facility] MCHC 28.6 (L) 31.0 - 37.0 [facility] RDW - SD 63.7 (H) 37.0 - 55.0 fL [facility] MPV 12.5 8.8 - 13.2 fL [facility] Platelet count 127 (L) 150 - 400 k/uL [facility] Nucleated RBC 0.00 /100 WBC [facility] Neutrophils 78.6 (H) 39.0 - 69.0 % [facility] Lymphocytes 8.8 (L) 25.0 - 45.0 % [facility] Monocytes 10.9 (H) 0.0 - 10.0 % [facility] Eosinophils 1.1 0.0 - 5.0 % [facility] Basophils 0.2 0.0 - 1.0 % [facility] Immature granulocytes 0.4Comment: 0.0 - 1.0 % [facility] "Immature HOSPITAL granulocytes" (promyelocytes , myelocytes, metamyelocytes ) Specimen Blood Performing Organization Address City/[facility] Phone Number [facility] DEPARTMENT OF PATHOLOGY AND [address] [place], [place] [address] GENOMIC MEDICINE [facility] [address] [place] [address] XR Chest 1 Vw Portable (06/08/2019 12:32 PM GENERAL COUNSEL)Only the most recent of10 resultswithin the time [...] Bones: Regional osseous structures appea r stable. [id number] Procedure Note [facility], Radiology Results Incoming - 06/08/2019 12:48 PM GENERAL COUNSEL EXAMINATION: XR CHEST 1 VW PORTABLE CLINICAL [...] Bones: Regional osseous structures appea r stable. [id number] Performing Organization Address City/State/Zipcode Phone Number [facility] [address] [place] [address] Estimated GFR (06/08/2019 5:50 AM GENERAL COUNSEL)Only the most recent of11 resultswithin the time period is included. Estimated GFR 14 (A) mL/min/1.73 [facility] Comment: m2 HOSPITAL Catergory Units Interpretation G1 [...] Specimen Plasma specimen Performing Organization Address [facility] Phone Number [facility] DEPARTMENT OF PATHOLOGY AND [address] [place] [address] Phosphorus level (06/08/2019 5:50 AM GENERAL COUNSEL)Only the most recent of8 resultswithin the time period is included. Pathologist Sig [facility] Phosphorus 2.5 2.4 - 4.5 mg/dL [facility] L Specimen Plasma specimen Performing Organization Address [facility] Phone Number [facility] DEPARTMENT OF PATHOLOGY AND [address] [place] [address] [address] Magnesium level (06/08/2019 5:50 AM GENERAL COUNSEL)Only the most recent of9 resultswithin the time period is included. Pathologist Sig [facility] Magnesium 2.3 1.6 - 2.4 mg/dL [facility] Specimen Plasma specimen Performing Organization Address [facility] Phone Number [facility] DEPARTMENT OF PATHOLOGY AND [address] [place] [address] [phone] [address] Basic metabolic panel (06/08/2019 5:50 AM GENERAL COUNSEL)Only the most recent of8 results within the time period is included. Pathologist Sig nature Sodium 135 135 - 148 mEq/L [facility] Potassium 4.2 3.5 - 5.0 mEq/L [facility] Chloride 97 (L) 98 - 112 mEq/L [facility] CO2 26 24 - 31 mEq/L [facility] Anion gap 12@ANIO 7 - 15 mEq/L [facility] BUN 31 (H) 8 - 23 mg/dL [facility] Creatinine 4.21 (H) 0.70 - 1.20 mg/dL [facility] Glucose 117 (H) 65 - 99 mg/dL [facility] Calcium 9.0 8.8 - 10.2 mg/dL [facility] Specimen Plasma specimen Performing Organization Address City/[facility] Phone Number [facility] DEPARTMENT OF PATHOLOGY AND [address] [place] [address] Arterial blood gas (06/07/2019 11:34 AM GENERAL COUNSEL)Only the most recent of5 results within the time period is included. [facility] Sig nature pH, arterial 7.38 7.35 - 7.45 [facility] pCO2, arterial 50 (H) 35 - 45 mmHg [facility] pO2, arterial 76 (L) 80 - 90 mmHg [facility] Bicarbonate, 28.8 (H) 21.0 - 28.0 [facility] mmol/L [facility] Base excess, 4 (H) -2 - 2 mEq/L [facility] O2 saturation, 95 95 - 100 % [facility] Specimen Blood Performing Organization Address City/[facility] Phone Number [facility] DEPARTMENT OF PATHOLOGY AND [address] [place] [address] Us duplex venous lower extremity (06/07/2019 6:20 AM GENERAL COUNSEL) Specimen Narrative Performed At [facility] V[facility] U ltrasound Laboratory Lower Extr emity Venous Report [address] [place] [address] Pat.Name: DILLON PEREZ Pat.ID: [id number] .Date: 06/07/2019 Refer.MD: KIMBERLY KHANNA MD Exam Time: 4:51:00 AM Study Type:L E Venous Age: 1001/16/1940,79Y Sex: MALE Sonogrphr: Jamal Lira, BA, BS, RDMS, RVT Pat. Stat.:Inpatient Room: [address] Tape V ol: ZENAIDA, CPT - 4: 160[address] Echo Rhea nt ID:[id number] Order ID: [id number] Reason for Study:Evaluate for DVT. Patie nt [...] Radiology Results In - 2019 8:11 AM [facility] Vascular Ultrasound Laboratory Lower Extremity Veno us Report [address] [facility], [facility] [address] , [place] [address] Pat.Name: DILLON PEREZ Pat.I D: [id number] .Date: 06/07/2019 Refer .MD: KIMBERLY KHANNA MD Exam Time: 4:51:00 AM Study Type:LE Venous Age: 1001/16/1940,79Y Sex: MALE Sonogrphr: Jamal Lira, BA, BS, RDMS, RVT Pat. Stat.:Inpatient Room: [address] Vol: ZENAIDA, CPT - 4: [address] Echo Event ID:[id number] Order ID: [id number] Reason for Study:Evaluate for DVT. Cata nt [...] Performing Organization Address City/State/Zipcode Phone Number [facility] [address] [place] [address] CBC hemogram (06/07/2019 3:50 AM GENERAL COUNSEL)Only the most recent of5 resultswithin the time period is included. [facility] Sig nature WBC 16.21 (H) 4.50 - 11.00 k/uL [facility] RBC 3.35 (L) 4.40 - 6.00 m/uL [facility] HGB 9.6 (L) 14.0 - 18.0 g/dL [facility] HCT 32.4 (L) 41.0 - 51.0 % [facility] MCV 96.7 82.0 - 100.0 fL [facility] MCH 28.7 27.0 - 34.0 pg [facility] MCHC 29.6 (L) 31.0 - 37.0 g/dL [facility] RDW - SD 64.8 (H) 37.0 - 55.0 fL [facility] MPV 12.3 8.8 - 13.2 [facility] Platelet count 132 (L) 150 - 400 k/uL [facility] Nucleated RBC 0.00 /100 WBC [facility] Specimen Blood Performing Organization Address City/[facility] Phone Number [facility] DEPARTMENT OF PATHOLOGY AND [address] [place] [address] [phone] [address] Occult blood, stool (06/06/2019 5:50 PM GENERAL COUNSEL) [facility] Occult blood, Negative for occult blood. [place] [facility] stool Comment: HOSPITAL Specimen Information Specimen Source: Stool Specimen Site: Nonpreserved Specimen Stool - Nonpreserved Performing Organization Address [facility] Phone Number [facility] DEPARTMENT OF PATHOLOGY AND [address] [place] [address] [place] [address] Comprehensive metabolic panel (06/06/2019 3:35 AM GENERAL COUNSEL)Only the most recent of3 resultswithin the time period is included. [facility] Sodium 136 135 - 148 [facility] mEq/L [facility] Potassium 4.7 3.5 - 5.0 [facility] mEq/L [facility] Chloride 96 (L) 98 - 112 mEq/L [facility] CO2 25 24 - 31 mEq/L [facility] Anion gap 15@ANIO 7 - 15 mEq/L [facility] BUN 38 (H) 8 - 23 mg/dL [facility] Creatinine 4.73 (H) 0.70 - 1.20 [facility] mg/dL HOSPITAL Glucose 77 65 - 99 mg/dL [facility] Calcium 8.7 (L) 8.8 - 10.2 [facility] mg/dL [facility] Protein 6.4 6.3 - 8.3 g/dL [facility] Comment: HOSPITAL Xdfablm4804.6-7.0 g/dL 1 frnb3104.4-7.6 g/dL 7 months-3ovkt850.1-7.3 g/dL 1-2 geqfj171.6-7.5 g/dL >3 .0-8.0 g/dL 18-4262789.3-8.3 g/dL Albumin 2.4 (L) 3.5 - 5.0 g/dL [facility] A/G ratio 0.6 (L) 0.7 - 3.8 [facility] Alkaline phosphatase 77 40 - 129 U/L [facility] AST 10 10 - 50 U/L [facility] ALT 15 5 - 50 U/L [facility] Total bilirubin 0.5 0.0 - 1.2 [facility] mg/dL HOSPITAL Specimen Plasma specimen Performing Organization Address City/[facility]/Zipcode Phone Number [facility] DEPARTMENT OF PATHOLOGY AND [address] [place] [address] Transfuse RBC (06/04/2019 10:32 PM GENERAL COUNSEL)Only the most recent of3 resultswithin the time period is included.Smear review (06/04/2019 5:50 AM GENERAL COUNSEL) Pathologist Sig nature Platelet slide review Trell slt decr [facility] Anisocytosis Moderate [facility] Polychromasia Moderate [facility] Ovalocytes Moderate [facility] Specimen Performing Organization Address [facility] Phone Number [facility] DEPARTMENT OF PATHOLOGY AND [address] [place] [address] [phone] [address] Prothrombin time with INR (06/03/2019 11:20 PM GENERAL COUNSEL)Only the most recent of2 resultswithin the time period is included. Prothrombin time 14.8 (H) 11.5 - 14.5 [facility] INR 1.2 [place] Comment: [facility] International Normalized Ratio (INR) is a [facility] monitoring tool for patients who are stable on oral anticoagulant therapy. An INR of 2.0-3.0 is suggested for deep vein thrombosis/pulmonary embolism. Specimen Blood Performing Organization Address City/[facility] Phone Number [facility] DEPARTMENT OF PATHOLOGY AND [address] [place] [address] [place] [address] Anti Xa, unfractionated (06/03/2019 11:20 PM GENERAL COUNSEL) Anti Xa, <0.10 (L)Comment: 0.30 - 0.70 [place] unfractionated Therapeutic Range: U/mL TENRIISM 0.30 - 0.70 U/mL HOSPITAL Specimen Blood Performing Organization Address City/State/Zipcode Phone Number [facility] DEPARTMENT OF PATHOLOGY AND [address] [place], [place] [address] GENOMIC MEDICINE [facility] [address] [place] [address] CT Angiogram Pe Chest (06/03/2019 7:51 PM GENERAL COUNSEL) Specimen Narrative Performed At EXAMINATION: RADIANT CT [...] at 8:00 PM, and she expressed understanding [facility]-[id number] Procedure Note Interface, Radiology Results Incoming - 06/03/2019 8:04 PM GENERAL COUNSEL EXAMINATION: CT ANGIOGRAM PE CHEST CLINICAL HISTORY:79 [...] at 8:00 PM, and she expressed understanding [facility]-[id number] Performing Organization Address City/[facility] Phone Number [facility] [address] [place] [address] ECG 12 lead (06/03/2019 2:44 PM GENERAL COUNSEL)Only the most recent of5 resultswithin the time period is included. Pathologist Sig nature Ventricular rate 115 [facility] Atrial rate 115 [facility] M[facility] MN interval 114 [facility] QRSD interval 154 [...] no t available. Performing Organization Address [facility] Phone Number [employer] [address] [place] [address] D-dimer (06/03/2019 2:43 PM GENERAL COUNSEL) [facility] D-dimer 1.73 (H) 0.00 - 0.40 [facility] Comment: ug/mL [facility] Units are ug/ml [...] Blood Performing Organization Address City/State/Zipcode Phone Number [facility] DEPARTMENT OF PATHOLOGY AND [address] [place] [address] [address] GEN[address] [address] Respiratory pathogen panel (06/03/2019 2:36 PM GENERAL COUNSEL) [facility] Respiratory Positive for Influenza A/H1-2009 virus [facility] pathogen panel TENRIISM Negative for all other pathogens tested: HOSPITAL [...] Nares - Right Performing Organization Address [facility]/Zipcode Phone Number [facility] DEPARTMENT OF PATHOLOGY AND [address] [place] [address] [phone] [address] Prepare RBC, 2 Units (06/02/2019 8:34 AM GENERAL COUNSEL)Only the most recent of2 results within the time period is included. Product name [employer] Red Cell [place] AS3 #1 [facility] Unit number [id number] [facility] Product code [id number] [facility] Dispense status Transfused [facility] Blood expiration date [id number] [facility] Blood type code 5100 [facility] Blood type O POSITIVE [facility] Compatibility Compatible [facility] Product name Apheresis Red Cell [place] AS3 #2 [facility] Unit number [id number] [facility] Product code [id number] [facility] Dispense status Transfused [facility] Blood expiration date [facility] Blood type code 5100 [facility] Blood type O POSITIVE [facility] Compatibility Compatible [facility] Specimen Blood Performing Organization Address [facility] Phone Number [facility] DEPARTMENT OF PATHOLOGY AND [address] [place], [place] [address] [address] [address] Type and screen (06/02/2019 8:34 AM GENERAL COUNSEL)Only the most recent of2 resultswithin the time period is included. Pathologist Sig nature ABO grouping O [facility] Rh type POS [facility] Antibody screen (gel) NEG [facility] Specimen Blood Performing Organization Address City/[facility]/Zipcode Phone Number [facility] DEPARTMENT OF PATHOLOGY AND [address] [place] [address] [phone] [address] Cv pyp scan for cardiac amyloidosis (06/01/2019 3:12 PM GENERAL COUNSEL) Specimen Narrative Performed At This result has an attachment that is no t available. [facility] Nuclear Cardiology and Card iac CT [address] [facility], [facility] [address], [place] [address] PYP Cardiac Amyloidosis Imagin g Report Pat.Name: DILLON PEREZ at.ID: [id number] .Date: 06/01/2019 Refer.MD: ASCENCION QUINTERO MD Exam Time: 11:24:00 AM Study Type:PYP Cardiac Amyloidosis Imaging Height: 71in Weight: 266lb BSA: 2.38 m2 Age: 1001/16/1940,79Y Sex: MALE Nuclear Tech:Jenni Mendiola [facility], [facility](N) Pat. Stat.:Inpatient Nuclear Event ID:[id number] Order ID: [id number] Reason for Study:R/O TTR amyloid History / [...] Radiology Results In - 2019 3:40 PM [facility] Nuclear Cardiology and Cardiac CT [address] [place] [address] PYP Cardiac Amyloidosis Imaging Report Pat.Name: DILLON PEREZ Pat.I D: [id number] .Date: 06/01/2019 Refer .MD: ASCENCION QUINTERO MD Exam Time: 11:24:00 AM Study Type:PYP Cardiac Amyloidosis Imagi ng Height: 71in Weigh t: 266lb BSA: 2.38 m2 Age: 1001/16/1940,79Y Sex: MALE Nuclear Tech:ALLIE Tavares, ARRT(N) Pat. Stat.:Inpatient Nucle ar Event ID:[id number] Order ID: [id number] Reason for Study:R/O TTR amyloid History / [...] Mohan Saucedo MD Performing Organization Address [facility] Phone Number [facility] [address] [place] [address] [place] lambda free light chain with ratio (06/01/2019 5:20 AM GENERAL COUNSEL) Pathologist [facility] nature [place] light chain 289.08 (H) 3.30 - 19.40 [facility] mg/L [facility] Lambda light chain 143.97 (H) 5.70 - 26.30 [facility] mg/L [facility] [place] lambda ratio 2.01 (H) 0.26 - 1.65 [facility] Specimen Plasma specimen Performing Organization Address [facility] Phone Number [facility] DEPARTMENT OF PATHOLOGY AND [address] [place] [phone] GENOMIC MEDIC[address] [address] [address] cardiac calcium score (05/31/2019 3:35 PM GENERAL COUNSEL) Specimen Narrative Performed At [facility] Cardi ology and Cardiac CT [address] [place] [address], [place], [place] [address] CT Calc ium Scoring Report Pat.Name: DILLON PEREZ Pat.ID: [id number] .Date: 05/31/2019 Refer.MD: ASCENCION QUINTERO MD Exam Time: 3:04:00 PM Study Type:C T Calcium Scoring Height: 71in Weight: 266lb BSA: 2.38 m2 Ag e: 1940,79Y Sex: MALE HR: 92 bpm Nuclear Tech:Ayo Aviles, RT(NM)(CT), [place] BI ARCHITECT/Abdiel Billings [facility] Pat. Stat.:Inpatient Nuclear Event ID:[id number] Order ID: [id number] Reason for Study:Eval Aortic Valve Procedures: CT [...] Radiology Results In - 2019 7:15 PM [facility] Nuclear Cardiology and Cardiac CT [address] [place] [address] CT Calcium Scoring Report Pat.Name: DILLON PEREZ Pat.I D: [id number] .Date: 05/31/2019 Refer .MD: ASCENCION QUINTERO MD Exam Time: 3:04:00 PM Study Type:CT Calcium Scoring Height: 71in Weigh t: 266lb BSA: 2.38 m2 Age: 1001/16/1940,79Y Sex: MALE HR: 92 bpm Nuclear Tech:Ayo Aviles RT(NM)(CT), [facility]/Abdiel Billings [facility] Pat. Stat.:Inpatient Nuclear Event ID:[id number] Order ID: [id number] Reason for Study:Eval Aortic Valve Procedures: CT [...] PM Beny Weiss MD Performing Organization Address City/[facility]/Zipcode Phone Number [facility] [address] [place] [address] T3, free (05/31/2019 4:10 AM GENERAL COUNSEL) Pathologist Sig nature T3, free 1.1 (L) 2.4 - 4.2 pg/mL [facility] Comment: REFERENCE INTERVAL: Triiodothyronine, Free (Free T3) Access complete set of age- and/or gender-specific ref erence intervals for this test in the Doctor kinetic Laboratory Test Di rectory ([email or web address]). Performed by [facility], [address] [place] [address] [email or web address], Jared Foster MD, Lab. Director Specimen Serum Performing Organization Address [facility] Phone Number [facility] [address] [place] [address] [facility] [address] [place] [address] Ionized calcium (05/31/2019 12:00 AM GENERAL COUNSEL)Only the most recent of4 resultswithin the time period is included. Pathologist Sig nature pH 7.38 [facility] Ionized calcium 1.06 (L) 1.11 - 1.32 [facility] mmol/L HOSPITAL Specimen Plasma specimen Performing Organization Address [facility] Phone Number [facility] DEPARTMENT OF PATHOLOGY AND [address] [place] [phone] GENOMIC MEDICINE [address] [address] Echocardiogram complete w contrast and 3D if needed (05/30/2019 7:00 PM GENERAL COUNSEL) Specimen Narrative Performed At [facility] Echo cardiography Report [address] [facility], [facility] [address], [place] [address] Pat.Name: DILLON PEREZ Pat.ID: [id number] .Date: 05/30/2019 Refer.MD: ASCENCION QUINTERO MD Exam Time: 6:00:00 PM Study Type:R outine Echo Height: 71in Weight: 305lb BSA: 2.53 m2 Ag e: 1940,79Y Sex: MALE BP: 138/70 HR: 72 bpm Sonogr phr: EZRA Stock Pat. Stat.:Inpatient Room: [address] Study Status:Final Echo Event ID:[id number] Order ID: [id number] Reason for Study:Aortic stenosis evaluat ion. History [...] of 10 mmHg. MEASUREMENTS: 2D Parasternal Long [place] Ao An 2.5 cm LVPWd 1.2 cm [...] Radiology Results In - 2019 1:49 PM GENERAL COUNSEL Echocardiography Report [address] [facility], [facility] 9 , [place] [address] Pat.Name: DILLON PEREZ Pat.I D: [id number] .Date: 05/30/2019 Refer .MD: ASCENCION QUINTERO MD Exam Time: 6:00:00 PM Study Type:Routine Echo Height: 71in Weigh t: 305lb BSA: 2.53 m2 Age: 1001/16/1940,79Y Sex: MALE BP: 138/70 HR: 72 bpm Sonog rphr: EZRA Stock Pat. Stat.:Inpatient Room: [address] Study Status:Final Echo Event ID:[id number] Order ID: [id number] Reason for Study:Aortic stenosis evaluat ion. History [...] of 10 mmHg. MEASUREMENTS: 2D Parasternal Long [place] Ao An 2.5 cm LVPW d 1.2 [...] M.D. Performing Organization Address City/State/Zipcode Phone Number [facility] [address] [phone] duplex arterial upper extremity (05/30/2019 5:00 PM GENERAL COUNSEL) Specimen Narrative Performed At [facility] Vascular U ltrasound Laboratory Upper Extr emity Arterial Report [address] [facility], [address], [place] [address] Pat.Name: DILLON PEREZ Pat.ID: [id number] .Date: 05/30/2019 Refer.MD: ASCENCION QUINTERO MD Exam Time: 3:21:00 PM Study Type:U E Arterial Age: 1001/16/1940,79Y Sex: MALE Sonogrphr: Prtii Recinos RVT Pat. [facility] [address] ol: RF, CPT - 4: 57815 Echo Rhea nt ID:[id number] Order ID: [id number] Reason for Study:Bilateral arm pain and swelling. [...] Radiology Results In - 2019 5:50 PM [facility] Vascular Ultrasound Laboratory Upper Extremity Aarti rial Report [address] [address] Pat.Name: LANIDILLON Pat.I D: [id number] .Date: 05/30/2019 Refer .MD: ASCENCION QUINTERO MD Exam Time: 3:21:00 PM Study Type:UE Arterial Age: 1001/16/1940,79Y Sex: MALE Sonogrphr: PAUL Herrera. Stat.:Inpatient Room: [id number] Tape Vol: RF, CPT - 4: 13732 Echo Event ID:[id number] Order ID: [id number] Reason for Study:Bilateral arm pain and swelling. [...] RPVI Performing Organization Address City/State/Zipcode Phone Number [facility] [address] [phone] Us ankle brachial index (05/30/2019 3:30 PM GENERAL COUNSEL) Specimen Narrative Performed At [facility] Vascular D iagnostic Laboratory Physiologi c Arterial Leg Report [address] [place] [address] Pat.Name: DILLON PEREZ Pat.ID: [id number] .Date: 05/30/2019 Refer.MD: ASCENCION QUINTERO MD Exam Time: 2:32:00 PM Study Type:P hysiologic Leg Age: 1001/16/1940,79Y Sex: MALE Sonogrphr: Priti Recinos RVT Pat. Stat.:Inpatie nt Room: [address] l: RF, CPT - 4: 28553 Echo Rhea nt ID:[id number] Order ID: [id number] Reason for Study:Bilateral decreased ped al pulses. 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 Procedures: Ankle/brachial pressures, Di git pressures Race: B SUMMARY: ANKLE/BRACHIAL INDEX: RIGHT LEFT Brachial Artery Eoxwnofy008 mmHg AV-F istula DP 0 mmHg 0 [...] Radiology Results In - 2019 9:50 PM GENERAL COUNSEL Vascular Diagnostic Laboratory Physiologic Arterial Leg Report [address] [address] , [place] [address] Pat.Name: DILLON PEREZ Pat.I D: [id number] .Date: 05/30/2019 Refer .MD: ASCENCION QUINTERO MD Exam Time: 2:32:00 PM Study Type:Physiologic Leg Age: 1001/16/1940,79Y Sex: MALE Sonogrphr: Priti Recinos RVT Pat. Stat.:Inpatient Room: [address] Tape Vol: RF, CPT - 4: 72203 Echo Event ID:[id number] Order ID: [id number] Reason for Study:Bilateral decreased ped al pulses. 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 Procedures: Ankle/brachial pressures, Di git pressures Race: B SUMMARY: ANKLE/BRACHIAL INDEX: RIGHT LEFT Brachial Artery Usjkqhoq408 mmHg AV-Fi stula DP 0 mmHg 0 mmHg PT >255 mmHg 150 mmHg ION DP 0 0 ION PT Non-compressible 1.14 TOE/BRACHIAL INDEX: Great Toe 78 mmHg 117 mmHg TBI 0.59 0.89 PRELIMINARY FINDINGS: 1. Unable to calculate the right ankle/b rachial index of the posterior tibial artery due to non-compressible ar adnyell. Unable to obtain the right ankle/brachia l [...] RPVI Performing Organization Address City/State/Zipcode Phone Number [facility] [address] duplex arterial lower extremity (05/30/2019 3:30 PM GENERAL COUNSEL) Specimen Narrative Performed At [facility] Vascular D iagnostic Laboratory Physiologi c Arterial Leg Report [address] [place] [address] Pat.Name: DILLON PEREZ Pat.ID: [id number] .Date: 05/30/2019 Refer.MD: ASCENCION QUINTERO MD Exam Time: 2:32:00 PM Study Type:P hysiologic Leg Age: 1001/16/1940,79Y Sex: MALE Sonogrphr: Priti Recinos RVT Pat. Stat.:Inpatie nt Room: [address] Vo l: RF, CPT - 4: 63824 Echo Rhea nt ID:[id number] Order ID: [id number] Reason for Study:Bilateral decreased ped al pulses. 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 Procedures: Ankle/brachial pressures, Di git pressures Race: B SUMMARY: ANKLE/BRACHIAL INDEX: RIGHT LEFT Brachial Artery Odntzbho286 mmHg AV-F istula DP 0 mmHg 0 [...] Radiology Results In - 2019 9:03 AM [facility] Vascular Diagnostic Laboratory Physiologic Arterial Leg Report [address] [address] Pat.Name: DILLON PEREZ Rhianna Pat.I D: [id number] .Date: 05/30/2019 Refer .MD: ASCENCION QUINTERO MD Exam Time: 2:32:00 PM Study Type:Physiologic Leg Age: 1001/16/1940,79Y Sex: MALE Sonogrphr: PAUL Herrera. Stat.:Inpatient Room: [address] Tape Vol: RF, CPT - 4: 15128 Echo Event ID:[id number] Order ID: [id number] Reason for Study:Bilateral decreased ped al pulses. 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 Procedures: Ankle/brachial pressures, Di git pressures Race: B SUMMARY: ANKLE/BRACHIAL INDEX: RIGHT LEFT Brachial Artery Ykxqdyge272 mmHg AV-Fi stula DP 0 mmHg 0 [...] Yung MD, RPVI Performing Organization Address [facility] Phone Number [facility] [address] [place] [address] LDH (05/30/2019 11:05 AM GENERAL COUNSEL) Pathologist [facility] LDH 267 (H) 87 - 225 U/L [facility] Specimen Plasma specimen Performing Organization [facility] Phone Number [facility] DEPARTMENT OF PATHOLOGY AND [address] [place] [phone] Uric acid level (05/30/2019 12:50 AM GENERAL COUNSEL) Pathologist [facility] Uric acid 4.5 3.4 - 7.0 mg/dL [facility] L Specimen Plasma specimen Performing Organization [facility] DEPARTMENT OF PATHOLOGY AND [address] [place] [phone] Thyroid stimulating hormone (05/30/2019 12:50 AM GENERAL COUNSEL) Pathologist Sig [facility] TSH 0.63 0.27 - 4.20 uIU/mL [facility] Specimen Plasma specimen Performing Organization [facility] Phone Number [facility] DEPARTMENT OF PATHOLOGY AND [address] [place] [address] [place] [phone] T4, free (05/30/2019 12:50 AM GENERAL COUNSEL) Pathologist Sig [facility] T4, free 0.7 (L) 0.9 - 1.7 ng/dL [facility] L Specimen Plasma specimen Performing Organization Address [facility] Phone Number [facility] DEPARTMENT OF PATHOLOGY AND [address] [address] Manual differential (05/30/2019 12:20 AM GENERAL COUNSEL) Manual differential PERFORMED [facility] Neutrophils 81.0 (H) 39.0 - 69.0 % [facility] Lymphocytes 10.0 (L) 25.0 - 45.0 % [facility] Monocytes 8.0 0.0 - 10.0 % [facility] Eosinophils 1.0 0.0 - 5.0 % [facility] Basophils 0.0 0.0 - 1.0 % [facility] Metamyelocytes 0 % [facility] Promyelocytes 0 % [facility] Platelet slide review Decreased (A) [facility] Anisocytosis Moderate [facility] Polychromasia Moderate [facility] Tear drop cells Occasional [facility] [place] cells Moderate (A) [facility] Enlarged platelets Moderate (A) [facility] Specimen Performing Organization Address City[facility] Phone Number [facility] DEPARTMENT OF PATHOLOGY AND [address] [place] [phone] Heparin PF4 antibody (IgG) (05/29/2019 9:41 AM GENERAL COUNSEL) Pathologist Sig nature Heparin PF4 Ab OD 0.206 0.000 - 0.399 [facility] Heparin PF4 Ab, IgG Negative Negative [facility] Specimen Blood Performing Organization Address City/[facility] Phone Number [facility] DEPARTMENT OF PATHOLOGY AND [address] [place] [phone] Hepatitis B surface antigen (05/28/2019 1:50 PM GENERAL COUNSEL) Pathologist Sig nature Hepatitis B surface Non-reactive Non-reactive [facility] Specimen Blood Performing Organization Address City/[facility] Phone Number [facility] DEPARTMENT OF PATHOLOGY AND [address] [place] [phone] Hemoglobin A1c (05/28/2019 9:41 AM GENERAL COUNSEL) Hemoglobin A1C 6.5 (H) 4.0 - 5.6 % [facility] Comment: HOSPITAL HbA1c cutoffs for diagnosing diabetes: [...] Blood Performing Organization Address City/State/Zipcode Phone Number [facility] DEPARTMENT OF PATHOLOGY AND [address] [place] [phone] GENOMIC MEDICINE [facility] [address] [place] [address] after 11/27/2018 Insurance Payer Benefit Plan / Subscriber ID Effective Dates Phone Addre ss Type Group MEDICARE MEDICARE PART A xxxxxxxxxxx 2004-[place], [place] Medicare AND B t AARP AARP SUPPLEMENT xxxxxxxxxxx 2008-Present Commercial (Work) [id number] Advance Directives For more information, please contact: [phone] Type Date Recorded Patient Jailor Explanati on Advance Directives, Living Will 08/07/2016 7:57 AM and Medical Power of 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
--- OUTSIDE RECORDS SUMMARY | 2019-11-28 17:52 | XMS REPORT | Continuity of Care Document ---
:1940 Author Organization [facility] t Address [address] [place] [address] Care Team Providers Name Role Phone Anmol Salazar MD Primary Care Physician JOANN Attending Clinician Unavailable Ingrid CHOWDHURY, R. Attending Clinician Ester CHOWDHURY, M. Attending Clinician Johnathan CHOWDHURY PhD, S. Attending Clinician JOANN Admitting Clinician Unavailable INGRID Admitting Clinician Unavailable Payers Payer Name Policy Policy Number Effective Expiration Source Type Date Date MEDICAREMEDICARE PART xxxxxxxxxxx 2004 Jono Zelaya AND 00:00:00 [facility] [id number]/1/2004 [place] 2008 [place] SUPPLEMENTxxxxxxxxxxx 00:00:00 [place] [facility] Condition Condition Condition Status Onset [...] st 00 ally from request for surgery [id number] Coronary Coronary Disease Active Overview: Jono garcía artery artery 4-11 Added Methodi disease disease 00:00: automatic st involving involving 00 ally from [place] request coronary coronary for artery of artery of surgery [place] [id number] heart heart without without angina angina pectoris pectoris Chest pain Chest pain Disease Active Overview : Percy 4-11 Added Methodi 00:00: automatic st 00 ally from request for surgery [id number] 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 4-10 Method i 00:00: st 00 Coronary Coronary Disease Active [place] artery artery 4-10 Methodi disease of disease of 00:00: st [place] 00 artery of artery of [place] heart with heart with stable stable angina [...] 2020-0 [facility] 5-16 Clear 00:00: Ann 00 [facility] ciproflo DA Active U 2020-0 [facility] xacin 5-16 Clear 00:00: Ann 00 [facility] meperidi DA Active U 2020-0 [facility] ne 5-16 Clear 00:00: Ann 00 [facility] iodine DA Active U 2020-0 [facility] 4-13 Clear 00:00: Ann 00 [facility] ciproflo DA Active U 2020-0 [facility] xacin 4-13 Clear 00:00: Ann 00 [facility] meperidi DA Active U 2020-0 [facility] ne 4-13 Clear 00:00: Ann 00 [facility] Ciproflo Propensi Active Itching [place] xacin ty to 3-27 Methodi adverse 00:00: st reaction 00 s to drug Meperidi Propensi Active Other (See Jono stacy ty to Comments) 3-27 Methodi adverse 00:00: st reaction 00 s to drug Iodine Propensi Active Itching [place] ty to 4-19 Methodi adverse 00:00: st reaction 00 s to drug Shrimp Propensi Active Itching [place] ty to 4-19 Methodi adverse 00:00: st reaction 00 s to drug Iodine Adverse Active Info Not [facility] Reaction Available [facility] Social History Social Habit Start Date Stop Date Quantity Comments Source Sex Assigned At [place] M ethodist Cigarettes smoked 2019-05-29 2019-05-29 Percy Chance current (pack per 00:00:00 00:00:00 day) - Reported Cigarette 2019-05-29 2019-05-29 Percy Allen ist pack-years 00:00:00 00:00:00 Alcohol intake 2019-05-29 2019-05-29 Current [facility] thodist 00:00:00 00:00:00 non-drinker of alcohol (finding) History of tobacco 1979-03-08 Current smoker Jono Chance use 00:00:00 Smoking Status Start Date Stop Date Source Former smoker 2019-05-29 00:00:00 2019-05-29 00:00:00 Percy Chance Medications Ordered Filled Start Stop Current Ordering Indication Dosage Frequency Signature Comments Components Source Medication Medication Date Date Medication? Clinician (SIG) Name Name oseltamivir 2020- No 30mg Q.[id number] Take 1 [place] (TAMIFLU) 06-12 [id number] capsule Methodi 30 MG 00:00: 23:59 3W ([address] capsule 00 :00 total) by mouth 3 (three) times a week for 3 days. midodrine 2019- 2020- No 20mg Q.[id number] Take 2 [place] (PROAMATINE 07-10 [id number] tablets Methodi ) 10 MG 00:00: 23:59 3W ([address] tablet 00 :00 total) by mouth 3 (three) times a week for 30 days. polyethylen 2019-2019- No 17g QD Take 17 g [place] e glycol 06-10 by mouth Method i (MIRALAX) 00:00: 23:[address] 17 gram 00 :00 30 days. packet lisinopriL 2019- No 5mg QD Take 1 [place] (PRINIVIL) 06-10 tablet (5 Met hodi 5 mg tablet 00:00: 23:59 mg total) st 00 :00 by mouth daily for 30 days. insulin NPH 2019- No 6U QD [facility] 06-10 Units Method i 100 unit/mL 00:00: 23:[address] injection 00 :00 skin daily for 30 days. epoetin 2019- No [id number] Q.[id number] Infuse [place] zaid-epbx 06-10 [id number] 13,000 M ethodi 10,000 00:00: 23:59 3W [...] chest pain. midodrine 2019-0 2020- No 20mg Q.[id number] Take 20 mg [place] (PROAMATINE 06-09 [id number] by mouth 3 Methodi ) 10 MG [...] 2020-0 Yes 1{spray QD 1 spray by [place] (FLONASE) 06-09 } Each Nare Metho di 50 20:45: route st mcg/actuati 43 daily. on nasal spray gabapentin 2020-0 Yes 100mg Q.[id number] Take 100 [place] (NEURONTIN) 06-09 [id number] mg by M ethodi 100 mg 20:45: 3D mouth 3 st capsule 43 (three) times a day. amIODarone 2020-0 Yes 100mg QD Take 100 [place] usoliver (PACERONE) 2-27 mg by Methodi 200 MG 20:45: mouth st tablet 43 daily. sevelamer 2020-0 Yes 1600mg Q.[id number] Take 1,600 [place] (RENVELA) - [id number] mg by Met hodi 800 mg 20:45: [...] levalbutero 2019-0 2020- No Influenza A 1.25mg Q.[id number] Take 3 mL [place] l (XOPENEX) 06-09 (H1N1) [id number] (1.25 mg Methodi 1.25 mg/3 00:00: 23:59 7D total) by st mL 00 :00 nebulizati nebulizer on every 4 solution (four) hours for 30 days. ipratropium 2019-0 2020- No Influenza A .5mg Q.[id number] Take 2. 5 [place] (ATROVENT) 06-09 (H1N1) [id number] mL (0.5 mg Methodi 0.02 % 00:00: 23:59 7D total) by st nebulizer 00 :00 nebulizati solution on every 4 (four) hours for 30 days. insulin 2019-0 2020- No 0U Q4H Inject [place] lispro 06-09 0-12 Units Method i (HumaLOG) [...] Chris not [facility] HCl HCl [facility] clopidogrel clopidogrel Yes Chris not [facility] Ipratropium Ipratropium Yes Chris not [facility] [place] [facility] Prednisone Prednisone Yes Chris not [facility] Vital Signs Vital Name Observation Time Observation Value Comments Source Heart rate 2019-06-09 19:30:00 86 /min Percy Chance Respiratory rate 2019-06-09 19:30:00 22 /min [place] [facility] Oxygen saturation in 2019-06-09 19:16:00 100 /min Percy Chance Arterial blood by Pulse oximetry Systolic blood 2019-06-09 18:00:00 131 mm[Hg] Ess[place] n Worship pressure Diastolic blood 2019-06-09 18:00:00 59 mm[Hg] Chrissie on Worship pressure Body temperature 2019-06-09 17:00:00 36.67 Leslee [place] [facility] Body weight 2019-06-09 06:00:00 124.5 kg Percy [...] PARTIAL THROMBOPLASTIN 2019-06-09 04:45:00 Yvette Hernandez on Worship TIME (PTT) HC COMPLETE BLD COUNT 2019-06-09 04:45:00 Lee Polk W/AUTO DIFF POC GLUCOSE 2019-06-09 02:07:00 Trey Norman [facility]odist POC GLUCOSE 2019-06-08 20:30:00 Trey Norman [facility] POC GLUCOSE 2019-06-08 17:13:00 Trey Norman [facility] HEMODIALYSIS 2019-06-08 15:06:25 KiloagaDawna ethodist Almita XR CHEST 1 VW PORTABLE 2019-06-08 12:32:38 Norma Welsh Worship POC GLUCOSE 2019-06-08 12:07:00 Trey Norman [facility] POC GLUCOSE 2019-06-08 07:38:00 Trey Noramn Met [facility]odist PARTIAL THROMBOPLASTIN 2019-06-08 05:50:00 Yvette Hernandez on Worship TIME (PTT) HC COMPLETE BLD COUNT 2019-06-08 05:50:00 Kaylene Watkins Worship W/AUTO DIFF BASIC METABOLIC PANEL 2019-06-08 05:50:00 Kaylene Watkins Worship MAGNESIUM LEVEL 2019-06-08 05:50:00 Kaylene Watkins Worship PHOSPHORUS LEVEL 2019-06-08 05:50:00 Kaylene Watkins on Worship ESTIMATED GFR 2019-06-08 05:50:00 Kaylene Watkins n Worship POC GLUCOSE 2019-06-08 04:26:00 Trey Norman [facility] POC GLUCOSE 2019-06-08 00:18:00 Trey Norman [facility] POC GLUCOSE 2019-06-07 20:16:00 Trey Norman [facility] POC GLUCOSE 2019-06-07 16:22:00 Trey Norman [facility] POC GLUCOSE 2019-06-07 15:50:00 Trey Norman [facility] POC GLUCOSE 2019-06-07 11:39:00 Trey Norman [facility] ARTERIAL BLOOD GAS 2019-06-07 11:34:00 Micheline Multani Worship HEMODIALYSIS 2019-06-07 10:44:52 Imani Arita Meth odist Vida POC GLUCOSE 2019-06-07 07:42:00 Trey Norman [facility] US DUPLEX VENOUS LOWER 2019-06-07 06:20:00 Yvette Hernandez on Worship EXTREMITY BILATERAL POC GLUCOSE 2019-06-07 04:27:00 Trey Norman [facility] PARTIAL THROMBOPLASTIN 2019-06-07 03:50:00 Yvette Hernandez on Worship TIME (PTT) CBC HEMOGRAM 2019-06-07 03:50:00 Lee Polk ethodist POC GLUCOSE 2019-06-07 00:19:00 Trey Norman [facility] POC GLUCOSE 2019-06-06 20:19:00 Trey Norman [facility] POC GLUCOSE 2019-06-06 18:13:00 Trey Norman [facility] OCCULT BLOOD, STOOL 2019-06-06 17:50:00 Trey Norman Worship POC GLUCOSE 2019-06-06 14:46:00 Trey Norman [facility] POC GLUCOSE 2019-06-06 12:21:00 Trey Norman [facility] POC GLUCOSE 2019-06-06 08:00:00 Trey Norman [facility] POC GLUCOSE 2019-06-06 04:29:00 Trey Norman [facility] HC COMPLETE BLD COUNT 2019-06-06 03:35:00 Tejas Escamilla Worship W/AUTO DIFF Louise MAGNESIUM LEVEL 2019-06-06 03:35:00 Tejas Escamilla ethodist Louise PHOSPHORUS LEVEL 2019-06-06 03:35:00 Tejas Escamilla Worship Louise COMPREHENSIVE METABOLIC 2019-06-06 03:35:00 Tejas Escamilla Worship PANEL Louise PARTIAL THROMBOPLASTIN 2019-06-06 03:35:00 Yvette Hernandez on Worship TIME (PTT) ESTIMATED GFR 2019-06-06 03:35:00 Yvette Hernandez Meth odist POC GLUCOSE 2019-06-06 00:25:00 Trey Norman [facility] ARTERIAL BLOOD GAS 2019-06-05 21:42:00 Lee Polk n Worship POC GLUCOSE 2019-06-05 20:16:00 Trey Norman [facility] POC GLUCOSE 2019-06-05 17:20:00 Trey Norman [facility] POC GLUCOSE 2019-06-05 16:15:00 Trey Norman [facility] POC GLUCOSE 2019-06-05 12:10:00 Trey Norman [facility] XR CHEST 1 VW PORTABLE 2019-06-05 08:59:00 Lee Polk Jono garcía Worship POC GLUCOSE 2019-06-05 08:18:00 Trey Norman [facility] HC COMPLETE BLD COUNT 2019-06-05 04:20:00 Tejas Escamilla Worship W/AUTO DIFF Louise MAGNESIUM LEVEL 2019-06-05 04:20:00 Tejas Escamilla ethodist Louise PHOSPHORUS LEVEL 2019-06-05 04:20:00 Tejas Escamilla Worship Louise COMPREHENSIVE METABOLIC 2019-06-05 04:20:00 Tejas Escamilla Worship PANEL Louise PARTIAL THROMBOPLASTIN 2019-06-05 04:20:00 Yvette Hernandez on Worship TIME (PTT) ESTIMATED GFR 2019-06-05 04:20:00 Yvette Hernandez Meth odist POC GLUCOSE 2019-06-05 04:18:00 Trey Norman [facility] POC GLUCOSE 2019-06-05 00:57:00 Trey Norman [facility] TRANSFUSE RED BLOOD CELLS 2019-06-04 22:32:21 Trey Norman Worship TRANSFUSE RED BLOOD CELLS 2019-06-04 21:21:15 Trey Norman Worship POC GLUCOSE 2019-06-04 20:57:00 Trey Norman [facility] POC GLUCOSE 2019-06-04 16:48:00 Trey Norman [facility] PARTIAL THROMBOPLASTIN 2019-06-04 15:15:00 Yvette Hernandez on Worship TIME (PTT) POC GLUCOSE 2019-06-04 12:13:00 Trey Norman [facility]ist XR CHEST 1 VW PORTABLE 2019-06-04 10:45:44 Tejas Escamilla Worship Louise CBC HEMOGRAM 2019-06-04 08:44:00 Trey Norman [facility] POC GLUCOSE 2019-06-04 07:39:00 Trey Norman [facility] HEMODIALYSIS 2019-06-04 07:32:12 Imani Arita Percy Meth odist Vida HC COMPLETE BLD COUNT 2019-06-04 05:50:00 Tejas Escamillastephanie joseph Worship W/AUTO DIFF Louise MAGNESIUM LEVEL 2019-06-04 05:50:00 Tejas Escamilla Yvette ethodist Louise PHOSPHORUS LEVEL 2019-06-04 05:50:00 AndiTejas boyd Worship Louise COMPREHENSIVE METABOLIC 2019-06-04 05:50:00 [facility] PANEL Louise PARTIAL THROMBOPLASTIN 2019-06-04 05:50:00 Yvette Hernandez on Worship TIME (PTT) ESTIMATED GFR 2019-06-04 05:50:00 AndiTejas ethodist Louise SMEAR REVIEW 2019-06-04 05:50:00 Andi Chandlergarcia Percy Crawford ethodist Louise POC GLUCOSE 2019-06-04 04:19:00 Trey Norman [facility] POC GLUCOSE 2019-06-04 00:27:00 Trey Norman [facility] PROTHROMBIN TIME WITH INR 2019-06-03 23:20:00 Yvette Hernandez Worship PARTIAL THROMBOPLASTIN 2019-06-03 23:20:00 Yvette Hernandez on Worship TIME (PTT) CBC HEMOGRAM 2019-06-03 23:20:00 Yvette Hernandez Meth odist ANTI XA, UNFRACTIONATED 2019-06-03 23:20:00 Yvette Hernandez Worship POC GLUCOSE 2019-06-03 20:05:[address] [facility] CT ANGIOGRAM PE CHEST 2019-06-03 19:51:51 Yvette Hernandez n Worship POC GLUCOSE 2019-06-03 16:44:00 Trey Norman [facility] ECG 12-LEAD 2019-06-03 14:44:00 Tejas Escamilla ethodist Louise D-DIMER 2019-06-03 14:43:00 Yvette Hernandez Meth odist XR CHEST 1 VW PORTABLE 2019-06-03 14:38:39 Tejas Escamilla Worship Louise RESPIRATORY PATHOGEN PANEL 2019-06-03 14:36:00 AndiChandler garcia Chance Louise ARTERIAL BLOOD GAS 2019-06-03 13:48:00 Andi Tejas sorenson Worship Louise POC GLUCOSE 2019-06-03 12:18:00 Trey Norman [facility]ist XR CHEST 1 VW PORTABLE 2019-06-03 10:58:27 Bimal Gibbs Worship POC GLUCOSE 2019-06-03 08:05:00 Trey Norman [facility] POC GLUCOSE 2019-06-03 06:16:00 Trey Norman [facility] HC COMPLETE BLD COUNT 2019-06-03 03:30:00 Trey Norman on Worship W/AUTO DIFF BASIC METABOLIC PANEL 2019-06-03 03:30:00 Kaylene Watkinsist ESTIMATED GFR 2019-06-03 03:30:00 Kaylene Watkins Worship POC GLUCOSE 2019-06-03 03:03:00 Trey Norman [facility] POC GLUCOSE 2019-06-02 22:08:00 Trey Norman [facility] POC GLUCOSE 2019-06-02 20:23:00 Trey Norman [facility] POC GLUCOSE 2019-06-02 16:39:00 Trey Norman [facility] ARTERIAL BLOOD GAS 2019-06-02 15:25:00 Radha Diaz on Worship XR CHEST 1 VW PORTABLE 2019-06-02 15:20:00 Radha Diaz Worship TRANSFUSE RED BLOOD CELLS 2019-06-02 15:17:45 Zoila Welsh Worship POC GLUCOSE 2019-06-02 13:34:00 Trey Norman [facility] TYPE AND SCREEN 2019-06-02 08:34:00 Zoila Welshist PREPARE RBC 2019-06-02 08:34:00 Trey Norman [facility] CBC HEMOGRAM 2019-06-02 05:20:00 Ad Quintero Meth odist POC GLUCOSE 2019-06-01 22:56:00 Ad Quintero Meth odist POC GLUCOSE 2019-06-01 21:44:00 Ad Quintero Meth odist HEMODIALYSIS 2019-06-01 17:08:11 Zoila Welsh Worship POC GLUCOSE 2019-06-01 17:04:00 Ad Quintero Meth odist CV PYP SCAN FOR CARDIAC 2019-06-01 15:12:30 Ayo Pruett Worship AMYLOIDOSIS POC GLUCOSE 2019-06-01 12:04:00 Ad Quintero Meth odist ECG 12-LEAD 2019-06-01 11:32:51 Vandana Rene Met hodist XR CHEST 1 VW PORTABLE 2019-06-01 11:20:00 Vandana Rene Worship POC GLUCOSE 2019-06-01 07:50:00 Ad Quintero Meth odist KAPPA LAMBDA FREE LIGHT 2019-06-01 05:20:00 Ayo Pruett Worship CHAIN WITH RATIO BASIC METABOLIC PANEL 2019-06-01 05:20:00 Ad Quintero Worship ESTIMATED GFR 2019-06-01 05:20:00 Ad Quintero Meth odist POC GLUCOSE 2019-05-31 21:16:00 Ad Quintero Meth odist ECG 12-LEAD 2019-05-31 17:44:47 Vandana Rene Met hodist BASIC METABOLIC PANEL 2019-05-31 17:33:00 Vandana Rene on Worship MAGNESIUM LEVEL 2019-05-31 17:33:00 Vandana Rene Met hodist ESTIMATED GFR 2019-05-31 17:33:00 Vandana Rene Met hodist POC GLUCOSE 2019-05-31 16:58:[address] Meth odist CT CARDIAC CALCIUM SCORE 2019-05-31 15:35:42 Ayo Pruett Worship POC GLUCOSE 2019-05-31 12:29:00 Ad Quintero Meth odist HEMODIALYSIS 2019-05-31 09:45:19 Zoila Welsh Worship POC GLUCOSE 2019-05-31 07:59:00 Ad Quintero Meth odist T3, FREE 2019-05-31 04:10:00 Jigar Hernandez odgiacomo CBC HEMOGRAM 2019-05-31 04:10:00 Jigar Hernandez odist BASIC METABOLIC PANEL 2019-05-31 00:00:00 Jigar Hernandez n Worship MAGNESIUM LEVEL 2019-05-31 00:00:00 Jigar Hernandez odist IONIZED CALCIUM 2019-05-31 00:00:00 Jigar Hernandez odist PHOSPHORUS LEVEL 2019-05-31 00:00:00 Jigar Hernandez Met hodist ESTIMATED GFR 2019-05-31 00:00:00 Jigar Hernandez odist POC GLUCOSE 2019-05-30 20:56:00 Ad Quintero TTE COMPLETE, WO CONTRAST, 2019-05-30 19:00:00 Jigar Hernandez W DOPPLER ([id number]) POC GLUCOSE 2019-05-30 17:24:00 Ad Quintero US DUPLEX ARTERIAL UPPER 2019-05-30 17:00:00 Jigar Hernandez EXTREMITY BILATERAL US DUPLEX ARTERIAL LOWER 2019-05-30 15:30:00 Jigar Hernandez EXTREMITY BILATERAL US ANKLE BRACHIAL INDEX 2019-05-30 15:30:00 Jigar Hernandez Worship POC GLUCOSE 2019-05-30 11:29:00 Ad Quintero odgiacomo ARTERIAL BLOOD GAS 2019-05-30 11:24:00 Yvette Hernandez M ethodist LDH 2019-05-30 11:05:00 Jigar Hernandez odist POC GLUCOSE 2019-05-30 07:30:00 Ad Quintero XR CHEST 1 VW PORTABLE 2019-05-30 04:10:00 Alba Fine Worship POC GLUCOSE 2019-05-30 03:58:00 Ad Quintero odist URIC ACID LEVEL 2019-05-30 00:50:00 Trey Norman [facility] THYROID STIMULATING 2019-05-30 00:50:00 Trey Norman Worship HORMONE T4, FREE 2019-05-30 00:50:00 Trey Norman [facility] BASIC METABOLIC PANEL 2019-05-30 00:50:00 Alba Fine on Worship IONIZED CALCIUM 2019-05-30 00:50:00 Alba Fine Met h[facility]ist MAGNESIUM LEVEL 2019-05-30 00:50:00 Alba Fine Met [facility]ist PHOSPHORUS LEVEL 2019-05-30 00:50:00 Alba Fine Me thodist ESTIMATED GFR 2019-05-30 00:50:00 Alba Fine Met hodist CBC WITH PLATELET AND 2019-05-30 00:20:00 Alba Fine on Worship DIFFERENTIAL MANUAL DIFFERENTIAL 2019-05-30 00:20:00 Alba Fine Worship POC GLUCOSE 2019-05-29 23:45:00 Ad Quintero Meth odist POC GLUCOSE 2019-05-29 19:47:00 Ad Quintero Meth odist POC GLUCOSE 2019-05-29 16:16:00 Ad Quintero Meth odist POC GLUCOSE 2019-05-29 11:23:00 Ad Quintero Meth odist HEPARIN PF4 ANTIBODY (IGG) 2019-05-29 09:41:00 Trey Norman Worship POC GLUCOSE 2019-05-29 07:36:00 Ad Quintero Meth odist XR CHEST 1 VW PORTABLE 2019-05-29 04:02:00 Alba Fine ton Worship POC GLUCOSE 2019-05-29 04:00:00 Ad Quintero Meth odist ECG 12-LEAD 2019-05-29 03:42:45 Jigar Hernandez Meth odist HC COMPLETE BLD COUNT 2019-05-29 01:00:00 Alba Fine on Worship W/AUTO DIFF BASIC METABOLIC PANEL 2019-05-29 00:33:00 Alba Fine on Worship IONIZED CALCIUM 2019-05-29 00:33:00 Alba Fine Met hodist MAGNESIUM LEVEL 2019-05-29 00:33:00 Alba Fine Met h[facility]ist PHOSPHORUS LEVEL 2019-05-29 00:33:00 Alba Fine [place] thodist ESTIMATED GFR 2019-05-29 00:33:00 Babatunde Alba [place] Met hodist HC COMPLETE BLD COUNT 2019-05-29 00:00:00 Alba Fine on Worship W/AUTO DIFF POC GLUCOSE 2019-05-28 23:52:00 Ad Quintero Meth odist POC GLUCOSE 2019-05-28 20:25:00 Ad Quintero Meth odist POC GLUCOSE 2019-05-28 16:33:00 Ad Quintero Meth odist HEPATITIS B SURFACE 2019-05-28 13:50:00 La Ash ANTIGEN POC GLUCOSE 2019-05-28 11:30:00 Ad Quintero odist HEMODIALYSIS 2019-05-28 11:17:52 La Ash odist HC COMPLETE BLD COUNT 2019-05-28 10:05:00 Jigar Hernandez Worship W/AUTO DIFF XR CHEST 1 VW PORTABLE 2019-05-28 10:02:26 Jigar Hernandez on Worship CONSULT CARDIAC REHAB 2019-05-28 09:42:15 Jigar Hernandez Worship PHASE 1 ECG 12-LEAD 2019-05-28 09:42:01 Jigar Hernandez odist BASIC METABOLIC PANEL 2019-05-28 09:41:00 Jigar Hernandez Worship MAGNESIUM LEVEL 2019-05-28 09:41:00 Jigar Hernandez odist PHOSPHORUS LEVEL 2019-05-28 09:41:00 Jigar Hernandez hodist IONIZED CALCIUM 2019-05-28 09:41:00 Jigar Hernandez odist PROTHROMBIN TIME WITH INR 2019-05-28 09:41:00 Jigar Hernandez Worship PARTIAL THROMBOPLASTIN 2019-05-28 09:41:00 Jigar Hernandez on Worship TIME (PTT) TYPE AND SCREEN 2019-05-28 09:41:00 Jigar Hernandez odist ESTIMATED GFR 2019-05-28 09:41:00 Jigar Hernandez odist HEMOGLOBIN A1C 2019-05-28 09:41:00 Jigar Hernandez odist POC GLUCOSE 2019-05-28 09:39:00 Ad Quintero Meth odist Plan of Care Planned Activity Planned Date Details Comments Source Future Scheduled 2019-12-13 INFLUENZA VACCINE [place] [facility] 00:00:00 [code = INFLUENZA VACCINE] Future Scheduled 2004-01-13 65+ PNEUMOCOCCAL [facility] [facility] 00:00:00 VACCINE (1 of 2 - PCV13) [code = 65+ PNEUMOCOCCAL VACCINE (1 of 2 - PCV13)] Future Scheduled 1989-01-12 SHINGLES VACCINES (#1) [place] [facility] 00:00:00 [code = SHINGLES VACCINES (#1)] Future Scheduled 1949-01-12 DIABETIC FOOT EXAM [place] [facility] 00:00:00 [code = DIABETIC FOOT EXAM] Future Scheduled 1949-01-12 URINE MICROALBUMIN [place] [facility] 00:00:00 [code = URINE MICROALBUMIN] Future Scheduled 1939 DIABETIC RETINAL EYE [place] [facility] [facility] 00:00:00 EXAM [code = DIABETIC RETINAL EYE EXAM] Encounters Start End Encounter Admission Attending Care Care Encounter Source Date/Time Date/Time Type Type Clinicians Facility Department ID 2019-07-18 Inpatient [facility] [id number] 4 [place] 15:02:00 [facility] 2019-05-28 2019-06-09 Inpatient [facility] [id number] [place] 00:00:00 00:00:00 TREY [address] 2019-06-01 2019-06-01 Outpatient [facility]ATH[facility] [id number] [place] 00:00:00 00:00:[address] 2019-06-01 2019-06-01 Outpatient JOHNATHAN [facility] [id number] [place] 00:00:00 00:00:[address] 2019-03-22 2019-03-22 [facility] [id number] [address] 09:45:00 09:45:00 [facility] Results Test Description Test Time Test Comments Results Result Comments Source GLUBED 2019-08-30 17:19:00 Test Item Value Reference Range Interpretation Comme nts GLUBED (test code = GLUBED) 175 MG/DL 70-110 H Performed by certified 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 [facility] Coronavirus 2019 nCoV [id number] 14:30:00 Test Item Value Reference Range Interpretation Comments Coronavirus 2019 Negative Negative Negative re sults should be nCoV Bedside (test treated a s presumptive and, code = ifinconsistent with COVNONPUIBED) clinical signs and symptoms or necessaryfor patient management, matilde uld be tested with an alternativemole cular assay. Negative result s do not preclude [id number] tion and should not be u sed as the sole basis forp atient management deci sions. Negative result s should beconsidered in the context of a patient's recent exposures,histo ry, presence of clinical sig ns and symptoms consis tentwith COVID-19. [id number] 12:08:00 Test Item Value Reference Range Interpretation Comments GLUBED (test code = 204 MG/DL 70-110 H Performe d by certified GLUBED) 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 [facility] [id number] 08:21:00 Test Item Value Reference Range Interpretation Comments GLUBED (test code = 128 MG/DL 70-110 H Performe d by certified GLUBED) 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 [facility] [id number] 20:23:00 Test Item Value Reference Range Interpretation Comments GLUBED (test code = 315 MG/DL 70-110 H Performe d by certified GLUBED) 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 [facility] [id number] 16:00:00 Test Item Value Reference Range Interpretation Comments GLUBED (test code = 189 MG/DL 70-110 H Performe d by certified GLUBED) 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 [facility] ACUTE HEPATITIS [id number] 13:28:00 Test Item Value Reference Range Interpretation Comments AB HEPATITIS A IGM (test NON REACTIVE INDEX NON REACT. code = HAVMAB) AG HEPATITIS B SURFACE NON REACTIVE INDEX NonReactive (test code = HBSAG) AB HEPATITIS B CORE IGM NON REACTIVE INDEX NON REACT. (test code = HBCMAB) AB HEPATITIS C (test code NON REACTIVE INDEX NON REACT. = HCVAB) ACUTE HEPATITIS [id number] 13:24:00 Test Item Value Reference Range Interpretation Comments AB HEPATITIS A IGM (test INDEX NON REACT. code = HAVMAB) AG HEPATITIS B SURFACE NON REACTIVE INDEX NonReactive (test code = HBSAG) AB HEPATITIS B CORE IGM NON REACTIVE INDEX NON REACT. (test code = HBCMAB) AB HEPATITIS C (test code NON REACTIVE INDEX NON REACT. = HCVAB) ACUTE HEPATITIS [id number] 12:57:00 Test Item Value Reference Range Interpretation Comments AB HEPATITIS A IGM (test INDEX NON REACT. code = HAVMAB) AG HEPATITIS B SURFACE NON REACTIVE INDEX NonReactive (test code = HBSAG) AB HEPATITIS B CORE IGM INDEX NON REACT. (test code = HBCMAB) AB HEPATITIS C (test code INDEX NON REACT. 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 [facility] [id number] 17:38:00 Test Item Value Reference Range Interpretation Comments GLUBED (test code = 135 MG/DL 70-110 H Performe d by certified GLUBED) 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 [facility] [id number] 06:12:00 Test Item Value Reference Range Interpretation Comments GLUBED (test code = 136 MG/DL 70-110 H Performe d by certified GLUBED) 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 [facility] [id number] 06:12:00 Test Item Value Reference Range Interpretation Comments GLUBED (test code = 128 MG/DL 70-110 H Performe d by certified GLUBED) 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 [facility] B-TYPE NATRIURETIC [id number] 21:19:00 Test Item Value Reference Range Interpretation Comments B-TYPE NATRIURETIC PEPTIDE (test 583.7 PG/ML 0-100 H code = BNP) CBC W/AUTO [id number] 20:47:00 Test Item Value Reference Range Interpretation [...] NO = AUDREY) - CT NECK W/O [id number] 20:05:00 Name: ANDREA PEREZ [facility] : 1940 Age/S: 79 / M [address] [place] [address] Unit #: [id number] Loc: Cem [id number] Phys: Andrew Velez MD Acct: [id number] Dis Date: Status: REG ER PHONE #: [phone] Exam Date: 08/27/20191943 FAX #: [phone] Reason: neck swelling EXAMS: CPTCODE: [id number] CT NECK W/O CONTRAST 41226 Clinical Indication: Neck swelling; Comparison: None Technique: [...] 1 Signed Report (CONTINUED) Name: ANDREA PEREZ [facility] [place] : 1940 Age/S: 79 / M [address] [place] [address] Blvd U nit #: [id number] Loc: [place] [address] Phys: Andrew Velez MD Acct: [id number] Dis Date: Status: REG ER PHONE #: [phone] Exam Date: 08/27/20191943 FAX #: [phone] Reason: neck swelling EXAMS: CPT CODE: [id number] CT NECK W/O CONTRAST 47232 <Continued> of the mandibular teeth to suggest [...] 08/27/2019 (2008) PAGE 2 Signed ReportBASIC METABOLIC [id number] 19:20:00 Test Item Value Reference Range Interpretation [...] 8.7 mg/dL 8.0-10.5 N CA) HEPATIC FUNCTION [id number] 19:20:00 Test Item Value Reference Range Interpretation [...] 127 IUnit/L 20-125 H code = ALKP) [id number] 19:20:00 Test Item Value Reference Range Interpretation Comments LIPASE (test code = LIP) 259 IUnit/L 73-393 N [id number] 19:20:00 Test Item Value Reference Range Interpretation [...] may ana y by method. BASIC METABOLIC [id number] 19:19:00 Test Item Value Reference Range Interpretation [...] code = CA) mg/dL 8.0-10.5 HEPATIC FUNCTION [id number] 19:19:00 Test Item Value Reference Range Interpretation Comments TOTAL PROTEIN (test code = PROT) g/dL 6.4-8.2 ALBUMIN (test code = ALB) g/dL 3.4-5.0 BILIRUBIN TOTAL (test code = BILT) MG/DL <1.5 BILIRUBIN DIRECT (test code = BILD) MG/DL 0.0-0.30 SGOT/AST (test code = AST) IUnit/L 15-37 SGPT/ALT (test code = ALT) IUnit/L 15-65 ALKALINE PHOSPHATASE TOTAL (test IUnit/L 20-125 code = ALKP) [id number] 19:19:00 Test Item Value Reference Range Interpretation Comments LIPASE (test code = LIP) IUnit/L 73-393 [id number] 19:19:00 Test Item Value Reference Range Interpretation [...] y by method. - XR CHEST 1 [id number] 18:26:00 FAX: Andrew Velez MD [phone] [place]: St: REG Name: ANDREA PEREZ [facility] [place] : 1940 Age/S: 79/M [address] [place] [address] Bl Unit#: [id number] Loc: Susanne[address] [address] Phys: Andrew Velez MD Acct: [id number] Dis Date: Status: REG ER PHONE #: [phone] Exam Date: 08/27/20191811 FAX #: [phone] Reason: SOB EXAMS: CPT CODE: [id number] XR CHEST 1 V 10752 Portable single view AP chest INDICATION: Shortness [...] D/T: S: 08/27/2019 (1828) PAGE 1 Signed [id number] 12:06:00 Test Item Value Reference Range Interpretation Comments GLUBED (test code = 174 MG/DL 70-110 H Performe d by certified GLUBED) 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 [facility] [id number] 08:04:00 Test Item Value Reference Range Interpretation Comments GLUBED (test code = 177 MG/DL 70-110 H Performe d by certified GLUBED) 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 [facility] [id number] 21:17:00 Test Item Value Reference Range Interpretation Comments GLUBED (test code = 231 MG/DL 70-110 H Performe d by certified GLUBED) 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 [facility] [id number] 17:24:00 Test Item Value Reference Range Interpretation Comments GLUBED (test code = 123 MG/DL 70-110 H Performe d by certified GLUBED) 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 [facility] BASIC METABOLIC [id number] 15:59:00 Test Item Value Reference Range Interpretation [...] 8.1 mg/dL 8.0-10.5 N CA) CBC W/AUTO [id number] 15:41:00 Test Item Value Reference Range Interpretation [...] DIFF REQUIRED (test NO code = MDIFF) [id number] 12:16:00 Test Item Value Reference Range Interpretation Comments GLUBED (test code = 154 MG/DL 70-110 H Performe d by certified GLUBED) 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 [facility] [id number]%2019-07-28 11:41:00 Test Item Value Reference Range Interpretation Comments HGBA1C% (test code = HGBA1C%) 5.3 %A1C 4.8-6.0 N COMMENTS: use existing specimenCBC W/AUTO [id number] 10:42:00 Test Item Value Reference Range Interpretation [...] (test NO code = MDIFF) ACUTE HEPATITIS [id number] 08:09:00 Test Item Value Reference Range Interpretation [...] COMMENTS: At start of hemodialysisAB HEPATITIS B [id number] 08:09:00 Test Item Value Reference Range Interpretation Comments AB HEPATITIS B < 3.1 mIU/mL Immunity>9.9 L Status of I mmunity SURFACE (test code = HBSAB) Anti-HBs Level --- I ncons istent with Imm unity 0.0 - 9.9Consis tent with Immunity >9.9Performed A t: [facility] [id number] Robi Hinton MD Ph:[phone] COMMENTS: At start of rljrgkkudokvXACCWC8405-85-83 07:15:00 Test Item Value Reference Range Interpretation Comments GLUBED (test code = 131 MG/DL 70-110 H Performe d by certified GLUBED) 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 [facility] [id number] 20:07:00 Test Item Value Reference Range Interpretation Comments GLUBED (test code = 199 MG/DL 70-110 H Performe d by certified GLUBED) 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 [facility] [id number] 16:34:00 Test Item Value Reference Range Interpretation Comments GLUBED (test code = 196 MG/DL 70-110 H Performe d by certified GLUBED) 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 [facility] - XR FLUOROSCOPY 0-60 [id number] 16:12:00 FAX: Davie Courtney [phone] [place]: St: ADM FAX: Jesus Spencer [phone] Name: ANDREA PEREZ [facility] : 1940 Age/S: 79/M [address] [place] [address] Unit #: [id number] Loc: G.5529 [place] [address] Phys: Alexandr Kwon MD Acct: [id number] Dis Date: Status: ADM IN PHONE #: [phone] Exam Date: 07/27/2019 1130 FAX #: [phone] Reason: LT AV GRAFT MALFUNCTION EXAMS: CPT CODE: [id number] XR FLUOROSCOPY 0-60 MIN 20968 Intraprocedural fluoroscopy was provided by the Department of Radiology. Any images obtained were interpreted by the surgeon intraoperatively. FLUOROSCOPY TIME: 1 minute 21 seconds REFERENCE AIR KERMA : 15.0 mGy SL: [id number] at 1612 Reported and signed by: Torrey Yan M.D. 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 [facility] [id number] 16:59:00 Test Item Value Reference Range Interpretation Comments GLUBED (test code = 150 MG/DL 70-110 H Performe d by certified GLUBED) 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 code = HAVMAB) AG HEPATITIS B SURFACE NON REACTIVE INDEX NonReactive (test code = HBSAG) AB HEPATITIS B CORE IGM INDEX NON REACT. (test code = HBCMAB) AB HEPATITIS C (test code INDEX NON REACT. = HCVAB) COMMENTS: At start of hemodialysisAB HEPATITIS B [id number] 13:40:00 Test Item Value Reference Range Interpretation Comments AB HEPATITIS B SURFACE (test code = HBSAB) COMMENTS: At start of hemodialysis- DUP LE ART UNI/LSM4180-27-27 11:49:00 Name: ANDREA PEREZ [facility] : 1940 Age/S: 79 / M [address] [place] [address] Unit #: [id number] Loc: Cem [id number] Phys: Alexandr Kwon MD Acct: [id number] Dis Date: Status: ADM IN PHONE #: [phone] Exam Date: 07/26/2019 1032 FAX #: [phone] Reason: right foot non-healing wound EXAMS: CPTCODE: [id number] [facility] [employer] UN[employer]TD 49732 RIGHT LOWER EXTREMITY ARTERIAL DOPPLER 07/26/2019 AT 1013 HOURS. CLINICAL HISTORY: Nonhealing rightfoot wound. COMPARISONS: None relevant. FINDINGS: Duplex sonographic evaluation of the bilateral lower extremity arterial circulation was performed. RIGHT SIDE: Triphasic waveforms are seen in the right common femoral, superficial femoral and popliteal artery. Monophasic waveforms are seen in the right posterior tibialis and dorsalis pedis artery. PEAK SYSTOLIC VELOCITIES: LIBRARIAN ASSISTANT: 97 cm/s Femoral artery: 101 cm/s Popliteal: 42 cm/s Posterior tibialis: 29 cm/s Dorsalis pedis artery: 12 cm/s. IMPRESSION: 1. Severe right trifurcation atherosclerosis. 2. Nearly 60% drop in peak systolic velocities between right femoral and popliteal artery with preserved popliteal triphasic waveforms. Suspect flow-limiting stenosis at distal popliteal level. SL: [id number] at 1149 Reported and signed by: Desean Gong M.D. 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 [facility] BASIC METABOLIC [id number] 08:33:00 Test Item Value Reference Range Interpretation [...] code = 8.3 mg/dL 8.0-10.5 N CA) [id number] 08:33:00 Test Item Value Reference Range Interpretation Comments MAGNESIUM (test code = MAG) 2.50 mg/dL 1.8-2.4 H [id number] 08:10:00 Test Item Value Reference Range Interpretation Comments GLUBED (test code = 172 MG/DL 70-110 H Performe d by certified GLUBED) 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 [id number] 22:48:00 Test Item Value Reference Range Interpretation Comments GLUBED (test code = 125 MG/DL 70-110 H Performe d by certified GLUBED) 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 [facility] - XR CHEST 1 [id number] 18:11:00 FAX: Davie Courtney [phone] [place]: St: ADM FAX: Jesus Spencer [phone] Name: ANDREA PEREZ [facility] : 1940 Age/S: 79/M [address] [place] [address] Unit #: [id number] Loc: G.5529 [place] [address] Phys: Alexandr Kwon MD Acct: [id number] Dis Date: Status: ADM IN PHONE #: [phone] Exam Date: 07/25/2019 180 FAX #: [phone] Reason: Post Op EXAMS: CPT CODE: [id number] XR CHEST 1 V 16910 Portable single view AP chest INDICATION: Postop. [...] PAGE 1 Signed Report- XR FLUOROSCOPY 0-60 [id number] 17:51:00 FAX: Davie Courtney [phone] [place]: St: ADM FAX: Jesus Spencer [phone] Name: ANDREA PEREZ [facility] : 1940 Age/S: 79/M [address] [place] [address] Unit #: [id number] Loc: G.5529 [place] [address] Phys: Alexandr Kwon MD Acct: [id number] Dis Date: Status: ADM IN PHONE #: [phone] Exam Date: 07/25/2019 1645 FAX #: [phone] Reason: MALFUNCTION LT ARM AV GRAFT EXAMS: CPT CODE: [id number] XR FLUOROSCOPY 0-60 MIN 57887 Fluoroscopic guidance was provided by the radiology [...] By: JollySG9 Orig Print D/T: S: 07/25/2019 (687) PAGE 1 Signed ReportCBC W/AUTO [id number] 15:22:00 Test Item Value Reference Range Interpretation [...] REQUIRED (test NO code = MDIFF) PLT [id number] 15:22:00 Test Item Value Reference Range Interpretation Comments PLATELET ESTIMATE (test code 140-175 THOUSAND ADEQUATE = PLTEST) PLATELET MORPHOLOGY (test LARGE PLATELETS code = PLTMORPH) PROTHROMBIN [id number] 09:45:00 Test Item Value Reference Range Interpretation [...] o prevent recurre nt infarct). THROMBOPLASTIN TIME [id number] 09:45:00 Test Item Value Reference Range Interpretation Comments THROMBOPLASTIN TIME 33.9 Seconds 25.0-39.5 N Ther apeutic PARTIAL (test code = Range: 50.4 - 88.3 PTT) Seconds Effective 07/27/2018 [id number] 09:37:00 Test Item Value Reference Range Interpretation Comments PHOSPHOROUS (test code = PHOS) 4.1 MG/DL 2.5-4.9 N [id number] 09:37:00 Test Item Value Reference Range Interpretation Comments MAGNESIUM (test code = MAG) 2.40 mg/dL 1.8-2.4 N COMPREHENSIVE METABOLIC [id number] 09:11:00 Test Item Value Reference Range Interpretation [...] TOTAL (test code = ALKP) COMPREHENSIVE METABOLIC [id number] 09:06:00 Test Item Value Reference Range Interpretation [...] IUnit/L 20-125 code = ALKP) CBC W/AUTO [id number] 09:04:00 Test Item Value Reference Range Interpretation [...] REQUIRED (test NO code = MDIFF) PLT [id number] 09:04:00 Test Item Value Reference Range Interpretation Comments PLATELET ESTIMATE (test code = THOUSAND ADEQUATE PLTEST) CBC W/AUTO [id number] 09:04:00 Test Item Value Reference Range Interpretation [...] REQUIRED (test NO code = MDIFF) PLT [id number] 09:04:00 Test Item Value Reference Range Interpretation Comments PLATELET ESTIMATE (test code = THOUSAND ADEQUATE PLTEST) POC riozypo2263-36-85 16:36:33 Test Item Value Reference Range Interpretation Comments POC glucose (test code = 238 mg/dL 65-99 H Ope rator Name: 13490-2) Veena Sexton ice ID: [id number] able: [facility] Notified candy mixer Interpretation (test Abnormal code = 74557-9) [facility] MethodistPartial thromboplastin time, ayzqhukte7255-50-14 06:11:45 Test Item Value Reference Range Interpretation Comments PTT (test code = 52.8 23.0- 36.0 sec H PTT thera peutic range 94180-0) for unfractiona deshawn heparin is61.0- 112.0 seconds which corresponds to Anti-Xa0.3-0.7 U/ml. Lab Interpretation Abnormal (test code = 53914-1) [facility] MethodistCBC with platelet and omhltdgkytai4829-17-79 06:01:31 Test Item Value Reference Range Interpretation Comments WBC (test code = 88392-7) 11.21 4.50- 11.00 k/uL H RBC (test code = 15596-9) 3.04 m/uL 4.4-6 L HGB (test code = 718-7) 8.5 g/dL 14-18 L HCT (test code = 4544-3) 29.7 % 41-51 L MCV (test code = 787-2) 97.7 fL 82-100 MCH (test code = 785-6) 28.0 pg 27-34 MCHC (test code = 786-4) 28.6 g/dL 31-37 L RDW - SD (test code = 63.7 fL 37-55 H 20292-5) MPV (test code = 19796-0) 12.5 fL 8.8-13.2 Platelet count (test code 127 150- 400 k/uL L = 70961-2) Nucleated RBC (test code 0.00 /100 WBC = 09254-6) Neutrophils (test code = 78.6 % 39-69 H 22121-5) Lymphocytes (test code = 8.8 % 25-45 L 86348-7) Monocytes (test code = 10.9 % 0-10 H 18798-5) Eosinophils (test code = 1.1 % 0-5 85090-7) Basophils (test code = 0.2 % 0-1 93057-9) Immature granulocytes 0.4 % 0-1 "Immat ure (test code = 92604-0) granul ocytes" (promyelocytes, myelocytes, metamyelocytes) Lab Interpretation (test Abnormal code = 59096-6) [facility] Chest 1 Vw Ennwvcxy3725-72-08 12:45:16Hm Interface, Radiology Results - 06/08/2019 12:48 [...] effusion. No pneumothorax.Bones: Regional osseous structures appear stable.[facility] CITYJ-[id number] [facility] metabolic vahvt1331-31-19 06:39:31 Test Item Value Reference Range Interpretation Comments Sodium (test code = 2951-2) 135 135- 148 mEq/L Potassium (test code = 2823-3) 4.2 3.5- 5.0 mEq/L Chloride (test code = 2075-0) 97 98- 112 mEq/L L CO2 (test code = 8-9) 26 24- 31 mEq/L Anion gap (test code = 81113-3) 12@ANIO 7- 15 mEq/L BUN (test code = 3094-0) 31 mg/dL 8-23 H Creatinine (test code = 2160-0) 4.21 mg/dL 0.7-1.2 H Glucose (test code = 2345-7) 117 mg/dL 65-99 H Calcium (test code = 31787-1) 9.0 mg/dL 8.8-10.2 Lab Interpretation (test code = Abnormal 58658-0) [facility] MethodistMagnesium ceaxf3487-98-58 06:39:31 Test Item Value Reference Range Interpretation Comments Magnesium (test code = 86452-8) 2.3 mg/dL 1.6-2.4 [facility] MethodistPhosphorus nrmkg9008-42-46 06:39:31 Test Item Value Reference Range Interpretation Comments Phosphorus (test code = 2777-1) 2.5 mg/dL 2.4-4.5 [facility] MethodistEstimated [id number] 06:39:31 Test Item Value Reference Range Interpretation Comments Estimated GFR (test 14 mL/min/1.73 m2 Garcia Gallegoscaridad roger Units code = 5488) InterpretationG 1 >=90 Hannah l or highG2 60-89 Mildly decrease dG3a 45-59 Mil dly to moderately decr kglojS1o 30-44 Moderately to s everely decreasedG4 15-29 Severe ly decreasedG5 <15 Kidney fina lureThe eGFR was calcul ated using the [facility] Kidney Disease Epidemiology Collaboration ( CKD-EPI) equation. Interpretation is based on recommendati ons of the National Ki dney Foundation-Kidn ey Disease Outcome s Quality Initiat go (NKF-KDOQI) pub lished in 2013. Lab Interpretation Abnormal (test code = 30127-3) [facility] MethodistArterial blood nwz9684-30-87 11:45:20 Test Item Value Reference Range Interpretation [...] 2708-6) Lab Interpretation (test code = Abnormal 70820-5) [facility] MethodistUs duplex venous lower cocvlvphp7986-58-95 08:10:00Interface, Radiology Results In - 06/07/2019 8:11 AM [facility] Vascular Ultrasound Laboratory Lower Extremity Venous [address] [place] [address] Pat.Name: GABBY PEREZ Pat.ID: [id number] .Date: 06/07/2019 Refer.MD: KIMBERLY KHANNA MD Exam Time: 4:51:00 AM Study Type:LE Venous Age: 1001/16/1940,79Y Sex: MALE Sonogrphr: Jamal Lira, BA, BS, RDMS, RVTPat. Stat.:Inpatient Room: [address] Tape Vol: ZENAIDA, CPT - 4: 69740 Echo Event ID:[id number] Order ID: [id number] Reason for Study:Evaluate for DVT. Patient has [...] thigh, medial to the femoral vessels, measuring umddqbceshefc39.4x6.2x,2.34cm FINDINGS: Signed 06/07/2019 08:10 Jb Yung MD, [facility]IF[facility] wkdknzno6967-22-72 04:26:08 Test Item Value Reference Range Interpretation Comments WBC (test code = 88076-8) 16.21 4.50- 11.00 k/uL H RBC (test code = 86515-5) 3.35 m/uL 4.4-6 L HGB (test code = 718-7) 9.6 g/dL 14-18 L HCT (test code = 4544-3) 32.4 % 41-51 L MCV (test code = 787-2) 96.7 fL 82-100 MCH (test code = 785-6) 28.7 pg 27-34 MCHC (test code = 786-4) 29.6 g/dL 31-37 L RDW - SD (test code = 17711-0) 64.8 fL 37-55 H MPV (test code = 14156-1) 12.3 fL 8.8-13.2 Platelet count (test code = 132 150- 400 k/uL L 61709-2) Nucleated RBC (test code = 0.00 /100 WBC 85226-9) Lab Interpretation (test code = Abnormal 89234-6) [facility] MethodistOccult blood, itkxs9643-19-49 20:16:15 Test Item Value Reference Range Interpretation Comments Occult blood, Negative for Specimen stool (test occult blood. InformationSpe manish code = Source: StoolSp ecimen 2334-1) Site: Nonpreser nguyen [facility] MethodistComprehensive metabolic tjcxm8340-00-37 04:23:36 Test Item Value Reference Range Interpretation Comments Sodium (test code = 136 135- 148 mEq/L 2951-2) Potassium (test code = 4.7 3.5- 5.0 mEq/L 2823-3) Chloride (test code = 96 98- 112 mEq/L L 2075-0) CO2 (test code = 2027-9) 25 24- 31 mEq/L Anion gap (test code = 15@ANIO 7- 15 mEq/L 78314-1) BUN (test code = 3094-0) 38 mg/dL 8-23 H Creatinine (test code = 4.73 mg/dL 0.7-1.2 H 2160-0) Glucose (test code = 77 mg/dL 65-99 2345-7) Calcium (test code = 8.7 mg/dL 8.8-10.2 L 18295-2) Protein (test code = 6.4 g/dL 6.3-8.3 9994.6-7.0 2885-2) g/dL1 vywk8205.4-7.6 g/dL7 months-0gvvo334 .1- 7.3 g/dL1-2 lmzqa052.6-7.5 g/dL>3 dgarh873.0-8.0 g/uT56-9698757. 3-8 .3 g/dL Albumin (test code = 2.4 g/dL 3.5-5 L 1751-7) A/G ratio (test code = 0.6 0.7-3.8 L 1759-0) Alkaline phosphatase 77 U/L 40-129 (test code = 6768-6) AST (test code = 1920-8) 10 U/L 10-50 ALT (test code = 1742-6) 15 U/L 5-50 Total bilirubin (test 0.5 mg/dL 0-1.2 code = 1975-2) Lab Interpretation (test Abnormal code = 92964-1) [facility] AllenistECG 12 vllf2056-99-11 10:46:09 Test Item Value Reference Range Interpretation Comments Ventricular rate (test 115 code = 253) Atrial rate (test code 115 = 255) NE interval (test code 114 = 266) QRSD [...] change was found-- [facility] ChancePrepare RBC, 2 Ezfzs2096-93-27 20:18:00 Test Item Value Reference Range Interpretation Comments Product name (test code Apheresis Red Cell AS3 = 25) #2 LR Unit number (test code [id number] = 0580051) Product code (test code W9585Y45 = 3092) Dispense status (test Transfused code = 24) Blood expiration date (test code = 302) Blood type code (test 5100 code = 308) Blood type (test code = O POSITIVE 1314) Compatibility (test Compatible code = 6400) [facility] AllenistSmear iawlap8610-55-09 09:08:06 Test Item Value Reference Range Interpretation Comments Platelet slide review (test code Trell slt decr = 99429-2) Anisocytosis (test code = 702-1) Moderate Polychromasia (test code = Moderate 25157-9) Ovalocytes (test code = 774-0) Moderate [facility] MethodistAnti Xa, uxfutwyirhxhxt9729-03-61 00:22:06 Test Item Value Reference Range Interpretation Comments Anti Xa, unfractionated <0.10 0.3-0.7 L Ther apeutic Range: (test code = 3274-8) 0.30 - 0.70 U/mL Lab Interpretation (test Abnormal code = 21186-3) [facility] MethodistProthrombin time with CAJ8017-91-43 00:09:41 Test Item Value Reference Range Interpretation Comments Prothrombin time (test 14.8 11.5- 14.5 sec H code = 5902-2) INR (test code = 1.2 The Intern[facility] 30098-2) Normalized Rati o (INR) is a therapeuti c monitoring tool for patients who ar e stable on oral anticoagulant t herapy. An INR of 2.0-3 .0 is suggested for d eep vein thrombosis/pulm onary embolism. Lab Interpretation Abnormal (test code = 53262-1) [facility] MethodistRespiratory pathogen rllrh1813-31-90 22:13:14 Test Item Value Reference Interpretation Comments Range Respiratory Positive for Influenza A Speci men pathogen panel A/H1-2008 [facility] ecimen (test code = virus Gris rce: 2148) ----Negative for all [facility] ecimen Site: other pathogens Right tested:Negative for AdenovirusNegative for Coronavirus PNI7Ghrzmjds for Coronavirus ZK79Mmcppkxi for Coronavirus 229ENegative for Coronavirus TG45Lnhqbkuu for Human MetapneumovirusNegative for Rhinovirus/EnterovirusNe gative for Influenza ANegative for Influenza A/B0Wuwvbgrt for Influenza A/Z3Rgbwmuqf for Influenza BNegative for Parainfluenza Virus 1Negative [...] assay. Lab Abnormal Interpretation (test code = 67139-7) [facility] MethodistCT Angiogram Pe Xozto5526-95-88 20:01:02Hm Interface, Radiology Results - 06/03/2019 8:04 [...] Kerr, at 8:00 PM, and she expressed understandingPROTESTANT HOS[facility]ITAL-4BK58349EIDkqgitz OieyittkxJ-vfeso4846-62-21 15:17:52 Test Item Value Reference Range Interpretation Comments D-dimer (test code = 1.73 0.00- 0.40 ug/mL H Uni ts are ug/ml 42769-8) FEU Fibrinogen Equivalent Unit .When combined with [...] malignancies. Lab Interpretation Abnormal (test code = 11365-5) [facility] MethodistType and [id number] 09:53:00 Test Item Value Reference Range Interpretation Comments ABO grouping (test code = 883-9) O Rh type (test code = 14362-5) POS Antibody screen (gel) (test code = NEG 890-4) [place] [facility] lambda free light chain with [id number] 07:19:49 Test Item Value Reference Range Interpretation Comments [place] light chain (test code = 289.08 mg/L 3.3-19.4 H 64716-8) Lambda light chain (test code = 143.97 mg/L 5.7-26.3 H 58282-3) [place] lambda ratio (test code = 2.01 0.26-1.65 H 02166-4) Lab Interpretation (test code = Abnormal 89103-0) [place] MethodistCv pyp scan for cardiac seckkqsvewd0146-72-38 15:40:00 Interface, Radiology Results In - 06/01/2019 3:40 PM [facility] Nuclear Cardiology and Cardiac CT [address] [place] [address] PYP Cardiac Amyloidosis Imaging ReportPat.Name: GABBY PEREZ Pat.ID: [id number] .Date: 06/01/2019 Refer.MD: AD QUINTERO MD Exam Time: 11:24:00 AM Study Type:PYP Cardiac Amyloidosis ImagingHeight: 71in Weight: 266lb BSA: 2.38 m2 Age: 1001/16/1940,79Y Sex: MALE Nuclear Tech:TRACY TavaresMT, [facility](N)Pat. Stat.:Inpatient NuclearEvent ID:[id number] Order ID: [id number] Reason for Study:R/O TTR amyloid History / [...] (ATTR). -------FINDINGS: Signed 06/01/2019 03:40 PMMohan Saucedo MDPort Penn MethodistT3, [id number] 08:33:03 Test Item Value Reference Range Interpretation Comments T3, free (test code = 1.1 pg/mL 2.4-4.2 L REFERE NCE INTERVAL: 5404-9) Triiodothyronin e, Free (Free T3)A ccess complete set of age- and/or gender-specific reference inter vals for this test i n the [facility] Directory ([facility]).P erfor med by [employer],[address] [facility], [place] [address] oer .[employer], Jared Foster MD, Dorothy gotti Director Lab Interpretation (test Abnormal code = 50436-5) [facility] calcium [id number] 19:15:00Interface, Radiology Results In - 05/31/2019 7:15 PM [facility] Nuclear Cardiology and Cardiac CT [address] [place] [address] [address] Calcium Scoring ReportPat.Name: GABBY PEREZ [facility].ID: [id number] .Date: 05/31/2019 Refer.MD: AD QUINTERO MD Exam Time: 3:04:00 PM Study Type:CT Calcium Scoring Height: 71in Weight: 266lbBSA: 2.38 m2 Age: 1001/16/1940,79Y Sex: MALE HR: 92 bpm Nuclear Tech:Ayo Aviles RT([place])(CT), [facility]/Abdiel Billings [facility]. Stat.:Inpatient Nuclear Event ID:[id number] Order ID: [id number] Reason for Study:Eval Aortic Valve Procedures: CT Flash mode Race: Black SUMMARY: Technique: Sequential 3mm CT cuts were obtained through the [facility] [employer] [facility] scanner with ECG gating. 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 Stat.:Inpatient Room: [address] Study Status:Final Echo Event ID:[id number] Order ID: [id number] Reason for Study:Aortic stenosis evaluation.History / Clinical:Congestive [...] of 10 mmHg. MEASUREME NTS: 2DParasternal Long [place] AoAn 2.5 cm LVPWd 1.2 cm Ao [...] SVi 42ml/m2 Signed 05/31/2019 01:49 PMJodi Rose M.D.[place] MethodistIonized [id number] 07:45:51 Test Item Value Reference Range Interpretation Comments pH (test code = 2753-2) 7.38 Ionized calcium (test code = 1.06 mmol/L 1.11-1.32 L ) Lab Interpretation (test code = Abnormal 84380-6) [place] MethodistHeparin PF4 antibody (IgG)2019-05-31 02:31:58 Test Item Value Reference Range Interpretation Comments Heparin PF4 Ab OD reading (test code 0.206 0.000-0.399 = 1500) Heparin PF4 Ab, IgG (test code = Negative Negative 66791-2) [place] MethodistUs duplex arterial lower [id number] 21:50:00Interface, Radiology Results In - 05/31/2019 9:03 AM [facility] Vascular Diagnostic Laboratory Physiologic Arterial Leg Report [address] [place] [address] Pat.Name: GABBY PEREZ Pat.ID: [id number] .Date: 05/30/2019 Refer.MD: AD QUINTERO MD Exam Time: 2:32:00 PM Study Type:Physiologic Leg Age: 1001/16/1940,79Y Sex: MALE Sonogrphr: Priti Recinos RVT Pat. Stat.:Inpatient Room: WT9-0905-A Tape Vol: RF, CPT - 4: 58279 Echo Event ID:[id number] Order ID: [id number] Reason for Study:Bilateral decreased pedal pulses. History of ESRD onHD via left AVFm CHFm AICD,aortic stenosis, cardiomyopathy, DMhypoxic respiratory failure, chronic trach, PAD.Procedures: Ankle/brachial pressures, Digit pressuresRace: B -----SUMMARY: ANKLE/BRACHIAL INDEX: RIGHT LEFT Brachial Artery Moqyrbnn472 mmHg AV-Fistula DP 0 mmHg 0 mmHg [...] FINDINGS: Signed 05/30/2019 9:50:00 PMMarcellus Yung MD, RPVIPort [facility] Methodist ankle brachial [id number] 21:50:00Interface, Radiology Results In - 05/30/2019 9:50 PM [facility] Vascular Diagnostic Laboratory Physiologic Arterial Leg Report [address] [address] Pat.Name: GABBY PEREZ Pat.ID: [id number] .Date: 05/30/2019 Refer.MD: AD QUINTERO MD Exam Time: 2:32:00 PM Study Type:Physiologic Leg Age: 1001/16/1940,79Y Sex: MALE Sonogrphr: Priti Recinos RVT Pat. Stat.:Inpatient Room: [address] Tape Vol: RF,CPT - 4: 06159 Echo Event ID:[id number] Order ID: [id number] Reason for Study:Bilateral decreased pedal pulses. History of ESRD onHD via left AVFm CHFm AICD,aortic stenosis, cardiomyopathy, DMhypoxic respiratory failure, chronic trach, PAD.Procedures: Ankle/brachial pressures, Digit pressuresRace: B -----SUMMARY: ANKLE/BRACHIAL INDEX: RIGHT LEFT Brachial Artery Imfwrhzw299 mmHg AV-Fistula DP 0 mmHg 0 mmHg [...] FINDINGS: Signed 05/30/2019 09:50 PMMarcellus Yung MD, RPVIPort Penn MethodistUs duplex arterial upper [id number] 17:50:00Interface, Radiology Results In - 05/30/2019 5:50 PM [facility] Vascular Ultrasound Laboratory Upper Extremity Arterial Report [id number] [address]Umf.Name: GABBY PEREZ Pat.ID: [id number] .Date: 05/30/2019 Refer.MD: AD QUINTERO MD Exam Time: 3:21:00 PM Study Type:UE Arterial Age: 1001/16/1940,79Y Sex: MALE Sonogrphr: PAUL Herrera. Stat.:Inpatient Room: [address] Vol: RF, CPT - 4: [address]Aptz Event ID:[id number] Order ID: [id number] Reason for Study:Bilateral armpain and swelling. History [...] FINDINGS:- Signed 05/30/2019 05:50 Elizabeth Yung MD, RPVIHoufloating hospital for children [id number] 12:55:52 Test Item Value Reference Range Interpretation Comments LDH (test code = 84095-0) 267 U/L 87-225 H Lab Interpretation (test code = Abnormal 50465-9) [place] MethodistManual xmsueopdbfpx0865-18-17 06:07:32 Test Item Value Reference Range Interpretation Comments Manual differential (test code = PERFORMED 16523-7) Neutrophils (test code = 30980-0) 81.0 % 39-69 H Lymphocytes (test code = 53221-5) 10.0 % 25-45 L Monocytes (test code = 99162-9) 8.0 % 0-10 Eosinophils (test code = 76733-1) 1.0 % 0-5 Basophils (test code = 10247-4) 0.0 % 0-1 Metamyelocytes (test code = 740-1) 0 % Promyelocytes (test code = 783-1) 0 % Platelet slide review (test code = Decreased A 59703-9) Anisocytosis (test code = 702-1) Moderate Polychromasia (test code = Moderate 28033-9) Tear drop cells (test code = Occasional 7791-7) Trevor cells (test code = 7790-9) Moderate A Enlarged platelets (test code = Moderate A 45527-6) Lab Interpretation (test code = Abnormal 46570-8) [place] MethodistT4, [id number] 01:47:34 Test Item Value Reference Range Interpretation Comments T4, free (test code = 3024-7) 0.7 ng/dL 0.9-1.7 L Lab Interpretation (test code = Abnormal 74717-1) [place] MethodistThyroid stimulating [id number] 01:47:34 Test Item Value Reference Range Interpretation Comments TSH (test code = 3016-3) 0.63 0.27- 4.20 uIU/mL [place] MethodistUric acid [id number] 01:19:56 Test Item Value Reference Range Interpretation Comments Uric acid (test code = 3084-1) 4.5 mg/dL 3.4-7 [place] MethodistHepatitis B surface [id number] 16:11:47 Test Item Value Reference Range Interpretation Comments Hepatitis B surface Ag (test Non-reactive Non-reactive code = 5195-3) [facility] ChanceHemoglobin [id number] 10:29:18 Test Item Value Reference Range Interpretation Comments Hemoglobin A1C (test 6.5 % 4-5.6 H HbA1c c utoffs for code = 25348-9) diagnosing diabetes:4.0% - 5.6% = normal5.7% - 6.4% = increased risk for diabetes (prediabetes)9> =6.5% = [id number] s for glycemic contro l (ADA 2016)< 7.0% Ta rget for non adults with dwight betes. More or less stringent targe ts may be appropriate for individual lui ents. <7.5% Target for Children and adolescents wit h type 1 diabetes. Lab Interpretation (test Abnormal code = 33336-4) [facility]
[2019-11-28] MEDS ORDERED: ONDANSETRON 4 MG/2 ML VIAL ONE (18:25)
[2019-11-28 18:47] LABS: Absolute Lymphocytes (CBC) 2.2 K/uL (0.7-4.9); Hematocrit 37.3 % (39.6-49.0); Lymphocytes % 25.3 % (15.3-44.8); MPV 9.8 fL (7.6-11.3); RBC Red Blood Cell Count 4.06 M/uL (4.33-5.43)
--- NOTE | 2019-11-28 18:57 | RAD REPORT ---
EXAM DESCRIPTION: CT - Head Brain Wo Cont - 11/28/2019 6:31 pm CLINICAL HISTORY: Mental status change;Seizure Headache, drowsiness, seizure COMPARISON: Head Brain Wo Cont dated 11/19/2016; Head Brain Wo Cont dated 10/29/2016 TECHNIQUE: All CT scans are performed using dose optimization technique as appropriate and may inclu de automated exposure control or mA/KV adjustment according to patient size. FINDINGS: No intracranial hemorrhage, hydrocephalus or extra-axial fluid collection.Mild generalized brain atrophy.No areas of brain edema or evidence of midline shift. Polyposis in the region of the right maxillary antrum and right nasal cavity has diminished in size m ildly since comparative study. The paranasal sinuses and mastoids otherwise clear The calvarium is in tact. IMPRESSION: No acute intracranial abnormality.
--- NOTE | 2019-11-28 19:01 | RAD REPORT ---
EXAM DESCRIPTION: RAD - Chest Single View - 11/28/2019 6:39 pm CLINICAL HISTORY: DYSPNEA Chest pain. COMPARISON: Chest Pa And Lat (2 Views) dated 11/02/2019; Chest Single View dated 10/30/2019; Chest Sin gle View dated 05/27/2019; Chest Single View dated 05/25/2019 FINDINGS: Portable technique limits examination quality. The lungs are grossly clear. The heart is moderately enlarged in size with a multilead pacer/defibril lator device present. Tracheostomy tube is its tip above the jamia. IMPRESSION: No acute intrathoracic process suspected.
[2019-11-28 19:09] LABS: AST/SGOT 16 U/L (15-37); Albumin 2.6 g/dL (3.4-5.0); Alkaline Phosphatase 168 U/L (45-117); BUN Blood Urea Nitrogen 8 mg/dL (7-18); Bicarbonate 23 mmol/L (21-32); Bilirubin Direct 0.2 mg/dL (0-0.2); Bilirubin Total 0.6 mg/dL (0.2-1.0); Creatine Phosphokinase 29 U/L (39-308); Glucose Level 92 mg/dL (74-106); Lipase 126 U/L (73-393); Potassium 3.4 mmol/L (3.5-5.1); Protein, Total 8.8 g/dL (6.4-8.2); Sodium Level 137 mmol/L (136-145); Troponin (Emerg Dept Use Only) < 0.02 ng/mL (0.0-0.045)
[2019-11-28 19:18] LABS: ALT/SGPT < 6 U/L (12-78)
[2019-11-28 19:35] LABS: Protime INR 1.35
[2019-11-28] MEDS ORDERED: NA CHLORIDE 0.9% 500 ML ONE ×2 (19:54→22:01)
--- NOTE | 2019-11-28 21:47 | EDPHYS ---
Physician Documentation [facility] Name: Sergio Perez Age: 79 yrs Sex: Male : 1940 Arrival Date: 11/28/2019 Time: 17:47 Bed 17 Private MD: ED Physician Erich Mcmillan HPI: 11/27 20:31 This 79 yrs old Black Male presents to ER via EMS with complaints of General Weakness. jr8 20:31 Patient brought to ED via EMS after having dialysis completed. Stated that they took jr8 2.5 L off while at dialysis. Could not get home because he was so weak . Onset: The symptoms/episode began/occurred acutely, today. Severity of symptoms: At their worst the symptoms were moderate in the emergency department the symptoms are unchanged. The patient has not experienced similar symptoms in the past. The patient has not recently seen a physician. Historical: - Allergies: 18:38 Iodine; jl7 18:38 SHELLFISH; jl7 - PMHx: 18:38 Anemia; CHF; COPD; Diabetes - NIDDM; Dialysis; M-W-F; ESRD; GERD; Gout; Hypertension; jl7 Pacemaker; with defib; - Immunization history:: Adult Immunizations up to date. - Social history:: Smoking status: Patient denies any tobacco usage or history of. ROS: 20:31 Eyes: Negative for injury, pain, redness, and discharge, ENT: Negative for injury, jr8 pain, and discharge, Neck: Negative for injury, pain, and swelling, Cardiovascular: Negative for chest pain, palpitations, and edema, Respiratory: Negative for shortness of breath, cough, wheezing, and pleuritic chest pain, Abdomen/GI: Negative for abdominal pain, nausea, vomiting, diarrhea, and constipation, Back: Negative for injury and pain, MS/Extremity: Negative for injury and deformity, Skin: Negative for injury, rash, and discoloration. 20:31 Neuro: Positive for weakness. Exam: 20:31 Eyes: Pupils equal round and reactive to light, extra-ocular motions intact. Lids and jr8 lashes normal. Conjunctiva and sclera are non-icteric and not injected. Cornea within normal limits. Periorbital areas with no swelling, redness, or edema. ENT: Nares patent. No nasal discharge, no septal abnormalities noted. Tympanic membranes are normal and external auditory canals are clear. Oropharynx with no redness, swelling, or masses, exudates, or evidence of obstruction, uvula midline. Mucous membranes moist. Neck: Trachea midline, no thyromegaly or masses palpated, and no cervical lymphadenopathy. Supple, full range of motion without nuchal rigidity, or vertebral point tenderness. No Meningismus. Cardiovascular: Regular rate and rhythm with a normal S1 and S2. No gallops, murmurs, or rubs. Normal PMI, no JVD. No pulse deficits. Respiratory: Lungs have equal breath sounds bilaterally, clear to auscultation and percussion. No rales, rhonchi or wheezes noted. No increased work of breathing, no retractions or nasal flaring. Abdomen/GI: Soft, non-tender, with normal bowel sounds. No distension or tympany. No guarding or rebound. No evidence of tenderness throughout. Back: No spinal tenderness. No costovertebral tenderness. Full range of motion. Skin: Warm, dry with normal turgor. Normal color with no rashes, no lesions, and no evidence of cellulitis. MS/ Extremity: Pulses equal, no cyanosis. Neurovascular intact. Full, normal range of motion. Neuro: Awake and alert, GCS 15, oriented to person, place, time, and situation. Cranial nerves II-XII grossly intact. Motor strength 5/5 in all extremities. Sensory grossly intact. Cerebellar exam normal Vital Signs: 17:56 BP 81 / 54; Pulse 83; Resp 19 S; Temp 98.2(O); Pulse Ox 100% on 3 lpm NC; jl7 18:00 BP 97 / 50; Pulse 80; Resp 17 S; Pulse Ox 100% on 3 lpm NC; jl7 18:46 Weight 108.86 kg (R); jl7 19:00 BP 84 / 64; Pulse 80; Resp 19; Temp 98.0(TE); Pulse Ox 94% on 2 lpm NC; Pain 4/10; mt2 20:00 BP 104 / 63; Pulse 78; Resp 19; Pulse Ox 94% on 2 lpm NC; Pain 2/10; mt2 20:30 BP 113 / 63; Pulse 89; Pulse Ox 92% on NC; Pain 0/10; mt2 21:00 BP 97 / 48; Pulse 83; Resp 17; Pulse Ox 93% 2 lpm ; Pain 10/10; mt2 21:30 BP 66 / 51; Pulse 76; Resp 17; Pulse Ox 93% on 2 lpm NC; Pain 10/10; mt2 22:00 BP 99 / 75; Pulse 85; Resp 17; Pulse Ox 96% on R/A; Pain 10/10; mt2 23:00 BP 95 / 52; Pulse 83; Resp 17; Pulse Ox 96% on 2 lpm NC; Pain 0/10; mt2 18 00:00 BP 87 / 53; Pulse 81; Resp 17; Temp 98.0(TE); Pulse Ox 95% on 2 lpm NC; Pain 0/10; mt2 MDM: 11/27 18:03 Patient medically screened. 8 21:44 Data reviewed: vital signs, nurses notes, lab test result(s), EKG, radiologic studies, jr8 plain films. Data interpreted: Pulse oximetry: on room air is 100 %. Interpretation: normal. Counseling: I had a detailed discussion with the patient and/or guardian regarding: the historical points, exam findings, and any diagnostic results supporting the discharge/admit diagnosis, lab results, radiology results, the need for further work-up and treatment in the hospital. Physician consultation: A Martin CHOWDHURY was called at 21:45, left message to call back for admission . 11/27 18:06 Order name: Basic Metabolic Panel; Complete Time: 19:29 [email or web address] 11/27 18:06 Order name: Blood Culture Adult (2) [email or web address]] 11/27 18:06 Order name: CBC with Diff; Complete Time: 19:29 [email or web address] 11/27 18:06 Order name: CPK; Complete Time: 19:29 [email or web address] 11/27 18:06 Order name: Lactate; Complete Time: 19:29 [email or web address] 11/27 18:06 Order name: LFT's; Complete Time: 19:29 [email or web address] 11/27 18:06 Order name: Lipase; Complete Time: 19:29 [email or web address] 11/27 18:06 Order name: Procalcitonin; Complete Time: 20:27 [email or web address] 11/27 18:06 Order name: Protime (+inr); Complete Time: 20:27 [email or web address] 11/27 18:06 Order name: Ptt, Activated; Complete Time: 20:27 [email or web address] 11/27 18:06 Order name: Troponin (emerg Dept Use Only); Complete Time: 19:29 [email or web address]] 11/27 18:06 Order name: Urine Microscopic Only [email or web address]] 11/27 22:08 Order name: Lactate Sepsis 2 HR Follow-up; Complete Time: 22:33 EDMS 11/28 04:31 Order name: COVID-19 11/27 18:06 Order name: Chest Single View XRAY; Complete Time: 19:29 [email or web address]] 11/27 18:06 Order name: Accucheck; Complete Time: 22:43 [email or web address] 11/27 18:06 Order name: Cardiac monitoring; Complete Time: 22:39 [email or web address] 11/27 18:06 Order name: EKG - Nurse/Tech; Complete Time: 22:40 [email or web address] 11/27 18:06 Order name: IV Saline Lock - Large Bore; Complete Time: 22:39 [email or web address]] 11/27 18:06 Order name: CT Head Brain wo Cont; Complete Time: 19:29 [email or web address]] 11/27 23:03 Order name: CONS Physician Consult EDHI 11/28 08:07 Order name: Glucose, Ancillary Testing; Complete Time: 11:39 EDMS 11/28 09:45 Order name: CORONAVIRUS; Complete Time: 11:39 EDMS 11/28 12:27 Order name: Glucose, Ancillary Testing; Complete Time: 18:47 EDMS 11/27 18:06 Order name: Labs collected and sent; Complete Time: 22:39 [email or web address] 11/27 18:06 Order name: O2 Per Protocol; Complete Time: 22:39 [email or web address]] 11/27 18:06 Order name: O2 Sat Monitoring; Complete Time: 22:39 [email or web address]] Administered Medications: 18:30 Drug: Zofran (Ondansetron) 4 mg Route: IVP; Site: right hand; jl7 19:00 Follow up: Response: No adverse reaction; Nausea is decreased mt2 19:47 Not Given (renal pt): NS 0.9% (30 ml/kg) 30 ml/kg IV at bolus once; Sepsis Protocol mt2 19:48 Drug: NS 0.9% 500 ml Route: IV; Rate: bolus; Site: right hand; mt2 20:30 Follow up: BP 113 / 63; Pulse 89 bpm; Pulse Ox 92% Nasal Cannula; Pain 0/10 Adult; mt2 Response: No adverse reaction; Blood pressure is elevated; IV Status: Completed infusion 21:55 Drug: NS 0.9% 500 ml Route: IV; Rate: bolus; Site: right hand; mt2 22:43 Follow up: Response: No adverse reaction; Blood pressure is elevated; IV Status: mt2 Completed infusion 22:39 Drug: Griffin (7.5 mg-325 mg) 1 tabs Route: PO; mt2 23:00 Follow up: Response: No adverse reaction; Pain is decreased mt2 23:13 Drug: Cefepime 1 grams Route: IVPB; Rate: 200 ml/hr; Infused Over: 30 mins; Site: right mt2 hand; 11/28 00:00 Follow up: Response: No adverse reaction; IV Status: Completed infusion mt2 Disposition: 15:01 Co-signature as Attending Physician, Erich Mcmillan MD. rn Disposition: 11/28/19 21:46 Hospitalization ordered by Garcia Salazar for Inpatient Admission. Preliminary diagnosis are Syncope and collapse, Orthostatic hypotension. - Bed requested for Telemetry/MedSurg (Inpatient). - Status is Inpatient Admission. iw - Condition is Fair. - Problem is new. - Symptoms have improved. Signatures: Dispatcher [employer] EDErika Mcknight RN Chasidy Colby RN RN iw Nieto, Roman, MD MD rn Roszak, Josh, PA PA jr8 Pradip Mitchell, CUT OUT MARKER-C CUT OUT MARKER-Cla1 Nicole Way RN RN Kala Velázquez RN RN tw2 Ewelina Waite, SHAI RN jl7 Kelly Martinez, RN RN mt2 Corrections: (The following items were deleted from the chart) 11/27 23:35 21:46 Hospitalization Ordered by A Martin CHOWDHURY for Inpatient Admission. Preliminary cg diagnosis is Syncope and collapse; Orthostatic hypotension. Bed requested for Intensive Care Unit. Status is Inpatient Admission. Condition is Fair. Problem is new. Symptoms have improved. jr8 11/28 11:49 11/27 23:35 11/28/2019 21:46 Hospitalization Ordered by A Martin CHOWDHURY for Inpatient dw Admission. Preliminary diagnosis is Syncope and collapse; Orthostatic hypotension. Bed requested for [facility] ER HOLD. Status is Inpatient Admission. Condition is Fair. Problem is new. Symptoms have improved. cg 11/28 14:56 11:49 11/28/2019 21:46 Hospitalization Ordered by A Martin CHOWDHURY for Inpatient Admission. iw Preliminary diagnosis is Syncope and collapse; Orthostatic hypotension. Bed requested for Telemetry/MedSurg (Inpatient). Status is Inpatient Admission. Condition is Fair. Problem is new. Symptoms have improved. dw
--- NOTE | 2019-11-28 21:47 | ER ---
Nurse's Notes [facility] Name: Sergio Perez Age: 79 yrs Sex: Male : 1940 Arrival Date: 11/28/2019 Time: 17:47 Bed 17 Private MD: Diagnosis: Syncope and collapse;Orthostatic hypotension Presentation: 11/27 17:54 Chief complaint: EMS states: Pt completed dialysis, had 2.5 L off, was too weak post jl7 dialysis. Coronavirus screen: Client denies travel out of the [place] in the last 14 days. At this time, the client does not indicate any symptoms associated with coronavirus-19. Ebola Screen: No symptoms or risks identified at this time. 17:54 Method Of Arrival: EMS: [facility] 17:56 Initial Sepsis Screen: Does the patient meet any 2 criteria? No. Patient's initial jl7 sepsis screen is negative. Does the patient have a suspected source of infection? No. Patient's initial sepsis screen is negative. Risk Assessment: Do you want to hurt yourself or someone else? Patient reports no desire to harm self or others. Onset of symptoms was November 28, 2019. Care prior to arrival: None. Transition of care: patient was not received from another setting of care. 17:56 Acuity: KARLENE 2 jl7 Triage Assessment: 17:50 General: Appears uncomfortable, ill, Behavior is cooperative, anxious. Pain: Denies jl7 pain. Neuro: Level of Consciousness is awake, alert, obeys commands, Oriented to person, place, time, situation, Reports dizziness. Cardiovascular: Patient's skin is warm and dry. Respiratory: Airway is patent Respiratory effort is even, unlabored, Respiratory pattern is regular, symmetrical. GI: No signs and/or symptoms were reported involving the gastrointestinal system. : No signs and/or symptoms were reported regarding the genitourinary system. Derm: Skin is dry, Skin is normal, Skin temperature is warm. Historical: - Allergies: 18:38 Iodine; jl7 18:38 SHELLFISH; jl7 - PMHx: 18:38 Anemia; CHF; COPD; Diabetes - NIDDM; Dialysis; M-W-F; ESRD; GERD; Gout; Hypertension; jl7 Pacemaker; with defib; - Immunization history:: Adult Immunizations up to date. - Social history:: Smoking status: Patient denies any tobacco usage or history of. Screenin:44 Abuse screen: Denies threats or abuse. Denies injuries from another. Nutritional jl7 screening: No deficits noted. Tuberculosis screening: No symptoms or risk factors identified. Fall Risk IV access (20 points). Total Dodson Fall Scale indicates No Risk (0-24 pts). Assessment: 18:00 Reassessment: Pt's eyes noted to be rolled back and body appeared to have mild tremors jl7 for approximately 2 minutes. ERP at bedside. Pt vomited, reports dizziness and nausea. ERP gave new orders at this time. 19:00 Reassessment: Patient and/or family updated on plan of care and expected duration. Pain mt2 level reassessed. PT HYPOTENSIVE. PROVIDER AWARE. General: Appears uncomfortable, Behavior is cooperative. Pain: Complains of pain in right foot. Neuro: No deficits noted. Neuro: Reports dizziness. Cardiovascular: HUPOTENSIVE. Rhythm is sinus rhythm. Respiratory: No deficits noted. Respiratory: Trachea TRACH IS CAPPED. GI: Reports nausea. : PT DOES NOT VOID ON HEMODIALASYS. EENT: No deficits noted. Derm: WOUND VAC ON RIGHT TOES. Musculoskeletal: Reports. 20:00 Reassessment: Patient and/or family updated on plan of care and expected duration. Pain mt2 level reassessed. Patient is alert, oriented x 3, equal unlabored respirations, skin warm/dry/pink. Patient states symptoms have improved. Reassessment: PT B/P ELEVATED AFTER FLUID BOLUS. General: Appears comfortable, Behavior is cooperative. 21:00 Reassessment: Patient and/or family updated on plan of care and expected duration. Pain mt2 level reassessed. Patient is alert, oriented x 3, equal unlabored respirations, skin warm/dry/pink. PT B/P DECREASED AFTER SITTING UP. PROVIDER AWARE. WILL REBOLUS PT. General: Appears uncomfortable, Behavior is restless. Pain: Complains of pain in right foot. 22:00 Reassessment: Patient and/or family updated on plan of care and expected duration. Pain mt2 level reassessed. Patient is alert, oriented x 3, equal unlabored respirations, skin warm/dry/pink. PT C/O RIGHT FOOT PAIN AT INCISION SITE. ADMINISTERED NORCO PER PROVIDER. PT B/I INCREASED. General: Appears uncomfortable, Behavior is cooperative. Pain: Complains of pain in right foot Pain currently is 10 out of 10 on a pain scale. Quality of pain is described as aching. 23:00 Reassessment: Patient and/or family updated on plan of care and expected duration. Pain mt2 level reassessed. Patient is alert, oriented x 3, equal unlabored respirations, skin warm/dry/pink. General: Appears comfortable, Behavior is cooperative. Pain: Denies pain. 11/28 00:00 Reassessment: Patient and/or family updated on plan of care and expected duration. Pain mt2 level reassessed. Patient is alert, oriented x 3, equal unlabored respirations, skin warm/dry/pink. PATIENT ADMITTED AN ED HOLD. DEFER ALL CHARTING IN [facility] [facility] Patient denies pain at this time. 01:07 Reassessment: Thomas with pharmacy has called to verify the order for Cefepime, states sg that the order is correct according to documentation on [employer], will continue as ordered per Thomas. 13:26 Reassessment: Gave report to SHAI Bills. Information from the SBAR was given. All rb1 questions asked and answered. Vital Signs: 11/27 17:56 BP 81 / 54; Pulse 83; Resp 19 S; Temp 98.2(O); Pulse Ox 100% on 3 lpm NC; jl7 18:00 BP 97 / 50; Pulse 80; Resp 17 S; Pulse Ox 100% on 3 lpm NC; jl7 18:46 Weight 108.86 kg (R); jl7 19:00 BP 84 / 64; Pulse 80; Resp 19; Temp 98.0(TE); Pulse Ox 94% on 2 lpm NC; Pain 4/10; mt2 20:00 BP 104 / 63; Pulse 78; Resp 19; Pulse Ox 94% on 2 lpm NC; Pain 2/10; mt2 20:30 BP 113 / 63; Pulse 89; Pulse Ox 92% on NC; Pain 0/10; mt2 21:00 BP 97 / 48; Pulse 83; Resp 17; Pulse Ox 93% 2 lpm ; Pain 10/10; mt2 21:30 BP 66 / 51; Pulse 76; Resp 17; Pulse Ox 93% on 2 lpm NC; Pain 10/10; mt2 22:00 BP 99 / 75; Pulse 85; Resp 17; Pulse Ox 96% on R/A; Pain 10/10; mt2 23:00 BP 95 / 52; Pulse 83; Resp 17; Pulse Ox 96% on 2 lpm NC; Pain 0/10; mt2 11/28 00:00 BP 87 / 53; Pulse 81; Resp 17; Temp 98.0(TE); Pulse Ox 95% on 2 lpm NC; Pain 0/10; mt2 ED Course: 11/27 17:47 Patient arrived in ED. iw 17:50 Arm band placed on right wrist. jl7 17:50 Patient has correct armband on for positive identification. Placed in gown. Bed in low jl7 position. Call light in reach. Side rails up X2. equipment monitor phototypesetting on. Pulse ox on. NIBP on. Warm blanket given. 17:54 Ewelina Waite RN is Primary Nurse. jl7 18:03 Tom Dyson PA is PHCP. jr8 18:03 Erich Mcmillan MD is Attending Physician. jr8 18:11 Missed attempt(s): 22 gauge in right forearm. Bleeding controlled, band aid applied, tw2 catheter tip intact. Missed attempt(s): 22 gauge forearm. Bleeding controlled, band aid applied, catheter tip intact. 18:20 Initial lab(s) drawn, by de, sent to lab. First set of blood cultures drawn by me. jl7 Missed attempt(s): 22 gauge in right wrist. Bleeding controlled, band aid applied, catheter tip intact. 18:26 Inserted saline lock: 22 gauge in right hand, using aseptic technique. ,using aseptic tw2 technique. by SHAI Theodore Blood collected. 18:28 Second set of blood cultures drawn. jl7 18:31 CT Head Brain wo Cont In Process Unspecified. EDMS 18:35 Chest Single View XRAY In Process Unspecified. EDMS 18:38 Triage completed. jl7 21:45 Garcia Salazar MD is Hospitalizing Provider. jr8 11/28 00:00 No provider procedures requiring assistance completed. Patient admitted, IV remains in mt2 place. 14:46 No provider procedures requiring assistance completed. Patient admitted, IV remains in rb1 place. Administered Medications: 11/27 18:30 Drug: Zofran (Ondansetron) 4 mg Route: IVP; Site: right hand; jl7 19:00 Follow up: Response: No adverse reaction; Nausea is decreased mt2 19:47 Not Given (renal pt): NS 0.9% (30 ml/kg) 30 ml/kg IV at bolus once; Sepsis Protocol mt2 19:48 Drug: NS 0.9% 500 ml Route: IV; Rate: bolus; Site: right hand; mt2 20:30 Follow up: BP 113 / 63; Pulse 89 bpm; Pulse Ox 92% Nasal Cannula; Pain 0/10 Adult; mt2 Response: No adverse reaction; Blood pressure is elevated; IV Status: Completed infusion 21:55 Drug: NS 0.9% 500 ml Route: IV; Rate: bolus; Site: right hand; mt2 22:43 Follow up: Response: No adverse reaction; Blood pressure is elevated; IV Status: mt2 Completed infusion 22:39 Drug: Finley (7.5 mg-325 mg) 1 tabs Route: PO; mt2 23:00 Follow up: Response: No adverse reaction; Pain is decreased mt2 23:13 Drug: Cefepime 1 grams Route: IVPB; Rate: 200 ml/hr; Infused Over: 30 mins; Site: right mt2 hand; 11/28 00:00 Follow up: Response: No adverse reaction; IV Status: Completed infusion mt2 Outcome: 11/27 21:46 Decision to Hospitalize by Provider. jr8 11/28 00:00 Admitted to ER Hold. Please see [facility] for further documentation. mt2 Condition: stable Instructed on the need for admit. 14:46 Admitted to Med/surg accompanied by tech, via stretcher, room 216, with oxygen, with rb1 chart, Report called to SHAI Bills 14:46 Condition: stable 14:46 Instructed on the need for admit. 14:56 Patient left the ED. iw Signatures: Dispatcher [employer] EDMS Cliff Leigh RN RN sg Chasidy Mason RN RN iw Tom Dyson PA PA jr8 Priti Guevara RN RN rb1 Kala Velázquez RN RN tw2 Ewelina Waite RN RN jl7 Kelly Martinez RN RN mt2 Corrections: (The following items were deleted from the chart) 14:56 13:26 No provider procedures requiring assistance completed. rb1 rb1 14:56 13:26 Patient admitted, IV remains in place. rb1 rb1
[2019-11-28] MEDS ORDERED: HYDROCODONE/APAP 7.5/325 MG TAB ONE (22:39)
[2019-11-29] MEDS ORDERED: GLUCAGON 1 MG/VIAL IM PRN (00:53)
[2019-11-29] MEDS ORDERED: D50W 25 GM/50 ML SYRINGE/VIAL IV PRN (00:53)
[2019-11-29] MEDS ORDERED: NA CHLORIDE 0.9% 1,000 ML IV SCH (00:53)
[2019-11-29] MEDS ORDERED: ONDANSETRON 4 MG/2 ML VIAL IV PRN (00:53)
[2019-11-29] MEDS ORDERED: NA CHLORIDE 0.9% 1,000 ML ONE (01:00)
[2019-11-29 01:40] VITALS: BMI 33.2
[2019-11-29] MEDS ORDERED: ONDANSETRON 4 MG/2 ML VIAL ONE (05:41)
[2019-11-29] MEDS ORDERED: HYDROCODONE/APAP 7.5/325 MG TAB ONE (05:41)
[2019-11-29] MEDS ORDERED: HYDROCODONE/APAP 7.5/325 MG TAB PO ONE (05:53)
[2019-11-29] MEDS ORDERED: ONDANSETRON 4 MG/2 ML VIAL IV ONE (05:55)
[2019-11-29] MEDS ORDERED: ALBUTEROL 2.5 MG/3 ML NEB SOL NEB ONE (05:56)
[2019-11-29] MEDS ORDERED: IPRATROPIUM BROM 0.5MG/2.5ML NEB ONE (05:58)
[2019-11-29] MEDS ORDERED: ALBUTEROL 2.5 MG/3 ML NEB SOL ONE ×2 (06:14→13:48)
[2019-11-29] MEDS ORDERED: IPRATROPIUM BROM 0.5MG/2.5ML ONE ×2 (06:14→13:48)
[2019-11-29] MEDS: INSULIN -REGULAR HUMAN 50 UNIT/0.5 ML ML SQ SCH ×4 (07:30→21:00)
[2019-11-29] MEDS: IPRATROPIUM BROM 0.5MG/2.5ML NEB SCH ×3 (10:00→19:40)
[2019-11-29] MEDS: ALBUTEROL 2.5 MG/3 ML NEB SOL NEB SCH ×3 (10:00→19:40)
--- NOTE | 2019-11-29 12:10 | P.CNS ---
Date of Consult: 11/29/19 Reason for Consult: elevated Bun/Cr, fluid management Chief Complaint: weakness History of Present Illness: An 79-year-old AA man, with PMHx of ESRD on HD MWF and saturda at [facility], CHF S/P AICD, afib on Elqiuis, Aortic stenosis , COPD status post tracheostomy pt was admitted for generalized weakness pt had HD yesterday with 2.5 liter removal , pt was feeling weak, went home, pt was unable to stand today, he usually ambulate with walker denied, headache, blurry vision, change in speech Head Ct with no significant findings denied cheat pain, palpitation, nausea or vomiting Physical exam general: AAOX3, in pain , obese Neck; Supple, No elevated JVD , Tacheostomy hear: RRR, normal S1,2 no murmur or rub Chest: decreased air entry B/l , no rales or wheezes Abdomen: Soft , Nt Extremities trace edema A/P End-stage renal disease via lt AVF next HD tomorrow renal dose meds Anemia of chronic disease no need for Epogen HTN now hypotensive will resume midodrine will dc IVF generalized weakness PT/OT COPD cont inhalers Allergies iodine [Iodine] Allergy (Intermediate, Verified 11/02/19 14:43) Itching meperidine Allergy (Unknown, Verified 10/23/19 06:36) Anaphylaxis SHELLFISH Allergy (Uncoded 11/02/19 14:44) Itching Home Medications: Allopurinol 2 tab PO DAILY 10/23/19 Amiodarone HCl [Pacerone] 1 tab PO DAILY 10/23/19 Apixaban [Eliquis *] 1 tab PO BID 10/23/19 Aspirin [Adult Aspirin Regimen] 81 mg PO DAILY 10/23/19 Cetirizine HCl [Zyrtec*] 1 tab PO DAILY 10/23/19 Clotrimazole 1 kash TOP DAILY 10/23/19 Codeine/APAP [Tylenol #3*] 1 tab PO Q6H PRN 10/23/19 Docusate [Colace Cap*] 1 tab PO DAILY 10/23/19 Fluticasone [Flonase 50MCG Nasal [place]*] 1 spray KATHIE DAILY 10/23/19 Folic Acid/Vit B Complex and C [Renal-Kailash Tablet] 1 tab PO DAILY 10/23/19 Gabapentin [Neurontin*] 100 mg PO TID 10/23/19 Insulin Lispro See Protocol SQ AC 10/23/19 Ipratropium Neb [Atrovent*] 1 inhaler IH Q4H PRN 10/23/19 Isosorbide Mononitrate [Isosorbide Mononitrate ER] 1 tab PO DAILY 10/23/19 Midodrine HCl 1 tab PO BID 10/23/19 NPH, Human Insulin Isophane [Humulin N] 6 units SQ DAILY 10/23/19 Nitroglycerin 1 tab SL SEECOM PRN 10/23/19 Pantoprazole Sodium [Protonix] 1 tab PO BID 10/23/19 Sevelamer Carbonate 1 tab PO DAILY 10/23/19 Trazodone [Desyrel*] 1 tab PO BEDTIME PRN 10/23/19 predniSONE [Prednisone*] 1 tab PO DAILY 10/23/19 Ciprofloxacin HCl [Cipro 500 MG Tablet] 500 mg PO DAILY #12 tab 11/04/19 - Past Medical/Surgical History Diabetic: Yes -: Diabetes Mellitus -: COPD -: Hypertension -: PROSTATE CA -: ESRD -: DIALYSIS -: Diverticulitis -: dialysis: M, TU, TH, SA -: anemia -: sleep apnea -: gout -: oa -: trach 06/2002 -: HD graft - L upper arm -: pacemaker - Family History Brother Medical History: Hypertension Mother Medical History: Heart disease, Hypertension Sister Medical History: Cancer Notes: breast cancer - Social History Smoking Status: Unknown if ever smoked Alcohol use: No CD- Drugs: No Caffeine use: Yes Place of Residence: Home Physical Examination Temp Pulse Resp BP Pulse Ox 97.8 F 83 19 102/62 95 11/29/19 04:00 11/29/19 04:00 11/29/19 04:00 11/29/19 04:00 11/29/19 04:00 Laboratory Data (last 24 hrs) 11/28/19 19:15: PT 15.8 H, INR 1.35, APTT 39.3 H 11/28/19 18:28: WBC 8.7, Hgb 11.1 L, Hct 37.3 L, Plt Count 212 11/28/19 18:28: Sodium 137, Potassium 3.4 L, BUN 8, Creatinine 3.52 H, Glucose 92, Total Bilirubin 0.6, AST 16, ALT < 6 L, Alkaline Phosphatase 168 H, Lipase 126
--- NOTE | 2019-11-29 13:40 | CON ---
Date of Consultation: 11/29/2019 This patient was seen at ER. History Of Present Illness: Mr. Perez is an 79-year-old patient known by us since the patient come s [facility]. He did not come today since he was admitted to the hospital with multiple medical problems including generalized weakness. This patient has history of end-stage renal disease on hemodialysis, atrial fibrillation, aortic stenosis, COPD. From the surgical standp oint, we see the patient with bilateral foot open wounds. For details about the treatment we had don e in the last few months, please refer to the wound assessment sheet on [facility]. Past Surgical History: As above. Past Surgical History: Include history of tracheostomy, history of dialysis catheter, history of ane aman. Family History: Noncontributory. Allergies: REVIEWED. Medications: Reviewed. Review of Systems: As above. See the H and P. otherwise unremarkable. Physical Examination: General: The patient is awake and alert. Abdomen: Soft and depressible. No guarding or rebound. Extremities: Good capillary refill, although diminished pulses bilaterally and that is chronic on hi m. Integumentary: The patient has 2 wounds on the lateral aspect of the right foot. Patient has a long -standing wound, treated right now with the wound VAC. On the left foot, patient has history of nonh ealing wound left to close by secondary intention after having an emergent amputation of the toe due to gangrene. This area has been taken care of with dressing changes. Laboratory Data: Blood work shows WBC count of 8.7, hemoglobin 11.1, potassium 3.4, and creatinine i s 3.52. Once again this is a renal patient. Assessment: This is an 79-year-old patient with diabetic peripheral vascular disease, open wounds, b ilateral lower extremity. I discussed the case with the [facility]. We are going to gonzález nue with same orders that we have before and that includes left medial great toe calcium alginate, hy drocolloid 3 times a week. The wound VAC on both sides. We are trying to make a connection between the 2 wounds and use the wound VAC otherwise individually. That is the way we are going to continue at this moment. DONNA/PATRICK Voice ID: [id number] Report ID: [id number]
[2019-11-29] MEDS: MIDODRINE HCL 5 MG TABLET PO SCH (21:59)
[2019-11-29] MEDS ORDERED: CEFEPIME 1 GM/10 ML SYR IVP SCH (22:00)
[2019-11-29] MEDS ORDERED: CEFEPIME 1 GM/VIAL IV SCH (22:00)
[2019-11-29] MEDS: APIXABAN 2.5 MG TABLET PO SCH (22:00)
[2019-11-29] MEDS: HYDROCODONE/APAP 5/325 MG TAB PO PRN (22:16)
[2019-11-30] MEDS: IPRATROPIUM BROM 0.5MG/2.5ML NEB SCH ×4 (01:15→20:30)
[2019-11-30] MEDS: ALBUTEROL 2.5 MG/3 ML NEB SOL NEB SCH ×4 (01:15→20:30)
--- NOTE | 2019-11-30 01:34 | HP ---
Date of Admission: 11/29/2019 Chief Complaint: Feeling weak and fainting type of feeling. History Of Present Illness: This is an 79-year-old pleasant male patient with multiple comorbidities, who came into emergency room yesterday with these complaints. Yesterday, Home Health nurse contacted and informed office staff that she was concerned about the patient's overall health and considered about admission, and the patient was advised to come to emergency room, but he refused to do so. Later on, he started to have feeling of being weak, lightheaded, and felt like he was going to pass out and this started once he reached home after his dialysis and decided to come to emergency room. He did not have any syncopal episode. After he came to emergency room, he had another episode of vomiting. He has some pain in his foot, which is not any different than usual. After he was evaluated, he was admitted to the hospital. When I saw him, he was in the emergency room this morning. Allergies: IODINE, DEMEROL, SHELLFISH. Medications: List reviewed. Review of Systems: Cardiovascular: As mentioned above. Musculoskeletal: As mentioned above. Dermatologic: He has open wound on the right dorsal lateral foot aspect and he is under care of Dr. Guajardo for that. All other systems reviewed and negative. Social History: Negative for smoking or alcohol use. Family History: Significant for asthma, hypertension, breast cancer. Past Surgical History: AICD placement in 2014, tracheostomy placement many years ago. Past Medical History: End-stage renal disease on hemodialysis, COPD, chronic systolic congestive heart failure with reduced ejection fraction, anemia due to chronic kidney disease, type 2 diabetes mellitus, obstructive sleep apnea, allergic rhinitis, coronary artery disease, osteoarthritis at multiple sites, diverticulosis, cervical spondylosis with radiculopathy, gastroesophageal reflux disease, aortic stenosis, and right foot osteomyelitis. Physical Examination: Vital Signs: Temperature 97.8, pulse 83, respiratory rate 19, blood pressure 102/62, oxygen saturation 95%. Height 5 feet 11 inches, weight 238 pounds. General: Awake, alert, oriented, not in distress. HEENT: Head atraumatic, normocephalic. Conjunctivae nonerythematous. Sclerae white. Mouth, no thrush or edema noted. Ears/Nose, no mass, lesion, discharge noted. Neck: Presence of tracheostomy in the center of the lower part of the anterior neck. Lungs: Bilateral good equal air entry. Clear to auscultation. No rhonchi. No rales. Heart: Normal heart sounds. No murmur or gallop. Abdomen: Soft. Bowel sounds normal. No guarding, rigidity, tenderness, mass, hepatosplenomegaly, distention, or bruit noted. Extremities: Right foot exam, the patient has wound VAC present over right dorsal lateral foot wound. Surrounding skin appears normal in color, normal in temperature. No tenderness. Skin: No rash, ulcer, cellulitis. Lymphatics: No lymph node enlargement in neck, supraclavicular, infraclavicular region. Neuro: No focal neurological deficit. Chest: Unremarkable. External Genitalia: Deferred. Rectal: Deferred. Laboratory Data: White count 8.7, hemoglobin 11.1, platelets 212. Sodium 137, potassium 3.4, glucose 92. Lactic acid 3.3. Procalcitonin 0.8. Troponin less than 0.02. CAT scan of the head, no acute intracranial changes. Chest x-ray, no acute intrathoracic changes. Impression: 1. Near syncope. 2. Right foot wound. 3. End-stage renal disease, on hemodialysis. 4. Anemia due to chronic kidney disease. 5. Coronary artery disease. 6. Chronic obstructive pulmonary disease. 7. Chronic systolic congestive heart failure. 8. Osteoarthritis, multiple sites. 9. Type 2 diabetes mellitus. 10. Diverticulosis. Plan: Admit the patient to hospital for further evaluation and management of this problem. The patient is appropriate for inpatient and is expected to spend 2 midnights in hospital. We will consult real estate portfolio manager and also consult Dr. Guajardo. He is on empiric antibiotic. We will continue that. We will also continue IV fluid, which was started in emergency room. Home medications will be continued per order. I will see him tomorrow for followup. We will go ahead and give nebulizer treatment per order. Continue Eliquis. Details and plan of treatment discussed with the patient. ODESSA/MODL Voice ID: [id number] MTDD
[2019-11-30 05:33] LABS: Absolute Lymphocytes (CBC) 0.6 K/uL (0.7-4.9); Basophils % 0.8 % (0-1.3); Hematocrit 30.3 % (39.6-49.0); Lymphocytes % 9.6 % (15.3-44.8); MPV 9.7 fL (7.6-11.3); RBC Red Blood Cell Count 3.34 M/uL (4.33-5.43)
[2019-11-30 05:59] LABS: Potassium 3.6 mmol/L (3.5-5.1)
[2019-11-30] MEDS: INSULIN -REGULAR HUMAN 50 UNIT/0.5 ML ML SQ SCH ×4 (07:30→21:00)
--- NOTE | 2019-11-30 07:42 | EKG ---
Test Date: 2019-11-28 Test Time: 18:07:08 Passenger Locomotive Engineer: JUDE MEASUREMENT RESULTS: Intervals: Rate: 94 [place]: 154 QRSD: 156 QT: 462 QTc: 577 [place]: P: 50 AZ: 154 QRS: -76 T: 74 INTERPRETIVE STATEMENTS: Sinus rhythm with occasional premature ventricular complexes and premature atrial complexes Left axis deviation Nonspecific intraventricular block Possible Lateral infarct, age undetermined Abnormal ECG Compared to ECG 11/02/2019 14:03:59 Atrial premature complex(es) now present Ventricular premature complex(es) now present Left-axis deviation now present Myocardial infarct finding now present Ventricular-paced complex(es) or rhythm no longer present Atrial-sensed ventricular-paced complex(es) or rhythm no longer present Electronically Signed On 11-30-19 07:40:03 CDT by Bhupendra Samson
[2019-11-30] MEDS: HYDROCODONE/APAP 5/325 MG TAB PO PRN ×2 (08:21→18:18)
[2019-11-30] MEDS: APIXABAN 2.5 MG TABLET PO SCH ×2 (08:22→21:04)
[2019-11-30] MEDS: MIDODRINE HCL 5 MG TABLET PO SCH ×2 (08:22→21:04)
--- NOTE | 2019-11-30 09:41 | PN ---
Date of Progress Note: 11/30/2019 Diagnosis: Bilateral lower extremity diabetic foot ulcers. Subjective: The patient is admitted for medical reasons. No shortness of breath. No chest pain. Objective: Extremities: Still have a wound VAC in place. Plan: We wrote yesterday orders for his wound care, is kind of specific and to each foot. So we isis l use that for the help of the [facility]. Hopefully, we can continue the dressing changes at this moment when he gets discharged with followup at the [facility]. DONNA/PATRICK Voice ID: [id number] Report ID: [id number]
[2019-11-30] MEDS ORDERED: EPOETIN ALFA 10,000 UNIT/ML VIAL IV SCH (11:30)
--- NOTE | 2019-11-30 11:46 | PN ---
Date of Progress Note: 11/30/2019 Subjective: The patient was admitted with presyncope. The patient had wound infection. Objective: Vital Signs: Blood pressure 105/48, pulse of 79, afebrile. Chest: Faint rales on the left base. Heart: S1, S2 regular. Abdomen: Soft, nontender. Extremities: Trace edema. Dressing on the leg. Neurologic: Alert and oriented x3. Nonfocal. The patient had a tracheostomy. Laboratory Data: WBC 6.7, H and H 9.2/30.3, platelets 129. Sodium 136, potassium 3.6, bicarb 25, BUN 17, creatinine 5.3, calcium of 8. Current Medications: The patient is on include midodrine, breathing treatment, Eliquis, insulin, hydrocodone. Assessment And Plan: 1. End-stage renal disease, slightly on the wet side. We will dialyze the patient and we will follow up. 2. Hypotension. Continue midodrine. 3. The patient is going to be dialyzed on sodium module and low temperature. 4. Foot infection. Continue current antibiotic. Follow up with Surgery and primary. 5. Chronic obstructive pulmonary disease, as by primary. 6. Presyncope, secondary to anemia. I am going to resume for the patient JAIRO and we will monitor H and H. 7. Hypokalemia. The patient is going to be dialyzed on high potassium bath. Time spend for patient Care face to face , ordering and discussing the plan of care with staff 35 min GERI Voice ID: [id number] Report ID: [id number] ABEL
[2019-11-30] MEDS ORDERED: COLLAGENASE 30 GM OINTMENT TOP SCH (17:00)
[2019-11-30] MEDS ORDERED: MIDODRINE HCL 5 MG TABLET PO PRN (21:16)
[2019-11-30] MEDS: CEFEPIME/SWI 1gm 10 ML IV SCH (22:00)
[2019-11-30] MEDS ORDERED: ALBUMIN HUMAN 25% 50 ML IV SCH (22:00)
--- NOTE | 2019-11-30 23:05 | PN ---
Date of Progress Note: 11/30/2019 Subjective: The patient was seen this morning for followup. No new complaints or problems reported by patient, lying in bed, not in any distress. Objective: HEENT: Unremarkable. LUNGS: Clear to auscultation. HEART: Sounds normal. ABDOMEN: Soft. Bowel sounds normal. No guarding, rigidity, tenderness, or distention. EXTREMITIES: No leg edema. Laboratory Data: White count 6.7, hemoglobin 9.2, and platelet count of 129 today. Sodium 136, pota ssium 3.6, chloride 102, bicarb 25, BUN 17, creatinine 5.39, glucose 74. Impression: 1.Near syncope. 2.End-stage renal disease, on hemodialysis. 3.Anemia, due to chronic kidney disease. 4.Thrombocytopenia. Plan: We will go ahead and continue current medications. The patient is due to have dialysis today depending on what time he gets done with the dialysis today. We will decide if we can discharge him to go home later today if not maybe tomorrow. Details and plan of treatment discussed with the evangelina espinosa. ODESSA/MODL Voice ID: [id number] Report ID: [id number]
[2019-12-01] MEDS: HYDROCODONE/APAP 5/325 MG TAB PO PRN ×2 (00:29→08:28)
[2019-12-01] MEDS: ALBUTEROL 2.5 MG/3 ML NEB SOL NEB SCH ×3 (02:00→13:19)
[2019-12-01] MEDS: IPRATROPIUM BROM 0.5MG/2.5ML NEB SCH ×3 (02:00→13:19)
[2019-12-01] MEDS: CEFEPIME/SWI 1gm 10 ML IV SCH (02:13)
[2019-12-01] MEDS: INSULIN -REGULAR HUMAN 50 UNIT/0.5 ML ML SQ SCH ×2 (07:30→11:30)
[2019-12-01] MEDS: MIDODRINE HCL 5 MG TABLET PO SCH (08:28)
[2019-12-01] MEDS: APIXABAN 2.5 MG TABLET PO SCH (08:28)
[2019-12-01] MEDS ORDERED: ONDANSETRON 4 MG (ODT) TAB PO ONE (09:16)
[2019-12-01] MEDS ORDERED: DOCUSATE NA 100 MG CAP PO ONE (09:16)
[2019-12-01 11:09] VITALS: O2SAT 95
[2019-12-01 13:38] VITALS: BP 105/56; TEMP 97.4
--- NOTE | 2019-12-01 13:42 | PN ---
Date of Progress Note: 12/01/2019 Subjective: The patient was admitted with foot infection. The patient being evaluated by Dr. Guajardo. The patient is still complaining from nausea. No vomiting. Physical Examination: Vital Signs: Blood pressure of 96/53, pulse of 99, afebrile. Chest: Crackles at bilateral bases. Heart: S1, S2. Regular. Abdomen: Soft, nontender. Extremities: Dressing on the foot. Neurologic: Alert and oriented x3. Nonfocal. The patient had tracheostomy. Laboratory Data: WBC 6.7, H and H 9.2/30.3, platelet 129. Sodium 136, potassium 3.6, bicarb 25, BUN 17, creatinine 5.3, calcium of 8. Current Medications: The patient on include; 1. Midodrine. 2. Albuterol. 3. Epogen. 4. Zofran. 5. Docusate. 6. Hydrocodone. Assessment And Plan: 1. End-stage renal disease, stable, normal volume. I am going to go ahead and arrange for dialysis tomorrow if the patient stays in the hospital. 2. Hypertension, currently hypotension. The patient dependent on midodrine. We will continue. 3. Anemia of chronic kidney disease. Continue JAIRO. 4. Chronic obstructive pulmonary disease as by primary. 5. Foot infection. Continue to follow up with Wound Care. time 35 min discussing [facility] patient and arrange treatment with the staff GERI Voice ID: [id number] Report ID: [id number] ABEL
--- NOTE | 2019-12-02 10:10 | DS ---
Date of Discharge: 12/01/2019 Subjective: The patient was seen this morning for followup. No new complaints or problems reported. Objective: Vital Signs: Reviewed. HEENT: Unremarkable. Lungs: Clear to auscultation. Heart: Sounds normal. Abdomen: Soft. Bowel sounds normal. No guarding, rigidity, tenderness, distention. Extremities: No leg edema. Laboratory Data: Upon admission on 11/28/2019, white count 8.7, hemoglobin 11.1, platelets 212. Yes terday, white count 6.7, hemoglobin 9.2, platelets 121. On 11/30/2019, sodium 136, potassium 3.6, ch loride 102, bicarb 25, BUN 17, creatinine 5.39. Hospital Course: Mr. Perez is an 79-year-old very pleasant male patient, came into emergency room with complaints of feeling weak and fainting type of feeling. Please see dictated H and P for more i nformation. The patient was admitted to the hospital with near syncope. Chest x-ray did not show an y acute changes. His cardiac enzymes were negative. CAT scan of the head was negative for any acute intracranial changes. The patient was seen in consultation by Dr. Guajardo and Dr. Dennison. He re ceived dialysis per melter operator. He gets midodrine as per melter operator for his low blood pressure p roblem and he was advised to continue to take that regularly as prescribed. He was given empiric ant ibiotics. There was no evidence of any concern on the foot wound as Dr. Guajardo evaluated and he ad vised for the patient to continue the wound care dressing changes and wound VAC and he will continue to [facility]. Overall, his condition otherwise remained stable and he was discharged to go home with instruction to continue all prior home medications and follow u p with me in about 1 to 2 weeks. Final Diagnoses: 1.Near syncope. 2.End-stage renal disease, on hemodialysis. 3.Anemia due to chronic kidney disease. 4.Coronary artery disease. 5.Chronic obstructive pulmonary disease. 6.Chronic systolic congestive heart failure. 7.Type 2 diabetes mellitus. 8.Osteoarthritis, multiple sites. 9.Diverticulosis. ODESSA/MODL Voice ID: [id number] Report ID: [id number]
== END 2019-12-01 14:41 | disposition home health service (06) | DRG 699 ==
LOC: ER 17:46 → ERHOLD 23:02 → 2ND 11-29 13:32
PROVIDERS: ADMIT Internal Medicine; ATTEND Internal Medicine
PROC: 5A1D70Z Performance of Urinary Filtration, Intermittent, Less than 6 Hours Per Day (ICD-10-PCS; principal; 2019-11-30)
DX: E11.22 Type 2 diabetes mellitus with diabetic chronic kidney disease (principal); I13.2 Hypertensive heart and chronic kidney disease with heart failure and with stage 5 chronic kidney disease, or end stage renal disease; I50.22 Chronic systolic (congestive) heart failure; M00.872 Arthritis due to other bacteria, left ankle and foot; M00.871 Arthritis due to other bacteria, right ankle and foot; N18.6 End stage renal disease; D63.1 Anemia in chronic kidney disease; I95.1 Orthostatic hypotension; J44.9 Chronic obstructive pulmonary disease, unspecified; Z99.2 Dependence on renal dialysis; Z79.4 Long term (current) use of insulin; I25.10 Atherosclerotic heart disease of native coronary artery without angina pectoris; K21.9 Gastro-esophageal reflux disease without esophagitis; I35.0 Nonrheumatic aortic (valve) stenosis; I48.91 Unspecified atrial fibrillation; M10.9 Gout, unspecified; M19.90 Unspecified osteoarthritis, unspecified site; Z79.01 Long term (current) use of anticoagulants; Z80.3 Family history of malignant neoplasm of breast; Z82.49 Family history of ischemic heart disease and other diseases of the circulatory system; Z85.3 Personal history of malignant neoplasm of breast; Z95.810 Presence of automatic (implantable) cardiac defibrillator; Z93.0 Tracheostomy status; Z11.59 Encounter for screening for other viral diseases
CPT/HCPCS: 36415; 70450; 71045; 80048; 80076; 82550; 82947; 83605; 83690; 84145; 84484; 85025; 85610; 85730; 87040; 90935; 93005; 96361; 96365; 96375; 99285; J0692; J1644; J2405; J3590; J7030; J7040; P9047; U0002

== ENCOUNTER 2019-12-30 17:46 | Inpatient (IN) | payer OTHER, MEDICARE ==
--- OUTSIDE RECORDS SUMMARY | 2019-12-30 17:50 | XMS REPORT | Clinical Summary ---
:1940 Author Organization [facility] Address [address] [place] [address] Care Team Providers Name Role Phone Aaron [...] 81 MG enteric mouth daily. coated tablet apixaban (Eliquis) Take 1 tablet 180 tablet 3 Active 2.5 mg tablet (2.5 mg total) 0 by mouth 2 (two) times a day. metoprolol Take 1 tablet 180 tablet 3 12/16/19 Acti ve tartrate (25 mg total) by 0 21 (LOPRESSOR) 25 mg mouth 2 (two) tablet times a day. ALLOPURINOL ORAL Take 200 mg by 0 02/27/20 Discontinued mouth daily. 20 (Stop T aking [...] ondansetron ODT Take 1 tablet (4 0 //2 0 (ZOFRAN-ODT) 4 MG mg total) by [...] fexofenadine Take 1 tablet 30 tablet 0 02/28/202 03/29/20 Exp ired (DRAKE) 60 MG (60 mg total) by 0 20 tablet mouth daily for 30 days. Active Problems Problem Noted Date Influenza A (H1N1) 06/07/2019 ESRD (end stage renal disease) 05/31/2019 Critical aortic valve stenosis 05/29/2019 Unstable angina 07/22/2017 Overview: Added automatically from request for saud morenita [id number] Coronary artery disease involving kasaan coronary aarti ry of kasaan heart 07/22/2017 without angina pectoris Overview: Added automatically from request for saud morenita [id number] Chest pain 07/22/2017 Overview: Added automatically from request for saud morenita [id number] Angina pectoris 07/21/2017 Coronary artery disease of kas[place] artery of [place] hea rt with stable 07/21/2017 angina pectoris 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 03/10/2017 PAD (peripheral artery disease) 08/05/2016 Cardiomyopathy 08/05/2016 Systolic congestive heart failure 08/05/2016 Encounters Date Type Specialty Care Team Description 12/16/2019 Orders Only Cardiology Lesley Topete MA 12/16/2019 Refill Cardiology Mandeep Marin Refkiley Levy MA 06/01/2019 [facility] Procedural Gray Mann S., Congestive h eart Encounter Cardiology PhD failure, unspec ified HF chronicity, unspecified hea rt failure type (H CC) 06/01/2019 [facility] Procedural Gray Mann S., Congestive h eart Encounter Cardiology PhD failure, unspec ified HF chronicity, unspecified hea rt failure type (H CC) 05/28/2019 - [facility] Influenza A (H 1N1) 06/09/2019 Encounter Medicine MD Susan (Primary Dx) Trey Norman MD 05/26/2019 Intake Access 03/08/2019 Office Visit Cardiology [facility] Dilated cardiom yopathy (HCC) (Primary Dx); MD Susan Coronary artery disease involving kasaan coronary artery of kasaan heart without angina pectoris after 12/29/2018 Family History Relation Name Status Comments Father [...] Comments Blood Pressure 131/59 06/09/2019 6:00 PM [employer] Pulse 86 06/09/2019 7:30 PM [employer] Temperature 36.7 C (98 F) 06/09/2019 5:00 PM [employer] Respiratory Rate 22 06/09/2019 7:30 PM [employer] Oxygen Saturation 100% 06/09/2019 7:16 PM [employer] Inhaled Oxygen Concentration - - Weight 124 kg (274 lb 7.6 oz) 06/09/2019 6:00 AM [employer] Height 180.3 cm (5' 11") 05/28/2019 9:15 AM [employer] Body Mass Index 38.28 05/28/2019 9:15 AM [employer] Plan of Treatment Health Maintenance Due Date Last Done Comments DIABETIC RETINAL EYE EXAM 1940 DIABETIC FOOT EXAM 01/12/1950 URINE MICROALBUMIN 01/12/1949 SHINGLES VACCINES (#1) 01/12/1989 65+ PNEUMOCOCCAL VACCINE (1 of 2 - PCV13) 01/13/2004 INFLUENZA VACCINE 12/13/2019 Implants Implanted Type Area Professor Criminal Justice Device Shelf Model / Identifier Expiration Serial / Date Lot Device Vasclr Clsr Vasoactive Intstnl Peptd 8fr Angio- Seal - [id number] Cardiovascular N/A: 06/10/2017 [id number] / Implanted: 08/07/2016 at [facility] (Quantity not on file) Implants N/A / [id number] Stent Bili Protege Everflex Slf-Xpndbl 120cm [id number] - [id number] Coronary Stents N/A: [employer] 05/03/2017 [id number] 12 0 / Implanted: 08/07/2016 at [facility] (Quantity not on file) N/A / [id number] Procedures Procedure Name Priority Date/Time Associated Comments Diagnosis POC GLUCOSE Routine 06/09/2019 4:35 Results for this PM [employer] procedure are i n the results section. POC GLUCOSE Routine 06/09/2019 12:23 Results for this PM [employer] procedure are i n the results section. POC GLUCOSE Routine 06/09/2019 11:19 Results for this AM [employer] procedure are i n the results section. POC GLUCOSE Routine 06/09/2019 8:08 Results for this AM [employer] procedure are i n the results section. POC GLUCOSE Routine 06/09/2019 5:00 Results for this AM [employer] procedure are i n the results section. HC COMPLETE BLD COUNT Routine 06/09/2019 4:45 Re sults for this W/AUTO DIFF AM [employer] procedure are i n the results section. PARTIAL THROMBOPLASTIN Routine 06/09/2019 4:45 R esults for this TIME (PTT) AM [employer] procedure are i n the results section. POC GLUCOSE Routine 06/09/2019 2:07 Results for this AM [employer] procedure are i n the results section. POC GLUCOSE Routine 06/08/2019 8:30 Results for this PM [employer] procedure are i n the results section. POC GLUCOSE Routine 06/08/2019 5:13 Results for this PM [employer] procedure are i n the results section. HEMODIALYSIS Routine 06/08/2019 3:06 PM [employer] XR CHEST 1 VW PORTABLE Routine 06/08/2019 12:32 R esults for this PM [employer] procedure are i n the results section. POC GLUCOSE Routine 06/08/2019 12:07 Results for this PM [employer] procedure are i n the results section. POC GLUCOSE Routine 06/08/2019 7:38 Results for this AM [employer] procedure are i n the results section. ESTIMATED GFR Routine 06/08/2019 5:50 Results fo r this AM [employer] procedure are i n the results section. PHOSPHORUS LEVEL Routine 06/08/2019 5:50 Results for this AM [employer] procedure are i n the results section. MAGNESIUM LEVEL Routine 06/08/2019 5:50 Results for this AM [employer] procedure are i n the results section. BASIC METABOLIC PANEL Routine 06/08/2019 5:50 Re sults for this AM [employer] procedure are i n the results section. HC COMPLETE BLD COUNT Routine 06/08/2019 5:50 Re sults for this W/AUTO DIFF AM [employer] procedure are i n the results section. PARTIAL THROMBOPLASTIN Routine 06/08/2019 5:50 R esults for this TIME (PTT) AM [employer] procedure are i n the results section. POC GLUCOSE Routine 06/08/2019 4:26 Results for this AM [employer] procedure are i n the results section. POC GLUCOSE Routine 06/08/2019 12:18 Results for this AM [employer] procedure are i n the results section. POC GLUCOSE Routine 06/07/2019 8:16 Results for this PM [employer] procedure are i n the results section. POC GLUCOSE Routine 06/07/2019 4:22 Results for this PM [employer] procedure are i n the results section. POC GLUCOSE Routine 06/07/2019 3:50 Results for this PM [employer] procedure are i n the results section. POC GLUCOSE Routine 06/07/2019 11:39 Results for this AM [employer] procedure are i n the results section. ARTERIAL BLOOD GAS Routine 06/07/2019 11:34 Resul ts for this AM [employer] procedure are i n the results section. HEMODIALYSIS Routine 06/07/2019 10:44 AM [employer]OPER POC GLUCOSE Routine 06/07/2019 7:42 Results for this AM [employer] procedure are i n the results section. US DUPLEX VENOUS LOWER Routine 06/07/2019 6:20 R esults for this EXTREMITY BILATERAL AM [employer] procedur e are in the results section. POC GLUCOSE Routine 06/07/2019 4:27 Results for this AM [employer] procedure are i n the results section. CBC HEMOGRAM Routine 06/07/2019 3:50 Results for this AM [employer] procedure are i n the results section. PARTIAL THROMBOPLASTIN Routine 06/07/2019 3:50 R esults for this TIME (PTT) AM [employer] procedure are i n the results section. POC GLUCOSE Routine 06/07/2019 12:19 Results for this AM [employer] procedure are i n the results section. POC GLUCOSE Routine 06/06/2019 8:19 Results for this PM [employer] procedure are i n the results section. POC GLUCOSE Routine 06/06/2019 6:13 Results for this PM [employer] procedure are i n the results section. OCCULT BLOOD, STOOL Routine 06/06/2019 5:50 Resu lts for this PM [employer] procedure are i n the results section. POC GLUCOSE Routine 06/06/2019 2:46 Results for this PM [employer] procedure are i n the results section. POC GLUCOSE Routine 06/06/2019 12:21 Results for this PM [employer] procedure are i n the results section. POC GLUCOSE Routine 06/06/2019 8:00 Results for this AM [employer] procedure are i n the results section. POC GLUCOSE Routine 06/06/2019 4:29 Results for this AM [employer] procedure are i n the results section. ESTIMATED GFR Routine 06/06/2019 3:35 Results fo r this AM [employer] procedure are i n the results section. PARTIAL THROMBOPLASTIN Routine 06/06/2019 3:35 R esults for this TIME (PTT) AM [employer] procedure are i n the results section. COMPREHENSIVE METABOLIC Routine 06/06/2019 3:35 Results for this PANEL AM [employer] procedure are i n the results section. PHOSPHORUS LEVEL Routine 06/06/2019 3:35 Results for this AM [employer] procedure are i n the results section. MAGNESIUM LEVEL Routine 06/06/2019 3:35 Results for this AM [employer] procedure are i n the results section. HC COMPLETE BLD COUNT Routine 06/06/2019 3:35 Re sults for this W/AUTO DIFF AM [employer] procedure are i n the results section. POC GLUCOSE Routine 06/06/2019 12:25 Results for this AM [employer] procedure are i n the results section. ARTERIAL BLOOD GAS STAT 06/05/2019 9:42 Resul ts for this PM [employer] procedure are i n the results section. POC GLUCOSE Routine 06/05/2019 8:16 Results for this PM [employer] procedure are i n the results section. POC GLUCOSE Routine 06/05/2019 5:20 Results for this PM [employer]EL[employer] procedure are i n the results section. POC GLUCOSE Routine 06/05/2019 4:15 Results for this PM [employer] procedure are i n the results section. POC GLUCOSE Routine 06/05/2019 12:10 Results for this PM [employer] procedure are i n the results section. XR CHEST 1 VW PORTABLE Routine 06/05/2019 8:59 R esults for this AM [employer] procedure are i n the results section. POC GLUCOSE Routine 06/05/2019 8:18 Results for this AM [employer] procedure are i n the results section. ESTIMATED GFR Routine 06/05/2019 4:20 Results fo r this AM [employer] procedure are i n the results section. PARTIAL THROMBOPLASTIN Routine 06/05/2019 4:20 R esults for this TIME (PTT) AM [employer] procedure are i n the results section. COMPREHENSIVE METABOLIC Routine 06/05/2019 4:20 Results for this PANEL AM [employer] procedure are i n the results section. PHOSPHORUS LEVEL Routine 06/05/2019 4:20 Results for this AM [employer] procedure are i n the results section. MAGNESIUM LEVEL Routine 06/05/2019 4:20 Results for this AM [employer] procedure are i n the results section. HC COMPLETE BLD COUNT Routine 06/05/2019 4:20 Re sults for this W/AUTO DIFF AM [employer] procedure are i n the results section. POC GLUCOSE Routine 06/05/2019 4:18 Results for this AM [employer] procedure are i n the results section. POC GLUCOSE Routine 06/05/2019 12:57 Results for this AM [employer] procedure are i n the results section. TRANSFUSE RED BLOOD Routine 06/04/2019 10:32 CELLS PM [employer] TRANSFUSE RED BLOOD Routine 06/04/2019 9:21 CELLS PM [employer] POC GLUCOSE Routine 06/04/2019 8:57 Results for this PM [employer] procedure are i n the results section. POC GLUCOSE Routine 06/04/2019 4:48 Results for this PM [employer] procedure are i n the results section. PARTIAL THROMBOPLASTIN Timed 06/04/2019 3:15 R esults for this TIME (PTT) PM [employer] procedure are i n the results section. POC GLUCOSE Routine 06/04/2019 12:13 Results for this PM [employer] procedure are i n the results section. XR CHEST 1 VW PORTABLE Routine 06/04/2019 10:45 R esults for this AM [employer] procedure are i n the results section. CBC HEMOGRAM Routine 06/04/2019 8:44 Results for this AM [employer] procedure are i n the results section. POC GLUCOSE Routine 06/04/2019 7:39 Results for this AM [employer] procedure are i n the results section. HEMODIALYSIS Routine 06/04/2019 7:32 AM [employer]OPER SMEAR REVIEW Routine 06/04/2019 5:50 Results for this AM [employer] procedure are i n the results section. ESTIMATED GFR Routine 06/04/2019 5:50 Results fo r this AM [employer] procedure are i n the results section. PARTIAL THROMBOPLASTIN Routine 06/04/2019 5:50 R esults for this TIME (PTT) AM [employer] procedure are i n the results section. COMPREHENSIVE METABOLIC Routine 06/04/2019 5:50 Results for this PANEL AM [employer] procedure are i n the results section. PHOSPHORUS LEVEL Routine 06/04/2019 5:50 Results for this AM [employer] procedure are i n the results section. MAGNESIUM LEVEL Routine 06/04/2019 5:50 Results for this AM [employer] procedure are i n the results section. HC COMPLETE BLD COUNT Routine 06/04/2019 5:50 Re sults for this W/AUTO DIFF AM [employer] procedure are i n the results section. POC GLUCOSE Routine 06/04/2019 4:19 Results for this AM [employer] procedure are i n the results section. POC GLUCOSE Routine 06/04/2019 12:27 Results for this AM [employer] procedure are i n the results section. ANTI XA, UNFRACTIONATED Routine 06/03/2019 11:20 Results for this PM [employer] procedure are i n the results section. CBC HEMOGRAM Routine 06/03/2019 11:20 Results for this PM [employer] procedure are i n the results section. PARTIAL THROMBOPLASTIN Routine 06/03/2019 11:20 R esults for this TIME (PTT) PM [employer] procedure are i n the results section. PROTHROMBIN TIME WITH Routine 06/03/2019 11:20 Re sults for this INR PM [employer] procedure are i n the results section. POC GLUCOSE Routine 06/03/2019 8:05 Results for this PM [employer] procedure are i n the results section. CT ANGIOGRAM PE CHEST STAT 06/03/2019 7:51 Re sults for this PM [employer] procedure are i n the results section. POC GLUCOSE Routine 06/03/2019 4:44 Results for this PM [employer] procedure are i n the results section. ECG 12-LEAD STAT 06/03/2019 2:44 Results for this PM [employer] procedure are i n the results section. D-DIMER Routine 06/03/2019 2:43 Results for this PM [employer] procedure are i n the results section. XR CHEST 1 VW PORTABLE STAT 06/03/2019 2:38 R esults for this PM [employer] procedure are i n the results section. RESPIRATORY PATHOGEN Routine 06/03/2019 2:36 Res ults for this PANEL PM [employer] procedure are i n the results section. ARTERIAL BLOOD GAS STAT 06/03/2019 1:48 Resul ts for this PM [employer] procedure are i n the results section. POC GLUCOSE Routine 06/03/2019 12:18 Results for this PM [employer] procedure are i n the results section. XR CHEST 1 VW PORTABLE Timed 06/03/2019 10:58 R esults for this AM [employer] procedure are i n the results section. POC GLUCOSE Routine 06/03/2019 8:05 Results for this AM [employer] procedure are i n the results section. POC GLUCOSE Routine 06/03/2019 6:16 Results for this AM [employer] procedure are i n the results section. ESTIMATED GFR Routine 06/03/2019 3:30 Results fo r this AM [employer] procedure are i n the results section. BASIC METABOLIC PANEL Routine 06/03/2019 3:30 Re sults for this AM [employer] procedure are i n the results section. HC COMPLETE BLD COUNT Routine 06/03/2019 3:30 Re sults for this W/AUTO DIFF AM [employer] procedure are i n the results section. POC GLUCOSE Routine 06/03/2019 3:03 Results for this AM [employer] procedure are i n the results section. POC GLUCOSE Routine 06/02/2019 10:08 Results for this PM [employer] procedure are i n the results section. POC GLUCOSE Routine 06/02/2019 8:23 Results for this PM [employer] procedure are i n the results section. POC GLUCOSE Routine 06/02/2019 4:39 Results for this PM [employer] procedure are i n the results section. ARTERIAL BLOOD GAS STAT 06/02/2019 3:25 Resul ts for this PM [employer] procedure are i n the results section. XR CHEST 1 VW PORTABLE STAT 06/02/2019 3:20 R esults for this PM [employer] procedure are i n the results section. TRANSFUSE RED BLOOD Routine 06/02/2019 3:17 CELLS PM [employer] POC GLUCOSE Routine 06/02/2019 1:34 Results for this PM [employer] procedure are i n the results section. PREPARE RBC Routine 06/02/2019 8:34 Results for this AM [employer] procedure are i n the results section. PREPARE RBC Routine 06/02/2019 8:34 Results for this AM [employer] procedure are i n the results section. TYPE AND SCREEN Routine 06/02/2019 8:34 Results for this AM [employer] procedure are i n the results section. CBC HEMOGRAM Routine 06/02/2019 5:20 Results for this AM [employer] procedure are i n the results section. POC GLUCOSE Routine 06/01/2019 10:56 Results for this PM [employer] procedure are i n the results section. POC GLUCOSE Routine 06/01/2019 9:44 Results for this PM [employer] procedure are i n the results section. HEMODIALYSIS Routine 06/01/2019 5:08 PM [employer]OPER POC GLUCOSE Routine 06/01/2019 5:04 Results for this PM [employer] procedure are i n the results section. CV PYP SCAN FOR CARDIAC Routine 06/01/2019 3:12 Results for this AMYLOIDOSIS PM [employer] procedure are i n the results section. POC GLUCOSE Routine 06/01/2019 12:04 Results for this PM [employer] procedure are i n the results section. ECG 12-LEAD STAT 06/01/2019 11:32 Results for this AM [employer] procedure are i n the results section. XR CHEST 1 VW PORTABLE STAT 06/01/2019 11:20 R esults for this AM [employer] procedure are i n the results section. POC GLUCOSE Routine 06/01/2019 7:50 Results for this AM [employer] procedure are i n the results section. ESTIMATED GFR Routine 06/01/2019 5:20 Results fo r this AM [employer] procedure are i n the results section. BASIC METABOLIC PANEL Routine 06/01/2019 5:20 Re sults for this AM [employer] procedure are i n the results section. KAPPA LAMBDA FREE LIGHT Routine 06/01/2019 5:20 Results for this CHAIN WITH RATIO AM [employer] procedure a re in the results section. POC GLUCOSE Routine 05/31/2019 9:16 Results for this PM [employer] procedure are i n the results section. ECG 12-LEAD STAT 05/31/2019 5:44 Results for this PM [employer] procedure are i n the results section. ESTIMATED GFR STAT 05/31/2019 5:33 Results fo r this PM [employer] procedure are i n the results section. MAGNESIUM LEVEL STAT 05/31/2019 5:33 Results for this PM [employer] procedure are i n the results section. BASIC METABOLIC PANEL STAT 05/31/2019 5:33 Re sults for this PM [employer] procedure are i n the results section. POC GLUCOSE Routine 05/31/2019 4:58 Results for this PM [employer] procedure are i n the results section. CT CARDIAC CALCIUM Routine 05/31/2019 3:35 Resul ts for this SCORE PM [employer] procedure are i n the results section. POC GLUCOSE Routine 05/31/2019 12:29 Results for this PM [employer] procedure are i n the results section. HEMODIALYSIS Routine 05/31/2019 9:45 AM [employer]OPER POC GLUCOSE Routine 05/31/2019 7:59 Results for this AM [employer] procedure are i n the results section. CBC HEMOGRAM Routine 05/31/2019 4:10 Results for this AM [employer] procedure are i n the results section. T3, FREE Routine 05/31/2019 4:10 Results for this AM [employer] procedure are i n the results section. ESTIMATED GFR Routine 05/31/2019 12:00 Results fo r this AM [employer] procedure are i n the results section. PHOSPHORUS LEVEL Routine 05/31/2019 12:00 Results for this AM [employer] procedure are i n the results section. IONIZED CALCIUM Routine 05/31/2019 12:00 Results for this AM [employer] procedure are i n the results section. MAGNESIUM LEVEL Routine 05/31/2019 12:00 Results for this AM [employer] procedure are i n the results section. BASIC METABOLIC PANEL Routine 05/31/2019 12:00 Re sults for this AM [employer] procedure are i n the results section. POC GLUCOSE Routine 05/30/2019 8:56 Results for this PM [employer] procedure are i n the results section. TTE COMPLETE, WO Routine 05/30/2019 7:00 Results for this CONTRAST, W DOPPLER PM [employer] procedur e are in [id number]) the results section. POC GLUCOSE Routine 05/30/2019 5:24 Results for this PM [employer] procedure are i n the results section. US DUPLEX ARTERIAL STAT 05/30/2019 5:00 Resul ts for this UPPER EXTREMITY PM [employer] procedure ar e in BILATERAL the results section. US ANKLE BRACHIAL INDEX Routine 05/30/2019 3:30 Results for this PM [employer] procedure are i n the results section. US DUPLEX ARTERIAL Routine 05/30/2019 3:30 Resul ts for this LOWER EXTREMITY PM [employer] procedure ar e in BILATERAL the results section. POC GLUCOSE Routine 05/30/2019 11:29 Results for this AM [employer] procedure are i n the results section. ARTERIAL BLOOD GAS Routine 05/30/2019 11:24 Resul ts for this AM [employer] procedure are i n the results section. LDH Routine 05/30/2019 11:05 Results for this AM [employer] procedure are i n the results section. POC GLUCOSE Routine 05/30/2019 7:30 Results for this AM [employer] procedure are i n the results section. XR CHEST 1 VW PORTABLE Routine 05/30/2019 4:10 R esults for this AM [employer] procedure are i n the results section. POC GLUCOSE Routine 05/30/2019 3:58 Results for this AM [employer] procedure are i n the results section. ESTIMATED GFR Routine 05/30/2019 12:50 Results fo r this AM [employer] procedure are i n the results section. PHOSPHORUS LEVEL Routine 05/30/2019 12:50 Results for this AM [employer] procedure are i n the results section. MAGNESIUM LEVEL Routine 05/30/2019 12:50 Results for this AM [employer] procedure are i n the results section. IONIZED CALCIUM Routine 05/30/2019 12:50 Results for this AM [employer] procedure are i n the results section. BASIC METABOLIC PANEL Routine 05/30/2019 12:50 Re sults for this AM [employer] procedure are i n the results section. T4, FREE Routine 05/30/2019 12:50 Results for this AM [employer] procedure are i n the results section. THYROID STIMULATING Routine 05/30/2019 12:50 Resu lts for this HORMONE AM [employer] procedure are i n the results section. URIC ACID LEVEL Routine 05/30/2019 12:50 Results for this AM [employer] procedure are i n the results section. MANUAL DIFFERENTIAL Routine 05/30/2019 12:20 Resu lts for this AM [employer] procedure are i n the results section. CBC WITH PLATELET AND Routine 05/30/2019 12:20 Re sults for this DIFFERENTIAL AM [employer] procedure are i n the results section. POC GLUCOSE Routine 05/29/2019 11:45 Results for this PM [employer] procedure are i n the results section. POC GLUCOSE Routine 05/29/2019 7:47 Results for this PM [employer] procedure are i n the results section. POC GLUCOSE Routine 05/29/2019 4:16 Results for this PM [employer] procedure are i n the results section. POC GLUCOSE Routine 05/29/2019 11:23 Results for this AM [employer] procedure are i n the results section. HEPARIN PF4 ANTIBODY Routine 05/29/2019 9:41 Res ults for this (IGG) AM SAP BW BI DEVELOPER procedure are i n the results section. POC GLUCOSE Routine 05/29/2019 7:36 Results for this AM [employer] BW BI DEVELOPER procedure are i n the results section. XR CHEST 1 VW PORTABLE Routine 05/29/2019 4:02 R esults for this AM SAP BW BI DEVELOPER procedure are i n the results section. POC GLUCOSE Routine 05/29/2019 4:00 Results for this AM [employer] BW BI DEVELOPER procedure are i n the results section. ECG 12-LEAD Routine 05/29/2019 3:42 Results for this AM [employer] BW BI DEVELOPER procedure are i n the results section. HC COMPLETE BLD COUNT Routine 05/29/2019 1:00 Re sults for this W/AUTO DIFF AM [employer] BI DEVELOPER procedure are i n the results section. ESTIMATED GFR Routine 05/29/2019 12:33 Results fo r this AM [employer] BW BI DEVELOPER procedure are i n the results section. PHOSPHORUS LEVEL Routine 05/29/2019 12:33 Results for this AM [employer] BW BI DEVELOPER procedure are i n the results section. MAGNESIUM LEVEL Routine 05/29/2019 12:33 Results for this AM [employer] BW BI DEVELOPER procedure are i n the results section. IONIZED CALCIUM Routine 05/29/2019 12:33 Results for this AM [employer] BW BI DEVELOPER procedure are i n the results section. BASIC METABOLIC PANEL Routine 05/29/2019 12:33 Re sults for this AM [employer] BI DEVELOPER procedure are i n the results section. HC COMPLETE BLD COUNT Routine 05/29/2019 12:00 Re sults for this W/AUTO DIFF AM [employer] BW BI DEVELOPER procedure are i n the results section. POC GLUCOSE Routine 05/28/2019 11:52 Results for this PM [employer] BI DEVELOPER procedure are i n the results section. POC GLUCOSE Routine 05/28/2019 8:25 Results for this PM [employer] BW BI DEVELOPER procedure are i n the results section. POC GLUCOSE Routine 05/28/2019 4:33 Results for this PM [employer] BW BI DEVELOPER procedure are i n the results section. HEPATITIS B SURFACE Routine 05/28/2019 1:50 Resu lts for this ANTIGEN PM [employer] BI DEVELOPER procedure are i n the results section. POC GLUCOSE Routine 05/28/2019 11:30 Results for this AM [employer] BW BI DEVELOPER procedure are i n the results section. HEMODIALYSIS Routine 05/28/2019 11:17 AM SAP BW BI DEVELOPER HC COMPLETE BLD COUNT Routine 05/28/2019 10:05 Re sults for this W/AUTO DIFF AM [employer] BI DEVELOPER procedure are i n the results section. XR CHEST 1 VW PORTABLE Routine 05/28/2019 10:02 R esults for this AM SAP BW BI DEVELOPER procedure are i n the results section. CONSULT CARDIAC REHAB Routine 05/28/2019 9:42 PHASE 1 AM SAP BW BI DEVELOPER ECG 12-LEAD STAT 05/28/2019 9:42 Results for this AM [employer] BW BI DEVELOPER procedure are i n the results section. HEMOGLOBIN A1C Routine 05/28/2019 9:41 Results f or this AM [employer] BW BI DEVELOPER procedure are i n the results section. ESTIMATED GFR Routine 05/28/2019 9:41 Results fo r this AM [employer] BW BI DEVELOPER procedure are i n the results section. TYPE AND SCREEN Routine 05/28/2019 9:41 Results for this AM SAP BW BI DEVELOPER procedure are i n the results section. PARTIAL THROMBOPLASTIN Routine 05/28/2019 9:41 R esults for this TIME (PTT) AM SAP BW BI DEVELOPER procedure are i n the results section. PROTHROMBIN TIME WITH Routine 05/28/2019 9:41 Re sults for this INR AM SAP BW BI DEVELOPER procedure are i n the results section. IONIZED CALCIUM Routine 05/28/2019 9:41 Results for this AM SAP BW BI DEVELOPER procedure are i n the results section. PHOSPHORUS LEVEL Routine 05/28/2019 9:41 Results for this AM [employer] BW BI DEVELOPER procedure are i n the results section. MAGNESIUM LEVEL Routine 05/28/2019 9:41 Results for this AM [employer] BW BI DEVELOPER procedure are i n the results section. BASIC METABOLIC PANEL Routine 05/28/2019 9:41 Re sults for this AM SAP BW BI DEVELOPER procedure are i n the results section. POC GLUCOSE Routine 05/28/2019 9:39 Results for this AM SAP BW BI DEVELOPER procedure are i n the results section. after 12/29/2018 Results POC glucose (06/09/2019 4:35 PM SAP BW BI DEVELOPER)Only the most recent of74 resultswithin the time period is included. Pathologist Sig nature POC glucose 238 (H) 65 - 99 mg/dL [facility] Comment: HOSPITAL Cotton Bag Sewer Name: Veena Ortiz Device ID: [id number] Chartable: [facility] Notified RN Specimen Performing Organization Address City/State/Zipcode Phone Number [facility] DEPARTMENT OF PATHOLOGY AND [address] [place] [address] [phone] [address] Partial thromboplastin time, activated (06/09/2019 4:45 AM SAP BW BI DEVELOPER)Only the most recent of9 resultswithin the time period is included. [facility] PTT 52.8 (H) 23.0 - 36.0 [facility] Comment: [facility] PTT therapeutic range for unfractionated heparin is 61.0-112.0 seconds which corresponds to Anti-Xa 0.3-0.7 U/ml. Specimen Blood Performing Organization Address City/[facility] Phone Number [facility] DEPARTMENT OF PATHOLOGY AND [address] [place] [address] 0 [facility] [address] [place] [address] CBC with platelet and differential (06/09/2019 4:45 AM SAP BW BI DEVELOPER)Only the most recent of10 resultswithin the time period is included. [facility] WBC 11.21 (H) 4.50 - 11.00 [facility] k/uL [facility] RBC 3.04 (L) 4.40 - 6.00 [facility] HGB 8.5 (L) 14.0 - 18.0 [facility] g/dL [facility] HCT 29.7 (L) 41.0 - 51.0 % [facility] MCV 97.7 82.0 - 100.0 [facility] MCH 28.0 27.0 - 34.0 pg [facility] MCHC 28.6 (L) 31.0 - 37.0 [facility] RDW - SD 63.7 (H) 37.0 - 55.0 fL [facility] MPV 12.5 8.8 - 13.2 fL [facility] Platelet count 127 (L) 150 - 400 k/uL [facility] Nucleated RBC 0.00 /100 WBC [facility] Neutrophils 78.6 (H) 39.0 - 69.0 % [facility] Lymphocytes 8.8 (L) 25.0 - 45.0 % [facility] Monocytes 10.9 (H) 0.0 - 10.0 % [facility] Eosinophils 1.1 0.0 - 5.0 % [facility] Basophils 0.2 0.0 - 1.0 % [facility] Immature granulocytes 0.4Comment: 0.0 - 1.0 % [facility] "Immature HOSPITAL granulocytes" (promyelocytes , myelocytes, metamyelocytes ) Specimen Blood Performing Organization Address City/State/Zipcode Phone Number [facility] DEPARTMENT OF PATHOLOGY AND [address] [place], [place] [address] GENOMIC MEDICINE [facility] [address] [place] [address] XR Chest 1 Vw Portable (06/08/2019 12:32 PM SAP BW BI DEVELOPER)Only the most recent of10 resultswithin the time [...] Bones: Regional osseous structures appea r stable. [id number] Procedure Note Interface, Radiology Results Incoming - 06/08/2019 12:48 PM SAP BW BI DEVELOPER EXAMINATION: XR CHEST 1 VW PORTABLE CLINICAL [...] Bones: Regional osseous structures appea r stable. [id number] Performing Organization Address City/[facility]/Zipcode Phone Number [address] [address] Estimated GFR (06/08/2019 5:50 AM SAP BW BI DEVELOPER)Only the most recent of11 resultswithin the time period is included. Estimated GFR 14 (A) mL/min/1.73 [facility] Comment: m2 HOSPITAL Catergory Units Interpretation G1 [...] 2014. Specimen Plasma specimen Performing Organization Address [facility] Phone Number [facility] DEPARTMENT OF PATHOLOGY AND [address] [place] [address] Phosphorus level (06/08/2019 5:50 AM SAP BW BI DEVELOPER)Only the most recent of8 resultswithin the time period is included. Pathologist Sig nature Phosphorus 2.5 2.4 - 4.5 mg/dL [facility] Specimen Plasma specimen Performing Organization Address [facility] Phone Number [facility] DEPARTMENT OF PATHOLOGY AND [address] [place] [address] Magnesium level (06/08/2019 5:50 AM SAP BW BI DEVELOPER)Only the most recent of9 resultswithin the time period is included. Pathologist Sig nature Magnesium 2.3 1.6 - 2.4 mg/dL [facility] Specimen Plasma specimen Performing Organization Address [facility] Cent[facility]ode Phone Number [facility] DEPARTMENT OF PATHOLOGY AND [address] [place] [address] [place] [address] Basic metabolic panel (06/08/2019 5:50 AM SAP BW BI DEVELOPER)Only the most recent of8 results within the time period is included. Pathologist Sig nature Sodium 135 135 - 148 mEq/L [facility] Potassium 4.2 3.5 - 5.0 mEq/L [facility] Chloride 97 (L) 98 - 112 mEq/L [facility] CO2 26 24 - 31 mEq/L [facility] Anion gap 12@ANIO 7 - 15 mEq/L [facility] BUN 31 (H) 8 - 23 mg/dL [facility] Creatinine 4.21 (H) 0.70 - 1.20 mg/dL [facility] Glucose 117 (H) 65 - 99 mg/dL [facility] Calcium 9.0 8.8 - 10.2 mg/dL [facility] Specimen Plasma specimen Performing Organization Address City/[facility] Phone Number [facility] DEPARTMENT OF PATHOLOGY AND [address] [place] [address] Arterial blood gas (06/07/2019 11:34 AM SAP BW BI DEVELOPER)Only the most recent of5 results within the time period is included. Pathologist Sig nature pH, arterial 7.38 7.35 - 7.45 [facility] pCO2, arterial 50 (H) 35 - 45 mmHg [facility] pO2, arterial 76 (L) 80 - 90 mmHg [facility] Bicarbonate, 28.8 (H) 21.0 - 28.[address] [facility] mmol/L HOSPITAL Base excess, 4 (H) -2 - 2 mEq/L [facility] O2 saturation, 95 95 - 100 % [facility] Specimen Blood Performing Organization Address City/[facility] Phone Number [facility] DEPARTMENT OF PATHOLOGY AND [address] [place] [address] duplex venous lower extremity (06/07/2019 6:20 AM SAP BW BI DEVELOPER) Specimen Narrative Performed At [facility] Lower Extr emity Venous Report [address] [place] [address] Pat.Name: DILLON PEREZ Pat.ID: [id number] .Date: 06/07/2019 Refer.MD: KIMBERLY KHANNA MD Exam Time: 4:51:00 AM Study Type:L E Venous Age: 1001/16/1940,79Y Sex: MALE Sonogrphr: Jamal Lira, BA, BS, RDMS, RVT Pat. Stat.:Inpatient Room: [place] [address]A Tape V ol: ZENAIDA, CPT - 4: 54443 Echo Rhea nt ID:[id number] Order ID: [id number] Reason for Study:Evaluate for DVT. Patie nt [...] Radiology Results In - 2019 8:[address] [facility] Vascular Ultrasound Laboratory Lower Extremity Veno us Report [address] [place] [address] Pat.Name: DILLON PEREZ Pat.I D: [id number] .Date: 06/07/2019 Refer .MD: KIMBERLY KHANNA MD Exam Time: 4:51:00 AM Study Type:LE Venous Age: 1001/16/1940,79Y Sex: MALE Sonogrphr: Jamal Lira, BA, BS, RDMS, RVT Pat. Stat.:Inpatient Room: [address] Vol: ZENAIDA, CPT - 4: 69038 Echo Event ID:[id number] Order ID: [id number] Reason for Study:Evaluate for DVT. Evangelina nt has history of pulmonary embolism, end [...] Performing Organization Address City/State/Zipcode Phone Number [facility] [address] [place] [address] CBC hemogram (06/07/2019 3:50 AM SAP BW BI DEVELOPER)Only the most recent of5 resultswithin the time period is included. Pathologist Sig nature WBC 16.21 (H) 4.50 - 11.00 k/uL [facility] RBC 3.35 (L) 4.40 - 6.00 m/uL [facility] HGB 9.6 (L) 14.0 - 18.0 g/dL [facility] HCT 32.4 (L) 41.0 - 51.0 % [facility] MCV 96.7 82.0 - 100.0 fL [facility] MCH 28.7 27.0 - 34.0 pg [facility] MCHC 29.6 (L) 31.0 - 37.0 g/dL [facility] RDW - SD 64.8 (H) 37.0 - 55.0 fL [facility] MPV 12.3 8.8 - 13.2 [facility] Platelet count 132 (L) 150 - 400 k/uL [facility] Nucleated RBC 0.00 /100 WBC [facility] Specimen Blood Performing Organization Address City/[facility]ercode Phone Number [facility] DEPARTMENT OF PATHOLOGY AND [address] [place] [address] [phone] [address] Occult blood, stool (06/06/2019 5:50 PM SAP BW BI DEVELOPER) Pathologist [facility] Occult blood, Negative for occult blood. [facility] stool Comment: HOSPITAL Specimen Information Specimen Source: Stool Specimen Site: Nonpreserved Specimen Stool - Nonpreserved Performing Organization Address City/[facility]ode Phone Number [facility] DEPARTMENT OF PATHOLOGY AND [address] [place] [address] Comprehensive metabolic panel (06/06/2019 3:35 AM SAP BW BI DEVELOPER)Only the most recent of3 resultswithin the time period is included. [facility] Signature Sodium 136 135 - 148 [facility] mEq/L [facility] Potassium 4.7 3.5 - 5.0 [facility] mEq/[facility] Chloride 96 (L) 98 - 112 mEq/L [facility] CO2 25 24 - 31 mEq/L [facility] Anion gap 15@ANIO 7 - 15 mEq/L [facility] BUN 38 (H) 8 - 23 mg/dL [facility] Creatinine 4.73 (H) 0.70 - 1.20 [facility] mg/dL HOSPITAL Glucose 77 65 - 99 mg/dL [facility] Calcium 8.7 (L) 8.8 - 10.2 [facility] mg/dL [facility] Protein 6.4 6.3 - 8.3 g/dL [facility] Comment: HOSPITAL Pazdxvl9854.6-7.0 g/dL 1 dcbh0265.4-7.6 g/dL 7 months-3bijz356.1-7.3 g/dL 1-2 scyxf024.6-7.5 g/dL >3 .0-8.0 g/dL 18-3734643.3-8.3 g/dL Albumin 2.4 (L) 3.5 - 5.0 g/dL [facility] A/G ratio 0.6 (L) 0.7 - 3.8 [facility] Alkaline phosphatase 77 40 - 129 U/L [facility] AST 10 10 - 50 U/L [facility] ALT 15 5 - 50 U/L [facility] Total bilirubin 0.5 0.0 - 1.2 [facility] mg/dL HOSPITAL Specimen Plasma specimen Performing Organization Address City/State/Zipcode Phone Number [facility] DEPARTMENT OF PATHOLOGY AND [address] [place] [address] [phone] [address] Transfuse RBC (06/04/2019 10:32 PM SAP BW BI DEVELOPER)Only the most recent of3 resultswithin the time period is included.Smear review (06/04/2019 5:50 AM SAP BW BI DEVELOPER) Pathologist Sig nature Platelet slide review Trell slt decr [facility] Anisocytosis Moderate [facility] Polychromasia Moderate [facility] Ovalocytes Moderate [facility] Specimen Performing Organization Address City/State/Zipcode Phone Number [facility] DEPARTMENT OF PATHOLOGY AND [address] [place], [place] [address] [address] Prothrombin time with INR (06/03/2019 11:20 PM SAP BW BI DEVELOPER)Only the most recent of2 resultswithin the time period is included. Prothrombin time 14.8 (H) 11.5 - 14.5 [facility] INR 1.2 [facility] Comment: [facility] International Normalized Ratio (INR) is a [facility] HOSPITAL monitoring tool for patients who are stable on oral anticoagulant therapy. An INR of 2.0-3.0 is suggested for deep vein thrombosis/pulmonary embolism. Specimen Blood Performing Organization Address [facility] Cent[facility]ode Phone Number [facility] DEPARTMENT OF PATHOLOGY AND [address] [place] [address] [phone] [address] Anti Xa, unfractionated (06/03/2019 11:20 PM SAP BW BI DEVELOPER) Pathologist [facility] Anti Xa, <0.10 (L)Comment: 0.30 - 0.70 [facility] unfractionated Therapeutic Range: U/mL [facility] 0.30 - 0.70 U/mL [facility] Specimen Blood Performing Organization Address [facility] Phone Number [facility] DEPARTMENT OF PATHOLOGY AND [address] [place] [address] [phone] [address] [address] Angiogram Pe Chest (06/03/2019 7:51 PM SAP BW BI DEVELOPER) Specimen Narrative Performed At EXAMINATION: [facility] CT [...] at 8:00 PM, and she expressed understanding [facility]-[id number] Procedure Note Hm Interface, Radiology Results Incoming - 06/03/2019 8:04 PM SAP BW BI DEVELOPER EXAMINATION: CT ANGIOGRAM PE CHEST CLINICAL HISTORY:79 [...] at 8:00 PM, and she expressed understanding [facility]-[id number] Performing Organization Address City/State/Zipcode Phone Number [facility] [address] [place] [address] ECG 12 lead (06/03/2019 2:44 PM SAP BW BI DEVELOPER)Only the most recent of5 resultswithin the time period is included. Pathologist Sig nature Ventricular rate 115 [facility] Atrial rate 115 [facility] MA interval 114 [facility] QRSD interval 154 [facility] QT interval 460 [facility] QTC interval 636 [facility] P axis 1 68 [facility] QRS axis 1 -73 [facility] T wave axis 89 [facility] MUSE EKG impression Atrial-sensed [facility] MUSE ventricular-paced rhythm-Biventricular pacemaker detected-Abnormal ECG-In automated comparison with ECG of 01-JUN-2019 11:32,-No significant change was found-- Specimen Narrative Performed At This result has an attachment that is no t available. Performing Organization Address [facility] Centercode Phone Number [facility] MUSE [address] [place] [address] D-dimer (06/03/2019 2:43 PM SAP BW BI DEVELOPER) D-dimer 1.73 (H) 0.00 - 0.40 [facility] Comment: ug/mL FEU HOSPITAL Units are ug/ml Fibrinogen Equivalent Unit. When combined with low clinical probability, D-dimer r esults of less than 0.5 ug/ml FEU have a good negative pred ictive value in excluding PE or DVT. For D-dimer results greater than 0.5 ug/ml FEU fur er testing is indicated if PE or DVT is suspected clini oralia. Elevated D-dimer results have been reported in DVT, PE , and DIC cases and may indicate the presence of a clot. D-dimer results may be elevated due to old age, pregna ncy, inflammatory diseases, trauma, post-operative states, sepsis, and malignancies. Specimen Blood Performing Organization Address [facility] Phone Number [facility] DEPARTMENT OF PATHOLOGY AND [address] [place] [phone] GENOMIC MEDICINE [address] [address] Respiratory pathogen panel (06/03/2019 2:36 PM SAP BW BI DEVELOPER) Respiratory Positive for Influenza A/H1-2009 virus [facility] pathogen panel [facility] Negative for all other pathogens tested: HOSPITAL [...] Specimen Nares - Right Performing Organization Address [facility] Centercode Phone Number [facility] DEPARTMENT OF PATHOLOGY AND [address] [place] [address] [address] Prepare RBC, 2 Units (06/02/2019 8:34 AM SAP BW BI DEVELOPER)Only the most recent of2 results within the time period is included. Product name [facility] Red Cell [facility] Unit number [id number] [facility] Product code [id number] [facility] Dispense status Transfused [facility] Blood expiration date [facility] Blood type code 5100 [facility] Blood type O POSITIVE [facility] Compatibility Compatible [facility] Product name Apheresis Red Cell [facility] Unit number [id number] [facility] Product code [id number] [facility] Dispense status Transfused [facility] Blood expiration date [facility] Blood type code 5100 [facility] Blood type O POSITIVE [facility] Compatibility Compatible [facility] Specimen Blood Performing Organization Address [facility] Centercode Phone Number [facility] DEPARTMENT OF PATHOLOGY AND [address] [place], [place] [address] [address] Type and screen (06/02/2019 8:34 AM SAP BW BI DEVELOPER)Only the most recent of2 resultswithin the time period is included. Pathologist Sig nature ABO grouping O [facility] Rh type POS [facility] Antibody screen (gel) NEG [facility] Specimen Blood Performing Organization Address City/State/Zipcode Phone Number [facility] DEPARTMENT OF PATHOLOGY AND [address] [place] [address] GENOMIC MEDICINE [facility] [address] [place] [address] Cv pyp scan for cardiac amyloidosis (06/01/2019 3:12 PM SAP BW BI DEVELOPER) Specimen Narrative Performed At This result has an attachment that is no t available. [facility] Nuclear Cardiology and Card iac [place] [address] [address] PYP Cardiac Amyloidosis Imagin g Report Pat.Name: DILLON PEREZ at.ID: [id number] St.Date: 06/01/2019 Refer.MD: ASCENCION QUINTERO MD Exam Time: 11:24:00 AM Study Type:PYP Cardiac Amyloidosis Imaging Height: 71in Weight: 266lb BSA: 2.38 m2 Age: 1001/16/1940,79Y Sex: MALE Nuclear Tech:ALLIE Tavares, ARRT(N) Pat. Stat.:Inpatient Nuclear Event ID:[id number] Order ID: [id number] Reason for Study:R/O TTR amyloid History / [...] Radiology Results In - 2019 3:[address] [facility] Nuclear Cardiology and Cardiac CT [address] [place] [address] PYP Cardiac Amyloidosis Imaging Report Pat.Name: DILLON PEREZ Pat.I D: [id number] .Date: 06/01/2019 Refer .MD: ASCENCION QUINTERO MD Exam Time: 11:24:00 AM Study Type:PYP Cardiac Amyloidosis Imagi ng Height: 71in Weigh t: 266lb BSA: 2.38 m2 Age: 1001/16/1940,79Y Sex: MALE Nuclear Tech:Jenni Mendiola DERRICK BOAT LEVER OPERATOR, [facility](N) Pat. Stat.:Inpatient Nucle ar Event ID:[id number] Order ID: [id number] Reason for Study:R/O TTR amyloid History / [...] PM Mohan Saucedo MD Performing Organization Address [facility] Phone Number [facility] [address] [place] [address] [place] lambda free light chain with ratio (06/01/2019 5:20 AM SAP BW BI DEVELOPER) Pathologist Sig nature [place] light chain 289.08 (H) 3.30 - 19.40 [facility] mg/L [facility] Lambda light chain 143.97 (H) 5.70 - 26.30 [facility] mg/L [facility] [place] lambda ratio 2.01 (H) 0.26 - 1.65 [facility] Specimen Plasma specimen Performing Organization Address [facility] [facility] Phone Number [facility] DEPARTMENT OF PATHOLOGY AND [address] [place] [address] [phone] GENOMIC MEDICINE [address] [address] [address] cardiac calcium score (05/31/2019 3:35 PM SAP BW BI DEVELOPER) Specimen Narrative Performed At [facility] Cardi ology and Cardiac CT [address] [facility], [place], [place] [id number] CT Calc ium Scoring Report Pat.Name: DILLON PEREZ Pat.ID: [id number] .Date: 05/31/2019 Refer.MD: ASCENCION QUINTERO MD Exam Time: 3:04:00 PM Study Type:C T Calcium Scoring Height: 71in Weight: 266lb BSA: 2.38 m2 Ag e: 1940,79Y Sex: MALE HR: 92 bpm Nuclear Tech:Ayo Aviles RT(GA)(CT), [facility]/Abdiel Billings [facility] Pat. Stat.:Inpatient Nuclear Event ID:[id number] Order ID: [id number] Reason for Study:Eval Aortic Valve Procedures: CT [...] Radiology Results In - 2019 7:[address] [facility] Nuclear Cardiology and Cardiac CT [address] [place] [address] CT Calcium Scoring Report Pat.Name: DILLON PEREZ Pat.I D: [id number] .Date: 05/31/2019 Refer .MD: ASCENCION QUINTERO MD Exam Time: 3:04:00 PM Study Type:CT Calcium Scoring Height: 71in Weigh t: 266lb BSA: 2.38 m2 Age: 1001/16/1940,79Y Sex: MALE HR: 92 bpm Nuclear Tech:Ayo Aviles, RT(GA)(CT), [facility]/Abdiel Billings [facility] Pat. Stat.:Inpatient Nuclear Event ID:[id number] Order ID: [id number] Reason for Study:Eval Aortic Valve Procedures: CT [...] PM Beny Weiss MD Performing Organization Address [facility] Phone Number [facility] [address] [place] [address] T3, free (05/31/2019 4:10 AM SAP BW BI DEVELOPER) Pathologist [facility] T3, free 1.1 (L) 2.4 - 4.2 pg/mL [facility] Comment: REFERENCE INTERVAL: Triiodothyronine, Free (Free T3) Access complete set of age- and/or gender-specific ref erence intervals for this test in the [facility] Test Di rectory ([employer]). Performed by [facility], [address] [place] [id number] www.[employer], Jared Foster MD, Lab. Director Specimen Serum Performing Organization Address [facility] Phone Number [facility] [address] [place] [address] [facility] [address] [place] [address] Ionized calcium (05/31/2019 12:00 AM SAP BW BI DEVELOPER)Only the most recent of4 resultswithin the time period is included. Pathologist Sig [facility] pH 7.38 [facility] Ionized calcium 1.06 (L) 1.11 - 1.32 [facility] mmol/L HOSPITAL Specimen Plasma specimen Performing Organization Address [facility] Phone Number [facility] DEPARTMENT OF PATHOLOGY AND [address] [place] [address] [phone] GENOMIC MEDICINE [address] [address] Echocardiogram complete w contrast and 3D if needed (05/30/2019 7:00 PM SAP BW BI DEVELOPER) Specimen Narrative Performed At [facility] Echo cardiography Report [address] [facility], [address] [address] Pat.Name: DILLON PEREZ Pat.ID: [id number] .Date: 05/30/2019 Refer.MD: ASCENCION QUINTERO MD Exam Time: 6:00:00 PM Study Type:R outine Echo Height: 71in Weight: 305lb BSA: 2.53 m2 Ag e: 1940,79Y Sex: MALE BP: 138/70 HR: 72 bpm Sonogr phr: EZRA Stock Pat. Stat.:Inpatient Room: L1216-O Study Status:Final Echo Event ID:[id number] Order ID: [id number] Reason for Study:Aortic stenosis evaluat ion. History [...] of 10 mmHg. MEASUREMENTS: 2D Parasternal Long Spelter Ao An 2.5 cm LVPWd 1.2 cm [...] Radiology Results In - 2019 1:49 PM SAP BW BI DEVELOPER Echocardiography Report [address] [facility], [place] [address] Pat.Name: DILLON PEREZ Pat.I D: [id number] .Date: 05/30/2019 Refer .MD: ASCENCION QUINTERO MD Exam Time: 6:00:00 PM Study Type:Routine Echo Height: 71in Weigh t: 305lb BSA: 2.53 m2 Age: 1001/16/1940,79Y Sex: MALE BP: 138/70 HR: 72 bpm Sonog rphr: EZRA Stock Pat. Stat.:Inpatient Room: [address] Study Status:Final Echo Event ID:[id number] Order ID: [id number] Reason for Study:Aortic stenosis evaluat ion. History [...] of 10 mmHg. MEASUREMENTS: 2D Parasternal Long Spelter Ao An 2.5 cm LVPW d 1.2 [...] M.D. Performing Organization Address City/State/Zipcode Phone Number [facility] [address] duplex arterial upper extremity (05/30/2019 5:00 PM SAP BW BI DEVELOPER) Specimen Narrative Performed At [facility] Vascular U ltrasound Laboratory Upper Extr emity Arterial Report [address] [place] [address], [facility] [address], [place] [address] Pat.Name: DILLON PEREZ Pat.ID: [id number] .Date: 05/30/2019 Refer.MD: ASCENCION QUINTERO MD Exam Time: 3:21:00 PM Study Type:U E Arterial Age: 1001/16/1940,79Y Sex: MALE Sonogrphr: Priti Recinos RVT Pat. Stat[facility] Room: [address] ol: RF, CPT - 4: [address] Echo Rhea nt ID:[id number] Order ID: [id number] Reason for Study:Bilateral arm pain and swelling. [...] 05/30/2019 05:50 PM Marcellus Yung MD, RPVI Procedure Note Interface, Radiology Results In - 2019 5:50 PM SAP BW BI DEVELOPER Vascular Ultrasound Laboratory Upper Extremity Aarti rial Report [address] [address] , [place] [address] Pat.Name: DILLON PEREZ Pat.I D: [id number] .Date: 05/30/2019 Refer .MD: ASCENCION QUINTERO MD Exam Time: 3:21:00 PM Study Type:UE Arterial Age: 1001/16/1940,79Y Sex: MALE Sonogrphr: Priti Recinos RVT Pat. Stat.:Inpatient Room: [address] Tape Vol: RF, CPT - 4: 513[address] Echo Event ID:[id number] Order ID: [id number] Reason for Study:Bilateral arm pain and swelling. 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 Procedures: Colorflow, Grayscale/2D, [facility] er Doppler Imaging Race: B SUMMARY: DUPLEX [...] fistula. FINDINGS: Signed 05/30/2019 05:50 PM Marcellus uYng MD, RPVI Performing Organization Address City/State/Zipcode Phone Number [facility] [address] [place] [address] Us ankle brachial index (05/30/2019 3:30 PM SAP BW BI DEVELOPER) Specimen Narrative Performed At [facility] Vascular D iagnostic Laboratory Physiologi c Arterial Leg Report [address] [facility], [facility] 9, [place] [address] Pat.Name: LANI DILLON Rhianna Pat.ID: [id number]Date: 05/30/2019 Refer.MD: ASCENCION QUINTERO MD Exam Time: 2:32:00 PM Study Type:P hysiologic Leg Age: 1001/16/1940,79Y Sex: MALE Sonogrphr: Priti Recinos RVT Pat. Stat.:Inevangelina espinosa Room: [address] l: RF, CPT - 4: [address] Echo Rhea nt ID:[id number] Order ID: [id number] Reason for Study:Bilateral decreased ped al pulses. 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 Procedures: Ankle/brachial pressures, Di git pressures Race: B SUMMARY: ANKLE/BRACHIAL INDEX: RIGHT LEFT Brachial Artery [id number] mmHg AV-F istula DP 0 mmHg 0 [...] Radiology Results In - 2019 9:[address] [facility] Vascular Diagnostic Laboratory Physiologic Arterial Leg Report [address] [place] [address] Pat.Name: DILLON PEREZ Pat.I D: [id number] St.Date: 05/30/2019 Refer .MD: ASCENCION QUINTERO MD Exam Time: 2:32:00 PM Study Type:Physiologic Leg Age: 1001/16/1940,79Y Sex: MALE Sonogrphr: Priti Recinos RVT Pat. Stat.:Inpatient Room: [address] Vol: RF, CPT - 4: [address] Echo Event ID:[id number] Order ID: [id number] Reason for Study:Bilateral decreased ped al pulses. 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 Procedures: Ankle/brachial pressures, Di git pressures Race: B SUMMARY: ANKLE/BRACHIAL INDEX: RIGHT LEFT Brachial Artery [id number] mmHg AV-Fi stula DP 0 mmHg 0 [...] Marcellus Yung MD, RPVI Performing Organization Address [facility]/State/Zipcode Phone Number [facility] [address] duplex arterial lower extremity (05/30/2019 3:30 PM SAP BW BI DEVELOPER) Specimen Narrative Performed At [facility] Vascular D iagnostic Laboratory Physiologi c Arterial Leg Report [address] [place] [address] Pat.Name: DILLON PEREZ Pat.ID: [id number] .Date: 05/30/2019 Refer.MD: ASCENCION QUINTERO MD Exam Time: 2:32:00 PM Study Type:P hysiologic Leg Age: 1001/16/1940,79Y Sex: MALE Sonogrphr: Priti Recinos RVT Pat. Stat.:Inpatie Room: [address] Tape Vo l: RF, [facility] - 4: [address] Echo Rhea nt ID:[id number] Order ID: [id number] Reason for Study:Bilateral decreased ped al pulses. 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 Procedures: Ankle/brachial pressures, Di git pressures Race: B SUMMARY: ANKLE/BRACHIAL INDEX: RIGHT LEFT Brachial Artery [id number] mmHg AV-F istula DP 0 mmHg 0 [...] Radiology Results In - 2019 9:[address] [facility] Vascular Diagnostic Laboratory Physiologic Arterial Leg Report [address] [address] Pat.Name: DILLON PEREZ Pat.I D: [id number] .Date: 05/30/2019 Refer .MD: ASCENCION QUINTERO MD Exam Time: 2:32:00 PM Study Type:Physiologic Leg Age: 1001/16/1940,79Y Sex: MALE Sonogrphr: Priti Recinos RVT Pat. Stat.:Inpatient Room: [address] Vol: RF, CPT - 4: [address] Echo Event ID:[id number] Order ID: [id number] Reason for Study:Bilateral decreased ped al pulses. 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 Procedures: Ankle/brachial pressures, Di git pressures Race: B SUMMARY: ANKLE/BRACHIAL INDEX: RIGHT LEFT Brachial Artery Uvdrpyhq890 mmHg AV-Fi stula DP 0 mmHg 0 [...] Marcellus Yung MD, RPVI Performing Organization Address [facility] Phone Number [facility] [address] [place] [address] LDH (05/30/2019 11:05 AM SAP BW BI DEVELOPER) [facility] LDH 267 (H) 87 - 225 U/L [facility] Specimen Plasma specimen Performing Organization Address [facility] Phone Number [facility] DEPARTMENT OF PATHOLOGY AND [address] [place] [address] [place] [address] Uric acid level (05/30/2019 12:50 AM SAP BW BI DEVELOPER) [facility] Uric acid 4.5 3.4 - 7.0 mg/dL [facility] Specimen Plasma specimen Performing Organization Address [facility] Phone Number [facility] DEPARTMENT OF PATHOLOGY AND [address] [place] [address] [phone] [address] Thyroid stimulating hormone (05/30/2019 12:50 AM SAP BW BI DEVELOPER) [facility] TSH 0.63 0.27 - 4.20 uIU/mL [facility] Specimen Plasma specimen Performing Organization Address [facility]/Zipcode Phone Number [facility] DEPARTMENT OF PATHOLOGY AND [address] [place] [address] [phone] [address] T4, free (05/30/2019 12:50 AM SAP BW BI DEVELOPER) Pathologist Sig nature T4, free 0.7 (L) 0.9 - 1.7 ng/dL [facility] L Specimen Plasma specimen Performing Organization Address [facility] Phone Number [facility] DEPARTMENT OF PATHOLOGY AND [address] [place] [address] [address] Manual differential (05/30/2019 12:20 AM SAP BW BI DEVELOPER) Manual differential PERFORMED [facility] Neutrophils 81.0 (H) 39.0 - 69.0 % [facility] Lymphocytes 10.0 (L) 25.0 - 45.0 % [facility] Monocytes 8.0 0.0 - 10.0 % [facility] Eosinophils 1.0 0.0 - 5.0 % [facility] Basophils 0.0 0.0 - 1.0 % [facility] Metamyelocytes 0 % [facility] Promyelocytes 0 % [facility] Platelet slide review Decreased (A) [facility] Anisocytosis Moderate [facility] Polychromasia Moderate [facility] Tear drop cells Occasional [facility] [place] cells Moderate (A) [facility] Enlarged platelets Moderate (A) [facility] Specimen Performing Organization Address [facility] Phone Number [facility] DEPARTMENT OF PATHOLOGY AND [address] [place] [address] Heparin PF4 antibody (IgG) (05/29/2019 9:41 AM SAP BW BI DEVELOPER) Pathologist Sig [facility] Heparin PF4 Ab OD 0.206 0.000 - [address].399 [facility] Heparin PF4 Ab, IgG Negative Negative [facility] Specimen Blood Performing Organization Address [facility] Phone Number [facility] DEPARTMENT OF PATHOLOGY AND [address] [place] [address] [phone] [address] Hepatitis B surface antigen (05/28/2019 1:50 PM SAP BW BI DEVELOPER) Pathologist Sig nature Hepatitis B surface Non-reactive Non-reactive [facility] Specimen Blood Performing Organization Address City/State/Zipcode Phone Number [facility] DEPARTMENT OF PATHOLOGY AND [address] [place], [place] [address] [address] Hemoglobin A1c (05/28/2019 9:41 AM SAP BW BI DEVELOPER) Hemoglobin A1C 6.5 (H) 4.0 - 5.6 % [facility] Comment: HOSPITAL HbA1c cutoffs for diagnosing diabetes: [...] Blood Performing Organization Address City/State/Zipcode Phone Number [facility] DEPARTMENT OF PATHOLOGY AND [address] [place], [place] [address] [address] after 12/29/2018 Insurance Payer Benefit Plan / Subscriber ID Effective Dates Phone Addre ss Type Group MEDICARE MEDICARE PART A xxxxxxxxxxx 2004-[place], [place] Medicare AND B t AARP AARP SUPPLEMENT xxxxxxxxxxx 2008-Present Commercial (Work) [id number] Advance Directives For more information, please contact: [phone] Type Date Recorded 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
--- OUTSIDE RECORDS SUMMARY | 2019-12-30 17:52 | XMS REPORT | Continuity of Care Document ---
:1940 Author Organization [facility] t Address [address] [place] [address] Care Team Providers Name Role Phone Martin CHOWDHURY, Anmol Walker Primary Care Physician JOANN Attending Clinician Unavailable Yoselyn MARSHALL Attending Clinician Unavailable Tania MARSHALL Attending Clinician Unavailable Ingrid CHOWDHURY, R. Attending Clinician Dean CHOWDHURY, M. Attending Clinician Johnathan CHOWDHURY PhD, S. Attending Clinician JOANN Admitting Clinician Unavailable INGRID Admitting Clinician Unavailable Payers Payer Name Policy Policy Number Effective Expiration Source Type Date Date MEDICAREMEDICARE PART xxxxxxxxxxx 2004 Jono Zelaya AND 00:00:00 Robson SaucedoWbtidleliawc68/1/2004 [place] [place] x[place]xx 2008 [place] SUPPLEMENTxxxxxxxxxxx 00:00:00 [place] 2008-PresentCom rcial Problems Condition Condition Condition Status Onset Resolution Last Treating Co mments Source Name Details Category Date Date Treatment Clinician Date Influenza Influenza Disease Active Yoel joseph A (H1N1) A (H1N1) 06-07 Method i 00:00: st 00 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 martinezyas stage stage 2-18 Methodi renal renal 00:00: st disease) disease) 00 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 2-16 Methodi valve valve 00:00: st stenosis stenosis 00 Unstable Unstable Disease Active Overview: Jono garcía angina angina 4-11 Added Methodi 00:00: automatic st 00 ally from request for surgery [id number] Coronary Coronary Disease Active Overview: Jono garcía artery artery 4-11 Added Methodi disease disease 00:00: automatic st involving involving 00 [place] request coronary coronary for artery of artery of surgery [place] [id number] heart heart without without angina angina pectoris pectoris Chest pain Chest pain Disease Active Overview : [place] 4- Added Methodi 00:00: automatic st 00 ally from request for surgery [id number] Angina Angina Disease Active [place] pectoris pectoris 4- Method i 00:00: st 00 Coronary Coronary Disease Active [place] artery artery 4-10 Methodi disease of disease of 00:00: st [place] 00 artery of artery of [place] heart with heart with stable stable angina angina pectoris pectoris Automatic Automatic Disease Active 2016-04 Yoel joseph implantabl implantabl 05-10 Me thodi e e 00:00: st cardiovert cardiovert 00 er-defibri er-defibri llator in llator in situ situ PAD PAD Disease Active [place] (periphera (periphera - Me odi l artery l artery 00:00: st disease) disease) 00 Cardiomyop Cardiomyop Disease Active [place] athy athy 08-05 Methodi 00:00: st 00 Systolic Systolic Disease [...] 2020-0 [facility] 5-16 Clear 00:00: Ann 00 [facility] ciproflo DA Active U 2020-0 [facility] xacin 5-16 Clear 00:00: Ann 00 [facility] meperidi DA Active U 2020-0 [facility] ne 5-16 Clear 00:00: Ann 00 [facility] iodine DA Active U 2020-0 [facility] 4-13 Clear 00:00: Ann 00 [facility] ciproflo DA Active U 2020-0 [facility] xacin 4-13 Clear 00:00: Ann 00 [facility] meperidi DA Active U 2020-0 [facility] ne 4-13 Clear 00:00: Ann 00 [facility] Ciproflo Propensi Active Itching [place] xacin ty to 3- Methodi adverse 00:00: st reaction 00 s to drug Meperidi Propensi Active Other (See Jono garcía ne ty to Comments) 3-27 Methodi adverse 00:00: st reaction 00 s to drug Iodine Propensi Active Itching [place] ty to 4-19 Methodi adverse 00:00: st reaction 00 s to drug Shrimp Propensi Active Itching 2017- [place] ty to 4-19 Methodi adverse 00:00: st reaction 00 s to drug Iodine Adverse Active Info Not [facility] Reaction Available [facility] Social History Social Habit Start Date Stop Date Quantity Comments Source Sex Assigned At [facility] ethodist Cigarettes smoked 2019-05-29 2019-05-29 [place] Yazidism current (pack per 00:00:00 00:00:00 day) - Reported Cigarette 2019-05-29 2019-05-29 [place] Method ist pack-years 00:00:00 00:00:00 Alcohol intake 2019-05-29 2019-05-29 Current [facility] thodist 00:00:00 00:00:00 non-drinker of alcohol (finding) History of tobacco 1979-03-08 Current smoker Jono Chance use 00:00:00 Smoking Status Start Date Stop Date Source Former smoker 2019-05-29 00:00:00 2019-05-29 00:00:00 Percy Allenist Medications Ordered Filled Start Stop Current Ordering Indication Dosage Frequency Signature Comments Components Source Medication Medication Date Date Medication? Clinician (SIG) Name Name apixaban Yes 2.5mg Q.5D Take 1 [place] (Eliquis) 12-15 tablet Methodi 2.5 mg 00:00: (2.[address] tablet 00 total) by mouth 2 (two) times a day. metoprolol 2020- Yes 25mg Q.5D Take 1 [place] tartrate 12-15 tablet (25 Meth deepali (LOPRESSOR) 00:00: 23:59 mg total) st 25 mg 00 :00 by mouth 2 tablet (two) times a day. oseltamivir 2020- No 30mg Q.[id number] Take 1 [place] (TAMIFLU) 06-12 [id number] capsule Methodi 30 MG 00:00: 23:59 3W ([address] capsule 00 :00 total) by mouth 3 (three) times a week for 3 days. midodrine 2019- No 20mg Q.[id number] Take 2 [place] (PROAMATINE 07-10 [id number] tablets Methodi ) 10 MG 00:00: 23:59 3W ([address] tablet 00 :00 total) by mouth 3 (three) times a week for 30 days. polyethylen 2019- No 17g QD Take 17 g [place] e glycol 06-10 by mouth Method i (MIRALAX) 00:00: 23:[address] 17 gram 00 :00 30 days. packet lisinopriL 2019- No 5mg QD Take 1 [place] (PRINIVIL) 06-10 tablet (5 Met hodi 5 mg tablet 00:00: 23:59 mg total) st 00 :00 by mouth daily for 30 days. insulin NPH 2019- No 6U QD [facility]ject [facility] (Humu[facility]-N[facility] 06-10 Units Method i 100 unit/mL 00:00: 23:[address] injection 00 :00 skin daily for 30 days. epoetin 2019-2019- No 46983A Q.[id number] Infuse [place] zaid-epbx 06-10 [id number] 13,000 M ethodi 10,000 00:00: 23:[address] unit/mL 00 :00 a venous solution catheter 3 10,000 (three) Units, times a epoetin week for zaid-epbx 30 days. 3,000 unit/mL solution 3,000 Units injection predniSONE 2020- 2020- No 10mg QD Take 1 [place] (DELTASONE) 06-10- tablet (10 M ethodi 10 mg 00:00: 23:59 mg total) st tablet 00 :00 by mouth daily for 30 days. fexofenadin 2019-0 2020- No 60mg QD Take 1 Yoel ston e (DRAKE) 06-10- tablet (60 M ethodi 60 MG 00:00: [...] mouth st ORAL 47 :00 daily. cholecalcif 2019-0 2020- No 2000U QD Take 2,000 [place] andre, 06-09- Units by Methodi vitamin D3, 20:45: 00:00 [...] 00:[address] tablet 47 :00 nitroglycer 2020-0 2020- No .4mg Place 0.4 [place] in 06-09- mg under Methodi (NITROSTAT) 20:45: 00:[address] 0.4 MG SL 47 :00 every 5 tablet (five) minutes as needed for chest pain. midodrine 2020-0 2020- No 20mg Q.[id number] Take 20 mg [place] (PROAMATINE 06-09 [id number] by mouth 3 Methodi ) 10 MG 20:45: 00:00 3W (three) st tablet 47 :00 times a week. omeprazole 2020-0 2020- No 20mg Q.5D Take 20 mg [place] (PriLOSEC) 06-09 by mouth 2 Me thodi 20 MG 20:45: 00:00 (two) st capsule 47 :00 times a day. fluticasone 2020-0 2020- No Inhale. [place] furoate 100 06-09 Methodi mcg/actuati 20:45: 00:00 st on blister 47 :00 with device fluticasone 2020-0 Yes 1{spray QD 1 spray by [place] (FLONASE) 06-09 } Each Nare Metho di 50 20:45: route st mcg/actuati 43 daily. on nasal spray gabapentin 2020-0 Yes 100mg Q.[id number] Take 100 [place] (NEURONTIN) - [id number] mg by M ethodi 100 mg 20:45: 3D mouth 3 st capsule 43 (three) times a day. amIODarone 2020-0 Yes 100mg QD Take 100 [place] (PACERONE) 2-27 mg by Methodi 200 MG 20:45: mouth st tablet 43 daily. sevelamer 2020-0 Yes 1600mg Q.[id number] Take 1,600 [place] (RENVELA) 2- [id number] mg by Met hodi 800 mg 20:45: 3D mouth 3 st tablet 43 (three) times a day with meals. aspirin 2020-0 Yes 162mg QD Take 162 [place] (ECOTRIN) 2-27 mg by Methodi 81 MG 20:45: mouth st enteric 43 daily. coated tablet ondansetron 2020-0 2020- No 4mg Q8H Take 1 Yoel ston ODT 06-09 03-28 tablet (4 Methodi (ZOFRAN-ODT 00:00: 23:59 mg total) st ) 4 MG 00 :00 by mouth disintegrat every 8 ing tablet (eight) hours as needed for nausea or vomiting for up to 30 days. levalbutero 2019-0 2020- No Influenza A 1.25mg Q.[id number] Take 3 mL [place] l (XOPENEX) 06-09 (H1N1) [id number] (1.25 mg Methodi 1.25 mg/3 00:00: 23:59 7D total) by st mL 00 :00 nebulizati nebulizer on every 4 solution (four) hours for 30 days. ipratropium 2019-2019- No Influenza A .5mg Q.[id number] Take 2. 5 [place] (ATROVENT) 06-09 (H1N1) [id number] mL (0.5 mg Methodi 0.02 % 00:00: 23:59 7D total) by st nebulizer 00 :00 nebulizati solution on every 4 (four) hours for 30 days. insulin 2019-0 2020- No 0U Q4H Inject [place] lispro 06-09 0-12 Units Method i (HumaLOG) 00:00: 23:[address] 100 unit/mL 00 :00 skin every injection 4 (four) hours for 30 days. heparin 2019- 2020- No 1100U/h Infuse [place] sod,pork [...] LESS) for up to 30 days. dextrose 2020-0 2020- No 12.5g Infuse 25 [place] 50% syringe 06-09 mL (12.5 g M ethodi 00:00: 23:59 total) st 00 :00 into a venous catheter every 20 (twenty) minutes as needed (If blood glucose is between 41-69 mg/dL) for up to 30 days. budesonide 2019- No Influenza A .5mg Q12H Take 2 mL [place] (PULMICORT) 06-09 (H1N1) (0.5 mg Me thodi 0.5 mg/2 mL 00:00: 23:59 total) by st nebulizer 00 :00 nebulizati solution on every 12 (twelve) hours for 30 days. acetaminoph 2019- No 650mg Q6H Insert 1 [place] en [...] st 00 :00 by mouth daily. traMADol 2019- No 50mg Take 50 mg [place] [...] [facility] clopidogrel clopidogrel Yes Chris not [facility] Ipratropium Ipratropium Yes Chris [place] [facility] [place] [place] [facility] Prednisone Prednisone Yes Chris not [facility] Vital Signs Vital Name Observation Time Observation Value Comments Source Heart rate 2019-06-09 19:30:00 86 /min Percy Chance Respiratory rate 2019-06-09 19:30:00 22 /min Essie Allenist Oxygen saturation in 2019-06-09 19:16:00 100 /min [...] Trey Norman Met hodist HEMODIALYSIS 2019-06-08 15:06:25 Dawna España ethodist Almita XR CHEST 1 VW PORTABLE 2019-06-08 12:32:38 Norma Welsh Yazidism POC GLUCOSE 2019-06-08 12:07:00 Trey Norman Met hodist POC GLUCOSE 2019-06-08 07:38:00 Trey Norman Met hodist PARTIAL THROMBOPLASTIN 2019-06-08 05:50:00 Yvette Hernandez on Yazidism TIME (PTT) HC COMPLETE BLD COUNT 2019-06-08 05:50:00 Kaylene Watkins Yazidism W/AUTO DIFF BASIC METABOLIC PANEL 2019-06-08 05:50:00 Kaylene Watkins Yazidism MAGNESIUM LEVEL 2019-06-08 05:50:00 Kaylene Watkins Yazidism PHOSPHORUS LEVEL 2019-06-08 05:50:00 Kaylene Watkins on Yazidism ESTIMATED GFR 2019-06-08 05:50:00 Kaylene Watkins Yazidism POC GLUCOSE 2019-06-08 04:26:00 Trey Norman Met hodist POC GLUCOSE 2019-06-08 00:18:00 Trey Norman Met hodist POC GLUCOSE 2019-06-07 20:16:00 Trey Norman Met hodist POC GLUCOSE 2019-06-07 16:22:00 Trey Norman Met hodist POC GLUCOSE 2019-06-07 15:50:00 Trey Norman Met hodist POC GLUCOSE 2019-06-07 11:39:00 Trey Norman Met hodist ARTERIAL BLOOD GAS 2019-06-07 11:34:00 Micheline Multani Percy Yazidism HEMODIALYSIS 2019-06-07 10:44:52 Imani Arita Percy Meth odist Vida POC GLUCOSE 2019-06-07 07:42:00 Trey Norman Met hodist US DUPLEX VENOUS LOWER 2019-06-07 06:20:00 Yvette Hernandez on Yazidism EXTREMITY BILATERAL POC GLUCOSE 2019-06-07 04:27:00 Trey Norman Met hodist PARTIAL THROMBOPLASTIN 2019-06-07 03:50:00 Yvette Hernandez on Yazidism TIME (PTT) CBC HEMOGRAM 2019-06-07 03:50:00 Jam Lee Torrey Crawford ethodist POC GLUCOSE 2019-06-07 00:19:00 Trey Norman [...] COMPLETE BLD COUNT 2019-06-06 03:35:00 Tejas Escamilla W/AUTO DIFF Louise MAGNESIUM LEVEL 2019-06-06 03:35:00 Tejas Escamilla ethodist Louise PHOSPHORUS LEVEL 2019-06-06 03:35:00 Tejas Escamilla Louise COMPREHENSIVE METABOLIC 2019-06-06 03:35:00 Tejas Escamilla [...] 1 VW PORTABLE 2019-06-05 08:59:00 Lee Polk Yazidism POC GLUCOSE 2019-06-05 08:18:00 Trey Norman [...] Met hodist HEMODIALYSIS 2019-06-04 07:32:12 Imani Arita Meth odist Vida HC COMPLETE BLD COUNT 2019-06-04 05:50:00 Tejas Escamilla Yazidism W/AUTO DIFF Louise MAGNESIUM LEVEL 2019-06-04 05:50:00 Tejas Escamilla ethodist Louise PHOSPHORUS LEVEL 2019-06-04 05:50:00 Tejas Escamilla Yazidism Louise COMPREHENSIVE METABOLIC 2019-06-04 05:50:00 [facility] PANEL Louise PARTIAL THROMBOPLASTIN 2019-06-04 05:50:00 Yvette Hernandez on Yazidism TIME (PTT) ESTIMATED GFR 2019-06-04 05:50:00 Tejas Escamilla ethodist Louise SMEAR REVIEW 2019-06-04 05:50:00 Tejas [...] CT ANGIOGRAM PE CHEST 2019-06-03 19:51:51 Yvette Hernandezto n Yazidism POC GLUCOSE 2019-06-03 16:44:00 Trey Norman Met hodist ECG 12-LEAD 2019-06-03 14:44:00 Tejas Escamilla ethodist Louise D-DIMER 2019-06-03 14:43:00 Yvette Hernandez Meth odist XR CHEST 1 VW PORTABLE 2019-06-03 14:38:39 Tejas Escamilla Jono sanchezoliver Yazidism Louise RESPIRATORY PATHOGEN PANEL 2019-06-03 14:36:00 Chandler Escamilla Yazidism Louise ARTERIAL BLOOD GAS 2019-06-03 13:48:00 Pop Escamillagenny [place] Yazidism Louise POC GLUCOSE 2019-06-03 12:18:00 Trey [...] XR CHEST 1 VW PORTABLE 2019-06-02 15:20:00 Otule, Radha K. [place]idism TRANSFUSE RED BLOOD CELLS 2019-06-02 15:17:45 Zoila Welsh Yazidism POC GLUCOSE 2019-06-02 13:34:00 Trey Norman Met hodist TYPE AND SCREEN 2019-06-02 08:34:00 Zoila Welsh Yazidism PREPARE RBC 2019-06-02 08:34:00 Trey Norman Met [...] hodist POC GLUCOSE 2019-05-31 16:58:[address] CARDIAC CALCIUM SCORE 2019-05-31 15:35:42 Ayo Pruett Yazidism POC GLUCOSE 2019-05-31 12:29:00 Ad Quintero odist HEMODIALYSIS 2019-05-31 09:45:19 Zoila Welsh Yazidism POC GLUCOSE 2019-05-31 07:59:00 Ad Quintero odist T3, FREE 2019-05-31 04:10:00 Jigar Hernandez odist CBC HEMOGRAM 2019-05-31 04:10:00 Jigar Hernandez BASIC METABOLIC PANEL 2019-05-31 00:00:00 Jigar Hernandez Yazidism MAGNESIUM LEVEL 2019-05-31 00:00:00 Jigar Hernandez IONIZED CALCIUM 2019-05-31 00:00:00 Jigar Hernandez odist PHOSPHORUS LEVEL 2019-05-31 00:00:00 Jigar Hernandez Met hodist ESTIMATED GFR 2019-05-31 00:00:00 Jigra Hernandez odist POC GLUCOSE 2019-05-30 20:56:00 Ad Quintero odgiacomo TTE COMPLETE, WO CONTRAST, 2019-05-30 19:00:00 Jigar Hernandez W DOPPLER ([id number]) POC GLUCOSE 2019-05-30 17:24:00 Ad Quintero US DUPLEX ARTERIAL UPPER 2019-05-30 17:00:00 Jigar Hernandez EXTREMITY BILATERAL US DUPLEX ARTERIAL LOWER 2019-05-30 15:30:00 Jigar Hernandez EXTREMITY BILATERAL US ANKLE BRACHIAL INDEX 2019-05-30 15:30:00 Jigar Hernandez POC GLUCOSE 2019-05-30 11:29:00 Ad Quintero odgiacomo ARTERIAL BLOOD GAS 2019-05-30 11:24:00 Yvette Hernandez M ethodist LDH 2019-05-30 11:05:00 Jigar Hernandez odist POC GLUCOSE 2019-05-30 07:30:00 Ad Quintero Meth odist XR CHEST 1 VW PORTABLE 2019-05-30 04:10:00 Alba Fine Yazidism POC GLUCOSE 2019-05-30 03:58:00 Ad Quintero Meth odist URIC ACID LEVEL 2019-05-30 00:50:00 Trey [...] on Yazidism DIFFERENTIAL MANUAL DIFFERENTIAL 2019-05-30 00:20:00 Alba Fine Yazidism POC GLUCOSE 2019-05-29 23:45:00 Ad [...] Fine Me thodist ESTIMATED GFR 2019-05-29 00:33:00 Alba Fine Met hodist HC COMPLETE BLD COUNT 2019-05-29 00:00:00 Alba Fine on Yazidism W/AUTO DIFF POC GLUCOSE 2019-05-28 23:52:00 Ad Quintero Meth odist POC GLUCOSE 2019-05-28 20:25:00 Ad Quintero Meth odist POC GLUCOSE 2019-05-28 16:33:00 Ad Quintero Meth odist HEPATITIS B SURFACE 2019-05-28 13:50:00 La Ash ANTIGEN POC GLUCOSE 2019-05-28 11:30:00 Ad Quintero Meth odist HEMODIALYSIS 2019-05-28 11:17:52 La Ash Meth odist HC COMPLETE BLD COUNT 2019-05-28 10:05:00 Jigar Hernandez Yazidism W/AUTO DIFF XR CHEST 1 VW PORTABLE 2019-05-28 10:02:26 Jigar Hernandez on Yazidism CONSULT CARDIAC REHAB 2019-05-28 09:42:15 Jigar Hernandez Yazidism PHASE 1 ECG 12-LEAD 2019-05-28 09:42:01 Jigar Hernandez Meth odist BASIC METABOLIC PANEL 2019-05-28 09:41:00 Jigar Hernandez Yazidism MAGNESIUM LEVEL 2019-05-28 09:41:00 Jigar Hernandez Meth odist PHOSPHORUS LEVEL 2019-05-28 09:41:00 Jigar Hernandez Met hodist IONIZED CALCIUM 2019-05-28 09:41:00 Jigar Hernandez Meth odist PROTHROMBIN TIME WITH INR 2019-05-28 09:41:00 Jigar Hernandezton Yazidism PARTIAL THROMBOPLASTIN 2019-05-28 09:41:00 Jigar Hernandez on Yazidism TIME (PTT) TYPE AND SCREEN 2019-05-28 09:41:00 Jigar Hernandez odist ESTIMATED GFR 2019-05-28 09:41:00 Jigar Hernandez Meth odist HEMOGLOBIN A1C 2019-05-28 09:41:00 Jigar Hernandez Meth odist POC GLUCOSE 2019-05-28 09:39:00 Ad Quintero Meth odist Plan of Care Planned Activity Planned Date Details Comments Source Future Scheduled 2019-12-13 INFLUENZA VACCINE [place] [facility] Test 00:00:00 [...] Facility Department ID 2019-07-18 Inpatient C JOANN Aaron RAD [id number] [facility] 15:02:00 [facility] 2019-05-28 2019-06-09 Inpatient [facility] [id number] [place] 00:00:00 00:00:00 TREY [address] 2019-06-01 2019-06-01 Outpatient JOHNATHAN [facility] 084 [id number] [place] 00:00:00 00:00:[address] 2019-06-01 2019-06-01 Outpatient SAP[facility]IRE [facility] [id number] [place] 00:00:00 00:00:[address] 2019-03-22 2019-03-22 Out[facility] [id number] [facility] 09:45:00 09:45:00 [facility] Clinics Results Test Description Test Time Test Comments Results Result Comments Source GLUBED 2019-08-30 17:19:00 Test Item Value Reference Range Interpretation Comme nts GLUBED (test code = GLUBED) 175 MG/DL 70-110 H Performed by certified swiss type screw machine operator at [facility] Coronavirus 2018 nCoV [id number] 14:30:00 Test Item Value Reference Range Interpretation Comments Coronavirus 2018 Negative Negative Negative re sults should be nCoV Bedside (test treated a s presumptive and, code = ifinconsistent with COVNONPUIBED) clinical signs and symptoms or necessaryfor patient management, matilde uld be tested with an alternativemole cular assay. Negative result s do not preclude PNAR-[id number]-6bztxj tion and should not be u sed as the sole basis forp atient management deci sions. Negative result s should beconsidered in the context of a patient's recent exposures,histo ry, presence of clinical sig ns and symptoms consis tentwith COVID-19. [id number] 12:08:00 Test Item Value Reference Range Interpretation Comments GLUBED (test code = 204 MG/DL 70-110 H Performe d by certified GLUBED) swiss type screw machine operator at [facility] [id number] 08:21:00 Test Item Value Reference Range Interpretation Comments GLUBED (test code = 128 MG/DL 70-110 H Performe d by certified GLUBED) swiss type screw machine operator at [facility] [id number] 20:23:00 Test Item Value Reference Range Interpretation Comments GLUBED (test code = 315 MG/DL 70-110 H Performe d by certified GLUBED) swiss type screw machine operator at [facility] [id number] 16:00:00 Test Item Value Reference Range Interpretation Comments GLUBED (test code = 189 MG/DL 70-110 H Performe d by certified GLUBED) swiss type screw machine operator at [facility] ACUTE HEPATITIS [id number] 13:28:00 Test Item Value Reference Range Interpretation Comments AB HEPATITIS A IGM (test NON REACTIVE INDEX NON REACT. code = HAVMAB) AG HEPATITIS B SURFACE NON REACTIVE INDEX NonReactive (test code = HBSAG) AB HEPATITIS B CORE IGM NON REACTIVE INDEX NON REACT. (test code = HBCMAB) AB HEPATITIS C (test code NON REACTIVE INDEX NON REACT. = HCVAB) ACUTE HEPATITIS [id number] 13:24:00 Test Item Value Reference Range Interpretation Comments AB HEPATITIS A IGM (test INDEX NON REACT. code = HAVMAB) AG HEPATITIS B SURFACE NON REACTIVE INDEX NonReactive (test code = HBSAG) AB HEPATITIS B CORE IGM NON REACTIVE INDEX NON REACT. (test code = HBCMAB) AB HEPATITIS C (test code NON REACTIVE INDEX NON REACT. = HCVAB) ACUTE HEPATITIS [id number] 12:57:00 Test Item Value Reference Range Interpretation Comments AB HEPATITIS A IGM (test INDEX NON REACT. code = HAVMAB) AG HEPATITIS B SURFACE NON REACTIVE INDEX NonReactive (test code = HBSAG) AB HEPATITIS B CORE IGM INDEX NON REACT. (test code = HBCMAB) AB HEPATITIS C (test code INDEX NON REACT. = HCVAB) [id number] 12:51:00 Test Item Value Reference Range Interpretation Comments GLUBED (test code = 195 MG/DL 70-110 H Performe d by certified GLUBED) swiss type screw machine operator at [facility] [id number] 08:40:00 Test Item Value Reference Range Interpretation Comments GLUBED (test code = 101 MG/DL 70-110 N Performe d by certified GLUBED) swiss type screw machine operator at [facility] [id number] 20:21:00 Test Item Value Reference Range Interpretation Comments GLUBED (test code = 169 MG/DL 70-110 H Performe d by certified GLUBED) swiss type screw machine operator at [facility] [id number] 17:38:00 Test Item Value Reference Range Interpretation Comments GLUBED (test code = 135 MG/DL 70-110 H Performe d by certified GLUBED) swiss type screw machine operator at [facility] [id number] 06:12:00 Test Item Value Reference Range Interpretation Comments GLUBED (test code = 136 MG/DL 70-110 H Performe d by certified GLUBED) swiss type screw machine operator at [facility] [id number] 06:12:00 Test Item Value Reference Range Interpretation Comments GLUBED (test code = 128 MG/DL 70-110 H Performe d by certified GLUBED) swiss type screw machine operator at [facility] B-TYPE NATRIURETIC [id number] 21:19:00 Test Item Value Reference Range Interpretation Comments B-TYPE NATRIURETIC PEPTIDE (test 583.7 PG/ML 0-100 H code = BNP) CBC W/AUTO [id number] 20:47:00 Test Item Value Reference Range Interpretation [...] MANUAL DIFF REQUIRED (test code NO = MDIFF) - CT NECK W/O [id number] 20:05:00 Name: ANDREA GARIBAY [facility] : 1940 Age/S: 79 / M [address] [place] [address] Unit #: [id number] Loc: [place], [place] Phys: Andrew Velez MD Acct: [id number] Dis Date: Status: REG ER PHONE #: [phone] Exam Date: 08/27/20191943 FAX #: [phone] Reason: neck swelling EXAMS: CPTCODE: [id number] CT NECK W/O CONTRAST 92798 Clinical Indication: Neck swelling; Comparison: None Technique: [...] PAGE 1 Signed Report (CONTINUED) Name: ANDREA GARIBAY [facility] : 1940 Age/S: 79 / M [address] [place] [address] U nit #: [id number] Loc: [place] [address] Phys: Andrew Velez MD Acct: [id number] Dis Date: Status: REG ER PHONE #: [phone] Exam Date: 08/27/20191943 FAX #: [phone] Reason: neck swelling EXAMS: CPT CODE: [id number] CT NECK W/O CONTRAST 94309 <Continued> of the mandibular teeth to suggest [...] in position. 3. Right maxillary sinusitis. SL: NELSON at 2005 Reported and signed by: Luna Jimenez M.D. CC: Andrew Velez MD Technologist:Priscilla Restrepo RT(R)(CT) CTDI: DLP: Trnscb Date/Time: 08/27/2019(2004) [id number] Orig Print D/T: S: 08/27/2019 (2008) PAGE 2 Signed ReportBASIC METABOLIC [id number] 19:20:00 Test Item Value Reference Range Interpretation [...] 8.7 mg/dL 8.0-10.5 N CA) HEPATIC FUNCTION [id number] 19:20:00 Test Item Value Reference Range Interpretation [...] 127 IUnit/L 20-125 H code = ALKP) [id number] 19:20:00 Test Item Value Reference Range Interpretation Comments LIPASE (test code = LIP) 259 IUnit/L 73-393 N [id number] 19:20:00 Test Item Value Reference Range Interpretation [...] may ana y by method. BASIC METABOLIC [id number] 19:19:00 Test Item Value Reference Range Interpretation [...] code = CA) mg/dL 8.0-10.5 HEPATIC FUNCTION [id number] 19:19:00 Test Item Value Reference Range Interpretation Comments TOTAL PROTEIN (test code = PROT) g/dL 6.4-8.2 ALBUMIN (test code = ALB) g/dL 3.4-5.0 BILIRUBIN TOTAL (test code = BILT) MG/DL <1.5 BILIRUBIN DIRECT (test code = BILD) MG/DL 0.0-0.30 SGOT/AST (test code = AST) IUnit/L 15-37 SGPT/ALT (test code = ALT) IUnit/L 15-65 ALKALINE PHOSPHATASE TOTAL (test IUnit/L 20-125 code = ALKP) [id number] 19:19:00 Test Item Value Reference Range Interpretation Comments LIPASE (test code = LIP) IUnit/L 73-393 [id number] 19:19:00 Test Item Value Reference Range Interpretation [...] y by method. - XR CHEST 1 [id number] 18:26:00 FAX: Andrew Velez MD [phone] [place]: St: REG Name: ANDREA GARIBAY [facility] : 1940 Age/S: 79/M [address] [place] [address] Blvd Unit#: [id number] Loc: G.ERS[address] [place] [address] Phys: Andrew Velez MD Acct: [id number] Dis Date: Status: REG ER PHONE #: [phone] Exam Date: 08/27/20191811 FAX #: [phone] Reason: SOB EXAMS: CPT CODE: [id number] XR CHEST 1 V 60781 Portable single view AP chest INDICATION: Shortness [...] ElectronicallySigned by Estelita Raza on 08/27/2019 at 1826 Reported and signed by: Cliff Raza M.D. CC: Andrew Velez MD Technologist: RT Rivera(R) Trnscrd Date/Time/By: 08/27/2019 (1825) : By: [email or web address] Orig Print D/T: S: 08/27/2019 (1828) PAGE 1 Signed [id number] 12:06:00 Test Item Value Reference Range Interpretation Comments GLUBED (test code = 174 MG/DL 70-110 H Performe d by certified GLUBED) swiss type screw machine operator at [facility] [id number] 08:04:00 Test Item Value Reference Range Interpretation Comments GLUBED (test code = 177 MG/DL 70-110 H Performe d by certified GLUBED) swiss type screw machine operator at [facility] [id number] 21:17:00 Test Item Value Reference Range Interpretation Comments GLUBED (test code = 231 MG/DL 70-110 H Performe d by certified GLUBED) swiss type screw machine operator at [facility] [id number] 17:24:00 Test Item Value Reference Range Interpretation Comments GLUBED (test code = 123 MG/DL 70-110 H Performe d by certified GLUBED) swiss type screw machine operator at [facility] BASIC METABOLIC [id number] 15:59:00 Test Item Value Reference Range Interpretation [...] 8.1 mg/dL 8.0-10.5 N CA) CBC W/AUTO [id number] 15:41:00 Test Item Value Reference Range Interpretation [...] DIFF REQUIRED (test NO code = MDIFF) [id number] 12:16:00 Test Item Value Reference Range Interpretation Comments GLUBED (test code = 154 MG/DL 70-110 H Performe d by certified GLUBED) swiss type screw machine operator at [facility] HGBA1C%2019-07-28 11:41:00 Test Item Value Reference Range Interpretation Comments HGBA1C% (test code = HGBA1C%) 5.3 %A1C 4.8-6.0 N COMMENTS: use existing specimenCBC W/AUTO [id number] 10:42:00 Test Item Value Reference Range Interpretation [...] (test NO code = MDIFF) ACUTE HEPATITIS [id number] 08:09:00 Test Item Value Reference Range Interpretation [...] COMMENTS: At start of hemodialysisAB HEPATITIS B [id number] 08:09:00 Test Item Value Reference Range Interpretation Comments AB HEPATITIS B < 3.1 mIU/mL Immunity>9.9 L Status of I mmunity SURFACE (test code = HBSAB) Anti-HBs Level --- I ncons istent with Imm unity 0.0 - 9.9Consis tent with Immunity >9.9Performed A t: HD [facility] [address] [id number] Robi Swartz MD Ph:[phone] COMMENTS: At start of ayneyekwlkhiQKILUV2837-51-96 07:15:00 Test Item Value Reference Range Interpretation Comments GLUBED (test code = 131 MG/DL 70-110 H Performe d by certified GLUBED) swiss type screw machine operator at [facility] [id number] 20:07:00 Test Item Value Reference Range Interpretation Comments GLUBED (test code = 199 MG/DL 70-110 H Performe d by certified GLUBED) swiss type screw machine operator at [facility] [id number] 16:34:00 Test Item Value Reference Range Interpretation Comments GLUBED (test code = 196 MG/DL 70-110 H Performe d by certified GLUBED) swiss type screw machine operator at [facility] - XR FLUOROSCOPY 0-60 [id number] 16:12:00 FAX: Davie Courtney [phone] [place]: St: ADM FAX: Jesus Spencer [phone] Name: ANDREA GARIBAY [facility] : 1940 Age/S: 79/M [address] [place] [address] Unit #: [id number] Loc: G.5529 [place] [address] Phys: Alexandr Kwon MD Acct: [id number] Dis Date: Status: ADM IN PHONE #: [phone] Exam Date: 07/27/2019 113 FAX #: [phone] Reason: LT AV GRAFT MALFUNCTION EXAMS: CPT CODE: [id number] XR FLUOROSCOPY 0-60 MIN 19408 Intraprocedural fluoroscopy was provided by the Department of Radiology. Any images obtained were interpreted by the surgeon intraoperatively. FLUOROSCOPY TIME: 1 minute 21 seconds REFERENCE AIR KERMA : 15.0 mGy SL: [id number] at 1612 Reported and signed by: Torrey Yan M.D. CC: Davie Lee MD; Alexandr Kwon MD Technologist: RT Trent(R) Trnscrd Date/Time/By: 07/27/2019 (161) : By: Ruth Orig Print D/T: S: 07/27/2019 (1615) PAGE 1 Signed [id number] 07:36:00 Test Item Value Reference Range Interpretation Comments GLUBED (test code = 151 MG/DL 70-110 H Performe d by certified GLUBED) swiss type screw machine operator at [facility] [id number] 20:35:00 Test Item Value Reference Range Interpretation Comments GLUBED (test code = 170 MG/DL 70-110 H Performe d by certified GLUBED) swiss type screw machine operator at [facility] [id number] 16:59:00 Test Item Value Reference Range Interpretation Comments GLUBED (test code = 150 MG/DL 70-110 H Performe d by certified GLUBED) swiss type screw machine operator at [facility] ACUTE HEPATITIS [id number] 14:02:00 Test Item Value Reference Range Interpretation [...] COMMENTS: At start of hemodialysisAB HEPATITIS B [id number] 14:02:00 Test Item Value Reference Range Interpretation Comments AB HEPATITIS B SURFACE (test code = HBSAB) COMMENTS: At start of hemodialysisACUTE HEPATITIS [id number] 13:40:00 Test Item Value Reference Range Interpretation Comments AB HEPATITIS A IGM (test INDEX NON REACT. code = HAVMAB) AG HEPATITIS B SURFACE NON REACTIVE INDEX NonReactive (test code = HBSAG) AB HEPATITIS B CORE IGM INDEX NON REACT. (test code = HBCMAB) AB HEPATITIS C (test code INDEX NON REACT. = HCVAB) COMMENTS: At start of hemodialysisAB HEPATITIS B [id number] 13:40:00 Test Item Value Reference Range Interpretation Comments AB HEPATITIS B SURFACE (test code = HBSAB) COMMENTS: At start of hemodialysis- DUP LE ART UNI/[id number] 11:49:00 Name: ANDREA GARIBAY [facility] Berenice Ann : 1940 Age/S: 79 / M [address] [place], [place] [address]vd Unit #: [id number] Loc: Cem [id number] Phys: Alexandr Kwon MD Acct: [id number] Dis Date: Status: ADM IN PHONE #: [phone] Exam Date: 07/26/2019 1032 FAX #: [phone] Reason: right foot non-healing wound EXAMS: CPTCODE: [id number] DEREJE LE ART UNI/LTD 23674 RIGHT LOWER EXTREMITY ARTERIAL DOPPLER 07/26/2019 AT 1013 HOURS. CLINICAL HISTORY: Nonhealing rightfoot wound. COMPARISONS: None relevant. FINDINGS: Duplex sonographic evaluation of the bilateral lower extremity arterial circulation was performed. RIGHT SIDE: Triphasic waveforms are seen in the right common femoral, superficial femoral and popliteal artery. Monophasic waveforms are seen in the right posterior tibialis and dorsalis pedis artery. PEAK SYSTOLIC VELOCITIES: QUALITY LIAISON: 97 cm/s Femoral artery: 101 cm/s Popliteal: 42 cm/s Posterior tibialis: 29 cm/s Dorsalis pedis artery: 12 cm/s. IMPRESSION: 1. Severe right trifurcation atherosclerosis. 2. Nearly 60% drop in peak systolic velocities between right femoral and popliteal artery with preserved popliteal triphasic waveforms. Suspect flow-limiting stenosis at distal popliteal level. SL: [id number] at 1149 Reported and signed by: Desean Gong M.D. CC: Davie Lee MD; Alexandr Kwon MD Technologist: Yessica Johnson RDMS(Garcia)(BR) Trnscb Date/Time: 07/26/2019 (9030) [email or web address] Orig Print D/T: S: 07/26/2019 (1153) Probe: PAGE 1 Signed [id number] 11:20:00 Test Item Value Reference Range Interpretation Comments GLUBED (test code = 161 MG/DL 70-110 H Performe d by certified GLUBED) swiss type screw machine operator at [facility] BASIC METABOLIC [id number] 08:33:00 Test Item Value Reference Range Interpretation [...] code = 8.3 mg/dL 8.0-10.5 N CA) [id number] 08:33:00 Test Item Value Reference Range Interpretation Comments MAGNESIUM (test code = MAG) 2.50 mg/dL 1.8-2.4 H [id number] 08:10:00 Test Item Value Reference Range Interpretation Comments GLUBED (test code = 172 MG/DL 70-110 H Performe d by certified GLUBED) swiss type screw machine operator at [facility] CBC W/AUTO [id number] 06:08:00 Test Item Value Reference Range Interpretation [...] REQUIRED (test NO code = MDIFF) PROTHROMBIN [id number] 05:27:00 Test Item Value Reference Range Interpretation Comments PROTHROMBIN TIME 13.4 SECONDS 9.3-12.9 H PATIENT (test code = PTP) INTERNATIONAL NORMAL 1.2 0.8-1.2 N TARGET RATIO (test code = INR BY IN DICATION INR) Indication INR1. Prophyl axis of venous thrombos is 2.0 - 3. 0 (orthopedic sadu morenita), Prophylaxis of venous thrombos is (other [...] Infarction (t o prevent recurre nt infarct). [id number] 22:48:00 Test Item Value Reference Range Interpretation Comments GLUBED (test code = 125 MG/DL 70-110 H Performe d by certified GLUBED) swiss type screw machine operator at [facility] - XR CHEST 1 [id number] 18:11:00 FAX: Davie Courtney [phone] [place]: St: ADM FAX: Jesus Spencer [phone] Name: ANDREA GARIBAY [facility] : 1940 Age/S: 79/M [address] [place] [address] Unit #: [id number] Loc: G.5529 [place] [address] Phys: Alexandr Kwon MD Acct: [id number] Dis Date: Status: ADM IN PHONE #: [phone] Exam Date: 07/25/2019 180 FAX #: [phone] Reason: Post Op EXAMS: CPT CODE: [id number] XR CHEST 1 V 24107 Portable single view AP chest INDICATION: Postop. [...] with mild bilateral atelectasis. SL: SG-H at 181 Reported and signed by: Cliff Raza M.D. CC: Davie Lee MD; Alexandr Kwon MD Technologist: RT Lizet(R) Trnscrd Date/Time/By: 07/25/2019 (1810) : By: [email or web address] Orig Print D/T: S: 07/25/2019 (1814) PAGE 1 Signed Report- XR FLUOROSCOPY 0-60 [id number] 17:51:00 FAX: Davie Courtney [phone] [place]: St: [facility] FAX: Jesus Spencer [phone] Name: ANDREA GARIBAY [facility] : 1940 Age/S: 79/M [address] [place] [address] Unit #: [id number] Loc: Sus[address] [place] [address] Phys: Alexandr Kwon MD Acct: [id number] Dis Date: Status: ADM IN PHONE #: [phone] Exam Date: 07/25/2019 1645 FAX #: [phone] Reason: MALFUNCTION LT ARM AV GRAFT EXAMS: CPT CODE: [id number] XR FLUOROSCOPY 0-60 MIN 36786 Fluoroscopic guidance was provided by the radiology [...] Trent(R) Trnscrd Date/Time/By: 07/25/2019 (1750) : By: [email or web address] Orig Print D/T: S: 07/25/2019 (9698) PAGE 1 Signed ReportCBC W/AUTO [id number] 15:22:00 Test Item Value Reference Range Interpretation [...] REQUIRED (test NO code = MDIFF) PLT [id number] 15:22:00 Test Item Value Reference Range Interpretation Comments PLATELET ESTIMATE (test code 140-175 THOUSAND ADEQUATE = PLTEST) PLATELET MORPHOLOGY (test LARGE PLATELETS code = PLTMORPH) PROTHROMBIN [id number] 09:45:00 Test Item Value Reference Range Interpretation [...] o prevent recurre nt infarct). THROMBOPLASTIN TIME [id number] 09:45:00 Test Item Value Reference Range Interpretation Comments THROMBOPLASTIN TIME 33.9 Seconds 25.0-39.5 N Ther apeutic PARTIAL (test code = Range: 50.4 - 88.3 PTT) Seconds Effective 07/27/2018 [id number] 09:37:00 Test Item Value Reference Range Interpretation Comments PHOSPHOROUS (test code = PHOS) 4.1 MG/DL 2.5-4.9 N [id number] 09:37:00 Test Item Value Reference Range Interpretation Comments MAGNESIUM (test code = MAG) 2.40 mg/dL 1.8-2.4 N COMPREHENSIVE METABOLIC [id number] 09:11:00 Test Item Value Reference Range Interpretation [...] TOTAL (test code = ALKP) COMPREHENSIVE METABOLIC [id number] 09:06:00 Test Item Value Reference Range Interpretation [...] IUnit/L 20-125 code = ALKP) CBC W/AUTO [id number] 09:04:00 Test Item Value Reference Range Interpretation [...] REQUIRED (test NO code = MDIFF) PLT [id number] 09:04:00 Test Item Value Reference Range Interpretation Comments PLATELET ESTIMATE (test code = THOUSAND ADEQUATE PLTEST) CBC W/AUTO [id number] 09:04:00 Test Item Value Reference Range Interpretation [...] REQUIRED (test NO code = MDIFF) PLT [id number] 09:04:00 Test Item Value Reference Range Interpretation Comments PLATELET ESTIMATE (test code = THOUSAND ADEQUATE PLTEST) POC [id number] 16:36:33 Test Item Value Reference Range Interpretation Comments POC glucose (test code = 238 mg/dL 65-99 H Ope rator Name: [id number]) Veena Sexton ice ID: [id number] able: [facility] Notified sheet catcher Interpretation (test Abnormal code = 02647-7) [facility] MethodistPartial thromboplastin time, umipsljhm9565-13-79 06:11:45 Test Item Value Reference Range Interpretation Comments PTT (test code = 52.8 23.0- 36.0 sec H PTT thera peutic range 94005-4) for unfractiona deshawn heparin is61.0- 112.0 seconds which corresponds to Anti-Xa0.3-0.7 U/ml. Lab Interpretation Abnormal (test code = 41822-7) [facility] MethodistCBC with platelet and eqxmaoegcijr6652-79-45 06:01:31 Test Item Value Reference Range Interpretation Comments WBC (test code = 90421-4) 11.21 4.50- 11.00 k/uL H RBC (test code = 95502-6) 3.04 m/uL 4.4-6 L HGB (test code = 718-7) 8.5 g/dL 14-18 L HCT (test code = 4544-3) 29.7 % 41-51 L MCV (test code = 787-2) 97.7 fL 82-100 MCH (test code = 785-6) 28.0 pg 27-34 MCHC (test code = 786-4) 28.6 g/dL 31-37 L RDW - SD (test code = 63.7 fL 37-55 H 71677-7) MPV (test code = 64126-5) 12.5 fL 8.8-13.2 Platelet count (test code 127 150- 400 k/uL L = 16140-3) Nucleated RBC (test code 0.00 /100 WBC = 98185-0) Neutrophils (test code = 78.6 % 39-69 H 96730-6) Lymphocytes (test code = 8.8 % 25-45 L 03868-3) Monocytes (test code = 10.9 % 0-10 H 80559-7) Eosinophils (test code = 1.1 % 0-5 53690-5) Basophils (test code = 0.2 % 0-1 43710-0) Immature granulocytes 0.4 % 0-1 "Immat ure (test code = 61845-3) granul ocytes" (promyelocytes, myelocytes, metamyelocytes) Lab Interpretation (test Abnormal code = 54814-4) [facility] MethodistXR Chest 1 Mispqtov0461-06-24 12:45:16Hm Interface, Radiology Results - 06/08/2019 12:48 PM CSTEXAMINATION: XR CHEST 1 PORTABLECLINICAL HISTORY: Abnormal examCOMPARISON: Multiple prior chest radiographs, most recently dated 06/05/2019.IMPRESSION:Technique: Single portable chest radiograph.Lines/tube: Unchanged tracheostomy and right-sided AICD.Cardiomediastinum: Unchanged cardiomegaly and aortic calcificationsLungs: Mildly improved retrocardiac opacity. Increased perihilar opacities bilaterally, which may be in part due to central venous congestion versus worsening infiltrate. Left lower lobe platelike atelectasis. No pleural effusion. No pneumothorax.Bones: Regional osseous structures appear stable.[id number] [facility] MethodistBasic metabolic [id number] 06:39:31 Test Item Value Reference Range Interpretation Comments Sodium (test code = 2951-2) 135 135- 148 mEq/L Potassium (test code = 2823-3) 4.2 3.5- 5.0 mEq/L Chloride (test code = 5-0) 97 98- 112 mEq/L L CO2 (test code = 2027-) 26 24- 31 mEq/L Anion gap (test code = 36313-3) 12@ANIO 7- 15 mEq/L BUN (test code = 3094-0) 31 mg/dL 8-23 H Creatinine (test code = 2160-0) 4.21 mg/dL 0.7-1.2 H Glucose (test code = 2345-7) 117 mg/dL 65-99 H Calcium (test code = 80091-8) 9.0 mg/dL 8.8-10.2 Lab Interpretation (test code = Abnormal 61820-7) [facility] MethodistMagnesium oxkjf4016-06-09 06:39:31 Test Item Value Reference Range Interpretation Comments Magnesium (test code = 96073-9) 2.3 mg/dL 1.6-2.4 [place] MethodistPhosphorus xcfcw8964-01-98 06:39:31 Test Item Value Reference Range Interpretation Comments Phosphorus (test code = 2777-1) 2.5 mg/dL 2.4-4.5 [place] MethodistEstimated [id number] 06:39:31 Test Item Value Reference Range Interpretation Comments Estimated GFR (test 14 mL/min/1.73 m2 Garcia Amita duran Units code = 5488) InterpretationG 1 >=90 Hannah l or highG2 60-89 Mildly decrease dG3a 45-59 Mil dly to moderately decr lgqamY9u 30-44 Moderately to s everely decreasedG4 15-29 Severe ly decreasedG5 <15 Kidney fina lureThe eGFR was calcul ated using the Chron ic Kidney Disease Epidemiology Collaboration ( CKD-EPI) equation. Interpretation is based on recommendati ons of the National Ki dney Foundation-Kidn ey Disease Outcome s Quality Initiat go (NKF-KDOQI) pub lished in 2013. Lab Interpretation Abnormal (test code = 61776-1) [facility] MethodistArterial blood sud5254-19-40 11:45:20 Test Item Value Reference Range Interpretation [...] 2708-6) Lab Interpretation (test code = Abnormal 16549-6) [facility] venous lower hbeouxoeh4364-67-78 08:10:00Interface, Radiology Results In - 06/07/2019 8:11 AM [facility] Vascular Ultrasound Laboratory Lower Extremity Venous R[address]koh[address]Name: GABBY GARIBAY.ID: [id number] .Date: 06/07/2019 Refer.MD: KIMBERLY KHANNA MD Exam Time: 4:51:00 AM Study Type:LE Venous Age: 1001/16/1940,79Y Sex: MALE Sonogrphr: Jamal Lira, BA, BS, RDMS, RVTPat. Stat.:Inpatient Room: [address] Tape Vol: ZENAIDA, CPT - 4: 84636 Echo Event ID:[id number] Order ID: [id number] Reason for Study:Evaluate for DVT. Patient has [...] thigh, medial to the femoral vessels, measuring bfufdaeugcqul61.4x6.2x,2.34cm FINDINGS: Signed 06/07/2019 08:10 Jb Yung MD, RPVIChristus [facility] keatqkaj3747-34-43 04:26:08 Test Item Value Reference Range Interpretation Comments WBC (test code = 52366-0) 16.21 4.50- 11.00 k/uL H RBC (test code = 70323-9) 3.35 m/uL 4.4-6 L HGB (test code = 718-7) 9.6 g/dL 14-18 L HCT (test code = 4544-3) 32.4 % 41-51 L MCV (test code = 787-2) 96.7 fL 82-100 MCH (test code = 785-6) 28.7 pg 27-34 MCHC (test code = 786-4) 29.6 g/dL 31-37 L RDW - SD (test code = 18929-2) 64.8 fL 37-55 H MPV (test code = 34499-7) 12.3 fL 8.8-13.2 Platelet count (test code = 132 150- 400 k/uL L 82148-9) Nucleated RBC (test code = 0.00 /100 WBC 05043-7) Lab Interpretation (test code = Abnormal 05278-0) [place] MethodistOccult blood, hflgk2087-46-11 20:16:15 Test Item Value Reference Range Interpretation Comments Occult blood, Negative for Specimen stool (test occult blood. InformationSpe cimen code = Source: StoolSp ecimen 2334-1) Site: Nonpreser nguyen [facility] MethodistComprehensive metabolic vlfna6465-81-39 04:23:36 Test Item Value Reference Range Interpretation Comments Sodium (test code = 136 135- 148 mEq/L 2951-2) Potassium (test code = 4.7 3.5- 5.0 mEq/L 2823-3) Chloride (test code = 96 98- 112 mEq/L L 2075-0) CO2 (test code = 2027-9) 25 24- 31 mEq/L Anion gap (test code = 15@ANIO 7- 15 mEq/L 19305-1) BUN (test code = 3094-0) 38 mg/dL 8-23 H Creatinine (test code = 4.73 mg/dL 0.7-1.2 H 2160-0) Glucose (test code = 77 mg/dL 65-99 2345-7) Calcium (test code = 8.7 mg/dL 8.8-10.2 L 64674-3) Protein (test code = 6.4 g/dL 6.3-8.3 [place]ron[place] 9994.6-7.0 2885-2) g/dL1 lyrf3435.4-7.6 g/dL7 months-0mqkf771 .1- 7.3 g/dL1-2 ylerp756.6-7.5 g/dL>3 hyopd414.0-8.0 g/pM66-2870365. 3-8 .3 g/dL Albumin (test code = 2.4 g/dL 3.5-5 L 1751-7) A/G ratio (test code = 0.6 0.7-3.8 L 1759-0) Alkaline phosphatase 77 U/L 40-129 (test code = 6768-6) AST (test code = 1920-8) 10 U/L 10-50 ALT (test code = 1742-6) 15 U/L 5-50 Total bilirubin (test 0.5 mg/dL 0-1.2 code = 1975-2) Lab Interpretation (test Abnormal code = 88860-5) Percy Cerda 12 zxbt6433-77-49 10:46:09 Test Item Value Reference Range Interpretation Comments Ventricular rate (test 115 code = 253) Atrial rate (test code 115 = 255) RI interval (test code 114 = 266) QRSD [...] 01-JUN-2019 11:32,-No significant change was found-- Percy Antonio RBC, 2 Bvkqm1920-41-23 20:18:00 Test Item Value Reference Range Interpretation Comments Product name (test code Apheresis Red Cell AS3 = 25) #2 LR Unit number (test code [id number] = [id number]) Product code (test code B9974S12 = 3092) Dispense status (test Transfused code = 24) Blood expiration date (test code = 302) Blood type code (test 5100 code = 308) Blood type (test code = O POSITIVE 1314) Compatibility (test Compatible code = 6400) Percy Aldanaar tqfbut5521-17-04 09:08:06 Test Item Value Reference Range Interpretation Comments Platelet slide review (test code Trell slt decr = 88379-2) Anisocytosis (test code = 702-1) Moderate Polychromasia (test code = Moderate 82923-1) Ovalocytes (test code = 774-0) Moderate [facility] MethodistAnti Xa, wyewoqdretzian1975-08-30 00:22:06 Test Item Value Reference Range Interpretation Comments Anti Xa, unfractionated <0.10 0.3-0.7 L Ther apeutic Range: (test code = 3274-8) 0.30 - 0.70 U/mL Lab Interpretation (test Abnormal code = 76539-0) [place] MethodistProthrombin time with YBU5294-77-82 00:09:41 Test Item Value Reference Range Interpretation Comments Prothrombin time (test 14.8 11.5- 14.5 sec H code = 5902-2) INR (test code = 1.2 The Interna tional 50277-5) Normalized Rati o (INR) is a therapeuti c monitoring tool for patients who ar e stable on oral anticoagulant t herapy. An INR of 2.0-3 .0 is suggested for d eep vein thrombosis/pulm onary embolism. Lab Interpretation Abnormal (test code = 53772-4) [place] MethodistRespiratory pathogen dlhaf8784-47-24 22:13:14 Test Item Value Reference Interpretation Comments Range Respiratory Positive for Influenza A Speci men pathogen panel A/H1-2008 [facility] ecimen (test code = virus Gris rce: 2148) ----Negative for all [facility] ecimen Site: other pathogens Right tested:Negative for AdenovirusNegative for Coronavirus JGP4Irszfeer for Coronavirus HS86Cikayldu for Coronavirus 229ENegative for Coronavirus VQ03Rylfadol for Human MetapneumovirusNegative for Rhinovirus/EnterovirusNe gative for Influenza ANegative for Influenza A/P8Bdlremys for Influenza A/T4Rvthplxz for Influenza BNegative for Parainfluenza Virus 1Negative [...] assay. Lab Abnormal Interpretation (test code = 34913-8) [facility] MethodistCT Angiogram Pe Dacux0529-12-75 20:01:02 Interface, Radiology Results Incoming - 06/03/2019 8:04 PM CSTEXAMINATION:CT ANGIOGRAM PE [...] Kerr, at 8:00 PM, and she expressed understandingH[facility]-3JR25640BTTaauqbl QhxeozwgnV-ruhrk9692-29-21 15:17:52 Test Item Value Reference Range Interpretation Comments D-dimer (test code = 1.73 0.00- 0.40 ug/mL H Uni ts are ug/ml 96310-9) FEU Fibrinogen Equivalent Unit .When combined with [...] malignancies. Lab Interpretation Abnormal (test code = 15687-5) [facility] MethodistType and ulgskr7080-10-22 09:53:00 Test Item Value Reference Range Interpretation Comments ABO grouping (test code = 883-9) O Rh type (test code = 62729-0) POS Antibody screen (gel) (test code = NEG 890-4) [place] MethodistKappa lambda free light chain with zexpm6370-16-32 07:19:49 Test Item Value Reference Range Interpretation Comments [place] light chain (test code = 289.08 mg/L 3.3-19.4 H 83789-2) Lambda light chain (test code = 143.97 mg/L 5.7-26.3 H 40552-0) [place] lambda ratio (test code = 2.01 0.26-1.65 H 13871-1) Lab Interpretation (test code = Abnormal 78305-6) [place] MethodistCv pyp scan for cardiac bjicumtwjmv0500-32-09 15:40:00 Interface, Radiology Results In - 06/01/2019 3:40 PM [facility] Nuclear Cardiology and Cardiac CT [address] [place] [address] PYP Cardiac Amyloidosis Imaging ReportPat.Name: GABBY GARIBAY Pat.ID: [id number] .Date: 06/01/2019 Refer.MD: AD QUINTERO MD Exam Time: 11:24:00 AM Study Type:PYP Cardiac Amyloidosis ImagingHeight: 71in Weight: 266lb BSA: 2.38 m2 Age: 1001/16/1940,79Y Sex: MALE Nuclear Tech:ALLIE Tavares, SAE(N)Pat. Stat.:Inpatient NuclearEvent ID:[id number] Order ID: [id number] Reason for Study:R/O TTR amyloid History / [...] for transthryetinamyloidosis (ATTR). -------FINDINGS: Signed 06/01/2019 03:40 Jesse SmithistT3, [id number] 08:33:03 Test Item Value Reference Range Interpretation Comments T3, free (test code = 1.1 pg/mL 2.4-4.2 L REFERE NCE INTERVAL: 5404-9) Triiodothyronin e, Free (Free T3)A ccess complete set of age- and/or gender-specific reference inter vals for this test i n the [facility] Test Directory (Applaud).P erfor med by [employer],[address] [place] [address] srd .[employer], Jared Foster MD, Dorothy still. Director Lab Interpretation (test Abnormal code = 40391-6) [place] [facility] cardiac calcium rjucx0033-17-13 19:15:00Interface, Radiology Results In - 05/31/2019 7:15 PM [facility] Nuclear Cardiology and Cardiac CT [address] [place] [address] CT Calcium Scoring ReportPat.Name: GABBY GARIBAY Pat.ID: [id number] .Date: 05/31/2019 Refer.MD: AD QUINTERO MD Exam Time: 3:04:00 PM Study Type:CT Calcium Scoring Height: 71in Weight: 266lbBSA: 2.38 m2 Age: 1001/16/1940,79Y Sex: MALE HR: 92 bpm Nuclear Tech:Ayo Aviles, RT(NH)(CT), [facility]. Stat.:Inpatient Nuclear Event ID:[id number] Order ID: [id number] Reason for Study:Eval Aortic Valve Procedures: CT Flash mode Race: Black SUMMARY: Technique: Sequential 3mm CT cuts were obtained through the [facility] with ECG gating. Interactive imageviewing [...] at 3.0 cm. FINDINGS: -Signed 05/31/2019 07:15 PMBeny Weiss MDSt. [facility] Hospitalj[facility] MethodistEchocardiogram complete w contrast and 3D if [id number] 13:49:00Interface, Radiology Results In - 05/31/2019 1:49 PM [facility] Echocardiography Report [address] [place] [address] Pat.Name: GABBY GARIBAY Pat.ID: [id number].Date: 05/30/2019 Refer.MD: AD QUINTERO MD Exam Time: 6:00:00 PM Study Type:Routine Echo Height: 71in Weight: 305lb BSA: 2.53 m2 Age: 1001/16/1940,79Y Sex: MALE BP: 138/70 HR: 72 bpm Sonogrphr: EZRA Stock Pat. Stat.:Inpatient Room: T9674-Y Study Status:Final Echo Event ID:[id number] Order ID: [id number] Reason for Study:Aortic stenosis evaluation.History / Clinical:Congestive [...] of 10 mmHg. MEASUREME NTS: 2DParasternal Long Pomerene AoAn 2.5 cm LVPWd 1.2 cm Ao [...] bpm LVOT SVi 42ml/m2 Signed 05/31/2019 01:49 Lesley Rose M.D.[place] MethodistIonized [id number] 07:45:51 Test Item Value Reference Range Interpretation Comments pH (test code = 2753-2) 7.38 Ionized calcium (test code = 1.06 mmol/L 1.11-1.32 L ) Lab Interpretation (test code = Abnormal 61135-2) [place] YazidismHeparin PF4 antibody (IgG)2019-05-31 02:31:58 Test Item Value Reference Range Interpretation Comments Heparin PF4 Ab OD reading (test code 0.206 0.000-0.399 = 1500) Heparin PF4 Ab, IgG (test code = Negative Negative 78221-6) [place] [facility] duplex arterial lower pqmixcymt1793-10-50 21:50:00Interface, Radiology Results In - 05/31/2019 9:03 AM [facility] Vascular Diagnostic Laboratory Physiologic Arterial Leg Report [address] [address], [place] [address] [facility].Name: LANI GABBY Rhianna Pat.ID: [id number] .Date: 05/30/2019 Refer.MD: AD QUINTERO MD Exam Time: 2:32:00 PM Study Type:Physiologic Leg Age: 1001/16/1940,79Y Sex: MALE Sonogrphr: PAUL Herrera. Stat.:Inpatient Room: [facility]0905-A Tape Vol: RF, CPT - 4: 28256 Echo Event ID:[id number] Order ID: [id number] Reason for Study:Bilateral decreased pedal pulses. History of ESRD onHD via left AVFm CHFm AICD,aortic stenosis, cardiomyopathy, DMhypoxic respiratory failure, chronic trach, PAD.Procedures: Ankle/brachial pressures, Digit pressuresRace: B -----SUMMARY: ANKLE/BRACHIAL INDEX: RIGHT LEFT Brachial Artery Rqjjhotg481 mmHg AV-Fistula DP 0 mmHg 0 mmHg [...] FINDINGS: Signed 05/30/2019 9:50:00 PMMarcellus Yung MD, [facility] Methodist[facility] ankle brachial [id number] 21:50:00Interface, Radiology Results In - 05/30/2019 9:50 PM [facility] Vascular Diagnostic Laboratory Physiologic Arterial Leg Report [address] [place] [address] Pat.Name: GABBY GARIBAY Pat.ID: [id number] .Date: 05/30/2019 Refer.MD: AD QUINTERO MD Exam Time: 2:32:00 PM Study Type:Physiologic Leg Age: 1001/16/1940,79Y Sex: MALE Sonogrphr: Priti Recinos RVT Pat. Stat.:Inpatient Room: [address] Tape Vol: ,[facility] - 4: [address] Echo Event ID:[id number] Order ID: [id number] Reason for Study:Bilateral decreased pedal pulses. History of ESRD onHD via left AVFm CHFm AICD,aortic stenosis, cardiomyopathy, DMhypoxic respiratory failure, chronic trach, PAD.Procedures: Ankle/brachial pressures, Digit pressuresRace: B -----SUMMARY: ANKLE/BRACHIAL INDEX: RIGHT LEFT Brachial Artery Ngmkuvax411 mmHg AV-Fistula DP 0 mmHg 0 mmHg [...] FINDINGS: Signed 05/30/2019 09:50 PMMarcellus Yung MD, [facility] duplex arterial upper mewdguuuv9431-24-04 17:50:00Interface, Radiology Results In - 05/30/2019 5:50 PM [facility] Vascular Ultrasound Laboratory Upper Extremity Arterial Report [address] [address]Aye.Name: GABBY GARIBAY Pat.ID: [id number] .Date: 05/30/2019 Refer.MD: AD QUINTERO MD Exam Time: 3:21:00 PM Study Type:UE Arterial Age: 1001/16/1940,79Y Sex: MALE Sonogrphr: PAUL Herrera. Stat.:Inpatient Room: ST6145-X Tape Vol: RF, CPT - 4: [address]03[address]Nlzo Event ID:[id number] Order ID: [id number] Reason for Study:Bilateral armpain and swelling. History [...] FINDINGS:- Signed 05/30/2019 05:50 Elizabeth Yung MD, [facility] MsgvirevbTOO6271-14-80 12:55:52 Test Item Value Reference Range Interpretation Comments LDH (test code = 17812-2) 267 U/L 87-225 H Lab Interpretation (test code = Abnormal 25938-7) Percy ChanceManual isgienpuytzl7925-38-03 06:07:32 Test Item Value Reference Range Interpretation Comments Manual differential (test code = PERFORMED 41083-0) Neutrophils (test code = 79037-1) 81.0 % 39-69 H Lymphocytes (test code = 46628-7) 10.0 % 25-45 L Monocytes (test code = 02880-4) 8.0 % 0-10 Eosinophils (test code = 59469-2) 1.0 % 0-5 Basophils (test code = 02408-7) 0.0 % 0-1 Metamyelocytes (test code = 740-1) 0 % Promyelocytes (test code = 783-1) 0 % Platelet slide review (test code = Decreased A 31466-8) Anisocytosis (test code = 702-1) Moderate Polychromasia (test code = Moderate 39331-7) Tear drop cells (test code = Occasional 7791-7) Tam cells (test code = 7790-9) Moderate A Enlarged platelets (test code = Moderate A 92527-9) Lab Interpretation (test code = Abnormal 27182-6) Percy ChanceT4, evqj8416-10-24 01:47:34 Test Item Value Reference Range Interpretation Comments T4, free (test code = 3024-7) 0.7 ng/dL 0.9-1.7 L Lab Interpretation (test code = Abnormal 75513-1) Percy ChanceThyroid stimulating upxxkoq1497-70-31 01:47:34 Test Item Value Reference Range Interpretation Comments TSH (test code = 3016-3) 0.63 0.27- 4.20 uIU/mL Percy ChanceUric acid akvjx0330-04-31 01:19:56 Test Item Value Reference Range Interpretation Comments Uric acid (test code = 3084-1) 4.5 mg/dL 3.4-7 Percy ChanceHepatitis B surface qoesikg3171-03-53 16:11:47 Test Item Value Reference Range Interpretation Comments Hepatitis B surface Ag (test Non-reactive Non-reactive code = 5195-3) Percy ChanceHemoglobin [id number] 10:29:18 Test Item Value Reference Range Interpretation Comments Hemoglobin A1C (test 6.5 % 4-5.6 H HbA1c c utoffs for code = 46890-5) diagnosing diabetes:4.0% - 5.6% = normal5.7% - 6.4% = increased risk for diabetes (prediabetes)9> =6.5% = pdyxztze1Xbnk s for glycemic contro l (ADA 2016)< 7.0% Ta rget for non adults with dwight betes. More or less stringent targe ts may be appropriate for individual lui ents. <7.5% Target for Children and adolescents wit h type 1 diabetes. Lab Interpretation (test Abnormal code = 37229-9) Percy Chance
--- NOTE | 2019-12-30 18:03 | RAD REPORT ---
EXAM DESCRIPTION: RAD - Chest Single View - 12/30/2019 5:57 pm CLINICAL HISTORY: MALAISE Chest pain. COMPARISON: Chest Single View dated 11/28/2019; Chest Pa And Lat (2 Views) dated 11/02/2019; Chest Sin gle View dated 10/30/2019; Chest Single View dated 05/27/2019 FINDINGS: Portable technique limits examination quality. The lungs are grossly clear. The heart is mildly enlarged in size. Multi lead pacer/defibrillator dev ice is present.Tracheostomy tube tip is above the jamia. IMPRESSION: No acute intrathoracic process suspected.
[2019-12-30 18:06] LABS: Arterial Blood Carboxyhemoglob 2.3 % (0-1.5)
[2019-12-30] MEDS ORDERED: Caclcium Chloride 10% INJ SYR IV ONE (18:30)
[2019-12-30] MEDS ORDERED: NA CHLORIDE 0.9% 500 ML ONE (18:42)
[2019-12-30 20:26] LABS: Absolute Lymphocytes (CBC) 1.2 K/uL (0.7-4.9); Basophils % 0.8 % (0-1.3); Hematocrit 39.1 % (39.6-49.0); Lymphocytes % 9.9 % (15.3-44.8)
[2019-12-30 20:43] LABS: Protime INR 1.31
[2019-12-30 21:06] LABS: Albumin 1.3 g/dL (3.4-5.0); Alkaline Phosphatase 84 U/L (45-117); Amylase 30 U/L (25-115); BUN Blood Urea Nitrogen 15 mg/dL (7-18); Bicarbonate 19 mmol/L (21-32); Bilirubin Direct < 0.1 mg/dL (0-0.2); Bilirubin Total 0.4 mg/dL (0.2-1.0); CKMB Creatine Kinase MB < 1.0 ng/mL (0.3-3.6); Creatine Phosphokinase 30 U/L (39-308); Glucose Level 130 mg/dL (74-106); Lipase 125 U/L (73-393); Protein, Total 4.5 g/dL (6.4-8.2); Sodium Level 142 mmol/L (136-145); Troponin (Emerg Dept Use Only) 0.02 ng/mL (0.0-0.045)
[2019-12-30 21:07] LABS: ALT/SGPT < 6 U/L (12-78); AST/SGOT 18 U/L (15-37); Potassium 3.2 mmol/L (3.5-5.1)
[2019-12-30] MEDS ORDERED: CODEINE 30MG/APAP 300MG TAB ONE (21:19)
[2019-12-30 21:20] LABS: Anisocytosis 2+; Blood Morphology Comment NOTED (NOT SEEN); Platelet Estimate DECR; White Blood Cell Scan OK (OK)
[2019-12-30] MEDS ORDERED: VANCOMYCIN 1 GM/VIAL ONE (21:35)
[2019-12-30] MEDS ORDERED: CEFTRIAXONE/SWI 1gm 1 GM/10 ML SYR ONE (21:36)
[2019-12-30] MEDS ORDERED: NA CHLORIDE 0.9% 250 ML ONE (21:36)
[2019-12-30] MEDS ORDERED: METHYLPREDNISOLONE 40 MG INJ ONE (21:36)
[2019-12-30] MEDS ORDERED: CALCIUM GLUCONATE 1 GM IVPB 1 GM/50 ML BAG IV ONE (21:55)
[2019-12-30] MEDS ORDERED: POTASSIUM CL SA 10 MEQ TAB PO ONE (21:55)
--- NOTE | 2019-12-30 22:00 | ER ---
Nurse's Notes [facility] Name: Sergio Perez Age: 79 yrs Sex: Male : 1940 Arrival Date: 12/30/2019 Time: 17:39 Bed 5 Private MD: Diagnosis: Sepsis, unspecified organism;Hypocalcemia;Weakness Presentation: 12/29 17:40 Chief complaint: EMS states: HYPOTENSIVE, HYPERGLYCEMIC AND SOB FROM HOME. Coronavirus bp screen: At this time, the client does not indicate any symptoms associated with coronavirus-19. Ebola Screen: No symptoms or risks identified at this time. Initial Sepsis Screen: Does the patient meet any 2 criteria? Systolic BP < 90 mmHg. No. Patient's initial sepsis screen is negative. Does the patient have a suspected source of infection? No. Patient's initial sepsis screen is negative. Risk Assessment: Do you want to hurt yourself or someone else? Patient reports no desire to harm self or others. Onset of symptoms is unknown. Care prior to arrival: Glucose check: 235. 17:40 Method Of Arrival: EMS: [facility] bp 17:40 Acuity: KARLENE 2 bp Triage Assessment: 17:43 General: Appears distressed, uncomfortable, Behavior is cooperative, anxious. Pain: bp Denies pain. EENT: No deficits noted. Neuro: Level of Consciousness is awake, alert, lethargic, Oriented to person, place, time, situation. Cardiovascular: Rhythm is sinus rhythm. Respiratory: Reports shortness of breath. GI: No signs and/or symptoms were reported involving the gastrointestinal system. : No signs and/or symptoms were reported regarding the genitourinary system. Derm: No deficits noted. Musculoskeletal: No deficits noted. Historical: - Allergies: 17:43 SHELLFISH; bp 17:43 Iodine; bp - PMHx: 17:43 Anemia; CHF; COPD; Diabetes - NIDDM; Dialysis; M-W-F; ESRD; GERD; Gout; Hypertension; bp Pacemaker; with defib; - Immunization history:: Adult Immunizations unknown. - Social history:: Smoking status: Patient/guardian denies using tobacco. Screenin:46 Abuse screen: Denies threats or abuse. Denies injuries from another. Nutritional bp screening: No deficits noted. Tuberculosis screening: No symptoms or risk factors identified. Fall Risk None identified. Assessment: 17:46 General: SEE TRIAGE NOTE. bp 18:40 Reassessment: ALL CURRENT ORDERS COMPLETED, HYPOTENSION PARTIALLY RELIEVED. bp 19:15 General: Appears in no apparent distress. comfortable, Behavior is calm, cooperative. mg2 Pain: Denies pain. Neuro: Level of Consciousness is awake, alert, obeys commands, Oriented to person, place, time, situation. Cardiovascular: Capillary refill < 3 seconds Patient's skin is warm and dry. Respiratory: Airway is patent Respiratory effort is even, unlabored, Respiratory pattern is regular, symmetrical. Respiratory: c tracheostomy. GI: No signs and/or symptoms were reported involving the gastrointestinal system. : No signs and/or symptoms were reported regarding the genitourinary system. EENT: No signs and/or symptoms were reported regarding the EENT system. Derm: Skin is intact, is healthy with good turgor, Skin is normal. Musculoskeletal: Circulation, motion, and sensation intact. Capillary refill is > 3 seconds. 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 rv 21:15 Reassessment: PAIN NOTED. PROVIDER INFORMED AND ORDERED PAIN MEDICINE. mg2 23:04 Reassessment: Patient appears in no apparent distress at this time. Patient and/or mg2 family updated on plan of care and expected duration. Pain level reassessed. Patient is alert, oriented x 3, equal unlabored respirations, skin warm/dry/pink. meal served to the patient. Vital Signs: 17:40 BP 74 / 43; Pulse 92; Resp 20; Temp 98.9; Pulse Ox 95% ; bp 18:37 BP 66 / 40; Pulse 70; snw 18:37 BP 89 / 61; Pulse 77; snw 18:40 BP 89 / 61; Pulse 66; Resp 17; Pulse Ox 100% ; bp 19:17 BP 90 / 51; Pulse 61; Resp 18; Pulse Ox 100% on 2 lpm NC; mg2 19:57 BP 101 / 72; Pulse 65; Resp 16; Pulse Ox 100% ; rv 21:00 BP 94 / 51; Pulse 66; Resp 18; Pulse Ox 100% on 2 lpm NC; mg2 22:30 BP 102 / 57; Pulse 65; Resp 18; Pulse Ox 99% on 2 lpm NC; mg2 12/30 00:36 BP 98 / 65; Pulse 66; Resp 18; Temp 98.8; Pulse Ox 100% on 2 lpm NC; mg2 ED Course: 12/29 17:39 Patient arrived in ED. bp 17:43 Triage completed. bp 17:43 Arm band placed on. bp 17:45 Gracie Castorena FNP-C is PHCP. snw 17:45 Jhon Alva MD is Attending Physician. snw 17:46 Patient has correct armband on for positive identification. Bed in low position. Call bp light in reach. Side rails up X2. 17:47 Destin Santana, RN is Primary Nurse. bp 17:57 Chest Single View XRAY In Process Unspecified. EDMS 18:15 Pillow given. horticultural farm manager on. Pulse ox on. NIBP on. mh5 18:15 Missed attempt(s): 20 gauge in right hand. mh5 18:16 EKG done, by ED staff, reviewed by Gracie HENRIQUEZ. mh5 18:30 Inserted saline lock: 22 gauge in right hand, using aseptic technique. Blood collected. bp 20:43 Notified Nurse Practitioner and/or Physician Church Organist of a critical lab result(s), sg Lactate 2.2. 21:33 No provider procedures requiring assistance completed. Patient admitted, IV remains in mg2 place. 21:58 Garcia Salazar MD is Hospitalizing Provider. snw 22:39 Primary Nurse role handed off by Destin Santana, SHAI sg 23:03 Carlos Walker, SHAI is Primary Nurse. mg2 23:17 covid swab sent to lab for routine surveillance. mg2 Administered Medications: 18:30 Drug: NS 0.9% 500 ml Route: IV; Rate: bolus; Site: right wrist; iw 20:06 Follow up: Response: No adverse reaction; IV Status: Completed infusion; IV Intake: mg2 500ml 18:30 Drug: Calcium Chloride 10% 10 ml Route: IVP; Site: right wrist; snw 20:06 Follow up: Response: No adverse reaction mg2 21:15 Drug: Tylenol #3 (300 mg-30 mg) 1 tablet Route: PO; mg2 22:41 Follow up: Response: No adverse reaction mg2 21:31 Drug: Rocephin 1 grams Route: IV; Rate: calculated rate; Site: right wrist; mg2 22:41 Follow up: Response: No adverse reaction; IV Status: Completed infusion mg2 21:31 Drug: SOLU-Medrol 60 mg Route: IVP; Site: right wrist; mg2 22:41 Follow up: Response: No adverse reaction mg2 21:32 Drug: vancoMYCIN 1 grams Route: IVPB; Infused Over: 2 hrs; Site: right wrist; mg2 12/30 00:38 Follow up: Response: No adverse reaction; IV Status: Completed infusion; IV Intake: mg2 250ml 12/29 21:49 Drug: Calcium Gluconate 1 grams Route: IVPB; Infused Over: 60 mins; Site: right wrist; mg2 12/30 00:38 Follow up: Response: No adverse reaction; IV Status: Completed infusion; IV Intake: mg2 100ml 12/29 21:49 Drug: Potassium Chloride 20 mEq Route: PO; mg2 22:41 Follow up: Response: No adverse reaction mg2 Intake: 20:06 IV: 500ml; Total: 500ml. mg2 12/30 00:38 IV: 100ml; Total: 600ml. mg2 00:38 IV: 250ml; Total: 850ml. mg2 Outcome: 12/29 21:59 Decision to Hospitalize by Provider. snw 12/30 00:47 Admitted to Med/surg accompanied by nurse, via stretcher, room 214, with oxygen, with mg2 chart, Report called to SHIA Zhang Condition: stable Instructed on the need for admit, Demonstrated understanding of instructions. 00:49 Patient left the ED. mg2 Signatures: Dispatcher [employer] EDMS Cliff Leigh, RN Gracie Sanches, CROZER OPERATOR-C CROZER OPERATOR-Csnw Chasidy Mason RN RN Ava Guajardo [facility] Destin Santana RN RN bp Carlos Walker RN RN mg2 Hesham Burroughs RN RN rv Corrections: (The following items were deleted from the chart) 12/29 23:18 23:17 covid swab sent to lab mg2 mg2
--- NOTE | 2019-12-30 22:00 | EDPHYS ---
Physician Documentation [facility] Name: Sergio Perez Age: 79 yrs Sex: Male : 1940 Arrival Date: 12/30/2019 Time: 17:39 Bed 5 Private MD: ED Physician Jhon Alva HPI: 12/29 18:43 This 79 yrs old Black Male presents to ER via EMS with complaints of LETHARGY AND snw FATIGUE. 18:43 Onset: The symptoms/episode began/occurred acutely. Associated signs and symptoms: The snw patient has no apparent associated signs or symptoms. Modifying factors: The patient symptoms are alleviated by nothing. It is unknown whether or not the patient has had similar symptoms in the past. It is unknown whether or not the patient has recently seen a physician, PCP is Dr. Salazar. Historical: - Allergies: 17:43 SHELLFISH; bp 17:43 Iodine; bp - PMHx: 17:43 Anemia; CHF; COPD; Diabetes - NIDDM; Dialysis; M-W-F; ESRD; GERD; Gout; Hypertension; bp Pacemaker; with defib; - Immunization history:: Adult Immunizations unknown. - Social history:: Smoking status: Patient/guardian denies using tobacco. ROS: 18:42 Eyes: Negative for injury, pain, redness, and discharge, ENT: Negative for injury, snw pain, and discharge, Neck: Negative for injury, pain, and swelling, Cardiovascular: Negative for chest pain, palpitations, and edema, Respiratory: Negative for shortness of breath, cough, wheezing, and pleuritic chest pain, Abdomen/GI: Negative for abdominal pain, nausea, vomiting, diarrhea, and constipation, Back: Negative for injury and pain, : Negative for injury, bleeding, discharge, and swelling, MS/Extremity: Negative for injury and deformity, Skin: Negative for injury, rash, and discoloration, Neuro: Negative for headache, weakness, numbness, tingling, and seizure. 18:42 Constitutional: Positive for body aches, malaise. Exam: 18:42 Head/Face: Normocephalic, atraumatic. Eyes: Pupils equal round and reactive to light, snw extra-ocular motions intact. Lids and lashes normal. Conjunctiva and sclera are non-icteric and not injected. Cornea within normal limits. Periorbital areas with no swelling, redness, or edema. 18:42 ENT: Nares patent. No nasal discharge, no septal abnormalities noted. Tympanic membranes are normal and external auditory canals are clear. Oropharynx with no redness, swelling, or masses, exudates, or evidence of obstruction, uvula midline. Mucous membranes moist. 18:42 Chest/axilla: Normal chest wall appearance and motion. Nontender with no deformity. No lesions are appreciated. Cardiovascular: Regular rate and rhythm with a normal S1 and S2. No gallops, murmurs, or rubs. Normal PMI, no JVD. No pulse deficits. Respiratory: Lungs have equal breath sounds bilaterally, clear to auscultation and percussion. No rales, rhonchi or wheezes noted. No increased work of breathing, no retractions or nasal flaring. Abdomen/GI: Soft, non-tender, with normal bowel sounds. No distension or tympany. No guarding or rebound. No evidence of tenderness throughout. Back: No spinal tenderness. No costovertebral tenderness. Full range of motion. Skin: Warm, dry with normal turgor. Normal color with no rashes, no lesions, and no evidence of cellulitis. MS/ Extremity: Pulses equal, no cyanosis. Neurovascular intact. Full, normal range of motion. Neuro: Awake and alert, GCS 15, oriented to person, place, time, and situation. Cranial nerves II-XII grossly intact. Motor strength 5/5 in all extremities. Sensory grossly intact. Cerebellar exam normal. Normal gait. 18:42 Constitutional: The patient appears awake, frail, listless. 18:42 Neck: Trachea: tach with mild thick secretions around tube. Vital Signs: 17:40 BP 74 / 43; Pulse 92; Resp 20; Temp 98.9; Pulse Ox 95% ; bp 18:37 BP 66 / 40; Pulse 70; snw 18:37 BP 89 / 61; Pulse 77; snw 18:40 BP 89 / 61; Pulse 66; Resp 17; Pulse Ox 100% ; bp 19:17 BP 90 / 51; Pulse 61; Resp 18; Pulse Ox 100% on 2 lpm NC; mg2 19:57 BP 101 / 72; Pulse 65; Resp 16; Pulse Ox 100% ; rv 21:00 BP 94 / 51; Pulse 66; Resp 18; Pulse Ox 100% on 2 lpm NC; mg2 22:30 BP 102 / 57; Pulse 65; Resp 18; Pulse Ox 99% on 2 lpm NC; mg2 12/30 00:36 BP 98 / 65; Pulse 66; Resp 18; Temp 98.8; Pulse Ox 100% on 2 lpm NC; mg2 Procedures: 12/29 18:39 Peripheral line: by aseptic technique a peripheral line was placed in the right thumb. snw MDM: 18:38 Data reviewed: vital signs, nurses notes. Data interpreted: Pulse oximetry: on room air snw is 95 %. Interpretation: acceptable. Counseling: I had a detailed discussion with the patient and/or guardian regarding: the historical points, exam findings, and any diagnostic results supporting the discharge/admit diagnosis. 18:44 Patient medically screened. snw 21:16 Physician consultation: A Martin CHOWDHURY was called at 21:17, was contacted at 21:17, snw regarding admission, to the telemetry unit. would like medications started, Rocephin, Solumedrol. 21:59 ED course: pt with increased vocalization, feeling better, will write admission orders..snw 12/29 17:46 Order name: Urine Culture snw 12/29 17:46 Order name: ABG; Complete Time: 18:36 snw 12/29 17:46 Order name: T\T\S; Complete Time: 21:40 snw 12/29 17:46 Order name: Amylase, Serum; Complete Time: 21:09 snw 12/29 17:46 Order name: Basic Metabolic Panel; Complete Time: 21:09 snw 12/29 17:46 Order name: Blood Culture Adult (2) snw 12/29 17:46 Order name: CBC with Diff; Complete Time: 21:22 snw 12/29 17:46 Order name: Ckmb; Complete Time: 21:09 snw 12/29 17:46 Order name: CPK; Complete Time: 21: snw 12/29 17:46 Order name: Lactate; Complete Time: 20:48 snw 12/29 17:46 Order name: LFT's; Complete Time: 21:09 snw 12/29 17:46 Order name: Lipase; Complete Time: 21:09 snw 12/29 17:46 Order name: Procalcitonin; Complete Time: 21:08 snw 12/29 17:46 Order name: Protime (+inr); Complete Time: 20:48 snw 12/29 17:46 Order name: Ptt, Activated; Complete Time: 20:48 snw 12/29 17:46 Order name: Troponin (emerg Dept Use Only); Complete Time: 21:09 snw 12/29 17:46 Order name: Urine Microscopic Only snw 12/29 17:46 Order name: Chest Single View XRAY; Complete Time: 18:08 snw 12/29 17:46 Order name: Accucheck; Complete Time: 18:42 snw 12/29 21:20 Order name: CBC Smear Scan; Complete Time: 21:22 EDMS 12/29 22:41 Order name: COVID-19 mg2 12/29 23:46 Order name: Lactate Sepsis 2 HR Follow-up; Complete Time: 23:47 EDMS 12/29 17:46 Order name: Cardiac monitoring; Complete Time: 18:42 snw 12/29 17:46 Order name: EKG - Nurse/Tech; Complete Time: 18:17 snw 12/29 17:46 Order name: IV Saline Lock - Large Bore; Complete Time: 18:42 snw 12/29 17:46 Order name: Labs collected and sent; Complete Time: 18:42 snw 12/29 17:46 Order name: O2 Per Protocol; Complete Time: 18:13 snw 12/29 17:46 Order name: O2 Sat Monitoring; Complete Time: 18:13 snw Administered Medications: 18:30 Drug: NS 0.9% 500 ml Route: IV; Rate: bolus; Site: right wrist; iw 20:06 Follow up: Response: No adverse reaction; IV Status: Completed infusion; IV Intake: mg2 500ml 18:30 Drug: Calcium Chloride 10% 10 ml Route: IVP; Site: right wrist; snw 20:06 Follow up: Response: No adverse reaction mg2 21:15 Drug: Tylenol #3 (300 mg-30 mg) 1 tablet Route: PO; mg2 22:41 Follow up: Response: No adverse reaction mg2 21:31 Drug: Rocephin 1 grams Route: IV; Rate: calculated rate; Site: right wrist; mg2 22:41 Follow up: Response: No adverse reaction; IV Status: Completed infusion mg2 21:31 Drug: SOLU-Medrol 60 mg Route: IVP; Site: right wrist; mg2 22:41 Follow up: Response: No adverse reaction mg2 21:32 Drug: vancoMYCIN 1 grams Route: IVPB; Infused Over: 2 hrs; Site: right wrist; mg2 12/30 00:38 Follow up: Response: No adverse reaction; IV Status: Completed infusion; IV Intake: mg2 250ml 12/29 21:49 Drug: Calcium Gluconate 1 grams Route: IVPB; Infused Over: 60 mins; Site: right wrist; mg2 12/30 00:38 Follow up: Response: No adverse reaction; IV Status: Completed infusion; IV Intake: mg2 100ml 12/29 21:49 Drug: Potassium Chloride 20 mEq Route: PO; mg2 22:41 Follow up: Response: No adverse reaction mg2 Disposition: 12/30 07:04 Co-signature as Attending Physician, Jhon Alva MD I agree with the assessment and kdr plan of care. Disposition: 12/30/19 21:59 Hospitalization ordered by Garcia Salazar for Inpatient Admission. Preliminary diagnosis are Sepsis, unspecified organism, Hypocalcemia, Weakness. - Bed requested for Telemetry/MedSurg (Inpatient). - Status is Inpatient Admission. mg2 - Condition is Stable. - Problem is an acute exacerbation. - Symptoms have worsened. Signatures: Dispatcher [employer] EDMS Jhon Alva MD MD [facility] Gracie Castorena FNP-Aaron STAFF COUNSELOR-Chasidy Perry, SHAI GIBBONS Nicole Way, SHAI GIBBONS cg Destin Santana, SHAI GIBBONS bp Carlos Walker RN RN mg2 Corrections: (The following items were deleted from the chart) 12/29 18:45 17:46 Urine Dipstick-Ancillary ordered. snw bp 18:45 17:46 Vargas ordered. snw bp 12/30 00:33 12/29 21:59 Hospitalization Ordered by A Martin CHOWDHURY for Inpatient Admission. Preliminary cg diagnosis is Sepsis, unspecified organism; Hypocalcemia; Weakness. Bed requested for Telemetry/MedSurg (Inpatient). Status is Inpatient Admission. Condition is Stable. Problem is an acute exacerbation. Symptoms have worsened. snw 12/30 00:49 00:33 12/30/2019 21:59 Hospitalization Ordered by Garcia Salazar MD for Inpatient Admission. mg2 Preliminary diagnosis is Sepsis, unspecified organism; Hypocalcemia; Weakness. Bed requested for Telemetry/MedSurg (Inpatient). Status is Inpatient Admission. Condition is Stable. Problem is an acute exacerbation. Symptoms have worsened. cg
[2019-12-31] MEDS ORDERED: VANCOMYCIN/NS 1 gm 1 GM/250 ML BAG IVPB SCH (01:14)
[2019-12-31] MEDS ORDERED: ACETAMINOPHEN 500 MG TAB PO PRN (01:14)
[2019-12-31] MEDS ORDERED: IPRATROPIUM BROM 0.5MG/2.5ML NEB PRN (01:14)
[2019-12-31] MEDS ORDERED: D50W 25 GM/50 ML SYRINGE/VIAL IV PRN ×2 (01:14→14:17)
[2019-12-31] MEDS ORDERED: ALBUTEROL 2.5 MG/3 ML NEB SOL NEB PRN (01:14)
[2019-12-31] MEDS ORDERED: NA CHLORIDE 0.9% 1,000 ML IV SCH (01:14)
[2019-12-31] MEDS ORDERED: GLUCAGON 1 MG/VIAL IM PRN ×2 (01:14→14:17)
[2019-12-31] MEDS: METHYLPREDNISOLONE 40 MG INJ IV SCH ×5 (02:43→23:33)
[2019-12-31] MEDS ORDERED: VANCOMYCIN/NS 1 gm 1 GM/250 ML BAG IVPB ONE (02:45)
[2019-12-31] MEDS ORDERED: HYDROCODONE/APAP 5/325 MG TAB PO PRN (03:16)
[2019-12-31] MEDS: MORPHINE 2 MG/ML SYR IV PRN (03:55)
[2019-12-31] MEDS: INSULIN -REGULAR HUMAN 50 UNIT/0.5 ML ML SQ SCH ×4 (08:50→21:40)
[2019-12-31] MEDS: CEFTRIAXONE/SWI 1gm 1 GM/10 ML SYR IV SCH ×2 (08:51→20:23)
[2019-12-31] MEDS ORDERED: CEFTRIAXONE 1 GM/NS 50 ML 1 GM/50 ML BAG IV SCH (09:00)
[2019-12-31] MEDS: HEPARIN 5000 UNIT/ML 1 ML VIAL SQ SCH ×2 (11:13→20:22)
--- NOTE | 2019-12-31 12:25 | HP ---
Date of Admission: 12/31/2019 Chief Complaint: Feeling very weak. History Of Present Illness: An 79-year-old male patient who has chronic wounds on both feet. Had surgery for amputation of the left foot second toe in October of this year for gangrene of this toe. This was done by Dr. Guajardo. He gets chronic wound care management per Dr. Guajardo for bilateral foot wound and has a wound VAC for the right foot wound. He also has end-stage renal disease on hemodialysis, goes for dialysis on Thursday, , Thursday. Last dialysis was on past . Yesterday, he was at home. He took some material from his backyard to [facility] and he told himself and when he came back after dropping this stuff at the [facility] while he was in his driveway, he could not get out of the vehicle as he was feeling extremely weak. Ambulance was called and he was brought into emergency room. When he came into ER first, he was noted to be extremely weak, somewhat altered and hypotensive. ER provider gave him IV fluid bolus, IV calcium and he started responding well and hemodynamically, his blood pressure came back up and he started communicating very well after that. His condition significantly improved after treatment received in the emergency room. I was contacted subsequently and he was admitted to the hospital. During nighttime, he had significant pain in his left foot requiring narcotic pain medications, which was ordered when nurse contacted me during middle of the night. The patient reports that he has pain in his both feet from time to time, but left foot pain is lot worse lately. Denies any fever, chills, nausea, vomiting. Allergies: IODINE, DEMEROL, AND SHELLFISH. Medications: List reviewed. Review of Systems: Musculoskeletal: As mentioned above. Constitutional: As mentioned above. All other systems reviewed and negative. Social History: Negative for smoking and alcohol use. Family History: Significant for asthma, hypertension, and breast cancer. Past Surgical History: AICD placement in 2014, tracheostomy placement many years ago and left foot second toe amputation October [address] Guajardo. Past Medical History: Significant for end-stage renal disease, on hemodialysis, COPD, chronic systolic congestive heart failure with reduced ejection fraction, anemia due to chronic kidney disease, type 2 diabetes mellitus, obstructive sleep apnea, allergic rhinitis, coronary artery disease, osteoarthritis at multiple sites, diverticulosis, cervical spondylosis with radiculopathy, gastroesophageal reflux disease, aortic stenosis, and osteomyelitis of the bilateral foot. Physical Examination: Vital Signs: This morning when I saw him, temperature 96.9, pulse 65, respiratory rate 20, blood pressure 102/51, oxygen saturation 95%. Height 5 feet 11 inches, weight 226 pounds. General: Awake, alert, oriented, not in distress. HEENT: Head atraumatic, normocephalic. Conjunctivae nonerythematous. Sclerae white. Mouth, no thrush or edema noted. Ears/Nose, no mass, lesion, discharge noted. Neck: Supple. No JVD, lymph nodes, bruit, thyromegaly noted. Lungs: Bilateral good equal air entry. Clear to auscultation. No rhonchi. No rales. Heart: Normal heart sounds, no murmur or gallop. Abdomen: Soft, bowel sounds normal. No guarding, rigidity, tenderness, mass, hepatosplenomegaly, distention, or bruit noted. Extremities: No leg edema. No calf tenderness. Dressing present over both feet. Skin: No rash, ulcer, cellulitis. Lymphatics: No lymph node enlargement in neck, supraclavicular, infraclavicular region. Neuro: No focal neurological deficit. Chest: Unremarkable. External Genitalia: Deferred. Rectal: Deferred. Laboratory Data: Yesterday white count 12.4, hemoglobin 11.8, platelets 109. Blood gas pH 7.41, pCO2 39.9, PO2 68, oxygen saturation 93% on room air. Sodium 142, potassium 3.2, chloride 115, bicarb 19, BUN 15, creatinine 3.11, glucose 130. Lactic acid 2.2. Procalcitonin 2.91, serum calcium 5.7. Liver function tests unremarkable. Troponin less than 0.02. Chest x-ray, no acute intrathoracic changes. Impression: 1. Osteomyelitis, foot. 2. Rule out sepsis. 3. Hypocalcemia. 4. Hypokalemia. 5. Anemia due to chronic kidney disease. 6. Thrombocytopenia. 7. End-stage renal disease, on hemodialysis. 8. Chronic obstructive pulmonary disease. 9. Chronic systolic congestive heart failure. 10. Coronary artery disease. 11. Anemia, due to chronic kidney disease. 12. Type 2 diabetes mellitus. 13. Obstructive sleep apnea. 14. Allergic rhinitis. 15. Osteoarthritis, multiple sites. 16. Gastroesophageal reflux disease. 17. Aortic stenosis. Plan: Admit the patient to hospital for further evaluation and management of this problem. The patient is appropriate for inpatient and is expected to spend 2 midnights in hospital. We will consult teachers aide for dialysis support. We will also consult Dr. Guajardo for his osteomyelitis problem on his foot. The patient reports that the 2 toes are turning black now in last 2-3 weeks. We will request Dr. Guajardo to evaluate his both feet and provide us with recommendation. The patient says that Dr. Guajardo already has informed him recently that he may require amputation of his legs and we did have this discussion again today concerning his ongoing problem with bilateral foot. We will continue empiric antibiotic, which is vancomycin and ceftriaxone. Home medications will be continued per order. We will not give any Eliquis at this point. Instead of that, we will use heparin 5000 units subcutaneous injection every 12 hours. I am concerned about patient's driving considering what happened yesterday and he tells that he realizes it well. I have informed him that it is not safe for him to drive his car and he should not drive his car from now on, he understands and agrees with this recommendation and says he is not going to drive anymore. Details of plan of treatment discussed with the patient. ODESSA/MODL Voice ID: [id number] ABEL
--- NOTE | 2019-12-31 13:40 | CON ---
Date of Consultation: 12/31/2019 Reason For Service: Bilateral lower extremity peripheral vascular disease and gangrene of the left f oot and nonhealing wound of the right foot. History Of Present Illness: This is the case of an 79-year-old patient known by us due to long-[facility]. Several days ago we explained to him the need for amputation of the left foot at least below-knee amputation due to active gangren e, comes today with worsening of the gangrene. The good thing about it is that he went to the vascul ar surgeon and they did some revascularization of the left lower extremity and that may improve the c bautista for him to heal from our surgery. He was admitted with a diagnosis of weakness and sepsis. He denies any fevers, chills, dysuria, hematemesis, hematochezia, melena. He has a history of end-stag e renal disease on hemodialysis. Allergies: IODINE, DEMEROL, SHELLFISH. Past Medical Problems: Discussed above including once again a peripheral vascular disease, on hemodi alysis. Past Surgical History: Include multiple foot debridement and amputation of digit. Physical Examination: General: The patient is awake, alert. Eyes: Pupils anicteric. Abdomen: Soft and depressible. Extremities: The patient has nonhealing wound over the right foot, although shows granulation tissue that shows improvement. Of the left foot, the patient has gangrenous changes. He also has an emerg ent toe removed several months ago, second toe that never healed, not even granulation tissue due to poor peripheral circulation. Now he comes also with a second and third toe and ischemic changes of # [address] into a distal foot area consistent with gangrenous changes. There is smelling com ing from it too. No pulses. Laboratory Data: Blood work shows WBC count of 12.4 with hemoglobin of 11.8. INR is 1.3, glucose 40 9. Assessment: This is an 79-year-old patient with gangrene of the left foot. Once again, we discussed with him importance of amputation. I believe even with the circulation, the best chance on him is b elow-knee amputation and that improve circulation help us to heal the stump better, which right now i s in an area also with poor peripheral access and the blood access. He is still thinking about it. In the meantime, we are going to ask the primary doctor to evaluate him from a medical standpoint for possible left below-knee amputation if he finally agrees and also a Cardiology evaluation; he most jamaal amezcuawatson is going to need that before he leaves this institution. He is not ready to have signed a cons ent for that yet. DONNA/PATRICK Voice ID: [id number] Report ID: [id number]
[2019-12-31] MEDS ORDERED: NITROGLYCERIN 0.4 MG/TAB SL PRN (14:10)
[2019-12-31] MEDS ORDERED: MIDODRINE HCL PO SCH (14:15)
[2019-12-31] MEDS ORDERED: MIDODRINE HCL 5 MG TABLET PO PRN (15:43)
[2019-12-31] MEDS: DOCUSATE NA 100 MG CAP PO SCH ×2 (16:33→20:22)
[2019-12-31] MEDS: CALCITROL 0.25 MCG CAP PO SCH (16:33)
[2019-12-31] MEDS: INSULIN GLARGINE 100 UNITS/ML SQ SCH (16:34)
[2019-12-31] MEDS: SEVELAMER CARBONATE 800 MG TABLET PO SCH (16:34)
[2019-12-31] MEDS: METOPROLOL TAR 25 MG TAB PO SCH (17:45)
--- NOTE | 2019-12-31 19:22 | CON ---
Date of Consultation: 12/31/2019 Reason For Consultation: Hypokalemia, elevation in BUN and creatinine, fluid management. History Of Present Illness: This is a pleasant unfortunate 79-year-old gentleman with significant pa st medical history of end-stage renal disease, on dialysis TTS at [facility] AV fistula, hypertension, hyperlipidemia, COPD with trach, peripheral vascular disease with chron ic wound in his right foot. The patient came to the hospital because of worsening wound on his foot. The patient has been evaluated by Surgery, possible needing below-knee amputation. The patient's l ast dialysis was . The patient had chronic shortness of breath. Past lab show hypokalemia w ith potassium 3.5. Past Medical History: 1.Coronary artery disease complicated with congestive heart failure. 2.COPD, status post tracheostomy. 3.End-stage renal disease. 4.Peripheral vascular disease. 5.Hyperlipidemia. Family History: Positive for hypertension and diabetes. Past Surgical History: 1.AV fistula creation. 2.Tracheostomy. 3.Multiple debridement on the foot. Allergies: CIPRO AND IODINE. Review of Systems: Head and Neck: No red eye. No ear pain. GI: No nausea. No vomiting. : No polyuria. No dysuria. No hematuria. Research Lab Assistant: Not applicable. Respiratory: He has chronic shortness of breath. Cardiovascular: No chest pain. Endocrine: No polydipsia. Skin: No rash. Neuro: He has neuropathy. Musculoskeletal: He has foot pain. Physical Examination: Vital Signs: When I saw the patient, blood pressure of 105/54, pulse of 63, afebrile. Lowest blood pressure 93/54. Chest: Faint rales on the left base. Heart: S1, S2. Systolic murmur. The patient had a tracheostomy. Abdomen: Soft, nontender. Morbidly obese. Could not appreciate any organomegaly. Extremities: Dressing on the right foot. Neurologic: Alert and oriented x3. Laboratory Data: WBC 12.4, H and H 11.8/39.1, platelets 109. Sodium 142, potassium 3.2, bicarb 19, BUN 15, creatinine 3.1, calcium 5.7. Albumin 1.3, corrected calcium is 8.1. Medications: Current medications the patient on include ceftriaxone, vancomycin, heparin, amiodarone , metoprolol 25 b.i.d., nitroglycerin, Renvela, pantoprazole, hydrocortisone, cholecalciferol, multiv itamin. Assessment And Plan: 1.End-stage renal disease, chronic over volume. I am going to arrange for the dialysis today. We w ill dialyze the patient on high potassium bath as the patient low potassium and high calcium bath. W e will monitor the patient. Also, the patient is going to be dialyzed on sodium module to avoid low blood pressure. 2.Hypertension, currently hypotension. We will use midodrine for sustained blood pressure with dial ysis. 3.Hypokalemia. As I mentioned, the patient is going to be dialyzed on high potassium bath. 4.Hypocalcemia secondary to secondary hyperparathyroidism. I am going to repeat PTH. I will start the patient on calcitriol and we will monitor the patient. 5.Anemia of chronic kidney disease and hemoglobin above 11.5. No need for JAIRO. 6.Infected foot. Follow up with Surgery. GERI Voice ID: [id number] Report ID: [id number]
[2019-12-31] MEDS ORDERED: BUDESONIDE 0.5 MG/2 ML NEB IH SCH (20:00)
[2019-12-31] MEDS: GABAPENTIN 300 MG CAP PO SCH (20:22)
[2019-12-31] MEDS ORDERED: HOME MED 1 EA UNK (Omeprazole [Omeprazole] 1 CAP) PO SCH (21:00)
[2020-01-01 00:25] LABS: Absolute Lymphocytes (CBC) 0.7 K/uL (0.7-4.9); Basophils % 0.1 % (0-1.3); Hematocrit 29.6 % (39.6-49.0); MPV 10.1 fL (7.6-11.3); RBC Red Blood Cell Count 3.22 M/uL (4.33-5.43)
[2020-01-01 00:54] LABS: Magnesium 2.2 mg/dL (1.8-2.4); Potassium 4.8 mmol/L (3.5-5.1); Thyroid Stimulating Hormone 0.748 uIU/mL (0.360-3.740)
[2020-01-01] MEDS ORDERED: NA CHLORIDE 0.9% 250 ML ONE (03:13)
[2020-01-01] MEDS ORDERED: VANCOMYCIN 1 GM/VIAL ONE (03:32)
[2020-01-01 05:51] VITALS: BMI 29.9
[2020-01-01] MEDS: METOPROLOL TAR 25 MG TAB PO SCH ×2 (06:00→17:28)
[2020-01-01] MEDS: METHYLPREDNISOLONE 40 MG INJ IV SCH (06:04)
[2020-01-01] MEDS: PANTOPRAZOLE 40MG TABLET PO SCH (06:31)
--- NOTE | 2020-01-01 08:05 | RAD REPORT ---
EXAM DESCRIPTION: RAD - Chest Single View - 01/01/2020 6:36 am CLINICAL HISTORY: Dr dooley, chest pain, shortness of breath, dialysis COMPARISON: Portable December 29 TECHNIQUE: AP portable chest image was obtained 01/01/2020 6:36 am . FINDINGS: No peripheral mass or consolidation. No significant failure or volume overload findings. T here is some mild prominence of the interstitial markings and vasculature not clearly different from comparison. Defibrillator is in place on the right side of the chest. Trach tube is in place. Heart size normal range for portable imaging. No pneumothorax or measurable pleural effusion. No acu te bony abnormality seen. No acute aortic findings suspected. IMPRESSION: Heart size is normal for portable imaging. Vasculature and lung markings are minimally p rominent peer Findings are not substantially different from December 29. Mild failure or volume overload are not e xcluded.
[2020-01-01] MEDS: INSULIN -REGULAR HUMAN 50 UNIT/0.5 ML ML SQ SCH ×4 (08:47→21:43)
[2020-01-01] MEDS: INSULIN GLARGINE 100 UNITS/ML SQ SCH ×2 (08:47→17:02)
[2020-01-01] MEDS: CEFTRIAXONE/SWI 1gm 1 GM/10 ML SYR IV SCH ×2 (08:48→21:42)
[2020-01-01] MEDS: HEPARIN 5000 UNIT/ML 1 ML VIAL SQ SCH ×2 (08:48→21:40)
[2020-01-01] MEDS: ASPIRIN EC 81 MG TAB PO SCH (08:48)
[2020-01-01] MEDS: ZINC SULFATE 220 MG CAP PO SCH (08:49)
[2020-01-01] MEDS: DOCUSATE NA 100 MG CAP PO SCH ×2 (08:49→21:43)
[2020-01-01] MEDS: GABAPENTIN 300 MG CAP PO SCH ×2 (08:49→21:42)
[2020-01-01] MEDS: VITAMIN D 1000 UNIT TAB PO SCH (08:50)
[2020-01-01] MEDS: MULTIVITAMINS,THERAPEUT 1 TAB PO SCH (08:50)
[2020-01-01] MEDS: allopurinoL 100 MG TAB PO SCH (08:50)
[2020-01-01] MEDS: AMIODARONE HCL 200 MG TAB PO SCH (08:51)
[2020-01-01] MEDS: FLUTICASONE 50MCG NASAL SPRAY NAS SCH (09:00)
[2020-01-01] MEDS: BUDESONIDE 0.5 MG/2 ML NEB IH SCH ×2 (09:00→20:00)
[2020-01-01] MEDS ORDERED: HOME MED 1 EA UNK (Cholecalciferol (Vitamin D3) [Vitamin D3] 1 CAP) PO SCH (09:00)
--- NOTE | 2020-01-01 11:23 | PN ---
Date of Progress Note: 01/01/2020 Subjective: The patient was seen for followup this morning. Lying in bed, not in distress, sleeping , easily arousable. Denies any new complaints. Objective: Vital Signs: Reviewed. HEENT: Unremarkable. Lungs: Clear to auscultation. Heart: Sounds normal. Abdomen: Soft. Bowel sounds normal. No guarding, rigidity, tenderness, or distention. Extremities: No leg edema. Impression: 1.Osteomyelitis, foot. 2.End-stage renal disease, on hemodialysis. 3.Anemia due to chronic kidney disease. 4.Chronic congestive heart failure. 5.Coronary artery disease. 6.Chronic anticoagulation therapy. Plan: We will go ahead and continue current medications. I have not given any Eliquis right now con sidering if the patient needs any surgery. We would like to go ahead and hold onto Eliquis therapy a t this point. We will follow with Dr. Guajardo regarding his decision to do any surgery or not. Yanet rodriguez, continue antibiotics. PICC line was ordered after getting approval from Dr. Dennison as the patient has very poor IV access. ODESSA/MODL Voice ID: [id number] Report ID: [id number]
--- NOTE | 2020-01-01 13:40 | PN ---
Date of Progress Note: 01/01/2020 History Of Present Illness: The patient was admitted with foot infection. Patient to doing well. P atient is complaining of some nausea. The patient had dialysis yesterday, we only managed to remove 600. Blood pressure has been running on the lower side. Physical Examination: Vital Signs: Blood pressure 93/54, pulse of 61, afebrile. Chest: Clear to auscultation. Heart: S1, S2. Regular. Systolic murmur. Abdomen: Soft, nontender. Extremities: Dressing on the right foot. Laboratory Data: WBC 11.8, H and H of 8.9 and 29.6, platelets 143. Sodium 132, potassium 4.8, bicar b 22, BUN 41, creatinine 5.5, calcium 8.3. Current Medications: The patient is on include: 1.Aspirin. 2.Ceftriaxone. 3.Vancomycin. 4.Midodrine. 5.Heparin. 6.Metoprolol 25. 7.Renvela. 8.Pantoprazole. 9.Prednisone. 10.Allopurinol. Assessment And Plan: 1.End-stage renal disease. We will continue the patient on dialysis, TTS. We will monitor. We are going to do another session of dialysis tomorrow to maintain good fluid status and preparation for s urgery. 2.Hypertension. Currently hypotension. We will keep using midodrine to establish better blood pres sure for the ultrafiltration. I am going to go ahead and increase midodrine to 10 mg and we will fol low up. 3.Foot infection, osteomyelitis, needing below-knee amputation. We will follow up with Surgery. 4.Chronic obstructive pulmonary disease, stable. 5.Congestive heart failure. Normal volume currently. We will continue challenging with the dialysi s. 6.Anemia of chronic kidney disease. Continue JAIRO. ROLANDO/PATRICK Voice ID: [id number] Report ID: [id number]
--- NOTE | 2020-01-01 14:47 | PN ---
Date of Progress Note: 01/01/2020 Reason For Service: Left foot gangrene. Subjective: Mr. Perez is an 79-year-old patient, known by us since he has been [facility] with severe peripheral vascular disease, end-stage renal disease, multiple open wounds, nonhe aling wounds, gangrene of the toes. At this time, he has gangrene of the left foot. Actually, he wa s seen I believe a more than a week ago and he was recommended to be admitted to the hospital for bel ow-knee amputation as soon as possible, but he has not been able to make the decision. We have been trying any possible way, sitting down for an hour, talking to the family members, showing him the kajal grene, showing him the smell for him to understand the urgency of the situation. Today, once again w e were unsuccessful again. We opened the wounds showing this right now, telling him the pros and con s of below-knee amputation and he still does not want to proceed with it. I even offered him tomorro w to if he just wants to sit down and talk to the family again, but he is undecided that too. In the meantime, he understands the risks of sepsis and dying from it and I believe he understands that par t. We are trying to understand his situation and trying to answer all his questions to his satisfact ion, but still we have not consent for surgical intervention yet and the leg change today once again shows foot gangrene with gangrene and needs to be addressed. Other than that, I do not have a consen t yet so hopefully I asked him to please be n.p.o. after midnight. In case he change his mind tomorr ow morning, we had the opportunity to remove this and do a left below-knee amputation that may or may not heal, but has better chance than just removing the toes and just that area, there is almost no chance for healing. He understood. DONNA/PATRICK Voice ID: [id number] Report ID: [id number]
[2020-01-01] MEDS: SEVELAMER CARBONATE 800 MG TABLET PO SCH (17:01)
[2020-01-01] MEDS ORDERED: BUDESONIDE 0.5 MG/2 ML NEB ONE (19:30)
[2020-01-01] MEDS ORDERED: ALBUTEROL 2.5 MG/3 ML NEB SOL ONE (19:31)
[2020-01-01] MEDS ORDERED: IPRATROPIUM BROM 0.5MG/2.5ML ONE (19:31)
[2020-01-01] MEDS: predniSONE 20 MG TAB PO SCH (21:43)
[2020-01-02] MEDS: METOPROLOL TAR 25 MG TAB PO SCH ×2 (05:51→16:55)
[2020-01-02] MEDS: PANTOPRAZOLE 40MG TABLET PO SCH (05:52)
[2020-01-02] MEDS: INSULIN -REGULAR HUMAN 50 UNIT/0.5 ML ML SQ SCH ×4 (07:30→21:00)
[2020-01-02] MEDS: BUDESONIDE 0.5 MG/2 ML NEB IH SCH ×2 (07:31→21:10)
[2020-01-02] MEDS: CEFTRIAXONE/SWI 1gm 1 GM/10 ML SYR IV SCH ×2 (07:58→21:34)
[2020-01-02] MEDS: FLUTICASONE 50MCG NASAL SPRAY NAS SCH (08:00)
[2020-01-02] MEDS: INSULIN GLARGINE 100 UNITS/ML SQ SCH ×2 (08:00→17:00)
[2020-01-02] MEDS: HYDROCORTISONE SUC 100 MG INJ IV SCH ×3 (08:59→21:34)
[2020-01-02] MEDS: HEPARIN 5000 UNIT/ML 1 ML VIAL SQ SCH ×2 (09:00→21:33)
[2020-01-02] MEDS: ZINC SULFATE 220 MG CAP PO SCH (09:00)
[2020-01-02] MEDS: allopurinoL 100 MG TAB PO SCH (09:00)
[2020-01-02] MEDS: predniSONE 20 MG TAB PO SCH (09:00)
[2020-01-02] MEDS: GABAPENTIN 300 MG CAP PO SCH ×2 (09:00→21:33)
[2020-01-02] MEDS: MULTIVITAMINS,THERAPEUT 1 TAB PO SCH (09:00)
[2020-01-02] MEDS: COLLAGENASE 30 GM OINTMENT TOP SCH (09:00)
[2020-01-02] MEDS: VITAMIN D 1000 UNIT TAB PO SCH (09:00)
[2020-01-02] MEDS: DOCUSATE NA 100 MG CAP PO SCH ×2 (09:00→21:00)
[2020-01-02] MEDS: ASPIRIN EC 81 MG TAB PO SCH (09:00)
[2020-01-02] MEDS ORDERED: FENTANYL CITR 100 MCG/2 ML ONE (09:05)
[2020-01-02] MEDS ORDERED: LIDOCAINE 2% MPF 5 ML VIAL ONE (09:05)
[2020-01-02] MEDS ORDERED: propofoL 200 MG/20 ML VIAL IV ONE (09:05)
[2020-01-02] MEDS ORDERED: EPINEPHRINE/PF 1 MG/ML AMP ONE (09:06)
[2020-01-02] MEDS ORDERED: LIDOCAINE 1% MPF 5 ML VIAL ONE (09:10)
[2020-01-02] MEDS ORDERED: NA CHLORIDE 0.9% 1,000 ML ONE (09:18)
[2020-01-02] MEDS ORDERED: LIDOCAINE 2% W/EPI 1:200,000 MPF 20 ML VIAL IM ONE (09:25)
[2020-01-02] MEDS ORDERED: CIPROFLOXACIN 400mg IV 400 MG/200 ML BAG IV ONE (09:26)
[2020-01-02] MEDS ORDERED: Phenylephrine HCl 10 MG/ML 1 ML VIAL ONE ×3 (10:02→13:57)
[2020-01-02] MEDS ORDERED: NA CHLORIDE 0.9% 100 ML IV ONE ×2 (10:28→13:51)
[2020-01-02] MEDS ORDERED: EPHEDRINE SULF 50 MG/ML VIAL ONE (10:32)
--- NOTE | 2020-01-02 10:52 | P.BOP ---
Preoperative diagnosis: Left foot gangrene Postoperative diagnosis: same Primary procedure: Left BKA [employer] Operator: Erin Gipson (Benji) Estimated blood loss: <50cc Specimen: foot Findings: as above Anesthesia: epidural Drain(s): KAYLAH drain Transferred to: Recovery Room Condition: Good
[2020-01-02] MEDS ORDERED: HYDROCODONE/APAP 5/325 MG TAB PO PRN (10:54)
[2020-01-02] MEDS ORDERED: NS 0.9% VIAL 10 ML ONE (10:54)
[2020-01-02] MEDS ORDERED: MORPHINE 2 MG/ML SYR IV PRN (11:42)
[2020-01-02] MEDS: WATER FOR INJ,STERILE 10 ML IV SCH (16:08)
[2020-01-02] MEDS: AMIODARONE HCL 200 MG TAB PO SCH (16:08)
[2020-01-02] MEDS: MORPHINE 2 MG/ML SYR IV PRN (16:08)
[2020-01-02] MEDS ORDERED: AMIODARONE HCL 200 MG TAB ONE (16:13)
[2020-01-02] MEDS ORDERED: HYDROCORTISONE SUC 100 MG INJ ONE ×2 (16:13→21:40)
[2020-01-02] MEDS ORDERED: MORPHINE 2 MG/ML SYR ONE (16:14)
[2020-01-02] MEDS ORDERED: WATER FOR INJ,STERILE 10 ML ONE (16:14)
[2020-01-02] MEDS ORDERED: INSULIN GLARGINE 100 UNITS/ML SQ ONE (17:09)
[2020-01-02] MEDS ORDERED: INSULIN -REGULAR HUMAN 50 UNIT/0.5 ML ML ONE ×2 (17:09→21:41)
[2020-01-02 17:11] LABS: Magnesium 2.1 mg/dL (1.8-2.4); Phosphorus 4.2 mg/dL (2.5-4.9); Potassium 5.5 mmol/L (3.5-5.1)
[2020-01-02] MEDS: CALCITROL 0.25 MCG CAP PO SCH (18:01)
[2020-01-02] MEDS ORDERED: SODIUM BICARB 50 MEQ/50ML VIAL ONE (18:09)
[2020-01-02] MEDS: SEVELAMER CARBONATE 800 MG TABLET PO SCH (18:16)
[2020-01-02] MEDS ORDERED: SODIUM BICARB 50 MEQ/50ML VIAL IV ONE (19:00)
[2020-01-02] MEDS: ALBUTEROL 2.5 MG/3 ML NEB SOL NEB PRN (21:10)
[2020-01-02] MEDS: IPRATROPIUM BROM 0.5MG/2.5ML NEB PRN (21:10)
[2020-01-02] MEDS ORDERED: IPRATROPIUM BROM 0.5MG/2.5ML ONE (21:22)
[2020-01-02] MEDS ORDERED: ALBUTEROL 2.5 MG/3 ML NEB SOL ONE (21:22)
[2020-01-02] MEDS ORDERED: CEFTRIAXONE 1000 MG/VIAL ONE ×2 (21:40→21:42)
[2020-01-02] MEDS ORDERED: GABAPENTIN 300 MG CAP ONE (21:40)
[2020-01-02] MEDS ORDERED: HEPARIN 5000 UNIT/ML 1 ML VIAL ONE (21:40)
[2020-01-02] MEDS ORDERED: CEFTRIAXONE/SWI 1gm 1 GM/10 ML SYR ONE (21:41)
[2020-01-02] MEDS: MIDODRINE HCL 5 MG TABLET PO PRN (22:40)
--- NOTE | 2020-01-02 22:48 | OP ---
Date of Procedure: 01/02/2020 Surgeon: Tristin Guajardo MD Preoperative Diagnosis: Left foot gangrene. Postoperative Diagnosis: Left foot gangrene. Procedure: Left below-knee amputation. Anesthesia: Epidural, local anesthetic. Complications: None. Drains: KAYLAH #10. Indications: This is a case of an 79-year-old patient with wet gangrene of the left foot, needing ur gent almost emergent amputation of the left lower extremity. We have been trying to convince him for the last 2 weeks about the option he has and this morning, he decided to go for left below-knee ampu tation with benefits, alternatives, and risks including, but not limited to infection, bleeding, von ge to adjacent structures, anesthesia complication, failure of the graft, MD, even . He also un derstands this may not relieve the symptoms. He might need more than one surgical intervention. He understood and signed a consent. Anesthesia has to get together and try to formulate the plan for hi m since the many obstacles in the way how to safely do anesthesia, but they managed to come with a pl an to at least put him somehow to sleep, so we can perform this emergent surgery. He understands the risks of that situation too. Description Of Procedure: The patient was brought to the operating room and placed in supine positio n. A time-out was called. Left lower extremity was prepped and draped in usual sterile fashion. An terior and posterior skin incisions were outlined with a marking pen. The anterior skin incision was about 12 cm from the tibial tuberosity and extended medial and lateral. The skin incision was then extended to about 15 cm along the tibia. This skin and subcutaneous tissue were carefully incised do wn to fascia. Saphenous veins were ligated. The fascia and the muscle were then divided with the Laci vie cauterizer. The muscles of the anterior and lateral compartments were divided exposing the anter ior tibial vessels and they were ligated with 0 silk. Interosseous membranes were incised. Tibial p eriosteum was incised circumferentially and with a periosteal elevator, we proceeded to strip the per iosteum about 2 cm. The tibia was then transected with the Gigli saw. The fibula was then exposed, dissected circumferentially, and transected about 2 cm before mid and proximal to the tibial division . File was done over the bone. The amputation was then completed with the Bovie cauterizer. We put bone wax over the area of the tibia. The fascia and the anterior and posterior muscle flaps were ap proximated with #2 Vicryl and 0 Vicryl. The subcutaneous tissue was approximated with chromic. The skin was approximated with gita. Before we did that, we put a KAYLAH drain over the area exiting to a new incision in the skin and secured in place with 2-0 nylon. The patient tolerated the procedure w ell. The patient was sent to recovery in stable condition. DONNA/PATRICK Voice ID: [id number] Report ID: [id number]
[2020-01-03] MEDS ORDERED: WATER FOR INJ,STERILE 10 ML ONE ×2 (00:27→08:49)
[2020-01-03] MEDS ORDERED: HYDROCORTISONE SUC 100 MG INJ ONE ×2 (00:27→08:48)
--- NOTE | 2020-01-03 00:33 | PN ---
Date of Progress Note: 01/02/2020 Subjective: The patient was seen this morning for followup. He was lying in bed, not in any distres s. Objective: Vital Signs: Reviewed. HEENT: Unremarkable. Lungs: Clear to auscultation. Heart: Sounds normal. Abdomen: Soft. Bowel sounds normal. No guarding, rigidity, tenderness, or distention. Extremities: No leg edema. Right foot dressing present, left foot dressing present, but his toes we re visible, and his great toe and third toe appears gangrenous. Impression: 1.Osteomyelitis and gangrene, left foot. 2.End-stage renal disease, on hemodialysis. 3.Paroxysmal atrial fibrillation. 4.Anemia due to chronic kidney disease. 5.Chronic obstructive pulmonary disease. Plan: We will continue current medications. Continue current empiric antibiotic. Dr. Guajardo took the patient to surgery for amputation of the left leg today. Order was written for the patient to r eceive IV Solu-Cortef 100 mg every 6 hours, first dose to be started just before surgery. After surg katie, anesthesiologist contacted and informed me that the patient was started on Juan-Synephrine during surgery, and it was continued postoperative. The systolic blood pressure was between 90-100 with Ne o-Synephrine drip. With that instead of bringing him back to floor, we transferred him from recovery room to ICU and bag loader was contacted, who decided to go ahead and pursue dialysis support late r this evening as the patient's potassium was elevated on the repeat blood work today. We will gonzález nue Juan-Synephrine per order and I will see him tomorrow for followup. Continue other current medications including IV steroids and antibiotics. ODESSA/MODL Voice ID: [id number] Report ID: [id number]
--- NOTE | 2020-01-03 02:04 | PN ---
Date of Progress Note: 01/02/2020 Chief Complaint: End-stage renal disease, on dialysis. Subjective: The patient has multiple medical problems including history of congestive heart failure with systolic and diastolic dysfunction, intradialytic hypotension, history of obstructive sleep apne a, chronic respiratory failure. The patient was admitted with diabetic foot infection. He underwent BKA today. Blood pressure was low and the patient is started on pressors for hypotension. The lui ent is on antibiotics for sepsis and septic shock. The patient today was found to have hyperkalemia and dialysis is initiated. Electrolytes adjusted and the patient received IV sodium bicarbonate to c ontrol potassium level prior to dialysis was started. Review of Systems: Unobtainable. Physical Examination: Lungs: Diminished breath sounds at bases. Heart: S1, S2. Abdomen: Soft, benign. Extremities: Edema present in both legs. Impression And Plan: 1.Left foot gangrene. The patient underwent left below-knee amputation. Continue antibiotics and w ound care. The patient was found to have hyperkalemia, moderately severe. Potassium was 5.5. There is ongoing hyponatremia, although glucose level is 378, corrected sodium is in the lower normal rang es. The patient will continue dialysis and he may require daily treatment for volume control. Today , due to hypotension, plan is to obtain metabolic clearance and to control hyponatremia. 2.Recommend to continue insulin therapy. 3.The patient received IV sodium bicarbonate as to treat hyperkalemia and stabilize acidosis. 4.Below-knee amputation, status post surgery lower extremity gangrene. The patient will continue broad-spectrum antibiotics. Pending cultures. EB/MODL Voice ID: [id number] Report ID: [id number]
[2020-01-03] MEDS: WATER FOR INJ,STERILE 10 ML IV SCH ×2 (03:30→09:00)
[2020-01-03] MEDS: HYDROCORTISONE SUC 100 MG INJ IV SCH ×4 (03:30→20:13)
[2020-01-03 04:06] LABS: Magnesium 1.9 mg/dL (1.8-2.4); Phosphorus 2.6 mg/dL (2.5-4.9)
[2020-01-03] MEDS: MORPHINE 2 MG/ML SYR IV PRN ×3 (05:13→20:15)
[2020-01-03] MEDS ORDERED: MORPHINE 2 MG/ML SYR ONE ×2 (05:23→09:56)
[2020-01-03] MEDS ORDERED: PANTOPRAZOLE 40MG TABLET PO ONE (05:23)
[2020-01-03] MEDS ORDERED: METOPROLOL TAR 25 MG TAB ONE (05:23)
[2020-01-03] MEDS: METOPROLOL TAR 25 MG TAB PO SCH ×2 (06:00→17:08)
[2020-01-03] MEDS: PANTOPRAZOLE 40MG TABLET PO SCH (06:24)
[2020-01-03] MEDS: INSULIN -REGULAR HUMAN 50 UNIT/0.5 ML ML SQ SCH ×4 (07:30→20:14)
[2020-01-03] MEDS: INSULIN GLARGINE 100 UNITS/ML SQ SCH ×2 (08:00→16:28)
[2020-01-03] MEDS ORDERED: IPRATROPIUM BROM 0.5MG/2.5ML ONE (08:02)
[2020-01-03] MEDS ORDERED: ALBUTEROL 2.5 MG/3 ML NEB SOL ONE (08:02)
[2020-01-03] MEDS ORDERED: GABAPENTIN 300 MG CAP ONE (08:48)
[2020-01-03] MEDS ORDERED: ASPIRIN EC 81 MG TAB PO ONE (08:49)
[2020-01-03] MEDS ORDERED: CEFTRIAXONE/SWI 1gm 1 GM/10 ML SYR ONE (08:49)
[2020-01-03] MEDS ORDERED: AMIODARONE HCL 200 MG TAB ONE (08:49)
[2020-01-03] MEDS ORDERED: INSULIN GLARGINE 100 UNITS/ML SQ ONE (08:49)
[2020-01-03] MEDS ORDERED: HEPARIN 5000 UNIT/ML 1 ML VIAL ONE (08:49)
[2020-01-03] MEDS: VITAMIN D 1000 UNIT TAB PO SCH (08:57)
[2020-01-03] MEDS: ZINC SULFATE 220 MG CAP PO SCH (08:58)
[2020-01-03] MEDS: FLUTICASONE 50MCG NASAL SPRAY NAS SCH (08:58)
[2020-01-03] MEDS: allopurinoL 100 MG TAB PO SCH (08:58)
[2020-01-03] MEDS: MULTIVITAMINS,THERAPEUT 1 TAB PO SCH (08:58)
[2020-01-03] MEDS: HEPARIN 5000 UNIT/ML 1 ML VIAL SQ SCH ×2 (08:59→20:13)
[2020-01-03] MEDS: GABAPENTIN 300 MG CAP PO SCH ×2 (08:59→20:13)
[2020-01-03] MEDS: ASPIRIN EC 81 MG TAB PO SCH (08:59)
[2020-01-03] MEDS: CEFTRIAXONE/SWI 1gm 1 GM/10 ML SYR IV SCH ×2 (08:59→20:12)
[2020-01-03] MEDS: AMIODARONE HCL 200 MG TAB PO SCH (09:00)
[2020-01-03] MEDS: ALBUTEROL 2.5 MG/3 ML NEB SOL NEB PRN (09:00)
[2020-01-03] MEDS: BUDESONIDE 0.5 MG/2 ML NEB IH SCH ×2 (09:00→20:00)
[2020-01-03] MEDS: COLLAGENASE 30 GM OINTMENT TOP SCH (09:00)
[2020-01-03] MEDS: DOCUSATE NA 100 MG CAP PO SCH ×2 (09:00→20:13)
[2020-01-03] MEDS: IPRATROPIUM BROM 0.5MG/2.5ML NEB PRN (09:00)
--- NOTE | 2020-01-03 11:16 | PN ---
Date of Progress Note: 01/03/2020 Diagnosis: Status post below-knee amputation. Subjective: The patient is doing well and responding, and cooperative. Objective: Chest: Clear. Abdomen: Soft and depressible. Extremities: Intact surgical site. Laboratory Data: The blood work was reviewed with the patient. Plan: I called the wound healing center today to get specific instructions about the right foot and we are going to continue with the wound VAC on the right foot. Left side wound leave intact. KAYLAH sparks. Pain control. HM/MODL Voice ID: [id number] Report ID: [id number]
[2020-01-03 11:21] LABS: Absolute Lymphocytes (CBC) 0.2 K/uL (0.7-4.9); Basophils % 0.2 % (0-1.3); Hematocrit 26.8 % (39.6-49.0); Lymphocytes % 1.7 % (15.3-44.8); MPV 10.2 fL (7.6-11.3); RBC Red Blood Cell Count 2.95 M/uL (4.33-5.43)
[2020-01-03 11:59] LABS: Anisocytosis 2+; Blood Morphology Comment NOTED (NOT SEEN); Platelet Estimate DECR; White Blood Cell Scan OK (OK)
[2020-01-03] MEDS ORDERED: INSULIN -REGULAR HUMAN 50 UNIT/0.5 ML ML ONE (12:32)
--- NOTE | 2020-01-03 13:07 | P.PN ---
Subjective Date of Service: 01/03/20 Subjective An 79-year-old AA man, with PMHx of ESRD on HD MWF and saturda at [facility], CHF S/P AICD, afib on Elqiuis, Aortic stenosis , COPD status post tracheostomy pt was admitted lt foot gangrane today no overnight events stable VS S/P Lt BKA HD tomorrow Physical exam general: AAOX3,, obese Neck; Supple, No elevated JVD , Tacheostomy hear: RRR, normal S1,2 no murmur or rub Chest: decreased air entry B/l , no rales or wheezes Abdomen: Soft , Nt Extremities B/l hands edema, Lt BKA A/P End-stage renal disease via lt AVF next HD tomorrow renal dose meds Anemia of chronic disease will start Epogen Hyponatremia will correct with HD lt foot gangrene S/P Lt BKA cont Abx metabolic bone disease cont binders Physical Examination - Vital Signs Temperature: 98.7 F Blood Pressure: 124/59 Pulse: 92 Respirations: 16 Pulse Ox (%): 98
[2020-01-03] MEDS ORDERED: EPOETIN 4,000 UNIT/ML VIAL IV SCH (13:15)
[2020-01-03] MEDS: SEVELAMER CARBONATE 800 MG TABLET PO SCH (16:26)
--- NOTE | 2020-01-03 23:37 | PN ---
Date of Progress Note: 01/03/2020 Subjective: The patient was seen this morning for followup. No new complaints or problems reported by the patient. Lying in bed, not in distress. He is status post left leg below-knee amputation. H emodynamically, he was stable. No longer on Juan-Synephrine this morning when I saw him as this medic ation was discontinued during last time. Objective: Vital Signs: Reviewed. HEENT: Unremarkable. Lungs: Clear to auscultation. Heart: Sounds normal. Abdomen: Soft. Bowel sounds normal. No guarding, rigidity, tenderness, or distention. Extremities: No leg edema. Impression: 1.Gangrene, left foot. 2.Osteomyelitis, left foot. 3.End-stage renal disease, on hemodialysis. 4.Anemia due to chronic kidney disease. Plan: We will continue current medications. Continue current antibiotics. We will continue to foll ow with Dr. Guajardo and I will see him tomorrow for followup. ODESSA/MODL Voice ID: [id number] Report ID: [id number]
[2020-01-04] MEDS: HYDROCORTISONE SUC 100 MG INJ IV SCH ×2 (03:16→09:15)
[2020-01-04] MEDS: METOPROLOL TAR 25 MG TAB PO SCH ×2 (06:00→17:59)
[2020-01-04] MEDS: PANTOPRAZOLE 40MG TABLET PO SCH (06:06)
[2020-01-04 06:07] LABS: Absolute Lymphocytes (CBC) 0.3 K/uL (0.7-4.9); Basophils % 0.1 % (0-1.3); Hematocrit 25.1 % (39.6-49.0); Lymphocytes % 2.2 % (15.3-44.8); MPV 10.3 fL (7.6-11.3); RBC Red Blood Cell Count 2.79 M/uL (4.33-5.43)
[2020-01-04] MEDS: MORPHINE 2 MG/ML SYR IV PRN ×2 (06:14→12:06)
[2020-01-04 06:18] LABS: Magnesium 2.1 mg/dL (1.8-2.4); Potassium 5.1 mmol/L (3.5-5.1)
[2020-01-04] MEDS: INSULIN -REGULAR HUMAN 50 UNIT/0.5 ML ML SQ SCH ×4 (07:30→21:00)
[2020-01-04] MEDS: ALBUTEROL 2.5 MG/3 ML NEB SOL NEB PRN ×2 (08:00→19:45)
[2020-01-04] MEDS: IPRATROPIUM BROM 0.5MG/2.5ML NEB PRN ×2 (08:00→19:45)
[2020-01-04] MEDS: BUDESONIDE 0.5 MG/2 ML NEB IH SCH ×2 (08:00→19:45)
[2020-01-04] MEDS: COLLAGENASE 30 GM OINTMENT TOP SCH (09:00)
[2020-01-04] MEDS: AMIODARONE HCL 200 MG TAB PO SCH (09:00)
[2020-01-04] MEDS: INSULIN GLARGINE 100 UNITS/ML SQ SCH (09:14)
[2020-01-04] MEDS: HEPARIN 5000 UNIT/ML 1 ML VIAL SQ SCH (09:15)
[2020-01-04] MEDS: DOCUSATE NA 100 MG CAP PO SCH ×2 (09:16→20:57)
[2020-01-04] MEDS: ASPIRIN EC 81 MG TAB PO SCH (09:16)
[2020-01-04] MEDS: VITAMIN D 1000 UNIT TAB PO SCH (09:16)
[2020-01-04] MEDS: FLUTICASONE 50MCG NASAL SPRAY NAS SCH (09:16)
[2020-01-04] MEDS: GABAPENTIN 300 MG CAP PO SCH ×2 (09:17→20:57)
[2020-01-04] MEDS: MULTIVITAMINS,THERAPEUT 1 TAB PO SCH (09:17)
[2020-01-04] MEDS: ZINC SULFATE 220 MG CAP PO SCH (09:18)
[2020-01-04] MEDS: allopurinoL 100 MG TAB PO SCH (09:18)
[2020-01-04] MEDS: CEFTRIAXONE/SWI 1gm 1 GM/10 ML SYR IV SCH ×2 (09:19→20:55)
[2020-01-04] MEDS ORDERED: EPOETIN ALFA 10,000 UNIT/ML VIAL IV SCH (10:41)
--- NOTE | 2020-01-04 11:29 | PN ---
Date of Progress Note: 01/04/2020 Subjective: The patient was admitted with infected foot. The patient is status post below-knee ampu tation on the left back in . The patient had dialysis. Objective: Vital Signs: When I saw the patient's blood pressure 122/58, pulse of 77, afebrile. Chest: Faint rales on the left base. Heart: S1 and S2, regular. Abdomen: Soft, nontender. Extremities: No edema. Left below-knee amputation. Laboratory Data: WBC 11.9, H and H 7.8/25.1, platelet 107. Current Medications: The patient on is include breathing treatment, midodrine, Epogen, heparin, nitr oglycerin, metoprolol 25 b.i.d., Tylenol, gabapentin, Renvela, ipratropium, and pantoprazole. Assessment/plan: 1.End-stage renal disease. We will continue the patient on dialysis Thursday, Thursday, and Thursday. The patient is due for dialysis today. We will try to challenge the patient. I am going to place t he patient on sodium module to support the blood pressure and will use low temperature. 2.Foot infection, status post amputation. We will follow up with Surgery. 3.Anemia of chronic kidney disease. Increase the Epogen to 10,000. The patient is going to receive a transfusion today with dialysis. 4.Congestive heart failure. We will try to establish better volume control with dialysis. 5.Hypokalemia, resolved. 6.Chronic obstructive pulmonary disease as by primary. ROLANDO/PATRICK Voice ID: [id number] Report ID: [id number]
--- NOTE | 2020-01-04 12:22 | PN ---
Date of Progress Note: 01/04/2020 Diagnosis: Status post left below-knee amputation. Subjective: The patient is doing well. No complaint. Tolerating diet. Surgical area intact in saud gical site. KAYLAH drain minimal. Right-sided foot, the patient has a wound VAC. Plan: Continue with treatment, wound VAC on the right side, leave dressing intact on the left side a nd we have to let us know how safe he is to eventually go home. DONNA/PATRICK Voice ID: [id number] Report ID: [id number]
[2020-01-04] MEDS: MIDODRINE HCL 5 MG TABLET PO PRN (15:06)
[2020-01-04] MEDS ORDERED: MANNITOL 25% 12.5 GM/50 ML VIAL IV PRN (15:12)
[2020-01-04] MEDS: CALCITROL 0.25 MCG CAP PO SCH (15:31)
[2020-01-04] MEDS ORDERED: ALBUMIN HUMAN 25% 100 ML IV ONE (16:00)
[2020-01-04] MEDS: SEVELAMER CARBONATE 800 MG TABLET PO SCH (17:00)
[2020-01-04 20:16] LABS: Hematocrit 27.8 % (39.6-49.0)
[2020-01-04] MEDS: APIXABAN 2.5 MG TABLET PO SCH (20:57)
[2020-01-04] MEDS: predniSONE 20 MG TAB PO SCH (20:57)
--- NOTE | 2020-01-04 23:56 | PN ---
Date of Progress Note: 01/04/2020 Subjective: The patient was seen this morning for followup. No new complaints or problems reported by patient lying in bed, not in distress. Vital Signs reviewed. Objective: HEENT: Unremarkable. Lungs: Clear to auscultation. Heart: Sounds normal. Abdomen: Soft. Bowel sounds normal. No guarding, rigidity, tenderness, or distention. Extremities: No leg edema. Left leg status post below-knee amputation. Dressing looks clean. Laboratory Data: White count 11.9, hemoglobin 7.8, platelets 107. Sodium 134, potassium 5.1, chlori de 99, bicarb 29, BUN 41, creatinine 5.45, glucose 139. Impression: 1.Gangrene, left foot. 2.Osteomyelitis, left foot. 3.End-stage renal disease, on hemodialysis. 4.Chronic obstructive pulmonary disease. 5.Anemia, due to chronic kidney disease. Plan: We will continue current antibiotic. Order was written to give 1 unit of PRBC blood transfusi on with the next dialysis session and the patient to have hemoglobin and hematocrit 2 hours after the blood transfusion. We will discontinue IV steroid, start him on oral prednisone 20 mg twice a day, and also restart his Eliquis 2.5 mg 2 times a day. I did talk to the patient regarding discharge octavio nning. He lives by himself at home, and with this recent amputation surgery, he will need some extra help at home until he is more independent. It will be beneficial for him to go to nursing home [facility] for a short-term stay and he understands and agrees with that and he would like to go with is one particular facility in the [place], so Social Service consultation was requested and Physical erapy consultation was requested as well. Possible discharge later this week depending on his condition and pending arr angements. ODESSA/MODL Voice ID: [id number] Report ID: [id number]
[2020-01-05] MEDS: MORPHINE 2 MG/ML SYR IV PRN ×2 (03:45→10:17)
--- NOTE | 2020-01-05 04:39 | PN ---
Date of Progress Note: 01/03/2020 Subjective: Mr. Perez was admitted on 12/30/2019. He was seen for cardiac clearance on 01/02/[address] Guajardo performed a left BKA on him. The patient had done well postoperatively. He denied a ny chest pain, shortness of breath, PND, orthopnea, pedal edema, palpitation, or syncope. His rhythm is paced. His blood pressure is 125/60. His blood glucose level is 158. He has a chronic trach co llar. He has multiple other medical problems including congestive heart failure, COPD, diabetes, end -stage renal disease, hypertension, gout. He is status post AICD and pacemaker. He remains on amiod arone, aspirin, inhalers, antibiotics, insulin, and prednisone, and is actually doing very well. Plan: I recommend continuing the present regimen, further treatment, and discharge plan per Dr. Salazar . I will be available for questions if the need arises. HARPAL/PATRICK Voice ID: [id number] Report ID: [id number]
[2020-01-05] MEDS: METOPROLOL TAR 25 MG TAB PO SCH ×2 (05:31→17:20)
[2020-01-05] MEDS: PANTOPRAZOLE 40MG TABLET PO SCH (05:34)
[2020-01-05] MEDS: IPRATROPIUM BROM 0.5MG/2.5ML NEB PRN ×2 (08:08→21:25)
[2020-01-05] MEDS: ALBUTEROL 2.5 MG/3 ML NEB SOL NEB PRN ×2 (08:08→21:25)
[2020-01-05] MEDS: BUDESONIDE 0.5 MG/2 ML NEB IH SCH ×2 (08:08→21:25)
[2020-01-05] MEDS: INSULIN GLARGINE 100 UNITS/ML SQ SCH (08:59)
[2020-01-05] MEDS: INSULIN -REGULAR HUMAN 50 UNIT/0.5 ML ML SQ SCH ×4 (08:59→20:04)
[2020-01-05] MEDS: ASPIRIN EC 81 MG TAB PO SCH (09:00)
[2020-01-05] MEDS: MULTIVITAMINS,THERAPEUT 1 TAB PO SCH (09:00)
[2020-01-05] MEDS: DOCUSATE NA 100 MG CAP PO SCH ×2 (09:00→20:30)
[2020-01-05] MEDS: COLLAGENASE 30 GM OINTMENT TOP SCH (09:00)
[2020-01-05] MEDS: VITAMIN D 1000 UNIT TAB PO SCH (09:00)
[2020-01-05] MEDS: ZINC SULFATE 220 MG CAP PO SCH (09:00)
[2020-01-05] MEDS: CEFTRIAXONE/SWI 1gm 1 GM/10 ML SYR IV SCH ×2 (09:00→20:30)
[2020-01-05] MEDS: AMIODARONE HCL 200 MG TAB PO SCH (09:01)
[2020-01-05] MEDS: GABAPENTIN 300 MG CAP PO SCH ×2 (09:01→20:30)
[2020-01-05] MEDS: predniSONE 20 MG TAB PO SCH ×2 (09:02→20:30)
[2020-01-05] MEDS: allopurinoL 100 MG TAB PO SCH (09:02)
[2020-01-05] MEDS: FLUTICASONE 50MCG NASAL SPRAY NAS SCH (09:02)
[2020-01-05] MEDS: APIXABAN 2.5 MG TABLET PO SCH ×2 (09:02→20:30)
--- NOTE | 2020-01-05 12:31 | PN ---
Date of Progress Note: 01/05/2020 Subjective: The patient was admitted with infected foot, status post left below-knee amputation. Th e patient tolerated the procedure. The patient is scheduled for dialysis. Physical Examination: Vital Signs: When I saw the patient, blood pressure 129/59, pulse of 76. Chest: Faint rales in the base. Heart: S1, S2. Regular. Abdomen: Soft, nontender. Extremities: Left below-knee amputation, dressing on the right foot. Laboratory Data: H and H 8.7/27.8. Sodium 134, potassium 5.1, bicarb 29, BUN 41, creatinine 5.4, ca lcium 8.4, magnesium 2.1. Current Medications: The patient on are include; 1.Aspirin. 2.Ceftriaxone. 3.Vancomycin. 4.Midodrine. 5.Epogen. 6.Heparin. 7.Amiodarone. 8.Metoprolol 25 b.i.d. 9.Nitroglycerin. 10.Gabapentin. 11.Renvela. 12.Pantoprazole. 13.Prednisone. Assessment And Plan: 1.End-stage renal disease. We will continue the patient on dialysis as per his schedule. The patie nt is going to be due for dialysis tomorrow. Then, we are going to switch him to TTS. 2.Hypertension, controlled, optimal, currently on the lower side. The patient required midodrine fo r supportive blood pressure. We will continue with sodium module and we will follow up. 3.Anemia of chronic kidney disease. Continue JAIRO. Status post transfusion. 4.Infected foot, status post below-knee amputation. Follow up with PT/OT. Continue current antibio tic. ROLANDO/GRICELDAL Voice ID: [id number] Report ID: [id number]
[2020-01-05] MEDS: SEVELAMER CARBONATE 800 MG TABLET PO SCH (17:07)
--- NOTE | 2020-01-05 20:54 | PN ---
Date of Progress Note: 01/04/2020 Subjective: The patient was seen this morning for followup. No new complaints or problems reported by him. Lying in bed, not in distress. Objective: Vital Signs: Reviewed. HEENT: Examination unremarkable. Lungs: Clear to auscultation. Heart: Sounds normal. Abdomen: Soft. Bowel sounds normal. No guarding, rigidity, tenderness, or distention. Extremities: No leg edema. Impression: 1.Gangrene, left foot. 2.Osteomyelitis, left foot. 3.End-stage renal disease, on hemodialysis. 4.Anemia, due to chronic kidney disease. 5.Chronic obstructive pulmonary disease. 6.Chronic systolic congestive heart failure. 7.Chronic anticoagulation therapy. Plan: We will continue Eliquis. Continue to follow with uke operator. Continue to follow with Dr. Guajardo and Social Service is assisting the patient with shelter facility placement, and hop efully, we can discharge him to such facility this week if arrangements get completed and if okay wit h Dr. Guajardo. He is having pain in his left leg, and we will start him on gabapentin. ODESSA/MODL Voice ID: [id number] Report ID: [id number]
[2020-01-06] MEDS: METOPROLOL TAR 25 MG TAB PO SCH ×2 (05:51→17:11)
[2020-01-06] MEDS: PANTOPRAZOLE 40MG TABLET PO SCH (05:52)
[2020-01-06] MEDS: BUDESONIDE 0.5 MG/2 ML NEB IH SCH ×2 (08:04→19:58)
[2020-01-06] MEDS: COLLAGENASE 30 GM OINTMENT TOP SCH (09:00)
[2020-01-06] MEDS: INSULIN -REGULAR HUMAN 50 UNIT/0.5 ML ML SQ SCH ×4 (09:12→21:48)
[2020-01-06] MEDS: INSULIN GLARGINE 100 UNITS/ML SQ SCH (09:12)
[2020-01-06] MEDS: MULTIVITAMINS,THERAPEUT 1 TAB PO SCH (09:14)
[2020-01-06] MEDS: allopurinoL 100 MG TAB PO SCH (09:14)
[2020-01-06] MEDS: APIXABAN 2.5 MG TABLET PO SCH ×2 (09:14→21:47)
[2020-01-06] MEDS: AMIODARONE HCL 200 MG TAB PO SCH (09:14)
[2020-01-06] MEDS: predniSONE 20 MG TAB PO SCH (09:15)
[2020-01-06] MEDS: ASPIRIN EC 81 MG TAB PO SCH (09:15)
[2020-01-06] MEDS: GABAPENTIN 300 MG CAP PO SCH ×2 (09:15→21:47)
[2020-01-06] MEDS: VITAMIN D 1000 UNIT TAB PO SCH (09:15)
[2020-01-06] MEDS: DOCUSATE NA 100 MG CAP PO SCH ×2 (09:15→21:47)
[2020-01-06] MEDS: CEFTRIAXONE/SWI 1gm 1 GM/10 ML SYR IV SCH ×2 (09:16→21:47)
[2020-01-06] MEDS: ZINC SULFATE 220 MG CAP PO SCH (09:16)
[2020-01-06] MEDS: FLUTICASONE 50MCG NASAL SPRAY NAS SCH (09:17)
[2020-01-06] MEDS: CODEINE 30MG/APAP 300MG TAB PO PRN (09:26)
--- NOTE | 2020-01-06 09:56 | P.PN ---
Subjective Date of Service: 01/06/20 Subjective An 79-year-old AA man, with PMHx of ESRD on HD MWF and saturda at [facility], CHF S/P AICD, afib on Elqiuis, Aortic stenosis , COPD status post tracheostomy pt was admitted lt foot gangrane today had HD yesterday Temp 96.1, will monitor PT/OT HD tomorrow Physical exam general: AAOX3,, obese Neck; Supple, No elevated JVD , Tacheostomy hear: RRR, normal S1,2 no murmur or rub Chest: decreased air entry B/l , no rales or wheezes Abdomen: Soft , Nt Extremities B/l hands edema, Lt BKA A/P End-stage renal disease via lt AVF next HD tomorrow renal dose meds Anemia of chronic disease cont Epogen lt foot gangrene S/P Lt BKA cont Abx metabolic bone disease cont binders Physical Examination - Vital Signs Temperature: 96.1 F Blood Pressure: 111/63 Pulse: 62 Respirations: 16 Pulse Ox (%): 98
--- NOTE | 2020-01-06 10:16 | PN ---
Date of Progress Note: 01/06/2020 Subjective: The patient was seen this morning for followup. No new complaints, problems reported by patient. Lying in bed, not in any distress. Denies any new complaints except continues to have mikey oing pain in his left leg at the surgery site where he had left leg below-knee amputation. Objective: Vital Signs: Reviewed. HEENT: Examination unremarkable. Lungs: Clear to auscultation. Heart: Sounds normal. Abdomen: Soft. Bowel sounds normal. No guarding, rigidity, tenderness, or distention. Extremities: No leg edema. Impression: 1.Left foot gangrene. 2.Osteomyelitis, left foot. 3.End-stage renal disease, on hemodialysis. 4.Anemia due to chronic kidney disease. 5.Chronic anticoagulation therapy. Plan: We will continue current medications, continue current antibiotic. We will go ahead and gonzález valee current gabapentin 300 mg twice a day. We will add Tylenol with Codeine 1 tablet every 6 hours a s needed for pain. He continues to receive morphine on a p.r.n. basis for pain. I did review Social Service note and it appears that the facility where the patient wanted to go is not going to be able to accept him because of some staffing issues so Social Service will assist patient to go to another facility. I did talk to Dr. Guajardo's and from his point of view the patient can be discharged at any time whenever the arrangements gets made and Dr. Guajardo will go ahead and [facility] and I will continue to follow up wh ile he is here in the hospital. ODESSA/MODL Voice ID: [id number] Report ID: [id number]
[2020-01-06] MEDS: MIDODRINE HCL 5 MG TABLET PO PRN (13:33)
[2020-01-06] MEDS: CALCITROL 0.25 MCG CAP PO SCH (16:55)
[2020-01-06] MEDS: SEVELAMER CARBONATE 800 MG TABLET PO SCH (16:56)
[2020-01-06] MEDS ORDERED: ALBUMIN HUMAN 25% 50 ML IV ONE (17:00)
[2020-01-06] MEDS ORDERED: NA CHLORIDE 0.9% 250 ML ONE (21:56)
[2020-01-06] MEDS ORDERED: VANCOMYCIN 1 GM/VIAL ONE (22:30)
[2020-01-06] MEDS ORDERED: NA CHLORIDE 0.9% 250 ML IV ONE (23:00)
[2020-01-06] MEDS ORDERED: VANCOMYCIN 500 MG/VIAL IVPB ONE (23:00)
[2020-01-07] MEDS: METOPROLOL TAR 25 MG TAB PO SCH ×2 (06:00→18:00)
[2020-01-07] MEDS: PANTOPRAZOLE 40MG TABLET PO SCH (06:01)
[2020-01-07] MEDS: INSULIN -REGULAR HUMAN 50 UNIT/0.5 ML ML SQ SCH ×4 (07:30→21:22)
[2020-01-07] MEDS: FLUTICASONE 50MCG NASAL SPRAY NAS SCH (09:00)
[2020-01-07] MEDS: VITAMIN D 1000 UNIT TAB PO SCH (09:00)
[2020-01-07] MEDS: COLLAGENASE 30 GM OINTMENT TOP SCH (09:00)
[2020-01-07] MEDS: MULTIVITAMINS,THERAPEUT 1 TAB PO SCH (09:43)
[2020-01-07] MEDS: INSULIN GLARGINE 100 UNITS/ML SQ SCH (09:43)
[2020-01-07] MEDS: predniSONE 20 MG TAB PO SCH (09:44)
[2020-01-07] MEDS: DOCUSATE NA 100 MG CAP PO SCH ×2 (09:44→20:09)
[2020-01-07] MEDS: APIXABAN 2.5 MG TABLET PO SCH ×2 (09:44→20:09)
[2020-01-07] MEDS: GABAPENTIN 300 MG CAP PO SCH ×2 (09:44→20:09)
[2020-01-07] MEDS: ASPIRIN EC 81 MG TAB PO SCH (09:45)
[2020-01-07] MEDS: ZINC SULFATE 220 MG CAP PO SCH (09:45)
[2020-01-07] MEDS: AMIODARONE HCL 200 MG TAB PO SCH (09:45)
[2020-01-07] MEDS: allopurinoL 100 MG TAB PO SCH (09:45)
[2020-01-07] MEDS: CEFTRIAXONE/SWI 1gm 1 GM/10 ML SYR IV SCH ×2 (09:46→20:09)
[2020-01-07] MEDS: BUDESONIDE 0.5 MG/2 ML NEB IH SCH ×2 (11:15→20:00)
[2020-01-07] MEDS: SEVELAMER CARBONATE 800 MG TABLET PO SCH (16:33)
[2020-01-08] MEDS: CODEINE 30MG/APAP 300MG TAB PO PRN (00:32)
[2020-01-08] MEDS: METOPROLOL TAR 25 MG TAB PO SCH (05:37)
[2020-01-08] MEDS: PANTOPRAZOLE 40MG TABLET PO SCH (05:38)
[2020-01-08] MEDS: INSULIN -REGULAR HUMAN 50 UNIT/0.5 ML ML SQ SCH ×3 (07:30→16:19)
[2020-01-08] MEDS: BUDESONIDE 0.5 MG/2 ML NEB IH SCH (07:49)
[2020-01-08] MEDS: INSULIN GLARGINE 100 UNITS/ML SQ SCH (08:30)
[2020-01-08 08:31] LABS: Absolute Lymphocytes (CBC) 2.3 K/uL (0.7-4.9); Basophils % 0.3 % (0-1.3); Hematocrit 32.3 % (39.6-49.0); Lymphocytes % 15.7 % (15.3-44.8); MPV 10.4 fL (7.6-11.3); RBC Red Blood Cell Count 3.49 M/uL (4.33-5.43)
[2020-01-08] MEDS: ASPIRIN EC 81 MG TAB PO SCH (08:31)
[2020-01-08] MEDS: GABAPENTIN 300 MG CAP PO SCH (08:31)
[2020-01-08] MEDS: MULTIVITAMINS,THERAPEUT 1 TAB PO SCH (08:31)
[2020-01-08] MEDS: APIXABAN 2.5 MG TABLET PO SCH (08:31)
[2020-01-08] MEDS: allopurinoL 100 MG TAB PO SCH (08:31)
[2020-01-08] MEDS: AMIODARONE HCL 200 MG TAB PO SCH (08:31)
[2020-01-08] MEDS: ZINC SULFATE 220 MG CAP PO SCH (08:31)
[2020-01-08] MEDS: VITAMIN D 1000 UNIT TAB PO SCH (08:31)
[2020-01-08] MEDS: predniSONE 20 MG TAB PO SCH (08:32)
[2020-01-08] MEDS: FLUTICASONE 50MCG NASAL SPRAY NAS SCH (08:33)
[2020-01-08] MEDS: DOCUSATE NA 100 MG CAP PO SCH (08:33)
[2020-01-08] MEDS: COLLAGENASE 30 GM OINTMENT TOP SCH (08:34)
[2020-01-08 08:38] LABS: Potassium 5.2 mmol/L (3.5-5.1)
[2020-01-08] MEDS: CEFTRIAXONE/SWI 1gm 1 GM/10 ML SYR IV SCH (09:00)
[2020-01-08 09:38] VITALS: TEMP 96.9
[2020-01-08] MEDS ORDERED: SOD POLYSTYREN SUL 15 GM/60 ML UCUP PO ONE (09:43)
[2020-01-08 09:56] VITALS: O2SAT 97
[2020-01-08] MEDS: PIPER/TAZO/NS 2.25gm 2.25 GM/50 ML BAG IVPB SCH ×2 (11:04→16:21)
--- NOTE | 2020-01-08 12:05 | PN ---
Date of Progress Note: 01/07/2020 Chief Complaint: End-stage renal disease, on dialysis. Subjective: The patient has history of congestive heart failure and COPD status post AICD. He is on Eliquis for atrial fibrillation. He has a complicated history of systolic and cardiac dysfunction, aortic stenosis. He is dialysis dependent. He has obstructive sleep apnea and status post tracheost kerri. He had left foot gangrene. He has been dialyzed 4 times per week to control volemia and conges tive heart failure. Today, he is due to dialysis and dialysis is scheduled for tomorrow. The patien t is stable. He does not have PND or orthopnea. Review of Systems: Denies fever or chills. Physical Examination: Lungs: Clear to auscultation bilaterally. Heart: S1, S2. Abdomen: Soft, benign. Extremities: Slight edema present. Left BKA. Impression And Plan: 1.End-stage renal disease. Next dialysis tomorrow. Continue p.o. fluid restriction, low-sodium t. 2.Congestive heart failure, systolic and diastolic dysfunction. Monitor blood pressure. The patien t has history of intradialytic hypotension. Continue midodrine for blood pressure support. 3.Left foot gangrene, status post left BKA. Continue antibiotics. 4.Renal osteodystrophy. Continue renal diet and binders. Monitor phosphorus level. EB/MODL Voice ID: [id number] Report ID: [id number]
--- NOTE | 2020-01-08 13:59 | PN ---
Date of Progress Note: 01/07/2020 Subjective: The patient was seen for followup in the morning. No new complaints or problems reporte d and he reports that his leg pain is under better control with current medications. Denies any ches t pain, shortness of breath, nausea, vomiting. Objective: Vital Signs: Reviewed. HEENT: Unremarkable. Lungs: Clear to auscultation. Heart: Sounds normal. Abdomen: Soft. Bowel sounds normal. No guarding, rigidity, tenderness, distention. Extremities: No leg edema on the right leg, left leg status post below-knee amputation. Impression: 1.End-stage renal disease, on hemodialysis. 2.Left foot osteomyelitis. 3.Left foot gangrene, status post below-knee amputation. 4.Anemia due to chronic kidney disease. Plan: We will continue current medication. Continue current antibiotics with following up with neph rologist for dialysis and I will see him tomorrow for followup. Continue current pain medication and gabapentin. ODESSA/MODL Voice ID: [id number] Report ID: [id number]
[2020-01-08] MEDS: CALCITROL 0.25 MCG CAP PO SCH (16:19)
[2020-01-08] MEDS: SEVELAMER CARBONATE 800 MG TABLET PO SCH (16:19)
[2020-01-08 17:07] VITALS: BP 115/55
--- NOTE | 2020-01-08 21:30 | DS ---
Date of Discharge: 01/08/2020 Subjective: The patient was seen this morning for followup. Lying in bed. Not in distress. Objective: Vital Signs: Reviewed. HEENT: Unremarkable. Lungs: Clear to auscultation. Heart: Sounds normal. Abdomen: Soft. Bowel sounds normal. No guarding, rigidity, tenderness, or distention. Extremities: No leg edema on the right leg. Left leg status post below-knee amputation. Final Diagnoses: 1.Osteomyelitis, left foot. 2.Gangrene, left foot. 3.Left leg below-knee amputation. 4.Anemia due to chronic kidney disease. 5.End-stage renal disease, on hemodialysis. 6.Chronic anticoagulation therapy. 7.Chronic obstructive pulmonary disease. 8.Chronic systolic congestive heart failure. 9.Paroxysmal atrial fibrillation. 10.Chronic steroid therapy. Discharge Medications And Instructions: Continue all current medications. See copy of transfer orde r for details. Hospital Course: An 79-year-old male patient admitted to the hospital after he came into the emergen cy room. Please see dictated H and P for more information. The patient was evaluated in the ER, was admitted to the hospital. He has chronic wound on the right leg and has a wound VAC present and thi s leg wound has been there for last several months. He also had an amputation of the left foot secon d toe in October of this year and during this hospital stay, we noted that he has gangrene of great toe, third toe, and fourth toe on the left side. Dr. Guajardo was consulted from General Surgery, who corona s been following up on outpatient basis for the patient's wound problem and he recommended below-knee amputation during this admission as well as on outpatient basis prior to this admission. The patien t was agreeable and Dr. Guajardo took him to surgery. Postoperatively, he remained stable except he required ICU care for less than 24 hours because his blood pressure was low, that was noted and was s tarted on Juan-Synephrine drip, which was continued after surgery and we were able to discontinue with in 10 to 12 hours and then he was able to maintain his adequate blood pressure. Subsequently, we bro ught him to the room. He remained stable there. Pain medication was given, gabapentin was given, an d Dr. Guajardo has given his okay to discharge him and social media marketing manager will make arrangements. The su rothman lives at home by himself and he is not able to return back home right away, so we recommended [facility] home placement for intermediate therapy and he was agreeable and he wanted to go to this one particular location and Social Service started communicating with that facility and that facility wa s not accepting any new patient because of staffing issue, so [facility] and the patient was agreeable to go to that facility, and Social Service started communica ting with this facility. Meanwhile now as of last 2 days, we are having problem in our community wit h amoeba in city's water supply, so with that in mind and the patient's dialysis needs today, nephrol ogist recommended for the patient to be transferred to another facility and I just received a phone c all and details were discussed with this hospitalist and the patient will be transferred via [facility] today. The patient was made aware of this plan this morning. The patient was receiving IV vancomycin and IV ceftriaxone from the time of admission, but after today's blood work, I have discon tinued ceftriaxone and started him on Zosyn. We will continue vancomycin. Laboratory Data: Last white count today 14.4, hemoglobin 9.7, platelets 185. Sodium 137, potassium 5.2, chloride 99, bicarb 32, BUN 55, creatinine 4.98, glucose 126. ODESSA/MODL Voice ID: [id number] Report ID: [id number]
--- NOTE | 2020-01-08 22:21 | PN ---
Date of Progress Note: 01/08/2020 Chief Complaint: End-stage renal disease. Subjective: The patient has history of congestive heart failure with diastolic and systolic dysfunct ion. The patient was treated with Kayexalate to control mild hyperkalemia. The patient needs to hav e dialysis as soon as possible and will be transferred for higher level of care. Review of Systems: The patient denies PND or orthopnea. Physical Examination: Lungs: Diminished breath sounds at bases. Heart: S1, S2. Abdomen: Soft, benign. Extremities: Slight edema. Impression And Plan: 1.End-stage renal disease. Dialysis will be done as soon as possible. 2.Borderline hyperkalemia. Continue low-potassium diet and continue Kayexalate. 3.Hypertension. Blood pressure controlled. 4.History of intradialytic hypotension. Continue midodrine as needed. ALEXI/MODSheridan Voice ID: [id number] Report ID: [id number]
== END 2020-01-08 17:17 | disposition short-term general hospital (02) | DRG 853 ==
LOC: ER 17:46 → ERHOLD 22:24 → 2ND 12-31 00:46 → ERHOLD 01-02 15:50 → 2ND 01-03 14:07
PROVIDERS: ADMIT Internal Medicine; ATTEND Internal Medicine
PROC: 5A1D70Z Performance of Urinary Filtration, Intermittent, Less than 6 Hours Per Day (ICD-10-PCS; 2019-12-31)
PROC: 0Y9G0ZZ Drainage of Left Knee Region, Open Approach (ICD-10-PCS; 2020-01-02)
PROC: 0Y6J0Z3 Detachment at Left Lower Leg, Low, Open Approach (ICD-10-PCS; principal; 2020-01-02 09:15)
PROC: 30233N1 Transfusion of Nonautologous Red Blood Cells into Peripheral Vein, Percutaneous Approach (ICD-10-PCS; 2020-01-04)
DX: A41.9 Sepsis, unspecified organism (principal); N18.6 End stage renal disease; R65.21 Severe sepsis with septic shock; E11.52 Type 2 diabetes mellitus with diabetic peripheral angiopathy with gangrene; I50.22 Chronic systolic (congestive) heart failure; M86.8X7 Other osteomyelitis, ankle and foot; I96 Gangrene, not elsewhere classified; I13.2 Hypertensive heart and chronic kidney disease with heart failure and with stage 5 chronic kidney disease, or end stage renal disease; E87.1 Hypo-osmolality and hyponatremia; E11.69 Type 2 diabetes mellitus with other specified complication; J44.9 Chronic obstructive pulmonary disease, unspecified; E11.22 Type 2 diabetes mellitus with diabetic chronic kidney disease; K21.9 Gastro-esophageal reflux disease without esophagitis; I25.10 Atherosclerotic heart disease of native coronary artery without angina pectoris; D63.1 Anemia in chronic kidney disease; E87.6 Hypokalemia; N25.0 Renal osteodystrophy; D69.6 Thrombocytopenia, unspecified; G47.33 Obstructive sleep apnea (adult) (pediatric); J30.9 Allergic rhinitis, unspecified; I35.0 Nonrheumatic aortic (valve) stenosis; E78.5 Hyperlipidemia, unspecified; E21.1 Secondary hyperparathyroidism, not elsewhere classified; I48.0 Paroxysmal atrial fibrillation; E87.5 Hyperkalemia; Z93.0 Tracheostomy status; Z91.013 Allergy to seafood; Z89.422 Acquired absence of other left toe(s); Z95.810 Presence of automatic (implantable) cardiac defibrillator; Z79.01 Long term (current) use of anticoagulants; Z91.048 Other nonmedicinal substance allergy status; Z99.2 Dependence on renal dialysis; Z88.5 Allergy status to narcotic agent; Z60.2 Problems related to living alone; Z20.828 Contact with and (suspected) exposure to other viral communicable diseases
CPT/HCPCS: 36415; 71045; 80048; 80076; 80202; 82150; 82330; 82550; 82553; 82805; 82947; 83036; 83605; 83690; 83735; 84100; 84145; 84443; 84484; 85014; 85018; 85025; 85610; 85730; 86850; 86900; 86901; 87040; 88307; 90935; 93005; 94640; 96361; 96365; 96367; 96375; 97110; 97112; 97161; 97530; 99285; J0171; J0610; J0696; J0744; J1644; J1720; J1815; J2150; J2270; J2370; J2704; J2920; J3010; J3370; J3590; J7030; J7040; J7050; J7060; J7512; P9016; P9047; Q5105; U0002